=== PATIENT | female | born 1945 | race Caucasian/White ===

== ENCOUNTER 2016-09-15 19:28 | Inpatient (IN) | payer OTHER ==
[~2016-09-15] VITALS: Ht 165.1 cm; Wt 80.7 kg
[2016-09-15 21:43] VITALS: PULSE 68
[2016-09-15 21:48] VITALS: BMI 20.4
[2016-09-15 22:20] VITALS: BP 156/65; RESP 16
[2016-09-15] MEDS ORDERED: NYST1000 PO (22:51)
[2016-09-15] MEDS ORDERED: METR500T PO (22:51)
[2016-09-15] MEDS ORDERED: OXYC-209 PO (22:51)
[2016-09-15] MEDS ORDERED: LEVO500S PO (22:51)
[2016-09-16] VITALS (12 sets, daily range): BP systolic 117–173; BP diastolic 59–76; PULSE 70–86; RESP 16–20
[2016-09-16] MEDS ORDERED: NACL 0.9% 3 ML SYG IV SCH (00:30)
[2016-09-16] MEDS: SOD CHLORIDE 0.9% 1,000 ML IV SCH ×3 (00:52→22:58)
[2016-09-16 01:25] LABS: ADD SCAN DIFF NO
[2016-09-16 01:26] LABS: ABNORMAL IP MESSAGE 1; BASOPHILS % 0.7 % (0.0-2.0); HEMATOCRIT 30.5 % (37.0-47.0); HEMOGLOBIN 9.7 g/dl (12.0-16.0); LYMPHOCYTES # 0.6 10^3/ul (0.8-2.9); MEAN CORPUSCULAR HEMOGLOBIN 25.9 pg (29.0-33.0); MEAN CORPUSCULAR HGB CONC 31.8 g/dl (32.0-37.0); MEAN CORPUSCULAR VOLUME 81.6 fl (82.0-101.0); MEAN PLATELET VOLUME 8.8 fl (7.4-10.4); MONOCYTE # 0.5 10^3/ul (0.3-0.9); MONOCYTES % 12.8 % (0.0-11.0); NEUTROPHIL # 3.1 10^3/ul (1.6-7.5); NEUTROPHILS % 72.3 % (39.0-77.0); PLATELET COUNT 472 10^3/UL (140-415); RED BLOOD COUNT 3.74 10^6/ul (4.20-5.40); RED CELL DISTRIBUTION WIDTH 13.6 % (11.5-14.5); WHITE BLOOD COUNT 4.2 10^3/ul (4.8-10.8)
[2016-09-16 01:46] LABS: PARTIAL THROMBOPLASTIN TIME 32.3 Sec (25.0-35.0)
[2016-09-16 01:48] LABS: ALANINE AMINOTRANSFERASE 28 IU/L (13-69); ALBUMIN 2.7 g/dl (3.3-4.9); ALKALINE PHOSPHATASE 54 IU/L (42-121); ANION GAP 15 (8-16); ASPARTATE AMINO TRANSFERASE < 8 IU/L (15-46); BILIRUBIN,INDIRECT 0.1 mg/dl (0-1.1); BILIRUBIN,TOTAL 0.1 mg/dl (0.2-1.3); BLOOD UREA NITROGEN 9 mg/dl (7-20); CALCIUM 8.1 mg/dl (8.4-10.2); CARBON DIOXIDE 29 mmol/L (21-31); CHLORIDE 96 mmol/L (97-110); CREATININE 0.49 mg/dl (0.44-1.00); GLUCOSE 90 mg/dl (70-220); SODIUM 137 mmol/L (135-144); TOTAL PROTEIN 5.7 g/dl (6.1-8.1)
[2016-09-16 01:49] LABS: PT RATIO 1.5
[2016-09-16 01:53] LABS: POTASSIUM 2.9 mmol/L (3.5-5.1)
[2016-09-16] MEDS: POTASSIUM CHLORIDE 250 ML IVPB SCH ×2 (03:39→08:30)
[2016-09-16] MEDS: morphine 2 MG INJ IV PRN (03:48)
--- NOTE | 2016-09-16 04:21 | HP ---
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 Please see CT abdomen pelvis report for further details. At the current time will keep patient n.p.o. Will provide IV fluid hydration. Consult general surgery. Will provide IV antibiotics of Levaquin and Flagyl at this time. Patient is allergic to penicillins. IV pain control medications. #2 history of diverticulitis: As per patient she received a pigtail catheter secondary to her diverticulitis. Await general surgery recommendations. #3 DVT and GI prophylaxis: SCDs, Protonix Further treatment strategy will be implemented as per the clinical course Problems: HPI/ROS Admit Date/Time Admit Date/Time Sep 15, 2016 at 21:35 Hx of Present Illness Chief complaint: Abdominal pain This is a 70-year-old female who presented to the ED at [facility] complaining of abdominal pain. Patient is now postop day 3 of pigtail drain for diverticulitis with intramural axis is done at [facility]. She was presenting with stool coming from her pigtail catheter earlier in the morning on 09/15/2016. She had worsening abdominal pain and nonbilious vomiting. Her pain at that time was moderate to severe throughout the abdomen, nonradiating no fevers no dysuria and her last bowel movement was earlier that day no diarrhea no blood. Upon my examination currently at the bedside, patient does state that she has left-sided abdominal pain. She was hesitant to receive any IV pain medications as she was worried about getting addicted. After discussion regarding the pain medication she was agreeable to having them in small doses. Allergies: Penicillins Medications: See PETE CLEMENTS Const: As per HPI Eyes : No pain discharge or redness or change in visual acuity ENT: No pain, sore throat, congestion, congestion, dysphagia or discharge Respiratory: No shortness of breath, cough, sputum, wheezing, or pleuritic pain Cardiovascular: No chest pain, palpitation, PND, or edema GI : As per HPI Genitourinary: As per HPI Musculoskeletal: No joint pain, back pain, neck pain, restricted range of motion in neck or joints Skin: No rash, bruising or hives Neuro: No headache, dizziness, syncope, seizure, focal weakness Endocrine: No polyuria, polydipsia, temperature intolerance Psych: No hallucination, depression, anxiety or suicidal ideation PMH/Family/Social Past Medical History Diverticulitis, brain hemorrhage Past Surgical History Pigtail catheter, MACHINE [employer] shunt Family History Significant Family History: no pertinent family hx Social History Alcohol Use: none Smoking Status: Unknown if ever smoked Drug Use: none Exam/Review of Systems Vital Signs Vitals Vital Signs Date Time Temp Pulse Resp B/P Pulse Ox O2 Delivery O2 Flow Rate FiO2 09/16/16 04:04 72 09/16/16 00:05 98.7 16 131/63 97 Intake and Output 09/15/16 09/15/16 09/16/16 15:00 23:00 07:00 Output Total 5 ml Balance -5 ml Exam Exam General: Patient is well-developed female in mild distress from pain on palpation of the lower abdomen. HEENT: Atraumatic, normocephalic. The pupils are equal, round and reactive. Extraocular motor are intact Neck: Supple with full range of motion. No rigidity or meningismus Chest: Nontender Lungs: Clear to auscultation bilaterally no crackles rales or wheezing Heart: Normal S1-S2, Regular rhythm and rate. No overt murmur appreciated Abdomen: Left lower quadrant pigtail catheter and abdomen with stool seeping through opening in the skin, no bleeding, tenderness to palpation of the abdomen around the pigtail catheter Extremities: Normal to inspection, no edema no cyanosis Neurologic: Normal mental status, speech normal, cranial nerves II through XII are intact, motor and sensory are intact, no focal weakness Additional Comments Her EKG showed normal sinus rhythm with no evidence of ischemia or arrhythmia as per the ED physician at [facility] CT of the abdomen pelvis impression: #1 trace left pleural effusion #2 tiny left hepatic low-density lesion #3 possible narrowing of the sigmoid colon, with distention of the colon proximal to the site, as described in the CT scan. Correlation and follow-up care recommended. #4 hiatal hernia with partial intrathoracic extension of the stomach #5 minimal posterior pelvic free fluid indeterminant densities also noted in the central pelvis with associated drainage catheter as described above. Of note there is also fluid and gaseous distention of the colon identified from the cecum to the sigmoid segments, with relative narrowing or decompression along the sigmoid segment. Query possible sigmoid colonic mass, stricture or other similar etiology. Please see full CT report in the patient's chart. Labs Result Diagram: 09/16/16 0055 09/16/16 005 Medications Medications Current Medications Morphine Sulfate 2 mg 2 mg Q4H PRN IV PAIN Last administered on 09/16/16 03:48 ; Admin Dose 2 MG; Start 09/15/16 at 23:30 Sodium Chloride (NS) 1,000 ml @ 70 mls/hr [id number] IV Last administered on 09/16 00:52; Admin Dose 70 MLS/HR; Start 09/16/16 at 00:19 Ondansetron HCl (Zofran Inj) 4 mg Q6H PRN IV NAUSEA AND/OR VOMITING; Start 12/24 at 00:30 Acetaminophen (Tylenol Tab) 650 mg Q6H PRN PO PAIN LEVEL 1-3 OR FEVER; Start at 00:30 Pantoprazole 40 mg 40 mg DAILY@06 IV ; Start 09/16/16 at 06:00 Potassium Chloride (KCl 40 MEQ/250 ML NS) 250 ml @ 62.5 mls/hr Q4H IVPB Last administered on 09/16/16 03:39; Admin Dose 62.5 MLS/HR; Start 09/16/16 at 02:00 ; Stop 09/16/16 at 09:59 MAEGAN HPAM Sep 16, 2016 04:21
[2016-09-16] MEDS ORDERED: LEVOFLOXACIN 750MG/D5W (PMX) 150 ML IVPB ONE (04:30)
[2016-09-16] MEDS: PANTOPRAZOLE 40 MG INJ IV SCH (05:10)
[2016-09-16 06:01] LABS: INR 1.58
[2016-09-16] MEDS: metroNIDAZOLE 500 MG/NS (PMX) 100 ML IVPB SCH ×4 (06:46→22:58)
[2016-09-16] MEDS: ACETAMINOPHEN 325 MG TAB PO PRN ×3 (09:51→22:58)
--- NOTE | 2016-09-16 10:37 | CONS ---
Date/Time of Note Date/Time of Note DATE: 09/16/16 TIME: 10:31 Assessment/Plan Assessment/Plan Additional Assessment/Plan [facility] SUBSEQUENT INPATIENT CONSULTATION NOTE DATE OF CONSULTATION: 09/16/2016 PLACE OF SERVICE: [facility] fifth [facility] IMPRESSION AND PLAN: Patient is a very pleasant 70 y/o lady well known to me from hospitalization at [facility] on 09/07/16 for perforated sigmoid colon with contained abscess, s/p perc drain placement, medical stabilization and d/c home with plans to follow up as an outpatient, admitted as transfer from [facility] for abdominal pain and drainage of stool around the drain. Suspect drain blockage since non-con CT abd/pelvis [facility] 09/15/16 showed the drain to be in an adequate position. Note [employer] shunt appears to have also migrated to the pelvis (new since initial CT at [facility]). The patient is fortunately stable enough that she does not require any immediate surgical attention, but she certainly should stay in-house and get intravenous antimicrobials and undergo Interventional Radiology image guided drain interrogation as above. I explained the rationale behind my recommendations very carefully to the patient ( not in the room), including re-review of the spectrum of disease that diverticulitis entails with an emphasis on the potential need for urgent or emergent operation if the above is not performed. I also emphasized the importance of controlling this issue with antibiotics and drainage or perhaps if surgery given the presence of her ventriculoperitoneal shunt in the right upper quadrant. I do not believe that there is undue risk of this being infected if we were able to do intravenous antimicrobials and we have a working drain. I answered all the patient's questions to the best of my ability, and she appeared to understand and agreed with the plan. Thank you again for allowing us to participate in the care of this very pleasant lady and her wonderful family. If there are any questions, please feel free to contact me at [phone]. UPDATED CLINICAL SUMMARY: A very pleasant 70-year-old lady without significant known past medical history other than a [employer] shunt placement many years ago which she did not remember or report, presenting with what appears to be a sigmoid colon abscess or pericolonic abscess, which seemed to be a complication of diverticulitis. S/p IR drainage 09/09/16 with removal of 20 cc pus and placement of a 10 Fr. pigtail catheter at [facility]. D/c home 09/12/16. Re-presented to [place] [facility] 09/15/16 after being diverted from [facility] (due to internal disaster diversion) where CT was done showing adequate placement of the percutaneous drain near the sigmoid colon and decompressed sigmoid colon abscess, no obvious free air or significant spillage of stool in the abdominal cavity, and incidental finding of tail of the [employer] shunt in the pelvis (new from right upper quadrant position of the same drain on the CT scan at [facility]). Transfer to [facility] 09/15/2016 for further cares. COMORBIDITIES: 1. Status post ventriculoperitoneal shunt placement. 2. S/p IR drainage 09/09/16 with removal of 20 cc pus and placement of a 10 Fr. pigtail catheter at [facility]. HISTORY OF PRESENT ILLNESS: The patient is a very pleasant 70-year-old lady with above-mentioned comorbidities, whom we were kindly asked to consult regarding management of diverticular abscess. Initially, the patient had presented to an urgent care early September 2016 because of abdominal pain and was then admitted through ED to [facility] where she underwent IR drainage 09/09/16 with removal of 20 cc pus and placement of a 10 Fr. pigtail catheter at [facility]. D/c home 09/12/16. Re-presented to [facility] after being diverted from [facility] (due to internal disaster diversion) where CT was done showing adequate placement of the percutaneous drain near the sigmoid colon and decompressed sigmoid colon abscess, no obvious free air or significant spillage of stool in the abdominal cavity, and incidental finding of tail of the [employer] shunt in the pelvis (new from right upper quadrant position of the same drain on the CT scan at [facility]). Transfer to [facility] 09/15/2016 for further cares. During my visit, the patient had minimal complaints and mainly focused on some abdominal pain in the lower pelvic region. No nausea or vomiting. No reported diarrhea or constipation or blood in the stool or urine. She had been otherwise in her usual healthy state and she did not report any other major medical problems. Only new issue was drainage of stool around her perc drain and reported small amounts through the drain itself. No fevers or chills, no n/v/d, no sob or CP, and no other major complaints. Pain at times 10/10, mainly in lower pelvis without radiation, no alleviating or mitigating factors identified. ALLERGIES: PENICILLIN WITH UNKNOWN REACTION. MEDICATIONS: At home, none. Was discharged from [facility] with plans for outpatient antimicrobial therapy. Also see EMR. SOCIAL HISTORY: The patient lives with her . No reported smoking, drinking, or intravenous drug use. FAMILY HISTORY: There is no mention of major medical, surgical, or oncologic problems in the family. REVIEW OF SYSTEMS: Other than the above mentioned, there are no other pertinent positives or pertinent negatives in the complete 14-point review of systems. PHYSICAL EXAMINATION GENERAL: The patient appears to be a very pleasant lady of perhaps [place] or Eastern descent sitting up in her bed appearing stated age, and in no acute distress. VITAL SIGNS: BMI 20.4, temperature 98.3, blood pressure 132/66, pulse 79, respiratory rate 18, pulse oximetry 96% on room air. HEENT: Head is normocephalic and atraumatic. Extraocular muscles and hearing are grossly intact bilaterally and symmetrically. Sclerae are nonicteric. Oral cavity is clear and oral mucosa appeared to be pink and moist. Dentition is relatively fair. NECK: Supple. There is no lymphadenopathy or JVD. There is no submental, submandibular, or supraclavicular lymphadenopathy. CHEST: Chest rises symmetrically with each breath and breathing is comfortable. There are no audible wheezes, rales, or rhonchi on the gross exam. Pulse is regular and palpable on the right wrist. Carotid pulses are palpable bilaterally and symmetrically in the neck. Lower extremities contain no pitting edema bilaterally and symmetrically. Capillary refill is normal. ABDOMEN: Soft, nondistended, and mildly tender to palpation in the left lower quadrant and upper pelvis area. There is no evidence of organomegaly, caput medusae, engorged subcutaneous veins, or ascites. There is no evidence of peritoneal signs or guarding. Left lower pelvic drain site with slight amount of stool within the dressing and appearing to be coming from around the drain itself. Small amount of purulent fluid within the drain bag. SKIN: Skin otherwise appears to be pink and feels warm to touch. NEUROLOGIC: Patient is awake, alert, and follows commands appropriately. LABORATORY VALUES: White blood cell count 4.2, hemoglobin 9.7, platelets 472, electrolytes normal with only abnormality of potassium of 2.9, total bilirubin 0.1, AST less than 8, ALT 28, alkaline phosphatase 54, albumin 2.7, INR 1.58, urinalysis showed no nitrite and trace leukocyte esterase positivity. IMAGING: Reviewed above. Note that I personally reviewed all the available images (including the CD from [facility]) and I agree in general with their overall reported findings. Summary of reported images from [facility]: Radiology - Full Interpretation, This Encounter Name: ALBA PRATT Account: [id number] : 1945 Result Date: 09/07/16 15:39 Verified By: Vilma Leiva MD at 09/07/16 16:01 Report : XR Chest 1 View PROCEDURE: XR Chest. CLINICAL INDICATION: Preop TECHNIQUE: An AP view of the chest was obtained. COMPARISON: No prior exam is available for comparison. FINDINGS: Intraperitoneal shunt tubing is seen along the right neck and chest wall. There is prominence of the interstitial markings. No pleural effusion or pneumothorax is seen. The cardiomediastinal silhouette is within normal limits for size. Calcifications are seen within the aortic arch. The osseous structures demonstrate senescent changes. IMPRESSION: 1. Mild prominence of the interstitial markings, may reflect mild underlying interstitial edema or chronic lung changes. 2. Aortic atherosclerosis. RPTAT: 09/07/16 16:01 +++++++++++++++++++++++++++++++++++++++++++++++++++++++ Result Date: 09/07/16 12:23 Verified By: Vilma Leiva MD at 09/07/16 13:10 Report : CT Abdomen+Pelvis w IV Con PROCEDURE: CT Abdomen and Pelvis with contrast. CLINICAL INDICATION: Abdominal pain. TECHNIQUE: CT scan of the abdomen and pelvis with contrast was performed utilizing axial tomographic images from the domes the diaphragm to the symphysis pubis. The patient was scanned post uncomplicated intravenous administration of 100 cc of Isovue 300. Coronal and sagittal reformatted images were obtained from the axial source images. Images were reviewed on a high-resolution PACS workstation. The total exam CTDI equals 7.51, 6.99 mGy and the total exam DLP equals 384.48 mGy-cm. One or more of the following dose reduction techniques were used: Automated exposure control, adjustment of the mA and / or kV according to patient size, or use of iterative reconstruction technique. COMPARISON: None. FINDINGS: The lung bases demonstrate mild bilateral basilar atelectatic changes. The liver is normal in size and contour. No focal intrahepatic masses are identified. There is no intra or extrahepatic biliary dilatation. The gallbladder is unremarkable by CT criteria. The spleen, pancreas, and adrenal glands are unremarkable. The kidneys are symmetric in size and demonstrate normal enhancement. No hydronephrosis or hydroureter is identified. There is a 1.5 cm cyst within the upper pole of the left kidney. The urinary bladder is unremarkable. Tubing from a ventriculoperitoneal shunt terminates within the right lower quadrant. The bowel demonstrates normal course and caliber. There is no evidence of bowel obstruction. There is mucosal thickening of the gastric antrum. There is focal mucosal thickening of the sigmoid colon with pericolonic fat stranding. There is air fluid collection adjacent to the sigmoid colon measuring 4.1 x 2.8 x 4.2 cm. There is small free fluid in the pelvis. There is a small focus of free air along the posterior margin of the distal sigmoid colon. The appendix is normal in appearance. The uterus and adnexa are unremarkable. No intraperitoneal free fluid, free air or abscess identified. No retroperitoneal, mesenteric, or inguinal adenopathy is identified. The abdominal aorta and major branching vessels are normal in caliber and demonstrate vascular calcifications. The osseous structures demonstrate degenerative changes of the spine at L4-5 with intervertebral disk space narrowing and discogenic endplate changes. There is anterior fusion of the left sacroiliac joint and posterior fusion of the right sacroiliac joint. No significant subcutaneous soft tissue abnormality is identified. IMPRESSION: 1. Mucosal thickening of the distal sigmoid colon with adjacent mesenteric fat stranding, may reflect colitis or diverticulitis. No definite diverticula are identified. There is an adjacent 4.1 x 2.8 x 4.2 cm abscess, suggesting focal perforation. There is a tiny focus of extraluminal free air along the posterior margin of the sigmoid colon. 2. Small free fluid in the pelvis. 3. Ventriculoperitoneal shunt tubing. 4. 1.5 cm cyst in the upper pole left kidney. 5. Fusion of the sacroiliac joints. 6. Senescent changes with aortic atherosclerosis and degenerative changes of the spine. RPTAT: 09/07/16 13:10 +++++++++++++++++++++++++++++++++++++++++++++++++++++++ Preliminary consult note (done morning of 09/16/2016): Very pleasant 70 y/o lady well known to me from hospitalization at [facility] last week for perforated sigmoid colon with contained abscess, s/p perc drain placement, medical stabilization and d/c home with plans to follow up as an outpatient, admitted as transfer from [facility] for abdominal pain and drainage of stool around the drain. Suspect drain blockage since non-con CT abd/ pelvis [facility] 09/15/16 showed the drain to be in an adequate position. Note [employer] shunt appears to have also migrated to the pelvis (new since initial CT at [facility]). Recommendations: 1. Keep inhouse 2. Keep NPO for now 3. Drain check with possible need for exchange +/- upsizing 4. Neurosurgical consultation regarding [employer] shunt management (? possibility of removal in case it becomes infected, or patient requires surgery that has chance of contaminating the drain since it is freely mobile in the abdominal cavity). Please let me know who the political consultant is and I will be happy to discuss. 5. Cont broad spec antimicrobials 6. If patient does not get fully treated with the drain, will attempt to do gentle bowel prep with semi-elective sigmoid colectomy with hopes of being able to avoid an ostomy Thank you for allowing me to continue to be involved in the care of this very nice lady and her wonderful family. Consultation Date/Type/Reason Admit Date/Time Sep 15, 2016 at 21:35 Initial Consult Date Exam/Review of Systems Vital Signs Vitals Vital Signs Date Time Temp Pulse Resp B/P Pulse Ox O2 Delivery O2 Flow Rate FiO2 09/16/16 08:20 86 09/16/16 07:59 98.3 18 132/66 96 Intake and Output 09/15/16 09/15/1617 15:00 23:00 07:00 Intake Total 342.5 ml Output Total 5 ml 0 ml Balance -5 ml 342.5 ml Results Result Diagram: 09/16/16 0055 09/16/16 0055 Results 24 hrs Laboratory Tests Test 09/16/16 00:55 White Blood Count 4.2 L Red Blood Count 3.74 L Hemoglobin 9.7 L Hematocrit 30.5 L Mean Corpuscular Volume 81.6 L Mean Corpuscular Hemoglobin 25.9 L Mean Corpuscular Hemoglobin Concent 31.8 L Red Cell Distribution Width 13.6 Platelet Count 472 H Mean Platelet Volume 8.8 Neutrophils % 72.3 Lymphocytes % 13.0 L Monocytes % 12.8 H Eosinophils % 0.0 Basophils % 0.7 Nucleated Red Blood Cells % 0.0 Neutrophils # 3.1 Lymphocytes # 0.6 L Monocytes # 0.5 Eosinophils # 0.0 Basophils # 0.0 Nucleated Red Blood Cells # 0.0 Prothrombin Time 19.0 H Prothrombin Time Ratio 1.5 INR International Normalized Ratio 1.58 Activated Partial Thromboplast Time 32.3 Sodium Level 137 Potassium Level 2.9 *L Chloride Level 96 L Carbon Dioxide Level 29 Anion Gap 15 Blood Urea Nitrogen 9 Creatinine 0.49 Glucose Level 90 Calcium Level 8.1 L Total Bilirubin 0.1 L Direct Bilirubin 0.00 Indirect Bilirubin 0.1 Aspartate Amino Transf (AST/SGOT) < 8 L Alanine Aminotransferase (ALT/SGPT) 28 Alkaline Phosphatase 54 Total Protein 5.7 L Albumin 2.7 L Globulin 3.00 Albumin/Globulin Ratio 0.90 Thyroid Stimulating Hormone (TSH) 0.800 Medications Medications Current Medications Morphine Sulfate 2 mg 2 mg Q4H PRN IV PAIN Last administered on 09/16/16 03:48 ; Admin Dose 2 MG; Start 09/15/16 at 23:30 Sodium Chloride (NS) 1,000 ml @ 70 mls/hr [id number] IV Last administered on 09/16 00:52; Admin Dose 70 MLS/HR; Start 09/16/16 at 00:19 Ondansetron HCl (Zofran Inj) 4 mg Q6H PRN IV NAUSEA AND/OR VOMITING; Start 12/24 at 00:30 Acetaminophen (Tylenol Tab) 650 mg Q6H PRN PO PAIN LEVEL 1-3 OR FEVER Last administered on 09/16/16 09:51; Admin Dose 650 MG; Start 09/16/16 at 00:30 Pantoprazole 40 mg 40 mg DAILY@06 IV Last administered on 09/16/16 05:10; Admin Dose 40 MG; Start 09/16/16 at 06:00 Metronidazole (Flagyl 500 Mg (Pmx)) 100 ml @ 100 mls/hr Q6 IVPB Last administered on 09/16/16 06:46; Admin Dose 100 MLS/HR; Start 09/16/16 at 06:00 ALEXSANDER DUARTE M.D. Sep 16, 2016 10:36
[2016-09-16 12:40] LABS: ADD UMIC YES; UR ASCORBIC ACID NEGATIVE (NEGATIVE); UR BACTERIA FEW /HPF (NONE SEEN); UR BILIRUBIN (Dip) 2+ mg/dL (NEGATIVE); UR BLOOD (Dip) NEGATIVE (NEGATIVE); UR CLARITY CLEAR (CLEAR); UR COLOR AMBER (YELLOW); UR GLUCOSE (Dip) NEGATIVE (NEGATIVE); UR KETONES (Dip) 1+ mg/dL (NEGATIVE); UR LEUKOCYTE ESTERASE (Dip) TRACE Leu/ul (NEGATIVE); UR MUCUS MANY /HPF (NONE SEEN); UR NITRITE (Dip) NEGATIVE (NEGATIVE); UR RBC 1 /HPF (0-5); UR SPECIFIC GRAVITY (Dip) 1.024 (1.003-1.030); UR SQUAMOUS EPITHELIAL CELL FEW /HPF (FEW); UR TOTAL PROTEIN (Dip) NEGATIVE (NEGATIVE); UR UROBILINOGEN (Dip) NEGATIVE (NEGATIVE)
[2016-09-17] VITALS (13 sets, daily range): BP systolic 148–169; BP diastolic 66–83; PULSE 60–73; RESP 16–19
[2016-09-17] MEDS: ACETAMINOPHEN 325 MG TAB PO PRN ×2 (04:31→10:06)
[2016-09-17] MEDS: metroNIDAZOLE 500 MG/NS (PMX) 100 ML IVPB SCH ×4 (06:24→23:56)
[2016-09-17] MEDS: PANTOPRAZOLE 40 MG INJ IV SCH (06:27)
--- NOTE | 2016-09-17 14:25 | PN ---
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: Neurosurgery notified of presence of intraabd infection and possible risk of infection of COMMUNICATIONS ATTENDANT shunt, f/u recs DVT and GI prophylaxis: SCDs, Protonix Further treatment strategy will be implemented as per the clinical course Subjective 24 Hr Interval Summary Free Text/Dictation patient still having abd pain, but does not want narcotics Gastrointestinal: pain Exam/Review of Systems Vital Signs Vitals Vital Signs Date Time Temp Pulse Resp B/P Pulse Ox O2 Delivery O2 Flow Rate FiO2 09/17/16 12:00 66 09/17/16 11:34 97.7 16 169/83 96 Intake and Output 09/16/16 09/16/16 09/17/16 15:00 23:00 07:00 Intake Total 1190 ml Balance 1190 ml Exam Constitutional: alert, frail, oriented Psych: anxiety Head: atraumatic, normocephalic Eyes: PERRL, No icteric ENMT: No mucosa pink and moist (dry) Respiratory: clear to auscultation, diminished breath sounds Cardiovascular: regular rate and rhythm, No murmurs/extra sounds Gastrointestinal: distended, other (L sided drain with minimal brownish fluid in bag), soft Extremities: No edema Neurological: lethargic Results Result Diagram: 09/16/16 00509/16/16 005 Medications Medications Current Medications Morphine Sulfate 2 mg 2 mg Q4H PRN IV PAIN Last administered on 09/16/16 03:48 ; Admin Dose 2 MG; Start 09/15/16 at 23:30 Sodium Chloride (NS) 1,000 ml @ 70 mls/hr [id number] IV Last administered on 09/16 22:58; Admin Dose 70 MLS/HR; Start 09/16/16 at 00:19 Ondansetron HCl (Zofran Inj) 4 mg Q6H PRN IV NAUSEA AND/OR VOMITING; Start 12/24 at 00:30 Acetaminophen (Tylenol Tab) 650 mg Q6H PRN PO PAIN LEVEL 1-3 OR FEVER Last administered on 09/17/16 10:06; Admin Dose 650 MG; Start 09/16/16 at 00:30 Pantoprazole 40 mg 40 mg DAILY@06 IV Last administered on 09/17/16 06:27; Admin Dose 40 MG; Start 09/16/16 at 06:00 Metronidazole (Flagyl 500 Mg (Pmx)) 100 ml @ 100 mls/hr Q6 IVPB Last administered on 09/17/16 11:57; Admin Dose 100 MLS/HR; Start 09/16/16 at 06:00 AUNDREA ARMENDARIZ Sep 17, 2016 14:25
[2016-09-17] MEDS: KETOROLAC 15 MG INJ IV PRN ×2 (15:06→23:56)
[2016-09-17 15:27] LABS: ADD SCAN DIFF NO
[2016-09-17 15:33] LABS: ABNORMAL IP MESSAGE 1; HEMATOCRIT 32.6 % (37.0-47.0); HEMOGLOBIN 10.8 g/dl (12.0-16.0); MEAN CORPUSCULAR HGB CONC 33.1 g/dl (32.0-37.0); MEAN CORPUSCULAR VOLUME 81.5 fl (82.0-101.0); MEAN PLATELET VOLUME 8.8 fl (7.4-10.4); PLATELET COUNT 520 10^3/UL (140-415); RED CELL DISTRIBUTION WIDTH 14.2 % (11.5-14.5); WHITE BLOOD COUNT 3.2 10^3/ul (4.8-10.8)
[2016-09-17] MEDS ORDERED: IOHEXOL 300MG/ML 30 ML BTL ONE ×2 (15:43)
[2016-09-17] MEDS ORDERED: LIDOCAINE 1% (MDV) 20 ML INJ ONE (15:48)
[2016-09-17 15:57] LABS: ALANINE AMINOTRANSFERASE 26 IU/L (13-69); ALBUMIN 2.8 g/dl (3.3-4.9); ALKALINE PHOSPHATASE 48 IU/L (42-121); ANION GAP 14 (8-16); ASPARTATE AMINO TRANSFERASE < 8 IU/L (15-46); BLOOD UREA NITROGEN 11 mg/dl (7-20); CARBON DIOXIDE 20 mmol/L (21-31); CHLORIDE 106 mmol/L (97-110); GLUCOSE 106 mg/dl (70-220); MAGNESIUM 2.1 mg/dl (1.7-2.5); PHOSPHORUS 3.8 mg/dl (2.5-4.9); POTASSIUM 3.4 mmol/L (3.5-5.1); SODIUM 137 mmol/L (135-144); TOTAL PROTEIN 5.9 g/dl (6.1-8.1)
[2016-09-17 16:21] LABS: LYMPHOCYTES # 0.4 10^3/ul (0.8-2.9); MONOCYTE # 0.5 10^3/ul (0.3-0.9); NEUTROPHIL # 2.1 10^3/ul (1.6-7.5)
[2016-09-17] MEDS: SOD CHLORIDE 0.9% 1,000 ML IV SCH (17:18)
[2016-09-17] MEDS: CIPROFLOXACIN 400MG/D5W 200 ML IVPB SCH (17:18)
--- NOTE | 2016-09-17 21:10 | PN ---
Date/Time of Note Date/Time of Note DATE: 09/17/16 TIME: 15:45 Assessment/Plan Lines/Catheters IV Catheter Type (from Nrs): Peripheral IV Shore in Place (from Nrs): No Assessment/Plan Assessment/Plan [facility] Progress Note Date of Service: 09/17/16 Today's Impression & Plan: Overall stable with perforated sigmoid colon. Awaiting drain interrogation/ upsizing. No indication for acute surgical intervention. Surgery if drainage unsuccessful. With above assessment, I've recommended the following for today: 1. Drain interrogation today 2. Keep inhouse 3. Labs in am 4. Liquid diet post drain interrogation Thank you again for your great care of this very pleasant patient and wonderful family. If there are any questions, please feel free to call me at [phone]. Disclaimer: Inadvertent spelling or grammatical errors are likely due to EHR/ dictation software use and do not reflect on the overall quality of patient care. Updated Clinical Summary: A very pleasant 70-year-old lady without significant known past medical history other than a TIRE BAGGER shunt placement many years ago which she did not remember or report, presenting with what appears to be a sigmoid colon abscess or pericolonic abscess, which seemed to be a complication of diverticulitis. S/p IR drainage 09/09/16 with removal of 20 cc pus and placement of a 10 Fr. pigtail catheter at [facility]. D/c home 09/12/16. Re-presented to [place] ED 09/15/16 after being diverted from [facility] (due to internal disaster diversion) where CT was done showing adequate placement of the percutaneous drain near the sigmoid colon and decompressed sigmoid colon abscess, no obvious free air or significant spillage of stool in the abdominal cavity, and incidental finding of tail of the TIRE BAGGER shunt in the pelvis (new from right upper quadrant position of the same drain on the CT scan at [facility]). Transfer to [facility] 09/15/2016 for further cares. COMORBIDITIES: 1. Status post ventriculoperitoneal shunt placement. 2. S/p IR drainage 09/09/16 with removal of 20 cc pus and placement of a 10 Fr. pigtail catheter at [facility]. Subjective: No major events or complaints; no major abd pain and under control with medications; no n/v/d; no sob or cp; - flatus; - BM; minimal activity Objective: Vitals: See below Exam: GENERAL: On exam, the patient was laying in bed and appeared to be comfortable and in no acute distress. ABDOMEN: Soft, minimally tender and nondistended. Drain with minimal purulent fluid in the bag. There are no peritoneal signs or guarding. SKIN: Skin appears to be pink and feels warm to touch. NEUROLOGIC: Patient is awake, alert, and follows commands appropriately. Exam/Review of Systems Vital Signs Vitals Vital Signs Date Time Temp Pulse Resp B/P Pulse Ox O2 Delivery O2 Flow Rate FiO2 09/17/16 20:08 98.4 75 18 148/66 97 Intake and Output 09/16/16 09/16/16 09/17/16 15:00 23:00 07:00 Intake Total 1190 ml Balance 1190 ml Results Result Diagram: 09/17/16 1508 09/17/16 1508 ALEXSANDER DUARTE M.D. Sep 17, 2016 21:10
[2016-09-17] MEDS ORDERED: POTASSIUM CHLORIDE 250 ML IVPB ONE (21:30)
[2016-09-18] VITALS (11 sets, daily range): BP systolic 129–165; BP diastolic 61–88; PULSE 68–82; RESP 16–20
[2016-09-18] MEDS: CIPROFLOXACIN 400MG/D5W 200 ML IVPB SCH ×3 (00:02→21:29)
[2016-09-18] MEDS: metroNIDAZOLE 500 MG/NS (PMX) 100 ML IVPB SCH ×3 (05:36→17:30)
[2016-09-18] MEDS: PANTOPRAZOLE 40 MG INJ IV SCH (05:36)
[2016-09-18 07:08] LABS: ADD SCAN DIFF NO
[2016-09-18 07:14] LABS: ABNORMAL IP MESSAGE 1; HEMATOCRIT 33.4 % (37.0-47.0); HEMOGLOBIN 10.6 g/dl (12.0-16.0); MEAN CORPUSCULAR HEMOGLOBIN 25.7 pg (29.0-33.0); MEAN CORPUSCULAR HGB CONC 31.7 g/dl (32.0-37.0); MEAN CORPUSCULAR VOLUME 81.1 fl (82.0-101.0); MEAN PLATELET VOLUME 8.8 fl (7.4-10.4); PLATELET COUNT 504 10^3/UL (140-415); RED BLOOD COUNT 4.12 10^6/ul (4.20-5.40); RED CELL DISTRIBUTION WIDTH 14.5 % (11.5-14.5); WHITE BLOOD COUNT 3.7 10^3/ul (4.8-10.8)
[2016-09-18 07:32] LABS: IRON 26 ug/dl (35-150)
[2016-09-18 07:35] LABS: CALCIUM 8.1 mg/dl (8.4-10.2); CREATININE 0.51 mg/dl (0.44-1.00); POTASSIUM 3.5 mmol/L (3.5-5.1)
[2016-09-18 07:41] LABS: TOTAL IRON BINDING CAPACITY 154 ug/dl (241-421)
[2016-09-18] MEDS: KETOROLAC 15 MG INJ IV PRN ×3 (07:49→23:20)
[2016-09-18 09:31] LABS: BURR CELLS 1+; LYMPHOCYTES # 0.3 10^3/ul (0.8-2.9); MONOCYTE # 0.4 10^3/ul (0.3-0.9); MYELOCYTES # 0.1
[2016-09-18] MEDS: SOD CHLORIDE 0.9% 1,000 ML IV SCH ×2 (09:46→23:49)
--- NOTE | 2016-09-18 12:08 | PN ---
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 Patient states she went down for drain interrogation yesterday, but there's no report yet. Exam/Review of Systems Vital Signs Vitals Vital Signs Date Time Temp Pulse Resp B/P Pulse Ox O2 Delivery O2 Flow Rate FiO2 09/18/16 11:16 98.1 75 18 138/70 95 Intake and Output 09/17/16 09/17/16 09/18/16 15:00 23:00 07:00 Intake Total 0 ml 1400 ml 700 ml Output Total 3 ml 3 ml Balance -3 ml 1397 ml 700 ml Exam Constitutional: alert, frail, oriented Psych: anxiety Head: atraumatic, normocephalic Eyes: PERRL, No icteric ENMT: No mucosa pink and moist (dry) Respiratory: clear to auscultation, diminished breath sounds Cardiovascular: regular rate and rhythm, No murmurs/extra sounds Gastrointestinal: distended, other (L sided drain with minimal brownish fluid in bag), soft Extremities: No edema Neurological: lethargic Results Result Diagram: 09/18/16 0635 09/18/16 0635 Results 24 hrs Laboratory Tests Test 09/17/16 15:08 09/18/16 06:35 White Blood Count 3.2 #L 3.7 L Red Blood Count 4.00 L 4.12 L Hemoglobin 10.8 L 10.6 L Hematocrit 32.6 L 33.4 L Mean Corpuscular Volume 81.5 L 81.1 L Mean Corpuscular Hemoglobin 27.0 L 25.7 L Mean Corpuscular Hemoglobin Concent 33.1 31.7 L Red Cell Distribution Width 14.2 14.5 Platelet Count 520 H 504 H Mean Platelet Volume 8.8 8.8 Neutrophils % 65.0 55.0 Band Neutrophils % 6.0 H 18.0 H Lymphocytes % 13.0 L 9.0 L Monocytes % 15.0 H 10.0 Eosinophils % Metamyelocytes % 1.0 H 4.0 H Neutrophils # 2.1 2.0 Lymphocytes # 0.4 L 0.3 L Monocytes # 0.5 0.4 Eosinophils # Metamyelocytes # 0.0 0.1 Sodium Level 137 137 Potassium Level 3.4 L 3.5 Chloride Level 106 # 105 Carbon Dioxide Level 20 L 24 Anion Gap 14 12 Blood Urea Nitrogen 11 10 Creatinine 0.50 0.51 Glucose Level 106 112 Calcium Level 8.0 L 8.1 L Phosphorus Level 3.8 Magnesium Level 2.1 Total Bilirubin 0.0 L Direct Bilirubin 0.00 Indirect Bilirubin 0.0 Aspartate Amino Transf (AST/SGOT) < 8 L Alanine Aminotransferase (ALT/SGPT) 26 Alkaline Phosphatase 48 Total Protein 5.9 L Albumin 2.8 L Globulin 3.10 Albumin/Globulin Ratio 0.90 Myelocytes % 4.0 H Nucleated Red Blood Cells % 1.0 H Myelocytes # 0.1 Differential Comment MANUAL DIFF Large Platelets FEW Iron Level 26 L Total Iron Binding Capacity 154 L Percent Iron Saturation 17 L Medications Medications Current Medications Morphine Sulfate 2 mg 2 mg Q4H PRN IV PAIN Last administered on 09/16/16 03:48 ; Admin Dose 2 MG; Start 09/15/16 at 23:30 Sodium Chloride (NS) 1,000 ml @ 70 mls/hr [id number] IV Last administered on 09/18 09:46; Admin Dose 70 MLS/HR; Start 09/16/16 at 00:19 Ondansetron HCl (Zofran Inj) 4 mg Q6H PRN IV NAUSEA AND/OR VOMITING; Start 12/24 at 00:30 Acetaminophen (Tylenol Tab) 650 mg Q6H PRN PO PAIN LEVEL 1-3 OR FEVER Last administered on 09/17/16 10:06; Admin Dose 650 MG; Start 09/16/16 at 00:30 Pantoprazole 40 mg 40 mg DAILY@06 IV Last administered on 09/18/16 05:36; Admin Dose 40 MG; Start 09/16/16 at 06:00 Metronidazole (Flagyl 500 Mg (Pmx)) 100 ml @ 100 mls/hr Q6 IVPB Last administered on 09/18/16 05:36; Admin Dose 100 MLS/HR; Start 09/16/16 at 06:00 Ketorolac Tromethamine 15 mg 15 mg Q6H PRN IV PAIN Last administered on 07:49; Admin Dose 15 MG; Start 09/17/16 at 14:30; Stop 09/20/16 at 14:29 Ciprofloxacin/ Dextrose (Cipro Ivpb) 200 ml @ 200 mls/hr Q12 IVPB Last administered on 09/18/16 09:45; Admin Dose 200 MLS/HR; Start 09/17/16 at 16:00 AUNDREA ARMENDARIZ Sep 18, 2016 12:08
--- NOTE | 2016-09-18 13:04 | RADRPT ---
PROCEDURE: Pelvic abscess drainage catheter exchange with fluoroscopy. CLINICAL INDICATION: The existing pelvic abscess drainage catheter is not functioning. TECHNIQUE: 9 images were obtained during the procedure. Fluoroscopy time is 0.1 minutes. Informed consent was obtained. The procedure, risks, benefits, complications and alternatives were explained to the patient. Risks including bleeding and infection were explained. The patient understood and w as willing to proceed. A procedural pause was performed. The patient's name, date of , and pro cedure to be performed were verified. Using local anesthetic, sterile technique and fluoroscopic guidance, a 0.035-inch Amplatz guidewire was advanced through the existing drainage catheter into the fluid collection. 20 ml of the Omnipaq ue-300 iodinated contrast was injected into the fluid collection confirming position. The existing drainage catheter was removed. A 12 [place] multipurpose drainage catheter was advanced over the gu idewire into the fluid collection. The guidewire was removed. Additional imaging and contrast inje ction was performed confirming position. The catheter was then sutured to the patient's skin with 2 -0 silk. Approximately 20 ml of purulent fluid was aspirated. The catheter was connected to a drai nage bag. A dressing was applied. The patient tolerated procedure well. COMPARISON: None. FINDINGS: Final images demonstrate the drainage catheter in satisfactory position within the pelvic abscess. Contrast injection demonstrates a fistula to the sigmoid colon. IMPRESSION: 1. Successful fluoroscopic guided pelvic abscess drainage catheter replacement. RPTAT: QQ .Beto Cortes MD, Date Time Electronically viewed and signed by .Beto Cortes MD, on 09/18/2016 13:03 .R/
[2016-09-18] MEDS ORDERED: POTASSIUM CHLORIDE 250 ML IVPB ONE (13:30)
--- NOTE | 2016-09-18 13:47 | PN ---
Date/Time of Note Date/Time of Note DATE: 09/18/16 TIME: 13:40 Assessment/Plan Lines/Catheters IV Catheter Type (from [facility]): Saline Lock Shore in Place (from [facility]): No Assessment/Plan Assessment/Plan [facility] Progress Note Date of Service: 09/18/16 Today's Impression & Plan: Overall stable with perforated sigmoid colon. S/p upsizing of drain to 12 Fr pigtail on 09/17/16 (communication with colon demonstrated; no obvious free communication to rest of peritoneal space). No indication for acute surgical intervention. Still with leakage of stool/pus around the drain. Clinically appears improved. Will need a few days to assess success of drain in management of the sigmoid localized perforation. Surgery if drainage unsuccessful. D/c with Dr. Cortes and the patient. Answered all questions. With above assessment, I've recommended the following for today: 1. Drain cares 2. Keep inhouse 3. Labs in am 4. Advance diet as tolerated Thank you again for your great care of this very pleasant patient and wonderful family. If there are any questions, please feel free to call me at [phone]. Nature of presenting problem: High severity Disclaimer: Inadvertent spelling or grammatical errors are likely due to EHR/ dictation software use and do not reflect on the overall quality of patient care. Updated Clinical Summary: A very pleasant 70-year-old lady without significant known past medical history other than a CABLE REELER shunt placement many years ago which she did not remember or report, presenting with what appears to be a sigmoid colon abscess or pericolonic abscess, which seemed to be a complication of diverticulitis. S/p IR drainage 09/09/16 with removal of 20 cc pus and placement of a 10 Fr. pigtail catheter at [facility]. D/c home 09/12/16. Re-presented to [place] ED 09/15/16 after being diverted from [facility] (due to internal disaster diversion) where CT was done showing adequate placement of the percutaneous drain near the sigmoid colon and decompressed sigmoid colon abscess, no obvious free air or significant spillage of stool in the abdominal cavity, and incidental finding of tail of the CABLE REELER shunt in the pelvis (new from right upper quadrant position of the same drain on the CT scan at [facility]). Transfer to [facility] 09/15/2016 for further cares. S/p upsizing of drain to 12 Fr pigtail on 09/17/16 (communication with colon demonstrated; no obvious free communication to rest of peritoneal space). COMORBIDITIES: 1. Status post ventriculoperitoneal shunt placement. 2. S/p IR drainage 09/09/16 with removal of 20 cc pus and placement of a 10 Fr. pigtail catheter at [facility]. 3. Readmission to [facility] 09/15/16 with upsizing of drain to 12 Fr pigtail on 09/17/16 (communication with colon demonstrated; no obvious free communication to rest of peritoneal space) Subjective: No major events or complaints; less major abd pain compared to yesterday and under control with medications; no n/v/d; no sob or cp; + flatus; + small BM; minimal activity Objective: Vitals: See below Exam: GENERAL: On exam, the patient was laying in bed and appeared to be comfortable and in no acute distress. ABDOMEN: Soft, minimally tender and nondistended. Drain with minimal purulent fluid in the bag and small brown/black output around the drain site. There are no peritoneal signs or guarding. SKIN: Skin appears to be pink and feels warm to touch. NEUROLOGIC: Patient is awake, alert, and follows commands appropriately. Exam/Review of Systems Vital Signs Vitals Vital Signs Date Time Temp Pulse Resp B/P Pulse Ox O2 Delivery O2 Flow Rate FiO2 09/18/16 12:18 68 09/18/16 11:16 98.1 18 138/70 95 Intake and Output 09/17/16 09/17/16 09/18/16 15:00 23:00 07:00 Intake Total 0 ml 1400 ml 700 ml Output Total 3 ml 3 ml Balance -3 ml 1397 ml 700 ml Results Result Diagram: 09/18/16 0635 09/18/16 0635 ALEXSANDER DUARTE M.D. Sep 18, 2016 13:46
[2016-09-18] MEDS: SOD FERRIC GLUC COMPLX 125 MG in SOD CHLORIDE 0.9% 100 ML IVPB SCH (14:26)
--- NOTE | 2016-09-18 14:48 | RADRPT ---
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 Physician: AUNDREA ARMENDARIZ Quality: Adequate Procedures: Transthoracic echocardiogram with complete 2D, M-Mode, and doppler examination. Indications: Cardiac Arrhythmia. 2D/M Mode Doppler Measurement Value Normal Ranges Measurement Value Normal Ranges LVIDd 2D 4.1 3.5 - 5.6 cm AV Peak Juan 1.9 m/sec LVIDs 2D 2.8 2.1 - 4.1 cm AV Peak PG 14.0 mmHg FS 2D 31.4 % AI Peak PG 51.0 mmHg LVPWd 2D 1.0 0.6 - 1.1 cm AI Peak Juan 3.6 m/sec IVSd 2D 1.1 0.6 - 1.1 cm AI PHT 615.0 msec IVS/LVPW 2D 1.0 LVOT Peak Juan 0.9 m/sec AoR Diam 2D 2.7 2.0 - 3.7 cm LVOT Peak PG 3.0 mmHg LA/Ao 2D 1 0 - 1 MV E Peak Juan 1.1 m/sec EDV 2D 71.0 cm3 MV A Peak Juan 1.0 m/sec ESV 2D 22.9 cm3 MV E/A 1.1 LA Dimen 2D 3.5 2.3 - 4.0 cm MV Decel Time 194 msec MV E/A 1.1 MR Peak PG 134.0 mmHg MR Peak Juan 5.8 m/sec Findings Left Ventricle: Normal left ventricular systolic function. Normal left ventricular cavity size. Normal left ventricular wall thickness. Ejection fraction is visually estimated at 60 %. Tissue Doppler/Mitral Doppler indices are within normal limits. Right Ventricle: Normal right ventricular size. Normal right ventricular systolic function. Left Atrium: The left atrium is normal in size. Right Atrium: The right atrium is normal in size. Mitral Valve: Mild mitral annular calcification. Mild mitral valve regurgitation. Aortic Valve: Aortic sclerosis without stenosis. Mild aortic valve regurgitation. Tricuspid Valve: Normal appearance and function of the tricuspid valve with trace physiologic regurgitation. Unable to obtain RVSP due to minimal presence of tricuspid regurgitation. Pulmonic Valve: Pulmonic valve not well visualized. There is trace pulmonic regurgitation. Pericardium: Normal pericardium with no significant pericardial effusion. Aorta: Normal aortic root. IVC: Normal size and normal respiratory collapse consistent with normal right atrial pressure. Conclusions 1.Normal left ventricular systolic function. Normal left ventricular cavity size. Normal left ventricular wall thickness. Ejection fraction is visually estimated at 60 %. Tissue Doppler/Mitral Doppler indices are within normal limits. 2.Aortic sclerosis without stenosis. Mild aortic valve regurgitation. 3.Mild mitral annular calcification. Mild mitral valve regurgitation. 4.Unable to obtain RVSP due to minimal presence of tricuspid regurgitation. RA pressure estimated to be 3 mmHg. Electronically Signed By: Billy Palma 18-Sep-2016 14:47:55 -0700 Patient Name: ALBA PRATT Study Date: 18-Sep-2016 [id number]
--- NOTE | 2016-09-18 17:52 | CONS ---
Date/Time of Note Date/Time of Note DATE: 09/18/16 TIME: 17:52 Consultation Date/Type/Reason Admit Date/Time Sep 15, 2016 at 21:35 Type of Consultation: ID Gastrointestinal: pain Psychological: anxiety Social History Alcohol Use: none Smoking Status: Unknown if ever smoked Drug Use: none Exam/Review of Systems Vital Signs Vitals Vital Signs Date Time Temp Pulse Resp B/P Pulse Ox O2 Delivery O2 Flow Rate FiO2 09/18/16 16:25 72 09/18/16 15:21 97.7 16 129/88 97 Intake and Output 09/17/16 09/17/16 09/18/16 15:00 23:00 07:00 Intake Total 0 ml 1400 ml 700 ml Output Total 3 ml 3 ml Balance -3 ml 1397 ml 700 ml Results Result Diagram: 09/18/16 0635 09/18/16 0635 Results 24 hrs Laboratory Tests Test 09/18/16 06:35 White Blood Count 3.7 L Red Blood Count 4.12 L Hemoglobin 10.6 L Hematocrit 33.4 L Mean Corpuscular Volume 81.1 L Mean Corpuscular Hemoglobin 25.7 L Mean Corpuscular Hemoglobin Concent 31.7 L Red Cell Distribution Width 14.5 Platelet Count 504 H Mean Platelet Volume 8.8 Neutrophils % 55.0 Band Neutrophils % 18.0 H Lymphocytes % 9.0 L Monocytes % 10.0 Eosinophils % Metamyelocytes % 4.0 H Myelocytes % 4.0 H Nucleated Red Blood Cells % 1.0 H Neutrophils # 2.0 Lymphocytes # 0.3 L Monocytes # 0.4 Eosinophils # Metamyelocytes # 0.1 Myelocytes # 0.1 Differential Comment MANUAL DIFF Large Platelets FEW Sodium Level 137 Potassium Level 3.5 Chloride Level 105 Carbon Dioxide Level 24 Anion Gap 12 Blood Urea Nitrogen 10 Creatinine 0.51 Glucose Level 112 Calcium Level 8.1 L Iron Level 26 L Total Iron Binding Capacity 154 L Percent Iron Saturation 17 L Medications Medications Current Medications Morphine Sulfate 2 mg 2 mg Q4H PRN IV PAIN Last administered on 09/16/16 03:48 ; Admin Dose 2 MG; Start 09/15/16 at 23:30 Sodium Chloride (NS) 1,000 ml @ 70 mls/hr [id number] IV Last administered on 09/18 09:46; Admin Dose 70 MLS/HR; Start 09/16/16 at 00:19 Ondansetron HCl (Zofran Inj) 4 mg Q6H PRN IV NAUSEA AND/OR VOMITING; Start 12/24 at 00:30 Acetaminophen (Tylenol Tab) 650 mg Q6H PRN PO PAIN LEVEL 1-3 OR FEVER Last administered on 09/17/16 10:06; Admin Dose 650 MG; Start 09/16/16 at 00:30 Pantoprazole 40 mg 40 mg DAILY@06 IV Last administered on 09/18/16 05:36; Admin Dose 40 MG; Start 09/16/16 at 06:00 Metronidazole (Flagyl 500 Mg (Pmx)) 100 ml @ 100 mls/hr Q6 IVPB Last administered on 09/18/16 17:30; Admin Dose 100 MLS/HR; Start 09/16/16 at 06:00 Ketorolac Tromethamine 15 mg 15 mg Q6H PRN IV PAIN Last administered on 16:38; Admin Dose 15 MG; Start 09/17/16 at 14:30; Stop 09/20/16 at 14:29 Ciprofloxacin/ Dextrose 200 ml @ 200 mls/hr Q12 IVPB Last administered on 09/18 09:45; Admin Dose 200 MLS/HR; Start 09/17/16 at 16:00 Ferric Sodium Gluconate Complex/ Sodium Chloride (Ferrlecit/NS) 110 ml @ 110 mls/hr Q24H IVPB Last administered on 09/18/16 14:26; Admin Dose 110 MLS/HR; Start 09/18/16 at 14:00; Stop 09/22/16 at 14:59 CHAUNCEY HUITRON MD Sep 18, 2016 17:52
[2016-09-19] VITALS (12 sets, daily range): BP systolic 122–141; BP diastolic 68–83; PULSE 76–97; RESP 16–20
--- NOTE | 2016-09-19 00:37 | RADRPT ---
PROCEDURE: XR Chest. CLINICAL INDICATION: Sepsis TECHNIQUE: Single AP portable chest. COMPARISON: None. Chest x-ray FINDINGS: The cardiomediastinal silhouette is within normal limits of size. Tortuosity and extrusion of the th oracic aorta. Right IJ catheter new tip overlying the cavoatrial junction. Small bilateral pleural effusions left greater than right. Left base consolidation versus atelectasis. Atherosclerotic c alcification of the aorta. No pneumothorax. The osseous structures and soft tissues are unremarkabl e. IMPRESSION: 1. Bilateral pleural effusions left greater than right with left base atelectasis or consolidation . RPTAT:AAJJ Physician Fang Date Time Electronically viewed and signed by Physician Fang on 09/19/2016 00:37 ALFRED/
[2016-09-19] MEDS: metroNIDAZOLE 500 MG/NS (PMX) 100 ML IVPB SCH ×5 (05:55→23:28)
[2016-09-19] MEDS: PANTOPRAZOLE 40 MG INJ IV SCH (05:55)
[2016-09-19] MEDS: KETOROLAC 15 MG INJ IV PRN ×3 (05:55→20:17)
[2016-09-19 08:04] LABS: ADD SCAN DIFF NO
[2016-09-19 08:19] LABS: ABNORMAL IP MESSAGE 1; BASOPHIL # 0.1 10^3/ul (0.0-0.1); BASOPHILS % 1.4 % (0.0-2.0); EOSINOPHILS % 0.3 % (0.0-7.0); HEMATOCRIT 28.3 % (37.0-47.0); HEMOGLOBIN 9.2 g/dl (12.0-16.0); LYMPHOCYTES # 0.3 10^3/ul (0.8-2.9); LYMPHOCYTES % 8.5 % (15.0-51.0); MEAN CORPUSCULAR HEMOGLOBIN 26.2 pg (29.0-33.0); MEAN CORPUSCULAR HGB CONC 32.5 g/dl (32.0-37.0); MEAN CORPUSCULAR VOLUME 80.6 fl (82.0-101.0); MEAN PLATELET VOLUME 9.2 fl (7.4-10.4); MONOCYTE # 0.2 10^3/ul (0.3-0.9); MONOCYTES % 4.7 % (0.0-11.0); NEUTROPHILS % 83.2 % (39.0-77.0); PLATELET COUNT 365 10^3/UL (140-415); RED BLOOD COUNT 3.51 10^6/ul (4.20-5.40); RED CELL DISTRIBUTION WIDTH 14.6 % (11.5-14.5); WHITE BLOOD COUNT 3.6 10^3/ul (4.8-10.8)
[2016-09-19 08:27] LABS: MAGNESIUM 1.7 mg/dl (1.7-2.5); PHOSPHORUS 2.9 mg/dl (2.5-4.9)
[2016-09-19 08:28] LABS: CALCIUM 7.5 mg/dl (8.4-10.2); CREATININE 0.46 mg/dl (0.44-1.00); POTASSIUM 3.2 mmol/L (3.5-5.1)
[2016-09-19] MEDS: CIPROFLOXACIN 400MG/D5W 200 ML IVPB SCH ×2 (09:15→20:17)
[2016-09-19] MEDS: morphine 2 MG INJ IV PRN ×3 (10:09→23:36)
--- NOTE | 2016-09-19 13:58 | CONS ---
Date/Time of Note Date/Time of Note DATE: 09/19/16 TIME: 13:58 Assessment/Plan Assessment/Plan Chief Complaint/Hosp Course Alert lying comfortably in bed complaining of on and off abdominal pain Temperature 98 pulse 70 respirations 18 blood pressure 130/83 saturation 97 on room air WBC 3.6 H&H 9.2 and 28.3 platelets 365 neutrophils 83.2 BUN 9 creatinine 0.46 Indwelling: Left abdominal drainage catheter Antibiotics: Cipro, Flagyl Well-developed well-nourished elderly woman who is alert in no distress. Head atraumatic normocephalic sclera nonicteric bugle mucosa pale. Neck is supple trachea midline. Heart: S1, S2 chest rise symmetrical breath sounds clear, diminished basis. Abdomen distended soft bowel tones present left intra- abdominal drainage catheter present with grayish drainage. Extremities without cyanosis. Assessment: 1. Perforated sigmoid colon with contained abscess status post percutaneous drainage catheter placement 2. Pancytopenia 3. 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 Problems: Consultation Date/Type/Reason Admit Date/Time Sep 15, 2016 at 21:35 Initial Consult Date Type of Consultation: ID Exam/Review of Systems Vital Signs Vitals Vital Signs Date Time Temp Pulse Resp B/P Pulse Ox O2 Delivery O2 Flow Rate FiO2 09/19/16 12:20 82 09/19/16 11:39 98.0 18 130/83 97 Intake and Output 09/18/16 09/18/16 09/19/16 15:00 23:00 07:00 Intake Total 850 ml 250 ml Output Total 3 ml 40 ml 20 ml Balance -3 ml 810 ml 230 ml Results Result Diagram: 09/19/16 0653 09/19/16 0653 Results 24 hrs Laboratory Tests Test 09/19/16 06:00 09/19/16 06:53 Phosphorus Level 2.9 Magnesium Level 1.7 White Blood Count 3.6 L Red Blood Count 3.51 L Hemoglobin 9.2 L Hematocrit 28.3 L Mean Corpuscular Volume 80.6 L Mean Corpuscular Hemoglobin 26.2 L Mean Corpuscular Hemoglobin Concent 32.5 Red Cell Distribution Width 14.6 H Platelet Count 365 # Mean Platelet Volume 9.2 Neutrophils % 83.2 H Lymphocytes % 8.5 L Monocytes % 4.7 Eosinophils % 0.3 Basophils % 1.4 Nucleated Red Blood Cells % 0.0 Neutrophils # 3.0 Lymphocytes # 0.3 L Monocytes # 0.2 L Eosinophils # 0.0 Basophils # 0.1 Nucleated Red Blood Cells # 0.0 Sodium Level 133 L Potassium Level 3.2 L Chloride Level 106 Carbon Dioxide Level 21 Anion Gap 9 Blood Urea Nitrogen 9 Creatinine 0.46 Glucose Level 140 Calcium Level 7.5 L Medications Medications Current Medications Morphine Sulfate 2 mg 2 mg Q4H PRN IV PAIN Last administered on 09/19/16 10:09 ; Admin Dose 2 MG; Start 09/15/16 at 23:30 Sodium Chloride (NS) 1,000 ml @ 70 mls/hr [id number] IV Last administered on 09/18 09:46; Admin Dose 70 MLS/HR; Start 09/16/16 at 00:19 Ondansetron HCl (Zofran Inj) 4 mg Q6H PRN IV NAUSEA AND/OR VOMITING; Start 12/24 at 00:30 Acetaminophen (Tylenol Tab) 650 mg Q6H PRN PO PAIN LEVEL 1-3 OR FEVER Last administered on 09/17/16 10:06; Admin Dose 650 MG; Start 09/16/16 at 00:30 Pantoprazole 40 mg 40 mg DAILY@06 IV Last administered on 09/19/16 05:55; Admin Dose 40 MG; Start 09/16/16 at 06:00 Metronidazole (Flagyl 500 Mg (Pmx)) 100 ml @ 100 mls/hr Q6 IVPB Last administered on 09/19/16 12:07; Admin Dose 100 MLS/HR; Start 09/16/16 at 06:00 Ketorolac Tromethamine 15 mg 15 mg Q6H PRN IV PAIN Last administered on 12:07; Admin Dose 15 MG; Start 09/17/16 at 14:30; Stop 09/20/16 at 14:29 Ciprofloxacin/ Dextrose 200 ml @ 200 mls/hr Q12 IVPB Last administered on 09/19 09:15; Admin Dose 200 MLS/HR; Start 09/17/16 at 16:00 Ferric Sodium Gluconate Complex/ Sodium Chloride (Ferrlecit/NS) 110 ml @ 110 mls/hr Q24H IVPB Last administered on 7/12/17at 14:26; Admin Dose 110 MLS/HR; Start 09/18/16 at 14:00; Stop 09/22/16 at 14:59 CORINA ESTRELLA NP Sep 19, 2016 13:58
[2016-09-19] MEDS: SOD FERRIC GLUC COMPLX 125 MG in SOD CHLORIDE 0.9% 100 ML IVPB SCH (14:47)
[2016-09-19] MEDS: SOD CHLORIDE 0.9% 1,000 ML IV SCH (14:48)
--- NOTE | 2016-09-19 15:11 | PN ---
Date/Time of Note Date/Time of Note DATE: 09/19/16 TIME: 15:01 Assessment/Plan Lines/Catheters IV Catheter Type (from Nrs): Peripheral IV Shore in Place (from Nrs): No Assessment/Plan Assessment/Plan [facility] Progress Note Date of Service: 09/19/16 Today's Impression & Plan: Overall stable with perforated sigmoid colon. Still with leakage around the drain despite upsizing of drain to 12 Fr pigtail on 09/17/16. No indication for acute surgical intervention. Not flourishing as expected. Will need a few days to assess success of drain in management of the sigmoid localized perforation. Tentatively on the schedule for surgery on Fri at noon if drainage unsuccessful. D/w the patient and her . Answered all questions, including concerns about nursing care pertaining to last night's fall (no obvious injury; discussed at length with patient's nurse and plans for follow up requested). With above assessment, I've recommended the following for today: 1. Drain cares 2. Keep inhouse 3. Labs in am 4. Cont oral intake for now 5. If not improved adequately, to do gentle prep over Friday and Friday in preparation for surgical intervention (and hopefully ability to avoid an ostomy) Thank you again for your great care of this very pleasant patient and wonderful family. If there are any questions, please feel free to call me at [phone]. Nature of presenting problem: High severity Disclaimer: Inadvertent spelling or grammatical errors are likely due to EHR/ dictation software use and do not reflect on the overall quality of patient care. 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 S/p IR drainage 09/09/16 with removal of 20 cc pus and placement of a 10 Fr. pigtail catheter at [facility]. D/c home 09/12/16. Re-presented to [place] ED 09/15/16 after being diverted from [facility] (due to internal disaster diversion) where CT was done showing adequate placement of the percutaneous drain near the sigmoid colon and decompressed sigmoid colon abscess, no obvious free air or significant spillage of stool in the abdominal cavity, and incidental finding of tail of the BUSINESS APPLICATIONS ANALYST shunt in the pelvis (new from right upper quadrant position of the same drain on the CT scan at [facility]). Transfer to [facility] 09/15/2016 for further cares. S/p upsizing of drain to 12 Fr pigtail on 09/17/16 (communication with colon demonstrated; no obvious free communication to rest of peritoneal space). COMORBIDITIES: 1. Status post ventriculoperitoneal shunt placement. 2. S/p IR drainage 09/09/16 with removal of 20 cc pus and placement of a 10 Fr. pigtail catheter at [facility]. 3. Readmission to [facility] 09/15/16 with upsizing of drain to 12 Fr pigtail on 09/17/16 (communication with colon demonstrated; no obvious free communication to rest of peritoneal space) Subjective: No major events or complaints other than reported fall off of the commode that did not seem to result in any obvious injury as of my visit (? other w/u done last night); ongoing abd pain compared to yesterday and under control with medications, although her reported she was reluctant to use narcotics due to fears of being addicted; no n/v/d; no sob or cp; + flatus; + BM (loose to diarrhea and small amounts); minimal activity Objective: Vitals: See below Exam: GENERAL: On exam, the patient was laying in bed and appeared to be comfortable and in no acute distress. ABDOMEN: Soft, minimally tender and nondistended. Drain with minimal purulent fluid in the bag and small brown/black output around the drain site. There are no peritoneal signs or guarding. SKIN: Skin appears to be pink and feels warm to touch. NEUROLOGIC: Patient is awake, alert, and follows commands appropriately. Exam/Review of Systems Vital Signs Vitals Vital Signs Date Time Temp Pulse Resp B/P Pulse Ox O2 Delivery O2 Flow Rate FiO2 09/19/16 12:20 82 09/19/16 11:39 98.0 18 130/83 97 Intake and Output 09/18/16 09/18/16 09/19/16 15:00 23:00 07:00 Intake Total 850 ml 250 ml Output Total 3 ml 40 ml 20 ml Balance -3 ml 810 ml 230 ml Results Result Diagram: 09/19/16 0653 09/19/16 0653 ALEXSANDER DUARTE M.D. Sep 19, 2016 15:11
--- NOTE | 2016-09-19 16:33 | RADRPT ---
Vent Rate: 69 bpm RR Interval: 0 msec ND Interval: 144 msec QRS Duration: 90 msec QT Interval: 436 msec QTC Interval: 467 msec P-R-T Kulm: 69 - 42 - 56 degrees Normal sinus rhythm Normal ECG Electronically Signed By: Neptali Skelton [id number]
[2016-09-19] MEDS ORDERED: MAGNESIUM SULFATE 1 GM/D5W 100 ML IVPB ONE (17:00)
[2016-09-19] MEDS: POTASSIUM CHLORIDE 250 ML IVPB SCH ×2 (19:49→23:31)
[2016-09-20] VITALS (13 sets, daily range): BP systolic 105–125; BP diastolic 60–65; PULSE 73–151; RESP 16–20
[2016-09-20] MEDS: SOD CHLORIDE 0.9% 1,000 ML IV SCH ×3 (04:19→21:05)
[2016-09-20] MEDS: KETOROLAC 15 MG INJ IV PRN ×2 (04:36→13:20)
[2016-09-20] MEDS: metroNIDAZOLE 500 MG/NS (PMX) 100 ML IVPB SCH ×2 (05:05→11:42)
[2016-09-20] MEDS: PANTOPRAZOLE 40 MG INJ IV SCH (05:05)
[2016-09-20 07:57] LABS: ADD SCAN DIFF NO
[2016-09-20 08:02] LABS: ABNORMAL IP MESSAGE 1; BASOPHILS % 0.2 % (0.0-2.0); HEMATOCRIT 32.7 % (37.0-47.0); HEMOGLOBIN 10.9 g/dl (12.0-16.0); LYMPHOCYTES # 0.2 10^3/ul (0.8-2.9); LYMPHOCYTES % 4.4 % (15.0-51.0); MEAN CORPUSCULAR HEMOGLOBIN 26.7 pg (29.0-33.0); MEAN CORPUSCULAR HGB CONC 33.3 g/dl (32.0-37.0); MEAN PLATELET VOLUME 9.5 fl (7.4-10.4); MONOCYTE # 0.1 10^3/ul (0.3-0.9); MONOCYTES % 2.5 % (0.0-11.0); NEUTROPHIL # 4.4 10^3/ul (1.6-7.5); PLATELET COUNT 338 10^3/UL (140-415); RED BLOOD COUNT 4.09 10^6/ul (4.20-5.40); RED CELL DISTRIBUTION WIDTH 14.6 % (11.5-14.5); WHITE BLOOD COUNT 4.8 10^3/ul (4.8-10.8)
[2016-09-20 08:09] LABS: NEUTROPHILS % 91.9 % (39.0-77.0)
[2016-09-20] MEDS: CIPROFLOXACIN 400MG/D5W 200 ML IVPB SCH (08:36)
[2016-09-20 08:38] LABS: CREATININE 0.49 mg/dl (0.44-1.00); POTASSIUM 4.7 mmol/L (3.5-5.1)
[2016-09-20] MEDS: morphine 2 MG INJ IV PRN ×2 (09:06→22:55)
--- NOTE | 2016-09-20 10:36 | EN ---
Date/Time of Note Date/Time of Note DATE: 09/20/16 TIME: 10:35 Event Note Medicine Medicine Event Note PROGRESS NOTE DATE OF SERVICE: 09/19 SUBJECTIVE: Patient was started on a diet, but she does not seem to be tolerating it, she continues to have abdominal pain. Vital Signs Date Time Temp Pulse Resp B/P Pulse Ox O2 Delivery O2 Flow Rate FiO2 09/19/16 12:20 82 09/19/16 11:39 98.0 18 130/83 97 Intake and Output 09/18/16 09/18/16 09/19/16 15:00 23:00 07:00 Intake Total 850 ml 250 ml Output Total 3 ml 40 ml 20 ml Balance -3 ml 810 ml 230 ml Constitutional: alert, frail, oriented, ill looking Psych: anxiety Head: atraumatic, normocephalic Eyes: PERRL, No icteric ENMT: No mucosa pink and moist (dry) Respiratory: clear to auscultation, diminished breath sounds Cardiovascular: regular rate and rhythm, No murmurs/extra sounds Gastrointestinal: distended, other (L sided drain with minimal brownish fluid in bag), Extremities: No edema Neurological: lethargic Result Diagram: 09/19/16 0653 09/19/16 0653 Results 24 hrs Laboratory Tests Test 09/19/16 06:00 09/19/16 06:53 Phosphorus Level 2.9 Magnesium Level 1.7 White Blood Count 3.6 L Red Blood Count 3.51 L Hemoglobin 9.2 L Hematocrit 28.3 L Mean Corpuscular Volume 80.6 L Mean Corpuscular Hemoglobin 26.2 L Mean Corpuscular Hemoglobin Concent 32.5 Red Cell Distribution Width 14.6 H Platelet Count 365 # Mean Platelet Volume 9.2 Neutrophils % 83.2 H Lymphocytes % 8.5 L Monocytes % 4.7 Eosinophils % 0.3 Basophils % 1.4 Nucleated Red Blood Cells % 0.0 Neutrophils # 3.0 Lymphocytes # 0.3 L Monocytes # 0.2 L Eosinophils # 0.0 Basophils # 0.1 Nucleated Red Blood Cells # 0.0 Sodium Level 133 L Potassium Level 3.2 L Chloride Level 106 Carbon Dioxide Level 21 Anion Gap 9 Blood Urea Nitrogen 9 Creatinine 0.46 Glucose Level 140 Calcium Level 7.5 L Medications Current Medications Morphine Sulfate 2 mg 2 mg Q4H PRN IV PAIN Last administered on 09/19/16 10:09 ; Admin Dose 2 MG; Start 09/15/16 at 23:30 Sodium Chloride (NS) 1,000 ml @ 70 mls/hr [id number] IV Last administered on 09/18 09:46; Admin Dose 70 MLS/HR; Start 09/16/16 at 00:19 Ondansetron HCl (Zofran Inj) 4 mg Q6H PRN IV NAUSEA AND/OR VOMITING; Start 12/24 at 00:30 Acetaminophen (Tylenol Tab) 650 mg Q6H PRN PO PAIN LEVEL 1-3 OR FEVER Last administered on 09/17/16 10:06; Admin Dose 650 MG; Start 09/16/16 at 00:30 Pantoprazole 40 mg 40 mg DAILY@06 IV Last administered on 09/19/16 05:55; Admin Dose 40 MG; Start 09/16/16 at 06:00 Metronidazole (Flagyl 500 Mg (Pmx)) 100 ml @ 100 mls/hr Q6 IVPB Last administered on 09/19/16 12:07; Admin Dose 100 MLS/HR; Start 09/16/16 at 06:00 Ketorolac Tromethamine 15 mg 15 mg Q6H PRN IV PAIN Last administered on 12:07; Admin Dose 15 MG; Start 09/17/16 at 14:30; Stop 09/20/16 at 14:29 Ciprofloxacin/ Dextrose 200 ml @ 200 mls/hr Q12 IVPB Last administered on 09/19 09:15; Admin Dose 200 MLS/HR; Start 09/17/16 at 16:00 Ferric Sodium Gluconate Complex/ Sodium Chloride (Ferrlecit/NS) 110 ml @ 110 mls/hr Q24H IVPB Last administered on 09/18/16 14:26; Admin Dose 110 MLS/HR; Start 09/18/16 at 14:00; Stop 09/22/16 at 14:59 ASSESSMENT: This is a 70-year-old female with diverticulitis with abscess s/p drain placement who is being managed as follows: #1 Blocked pigtail drain for #2 r/o enterocutaneous fistula: Status post successful catheter replacement with larger drain #2 Diverticulitis with abscess s/p drain placement * continue abx/due to patient's penicillin allergy, will defer to ID to help broaden spectrum of antibiotic coverage #3 Sepsis 2/2 #2 #4 Hx of ZYGLO TECHNICIAN shunt placement: Neurosurgery notified of presence of intraabd infection and possible risk of infection of ZYGLO TECHNICIAN shunt, f/u recs #5 Iron deficiency anemia #6 Leonard Pleural effusion with likely L sided pneumonia PLAN: * Spoke with surgery, we will downgrade diet to clear liquids for now * Continue IV Iron therapy * Patient on the schedule for operative intervention on friday * Supportive care * DVT and GI prophylaxis: SCDs, Protonix AUNDREA ARMENDARIZ Sep 20, 2016 10:36
--- NOTE | 2016-09-20 10:45 | PN ---
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 shunt placement: Neurosurgery notified of presence of intraabd infection and possible risk of infection of REGULATORY SERVICES CONSULTANT shunt, f/u recs #5 Iron deficiency anemia #6 Leonard Pleural effusion with likely L sided pneumonia PLAN: * IV tylenol to help with pain * Consider switching Cipro to Levaquin and add Aztreonam * Good stool softeners / continue clears for now * Continue IV Iron therapy * Patient on the schedule for operative intervention on friday * Supportive care * DVT and GI prophylaxis: SCDs, Protonix Further treatment strategy will be implemented as per the clinical course Subjective 24 Hr Interval Summary Free Text/Dictation Patient seen and examined. abd pain and poor apetite Somewhat resistant to the idea of meds Exam/Review of Systems Vital Signs Vitals Vital Signs Date Time Temp Pulse Resp B/P Pulse Ox O2 Delivery O2 Flow Rate FiO2 09/20/16 09:51 151 09/20/16 07:57 97.9 20 118/62 93 Intake and Output 09/19/16 09/19/16 09/20/16 15:00 23:00 07:00 Intake Total 840 ml 1400 ml Output Total 80 ml 20 ml Balance 760 ml 1380 ml Exam Constitutional: alert, frail, oriented, other Psych: anxiety Head: atraumatic, normocephalic Eyes: PERRL ENMT: No mucosa pink and moist (dry) Neck: supple Respiratory: clear to auscultation, diminished breath sounds Cardiovascular: regular rate and rhythm, No murmurs/extra sounds Gastrointestinal: distended, other (sore, drain L side with brownish fluid), No rebound or guarding Extremities: No edema Neurological: lethargic Results Result Diagram: 09/20/16 0709 09/20/16 0709 Results 24 hrs Laboratory Tests Test 09/20/16 07:09 White Blood Count 4.8 # Red Blood Count 4.09 L Hemoglobin 10.9 L Hematocrit 32.7 L Mean Corpuscular Volume 80.0 L Mean Corpuscular Hemoglobin 26.7 L Mean Corpuscular Hemoglobin Concent 33.3 Red Cell Distribution Width 14.6 H Platelet Count 338 Mean Platelet Volume 9.5 Neutrophils % 91.9 H Lymphocytes % 4.4 L Monocytes % 2.5 Eosinophils % 0.0 Basophils % 0.2 Nucleated Red Blood Cells % 0.0 Neutrophils # 4.4 Lymphocytes # 0.2 L Monocytes # 0.1 L Eosinophils # 0.0 Basophils # 0.0 Nucleated Red Blood Cells # 0.0 Sodium Level 131 L Potassium Level 4.7 Chloride Level 105 Carbon Dioxide Level 22 Anion Gap 9 Blood Urea Nitrogen 10 Creatinine 0.49 Glucose Level 118 Calcium Level 8.0 L Medications Medications Current Medications Morphine Sulfate 2 mg 2 mg Q4H PRN IV PAIN Last administered on 09/20/16 09:06 ; Admin Dose 2 MG; Start 09/15/16 at 23:30 Sodium Chloride (NS) 1,000 ml @ 70 mls/hr [id number] IV Last administered on 09/19 14:48; Admin Dose 70 MLS/HR; Start 09/16/16 at 00:19 Ondansetron HCl (Zofran Inj) 4 mg Q6H PRN IV NAUSEA AND/OR VOMITING; Start 12/24 at 00:30 Acetaminophen (Tylenol Tab) 650 mg Q6H PRN PO PAIN LEVEL 1-3 OR FEVER Last administered on 09/17/16 10:06; Admin Dose 650 MG; Start 09/16/16 at 00:30 Pantoprazole 40 mg 40 mg DAILY@06 IV Last administered on 09/20/16 05:05; Admin Dose 40 MG; Start 09/16/16 at 06:00 Metronidazole (Flagyl 500 Mg (Pmx)) 100 ml @ 100 mls/hr Q6 IVPB Last administered on 09/20/16 05:05; Admin Dose 100 MLS/HR; Start 09/16/16 at 06:00 Ketorolac Tromethamine 15 mg 15 mg Q6H PRN IV PAIN Last administered on 04:36; Admin Dose 15 MG; Start 09/17/16 at 14:30; Stop 09/20/16 at 14:29 Ciprofloxacin/ Dextrose 200 ml @ 200 mls/hr Q12 IVPB Last administered on 09/20 08:36; Admin Dose 200 MLS/HR; Start 09/17/16 at 16:00 Ferric Sodium Gluconate Complex/ Sodium Chloride (Ferrlecit/NS) 110 ml @ 110 mls/hr Q24H IVPB Last administered on 09/19/16 14:47; Admin Dose 110 MLS/HR; Start 09/18/16 at 14:00; Stop 09/22/16 at 14:59 AUNDREA ARMENDARIZ Sep 20, 2016 10:45
[2016-09-20] MEDS: ACETAMINOPHEN 1000MG/100ML IV 100 ML IVPB SCH ×2 (11:42→19:50)
[2016-09-20] MEDS: DOCUSATE SODIUM 100 MG CAP PO SCH ×2 (11:44→20:15)
[2016-09-20] MEDS: POLYETHYLENE GLYCOL 17 GM PACKET PO SCH (11:44)
[2016-09-20] MEDS ORDERED: LEVOFLOXACIN 750MG/D5W (PMX) 150 ML IVPB SCH (12:00)
[2016-09-20] MEDS ORDERED: AZTREONAM 1 GM/NS (PMX) 50 ML IVPB SCH (12:00)
--- NOTE | 2016-09-20 12:28 | HPN ---
Date/Time of Note Date/Time of Note DATE: 09/20/16 TIME: 12:28 Interval H&P Admission Note Pt. seen H&P reviewed: No system changes Pt. seen H&P reviewed. No system changes (I attest that I have seen and examined the patient and reviewed the operation in detail, as well as its risks , benefits and alternatives of the operation). I attest that I have seen and examined the patient and reviewed in detail the operation, and its associated risks, benefits and alternative. I have answered all the patient's questions to the best of my ability and the patient wishes to proceed. Please refer to rest of electronic medical record for additional updates. ALEXSANDER DUARTE M.D. Sep 20, 2016 12:28
[2016-09-20] MEDS: SOD FERRIC GLUC COMPLX 125 MG in SOD CHLORIDE 0.9% 100 ML IVPB SCH (14:29)
--- NOTE | 2016-09-20 15:09 | PN ---
Date/Time of Note Date/Time of Note DATE: 09/20/16 TIME: 14:59 Assessment/Plan Lines/Catheters IV Catheter Type (from Nrsg): Peripheral IV Shore in Place (from Nrsg): No Assessment/Plan Assessment/Plan [facility] Progress Note Date of Service: 09/20/16 Today's Impression & Plan: Overall stable, but with some deterioration with more distention of the abdomen and pain; clinical parameters appear acceptable. I decided to expedite the timing of the operation from this coming Tue to earlier. Patient is a relatively clinically stable enough that she might be able to tolerate gentle bowel prep which we are planning on doing overnight. I have her on the schedule for a 730 start time tomorrow morning with plans of doing a laparoscopic, possible open partial colectomy with possible need for ostomy placement. I had thoroughly explained the rationale behind my recommendation and the operation including the risks, benefits, and alternatives with both the patient and her during numerous encounters in the past and had answered all their questions to the best my ability. I again affirmed her understanding of all of this and she appeared to understand and agreed to proceed with plans as follows. With above assessment, I've recommended the following for today: 1. Continue current cares with n.p.o. status with the exception of gentle bowel prep with a bottle of mag citrate to be administered through today 2. Normal saline 1 L bolus 3. Labs in a.m. 4. To the operating room tomorrow morning for above (I tried to connect with the patient's at their listed number; however, there was no answer and there was no answering machine to leave a message on.) Thank you again for your great care of this very pleasant patient and wonderful family. If there are any questions, please feel free to call me at [phone]. Nature of presenting problem: High severity Disclaimer: Inadvertent spelling or grammatical errors are likely due to EHR/ dictation software use and do not reflect on the overall quality of patient care. 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 S/p IR drainage 09/09/16 with removal of 20 cc pus and placement of a 10 Fr. pigtail catheter at [facility]. D/c home 09/12/16. Re-presented to [place] ED 09/15/16 after being diverted from [facility] (due to internal disaster diversion) where CT was done showing adequate placement of the percutaneous drain near the sigmoid colon and decompressed sigmoid colon abscess, no obvious free air or significant spillage of stool in the abdominal cavity, and incidental finding of tail of the ITALIAN TEACHER shunt in the pelvis (new from right upper quadrant position of the same drain on the CT scan at [facility]). Transfer to [facility] 09/15/2016 for further cares. S/p upsizing of drain to 12 Fr pigtail on 09/17/16 (communication with colon demonstrated; no obvious free communication to rest of peritoneal space). COMORBIDITIES: 1. Status post ventriculoperitoneal shunt placement. 2. S/p IR drainage 09/09/16 with removal of 20 cc pus and placement of a 10 Fr. pigtail catheter at [facility]. 3. Readmission to [facility] 09/15/16 with upsizing of drain to 12 Fr pigtail on 09/17/16 (communication with colon demonstrated; no obvious free communication to rest of peritoneal space) Subjective: No major events, but complaining of a bit more abdominal pain today. Does not appear to be under adequate control with medications; no n/v/d; no sob or cp; + flatus; + BM; minimal activity Objective: Vitals: See below Exam: GENERAL: On exam, the patient was laying in bed and appeared to be comfortable and in no acute distress. ABDOMEN: Soft, minimally to moderately tender and somewhat distended compared to yesterday (new). Drain with minimal purulent fluid in the bag and small brown /black output around the drain site. There are no peritoneal signs or guarding. SKIN: Skin appears to be pink and feels warm to touch. NEUROLOGIC: Patient is awake, alert, and follows commands appropriately. Exam/Review of Systems Vital Signs Vitals Vital Signs Date Time Temp Pulse Resp B/P Pulse Ox O2 Delivery O2 Flow Rate FiO2 09/20/16 12:09 76 09/20/16 11:47 98.0 20 105/62 93 Intake and Output 09/19/16 09/19/16 09/20/16 15:00 23:00 07:00 Intake Total 840 ml 1400 ml Output Total 80 ml 20 ml Balance 760 ml 1380 ml Results Result Diagram: 09/20/16 0709 09/20/16 0709 ALEXSANDER DUARTE M.D. Sep 20, 2016 15:08
--- NOTE | 2016-09-20 15:10 | CONS ---
Date/Time of Note Date/Time of Note DATE: 09/20/16 TIME: 15:08 Assessment/Plan Assessment/Plan Chief Complaint/Hosp Course Patient is alert with increased abdominal pain, no fevers WBC 4.8 H&H 10.9 and 32.7 platelets 338 neutrophils 91.9 BUN 10 creatinine 0.49 Antimicrobials Levaquin Flagyl Allergy: Penicillin Indwelling: Left abdominal drainage catheter Well-developed well-nourished elderly woman who is alert in no distress. Head atraumatic normocephalic sclera nonicteric bugle mucosa pale. Neck is supple trachea midline. Heart: S1, S2 chest rise symmetrical breath sounds clear, diminished basis. Abdomen distended soft bowel tones present left intra- abdominal drainage catheter present with grayish drainage. Extremities without cyanosis. Assessment: 1. Perforated sigmoid colon with contained abscess status post percutaneous drainage catheter placement 2. Pancytopenia 3. History of [employer]RATOR shunt Plan: Clinically unchanged, still with significant pain and discomfort, will change antibiotics to vancomycin, meropenem and Diflucan, follow fluid cultures , follow surgical recommendations. YAW pt/staff Problems: Consultation Date/Type/Reason Admit Date/Time Sep 15, 2016 at 21:35 Type of Consultation: ID Exam/Review of Systems Vital Signs Vitals Vital Signs Date Time Temp Pulse Resp B/P Pulse Ox O2 Delivery O2 Flow Rate FiO2 09/20/16 12:09 76 09/20/16 11:47 98.0 20 105/62 93 Intake and Output 09/19/16 09/19/16 09/20/16 15:00 23:00 07:00 Intake Total 840 ml 1400 ml Output Total 80 ml 20 ml Balance 760 ml 1380 ml Results Result Diagram: 09/20/16 0709 09/20/16 0709 Results 24 hrs Laboratory Tests Test 09/20/16 07:09 White Blood Count 4.8 # Red Blood Count 4.09 L Hemoglobin 10.9 L Hematocrit 32.7 L Mean Corpuscular Volume 80.0 L Mean Corpuscular Hemoglobin 26.7 L Mean Corpuscular Hemoglobin Concent 33.3 Red Cell Distribution Width 14.6 H Platelet Count 338 Mean Platelet Volume 9.5 Neutrophils % 91.9 H Lymphocytes % 4.4 L Monocytes % 2.5 Eosinophils % 0.0 Basophils % 0.2 Nucleated Red Blood Cells % 0.0 Neutrophils # 4.4 Lymphocytes # 0.2 L Monocytes # 0.1 L Eosinophils # 0.0 Basophils # 0.0 Nucleated Red Blood Cells # 0.0 Sodium Level 131 L Potassium Level 4.7 Chloride Level 105 Carbon Dioxide Level 22 Anion Gap 9 Blood Urea Nitrogen 10 Creatinine 0.49 Glucose Level 118 Calcium Level 8.0 L Medications Medications Current Medications Morphine Sulfate 2 mg 2 mg Q4H PRN IV PAIN Last administered on 09/20/16 09:06 ; Admin Dose 2 MG; Start 09/15/16 at 23:30 Sodium Chloride (NS) 1,000 ml @ 70 mls/hr [id number] IV Last administered on 09/19 14:48; Admin Dose 70 MLS/HR; Start 09/16/16 at 00:19 Ondansetron HCl (Zofran Inj) 4 mg Q6H PRN IV NAUSEA AND/OR VOMITING; Start 12/24 at 00:30 Acetaminophen (Tylenol Tab) 650 mg Q6H PRN PO PAIN LEVEL 1-3 OR FEVER Last administered on 09/17/16 10:06; Admin Dose 650 MG; Start 09/16/16 at 00:30 Pantoprazole 40 mg 40 mg DAILY@06 IV Last administered on 09/20/16 05:05; Admin Dose 40 MG; Start 09/16/16 at 06:00 Metronidazole 100 ml @ 100 mls/hr Q6 IVPB Last administered on 09/20/16 11:42 ; Admin Dose 100 MLS/HR; Start 09/16/16 at 06:00 Ferric Sodium Gluconate Complex 125 mg/Sodium Chloride 110 ml @ 110 mls/hr Q24H IVPB Last administered on 09/20/16 14:29; Admin Dose 110 MLS/HR; Start at 14:00; Stop 09/22/16 at 14:59 Levofloxacin/ Dextrose 150 ml @ 100 mls/hr Q48H IVPB Last administered on 09/20 11:42; Admin Dose 100 MLS/HR; Start 09/20/16 at 12:00 Aztreonam 50 ml @ 100 mls/hr Q12 IVPB Last administered on 09/20/16 11:41; Admin Dose 100 MLS/HR; Start 09/20/16 at 12:00 Acetaminophen (Ofirmev 1000mg/ 100ml Iv) 100 ml @ 400 mls/hr Q8H IVPB Last administered on 09/20/16 11:42; Admin Dose 400 MLS/HR; Start 09/20/16 at 12:00 ; Stop 09/22/16 at 04:14 Polyethylene Glycol (Miralax) 17 gm DAILY PO Last administered on 09/20/16 11: 44; Admin Dose 17 GM; Start 09/20/16 at 11:00 Docusate Sodium (Colace) 100 mg BID PO Last administered on 09/20/16 11:44; Admin Dose 100 MG; Start 09/20/16 at 11:00 CORINA ESTRELLA NP Sep 20, 2016 15:09
[2016-09-20] MEDS ORDERED: SOD CHLORIDE 0.9% 1,000 ML IV ONE (15:30)
[2016-09-20] MEDS ORDERED: VANCOMYCIN IV PER PHARMACY XX SCH (15:30)
[2016-09-20] MEDS ORDERED: MAGNESIUM CITRATE 300 ML BTL PO ONE (16:00)
[2016-09-20] MEDS: FLUCONAZOLE 100 MG/NS (PMX) 50 ML IVPB SCH (16:34)
[2016-09-20] MEDS ORDERED: VANCOMYCIN 1 GM in NS 250 ML IVPB ONE (17:00)
[2016-09-20] MEDS: MEROPENEM 500MG/50 ML (PMX) 50 ML IVPB SCH (21:05)
[2016-09-20] MEDS: ONDANSETRON 4 MG INJ IV PRN (21:11)
[2016-09-20] MEDS ORDERED: BARIUM SULF 2% 450 ML BTL (BERRY SMOOTHIE) PO ONE (23:30)
[2016-09-21] VITALS (80 sets, daily range): BP systolic 64–142; BP diastolic 17–93; PULSE 93–139; RESP 2–34
[2016-09-21] LABS: ADD SCAN DIFF NO
[2016-09-21] MEDS ORDERED: PANTOPRAZOLE 40 MG INJ IV ONE
[2016-09-21] MEDS: PANTOPRAZOLE 40 MG INJ IV SCH ×3 (00:02→17:14)
[2016-09-21 00:56] LABS: AADO2 Arterial 103.4 mmHg (7.0-24.0); Allen Test ACCEPTAB; Arterial Base Excess -26.6 mmol/L (-3.0-3); Arterial COHb 0 % (0.0-3.0); Arterial Fraction of Oxyhgb 93.3 % (93.0-99.0); Arterial HCO3 5.8 mmol/L (22.0-26.0); Arterial MetHb 0.3 % (0.0-1.5); MODE NASAL CANNULA
[2016-09-21] MEDS ORDERED: NA BICARBONATE 8.4% 50 ML SYG ONE ×3 (00:57→12:30)
[2016-09-21] MEDS ORDERED: NA BICARBONATE 8.4% 50 ML SYG IV ONE ×2 (01:00→01:13)
[2016-09-21] MEDS ORDERED: NORepinephrine 8MG/250 ML (PMX 250 ML ONE (01:03)
[2016-09-21 01:05] LABS: ABNORMAL IP MESSAGE 1; BASOPHILS % 0.5 % (0.0-2.0); EOSINOPHILS % 0.2 % (0.0-7.0); HEMATOCRIT 39.2 % (37.0-47.0); HEMOGLOBIN 11.7 g/dl (12.0-16.0); LYMPHOCYTES # 0.5 10^3/ul (0.8-2.9); LYMPHOCYTES % 7.8 % (15.0-51.0); MEAN CORPUSCULAR HEMOGLOBIN 26.7 pg (29.0-33.0); MEAN CORPUSCULAR HGB CONC 29.8 g/dl (32.0-37.0); MEAN CORPUSCULAR VOLUME 89.3 fl (82.0-101.0); MEAN PLATELET VOLUME 10.3 fl (7.4-10.4); MONOCYTE # 0.3 10^3/ul (0.3-0.9); MONOCYTES % 5.2 % (0.0-11.0); NEUTROPHIL # 5.4 10^3/ul (1.6-7.5); NUCLEATED RED BLOOD CELLS% 0.5 /100WBC (0.0-0.0); PLATELET COUNT 257 10^3/UL (140-415); RED BLOOD COUNT 4.39 10^6/ul (4.20-5.40); RED CELL DISTRIBUTION WIDTH 15.4 % (11.5-14.5); WHITE BLOOD COUNT 6.4 10^3/ul (4.8-10.8)
[2016-09-21] MEDS ORDERED: NORepinephrine 8MG/250 ML (PMX 250 ML IV SCH (01:15)
[2016-09-21 01:25] LABS: ALBUMIN 2.5 g/dl (3.3-4.9); ALBUMIN/GLOBULIN RATIO 0.86; BILIRUBIN,INDIRECT 0.2 mg/dl (0-1.1); BILIRUBIN,TOTAL 0.2 mg/dl (0.2-1.3); CREATININE 1.13 mg/dl (0.44-1.00); TOTAL PROTEIN 5.4 g/dl (6.1-8.1)
[2016-09-21 01:27] LABS: POTASSIUM 6.9 mmol/L (3.5-5.1)
[2016-09-21] MEDS ORDERED: SOD CHLORIDE 0.9% 1,000 ML IV ONE ×4 (01:30→07:30)
[2016-09-21] MEDS ORDERED: PIPER-TAZO 3.375 GM IV (PMX) 100 ML IVPB SCH (01:30)
[2016-09-21] MEDS ORDERED: DEXTROSE 50% 50 ML SYRINGE INJ ONE (01:30)
[2016-09-21] MEDS ORDERED: INSULIN REGULAR, HUMAN 100 UNIT/1 ML 3ML VIAL IV ONE (01:30)
[2016-09-21] MEDS ORDERED: DEXTROSE 50% 50 ML SYRINGE ONE ×2 (01:31→16:48)
[2016-09-21] MEDS: SODIUM BICARBONATE (IV ADD) 150 MEQ in SOD CHLORIDE 0.9% 850 ML IV SCH ×3 (01:46→17:04)
[2016-09-21] MEDS ORDERED: OCTREOTIDE 50 MCG in SOD CHLORIDE 0.9% 50 ML IVPB ONE (02:00)
[2016-09-21] MEDS ORDERED: PANTOPRAZOLE IV 80 MG in SOD CHLORIDE 0.9% 100 ML IVPB ONE (02:00)
--- NOTE | 2016-09-21 02:17 | RADRPT ---
PROCEDURE: XR Chest. CLINICAL INDICATION: Line placement. TECHNIQUE: Single frontal chest x-ray. COMPARISON: 09/18/2016 FINDINGS: Endotracheal tube tip is at the level of clavicles. NG tube tip is in the stomach. Right internal jugular central venous line tip is in the SVC.. Heart is top normal size. There is no congestive he art failure.. There is redemonstrated left greater right basilar atelectasis versus infiltrate, slig htly increased.. Small left pleural effusion cannot be excluded.. There is no pneumothorax. The o sseous structures are unremarkable. IMPRESSION: Endotracheal tube tip above zana. NG tube tip in stomach. Right internal jugular central line ti p SVC. No pneumothorax. Increased left greater right basilar atelectasis versus infiltrate. Possi ble small left pleural effusion. RPTAT: HMVK .Neptali Harmon MD, Date Time Electronically viewed and signed by .Neptali Harmon MD, on 09/21/2016 02:16 .K/
[2016-09-21 02:27] LABS: Arterial Base Excess -15.3 mmol/L (-3.0-3); Arterial COHb 0.3 % (0.0-3.0); Arterial Fraction of Oxyhgb 97.5 % (93.0-99.0); Arterial HCO3 11.3 mmol/L (22.0-26.0); Arterial MetHb 0.5 % (0.0-1.5); Arterial Total Hemglobin 9.2 g/dl (12.0-18.0); MODE VENT - AC
[2016-09-21] MEDS ORDERED: NA POLYST SULFON 15 GM/60 ML BTL PO ONE (02:30)
[2016-09-21] MEDS: PROPOFOL 100 ML IV SCH ×3 (02:30→22:11)
--- NOTE | 2016-09-21 02:51 | RADRPT ---
PROCEDURE: CT chest, abdomen and pelvis without contrast. CLINICAL INDICATION: Shortness of breath and abdominal pain. TECHNIQUE: CT of the chest, abdomen and pelvis was performed on a multi-detector high-resolution CT scanner. Contiguous axial images were obtained without intravenous contrast. Coronal and sagitt al reformatted images were also obtained. Images were reviewed on the PACS workstation. One or more of the following dose reduction techniques were used: - Automated exposure control. - Adjustment of the mA and/or kV according to patient size. - Use of iterative reconstruction technique. Exam CTD/vol = 11.50 mGy. Total exam DLP = 836.03 mGy-cm. COMPARISON: None. FINDINGS: Chest: There is no evidence of chest wall mass. The visualized thyroid gland is unremarkable. Ther e are no enlarged axillary lymph nodes. There are no enlarged mediastinal or hilar lymph nodes. Th e heart is normal in size. There is a trace inferior pericardial effusion. The aorta is of normal course and caliber with scattered atherosclerotic calcifications. There are bilateral moderate to l arge pleural effusions with underlying atelectasis. The central tracheobronchial tree is within nor mal limits. There is mild dilatation of the esophagus. There is a small hiatal hernia. Abdomen: The liver is normal in size. There is a 7 mm hypodense lesion within the left lobe of the liver which is too small to further characterize. There is no dilatation of the biliary tree. The gallbladder is not distended. The spleen, pancreas and bilateral adrenal glands are within normal limits. Bilateral kidneys are normal in size with a small cyst within the upper pole of the left ki dney. There is mild scarring within the upper pole of the left kidney with punctate cortical calcif ication. There is no radiopaque renal or ureteral calculus identified. There is no hydronephrosis o r hydroureter. There is no retroperitoneal adenopathy. The abdominal aorta is of normal caliber wi th scattered atherosclerotic calcifications. There is diffuse intra-abdominal stranding and mild to moderate ascites. There are mildly dilated a nd thickened loops of small and large bowel. There is no bowel obstruction. There is a left anteri or pelvic pigtail drainage catheter extending to the mid upper pelvis. There is mild pneumoperitone um within the anterior and upper abdomen. The appendix is not visualized. There is a right-sided v entriculoperitoneal catheter extending to the lower abdomen. Pelvis: The bladder not distended for optimal evaluation. There is moderate pelvic free fluid. Th ere is no significant pelvic adenopathy. 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 Evaluation of the osseous structures demonstrates no suspicious lytic or blastic lesion. IMPRESSION: Left anterior pelvic drainage catheter extending into the mid upper pelvis. There is mild pneumoperi toneum which could be secondary to drainage catheter. Follow-up is recommended. Diffuse intra-abdominal stranding and mild to moderate ascites. Mildly dilated and thickened loops of small and large bowel represents an ileus and nonspecific ente rocolitis. There is no bowel obstruction. Bilateral moderate to large pleural effusions with underlying atelectasis. Mild dilatation of the esophagus and small hiatal hernia. Trace inferior pericardial effusion. Vascular calcifications reflective of atherosclerosis. Anasarca. Right-sided ventriculoperitoneal catheter. A call report was made to the patient's todd nurse (Milly) at 02:50 a.m. .Kang White MD, Date Time Electronically viewed and signed by .Kang White MD, on 09/21/2016 02:50 .T/
[2016-09-21] MEDS: ACETAMINOPHEN 1000MG/100ML IV 100 ML IVPB SCH ×3 (04:02→21:28)
[2016-09-21] MEDS: PANTOPRAZOLE IV 80 MG in SOD CHLORIDE 0.9% 100 ML IV SCH ×3 (04:09→15:31)
--- NOTE | 2016-09-21 04:18 | EN ---
Date/Time of Note Date/Time of Note DATE: 09/21/16 TIME: 04:13 ER Progress Note I was asked by the patient's physician Dr. Murillo who was at the bedside to intubate the patient and insert a central line because patient is having acute respiratory failure, septic, hypotensive. Upon arrival to the bedside, patient was having agonal breathing, respiratory therapist at the bedside Endotracheal Intubation by me: Pre assessment performed. See preceding note for details. Pre-oxygenation performed with 100% oxygen RSI: Performed w/o complication or hypoxic events. Medications as ordered. Blade: [place] Scope ET Tube: 7.5 cm Depth: 21 cm at the lip There were lots of oral secretions that were evacuated; approximately 700 mL of brownish liquid Intubation confirmed by colorimetric CO2, equal breath sounds, quiet over the stomach. NG tube was placed by the nursing staff Chest X-ray 1V is pending and will be reviewed by the admitting physician Dr. Murillo Central Line Placement by me: Patient consented, sterilely draped, full prep, gown, glove, mask, time out performed. Anesthesia: 1% lidocaine locally Location: Right femoral vein Device: Multiple lumen Technique: Seldinger technique. Secured with suture. Results: Venous return from all ports with easy saline flush. No complications. Guide wire retrieved and disposed of. [ED Ultrasound: Central line placed by me using concurrent ultrasound guidance. Real time image archived in the medical record confirms vascular anatomy. RL COSME MD Sep 21, 2016 04:17
[2016-09-21 04:34] LABS: ALBUMIN 1.3 g/dl (3.3-4.9); ALBUMIN/GLOBULIN RATIO 0.72; BILIRUBIN,DIRECT 0.3 mg/dl (0.00-0.20); BILIRUBIN,INDIRECT 0.1 mg/dl (0-1.1); BILIRUBIN,TOTAL 0.4 mg/dl (0.2-1.3); CALCIUM 7.2 mg/dl (8.4-10.2); CREATININE 0.87 mg/dl (0.44-1.00); POTASSIUM 4.7 mmol/L (3.5-5.1); TOTAL PROTEIN 3.1 g/dl (6.1-8.1)
[2016-09-21 04:46] LABS: CK-MB 11.8 ng/ml (0.0-2.4)
[2016-09-21 04:53] LABS: TROPONIN-I 0.125 ng/ml (0.00-0.12)
--- NOTE | 2016-09-21 05:37 | EN ---
Date/Time of Note Date/Time of Note DATE: 09/21/16 TIME: 05:15 Event Note Medicine Medicine Event Note S: Was called to the room by the nurse as patient is complaining of pain and she was also noticed to be diaphoretic. Upon my examination at the bedside patient stated that she was then abdominal pain however she did not want any pain medication she did not want to become addicted. As I observed the patient she did look diaphoretic she looked in distress. She also stated that she was having some shortness of breath. She denies chest pain. On observation of her oral cavity she did have dark material on her tongue. Her blood vital signs at that time were stable aside from the fact that she was tachycardic at around 110s. At that time it was determined to order stat labs CBC BMP lactate troponins and EKG. stat CT of the chest abdomen pelvis was also ordered. Further discussion was also had with the surgeon he was also in agreement and we are both agreeable to send the patient to closer monitoring in the ICU. After patient underwent her imaging studies she was brought to the ICU at which time the patient was observed to be decompensating. She was noted to have decreased oxygen saturation as well as hypotension. She was also tachycardic. At that time stat ABG was ordered. Which showed a pH of 6.8 CO2 of 32 and a bicarb of 5.8. The ER was called stat and was asked to help with immediate intubation as well as central line placement. Prior to intubation her oral cavity was suctioned which yielded approximately 700 cc of dark matter. Also she had Shore catheter inserted which also yielded very similar dark matter. Levo fed was initiated patient was also given 6 A of IV bicarb followed by a bicarbonate drip. She was also started on Levophed initially she was given IV fluid bolus of normal saline. Lactate was also observed to be 15.8. Patient was already on IV antibiotics. General: Patient was observed to be in distress, also showing shallow breathing. She was subsequently intubated. HEENT: Dark matter coming from the oral cavity with dark matter draining from the NG tube. Neck: Supple with full range of motion. No rigidity or meningismus Lungs: Coarse breath sounds bilateral Heart: Sinus tachycardia Abdomen: Soft, mild distention noted of the abdomen, fecal matter observed at the left lower quadrant catheter. Extremities: Normal to inspection, no edema no cyanosis Neurologic: Patient was originally answering questions appropriately and she was alert however she was observed to decompensate and she subsequently needed to be intubated. Pertinent labs: Initial CBC yielded a stable hemoglobin from her previous hemoglobin. BMP: Potassium 6.9, bicarb of 12 creatinine of 1.13 these were all elevated from her previous BMP that was done earlier in the a.m. on the on . Patient had a lactate level of 15.6. ABG: PH of 6.8 CO2 of 32 04/10/2015 and a bicarb of 5.8. CT scan impression: Left anterior pelvic drainage catheter extending into the mid upper pelvis. There is mild pneumoperitoneum which could be secondary to drainage catheter. Follow-up is recommended. Diffuse intra-abdominal stranding and mild to moderate ascites. Mildly dilated and thickened loops of small and large bowel represents an ileus and nonspecific enterocolitis. There is no bowel obstruction. Bilateral moderate to large pleural effusions with underlying atelectasis. Mild dilatation of the esophagus and small hiatal hernia. Trace inferior pericardial effusion. Vascular calcifications reflective of atherosclerosis. Anasarca. Right-sided ventriculoperitoneal catheter. Telemetry monitoring: Appears to be sinus tachycardia at approximately 120 bpm Assessment and plan: #1 septic shock: This likely secondary to underlying gastroesophageal etiology. At the current time we will continue IV fluid resuscitation, pressor support, IV antibiotics. Bicarb drip., Will also initiate Protonix drip though hemoglobin appears stable, however with a dark contents in her container unsure if it is blood or fecal matter. Will continue NG tube to low intermittent suction for bowel decompression. #2 VDRF: Patient currently intubated, continue ventilator management. Repeat ABG. #3 hyperkalemia. IV insulin and dextrose and Kayexalate, will hold albuterol secondary to tachycardia. Further treatment strategy would be implemented as per the clinical course, greater than 120 minutes of critical care time was spent on the care of this patient. MAEGAN PHAM Sep 21, 2016 05:26
[2016-09-21 05:52] LABS: ADD SCAN DIFF NO
[2016-09-21] MEDS: MEROPENEM 500MG/50 ML (PMX) 50 ML IVPB SCH ×3 (05:52→21:54)
[2016-09-21 05:56] LABS: ABNORMAL IP MESSAGE 1; HEMATOCRIT 28.5 % (37.0-47.0); HEMOGLOBIN 8.8 g/dl (12.0-16.0); MEAN CORPUSCULAR HGB CONC 30.9 g/dl (32.0-37.0); MEAN CORPUSCULAR VOLUME 84.3 fl (82.0-101.0); MEAN PLATELET VOLUME 10.9 fl (7.4-10.4); PLATELET COUNT 154 10^3/UL (140-415); RED BLOOD COUNT 3.38 10^6/ul (4.20-5.40); RED CELL DISTRIBUTION WIDTH 15.4 % (11.5-14.5); WHITE BLOOD COUNT 4.9 10^3/ul (4.8-10.8)
[2016-09-21 05:57] LABS: AADO2 Arterial 302.1 mmHg (7.0-24.0); Allen Test ACCEPTAB; Arterial Base Excess -9.2 mmol/L (-3.0-3); Arterial COHb 0.3 % (0.0-3.0); Arterial Fraction of Oxyhgb 93.9 % (93.0-99.0); Arterial HCO3 16.7 mmol/L (22.0-26.0); Arterial MetHb 0.2 % (0.0-1.5); Arterial Total Hemglobin 9.7 g/dl (12.0-18.0); MODE VENT - AC
[2016-09-21] MEDS ORDERED: OCTREOTIDE 100 MCG in SOD CHLORIDE 0.9% 50 ML IVPB SCH (06:00)
[2016-09-21] MEDS: VANCOMYCIN 500MG/NS (PMX) 100 ML IVPB SCH ×2 (06:15→18:03)
[2016-09-21] MEDS ORDERED: ROCURONIUM 50 MG INJ ONE ×4 (07:00→13:46)
[2016-09-21] MEDS ORDERED: PROPOFOL 1000 MG INJ ONE (07:00)
[2016-09-21] MEDS ORDERED: SUCCINYLCHOLINE CHLORIDE 100 MG/5 ML SYG IV ONE (07:00)
[2016-09-21 07:02] LABS: ALBUMIN 1.4 g/dl (3.3-4.9); ALBUMIN/GLOBULIN RATIO 0.73; BILIRUBIN,DIRECT 0.1 mg/dl (0.00-0.20); BILIRUBIN,TOTAL 0.1 mg/dl (0.2-1.3); CALCIUM 7.1 mg/dl (8.4-10.2); CREATININE 0.86 mg/dl (0.44-1.00); MAGNESIUM 2.7 mg/dl (1.7-2.5); POTASSIUM 4.8 mmol/L (3.5-5.1); TOTAL PROTEIN 3.3 g/dl (6.1-8.1)
--- NOTE | 2016-09-21 08:17 | PN ---
Date/Time of Note Date/Time of Note DATE: 09/21/16 TIME: 08:00 Assessment/Plan Lines/Catheters IV Catheter Type (from Nrs): Central Line Shore in Place (from Nrs): Yes Assessment/Plan Assessment/Plan [facility] Progress Note Date of Service: 09/21/2016 Place of service: [facility] intensive care unit Today's Assessment & Plan: Overall deteriorated with need for intubation and showing signs of shock. Additional findings are: Paralytic ileus, renal insufficiency with decreased urine output, cardiac strain with slight increase in troponin, but sinus tachycardia and no evidence of ST depression or other signs of cardiac ischemic disease, lung failure with need for intubation as mentioned, cardiovascular compromise with need for start of pressors, and anemia which is likely due to dilutional effects of resuscitation (but GI source of hemorrhage could not be completely ruled out at this time). I do not believe that the patient will get much better with further resuscitation and only intervention that will potentially reverse this process would be an exploration of the abdominal cavity in the operating room with likely need for partial colectomy and possibly , an ostomy placement. I do not believe that the patient has a primary cardiac issue or risks that could be reduced by intervention. We have attempted to obtain a stat cardiology consultation, but I will not delay the case to complete this consultation since the patient has an emergency which needs to be addressed in the operating room stat and the above-mentioned reason. I had discussed these in detail with the patient and her previously and our plan was to perform this operation this morning. I called and updated the patient's on the phone and again affirmed his consent for the operation for his as well (patient herself not able to give full consent at this time in my opinion; however, I did obtain her consent yesterday morning). I believe that the patient and still understand all of the above and agree with the procedure. I also discussed with Dr. Fu (anesthesiologist ) and we agreed about the decision to go to the operating room with above mentioned rationale. I also contacted Dr. Adam Miner (neurosurgeon), who kindly agreed to be present for management of the CONSULTANT shunt. With above assessment, I've recommended the following for today: 1. To the operating room for above operation Thank you again for your great care of this very pleasant patient and wonderful family. If there are any questions, please feel free to call me at [phone]. Nature of presenting problem: High severity Please note that, given the multiple number of diagnoses or management options, the extensive amount and/or complexity of data needed to be reviewed, and the high risk of complications and/or morbidity or mortality, this qualifies as high complexity type of decision-making. Disclaimer: Inadvertent spelling and grammatical errors are likely due to EHR/ dictation software use and do not reflect on the quality of delivered patient care. Also, please note that the electronic time recorded on this node does not necessarily reflect the actual time of the visit. Updated Clinical Summary: A very pleasant 70-year-old lady without significant known past medical history other than a CONSULTANT shunt placement many years ago which she did not remember or report, presenting with what appears to be a sigmoid colon abscess or pericolonic abscess, which seemed to be a complication of diverticulitis. S/p IR drainage 09/09/16 with removal of 20 cc pus and placement of a 10 Fr. pigtail catheter at [facility]. D/c home 09/12/16. Re-presented to [facility] 09/15/16 after being diverted from [facility] (due to internal disaster diversion) where CT was done showing adequate placement of the percutaneous drain near the sigmoid colon and decompressed sigmoid colon abscess, no obvious free air or significant spillage of stool in the abdominal cavity, and incidental finding of tail of the CONSULTANT shunt in the pelvis (new from right upper quadrant position of the same drain on the CT scan at [facility]). Transfer to [facility] 09/15/2016 for further cares. S/p upsizing of drain to 12 Fr pigtail on 09/17/16 (communication with colon demonstrated; no obvious free communication to rest of peritoneal space). Patient decompensated in the early hours of the morning on 09/21/2016 and had to be transferred to the intensive care unit with need for endotracheal tube intubation, central line placement, and resuscitation for treatment of shock with lactic acidosis and evidence of peritonitis and free air on the new chest, abdomen, and pelvis CT scan. COMORBIDITIES: 1. Status post ventriculoperitoneal shunt placement. 2. S/p IR drainage 09/09/16 with removal of 20 cc pus and placement of a 10 Fr. pigtail catheter at [facility]. 3. Readmission to [facility] 09/15/16 with upsizing of drain to 12 Fr pigtail on 09/17/16 (communication with colon demonstrated; no obvious free communication to rest of peritoneal space) Subjective: Events as above. Patient not very interactive and only able to open her eyes and follow very simple commands (barely able to squeeze my hand but did make an attempt). Did not indicate major abdominal pain although her ability to respond was significantly limited and the patient was also on propofol. Previous to this, the report I received from nursing staff as well as Dr. Murillo was that the patient was neurologically intact throughout the period prior to intubation. Objective: Vitals: See below Exam: GENERAL: On exam, the patient was laying in bed, intubated and appeared to be comfortable and in no acute distress. ABDOMEN: Soft, no major evidence of tenderness and still somewhat distended. Drain with minimal purulent fluid in the bag and small brown/black output around the drain site. There are no peritoneal signs or guarding. NG tube with brownish output. SKIN: Skin appears to be pink and feels warm to touch. NEUROLOGIC: Patient is arousable to voice and appears to follow simple commands. Exam/Review of Systems Vital Signs Vitals Vital Signs Date Time Temp Pulse Resp B/P Pulse Ox O2 Delivery O2 Flow Rate FiO2 09/21/16 07:35 86 24 98 60 09/21/16 07:30 100/76 Mechanical Ventilator 09/21/16 04:00 97.8 Intake and Output 09/20/16 09/20/16 09/21/16 15:00 23:00 07:00 Intake Total 230 ml 3936 ml Output Total 0 ml 0 ml 2200 ml Balance 0 ml 230 ml 1736 ml Results Result Diagram: 09/21/16 0541 09/21/16 0541 ALEXSANDER DUARTE M.D. Sep 21, 2016 08:11
[2016-09-21] MEDS ORDERED: BUPIVACAINE 0.25%/EPI (SDV) 30 ML INJ ONE (08:24)
[2016-09-21] MEDS ORDERED: GELATIN SIZE 100 SPONGE ONE (08:24)
[2016-09-21] MEDS ORDERED: THROMBIN 5000 UNIT VIAL ONE (08:24)
--- NOTE | 2016-09-21 08:36 | PN ---
Date/Time of Note Date/Time of Note DATE: 09/21/16 TIME: 08:27 Assessment/Plan VTE Prophylaxis VTE Prophylaxis Intervention: SCD's Lines/Catheters IV C[facility]ter Type (from [facility] Central Line Central line still needed: Yes Urinary Cath still in place: Yes Reason Cath still needed: other (indicate) Assessment/Plan Assessment/Plan This is a 70-year-old female who was seen about 2 weeks to admission in [place] and found to have diverticulitis with abscess. Drain was placed and patient was sent home with abx, patent however came back with fecal matter coming out of drain which was replaced with bigger drain 09/17/16 despite which patient has still decompensated and is being managed for the followin. Severe sepsis with systemic shock and organ dysfunction 2/2 #2 2. Non resolving diverticulitis with abscess r/o possible bowel perforation and peritonitis 3. Lactic and Metabolic acidosis 2/2 above 4. Mild troponin elevation likely type 2 from #1 5. Acute transaminitis 2/2 shock liver 6. 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 Hyponatremia likely secondary to #1 8. Severe coagulopathy also as a result of #1 9. Iron deficiency hypochromic anemia on iron infusion therapy 10. Diffuse anasarca as well as bilateral pleural effusions likely associated hypoalbuminemia 11. Probable underlying pneumonia cannot be ruled out PLAN: * Patient is being emergently taken to the OR at this time for lifesaving surgery. Patient has previously expressed consent for same surgery. * Surgical plan reviewed with Anesthesiology, Gen surgery and Neurosurgery. * Cardiology and Pulmonary consults obtained * Resume ICU care postop * Further interventions per clinical care Prophylaxis : SCDs / PPI CRITICAL CARE TIME: >35 mins Subjective 24 Hr Interval Summary Free Text/Dictation Patient had acute decompensation in status yesterday with systemic shock, metabolic acidosis and had to be intubated and transferred to ICU. She is currently being prepped for surgery with anesthesia and Neurosurgery in attandance. Currently sedated and looks comfortable. Exam/Review of Systems Vital Signs Vitals Vital Signs Date Time Temp Pulse Resp B/P Pulse Ox O2 Delivery O2 Flow Rate FiO2 09/21/16 07:35 86 24 98 60 09/21/16 07:30 100/76 Mechanical Ventilator 09/21/16 04:00 97.8 Intake and Output 09/20/16 09/20/16 09/21/16 15:00 23:00 07:00 Intake Total 230 ml 3936 ml Output Total 0 ml 0 ml 2200 ml Balance 0 ml 230 ml 1736 ml Exam GENERAL: Intubated and comfortably sedated HEENT: IVON, Intubated LUNGS: diffusely diminished and coarse BS HEART: S1, S2. No murmur, gallops or rubs. Tachycardic ABDOMEN: Soft, distended , R sided drain, GENITOURINARY: Normal female external genitalia, [place] to bedside drainage EXTREMITIES: Mild 1+ nonpitting edema bilaterally, also some hand edema bilaterally NEUROLOGIC: The patient is currently sedated. Results Result Diagram: 09/21/16 0541 09/21/16 0541 Results 24 hrs Laboratory Tests Test 09/20/16 23:42 09/21/16 00:47 09/21/16 00:50 09/21/16 02:30 White Blood Count 6.4 # Red Blood Count 4.39 Hemoglobin 11.7 L Hematocrit 39.2 Mean Corpuscular Volume 89.3 Mean Corpuscular Hemoglobin 26.7 L Mean Corpuscular Hemoglobin Concent 29.8 L Red Cell Distribution Width 15.4 H Platelet Count 257 # Mean Platelet Volume 10.3 Neutrophils % 84.0 H Lymphocytes % 7.8 L Monocytes % 5.2 Eosinophils % 0.2 Basophils % 0.5 Nucleated Red Blood Cells % 0.5 H Neutrophils # 5.4 Lymphocytes # 0.5 L Monocytes # 0.3 Eosinophils # 0.0 Basophils # 0.0 Nucleated Red Blood Cells # 0.0 Sodium Level 143 Potassium Level 6.9 #*H 6.9 *H Chloride Level 107 Carbon Dioxide Level 12 #L Anion Gap 31 #H Blood Urea Nitrogen 14 Creatinine 1.13 H Glucose Level 84 Lactic Acid Level 15.4 *H Calcium Level 9.0 Total Bilirubin 0.2 Direct Bilirubin 0.00 Indirect Bilirubin 0.2 Aspartate Amino Transf (AST/SGOT) 76 H Alanine Aminotransferase (ALT/SGPT) 23 Alkaline Phosphatase 51 Total Protein 5.4 L Albumin 2.5 L Globulin 2.90 Albumin/Globulin Ratio 0.86 Blood Gas Specimen Source Blood arterial Blood arterial Arterial Blood Date Drawn 09/21/2016 12:40:32 AM 09/21/2016 2:15:00 AM Arterial Blood pH (Temp corrected) 6.879 *L 7.204 *L Arterial Blood pCO2 (Temp correct) 32.0 L 29.3 L Arterial Blood pO2 (Temp corrected) 116.2 H 259.7 H Arterial Blood HCO3 5.8 *L 11.3 L Arterial Blood Base Excess -26.6 L -15.3 L Arterial Blood Oxygen Saturation 93.6 L 98.3 Cain Test ACCEPTAB N/A Arterial Blood Gas Puncture Site Right Radial Right Brachial Arterial Blood Carboxyhemoglobin 0 0.3 Arterial Blood Methemoglobin 0.3 0.5 Blood Gas A-a O2 Differential 103.4 H 424.0 H Oxyhemoglobin Percent 93.3 97.5 Total Hemoglobin 12.0 9.2 L Blood Gas Temperature 37.0 37.0 Blood Gas Modality NASAL CANNULA VENT - AC FiO2 36.0 100.0 Blood Gas Critical Value Read Back TMEHROTRA Giovana PONCE MD Blood Gas Notified Whom DARYL BRITO Blood Gas Notified Time 09/21/2016 12:56:45 AM 09/21/2016 2:27:10 AM Blood Gas Respiration Rate 24.0 Blood Gas Actual Respiration Rate 24 Blood Gas Tidal Volume 500.0 Blood Gas Low PEEP Setting 5.0 Test 09/21/16 03:30 09/21/16 03:32 09/21/16 05:00 09/21/16 05:41 Creatine Kinase 467 H Creatine Kinase Index 2.5 Creatinine Kinase MB (Mass) 11.80 H Troponin I 0.125 *H Amylase Level 324 H Lipase 21 L Sodium Level 149 H 151 H Potassium Level 4.7 # 4.8 Chloride Level 110 113 H Carbon Dioxide Level 20 L 18 L Anion Gap 24 #H 25 H Blood Urea Nitrogen 15 16 Creatinine 0.87 0.86 Glucose Level 110 99 Lactic Acid Level 14.8 *H 12.5 *H Calcium Level 7.2 L 7.1 L Total Bilirubin 0.4 0.1 L Direct Bilirubin 0.30 #H 0.10 # Indirect Bilirubin 0.1 0.0 Aspartate Amino Transf (AST/SGOT) 302 H 404 H Alanine Aminotransferase (ALT/SGPT) 56 70 H Alkaline Phosphatase 32 L 31 L Total Protein 3.1 #L 3.3 L Albumin 1.3 #L 1.4 L Globulin 1.80 1.90 Albumin/Globulin Ratio 0.72 0.73 Blood Gas Specimen Source Blood arterial Arterial Blood Date Drawn 09/21/2016 5:50:01 AM Arterial Blood pH (Temp corrected) 7.283 *L Arterial Blood pCO2 (Temp correct) 36.1 Arterial Blood pO2 (Temp corrected) 86.0 Arterial Blood HCO3 16.7 L Arterial Blood Base Excess -9.2 L Arterial Blood Oxygen Saturation 94.4 L Cain Test ACCEPTAB Arterial Blood Gas Puncture Site Right Brachial Arterial Blood Carboxyhemoglobin 0.3 Arterial Blood Methemoglobin 0.2 Blood Gas A-a O2 Differential 302.1 H Oxyhemoglobin Percent 93.9 Total Hemoglobin 9.7 L Blood Gas Temperature 37.0 Blood Gas Respiration Rate 24.0 Blood Gas Actual Respiration Rate 24 Blood Gas Modality VENT - AC FiO2 60.0 Blood Gas Tidal Volume 500.0 Blood Gas Low PEEP Setting 5.0 Blood Gas Critical Value Read Back MUSA Blood Gas Notified Whom CHRISTINE Blood Gas Notified Time 09/21/2016 5:56:55 AM White Blood Count 4.9 # Red Blood Count 3.38 #L Hemoglobin 8.8 #L Hematocrit 28.5 #L Mean Corpuscular Volume 84.3 Mean Corpuscular Hemoglobin 26.0 L Mean Corpuscular Hemoglobin Concent 30.9 L Red Cell Distribution Width 15.4 H Platelet Count 154 # Mean Platelet Volume 10.9 H Neutrophils % Lymphocytes % Monocytes % Eosinophils % Neutrophils # Lymphocytes # Monocytes # Eosinophils # Magnesium Level 2.7 #H Medications Medications Current Medications Morphine Sulfate (morphine) 2 mg Q4H PRN IV PAIN Last administered on 22:55; Admin Dose 2 MG; Start 09/15/16 at 23:30 Ondansetron HCl (Zofran Inj) 4 mg Q6H PRN IV NAUSEA AND/OR VOMITING Last administered on 09/20/16 21:11; Admin Dose 4 MG; Start 09/16/16 at 00:30 Acetaminophen 650 mg 650 mg Q6H PRN PO PAIN LEVEL 1-3 OR FEVER Last administered on 09/17/16 10:06; Admin Dose 650 MG; Start 09/16/16 at 00:30 Ferric Sodium Gluconate Complex 125 mg/Sodium Chloride 110 ml @ 110 mls/hr Q24H IVPB Last administered on 09/20/16 14:29; Admin Dose 110 MLS/HR; Start at 14:00; Stop 09/22/16 at 14:59 Acetaminophen (Ofirmev 1000mg/ 100ml Iv) 100 ml @ 400 mls/hr Q8H IVPB Last administered on 09/21/16 04:02; Admin Dose 400 MLS/HR; Start 09/20/16 at 12:00 ; Stop 09/22/16 at 04:14 Polyethylene Glycol (Miralax) 17 gm DAILY PO Last administered on 09/20/16 11: 44; Admin Dose 17 GM; Start 09/20/16 at 11:00 Docusate Sodium 100 mg 100 mg BID PO Last administered on 09/20/16 11:44; Admin Dose 100 MG; Start 09/20/16 at 11:00 Meropenem/Sodium Chloride 50 ml @ 200 mls/hr Q8 IVPB Last administered on 09/21 05:52; Admin Dose 200 MLS/HR; Start 09/20/16 at 22:00 Fluconazole/ Sodium Chloride 50 ml @ 50 mls/hr Q24H IVPB Last administered on 16:34; Admin Dose 50 MLS/HR; Start 09/20/16 at 16:30 Vancomycin HCl (Vancocin) 100 ml @ 100 mls/hr Q12H IVPB Last administered on 06:15; Admin Dose 100 MLS/HR; Start 09/21/16 at 06:00 Pantoprazole 40 mg 40 mg BID@06,18 IV Last administered on 09/21/16 00:02; Admin Dose 40 MG; Start 09/21/16 at 00:00 Sodium Bicarbonate 150 meq/Sodium Chloride 1,000 ml @ 125 mls/hr Q8H IV Last administered on 09/21/16 01:46; Admin Dose 125 MLS/HR; Start 09/21/16 at 01:00 Norepinephrine 250 ml @ 1.875 mls/ hr TITRATE IV Last administered on 07:12; Admin Dose 3.75 MLS/HR; Start 09/21/16 at 01:15; Stop 09/21/16 at 08 :59 Norepinephrine 16 mg/Dextrose 500 ml @ 1.87 mls/hr TITRATE IV ; Start 09/21/16 at 09:00 Pantoprazole 80 mg/Sodium Chloride 100 ml @ 10 mls/hr Q10H IV Last administered on 09/21/16 04:09; Admin Dose 10 MLS/HR; Start 09/21/16 at 02:15 Propofol 100 ml @ 1.671 mls/ hr Q12H IV Last administered on 09/21/16 06:23; Admin Dose 1.671 MLS/HR; Start 09/21/16 at 02:30 Sodium Chloride (NS) 1,000 ml @ 1,000 mls/hr Q1H ONCE IV Last administered on 09/21/16 07:31; Admin Dose 1,000 MLS/HR; Start 09/21/16 at 07:30; Stop at 08:29 Procedures Procedures PROCEDURE: CT chest, abdomen and pelvis without contrast. CLINICAL INDICATION: Shortness of breath and abdominal pain. TECHNIQUE: CT of the chest, abdomen and pelvis was performed on a multi- detector high-resolution CT scanner. Contiguous axial images were obtained without intravenous contrast. Coronal and sagittal reformatted images were also obtained. Images were reviewed on the PACS workstation. One or more of the following dose reduction techniques were used: - Automated exposure control. - Adjustment of the mA and/or kV according to patient size. - Use of iterative reconstruction technique. Exam CTD/vol = 11.50 mGy. Total exam DLP = 836.03 mGy-cm. COMPARISON: None. FINDINGS: Chest: There is no evidence of chest wall mass. The visualized thyroid gland is unremarkable. There are no enlarged axillary lymph nodes. There are no enlarged mediastinal or hilar lymph nodes. The heart is normal in size. There is a trace inferior pericardial effusion. The aorta is of normal course and caliber with scattered atherosclerotic calcifications. There are bilateral moderate to large pleural effusions with underlying atelectasis. The central tracheobronchial tree is within normal limits. There is mild dilatation of the esophagus. There is a small hiatal hernia. Abdomen: The liver is normal in size. There is a 7 mm hypodense lesion within the left lobe of the liver which is too small to further characterize. There is no dilatation of the biliary tree. The gallbladder is not distended. The spleen, pancreas and bilateral adrenal glands are within normal limits. Bilateral kidneys are normal in size with a small cyst within the upper pole of the left kidney. There is mild scarring within the upper pole of the left kidney with punctate cortical calcification. There is no radiopaque renal or ureteral calculus identified. There is no hydronephrosis or hydroureter. There is no retroperitoneal adenopathy. The abdominal aorta is of normal caliber with scattered atherosclerotic calcifications. There is diffuse intra-abdominal stranding and mild to moderate ascites. There are mildly dilated and thickened loops of small and large bowel. There is no bowel obstruction. There is a left anterior pelvic pigtail drainage catheter extending to the mid upper pelvis. There is mild pneumoperitoneum within the anterior and upper abdomen. The appendix is not visualized. There is a right- sided ventriculoperitoneal catheter extending to the lower abdomen. Pelvis: The bladder not distended for optimal evaluation. There is moderate pelvic free fluid. There is no significant pelvic adenopathy. There is diffuse subcutaneous stranding consistent with anasarca. Evaluation of the osseous structures demonstrates no suspicious lytic or blastic lesion. IMPRESSION: Left anterior pelvic drainage catheter extending into the mid upper pelvis. There is mild pneumoperitoneum which could be secondary to drainage catheter. Follow-up is recommended. Diffuse intra-abdominal stranding and mild to moderate ascites. Mildly dilated and thickened loops of small and large bowel represents an ileus and nonspecific enterocolitis. There is no bowel obstruction. Bilateral moderate to large pleural effusions with underlying atelectasis. Mild dilatation of the esophagus and small hiatal hernia. Trace inferior pericardial effusion. Vascular calcifications reflective of atherosclerosis. Anasarca. Right-sided ventriculoperitoneal catheter. A call report was made to the patient's todd nurse (Milly) at 02:50 a.m. .Kang White MD, Date Time Electronically viewed and signed by .Kang White MD, MD on 09/21/2016 02:50 .T/ CC: MAEGAN PHAM BOLATITO M. Sep 21, 2016 08:35
[2016-09-21] MEDS: POLYETHYLENE GLYCOL 17 GM PACKET PO SCH (08:50)
[2016-09-21] MEDS: DOCUSATE SODIUM 100 MG CAP PO SCH ×2 (08:50→20:51)
[2016-09-21 09:03] LABS: INR 4.34; PROTIME 42.3 Sec (12.2-14.2); PT RATIO 3.3
[2016-09-21 09:04] LABS: PARTIAL THROMBOPLASTIN TIME 47.9 Sec (25.0-35.0)
[2016-09-21 09:09] LABS: ALBUMIN 1.7 g/dl (3.3-4.9); ALBUMIN/GLOBULIN RATIO 0.77; CALCIUM 6.9 mg/dl (8.4-10.2); CREATININE 0.92 mg/dl (0.44-1.00); POTASSIUM 4.9 mmol/L (3.5-5.1); TOTAL PROTEIN 3.9 g/dl (6.1-8.1)
[2016-09-21] MEDS ORDERED: MIDAZOLAM 1 MG/ML 2 ML INJ ONE (09:26)
[2016-09-21] MEDS ORDERED: PHENYLephrine (100 MCG/ML) 5ML SYG ONE ×3 (09:33→13:59)
--- NOTE | 2016-09-21 09:33 | CONS ---
Date/Time of Note Date/Time of Note DATE: 09/21/16 TIME: 09:21 Assessment/Plan Assessment/Plan Problems: (1) Hydrocephalus Comment: Patient with GAMBLING SUPERVISOR shunt in place, abdominal abscess, and plans to undergo abdominal exploration. Shunt was initially placed >15 years ago 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, and there have been no shunt issues since. Given this history, there is a chance that shunt no longer active and needed as is sometimes the case with post-hemorrhage hydrocephalus. In this situation, externalization of GAMBLING SUPERVISOR shunt is appropriate. Shunt is palpable R clavicle and should be easily accessed. I discussed with patient's family member goals and risks. Will need externalization during acute phase of illness. While externalized, we will be able to assess whether she truly still needs shunt. If not, would then plan to remove distal portion at later date. If shunt still needed (ventricles enlarge when tubing clamped), then distal shunt will need to be replaced. If abdomen not a suitable site given current issues, then change to ventriculopleural or ventriculoatrial shunt may be necessary. Consultation Date/Type/Reason Admit Date/Time Sep 15, 2016 at 21:35 Date of Consultation: Sep 21, 2016 Type of Consultation: Neurosurgery Reason for Consultation GAMBLING SUPERVISOR shunt assessment Hx of Present Illness Asked to see this patient with GAMBLING SUPERVISOR shunt in place. She is under care for colon perforation and initially localized abscess. Previously, abscess thought not to be spread and no diffuse peritonitis. She has deteriorated. Now will require exploration of abdomen. Intubated. I spoke with patient's ex- and mutual caregiver. [place] sink maker over the phone. Shunt was initially placed in 2000 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. Since that time there have been no issues with shunt which has not required further investigation or manipulation. Intubated and critically ill. Subjective hx not possible: pt critical Gastrointestinal: pain Psychological: anxiety Past Medical History Medical History: other (GAMBLING SUPERVISOR shunt placed 2000 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) Social History Alcohol Use: none Smoking Status: Unknown if ever smoked Drug Use: none Exam/Review of Systems Vital Signs Vitals Vital Signs Date Time Temp Pulse Resp B/P Pulse Ox O2 Delivery O2 Flow Rate FiO2 09/21/16 08:45 112 34 123/81 99 Mechanical Ventilator 09/21/16 07:35 60 09/21/16 04:00 97.8 Intake and Output 09/20/16 09/20/16 09/21/16 15:00 23:00 07:00 Intake Total 230 ml 3936 ml Output Total 0 ml 0 ml 2200 ml Balance 0 ml 230 ml 1736 ml Exam Eyes: PERRL Additional Comments shunt tubing easily palpable over R clavicle Results I reviewed chest X-ray and CT. Shunt tubing seen on R and appears continuous from neck to abdomen. Result Diagram: 09/21/16 0541 09/21/16 0541 Results 24 hrs Laboratory Tests Test 09/20/16 23:42 09/21/16 00:47 09/21/16 00:50 09/21/16 02:30 White Blood Count 6.4 # Red Blood Count 4.39 Hemoglobin 11.7 L Hematocrit 39.2 Mean Corpuscular Volume 89.3 Mean Corpuscular Hemoglobin 26.7 L Mean Corpuscular Hemoglobin Concent 29.8 L Red Cell Distribution Width 15.4 H Platelet Count 257 # Mean Platelet Volume 10.3 Neutrophils % 84.0 H Lymphocytes % 7.8 L Monocytes % 5.2 Eosinophils % 0.2 Basophils % 0.5 Nucleated Red Blood Cells % 0.5 H Neutrophils # 5.4 Lymphocytes # 0.5 L Monocytes # 0.3 Eosinophils # 0.0 Basophils # 0.0 Nucleated Red Blood Cells # 0.0 Sodium Level 143 Potassium Level 6.9 #*H 6.9 *H Chloride Level 107 Carbon Dioxide Level 12 #L Anion Gap 31 #H Blood Urea Nitrogen 14 Creatinine 1.13 H Glucose Level 84 Lactic Acid Level 15.4 *H Calcium Level 9.0 Total Bilirubin 0.2 Direct Bilirubin 0.00 Indirect Bilirubin 0.2 Aspartate Amino Transf (AST/SGOT) 76 H Alanine Aminotransferase (ALT/SGPT) 23 Alkaline Phosphatase 51 Total Protein 5.4 L Albumin 2.5 L Globulin 2.90 Albumin/Globulin Ratio 0.86 Blood Gas Specimen Source Blood arterial Blood arterial Arterial Blood Date Drawn 09/21/2016 12:40:32 AM 09/21/2016 2:15:00 AM Arterial Blood pH (Temp corrected) 6.879 *L 7.204 *L Arterial Blood pCO2 (Temp correct) 32.0 L 29.3 L Arterial Blood pO2 (Temp corrected) 116.2 H 259.7 H Arterial Blood HCO3 5.8 *L 11.3 L Arterial Blood Base Excess -26.6 L -15.3 L Arterial Blood Oxygen Saturation 93.6 L 98.3 Cain Test ACCEPTAB N/A Arterial Blood Gas Puncture Site Right Radial Right Brachial Arterial Blood Carboxyhemoglobin 0 0.3 Arterial Blood Methemoglobin 0.3 0.5 Blood Gas A-a O2 Differential 103.4 H 424.0 H Oxyhemoglobin Percent 93.3 97.5 Total Hemoglobin 12.0 9.2 L Blood Gas Temperature 37.0 37.0 Blood Gas Modality NASAL CANNULA VENT - AC FiO2 36.0 100.0 Blood Gas Critical Value Read Back TMEHROTRA Giovana PONCE MD Blood Gas Notified Whom DARYL BRITO Blood Gas Notified Time 09/21/2016 12:56:45 AM 09/21/2016 2:27:10 AM Blood Gas Respiration Rate 24.0 Blood Gas Actual Respiration Rate 24 Blood Gas Tidal Volume 500.0 Blood Gas Low PEEP Setting 5.0 Test 09/21/16 03:30 09/21/16 03:32 09/21/16 05:00 09/21/16 05:41 Creatine Kinase 467 H Creatine Kinase Index 2.5 Creatinine Kinase MB (Mass) 11.80 H Troponin I 0.125 *H Amylase Level 324 H Lipase 21 L Sodium Level 149 H 151 H Potassium Level 4.7 # 4.8 Chloride Level 110 113 H Carbon Dioxide Level 20 L 18 L Anion Gap 24 #H 25 H Blood Urea Nitrogen 15 16 Creatinine 0.87 0.86 Glucose Level 110 99 Lactic Acid Level 14.8 *H 12.5 *H Calcium Level 7.2 L 7.1 L Total Bilirubin 0.4 0.1 L Direct Bilirubin 0.30 #H 0.10 # Indirect Bilirubin 0.1 0.0 Aspartate Amino Transf (AST/SGOT) 302 H 404 H Alanine Aminotransferase (ALT/SGPT) 56 70 H Alkaline Phosphatase 32 L 31 L Total Protein 3.1 #L 3.3 L Albumin 1.3 #L 1.4 L Globulin 1.80 1.90 Albumin/Globulin Ratio 0.72 0.73 Blood Gas Specimen Source Blood arterial Arterial Blood Date Drawn 09/21/2016 5:50:01 AM Arterial Blood pH (Temp corrected) 7.283 *L Arterial Blood pCO2 (Temp correct) 36.1 Arterial Blood pO2 (Temp corrected) 86.0 Arterial Blood HCO3 16.7 L Arterial Blood Base Excess -9.2 L Arterial Blood Oxygen Saturation 94.4 L Cain Test ACCEPTAB Arterial Blood Gas Puncture Site Right Brachial Arterial Blood Carboxyhemoglobin 0.3 Arterial Blood Methemoglobin 0.2 Blood Gas A-a O2 Differential 302.1 H Oxyhemoglobin Percent 93.9 Total Hemoglobin 9.7 L Blood Gas Temperature 37.0 Blood Gas Respiration Rate 24.0 Blood Gas Actual Respiration Rate 24 Blood Gas Modality VENT - AC FiO2 60.0 Blood Gas Tidal Volume 500.0 Blood Gas Low PEEP Setting 5.0 Blood Gas Critical Value Read Back GiovanaAMY Blood Gas Notified Whom CHRISTINE Blood Gas Notified Time 09/21/2016 5:56:55 AM White Blood Count 4.9 # Red Blood Count 3.38 #L Hemoglobin 8.8 #L Hematocrit 28.5 #L Mean Corpuscular Volume 84.3 Mean Corpuscular Hemoglobin 26.0 L Mean Corpuscular Hemoglobin Concent 30.9 L Red Cell Distribution Width 15.4 H Platelet Count 154 # Mean Platelet Volume 10.9 H Neutrophils % Lymphocytes % Monocytes % Eosinophils % Neutrophils # Lymphocytes # Monocytes # Eosinophils # Magnesium Level 2.7 #H Test 09/21/16 08:25 Prothrombin Time Pending Prothrombin Time Ratio 3.3 INR International Normalized Ratio 4.34 Activated Partial Thromboplast Time 47.9 H Medications Medications Current Medications Morphine Sulfate (morphine) 2 mg Q4H PRN IV PAIN Last administered on 22:55; Admin Dose 2 MG; Start 09/15/16 at 23:30 Ondansetron HCl (Zofran Inj) 4 mg Q6H PRN IV NAUSEA AND/OR VOMITING Last administered on 09/20/16 21:11; Admin Dose 4 MG; Start 09/16/16 at 00:30 Acetaminophen 650 mg 650 mg Q6H PRN PO PAIN LEVEL 1-3 OR FEVER Last administered on 09/17/16 10:06; Admin Dose 650 MG; Start 09/16/16 at 00:30 Ferric Sodium Gluconate Complex 125 mg/Sodium Chloride 110 ml @ 110 mls/hr Q24H IVPB Last administered on 09/20/16 14:29; Admin Dose 110 MLS/HR; Start at 14:00; Stop 09/22/16 at 14:59 Acetaminophen (Ofirmev 1000mg/ 100ml Iv) 100 ml @ 400 mls/hr Q8H IVPB Last administered on 09/21/16 04:02; Admin Dose 400 MLS/HR; Start 09/20/16 at 12:00 ; Stop 09/22/16 at 04:14 Polyethylene Glycol (Miralax) 17 gm DAILY PO Last administered on 09/20/16 11: 44; Admin Dose 17 GM; Start 09/20/16 at 11:00 Docusate Sodium 100 mg 100 mg BID PO Last administered on 09/20/16 11:44; Admin Dose 100 MG; Start 09/20/16 at 11:00 Meropenem/Sodium Chloride 50 ml @ 200 mls/hr Q8 IVPB Last administered on 09/21 05:52; Admin Dose 200 MLS/HR; Start 09/20/16 at 22:00 Fluconazole/ Sodium Chloride 50 ml @ 50 mls/hr Q24H IVPB Last administered on 16:34; Admin Dose 50 MLS/HR; Start 09/20/16 at 16:30 Vancomycin HCl (Vancocin) 100 ml @ 100 mls/hr Q12H IVPB Last administered on 06:15; Admin Dose 100 MLS/HR; Start 09/21/16 at 06:00 Pantoprazole 40 mg 40 mg BID@06,18 IV Last administered on 09/21/16 00:02; Admin Dose 40 MG; Start 09/21/16 at 00:00 Sodium Bicarbonate 150 meq/Sodium Chloride 1,000 ml @ 125 mls/hr Q8H IV Last administered on 09/21/16 01:46; Admin Dose 125 MLS/HR; Start 09/21/16 at 01:00 Norepinephrine 16 mg/Dextrose 500 ml @ 1.87 mls/hr TITRATE IV ; Start 09/21/16 at 09:00 Pantoprazole 80 mg/Sodium Chloride 100 ml @ 10 mls/hr Q10H IV Last administered on 09/21/16 04:09; Admin Dose 10 MLS/HR; Start 09/21/16 at 02:15 Propofol (Diprivan) 100 ml @ 1.671 mls/ hr Q12H IV Last administered on 06:23; Admin Dose 1.671 MLS/HR; Start 09/21/16 at 02:30 NIRAJ LANDRY MD Sep 21, 2016 09:32
--- NOTE | 2016-09-21 10:28 | HPN ---
Date/Time of Note Date/Time of Note DATE: 09/21/16 TIME: 08:28 Interval H&P Admission Note Pt. seen H&P reviewed: No system changes Pt. seen H&P reviewed. No system changes (I attest that I have seen and examined the patient and reviewed the operation in detail, as well as its risks , benefits and alternatives of the operation). I attest that I have seen and examined the patient and reviewed in detail the operation, and its associated risks, benefits and alternative. I have answered all the patient's questions to the best of my ability and the patient wishes to proceed. Please refer to rest of electronic medical record for additional updates. ALEXSANDER DUARTE M.D. Sep 21, 2016 10:28
--- NOTE | 2016-09-21 10:41 | OPR ---
Date/Time of Note Date/Time of Note DATE: 09/21/16 TIME: 10:39 Operative Report Preoperative Diagnosis Hydrocephalus, JOURNALISM INSTRUCTOR shunt, abdominal abscess Postoperative Diagnosis same Operation/Procedure Performed Externalization of JOURNALISM INSTRUCTOR shunt Surgeon: NIRAJ LANDRY MD Anesthesia: general Estimated Blood Loss: minimal Specimens CSF for routine studies distal shunt catheter for gross pathology Complications: None NIRAJ LANDRY MD Sep 21, 2016 10:41
--- NOTE | 2016-09-21 10:48 | OPR ---
Date/Time of Note Date/Time of Note DATE: 09/21/16 TIME: 10:41 Operative Report Procedure Date: Sep 21, 2016 Preoperative Diagnosis Hydrocephalus, INSIDE ACCOUNT REPRESENTATIVE shunt, abdominal abscess Postoperative Diagnosis same Operation Performed Externalization of INSIDE ACCOUNT REPRESENTATIVE shunt Surgeon: NIRAJ LANDRY MD Anesthesia: general Estimated Blood Loss: minimal Specimens CSF for routine studies distal shunt catheter for gross pathology Tubes/Drains externalized INSIDE ACCOUNT REPRESENTATIVE shunt to gravity at heart level Complications: None Pt Condition Post Procedure: critical Indications This patient with INSIDE ACCOUNT REPRESENTATIVE shunt was undergoing emergency abdominal exploration for abscess / peritonitis. In this setting, externalization of shunt was indicated. No other reasonable options. I discussed goals and risks with patient's next of kin. Need for externalization during acute illness. We will assess need for shunt and shunt may need to be replaced. If abdomen not suitable, may need conversion to pleural or atrial shunt. Operative\Procedure Findings Shunt easily accessed at clavicle. Clear CSF sent for routine studies. Procedure Description The patient was seen in OR prior to beginning abdominal exploration. Supine position. Area over R clavicle was sterilly prepped and draped. 1cc Marcaine with epinephrine used as local anesthetic. 1cm transverse incision made over tubing with #15 scalpel. Bovie used to come through subcutaneous tissue and tubing was exposed. Distal tubing pulled out through incision. Clear CSF noted from end, flowing spontaneously. Distal 10cm cut off with scissors for pathology , and 2cc CSF obtained for routine studies. Tubing attached to connector and to drainage bag, which was leveled at heart. 2 interupted, inverted subcutaneous 3- 0 Vicryl sutures used, and 3 2-0 nylon sutures placed in interrupted fashion in skin. Wound was dressed. Patient in critical condition, in OR awaiting laparotomy. NIRAJ LANDRY MD Sep 21, 2016 10:48
--- NOTE | 2016-09-21 10:58 | CONS ---
Date/Time of Note Date/Time of Note DATE: 09/21/16 TIME: 10:48 Assessment/Plan Assessment/Plan Chief Complaint/Hosp Course 1. hyperkalemia- spurious. already treated with shifting measures. possibly due to shifting sec to severe acidosis. ro other cause. corrected. monitor. 2. Severe Sepsis likely 2/2 diverticulitis with abscess that has failed drain placement r/o probable bowel perforation r/o peritonitis 3. Hx of REPLENISHMENT ASSOCIATE shunt placement: 4. Iron deficiency anemia 5. Leonard Pleural effusion with likely L sided pneumonia 6. vdrf 7. metabolic acidosis- related to lactic acidosis from sepsis. improving. 8. hypernatremia- related to fluid shifts and/or volume resuscitation efforts. cont volume resuscitation. check urine studies. Problems: Consultation Date/Type/Reason Admit Date/Time Sep 15, 2016 at 21:35 Date of Consultation: Sep 21, 2016 Type of Consultation: neph Hx of Present Illness This is a 70-year-old female with diverticulitis with abscess s/p drain placement whose course has been complicated by Severe Sepsis and Leonard Pleural effusion with likely L sided pneumonia. Patient had acute decompensation in status with systemic shock, metabolic acidosis and had to be intubated and transferred to ICU. noted to have hyperkalemia and hypernatremia and metabolic acidosis has continued good uo desptie. Past Medical History Diverticulitis, brain hemorrhage Past Surgical History Pigtail catheter, REPLENISHMENT ASSOCIATE shunt Family History Significant Family History: no pertinent family hx Social History Alcohol Use: none Smoking Status: Unknown if ever smoked Drug Use: none 14 pt ros attempted but difficult to obtain and negative per report unless otherwise stated. recent ros as below Eyes : No pain discharge or redness or change in visual acuity ENT: No pain, sore throat, congestion, congestion, dysphagia or discharge Respiratory: No shortness of breath, cough, sputum, wheezing, or pleuritic pain Cardiovascular: No chest pain, palpitation, PND, or edema GI : As per HPI Genitourinary: As per HPI Musculoskeletal: No joint pain, back pain, neck pain, restricted range of motion in neck or joints Skin: No rash, bruising or hives Neuro: No headache, dizziness, syncope, seizure, focal weakness Endocrine: No polyuria, polydipsia, temperature intolerance Psych: No hallucination, depression, anxiety or suicidal ideation Gastrointestinal: pain Psychological: anxiety Past Medical History Medical History: other (REPLENISHMENT ASSOCIATE shunt placed 2000 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) Social History Alcohol Use: none Smoking Status: Unknown if ever smoked Drug Use: none Exam/Review of Systems Vital Signs Vitals Vital Signs Date Time Temp Pulse Resp B/P Pulse Ox O2 Delivery O2 Flow Rate FiO2 09/21/16 09:00 108 26 111/73 98 Mechanical Ventilator 09/21/16 07:35 60 09/21/16 04:00 97.8 Intake and Output 09/20/16 09/20/16 09/21/16 15:00 23:00 07:00 Intake Total 230 ml 3936 ml Output Total 0 ml 0 ml 2200 ml Balance 0 ml 230 ml 1736 ml Exam General: Patient was observed to be in distress, also showing shallow breathing. She was subsequently intubated. HEENT: Dark matter coming from the oral cavity with dark matter draining from the NG tube. Neck: Supple with full range of motion. No rigidity or meningismus Lungs: Coarse breath sounds bilateral Heart: Sinus tachycardia Abdomen: Soft, mild distention noted of the abdomen, fecal matter observed at the left lower quadrant catheter. Extremities: Normal to inspection, no edema no cyanosis Neurologic: Patient was originally answering questions appropriately and she was alert however she was observed to decompensate and she subsequently needed to be intubated. Results Result Diagram: 09/21/16 0541 09/21/16 0825 Results 24 hrs Laboratory Tests Test 09/20/16 23:42 09/21/16 00:47 09/21/16 00:50 09/21/16 02:30 White Blood Count 6.4 # Red Blood Count 4.39 Hemoglobin 11.7 L Hematocrit 39.2 Mean Corpuscular Volume 89.3 Mean Corpuscular Hemoglobin 26.7 L Mean Corpuscular Hemoglobin Concent 29.8 L Red Cell Distribution Width 15.4 H Platelet Count 257 # Mean Platelet Volume 10.3 Neutrophils % 84.0 H Lymphocytes % 7.8 L Monocytes % 5.2 Eosinophils % 0.2 Basophils % 0.5 Nucleated Red Blood Cells % 0.5 H Neutrophils # 5.4 Lymphocytes # 0.5 L Monocytes # 0.3 Eosinophils # 0.0 Basophils # 0.0 Nucleated Red Blood Cells # 0.0 Sodium Level 143 Potassium Level 6.9 #*H 6.9 *H Chloride Level 107 Carbon Dioxide Level 12 #L Anion Gap 31 #H Blood Urea Nitrogen 14 Creatinine 1.13 H Glucose Level 84 Lactic Acid Level 15.4 *H Calcium Level 9.0 Total Bilirubin 0.2 Direct Bilirubin 0.00 Indirect Bilirubin 0.2 Aspartate Amino Transf (AST/SGOT) 76 H Alanine Aminotransferase (ALT/SGPT) 23 Alkaline Phosphatase 51 Total Protein 5.4 L Albumin 2.5 L Globulin 2.90 Albumin/Globulin Ratio 0.86 Blood Gas Specimen Source Blood arterial Blood arterial Arterial Blood Date Drawn 09/21/2016 12:40:32 AM 09/21/2016 2:15:00 AM Arterial Blood pH (Temp corrected) 6.879 *L 7.204 *L Arterial Blood pCO2 (Temp correct) 32.0 L 29.3 L Arterial Blood pO2 (Temp corrected) 116.2 H 259.7 H Arterial Blood HCO3 5.8 *L 11.3 L Arterial Blood Base Excess -26.6 L -15.3 L Arterial Blood Oxygen Saturation 93.6 L 98.3 Cain Test ACCEPTAB N/A Arterial Blood Gas Puncture Site Right Radial Right Brachial Arterial Blood Carboxyhemoglobin 0 0.3 Arterial Blood Methemoglobin 0.3 0.5 Blood Gas A-a O2 Differential 103.4 H 424.0 H Oxyhemoglobin Percent 93.3 97.5 Total Hemoglobin 12.0 9.2 L Blood Gas Temperature 37.0 37.0 Blood Gas Modality NASAL CANNULA VENT - AC FiO2 36.0 100.0 Blood Gas Critical Value Read Back TMEHROTRA Giovana PONCE MD Blood Gas Notified Whom DARYL BRITO Blood Gas Notified Time 09/21/2016 12:56:45 AM 09/21/2016 2:27:10 AM Blood Gas Respiration Rate 24.0 Blood Gas Actual Respiration Rate 24 Blood Gas Tidal Volume 500.0 Blood Gas Low PEEP Setting 5.0 Test 09/21/16 03:30 09/21/16 03:32 09/21/16 05:00 09/21/16 05:41 Creatine Kinase 467 H Creatine Kinase Index 2.5 Creatinine Kinase MB (Mass) 11.80 H Troponin I 0.125 *H Amylase Level 324 H Lipase 21 L Sodium Level 149 H 151 H Potassium Level 4.7 # 4.8 Chloride Level 110 113 H Carbon Dioxide Level 20 L 18 L Anion Gap 24 #H 25 H Blood Urea Nitrogen 15 16 Creatinine 0.87 0.86 Glucose Level 110 99 Lactic Acid Level 14.8 *H 12.5 *H Calcium Level 7.2 L 7.1 L Total Bilirubin 0.4 0.1 L Direct Bilirubin 0.30 #H 0.10 # Indirect Bilirubin 0.1 0.0 Aspartate Amino Transf (AST/SGOT) 302 H 404 H Alanine Aminotransferase (ALT/SGPT) 56 70 H Alkaline Phosphatase 32 L 31 L Total Protein 3.1 #L 3.3 L Albumin 1.3 #L 1.4 L Globulin 1.80 1.90 Albumin/Globulin Ratio 0.72 0.73 Blood Gas Specimen Source Blood arterial Arterial Blood Date Drawn 09/21/2016 5:50:01 AM Arterial Blood pH (Temp corrected) 7.283 *L Arterial Blood pCO2 (Temp correct) 36.1 Arterial Blood pO2 (Temp corrected) 86.0 Arterial Blood HCO3 16.7 L Arterial Blood Base Excess -9.2 L Arterial Blood Oxygen Saturation 94.4 L Cain Test ACCEPTAB Arterial Blood Gas Puncture Site Right Brachial Arterial Blood Carboxyhemoglobin 0.3 Arterial Blood Methemoglobin 0.2 Blood Gas A-a O2 Differential 302.1 H Oxyhemoglobin Percent 93.9 Total Hemoglobin 9.7 L Blood Gas Temperature 37.0 Blood Gas Respiration Rate 24.0 Blood Gas Actual Respiration Rate 24 Blood Gas Modality VENT - AC FiO2 60.0 Blood Gas Tidal Volume 500.0 Blood Gas Low PEEP Setting 5.0 Blood Gas Critical Value Read Back MUSA Blood Gas Notified Whom CHRISTINE Blood Gas Notified Time 09/21/2016 5:56:55 AM White Blood Count 4.9 # Red Blood Count 3.38 #L Hemoglobin 8.8 #L Hematocrit 28.5 #L Mean Corpuscular Volume 84.3 Mean Corpuscular Hemoglobin 26.0 L Mean Corpuscular Hemoglobin Concent 30.9 L Red Cell Distribution Width 15.4 H Platelet Count 154 # Mean Platelet Volume 10.9 H Neutrophils % Lymphocytes % Monocytes % Eosinophils % Neutrophils # Lymphocytes # Monocytes # Eosinophils # Magnesium Level 2.7 #H Test 09/21/16 08:25 Prothrombin Time 42.3 #H Prothrombin Time Ratio 3.3 INR International Normalized Ratio 4.34 Activated Partial Thromboplast Time 47.9 H Sodium Level 150 H Potassium Level 4.9 Chloride Level 113 H Carbon Dioxide Level 20 L Anion Gap 22 H Blood Urea Nitrogen 16 Creatinine 0.92 Glucose Level 97 Lactic Acid Level 11.6 *H Calcium Level 6.9 L Total Bilirubin 0.0 L Direct Bilirubin 0.00 Indirect Bilirubin 0.0 Aspartate Amino Transf (AST/SGOT) 496 H Alanine Aminotransferase (ALT/SGPT) 91 H Alkaline Phosphatase 35 L Total Protein 3.9 L Albumin 1.7 L Globulin 2.20 Albumin/Globulin Ratio 0.77 Medications Medications Current Medications Morphine Sulfate (morphine) 2 mg Q4H PRN IV PAIN Last administered on 22:55; Admin Dose 2 MG; Start 09/15/16 at 23:30 Ondansetron HCl (Zofran Inj) 4 mg Q6H PRN IV NAUSEA AND/OR VOMITING Last administered on 09/20/16 21:11; Admin Dose 4 MG; Start 09/16/16 at 00:30 Acetaminophen 650 mg 650 mg Q6H PRN PO PAIN LEVEL 1-3 OR FEVER Last administered on 09/17/16 10:06; Admin Dose 650 MG; Start 09/16/16 at 00:30 Ferric Sodium Gluconate Complex 125 mg/Sodium Chloride 110 ml @ 110 mls/hr Q24H IVPB Last administered on 09/20/16 14:29; Admin Dose 110 MLS/HR; Start at 14:00; Stop 09/22/16 at 14:59 Acetaminophen (Ofirmev 1000mg/ 100ml Iv) 100 ml @ 400 mls/hr Q8H IVPB Last administered on 09/21/16 04:02; Admin Dose 400 MLS/HR; Start 09/20/16 at 12:00 ; Stop 09/22/16 at 04:14 Polyethylene Glycol (Miralax) 17 gm DAILY PO Last administered on 09/20/16 11: 44; Admin Dose 17 GM; Start 09/20/16 at 11:00 Docusate Sodium 100 mg 100 mg BID PO Last administered on 09/20/16 11:44; Admin Dose 100 MG; Start 09/20/16 at 11:00 Meropenem/Sodium Chloride 50 ml @ 200 mls/hr Q8 IVPB Last administered on 09/21 05:52; Admin Dose 200 MLS/HR; Start 09/20/16 at 22:00 Fluconazole/ Sodium Chloride 50 ml @ 50 mls/hr Q24H IVPB Last administered on 16:34; Admin Dose 50 MLS/HR; Start 09/20/16 at 16:30 Vancomycin HCl (Vancocin) 100 ml @ 100 mls/hr Q12H IVPB Last administered on 06:15; Admin Dose 100 MLS/HR; Start 09/21/16 at 06:00 Pantoprazole 40 mg 40 mg BID@06,18 IV Last administered on 09/21/16 00:02; Admin Dose 40 MG; Start 09/21/16 at 00:00 Sodium Bicarbonate 150 meq/Sodium Chloride 1,000 ml @ 125 mls/hr Q8H IV Last administered on 09/21/16 01:46; Admin Dose 125 MLS/HR; Start 09/21/16 at 01:00 Norepinephrine 16 mg/Dextrose 500 ml @ 1.87 mls/hr TITRATE IV ; Start 09/21/16 at 09:00 Pantoprazole 80 mg/Sodium Chloride 100 ml @ 10 mls/hr Q10H IV Last administered on 09/21/16 04:09; Admin Dose 10 MLS/HR; Start 09/21/16 at 02:15 Propofol (Diprivan) 100 ml @ 1.671 mls/ hr Q12H IV Last administered on 06:23; Admin Dose 1.671 MLS/HR; Start 09/21/16 at 02:30 ANGELLA AMADO MD Sep 21, 2016 10:58
[2016-09-21 11:21] LABS: LYMPHOCYTES # 0.5 10^3/ul (0.8-2.9); MONOCYTE # 0.3 10^3/ul (0.3-0.9); NEUTROPHIL # 2.7 10^3/ul (1.6-7.5)
[2016-09-21 11:22] LABS: BURR CELLS MANY; POIKILOCYTOSIS 2+; TOXIC GRANULATION 1+
--- NOTE | 2016-09-21 12:03 | CONS ---
Date/Time of Note Date/Time of Note DATE: 09/21/16 TIME: 11:57 Assessment/Plan Assessment/Plan Chief Complaint/Hosp Course Assessment 1. Severe sepsis and hypoxemic respiratory failure. Differential includes healthcare associated pneumonia versus aspiration pneumonia. Evidence of pleural effusions also. 2. Possible infected COMMERCIAL CONSTRUCTION SUPERINTENDENT shunt. Status post externalization 3. Abdominal abscesses possible peritonitis. Exploratory laparotomy today 4. Severe sepsis with metabolic acidosis secondary to above Plan 1. Continue mechanical ventilation, will require thoracentesis when more stable pleural fluid studies. 2.'s neurosurgery and general surgery recommendations. 3. Continue broad-spectrum antibiotics 4. Trend lactic acid, aggressive fluid resuscitation. 5. DVT and GI prophylaxis Problems: Consultation Date/Type/Reason Admit Date/Time Sep 15, 2016 at 21:35 Date of Consultation: Sep 21, 2016 Reason for Consultation Mechanical ventilation Hx of Present Illness 70-year-old lady with history of COMMERCIAL CONSTRUCTION SUPERINTENDENT shunt presents with abdominal pain fever found to have findings suggestive of sigmoid colon abscess, she is underwent IR drainage on 09/09/2016 with 20 cm of pus removed at [facility]. Discharged home and then re-presented here with worsening abdominal discomfort here the drain was changed to a larger [place] drain however this continues to be concern for ongoing abscess and a fluid collection. In addition there is concern for infected COMMERCIAL CONSTRUCTION SUPERINTENDENT shunt. Patient is to be taken to the OR today for externalization of COMMERCIAL CONSTRUCTION SUPERINTENDENT shunt and exploratory laparotomy possible underlying abscess. 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 No JVD or lymphadenopathy. CARDIAC EXAM: S1, S2. No added sounds or murmurs. CHEST: clear bilaterally, No added sounds, rales or wheezes ABDOMEN: Diminished air entry bilaterally no rales wheezes EXTREMITIES: No cyanosis, clubbing or edema. NEUROLOGIC: Generalized weakness. No focal deficits. Results Result Diagram: 09/21/16 0541 09/21/16 0825 Results 24 hrs Laboratory Tests Test 09/20/16 23:42 09/21/16 00:47 09/21/16 00:50 09/21/16 02:30 White Blood Count 6.4 # Red Blood Count 4.39 Hemoglobin 11.7 L Hematocrit 39.2 Mean Corpuscular Volume 89.3 Mean Corpuscular Hemoglobin 26.7 L Mean Corpuscular Hemoglobin Concent 29.8 L Red Cell Distribution Width 15.4 H Platelet Count 257 # Mean Platelet Volume 10.3 Neutrophils % 84.0 H Lymphocytes % 7.8 L Monocytes % 5.2 Eosinophils % 0.2 Basophils % 0.5 Nucleated Red Blood Cells % 0.5 H Neutrophils # 5.4 Lymphocytes # 0.5 L Monocytes # 0.3 Eosinophils # 0.0 Basophils # 0.0 Nucleated Red Blood Cells # 0.0 Sodium Level 143 Potassium Level 6.9 #*H 6.9 *H Chloride Level 107 Carbon Dioxide Level 12 #L Anion Gap 31 #H Blood Urea Nitrogen 14 Creatinine 1.13 H Glucose Level 84 Lactic Acid Level 15.4 *H Calcium Level 9.0 Total Bilirubin 0.2 Direct Bilirubin 0.00 Indirect Bilirubin 0.2 Aspartate Amino Transf (AST/SGOT) 76 H Alanine Aminotransferase (ALT/SGPT) 23 Alkaline Phosphatase 51 Total Protein 5.4 L Albumin 2.5 L Globulin 2.90 Albumin/Globulin Ratio 0.86 Blood Gas Specimen Source Blood arterial Blood arterial Arterial Blood Date Drawn 09/21/2016 12:40:32 AM 09/21/2016 2:15:00 AM Arterial Blood pH (Temp corrected) 6.879 *L 7.204 *L Arterial Blood pCO2 (Temp correct) 32.0 L 29.3 L Arterial Blood pO2 (Temp corrected) 116.2 H 259.7 H Arterial Blood HCO3 5.8 *L 11.3 L Arterial Blood Base Excess -26.6 L -15.3 L Arterial Blood Oxygen Saturation 93.6 L 98.3 Cain Test ACCEPTAB N/A Arterial Blood Gas Puncture Site Right Radial Right Brachial Arterial Blood Carboxyhemoglobin 0 0.3 Arterial Blood Methemoglobin 0.3 0.5 Blood Gas A-a O2 Differential 103.4 H 424.0 H Oxyhemoglobin Percent 93.3 97.5 Total Hemoglobin 12.0 9.2 L Blood Gas Temperature 37.0 37.0 Blood Gas Modality NASAL CANNULA VENT - AC FiO2 36.0 100.0 Blood Gas Critical Value Read Back TMEGiovana YOUNG RN, MD Blood Gas Notified Whom DARYL BRITO Blood Gas Notified Time 09/21/2016 12:56:45 AM 09/21/2016 2:27:10 AM Blood Gas Respiration Rate 24.0 Blood Gas Actual Respiration Rate 24 Blood Gas Tidal Volume 500.0 Blood Gas Low PEEP Setting 5.0 Test 09/21/16 03:30 09/21/16 03:32 09/21/16 05:00 09/21/16 05:41 Creatine Kinase 467 H Creatine Kinase Index 2.5 Creatinine Kinase MB (Mass) 11.80 H Troponin I 0.125 *H Amylase Level 324 H Lipase 21 L Sodium Level 149 H 151 H Potassium Level 4.7 # 4.8 Chloride Level 110 113 H Carbon Dioxide Level 20 L 18 L Anion Gap 24 #H 25 H Blood Urea Nitrogen 15 16 Creatinine 0.87 0.86 Glucose Level 110 99 Lactic Acid Level 14.8 *H 12.5 *H Calcium Level 7.2 L 7.1 L Total Bilirubin 0.4 0.1 L Direct Bilirubin 0.30 #H 0.10 # Indirect Bilirubin 0.1 0.0 Aspartate Amino Transf (AST/SGOT) 302 H 404 H Alanine Aminotransferase (ALT/SGPT) 56 70 H Alkaline Phosphatase 32 L 31 L Total Protein 3.1 #L 3.3 L Albumin 1.3 #L 1.4 L Globulin 1.80 1.90 Albumin/Globulin Ratio 0.72 0.73 Blood Gas Specimen Source Blood arterial Arterial Blood Date Drawn 09/21/2016 5:50:01 AM Arterial Blood pH (Temp corrected) 7.283 *L Arterial Blood pCO2 (Temp correct) 36.1 Arterial Blood pO2 (Temp corrected) 86.0 Arterial Blood HCO3 16.7 L Arterial Blood Base Excess -9.2 L Arterial Blood Oxygen Saturation 94.4 L Cain Test ACCEPTAB Arterial Blood Gas Puncture Site Right Brachial Arterial Blood Carboxyhemoglobin 0.3 Arterial Blood Methemoglobin 0.2 Blood Gas A-a O2 Differential 302.1 H Oxyhemoglobin Percent 93.9 Total Hemoglobin 9.7 L Blood Gas Temperature 37.0 Blood Gas Respiration Rate 24.0 Blood Gas Actual Respiration Rate 24 Blood Gas Modality VENT - AC FiO2 60.0 Blood Gas Tidal Volume 500.0 Blood Gas Low PEEP Setting 5.0 Blood Gas Critical Value Read Back MUSA Blood Gas Notified Whom CHRISTINE Blood Gas Notified Time 09/21/2016 5:56:55 AM White Blood Count 4.9 # Red Blood Count 3.38 #L Hemoglobin 8.8 #L Hematocrit 28.5 #L Mean Corpuscular Volume 84.3 Mean Corpuscular Hemoglobin 26.0 L Mean Corpuscular Hemoglobin Concent 30.9 L Red Cell Distribution Width 15.4 H Platelet Count 154 # Mean Platelet Volume 10.9 H Neutrophils % 55.0 Band Neutrophils % 24.0 H Lymphocytes % 10.0 L Reactive Lymphocytes % 1.0 Monocytes % 7.0 Eosinophils % Metamyelocytes % 2.0 H Myelocytes % 1.0 H Neutrophils # 2.7 Lymphocytes # 0.5 L Monocytes # 0.3 Eosinophils # Metamyelocytes # 0.1 Myelocytes # 0.0 Toxic Granulation 1+ Dohle Bodies FEW Poikilocytosis 2+ Magnesium Level 2.7 #H Test 09/21/16 08:25 Prothrombin Time 42.3 #H Prothrombin Time Ratio 3.3 INR International Normalized Ratio 4.34 Activated Partial Thromboplast Time 47.9 H Sodium Level 150 H Potassium Level 4.9 Chloride Level 113 H Carbon Dioxide Level 20 L Anion Gap 22 H Blood Urea Nitrogen 16 Creatinine 0.92 Glucose Level 97 Lactic Acid Level 11.6 *H Calcium Level 6.9 L Total Bilirubin 0.0 L Direct Bilirubin 0.00 Indirect Bilirubin 0.0 Aspartate Amino Transf (AST/SGOT) 496 H Alanine Aminotransferase (ALT/SGPT) 91 H Alkaline Phosphatase 35 L Total Protein 3.9 L Albumin 1.7 L Globulin 2.20 Albumin/Globulin Ratio 0.77 Medications Medications Current Medications Morphine Sulfate (morphine) 2 mg Q4H PRN IV PAIN Last administered on 22:55; Admin Dose 2 MG; Start 09/15/16 at 23:30 Ondansetron HCl (Zofran Inj) 4 mg Q6H PRN IV NAUSEA AND/OR VOMITING Last administered on 09/20/16 21:11; Admin Dose 4 MG; Start 09/16/16 at 00:30 Acetaminophen 650 mg 650 mg Q6H PRN PO PAIN LEVEL 1-3 OR FEVER Last administered on 09/17/16 10:06; Admin Dose 650 MG; Start 09/16/16 at 00:30 Ferric Sodium Gluconate Complex 125 mg/Sodium Chloride 110 ml @ 110 mls/hr Q24H IVPB Last administered on 09/20/16 14:29; Admin Dose 110 MLS/HR; Start at 14:00; Stop 09/22/16 at 14:59 Acetaminophen (Ofirmev 1000mg/ 100ml Iv) 100 ml @ 400 mls/hr Q8H IVPB Last administered on 09/21/16 04:02; Admin Dose 400 MLS/HR; Start 09/20/16 at 12:00 ; Stop 09/22/16 at 04:14 Polyethylene Glycol (Miralax) 17 gm DAILY PO Last administered on 09/20/16 11: 44; Admin Dose 17 GM; Start 09/20/16 at 11:00 Docusate Sodium 100 mg 100 mg BID PO Last administered on 09/20/16 11:44; Admin Dose 100 MG; Start 09/20/16 at 11:00 Meropenem/Sodium Chloride 50 ml @ 200 mls/hr Q8 IVPB Last administered on 09/21 05:52; Admin Dose 200 MLS/HR; Start 09/20/16 at 22:00 Fluconazole/ Sodium Chloride 50 ml @ 50 mls/hr Q24H IVPB Last administered on 16:34; Admin Dose 50 MLS/HR; Start 09/20/16 at 16:30 Vancomycin HCl (Vancocin) 100 ml @ 100 mls/hr Q12H IVPB Last administered on 06:15; Admin Dose 100 MLS/HR; Start 09/21/16 at 06:00 Pantoprazole 40 mg 40 mg BID@06,18 IV Last administered on 09/21/16 00:02; Admin Dose 40 MG; Start 09/21/16 at 00:00 Sodium Bicarbonate 150 meq/Sodium Chloride 1,000 ml @ 125 mls/hr Q8H IV Last administered on 09/21/16 01:46; Admin Dose 125 MLS/HR; Start 09/21/16 at 01:00 Norepinephrine 16 mg/Dextrose 500 ml @ 1.87 mls/hr TITRATE IV ; Start 09/21/16 at 09:00 Pantoprazole 80 mg/Sodium Chloride 100 ml @ 10 mls/hr Q10H IV Last administered on 09/21/16 04:09; Admin Dose 10 MLS/HR; Start 09/21/16 at 02:15 Propofol (Diprivan) 100 ml @ 1.671 mls/ hr Q12H IV Last administered on 06:23; Admin Dose 1.671 MLS/HR; Start 09/21/16 at 02:30 DAMIEN GUADARRAMA MD, [facility] Sep 21, 2016 12:02
[2016-09-21 12:27] LABS: AADO2 Arterial 546.1 mmHg (7.0-24.0); Arterial Base Excess -12.2 mmol/L (-3.0-3); Arterial COHb 0.1 % (0.0-3.0); Arterial Fraction of Oxyhgb 96.9 % (93.0-99.0); Arterial MetHb 0.4 % (0.0-1.5); Arterial Total Hemglobin 7.9 g/dl (12.0-18.0); MODE VENT - AC
[2016-09-21] MEDS ORDERED: ALBUMIN HUMAN 5% 250 ML ONE (12:28)
--- NOTE | 2016-09-21 12:43 | CONS ---
Date/Time of Note Date/Time of Note DATE: 09/21/16 TIME: 12:36 Assessment/Plan Assessment/Plan Chief Complaint/Hosp Course NSTEMI: Trop mildly elevated likely type II in the setting of septic shock. Echo from 09/18 showed normal EF and no significant valvular disease. Trend trops for now Septic shock: from intraabdominal abscess and possible infected V[employer]HE [employer] shunt. 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 The pt apparently deteriorated overnight and had septic shock. She was intubated and emergently taken to the OR this am. Cardiology was consulted due to elevated troponins and pre-op evaluation, but due to the emergent nature of her condition, she was emergently taken to the OR. She is still in the OR. 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 Results Result Diagram: 09/21/16 0541 09/21/16 0825 Results 24 hrs Laboratory Tests Test 09/20/16 23:42 09/21/16 00:47 09/21/16 00:50 09/21/16 02:30 White Blood Count 6.4 # Red Blood Count 4.39 Hemoglobin 11.7 L Hematocrit 39.2 Mean Corpuscular Volume 89.3 Mean Corpuscular Hemoglobin 26.7 L Mean Corpuscular Hemoglobin Concent 29.8 L Red Cell Distribution Width 15.4 H Platelet Count 257 # Mean Platelet Volume 10.3 Neutrophils % 84.0 H Lymphocytes % 7.8 L Monocytes % 5.2 Eosinophils % 0.2 Basophils % 0.5 Nucleated Red Blood Cells % 0.5 H Neutrophils # 5.4 Lymphocytes # 0.5 L Monocytes # 0.3 Eosinophils # 0.0 Basophils # 0.0 Nucleated Red Blood Cells # 0.0 Sodium Level 143 Potassium Level 6.9 #*H 6.9 *H Chloride Level 107 Carbon Dioxide Level 12 #L Anion Gap 31 #H Blood Urea Nitrogen 14 Creatinine 1.13 H Glucose Level 84 Lactic Acid Level 15.4 *H Calcium Level 9.0 Total Bilirubin 0.2 Direct Bilirubin 0.00 Indirect Bilirubin 0.2 Aspartate Amino Transf (AST/SGOT) 76 H Alanine Aminotransferase (ALT/SGPT) 23 Alkaline Phosphatase 51 Total Protein 5.4 L Albumin 2.5 L Globulin 2.90 Albumin/Globulin Ratio 0.86 Blood Gas Specimen Source Blood arterial Blood arterial Arterial Blood Date Drawn 09/21/2016 12:40:32 AM 09/21/2016 2:15:00 AM Arterial Blood pH (Temp corrected) 6.879 *L 7.204 *L Arterial Blood pCO2 (Temp correct) 32.0 L 29.3 L Arterial Blood pO2 (Temp corrected) 116.2 H 259.7 H Arterial Blood HCO3 5.8 *L 11.3 L Arterial Blood Base Excess -26.6 L -15.3 L Arterial Blood Oxygen Saturation 93.6 L 98.3 Cain Test ACCEPTAB N/A Arterial Blood Gas Puncture Site Right Radial Right Brachial Arterial Blood Carboxyhemoglobin 0 0.3 Arterial Blood Methemoglobin 0.3 0.5 Blood Gas A-a O2 Differential 103.4 H 424.0 H Oxyhemoglobin Percent 93.3 97.5 Total Hemoglobin 12.0 9.2 L Blood Gas Temperature 37.0 37.0 Blood Gas Modality NASAL CANNULA VENT - AC FiO2 36.0 100.0 Blood Gas Critical Value Read Back TMEHROTRA RN VERO, M MD Blood Gas Notified Whom DARYL BRITO Blood Gas Notified Time 09/21/2016 12:56:45 AM 09/21/2016 2:27:10 AM Blood Gas Respiration Rate 24.0 Blood Gas Actual Respiration Rate 24 Blood Gas Tidal Volume 500.0 Blood Gas Low PEEP Setting 5.0 Test 09/21/16 03:30 09/21/16 03:32 09/21/16 05:00 09/21/16 05:41 Creatine Kinase 467 H Creatine Kinase Index 2.5 Creatinine Kinase MB (Mass) 11.80 H Troponin I 0.125 *H Amylase Level 324 H Lipase 21 L Sodium Level 149 H 151 H Potassium Level 4.7 # 4.8 Chloride Level 110 113 H Carbon Dioxide Level 20 L 18 L Anion Gap 24 #H 25 H Blood Urea Nitrogen 15 16 Creatinine 0.87 0.86 Glucose Level 110 99 Lactic Acid Level 14.8 *H 12.5 *H Calcium Level 7.2 L 7.1 L Total Bilirubin 0.4 0.1 L Direct Bilirubin 0.30 #H 0.10 # Indirect Bilirubin 0.1 0.0 Aspartate Amino Transf (AST/SGOT) 302 H 404 H Alanine Aminotransferase (ALT/SGPT) 56 70 H Alkaline Phosphatase 32 L 31 L Total Protein 3.1 #L 3.3 L Albumin 1.3 #L 1.4 L Globulin 1.80 1.90 Albumin/Globulin Ratio 0.72 0.73 Blood Gas Specimen Source Blood arterial Arterial Blood Date Drawn 09/21/2016 5:50:01 AM Arterial Blood pH (Temp corrected) 7.283 *L Arterial Blood pCO2 (Temp correct) 36.1 Arterial Blood pO2 (Temp corrected) 86.0 Arterial Blood HCO3 16.7 L Arterial Blood Base Excess -9.2 L Arterial Blood Oxygen Saturation 94.4 L Cain Test ACCEPTAB Arterial Blood Gas Puncture Site Right Brachial Arterial Blood Carboxyhemoglobin 0.3 Arterial Blood Methemoglobin 0.2 Blood Gas A-a O2 Differential 302.1 H Oxyhemoglobin Percent 93.9 Total Hemoglobin 9.7 L Blood Gas Temperature 37.0 Blood Gas Respiration Rate 24.0 Blood Gas Actual Respiration Rate 24 Blood Gas Modality VENT - AC FiO2 60.0 Blood Gas Tidal Volume 500.0 Blood Gas Low PEEP Setting 5.0 Blood Gas Critical Value Read Back MUSA Blood Gas Notified Whom CHRISTINE Blood Gas Notified Time 09/21/2016 5:56:55 AM White Blood Count 4.9 # Red Blood Count 3.38 #L Hemoglobin 8.8 #L Hematocrit 28.5 #L Mean Corpuscular Volume 84.3 Mean Corpuscular Hemoglobin 26.0 L Mean Corpuscular Hemoglobin Concent 30.9 L Red Cell Distribution Width 15.4 H Platelet Count 154 # Mean Platelet Volume 10.9 H Neutrophils % 55.0 Band Neutrophils % 24.0 H Lymphocytes % 10.0 L Reactive Lymphocytes % 1.0 Monocytes % 7.0 Eosinophils % Metamyelocytes % 2.0 H Myelocytes % 1.0 H Neutrophils # 2.7 Lymphocytes # 0.5 L Monocytes # 0.3 Eosinophils # Metamyelocytes # 0.1 Myelocytes # 0.0 Toxic Granulation 1+ Dohle Bodies FEW Poikilocytosis 2+ Magnesium Level 2.7 #H Test 09/21/16 08:25 09/21/16 12:13 Prothrombin Time 42.3 #H Prothrombin Time Ratio 3.3 INR International Normalized Ratio 4.34 Activated Partial Thromboplast Time 47.9 H Sodium Level 150 H Potassium Level 4.9 Chloride Level 113 H Carbon Dioxide Level 20 L Anion Gap 22 H Blood Urea Nitrogen 16 Creatinine 0.92 Glucose Level 97 Lactic Acid Level 11.6 *H Calcium Level 6.9 L Total Bilirubin 0.0 L Direct Bilirubin 0.00 Indirect Bilirubin 0.0 Aspartate Amino Transf (AST/SGOT) 496 H Alanine Aminotransferase (ALT/SGPT) 91 H Alkaline Phosphatase 35 L Total Protein 3.9 L Albumin 1.7 L Globulin 2.20 Albumin/Globulin Ratio 0.77 Blood Gas Specimen Source Blood arterial Arterial Blood Date Drawn 09/21/2016 12:10:20 PM Arterial Blood pH (Temp corrected) 7.220 *L Arterial Blood pCO2 (Temp correct) 36.5 Arterial Blood pO2 (Temp corrected) 135.4 H Arterial Blood HCO3 15.0 L Arterial Blood Base Excess -12.2 L Arterial Blood Oxygen Saturation 97.4 Cain Test N/A Arterial Blood Gas Puncture Site A-Line Arterial Blood Carboxyhemoglobin 0.1 Arterial Blood Methemoglobin 0.4 Blood Gas A-a O2 Differential 546.1 H Oxyhemoglobin Percent 96.9 Total Hemoglobin 7.9 L Blood Gas Temperature 35.0 Blood Gas Respiration Rate 12.0 Blood Gas Modality VENT - AC FiO2 100.0 Blood Gas Tidal Volume 500.0 Blood Gas Critical Value Read Back Jaziel ACOSTA MD Blood Gas Notified Whom Blood Gas Notified Time 09/21/2016 12:25:12 PM Medications Medications Current Medications Morphine Sulfate (morphine) 2 mg Q4H PRN IV PAIN Last administered on 22:55; Admin Dose 2 MG; Start 09/15/16 at 23:30 Ondansetron HCl (Zofran Inj) 4 mg Q6H PRN IV NAUSEA AND/OR VOMITING Last administered on 09/20/16 21:11; Admin Dose 4 MG; Start 09/16/16 at 00:30 Acetaminophen 650 mg 650 mg Q6H PRN PO PAIN LEVEL 1-3 OR FEVER Last administered on 09/17/16 10:06; Admin Dose 650 MG; Start 09/16/16 at 00:30 Ferric Sodium Gluconate Complex 125 mg/Sodium Chloride 110 ml @ 110 mls/hr Q24H IVPB Last administered on 09/20/16 14:29; Admin Dose 110 MLS/HR; Start at 14:00; Stop 09/22/16 at 14:59 Acetaminophen (Ofirmev 1000mg/ 100ml Iv) 100 ml @ 400 mls/hr Q8H IVPB Last administered on 09/21/16 04:02; Admin Dose 400 MLS/HR; Start 09/20/16 at 12:00 ; Stop 09/22/16 at 04:14 Polyethylene Glycol (Miralax) 17 gm DAILY PO Last administered on 09/20/16 11: 44; Admin Dose 17 GM; Start 09/20/16 at 11:00 Docusate Sodium 100 mg 100 mg BID PO Last administered on 09/20/16 11:44; Admin Dose 100 MG; Start 09/20/16 at 11:00 Meropenem/Sodium Chloride 50 ml @ 200 mls/hr Q8 IVPB Last administered on 09/21 05:52; Admin Dose 200 MLS/HR; Start 09/20/16 at 22:00 Fluconazole/ Sodium Chloride 50 ml @ 50 mls/hr Q24H IVPB Last administered on 16:34; Admin Dose 50 MLS/HR; Start 09/20/16 at 16:30 Vancomycin HCl (Vancocin) 100 ml @ 100 mls/hr Q12H IVPB Last administered on 06:15; Admin Dose 100 MLS/HR; Start 09/21/16 at 06:00 Pantoprazole 40 mg 40 mg BID@06,18 IV Last administered on 09/21/16 00:02; Admin Dose 40 MG; Start 09/21/16 at 00:00 Sodium Bicarbonate 150 meq/Sodium Chloride 1,000 ml @ 125 mls/hr Q8H IV Last administered on 09/21/16 01:46; Admin Dose 125 MLS/HR; Start 09/21/16 at 01:00 Norepinephrine 16 mg/Dextrose 500 ml @ 1.87 mls/hr TITRATE IV ; Start 09/21/16 at 09:00 Pantoprazole 80 mg/Sodium Chloride 100 ml @ 10 mls/hr Q10H IV Last administered on 09/21/16 04:09; Admin Dose 10 MLS/HR; Start 09/21/16 at 02:15 Propofol (Diprivan) 100 ml @ 1.671 mls/ hr Q12H IV Last administered on 06:23; Admin Dose 1.671 MLS/HR; Start 09/21/16 at 02:30 Miscellaneous Information (*Rx Drug Level Order Reminder*) VANCOMYCIN TROUGH AT 0500 ONCE ONCE XX ; Start 09/22/16 at 05:00; Stop 09/22/16 at 05:01 GUSTAVO RAMON Sep 21, 2016 12:43
[2016-09-21] MEDS: NORepinephrine 8MG/250 ML (PMX 250 ML IV SCH ×3 (13:00→23:16)
[2016-09-21] MEDS: SOD FERRIC GLUC COMPLX 125 MG in SOD CHLORIDE 0.9% 100 ML IVPB SCH (14:00)
[2016-09-21] MEDS ORDERED: FENTAnyl 50 MCG/ML VIAL ONE (14:44)
[2016-09-21] MEDS ORDERED: HYDROCODONE/APAP (5/325) TAB PO PRN (15:00)
[2016-09-21] MEDS ORDERED: DOCUSATE SODIUM 100 MG CAP PO PRN (15:00)
[2016-09-21 15:37] LABS: ADD SCAN DIFF NO
[2016-09-21 15:54] LABS: PT RATIO 4.8
--- NOTE | 2016-09-21 15:57 | OPR ---
Date/Time of Note Date/Time of Note DATE: 09/21/16 TIME: 15:57 Operative Report Procedure Date: Sep 21, 2016 Surgeon: NIRAJ MINER MD Anesthesia: general Estimated Blood Loss: minimal Complications: None Pt Condition Post Procedure: critical Operative\Procedure Findings [facility] INPATIENT OPERATIVE NOTE PLACE OF SERVICE: [facility] DATE OF SURGERY: 09/21/2016 PREOPERATIVE DIAGNOSIS: 1. Perforated sigmoid colon 2. Status post ventriculoperitoneal shunt placement. 3. S/p IR drainage 09/09/16 with removal of 20 cc pus and placement of a 10 Fr. pigtail catheter at [facility]. 4. Readmission to [facility] 09/15/16 with upsizing of drain to 12 Fr pigtail on (communication with colon demonstrated; no obvious free communication to rest of peritoneal space). Septic shock with multiorgan failure 09/21/2016 requiring ICU admission with intubation and pressors. POSTOPERATIVE DIAGNOSIS: 1. Perforated sigmoid colon 2. Status post ventriculoperitoneal shunt placement. 3. Status post prior hysterectomy and bilateral salpingo-oophorectomy through Pfannenstiel incision 4. S/p IR drainage 09/09/16 with removal of 20 cc pus and placement of a 10 Fr. pigtail catheter at [facility]. 5. Readmission to [facility] 09/15/16 with upsizing of drain to 12 Fr pigtail on (communication with colon demonstrated; no obvious free communication to rest of peritoneal space). Septic shock with multiorgan failure 09/21/2016 requiring ICU admission with intubation and pressors. OPERATION: 1. Sigmoid colectomy with performance of end colostomy (Reid's procedure) 2. Takedown of splenic flexure of the colon 3. Lysis of adhesions (60 minutes) 4. Abdominal lavage 5. Modifier 22 SURGEON: Alexsander Duarte M.D. LIEUTENANT GENERAL: MICHELE Khan ANESTHESIA: General endotracheal tube anesthesia ANESTHESIOLOGIST: Jaziel Fu M.D. BRIEF SUMMARY: An otherwise uncomplicated but difficult sigmoid colectomy with end colostomy (Reid's procedure) as well as lysis of adhesions and abdominal lavage was performed with findings of perforated sigmoid colon with stool throughout the abdominal cavity and no evidence of obvious malignancy. 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 S/p IR drainage 09/09/16 with removal of 20 cc pus and placement of a 10 Fr. pigtail catheter at [facility]. D/c home 09/12/16. Re-presented to [facility] 09/15/16 after being diverted from [facility] (due to internal disaster diversion) where CT was done showing adequate placement of the percutaneous drain near the sigmoid colon and decompressed sigmoid colon abscess, no obvious free air or significant spillage of stool in the abdominal cavity, and incidental finding of tail of the ENGRAVING SUPER[employer] shunt in the pelvis (new from right upper quadrant position of the same drain on the CT scan at [facility]). Transfer to [facility] 09/15/2016 for further cares. S/p upsizing of drain to 12 Fr pigtail on 09/17/16 (communication with colon demonstrated; no obvious free communication to rest of peritoneal space). Patient decompensated in the early hours of the morning on 09/21/2016 and had to be transferred to the intensive care unit with need for endotracheal tube intubation, central line placement, and resuscitation for treatment of shock with lactic acidosis and evidence of peritonitis and free air on the new chest, abdomen, and pelvis CT scan. COMORBIDITIES: 1. Status post ventriculoperitoneal shunt placement. 2. S/p IR drainage 09/09/16 with removal of 20 cc pus and placement of a 10 Fr. pigtail catheter at [facility]. 3. Readmission to [facility] 09/15/16 with upsizing of drain to 12 Fr pigtail on 09/17/16 (communication with colon demonstrated; no obvious free communication to rest of peritoneal space) BRIEF HISTORY: The patient is a very pleasant 70-year-old lady with above- mentioned comorbidities and recent history who deteriorated in the early hours of 09/21/2016. The following is my preoperative note describing the events in detail: Overall deteriorated with need for intubation and showing signs of shock. Additional findings are: Paralytic ileus, renal insufficiency with decreased urine output, cardiac strain with slight increase in troponin, but sinus tachycardia and no evidence of ST depression or other signs of cardiac ischemic disease, lung failure with need for intubation as mentioned, cardiovascular compromise with need for start of pressors, and anemia which is likely due to dilutional effects of resuscitation (but GI source of hemorrhage could not be completely ruled out at this time). I do not believe that the patient will get much better with further resuscitation and only intervention that will potentially reverse this process would be an exploration of the abdominal cavity in the operating room with likely need for partial colectomy and possibly , an ostomy placement. I do not believe that the patient has a primary cardiac issue or risks that could be reduced by intervention. We have attempted to obtain a stat cardiology consultation, but I will not delay the case to complete this consultation since the patient has an emergency which needs to be addressed in the operating room stat and the above-mentioned reason. I had discussed these in detail with the patient and her previously and our plan was to perform this operation this morning. I called and updated the patient's on the phone and again affirmed his consent for the operation for his as well (patient herself not able to give full consent at this time in my opinion; however, I did obtain her consent yesterday morning). I believe that the patient and still understand all of the above and agree with the procedure. I also discussed with Dr. Fu (anesthesiologist ) and we agreed about the decision to go to the operating room with above mentioned rationale. I also contacted Dr. Niraj Miner (neurosurgeon), who kindly agreed to be present for management of the [employer]RAVING [employer]PER[employer] shunt. For a detailed report of my consultation with patient and family, please refer to my separate consultation note. STATEMENT OF THE INFORMED CONSENT: The patient and family appeared to understand the risks of the operation to include, but not be limited to risk of postoperative pain and scar tissue, possible infection or bleeding requiring other interventions such as opening the wound, placement of drainage catheters, or other operative interventions; possible injury to surrounding to structures including bowel, bladder, bile duct, or blood vessels, or solid organs such as liver, kidney, or pancreas requiring other interventions or procedures; possible leakage of bowel from anastomotic sites or suture lines causing significant increase in morbidity and mortality and requiring multiple interventions including but not limited to, placement of drainage catheters, imaging studies, as well as operative interventions; possible other source of sepsis such as urinary tract infections or pneumonias, or other sources of potentially life threatening problems such as deep venous thrombus formation causing pulmonary embolism, myocardial arrhythmias and infarctions, and even . We also briefly discussed the potential need to receive blood products and their potential complications of blood transfusion reactions, transmission of infections, or other complications. After careful consideration of all available options, the patient and family appeared to understand and wished to proceed with surgery. DESCRIPTION OF PROCEDURE: After obtaining informed consent, the patient was brought into the operating room and was placed in a normal supine position. Patient was already intubated. Intravenous access was already in place. A groin central line and A-line were in place from the ICU. A Shore catheter was already in place as well and an orogastric tube was placed. Intravenous antimicrobials were ongoing and appropriately dosed prior to skin incision. We shaved patient's hair with clippers. Prior to my part of the operation, Dr. Miner performed exteriorization of the ventriculoperitoneal shunt, which he dictated a separate note (please see his note for full details). Once he was done, I made a final assessment with anesthesiology regarding approach to enter the abdominal cavity and we both decided that the patient was not well enough to be able to tolerate a laparoscopic approach. My suspicion was also that this would not be very easily doable with a laparoscopic or a laparoscopic hand- assisted approach. For this reason we decided to abandon the laparoscopic technique and to proceed with open exploration. With this in mind, we prepped and draped the skin from nipple line down to mid thighs to include the groin in the usual sterrile fashion. We then called a surgical time-out where patient's identification, date of , nature of the operation, allergies, presence of intravenous antimicrobials, presence of needed equipment, and any other concerns were reviewed and agreed upon by all members of the operating room team. We then placed a 20 cm skin incision starting 5 cm above the umbilicus and going down to the suprapubic area in the midline using a scalpel and then taken the soft tissue down to the level of the fascia using cautery. We then used cautery to very carefully entered the abdominal cavity through the midline fascia. Once we entered the peritoneum, gin stool came out of the wound. We suctioned several liters of stool from the abdominal cavity while be very carefully entered the rest of the abdominal cavity through this incision while doing lysis of adhesions. Once we had adequately evacuated most of the stool, I was able to identify the area of the sigmoid colon that was leaking from the medial aspect of the wall that had a 10 mm hole on the side. There was no obvious evidence of malignancy in the abdominal cavity. The sigmoid colon wall was thickened. The rest of the small bowel and large intestine appear to be slightly inflamed but otherwise normal. There was a rind of stool on parts of the peritoneal surfaces. We quickly identified the descending colon proximal to the sigmoid colon and gained circumferential control around this vessel and fired a blue (bowel) load of the 70 mm hand-held ARIELLA stapler across the distal descending colon but proximal to the area of the thickened sigmoid to transect across bowel and to stop the flow of more stool in through the sigmoid defect and into the pelvis. This significantly decreased the amount of flow of stool into the abdominal cavity for the rest of the operation. Note that 2 areas of the proximal staple line had to be reinforced using interrupted 3-0 silk sutures in a Lembert fashion shortly after firing of the stapler. Also please note that the distal portion of the descending colon was later resected and sent to pathology as a second specimen, therefore negating the need for further attention to the staple line. With the descending colon transected as above, I started a meticulous period of lysis of adhesions in order to define the proximal and distal areas of the sigmoid colon. The patient appeared to have had a prior hysterectomy and bilateral salpingo-oophorectomy and this made the dissection difficult. There was also stool irritation of the wall of the bladder but no obvious colovesical fistula noted. After careful dissection, I was finally able to dissect the sigmoid colon away from the left lateral wall of the pelvis. There were several areas of this area of sigmoid that contained perforations (most of them 5-6 mm in diameter; at least 3 counted). The wall of the sigmoid in this region appear to be somewhat necrotic. We could see the pigtail catheter from the percutaneously placed drain in the vicinity. Again no evidence of malignancy was noted. I then used the LigaSure device to transect across the mesentery of the sigmoid colon and after using a blue (bowel) load on a 30 mm TA stapler to transect across the distal sigmoid colon/rectum at the peritoneal reflection, we send the specimen to pathology with distal margin marked by a silk suture. Note that we were sufficiently next to the wall of the colon and I did not make further efforts to identify the course of the left ureter, both because of proximity to the wall of the bowel as well as the degree of inflammation in the region and the fear of further injury to the ureter if we persisted. We then completed mobilization of the descending colon by taking down the white line of Toldt using cautery as well as blunt dissection in the avascular plane, all the way up to the splenic flexure, and mobilized the splenic flexure of the colon, as well. We used a combination of judicious cautery along with a LigaSure device and blunt dissection, and eventually was able to get the splenic flexure down by completely and transecting through the splenocolic ligament. We utilized an avascular plane on top of the colon to identify and enter the lesser sac, and take down the attachments of the greater omentum on to the course of the transverse colon and the splenic flexure portion of the descending colon. We were able to then do enough dissection so that we could easily move the splenic flexure out medially into the middle of the abdomen. Note that there was no injury to the spleen, capsule, or the organ itself, and there was no bleeding during this phase of the operation. Throughout the operation, I was in communication with anesthesia and we decided at this point that the patient was not stable enough to try to perform a primary anastomosis and for this reason, I decided to only perform an end colostomy (to complete at Reid's procedure) after significantly lavaging the abdominal cavity to a clear drainage (approximately 10 L of normal saline was used to achieve this). Despite mobilization of the splenic flexure of the colon , there was some concerns about shortened mesentery (likely due to previous adhesions and current perforated bowel), which prompted me to do a bit more releasing of the mesentery in order to have a tension-free length of the distal colon to be used in the colostomy portion. I then obtained circumferential control around the most distal portion of the descending colon and transected across the bowel using one more firing of the bowel (blue) load of the hand-held 70 mm ARIELLA stapler and send a specimen to pathology as second specimen marked distal descending colon with a suture marking the most distal margin for permanent sections. The remaining bowel appeared to be viable. We then created a defect across the middle of the rectus sheath a few centimeters caudal to the umbilicus in a para median sagittal line by using scissors to take a circular portion of skin lifted up by coworkers, and then cautery to remove a cylinder of subcutaneous fat all the way down to the anterior rectus sheath. I entered the rectus sheath with cautery and did muscle-splitting maneuver with a Kandy clamp and then entered the posterior sheath with cautery again large enough to have 2 fingers through the defect site. We then delivered the distal portion of the descending colon through this area and the bowel remained exteriorized without retracting back into the abdominal cavity. At this point we ensured adequate hemostasis, suctioned off any excess fluid that we had in the abdominal cavity, and removed all our equipment from the abdominal cavity including the pneumoperitoneum, placed the distal tip of the pigtail catheter back into the pelvis and used this for drainage of this area with securing the drain to the skin using 2-0 nylon suture, closed the midline fascial defect using interrupted [id number] #1 PDS sutures. We then washed the wounds with copious amounts of normal saline. I then matured the colostomy in the usual Kendra fashion by taking the staple line off with cautery and then fixing the size of the bowel onto the skin. I then used 4-0 Monocryl suture to reapproximate the area of the umbilicus and the area slightly around the umbilicus skin area to close this portion to assist with the replacement of the wound VAC as well as the colostomy bag that we fashioned over the colostomy site. Wound VAC appeared to hold suction well. Colostomy bag appliance appears to be fitting in an acceptable (although not completely ideal) fashion. Light dressing was then applied. At the end of the operation, both the sponge count and needle count were reportedly correct x2. The patient tolerated the procedure without any reported complications. ESTIMATED BLOOD LOSS: 200 mL BLOOD OR BLOOD PRODUCT TRANSFUSIONS: None to my knowledge. SPECIMENS: 1. Sigmoid colon. 2. Proximal re-resection of the distal descending colon. COMPLICATIONS: None. DISPOSITION: The patient is to return to the recovery area from where he will be admitted to the hospital for further care. Disclaimer: Inadvertent errors and smelling and grandmother are likely due to EHR/Dragon use. They do not reflect on the quality of the actual delivered patient care. ALEXSANDER DUARTE M.D. Sep 21, 2016 15:57
[2016-09-21] MEDS: FLUCONAZOLE 100 MG/NS (PMX) 50 ML IVPB SCH (15:59)
[2016-09-21 16:15] LABS: ABNORMAL IP MESSAGE 1; HEMATOCRIT 21.3 % (37.0-47.0); MEAN CORPUSCULAR HEMOGLOBIN 27.1 pg (29.0-33.0); MEAN CORPUSCULAR HGB CONC 32.4 g/dl (32.0-37.0); MEAN CORPUSCULAR VOLUME 83.5 fl (82.0-101.0); MEAN PLATELET VOLUME 12.3 fl (7.4-10.4); PLATELET COUNT 108 10^3/UL (140-415); RED BLOOD COUNT 2.55 10^6/ul (4.20-5.40); RED CELL DISTRIBUTION WIDTH 15.3 % (11.5-14.5); WHITE BLOOD COUNT 3.6 10^3/ul (4.8-10.8)
[2016-09-21 16:39] LABS: ALBUMIN 1.6 g/dl (3.3-4.9); BILIRUBIN,DIRECT 0.2 mg/dl (0.00-0.20); BILIRUBIN,INDIRECT 0.1 mg/dl (0-1.1); BILIRUBIN,TOTAL 0.3 mg/dl (0.2-1.3); CALCIUM 6.8 mg/dl (8.4-10.2); CREATININE 0.84 mg/dl (0.44-1.00); POTASSIUM 5.3 mmol/L (3.5-5.1); TOTAL PROTEIN 3.2 g/dl (6.1-8.1)
[2016-09-21 16:49] LABS: LYMPHOCYTES # 0.3 10^3/ul (0.8-2.9); MONOCYTE # 0.5 10^3/ul (0.3-0.9); NEUTROPHIL # 2.6 10^3/ul (1.6-7.5)
[2016-09-21 16:50] LABS: ANISOCYTOSIS 1+; PLATELET ESTIMATE PLT APPEAR DECREASED
[2016-09-21 16:56] LABS: PARTIAL THROMBOPLASTIN TIME 63.1 Sec (25.0-35.0); PROTIME 56.9 Sec (12.2-14.2)
[2016-09-21 16:59] LABS: INR 6.3
[2016-09-21] MEDS ORDERED: DEXTROSE 50% 50 ML SYRINGE IV ONE (17:00)
[2016-09-21 17:34] LABS: CK-MB 28.1 ng/ml (0.0-2.4); TROPONIN-I 0.097 ng/ml (0.00-0.12)
[2016-09-21] MEDS: SODIUM BICARBONATE (IV ADD) 100 MEQ in DEXTROSE 5% 1,000 ML IV SCH (18:12)
[2016-09-21 18:14] LABS: ABNORMAL IP MESSAGE 1; HEMATOCRIT 24.1 % (37.0-47.0); HEMOGLOBIN 7.6 g/dl (12.0-16.0); MEAN CORPUSCULAR HGB CONC 31.5 g/dl (32.0-37.0); MEAN CORPUSCULAR VOLUME 85.8 fl (82.0-101.0); PLATELET COUNT 133 10^3/UL (140-415); RED BLOOD COUNT 2.81 10^6/ul (4.20-5.40); RED CELL DISTRIBUTION WIDTH 15.8 % (11.5-14.5); WHITE BLOOD COUNT 3.9 10^3/ul (4.8-10.8)
[2016-09-21 18:15] LABS: ADD SCAN DIFF NO
[2016-09-21 18:29] LABS: PROTIME 55.5 Sec (12.2-14.2); PT RATIO 4.3
[2016-09-21 18:30] LABS: PARTIAL THROMBOPLASTIN TIME 54.1 Sec (25.0-35.0)
[2016-09-21] MEDS ORDERED: CALCIUM GLUCONATE 10% 2 GM in SOD CHLORIDE 0.9% 100 ML IVPB ONE (18:30)
[2016-09-21 18:38] LABS: INR 6.11
[2016-09-21 18:58] LABS: LYMPHOCYTES # 1.2 10^3/ul (0.8-2.9); MONOCYTE # 0.4 10^3/ul (0.3-0.9); NEUTROPHIL # 2.1 10^3/ul (1.6-7.5)
[2016-09-21] MEDS ORDERED: PHYTONADIONE 10 MG/ML INJ SC ONE (19:00)
[2016-09-21] MEDS ORDERED: GLUCAGON 1 MG INJ IM STA (19:02)
--- NOTE | 2016-09-21 20:20 | CONS ---
Date/Time of Note Date/Time of Note DATE: 09/21/16 TIME: 20:00 Assessment/Plan Assessment/Plan Chief Complaint/Hosp Course ID PROGRESS NOTE TOTAL ABX DAY # => VANCO IV + MERREM + DIFLUCAN 24H INTERVAL SUMMARY * Noncommunicative on the Vent, no fevers * Chart reviewed, D/W RN => Patient developed septic shock was TNS to ICU last night then taken to OR today * POD #0 ->S/P 09/21/16 Externalization of BRAID MAKER shunt. INDICATION: Hydrocephalus, BRAID MAKER shunt, abdominal abscess * POD#0 -> s/p 09/21/16 OPERATION:1. Sigmoid colectomy with performance of end colostomy (Reid's procedure)2. Takedown of splenic flexure of the colon3. Lysis of adhesions. 4. Abdominal lavage * CXR 09/21/16 IMPRESSION: Endotracheal tube tip above zana. NG tube tip in stomach. Right internal jugular central line tip SVC. No pneumothorax. Increased left greater right basilar atelectasis versus infiltrate. Possible small left pleural effusion. EXAM: 70 yo F orally intubated on the Vent, no fevers HEENT: BRAID MAKER shunt externalized Neck is supple trachea midline. Heart: S1, S2 chest rise symmetrical breath sounds clear, diminished basis. Abdomen post-op diminished BS Extremities without cyanosis. ID ASSESSMENT 70 yo F w/PMHx ICH and BRAID MAKER shunt admit with: 1. Sepsis w/shock on pressors with severe metabolic acidosis 2. Perforated sigmoid colon w/abscess => POD#0 -> s/p 09/21/16 OPERATION:1. Sigmoid colectomy with performance of end colostomy (Reid's procedure), w/ Lysis of adhesions. * S/p IR drainage 09/09/16 with removal of 20 cc pus and placement of a 10 Fr. pigtail catheter at [facility]. * s/p upsizing of drain to 12 Fr pigtail on 09/17/16 * Status post prior hysterectomy and bilateral salpingo-oophorectomy through Pfannenstiel incision 4. POD #0 ->S/P 09/21/16 Externalization of BRAID MAKER shunt. INDICATION: Possible BRAID MAKER shunt infection, hx of Hydrocephalus, BRAID MAKER shunt, abdominal abscess 5. Septic shock with multiorgan failure 09/21/2016 requiring ICU admission with intubation and pressors. 6. Acute respiratory failure -> orally intubated 7 (+)Troponin elevation likely type II in the setting of septic shock. Echo from 09/18 showed normal EF and no significant valvular disease. 8. Pancytopenia - ?sepsis (-)MRSA Nares screen ABX ALLERGY: PCN CURRENT ABX: Vanco IV + Merrem + Diflucan ID RECOMMENDATIONS 1. Continue current broad spectrum IV ABX coverage 2. CSF fluid for C&S pending 3. Will follow laith results & monitor clinical response => adjust ABX accordingly 4. Follow Neuro/GI surgery/Cards/Pulm recs 5. Respiratory cx post intubation . Problems: Consultation Date/Type/Reason Admit Date/Time Sep 15, 2016 at 21:35 Initial Consult Date 09/21/16 Type of Consultation: ID Referring Provider: AUNDREA ARMENDARIZ Exam/Review of Systems Vital Signs Vitals Vital Signs Date Time Temp Pulse Resp B/P Pulse Ox O2 Delivery O2 Flow Rate FiO2 09/21/16 19:00 128 25 128/59 97 Mechanical Ventilator 09/21/16 18:00 96.8 09/21/16 17:30 60 Intake and Output 09/20/16 09/20/16 09/21/16 15:00 23:00 07:00 Intake Total 230 ml 3936 ml Output Total 0 ml 0 ml 2200 ml Balance 0 ml 230 ml 1736 ml Results Result Diagram: 09/21/16 1750 09/21/16 1520 Results 24 hrs Laboratory Tests Test 09/20/16 23:42 09/21/16 00:47 09/21/16 00:50 09/21/16 02:30 White Blood Count 6.4 # Red Blood Count 4.39 Hemoglobin 11.7 L Hematocrit 39.2 Mean Corpuscular Volume 89.3 Mean Corpuscular Hemoglobin 26.7 L Mean Corpuscular Hemoglobin Concent 29.8 L Red Cell Distribution Width 15.4 H Platelet Count 257 # Mean Platelet Volume 10.3 Neutrophils % 84.0 H Lymphocytes % 7.8 L Monocytes % 5.2 Eosinophils % 0.2 Basophils % 0.5 Nucleated Red Blood Cells % 0.5 H Neutrophils # 5.4 Lymphocytes # 0.5 L Monocytes # 0.3 Eosinophils # 0.0 Basophils # 0.0 Nucleated Red Blood Cells # 0.0 Sodium Level 143 Potassium Level 6.9 #*H 6.9 *H Chloride Level 107 Carbon Dioxide Level 12 #L Anion Gap 31 #H Blood Urea Nitrogen 14 Creatinine 1.13 H Glucose Level 84 Lactic Acid Level 15.4 *H Calcium Level 9.0 Total Bilirubin 0.2 Direct Bilirubin 0.00 Indirect Bilirubin 0.2 Aspartate Amino Transf (AST/SGOT) 76 H Alanine Aminotransferase (ALT/SGPT) 23 Alkaline Phosphatase 51 Total Protein 5.4 L Albumin 2.5 L Globulin 2.90 Albumin/Globulin Ratio 0.86 Blood Gas Specimen Source Blood arterial Blood arterial Arterial Blood Date Drawn 09/21/2016 12:40:32 AM 09/21/2016 2:15:00 AM Arterial Blood pH (Temp corrected) 6.879 *L 7.204 *L Arterial Blood pCO2 (Temp correct) 32.0 L 29.3 L Arterial Blood pO2 (Temp corrected) 116.2 H 259.7 H Arterial Blood HCO3 5.8 *L 11.3 L Arterial Blood Base Excess -26.6 L -15.3 L Arterial Blood Oxygen Saturation 93.6 L 98.3 Cain Test ACCEPTAB N/A Arterial Blood Gas Puncture Site Right Radial Right Brachial Arterial Blood Carboxyhemoglobin 0 0.3 Arterial Blood Methemoglobin 0.3 0.5 Blood Gas A-a O2 Differential 103.4 H 424.0 H Oxyhemoglobin Percent 93.3 97.5 Total Hemoglobin 12.0 9.2 L Blood Gas Temperature 37.0 37.0 Blood Gas Modality NASAL CANNULA VENT - AC FiO2 36.0 100.0 Blood Gas Critical Value Read Back TMEHROTRA Giovana PONCE MD Blood Gas Notified Whom DARYL BRITO Blood Gas Notified Time 09/21/2016 12:56:45 AM 09/21/2016 2:27:10 AM Blood Gas Respiration Rate 24.0 Blood Gas Actual Respiration Rate 24 Blood Gas Tidal Volume 500.0 Blood Gas Low PEEP Setting 5.0 Test 09/21/16 03:30 09/21/16 03:32 09/21/16 05:00 09/21/16 05:41 Creatine Kinase 467 H Creatine Kinase Index 2.5 Creatinine Kinase MB (Mass) 11.80 H Troponin I 0.125 *H Amylase Level 324 H Lipase 21 L Sodium Level 149 H 151 H Potassium Level 4.7 # 4.8 Chloride Level 110 113 H Carbon Dioxide Level 20 L 18 L Anion Gap 24 #H 25 H Blood Urea Nitrogen 15 16 Creatinine 0.87 0.86 Glucose Level 110 99 Lactic Acid Level 14.8 *H 12.5 *H Calcium Level 7.2 L 7.1 L Total Bilirubin 0.4 0.1 L Direct Bilirubin 0.30 #H 0.10 # Indirect Bilirubin 0.1 0.0 Aspartate Amino Transf (AST/SGOT) 302 H 404 H Alanine Aminotransferase (ALT/SGPT) 56 70 H Alkaline Phosphatase 32 L 31 L Total Protein 3.1 #L 3.3 L Albumin 1.3 #L 1.4 L Globulin 1.80 1.90 Albumin/Globulin Ratio 0.72 0.73 Blood Gas Specimen Source Blood arterial Arterial Blood Date Drawn 09/21/2016 5:50:01 AM Arterial Blood pH (Temp corrected) 7.283 *L Arterial Blood pCO2 (Temp correct) 36.1 Arterial Blood pO2 (Temp corrected) 86.0 Arterial Blood HCO3 16.7 L Arterial Blood Base Excess -9.2 L Arterial Blood Oxygen Saturation 94.4 L Cain Test ACCEPTAB Arterial Blood Gas Puncture Site Right Brachial Arterial Blood Carboxyhemoglobin 0.3 Arterial Blood Methemoglobin 0.2 Blood Gas A-a O2 Differential 302.1 H Oxyhemoglobin Percent 93.9 Total Hemoglobin 9.7 L Blood Gas Temperature 37.0 Blood Gas Respiration Rate 24.0 Blood Gas Actual Respiration Rate 24 Blood Gas Modality VENT - AC FiO2 60.0 Blood Gas Tidal Volume 500.0 Blood Gas Low PEEP Setting 5.0 Blood Gas Critical Value Read Back MUSA Blood Gas Notified Whom CHRISTINE Blood Gas Notified Time 09/21/2016 5:56:55 AM White Blood Count 4.9 # Red Blood Count 3.38 #L Hemoglobin 8.8 #L Hematocrit 28.5 #L Mean Corpuscular Volume 84.3 Mean Corpuscular Hemoglobin 26.0 L Mean Corpuscular Hemoglobin Concent 30.9 L Red Cell Distribution Width 15.4 H Platelet Count 154 # Mean Platelet Volume 10.9 H Neutrophils % 55.0 Band Neutrophils % 24.0 H Lymphocytes % 10.0 L Reactive Lymphocytes % 1.0 Monocytes % 7.0 Eosinophils % Metamyelocytes % 2.0 H Myelocytes % 1.0 H Neutrophils # 2.7 Lymphocytes # 0.5 L Monocytes # 0.3 Eosinophils # Metamyelocytes # 0.1 Myelocytes # 0.0 Toxic Granulation 1+ Dohle Bodies FEW Poikilocytosis 2+ Magnesium Level 2.7 #H Test 09/21/16 08:25 09/21/16 12:13 09/21/16 15:20 09/21/16 16:47 Prothrombin Time 42.3 #H 56.9 #H Prothrombin Time Ratio 3.3 4.8 INR International Normalized Ratio 4.34 6.30 *H Activated Partial Thromboplast Time 47.9 H 63.1 H Sodium Level 150 H 150 H Potassium Level 4.9 5.3 H Chloride Level 113 H 112 H Carbon Dioxide Level 20 L 18 L Anion Gap 22 H 25 H Blood Urea Nitrogen 16 15 Creatinine 0.92 0.84 Glucose Level 97 33 #*L Lactic Acid Level 11.6 *H 14.3 *H Calcium Level 6.9 L 6.8 L Total Bilirubin 0.0 L 0.3 Direct Bilirubin 0.00 0.20 # Indirect Bilirubin 0.0 0.1 Aspartate Amino Transf (AST/SGOT) 496 H 687 H Alanine Aminotransferase (ALT/SGPT) 91 H 138 H Alkaline Phosphatase 35 L 26 L Total Protein 3.9 L 3.2 L Albumin 1.7 L 1.6 L Globulin 2.20 1.60 Albumin/Globulin Ratio 0.77 1.00 Blood Gas Specimen Source Blood arterial Arterial Blood Date Drawn 09/21/2016 12:10:20 PM Arterial Blood pH (Temp corrected) 7.220 *L Arterial Blood pCO2 (Temp correct) 36.5 Arterial Blood pO2 (Temp corrected) 135.4 H Arterial Blood HCO3 15.0 L Arterial Blood Base Excess -12.2 L Arterial Blood Oxygen Saturation 97.4 Cain Test N/A Arterial Blood Gas Puncture Site A-Line Arterial Blood Carboxyhemoglobin 0.1 Arterial Blood Methemoglobin 0.4 Blood Gas A-a O2 Differential 546.1 H Oxyhemoglobin Percent 96.9 Total Hemoglobin 7.9 L Blood Gas Temperature 35.0 Blood Gas Respiration Rate 12.0 Blood Gas Modality VENT - AC FiO2 100.0 Blood Gas Tidal Volume 500.0 Blood Gas Critical Value Read Back Jaziel ACOSTA MD Blood Gas Notified Whom Blood Gas Notified Time 09/21/2016 12:25:12 PM White Blood Count 3.6 #L Red Blood Count 2.55 #L Hemoglobin 6.9 #*L Hematocrit 21.3 #L Mean Corpuscular Volume 83.5 Mean Corpuscular Hemoglobin 27.1 L Mean Corpuscular Hemoglobin Concent 32.4 Red Cell Distribution Width 15.3 H Platelet Count 108 #L Mean Platelet Volume 12.3 H Neutrophils % 72.0 Band Neutrophils % 5.0 Lymphocytes % 8.0 L Monocytes % 15.0 H Eosinophils % Neutrophils # 2.6 Lymphocytes # 0.3 L Monocytes # 0.5 Eosinophils # Platelet Estimate PLT APPEAR DECREASED Anisocytosis 1+ Creatine Kinase 1287 #H Creatine Kinase Index 2.2 Creatinine Kinase MB (Mass) 28.10 H Troponin I 0.097 Bedside Glucose 26 *L Test 09/21/16 16:54 09/21/16 17:50 09/21/16 18:49 09/21/16 19:04 Bedside Glucose 141 64 L 165 White Blood Count 3.9 L Red Blood Count 2.81 L Hemoglobin 7.6 L Hematocrit 24.1 L Mean Corpuscular Volume 85.8 Mean Corpuscular Hemoglobin 27.0 L Mean Corpuscular Hemoglobin Concent 31.5 L Red Cell Distribution Width 15.8 H Platelet Count 133 #L Mean Platelet Volume 12.0 H Neutrophils % 54.0 Band Neutrophils % 5.0 Lymphocytes % 30.0 Monocytes % 11.0 Eosinophils % Neutrophils # 2.1 Lymphocytes # 1.2 Monocytes # 0.4 Eosinophils # Prothrombin Time 55.5 H Prothrombin Time Ratio 4.3 INR International Normalized Ratio 6.11 *H Activated Partial Thromboplast Time 54.1 H Medications Medications Current Medications Morphine Sulfate (morphine) 2 mg Q4H PRN IV PAIN Last administered on 22:55; Admin Dose 2 MG; Start 09/15/16 at 23:30 Ondansetron HCl (Zofran Inj) 4 mg Q6H PRN IV NAUSEA AND/OR VOMITING Last administered on 09/20/16 21:11; Admin Dose 4 MG; Start 09/16/16 at 00:30 Acetaminophen 650 mg 650 mg Q6H PRN PO PAIN LEVEL 1-3 OR FEVER Last administered on 09/17/16 10:06; Admin Dose 650 MG; Start 09/16/16 at 00:30 Ferric Sodium Gluconate Complex 125 mg/Sodium Chloride 110 ml @ 110 mls/hr Q24H IVPB Last administered on 09/20/16 14:29; Admin Dose 110 MLS/HR; Start at 14:00; Stop 09/22/16 at 14:59 Acetaminophen (Ofirmev 1000mg/ 100ml Iv) 100 ml @ 400 mls/hr Q8H IVPB Last administered on 09/21/16 04:02; Admin Dose 400 MLS/HR; Start 09/20/16 at 12:00 ; Stop 09/22/16 at 04:14 Polyethylene Glycol (Miralax) 17 gm DAILY PO Last administered on 09/20/16 11: 44; Admin Dose 17 GM; Start 09/20/16 at 11:00 Docusate Sodium 100 mg 100 mg BID PO Last administered on 09/20/16 11:44; Admin Dose 100 MG; Start 09/20/16 at 11:00 Meropenem/Sodium Chloride 50 ml @ 200 mls/hr Q8 IVPB Last administered on 09/21 05:52; Admin Dose 200 MLS/HR; Start 09/20/16 at 22:00 Fluconazole/ Sodium Chloride 50 ml @ 50 mls/hr Q24H IVPB Last administered on 15:59; Admin Dose 50 MLS/HR; Start 09/20/16 at 16:30 Vancomycin HCl (Vancocin) 100 ml @ 100 mls/hr Q12H IVPB Last administered on 18:03; Admin Dose 100 MLS/HR; Start 09/21/16 at 06:00 Pantoprazole 40 mg 40 mg BID@06,18 IV Last administered on 09/21/16 00:02; Admin Dose 40 MG; Start 09/21/16 at 00:00 Norepinephrine 16 mg/Dextrose 500 ml @ 1.87 mls/hr TITRATE IV ; Start 09/21/16 at 09:00 Pantoprazole 80 mg/Sodium Chloride 100 ml @ 10 mls/hr Q10H IV Last administered on 09/21/16 15:31; Admin Dose 10 MLS/HR; Start 09/21/16 at 02:15 Propofol (Diprivan) 100 ml @ 1.671 mls/ hr Q12H IV Last administered on 06:23; Admin Dose 1.671 MLS/HR; Start 09/21/16 at 02:30 Miscellaneous Information (*Rx Drug Level Order Reminder*) VANCOMYCIN TROUGH AT 0500 ONCE ONCE XX ; Start 09/22/16 at 05:00; Stop 09/22/16 at 05:01 Acetaminophen/ Hydrocodone Bitart (Ventura (5/325)) 1 tab Q4H PRN PO PAIN LEVEL 4 -7; Start 09/21/16 at 15:00 Acetaminophen/ Hydrocodone Bitart (Ventura (5/325)) 2 tab Q4H PRN PO PAIN LEVEL 7 -10; Start 09/21/16 at 15:00 Hydromorphone HCl (Dilaudid) 0.5 mg Q2H PRN IV PAIN; Start 09/21/16 at 15:00 Hydromorphone HCl (Dilaudid) 1 mg Q2H PRN IV PAIN; Start 09/21/16 at 15:00 Docusate Sodium (Colace) 100 mg BID PRN PO CONSTIPATION; Start 09/21/16 at 15: 00 Enoxaparin Sodium 40 mg 40 mg DAILY SC ; Start 09/22/16 at 09:00 Sodium Bicarbonate 100 meq/Dextrose 1,100 ml @ 125 mls/hr Q8H48M IV Last administered on 09/21/16 18:12; Admin Dose 125 MLS/HR; Start 09/21/16 at 19:00 Calcium Gluconate/ Sodium Chloride (Ca Gluc/NS) 120 ml @ 60 mls/hr ONCE ONCE IVPB Last administered on 09/21/16 19:26; Admin Dose 60 MLS/HR; Start at 18:30; Stop 09/21/16 at 20:29 Hydrocortisone 200 mg 200 mg Q8 IV ; Start 09/21/16 at 22:00; Stop 09/22/16 at 14:01 Albumin Human (Albumin Human 25%) 100 ml @ 100 mls/hr Q8H IV ; Start 09/21/16 at 19:30; Stop 09/22/16 at 12:29 DONNA HERNANDEZ NP Sep 21, 2016 20:11
[2016-09-21] MEDS: ALBUMIN HUMAN 25% 100 ML IV SCH (20:39)
[2016-09-21 21:42] LABS: CALCIUM 7.7 mg/dl (8.4-10.2); POTASSIUM 5.2 mmol/L (3.5-5.1)
[2016-09-21] MEDS: HYDROCORTISONE 100 MG INJ IV SCH (21:53)
[2016-09-21] MEDS: HYDROmorphONE 1 MG/ML SYG IV PRN (22:17)
[2016-09-22] VITALS (106 sets, daily range): BP systolic 84–142; BP diastolic 44–85; PULSE 77–128; RESP 18–64
[2016-09-22] MEDS: PANTOPRAZOLE IV 80 MG in SOD CHLORIDE 0.9% 100 ML IV SCH ×4 (00:45→18:01)
[2016-09-22 01:42] LABS: CALCIUM 7.7 mg/dl (8.4-10.2); POTASSIUM 5.1 mmol/L (3.5-5.1)
[2016-09-22] MEDS: SODIUM BICARBONATE (IV ADD) 100 MEQ in DEXTROSE 5% 1,000 ML IV SCH (02:35)
[2016-09-22] MEDS: ALBUMIN HUMAN 25% 100 ML IV SCH ×2 (03:19→11:37)
[2016-09-22] MEDS: HYDROmorphONE 1 MG/ML SYG IV PRN (04:08)
[2016-09-22] MEDS: PANTOPRAZOLE 40 MG INJ IV SCH (04:19)
[2016-09-22] MEDS: ACETAMINOPHEN 1000MG/100ML IV 100 ML IVPB SCH (04:27)
[2016-09-22 05:13] LABS: ADD SCAN DIFF NO
[2016-09-22 05:16] LABS: ABNORMAL IP MESSAGE 1; MEAN CORPUSCULAR HEMOGLOBIN 27.4 pg (29.0-33.0); MEAN CORPUSCULAR HGB CONC 32.9 g/dl (32.0-37.0); MEAN CORPUSCULAR VOLUME 83.3 fl (82.0-101.0); MEAN PLATELET VOLUME 12.9 fl (7.4-10.4); PLATELET COUNT 92 10^3/UL (140-415); RED BLOOD COUNT 2.52 10^6/ul (4.20-5.40); RED CELL DISTRIBUTION WIDTH 15.6 % (11.5-14.5); WHITE BLOOD COUNT 6.1 10^3/ul (4.8-10.8)
[2016-09-22 05:29] LABS: HEMOGLOBIN 6.9 g/dl (12.0-16.0)
[2016-09-22 05:35] LABS: MAGNESIUM 2.1 mg/dl (1.7-2.5); PHOSPHORUS 4.9 mg/dl (2.5-4.9)
[2016-09-22 05:36] LABS: ALBUMIN 2.7 g/dl (3.3-4.9); ALBUMIN/GLOBULIN RATIO 1.68; BILIRUBIN,DIRECT 0.6 mg/dl (0.00-0.20); BILIRUBIN,INDIRECT 0.3 mg/dl (0-1.1); BILIRUBIN,TOTAL 0.9 mg/dl (0.2-1.3); CALCIUM 7.6 mg/dl (8.4-10.2); CREATININE 1.12 mg/dl (0.44-1.00); POTASSIUM 5.2 mmol/L (3.5-5.1); TOTAL PROTEIN 4.3 g/dl (6.1-8.1)
[2016-09-22 05:38] LABS: INR 4.51; PROTIME 43.6 Sec (12.2-14.2); PT RATIO 3.4
[2016-09-22] MEDS ORDERED: PHYTONADIONE 1 MG/0.5 ML SYG IV ONE (06:00)
[2016-09-22] MEDS: HYDROCORTISONE 100 MG INJ IV SCH ×2 (06:08→14:11)
[2016-09-22] MEDS: MEROPENEM 500MG/50 ML (PMX) 50 ML IVPB SCH ×3 (06:08→21:45)
[2016-09-22] MEDS: VANCOMYCIN 500MG/NS (PMX) 100 ML IVPB SCH ×2 (06:25→18:00)
[2016-09-22] MEDS ORDERED: PHYTONADIONE 2 MG in DEXTROSE 5% 50 ML SC SCH (07:00)
[2016-09-22 07:19] LABS: LYMPHOCYTES # 0.7 10^3/ul (0.8-2.9); MONOCYTE # 0.1 10^3/ul (0.3-0.9); MYELOCYTES # 0.1; NEUTROPHIL # 4.1 10^3/ul (1.6-7.5)
[2016-09-22 07:20] LABS: TOXIC GRANULATION MANY
[2016-09-22 07:22] LABS: SMUDGE CELLS% Few
[2016-09-22] MEDS: PROPOFOL 100 ML IV SCH ×3 (07:22→20:57)
[2016-09-22 07:24] LABS: ACANTHOCYTES MODERATE; BURR CELLS MANY
[2016-09-22 07:25] LABS: OVALOCYTES FEW; SCHISTOCYTES FEW; TARGET CELLS OCCASIONAL
[2016-09-22 07:26] LABS: PLATELET ESTIMATE PLT APPEAR DECREASED
--- NOTE | 2016-09-22 07:48 | CONS ---
Date/Time of Note Date/Time of Note DATE: 09/22/16 TIME: 07:38 Consult Date/Type/Reason Admit Date/Time Sep 15, 2016 at 21:35 Initial Consult Date 09/21/16 Type of Consultation: neph Ordering Provider: AUNDREA ARMENDARIZ This is a 70-year-old female with diverticulitis with abscess s/p drain placement whose course has been complicated by Severe Sepsis and Leonard Pleural effusion with likely L sided pneumonia. Patient had acute decompensation in status with systemic shock, metabolic acidosis and had to be intubated and transferred to ICU. noted to have hyperkalemia and hypernatremia and metabolic acidosis has continued good uo despite. Exam General: Patient was observed to be in distress, also showing shallow breathing. She was subsequently intubated. HEENT: Dark matter coming from the oral cavity with dark matter draining from the NG tube. Neck: Supple with full range of motion. No rigidity or meningismus Lungs: Coarse breath sounds bilateral Heart: Sinus tachycardia Abdomen: Soft, mild distention noted of the abdomen, fecal matter observed at the left lower quadrant catheter. Extremities: Normal to inspection, no edema no cyanosis Neurologic: Patient was originally answering questions appropriately and she was alert however she was observed to decompensate and she subsequently needed to be intubated. Objective Vital Signs Date Time Temp Pulse Resp B/P Pulse Ox O2 Delivery O2 Flow Rate FiO2 09/22/16 07:30 99 26 108/51 99 Mechanical Ventilator 09/22/16 07:07 60 09/22/16 07:00 98.8 Intake and Output 09/21/16 09/21/16 09/22/16 15:00 23:00 07:00 Intake Total 497.539 ml 10392.875 ml 1818.25 ml Output Total 60 ml 1209 ml 723 ml Balance 437.539 ml 8837.875 ml 1095.25 ml Results/Medications Result Diagram: 09/22/16 0445 09/22/16 0445 Results 24 hrs Laboratory Tests Test 09/21/16 08:25 09/21/16 12:13 09/21/16 15:20 09/21/16 16:47 Prothrombin Time 42.3 #H 56.9 #H Prothrombin Time Ratio 3.3 4.8 INR International Normalized Ratio 4.34 6.30 *H Activated Partial Thromboplast Time 47.9 H 63.1 H Sodium Level 150 H 150 H Potassium Level 4.9 5.3 H Chloride Level 113 H 112 H Carbon Dioxide Level 20 L 18 L Anion Gap 22 H 25 H Blood Urea Nitrogen 16 15 Creatinine 0.92 0.84 Glucose Level 97 33 #*L Lactic Acid Level 11.6 *H 14.3 *H Calcium Level 6.9 L 6.8 L Total Bilirubin 0.0 L 0.3 Direct Bilirubin 0.00 0.20 # Indirect Bilirubin 0.0 0.1 Aspartate Amino Transf (AST/SGOT) 496 H 687 H Alanine Aminotransferase (ALT/SGPT) 91 H 138 H Alkaline Phosphatase 35 L 26 L Total Protein 3.9 L 3.2 L Albumin 1.7 L 1.6 L Globulin 2.20 1.60 Albumin/Globulin Ratio 0.77 1.00 Blood Gas Specimen Source Blood arterial Arterial Blood Date Drawn 09/21/2016 12:10:20 PM Arterial Blood pH (Temp corrected) 7.220 *L Arterial Blood pCO2 (Temp correct) 36.5 Arterial Blood pO2 (Temp corrected) 135.4 H Arterial Blood HCO3 15.0 L Arterial Blood Base Excess -12.2 L Arterial Blood Oxygen Saturation 97.4 Cain Test N/A Arterial Blood Gas Puncture Site A-Line Arterial Blood Carboxyhemoglobin 0.1 Arterial Blood Methemoglobin 0.4 Blood Gas A-a O2 Differential 546.1 H Oxyhemoglobin Percent 96.9 Total Hemoglobin 7.9 L Blood Gas Temperature 35.0 Blood Gas Respiration Rate 12.0 Blood Gas Modality VENT - AC FiO2 100.0 Blood Gas Tidal Volume 500.0 Blood Gas Critical Value Read Back Jaziel ACOSTA MD Blood Gas Notified Whom Blood Gas Notified Time 09/21/2016 12:25:12 PM White Blood Count 3.6 #L Red Blood Count 2.55 #L Hemoglobin 6.9 #*L Hematocrit 21.3 #L Mean Corpuscular Volume 83.5 Mean Corpuscular Hemoglobin 27.1 L Mean Corpuscular Hemoglobin Concent 32.4 Red Cell Distribution Width 15.3 H Platelet Count 108 #L Mean Platelet Volume 12.3 H Neutrophils % 72.0 Band Neutrophils % 5.0 Lymphocytes % 8.0 L Monocytes % 15.0 H Eosinophils % Neutrophils # 2.6 Lymphocytes # 0.3 L Monocytes # 0.5 Eosinophils # Platelet Estimate PLT APPEAR DECREASED Anisocytosis 1+ Creatine Kinase 1287 #H Creatine Kinase Index 2.2 Creatinine Kinase MB (Mass) 28.10 H Troponin I 0.097 Bedside Glucose 26 *L Test 09/21/16 16:54 09/21/16 17:50 09/21/16 18:49 09/21/16 19:04 Bedside Glucose 141 64 L 165 White Blood Count 3.9 L Red Blood Count 2.81 L Hemoglobin 7.6 L Hematocrit 24.1 L Mean Corpuscular Volume 85.8 Mean Corpuscular Hemoglobin 27.0 L Mean Corpuscular Hemoglobin Concent 31.5 L Red Cell Distribution Width 15.8 H Platelet Count 133 #L Mean Platelet Volume 12.0 H Neutrophils % 54.0 Band Neutrophils % 5.0 Lymphocytes % 30.0 Monocytes % 11.0 Eosinophils % Neutrophils # 2.1 Lymphocytes # 1.2 Monocytes # 0.4 Eosinophils # Prothrombin Time 55.5 H Prothrombin Time Ratio 4.3 INR International Normalized Ratio 6.11 *H Activated Partial Thromboplast Time 54.1 H Test 09/21/16 20:57 09/21/16 21:17 09/22/16 00:00 09/22/16 04:45 Bedside Glucose 134 Sodium Level 151 H 149 H 150 H Potassium Level 5.2 H 5.1 5.2 H Chloride Level 112 H 109 110 Carbon Dioxide Level 16 L 21 20 L Anion Gap 28 H 24 H 25 H Blood Urea Nitrogen 15 16 16 Creatinine 1.00 1.00 1.12 H Glucose Level 131 # 120 150 Calcium Level 7.7 L 7.7 L 7.6 L White Blood Count 6.1 # Red Blood Count 2.52 L Hemoglobin 6.9 *L Hematocrit 21.0 L Mean Corpuscular Volume 83.3 Mean Corpuscular Hemoglobin 27.4 L Mean Corpuscular Hemoglobin Concent 32.9 Red Cell Distribution Width 15.6 H Platelet Count 92 #L Mean Platelet Volume 12.9 H Neutrophils % 68.0 Band Neutrophils % 11.0 H Lymphocytes % 12.0 L Monocytes % 2.0 Eosinophils % Metamyelocytes % 5.0 H Myelocytes % 2.0 H Nucleated Red Blood Cells % 2.0 H Neutrophils # 4.1 Lymphocytes # 0.7 L Monocytes # 0.1 L Eosinophils # Metamyelocytes # 0.3 Myelocytes # 0.1 Smudge Cells Few Toxic Granulation MANY Dohle Bodies FEW Platelet Estimate PLT APPEAR DECREASED Large Platelets MODERATE Target Cells OCCASIONAL Ovalocytes FEW Acanthocytes MODERATE Schistocytes FEW Prothrombin Time 43.6 #H Prothrombin Time Ratio 3.4 INR International Normalized Ratio 4.51 Activated Partial Thromboplast Time 48.0 H Lactic Acid Level 11.4 *H Phosphorus Level 4.9 Magnesium Level 2.1 Total Bilirubin 0.9 Direct Bilirubin 0.60 #H Indirect Bilirubin 0.3 Aspartate Amino Transf (AST/SGOT) 1110 H Alanine Aminotransferase (ALT/SGPT) 211 H Alkaline Phosphatase 43 # Total Protein 4.3 #L Albumin 2.7 #L Globulin 1.60 Albumin/Globulin Ratio 1.68 Vancomycin Level Trough 11.7 Test 09/22/16 05:24 Lab Scanned Report BLOOD TRANSFUSION Medications Current Medications Morphine Sulfate (morphine) 2 mg Q4H PRN IV PAIN Last administered on 22:55; Admin Dose 2 MG; Start 09/15/16 at 23:30 Ondansetron HCl (Zofran Inj) 4 mg Q6H PRN IV NAUSEA AND/OR VOMITING Last administered on 09/20/16 21:11; Admin Dose 4 MG; Start 09/16/16 at 00:30 Acetaminophen 650 mg 650 mg Q6H PRN PO PAIN LEVEL 1-3 OR FEVER Last administered on 09/17/16 10:06; Admin Dose 650 MG; Start 09/16/16 at 00:30 Ferric Sodium Gluconate Complex/ Sodium Chloride (Ferrlecit/NS) 110 ml @ 110 mls/hr Q24H IVPB Last administered on 09/20/16 14:29; Admin Dose 110 MLS/HR; Start 09/18/16 at 14:00; Stop 09/22/16 at 14:59 Polyethylene Glycol (Miralax) 17 gm DAILY PO Last administered on 09/20/16 11: 44; Admin Dose 17 GM; Start 09/20/16 at 11:00 Docusate Sodium 100 mg 100 mg BID PO Last administered on 09/20/16 11:44; Admin Dose 100 MG; Start 09/20/16 at 11:00 Meropenem/Sodium Chloride 50 ml @ 200 mls/hr Q8 IVPB Last administered on 09/22 06:08; Admin Dose 200 MLS/HR; Start 09/20/16 at 22:00 Fluconazole/ Sodium Chloride 50 ml @ 50 mls/hr Q24H IVPB Last administered on 15:59; Admin Dose 50 MLS/HR; Start 09/20/16 at 16:30 Vancomycin HCl (Vancocin) 100 ml @ 100 mls/hr Q12H IVPB Last administered on 06:25; Admin Dose 100 MLS/HR; Start 09/21/16 at 06:00 Pantoprazole 40 mg 40 mg BID@06,18 IV Last administered on 09/21/16 00:02; Admin Dose 40 MG; Start 09/21/16 at 00:00 Norepinephrine 16 mg/Dextrose 500 ml @ 1.87 mls/hr TITRATE IV Last administered on 09/22/16 04:08; Admin Dose 56.25 MLS/HR; Start 09/21/16 at 09: 00 Pantoprazole 80 mg/Sodium Chloride 100 ml @ 10 mls/hr Q10H IV Last administered on 09/22/16 00:45; Admin Dose 10 MLS/HR; Start 09/21/16 at 02:15 Propofol (Diprivan) 100 ml @ 1.671 mls/ hr Q12H IV Last administered on 07:22; Admin Dose 8.355 MLS/HR; Start 09/21/16 at 02:30 Acetaminophen/ Hydrocodone Bitart (Lamar (5/325)) 1 tab Q4H PRN PO PAIN LEVEL 4 -7; Start 09/21/16 at 15:00 Acetaminophen/ Hydrocodone Bitart (Lamar (5/325)) 2 tab Q4H PRN PO PAIN LEVEL 7 -10; Start 09/21/16 at 15:00 Hydromorphone HCl (Dilaudid) 0.5 mg Q2H PRN IV PAIN; Start 09/21/16 at 15:00 Hydromorphone HCl (Dilaudid) 1 mg Q2H PRN IV PAIN Last administered on 04:08; Admin Dose 1 MG; Start 09/21/16 at 15:00 Docusate Sodium (Colace) 100 mg BID PRN PO CONSTIPATION; Start 09/21/16 at 15: 00 Enoxaparin Sodium 40 mg 40 mg DAILY SC ; Start 09/22/16 at 09:00; Status Future Hold Sodium Bicarbonate/ Dextrose (Na Bicarb/D5W) 1,100 ml @ 125 mls/hr Q8H48M IV Last administered on 09/22/16 02:35; Admin Dose 125 MLS/HR; Start 09/21/16 at 19:00 Hydrocortisone 200 mg 200 mg Q8 IV Last administered on 09/22/16 06:08; Admin Dose 200 MG; Start 09/21/16 at 22:00; Stop 09/22/16 at 14:01 Albumin Human 100 ml @ 100 mls/hr Q8H IV Last administered on 09/22/16 03:19 ; Admin Dose 100 MLS/HR; Start 09/21/16 at 19:30; Stop 09/22/16 at 12:29 Phytonadione/ Dextrose (Vitamin K/D5W) 50.2 ml @ 50.2 mls/hr ONCE SC ; Start at 07:00; Stop 09/22/16 at 08:00 Assessment/Plan Chief Complaint/Hosp Course 1. hyperkalemia- spurious but trending up again. already treated with shifting measures. possibly due to shifting sec to severe acidosis. ro other cause. corrected. monitor. 2. Severe Sepsis likely 2/2 diverticulitis with abscess that has failed drain placement r/o probable bowel perforation r/o peritonitis 3. Hx of [employer] shunt placement 4. Iron deficiency anemia. continues to decrease. may benefit from transfusion.. 5. Leonard Pleural effusion with likely L sided pneumonia 6. vdrf 7. metabolic acidosis- related to lactic acidosis from sepsis. improving. lactate level still markedly high but trending down. will change off of bicarb drip as now has mixed metabolic acidosis and metabolic alkalosis. treat underlying condition. 8. hypernatremia- related to fluid shifts and/or volume resuscitation efforts. cont volume resuscitation. check urine studies. Problems: ANGELLA AMADO MD Sep 22, 2016 07:47
[2016-09-22] MEDS ORDERED: PHYTONADIONE 2 MG in DEXTROSE 5% 50 ML IV SCH (07:51)
--- NOTE | 2016-09-22 07:53 | PN ---
Date/Time of Note Date/Time of Note DATE: 09/22/16 TIME: 07:51 Assessment/Plan Lines/Catheters IV Catheter Type (from Nrs): Central Line Shore in Place (from Nrs): Yes Assessment/Plan Assessment/Plan [facility] Progress Note Date of Service: 09/22/2016 Place of service: [facility] ICU Today's Assessment & Plan: Overall remains critically ill with guarded condition. Neurologically patient appears to be intact. Cardiopulmonary system appears to still need assistance ( patient on 1 pressor and still intubated on the vent). No obvious evidence of PE, cardiac tamponade, myocardial infarction, hemothorax, pneumothorax, or other major cardiopulmonary issues. Abdomen appears relatively benign although there is signs of stress with INR and AST being elevated and requiring assistance. No obvious evidence of compartment syndrome (bladder pressures approximately 10 cm of water). Physical exam is concordant with this finding. Drain outputs appeared to be serosanguineous. Ostomy site is not ideal and will likely need revision. I am hopeful that we can stabilize the patient further clinically and have plans to return to the operating room in 1-2 days with further washout, possible connection of the colon and performance of a diverting loop ileostomy if her clinical picture allows. I believe that her hemoglobin drop is dilutional and I do not believe that there is obvious evidence of active hemorrhage. We will use blood product transfusion judiciously and as needed. Her immune system as under stress as shown by thrombocytopenia and relative lack of rising white blood cell count given clinical situation. No indication for acute surgical intervention. Please note that I have not been able to get in touch with patient's ex- and have left messages for him yesterday after the operating room as well as this morning to attempt to keep him updated. I also left my phone number for him to contact me at any time. He has been visiting the patient per nursing reports. With above assessment, I've recommended the following for today: 1. Continue to check bladder pressures and trend over the next 24 hours 2. Continue aggressive medical management with the goal of weaning patient off of pressors and off the vent when possible 3. 1 unit of packed red blood cells started this morning and will recheck hemoglobin around noon 4. Include ABGs with blood checks 5. Continue wound VAC but at 80 mmHg 6. When clinically possible, to start gentle diuresis 7. Will address nutritional intake if the patient is not able to resume a diet in the next 1-2 days. Okay to start gastric trophic feeds at 10 cc/h 8. Check liver numbers with labs. Patient has received adequate vitamin K and will not need further vitamin K for the next several days 9. We will hold Lovenox until her platelet count is over 100 and her INR is less than 2 10. Tentatively plan to return to the operating room on Friday for abdominal washout, possible attempt at connecting the patient's colon and performance of a diverting loop ileostomy Thank you again for your great care of this very pleasant patient and wonderful family. If there are any questions, please feel free to call me at [phone]. Nature of presenting problem: High severity Please note that, given the extensive number of diagnoses or management options , the extensive amount and/or complexity of data needed to be reviewed, and I risk of complications and/or morbidity or mortality, this qualifies as high complexity type of decision-making. Disclaimer: Inadvertent spelling and grammatical errors are likely due to EHR/ dictation software use and do not reflect on the quality of delivered patient care. Also, please note that the electronic time recorded on this node does not necessarily reflect the actual time of the visit. Updated Clinical Summary: A very pleasant 70-year-old lady without significant known past medical history other than a CRUDE OIL TREATER shunt placement many years ago which she did not remember or report, presenting with what appears to be a sigmoid colon abscess or pericolonic abscess, which seemed to be a complication of diverticulitis. S/p IR drainage 09/09/16 with removal of 20 cc pus and placement of a 10 Fr. pigtail catheter at [facility]. D/c home 09/12/16. Re-presented to [place] ED 09/15/16 after being diverted from [facility] (due to internal disaster diversion) where CT was done showing adequate placement of the percutaneous drain near the sigmoid colon and decompressed sigmoid colon abscess, no obvious free air or significant spillage of stool in the abdominal cavity, and incidental finding of tail of the CRUDE OIL TREATER shunt in the pelvis (new from right upper quadrant position of the same drain on the CT scan at [facility]). Transfer to [facility] 09/15/2016 for further cares. S/p upsizing of drain to 12 Fr pigtail on 09/17/16 (communication with colon demonstrated; no obvious free communication to rest of peritoneal space). Patient decompensated in the early hours of the morning on 09/21/2016 and had to be transferred to the intensive care unit with need for endotracheal tube intubation, central line placement, and resuscitation for treatment of shock with lactic acidosis and evidence of peritonitis and free air on the new chest, abdomen, and pelvis CT scan. Comorbidities: 1. Perforated sigmoid colon 2. Status post ventriculoperitoneal shunt placement. 3. Status post prior hysterectomy and bilateral salpingo-oophorectomy through Pfannenstiel incision 4. S/p IR drainage 09/09/16 with removal of 20 cc pus and placement of a 10 Fr. pigtail catheter at [facility]. 5. Readmission to [facility] 09/15/16 with upsizing of drain to 12 Fr pigtail on (communication with colon demonstrated; no obvious free communication to rest of peritoneal space). Septic shock with multiorgan failure 09/21/2016 requiring ICU admission with intubation and pressors. 6. S/p a rather challenging sigmoid colectomy with performance of end colostomy (Reid's procedure), takedown of splenic flexure of the colon, lysis of adhesions (60 minutes), and abdominal lavage at [facility] on 09/21/16 Subjective: No major events or complaints overnight other than above; no obvious abd pain and appears to be under control with medications; no observed or reported n/v/d ; no observed or reported sob or cp; - bowel activity (very minimal stool coming out of the ostomy); - activity; please note that this is based on nursing observations since the patient is currently intubated, sedated and for the most part noncommunicative. Objective: Vitals: See below I's & O's: See below Exam: GENERAL: On exam, the patient was lying in bed and appeared to be comfortable and in no acute distress. Intubated and on the ventilator. ABDOMEN: Soft, nontender and nondistended. Incision dressings are clean, dry and intact without any obvious evidence of underlying erythema, edema, discharge , or hernia. Surgical drain ss. There are no peritoneal signs or guarding. Ostomy appears to be purple in color and somewhat retracted. Minimal stool at the ostium of the ostomy with no output into the bag. SKIN: Skin appears to be pink and feels warm to touch. NEUROLOGIC: Patient is arousable to voice but unable to follow commands. Labs: See below Exam/Review of Systems Vital Signs Vitals Vital Signs Date Time Temp Pulse Resp B/P Pulse Ox O2 Delivery O2 Flow Rate FiO2 09/22/16 07:30 99 26 108/51 99 Mechanical Ventilator 09/22/16 07:07 60 09/22/16 07:00 98.8 Intake and Output 09/21/16 09/21/16 09/22/16 15:00 23:00 07:00 Intake Total 497.539 ml 24454.875 ml 1818.25 ml Output Total 60 ml 1209 ml 733 ml Balance 437.539 ml 8837.875 ml 1085.25 ml Results Result Diagram: 09/22/16 0445 09/22/16 0445 ALEXSANDER DUARTE M.D. Sep 22, 2016 07:53
[2016-09-22] MEDS: POLYETHYLENE GLYCOL 17 GM PACKET PO SCH (08:17)
[2016-09-22] MEDS: DOCUSATE SODIUM 100 MG CAP PO SCH (08:17)
[2016-09-22] MEDS: SOD CHLORIDE 0.45% 1,000 ML IV SCH ×2 (08:21→17:34)
[2016-09-22] MEDS ORDERED: ENOXAPARIN 40 MG/0.4 ML SYG SC SCH (09:00)
--- NOTE | 2016-09-22 10:02 | RADRPT ---
PROCEDURE: XR Chest 1 View. CLINICAL INDICATION: Shortness of breath. TECHNIQUE: AP view of the chest was obtained. COMPARISON: September 21, 2016 FINDINGS: The heart size is within normal limits. Calcified atherosclerosis is noted in the aorta. Endotrache al and nasogastric tubes are stable and appear in grossly appropriate location. Right-sided central line has been removed. Potential right-sided PICC line has its distal end directed superiorly into the right lower neck. Central pulmonary vascular congestion and interstitial prominence in both garcía ngs is identified. Patchy infiltrates throughout both lungs have increased on the right and are sta ble on the left. Small left pleural effusion may be present. Elevation of the left hemidiaphragm i s seen. The osseous structures are stable. IMPRESSION: Calcified atherosclerosis in the aorta. Elevation of the right hemidiaphragm. Interval right-sided central line removal. Potential PICC line over the right upper arm and right chest. The distal end of the PICC line is di rected superiorly into the right lower neck. Repositioning is advised. Central pulmonary vascular congestion and interstitial prominence in both lungs. Routine patchy infiltrates throughout both lungs. Infiltrates throughout the right lung have mildly increased. Potential small left pleural effusion. RPTAT: AA .Gaurav Garcia MD, MD Date Time Electronically viewed and signed by .Gaurav Garcia MD, on 09/22/2016 10:02 .P/
--- NOTE | 2016-09-22 10:46 | CONS ---
Date/Time of Note Date/Time of Note DATE: 09/22/16 TIME: 10:42 Consult Date/Type/Reason Admit Date/Time Sep 15, 2016 at 21:35 Initial Consult Date 09/21/16 Type of Consultation: pulm icu Ordering Provider: AUNDREA ARMENDARIZ Subjective Intubated sedated on mechanical ventilation, continues vasopressor support, Objective Vital Signs Date Time Temp Pulse Resp B/P Pulse Ox O2 Delivery O2 Flow Rate FiO2 09/22/16 10:00 88 24 117/57 98 Mechanical Ventilator 09/22/16 09:20 60 09/22/16 07:00 98.8 Intake and Output 09/21/16 09/21/16 09/22/16 15:00 23:00 07:00 Intake Total 497.539 ml 79929.875 ml 1818.25 ml Output Total 60 ml 1209 ml 733 ml Balance 437.539 ml 8837.875 ml 1085.25 ml Exam GENERAL: Intubated sedated on mechanical ventilation opens eyes to questions. VITAL SIGNS: per chart NECK: Supple. No JVD or lymphadenopathy. CARDIAC EXAM: S1, S2. No added sounds or murmurs. CHEST: clear bilaterally, No added sounds, rales or wheezes ABDOMEN: Diminished air entry bilaterally no rales wheezes EXTREMITIES: No cyanosis, clubbing or edema. NEUROLOGIC: Generalized weakness. No focal deficits. Results/Medications Result Diagram: 09/22/16 0445 09/22/16 0445 Results 24 hrs Chest x-ray Pulmonary edema, possible ARDS. Laboratory Tests Test 09/21/16 12:13 09/21/16 15:20 09/21/16 16:47 09/21/16 16:54 Blood Gas Specimen Source Blood arterial Arterial Blood Date Drawn 09/21/2016 12:10:20 PM Arterial Blood pH (Temp corrected) 7.220 *L Arterial Blood pCO2 (Temp correct) 36.5 Arterial Blood pO2 (Temp corrected) 135.4 H Arterial Blood HCO3 15.0 L Arterial Blood Base Excess -12.2 L Arterial Blood Oxygen Saturation 97.4 Cain Test N/A Arterial Blood Gas Puncture Site A-Line Arterial Blood Carboxyhemoglobin 0.1 Arterial Blood Methemoglobin 0.4 Blood Gas A-a O2 Differential 546.1 H Oxyhemoglobin Percent 96.9 Total Hemoglobin 7.9 L Blood Gas Temperature 35.0 Blood Gas Respiration Rate 12.0 Blood Gas Modality VENT - AC FiO2 100.0 Blood Gas Tidal Volume 500.0 Blood Gas Critical Value Read Back Jaziel ACOSTA MD Blood Gas Notified Whom Blood Gas Notified Time 09/21/2016 12:25:12 PM White Blood Count 3.6 #L Red Blood Count 2.55 #L Hemoglobin 6.9 #*L Hematocrit 21.3 #L Mean Corpuscular Volume 83.5 Mean Corpuscular Hemoglobin 27.1 L Mean Corpuscular Hemoglobin Concent 32.4 Red Cell Distribution Width 15.3 H Platelet Count 108 #L Mean Platelet Volume 12.3 H Neutrophils % 72.0 Band Neutrophils % 5.0 Lymphocytes % 8.0 L Monocytes % 15.0 H Eosinophils % Neutrophils # 2.6 Lymphocytes # 0.3 L Monocytes # 0.5 Eosinophils # Platelet Estimate PLT APPEAR DECREASED Anisocytosis 1+ Prothrombin Time 56.9 #H Prothrombin Time Ratio 4.8 INR International Normalized Ratio 6.30 *H Activated Partial Thromboplast Time 63.1 H Sodium Level 150 H Potassium Level 5.3 H Chloride Level 112 H Carbon Dioxide Level 18 L Anion Gap 25 H Blood Urea Nitrogen 15 Creatinine 0.84 Glucose Level 33 #*L Lactic Acid Level 14.3 *H Calcium Level 6.8 L Total Bilirubin 0.3 Direct Bilirubin 0.20 # Indirect Bilirubin 0.1 Aspartate Amino Transf (AST/SGOT) 687 H Alanine Aminotransferase (ALT/SGPT) 138 H Alkaline Phosphatase 26 L Creatine Kinase 1287 #H Creatine Kinase Index 2.2 Creatinine Kinase MB (Mass) 28.10 H Troponin I 0.097 Total Protein 3.2 L Albumin 1.6 L Globulin 1.60 Albumin/Globulin Ratio 1.00 Bedside Glucose 26 *L 141 Test 09/21/16 17:50 09/21/16 18:49 09/21/16 19:04 09/21/16 20:57 White Blood Count 3.9 L Red Blood Count 2.81 L Hemoglobin 7.6 L Hematocrit 24.1 L Mean Corpuscular Volume 85.8 Mean Corpuscular Hemoglobin 27.0 L Mean Corpuscular Hemoglobin Concent 31.5 L Red Cell Distribution Width 15.8 H Platelet Count 133 #L Mean Platelet Volume 12.0 H Neutrophils % 54.0 Band Neutrophils % 5.0 Lymphocytes % 30.0 Monocytes % 11.0 Eosinophils % Neutrophils # 2.1 Lymphocytes # 1.2 Monocytes # 0.4 Eosinophils # Prothrombin Time 55.5 H Prothrombin Time Ratio 4.3 INR International Normalized Ratio 6.11 *H Activated Partial Thromboplast Time 54.1 H Bedside Glucose 64 L 165 134 Test 09/21/16 21:17 09/22/16 00:00 09/22/16 04:45 09/22/16 05:24 Sodium Level 151 H 149 H 150 H Potassium Level 5.2 H 5.1 5.2 H Chloride Level 112 H 109 110 Carbon Dioxide Level 16 L 21 20 L Anion Gap 28 H 24 H 25 H Blood Urea Nitrogen 15 16 16 Creatinine 1.00 1.00 1.12 H Glucose Level 131 # 120 150 Calcium Level 7.7 L 7.7 L 7.6 L White Blood Count 6.1 # Red Blood Count 2.52 L Hemoglobin 6.9 *L Hematocrit 21.0 L Mean Corpuscular Volume 83.3 Mean Corpuscular Hemoglobin 27.4 L Mean Corpuscular Hemoglobin Concent 32.9 Red Cell Distribution Width 15.6 H Platelet Count 92 #L Mean Platelet Volume 12.9 H Neutrophils % 68.0 Band Neutrophils % 11.0 H Lymphocytes % 12.0 L Monocytes % 2.0 Eosinophils % Metamyelocytes % 5.0 H Myelocytes % 2.0 H Nucleated Red Blood Cells % 2.0 H Neutrophils # 4.1 Lymphocytes # 0.7 L Monocytes # 0.1 L Eosinophils # Metamyelocytes # 0.3 Myelocytes # 0.1 Smudge Cells Few Toxic Granulation MANY Dohle Bodies FEW Platelet Estimate PLT APPEAR DECREASED Large Platelets MODERATE Target Cells OCCASIONAL Ovalocytes FEW Acanthocytes MODERATE Schistocytes FEW Prothrombin Time 43.6 #H Prothrombin Time Ratio 3.4 INR International Normalized Ratio 4.51 Activated Partial Thromboplast Time 48.0 H Lactic Acid Level 11.4 *H Phosphorus Level 4.9 Magnesium Level 2.1 Total Bilirubin 0.9 Direct Bilirubin 0.60 #H Indirect Bilirubin 0.3 Aspartate Amino Transf (AST/SGOT) 1110 H Alanine Aminotransferase (ALT/SGPT) 211 H Alkaline Phosphatase 43 # Total Protein 4.3 #L Albumin 2.7 #L Globulin 1.60 Albumin/Globulin Ratio 1.68 Vancomycin Level Trough 11.7 Lab Scanned Report BLOOD TRANSFUSION Medications Current Medications Morphine Sulfate (morphine) 2 mg Q4H PRN IV PAIN Last administered on 22:55; Admin Dose 2 MG; Start 09/15/16 at 23:30 Ondansetron HCl (Zofran Inj) 4 mg Q6H PRN IV NAUSEA AND/OR VOMITING Last administered on 09/20/16 21:11; Admin Dose 4 MG; Start 09/16/16 at 00:30 Acetaminophen 650 mg 650 mg Q6H PRN PO PAIN LEVEL 1-3 OR FEVER Last administered on 09/17/16 10:06; Admin Dose 650 MG; Start 09/16/16 at 00:30 Ferric Sodium Gluconate Complex/ Sodium Chloride (Ferrlecit/NS) 110 ml @ 110 mls/hr Q24H IVPB Last administered on 09/20/16 14:29; Admin Dose 110 MLS/HR; Start 09/18/16 at 14:00; Stop 09/22/16 at 14:59 Polyethylene Glycol (Miralax) 17 gm DAILY PO Last administered on 09/20/16 11: 44; Admin Dose 17 GM; Start 09/20/16 at 11:00 Docusate Sodium 100 mg 100 mg BID PO Last administered on 09/20/16 11:44; Admin Dose 100 MG; Start 09/20/16 at 11:00 Meropenem/Sodium Chloride 50 ml @ 200 mls/hr Q8 IVPB Last administered on 09/22 06:08; Admin Dose 200 MLS/HR; Start 09/20/16 at 22:00 Fluconazole/ Sodium Chloride 50 ml @ 50 mls/hr Q24H IVPB Last administered on 15:59; Admin Dose 50 MLS/HR; Start 09/20/16 at 16:30 Vancomycin HCl (Vancocin) 100 ml @ 100 mls/hr Q12H IVPB Last administered on 06:25; Admin Dose 100 MLS/HR; Start 09/21/16 at 06:00 Pantoprazole 40 mg 40 mg BID@06,18 IV Last administered on 09/21/16 00:02; Admin Dose 40 MG; Start 09/21/16 at 00:00 Norepinephrine 16 mg/Dextrose 500 ml @ 1.87 mls/hr TITRATE IV Last administered on 09/22/16 04:08; Admin Dose 56.25 MLS/HR; Start 09/21/16 at 09: 00 Pantoprazole 80 mg/Sodium Chloride 100 ml @ 10 mls/hr Q10H IV Last administered on 09/22/16 00:45; Admin Dose 10 MLS/HR; Start 09/21/16 at 02:15 Propofol (Diprivan) 100 ml @ 1.671 mls/ hr Q12H IV Last administered on 07:22; Admin Dose 8.355 MLS/HR; Start 09/21/16 at 02:30 Acetaminophen/ Hydrocodone Bitart ([place] (5/325)) 1 tab Q4H PRN PO PAIN LEVEL 4 -7; Start 09/21/16 at 15:00 Acetaminophen/ Hydrocodone Bitart ([place] (5/325)) 2 tab Q4H PRN PO PAIN LEVEL 7 -10; Start 09/21/16 at 15:00 Hydromorphone HCl (Dilaudid) 0.5 mg Q2H PRN IV PAIN; Start 09/21/16 at 15:00 Hydromorphone HCl (Dilaudid) 1 mg Q2H PRN IV PAIN Last administered on 04:08; Admin Dose 1 MG; Start 09/21/16 at 15:00 Docusate Sodium (Colace) 100 mg BID PRN PO CONSTIPATION; Start 09/21/16 at 15: 00 Enoxaparin Sodium (Lovenox) 40 mg DAILY SC ; Start 09/22/16 at 09:00; Status Future Hold Hydrocortisone 200 mg 200 mg Q8 IV Last administered on 09/22/16 06:08; Admin Dose 200 MG; Start 09/21/16 at 22:00; Stop 09/22/16 at 14:01 Albumin Human 100 ml @ 100 mls/hr Q8H IV Last administered on 09/22/16 03:19 ; Admin Dose 100 MLS/HR; Start 09/21/16 at 19:30; Stop 09/22/16 at 12:29 Sodium Chloride (1/2 NS) 1,000 ml @ 100 mls/hr Q10H IV Last administered on 08:21; Admin Dose 100 MLS/HR; Start 09/22/16 at 08:00 Assessment/Plan Chief Complaint/Hosp Course Assessment 1. Severe sepsis and hypoxemic respiratory failure. Differential includes healthcare associated pneumonia versus aspiration pneumonia. Evidence of pleural effusions also. 2. Possible infected [employer] shunt. Status post externalization 3. Abdominal abscesses possible peritonitis. Exploratory laparotomy today 4. Severe sepsis with metabolic acidosis secondary to above 5. Postop anemia, hemoglobin 6.9. No evidence of active bleeding at present. 6. Electrolyte abnormalities hyperkalemia and hypernatremia Plan 1. Continue mechanical ventilation, will require thoracentesis when more stable pleural fluid studies. 2.'s neurosurgery and general surgery recommendations 3. Continue broad-spectrum antibiotics 4. Trend lactic acid, aggressive fluid resuscitation. Transfusion of packed red blood cells per general surgery. 5. DVT and GI prophylaxis 6. Renal recommendations regarding electrolyte abnormalities Discussed with staff Critical care time 40 minutes. Problems: DAMIEN GUADARRAMA MD, [facility] Sep 22, 2016 10:46
--- NOTE | 2016-09-22 11:41 | CONS ---
Date/Time of Note Date/Time of Note DATE: 09/22/16 TIME: 11:36 Assessment/Plan Assessment/Plan Chief Complaint/Hosp Course Septic shock: from intraabdominal abscess and possible infected P[employer] shunt. S/p sigmoid colectomy. Overall improving but still on levophed Acute respiratory failure: Due to septic shock, severe metabolic acidosis as well as pulm edema Acute diastolic heart failure: Secondary to volume resuscitation in setting of low albumin and third spacing. CXR worse now and with significant anasarca NSTEMI: Trop mildly elevated likely type II in the setting of septic shock. Echo from 09/18 showed normal EF and no significant valvular disease. Repeat trop normalized Diverticulitis complicated by abscess s/p sigmoid colectomy Coagulopathy: ?DIC h/o ICH with PILOT CAPTAIN shunt -wean off levophed with goal MAP >65 -will eventually need diuresis but currently septic and with lactic acidosis so will hold off -no ASA with anemia, coagulopathy and low suspicion for CAD Problems: Consultation Date/Type/Reason Admit Date/Time Sep 15, 2016 at 21:35 Initial Consult Date 09/21/16 Type of Consultation: Cardiology Referring Provider: AUNDREA ARMENDARIZ 24 HR Interval Summary Free Text/Dictation s/p sigmoid colectomy. Trop level normalized. Remains on levophed. CXR with more congestion. Exam/Review of Systems Vital Signs Vitals Vital Signs Date Time Temp Pulse Resp B/P Pulse Ox O2 Delivery O2 Flow Rate FiO2 09/22/16 11:11 86 24 98 60 09/22/16 10:45 119/57 Mechanical Ventilator 09/22/16 07:00 98.8 Intake and Output 09/21/16 09/21/16 09/22/16 15:00 23:00 07:00 Intake Total 497.539 ml 69128.875 ml 1818.25 ml Output Total 60 ml 1209 ml 733 ml Balance 437.539 ml 8837.875 ml 1085.25 ml Exam Constitutional: No alert Head: atraumatic, normocephalic ENMT: intubated Neck: jvd (10cm) Respiratory: diminished breath sounds, No clear to auscultation Cardiovascular: edema (3+ anasarca), regular rate and rhythm, No systolic murmur Gastrointestinal: soft, No distended, No non-tender (mild tenderness ) Musculoskeletal: nl extremities to inspection Neurological: No nl mental status Results Result Diagram: 09/22/16 0445 09/22/16 0445 Results 24 hrs Laboratory Tests Test 09/21/16 12:13 09/21/16 15:20 09/21/16 16:47 09/21/16 16:54 Blood Gas Specimen Source Blood arterial Arterial Blood Date Drawn 09/21/2016 12:10:20 PM Arterial Blood pH (Temp corrected) 7.220 *L Arterial Blood pCO2 (Temp correct) 36.5 Arterial Blood pO2 (Temp corrected) 135.4 H Arterial Blood HCO3 15.0 L Arterial Blood Base Excess -12.2 L Arterial Blood Oxygen Saturation 97.4 Cain Test N/A Arterial Blood Gas Puncture Site A-Line Arterial Blood Carboxyhemoglobin 0.1 Arterial Blood Methemoglobin 0.4 Blood Gas A-a O2 Differential 546.1 H Oxyhemoglobin Percent 96.9 Total Hemoglobin 7.9 L Blood Gas Temperature 35.0 Blood Gas Respiration Rate 12.0 Blood Gas Modality VENT - AC FiO2 100.0 Blood Gas Tidal Volume 500.0 Blood Gas Critical Value Read Back Jaziel ACOSTA MD Blood Gas Notified Whom Blood Gas Notified Time 09/21/2016 12:25:12 PM White Blood Count 3.6 #L Red Blood Count 2.55 #L Hemoglobin 6.9 #*L Hematocrit 21.3 #L Mean Corpuscular Volume 83.5 Mean Corpuscular Hemoglobin 27.1 L Mean Corpuscular Hemoglobin Concent 32.4 Red Cell Distribution Width 15.3 H Platelet Count 108 #L Mean Platelet Volume 12.3 H Neutrophils % 72.0 Band Neutrophils % 5.0 Lymphocytes % 8.0 L Monocytes % 15.0 H Eosinophils % Neutrophils # 2.6 Lymphocytes # 0.3 L Monocytes # 0.5 Eosinophils # Platelet Estimate PLT APPEAR DECREASED Anisocytosis 1+ Prothrombin Time 56.9 #H Prothrombin Time Ratio 4.8 INR International Normalized Ratio 6.30 *H Activated Partial Thromboplast Time 63.1 H Sodium Level 150 H Potassium Level 5.3 H Chloride Level 112 H Carbon Dioxide Level 18 L Anion Gap 25 H Blood Urea Nitrogen 15 Creatinine 0.84 Glucose Level 33 #*L Lactic Acid Level 14.3 *H Calcium Level 6.8 L Total Bilirubin 0.3 Direct Bilirubin 0.20 # Indirect Bilirubin 0.1 Aspartate Amino Transf (AST/SGOT) 687 H Alanine Aminotransferase (ALT/SGPT) 138 H Alkaline Phosphatase 26 L Creatine Kinase 1287 #H Creatine Kinase Index 2.2 Creatinine Kinase MB (Mass) 28.10 H Troponin I 0.097 Total Protein 3.2 L Albumin 1.6 L Globulin 1.60 Albumin/Globulin Ratio 1.00 Bedside Glucose 26 *L 141 Test 09/21/16 17:50 09/21/16 18:49 09/21/16 19:04 09/21/16 20:57 White Blood Count 3.9 L Red Blood Count 2.81 L Hemoglobin 7.6 L Hematocrit 24.1 L Mean Corpuscular Volume 85.8 Mean Corpuscular Hemoglobin 27.0 L Mean Corpuscular Hemoglobin Concent 31.5 L Red Cell Distribution Width 15.8 H Platelet Count 133 #L Mean Platelet Volume 12.0 H Neutrophils % 54.0 Band Neutrophils % 5.0 Lymphocytes % 30.0 Monocytes % 11.0 Eosinophils % Neutrophils # 2.1 Lymphocytes # 1.2 Monocytes # 0.4 Eosinophils # Prothrombin Time 55.5 H Prothrombin Time Ratio 4.3 INR International Normalized Ratio 6.11 *H Activated Partial Thromboplast Time 54.1 H Bedside Glucose 64 L 165 134 Test 09/21/16 21:17 09/22/16 00:00 09/22/16 04:45 09/22/16 05:24 Sodium Level 151 H 149 H 150 H Potassium Level 5.2 H 5.1 5.2 H Chloride Level 112 H 109 110 Carbon Dioxide Level 16 L 21 20 L Anion Gap 28 H 24 H 25 H Blood Urea Nitrogen 15 16 16 Creatinine 1.00 1.00 1.12 H Glucose Level 131 # 120 150 Calcium Level 7.7 L 7.7 L 7.6 L White Blood Count 6.1 # Red Blood Count 2.52 L Hemoglobin 6.9 *L Hematocrit 21.0 L Mean Corpuscular Volume 83.3 Mean Corpuscular Hemoglobin 27.4 L Mean Corpuscular Hemoglobin Concent 32.9 Red Cell Distribution Width 15.6 H Platelet Count 92 #L Mean Platelet Volume 12.9 H Neutrophils % 68.0 Band Neutrophils % 11.0 H Lymphocytes % 12.0 L Monocytes % 2.0 Eosinophils % Metamyelocytes % 5.0 H Myelocytes % 2.0 H Nucleated Red Blood Cells % 2.0 H Neutrophils # 4.1 Lymphocytes # 0.7 L Monocytes # 0.1 L Eosinophils # Metamyelocytes # 0.3 Myelocytes # 0.1 Smudge Cells Few Toxic Granulation MANY Dohle Bodies FEW Platelet Estimate PLT APPEAR DECREASED Large Platelets MODERATE Target Cells OCCASIONAL Ovalocytes FEW Acanthocytes MODERATE Schistocytes FEW Prothrombin Time 43.6 #H Prothrombin Time Ratio 3.4 INR International Normalized Ratio 4.51 Activated Partial Thromboplast Time 48.0 H Lactic Acid Level 11.4 *H Phosphorus Level 4.9 Magnesium Level 2.1 Total Bilirubin 0.9 Direct Bilirubin 0.60 #H Indirect Bilirubin 0.3 Aspartate Amino Transf (AST/SGOT) 1110 H Alanine Aminotransferase (ALT/SGPT) 211 H Alkaline Phosphatase 43 # Total Protein 4.3 #L Albumin 2.7 #L Globulin 1.60 Albumin/Globulin Ratio 1.68 Vancomycin Level Trough 11.7 Lab Scanned Report BLOOD TRANSFUSION Medications Medications Current Medications Morphine Sulfate (morphine) 2 mg Q4H PRN IV PAIN Last administered on 22:55; Admin Dose 2 MG; Start 09/15/16 at 23:30 Ondansetron HCl (Zofran Inj) 4 mg Q6H PRN IV NAUSEA AND/OR VOMITING Last administered on 09/20/16 21:11; Admin Dose 4 MG; Start 09/16/16 at 00:30 Acetaminophen 650 mg 650 mg Q6H PRN PO PAIN LEVEL 1-3 OR FEVER Last administered on 09/17/16 10:06; Admin Dose 650 MG; Start 09/16/16 at 00:30 Ferric Sodium Gluconate Complex/ Sodium Chloride (Ferrlecit/NS) 110 ml @ 110 mls/hr Q24H IVPB Last administered on 09/20/16 14:29; Admin Dose 110 MLS/HR; Start 09/18/16 at 14:00; Stop 09/22/16 at 14:59 Polyethylene Glycol (Miralax) 17 gm DAILY PO Last administered on 09/20/16 11: 44; Admin Dose 17 GM; Start 09/20/16 at 11:00 Docusate Sodium 100 mg 100 mg BID PO Last administered on 09/20/16 11:44; Admin Dose 100 MG; Start 09/20/16 at 11:00 Meropenem/Sodium Chloride 50 ml @ 200 mls/hr Q8 IVPB Last administered on 09/22 06:08; Admin Dose 200 MLS/HR; Start 09/20/16 at 22:00 Fluconazole/ Sodium Chloride 50 ml @ 50 mls/hr Q24H IVPB Last administered on 15:59; Admin Dose 50 MLS/HR; Start 09/20/16 at 16:30 Vancomycin HCl (Vancocin) 100 ml @ 100 mls/hr Q12H IVPB Last administered on 06:25; Admin Dose 100 MLS/HR; Start 09/21/16 at 06:00 Pantoprazole 40 mg 40 mg BID@06,18 IV Last administered on 09/21/16 00:02; Admin Dose 40 MG; Start 09/21/16 at 00:00 Norepinephrine 16 mg/Dextrose 500 ml @ 1.87 mls/hr TITRATE IV Last administered on 09/22/16 04:08; Admin Dose 56.25 MLS/HR; Start 09/21/16 at 09: 00 Pantoprazole 80 mg/Sodium Chloride 100 ml @ 10 mls/hr Q10H IV Last administered on 09/22/16 00:45; Admin Dose 10 MLS/HR; Start 09/21/16 at 02:15 Propofol (Diprivan) 100 ml @ 1.671 mls/ hr Q12H IV Last administered on 07:22; Admin Dose 8.355 MLS/HR; Start 09/21/16 at 02:30 Acetaminophen/ Hydrocodone Bitart ([place] (5/325)) 1 tab Q4H PRN PO PAIN LEVEL 4 -7; Start 09/21/16 at 15:00 Acetaminophen/ Hydrocodone Bitart ([place] (5/325)) 2 tab Q4H PRN PO PAIN LEVEL 7 -10; Start 09/21/16 at 15:00 Hydromorphone HCl (Dilaudid) 0.5 mg Q2H PRN IV PAIN; Start 09/21/16 at 15:00 Hydromorphone HCl (Dilaudid) 1 mg Q2H PRN IV PAIN Last administered on 04:08; Admin Dose 1 MG; Start 09/21/16 at 15:00 Docusate Sodium (Colace) 100 mg BID PRN PO CONSTIPATION; Start 09/21/16 at 15: 00 Enoxaparin Sodium (Lovenox) 40 mg DAILY SC ; Start 09/22/16 at 09:00; Status Future Hold Hydrocortisone 200 mg 200 mg Q8 IV Last administered on 09/22/16 06:08; Admin Dose 200 MG; Start 09/21/16 at 22:00; Stop 09/22/16 at 14:01 Albumin Human 100 ml @ 100 mls/hr Q8H IV Last administered on 09/22/16 03:19 ; Admin Dose 100 MLS/HR; Start 09/21/16 at 19:30; Stop 09/22/16 at 12:29 Sodium Chloride (1/2 NS) 1,000 ml @ 100 mls/hr Q10H IV Last administered on 08:21; Admin Dose 100 MLS/HR; Start 09/22/16 at 08:00 GUSTAVO RAMON Sep 22, 2016 11:41
--- NOTE | 2016-09-22 11:43 | QN ---
Documentation Comment NEUROSURGERY COVERING FOR DR NIRAJ LANDRY Patient remains intubated but follow commands/ easily rousable. CSF is clear; output remains high. NO acute NS issues. Given high output of externalized drain she will likely need V(P)S after infection treated successfully. GLORIA GALICIA MD Sep 22, 2016 11:43
[2016-09-22 12:24] LABS: AADO2 Arterial 317.1 mmHg (7.0-24.0); Arterial Base Excess -4.6 mmol/L (-3.0-3); Arterial COHb 0.3 % (0.0-3.0); Arterial Fraction of Oxyhgb 94.3 % (93.0-99.0); Arterial HCO3 18.5 mmol/L (22.0-26.0); Arterial MetHb 0.6 % (0.0-1.5); Arterial Total Hemglobin 8.2 g/dl (12.0-18.0); MODE VENT - AC
[2016-09-22 13:22] LABS: ADD SCAN DIFF NO
[2016-09-22 13:30] LABS: ABNORMAL IP MESSAGE 1; BASOPHIL # 0.1 10^3/ul (0.0-0.1); BASOPHILS % 1.5 % (0.0-2.0); HEMOGLOBIN 7.4 g/dl (12.0-16.0); LYMPHOCYTES # 0.6 10^3/ul (0.8-2.9); LYMPHOCYTES % 10.5 % (15.0-51.0); MEAN CORPUSCULAR HEMOGLOBIN 26.4 pg (29.0-33.0); MEAN CORPUSCULAR HGB CONC 33.6 g/dl (32.0-37.0); MEAN CORPUSCULAR VOLUME 78.6 fl (82.0-101.0); MONOCYTE # 0.1 10^3/ul (0.3-0.9); MONOCYTES % 2.2 % (0.0-11.0); NEUTROPHIL # 4.3 10^3/ul (1.6-7.5); NEUTROPHILS % 79.2 % (39.0-77.0); NUCLEATED RED BLOOD CELLS% 0.7 /100WBC (0.0-0.0); PLATELET COUNT 126 10^3/UL (140-415); RED CELL DISTRIBUTION WIDTH 18.6 % (11.5-14.5); WHITE BLOOD COUNT 5.4 10^3/ul (4.8-10.8)
[2016-09-22 13:50] LABS: ALBUMIN 2.7 g/dl (3.3-4.9); ALBUMIN/GLOBULIN RATIO 1.8; BILIRUBIN,DIRECT 0.9 mg/dl (0.00-0.20); BILIRUBIN,INDIRECT 0.5 mg/dl (0-1.1); BILIRUBIN,TOTAL 1.4 mg/dl (0.2-1.3); CALCIUM 7.7 mg/dl (8.4-10.2); CREATININE 1.14 mg/dl (0.44-1.00); TOTAL PROTEIN 4.2 g/dl (6.1-8.1)
[2016-09-22] MEDS: SOD FERRIC GLUC COMPLX 125 MG in SOD CHLORIDE 0.9% 100 ML IVPB SCH (14:07)
--- NOTE | 2016-09-22 15:14 | PN ---
Date/Time of Note Date/Time of Note DATE: 09/22/16 TIME: 14:56 Assessment/Plan VTE Prophylaxis VTE Prophylaxis Intervention: SCD's Lines/Catheters IV Catheter Type (from Nrs): Central Line Central line still needed: Yes Urinary Cath still in place: Yes Reason Cath still needed: other (indicate) Assessment/Plan Assessment/Plan This is a 70-year-old female who was seen about 2 weeks to admission in [place] and found to have diverticulitis with abscess. Drain was placed and patient was sent home with abx, patent however came back with fecal matter coming out of drain which was replaced with bigger drain 09/17/16 despite which patient has still decompensated and is being managed for the followin. Severe sepsis with systemic shock and organ dysfunction 2/2 #2 2. 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 Lactic and Metabolic acidosis 2/2 above 4. Mild troponin elevation likely type 2 from #1: trending 5. Acute transaminitis 2/2 shock liver: improving 6. History of intracranial hemorrhage in the past status post [employer] shunt placement that has been stable over time * [employer] shunt was externalized during the surgery September 21, 2016 due to abdominal infection, per neurosurgical notes may need to be reconnected once patient stable versus removed 7. Hypernatremia likely secondary to #1: improved 8. Severe coagulopathy also as a result of #1: improving 9. Iron deficiency hypochromic anemia on iron infusion therapy 10. Diffuse anasarca as well as bilateral pleural effusions likely associated hypoalbuminemia 11. Bilateral pneumonia with vascular congestion concerning for BUD S 12. Acute renal insufficiency secondary to #1 PLAN: * Continue ICU care management * Continue ventilator monitoring and management /follow pulmonary recommendations * In view of pulmonary status and x-ray findings, we will hold tube feeds just for a few hours, plan to resume in the morning and gently increase if okay with surgery * Continue broad-spectrum antibiotics per ID * Patient is planned for blood transfusion, serial labs, electrolytes replacement as indicated * Continue serial lactic acid trend * Patient's management remains dynamic depending on her clinical symptoms and lab findings, she continues require close monitoring, follow-ups and frequent reevaluation * Appreciate all consultants * Further interventions per clinical care Prophylaxis : SCDs / PPI CRITICAL CARE TIME : >35 mins so far Subjective 24 Hr Interval Summary Free Text/Dictation Patient seen and evaluated Comfortably sedated on the ventilator No acute overnight events. Exam/Review of Systems Vital Signs Vitals Vital Signs Date Time Temp Pulse Resp B/P Pulse Ox O2 Delivery O2 Flow Rate FiO2 09/22/16 14:15 84 24 104/52 97 Mechanical Ventilator 09/22/16 14:00 99.0 09/22/16 13:10 60 Intake and Output 09/21/16 09/21/16 09/22/16 15:00 23:00 07:00 Intake Total 497.539 ml 30598.875 ml 1818.25 ml Output Total 60 ml 1209 ml 733 ml Balance 437.539 ml 8837.875 ml 1085.25 ml Exam GENERAL: Intubated and comfortably sedated HEENT: IVON, Intubated LUNGS: diffusely diminished and coarse BS HEART: S1, S2. No murmur, gallops or rubs. Tachycardic ABDOMEN: Soft, there is mild distention and hypoactive bowel sounds, midline scar also has a wound VAC in the area below the umbilicus, colostomy bag to the left side still MT, suprapubic drain with minimal drainage as well. GENITOURINARY: Normal female external genitalia, [place] to bedside drainage EXTREMITIES: Mild 1+ nonpitting edema bilaterally, also some hand edema bilaterally NEUROLOGIC: The patient is currently sedated. Results Result Diagram: 09/22/16 1315 09/22/16 1315 Results 24 hrs Laboratory Tests Test 09/21/16 15:20 09/21/16 16:47 09/21/16 16:54 09/21/16 17:50 White Blood Count 3.6 #L 3.9 L Red Blood Count 2.55 #L 2.81 L Hemoglobin 6.9 #*L 7.6 L Hematocrit 21.3 #L 24.1 L Mean Corpuscular Volume 83.5 85.8 Mean Corpuscular Hemoglobin 27.1 L 27.0 L Mean Corpuscular Hemoglobin Concent 32.4 31.5 L Red Cell Distribution Width 15.3 H 15.8 H Platelet Count 108 #L 133 #L Mean Platelet Volume 12.3 H 12.0 H Neutrophils % 72.0 54.0 Band Neutrophils % 5.0 5.0 Lymphocytes % 8.0 L 30.0 Monocytes % 15.0 H 11.0 Eosinophils % Neutrophils # 2.6 2.1 Lymphocytes # 0.3 L 1.2 Monocytes # 0.5 0.4 Eosinophils # Platelet Estimate PLT APPEAR DECREASED Anisocytosis 1+ Prothrombin Time 56.9 #H 55.5 H Prothrombin Time Ratio 4.8 4.3 INR International Normalized Ratio 6.30 *H 6.11 *H Activated Partial Thromboplast Time 63.1 H 54.1 H Sodium Level 150 H Potassium Level 5.3 H Chloride Level 112 H Carbon Dioxide Level 18 L Anion Gap 25 H Blood Urea Nitrogen 15 Creatinine 0.84 Glucose Level 33 #*L Lactic Acid Level 14.3 *H Calcium Level 6.8 L Total Bilirubin 0.3 Direct Bilirubin 0.20 # Indirect Bilirubin 0.1 Aspartate Amino Transf (AST/SGOT) 687 H Alanine Aminotransferase (ALT/SGPT) 138 H Alkaline Phosphatase 26 L Creatine Kinase 1287 #H Creatine Kinase Index 2.2 Creatinine Kinase MB (Mass) 28.10 H Troponin I 0.097 Total Protein 3.2 L Albumin 1.6 L Globulin 1.60 Albumin/Globulin Ratio 1.00 Bedside Glucose 26 *L 141 Test 09/21/16 18:49 09/21/16 19:04 09/21/16 20:57 09/21/16 21:17 Bedside Glucose 64 L 165 134 Sodium Level 151 H Potassium Level 5.2 H Chloride Level 112 H Carbon Dioxide Level 16 L Anion Gap 28 H Blood Urea Nitrogen 15 Creatinine 1.00 Glucose Level 131 # Calcium Level 7.7 L Test 09/22/16 00:00 09/22/16 04:45 09/22/16 05:24 09/22/16 12:00 Sodium Level 149 H 150 H Potassium Level 5.1 5.2 H Chloride Level 109 110 Carbon Dioxide Level 21 20 L Anion Gap 24 H 25 H Blood Urea Nitrogen 16 16 Creatinine 1.00 1.12 H Glucose Level 120 150 Calcium Level 7.7 L 7.6 L White Blood Count 6.1 # Red Blood Count 2.52 L Hemoglobin 6.9 *L Hematocrit 21.0 L Mean Corpuscular Volume 83.3 Mean Corpuscular Hemoglobin 27.4 L Mean Corpuscular Hemoglobin Concent 32.9 Red Cell Distribution Width 15.6 H Platelet Count 92 #L Mean Platelet Volume 12.9 H Neutrophils % 68.0 Band Neutrophils % 11.0 H Lymphocytes % 12.0 L Monocytes % 2.0 Eosinophils % Metamyelocytes % 5.0 H Myelocytes % 2.0 H Nucleated Red Blood Cells % 2.0 H Neutrophils # 4.1 Lymphocytes # 0.7 L Monocytes # 0.1 L Eosinophils # Metamyelocytes # 0.3 Myelocytes # 0.1 Smudge Cells Few Toxic Granulation MANY Dohle Bodies FEW Platelet Estimate PLT APPEAR DECREASED Large Platelets MODERATE Target Cells OCCASIONAL Ovalocytes FEW Acanthocytes MODERATE Schistocytes FEW Prothrombin Time 43.6 #H Prothrombin Time Ratio 3.4 INR International Normalized Ratio 4.51 Activated Partial Thromboplast Time 48.0 H Lactic Acid Level 11.4 *H Phosphorus Level 4.9 Magnesium Level 2.1 Total Bilirubin 0.9 Direct Bilirubin 0.60 #H Indirect Bilirubin 0.3 Aspartate Amino Transf (AST/SGOT) 1110 H Alanine Aminotransferase (ALT/SGPT) 211 H Alkaline Phosphatase 43 # Total Protein 4.3 #L Albumin 2.7 #L Globulin 1.60 Albumin/Globulin Ratio 1.68 Vancomycin Level Trough 11.7 Lab Scanned Report BLOOD TRANSFUSION Blood Gas Specimen Source Blood arterial Arterial Blood Date Drawn 09/22/2016 12:12:30 PM Arterial Blood pH (Temp corrected) 7.460 H Arterial Blood pCO2 (Temp correct) 26.6 L Arterial Blood pO2 (Temp corrected) 81.4 Arterial Blood HCO3 18.5 L Arterial Blood Base Excess -4.6 L Arterial Blood Oxygen Saturation 95.2 Cain Test N/A Arterial Blood Gas Puncture Site A-Line Arterial Blood Carboxyhemoglobin 0.3 Arterial Blood Methemoglobin 0.6 Blood Gas A-a O2 Differential 317.1 H Oxyhemoglobin Percent 94.3 Total Hemoglobin 8.2 L Blood Gas Temperature 37.0 Blood Gas Respiration Rate 24.0 Blood Gas Actual Respiration Rate 24 Blood Gas Modality VENT - AC FiO2 60.0 Blood Gas Tidal Volume 500.0 Blood Gas Low PEEP Setting 5.0 Blood Gas Inspiratory Pressure 27.0 Blood Gas Notified Whom Blood Gas Notified Time 09/22/2016 12:24:18 PM Test 09/22/16 13:15 White Blood Count 5.4 Red Blood Count 2.80 L Hemoglobin 7.4 L Hematocrit 22.0 L Mean Corpuscular Volume 78.6 L Mean Corpuscular Hemoglobin 26.4 L Mean Corpuscular Hemoglobin Concent 33.6 Red Cell Distribution Width 18.6 H Platelet Count 126 #L Mean Platelet Volume Neutrophils % 79.2 H Lymphocytes % 10.5 L Monocytes % 2.2 Eosinophils % 0.0 Basophils % 1.5 Nucleated Red Blood Cells % 0.7 H Neutrophils # 4.3 Lymphocytes # 0.6 L Monocytes # 0.1 L Eosinophils # 0.0 Basophils # 0.1 Nucleated Red Blood Cells # 0.0 Sodium Level 147 H Potassium Level 5.0 Chloride Level 105 Carbon Dioxide Level 25 Anion Gap 22 H Blood Urea Nitrogen 18 Creatinine 1.14 H Glucose Level 172 Calcium Level 7.7 L Total Bilirubin 1.4 H Direct Bilirubin 0.90 #H Indirect Bilirubin 0.5 Aspartate Amino Transf (AST/SGOT) 551 H Alanine Aminotransferase (ALT/SGPT) 173 H Alkaline Phosphatase 38 L Total Protein 4.2 L Albumin 2.7 L Globulin 1.50 Albumin/Globulin Ratio 1.80 Medications Medications Current Medications Morphine Sulfate (morphine) 2 mg Q4H PRN IV PAIN Last administered on 22:55; Admin Dose 2 MG; Start 09/15/16 at 23:30 Ondansetron HCl (Zofran Inj) 4 mg Q6H PRN IV NAUSEA AND/OR VOMITING Last administered on 09/20/16 21:11; Admin Dose 4 MG; Start 09/16/16 at 00:30 Acetaminophen 650 mg 650 mg Q6H PRN PO PAIN LEVEL 1-3 OR FEVER Last administered on 09/17/16 10:06; Admin Dose 650 MG; Start 09/16/16 at 00:30 Ferric Sodium Gluconate Complex/ Sodium Chloride (Ferrlecit/NS) 110 ml @ 110 mls/hr Q24H IVPB Last administered on 09/22/16 14:07; Admin Dose 110 MLS/HR; Start 09/18/16 at 14:00; Stop 09/22/16 at 14:59 Polyethylene Glycol (Miralax) 17 gm DAILY PO Last administered on 09/20/16 11: 44; Admin Dose 17 GM; Start 09/20/16 at 11:00 Docusate Sodium 100 mg 100 mg BID PO Last administered on 09/20/16 11:44; Admin Dose 100 MG; Start 09/20/16 at 11:00 Meropenem/Sodium Chloride 50 ml @ 200 mls/hr Q8 IVPB Last administered on 09/22 14:08; Admin Dose 200 MLS/HR; Start 09/20/16 at 22:00 Fluconazole/ Sodium Chloride 50 ml @ 50 mls/hr Q24H IVPB Last administered on 15:59; Admin Dose 50 MLS/HR; Start 09/20/16 at 16:30 Vancomycin HCl (Vancocin) 100 ml @ 100 mls/hr Q12H IVPB Last administered on 06:25; Admin Dose 100 MLS/HR; Start 09/21/16 at 06:00 Pantoprazole 40 mg 40 mg BID@06,18 IV Last administered on 09/21/16 00:02; Admin Dose 40 MG; Start 09/21/16 at 00:00 Norepinephrine 16 mg/Dextrose 500 ml @ 1.87 mls/hr TITRATE IV Last administered on 09/22/16 04:08; Admin Dose 56.25 MLS/HR; Start 09/21/16 at 09: 00 Pantoprazole 80 mg/Sodium Chloride 100 ml @ 10 mls/hr Q10H IV Last administered on 09/22/16 14:35; Admin Dose 10 MLS/HR; Start 09/21/16 at 02:15 Propofol (Diprivan) 100 ml @ 1.671 mls/ hr Q12H IV Last administered on 07:22; Admin Dose 8.355 MLS/HR; Start 09/21/16 at 02:30 Acetaminophen/ Hydrocodone Bitart ([place] (5/325)) 1 tab Q4H PRN PO PAIN LEVEL 4 -7; Start 09/21/16 at 15:00 Acetaminophen/ Hydrocodone Bitart ([place] (5/325)) 2 tab Q4H PRN PO PAIN LEVEL 7 -10; Start 09/21/16 at 15:00 Hydromorphone HCl (Dilaudid) 0.5 mg Q2H PRN IV PAIN; Start 09/21/16 at 15:00 Hydromorphone HCl (Dilaudid) 1 mg Q2H PRN IV PAIN Last administered on 04:08; Admin Dose 1 MG; Start 09/21/16 at 15:00 Docusate Sodium (Colace) 100 mg BID PRN PO CONSTIPATION; Start 09/21/16 at 15: 00 Enoxaparin Sodium 40 mg 40 mg DAILY SC ; Start 09/22/16 at 09:00; Status Future Hold Sodium Chloride (1/2 NS) 1,000 ml @ 100 mls/hr Q10H IV Last administered on 08:21; Admin Dose 100 MLS/HR; Start 09/22/16 at 08:00 Procedures Procedures PROCEDURE: XR Chest 1 View. CLINICAL INDICATION: Shortness of breath. TECHNIQUE: AP view of the chest was obtained. COMPARISON: September 21, 2016 FINDINGS: The heart size is within normal limits. Calcified atherosclerosis is noted in the aorta. Endotracheal and nasogastric tubes are stable and appear in grossly appropriate location. Right-sided central line has been removed. Potential right-sided PICC line has its distal end directed superiorly into the right lower neck. Central pulmonary vascular congestion and interstitial prominence in both lungs is identified. Patchy infiltrates throughout both lungs have increased on the right and are stable on the left. Small left pleural effusion may be present. Elevation of the left hemidiaphragm is seen. The osseous structures are stable. IMPRESSION: Calcified atherosclerosis in the aorta. Elevation of the right hemidiaphragm. Interval right-sided central line removal. Potential PICC line over the right upper arm and right chest. The distal end of the PICC line is directed superiorly into the right lower neck. Repositioning is advised. Central pulmonary vascular congestion and interstitial prominence in both lungs. Routine patchy infiltrates throughout both lungs. Infiltrates throughout the right lung have mildly increased. Potential small left pleural effusion. RPTAT: AA .Gaurav Garcia MD, MD Date Time Electronically viewed and signed by .Gaurav Garcia MD, MD on 09/22/2016 10:02 .P/ CC: DAMIEN GUADARRAMA MD, [facility] AUNDREA ARMENDARIZ Sep 22, 2016 15:09
[2016-09-22] MEDS: FLUCONAZOLE 100 MG/NS (PMX) 50 ML IVPB SCH (17:29)
--- NOTE | 2016-09-22 17:38 | CONS ---
Date/Time of Note Date/Time of Note DATE: 09/22/16 TIME: 17:30 Assessment/Plan Assessment/Plan Chief Complaint/Hosp Course ID PROGRESS NOTE TOTAL ABX DAY # => VANCO IV + MERREM + DIFLUCAN 24H INTERVAL SUMMARY * Noncommunicative on the Vent, no fevers, Lines changed New PICC * POD #1 ->S/P 09/21/16 Externalization of SUPERVISOR CELLARS shunt. INDICATION: Hydrocephalus, SUPERVISOR CELLARS shunt, abdominal abscess * POD#1-> s/p 09/21/16 OPERATION:1. Sigmoid colectomy with performance of end colostomy (Reid's procedure)2. Takedown of splenic flexure of the colon3. Lysis of adhesions. 4. Abdominal lavage * MICRO: Kori: 09/21/16-1150 Rcvd: 09/21/16-1225 Source: CSF GRAM STAIN Final POLYMORPH. LEUKOCYTE NONE SEEN . NO ORGANISM SEEN CSF CULTURE Preliminary NO GROWTH AFTER 1 DAY EXAM: 70 yo F orally intubated on the Vent, no fevers HEENT: SUPERVISOR CELLARS shunt externalized Neck is supple trachea midline. Heart: S1, S2 chest rise symmetrical breath sounds clear, diminished basis. Abdomen post-op diminished BS Extremities without cyanosis. ID ASSESSMENT 70 yo F w/PMHx ICH and SUPERVISOR CELLARS shunt admit with: 1. Sepsis w/shock on pressors with severe metabolic acidosis 2. Perforated sigmoid colon w/abscess => POD#0 -> s/p 09/21/16 OPERATION:1. Sigmoid colectomy with performance of end colostomy (Reid's procedure), w/ Lysis of adhesions. * S/p IR drainage 09/09/16 with removal of 20 cc pus and placement of a 10 Fr. pigtail catheter at [facility]. * s/p upsizing of drain to 12 Fr pigtail on 09/17/16 * Status post prior hysterectomy and bilateral salpingo-oophorectomy through Pfannenstiel incision 4. POD #0 ->S/P 09/21/16 Externalization of SUPERVISOR CELLARS shunt. INDICATION: Possible SUPERVISOR CELLARS shunt infection, hx of Hydrocephalus, SUPERVISOR CELLARS shunt, abdominal abscess 5. Septic shock with multiorgan failure 09/21/2016 requiring ICU admission with intubation and pressors. 6. Acute respiratory failure -> orally intubated 7 (+)Troponin elevation likely type II in the setting of septic shock. Echo from 09/18 showed normal EF and no significant valvular disease. 8. Pancytopenia - ?sepsis (-)MRSA Nares screen INVASIVES: PICC, ETT, OGT, FC ABX ALLERGY: PCN CURRENT ABX: Vanco IV + Merrem + Diflucan ID RECOMMENDATIONS 1. Continue current broad spectrum IV ABX coverage 2. CSF fluid for C&S pending 3. Will follow laith results & monitor clinical response => adjust ABX accordingly 4. Follow Neuro/GI surgery/Cards/Pulm recs 5. Respiratory cx post intubation . Problems: Consultation Date/Type/Reason Admit Date/Time Sep 15, 2016 at 21:35 Initial Consult Date 09/21/16 Type of Consultation: id Referring Provider: AUNDREA ARMENDARIZ Exam/Review of Systems Vital Signs Vitals Vital Signs Date Time Temp Pulse Resp B/P Pulse Ox O2 Delivery O2 Flow Rate FiO2 09/22/16 16:57 82 24 97 60 09/22/16 16:30 89/72 Mechanical Ventilator 09/22/16 16:00 98.8 Intake and Output 09/21/16 09/21/16 09/22/16 15:00 23:00 07:00 Intake Total 497.539 ml 27026.875 ml 1818.25 ml Output Total 60 ml 1209 ml 733 ml Balance 437.539 ml 8837.875 ml 1085.25 ml Results Result Diagram: 09/22/16 1315 09/22/16 1315 Results 24 hrs Laboratory Tests Test 09/21/16 17:50 09/21/16 18:49 09/21/16 19:04 09/21/16 20:57 White Blood Count 3.9 L Red Blood Count 2.81 L Hemoglobin 7.6 L Hematocrit 24.1 L Mean Corpuscular Volume 85.8 Mean Corpuscular Hemoglobin 27.0 L Mean Corpuscular Hemoglobin Concent 31.5 L Red Cell Distribution Width 15.8 H Platelet Count 133 #L Mean Platelet Volume 12.0 H Neutrophils % 54.0 Band Neutrophils % 5.0 Lymphocytes % 30.0 Monocytes % 11.0 Eosinophils % Neutrophils # 2.1 Lymphocytes # 1.2 Monocytes # 0.4 Eosinophils # Prothrombin Time 55.5 H Prothrombin Time Ratio 4.3 INR International Normalized Ratio 6.11 *H Activated Partial Thromboplast Time 54.1 H Bedside Glucose 64 L 165 134 Test 09/21/16 21:17 09/22/16 00:00 09/22/16 04:45 09/22/16 05:24 Sodium Level 151 H 149 H 150 H Potassium Level 5.2 H 5.1 5.2 H Chloride Level 112 H 109 110 Carbon Dioxide Level 16 L 21 20 L Anion Gap 28 H 24 H 25 H Blood Urea Nitrogen 15 16 16 Creatinine 1.00 1.00 1.12 H Glucose Level 131 # 120 150 Calcium Level 7.7 L 7.7 L 7.6 L White Blood Count 6.1 # Red Blood Count 2.52 L Hemoglobin 6.9 *L Hematocrit 21.0 L Mean Corpuscular Volume 83.3 Mean Corpuscular Hemoglobin 27.4 L Mean Corpuscular Hemoglobin Concent 32.9 Red Cell Distribution Width 15.6 H Platelet Count 92 #L Mean Platelet Volume 12.9 H Neutrophils % 68.0 Band Neutrophils % 11.0 H Lymphocytes % 12.0 L Monocytes % 2.0 Eosinophils % Metamyelocytes % 5.0 H Myelocytes % 2.0 H Nucleated Red Blood Cells % 2.0 H Neutrophils # 4.1 Lymphocytes # 0.7 L Monocytes # 0.1 L Eosinophils # Metamyelocytes # 0.3 Myelocytes # 0.1 Smudge Cells Few Toxic Granulation MANY Dohle Bodies FEW Platelet Estimate PLT APPEAR DECREASED Large Platelets MODERATE Target Cells OCCASIONAL Ovalocytes FEW Acanthocytes MODERATE Schistocytes FEW Prothrombin Time 43.6 #H Prothrombin Time Ratio 3.4 INR International Normalized Ratio 4.51 Activated Partial Thromboplast Time 48.0 H Lactic Acid Level 11.4 *H Phosphorus Level 4.9 Magnesium Level 2.1 Total Bilirubin 0.9 Direct Bilirubin 0.60 #H Indirect Bilirubin 0.3 Aspartate Amino Transf (AST/SGOT) 1110 H Alanine Aminotransferase (ALT/SGPT) 211 H Alkaline Phosphatase 43 # Total Protein 4.3 #L Albumin 2.7 #L Globulin 1.60 Albumin/Globulin Ratio 1.68 Vancomycin Level Trough 11.7 Lab Scanned Report BLOOD TRANSFUSION Test 09/22/16 12:00 09/22/16 13:15 Blood Gas Specimen Source Blood arterial Arterial Blood Date Drawn 09/22/2016 12:12:30 PM Arterial Blood pH (Temp corrected) 7.460 H Arterial Blood pCO2 (Temp correct) 26.6 L Arterial Blood pO2 (Temp corrected) 81.4 Arterial Blood HCO3 18.5 L Arterial Blood Base Excess -4.6 L Arterial Blood Oxygen Saturation 95.2 Cain Test N/A Arterial Blood Gas Puncture Site A-Line Arterial Blood Carboxyhemoglobin 0.3 Arterial Blood Methemoglobin 0.6 Blood Gas A-a O2 Differential 317.1 H Oxyhemoglobin Percent 94.3 Total Hemoglobin 8.2 L Blood Gas Temperature 37.0 Blood Gas Respiration Rate 24.0 Blood Gas Actual Respiration Rate 24 Blood Gas Modality VENT - AC FiO2 60.0 Blood Gas Tidal Volume 500.0 Blood Gas Low PEEP Setting 5.0 Blood Gas Inspiratory Pressure 27.0 Blood Gas Notified Whom SM Blood Gas Notified Time 09/22/2016 12:24:18 PM White Blood Count 5.4 Red Blood Count 2.80 L Hemoglobin 7.4 L Hematocrit 22.0 L Mean Corpuscular Volume 78.6 L Mean Corpuscular Hemoglobin 26.4 L Mean Corpuscular Hemoglobin Concent 33.6 Red Cell Distribution Width 18.6 H Platelet Count 126 #L Mean Platelet Volume Neutrophils % 79.2 H Lymphocytes % 10.5 L Monocytes % 2.2 Eosinophils % 0.0 Basophils % 1.5 Nucleated Red Blood Cells % 0.7 H Neutrophils # 4.3 Lymphocytes # 0.6 L Monocytes # 0.1 L Eosinophils # 0.0 Basophils # 0.1 Nucleated Red Blood Cells # 0.0 Sodium Level 147 H Potassium Level 5.0 Chloride Level 105 Carbon Dioxide Level 25 Anion Gap 22 H Blood Urea Nitrogen 18 Creatinine 1.14 H Glucose Level 172 Calcium Level 7.7 L Total Bilirubin 1.4 H Direct Bilirubin 0.90 #H Indirect Bilirubin 0.5 Aspartate Amino Transf (AST/SGOT) 551 H Alanine Aminotransferase (ALT/SGPT) 173 H Alkaline Phosphatase 38 L Total Protein 4.2 L Albumin 2.7 L Globulin 1.50 Albumin/Globulin Ratio 1.80 Medications Medications Current Medications Morphine Sulfate (morphine) 2 mg Q4H PRN IV PAIN Last administered on t 22:55; Admin Dose 2 MG; Start 09/15/16 at 23:30 Ondansetron HCl (Zofran Inj) 4 mg Q6H PRN IV NAUSEA AND/OR VOMITING Last administered on 09/20/16 21:11; Admin Dose 4 MG; Start 09/16/16 at 00:30 Acetaminophen (Tylenol Tab) 650 mg Q6H PRN PO PAIN LEVEL 1-3 OR FEVER Last administered on 09/17/16 10:06; Admin Dose 650 MG; Start 09/16/16 at 00:30 Polyethylene Glycol (Miralax) 17 gm DAILY PO Last administered on 09/20/16 11: 44; Admin Dose 17 GM; Start 09/20/16 at 11:00 Docusate Sodium 100 mg 100 mg BID PO Last administered on 09/20/16 11:44; Admin Dose 100 MG; Start 09/20/16 at 11:00 Meropenem/Sodium Chloride 50 ml @ 200 mls/hr Q8 IVPB Last administered on 09/22 14:08; Admin Dose 200 MLS/HR; Start 09/20/16 at 22:00 Fluconazole/ Sodium Chloride 50 ml @ 50 mls/hr Q24H IVPB Last administered on 17:29; Admin Dose 50 MLS/HR; Start 09/20/16 at 16:30 Vancomycin HCl 100 ml @ 100 mls/hr Q12H IVPB Last administered on 09/22/16 06 :25; Admin Dose 100 MLS/HR; Start 09/21/16 at 06:00 Norepinephrine 16 mg/Dextrose 500 ml @ 1.87 mls/hr TITRATE IV Last administered on 09/22/16 04:08; Admin Dose 56.25 MLS/HR; Start 09/21/16 at 09: 00 Pantoprazole 80 mg/Sodium Chloride 100 ml @ 10 mls/hr Q10H IV Last administered on 09/22/16 14:35; Admin Dose 10 MLS/HR; Start 09/21/16 at 02:15 Propofol (Diprivan) 100 ml @ 1.671 mls/ hr Q12H IV Last administered on 07:22; Admin Dose 8.355 MLS/HR; Start 09/21/16 at 02:30 Acetaminophen/ Hydrocodone Bitart ([place] (5/325)) 1 tab Q4H PRN PO PAIN LEVEL 4 -7; Start 09/21/16 at 15:00 Acetaminophen/ Hydrocodone Bitart ([place] (5/325)) 2 tab Q4H PRN PO PAIN LEVEL 7 -10; Start 09/21/16 at 15:00 Hydromorphone HCl (Dilaudid) 0.5 mg Q2H PRN IV PAIN; Start 09/21/16 at 15:00 Hydromorphone HCl (Dilaudid) 1 mg Q2H PRN IV PAIN Last administered on 04:08; Admin Dose 1 MG; Start 09/21/16 at 15:00 Docusate Sodium (Colace) 100 mg BID PRN PO CONSTIPATION; Start 09/21/16 at 15: 00 Enoxaparin Sodium 40 mg 40 mg DAILY SC ; Start 09/22/16 at 09:00; Status Future Hold Sodium Chloride (1/2 NS) 1,000 ml @ 100 mls/hr Q10H IV Last administered on 08:21; Admin Dose 100 MLS/HR; Start 09/22/16 at 08:00 DONNA HERNANDEZ NP Sep 22, 2016 17:38
[2016-09-22 18:05] LABS: AADO2 Arterial 319.1 mmHg (7.0-24.0); Arterial Base Excess -2.1 mmol/L (-3.0-3); Arterial COHb 0.3 % (0.0-3.0); Arterial Fraction of Oxyhgb 94.2 % (93.0-99.0); Arterial HCO3 20.2 mmol/L (22.0-26.0); Arterial MetHb 0.5 % (0.0-1.5); Arterial Total Hemglobin 8.1 g/dl (12.0-18.0); MODE VENT - AC
[2016-09-22 19:04] LABS: ADD SCAN DIFF NO
[2016-09-22 19:07] LABS: ABNORMAL IP MESSAGE 1; HEMATOCRIT 22.5 % (37.0-47.0); HEMOGLOBIN 7.3 g/dl (12.0-16.0); MEAN CORPUSCULAR HEMOGLOBIN 25.4 pg (29.0-33.0); MEAN CORPUSCULAR HGB CONC 32.4 g/dl (32.0-37.0); MEAN CORPUSCULAR VOLUME 78.4 fl (82.0-101.0); PLATELET COUNT 54 10^3/UL (140-415); RED BLOOD COUNT 2.87 10^6/ul (4.20-5.40)
[2016-09-22 19:36] LABS: INR 3.9; PROTIME 38.9 Sec (12.2-14.2)
[2016-09-22 19:41] LABS: ALBUMIN 2.6 g/dl (3.3-4.9); ALBUMIN/GLOBULIN RATIO 1.62; BILIRUBIN,DIRECT 1.1 mg/dl (0.00-0.20); BILIRUBIN,INDIRECT 0.6 mg/dl (0-1.1); BILIRUBIN,TOTAL 1.7 mg/dl (0.2-1.3); CALCIUM 7.3 mg/dl (8.4-10.2); CREATININE 1.18 mg/dl (0.44-1.00); POTASSIUM 4.9 mmol/L (3.5-5.1); TOTAL PROTEIN 4.2 g/dl (6.1-8.1)
[2016-09-22 19:42] LABS: MONOCYTE # 0.1 10^3/ul (0.3-0.9); NEUTROPHIL # 4.8 10^3/ul (1.6-7.5)
[2016-09-22] MEDS ORDERED: FUROSEMIDE 20 MG INJ IV ONE ×2 (20:30→22:30)
[2016-09-22] MEDS: DOCUSATE SODIUM 10 MG/ML (10ML CUP) NGT SCH (21:02)
[2016-09-22 22:04] LABS: AADO2 Arterial 332.7 mmHg (7.0-24.0); Arterial Base Excess -0.9 mmol/L (-3.0-3); Arterial COHb 0.3 % (0.0-3.0); Arterial Fraction of Oxyhgb 90.7 % (93.0-99.0); Arterial MetHb 0.6 % (0.0-1.5); MODE VENT - AC
[2016-09-23] VITALS (73 sets, daily range): BP systolic 92–149; BP diastolic 45–87; PULSE 71–95; RESP 16–30
[2016-09-23] MEDS: HYDROmorphONE 1 MG/ML SYG IV PRN (00:11)
[2016-09-23] MEDS: PANTOPRAZOLE IV 80 MG in SOD CHLORIDE 0.9% 100 ML IV SCH ×2 (02:16→13:05)
[2016-09-23] MEDS: PROPOFOL 100 ML IV SCH ×3 (03:57→21:26)
[2016-09-23] MEDS: SOD CHLORIDE 0.45% 1,000 ML IV SCH (03:57)
[2016-09-23 04:37] LABS: ADD SCAN DIFF NO
[2016-09-23 04:40] LABS: ABNORMAL IP MESSAGE 1; BASOPHIL # 0.1 10^3/ul (0.0-0.1); BASOPHILS % 1.2 % (0.0-2.0); HEMATOCRIT 23.6 % (37.0-47.0); HEMOGLOBIN 7.6 g/dl (12.0-16.0); LYMPHOCYTES # 0.6 10^3/ul (0.8-2.9); LYMPHOCYTES % 10.8 % (15.0-51.0); MEAN CORPUSCULAR HEMOGLOBIN 25.4 pg (29.0-33.0); MEAN CORPUSCULAR HGB CONC 32.2 g/dl (32.0-37.0); MEAN CORPUSCULAR VOLUME 78.9 fl (82.0-101.0); MONOCYTE # 0.3 10^3/ul (0.3-0.9); MONOCYTES % 4.2 % (0.0-11.0); NEUTROPHIL # 4.6 10^3/ul (1.6-7.5); NEUTROPHILS % 77.9 % (39.0-77.0); NUCLEATED RED BLOOD CELLS # 0.1 10^3/ul (0.0-0.0); NUCLEATED RED BLOOD CELLS% 1.2 /100WBC (0.0-0.0); PLATELET COUNT 40 10^3/UL (140-415); RED BLOOD COUNT 2.99 10^6/ul (4.20-5.40); RED CELL DISTRIBUTION WIDTH 19.5 % (11.5-14.5)
[2016-09-23 04:55] LABS: INR 2.73; PROTIME 29.3 Sec (12.2-14.2); PT RATIO 2.3
[2016-09-23 04:56] LABS: PARTIAL THROMBOPLASTIN TIME 39.4 Sec (25.0-35.0)
[2016-09-23 05:10] LABS: ALBUMIN 2.4 g/dl (3.3-4.9); ALBUMIN/GLOBULIN RATIO 1.41; BILIRUBIN,DIRECT 0.8 mg/dl (0.00-0.20); BILIRUBIN,INDIRECT 0.4 mg/dl (0-1.1); BILIRUBIN,TOTAL 1.2 mg/dl (0.2-1.3); CALCIUM 7.2 mg/dl (8.4-10.2); CREATININE 1.24 mg/dl (0.44-1.00); PHOSPHORUS 4.7 mg/dl (2.5-4.9); POTASSIUM 4.6 mmol/L (3.5-5.1); TOTAL PROTEIN 4.1 g/dl (6.1-8.1)
[2016-09-23 05:24] LABS: AADO2 Arterial 381.4 mmHg (7.0-24.0); Arterial Base Excess -1.5 mmol/L (-3.0-3); Arterial COHb 0.3 % (0.0-3.0); Arterial Fraction of Oxyhgb 93.8 % (93.0-99.0); Arterial HCO3 21.8 mmol/L (22.0-26.0); Arterial MetHb 0.7 % (0.0-1.5); Arterial Total Hemglobin 8.1 g/dl (12.0-18.0); MODE VENT - AC
[2016-09-23] MEDS: MEROPENEM 500MG/50 ML (PMX) 50 ML IVPB SCH ×3 (05:37→21:25)
[2016-09-23] MEDS: morphine 2 MG INJ IV PRN (06:26)
[2016-09-23] MEDS: VANCOMYCIN 500MG/NS (PMX) 100 ML IVPB SCH ×2 (06:28→18:12)
[2016-09-23] MEDS ORDERED: FUROSEMIDE 20 MG INJ IV ONE (08:00)
--- NOTE | 2016-09-23 08:03 | RADRPT ---
PROCEDURE: XR Chest. CLINICAL INDICATION: Shortness of breath. TECHNIQUE: Single frontal view. COMPARISON: 09/22/2016. FINDINGS: The endotracheal tube and nasogastric tube are in satisfactory position. There is bilateral pulmona ry air space disease consistent with pulmonary edema or bilateral pneumonia. A right subclavian vei n catheter is present with the tip in the right internal jugular vein. The heart size is mildly enlarged. There is calcification in the aorta consistent with atherosclero sis. There are small bilateral pleural effusions. There is no pneumothorax. IMPRESSION: 1. Right subclavian vein catheter tip in the right internal jugular vein. 2. No change from 09/22/2016. RPTAT: QQ .Beto Cortes MD, MD Date Time Electronically viewed and signed by .Beto Cortes MD, on 09/23/2016 08:03 .R/
[2016-09-23] MEDS: POLYETHYLENE GLYCOL 17 GM PACKET PO SCH (08:30)
[2016-09-23] MEDS: DOCUSATE SODIUM 10 MG/ML (10ML CUP) NGT SCH ×2 (08:30→21:25)
[2016-09-23 09:07] LABS: AADO2 Arterial 295.6 mmHg (7.0-24.0); Arterial Base Excess -4.8 mmol/L (-3.0-3); Arterial COHb 0.3 % (0.0-3.0); Arterial Fraction of Oxyhgb 95.6 % (93.0-99.0); Arterial HCO3 18.7 mmol/L (22.0-26.0); Arterial MetHb 0.8 % (0.0-1.5); Arterial Total Hemglobin 7.3 g/dl (12.0-18.0); MODE VENT - AC
--- NOTE | 2016-09-23 10:18 | CONS ---
Date/Time of Note Date/Time of Note DATE: 09/23/16 TIME: 10:09 Assessment/Plan Assessment/Plan Additional Assessment/Plan Patient is unable to answer any questions she is sedated on propofol. From the Palliative Care standpoint I will contact her ex- who apparently has the agent on her behalf. I spoken to patient's nurse she is generally improving but unfortunately she still on 70% FiO2 and 5 of PEEP. Her CODE STATUS is full code this will be addressed. In spite of the fact that she is improving her long-term prognosis is poor other palliative care issues will be addressed with family members as soon as possible I have asked case management to schedule a prompt appointment . 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 Hx of Present Illness All of this information is taken from patient's medical record she is currently intubated and sedated. Additionally there are no family members at the side there is an ex who is not here. Patient was admitted to [facility] with abdominal discomfort and history of diverticulitis and diverticular abscess. Patient had a LIEUTENANT SHIFT SUPERVISOR on medical floor, was found to be septic, she has a past medical history of intermittent cranial hemorrhage currently has a shunt placed. At this time those are her major medical problems that will contribute to her prognosis. 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) Social History Alcohol Use: none Smoking Status: Unknown if ever smoked Drug Use: none Exam/Review of Systems Vital Signs Vitals Vital Signs Date Time Temp Pulse Resp B/P Pulse Ox O2 Delivery O2 Flow Rate FiO2 09/23/16 09:45 79 18 108/52 97 09/23/16 09:00 Mechanical Ventilator 09/23/16 08:00 98.7 09/23/16 08:00 70 Intake and Output 09/22/16 09/22/16 09/23/16 15:00 23:00 07:00 Intake Total 1276.762 ml 1395.391 ml 1040.227 ml Output Total 367 ml 588 ml 768 ml Balance 909.762 ml 807.391 ml 272.227 ml Exam Constitutional: non-verbal Head: atraumatic, normocephalic Respiratory: diminished breath sounds, other (Diminished breath sounds right greater than left) Cardiovascular: regular rate and rhythm, No S3, No S4, No bruits, No diastolic murmur, No edema, No gallop, No irregular rhythm, No jugular venous distention (JVD), No murmurs/extra sounds, No other, No rub, No systolic murmur Extremities: normal pulses Results Result Diagram: 09/23/16 0345 09/23/16 0345 Results 24 hrs Laboratory Tests Test 09/22/16 12:00 09/22/16 13:15 09/22/16 18:00 09/22/16 18:34 Blood Gas Specimen Source Blood arterial Blood arterial Arterial Blood Date Drawn 09/22/2016 12:12:30 PM 09/22/2016 5:57:02 PM Arterial Blood pH (Temp corrected) 7.460 H 7.515 H Arterial Blood pCO2 (Temp correct) 26.6 L 25.6 L Arterial Blood pO2 (Temp corrected) 81.4 80.5 Arterial Blood HCO3 18.5 L 20.2 L Arterial Blood Base Excess -4.6 L -2.1 Arterial Blood Oxygen Saturation 95.2 95.0 Cain Test N/A N/A Arterial Blood Gas Puncture Site A-Line A-Line Arterial Blood Carboxyhemoglobin 0.3 0.3 Arterial Blood Methemoglobin 0.6 0.5 Blood Gas A-a O2 Differential 317.1 H 319.1 H Oxyhemoglobin Percent 94.3 94.2 Total Hemoglobin 8.2 L 8.1 L Blood Gas Temperature 37.0 37.0 Blood Gas Respiration Rate 24.0 24.0 Blood Gas Actual Respiration Rate 24 24 Blood Gas Modality VENT - AC VENT - AC FiO2 60.0 60.0 Blood Gas Tidal Volume 500.0 500.0 Blood Gas Low PEEP Setting 5.0 5.0 Blood Gas Inspiratory Pressure 27.0 Blood Gas Notified Whom SABINO LIPSCOMB Blood Gas Notified Time 09/22/2016 12:24:18 PM 09/22/2016 6:05:40 PM White Blood Count 5.4 6.0 Red Blood Count 2.80 L 2.87 L Hemoglobin 7.4 L 7.3 L Hematocrit 22.0 L 22.5 L Mean Corpuscular Volume 78.6 L 78.4 L Mean Corpuscular Hemoglobin 26.4 L 25.4 L Mean Corpuscular Hemoglobin Concent 33.6 32.4 Red Cell Distribution Width 18.6 H 19.0 H Platelet Count 126 #L 54 #L Mean Platelet Volume Neutrophils % 79.2 H 80.0 H Lymphocytes % 10.5 L 17.0 Monocytes % 2.2 2.0 Eosinophils % 0.0 Basophils % 1.5 Nucleated Red Blood Cells % 0.7 H Neutrophils # 4.3 4.8 Lymphocytes # 0.6 L 1.0 Monocytes # 0.1 L 0.1 L Eosinophils # 0.0 Basophils # 0.1 Nucleated Red Blood Cells # 0.0 Sodium Level 147 H 147 H Potassium Level 5.0 4.9 Chloride Level 105 106 Carbon Dioxide Level 25 23 Anion Gap 22 H 23 H Blood Urea Nitrogen 18 18 Creatinine 1.14 H 1.18 H Glucose Level 172 167 Calcium Level 7.7 L 7.3 L Total Bilirubin 1.4 H 1.7 H Direct Bilirubin 0.90 #H 1.10 H Indirect Bilirubin 0.5 0.6 Aspartate Amino Transf (AST/SGOT) 551 H 378 H Alanine Aminotransferase (ALT/SGPT) 173 H 149 H Alkaline Phosphatase 38 L 41 L Total Protein 4.2 L 4.2 L Albumin 2.7 L 2.6 L Globulin 1.50 1.60 Albumin/Globulin Ratio 1.80 1.62 Band Neutrophils % 1.0 Prothrombin Time 38.9 H Prothrombin Time Ratio 3.0 INR International Normalized Ratio 3.90 Test 09/22/16 22:00 09/23/16 03:45 09/23/16 05:00 09/23/16 05:07 Blood Gas Specimen Source Blood arterial Blood arterial Arterial Blood Date Drawn 09/22/2016 9:50:09 PM 09/23/2016 5:13:03 AM Arterial Blood pH (Temp corrected) 7.495 H 7.463 H Arterial Blood pCO2 (Temp correct) 29.2 L 31.2 L Arterial Blood pO2 (Temp corrected) 63.0 L 84.2 Arterial Blood HCO3 22.0 21.8 L Arterial Blood Base Excess -0.9 -1.5 Arterial Blood Oxygen Saturation 91.5 L 94.7 L Cain Test N/A N/A Arterial Blood Gas Puncture Site A-Line A-Line Arterial Blood Carboxyhemoglobin 0.3 0.3 Arterial Blood Methemoglobin 0.6 0.7 Blood Gas A-a O2 Differential 332.7 H 381.4 H Oxyhemoglobin Percent 90.7 L 93.8 Total Hemoglobin 8.0 L 8.1 L Blood Gas Temperature 37.0 37.0 Blood Gas Respiration Rate 18.0 18.0 Blood Gas Actual Respiration Rate 88 18 Blood Gas Modality VENT - AC VENT - AC FiO2 60.0 70.0 Blood Gas Tidal Volume 500.0 500.0 Blood Gas Low PEEP Setting 5.0 5.0 Blood Gas Notified Whom MA MG Blood Gas Notified Time 09/22/2016 10:04:11 PM 09/23/2016 5:23:56 AM White Blood Count 6.0 Red Blood Count 2.99 L Hemoglobin 7.6 L Hematocrit 23.6 L Mean Corpuscular Volume 78.9 L Mean Corpuscular Hemoglobin 25.4 L Mean Corpuscular Hemoglobin Concent 32.2 Red Cell Distribution Width 19.5 H Platelet Count 40 #L Mean Platelet Volume Neutrophils % 77.9 H Lymphocytes % 10.8 L Monocytes % 4.2 Eosinophils % 0.0 Basophils % 1.2 Nucleated Red Blood Cells % 1.2 H Neutrophils # 4.6 Lymphocytes # 0.6 L Monocytes # 0.3 Eosinophils # 0.0 Basophils # 0.1 Nucleated Red Blood Cells # 0.1 H Prothrombin Time 29.3 #H Prothrombin Time Ratio 2.3 INR International Normalized Ratio 2.73 Activated Partial Thromboplast Time 39.4 H Sodium Level 147 H Potassium Level 4.6 Chloride Level 107 Carbon Dioxide Level 26 Anion Gap 19 H Blood Urea Nitrogen 21 H Creatinine 1.24 H Glucose Level 143 Lactic Acid Level 4.7 *H Calcium Level 7.2 L Phosphorus Level 4.7 Magnesium Level 2.0 Total Bilirubin 1.2 Direct Bilirubin 0.80 #H Indirect Bilirubin 0.4 Aspartate Amino Transf (AST/SGOT) 195 H Alanine Aminotransferase (ALT/SGPT) 125 H Alkaline Phosphatase 49 B-Type Natriuretic Peptide 3560 H Total Protein 4.1 L Albumin 2.4 L Globulin 1.70 Albumin/Globulin Ratio 1.41 Lab Scanned Report BLOOD TRANSFUSION Medications Medications Current Medications Morphine Sulfate (morphine) 2 mg Q4H PRN IV PAIN Last administered on t 06:26; Admin Dose 2 MG; Start 09/15/16 at 23:30 Ondansetron HCl (Zofran Inj) 4 mg Q6H PRN IV NAUSEA AND/OR VOMITING Last administered on 09/20/16 21:11; Admin Dose 4 MG; Start 09/16/16 at 00:30 Acetaminophen (Tylenol Tab) 650 mg Q6H PRN PO PAIN LEVEL 1-3 OR FEVER Last administered on 09/17/16 10:06; Admin Dose 650 MG; Start 09/16/16 at 00:30 Polyethylene Glycol 17 gm 17 gm DAILY PO Last administered on 09/20/16 11:44; Admin Dose 17 GM; Start 09/20/16 at 11:00 Meropenem/Sodium Chloride 50 ml @ 200 mls/hr Q8 IVPB Last administered on 09/23 05:37; Admin Dose 200 MLS/HR; Start 09/20/16 at 22:00 Fluconazole/ Sodium Chloride 50 ml @ 50 mls/hr Q24H IVPB Last administered on 17:29; Admin Dose 50 MLS/HR; Start 09/20/16 at 16:30 Vancomycin HCl 100 ml @ 100 mls/hr Q12H IVPB Last administered on 09/23/16 06 :28; Admin Dose 100 MLS/HR; Start 09/21/16 at 06:00 Norepinephrine 16 mg/Dextrose 500 ml @ 1.87 mls/hr TITRATE IV Last administered on 09/22/16 04:08; Admin Dose 56.25 MLS/HR; Start 09/21/16 at 09: 00 Pantoprazole 80 mg/Sodium Chloride 100 ml @ 10 mls/hr Q10H IV Last administered on 09/23/16 02:16; Admin Dose 10 MLS/HR; Start 09/21/16 at 02:15 Propofol (Diprivan) 100 ml @ 1.671 mls/ hr Q12H IV Last administered on 03:57; Admin Dose 15.039 MLS/HR; Start 09/21/16 at 02:30 Acetaminophen/ Hydrocodone Bitart ([place] (5/325)) 1 tab Q4H PRN PO PAIN LEVEL 4 -7; Start 09/21/16 at 15:00 Acetaminophen/ Hydrocodone Bitart ([place] (5/325)) 2 tab Q4H PRN PO PAIN LEVEL 7 -10; Start 09/21/16 at 15:00 Hydromorphone HCl (Dilaudid) 0.5 mg Q2H PRN IV PAIN; Start 09/21/16 at 15:00 Hydromorphone HCl (Dilaudid) 1 mg Q2H PRN IV PAIN Last administered on 00:11; Admin Dose 1 MG; Start 09/21/16 at 15:00 Docusate Sodium (Colace) 100 mg BID PRN PO CONSTIPATION; Start 09/21/16 at 15: 00 Enoxaparin Sodium 40 mg 40 mg DAILY SC ; Start 09/22/16 at 09:00; Status Future Hold Sodium Chloride (1/2 NS) 1,000 ml @ 100 mls/hr Q10H IV Last administered on 03:57; Admin Dose 100 MLS/HR; Start 09/22/16 at 08:00 Docusate Sodium (Colace Liquid Cup) 100 mg BID NGT Last administered on 21:02; Admin Dose 100 MG; Start 09/22/16 at 21:00 YANETH VIDAL Sep 23, 2016 10:17
--- NOTE | 2016-09-23 10:33 | PN ---
Date/Time of Note Date/Time of Note DATE: 09/23/16 TIME: 10:25 Assessment/Plan VTE Prophylaxis VTE Prophylaxis Intervention: other Lines/Catheters IV Catheter Type (from Nrsg): A Line Urinary Cath still in place: Yes Reason Cath still needed: other (indicate) Assessment/Plan Chief Complaint/Hosp Course 1. Nonoliguric acute kidney injury. Etiology secondary ATN -Renal function slowly been improving with supportive care continue current treatment plan renally dose meds avoid nephrotoxins - 2. Hypernatremia Patient with free water deficit approximately 2-1/2 L continue hypotonic fluids 3. Anemia Monitor H&H levels 4. Mineral bone disorder Monitor calcium phosphorus levels 5. Lactic acidosis secondary to shock -Continue to monitor 6. Septic shock secondary very to perforated viscus -Continue antibiotic regimen, IV fluids, IV pressors 7. Perforated viscus status post colostomy Status post follow-up with surgery 8. Ventilator dependent respiratory failure events has been reviewed ABGs reviewed follow-up with pulmonary 9. Volume overload/anasarca -Patient on intermittent diuretic therapy monitor hemodynamics and blood pressure 10. History of intracranial hemorrhage in the past status post GENERAL ASSISTANT shunt placement that has been stable over time -GENERAL ASSISTANT shunt was externalized during the surgery September 21, 2016 due to abdominal infection, per neurosurgical notes may need to be reconnected once patient stable versus removed Problems: Subjective 24 Hr Interval Summary Free Text/Dictation Patient seen and examined Remains critically ill on pressor support Exam/Review of Systems Vital Signs Vitals Vital Signs Date Time Temp Pulse Resp B/P Pulse Ox O2 Delivery O2 Flow Rate FiO2 09/23/16 09:45 79 18 108/52 97 09/23/16 09:00 Mechanical Ventilator 09/23/16 08:00 98.7 09/23/16 08:00 70 Intake and Output 09/22/16 09/22/16 09/23/16 15:00 23:00 07:00 Intake Total 1276.762 ml 1395.391 ml 1040.227 ml Output Total 367 ml 588 ml 768 ml Balance 909.762 ml 807.391 ml 272.227 ml Exam HEENT: Normal cephalic atraumatic Neck: Supple with full range of motion. No rigidity or meningismus Lungs: Coarse breath sounds bilateral Heart: Sinus tachycardia Abdomen: Positive ostomy, positive wound VAC Extremities: Normal to inspection, no edema no cyanosis Neurologic: Limited exam Results Result Diagram: 09/23/16 0345 09/23/16 0345 Results 24 hrs Laboratory Tests Test 09/22/16 12:00 09/22/16 13:15 09/22/16 18:00 09/22/16 18:34 Blood Gas Specimen Source Blood arterial Blood arterial Arterial Blood Date Drawn 09/22/2016 12:12:30 PM 09/22/2016 5:57:02 PM Arterial Blood pH (Temp corrected) 7.460 H 7.515 H Arterial Blood pCO2 (Temp correct) 26.6 L 25.6 L Arterial Blood pO2 (Temp corrected) 81.4 80.5 Arterial Blood HCO3 18.5 L 20.2 L Arterial Blood Base Excess -4.6 L -2.1 Arterial Blood Oxygen Saturation 95.2 95.0 Cain Test N/A N/A Arterial Blood Gas Puncture Site A-Line A-Line Arterial Blood Carboxyhemoglobin 0.3 0.3 Arterial Blood Methemoglobin 0.6 0.5 Blood Gas A-a O2 Differential 317.1 H 319.1 H Oxyhemoglobin Percent 94.3 94.2 Total Hemoglobin 8.2 L 8.1 L Blood Gas Temperature 37.0 37.0 Blood Gas Respiration Rate 24.0 24.0 Blood Gas Actual Respiration Rate 24 24 Blood Gas Modality VENT - AC VENT - AC FiO2 60.0 60.0 Blood Gas Tidal Volume 500.0 500.0 Blood Gas Low PEEP Setting 5.0 5.0 Blood Gas Inspiratory Pressure 27.0 Blood Gas Notified Whom SABINO LIPSCOMB Blood Gas Notified Time 09/22/2016 12:24:18 PM 09/22/2016 6:05:40 PM White Blood Count 5.4 6.0 Red Blood Count 2.80 L 2.87 L Hemoglobin 7.4 L 7.3 L Hematocrit 22.0 L 22.5 L Mean Corpuscular Volume 78.6 L 78.4 L Mean Corpuscular Hemoglobin 26.4 L 25.4 L Mean Corpuscular Hemoglobin Concent 33.6 32.4 Red Cell Distribution Width 18.6 H 19.0 H Platelet Count 126 #L 54 #L Mean Platelet Volume Neutrophils % 79.2 H 80.0 H Lymphocytes % 10.5 L 17.0 Monocytes % 2.2 2.0 Eosinophils % 0.0 Basophils % 1.5 Nucleated Red Blood Cells % 0.7 H Neutrophils # 4.3 4.8 Lymphocytes # 0.6 L 1.0 Monocytes # 0.1 L 0.1 L Eosinophils # 0.0 Basophils # 0.1 Nucleated Red Blood Cells # 0.0 Sodium Level 147 H 147 H Potassium Level 5.0 4.9 Chloride Level 105 106 Carbon Dioxide Level 25 23 Anion Gap 22 H 23 H Blood Urea Nitrogen 18 18 Creatinine 1.14 H 1.18 H Glucose Level 172 167 Calcium Level 7.7 L 7.3 L Total Bilirubin 1.4 H 1.7 H Direct Bilirubin 0.90 #H 1.10 H Indirect Bilirubin 0.5 0.6 Aspartate Amino Transf (AST/SGOT) 551 H 378 H Alanine Aminotransferase (ALT/SGPT) 173 H 149 H Alkaline Phosphatase 38 L 41 L Total Protein 4.2 L 4.2 L Albumin 2.7 L 2.6 L Globulin 1.50 1.60 Albumin/Globulin Ratio 1.80 1.62 Band Neutrophils % 1.0 Prothrombin Time 38.9 H Prothrombin Time Ratio 3.0 INR International Normalized Ratio 3.90 Test 09/22/16 22:00 09/23/16 03:45 09/23/16 05:00 09/23/16 05:07 Blood Gas Specimen Source Blood arterial Blood arterial Arterial Blood Date Drawn 09/22/2016 9:50:09 PM 09/23/2016 5:13:03 AM Arterial Blood pH (Temp corrected) 7.495 H 7.463 H Arterial Blood pCO2 (Temp correct) 29.2 L 31.2 L Arterial Blood pO2 (Temp corrected) 63.0 L 84.2 Arterial Blood HCO3 22.0 21.8 L Arterial Blood Base Excess -0.9 -1.5 Arterial Blood Oxygen Saturation 91.5 L 94.7 L Cain Test N/A N/A Arterial Blood Gas Puncture Site A-Line A-Line Arterial Blood Carboxyhemoglobin 0.3 0.3 Arterial Blood Methemoglobin 0.6 0.7 Blood Gas A-a O2 Differential 332.7 H 381.4 H Oxyhemoglobin Percent 90.7 L 93.8 Total Hemoglobin 8.0 L 8.1 L Blood Gas Temperature 37.0 37.0 Blood Gas Respiration Rate 18.0 18.0 Blood Gas Actual Respiration Rate 88 18 Blood Gas Modality VENT - AC VENT - AC FiO2 60.0 70.0 Blood Gas Tidal Volume 500.0 500.0 Blood Gas Low PEEP Setting 5.0 5.0 Blood Gas Notified Whom MA MG Blood Gas Notified Time 09/22/2016 10:04:11 PM 09/23/2016 5:23:56 AM White Blood Count 6.0 Red Blood Count 2.99 L Hemoglobin 7.6 L Hematocrit 23.6 L Mean Corpuscular Volume 78.9 L Mean Corpuscular Hemoglobin 25.4 L Mean Corpuscular Hemoglobin Concent 32.2 Red Cell Distribution Width 19.5 H Platelet Count 40 #L Mean Platelet Volume Neutrophils % 77.9 H Lymphocytes % 10.8 L Monocytes % 4.2 Eosinophils % 0.0 Basophils % 1.2 Nucleated Red Blood Cells % 1.2 H Neutrophils # 4.6 Lymphocytes # 0.6 L Monocytes # 0.3 Eosinophils # 0.0 Basophils # 0.1 Nucleated Red Blood Cells # 0.1 H Prothrombin Time 29.3 #H Prothrombin Time Ratio 2.3 INR International Normalized Ratio 2.73 Activated Partial Thromboplast Time 39.4 H Sodium Level 147 H Potassium Level 4.6 Chloride Level 107 Carbon Dioxide Level 26 Anion Gap 19 H Blood Urea Nitrogen 21 H Creatinine 1.24 H Glucose Level 143 Lactic Acid Level 4.7 *H Calcium Level 7.2 L Phosphorus Level 4.7 Magnesium Level 2.0 Total Bilirubin 1.2 Direct Bilirubin 0.80 #H Indirect Bilirubin 0.4 Aspartate Amino Transf (AST/SGOT) 195 H Alanine Aminotransferase (ALT/SGPT) 125 H Alkaline Phosphatase 49 B-Type Natriuretic Peptide 3560 H Total Protein 4.1 L Albumin 2.4 L Globulin 1.70 Albumin/Globulin Ratio 1.41 Lab Scanned Report BLOOD TRANSFUSION Medications Medications Current Medications Morphine Sulfate (morphine) 2 mg Q4H PRN IV PAIN Last administered on 06:26; Admin Dose 2 MG; Start 09/15/16 at 23:30 Ondansetron HCl (Zofran Inj) 4 mg Q6H PRN IV NAUSEA AND/OR VOMITING Last administered on 09/20/16 21:11; Admin Dose 4 MG; Start 09/16/16 at 00:30 Acetaminophen (Tylenol Tab) 650 mg Q6H PRN PO PAIN LEVEL 1-3 OR FEVER Last administered on 09/17/16 10:06; Admin Dose 650 MG; Start 09/16/16 at 00:30 Polyethylene Glycol 17 gm 17 gm DAILY PO Last administered on 09/20/16 11:44; Admin Dose 17 GM; Start 09/20/16 at 11:00 Meropenem/Sodium Chloride 50 ml @ 200 mls/hr Q8 IVPB Last administered on 09/23 05:37; Admin Dose 200 MLS/HR; Start 09/20/16 at 22:00 Fluconazole/ Sodium Chloride 50 ml @ 50 mls/hr Q24H IVPB Last administered on 17:29; Admin Dose 50 MLS/HR; Start 09/20/16 at 16:30 Vancomycin HCl 100 ml @ 100 mls/hr Q12H IVPB Last administered on 09/23/16 06 :28; Admin Dose 100 MLS/HR; Start 09/21/16 at 06:00 Norepinephrine 16 mg/Dextrose 500 ml @ 1.87 mls/hr TITRATE IV Last administered on 09/22/16 04:08; Admin Dose 56.25 MLS/HR; Start 09/21/16 at 09: 00 Pantoprazole 80 mg/Sodium Chloride 100 ml @ 10 mls/hr Q10H IV Last administered on 09/23/16 02:16; Admin Dose 10 MLS/HR; Start 09/21/16 at 02:15 Propofol (Diprivan) 100 ml @ 1.671 mls/ hr Q12H IV Last administered on 03:57; Admin Dose 15.039 MLS/HR; Start 09/21/16 at 02:30 Acetaminophen/ Hydrocodone Bitart ([place] (5/325)) 1 tab Q4H PRN PO PAIN LEVEL 4 -7; Start 09/21/16 at 15:00 Acetaminophen/ Hydrocodone Bitart ([place] (5/325)) 2 tab Q4H PRN PO PAIN LEVEL 7 -10; Start 09/21/16 at 15:00 Hydromorphone HCl (Dilaudid) 0.5 mg Q2H PRN IV PAIN; Start 09/21/16 at 15:00 Hydromorphone HCl (Dilaudid) 1 mg Q2H PRN IV PAIN Last administered on 00:11; Admin Dose 1 MG; Start 09/21/16 at 15:00 Docusate Sodium (Colace) 100 mg BID PRN PO CONSTIPATION; Start 09/21/16 at 15: 00 Enoxaparin Sodium 40 mg 40 mg DAILY SC ; Start 09/22/16 at 09:00; Status Future Hold Sodium Chloride (1/2 NS) 1,000 ml @ 100 mls/hr Q10H IV Last administered on 03:57; Admin Dose 100 MLS/HR; Start 09/22/16 at 08:00 Docusate Sodium (Colace Liquid Cup) 100 mg BID NGT Last administered on 21:02; Admin Dose 100 MG; Start 09/22/16 at 21:00 KIRAN CASTILLO DO Sep 23, 2016 10:33
[2016-09-23 10:47] LABS: HEMOGLOBIN 6.9 g/dl (12.0-16.0)
--- NOTE | 2016-09-23 11:59 | CONS ---
Date/Time of Note Date/Time of Note DATE: 09/23/16 TIME: 11:58 Assessment/Plan Assessment/Plan Chief Complaint/Hosp Course No acute events overnight. Patient remains intubated, Levophed off since this morning. She looks comfortable Temperature 98.7 pulse 83 respirations 18 blood pressure 122/56 saturation 97 on vent WBC 6 H&H 7.6 and 23.6 platelets. Neutrophils 77.9 BN 21 creatinine 1.24 Indwelling: Endotracheal tube NG tube ventriculostomy, right subclavian triple- lumen catheter, Shore catheter, left lower quadrant pigtail Allergies: Penicillins Antibiotics: Vancomycin, fluconazole, meropenem Physical elimination: Well-developed well-nourished elderly woman who is intubated sedated, in no distress. Normocephalic sclera nonicteric. Bugle mucosa dry. Neck is supple, trachea midline. Chest rise symmetrical breath sounds diminished to bases. Heart: S1-S2. Abdomen distended, soft, bowel tones hypoactive. Extremities without cyanosis, with trace 1+ edema bilateral lower extremities. Skin: Pale with anasarca. Assessment: 1. Septic shock, off pressors 2. Perforated sigmoid colon status post colectomy with end colostomy and lysis of adhesions on September 21, 2016 3. Status post externalization of PHOTOGRAPHY PROFESSOR shunt on September 21, 2016 4. Acute renal failure 5. Transaminitis, improving 6. Acute respiratory failure requiring intubation 7. Healthcare associated pneumonia, possibly aspiration Plan: Hemodynamically stable, continue antibiotics, follow recommendations of consultants, follow repeat cultures Discussed with staff Problems: Consultation Date/Type/Reason Admit Date/Time Sep 15, 2016 at 21:35 Type of Consultation: ID Referring Provider: AUNDREA ARMENDARIZ Exam/Review of Systems Vital Signs Vitals Vital Signs Date Time Temp Pulse Resp B/P Pulse Ox O2 Delivery O2 Flow Rate FiO2 09/23/16 11:15 83 18 122/56 97 09/23/16 11:00 Mechanical Ventilator 09/23/16 08:00 98.7 09/23/16 08:00 70 Intake and Output 09/22/16 09/22/16 09/23/16 15:00 23:00 07:00 Intake Total 1276.762 ml 1395.391 ml 1040.227 ml Output Total 367 ml 588 ml 768 ml Balance 909.762 ml 807.391 ml 272.227 ml Results Result Diagram: 09/23/16 0345 09/23/16 0345 Results 24 hrs Laboratory Tests Test 09/22/16 12:00 09/22/16 13:15 09/22/16 18:00 09/22/16 18:34 Blood Gas Specimen Source Blood arterial Blood arterial Arterial Blood Date Drawn 09/22/2016 12:12:30 PM 09/22/2016 5:57:02 PM Arterial Blood pH (Temp corrected) 7.460 H 7.515 H Arterial Blood pCO2 (Temp correct) 26.6 L 25.6 L Arterial Blood pO2 (Temp corrected) 81.4 80.5 Arterial Blood HCO3 18.5 L 20.2 L Arterial Blood Base Excess -4.6 L -2.1 Arterial Blood Oxygen Saturation 95.2 95.0 Cain Test N/A N/A Arterial Blood Gas Puncture Site A-Line A-Line Arterial Blood Carboxyhemoglobin 0.3 0.3 Arterial Blood Methemoglobin 0.6 0.5 Blood Gas A-a O2 Differential 317.1 H 319.1 H Oxyhemoglobin Percent 94.3 94.2 Total Hemoglobin 8.2 L 8.1 L Blood Gas Temperature 37.0 37.0 Blood Gas Respiration Rate 24.0 24.0 Blood Gas Actual Respiration Rate 24 24 Blood Gas Modality VENT - AC VENT - AC FiO2 60.0 60.0 Blood Gas Tidal Volume 500.0 500.0 Blood Gas Low PEEP Setting 5.0 5.0 Blood Gas Inspiratory Pressure 27.0 Blood Gas Notified Whom SABINO LIPSCOMB Blood Gas Notified Time 09/22/2016 12:24:18 PM 09/22/2016 6:05:40 PM White Blood Count 5.4 6.0 Red Blood Count 2.80 L 2.87 L Hemoglobin 7.4 L 7.3 L Hematocrit 22.0 L 22.5 L Mean Corpuscular Volume 78.6 L 78.4 L Mean Corpuscular Hemoglobin 26.4 L 25.4 L Mean Corpuscular Hemoglobin Concent 33.6 32.4 Red Cell Distribution Width 18.6 H 19.0 H Platelet Count 126 #L 54 #L Mean Platelet Volume Neutrophils % 79.2 H 80.0 H Lymphocytes % 10.5 L 17.0 Monocytes % 2.2 2.0 Eosinophils % 0.0 Basophils % 1.5 Nucleated Red Blood Cells % 0.7 H Neutrophils # 4.3 4.8 Lymphocytes # 0.6 L 1.0 Monocytes # 0.1 L 0.1 L Eosinophils # 0.0 Basophils # 0.1 Nucleated Red Blood Cells # 0.0 Sodium Level 147 H 147 H Potassium Level 5.0 4.9 Chloride Level 105 106 Carbon Dioxide Level 25 23 Anion Gap 22 H 23 H Blood Urea Nitrogen 18 18 Creatinine 1.14 H 1.18 H Glucose Level 172 167 Calcium Level 7.7 L 7.3 L Total Bilirubin 1.4 H 1.7 H Direct Bilirubin 0.90 #H 1.10 H Indirect Bilirubin 0.5 0.6 Aspartate Amino Transf (AST/SGOT) 551 H 378 H Alanine Aminotransferase (ALT/SGPT) 173 H 149 H Alkaline Phosphatase 38 L 41 L Total Protein 4.2 L 4.2 L Albumin 2.7 L 2.6 L Globulin 1.50 1.60 Albumin/Globulin Ratio 1.80 1.62 Band Neutrophils % 1.0 Prothrombin Time 38.9 H Prothrombin Time Ratio 3.0 INR International Normalized Ratio 3.90 Test 09/22/16 22:00 09/23/16 03:45 09/23/16 05:00 09/23/16 05:07 Blood Gas Specimen Source Blood arterial Blood arterial Arterial Blood Date Drawn 09/22/2016 9:50:09 PM 09/23/2016 5:13:03 AM Arterial Blood pH (Temp corrected) 7.495 H 7.463 H Arterial Blood pCO2 (Temp correct) 29.2 L 31.2 L Arterial Blood pO2 (Temp corrected) 63.0 L 84.2 Arterial Blood HCO3 22.0 21.8 L Arterial Blood Base Excess -0.9 -1.5 Arterial Blood Oxygen Saturation 91.5 L 94.7 L Cain Test N/A N/A Arterial Blood Gas Puncture Site A-Line A-Line Arterial Blood Carboxyhemoglobin 0.3 0.3 Arterial Blood Methemoglobin 0.6 0.7 Blood Gas A-a O2 Differential 332.7 H 381.4 H Oxyhemoglobin Percent 90.7 L 93.8 Total Hemoglobin 8.0 L 8.1 L Blood Gas Temperature 37.0 37.0 Blood Gas Respiration Rate 18.0 18.0 Blood Gas Actual Respiration Rate 88 18 Blood Gas Modality VENT - AC VENT - AC FiO2 60.0 70.0 Blood Gas Tidal Volume 500.0 500.0 Blood Gas Low PEEP Setting 5.0 5.0 Blood Gas Notified Whom MA MG Blood Gas Notified Time 09/22/2016 10:04:11 PM 09/23/2016 5:23:56 AM White Blood Count 6.0 Red Blood Count 2.99 L Hemoglobin 7.6 L Hematocrit 23.6 L Mean Corpuscular Volume 78.9 L Mean Corpuscular Hemoglobin 25.4 L Mean Corpuscular Hemoglobin Concent 32.2 Red Cell Distribution Width 19.5 H Platelet Count 40 #L Mean Platelet Volume Neutrophils % 77.9 H Lymphocytes % 10.8 L Monocytes % 4.2 Eosinophils % 0.0 Basophils % 1.2 Nucleated Red Blood Cells % 1.2 H Neutrophils # 4.6 Lymphocytes # 0.6 L Monocytes # 0.3 Eosinophils # 0.0 Basophils # 0.1 Nucleated Red Blood Cells # 0.1 H Prothrombin Time 29.3 #H Prothrombin Time Ratio 2.3 INR International Normalized Ratio 2.73 Activated Partial Thromboplast Time 39.4 H Sodium Level 147 H Potassium Level 4.6 Chloride Level 107 Carbon Dioxide Level 26 Anion Gap 19 H Blood Urea Nitrogen 21 H Creatinine 1.24 H Glucose Level 143 Lactic Acid Level 4.7 *H Calcium Level 7.2 L Phosphorus Level 4.7 Magnesium Level 2.0 Total Bilirubin 1.2 Direct Bilirubin 0.80 #H Indirect Bilirubin 0.4 Aspartate Amino Transf (AST/SGOT) 195 H Alanine Aminotransferase (ALT/SGPT) 125 H Alkaline Phosphatase 49 B-Type Natriuretic Peptide 3560 H Total Protein 4.1 L Albumin 2.4 L Globulin 1.70 Albumin/Globulin Ratio 1.41 Lab Scanned Report BLOOD TRANSFUSION Medications Medications Current Medications Morphine Sulfate (morphine) 2 mg Q4H PRN IV PAIN Last administered on 06:26; Admin Dose 2 MG; Start 09/15/16 at 23:30 Ondansetron HCl (Zofran Inj) 4 mg Q6H PRN IV NAUSEA AND/OR VOMITING Last administered on 09/20/16 21:11; Admin Dose 4 MG; Start 09/16/16 at 00:30 Acetaminophen (Tylenol Tab) 650 mg Q6H PRN PO PAIN LEVEL 1-3 OR FEVER Last administered on 09/17/16 10:06; Admin Dose 650 MG; Start 09/16/16 at 00:30 Polyethylene Glycol 17 gm 17 gm DAILY PO Last administered on 09/20/16 11:44; Admin Dose 17 GM; Start 09/20/16 at 11:00 Meropenem/Sodium Chloride 50 ml @ 200 mls/hr Q8 IVPB Last administered on 09/23 05:37; Admin Dose 200 MLS/HR; Start 09/20/16 at 22:00 Fluconazole/ Sodium Chloride 50 ml @ 50 mls/hr Q24H IVPB Last administered on 17:29; Admin Dose 50 MLS/HR; Start 09/20/16 at 16:30 Vancomycin HCl 100 ml @ 100 mls/hr Q12H IVPB Last administered on 09/23/16 06 :28; Admin Dose 100 MLS/HR; Start 09/21/16 at 06:00 Norepinephrine 16 mg/Dextrose 500 ml @ 1.87 mls/hr TITRATE IV Last administered on 09/22/16 04:08; Admin Dose 56.25 MLS/HR; Start 09/21/16 at 09: 00 Pantoprazole 80 mg/Sodium Chloride 100 ml @ 10 mls/hr Q10H IV Last administered on 09/23/16 02:16; Admin Dose 10 MLS/HR; Start 09/21/16 at 02:15 Propofol (Diprivan) 100 ml @ 1.671 mls/ hr Q12H IV Last administered on 03:57; Admin Dose 15.039 MLS/HR; Start 09/21/16 at 02:30 Acetaminophen/ Hydrocodone Bitart ([place] (5/325)) 1 tab Q4H PRN PO PAIN LEVEL 4 -7; Start 09/21/16 at 15:00 Acetaminophen/ Hydrocodone Bitart ([place] (5/325)) 2 tab Q4H PRN PO PAIN LEVEL 7 -10; Start 09/21/16 at 15:00 Hydromorphone HCl (Dilaudid) 0.5 mg Q2H PRN IV PAIN; Start 09/21/16 at 15:00 Hydromorphone HCl (Dilaudid) 1 mg Q2H PRN IV PAIN Last administered on 00:11; Admin Dose 1 MG; Start 09/21/16 at 15:00 Docusate Sodium (Colace) 100 mg BID PRN PO CONSTIPATION; Start 09/21/16 at 15: 00 Enoxaparin Sodium 40 mg 40 mg DAILY SC ; Start 09/22/16 at 09:00; Status Future Hold Sodium Chloride (1/2 NS) 1,000 ml @ 100 mls/hr Q10H IV Last administered on 03:57; Admin Dose 100 MLS/HR; Start 09/22/16 at 08:00 Docusate Sodium (Colace Liquid Cup) 100 mg BID NGT Last administered on 21:02; Admin Dose 100 MG; Start 09/22/16 at 21:00 CORINA ESTRELLA NP Sep 23, 2016 11:58
--- NOTE | 2016-09-23 12:03 | PN ---
Date/Time of Note Date/Time of Note DATE: 09/23/16 TIME: 11:57 Assessment/Plan VTE Prophylaxis VTE Prophylaxis Intervention: SCD's Assessment/Plan Chief Complaint/Hosp Course 1. Severe sepsis with systemic shock and organ dysfunction 2/2 #2 2. 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 Lactic and Metabolic acidosis 2/2 above 4. Mild troponin elevation likely type 2 from #1: trending 5. Acute transaminitis 2/2 shock liver: improving 6. History of intracranial hemorrhage in the past status post COTTRELL OPERATOR shunt placement that has been stable over time * COTTRELL OPERATOR shunt was externalized during the surgery September 21, 2016 due to abdominal infection, per neurosurgical notes may need to be reconnected once patient stable versus removed 7. Hypernatremia likely secondary to #1: improved 8. Severe coagulopathy also as a result of #1: improving 9. Iron deficiency hypochromic anemia on iron infusion therapy 10. Diffuse anasarca as well as bilateral pleural effusions likely associated hypoalbuminemia 11. Bilateral pneumonia with vascular congestion concerning for BUD S 12. Acute renal insufficiency secondary to #1 PLAN: * Continue ICU care management * Continue ventilator monitoring and management /follow pulmonary recommendations * Resume tube feeds when stable and if okay with surgery * Continue broad-spectrum antibiotics per ID * Status post blood transfusion, serial labs, electrolytes replacement as indicated * Continue serial lactic acid trend * Patient's management remains dynamic depending on her clinical symptoms and lab findings, she continues require close monitoring, follow-ups and frequent reevaluation * Appreciate all consultants * Further interventions per clinical care Prophylaxis : SCDs / PPI Problems: Subjective 24 Hr Interval Summary Subjective hx not possible: pt non-verbal Exam/Review of Systems Vital Signs Vitals Vital Signs Date Time Temp Pulse Resp B/P Pulse Ox O2 Delivery O2 Flow Rate FiO2 09/23/16 11:15 83 18 122/56 97 09/23/16 11:00 Mechanical Ventilator 09/23/16 08:00 98.7 09/23/16 08:00 70 Intake and Output 09/22/16 09/22/16 09/23/16 15:00 23:00 07:00 Intake Total 1276.762 ml 1395.391 ml 1040.227 ml Output Total 367 ml 588 ml 768 ml Balance 909.762 ml 807.391 ml 272.227 ml Exam ENMT: intubated Respiratory: clear to auscultation Cardiovascular: regular rate and rhythm Gastrointestinal: soft, No distended Musculoskeletal: nl extremities to inspection Results Result Diagram: 09/23/16 0345 09/23/16 0345 Results 24 hrs Laboratory Tests Test 09/22/16 12:00 09/22/16 13:15 09/22/16 18:00 09/22/16 18:34 Blood Gas Specimen Source Blood arterial Blood arterial Arterial Blood Date Drawn 09/22/2016 12:12:30 PM 09/22/2016 5:57:02 PM Arterial Blood pH (Temp corrected) 7.460 H 7.515 H Arterial Blood pCO2 (Temp correct) 26.6 L 25.6 L Arterial Blood pO2 (Temp corrected) 81.4 80.5 Arterial Blood HCO3 18.5 L 20.2 L Arterial Blood Base Excess -4.6 L -2.1 Arterial Blood Oxygen Saturation 95.2 95.0 Cain Test N/A N/A Arterial Blood Gas Puncture Site A-Line A-Line Arterial Blood Carboxyhemoglobin 0.3 0.3 Arterial Blood Methemoglobin 0.6 0.5 Blood Gas A-a O2 Differential 317.1 H 319.1 H Oxyhemoglobin Percent 94.3 94.2 Total Hemoglobin 8.2 L 8.1 L Blood Gas Temperature 37.0 37.0 Blood Gas Respiration Rate 24.0 24.0 Blood Gas Actual Respiration Rate 24 24 Blood Gas Modality VENT - AC VENT - AC FiO2 60.0 60.0 Blood Gas Tidal Volume 500.0 500.0 Blood Gas Low PEEP Setting 5.0 5.0 Blood Gas Inspiratory Pressure 27.0 Blood Gas Notified Whom SABINO LIPSCOMB Blood Gas Notified Time 09/22/2016 12:24:18 PM 09/22/2016 6:05:40 PM White Blood Count 5.4 6.0 Red Blood Count 2.80 L 2.87 L Hemoglobin 7.4 L 7.3 L Hematocrit 22.0 L 22.5 L Mean Corpuscular Volume 78.6 L 78.4 L Mean Corpuscular Hemoglobin 26.4 L 25.4 L Mean Corpuscular Hemoglobin Concent 33.6 32.4 Red Cell Distribution Width 18.6 H 19.0 H Platelet Count 126 #L 54 #L Mean Platelet Volume Neutrophils % 79.2 H 80.0 H Lymphocytes % 10.5 L 17.0 Monocytes % 2.2 2.0 Eosinophils % 0.0 Basophils % 1.5 Nucleated Red Blood Cells % 0.7 H Neutrophils # 4.3 4.8 Lymphocytes # 0.6 L 1.0 Monocytes # 0.1 L 0.1 L Eosinophils # 0.0 Basophils # 0.1 Nucleated Red Blood Cells # 0.0 Sodium Level 147 H 147 H Potassium Level 5.0 4.9 Chloride Level 105 106 Carbon Dioxide Level 25 23 Anion Gap 22 H 23 H Blood Urea Nitrogen 18 18 Creatinine 1.14 H 1.18 H Glucose Level 172 167 Calcium Level 7.7 L 7.3 L Total Bilirubin 1.4 H 1.7 H Direct Bilirubin 0.90 #H 1.10 H Indirect Bilirubin 0.5 0.6 Aspartate Amino Transf (AST/SGOT) 551 H 378 H Alanine Aminotransferase (ALT/SGPT) 173 H 149 H Alkaline Phosphatase 38 L 41 L Total Protein 4.2 L 4.2 L Albumin 2.7 L 2.6 L Globulin 1.50 1.60 Albumin/Globulin Ratio 1.80 1.62 Band Neutrophils % 1.0 Prothrombin Time 38.9 H Prothrombin Time Ratio 3.0 INR International Normalized Ratio 3.90 Test 09/22/16 22:00 09/23/16 03:45 09/23/16 05:00 09/23/16 05:07 Blood Gas Specimen Source Blood arterial Blood arterial Arterial Blood Date Drawn 09/22/2016 9:50:09 PM 09/23/2016 5:13:03 AM Arterial Blood pH (Temp corrected) 7.495 H 7.463 H Arterial Blood pCO2 (Temp correct) 29.2 L 31.2 L Arterial Blood pO2 (Temp corrected) 63.0 L 84.2 Arterial Blood HCO3 22.0 21.8 L Arterial Blood Base Excess -0.9 -1.5 Arterial Blood Oxygen Saturation 91.5 L 94.7 L Cain Test N/A N/A Arterial Blood Gas Puncture Site A-Line A-Line Arterial Blood Carboxyhemoglobin 0.3 0.3 Arterial Blood Methemoglobin 0.6 0.7 Blood Gas A-a O2 Differential 332.7 H 381.4 H Oxyhemoglobin Percent 90.7 L 93.8 Total Hemoglobin 8.0 L 8.1 L Blood Gas Temperature 37.0 37.0 Blood Gas Respiration Rate 18.0 18.0 Blood Gas Actual Respiration Rate 88 18 Blood Gas Modality VENT - AC VENT - AC FiO2 60.0 70.0 Blood Gas Tidal Volume 500.0 500.0 Blood Gas Low PEEP Setting 5.0 5.0 Blood Gas Notified Whom MA MG Blood Gas Notified Time 09/22/2016 10:04:11 PM 09/23/2016 5:23:56 AM White Blood Count 6.0 Red Blood Count 2.99 L Hemoglobin 7.6 L Hematocrit 23.6 L Mean Corpuscular Volume 78.9 L Mean Corpuscular Hemoglobin 25.4 L Mean Corpuscular Hemoglobin Concent 32.2 Red Cell Distribution Width 19.5 H Platelet Count 40 #L Mean Platelet Volume Neutrophils % 77.9 H Lymphocytes % 10.8 L Monocytes % 4.2 Eosinophils % 0.0 Basophils % 1.2 Nucleated Red Blood Cells % 1.2 H Neutrophils # 4.6 Lymphocytes # 0.6 L Monocytes # 0.3 Eosinophils # 0.0 Basophils # 0.1 Nucleated Red Blood Cells # 0.1 H Prothrombin Time 29.3 #H Prothrombin Time Ratio 2.3 INR International Normalized Ratio 2.73 Activated Partial Thromboplast Time 39.4 H Sodium Level 147 H Potassium Level 4.6 Chloride Level 107 Carbon Dioxide Level 26 Anion Gap 19 H Blood Urea Nitrogen 21 H Creatinine 1.24 H Glucose Level 143 Lactic Acid Level 4.7 *H Calcium Level 7.2 L Phosphorus Level 4.7 Magnesium Level 2.0 Total Bilirubin 1.2 Direct Bilirubin 0.80 #H Indirect Bilirubin 0.4 Aspartate Amino Transf (AST/SGOT) 195 H Alanine Aminotransferase (ALT/SGPT) 125 H Alkaline Phosphatase 49 B-Type Natriuretic Peptide 3560 H Total Protein 4.1 L Albumin 2.4 L Globulin 1.70 Albumin/Globulin Ratio 1.41 Lab Scanned Report BLOOD TRANSFUSION Medications Medications Current Medications Morphine Sulfate (morphine) 2 mg Q4H PRN IV PAIN Last administered on t 06:26; Admin Dose 2 MG; Start 09/15/16 at 23:30 Ondansetron HCl (Zofran Inj) 4 mg Q6H PRN IV NAUSEA AND/OR VOMITING Last administered on 09/20/16 21:11; Admin Dose 4 MG; Start 09/16/16 at 00:30 Acetaminophen (Tylenol Tab) 650 mg Q6H PRN PO PAIN LEVEL 1-3 OR FEVER Last administered on 09/17/16 10:06; Admin Dose 650 MG; Start 09/16/16 at 00:30 Polyethylene Glycol 17 gm 17 gm DAILY PO Last administered on 09/20/16 11:44; Admin Dose 17 GM; Start 09/20/16 at 11:00 Meropenem/Sodium Chloride 50 ml @ 200 mls/hr Q8 IVPB Last administered on 09/23 05:37; Admin Dose 200 MLS/HR; Start 09/20/16 at 22:00 Fluconazole/ Sodium Chloride 50 ml @ 50 mls/hr Q24H IVPB Last administered on 17:29; Admin Dose 50 MLS/HR; Start 09/20/16 at 16:30 Vancomycin HCl 100 ml @ 100 mls/hr Q12H IVPB Last administered on 09/23/16 06 :28; Admin Dose 100 MLS/HR; Start 09/21/16 at 06:00 Norepinephrine 16 mg/Dextrose 500 ml @ 1.87 mls/hr TITRATE IV Last administered on 09/22/16 04:08; Admin Dose 56.25 MLS/HR; Start 09/21/16 at 09: 00 Pantoprazole 80 mg/Sodium Chloride 100 ml @ 10 mls/hr Q10H IV Last administered on 09/23/16 02:16; Admin Dose 10 MLS/HR; Start 09/21/16 at 02:15 Propofol (Diprivan) 100 ml @ 1.671 mls/ hr Q12H IV Last administered on 03:57; Admin Dose 15.039 MLS/HR; Start 09/21/16 at 02:30 Acetaminophen/ Hydrocodone Bitart ([place] (5/325)) 1 tab Q4H PRN PO PAIN LEVEL 4 -7; Start 09/21/16 at 15:00 Acetaminophen/ Hydrocodone Bitart ([place] (5/325)) 2 tab Q4H PRN PO PAIN LEVEL 7 -10; Start 09/21/16 at 15:00 Hydromorphone HCl (Dilaudid) 0.5 mg Q2H PRN IV PAIN; Start 09/21/16 at 15:00 Hydromorphone HCl (Dilaudid) 1 mg Q2H PRN IV PAIN Last administered on 00:11; Admin Dose 1 MG; Start 09/21/16 at 15:00 Docusate Sodium (Colace) 100 mg BID PRN PO CONSTIPATION; Start 09/21/16 at 15: 00 Enoxaparin Sodium 40 mg 40 mg DAILY SC ; Start 09/22/16 at 09:00; Status Future Hold Sodium Chloride (1/2 NS) 1,000 ml @ 100 mls/hr Q10H IV Last administered on 03:57; Admin Dose 100 MLS/HR; Start 09/22/16 at 08:00 Docusate Sodium (Colace Liquid Cup) 100 mg BID NGT Last administered on 21:02; Admin Dose 100 MG; Start 09/22/16 at 21:00 DALE RODARTE Sep 23, 2016 12:03
[2016-09-23 12:08] LABS: AADO2 Arterial 371.9 mmHg (7.0-24.0); Arterial Base Excess 0.5 mmol/L (-3.0-3); Arterial COHb 0.3 % (0.0-3.0); Arterial Fraction of Oxyhgb 94.5 % (93.0-99.0); Arterial HCO3 24.1 mmol/L (22.0-26.0); Arterial MetHb 0.5 % (0.0-1.5); Arterial Total Hemglobin 8.3 g/dl (12.0-18.0); MODE VENT - AC
--- NOTE | 2016-09-23 12:52 | CONS ---
Date/Time of Note Date/Time of Note DATE: 09/23/16 TIME: 12:51 Consult Date/Type/Reason Admit Date/Time Sep 15, 2016 at 21:35 Initial Consult Date 09/21/16 Type of Consultation: Pulmonary ICU Ordering Provider: AUNDREA ARMENDARIZ Subjective Intubated on mechanical ventilation appears comfortable at rest no acute distress Objective Vital Signs Date Time Temp Pulse Resp B/P Pulse Ox O2 Delivery O2 Flow Rate FiO2 09/23/16 11:15 83 18 122/56 97 09/23/16 11:00 Mechanical Ventilator 09/23/16 08:00 98.7 09/23/16 08:00 70 Intake and Output 09/22/16 09/22/16 09/23/16 14:59 22:59 06:59 Intake Total 1102.379 ml 1430.378 ml 1050.623 ml Output Total 365 ml 588 ml 763 ml Balance 737.379 ml 842.378 ml 287.623 ml Exam GENERAL: Intubated sedated on mechanical ventilation opens eyes to questions. VITAL SIGNS: per chart NECK: Supple. No JVD or lymphadenopathy. CARDIAC EXAM: S1, S2. No added sounds or murmurs. CHEST: clear bilaterally, No added sounds, rales or wheezes ABDOMEN: Diminished air entry bilaterally no rales wheezes EXTREMITIES: No cyanosis, clubbing or edema. NEUROLOGIC: Generalized weakness. No focal deficits. Results/Medications Result Diagram: 09/23/16 0345 09/23/16 0345 Results 24 hrs Laboratory Tests Test 09/22/16 13:15 09/22/16 18:00 09/22/16 18:34 09/22/16 22:00 White Blood Count 5.4 6.0 Red Blood Count 2.80 L 2.87 L Hemoglobin 7.4 L 7.3 L Hematocrit 22.0 L 22.5 L Mean Corpuscular Volume 78.6 L 78.4 L Mean Corpuscular Hemoglobin 26.4 L 25.4 L Mean Corpuscular Hemoglobin Concent 33.6 32.4 Red Cell Distribution Width 18.6 H 19.0 H Platelet Count 126 #L 54 #L Mean Platelet Volume Neutrophils % 79.2 H 80.0 H Lymphocytes % 10.5 L 17.0 Monocytes % 2.2 2.0 Eosinophils % 0.0 Basophils % 1.5 Nucleated Red Blood Cells % 0.7 H Neutrophils # 4.3 4.8 Lymphocytes # 0.6 L 1.0 Monocytes # 0.1 L 0.1 L Eosinophils # 0.0 Basophils # 0.1 Nucleated Red Blood Cells # 0.0 Sodium Level 147 H 147 H Potassium Level 5.0 4.9 Chloride Level 105 106 Carbon Dioxide Level 25 23 Anion Gap 22 H 23 H Blood Urea Nitrogen 18 18 Creatinine 1.14 H 1.18 H Glucose Level 172 167 Calcium Level 7.7 L 7.3 L Total Bilirubin 1.4 H 1.7 H Direct Bilirubin 0.90 #H 1.10 H Indirect Bilirubin 0.5 0.6 Aspartate Amino Transf (AST/SGOT) 551 H 378 H Alanine Aminotransferase (ALT/SGPT) 173 H 149 H Alkaline Phosphatase 38 L 41 L Total Protein 4.2 L 4.2 L Albumin 2.7 L 2.6 L Globulin 1.50 1.60 Albumin/Globulin Ratio 1.80 1.62 Blood Gas Specimen Source Blood arterial Blood arterial Arterial Blood Date Drawn 09/22/2016 5:57:02 PM 09/22/2016 9:50:09 PM Arterial Blood pH (Temp corrected) 7.515 H 7.495 H Arterial Blood pCO2 (Temp correct) 25.6 L 29.2 L Arterial Blood pO2 (Temp corrected) 80.5 63.0 L Arterial Blood HCO3 20.2 L 22.0 Arterial Blood Base Excess -2.1 -0.9 Arterial Blood Oxygen Saturation 95.0 91.5 L Cain Test N/A N/A Arterial Blood Gas Puncture Site A-Line A-Line Arterial Blood Carboxyhemoglobin 0.3 0.3 Arterial Blood Methemoglobin 0.5 0.6 Blood Gas A-a O2 Differential 319.1 H 332.7 H Oxyhemoglobin Percent 94.2 90.7 L Total Hemoglobin 8.1 L 8.0 L Blood Gas Temperature 37.0 37.0 Blood Gas Respiration Rate 24.0 18.0 Blood Gas Actual Respiration Rate 24 88 Blood Gas Modality VENT - AC VENT - AC FiO2 60.0 60.0 Blood Gas Tidal Volume 500.0 500.0 Blood Gas Low PEEP Setting 5.0 5.0 Blood Gas Notified Whom SABINO MATHIAS MA Blood Gas Notified Time 09/22/2016 6:05:40 PM 09/22/2016 10:04:11 PM Band Neutrophils % 1.0 Prothrombin Time 38.9 H Prothrombin Time Ratio 3.0 INR International Normalized Ratio 3.90 Test 09/23/16 03:45 09/23/16 05:00 09/23/16 05:07 09/23/16 12:00 White Blood Count 6.0 Red Blood Count 2.99 L Hemoglobin 7.6 L Hematocrit 23.6 L Mean Corpuscular Volume 78.9 L Mean Corpuscular Hemoglobin 25.4 L Mean Corpuscular Hemoglobin Concent 32.2 Red Cell Distribution Width 19.5 H Platelet Count 40 #L Mean Platelet Volume Neutrophils % 77.9 H Lymphocytes % 10.8 L Monocytes % 4.2 Eosinophils % 0.0 Basophils % 1.2 Nucleated Red Blood Cells % 1.2 H Neutrophils # 4.6 Lymphocytes # 0.6 L Monocytes # 0.3 Eosinophils # 0.0 Basophils # 0.1 Nucleated Red Blood Cells # 0.1 H Prothrombin Time 29.3 #H Prothrombin Time Ratio 2.3 INR International Normalized Ratio 2.73 Activated Partial Thromboplast Time 39.4 H Sodium Level 147 H Potassium Level 4.6 Chloride Level 107 Carbon Dioxide Level 26 Anion Gap 19 H Blood Urea Nitrogen 21 H Creatinine 1.24 H Glucose Level 143 Lactic Acid Level 4.7 *H Calcium Level 7.2 L Phosphorus Level 4.7 Magnesium Level 2.0 Total Bilirubin 1.2 Direct Bilirubin 0.80 #H Indirect Bilirubin 0.4 Aspartate Amino Transf (AST/SGOT) 195 H Alanine Aminotransferase (ALT/SGPT) 125 H Alkaline Phosphatase 49 B-Type Natriuretic Peptide 3560 H Total Protein 4.1 L Albumin 2.4 L Globulin 1.70 Albumin/Globulin Ratio 1.41 Blood Gas Specimen Source Blood arterial Blood arterial Arterial Blood Date Drawn 09/23/2016 5:13:03 AM 09/23/2016 11:56:47 AM Arterial Blood pH (Temp corrected) 7.463 H 7.462 H Arterial Blood pCO2 (Temp correct) 31.2 L 34.5 L Arterial Blood pO2 (Temp corrected) 84.2 90.1 H Arterial Blood HCO3 21.8 L 24.1 Arterial Blood Base Excess -1.5 0.5 Arterial Blood Oxygen Saturation 94.7 L 95.3 Cain Test N/A N/A Arterial Blood Gas Puncture Site A-Line A-Line Arterial Blood Carboxyhemoglobin 0.3 0.3 Arterial Blood Methemoglobin 0.7 0.5 Blood Gas A-a O2 Differential 381.4 H 371.9 H Oxyhemoglobin Percent 93.8 94.5 Total Hemoglobin 8.1 L 8.3 L Blood Gas Temperature 37.0 37.0 Blood Gas Respiration Rate 18.0 18.0 Blood Gas Actual Respiration Rate 18 18 Blood Gas Modality VENT - AC VENT - AC FiO2 70.0 70.0 Blood Gas Tidal Volume 500.0 500.0 Blood Gas Low PEEP Setting 5.0 5.0 Blood Gas Notified Whom MG RH Blood Gas Notified Time 09/23/2016 5:23:56 AM 09/23/2016 12:08:06 PM Lab Scanned Report BLOOD TRANSFUSION Medications Current Medications Morphine Sulfate (morphine) 2 mg Q4H PRN IV PAIN Last administered on 06:26; Admin Dose 2 MG; Start 09/15/16 at 23:30 Ondansetron HCl (Zofran Inj) 4 mg Q6H PRN IV NAUSEA AND/OR VOMITING Last administered on 09/20/16 21:11; Admin Dose 4 MG; Start 09/16/16 at 00:30 Acetaminophen (Tylenol Tab) 650 mg Q6H PRN PO PAIN LEVEL 1-3 OR FEVER Last administered on 09/17/16 10:06; Admin Dose 650 MG; Start 09/16/16 at 00:30 Polyethylene Glycol 17 gm 17 gm DAILY PO Last administered on 09/20/16 11:44; Admin Dose 17 GM; Start 09/20/16 at 11:00 Meropenem/Sodium Chloride 50 ml @ 200 mls/hr Q8 IVPB Last administered on 09/23 05:37; Admin Dose 200 MLS/HR; Start 09/20/16 at 22:00 Fluconazole/ Sodium Chloride 50 ml @ 50 mls/hr Q24H IVPB Last administered on 17:29; Admin Dose 50 MLS/HR; Start 09/20/16 at 16:30 Vancomycin HCl 100 ml @ 100 mls/hr Q12H IVPB Last administered on 09/23/16 06 :28; Admin Dose 100 MLS/HR; Start 09/21/16 at 06:00 Norepinephrine 16 mg/Dextrose 500 ml @ 1.87 mls/hr TITRATE IV Last administered on 09/22/16 04:08; Admin Dose 56.25 MLS/HR; Start 09/21/16 at 09: 00 Pantoprazole 80 mg/Sodium Chloride 100 ml @ 10 mls/hr Q10H IV Last administered on 09/23/16 02:16; Admin Dose 10 MLS/HR; Start 09/21/16 at 02:15 Propofol (Diprivan) 100 ml @ 1.671 mls/ hr Q12H IV Last administered on 12:22; Admin Dose 3.342 MLS/HR; Start 09/21/16 at 02:30 Acetaminophen/ Hydrocodone Bitart ([place] (5/325)) 1 tab Q4H PRN PO PAIN LEVEL 4 -7; Start 09/21/16 at 15:00 Acetaminophen/ Hydrocodone Bitart ([place] (5/325)) 2 tab Q4H PRN PO PAIN LEVEL 7 -10; Start 09/21/16 at 15:00 Hydromorphone HCl (Dilaudid) 0.5 mg Q2H PRN IV PAIN; Start 09/21/16 at 15:00 Hydromorphone HCl (Dilaudid) 1 mg Q2H PRN IV PAIN Last administered on 00:11; Admin Dose 1 MG; Start 09/21/16 at 15:00 Docusate Sodium (Colace) 100 mg BID PRN PO CONSTIPATION; Start 09/21/16 at 15: 00 Enoxaparin Sodium (Lovenox) 40 mg DAILY SC ; Start 09/22/16 at 09:00; Status Future Hold Docusate Sodium (Colace Liquid Cup) 100 mg BID NGT Last administered on 21:02; Admin Dose 100 MG; Start 09/22/16 at 21:00 Assessment/Plan Chief Complaint/Hosp Course Assessment 1. Severe sepsis and hypoxemic respiratory failure. Differential includes healthcare associated pneumonia versus aspiration pneumonia. Evidence of pleural effusions also. FiO2 at 70%. Will decrease as tolerated. 2. Possible infected FUR [employer]UCK[employer] shunt. Status post externalization 3. Abdominal abscesses possible peritonitis. Exploratory laparotomy today 4. Severe sepsis with metabolic acidosis secondary to above 5. Postop anemia, hemoglobin 6.9. No evidence of active bleeding at present. 6. Electrolyte abnormalities hyperkalemia and hypernatremia Plan 1. Continue mechanical ventilation, will require thoracentesis when more stable pleural fluid studies. Not stable for weaning from ventilator today. 2.' neurosurgery and general surgery recommendations 3. Continue broad-spectrum antibiotics 4. Trend lactic acid, aggressive fluid resuscitation. Transfusion of packed red blood cells per general surgery. 5. DVT and GI prophylaxis 6. Renal recommendations regarding electrolyte abnormalities, agree with gentle diuresis. Discussed with staff Critical care time 40 minutes. Problems: DAMIEN GUADARRAMA MD, [facility] Sep 23, 2016 12:52
[2016-09-23] MEDS: FUROSEMIDE 20 MG INJ IV SCH ×2 (13:06→18:13)
--- NOTE | 2016-09-23 13:17 | CONS ---
Date/Time of Note Date/Time of Note DATE: 09/23/16 TIME: 13:14 Assessment/Plan Assessment/Plan Chief Complaint/Hosp Course Acute diastolic heart failure: Secondary to volume resuscitation in setting of low albumin and third spacing. CXR worse now and with significant anasarca Septic shock: from intraabdominal abscess and possible infected [employer] shunt. S/p sigmoid colectomy. Now off levophed and lactate improving Acute respiratory failure: Due to septic shock, severe metabolic acidosis as well as pulm edema NSTEMI: Trop mildly elevated likely type II in the setting of septic shock. Echo from 09/18 showed normal EF and no significant valvular disease. Repeat trop normalized Diverticulitis complicated by abscess s/p sigmoid colectomy Coagulopathy: ?DIC h/o ICH with [employer] shunt -stop fluids -start lasix 20mg IV BID for slow diuresis -no ASA with anemia, coagulopathy and low suspicion for CAD Problems: Consultation Date/Type/Reason Admit Date/Time Sep 15, 2016 at 21:35 Initial Consult Date 09/21/16 Type of Consultation: Cardiology Referring Provider: AUNDREA ARMENDARIZ 24 HR Interval Summary Free Text/Dictation Off pressors. Waking up. Significant anasarca and pulm edema on CXR still. Consistently net positive balance. Exam/Review of Systems Vital Signs Vitals Vital Signs Date Time Temp Pulse Resp B/P Pulse Ox O2 Delivery O2 Flow Rate FiO2 09/23/16 11:15 83 18 122/56 97 09/23/16 11:00 Mechanical Ventilator 09/23/16 08:00 98.7 09/23/16 08:00 70 Intake and Output 09/22/16 09/22/16 09/23/16 15:00 23:00 07:00 Intake Total 1276.762 ml 1395.391 ml 1040.227 ml Output Total 367 ml 588 ml 768 ml Balance 909.762 ml 807.391 ml 272.227 ml Exam Constitutional: No alert (somnolent ) Head: atraumatic, normocephalic Neck: jvd (9cm), supple Respiratory: crackles/rales, diminished breath sounds, No clear to auscultation Cardiovascular: edema (3+ anasarca ), regular rate and rhythm, No systolic murmur Gastrointestinal: soft, No distended Neurological: No nl mental status Results Result Diagram: 09/23/16 0345 09/23/16 0345 Results 24 hrs Laboratory Tests Test 09/22/16 13:15 09/22/16 18:00 09/22/16 18:34 09/22/16 22:00 White Blood Count 5.4 6.0 Red Blood Count 2.80 L 2.87 L Hemoglobin 7.4 L 7.3 L Hematocrit 22.0 L 22.5 L Mean Corpuscular Volume 78.6 L 78.4 L Mean Corpuscular Hemoglobin 26.4 L 25.4 L Mean Corpuscular Hemoglobin Concent 33.6 32.4 Red Cell Distribution Width 18.6 H 19.0 H Platelet Count 126 #L 54 #L Mean Platelet Volume Neutrophils % 79.2 H 80.0 H Lymphocytes % 10.5 L 17.0 Monocytes % 2.2 2.0 Eosinophils % 0.0 Basophils % 1.5 Nucleated Red Blood Cells % 0.7 H Neutrophils # 4.3 4.8 Lymphocytes # 0.6 L 1.0 Monocytes # 0.1 L 0.1 L Eosinophils # 0.0 Basophils # 0.1 Nucleated Red Blood Cells # 0.0 Sodium Level 147 H 147 H Potassium Level 5.0 4.9 Chloride Level 105 106 Carbon Dioxide Level 25 23 Anion Gap 22 H 23 H Blood Urea Nitrogen 18 18 Creatinine 1.14 H 1.18 H Glucose Level 172 167 Calcium Level 7.7 L 7.3 L Total Bilirubin 1.4 H 1.7 H Direct Bilirubin 0.90 #H 1.10 H Indirect Bilirubin 0.5 0.6 Aspartate Amino Transf (AST/SGOT) 551 H 378 H Alanine Aminotransferase (ALT/SGPT) 173 H 149 H Alkaline Phosphatase 38 L 41 L Total Protein 4.2 L 4.2 L Albumin 2.7 L 2.6 L Globulin 1.50 1.60 Albumin/Globulin Ratio 1.80 1.62 Blood Gas Specimen Source Blood arterial Blood arterial Arterial Blood Date Drawn 09/22/2016 5:57:02 PM 09/22/2016 9:50:09 PM Arterial Blood pH (Temp corrected) 7.515 H 7.495 H Arterial Blood pCO2 (Temp correct) 25.6 L 29.2 L Arterial Blood pO2 (Temp corrected) 80.5 63.0 L Arterial Blood HCO3 20.2 L 22.0 Arterial Blood Base Excess -2.1 -0.9 Arterial Blood Oxygen Saturation 95.0 91.5 L Cain Test N/A N/A Arterial Blood Gas Puncture Site A-Line A-Line Arterial Blood Carboxyhemoglobin 0.3 0.3 Arterial Blood Methemoglobin 0.5 0.6 Blood Gas A-a O2 Differential 319.1 H 332.7 H Oxyhemoglobin Percent 94.2 90.7 L Total Hemoglobin 8.1 L 8.0 L Blood Gas Temperature 37.0 37.0 Blood Gas Respiration Rate 24.0 18.0 Blood Gas Actual Respiration Rate 24 88 Blood Gas Modality VENT - AC VENT - AC FiO2 60.0 60.0 Blood Gas Tidal Volume 500.0 500.0 Blood Gas Low PEEP Setting 5.0 5.0 Blood Gas Notified Whom SABINO MATHIAS MA Blood Gas Notified Time 09/22/2016 6:05:40 PM 09/22/2016 10:04:11 PM Band Neutrophils % 1.0 Prothrombin Time 38.9 H Prothrombin Time Ratio 3.0 INR International Normalized Ratio 3.90 Test 09/23/16 03:45 09/23/16 05:00 09/23/16 05:07 09/23/16 12:00 White Blood Count 6.0 Red Blood Count 2.99 L Hemoglobin 7.6 L Hematocrit 23.6 L Mean Corpuscular Volume 78.9 L Mean Corpuscular Hemoglobin 25.4 L Mean Corpuscular Hemoglobin Concent 32.2 Red Cell Distribution Width 19.5 H Platelet Count 40 #L Mean Platelet Volume Neutrophils % 77.9 H Lymphocytes % 10.8 L Monocytes % 4.2 Eosinophils % 0.0 Basophils % 1.2 Nucleated Red Blood Cells % 1.2 H Neutrophils # 4.6 Lymphocytes # 0.6 L Monocytes # 0.3 Eosinophils # 0.0 Basophils # 0.1 Nucleated Red Blood Cells # 0.1 H Prothrombin Time 29.3 #H Prothrombin Time Ratio 2.3 INR International Normalized Ratio 2.73 Activated Partial Thromboplast Time 39.4 H Sodium Level 147 H Potassium Level 4.6 Chloride Level 107 Carbon Dioxide Level 26 Anion Gap 19 H Blood Urea Nitrogen 21 H Creatinine 1.24 H Glucose Level 143 Lactic Acid Level 4.7 *H Calcium Level 7.2 L Phosphorus Level 4.7 Magnesium Level 2.0 Total Bilirubin 1.2 Direct Bilirubin 0.80 #H Indirect Bilirubin 0.4 Aspartate Amino Transf (AST/SGOT) 195 H Alanine Aminotransferase (ALT/SGPT) 125 H Alkaline Phosphatase 49 B-Type Natriuretic Peptide 3560 H Total Protein 4.1 L Albumin 2.4 L Globulin 1.70 Albumin/Globulin Ratio 1.41 Blood Gas Specimen Source Blood arterial Blood arterial Arterial Blood Date Drawn 09/23/2016 5:13:03 AM 09/23/2016 11:56:47 AM Arterial Blood pH (Temp corrected) 7.463 H 7.462 H Arterial Blood pCO2 (Temp correct) 31.2 L 34.5 L Arterial Blood pO2 (Temp corrected) 84.2 90.1 H Arterial Blood HCO3 21.8 L 24.1 Arterial Blood Base Excess -1.5 0.5 Arterial Blood Oxygen Saturation 94.7 L 95.3 Cain Test N/A N/A Arterial Blood Gas Puncture Site A-Line A-Line Arterial Blood Carboxyhemoglobin 0.3 0.3 Arterial Blood Methemoglobin 0.7 0.5 Blood Gas A-a O2 Differential 381.4 H 371.9 H Oxyhemoglobin Percent 93.8 94.5 Total Hemoglobin 8.1 L 8.3 L Blood Gas Temperature 37.0 37.0 Blood Gas Respiration Rate 18.0 18.0 Blood Gas Actual Respiration Rate 18 18 Blood Gas Modality VENT - AC VENT - AC FiO2 70.0 70.0 Blood Gas Tidal Volume 500.0 500.0 Blood Gas Low PEEP Setting 5.0 5.0 Blood Gas Notified Whom MG RH Blood Gas Notified Time 09/23/2016 5:23:56 AM 09/23/2016 12:08:06 PM Lab Scanned Report BLOOD TRANSFUSION Medications Medications Current Medications Morphine Sulfate (morphine) 2 mg Q4H PRN IV PAIN Last administered on 06:26; Admin Dose 2 MG; Start 09/15/16 at 23:30 Ondansetron HCl (Zofran Inj) 4 mg Q6H PRN IV NAUSEA AND/OR VOMITING Last administered on 09/20/16 21:11; Admin Dose 4 MG; Start 09/16/16 at 00:30 Acetaminophen (Tylenol Tab) 650 mg Q6H PRN PO PAIN LEVEL 1-3 OR FEVER Last administered on 09/17/16 10:06; Admin Dose 650 MG; Start 09/16/16 at 00:30 Polyethylene Glycol 17 gm 17 gm DAILY PO Last administered on 09/20/16 11:44; Admin Dose 17 GM; Start 09/20/16 at 11:00 Meropenem/Sodium Chloride 50 ml @ 200 mls/hr Q8 IVPB Last administered on 09/23 05:37; Admin Dose 200 MLS/HR; Start 09/20/16 at 22:00 Fluconazole/ Sodium Chloride 50 ml @ 50 mls/hr Q24H IVPB Last administered on 17:29; Admin Dose 50 MLS/HR; Start 09/20/16 at 16:30 Vancomycin HCl 100 ml @ 100 mls/hr Q12H IVPB Last administered on 09/23/16 06 :28; Admin Dose 100 MLS/HR; Start 09/21/16 at 06:00 Norepinephrine 16 mg/Dextrose 500 ml @ 1.87 mls/hr TITRATE IV Last administered on 09/22/16 04:08; Admin Dose 56.25 MLS/HR; Start 09/21/16 at 09: 00 Pantoprazole 80 mg/Sodium Chloride 100 ml @ 10 mls/hr Q10H IV Last administered on 09/23/16 13:05; Admin Dose 10 MLS/HR; Start 09/21/16 at 02:15 Propofol (Diprivan) 100 ml @ 1.671 mls/ hr Q12H IV Last administered on 12:22; Admin Dose 3.342 MLS/HR; Start 09/21/16 at 02:30 Acetaminophen/ Hydrocodone Bitart ([place] (5/325)) 1 tab Q4H PRN PO PAIN LEVEL 4 -7; Start 09/21/16 at 15:00 Acetaminophen/ Hydrocodone Bitart ([place] (5/325)) 2 tab Q4H PRN PO PAIN LEVEL 7 -10; Start 09/21/16 at 15:00 Hydromorphone HCl (Dilaudid) 0.5 mg Q2H PRN IV PAIN; Start 09/21/16 at 15:00 Hydromorphone HCl (Dilaudid) 1 mg Q2H PRN IV PAIN Last administered on 00:11; Admin Dose 1 MG; Start 09/21/16 at 15:00 Docusate Sodium (Colace) 100 mg BID PRN PO CONSTIPATION; Start 09/21/16 at 15: 00 Enoxaparin Sodium (Lovenox) 40 mg DAILY SC ; Start 09/22/16 at 09:00; Status Future Hold Docusate Sodium (Colace Liquid Cup) 100 mg BID NGT Last administered on t 21:02; Admin Dose 100 MG; Start 09/22/16 at 21:00 GUSTAVO RAMON Sep 23, 2016 13:17
--- NOTE | 2016-09-23 16:17 | PN ---
Date/Time of Note Date/Time of Note DATE: 09/23/16 TIME: 16:10 Assessment/Plan Assessment/Plan Assessment/Plan [facility] Progress Note Date of Service: 09/23/2016 Place of service: [facility] ICU Today's Assessment & Plan: Overall remains critically ill with guarded condition, but improving on several fronts including neurologically, cardiopulmonary, GI and hepatic and other fronts. On less pressors. Will benefit from washout and hopefully, ability to reconnect the colon from below and re-do the ostomy in the form of a diverting ileostomy. This way, we may be able to allow her to heal and plan on ostomy takedown within a few weeks, which would be a much easier operation to do. Would obviously have to be done when patient is much improved, and after full colonoscopic eval and checking for leak/lesions. D/w patient's and answered all questions. Also d/w tea. Arranged for the OR for tomorrow. No indication for acute surgical intervention today. With above assessment, I recommended the following for today: 1. Continue aggressive medical management with the goal of weaning patient off of pressors and off the vent when possible 2. D/c bladder pressures checks 3. Continue wound VAC at 80 mmHg 4. Cont gentle diuresis 5. Cont gastric trophic feeds at 10 cc/h 6. Labs in am 7. Hold Lovenox until her platelet count is over 100 and her INR is less than 2 8. To the operating room on Friday for abdominal washout, possible attempt at connecting the patient's colon and performance of a diverting loop ileostomy Thank you again for your great care of this very pleasant patient and wonderful family. If there are any questions, please feel free to call me at [phone]. Nature of presenting problem: High severity Please note that, given the extensive number of diagnoses or management options , the extensive amount and/or complexity of data needed to be reviewed, and I risk of complications and/or morbidity or mortality, this qualifies as high complexity type of decision-making. Disclaimer: Inadvertent spelling and grammatical errors are likely due to EHR/ dictation software use and do not reflect on the quality of delivered patient care. Also, please note that the electronic time recorded on this node does not necessarily reflect the actual time of the visit. Updated Clinical Summary: A very pleasant 70-year-old lady without significant known past medical history other than a [employer]CH[employer] shunt placement many years ago which she did not remember or report, presenting with what appears to be a sigmoid colon abscess or pericolonic abscess, which seemed to be a complication of diverticulitis. S/p IR drainage 09/09/16 with removal of 20 cc pus and placement of a 10 Fr. pigtail catheter at [facility]. D/c home 09/12/16. Re-presented to [facility] 09/15/16 after being diverted from [facility] (due to internal disaster diversion) where CT was done showing adequate placement of the percutaneous drain near the sigmoid colon and decompressed sigmoid colon abscess, no obvious free air or significant spillage of stool in the abdominal cavity, and incidental finding of tail of the [employer] shunt in the pelvis (new from right upper quadrant position of the same drain on the CT scan at [facility]). Transfer to [facility] 09/15/2016 for further cares. S/p upsizing of drain to 12 Fr pigtail on 09/17/16 (communication with colon demonstrated; no obvious free communication to rest of peritoneal space). Patient decompensated in the early hours of the morning on 09/21/2016 and had to be transferred to the intensive care unit with need for endotracheal tube intubation, central line placement, and resuscitation for treatment of shock with lactic acidosis and evidence of peritonitis and free air on the new chest, abdomen, and pelvis CT scan. Comorbidities: 1. Perforated sigmoid colon 2. Status post ventriculoperitoneal shunt placement. 3. Status post prior hysterectomy and bilateral salpingo-oophorectomy through Pfannenstiel incision 4. S/p IR drainage 09/09/16 with removal of 20 cc pus and placement of a 10 Fr. pigtail catheter at [facility]. 5. Readmission to [facility] 09/15/16 with upsizing of drain to 12 Fr pigtail on (communication with colon demonstrated; no obvious free communication to rest of peritoneal space). Septic shock with multiorgan failure 09/21/2016 requiring ICU admission with intubation and pressors. 6. S/p a rather challenging sigmoid colectomy with performance of end colostomy (Reid's procedure), takedown of splenic flexure of the colon, lysis of adhesions (60 minutes), and abdominal lavage at [facility] on 09/21/16 Subjective: No major events or complaints overnight; no obvious abd pain and appears to be under control with medications; no observed or reported n/v/d; no observed or reported sob or cp; + bowel activity; - activity; please note that this is based on nursing observations since the patient is currently intubated, sedated and for the most part noncommunicative. Objective: Vitals: See below I's & O's: See below Exam: GENERAL: On exam, the patient was lying in bed and appeared to be comfortable and in no acute distress. Intubated and on the ventilator. ABDOMEN: Soft, nontender and nondistended. Incision dressings are clean, dry and intact without any obvious evidence of underlying erythema, edema, discharge , or hernia. Surgical drain ss. There are no peritoneal signs or guarding. Ostomy appears to be purple in color and somewhat retracted. + stool and air in the bag. SKIN: Skin appears to be pink and feels warm to touch. NEUROLOGIC: Patient is arousable to voice and follows very simple commands. Labs: See below Exam/Review of Systems Vital Signs Vitals Vital Signs Date Time Temp Pulse Resp B/P Pulse Ox O2 Delivery O2 Flow Rate FiO2 09/23/16 12:00 70 09/23/16 12:00 75 09/23/16 11:15 18 122/56 97 09/23/16 11:00 Mechanical Ventilator 09/23/16 08:00 98.7 Intake and Output 09/22/16 09/22/16 09/23/16 15:00 23:00 07:00 Intake Total 1276.762 ml 1395.391 ml 1040.227 ml Output Total 367 ml 588 ml 768 ml Balance 909.762 ml 807.391 ml 272.227 ml Results Result Diagram: 09/23/16 0345 09/23/16 0345 ALEXSANDER DUARTE M.D. Sep 23, 2016 16:17
[2016-09-23] MEDS: FLUCONAZOLE 100 MG/NS (PMX) 50 ML IVPB SCH (16:22)
[2016-09-24] VITALS (46 sets, daily range): BP systolic 96–172; BP diastolic 44–78; PULSE 71–97; RESP 16–40
[2016-09-24] MEDS: PANTOPRAZOLE IV 80 MG in SOD CHLORIDE 0.9% 100 ML IV SCH ×3 (00:32→22:16)
[2016-09-24] MEDS: PROPOFOL 100 ML IV SCH ×3 (03:59→22:53)
[2016-09-24 05:20] LABS: AADO2 Arterial 346.1 mmHg (7.0-24.0); Arterial Base Excess 3.3 mmol/L (-3.0-3); Arterial COHb 0.3 % (0.0-3.0); Arterial HCO3 27.1 mmol/L (22.0-26.0); Arterial MetHb 0.6 % (0.0-1.5); MODE VENT - AC
[2016-09-24 05:31] LABS: ADD SCAN DIFF NO
[2016-09-24 05:40] LABS: ABNORMAL IP MESSAGE 1; BASOPHIL # 0.1 10^3/ul (0.0-0.1); BASOPHILS % 0.6 % (0.0-2.0); HEMATOCRIT 22.9 % (37.0-47.0); HEMOGLOBIN 7.5 g/dl (12.0-16.0); LYMPHOCYTES # 0.6 10^3/ul (0.8-2.9); LYMPHOCYTES % 6.6 % (15.0-51.0); MEAN CORPUSCULAR HEMOGLOBIN 25.8 pg (29.0-33.0); MEAN CORPUSCULAR HGB CONC 32.8 g/dl (32.0-37.0); MEAN CORPUSCULAR VOLUME 78.7 fl (82.0-101.0); MONOCYTE # 0.3 10^3/ul (0.3-0.9); MONOCYTES % 3.3 % (0.0-11.0); NUCLEATED RED BLOOD CELLS # 0.1 10^3/ul (0.0-0.0); NUCLEATED RED BLOOD CELLS% 0.8 /100WBC (0.0-0.0); PLATELET COUNT 36 10^3/UL (140-415); RED BLOOD COUNT 2.91 10^6/ul (4.20-5.40); RED CELL DISTRIBUTION WIDTH 19.4 % (11.5-14.5); WHITE BLOOD COUNT 9.3 10^3/ul (4.8-10.8)
[2016-09-24] MEDS: MEROPENEM 500MG/50 ML (PMX) 50 ML IVPB SCH ×3 (05:44→22:17)
[2016-09-24] MEDS: VANCOMYCIN 500MG/NS (PMX) 100 ML IVPB SCH ×2 (05:44→21:18)
[2016-09-24] MEDS: FUROSEMIDE 20 MG INJ IV SCH ×2 (05:51→20:29)
[2016-09-24 06:04] LABS: INR 1.77; PARTIAL THROMBOPLASTIN TIME 32.6 Sec (25.0-35.0); PROTIME 20.8 Sec (12.2-14.2); PT RATIO 1.6
[2016-09-24 06:20] LABS: ALBUMIN 1.7 g/dl (3.3-4.9); ALBUMIN/GLOBULIN RATIO 0.94; BILIRUBIN,DIRECT 1.5 mg/dl (0.00-0.20); BILIRUBIN,INDIRECT 0.4 mg/dl (0-1.1); BILIRUBIN,TOTAL 1.9 mg/dl (0.2-1.3); CALCIUM 6.9 mg/dl (8.4-10.2); CREATININE 1.05 mg/dl (0.44-1.00); MAGNESIUM 1.9 mg/dl (1.7-2.5); PHOSPHORUS 5.1 mg/dl (2.5-4.9); POTASSIUM 3.7 mmol/L (3.5-5.1); TOTAL PROTEIN 3.5 g/dl (6.1-8.1)
--- NOTE | 2016-09-24 07:18 | PN ---
Date/Time of Note Date/Time of Note DATE: 09/24/16 TIME: 07:15 Assessment/Plan VTE Prophylaxis VTE Prophylaxis Intervention: other Lines/Catheters IV Catheter Type (from Nrsg): Central Line Central line still needed: Yes Urinary Cath still in place: Yes Reason Cath still needed: other (indicate) Assessment/Plan Chief Complaint/Hosp Course 1. Nonoliguric acute kidney injury. Etiology secondary ATN -Renal function slowly been improving with supportive care continue current treatment plan renally dose meds avoid nephrotoxins - 2. Hypernatremia Improving -We will consider starting D5W 3. Anemia Monitor H&H levels 4. Mineral bone disorder Monitor calcium phosphorus levels 5. Lactic acidosis secondary to shock Improving -Continue to monitor 6. Septic shock secondary very to perforated viscus -Continue antibiotic regimen, -Patient weaned off pressors 7. Perforated viscus status post colostomy Status post follow-up with surgery 8. Ventilator dependent respiratory failure events has been reviewed ABGs reviewed follow-up with pulmonary 9. Volume overload/anasarca -Patient on intermittent diuretic therapy monitor hemodynamics and blood pressure 10. History of intracranial hemorrhage in the past status post [employer] shunt placement that has been stable over time -[employer] shunt was externalized during the surgery September 21, 2016 due to abdominal infection, per neurosurgical notes may need to be reconnected once patient stable versus removed Problems: Subjective 24 Hr Interval Summary Free Text/Dictation Patient remains critically ill, Good urinary output, no other events noted Exam/Review of Systems Vital Signs Vitals Vital Signs Date Time Temp Pulse Resp B/P Pulse Ox O2 Delivery O2 Flow Rate FiO2 09/24/16 06:00 83 23 127/58 98 Mechanical Ventilator 09/24/16 05:25 70 09/24/16 04:00 98.5 Intake and Output 09/23/16 09/23/16 09/24/16 15:00 23:00 07:00 Intake Total 897.858 ml 431.148 ml 357.736 ml Output Total 891 ml 1004 ml 886 ml Balance 6.858 ml -572.852 ml -528.264 ml Exam HEENT: Normal cephalic atraumatic Neck: Supple with full range of motion. No rigidity or meningismus Lungs: Coarse breath sounds bilateral Heart: Sinus tachycardia Abdomen: Positive ostomy, positive wound VAC Extremities: Normal to inspection, no edema no cyanosis Neurologic: Limited exam Results Result Diagram: 09/24/16 0510 09/24/16 0510 Results 24 hrs Laboratory Tests Test 09/23/16 12:00 09/24/16 05:00 09/24/16 05:10 Blood Gas Specimen Source Blood arterial Blood arterial Arterial Blood Date Drawn 09/23/2016 11:56:47 AM 09/24/2016 5:10:29 AM Arterial Blood pH (Temp corrected) 7.462 H 7.473 H Arterial Blood pCO2 (Temp correct) 34.5 L 37.8 Arterial Blood pO2 (Temp corrected) 90.1 H 112.4 H Arterial Blood HCO3 24.1 27.1 H Arterial Blood Base Excess 0.5 3.3 H Arterial Blood Oxygen Saturation 95.3 96.9 Cain Test N/A N/A Arterial Blood Gas Puncture Site A-Line A-Line Arterial Blood Carboxyhemoglobin 0.3 0.3 Arterial Blood Methemoglobin 0.5 0.6 Blood Gas A-a O2 Differential 371.9 H 346.1 H Oxyhemoglobin Percent 94.5 96.0 Total Hemoglobin 8.3 L 8.0 L Blood Gas Temperature 37.0 37.0 Blood Gas Respiration Rate 18.0 18.0 Blood Gas Actual Respiration Rate 18 19 Blood Gas Modality VENT - AC VENT - AC FiO2 70.0 70.0 Blood Gas Tidal Volume 500.0 500.0 Blood Gas Low PEEP Setting 5.0 5.0 Blood Gas Notified Whom RH KM Blood Gas Notified Time 09/23/2016 12:08:06 PM 09/24/2016 5:20:20 AM Blood Gas Inspiratory Pressure 30.0 White Blood Count 9.3 # Red Blood Count 2.91 L Hemoglobin 7.5 L Hematocrit 22.9 L Mean Corpuscular Volume 78.7 L Mean Corpuscular Hemoglobin 25.8 L Mean Corpuscular Hemoglobin Concent 32.8 Red Cell Distribution Width 19.4 H Platelet Count 36 L Mean Platelet Volume Neutrophils % 86.0 H Lymphocytes % 6.6 L Monocytes % 3.3 Eosinophils % 0.0 Basophils % 0.6 Nucleated Red Blood Cells % 0.8 H Neutrophils # 8.0 H Lymphocytes # 0.6 L Monocytes # 0.3 Eosinophils # 0.0 Basophils # 0.1 Nucleated Red Blood Cells # 0.1 H Prothrombin Time 20.8 #H Prothrombin Time Ratio 1.6 INR International Normalized Ratio 1.77 Activated Partial Thromboplast Time 32.6 Sodium Level 145 H Potassium Level 3.7 Chloride Level 104 Carbon Dioxide Level 28 Anion Gap 17 H Blood Urea Nitrogen 34 #H Creatinine 1.05 H Glucose Level 98 # Lactic Acid Level 2.9 *H Calcium Level 6.9 L Phosphorus Level 5.1 H Magnesium Level 1.9 Total Bilirubin 1.9 H Direct Bilirubin 1.50 #H Indirect Bilirubin 0.4 Aspartate Amino Transf (AST/SGOT) 81 H Alanine Aminotransferase (ALT/SGPT) 81 H Alkaline Phosphatase 88 # B-Type Natriuretic Peptide 2760 H Total Protein 3.5 L Albumin 1.7 L Globulin 1.80 Albumin/Globulin Ratio 0.94 Medications Medications Current Medications Morphine Sulfate (morphine) 2 mg Q4H PRN IV PAIN Last administered on 06:26; Admin Dose 2 MG; Start 09/15/16 at 23:30 Ondansetron HCl (Zofran Inj) 4 mg Q6H PRN IV NAUSEA AND/OR VOMITING Last administered on 09/20/16 21:11; Admin Dose 4 MG; Start 09/16/16 at 00:30 Acetaminophen (Tylenol Tab) 650 mg Q6H PRN PO PAIN LEVEL 1-3 OR FEVER Last administered on 09/17/16 10:06; Admin Dose 650 MG; Start 09/16/16 at 00:30 Polyethylene Glycol 17 gm 17 gm DAILY PO Last administered on 09/20/16 11:44; Admin Dose 17 GM; Start 09/20/16 at 11:00 Meropenem/Sodium Chloride 50 ml @ 200 mls/hr Q8 IVPB Last administered on 09/24 05:44; Admin Dose 200 MLS/HR; Start 09/20/16 at 22:00 Fluconazole/ Sodium Chloride 50 ml @ 50 mls/hr Q24H IVPB Last administered on 16:22; Admin Dose 50 MLS/HR; Start 09/20/16 at 16:30 Vancomycin HCl 100 ml @ 100 mls/hr Q12H IVPB Last administered on 09/24/16 05 :44; Admin Dose 100 MLS/HR; Start 09/21/16 at 06:00 Norepinephrine 16 mg/Dextrose 500 ml @ 1.87 mls/hr TITRATE IV Last administered on 09/22/16 04:08; Admin Dose 56.25 MLS/HR; Start 09/21/16 at 09: 00 Pantoprazole 80 mg/Sodium Chloride 100 ml @ 10 mls/hr Q10H IV Last administered on 09/24/16 00:32; Admin Dose 10 MLS/HR; Start 09/21/16 at 02:15 Propofol (Diprivan) 100 ml @ 1.671 mls/ hr Q12H IV Last administered on 03:59; Admin Dose 13.368 MLS/HR; Start 09/21/16 at 02:30 Acetaminophen/ Hydrocodone Bitart ([place] (5/325)) 1 tab Q4H PRN PO PAIN LEVEL 4 -7; Start 09/21/16 at 15:00 Acetaminophen/ Hydrocodone Bitart ([place] (5/325)) 2 tab Q4H PRN PO PAIN LEVEL 7 -10; Start 09/21/16 at 15:00 Hydromorphone HCl (Dilaudid) 0.5 mg Q2H PRN IV PAIN; Start 09/21/16 at 15:00 Hydromorphone HCl (Dilaudid) 1 mg Q2H PRN IV PAIN Last administered on 00:11; Admin Dose 1 MG; Start 09/21/16 at 15:00 Docusate Sodium (Colace) 100 mg BID PRN PO CONSTIPATION; Start 09/21/16 at 15: 00 Enoxaparin Sodium (Lovenox) 40 mg DAILY SC ; Start 09/22/16 at 09:00; Status Future Hold Docusate Sodium (Colace Liquid Cup) 100 mg BID NGT Last administered on 21:25; Admin Dose 100 MG; Start 09/22/16 at 21:00 KIRAN CASTILLO DO Sep 24, 2016 07:18
[2016-09-24] MEDS: POLYETHYLENE GLYCOL 17 GM PACKET PO SCH (09:26)
[2016-09-24] MEDS: DOCUSATE SODIUM 10 MG/ML (10ML CUP) NGT SCH ×2 (09:26→20:28)
--- NOTE | 2016-09-24 10:58 | CONS ---
Date/Time of Note Date/Time of Note DATE: 09/24/16 TIME: 10:56 Consult Date/Type/Reason Admit Date/Time Sep 15, 2016 at 21:35 Initial Consult Date 09/21/16 Type of Consultation: Pulmonary ICU Ordering Provider: AUNDREA ARMENDARIZ Subjective Patient remains intubated sedated on mechanical ventilation. FiO2 decreased to 60%. Plan today is to go back to the OR for reexploration Objective Vital Signs Date Time Temp Pulse Resp B/P Pulse Ox O2 Delivery O2 Flow Rate FiO2 09/24/16 10:00 81 21 109/61 98 Mechanical Ventilator 09/24/16 09:10 70 09/24/16 08:00 99.0 Intake and Output 09/23/16 09/23/16 09/24/16 14:59 22:59 06:59 Intake Total 947.500 ml 480.506 ml 387.736 ml Output Total 821 ml 1004 ml 986 ml Balance 126.500 ml -523.494 ml -598.264 ml Exam GENERAL: Intubated sedated on mechanical ventilation VITAL SIGNS: per chart NECK: Supple. No JVD or lymphadenopathy. CARDIAC EXAM: S1, S2. No added sounds or murmurs. CHEST: diminished air entry bilaterally with rales ABDOMEN: Decreased bowel sounds but no guarding or rebound EXTREMITIES: No cyanosis, clubbing, edema +1 NEUROLOGIC: Generalized weakness. Results/Medications Result Diagram: 09/24/16 0510 09/24/16 0510 Results 24 hrs Laboratory Tests Test 09/23/16 12:00 09/24/16 05:00 09/24/16 05:10 Blood Gas Specimen Source Blood arterial Blood arterial Arterial Blood Date Drawn 09/23/2016 11:56:47 AM 09/24/2016 5:10:29 AM Arterial Blood pH (Temp corrected) 7.462 H 7.473 H Arterial Blood pCO2 (Temp correct) 34.5 L 37.8 Arterial Blood pO2 (Temp corrected) 90.1 H 112.4 H Arterial Blood HCO3 24.1 27.1 H Arterial Blood Base Excess 0.5 3.3 H Arterial Blood Oxygen Saturation 95.3 96.9 Cain Test N/A N/A Arterial Blood Gas Puncture Site A-Line A-Line Arterial Blood Carboxyhemoglobin 0.3 0.3 Arterial Blood Methemoglobin 0.5 0.6 Blood Gas A-a O2 Differential 371.9 H 346.1 H Oxyhemoglobin Percent 94.5 96.0 Total Hemoglobin 8.3 L 8.0 L Blood Gas Temperature 37.0 37.0 Blood Gas Respiration Rate 18.0 18.0 Blood Gas Actual Respiration Rate 18 19 Blood Gas Modality VENT - AC VENT - AC FiO2 70.0 70.0 Blood Gas Tidal Volume 500.0 500.0 Blood Gas Low PEEP Setting 5.0 5.0 Blood Gas Notified Whom KM Blood Gas Notified Time 09/23/2016 12:08:06 PM 09/24/2016 5:20:20 AM Blood Gas Inspiratory Pressure 30.0 White Blood Count 9.3 # Red Blood Count 2.91 L Hemoglobin 7.5 L Hematocrit 22.9 L Mean Corpuscular Volume 78.7 L Mean Corpuscular Hemoglobin 25.8 L Mean Corpuscular Hemoglobin Concent 32.8 Red Cell Distribution Width 19.4 H Platelet Count 36 L Mean Platelet Volume Neutrophils % 86.0 H Lymphocytes % 6.6 L Monocytes % 3.3 Eosinophils % 0.0 Basophils % 0.6 Nucleated Red Blood Cells % 0.8 H Neutrophils # 8.0 H Lymphocytes # 0.6 L Monocytes # 0.3 Eosinophils # 0.0 Basophils # 0.1 Nucleated Red Blood Cells # 0.1 H Prothrombin Time 20.8 #H Prothrombin Time Ratio 1.6 INR International Normalized Ratio 1.77 Activated Partial Thromboplast Time 32.6 Sodium Level 145 H Potassium Level 3.7 Chloride Level 104 Carbon Dioxide Level 28 Anion Gap 17 H Blood Urea Nitrogen 34 #H Creatinine 1.05 H Glucose Level 98 # Lactic Acid Level 2.9 *H Calcium Level 6.9 L Phosphorus Level 5.1 H Magnesium Level 1.9 Total Bilirubin 1.9 H Direct Bilirubin 1.50 #H Indirect Bilirubin 0.4 Aspartate Amino Transf (AST/SGOT) 81 H Alanine Aminotransferase (ALT/SGPT) 81 H Alkaline Phosphatase 88 # B-Type Natriuretic Peptide 2760 H Total Protein 3.5 L Albumin 1.7 L Globulin 1.80 Albumin/Globulin Ratio 0.94 Medications Current Medications Morphine Sulfate (morphine) 2 mg Q4H PRN IV PAIN Last administered on t 06:26; Admin Dose 2 MG; Start 09/15/16 at 23:30 Ondansetron HCl (Zofran Inj) 4 mg Q6H PRN IV NAUSEA AND/OR VOMITING Last administered on 09/20/16 21:11; Admin Dose 4 MG; Start 09/16/16 at 00:30 Acetaminophen (Tylenol Tab) 650 mg Q6H PRN PO PAIN LEVEL 1-3 OR FEVER Last administered on 09/17/16 10:06; Admin Dose 650 MG; Start 09/16/16 at 00:30 Polyethylene Glycol 17 gm 17 gm DAILY PO Last administered on 09/24/16 09:26; Admin Dose 17 GM; Start 09/20/16 at 11:00 Meropenem/Sodium Chloride 50 ml @ 200 mls/hr Q8 IVPB Last administered on 09/24 05:44; Admin Dose 200 MLS/HR; Start 09/20/16 at 22:00 Fluconazole/ Sodium Chloride 50 ml @ 50 mls/hr Q24H IVPB Last administered on 16:22; Admin Dose 50 MLS/HR; Start 09/20/16 at 16:30 Vancomycin HCl 100 ml @ 100 mls/hr Q12H IVPB Last administered on 09/24/16 05 :44; Admin Dose 100 MLS/HR; Start 09/21/16 at 06:00 Norepinephrine 16 mg/Dextrose 500 ml @ 1.87 mls/hr TITRATE IV Last administered on 09/22/16 04:08; Admin Dose 56.25 MLS/HR; Start 09/21/16 at 09: 00 Pantoprazole 80 mg/Sodium Chloride 100 ml @ 10 mls/hr Q10H IV Last administered on 09/24/16 07:51; Admin Dose 10 MLS/HR; Start 09/21/16 at 02:15 Propofol (Diprivan) 100 ml @ 1.671 mls/ hr Q12H IV Last administered on 03:59; Admin Dose 13.368 MLS/HR; Start 09/21/16 at 02:30 Acetaminophen/ Hydrocodone Bitart ([place] (5/325)) 1 tab Q4H PRN PO PAIN LEVEL 4 -7; Start 09/21/16 at 15:00 Acetaminophen/ Hydrocodone Bitart ([place] (5/325)) 2 tab Q4H PRN PO PAIN LEVEL 7 -10; Start 09/21/16 at 15:00 Hydromorphone HCl (Dilaudid) 0.5 mg Q2H PRN IV PAIN; Start 09/21/16 at 15:00 Hydromorphone HCl (Dilaudid) 1 mg Q2H PRN IV PAIN Last administered on 00:11; Admin Dose 1 MG; Start 09/21/16 at 15:00 Docusate Sodium (Colace) 100 mg BID PRN PO CONSTIPATION; Start 09/21/16 at 15: 00 Enoxaparin Sodium (Lovenox) 40 mg DAILY SC ; Start 09/22/16 at 09:00; Status Future Hold Docusate Sodium (Colace Liquid Cup) 100 mg BID NGT Last administered on 09:26; Admin Dose 100 MG; Start 09/22/16 at 21:00 Assessment/Plan Chief Complaint/Hosp Course Assessment 1. Severe sepsis and hypoxemic respiratory failure. Differential includes healthcare associated pneumonia versus aspiration pneumonia. Evidence of pleural effusions also. FiO2 at 70%. Will decrease as tolerated. Radiographic evidence of pulmonary edema today 2. Possible infected APARTMENT GROUNDSKEEPER shunt. Status post externalization 3. Abdominal abscesses possible peritonitis. Repeat exploratory laparotomy today 4. Severe sepsis with metabolic acidosis clinically improved 5. Postop anemia, hemoglobin 6.9. No evidence of active bleeding at present. 6. Electrolyte abnormalities hyperkalemia and hypernatremia Plan 1. Continue mechanical ventilation, will require thoracentesis when more stable pleural fluid studies. Not stable for weaning from ventilator today. Gentle diuresis when more stable 2.' neurosurgery and general surgery recommendations, for surgery today. 3. Continue broad-spectrum antibiotics 4. Trend lactic acid, aggressive fluid resuscitation. Transfusion of packed red blood cells per general surgery. 5. DVT and GI prophylaxis 6. Renal recommendations regarding electrolyte abnormalities, agree with gentle diuresis. Discussed with staff Critical care time 40 minutes. Problems: DAMIEN GUADARRAMA MD, [facility] Sep 24, 2016 10:58
--- NOTE | 2016-09-24 11:18 | CONS ---
Date/Time of Note Date/Time of Note DATE: 09/24/16 TIME: 11:16 Assessment/Plan Assessment/Plan Chief Complaint/Hosp Course Acute diastolic heart failure: Secondary to volume resuscitation in setting of low albumin and third spacing. CXR worse now and with significant anasarca Septic shock: from intraabdominal abscess and possible infected HOLE PUNCHER STRAP shunt. S/p sigmoid colectomy. Now off levophed and lactate improving Acute respiratory failure: Due to septic shock, severe metabolic acidosis as well as pulm edema NSTEMI: Trop mildly elevated likely type II in the setting of septic shock. Echo from 09/18 showed normal EF and no significant valvular disease. Repeat trop normalized Diverticulitis complicated by abscess s/p sigmoid colectomy Coagulopathy: ?DIC h/o ICH with HOLE PUNCHER STRAP shunt -continue lasix 20mg IV BID for slow diuresis -no ASA with anemia, coagulopathy and low suspicion for CAD Problems: Consultation Date/Type/Reason Admit Date/Time Sep 15, 2016 at 21:35 Initial Consult Date 09/21/16 Type of Consultation: Cardiology Referring Provider: AUNDREA ARMENDARIZ 24 HR Interval Summary Free Text/Dictation No o/n events. Sedated. Diuresing Exam/Review of Systems Vital Signs Vitals Vital Signs Date Time Temp Pulse Resp B/P Pulse Ox O2 Delivery O2 Flow Rate FiO2 09/24/16 10:00 81 21 109/61 98 Mechanical Ventilator 09/24/16 09:10 70 09/24/16 08:00 99.0 Intake and Output 09/23/16 09/23/16 09/24/16 15:00 23:00 07:00 Intake Total 897.858 ml 431.148 ml 399.433 ml Output Total 891 ml 1004 ml 1036 ml Balance 6.858 ml -572.852 ml -636.567 ml Exam Constitutional: No alert ENMT: intubated Neck: jvd (10cm) Respiratory: diminished breath sounds, No clear to auscultation Cardiovascular: edema (2+), regular rate and rhythm, No systolic murmur Gastrointestinal: non-tender, soft, No distended Neurological: No nl mental status, No nl speech Results Result Diagram: 09/24/16 0510 09/24/16 0510 Results 24 hrs Laboratory Tests Test 09/23/16 12:00 09/24/16 05:00 09/24/16 05:10 Blood Gas Specimen Source Blood arterial Blood arterial Arterial Blood Date Drawn 09/23/2016 11:56:47 AM 09/24/2016 5:10:29 AM Arterial Blood pH (Temp corrected) 7.462 H 7.473 H Arterial Blood pCO2 (Temp correct) 34.5 L 37.8 Arterial Blood pO2 (Temp corrected) 90.1 H 112.4 H Arterial Blood HCO3 24.1 27.1 H Arterial Blood Base Excess 0.5 3.3 H Arterial Blood Oxygen Saturation 95.3 96.9 Cain Test N/A N/A Arterial Blood Gas Puncture Site A-Line A-Line Arterial Blood Carboxyhemoglobin 0.3 0.3 Arterial Blood Methemoglobin 0.5 0.6 Blood Gas A-a O2 Differential 371.9 H 346.1 H Oxyhemoglobin Percent 94.5 96.0 Total Hemoglobin 8.3 L 8.0 L Blood Gas Temperature 37.0 37.0 Blood Gas Respiration Rate 18.0 18.0 Blood Gas Actual Respiration Rate 18 19 Blood Gas Modality VENT - AC VENT - AC FiO2 70.0 70.0 Blood Gas Tidal Volume 500.0 500.0 Blood Gas Low PEEP Setting 5.0 5.0 Blood Gas Notified Whom RH KM Blood Gas Notified Time 09/23/2016 12:08:06 PM 09/24/2016 5:20:20 AM Blood Gas Inspiratory Pressure 30.0 White Blood Count 9.3 # Red Blood Count 2.91 L Hemoglobin 7.5 L Hematocrit 22.9 L Mean Corpuscular Volume 78.7 L Mean Corpuscular Hemoglobin 25.8 L Mean Corpuscular Hemoglobin Concent 32.8 Red Cell Distribution Width 19.4 H Platelet Count 36 L Mean Platelet Volume Neutrophils % 86.0 H Lymphocytes % 6.6 L Monocytes % 3.3 Eosinophils % 0.0 Basophils % 0.6 Nucleated Red Blood Cells % 0.8 H Neutrophils # 8.0 H Lymphocytes # 0.6 L Monocytes # 0.3 Eosinophils # 0.0 Basophils # 0.1 Nucleated Red Blood Cells # 0.1 H Prothrombin Time 20.8 #H Prothrombin Time Ratio 1.6 INR International Normalized Ratio 1.77 Activated Partial Thromboplast Time 32.6 Sodium Level 145 H Potassium Level 3.7 Chloride Level 104 Carbon Dioxide Level 28 Anion Gap 17 H Blood Urea Nitrogen 34 #H Creatinine 1.05 H Glucose Level 98 # Lactic Acid Level 2.9 *H Calcium Level 6.9 L Phosphorus Level 5.1 H Magnesium Level 1.9 Total Bilirubin 1.9 H Direct Bilirubin 1.50 #H Indirect Bilirubin 0.4 Aspartate Amino Transf (AST/SGOT) 81 H Alanine Aminotransferase (ALT/SGPT) 81 H Alkaline Phosphatase 88 # B-Type Natriuretic Peptide 2760 H Total Protein 3.5 L Albumin 1.7 L Globulin 1.80 Albumin/Globulin Ratio 0.94 Medications Medications Current Medications Morphine Sulfate (morphine) 2 mg Q4H PRN IV PAIN Last administered on 06:26; Admin Dose 2 MG; Start 09/15/16 at 23:30 Ondansetron HCl (Zofran Inj) 4 mg Q6H PRN IV NAUSEA AND/OR VOMITING Last administered on 09/20/16 21:11; Admin Dose 4 MG; Start 09/16/16 at 00:30 Acetaminophen (Tylenol Tab) 650 mg Q6H PRN PO PAIN LEVEL 1-3 OR FEVER Last administered on 09/17/16 10:06; Admin Dose 650 MG; Start 09/16/16 at 00:30 Polyethylene Glycol 17 gm 17 gm DAILY PO Last administered on 09/24/16 09:26; Admin Dose 17 GM; Start 09/20/16 at 11:00 Meropenem/Sodium Chloride 50 ml @ 200 mls/hr Q8 IVPB Last administered on 09/24 05:44; Admin Dose 200 MLS/HR; Start 09/20/16 at 22:00 Fluconazole/ Sodium Chloride 50 ml @ 50 mls/hr Q24H IVPB Last administered on 16:22; Admin Dose 50 MLS/HR; Start 09/20/16 at 16:30 Vancomycin HCl 100 ml @ 100 mls/hr Q12H IVPB Last administered on 09/24/16 05 :44; Admin Dose 100 MLS/HR; Start 09/21/16 at 06:00 Norepinephrine 16 mg/Dextrose 500 ml @ 1.87 mls/hr TITRATE IV Last administered on 09/22/16 04:08; Admin Dose 56.25 MLS/HR; Start 09/21/16 at 09: 00 Pantoprazole 80 mg/Sodium Chloride 100 ml @ 10 mls/hr Q10H IV Last administered on 09/24/16 07:51; Admin Dose 10 MLS/HR; Start 09/21/16 at 02:15 Propofol (Diprivan) 100 ml @ 1.671 mls/ hr Q12H IV Last administered on 03:59; Admin Dose 13.368 MLS/HR; Start 09/21/16 at 02:30 Acetaminophen/ Hydrocodone Bitart ([place] (5/325)) 1 tab Q4H PRN PO PAIN LEVEL 4 -7; Start 09/21/16 at 15:00 Acetaminophen/ Hydrocodone Bitart ([place] (5/325)) 2 tab Q4H PRN PO PAIN LEVEL 7 -10; Start 09/21/16 at 15:00 Hydromorphone HCl (Dilaudid) 0.5 mg Q2H PRN IV PAIN; Start 09/21/16 at 15:00 Hydromorphone HCl (Dilaudid) 1 mg Q2H PRN IV PAIN Last administered on 00:11; Admin Dose 1 MG; Start 09/21/16 at 15:00 Docusate Sodium (Colace) 100 mg BID PRN PO CONSTIPATION; Start 09/21/16 at 15: 00 Enoxaparin Sodium (Lovenox) 40 mg DAILY SC ; Start 09/22/16 at 09:00; Status Future Hold Docusate Sodium (Colace Liquid Cup) 100 mg BID NGT Last administered on 09:26; Admin Dose 100 MG; Start 09/22/16 at 21:00 GUSTAVO RAMON Sep 24, 2016 11:18
--- NOTE | 2016-09-24 12:29 | RADRPT ---
PROCEDURE: XR Chest. CLINICAL INDICATION: Shortness of breath. TECHNIQUE: Single frontal view. COMPARISON: 09/23/2016. FINDINGS: The endotracheal tube and nasogastric tube are in satisfactory position. There is bilateral pulmonar y air space disease consistent with pulmonary edema or bilateral pneumonia. A right subclavian vein catheter is present with the tip in the right internal jugular vein. The heart size is mildly enlarged. There is calcification in the aorta consistent with atheroscleros is. There are small bilateral pleural effusions. There is no pneumothorax. IMPRESSION: 1. Right subclavian vein catheter tip in the right internal jugular vein. 2. No change from 09/23/2016. Call report: A call report of the findings was made to Dr. Viramontes on 09/24/2016 at 1228 hours. RPTAT: QQ .Beto Cortes MD, MD Date Time Electronically viewed and signed by .Beto Cortes MD, MD on 09/24/2016 12:28 .R/
--- NOTE | 2016-09-24 14:26 | PN ---
Date/Time of Note Date/Time of Note DATE: 09/24/16 TIME: 14:23 Assessment/Plan VTE Prophylaxis VTE Prophylaxis Intervention: SCD's Assessment/Plan Chief Complaint/Hosp Course 1. Severe sepsis with systemic shock and organ dysfunction 2/2 #2 2. 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 Lactic and Metabolic acidosis 2/2 above 4. Mild troponin elevation likely type 2 from #1: trending 5. Acute transaminitis 2/2 shock liver: improving 6. History of intracranial hemorrhage in the past status post BUREAU DIRECTOR shunt placement that has been stable over time * BUREAU DIRECTOR shunt was externalized during the surgery September 21, 2016 due to abdominal infection, per neurosurgical notes may need to be reconnected once patient stable versus removed 7. Hypernatremia likely secondary to #1: improved 8. Severe coagulopathy also as a result of #1: improving 9. Iron deficiency hypochromic anemia on iron infusion therapy 10. Diffuse anasarca as well as bilateral pleural effusions likely associated hypoalbuminemia 11. Bilateral pneumonia with vascular congestion concerning for BUD S 12. Acute renal insufficiency secondary to #1 PLAN: Abdominal washout today with possible attempt at connecting the patient's colon and performance of a diverting loop ileostomy * Continue ICU care management * Continue ventilator monitoring and management /follow pulmonary recommendations * Resume tube feeds when stable and if okay with surgery * Continue broad-spectrum antibiotics per ID * Status post blood transfusion, serial labs, electrolytes replacement as indicated * Continue serial lactic acid trend * Patient's management remains dynamic depending on her clinical symptoms and lab findings, she continues require close monitoring, follow-ups and frequent reevaluation * Appreciate all consultants * Further interventions per clinical care Prophylaxis : SCDs / PPI Problems: Subjective 24 Hr Interval Summary Subjective hx not possible: pt non-verbal Exam/Review of Systems Vital Signs Vitals Vital Signs Date Time Temp Pulse Resp B/P Pulse Ox O2 Delivery O2 Flow Rate FiO2 09/24/16 13:30 80 18 98 70 09/24/16 10:00 109/61 Mechanical Ventilator 09/24/16 08:00 99.0 Intake and Output 09/23/16 09/23/16 09/24/16 14:59 22:59 06:59 Intake Total 947.500 ml 480.506 ml 387.736 ml Output Total 821 ml 1004 ml 986 ml Balance 126.500 ml -523.494 ml -598.264 ml Exam Constitutional: non-verbal Respiratory: clear to auscultation Cardiovascular: regular rate and rhythm Gastrointestinal: soft, No distended Musculoskeletal: nl extremities to inspection Results Result Diagram: 09/24/16 0510 09/24/16 0510 Results 24 hrs Laboratory Tests Test 09/24/16 05:00 09/24/16 05:10 Blood Gas Specimen Source Blood arterial Arterial Blood Date Drawn 09/24/2016 5:10:29 AM Arterial Blood pH (Temp corrected) 7.473 H Arterial Blood pCO2 (Temp correct) 37.8 Arterial Blood pO2 (Temp corrected) 112.4 H Arterial Blood HCO3 27.1 H Arterial Blood Base Excess 3.3 H Arterial Blood Oxygen Saturation 96.9 Cain Test N/A Arterial Blood Gas Puncture Site A-Line Arterial Blood Carboxyhemoglobin 0.3 Arterial Blood Methemoglobin 0.6 Blood Gas A-a O2 Differential 346.1 H Oxyhemoglobin Percent 96.0 Total Hemoglobin 8.0 L Blood Gas Temperature 37.0 Blood Gas Respiration Rate 18.0 Blood Gas Actual Respiration Rate 19 Blood Gas Modality VENT - AC FiO2 70.0 Blood Gas Tidal Volume 500.0 Blood Gas Low PEEP Setting 5.0 Blood Gas Inspiratory Pressure 30.0 Blood Gas Notified Whom KM Blood Gas Notified Time 09/24/2016 5:20:20 AM White Blood Count 9.3 # Red Blood Count 2.91 L Hemoglobin 7.5 L Hematocrit 22.9 L Mean Corpuscular Volume 78.7 L Mean Corpuscular Hemoglobin 25.8 L Mean Corpuscular Hemoglobin Concent 32.8 Red Cell Distribution Width 19.4 H Platelet Count 36 L Mean Platelet Volume Neutrophils % 86.0 H Lymphocytes % 6.6 L Monocytes % 3.3 Eosinophils % 0.0 Basophils % 0.6 Nucleated Red Blood Cells % 0.8 H Neutrophils # 8.0 H Lymphocytes # 0.6 L Monocytes # 0.3 Eosinophils # 0.0 Basophils # 0.1 Nucleated Red Blood Cells # 0.1 H Prothrombin Time 20.8 #H Prothrombin Time Ratio 1.6 INR International Normalized Ratio 1.77 Activated Partial Thromboplast Time 32.6 Sodium Level 145 H Potassium Level 3.7 Chloride Level 104 Carbon Dioxide Level 28 Anion Gap 17 H Blood Urea Nitrogen 34 #H Creatinine 1.05 H Glucose Level 98 # Lactic Acid Level 2.9 *H Calcium Level 6.9 L Phosphorus Level 5.1 H Magnesium Level 1.9 Total Bilirubin 1.9 H Direct Bilirubin 1.50 #H Indirect Bilirubin 0.4 Aspartate Amino Transf (AST/SGOT) 81 H Alanine Aminotransferase (ALT/SGPT) 81 H Alkaline Phosphatase 88 # B-Type Natriuretic Peptide 2760 H Total Protein 3.5 L Albumin 1.7 L Globulin 1.80 Albumin/Globulin Ratio 0.94 Medications Medications Current Medications Morphine Sulfate (morphine) 2 mg Q4H PRN IV PAIN Last administered on 06:26; Admin Dose 2 MG; Start 09/15/16 at 23:30 Ondansetron HCl (Zofran Inj) 4 mg Q6H PRN IV NAUSEA AND/OR VOMITING Last administered on 09/20/16 21:11; Admin Dose 4 MG; Start 09/16/16 at 00:30 Acetaminophen (Tylenol Tab) 650 mg Q6H PRN PO PAIN LEVEL 1-3 OR FEVER Last administered on 09/17/16 10:06; Admin Dose 650 MG; Start 09/16/16 at 00:30 Polyethylene Glycol 17 gm 17 gm DAILY PO Last administered on 09/24/16 09:26; Admin Dose 17 GM; Start 09/20/16 at 11:00 Meropenem/Sodium Chloride 50 ml @ 200 mls/hr Q8 IVPB Last administered on 09/24 14:11; Admin Dose 200 MLS/HR; Start 09/20/16 at 22:00 Fluconazole/ Sodium Chloride 50 ml @ 50 mls/hr Q24H IVPB Last administered on 16:22; Admin Dose 50 MLS/HR; Start 09/20/16 at 16:30 Vancomycin HCl 100 ml @ 100 mls/hr Q12H IVPB Last administered on 09/24/16 05 :44; Admin Dose 100 MLS/HR; Start 09/21/16 at 06:00 Norepinephrine 16 mg/Dextrose 500 ml @ 1.87 mls/hr TITRATE IV Last administered on 09/22/16 04:08; Admin Dose 56.25 MLS/HR; Start 09/21/16 at 09: 00 Pantoprazole 80 mg/Sodium Chloride 100 ml @ 10 mls/hr Q10H IV Last administered on 09/24/16 07:51; Admin Dose 10 MLS/HR; Start 09/21/16 at 02:15 Propofol (Diprivan) 100 ml @ 1.671 mls/ hr Q12H IV Last administered on 12:12; Admin Dose 11.697 MLS/HR; Start 09/21/16 at 02:30 Acetaminophen/ Hydrocodone Bitart ([place] (5/325)) 1 tab Q4H PRN PO PAIN LEVEL 4 -7; Start 09/21/16 at 15:00 Acetaminophen/ Hydrocodone Bitart ([place] (5/325)) 2 tab Q4H PRN PO PAIN LEVEL 7 -10; Start 09/21/16 at 15:00 Hydromorphone HCl (Dilaudid) 0.5 mg Q2H PRN IV PAIN; Start 09/21/16 at 15:00 Hydromorphone HCl (Dilaudid) 1 mg Q2H PRN IV PAIN Last administered on 00:11; Admin Dose 1 MG; Start 09/21/16 at 15:00 Docusate Sodium (Colace) 100 mg BID PRN PO CONSTIPATION; Start 09/21/16 at 15: 00 Enoxaparin Sodium (Lovenox) 40 mg DAILY SC ; Start 09/22/16 at 09:00; Status Future Hold Docusate Sodium (Colace Liquid Cup) 100 mg BID NGT Last administered on 09:26; Admin Dose 100 MG; Start 09/22/16 at 21:00 DALE RODARTE Sep 24, 2016 14:25
[2016-09-24] MEDS ORDERED: BUPIVACAINE 0.25%/EPI (SDV) 30 ML INJ ONE ×2 (14:38→15:27)
[2016-09-24] MEDS ORDERED: LIDOCAINE 1% (MPF) 30 ML INJ ONE ×2 (14:38→15:27)
--- NOTE | 2016-09-24 16:00 | HPN ---
Date/Time of Note Date/Time of Note DATE: 09/24/16 TIME: 10:59 Interval H&P Admission Note Pt. seen H&P reviewed: No system changes Pt. seen H&P reviewed. No system changes (I attest that I have seen and examined the patient and reviewed the operation in detail, as well as its risks , benefits and alternatives of the operation). I attest that I have seen and examined the patient and reviewed in detail the operation, and its associated risks, benefits and alternative. I have answered all the patient's questions to the best of my ability and the patient wishes to proceed. Please refer to rest of electronic medical record for additional updates. ALEXSANDER DUARTE M.D. Sep 24, 2016 15:59
--- NOTE | 2016-09-24 16:53 | CONS ---
Date/Time of Note Date/Time of Note DATE: 09/24/16 TIME: 16:47 Assessment/Plan Assessment/Plan Chief Complaint/Hosp Course Lying comfortably in bed, intubated, sedated no fevers Temperature 99.2 pulse 80 respirations 20 blood pressure 109/53 saturation 98 on 60 FiO2 WBC 9 point H&H 7.12 and 22.9 platelets 36 neutrophils 86 BN 34 creatinine 1.05 lactic acid 2.9 AST and ALT 81 total bili 1.9 Microbiology: all cultures have been negative Indwelling: Endotracheal tube NG tube ventriculostomy, right subclavian triple- lumen catheter, Shore catheter, left lower quadrant pigtail Allergies: Penicillins Antibiotics: Vancomycin, fluconazole, meropenem Physical elimination: Well-developed well-nourished elderly woman who is intubated sedated, in no distress. Normocephalic sclera nonicteric. Bugle mucosa dry. Neck is supple, trachea midline. Chest rise symmetrical breath sounds diminished to bases. Heart: S1-S2. Abdomen distended, soft, bowel tones hypoactive. Extremities without cyanosis, with trace 1+ edema bilateral lower extremities. Skin: Pale with anasarca. Assessment: 1. S/p septic shock, off pressors 2. Perforated sigmoid colon status post colectomy with end colostomy and lysis of adhesions on September 21, 2016 3. Status post externalization of BURR PICKER shunt on September 21, 2016 4. Acute renal failure 5. Transaminitis, improving 6. Acute respiratory failure requiring intubation 7. Healthcare associated pneumonia, possibly aspiration Plan: Remains hemodynamically stable, continue antibiotics, plan for OR today Discussed with staff Problems: Consultation Date/Type/Reason Admit Date/Time Sep 15, 2016 at 21:35 Type of Consultation: ID Referring Provider: AUNDREA ARMENDARIZ Exam/Review of Systems Vital Signs Vitals Vital Signs Date Time Temp Pulse Resp B/P Pulse Ox O2 Delivery O2 Flow Rate FiO2 09/24/16 15:25 80 19 98 60 09/24/16 15:00 109/53 Mechanical Ventilator 09/24/16 12:00 99.2 Intake and Output 09/23/16 09/23/16 09/24/16 15:00 23:00 07:00 Intake Total 897.858 ml 431.148 ml 399.433 ml Output Total 891 ml 1004 ml 1036 ml Balance 6.858 ml -572.852 ml -636.567 ml Results Result Diagram: 09/24/16 0510 09/24/16 0510 Results 24 hrs Laboratory Tests Test 09/24/16 05:00 09/24/16 05:10 Blood Gas Specimen Source Blood arterial Arterial Blood Date Drawn 09/24/2016 5:10:29 AM Arterial Blood pH (Temp corrected) 7.473 H Arterial Blood pCO2 (Temp correct) 37.8 Arterial Blood pO2 (Temp corrected) 112.4 H Arterial Blood HCO3 27.1 H Arterial Blood Base Excess 3.3 H Arterial Blood Oxygen Saturation 96.9 Cain Test N/A Arterial Blood Gas Puncture Site A-Line Arterial Blood Carboxyhemoglobin 0.3 Arterial Blood Methemoglobin 0.6 Blood Gas A-a O2 Differential 346.1 H Oxyhemoglobin Percent 96.0 Total Hemoglobin 8.0 L Blood Gas Temperature 37.0 Blood Gas Respiration Rate 18.0 Blood Gas Actual Respiration Rate 19 Blood Gas Modality VENT - AC FiO2 70.0 Blood Gas Tidal Volume 500.0 Blood Gas Low PEEP Setting 5.0 Blood Gas Inspiratory Pressure 30.0 Blood Gas Notified Whom KM Blood Gas Notified Time 09/24/2016 5:20:20 AM White Blood Count 9.3 # Red Blood Count 2.91 L Hemoglobin 7.5 L Hematocrit 22.9 L Mean Corpuscular Volume 78.7 L Mean Corpuscular Hemoglobin 25.8 L Mean Corpuscular Hemoglobin Concent 32.8 Red Cell Distribution Width 19.4 H Platelet Count 36 L Mean Platelet Volume Neutrophils % 86.0 H Lymphocytes % 6.6 L Monocytes % 3.3 Eosinophils % 0.0 Basophils % 0.6 Nucleated Red Blood Cells % 0.8 H Neutrophils # 8.0 H Lymphocytes # 0.6 L Monocytes # 0.3 Eosinophils # 0.0 Basophils # 0.1 Nucleated Red Blood Cells # 0.1 H Prothrombin Time 20.8 #H Prothrombin Time Ratio 1.6 INR International Normalized Ratio 1.77 Activated Partial Thromboplast Time 32.6 Sodium Level 145 H Potassium Level 3.7 Chloride Level 104 Carbon Dioxide Level 28 Anion Gap 17 H Blood Urea Nitrogen 34 #H Creatinine 1.05 H Glucose Level 98 # Lactic Acid Level 2.9 *H Calcium Level 6.9 L Phosphorus Level 5.1 H Magnesium Level 1.9 Total Bilirubin 1.9 H Direct Bilirubin 1.50 #H Indirect Bilirubin 0.4 Aspartate Amino Transf (AST/SGOT) 81 H Alanine Aminotransferase (ALT/SGPT) 81 H Alkaline Phosphatase 88 # B-Type Natriuretic Peptide 2760 H Total Protein 3.5 L Albumin 1.7 L Globulin 1.80 Albumin/Globulin Ratio 0.94 Medications Medications Current Medications Morphine Sulfate (morphine) 2 mg Q4H PRN IV PAIN Last administered on 06:26; Admin Dose 2 MG; Start 09/15/16 at 23:30 Ondansetron HCl (Zofran Inj) 4 mg Q6H PRN IV NAUSEA AND/OR VOMITING Last administered on 09/20/16 21:11; Admin Dose 4 MG; Start 09/16/16 at 00:30 Acetaminophen (Tylenol Tab) 650 mg Q6H PRN PO PAIN LEVEL 1-3 OR FEVER Last administered on 09/17/16 10:06; Admin Dose 650 MG; Start 09/16/16 at 00:30 Polyethylene Glycol 17 gm 17 gm DAILY PO Last administered on 09/24/16 09:26; Admin Dose 17 GM; Start 09/20/16 at 11:00 Meropenem/Sodium Chloride 50 ml @ 200 mls/hr Q8 IVPB Last administered on 09/24 14:11; Admin Dose 200 MLS/HR; Start 09/20/16 at 22:00 Fluconazole/ Sodium Chloride 50 ml @ 50 mls/hr Q24H IVPB Last administered on 16:22; Admin Dose 50 MLS/HR; Start 09/20/16 at 16:30 Vancomycin HCl 100 ml @ 100 mls/hr Q12H IVPB Last administered on 09/24/16 05 :44; Admin Dose 100 MLS/HR; Start 09/21/16 at 06:00 Norepinephrine 16 mg/Dextrose 500 ml @ 1.87 mls/hr TITRATE IV Last administered on 09/22/16 04:08; Admin Dose 56.25 MLS/HR; Start 09/21/16 at 09: 00 Pantoprazole 80 mg/Sodium Chloride 100 ml @ 10 mls/hr Q10H IV Last administered on 09/24/16 07:51; Admin Dose 10 MLS/HR; Start 09/21/16 at 02:15 Propofol (Diprivan) 100 ml @ 1.671 mls/ hr Q12H IV Last administered on 12:12; Admin Dose 11.697 MLS/HR; Start 09/21/16 at 02:30 Acetaminophen/ Hydrocodone Bitart ([place] (5/325)) 1 tab Q4H PRN PO PAIN LEVEL 4 -7; Start 09/21/16 at 15:00 Acetaminophen/ Hydrocodone Bitart ([place] (5/325)) 2 tab Q4H PRN PO PAIN LEVEL 7 -10; Start 09/21/16 at 15:00 Hydromorphone HCl (Dilaudid) 0.5 mg Q2H PRN IV PAIN; Start 09/21/16 at 15:00 Hydromorphone HCl (Dilaudid) 1 mg Q2H PRN IV PAIN Last administered on 00:11; Admin Dose 1 MG; Start 09/21/16 at 15:00 Docusate Sodium (Colace) 100 mg BID PRN PO CONSTIPATION; Start 09/21/16 at 15: 00 Enoxaparin Sodium (Lovenox) 40 mg DAILY SC ; Start 09/22/16 at 09:00; Status Future Hold Docusate Sodium (Colace Liquid Cup) 100 mg BID NGT Last administered on 09:26; Admin Dose 100 MG; Start 09/22/16 at 21:00 Miscellaneous Information (*Rx Drug Level Order Reminder*) VANCO TROUGH @ 0, 500 ON... ONCE ONCE XX ; Start 09/25/16 at 05:00; Stop 09/25/16 at 05:01 CORINA ESTRELLA NP Sep 24, 2016 16:52
[2016-09-24] MEDS ORDERED: ROCURONIUM 50 MG INJ ONE ×2 (17:07→18:29)
--- NOTE | 2016-09-24 19:32 | OPR ---
Date/Time of Note Date/Time of Note DATE: 09/24/16 TIME: 19:31 Operative Report Procedure Date: Sep 21, 2016 Surgeon: NIRAJ MINER MD Anesthesia: general Estimated Blood Loss: minimal Complications: None Pt Condition Post Procedure: critical Procedure Description [facility] IN[facility]IVE NOTE PLACE OF SERVICE: [facility] DATE OF SURGERY: 09/24/2016 PREOPERATIVE DIAGNOSIS: 1. Perforated sigmoid colon (see below) 2. Status post ventriculoperitoneal shunt placement. 3. Status post prior hysterectomy and bilateral salpingo-oophorectomy through Pfannenstiel incision 4. S/p IR drainage 09/09/16 with removal of 20 cc pus and placement of a 10 Fr. pigtail catheter at [facility]. 5. Readmission to [facility] 09/15/16 with upsizing of drain to 12 Fr pigtail on (communication with colon demonstrated; no obvious free communication to rest of peritoneal space). Septic shock with multiorgan failure 09/21/2016 requiring ICU admission with intubation and pressors. 6. S/p a rather challenging sigmoid colectomy with performance of end colostomy (Reid's procedure), takedown of splenic flexure of the colon, lysis of adhesions (60 minutes), and abdominal lavage at [facility] on 09/21/16 POSTOPERATIVE DIAGNOSIS: 1. Perforated sigmoid colon (see below) 2. Status post ventriculoperitoneal shunt placement. 3. Status post prior hysterectomy and bilateral salpingo-oophorectomy through Pfannenstiel incision 4. S/p IR drainage 09/09/16 with removal of 20 cc pus and placement of a 10 Fr. pigtail catheter at [facility]. 5. Readmission to [facility] 09/15/16 with upsizing of drain to 12 Fr pigtail on (communication with colon demonstrated; no obvious free communication to rest of peritoneal space). Septic shock with multiorgan failure 09/21/2016 requiring ICU admission with intubation and pressors. 6. S/p a rather challenging sigmoid colectomy with performance of end colostomy (Reid's procedure), takedown of splenic flexure of the colon, lysis of adhesions (60 minutes), and abdominal lavage at [facility] on 09/21/16 7. Colon ischemia (distal transverse colon and descending colon) OPERATION: 1. Reentry through recent laparotomy incision with exploration of abdominal cavity 2. Takedown of colostomy 3. Completion left hemicolectomy with resection of distal transverse colon 3. Lysis of adhesions 4. Abdominal lavage 5. Performance of an colostomy SURGEON: Alexsander Duarte M.D. FRONT DESK AGENT: KAREN Summers ANESTHESIA: General endotracheal tube anesthesia ANESTHESIOLOGIST: Anny Reed M.D. BRIEF SUMMARY: An otherwise uncomplicated reexploration of the abdominal cavity was performed with takedown of the recent colostomy and resection of remainder of descending colon as well as distal transverse colon due to colon ischemia and performance of an colostomy after lysis of adhesions and abdominal lavage. There was leakage of stool in the abdominal cavity, part of which was from the 2 or 3 small holes in the distal transverse colon and part of it was because of the ostomy that was retracted. Updated Clinical Summary: A very pleasant 70-year-old lady without significant known past medical history other than a SHORT STORY WRITER shunt placement many years ago which she did not remember or report, presenting with what appears to be a sigmoid colon abscess or pericolonic abscess, which seemed to be a complication of diverticulitis. S/p IR drainage 09/09/16 with removal of 20 cc pus and placement of a 10 Fr. pigtail catheter at [facility]. D/c home 09/12/16. Re-presented to [facility] ED 09/15/16 after being diverted from [facility] (due to internal disaster diversion) where CT was done showing adequate placement of the percutaneous drain near the sigmoid colon and decompressed sigmoid colon abscess, no obvious free air or significant spillage of stool in the abdominal cavity, and incidental finding of tail of the SHORT STORY WRITER shunt in the pelvis (new from right upper quadrant position of the same drain on the CT scan at [facility]). Transfer to [facility] 09/15/2016 for further cares. S/p upsizing of drain to 12 Fr pigtail on 09/17/16 (communication with colon demonstrated; no obvious free communication to rest of peritoneal space). Patient decompensated in the early hours of the morning on 09/21/2016 and had to be transferred to the intensive care unit with need for endotracheal tube intubation, central line placement, and resuscitation for treatment of shock with lactic acidosis and evidence of peritonitis and free air on the new chest, abdomen, and pelvis CT scan. Comorbidities: 1. Perforated sigmoid colon 2. Status post ventriculoperitoneal shunt placement. 3. Status post prior hysterectomy and bilateral salpingo-oophorectomy through Pfannenstiel incision 4. S/p IR drainage 09/09/16 with removal of 20 cc pus and placement of a 10 Fr. pigtail catheter at [facility]. 5. Readmission to [facility] 09/15/16 with upsizing of drain to 12 Fr pigtail on (communication with colon demonstrated; no obvious free communication to rest of peritoneal space). Septic shock with multiorgan failure 09/21/2016 requiring ICU admission with intubation and pressors. 6. S/p a rather challenging sigmoid colectomy with performance of end colostomy (Reid's procedure), takedown of splenic flexure of the colon, lysis of adhesions (60 minutes), and abdominal lavage at [facility] on 09/21/16 BRIEF HISTORY: The patient is a very pleasant 70-year-old lady with above- mentioned comorbidities and recent history who deteriorated in the early hours of 09/21/2016. The following is my preoperative note describing the events in detail: Overall deteriorated with need for intubation and showing signs of shock. Additional findings are: Paralytic ileus, renal insufficiency with decreased urine output, cardiac strain with slight increase in troponin, but sinus tachycardia and no evidence of ST depression or other signs of cardiac ischemic disease, lung failure with need for intubation as mentioned, cardiovascular compromise with need for start of pressors, and anemia which is likely due to dilutional effects of resuscitation (but GI source of hemorrhage could not be completely ruled out at this time). I do not believe that the patient will get much better with further resuscitation and only intervention that will potentially reverse this process would be an exploration of the abdominal cavity in the operating room with likely need for partial colectomy and possibly , an ostomy placement. I do not believe that the patient has a primary cardiac issue or risks that could be reduced by intervention. We have attempted to obtain a stat cardiology consultation, but I will not delay the case to complete this consultation since the patient has an emergency which needs to be addressed in the operating room stat and the above-mentioned reason. I had discussed these in detail with the patient and her previously and our plan was to perform this operation this morning. I called and updated the patient's on the phone and again affirmed his consent for the operation for his as well (patient herself not able to give full consent at this time in my opinion; however, I did obtain her consent yesterday morning). I believe that the patient and still understand all of the above and agree with the procedure. I also discussed with Dr. Fu (anesthesiologist ) and we agreed about the decision to go to the operating room with above mentioned rationale. I also contacted Dr. Niraj Miner (neurosurgeon), who kindly agreed to be present for management of the SHORT STORY WRITER shunt. Preoperative assessment the day before and the day of the operation: Patient remained overall critically ill with guarded condition, but showed improvement on several fronts including neurologically, cardiopulmonary, GI and hepatic and other fronts. Was off pressors the day of the operation. The color of the drainage from the pigtail catheter in the pelvis changed to a brownish/greenish color reminiscent of stool. My worry was that the retracted colostomy was leaking in the abdominal cavity. We already had plans to reexplore the patient to attempt to possibly reconnect her and do a diverting loop ileostomy. I discussed this in detail with the patient's and answered all of his questions to the best my ability. He appeared to understand and agreed with the plans. For a detailed report of my consultation with patient and family, please refer to my separate consultation note. STATEMENT OF THE INFORMED CONSENT: The patient's appeared to understand the risks of the operation to include, but not be limited to risk of postoperative pain and scar tissue, possible infection or bleeding requiring other interventions such as opening the wound, placement of drainage catheters, or other operative interventions; possible injury to surrounding to structures including bowel, bladder, bile duct, or blood vessels, or solid organs such as liver, kidney, or pancreas requiring other interventions or procedures; possible leakage of bowel from anastomotic sites or suture lines causing significant increase in morbidity and mortality and requiring multiple interventions including but not limited to, placement of drainage catheters, imaging studies, as well as operative interventions; possible other source of sepsis such as urinary tract infections or pneumonias, or other sources of potentially life threatening problems such as deep venous thrombus formation causing pulmonary embolism, myocardial arrhythmias and infarctions, and even . We also briefly discussed the potential need to receive blood products and their potential complications of blood transfusion reactions, transmission of infections, or other complications. After careful consideration of all available options, the patient's appeared to understand and wished to proceed with surgery. DESCRIPTION OF PROCEDURE: After obtaining informed consent, the patient was brought into the operating room and was placed in a normal supine position. Patient was already intubated. Intravenous access was already in place. A groin central line and A-line were in place from the ICU. A Shore catheter was already in place as well and an orogastric tube was in placed. Intravenous antimicrobials were ongoing and appropriately dosed prior to skin incision. I placed a [id number] 3-0 silk suture to close the ostomy. We prepped and draped the skin from nipple line down to mid thighs to include the groin in the usual sterrile fashion. We then called a surgical time-out where patient's identification, date of , nature of the operation, allergies, presence of intravenous antimicrobials, presence of needed equipment, and any other concerns were reviewed and agreed upon by all members of the operating room team. We then removed the abdominal fascial sutures with scissors and easily entered the abdominal cavity. We immediately encountered stool. We suctioned off the stool and remove the sutures that were holding the ostomy onto the skin edges and retracted the end of the colon back into the abdominal cavity. We then perform meticulous lavage of the abdominal cavity to clear drainage. I noticed 2 or 3 small areas along the distal transverse colon that appeared to have slight leakage from the areas that appear to be ischemic in nature (only 2-3 mm in greatest size). We placed interrupted 3-0 silk sutures in Lembert fashion to gain control of the leakage. We also placed more 3-0 silk sutures on the edge of the colostomy that also was leaking. This effectively stopped the leakage of stool into the abdominal cavity. We again lavaged abdominal cavity with copious amounts of normal saline and suction off the excess irrigant to clear drainage. I spent a bit of time making an assessment whether reconnecting the patient was possible and whether he was mas to do at this juncture. My main concern was the leakage of stool from the ischemic appearing areas of the distal transverse colon. There appeared to be areas of the colon that were very much and viable in the descending colon, but there were also areas that were slightly on the dusky side. To maximize the degree of safety of the operation, I decided to abandon the attempt to reconnect the patient and do a resection of the distal transverse colon and the remaining descending colon from an area just distal to the middle colic vessels down distally. We used the LigaSure device to come through the mesentery of the colon, obtain circumferential control over the proximal resection margin and transected across the transverse colon with one firing of the bowel (blue) load of the hand -held ARIELLA stapler (75 mm). We also trimmed and resected the omentum from the end of the distal transverse colon to allow us easier ability to do an end colostomy. We accomplished this using the LigaSure device. We also mobilized the hepatic flexure the colon slightly (not completely) in order to be able to perform a tension-free colostomy. We delivered the end of the transverse colon through the previously created defect in the left abdominal wall mid rectus region out of the skin and the colon appeared to stay there without any tension and without retracting back into the abdominal cavity. At this point we ensured adequate hemostasis, suctioned off any excess fluid that we had in the abdominal cavity, and removed all our equipment from the abdominal cavity including the pneumoperitoneum, placed the distal tip of the pigtail catheter back into the pelvis and used this for drainage of this area, closed the midline fascial defect using interrupted [id number] #1 PDS sutures. We then washed the wounds with copious amounts of normal saline. I then matured the colostomy in the usual Kendra fashion by taking the staple line off with cautery and then fixing the size of the bowel onto the skin. I then used 4-0 Monocryl suture to reapproximate the area of the umbilicus and the area slightly around the umbilicus skin area to close this portion to assist with the replacement of the wound VAC as well as the colostomy bag that we fashioned over the colostomy site. Wound VAC appeared to hold suction well. Colostomy bag appliance was then applied. Light dressing was then applied. At the end of the operation, both the sponge count and needle count were reportedly correct x2. The patient tolerated the procedure without any reported complications. ESTIMATED BLOOD LOSS: 50 mL BLOOD OR BLOOD PRODUCT TRANSFUSIONS: None to my knowledge. SPECIMENS: 1. Distal transverse colon along with completion descending colectomy specimen (suture marking the distal margin) COMPLICATIONS: None. DISPOSITION: The patient is to return to the recovery area from where he will be admitted to the hospital for further care. Disclaimer: Inadvertent errors and smelling and grandmother are likely due to EHR/Dragon use. They do not reflect on the quality of the actual delivered patient care. ALEXSANDER DUARTE M.D. Sep 24, 2016 19:32
[2016-09-24 19:57] LABS: ADD SCAN DIFF NO
[2016-09-24 20:00] LABS: ABNORMAL IP MESSAGE 1; HEMATOCRIT 24.3 % (37.0-47.0); HEMOGLOBIN 8.2 g/dl (12.0-16.0); MEAN CORPUSCULAR HEMOGLOBIN 26.5 pg (29.0-33.0); MEAN CORPUSCULAR HGB CONC 33.7 g/dl (32.0-37.0); MEAN CORPUSCULAR VOLUME 78.4 fl (82.0-101.0); MEAN PLATELET VOLUME 10.6 fl (7.4-10.4); PLATELET COUNT 100 10^3/UL (140-415); RED CELL DISTRIBUTION WIDTH 18.9 % (11.5-14.5)
[2016-09-24] MEDS ORDERED: morphine 4 MG/ML VIAL IV PRN (20:00)
[2016-09-24] MEDS ORDERED: morphine 2 MG INJ IV PRN (20:00)
[2016-09-24] MEDS ORDERED: morphine 10 MG INJ IV PRN (20:00)
[2016-09-24] MEDS ORDERED: HYDROmorphONE 1 MG/ML SYG IV PRN ×3 (20:00)
[2016-09-24 20:17] LABS: INR 1.57; PROTIME 18.9 Sec (12.2-14.2); PT RATIO 1.5
[2016-09-24 20:18] LABS: PARTIAL THROMBOPLASTIN TIME 32.6 Sec (25.0-35.0)
[2016-09-24 20:20] LABS: ALBUMIN 1.9 g/dl (3.3-4.9); ALBUMIN/GLOBULIN RATIO 0.79; BILIRUBIN,DIRECT 1.8 mg/dl (0.00-0.20); BILIRUBIN,INDIRECT 0.5 mg/dl (0-1.1); BILIRUBIN,TOTAL 2.3 mg/dl (0.2-1.3); CALCIUM 6.5 mg/dl (8.4-10.2); CREATININE 0.9 mg/dl (0.44-1.00); POTASSIUM 3.3 mmol/L (3.5-5.1); TOTAL PROTEIN 4.3 g/dl (6.1-8.1)
[2016-09-24 20:21] LABS: MAGNESIUM 1.8 mg/dl (1.7-2.5); PHOSPHORUS 5.2 mg/dl (2.5-4.9)
[2016-09-24] MEDS: FLUCONAZOLE 100 MG/NS (PMX) 50 ML IVPB SCH (20:23)
[2016-09-24 20:30] LABS: LYMPHOCYTES # 0.9 10^3/ul (0.8-2.9); MONOCYTE # 0.4 10^3/ul (0.3-0.9); NEUTROPHIL # 9.6 10^3/ul (1.6-7.5)
[2016-09-25] VITALS (33 sets, daily range): BP systolic 92–163; BP diastolic 40–82; PULSE 72–160; RESP 18–32; Ht 165.1 cm; Wt 80.7 kg
[2016-09-25 05:25] LABS: ADD SCAN DIFF NO
[2016-09-25 05:32] LABS: ABNORMAL IP MESSAGE 1; HEMOGLOBIN 7.2 g/dl (12.0-16.0); MEAN CORPUSCULAR HEMOGLOBIN 25.8 pg (29.0-33.0); MEAN CORPUSCULAR HGB CONC 32.7 g/dl (32.0-37.0); MEAN CORPUSCULAR VOLUME 78.9 fl (82.0-101.0); PLATELET COUNT 61 10^3/UL (140-415); RED BLOOD COUNT 2.79 10^6/ul (4.20-5.40); RED CELL DISTRIBUTION WIDTH 18.9 % (11.5-14.5); WHITE BLOOD COUNT 10.8 10^3/ul (4.8-10.8)
[2016-09-25] MEDS: FUROSEMIDE 20 MG INJ IV SCH ×2 (05:37→18:19)
[2016-09-25] MEDS: MEROPENEM 500MG/50 ML (PMX) 50 ML IVPB SCH ×3 (05:38→21:22)
[2016-09-25 06:00] LABS: CALCIUM 6.4 mg/dl (8.4-10.2); CREATININE 0.91 mg/dl (0.44-1.00); MAGNESIUM 1.9 mg/dl (1.7-2.5); PHOSPHORUS 5.3 mg/dl (2.5-4.9); POTASSIUM 3.2 mmol/L (3.5-5.1)
[2016-09-25 06:09] LABS: INR 1.7; PROTIME 20.1 Sec (12.2-14.2); PT RATIO 1.6
[2016-09-25] MEDS: VANCOMYCIN 500MG/NS (PMX) 100 ML IVPB SCH (06:23)
[2016-09-25] MEDS: PROPOFOL 100 ML IV SCH (06:23)
[2016-09-25] MEDS ORDERED: POTASSIUM CHLORIDE 250 ML IVPB ONE ×2 (07:00→15:30)
--- NOTE | 2016-09-25 07:03 | PN ---
Date/Time of Note Date/Time of Note DATE: 09/25/16 TIME: 07:00 Assessment/Plan VTE Prophylaxis VTE Prophylaxis Intervention: other Lines/Catheters IV Catheter Type (from Nrsg): Central Line Central line still needed: Yes Urinary Cath still in place: Yes Reason Cath still needed: other (indicate) Assessment/Plan Chief Complaint/Hosp Course 1. Nonoliguric acute kidney injury. Etiology secondary ATN -Renal function slowly been improving with supportive care continue current treatment plan renally dose meds avoid nephrotoxins - 2. Hypernatremia Improving -Continue water flushes 3. Anemia Monitor H&H levels 4. Mineral bone disorder Monitor calcium phosphorus levels 5. Lactic acidosis secondary to shock Improving -Continue to monitor 6. Sepsis status post shock -Continue antibiotic regimen, -Cultures have been reviewed 7. 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 -Continue treatment plan -Follow-up with surgery 8. Ventilator dependent respiratory failure events has been reviewed ABGs reviewed follow-up with pulmonary 9. Volume overload/anasarca -Patient on intermittent diuretic therapy monitor hemodynamics and blood pressure 10. History of intracranial hemorrhage in the past status post EXPRESSIVE ART THERAPIST shunt placement that has been stable over time -EXPRESSIVE ART THERAPIST shunt was externalized during the surgery September 21, 2016 due to abdominal infection, per neurosurgical notes may need to be reconnected once patient stable versus removed 11. Hypokalemia Replete with potassium chloride Problems: Subjective 24 Hr Interval Summary Free Text/Dictation Patient is critically ill. Off pressure support. Urinary output has been adequate Exam/Review of Systems Vital Signs Vitals Vital Signs Date Time Temp Pulse Resp B/P Pulse Ox O2 Delivery O2 Flow Rate FiO2 09/25/16 06:00 83 18 109/61 100 Mechanical Ventilator 09/25/16 05:22 60 09/25/16 04:00 98.0 Intake and Output 09/24/16 09/24/16 09/25/16 15:00 23:00 07:00 Intake Total 255.091 ml 875.026 ml 126.802 ml Output Total 919 ml 774 ml 1230 ml Balance -663.909 ml 101.026 ml -1103.198 ml Exam EENT: Normal cephalic atraumatic Neck: Supple Lungs: Coarse breath sounds bilateral Heart: Sinus tachycardia Abdomen: Positive ostomy, Extremities: Normal to inspection, no edema no cyanosis Neurologic: Limited exam Results Result Diagram: 09/25/16 0400 09/25/16 0400 Results 24 hrs Laboratory Tests Test 09/24/16 19:50 09/25/16 04:00 09/25/16 05:17 White Blood Count 11.0 H 10.8 Red Blood Count 3.10 L 2.79 L Hemoglobin 8.2 L 7.2 L Hematocrit 24.3 L 22.0 L Mean Corpuscular Volume 78.4 L 78.9 L Mean Corpuscular Hemoglobin 26.5 L 25.8 L Mean Corpuscular Hemoglobin Concent 33.7 32.7 Red Cell Distribution Width 18.9 H 18.9 H Platelet Count 100 #L 61 #L Mean Platelet Volume 10.6 H Neutrophils % 87.0 H Band Neutrophils % 1.0 Lymphocytes % 8.0 L Monocytes % 4.0 Eosinophils % Neutrophils # 9.6 H Lymphocytes # 0.9 Monocytes # 0.4 Eosinophils # Prothrombin Time 18.9 H 20.1 H Prothrombin Time Ratio 1.5 1.6 INR International Normalized Ratio 1.57 1.70 Activated Partial Thromboplast Time 32.6 34.0 Sodium Level 148 H 147 H Potassium Level 3.3 L 3.2 L Chloride Level 108 106 Carbon Dioxide Level 26 28 Anion Gap 17 H 16 Blood Urea Nitrogen 36 H 35 H Creatinine 0.90 0.91 Glucose Level 101 105 Lactic Acid Level 2.2 *H 1.7 Calcium Level 6.5 L 6.4 L Phosphorus Level 5.2 H 5.3 H Magnesium Level 1.8 1.9 Total Bilirubin 2.3 H Direct Bilirubin 1.80 H Indirect Bilirubin 0.5 Aspartate Amino Transf (AST/SGOT) 60 H Alanine Aminotransferase (ALT/SGPT) 68 Alkaline Phosphatase 113 Total Protein 4.3 L Albumin 1.9 L Globulin 2.40 Albumin/Globulin Ratio 0.79 Vancomycin Level Trough 14.5 Lab Scanned Report BLOOD TRANSFUSION Medications Medications Current Medications Morphine Sulfate (morphine) 2 mg Q4H PRN IV PAIN Last administered on 06:26; Admin Dose 2 MG; Start 09/15/16 at 23:30 Ondansetron HCl (Zofran Inj) 4 mg Q6H PRN IV NAUSEA AND/OR VOMITING Last administered on 09/20/16 21:11; Admin Dose 4 MG; Start 09/16/16 at 00:30 Acetaminophen (Tylenol Tab) 650 mg Q6H PRN PO PAIN LEVEL 1-3 OR FEVER Last administered on 09/17/16 10:06; Admin Dose 650 MG; Start 09/16/16 at 00:30 Polyethylene Glycol 17 gm 17 gm DAILY PO Last administered on 09/24/16 09:26; Admin Dose 17 GM; Start 09/20/16 at 11:00 Meropenem/Sodium Chloride 50 ml @ 200 mls/hr Q8 IVPB Last administered on 09/25 05:38; Admin Dose 200 MLS/HR; Start 09/20/16 at 22:00 Fluconazole/ Sodium Chloride 50 ml @ 50 mls/hr Q24H IVPB Last administered on 20:23; Admin Dose 50 MLS/HR; Start 09/20/16 at 16:30 Vancomycin HCl 100 ml @ 100 mls/hr Q12H IVPB Last administered on 09/25/16 06 :23; Admin Dose 100 MLS/HR; Start 09/21/16 at 06:00 Norepinephrine 16 mg/Dextrose 500 ml @ 1.87 mls/hr TITRATE IV Last administered on 09/22/16 04:08; Admin Dose 56.25 MLS/HR; Start 09/21/16 at 09: 00 Pantoprazole 80 mg/Sodium Chloride 100 ml @ 10 mls/hr Q10H IV Last administered on 09/24/16 22:16; Admin Dose 10 MLS/HR; Start 09/21/16 at 02:15 Propofol (Diprivan) 100 ml @ 1.671 mls/ hr Q12H IV Last administered on 06:23; Admin Dose 6.684 MLS/HR; Start 09/21/16 at 02:30 Acetaminophen/ Hydrocodone Bitart ([place] (5/325)) 1 tab Q4H PRN PO PAIN LEVEL 4 -7; Start 09/21/16 at 15:00 Acetaminophen/ Hydrocodone Bitart ([place] (5/325)) 2 tab Q4H PRN PO PAIN LEVEL 7 -10; Start 09/21/16 at 15:00 Hydromorphone HCl (Dilaudid) 0.5 mg Q2H PRN IV PAIN; Start 09/21/16 at 15:00 Hydromorphone HCl (Dilaudid) 1 mg Q2H PRN IV PAIN Last administered on 00:11; Admin Dose 1 MG; Start 09/21/16 at 15:00 Docusate Sodium (Colace) 100 mg BID PRN PO CONSTIPATION; Start 09/21/16 at 15: 00 Enoxaparin Sodium (Lovenox) 40 mg DAILY SC ; Start 09/22/16 at 09:00; Status Future Hold Docusate Sodium (Colace Liquid Cup) 100 mg BID NGT Last administered on 20:28; Admin Dose 100 MG; Start 09/22/16 at 21:00 KIRAN CASTILLO DO Sep 25, 2016 07:03
--- NOTE | 2016-09-25 07:13 | RADRPT ---
PROCEDURE: XR Chest. CLINICAL INDICATION: Shortness of breath. TECHNIQUE: Single frontal view. COMPARISON: 09/24/2016. FINDINGS: The endotracheal tube and nasogastric tube are in satisfactory position. There is bilateral pulmonar y air space disease consistent with pulmonary edema or bilateral pneumonia, slightly improved. A rig ht subclavian vein catheter is present with the tip in the right internal jugular vein. The heart size is mildly enlarged. There is calcification in the aorta consistent with atheroscleros is. There are small bilateral pleural effusions. There is no pneumothorax. IMPRESSION: 1. Right subclavian vein catheter tip in the right internal jugular vein. Referring physician is drake carranza. 2. Slightly improved pulmonary edema. 3. No other change from 09/24/2016. RPTAT: QQ .Beto Cortes MD, Date Time Electronically viewed and signed by .Beto Cortes MD, on 09/25/2016 07:13 .R/
[2016-09-25 07:42] LABS: ALBUMIN 1.7 g/dl (3.3-4.9); ALBUMIN/GLOBULIN RATIO 0.8; BILIRUBIN,INDIRECT 0.4 mg/dl (0-1.1); BILIRUBIN,TOTAL 1.4 mg/dl (0.2-1.3); CALCIUM 6.7 mg/dl (8.4-10.2); CREATININE 0.87 mg/dl (0.44-1.00); POTASSIUM 3.1 mmol/L (3.5-5.1); TOTAL PROTEIN 3.8 g/dl (6.1-8.1)
[2016-09-25 08:15] LABS: AADO2 Arterial 271.4 mmHg (7.0-24.0); Arterial COHb 0.1 % (0.0-3.0); Arterial Fraction of Oxyhgb 96.5 % (93.0-99.0); Arterial HCO3 26.3 mmol/L (22.0-26.0); Arterial MetHb 0.7 % (0.0-1.5); Arterial Total Hemglobin 6.9 g/dl (12.0-18.0); MODE VENT - AC
--- NOTE | 2016-09-25 08:47 | CONS ---
Date/Time of Note Date/Time of Note DATE: 09/25/16 TIME: 08:44 Assessment/Plan Assessment/Plan Chief Complaint/Hosp Course Acute diastolic heart failure: Secondary to volume resuscitation in setting of low albumin and third spacing. CXR worse now and with significant anasarca. Improving SVT: ~20 beats 09/25. Likely AT Septic shock: from intraabdominal abscess and possible infected LASER OPERATOR shunt. S/p sigmoid colectomy. Now off levophed and lactate improved Acute respiratory failure: Due to septic shock, severe metabolic acidosis as well as pulm edema NSTEMI: Trop mildly elevated likely type II in the setting of septic shock. Echo from 09/18 showed normal EF and no significant valvular disease. Repeat trop normalized Diverticulitis complicated by abscess s/p sigmoid colectomy and now colostomy Coagulopathy: ?DIC. Resolved h/o ICH with LASER OPERATOR shunt -continue lasix 20mg IV BID for slow diuresis -no ASA with anemia, coagulopathy and low suspicion for CAD Problems: Consultation Date/Type/Reason Admit Date/Time Sep 15, 2016 at 21:35 Initial Consult Date 09/21/16 Type of Consultation: Cardiology Referring Provider: AUNDREA ARMENDARIZ 24 HR Interval Summary Free Text/Dictation Had repeat surgery yesterday. Otherwise doing well, off pressors. 20 beats of SVT, likely AT last night Exam/Review of Systems Vital Signs Vitals Vital Signs Date Time Temp Pulse Resp B/P Pulse Ox O2 Delivery O2 Flow Rate FiO2 09/25/16 06:00 83 18 109/61 100 Mechanical Ventilator 09/25/16 05:22 60 09/25/16 04:00 98.0 Intake and Output 09/24/16 09/24/16 09/25/16 15:00 23:00 07:00 Intake Total 255.091 ml 875.026 ml 126.802 ml Output Total 919 ml 774 ml 1230 ml Balance -663.909 ml 101.026 ml -1103.198 ml Exam Constitutional: alert, No distress Head: atraumatic, normocephalic Neck: jvd (9cm) Respiratory: diminished breath sounds, No clear to auscultation Cardiovascular: edema (2+), regular rate and rhythm, No systolic murmur Gastrointestinal: non-tender, soft Neurological: nl mental status, nl speech Results Result Diagram: 09/25/16 0400 09/25/16 0400 Results 24 hrs Laboratory Tests Test 09/24/16 19:50 09/25/16 04:00 09/25/16 05:17 09/25/16 07:00 White Blood Count 11.0 H 10.8 Red Blood Count 3.10 L 2.79 L Hemoglobin 8.2 L 7.2 L Hematocrit 24.3 L 22.0 L Mean Corpuscular Volume 78.4 L 78.9 L Mean Corpuscular Hemoglobin 26.5 L 25.8 L Mean Corpuscular Hemoglobin Concent 33.7 32.7 Red Cell Distribution Width 18.9 H 18.9 H Platelet Count 100 #L 61 #L Mean Platelet Volume 10.6 H Neutrophils % 87.0 H Band Neutrophils % 1.0 Lymphocytes % 8.0 L Monocytes % 4.0 Eosinophils % Neutrophils # 9.6 H Lymphocytes # 0.9 Monocytes # 0.4 Eosinophils # Prothrombin Time 18.9 H 20.1 H Prothrombin Time Ratio 1.5 1.6 INR International Normalized Ratio 1.57 1.70 Activated Partial Thromboplast Time 32.6 34.0 Sodium Level 148 H 146 H Potassium Level 3.3 L 3.1 L Chloride Level 108 105 Carbon Dioxide Level 26 29 Anion Gap 17 H 15 Blood Urea Nitrogen 36 H 37 H Creatinine 0.90 0.87 Glucose Level 101 103 Lactic Acid Level 2.2 *H 1.7 Calcium Level 6.5 L 6.7 L Phosphorus Level 5.2 H 5.3 H Magnesium Level 1.8 1.9 Total Bilirubin 2.3 H 1.4 H Direct Bilirubin 1.80 H 1.00 #H Indirect Bilirubin 0.5 0.4 Aspartate Amino Transf (AST/SGOT) 60 H 41 Alanine Aminotransferase (ALT/SGPT) 68 58 Alkaline Phosphatase 113 102 Total Protein 4.3 L 3.8 L Albumin 1.9 L 1.7 L Globulin 2.40 2.10 Albumin/Globulin Ratio 0.79 0.80 B-Type Natriuretic Peptide 2610 H Vancomycin Level Trough 14.5 Lab Scanned Report BLOOD TRANSFUSION Blood Gas Specimen Source Blood arterial Arterial Blood Date Drawn 09/25/2016 7:45:21 AM Arterial Blood pH (Temp corrected) 7.504 H Arterial Blood pCO2 (Temp correct) 34.2 L Arterial Blood pO2 (Temp corrected) 118.8 H Arterial Blood HCO3 26.3 H Arterial Blood Base Excess 3.0 Arterial Blood Oxygen Saturation 97.3 Cain Test N/A Arterial Blood Gas Puncture Site A-Line Arterial Blood Carboxyhemoglobin 0.1 Arterial Blood Methemoglobin 0.7 Blood Gas A-a O2 Differential 271.4 H Oxyhemoglobin Percent 96.5 Total Hemoglobin 6.9 L Blood Gas Temperature 37.0 Blood Gas Respiration Rate 18.0 Blood Gas Actual Respiration Rate 19 Blood Gas Modality VENT - AC FiO2 60.0 Blood Gas Tidal Volume 500.0 Blood Gas Low PEEP Setting 5.0 Blood Gas Critical Value Read Back Kathryn ESPINOZA RN Blood Gas Notified Whom YOANNA Blood Gas Notified Time 09/25/2016 8:15:28 AM Medications Medications Current Medications Morphine Sulfate (morphine) 2 mg Q4H PRN IV PAIN Last administered on 06:26; Admin Dose 2 MG; Start 09/15/16 at 23:30 Ondansetron HCl (Zofran Inj) 4 mg Q6H PRN IV NAUSEA AND/OR VOMITING Last administered on 09/20/16 21:11; Admin Dose 4 MG; Start 09/16/16 at 00:30 Acetaminophen (Tylenol Tab) 650 mg Q6H PRN PO PAIN LEVEL 1-3 OR FEVER Last administered on 09/17/16 10:06; Admin Dose 650 MG; Start 09/16/16 at 00:30 Polyethylene Glycol 17 gm 17 gm DAILY PO Last administered on 09/24/16 09:26; Admin Dose 17 GM; Start 09/20/16 at 11:00 Meropenem/Sodium Chloride 50 ml @ 200 mls/hr Q8 IVPB Last administered on 09/25 05:38; Admin Dose 200 MLS/HR; Start 09/20/16 at 22:00 Fluconazole/ Sodium Chloride 50 ml @ 50 mls/hr Q24H IVPB Last administered on 20:23; Admin Dose 50 MLS/HR; Start 09/20/16 at 16:30 Vancomycin HCl 100 ml @ 100 mls/hr Q12H IVPB Last administered on 09/25/16 06 :23; Admin Dose 100 MLS/HR; Start 09/21/16 at 06:00 Norepinephrine 16 mg/Dextrose 500 ml @ 1.87 mls/hr TITRATE IV Last administered on 09/22/16 04:08; Admin Dose 56.25 MLS/HR; Start 09/21/16 at 09: 00 Pantoprazole 80 mg/Sodium Chloride 100 ml @ 10 mls/hr Q10H IV Last administered on 09/24/16 22:16; Admin Dose 10 MLS/HR; Start 09/21/16 at 02:15 Propofol (Diprivan) 100 ml @ 1.671 mls/ hr Q12H IV Last administered on 06:23; Admin Dose 6.684 MLS/HR; Start 09/21/16 at 02:30 Acetaminophen/ Hydrocodone Bitart ([place] (5/325)) 1 tab Q4H PRN PO PAIN LEVEL 4 -7; Start 09/21/16 at 15:00 Acetaminophen/ Hydrocodone Bitart ([place] (5/325)) 2 tab Q4H PRN PO PAIN LEVEL 7 -10; Start 09/21/16 at 15:00 Hydromorphone HCl (Dilaudid) 0.5 mg Q2H PRN IV PAIN; Start 09/21/16 at 15:00 Hydromorphone HCl (Dilaudid) 1 mg Q2H PRN IV PAIN Last administered on 00:11; Admin Dose 1 MG; Start 09/21/16 at 15:00 Docusate Sodium (Colace) 100 mg BID PRN PO CONSTIPATION; Start 09/21/16 at 15: 00 Enoxaparin Sodium (Lovenox) 40 mg DAILY SC ; Start 09/22/16 at 09:00; Status Future Hold Docusate Sodium 100 mg 100 mg BID NGT Last administered on 09/24/16 20:28; Admin Dose 100 MG; Start 09/22/16 at 21:00 Potassium Chloride (KCl 40 MEQ/250 ML NS) 250 ml @ 62.5 mls/hr ONCE ONCE IVPB Last administered on 09/25/16 08:07; Admin Dose 62.5 MLS/HR; Start 09/25/16 at 07:00; Stop 09/25/16 at 10:59 GUSTAVO RAMON Sep 25, 2016 08:46
[2016-09-25] MEDS: POLYETHYLENE GLYCOL 17 GM PACKET PO SCH (09:25)
[2016-09-25] MEDS: DOCUSATE SODIUM 10 MG/ML (10ML CUP) NGT SCH ×2 (09:25→21:22)
[2016-09-25] MEDS: PANTOPRAZOLE IV 80 MG in SOD CHLORIDE 0.9% 100 ML IV SCH (09:25)
[2016-09-25] MEDS ORDERED: LIDOCAINE 1% (MPF) 5 ML VIAL SC ONE (09:30)
--- NOTE | 2016-09-25 10:34 | CONS ---
Date/Time of Note Date/Time of Note DATE: 09/25/16 TIME: 10:30 Assessment/Plan Assessment/Plan Chief Complaint/Hosp Course No acute changes overnight. Patient is intubated sedated, looks comfortable Temperature 98.4 pulse 72 respirations 18 blood pressure 92/44 saturation 99 on 60 FiO2 WBC 10.8 H&H 7.2 and 22 platelets 61 BN 37 creatinine 0.87 lactic acid 1.7 Chest x-ray this morning revealed slightly improved pulmonary edema Indwelling: Endotracheal tube NG tube right subclavian triple-lumen catheter left radial A-line [place] catheter ventriculostomy Allergies: Penicillins Antibiotics: Vancomycin, fluconazole, meropenem Physical elimination: Well-developed well-nourished elderly woman who is intubated sedated, in no distress. Normocephalic sclera nonicteric. Bugle mucosa dry. Neck is supple, trachea midline. Chest rise symmetrical breath sounds diminished to bases. Heart: S1-S2. Abdomen distended, soft, bowel tones hypoactive. Extremities without cyanosis, with trace 1+ edema bilateral lower extremities. Skin: Pale with anasarca. Assessment: 1. S/p septic shock, off pressors 2. Perforated sigmoid colon status post colectomy with end colostomy and lysis of adhesions on September 21, 2016, status post abdominal lavage and lysis of adhesions and resection of distal transverse colon 09/24/16 3. Status post externalization of ASSISTANT GM OF CONTENT & DELIVERY shunt on September 21, 2016 4. Acute renal failure 5. Transaminitis, improving 6. Acute respiratory failure requiring intubation 7. Healthcare associated pneumonia, possibly aspiration Plan: Remains hemodynamically stable, continue antibiotics, vent management per pulmonary, follow recommendations of consultants Discussed with staff Discussed with Dr. Aries Maldonado Problems: Consultation Date/Type/Reason Admit Date/Time Sep 15, 2016 at 21:35 Type of Consultation: id Referring Provider: AUNDREA ARMENDARIZ Exam/Review of Systems Vital Signs Vitals Vital Signs Date Time Temp Pulse Resp B/P Pulse Ox O2 Delivery O2 Flow Rate FiO2 09/25/16 08:30 40 09/25/16 08:00 98.4 72 18 92/44 99 Mechanical Ventilator Intake and Output 09/24/16 09/24/16 09/25/16 15:00 23:00 07:00 Intake Total 255.091 ml 875.026 ml 143.486 ml Output Total 919 ml 774 ml 1255 ml Balance -663.909 ml 101.026 ml -1111.514 ml Results Result Diagram: 09/25/16 0400 09/25/16 0400 Results 24 hrs Laboratory Tests Test 09/24/16 19:50 09/25/16 04:00 09/25/16 05:17 09/25/16 07:00 White Blood Count 11.0 H 10.8 Red Blood Count 3.10 L 2.79 L Hemoglobin 8.2 L 7.2 L Hematocrit 24.3 L 22.0 L Mean Corpuscular Volume 78.4 L 78.9 L Mean Corpuscular Hemoglobin 26.5 L 25.8 L Mean Corpuscular Hemoglobin Concent 33.7 32.7 Red Cell Distribution Width 18.9 H 18.9 H Platelet Count 100 #L 61 #L Mean Platelet Volume 10.6 H Neutrophils % 87.0 H Band Neutrophils % 1.0 Lymphocytes % 8.0 L Monocytes % 4.0 Eosinophils % Neutrophils # 9.6 H Lymphocytes # 0.9 Monocytes # 0.4 Eosinophils # Prothrombin Time 18.9 H 20.1 H Prothrombin Time Ratio 1.5 1.6 INR International Normalized Ratio 1.57 1.70 Activated Partial Thromboplast Time 32.6 34.0 Sodium Level 148 H 146 H Potassium Level 3.3 L 3.1 L Chloride Level 108 105 Carbon Dioxide Level 26 29 Anion Gap 17 H 15 Blood Urea Nitrogen 36 H 37 H Creatinine 0.90 0.87 Glucose Level 101 103 Lactic Acid Level 2.2 *H 1.7 Calcium Level 6.5 L 6.7 L Phosphorus Level 5.2 H 5.3 H Magnesium Level 1.8 1.9 Total Bilirubin 2.3 H 1.4 H Direct Bilirubin 1.80 H 1.00 #H Indirect Bilirubin 0.5 0.4 Aspartate Amino Transf (AST/SGOT) 60 H 41 Alanine Aminotransferase (ALT/SGPT) 68 58 Alkaline Phosphatase 113 102 Total Protein 4.3 L 3.8 L Albumin 1.9 L 1.7 L Globulin 2.40 2.10 Albumin/Globulin Ratio 0.79 0.80 B-Type Natriuretic Peptide 2610 H Vancomycin Level Trough 14.5 Lab Scanned Report BLOOD TRANSFUSION Blood Gas Specimen Source Blood arterial Arterial Blood Date Drawn 09/25/2016 7:45:21 AM Arterial Blood pH (Temp corrected) 7.504 H Arterial Blood pCO2 (Temp correct) 34.2 L Arterial Blood pO2 (Temp corrected) 118.8 H Arterial Blood HCO3 26.3 H Arterial Blood Base Excess 3.0 Arterial Blood Oxygen Saturation 97.3 Cain Test N/A Arterial Blood Gas Puncture Site A-Line Arterial Blood Carboxyhemoglobin 0.1 Arterial Blood Methemoglobin 0.7 Blood Gas A-a O2 Differential 271.4 H Oxyhemoglobin Percent 96.5 Total Hemoglobin 6.9 L Blood Gas Temperature 37.0 Blood Gas Respiration Rate 18.0 Blood Gas Actual Respiration Rate 19 Blood Gas Modality VENT - AC FiO2 60.0 Blood Gas Tidal Volume 500.0 Blood Gas Low PEEP Setting 5.0 Blood Gas Critical Value Read Back Kathryn ESPINOZA RN Blood Gas Notified Whom YOANNA Blood Gas Notified Time 09/25/2016 8:15:28 AM Medications Medications Current Medications Morphine Sulfate (morphine) 2 mg Q4H PRN IV PAIN Last administered on 06:26; Admin Dose 2 MG; Start 09/15/16 at 23:30 Ondansetron HCl (Zofran Inj) 4 mg Q6H PRN IV NAUSEA AND/OR VOMITING Last administered on 09/20/16 21:11; Admin Dose 4 MG; Start 09/16/16 at 00:30 Acetaminophen (Tylenol Tab) 650 mg Q6H PRN PO PAIN LEVEL 1-3 OR FEVER Last administered on 09/17/16 10:06; Admin Dose 650 MG; Start 09/16/16 at 00:30 Polyethylene Glycol 17 gm 17 gm DAILY PO Last administered on 09/25/16 09:25; Admin Dose 17 GM; Start 09/20/16 at 11:00 Meropenem/Sodium Chloride 50 ml @ 200 mls/hr Q8 IVPB Last administered on 09/25 05:38; Admin Dose 200 MLS/HR; Start 09/20/16 at 22:00 Fluconazole/ Sodium Chloride 50 ml @ 50 mls/hr Q24H IVPB Last administered on 20:23; Admin Dose 50 MLS/HR; Start 09/20/16 at 16:30 Vancomycin HCl 100 ml @ 100 mls/hr Q12H IVPB Last administered on 09/25/16 06 :23; Admin Dose 100 MLS/HR; Start 09/21/16 at 06:00 Norepinephrine 16 mg/Dextrose 500 ml @ 1.87 mls/hr TITRATE IV Last administered on 09/22/16 04:08; Admin Dose 56.25 MLS/HR; Start 09/21/16 at 09: 00 Propofol (Diprivan) 100 ml @ 1.671 mls/ hr Q12H IV Last administered on 06:23; Admin Dose 6.684 MLS/HR; Start 09/21/16 at 02:30 Acetaminophen/ Hydrocodone Bitart ([place] (5/325)) 1 tab Q4H PRN PO PAIN LEVEL 4 -7; Start 09/21/16 at 15:00 Acetaminophen/ Hydrocodone Bitart ([place] (5/325)) 2 tab Q4H PRN PO PAIN LEVEL 7 -10; Start 09/21/16 at 15:00 Hydromorphone HCl (Dilaudid) 0.5 mg Q2H PRN IV PAIN; Start 09/21/16 at 15:00 Hydromorphone HCl (Dilaudid) 1 mg Q2H PRN IV PAIN Last administered on 00:11; Admin Dose 1 MG; Start 09/21/16 at 15:00 Docusate Sodium (Colace) 100 mg BID PRN PO CONSTIPATION; Start 09/21/16 at 15: 00 Enoxaparin Sodium (Lovenox) 40 mg DAILY SC ; Start 09/22/16 at 09:00; Status Future Hold Docusate Sodium 100 mg 100 mg BID NGT Last administered on 09/25/16 09:25; Admin Dose 100 MG; Start 09/22/16 at 21:00 Potassium Chloride (KCl 40 MEQ/250 ML NS) 250 ml @ 62.5 mls/hr ONCE ONCE IVPB Last administered on 09/25/16 08:07; Admin Dose 62.5 MLS/HR; Start 09/25/16 at 07:00; Stop 09/25/16 at 10:59 Pantoprazole (Protonix Iv) 40 mg DAILY@06 IV ; Start 09/26/16 at 06:00 CORINA ESTRELLA NP Sep 25, 2016 10:33
[2016-09-25 12:10] LABS: HYPOCHROMASIA 1+; LYMPHOCYTES # 0.8 10^3/ul (0.8-2.9); MONOCYTE # 0.2 10^3/ul (0.3-0.9); MYELOCYTES # 0.3; OVALOCYTES 1+
--- NOTE | 2016-09-25 12:53 | RADRPT ---
PROCEDURE: CT Brain without contrast. CLINICAL INDICATION: hydrocephalus; Neurologic deficit TECHNIQUE: A CT of the brain was performed on multidetector high-resolution CT scanner utilizing a xial sections from the skull base through the vertex without contrast. One or more of the following dose reduction techniques were used: Automated exposure control, Adjustment of the mA and/or kV acc ording to patient size, and/or use of iterative reconstruction technique. DOSE: CTDI = 45 mGy and the DLP = 720 mGy-cm. COMPARISON: None available FINDINGS: No acute intracranial hemorrhage or midline shift. Patchy hypoattenuation of the cerebral white vidal er is compatible with chronic microvascular ischemic changes. Vascular calcifications. Confluent whi te matter hypoattenuation with calcifications in the right posterior temporal lobe. Right transfron lisa ventricular shunt tip in the region of the right foramen of [place]. Mild prominence of the ventri cles with bifrontal horn diameter measuring 34 mm and transverse diameter of the third ventricle michael suring 7 mm. Prominence of the cortical sulci and ventricles are related to mild cerebral volume lo ss. Partially imaged postoperative changes of paranasal sinus disease with sinus mucosal thickening and nasal tube seen. IMPRESSION: No acute intracranial hemorrhage or midline shift. Chronic microvascular disease and intracranial atherosclerosis. Right transfrontal ventricular shunt tip in the region of the right foramen of [place]. Mild prominenc e of the lateral and third ventricles. Correlation with prior imaging would be helpful. Confluent white matter hypoattenuation with calcifications in the right posterior temporal lobe. Rec ommend correlation with patient history. If warranted, consider follow-up MRI. RPTAT: AA .Constantino Cedillo MD, Date Time Electronically viewed and signed by .Constantino Cedillo MD, MD on 09/25/2016 12:53 .T/
--- NOTE | 2016-09-25 14:11 | CONS ---
Date/Time of Note Date/Time of Note DATE: 09/25/16 TIME: 14:10 Consult Date/Type/Reason Admit Date/Time Sep 15, 2016 at 21:35 Initial Consult Date 09/21/16 Type of Consultation: Pulmonary Ordering Provider: AUNDREA ARMENDARIZ Subjective Patient stable following repeat bowel resection yesterday. Awake alert comfortable no vasopressors, decrease FiO2. Objective Vital Signs Date Time Temp Pulse Resp B/P Pulse Ox O2 Delivery O2 Flow Rate FiO2 09/25/16 12:00 80 09/25/16 11:00 23 95/54 94 Mechanical Ventilator 09/25/16 08:30 40 09/25/16 08:00 98.4 Intake and Output 09/24/16 09/24/16 09/25/16 14:59 22:59 06:59 Intake Total 276.788 ml 835.026 ml 186.802 ml Output Total 1029 ml 714 ml 1330 ml Balance -752.212 ml 121.026 ml -1143.198 ml Exam GENERAL: Intubated sedated on mechanical ventilation VITAL SIGNS: per chart NECK: Supple. No JVD or lymphadenopathy. CARDIAC EXAM: S1, S2. No added sounds or murmurs. CHEST: diminished air entry bilaterally with rales ABDOMEN: Decreased bowel sounds but no guarding or rebound EXTREMITIES: No cyanosis, clubbing, edema +1 NEUROLOGIC: Generalized weakness. Results/Medications Result Diagram: 09/25/16 0400 09/25/16 0400 Results 24 hrs Laboratory Tests Test 09/24/16 19:50 09/25/16 04:00 09/25/16 05:17 09/25/16 07:00 White Blood Count 11.0 H 10.8 Red Blood Count 3.10 L 2.79 L Hemoglobin 8.2 L 7.2 L Hematocrit 24.3 L 22.0 L Mean Corpuscular Volume 78.4 L 78.9 L Mean Corpuscular Hemoglobin 26.5 L 25.8 L Mean Corpuscular Hemoglobin Concent 33.7 32.7 Red Cell Distribution Width 18.9 H 18.9 H Platelet Count 100 #L 61 #L Mean Platelet Volume 10.6 H Neutrophils % 87.0 H 83.0 H Band Neutrophils % 1.0 3.0 Lymphocytes % 8.0 L 7.0 L Monocytes % 4.0 2.0 Eosinophils % Neutrophils # 9.6 H 9.0 H Lymphocytes # 0.9 0.8 Monocytes # 0.4 0.2 L Eosinophils # Prothrombin Time 18.9 H 20.1 H Prothrombin Time Ratio 1.5 1.6 INR International Normalized Ratio 1.57 1.70 Activated Partial Thromboplast Time 32.6 34.0 Sodium Level 148 H 146 H Potassium Level 3.3 L 3.1 L Chloride Level 108 105 Carbon Dioxide Level 26 29 Anion Gap 17 H 15 Blood Urea Nitrogen 36 H 37 H Creatinine 0.90 0.87 Glucose Level 101 103 Lactic Acid Level 2.2 *H 1.7 Calcium Level 6.5 L 6.7 L Phosphorus Level 5.2 H 5.3 H Magnesium Level 1.8 1.9 Total Bilirubin 2.3 H 1.4 H Direct Bilirubin 1.80 H 1.00 #H Indirect Bilirubin 0.5 0.4 Aspartate Amino Transf (AST/SGOT) 60 H 41 Alanine Aminotransferase (ALT/SGPT) 68 58 Alkaline Phosphatase 113 102 Total Protein 4.3 L 3.8 L Albumin 1.9 L 1.7 L Globulin 2.40 2.10 Albumin/Globulin Ratio 0.79 0.80 Metamyelocytes % 2.0 H Myelocytes % 3.0 H Metamyelocytes # 0.2 Myelocytes # 0.3 Hypochromasia 1+ Ovalocytes 1+ B-Type Natriuretic Peptide 2610 H Vancomycin Level Trough 14.5 Lab Scanned Report BLOOD TRANSFUSION Blood Gas Specimen Source Blood arterial Arterial Blood Date Drawn 09/25/2016 7:45:21 AM Arterial Blood pH (Temp corrected) 7.504 H Arterial Blood pCO2 (Temp correct) 34.2 L Arterial Blood pO2 (Temp corrected) 118.8 H Arterial Blood HCO3 26.3 H Arterial Blood Base Excess 3.0 Arterial Blood Oxygen Saturation 97.3 Cain Test N/A Arterial Blood Gas Puncture Site A-Line Arterial Blood Carboxyhemoglobin 0.1 Arterial Blood Methemoglobin 0.7 Blood Gas A-a O2 Differential 271.4 H Oxyhemoglobin Percent 96.5 Total Hemoglobin 6.9 L Blood Gas Temperature 37.0 Blood Gas Respiration Rate 18.0 Blood Gas Actual Respiration Rate 19 Blood Gas Modality VENT - AC FiO2 60.0 Blood Gas Tidal Volume 500.0 Blood Gas Low PEEP Setting 5.0 Blood Gas Critical Value Read Back Kathryn ESPINOZA RN Blood Gas Notified Whom JLD Blood Gas Notified Time 09/25/2016 8:15:28 AM Medications Current Medications Morphine Sulfate (morphine) 2 mg Q4H PRN IV PAIN Last administered on 06:26; Admin Dose 2 MG; Start 09/15/16 at 23:30 Ondansetron HCl (Zofran Inj) 4 mg Q6H PRN IV NAUSEA AND/OR VOMITING Last administered on 09/20/16 21:11; Admin Dose 4 MG; Start 09/16/16 at 00:30 Acetaminophen (Tylenol Tab) 650 mg Q6H PRN PO PAIN LEVEL 1-3 OR FEVER Last administered on 09/17/16 10:06; Admin Dose 650 MG; Start 09/16/16 at 00:30 Polyethylene Glycol 17 gm 17 gm DAILY PO Last administered on 09/25/16 09:25; Admin Dose 17 GM; Start 09/20/16 at 11:00 Meropenem/Sodium Chloride 50 ml @ 200 mls/hr Q8 IVPB Last administered on 09/25 05:38; Admin Dose 200 MLS/HR; Start 09/20/16 at 22:00 Fluconazole/ Sodium Chloride 50 ml @ 50 mls/hr Q24H IVPB Last administered on 20:23; Admin Dose 50 MLS/HR; Start 09/20/16 at 16:30 Norepinephrine 16 mg/Dextrose 500 ml @ 1.87 mls/hr TITRATE IV Last administered on 09/22/16 04:08; Admin Dose 56.25 MLS/HR; Start 09/21/16 at 09: 00 Propofol (Diprivan) 100 ml @ 1.671 mls/ hr Q12H IV Last administered on 06:23; Admin Dose 6.684 MLS/HR; Start 09/21/16 at 02:30 Acetaminophen/ Hydrocodone Bitart ([place] (5/325)) 1 tab Q4H PRN PO PAIN LEVEL 4 -7; Start 09/21/16 at 15:00 Acetaminophen/ Hydrocodone Bitart ([place] (5/325)) 2 tab Q4H PRN PO PAIN LEVEL 7 -10; Start 09/21/16 at 15:00 Hydromorphone HCl (Dilaudid) 0.5 mg Q2H PRN IV PAIN; Start 09/21/16 at 15:00 Hydromorphone HCl (Dilaudid) 1 mg Q2H PRN IV PAIN Last administered on 00:11; Admin Dose 1 MG; Start 09/21/16 at 15:00 Docusate Sodium (Colace) 100 mg BID PRN PO CONSTIPATION; Start 09/21/16 at 15: 00 Enoxaparin Sodium (Lovenox) 40 mg DAILY SC ; Start 09/22/16 at 09:00; Status Future Hold Docusate Sodium (Colace Liquid Cup) 100 mg BID NGT Last administered on 09:25; Admin Dose 100 MG; Start 09/22/16 at 21:00 Pantoprazole 40 mg 40 mg DAILY@06 IV ; Start 09/26/16 at 06:00 Vancomycin HCl (Vancocin) 250 ml @ 125 mls/hr Q12H IVPB ; Start 09/25/16 at 18: 00 IV Flush (NS 10 ml) 10 ml PRN PRN IV IV PROTOCOL; Start 09/25/16 at 12:00 Assessment/Plan Chief Complaint/Hosp Course Assessment 1. Severe sepsis and hypoxemic respiratory failure. Differential includes healthcare associated pneumonia versus aspiration pneumonia. Oxygenation improved currently on 40% FiO2. CPAP trial this morning extubated stable 2. 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 Status post externalization 3. Abdominal abscesses possible peritonitis. Repeat exploratory laparotomy today 4. Severe sepsis with metabolic acidosis clinically improved 5. Postop anemia, hemoglobin 7.2 continue to monitor 6. Electrolyte abnormalities hyperkalemia and hypernatremia Plan 1. Continue mechanical ventilation, will require thoracentesis when more stable pleural fluid studies. CPAP trial 2.' neurosurgery and general surgery recommendations, 3. Continue broad-spectrum antibiotics 4. Trend lactic acid, aggressive fluid resuscitation. Transfusion of packed red blood cells per general surgery. 5. DVT and GI prophylaxis 6. Renal recommendations regarding electrolyte abnormalities, agree with gentle diuresis. Discussed with staff Critical care time 40 minutes. Problems: DAMIEN GUADARRAMA MD, [facility] Sep 25, 2016 14:11
--- NOTE | 2016-09-25 14:14 | RADRPT ---
PROCEDURE: Ultrasound guidance for placement of needle in right upper extremity vein. CLINICAL INDICATION: Venous access. TECHNIQUE: Limited sonography of the right upper extremity was performed. Ultrasound images were recorded and stored in the patient's medical record. COMPARISON: None. FINDINGS: The ultrasound images demonstrate a patent right upper extremity vein. The PICC line was inserted b y the PICC line nurse. IMPRESSION: 1. Ultrasound guidance for a needle placement in a right upper extremity vein. 2. The visualized right upper extremity vein is patent. RPTAT: QQ .Beto Cortes MD, MD Date Time Electronically viewed and signed by .Beto Cortes MD, MD on 09/25/2016 14:13 .R/
--- NOTE | 2016-09-25 14:30 | RADRPT ---
PROCEDURE: XR Chest. CLINICAL INDICATION: Check PICC line position. TECHNIQUE: Single frontal view. COMPARISON: 09/25/2016. FINDINGS: There is a right arm PICC line with the tip in the lower superior vena cava. The endotracheal tube and nasogastric tube remain in satisfactory position. The right subclavian vein catheter tip is in the right internal jugular vein, unchanged. Pulmonary edema is unchanged. The heart is mildly enlarged. There is calcification in the aorta consistent with atherosclerosis. There are small bilateral pleural effusions. There is no pneumothorax. IMPRESSION: 1. Right arm PICC line tip in satisfactory position. 2. Pulmonary edema. 3. No other change from the prior study done earlier the same day. RPTAT: QQ .Beto Cortes MD, MD Date Time Electronically viewed and signed by .Beto Cortes MD, on 09/25/2016 14:30 .R/
[2016-09-25] MEDS ORDERED: CALCIUM GLUCONATE 10% 1 GM in SOD CHLORIDE 0.9% 100 ML IVPB ONE (16:00)
[2016-09-25] MEDS ORDERED: SOD CHLORIDE 0.9% 100 ML ONE (16:25)
--- NOTE | 2016-09-25 16:34 | PN ---
Date/Time of Note Date/Time of Note DATE: 09/25/16 TIME: 16:31 Assessment/Plan VTE Prophylaxis VTE Prophylaxis Intervention: SCD's Assessment/Plan Chief Complaint/Hosp Course 1. Severe sepsis with systemic shock and organ dysfunction 2/2 #2 2. Non resolving diverticulitis with abscess and sigmoid colon perforation * s/p sigmoid colectomy with end colostomy (Reid's procedure) and adhesiolyis on 09/21/16 * Status post completion of hemicolectomy and colostomy placement * Patient also now has wound VAC on anterior abdominal wall 3. Lactic and Metabolic acidosis 2/2 above 4. Mild troponin elevation likely type 2 from #1: trending 5. Acute transaminitis 2/2 shock liver: improving 6. History of intracranial hemorrhage in the past status post MOTOR RUNNER shunt placement that has been stable over time * MOTOR RUNNER shunt was externalized during the surgery September 21, 2016 due to abdominal infection, per neurosurgical notes may need to be reconnected once patient stable versus removed 7. Hypernatremia likely secondary to #1: improved 8. Severe coagulopathy also as a result of #1: improving 9. Iron deficiency hypochromic anemia on iron infusion therapy 10. Diffuse anasarca as well as bilateral pleural effusions likely associated hypoalbuminemia 11. Bilateral pneumonia with vascular congestion concerning for BUD S 12. Acute renal insufficiency secondary to #1 PLAN: * Continue ICU care management * Continue ventilator monitoring and management /follow pulmonary recommendations * Resume tube feeds when stable and if okay with surgery * Continue broad-spectrum antibiotics per ID * Status post blood transfusion, serial labs, electrolytes replacement as indicated * Continue serial lactic acid trend * Patient's management remains dynamic depending on her clinical symptoms and lab findings, she continues require close monitoring, follow-ups and frequent reevaluation * Appreciate all consultants * Further interventions per clinical care Prophylaxis : SCDs / PPI Problems: Subjective 24 Hr Interval Summary Subjective hx not possible: pt non-verbal Exam/Review of Systems Vital Signs Vitals Vital Signs Date Time Temp Pulse Resp B/P Pulse Ox O2 Delivery O2 Flow Rate FiO2 09/25/16 15:00 86 21 110/60 98 Mechanical Ventilator 09/25/16 12:00 98.4 09/25/16 08:30 40 Intake and Output 09/24/16 09/24/16 09/25/16 15:00 23:00 07:00 Intake Total 255.091 ml 875.026 ml 143.486 ml Output Total 919 ml 774 ml 1255 ml Balance -663.909 ml 101.026 ml -1111.514 ml Exam Constitutional: alert, non-verbal ENMT: intubated Respiratory: clear to auscultation Cardiovascular: regular rate and rhythm Gastrointestinal: soft, No distended Musculoskeletal: nl extremities to inspection Results Result Diagram: 09/25/16 0400 09/25/16 0400 Results 24 hrs Laboratory Tests Test 09/24/16 19:50 09/25/16 04:00 09/25/16 05:17 09/25/16 07:00 White Blood Count 11.0 H 10.8 Red Blood Count 3.10 L 2.79 L Hemoglobin 8.2 L 7.2 L Hematocrit 24.3 L 22.0 L Mean Corpuscular Volume 78.4 L 78.9 L Mean Corpuscular Hemoglobin 26.5 L 25.8 L Mean Corpuscular Hemoglobin Concent 33.7 32.7 Red Cell Distribution Width 18.9 H 18.9 H Platelet Count 100 #L 61 #L Mean Platelet Volume 10.6 H Neutrophils % 87.0 H 83.0 H Band Neutrophils % 1.0 3.0 Lymphocytes % 8.0 L 7.0 L Monocytes % 4.0 2.0 Eosinophils % Neutrophils # 9.6 H 9.0 H Lymphocytes # 0.9 0.8 Monocytes # 0.4 0.2 L Eosinophils # Prothrombin Time 18.9 H 20.1 H Prothrombin Time Ratio 1.5 1.6 INR International Normalized Ratio 1.57 1.70 Activated Partial Thromboplast Time 32.6 34.0 Sodium Level 148 H 146 H Potassium Level 3.3 L 3.1 L Chloride Level 108 105 Carbon Dioxide Level 26 29 Anion Gap 17 H 15 Blood Urea Nitrogen 36 H 37 H Creatinine 0.90 0.87 Glucose Level 101 103 Lactic Acid Level 2.2 *H 1.7 Calcium Level 6.5 L 6.7 L Phosphorus Level 5.2 H 5.3 H Magnesium Level 1.8 1.9 Total Bilirubin 2.3 H 1.4 H Direct Bilirubin 1.80 H 1.00 #H Indirect Bilirubin 0.5 0.4 Aspartate Amino Transf (AST/SGOT) 60 H 41 Alanine Aminotransferase (ALT/SGPT) 68 58 Alkaline Phosphatase 113 102 Total Protein 4.3 L 3.8 L Albumin 1.9 L 1.7 L Globulin 2.40 2.10 Albumin/Globulin Ratio 0.79 0.80 Metamyelocytes % 2.0 H Myelocytes % 3.0 H Metamyelocytes # 0.2 Myelocytes # 0.3 Hypochromasia 1+ Ovalocytes 1+ B-Type Natriuretic Peptide 2610 H Vancomycin Level Trough 14.5 Lab Scanned Report BLOOD TRANSFUSION Blood Gas Specimen Source Blood arterial Arterial Blood Date Drawn 09/25/2016 7:45:21 AM Arterial Blood pH (Temp corrected) 7.504 H Arterial Blood pCO2 (Temp correct) 34.2 L Arterial Blood pO2 (Temp corrected) 118.8 H Arterial Blood HCO3 26.3 H Arterial Blood Base Excess 3.0 Arterial Blood Oxygen Saturation 97.3 Cain Test N/A Arterial Blood Gas Puncture Site A-Line Arterial Blood Carboxyhemoglobin 0.1 Arterial Blood Methemoglobin 0.7 Blood Gas A-a O2 Differential 271.4 H Oxyhemoglobin Percent 96.5 Total Hemoglobin 6.9 L Blood Gas Temperature 37.0 Blood Gas Respiration Rate 18.0 Blood Gas Actual Respiration Rate 19 Blood Gas Modality VENT - AC FiO2 60.0 Blood Gas Tidal Volume 500.0 Blood Gas Low PEEP Setting 5.0 Blood Gas Critical Value Read Back Kathryn ESPINOZA RN Blood Gas Notified Whom ZOFIAD Blood Gas Notified Time 09/25/2016 8:15:28 AM Medications Medications Current Medications Morphine Sulfate (morphine) 2 mg Q4H PRN IV PAIN Last administered on 06:26; Admin Dose 2 MG; Start 09/15/16 at 23:30 Ondansetron HCl (Zofran Inj) 4 mg Q6H PRN IV NAUSEA AND/OR VOMITING Last administered on 09/20/16 21:11; Admin Dose 4 MG; Start 09/16/16 at 00:30 Acetaminophen (Tylenol Tab) 650 mg Q6H PRN PO PAIN LEVEL 1-3 OR FEVER Last administered on 09/17/16 10:06; Admin Dose 650 MG; Start 09/16/16 at 00:30 Polyethylene Glycol 17 gm 17 gm DAILY PO Last administered on 09/25/16 09:25; Admin Dose 17 GM; Start 09/20/16 at 11:00 Meropenem/Sodium Chloride 50 ml @ 200 mls/hr Q8 IVPB Last administered on 09/25 14:22; Admin Dose 200 MLS/HR; Start 09/20/16 at 22:00 Fluconazole/ Sodium Chloride 50 ml @ 50 mls/hr Q24H IVPB Last administered on 20:23; Admin Dose 50 MLS/HR; Start 09/20/16 at 16:30 Norepinephrine 16 mg/Dextrose 500 ml @ 1.87 mls/hr TITRATE IV Last administered on 09/22/16 04:08; Admin Dose 56.25 MLS/HR; Start 09/21/16 at 09: 00 Propofol (Diprivan) 100 ml @ 1.671 mls/ hr Q12H IV Last administered on 06:23; Admin Dose 6.684 MLS/HR; Start 09/21/16 at 02:30 Acetaminophen/ Hydrocodone Bitart ([place] (5/325)) 1 tab Q4H PRN PO PAIN LEVEL 4 -7; Start 09/21/16 at 15:00 Acetaminophen/ Hydrocodone Bitart ([place] (5/325)) 2 tab Q4H PRN PO PAIN LEVEL 7 -10; Start 09/21/16 at 15:00 Hydromorphone HCl (Dilaudid) 0.5 mg Q2H PRN IV PAIN; Start 09/21/16 at 15:00 Hydromorphone HCl (Dilaudid) 1 mg Q2H PRN IV PAIN Last administered on 00:11; Admin Dose 1 MG; Start 09/21/16 at 15:00 Docusate Sodium (Colace) 100 mg BID PRN PO CONSTIPATION; Start 09/21/16 at 15: 00 Enoxaparin Sodium (Lovenox) 40 mg DAILY SC ; Start 09/22/16 at 09:00; Status Future Hold Docusate Sodium (Colace Liquid Cup) 100 mg BID NGT Last administered on 09:25; Admin Dose 100 MG; Start 09/22/16 at 21:00 Pantoprazole 40 mg 40 mg DAILY@06 IV ; Start 09/26/16 at 06:00 Vancomycin HCl (Vancocin) 250 ml @ 125 mls/hr Q12H IVPB ; Start 09/25/16 at 18: 00 IV Flush 10 ml 10 ml PRN PRN IV IV PROTOCOL; Start 09/25/16 at 12:00 Potassium Chloride 250 ml @ 62.5 mls/hr ONCE ONCE IVPB Last administered on t 15:49; Admin Dose 62.5 MLS/HR; Start 09/25/16 at 15:30; Stop 09/25/16 at 19:29 Calcium Gluconate/ Sodium Chloride (Ca Gluc/NS) 110 ml @ 110 mls/hr ONCE ONCE IVPB ; Start 09/25/16 at 16:00; Stop 09/25/16 at 16:59 DALE RODARTE Sep 25, 2016 16:34
[2016-09-25] MEDS: FLUCONAZOLE 100 MG/NS (PMX) 50 ML IVPB SCH (16:39)
[2016-09-25 17:09] LABS: AADO2 Arterial 166.6 mmHg (7.0-24.0); Arterial Base Excess 3.9 mmol/L (-3.0-3); Arterial COHb 0.3 % (0.0-3.0); Arterial Fraction of Oxyhgb 92.5 % (93.0-99.0); Arterial HCO3 27.6 mmol/L (22.0-26.0); Arterial MetHb 0.6 % (0.0-1.5); Arterial Total Hemglobin 8.3 g/dl (12.0-18.0); Blood Gas PS 10; MODE VENT - CPAP
[2016-09-25] MEDS: VANCOMYCIN 1 GM in NS 250 ML IVPB SCH (18:19)
[2016-09-25] MEDS: ALBUTEROL/IPRATROPIUM (NEB) 3 ML AMP HHN PRN (19:51)
--- NOTE | 2016-09-25 20:50 | PN ---
Date/Time of Note Date/Time of Note DATE: 09/25/16 TIME: 20:38 Assessment/Plan Assessment/Plan Assessment/Plan [facility] Progress Note Date of Service: 09/25/2016 Place of service: [facility] ICU Today's Assessment & Plan: Overall stable and improving. No further evidence of bowel leak. Ostomy appears viable and no further issues with retraction. Remains off pressors with improvement in all fronts. No indication for acute surgical intervention. With above assessment, I recommended the following for today: 1. Continue aggressive medical management with the goal of weaning patient off of the vent when possible 2. Continue wound VAC at 80 mmHg 3. Cont gentle diuresis 4. Cont gastric trophic feeds at 10 cc/h with plans to start increasing rate by 10 cc per 6 hrs once starts tolerating 5. Labs in am 6. Hold Lovenox until her platelet count is over 100 and her INR is less than 2 Thank you again for your great care of this very pleasant patient and wonderful family. If there are any questions, please feel free to call me at [phone]. Nature of presenting problem: High severity Please note that, given the extensive number of diagnoses or management options , the extensive amount and/or complexity of data needed to be reviewed, and I risk of complications and/or morbidity or mortality, this qualifies as high complexity type of decision-making. Disclaimer: Inadvertent spelling and grammatical errors are likely due to EHR/ dictation software use and do not reflect on the quality of delivered patient care. Also, please note that the electronic time recorded on this node does not necessarily reflect the actual time of the visit. Updated Clinical Summary: A very pleasant 70-year-old lady without significant known past medical history other than a BACKGROUND INVESTIGATOR shunt placement many years ago which she did not remember or report, presenting with what appears to be a sigmoid colon abscess or pericolonic abscess, which seemed to be a complication of diverticulitis. S/p IR drainage 09/09/16 with removal of 20 cc pus and placement of a 10 Fr. pigtail catheter at [facility]. D/c home 09/12/16. Re-presented to [place] ED 09/15/16 after being diverted from [facility] (due to internal disaster diversion) where CT was done showing adequate placement of the percutaneous drain near the sigmoid colon and decompressed sigmoid colon abscess, no obvious free air or significant spillage of stool in the abdominal cavity, and incidental finding of tail of the BACKGROUND INVESTIGATOR shunt in the pelvis (new from right upper quadrant position of the same drain on the CT scan at [facility]). Transfer to [facility] 09/15/2016 for further cares. S/p upsizing of drain to 12 Fr pigtail on 09/17/16 (communication with colon demonstrated; no obvious free communication to rest of peritoneal space). Patient decompensated in the early hours of the morning on 09/21/2016 and had to be transferred to the intensive care unit with need for endotracheal tube intubation, central line placement, and resuscitation for treatment of shock with lactic acidosis and evidence of peritonitis and free air on the new chest, abdomen, and pelvis CT scan. Comorbidities: 1. Perforated sigmoid colon (see below) 2. Status post ventriculoperitoneal shunt placement. 3. Status post prior hysterectomy and bilateral salpingo-oophorectomy through Pfannenstiel incision 4. S/p IR drainage 09/09/16 with removal of 20 cc pus and placement of a 10 Fr. pigtail catheter at [facility]. 5. Readmission to [facility] 09/15/16 with upsizing of drain to 12 Fr pigtail on (communication with colon demonstrated; no obvious free communication to rest of peritoneal space). Septic shock with multiorgan failure 09/21/2016 requiring ICU admission with intubation and pressors. 6. S/p a rather challenging sigmoid colectomy with performance of end colostomy (Reid's procedure), takedown of splenic flexure of the colon, lysis of adhesions (60 minutes), and abdominal lavage at [facility] on 09/21/16 7. Colon ischemia (distal transverse colon and descending colon) 8. S/p reentry through recent laparotomy incision with exploration of abdominal cavity, takedown of colostomy, completion left hemicolectomy with resection of distal transverse colon, lysis of adhesions, abdominal lavage, performance of an end colostomy [facility] 09/24/16 Subjective: No major events or complaints overnight; no obvious abd pain and appears to be under control with medications; no observed or reported n/v/d; no observed or reported sob or cp; + bowel activity; - activity; please note that this is based on nursing observations since the patient is currently intubated, sedated and for the most part noncommunicative. Objective: Vitals: See below I's & O's: See below Exam: GENERAL: On exam, the patient was lying in bed and appeared to be comfortable and in no acute distress. Intubated and on the ventilator. ABDOMEN: Soft, nontender and nondistended. Incision dressings are clean, dry and intact without any obvious evidence of underlying erythema, edema, discharge , or hernia. Surgical drain ss. There are no peritoneal signs or guarding. Ostomy appears to be viable and productive with stool and air in the bag. SKIN: Skin appears to be pink and feels warm to touch. NEUROLOGIC: Patient is arousable to voice and follows very simple commands. Labs: See below Exam/Review of Systems Vital Signs Vitals Vital Signs Date Time Temp Pulse Resp B/P Pulse Ox O2 Delivery O2 Flow Rate FiO2 09/25/16 20:28 100 100 70 09/25/16 19:57 10.0 09/25/16 19:52 34 Simple Mask 09/25/16 19:00 157/70 09/25/16 16:00 98.6 Intake and Output 09/24/16 09/24/16 09/25/16 15:00 23:00 07:00 Intake Total 255.091 ml 875.026 ml 143.486 ml Output Total 919 ml 774 ml 1255 ml Balance -663.909 ml 101.026 ml -1111.514 ml Results Result Diagram: 09/25/16 0400 09/25/16 0400 ALEXSANDER DUARTE M.D. Sep 25, 2016 20:50
[2016-09-26] VITALS (47 sets, daily range): BP systolic 102–156; BP diastolic 56–89; PULSE 77–184; RESP 14–48
[2016-09-26 05:31] LABS: ADD SCAN DIFF NO
[2016-09-26 05:36] LABS: ABNORMAL IP MESSAGE 1; BASOPHILS % 0.2 % (0.0-2.0); ERYTHROBLAST% (NRBC) (M) 0.4 /100WBC (0.0-0.0); HEMOGLOBIN 7.5 g/dl (12.0-16.0); LYMPHOCYTES # 0.5 10^3/ul (0.8-2.9); LYMPHOCYTES % 2.9 % (15.0-51.0); MEAN CORPUSCULAR HGB CONC 32.6 g/dl (32.0-37.0); MEAN CORPUSCULAR VOLUME 79.6 fl (82.0-101.0); MONOCYTE # 0.5 10^3/ul (0.3-0.9); MONOCYTES % 2.7 % (0.0-11.0); NEUTROPHIL # 15.4 10^3/ul (1.6-7.5); NUCLEATED RED BLOOD CELLS # 0.1 10^3/ul (0.0-0.0); PLATELET COUNT 78 10^3/UL (140-415); RED BLOOD COUNT 2.89 10^6/ul (4.20-5.40); RED CELL DISTRIBUTION WIDTH 19.7 % (11.5-14.5); WHITE BLOOD COUNT 16.7 10^3/ul (4.8-10.8)
[2016-09-26] MEDS: FUROSEMIDE 20 MG INJ IV SCH ×3 (05:56→23:10)
[2016-09-26] MEDS: MEROPENEM 500MG/50 ML (PMX) 50 ML IVPB SCH ×3 (05:56→21:02)
[2016-09-26] MEDS: PANTOPRAZOLE 40 MG INJ IV SCH (05:56)
[2016-09-26] MEDS: VANCOMYCIN 1 GM in NS 250 ML IVPB SCH ×3 (05:57→18:53)
[2016-09-26 06:01] LABS: NEUTROPHILS % 92.3 % (39.0-77.0)
[2016-09-26 06:13] LABS: CALCIUM 7.1 mg/dl (8.4-10.2); CREATININE 0.88 mg/dl (0.44-1.00); MAGNESIUM 2.1 mg/dl (1.7-2.5); PHOSPHORUS 5.1 mg/dl (2.5-4.9); POTASSIUM 3.6 mmol/L (3.5-5.1)
--- NOTE | 2016-09-26 07:31 | PN ---
Date/Time of Note Date/Time of Note DATE: 09/26/16 TIME: 07:29 Assessment/Plan VTE Prophylaxis VTE Prophylaxis Intervention: other Lines/Catheters IV Catheter Type (from Nrsg): PICC Line Central line still needed: Yes Urinary Cath still in place: Yes Reason Cath still needed: other (indicate) Assessment/Plan Chief Complaint/Hosp Course 1. Nonoliguric acute kidney injury. Etiology secondary ATN -Renal function slowly been improving with supportive care continue current treatment plan renally dose meds avoid nephrotoxins - 2. Hypernatremia -Continue water flushes 200 cc every 4 hours 3. Anemia Monitor H&H levels 4. Mineral bone disorder Monitor calcium phosphorus levels 5. Lactic acidosis secondary to shock Improved -Continue to monitor 6. Sepsis status post shock -Continue antibiotic regimen, -Cultures have been reviewed 7. 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 -Continue treatment plan -Follow-up with surgery 8. Ventilator dependent respiratory failure events has been reviewed ABGs reviewed follow-up with pulmonary 9. Volume overload/anasarca -Patient on diuretic therapy monitor hemodynamics and blood pressure 10. History of intracranial hemorrhage in the past status post FOAM MACHINE OPERATOR shunt placement that has been stable over time -FOAM MACHINE OPERATOR shunt was externalized during the surgery September 21, 2016 due to abdominal infection, per neurosurgical notes may need to be reconnected once patient stable versus removed 11. Hypokalemia Replete with potassium chloride Problems: Subjective 24 Hr Interval Summary Free Text/Dictation Patient seen and examined. Extubated yesterday. Tolerating well on nasal cannula. Patient with good urinary output Exam/Review of Systems Vital Signs Vitals Vital Signs Date Time Temp Pulse Resp B/P Pulse Ox O2 Delivery O2 Flow Rate FiO2 09/26/16 06:22 96 6.0 45 09/26/16 06:00 86 29 122/71 Nasal Cannula 09/26/16 04:00 98.4 Intake and Output 09/25/16 09/25/16 09/26/16 15:00 23:00 07:00 Intake Total 538.540 ml 650.842 ml 175 ml Output Total 857 ml 1135 ml 528 ml Balance -318.460 ml -484.158 ml -353 ml Exam HEENT: Normal cephalic atraumatic Neck: Supple Lungs: Coarse breath sounds bilateral Heart: Sinus tachycardia Abdomen: Positive ostomy, Extremities: Normal to inspection, no edema no cyanosis Neurologic: Limited exam Results Result Diagram: 09/26/16 0430 09/26/16 0430 Results 24 hrs Laboratory Tests Test 09/25/16 17:03 09/26/16 04:30 Blood Gas Specimen Source Blood arterial Arterial Blood Date Drawn 09/25/2016 5:04:32 PM Arterial Blood pH (Temp corrected) 7.483 H Arterial Blood pCO2 (Temp correct) 37.7 Arterial Blood pO2 (Temp corrected) 75.2 L Arterial Blood HCO3 27.6 H Arterial Blood Base Excess 3.9 H Arterial Blood Oxygen Saturation 93.3 L Cain Test N/A Arterial Blood Gas Puncture Site A-Line Arterial Blood Carboxyhemoglobin 0.3 Arterial Blood Methemoglobin 0.6 Blood Gas A-a O2 Differential 166.6 H Oxyhemoglobin Percent 92.5 L Total Hemoglobin 8.3 L Blood Gas Temperature 37.0 Blood Gas Modality VENT - CPAP FiO2 40.0 Blood Gas Low PEEP Setting 5.0 Blood Gas Pressure Support 10 Blood Gas Notified Whom RT Blood Gas Notified Time 09/25/2016 5:08:47 PM White Blood Count 16.7 #H Red Blood Count 2.89 L Hemoglobin 7.5 L Hematocrit 23.0 L Mean Corpuscular Volume 79.6 L Mean Corpuscular Hemoglobin 26.0 L Mean Corpuscular Hemoglobin Concent 32.6 Red Cell Distribution Width 19.7 H Platelet Count 78 #L Mean Platelet Volume Neutrophils % 92.3 H Lymphocytes % 2.9 L Monocytes % 2.7 Eosinophils % 0.0 Basophils % 0.2 Nucleated Red Blood Cells % 0.4 H Neutrophils # 15.4 H Lymphocytes # 0.5 L Monocytes # 0.5 Eosinophils # 0.0 Basophils # 0.0 Nucleated Red Blood Cells # 0.1 H Sodium Level 151 H Potassium Level 3.6 Chloride Level 111 H Carbon Dioxide Level 25 Anion Gap 19 H Blood Urea Nitrogen 34 H Creatinine 0.88 Glucose Level 116 Calcium Level 7.1 L Phosphorus Level 5.1 H Magnesium Level 2.1 Medications Medications Current Medications Morphine Sulfate (morphine) 2 mg Q4H PRN IV PAIN Last administered on 06:26; Admin Dose 2 MG; Start 09/15/16 at 23:30 Ondansetron HCl (Zofran Inj) 4 mg Q6H PRN IV NAUSEA AND/OR VOMITING Last administered on 09/20/16 21:11; Admin Dose 4 MG; Start 09/16/16 at 00:30 Acetaminophen (Tylenol Tab) 650 mg Q6H PRN PO PAIN LEVEL 1-3 OR FEVER Last administered on 09/17/16 10:06; Admin Dose 650 MG; Start 09/16/16 at 00:30 Polyethylene Glycol 17 gm 17 gm DAILY PO Last administered on 09/25/16 09:25; Admin Dose 17 GM; Start 09/20/16 at 11:00 Meropenem/Sodium Chloride 50 ml @ 200 mls/hr Q8 IVPB Last administered on 09/26 05:56; Admin Dose 200 MLS/HR; Start 09/20/16 at 22:00 Fluconazole/ Sodium Chloride 50 ml @ 50 mls/hr Q24H IVPB Last administered on 16:39; Admin Dose 50 MLS/HR; Start 09/20/16 at 16:30 Norepinephrine 16 mg/Dextrose 500 ml @ 1.87 mls/hr TITRATE IV Last administered on 09/22/16 04:08; Admin Dose 56.25 MLS/HR; Start 09/21/16 at 09: 00 Propofol (Diprivan) 100 ml @ 1.671 mls/ hr Q12H IV Last administered on 06:23; Admin Dose 6.684 MLS/HR; Start 09/21/16 at 02:30 Acetaminophen/ Hydrocodone Bitart ([place] (5/325)) 1 tab Q4H PRN PO PAIN LEVEL 4 -7; Start 09/21/16 at 15:00 Acetaminophen/ Hydrocodone Bitart ([place] (5/325)) 2 tab Q4H PRN PO PAIN LEVEL 7 -10; Start 09/21/16 at 15:00 Hydromorphone HCl (Dilaudid) 0.5 mg Q2H PRN IV PAIN; Start 09/21/16 at 15:00 Hydromorphone HCl (Dilaudid) 1 mg Q2H PRN IV PAIN Last administered on 00:11; Admin Dose 1 MG; Start 09/21/16 at 15:00 Docusate Sodium (Colace) 100 mg BID PRN PO CONSTIPATION; Start 09/21/16 at 15: 00 Enoxaparin Sodium (Lovenox) 40 mg DAILY SC ; Start 09/22/16 at 09:00; Status Future Hold Docusate Sodium (Colace Liquid Cup) 100 mg BID NGT Last administered on 21:22; Admin Dose 100 MG; Start 09/22/16 at 21:00 Pantoprazole 40 mg 40 mg DAILY@06 IV Last administered on 09/26/16 05:56; Admin Dose 40 MG; Start 09/26/16 at 06:00 Vancomycin HCl (Vancocin) 250 ml @ 125 mls/hr Q12H IVPB Last administered on 05:57; Admin Dose 125 MLS/HR; Start 09/25/16 at 18:00 IV Flush (NS 10 ml) 10 ml PRN PRN IV IV PROTOCOL; Start 09/25/16 at 12:00 KIRAN CASTILLO DO Sep 26, 2016 07:30
[2016-09-26] MEDS: DOCUSATE SODIUM 10 MG/ML (10ML CUP) NGT SCH ×2 (08:54→21:01)
[2016-09-26] MEDS: METOPROLOL 25 MG TAB PO SCH ×2 (08:54→21:02)
[2016-09-26] MEDS: POLYETHYLENE GLYCOL 17 GM PACKET PO SCH (08:55)
[2016-09-26] MEDS: ALBUMIN HUMAN 25% 100 ML IV SCH ×3 (08:55→23:10)
[2016-09-26] MEDS: HYDROmorphONE 1 MG/ML SYG IV PRN ×2 (09:23→12:22)
[2016-09-26] MEDS: ONDANSETRON 4 MG INJ IV PRN (09:23)
--- NOTE | 2016-09-26 10:09 | RADRPT ---
PROCEDURE: XR Chest. CLINICAL INDICATION: CHF TECHNIQUE: An AP view of the chest was obtained. COMPARISON: X-ray dated 09/25/2016 FINDINGS: The endotracheal tube has been removed. The tip of the enteric tube extends below the left diaphrag m. There is a right upper extremity PICC line with tip near the cavoatrial junction. There are bilateral perihilar interstitial opacities. There are right upper lobe interstitial opaci ties with air bronchograms. There are small bilateral pleural effusions.. No pneumothorax is seen. The cardiomediastinal silhouette is within normal limits for size. Calcifications are seen within the aortic arch. The osseous structures demonstrate senescent changes. IMPRESSION: 1. Findings suggestive of interstitial edema with small bilateral pleural effusions. No significant interval change. 2. Right upper lobe interstitial opacities their bronchograms, may also reflect edema or superimpos ed pneumonia. 3. Aortic atherosclerosis. 4. Tubes and lines, as described above. RPTAT: HH .Vilma Leiva MD, MD Date Time Electronically viewed and signed by .Vilma Leiva MD, on 09/26/2016 10:09 .G/
[2016-09-26 10:22] LABS: Arterial Base Excess -1.2 mmol/L (-3.0-3); Arterial COHb 0.3 % (0.0-3.0); Arterial Fraction of Oxyhgb 94.4 % (93.0-99.0); Arterial MetHb 0.5 % (0.0-1.5); Arterial Total Hemglobin 7.8 g/dl (12.0-18.0); Blood Gas IEPAP 15/8; MODE MASK - BIPAP
[2016-09-26] MEDS ORDERED: DIGOXIN 500 MCG INJ IV ONE ×2 (10:25→10:30)
[2016-09-26] MEDS ORDERED: AMIODARONE 150MG/D5W BOLUS 100 ML ONE (10:27)
[2016-09-26] MEDS ORDERED: AMIODARONE 900 MG in DEXTROSE 5% 482 ML IV SCH (10:30)
[2016-09-26] MEDS ORDERED: AMIODARONE 150MG/D5W BOLUS 100 ML IV ONE (10:30)
--- NOTE | 2016-09-26 11:17 | CONS ---
Date/Time of Note Date/Time of Note DATE: 09/26/16 TIME: 11:15 Consult Date/Type/Reason Admit Date/Time Sep 15, 2016 at 21:35 Initial Consult Date 09/21/16 Type of Consultation: Pulmonary. Ordering Provider: AUNDREA ARMENDARIZ Subjective Patient was extubated yesterday deteriorated overnight requiring initiation of noninvasive positive pressure ventilation. This morning she is awake alert has significant neuromuscular weakness continues BiPAP. Remains hemodynamically stable. Objective Vital Signs Date Time Temp Pulse Resp B/P Pulse Ox O2 Delivery O2 Flow Rate FiO2 09/26/16 09:00 118 29 130/68 96 BIPAP 09/26/16 09:00 40 09/26/16 08:02 6.0 09/26/16 08:00 98.6 Intake and Output 09/25/16 09/25/16 09/26/16 14:59 22:59 06:59 Intake Total 501.214 ml 704.852 ml 175 ml Output Total 842 ml 1125 ml 578 ml Balance -340.786 ml -420.148 ml -403 ml Exam PHYSICAL EXAMINATION GENERAL: Elderly Lady on noninvasive positive pressure ventilation appears comfortable at rest. VITAL SIGNS: see below. HEENT: Pupils equal, round, and reactive to light. CARDIAC: S1, S2, 1/6 systolic ejection murmur CHEST: Diminished air entry bilaterally. ABDOMEN: Mildly distended. Bowel sounds present no guarding or rebound EXTREMITIES: No cyanosis, clubbing edema +1 NEUROLOGIC: Generalized weakness Results/Medications Result Diagram: 09/26/16 0430 09/26/16 0430 Results 24 hrs Chest x-ray Significant bilateral pleural effusions. Compressive atelectasis. Laboratory Tests Test 09/25/16 17:03 09/26/16 04:30 09/26/16 09:46 Blood Gas Specimen Source Blood arterial Blood arterial Arterial Blood Date Drawn 09/25/2016 5:04:32 PM 09/26/2016 10:10:14 AM Arterial Blood pH (Temp corrected) 7.483 H 7.423 Arterial Blood pCO2 (Temp correct) 37.7 36.0 Arterial Blood pO2 (Temp corrected) 75.2 L 91.6 H Arterial Blood HCO3 27.6 H 23.0 Arterial Blood Base Excess 3.9 H -1.2 Arterial Blood Oxygen Saturation 93.3 L 95.2 Cain Test N/A N/A Arterial Blood Gas Puncture Site A-Line A-Line Arterial Blood Carboxyhemoglobin 0.3 0.3 Arterial Blood Methemoglobin 0.6 0.5 Blood Gas A-a O2 Differential 166.6 H 80.0 H Oxyhemoglobin Percent 92.5 L 94.4 Total Hemoglobin 8.3 L 7.8 L Blood Gas Temperature 37.0 37.0 Blood Gas Modality VENT - CPAP MASK - BIPAP FiO2 40.0 30.0 Blood Gas Low PEEP Setting 5.0 Blood Gas Pressure Support 10 Blood Gas Notified Whom RT JLD Blood Gas Notified Time 09/25/2016 5:08:47 PM 09/26/2016 10:21:50 AM White Blood Count 16.7 #H Red Blood Count 2.89 L Hemoglobin 7.5 L Hematocrit 23.0 L Mean Corpuscular Volume 79.6 L Mean Corpuscular Hemoglobin 26.0 L Mean Corpuscular Hemoglobin Concent 32.6 Red Cell Distribution Width 19.7 H Platelet Count 78 #L Mean Platelet Volume Neutrophils % 92.3 H Lymphocytes % 2.9 L Monocytes % 2.7 Eosinophils % 0.0 Basophils % 0.2 Nucleated Red Blood Cells % 0.4 H Neutrophils # 15.4 H Lymphocytes # 0.5 L Monocytes # 0.5 Eosinophils # 0.0 Basophils # 0.0 Nucleated Red Blood Cells # 0.1 H Sodium Level 151 H Potassium Level 3.6 Chloride Level 111 H Carbon Dioxide Level 25 Anion Gap 19 H Blood Urea Nitrogen 34 H Creatinine 0.88 Glucose Level 116 Calcium Level 7.1 L Phosphorus Level 5.1 H Magnesium Level 2.1 Blood Gas Respiration Rate 14.0 Blood Gas Actual Respiration Rate 27 Blood Gas IPAP/EPAP Ratio 15/8 Medications Current Medications Morphine Sulfate (morphine) 2 mg Q4H PRN IV PAIN Last administered on 06:26; Admin Dose 2 MG; Start 09/15/16 at 23:30 Ondansetron HCl (Zofran Inj) 4 mg Q6H PRN IV NAUSEA AND/OR VOMITING Last administered on 09/26/16 09:23; Admin Dose 4 MG; Start 09/16/16 at 00:30 Acetaminophen (Tylenol Tab) 650 mg Q6H PRN PO PAIN LEVEL 1-3 OR FEVER Last administered on 09/17/16 10:06; Admin Dose 650 MG; Start 09/16/16 at 00:30 Polyethylene Glycol 17 gm 17 gm DAILY PO Last administered on 09/26/16 08:55; Admin Dose 17 GM; Start 09/20/16 at 11:00 Meropenem/Sodium Chloride 50 ml @ 200 mls/hr Q8 IVPB Last administered on 09/26 05:56; Admin Dose 200 MLS/HR; Start 09/20/16 at 22:00 Fluconazole/ Sodium Chloride 50 ml @ 50 mls/hr Q24H IVPB Last administered on 16:39; Admin Dose 50 MLS/HR; Start 09/20/16 at 16:30 Norepinephrine 16 mg/Dextrose 500 ml @ 1.87 mls/hr TITRATE IV Last administered on 09/22/16 04:08; Admin Dose 56.25 MLS/HR; Start 09/21/16 at 09: 00 Propofol (Diprivan) 100 ml @ 1.671 mls/ hr Q12H IV Last administered on 06:23; Admin Dose 6.684 MLS/HR; Start 09/21/16 at 02:30 Acetaminophen/ Hydrocodone Bitart ([place] (5/325)) 1 tab Q4H PRN PO PAIN LEVEL 4 -7; Start 09/21/16 at 15:00 Acetaminophen/ Hydrocodone Bitart ([place] (5/325)) 2 tab Q4H PRN PO PAIN LEVEL 7 -10; Start 09/21/16 at 15:00 Hydromorphone HCl (Dilaudid) 0.5 mg Q2H PRN IV PAIN; Start 09/21/16 at 15:00 Hydromorphone HCl (Dilaudid) 1 mg Q2H PRN IV PAIN Last administered on 09:23; Admin Dose 1 MG; Start 09/21/16 at 15:00 Docusate Sodium (Colace) 100 mg BID PRN PO CONSTIPATION; Start 09/21/16 at 15: 00 Enoxaparin Sodium (Lovenox) 40 mg DAILY SC ; Start 09/22/16 at 09:00; Status Future Hold Docusate Sodium (Colace Liquid Cup) 100 mg BID NGT Last administered on 08:54; Admin Dose 100 MG; Start 09/22/16 at 21:00 Pantoprazole 40 mg 40 mg DAILY@06 IV Last administered on 09/26/16 05:56; Admin Dose 40 MG; Start 09/26/16 at 06:00 Vancomycin HCl (Vancocin) 250 ml @ 125 mls/hr Q12H IVPB Last administered on 05:57; Admin Dose 125 MLS/HR; Start 09/25/16 at 18:00 IV Flush 10 ml 10 ml PRN PRN IV IV PROTOCOL; Start 09/25/16 at 12:00 Albumin Human (Albumin Human 25%) 100 ml @ 100 mls/hr Q8H IV Last administered on 09/26/16 08:55; Admin Dose 100 MLS/HR; Start 09/26/16 at 07:30 ; Stop 09/27/16 at 00:29 Metoprolol Tartrate 12.5 mg 12.5 mg BID PO Last administered on 09/26/16 08:54 ; Admin Dose 12.5 MG; Start 09/26/16 at 09:00 Amiodarone HCl/ Dextrose (Cordarone Iv/ D5W) 500 ml @ 0 mls/hr Q0M IV ; Start at 10:30; Stop 09/27/16 at 10:29 Miscellaneous Information (*Rx Drug Level Order Reminder*) VANCO TROUGH @ 0, 500 ON... ONCE ONCE XX ; Start 09/27/16 at 05:00; Stop 09/27/16 at 05:01 Assessment/Plan Chief Complaint/Hosp Course Assessment 1. Severe sepsis and hypoxemic respiratory failure. Differential includes healthcare associated pneumonia versus aspiration pneumonia. Oxygenation improved currently on 40% FiO2. Postextubation worsening respiratory distress requiring noninvasive positive pressure ventilation. Chest x-ray shows pleural effusions with compressive atelectasis. 2. Possible infected MARKETING PROJECT COORDINATOR shunt. Status post externalization 3. Abdominal abscesses possible peritonitis. Repeat exploratory laparotomy today 4. Severe sepsis with metabolic acidosis clinically improved 5. Postop anemia, hemoglobin 7.2 continue to monitor 6. Electrolyte abnormalities hyperkalemia and hypernatremia Plan 1. Continue mechanical ventilation, thoracentesis right pleural effusion. 2.' neurosurgery and general surgery recommendations, 3. Continue broad-spectrum antibiotics 4. Trend lactic acid, aggressive fluid resuscitation. Transfusion of packed red blood cells per general surgery. 5. DVT and GI prophylaxis 6. Renal recommendations regarding electrolyte abnormalities, agree with gentle diuresis. Discussed with staff Critical care time 40 minutes. Problems: DAMIEN GUADARRAMA MD, [facility] Sep 26, 2016 11:17
--- NOTE | 2016-09-26 12:25 | PN ---
Date/Time of Note Date/Time of Note DATE: 09/26/16 TIME: 12:18 Assessment/Plan Lines/Catheters IV Catheter Type (from Nrs): PICC Line Shore in Place (from Nrs): Yes Assessment/Plan Assessment/Plan [facility] Progress Note Date of Service: 09/26/2016 Place of service: [facility] ICU Today's Assessment & Plan: Overall stable and improving. Remains extubated since yesterday evening, although still needing support. Will likely continue to improve as gentle diuresis takes effect. No further evidence of bowel leak. Ostomy appears viable and no further issues with retraction. Remains off pressors with improvement in all fronts. No indication for acute surgical intervention. Will still need at least 100 cc of maintenance fluid during this phase of recovery. Decisions to change fluid intake should be made within a multidisciplinary framework. Her rise in WBC is expected and congruent with her clinical picture. I do not believe it is due to ongoing uncontrolled source of infection. Would not be surprised to see it rise to about 20 before coming down. Discussed with patient and team. Answered all questions. With above assessment, I recommended the following for today: 1. Continue aggressive medical management 2. Continue wound VAC at 80 mmHg; dressing change starting tomorrow (has to happen; please let me know if any issues with this) 3. Cont gentle diuresis 4. Cont gastric trophic feeds at 10 cc/h with plans to start increasing rate by 10 cc per 6 hrs once starts tolerating 5. Labs in am 6. Hold Lovenox until her platelet count is over 100 and her INR is less than 2 7. Please maintain multidisciplinary discussion regarding fluid intake since this is a fragile surgical patient with recent sepsis and shock Thank you again for your great care of this very pleasant patient and wonderful family. If there are any questions, please feel free to call me at [phone]. Nature of presenting problem: High severity Please note that, given the extensive number of diagnoses or management options , the extensive amount and/or complexity of data needed to be reviewed, and I risk of complications and/or morbidity or mortality, this qualifies as high complexity type of decision-making. Disclaimer: Inadvertent spelling and grammatical errors are likely due to EHR/ dictation software use and do not reflect on the quality of delivered patient care. Also, please note that the electronic time recorded on this node does not necessarily reflect the actual time of the visit. 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 S/p IR drainage 09/09/16 with removal of 20 cc pus and placement of a 10 Fr. pigtail catheter at [facility]. D/c home 09/12/16. Re-presented to [place] ED 09/15/16 after being diverted from [facility] (due to internal disaster diversion) where CT was done showing adequate placement of the percutaneous drain near the sigmoid colon and decompressed sigmoid colon abscess, no obvious free air or significant spillage of stool in the abdominal cavity, and incidental finding of tail of the SENIOR MOBILE WEB DEVELOPER shunt in the pelvis (new from right upper quadrant position of the same drain on the CT scan at [facility]). Transfer to [facility] 09/15/2016 for further cares. S/p upsizing of drain to 12 Fr pigtail on 09/17/16 (communication with colon demonstrated; no obvious free communication to rest of peritoneal space). Patient decompensated in the early hours of the morning on 09/21/2016 and had to be transferred to the intensive care unit with need for endotracheal tube intubation, central line placement, and resuscitation for treatment of shock with lactic acidosis and evidence of peritonitis and free air on the new chest, abdomen, and pelvis CT scan. S/p a rather challenging sigmoid colectomy with performance of end colostomy (Reid's procedure), takedown of splenic flexure of the colon, lysis of adhesions (60 minutes), and abdominal lavage at [facility] on 09/21/16; diagnosis of colon ischemia (distal transverse colon and descending colon) during reentry through recent laparotomy incision with exploration of abdominal cavity, takedown of colostomy, completion left hemicolectomy with resection of distal transverse colon, lysis of adhesions, abdominal lavage, performance of an end colostomy [facility] 09/24/16. Extubated post op evening of 09/25/16. Comorbidities: 1. Perforated sigmoid colon (see below) 2. Status post ventriculoperitoneal shunt placement. 3. Status post prior hysterectomy and bilateral salpingo-oophorectomy through Pfannenstiel incision 4. S/p IR drainage 09/09/16 with removal of 20 cc pus and placement of a 10 Fr. pigtail catheter at [facility]. 5. Readmission to [facility] 09/15/16 with upsizing of drain to 12 Fr pigtail on (communication with colon demonstrated; no obvious free communication to rest of peritoneal space). Septic shock with multiorgan failure 09/21/2016 requiring ICU admission with intubation and pressors. 6. S/p a rather challenging sigmoid colectomy with performance of end colostomy (Reid's procedure), takedown of splenic flexure of the colon, lysis of adhesions (60 minutes), and abdominal lavage at [facility] on 09/21/16 7. Colon ischemia (distal transverse colon and descending colon) 8. S/p reentry through recent laparotomy incision with exploration of abdominal cavity, takedown of colostomy, completion left hemicolectomy with resection of distal transverse colon, lysis of adhesions, abdominal lavage, performance of an end colostomy [facility] 09/24/16 Subjective: No major events or complaints overnight other than above; no obvious abd pain and appears to be under control with medications; no observed or reported n/v/d ; no observed or reported sob or cp; + bowel activity; - activity; breathing seems to be easy. Objective: Vitals: See below I's & O's: See below Exam: GENERAL: On exam, the patient was lying in bed and appeared to be comfortable and in no acute distress. On high flow mask. ABDOMEN: Soft, nontender and nondistended. Incision dressings are clean, dry and intact without any obvious evidence of underlying erythema, edema, discharge , or hernia. Surgical drain ss. There are no peritoneal signs or guarding. Ostomy appears to be viable and productive with stool and air in the bag. SKIN: Skin appears to be pink and feels warm to touch. NEUROLOGIC: Patient is awake and follows very simple commands. Labs: See below Exam/Review of Systems Vital Signs Vitals Vital Signs Date Time Temp Pulse Resp B/P Pulse Ox O2 Delivery O2 Flow Rate FiO2 09/26/16 11:00 95 17 124/67 98 BIPAP 09/26/16 09:00 40 09/26/16 08:02 6.0 09/26/16 08:00 98.6 Intake and Output 09/25/16 09/25/16 09/26/16 15:00 23:00 07:00 Intake Total 538.540 ml 650.842 ml 185 ml Output Total 857 ml 1135 ml 678 ml Balance -318.460 ml -484.158 ml -493 ml Results Result Diagram: 09/26/16 0430 09/26/16 0430 ALEXSANDER DUARTE M.D. Sep 26, 2016 12:25
[2016-09-26] MEDS: morphine 2 MG INJ IV PRN (13:28)
--- NOTE | 2016-09-26 13:40 | RADRPT ---
PROCEDURE: XR Chest. CLINICAL INDICATION: R/O ASPIRATION TECHNIQUE: Single frontal view of the chest was obtained COMPARISON: Chest x-ray performed earlier the same day FINDINGS: The nasogastric tube and right PICC line remain in adequate position. The cardiomediastinal silhouette is within normal limits. Atherosclerotic calcifications of the aor ta are noted. Bilateral perihilar opacities and diffuse right lung interstitial opacities persist, not significant ly changed, suggestive of interstitial edema, not significantly changed. A superimposed infectious process cannot be completely excluded. A small right pleural effusion and small to moderate left pleural effusion are stable. Adjacent bib asilar opacities persist and likely represent compressive atelectasis. There are degenerative changes of the visualized spine. IMPRESSION: No significant change compared to prior chest x-ray performed earlier the same day. See details rufus umana RPTAT: PP Physician Chato Date Time Electronically viewed and signed by Physician Chato on 09/26/2016 13:40 SEAN/
--- NOTE | 2016-09-26 14:00 | PN ---
Date/Time of Note Date/Time of Note DATE: 09/26/16 TIME: 13:59 Assessment/Plan VTE Prophylaxis VTE Prophylaxis Intervention: SCD's Assessment/Plan Chief Complaint/Hosp Course 1. Severe sepsis with systemic shock and organ dysfunction 2/2 #2 2. Non resolving diverticulitis with abscess and sigmoid colon perforation * s/p sigmoid colectomy with end colostomy (Reid's procedure) and adhesiolyis on 09/21/16 * Status post completion of hemicolectomy and colostomy placement * Patient also now has wound VAC on anterior abdominal wall 3. Lactic and Metabolic acidosis 2/2 above-resolved 4. Mild troponin elevation likely type 2 from #1: Stable 5. Acute transaminitis 2/2 shock liver: improving 6. 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 Hypernatremia likely secondary to #1: improved 8. Severe coagulopathy also as a result of #1: improving 9. Iron deficiency hypochromic anemia on iron infusion therapy 10. Diffuse anasarca as well as bilateral pleural effusions likely associated hypoalbuminemia 11. Bilateral pneumonia with vascular congestion concerning for BUD S 12. Acute renal insufficiency secondary to #1 PLAN: * Continue ICU care management * Continue ventilator monitoring and management /follow pulmonary recommendations * Resume tube feeds when stable and if okay with surgery * Continue broad-spectrum antibiotics per ID * Status post blood transfusion, serial labs, electrolytes replacement as indicated * Continue serial lactic acid trend * Patient's management remains dynamic depending on her clinical symptoms and lab findings, she continues require close monitoring, follow-ups and frequent reevaluation * Appreciate all consultants * Further interventions per clinical care Prophylaxis : SCDs / PPI Problems: Subjective 24 Hr Interval Summary Constitutional: disoriented Exam/Review of Systems Vital Signs Vitals Vital Signs Date Time Temp Pulse Resp B/P Pulse Ox O2 Delivery O2 Flow Rate FiO2 09/26/16 12:00 102 09/26/16 11:00 17 124/67 98 BIPAP 09/26/16 09:00 40 09/26/16 08:02 6.0 09/26/16 08:00 98.6 Intake and Output 09/25/16 09/25/1609/26/17 14:59 22:59 06:59 Intake Total 501.214 ml 704.852 ml 175 ml Output Total 842 ml 1125 ml 578 ml Balance -340.786 ml -420.148 ml -403 ml Exam Psych: confusion Respiratory: clear to auscultation Cardiovascular: regular rate and rhythm Gastrointestinal: soft, No distended Musculoskeletal: nl extremities to inspection Results Result Diagram: 09/26/16 0430 09/26/16 0430 Results 24 hrs Laboratory Tests Test 09/25/16 17:03 09/26/16 04:30 09/26/16 09:46 Blood Gas Specimen Source Blood arterial Blood arterial Arterial Blood Date Drawn 09/25/2016 5:04:32 PM 09/26/2016 10:10:14 AM Arterial Blood pH (Temp corrected) 7.483 H 7.423 Arterial Blood pCO2 (Temp correct) 37.7 36.0 Arterial Blood pO2 (Temp corrected) 75.2 L 91.6 H Arterial Blood HCO3 27.6 H 23.0 Arterial Blood Base Excess 3.9 H -1.2 Arterial Blood Oxygen Saturation 93.3 L 95.2 Cain Test N/A N/A Arterial Blood Gas Puncture Site A-Line A-Line Arterial Blood Carboxyhemoglobin 0.3 0.3 Arterial Blood Methemoglobin 0.6 0.5 Blood Gas A-a O2 Differential 166.6 H 80.0 H Oxyhemoglobin Percent 92.5 L 94.4 Total Hemoglobin 8.3 L 7.8 L Blood Gas Temperature 37.0 37.0 Blood Gas Modality VENT - CPAP MASK - BIPAP FiO2 40.0 30.0 Blood Gas Low PEEP Setting 5.0 Blood Gas Pressure Support 10 Blood Gas Notified Whom RT JLD Blood Gas Notified Time 09/25/2016 5:08:47 PM 09/26/2016 10:21:50 AM White Blood Count 16.7 #H Red Blood Count 2.89 L Hemoglobin 7.5 L Hematocrit 23.0 L Mean Corpuscular Volume 79.6 L Mean Corpuscular Hemoglobin 26.0 L Mean Corpuscular Hemoglobin Concent 32.6 Red Cell Distribution Width 19.7 H Platelet Count 78 #L Mean Platelet Volume Neutrophils % 92.3 H Lymphocytes % 2.9 L Monocytes % 2.7 Eosinophils % 0.0 Basophils % 0.2 Nucleated Red Blood Cells % 0.4 H Neutrophils # 15.4 H Lymphocytes # 0.5 L Monocytes # 0.5 Eosinophils # 0.0 Basophils # 0.0 Nucleated Red Blood Cells # 0.1 H Sodium Level 151 H Potassium Level 3.6 Chloride Level 111 H Carbon Dioxide Level 25 Anion Gap 19 H Blood Urea Nitrogen 34 H Creatinine 0.88 Glucose Level 116 Calcium Level 7.1 L Phosphorus Level 5.1 H Magnesium Level 2.1 Blood Gas Respiration Rate 14.0 Blood Gas Actual Respiration Rate 27 Blood Gas IPAP/EPAP Ratio 15/8 Medications Medications Current Medications Morphine Sulfate (morphine) 2 mg Q4H PRN IV PAIN Last administered on 13:28; Admin Dose 2 MG; Start 09/15/16 at 23:30 Ondansetron HCl (Zofran Inj) 4 mg Q6H PRN IV NAUSEA AND/OR VOMITING Last administered on 09/26/16 09:23; Admin Dose 4 MG; Start 09/16/16 at 00:30 Acetaminophen (Tylenol Tab) 650 mg Q6H PRN PO PAIN LEVEL 1-3 OR FEVER Last administered on 09/17/16 10:06; Admin Dose 650 MG; Start 09/16/16 at 00:30 Polyethylene Glycol 17 gm 17 gm DAILY PO Last administered on 09/26/16 08:55; Admin Dose 17 GM; Start 09/20/16 at 11:00 Meropenem/Sodium Chloride 50 ml @ 200 mls/hr Q8 IVPB Last administered on 09/26 05:56; Admin Dose 200 MLS/HR; Start 09/20/16 at 22:00 Fluconazole/ Sodium Chloride 50 ml @ 50 mls/hr Q24H IVPB Last administered on 16:39; Admin Dose 50 MLS/HR; Start 09/20/16 at 16:30 Norepinephrine 16 mg/Dextrose 500 ml @ 1.87 mls/hr TITRATE IV Last administered on 09/22/16 04:08; Admin Dose 56.25 MLS/HR; Start 09/21/16 at 09: 00 Propofol (Diprivan) 100 ml @ 1.671 mls/ hr Q12H IV Last administered on 06:23; Admin Dose 6.684 MLS/HR; Start 09/21/16 at 02:30 Acetaminophen/ Hydrocodone Bitart ([place] (5/325)) 1 tab Q4H PRN PO PAIN LEVEL 4 -7; Start 09/21/16 at 15:00 Acetaminophen/ Hydrocodone Bitart ([place] (5/325)) 2 tab Q4H PRN PO PAIN LEVEL 7 -10; Start 09/21/16 at 15:00 Hydromorphone HCl (Dilaudid) 0.5 mg Q2H PRN IV PAIN; Start 09/21/16 at 15:00 Hydromorphone HCl (Dilaudid) 1 mg Q2H PRN IV PAIN Last administered on 12:22; Admin Dose 1 MG; Start 09/21/16 at 15:00 Docusate Sodium (Colace) 100 mg BID PRN PO CONSTIPATION; Start 09/21/16 at 15: 00 Enoxaparin Sodium (Lovenox) 40 mg DAILY SC ; Start 09/22/16 at 09:00; Status Future Hold Docusate Sodium (Colace Liquid Cup) 100 mg BID NGT Last administered on 08:54; Admin Dose 100 MG; Start 09/22/16 at 21:00 Pantoprazole 40 mg 40 mg DAILY@06 IV Last administered on 09/26/16 05:56; Admin Dose 40 MG; Start 09/26/16 at 06:00 Vancomycin HCl (Vancocin) 250 ml @ 125 mls/hr Q12H IVPB Last administered on 05:57; Admin Dose 125 MLS/HR; Start 09/25/16 at 18:00 IV Flush 10 ml 10 ml PRN PRN IV IV PROTOCOL; Start 09/25/16 at 12:00 Albumin Human (Albumin Human 25%) 100 ml @ 100 mls/hr Q8H IV Last administered on 09/26/16 08:55; Admin Dose 100 MLS/HR; Start 09/26/16 at 07:30 ; Stop 09/27/16 at 00:29 Metoprolol Tartrate 12.5 mg 12.5 mg BID PO Last administered on 09/26/16 08:54 ; Admin Dose 12.5 MG; Start 09/26/16 at 09:00 Amiodarone HCl/ Dextrose (Cordarone Iv/ D5W) 500 ml @ 0 mls/hr Q0M IV Last administered on 09/26/16t 11:32; Admin Dose 33.4 MLS/HR; Start 09/26/16 at 10:30 ; Stop 09/27/16 at 10:29 Miscellaneous Information (*Rx Drug Level Order Reminder*) VANCO TROUGH @ 0, 500 ON... ONCE ONCE XX ; Start 09/27/16 at 05:00; Stop 09/27/16 at 05:01 DALE RODARTE Sep 26, 2016 14:00
--- NOTE | 2016-09-26 14:19 | CONS ---
Date/Time of Note Date/Time of Note DATE: 09/26/16 TIME: 14:17 Assessment/Plan Assessment/Plan Chief Complaint/Hosp Course Patient was extubated currently on BiPAP awake looks comfortable Temperature 98.6 pulse 95 respirations 20 blood pressure 124/67 saturation 98% WBC 16.7 H&H 7.5 and 23 platelets 78 neutrophils 92.3 BN 34 creatinine 0.88 Abdominal fluid culture grew alpha hemolytic strep species staph species enterococcus species Diagnostic chest x-ray revealed right upper lobe interstitial opacities questionable edema versus superimposed pneumonia Indwelling's: PICC line placed on September 25 ventriculostomy [place] catheter intra- abdominal drainage catheters Allergies: Penicillins Antibiotics: Vancomycin, fluconazole, meropenem Physical elimination: Well-developed well-nourished elderly woman who is intubated sedated, in no distress. Normocephalic sclera nonicteric. Bugle mucosa dry. Neck is supple, trachea midline. Chest rise symmetrical breath sounds diminished to bases. Heart: S1-S2. Abdomen distended, soft, bowel tones hypoactive. Extremities without cyanosis, with trace 1+ edema bilateral lower extremities. Skin: Pale with anasarca. Assessment: 1. S/p septic shock 2. Perforated sigmoid colon status post colectomy with end colostomy and lysis of adhesions on September 21, 2016, status post abdominal lavage and lysis of adhesions and resection of distal transverse colon 09/24/16 3. Status post externalization of HOME SUPPORT WORKER shunt on September 21, 2016 4. Acute renal failure 5. Transaminitis, improving 6. Acute respiratory failure requiring intubation 7. Healthcare associated pneumonia, possibly aspiration 8. Acute respiratory failure requiring BiPAP, status post extubation Plan: Remains hemodynamically stable, continue antibiotics, follow final cultures follow surgical and pulmonary recommendations Discussed with staff Discussed with Dr. Aries Maldonado Problems: Consultation Date/Type/Reason Admit Date/Time Sep 15, 2016 at 21:35 Type of Consultation: id Referring Provider: AUNDREA ARMENDARIZ Exam/Review of Systems Vital Signs Vitals Vital Signs Date Time Temp Pulse Resp B/P Pulse Ox O2 Delivery O2 Flow Rate FiO2 09/26/16 12:00 102 09/26/16 11:00 17 124/67 98 BIPAP 09/26/16 09:00 40 09/26/16 08:02 6.0 09/26/16 08:00 98.6 Intake and Output 09/25/16 09/25/16 09/26/16 15:00 23:00 07:00 Intake Total 538.540 ml 650.842 ml 185 ml Output Total 857 ml 1135 ml 678 ml Balance -318.460 ml -484.158 ml -493 ml Results Result Diagram: 09/26/16 0430 09/26/16 0430 Results 24 hrs Laboratory Tests Test 09/25/16 17:03 09/26/16 04:30 09/26/16 09:46 Blood Gas Specimen Source Blood arterial Blood arterial Arterial Blood Date Drawn 09/25/2016 5:04:32 PM 09/26/2016 10:10:14 AM Arterial Blood pH (Temp corrected) 7.483 H 7.423 Arterial Blood pCO2 (Temp correct) 37.7 36.0 Arterial Blood pO2 (Temp corrected) 75.2 L 91.6 H Arterial Blood HCO3 27.6 H 23.0 Arterial Blood Base Excess 3.9 H -1.2 Arterial Blood Oxygen Saturation 93.3 L 95.2 Cain Test N/A N/A Arterial Blood Gas Puncture Site A-Line A-Line Arterial Blood Carboxyhemoglobin 0.3 0.3 Arterial Blood Methemoglobin 0.6 0.5 Blood Gas A-a O2 Differential 166.6 H 80.0 H Oxyhemoglobin Percent 92.5 L 94.4 Total Hemoglobin 8.3 L 7.8 L Blood Gas Temperature 37.0 37.0 Blood Gas Modality VENT - CPAP MASK - BIPAP FiO2 40.0 30.0 Blood Gas Low PEEP Setting 5.0 Blood Gas Pressure Support 10 Blood Gas Notified Whom RT JLD Blood Gas Notified Time 09/25/2016 5:08:47 PM 09/26/2016 10:21:50 AM White Blood Count 16.7 #H Red Blood Count 2.89 L Hemoglobin 7.5 L Hematocrit 23.0 L Mean Corpuscular Volume 79.6 L Mean Corpuscular Hemoglobin 26.0 L Mean Corpuscular Hemoglobin Concent 32.6 Red Cell Distribution Width 19.7 H Platelet Count 78 #L Mean Platelet Volume Neutrophils % 92.3 H Lymphocytes % 2.9 L Monocytes % 2.7 Eosinophils % 0.0 Basophils % 0.2 Nucleated Red Blood Cells % 0.4 H Neutrophils # 15.4 H Lymphocytes # 0.5 L Monocytes # 0.5 Eosinophils # 0.0 Basophils # 0.0 Nucleated Red Blood Cells # 0.1 H Sodium Level 151 H Potassium Level 3.6 Chloride Level 111 H Carbon Dioxide Level 25 Anion Gap 19 H Blood Urea Nitrogen 34 H Creatinine 0.88 Glucose Level 116 Calcium Level 7.1 L Phosphorus Level 5.1 H Magnesium Level 2.1 Blood Gas Respiration Rate 14.0 Blood Gas Actual Respiration Rate 27 Blood Gas IPAP/EPAP Ratio 15/8 Medications Medications Current Medications Morphine Sulfate (morphine) 2 mg Q4H PRN IV PAIN Last administered on 13:28; Admin Dose 2 MG; Start 09/15/16 at 23:30 Ondansetron HCl (Zofran Inj) 4 mg Q6H PRN IV NAUSEA AND/OR VOMITING Last administered on 09/26/16 09:23; Admin Dose 4 MG; Start 09/16/16 at 00:30 Acetaminophen (Tylenol Tab) 650 mg Q6H PRN PO PAIN LEVEL 1-3 OR FEVER Last administered on 09/17/16 10:06; Admin Dose 650 MG; Start 09/16/16 at 00:30 Polyethylene Glycol 17 gm 17 gm DAILY PO Last administered on 09/26/16 08:55; Admin Dose 17 GM; Start 09/20/16 at 11:00 Meropenem/Sodium Chloride 50 ml @ 200 mls/hr Q8 IVPB Last administered on 09/26 14:06; Admin Dose 200 MLS/HR; Start 09/20/16 at 22:00 Fluconazole/ Sodium Chloride 50 ml @ 50 mls/hr Q24H IVPB Last administered on 16:39; Admin Dose 50 MLS/HR; Start 09/20/16 at 16:30 Norepinephrine 16 mg/Dextrose 500 ml @ 1.87 mls/hr TITRATE IV Last administered on 09/22/16 04:08; Admin Dose 56.25 MLS/HR; Start 09/21/16 at 09: 00 Propofol (Diprivan) 100 ml @ 1.671 mls/ hr Q12H IV Last administered on 06:23; Admin Dose 6.684 MLS/HR; Start 09/21/16 at 02:30 Acetaminophen/ Hydrocodone Bitart ([place] (5/325)) 1 tab Q4H PRN PO PAIN LEVEL 4 -7; Start 09/21/16 at 15:00 Acetaminophen/ Hydrocodone Bitart ([place] (5/325)) 2 tab Q4H PRN PO PAIN LEVEL 7 -10; Start 09/21/16 at 15:00 Hydromorphone HCl (Dilaudid) 0.5 mg Q2H PRN IV PAIN; Start 09/21/16 at 15:00 Hydromorphone HCl (Dilaudid) 1 mg Q2H PRN IV PAIN Last administered on 12:22; Admin Dose 1 MG; Start 09/21/16 at 15:00 Docusate Sodium (Colace) 100 mg BID PRN PO CONSTIPATION; Start 09/21/16 at 15: 00 Enoxaparin Sodium (Lovenox) 40 mg DAILY SC ; Start 09/22/16 at 09:00; Status Future Hold Docusate Sodium (Colace Liquid Cup) 100 mg BID NGT Last administered on 08:54; Admin Dose 100 MG; Start 09/22/16 at 21:00 Pantoprazole 40 mg 40 mg DAILY@06 IV Last administered on 09/26/16 05:56; Admin Dose 40 MG; Start 09/26/16 at 06:00 Vancomycin HCl (Vancocin) 250 ml @ 125 mls/hr Q12H IVPB Last administered on 05:57; Admin Dose 125 MLS/HR; Start 09/25/16 at 18:00 IV Flush 10 ml 10 ml PRN PRN IV IV PROTOCOL; Start 09/25/16 at 12:00 Albumin Human (Albumin Human 25%) 100 ml @ 100 mls/hr Q8H IV Last administered on 09/26/16 08:55; Admin Dose 100 MLS/HR; Start 09/26/16 at 07:30 ; Stop 09/27/16 at 00:29 Metoprolol Tartrate 12.5 mg 12.5 mg BID PO Last administered on 09/26/16 08:54 ; Admin Dose 12.5 MG; Start 09/26/16 at 09:00 Amiodarone HCl/ Dextrose (Cordarone Iv/ D5W) 500 ml @ 0 mls/hr Q0M IV Last administered on 09/26/16 11:32; Admin Dose 33.4 MLS/HR; Start 09/26/16 at 10:30 ; Stop 09/27/16 at 10:29 Miscellaneous Information (*Rx Drug Level Order Reminder*) VANCO TROUGH @ 0, 500 ON... ONCE ONCE XX ; Start 09/27/16 at 05:00; Stop 09/27/16 at 05:01 Furosemide (Lasix) 20 mg Q6 IV ; Start 09/27/16 at 00:00; Stop 09/28/16 at 00:00 CORINA ESTRELLA NP Sep 26, 2016 14:19
[2016-09-26] MEDS: PROPOFOL 100 ML IV SCH (14:30)
--- NOTE | 2016-09-26 14:48 | RADRPT ---
PROCEDURE: US guided right thoracentesis. CLINICAL INDICATION: Shortness of breath. Right pleural effusion. TECHNIQUE: Prior to the procedure, informed consent was obtained. The risks, benefits, and alternatives were e xplained to the patient or the patient's family, including but not limited to bleeding, infection, p ain, visceral or vascular damage, shock, pneumothorax, chest tube placement, air embolism, and . The patient or the patient's family understood the risks and the alternatives and wished to proce ed with the study. Informed written consent was obtained. A procedural pause was performed. The patient's name, date of , and procedure to be performed were verified. Ultrasound of the right hemithorax was performed in the axial and sagittal planes. A right pleural e ffusion is noted. Utilizing ultrasound guidance, optimal location for entry to the pleural cavity wa s ascertained. The overlying skin was prepped and draped in the usual sterile fashion. Approximate ly 10 ml of 1% Xylocaine was injected locally for pain control. Using ultrasound guidance, a 5-Fren Yueh catheter was introduced into the right pleural space without difficulty. Fluid was aspirated . COMPARISON: None. FINDINGS: Initial ultrasound demonstrates fluid in the right pleural space. Approximately 0.800 liters of ser ous fluid was aspirated and was discarded. IMPRESSION: 1. Satisfactory ultrasound-guided right thoracentesis. RPTAT: QQ .Beto Cortes MD, Date Time Electronically viewed and signed by .Beto Cortes MD, on 09/26/2016 14:46 .R/
[2016-09-26] MEDS ORDERED: LIDOCAINE 1% (MPF) 5 ML VIAL ONE (14:55)
--- NOTE | 2016-09-26 15:39 | RADRPT ---
PROCEDURE: XR Chest. CLINICAL INDICATION: POST RIGHT THORACENTESIS TECHNIQUE: Single frontal view of the chest was obtained COMPARISON: Chest x-ray of 09/26/2016 at 10:35 a.m. FINDINGS: The nasogastric tube and right PICC line are stable in positions. The heart and mediastinum are within normal limits. Atherosclerotic calcifications of the thoracic aorta are demonstrated. There are slight decrease in bilateral perihilar opacities and no diffuse right lung interstitial op acities, compatible with decreased interstitial edema. Small partially layering right pleural effusion, slightly decreased in size. Small left pleural eff usion, likely stable allowing for slight differences in technique No pneumothorax is identified. There are degenerative changes of the visualized spine. IMPRESSION: 1. Small partially layering right pleural effusion, slightly decreased compared to prior study. 2. Small left pleural effusion, likely stable allowing for slight differences in technique. 3. Interval decrease in interstitial edema. RPTAT: PP Physician Chato Date Time Electronically viewed and signed by Physician Chato on 09/26/2016 15:39 SEAN/
[2016-09-26 16:05] LABS: FLUID TYPE THORACENTESIS FLUID
[2016-09-26 16:07] LABS: FLD COLOR YELLOW; FLD TYPE THORACENTHESIS
[2016-09-26 16:08] LABS: FLD RBC 0 /uL; FLD WBC 87 /cmm
[2016-09-26 16:09] LABS: FLD CLARITY HAZY
[2016-09-26 16:10] LABS: FLUID GLUCOSE 122 mg/dl; FLUID TYPE THORACENTESIS FLUID
[2016-09-26 16:12] LABS: FLUID TOTAL PROTEIN < 2.0 g/dl
[2016-09-26] MEDS: FLUCONAZOLE 100 MG/NS (PMX) 50 ML IVPB SCH (16:38)
[2016-09-26 16:54] LABS: FLD MN % (M) 63 %; FLD PMN % (M) 37 %; PATH REVIEW? NO
--- NOTE | 2016-09-26 21:06 | RADRPT ---
Vent Rate: 170 bpm RR Interval: 0 msec SC Interval: 0 msec QRS Duration: 82 msec QT Interval: 248 msec QTC Interval: 417 msec P-R-T [place]: 0 - 76 - 0 degrees Atrial fibrillation with rapid ventricular response Low voltage QRS Cannot rule out Anterior infarct , age undetermined Abnormal ECG Electronically Signed By: Brian Faith [id number]
[2016-09-27] VITALS (104 sets, daily range): BP systolic 119–169; BP diastolic 50–90; PULSE 69–101; RESP 18–41
[2016-09-27] MEDS: morphine 2 MG INJ IV PRN (01:04)
[2016-09-27] MEDS: ALBUTEROL/IPRATROPIUM (NEB) 3 ML AMP HHN PRN ×2 (01:48→07:51)
[2016-09-27] MEDS: PROPOFOL 100 ML IV SCH ×2 (02:09→14:30)
[2016-09-27 04:58] LABS: ADD SCAN DIFF NO
[2016-09-27 05:15] LABS: ABNORMAL IP MESSAGE 1; BASOPHIL # 0.1 10^3/ul (0.0-0.1); BASOPHILS % 0.3 % (0.0-2.0); HEMATOCRIT 22.2 % (37.0-47.0); HEMOGLOBIN 7.1 g/dl (12.0-16.0); LYMPHOCYTES # 0.7 10^3/ul (0.8-2.9); LYMPHOCYTES % 2.9 % (15.0-51.0); MEAN CORPUSCULAR VOLUME 81.3 fl (82.0-101.0); MONOCYTE # 0.5 10^3/ul (0.3-0.9); MONOCYTES % 2.2 % (0.0-11.0); NEUTROPHIL # 21.8 10^3/ul (1.6-7.5); NUCLEATED RED BLOOD CELLS # 0.1 10^3/ul (0.0-0.0); RED BLOOD COUNT 2.73 10^6/ul (4.20-5.40); WHITE BLOOD COUNT 23.8 10^3/ul (4.8-10.8)
[2016-09-27 05:27] LABS: CALCIUM 8.1 mg/dl (8.4-10.2); CREATININE 0.82 mg/dl (0.44-1.00); MAGNESIUM 2.1 mg/dl (1.7-2.5); POTASSIUM 3.4 mmol/L (3.5-5.1)
[2016-09-27 06:25] LABS: NEUTROPHILS % 91.5 % (39.0-77.0); PLATELET COUNT 108 10^3/UL (140-415)
[2016-09-27] MEDS: VANCOMYCIN 1 GM in NS 250 ML IVPB SCH (06:35)
[2016-09-27] MEDS: MEROPENEM 500MG/50 ML (PMX) 50 ML IVPB SCH ×3 (06:35→21:57)
[2016-09-27] MEDS: PANTOPRAZOLE 40 MG INJ IV SCH (06:35)
[2016-09-27] MEDS: FUROSEMIDE 20 MG INJ IV SCH ×3 (06:36→17:22)
--- NOTE | 2016-09-27 07:58 | PN ---
Date/Time of Note Date/Time of Note DATE: 09/27/16 TIME: 07:51 Assessment/Plan VTE Prophylaxis VTE Prophylaxis Intervention: other Lines/Catheters IV Catheter Type (from Nrs): PICC Line Central line still needed: Yes Urinary Cath still in place: Yes Reason Cath still needed: other (indicate) Assessment/Plan Chief Complaint/Hosp Course 1. Nonoliguric acute kidney injury. Etiology secondary ATN -Renal function slowly been improving with supportive care continue current treatment plan renally dose meds avoid nephrotoxins - 2. Hypernatremia Patient with a deficit, free water of approximately 4-1/2 L -Increase free water flushes to 400 cc every 4 hours We will start patient on D5 water at 50 cc/h Monitor serial sodium levels 3. Hypokalemia Replete potassium chloride 3. Anemia Monitor H&H levels 4. Mineral bone disorder Monitor calcium phosphorus levels 5. Lactic acidosis secondary to shock Improved -Continue to monitor 6. Sepsis status post shock -Continue antibiotic regimen, -Cultures have been reviewed 7. 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 -Continue treatment plan -Follow-up with surgery 8. Respiratory failure Status post extubation Patient tolerating nasal cannula 9. Volume overload/anasarca -Patient on diuretic therapy monitor hemodynamics and blood pressure 10. History of intracranial hemorrhage in the past status post REHABILITATION CONSULTANT shunt placement that has been stable over time -REHABILITATION CONSULTANT shunt was externalized during the surgery September 21, 2016 due to abdominal infection, per neurosurgical notes may need to be reconnected once patient stable versus removed 11. Hypokalemia Replete with potassium chloride Problems: Subjective 24 Hr Interval Summary Free Text/Dictation Patient seen and examined No acute events overnight Patient with good urinary output Tolerating tube feeding Exam/Review of Systems Vital Signs Vitals Vital Signs Date Time Temp Pulse Resp B/P Pulse Ox O2 Delivery O2 Flow Rate FiO2 09/27/16 06:45 87 28 154/71 92 Nasal Cannula 09/27/16 06:23 6.0 45 09/27/16 04:00 98.2 Intake and Output 09/26/16 09/26/16 09/27/16 15:00 23:00 07:00 Intake Total 810.2 ml 946.76 ml 219.96 ml Output Total 983 ml 950 ml 1104 ml Balance -172.8 ml -3.24 ml -884.04 ml Exam HEENT: Normal cephalic atraumatic Neck: Supple Lungs: Coarse breath sounds bilateral Heart: Sinus tachycardia Abdomen: Positive ostomy, Extremities: Normal to inspection, + edema no cyanosis Neurologic: Limited exam Results Result Diagram: 09/27/16 0450 09/27/16 0450 Results 24 hrs Laboratory Tests Test 09/26/16 09:46 09/26/16 14:30 09/27/16 04:50 Blood Gas Specimen Source Blood arterial Arterial Blood Date Drawn 09/26/2016 10:10:14 AM Arterial Blood pH (Temp corrected) 7.423 Arterial Blood pCO2 (Temp correct) 36.0 Arterial Blood pO2 (Temp corrected) 91.6 H Arterial Blood HCO3 23.0 Arterial Blood Base Excess -1.2 Arterial Blood Oxygen Saturation 95.2 Cain Test N/A Arterial Blood Gas Puncture Site A-Line Arterial Blood Carboxyhemoglobin 0.3 Arterial Blood Methemoglobin 0.5 Blood Gas A-a O2 Differential 80.0 H Oxyhemoglobin Percent 94.4 Total Hemoglobin 7.8 L Blood Gas Temperature 37.0 Blood Gas Respiration Rate 14.0 Blood Gas Actual Respiration Rate 27 Blood Gas Modality MASK - BIPAP FiO2 30.0 Blood Gas IPAP/EPAP Ratio 15/8 Blood Gas Notified Whom JLD Blood Gas Notified Time 09/26/2016 10:21:50 AM Pathologist Review (Hematology) NO Body Fluid Type THORACENTESIS FLUID Body Fluid Volume 825.0 Body Fluid Color YELLOW Body Fluid Appearance HAZY Body Fluid WBC 87 Body Fluid RBC (Auto) 0 Body Fluid Polynuclear WBCs 37 Body Fluid Polynuclear WBCs (%) Body Fluid Mononuclear WBCs 63 Body Fluid Mononuclear Cells % Auto Body Fluid Glucose 122 Body Fluid Total Protein < 2.0 Body Fluid Lactate Dehydrogenase White Blood Count 23.8 #H Red Blood Count 2.73 L Hemoglobin 7.1 L Hematocrit 22.2 L Mean Corpuscular Volume 81.3 L Mean Corpuscular Hemoglobin 26.0 L Mean Corpuscular Hemoglobin Concent 32.0 Red Cell Distribution Width 20.0 H Platelet Count 108 #L Mean Platelet Volume Neutrophils % 91.5 H Lymphocytes % 2.9 L Monocytes % 2.2 Eosinophils % 0.0 Basophils % 0.3 Neutrophils # 21.8 H Lymphocytes # 0.7 L Monocytes # 0.5 Eosinophils # 0.0 Basophils # 0.1 Nucleated Red Blood Cells # 0.1 H Sodium Level 153 H Potassium Level 3.4 L Chloride Level 107 Carbon Dioxide Level 27 Anion Gap 22 H Blood Urea Nitrogen 33 H Creatinine 0.82 Glucose Level 200 Calcium Level 8.1 L Phosphorus Level 5.0 H Magnesium Level 2.1 Vancomycin Level Trough 17.3 Medications Medications Current Medications Morphine Sulfate (morphine) 2 mg Q4H PRN IV PAIN Last administered on 01:04; Admin Dose 2 MG; Start 09/15/16 at 23:30 Ondansetron HCl (Zofran Inj) 4 mg Q6H PRN IV NAUSEA AND/OR VOMITING Last administered on 09/26/16 09:23; Admin Dose 4 MG; Start 09/16/16 at 00:30 Acetaminophen (Tylenol Tab) 650 mg Q6H PRN PO PAIN LEVEL 1-3 OR FEVER Last administered on 09/17/16 10:06; Admin Dose 650 MG; Start 09/16/16 at 00:30 Polyethylene Glycol 17 gm 17 gm DAILY PO Last administered on 09/26/16 08:55; Admin Dose 17 GM; Start 09/20/16 at 11:00 Meropenem/Sodium Chloride 50 ml @ 200 mls/hr Q8 IVPB Last administered on 09/27 06:35; Admin Dose 200 MLS/HR; Start 09/20/16 at 22:00 Fluconazole/ Sodium Chloride 50 ml @ 50 mls/hr Q24H IVPB Last administered on 16:38; Admin Dose 50 MLS/HR; Start 09/20/16 at 16:30 Norepinephrine 16 mg/Dextrose 500 ml @ 1.87 mls/hr TITRATE IV Last administered on 09/22/16 04:08; Admin Dose 56.25 MLS/HR; Start 09/21/16 at 09: 00 Propofol (Diprivan) 100 ml @ 1.671 mls/ hr Q12H IV Last administered on 06:23; Admin Dose 6.684 MLS/HR; Start 09/21/16 at 02:30 Acetaminophen/ Hydrocodone Bitart ([place] (5/325)) 1 tab Q4H PRN PO PAIN LEVEL 4 -7; Start 09/21/16 at 15:00 Acetaminophen/ Hydrocodone Bitart ([place] (5/325)) 2 tab Q4H PRN PO PAIN LEVEL 7 -10; Start 09/21/16 at 15:00 Hydromorphone HCl (Dilaudid) 0.5 mg Q2H PRN IV PAIN; Start 09/21/16 at 15:00 Hydromorphone HCl (Dilaudid) 1 mg Q2H PRN IV PAIN Last administered on 12:22; Admin Dose 1 MG; Start 09/21/16 at 15:00 Docusate Sodium (Colace) 100 mg BID PRN PO CONSTIPATION; Start 09/21/16 at 15: 00 Enoxaparin Sodium (Lovenox) 40 mg DAILY SC ; Start 09/22/16 at 09:00; Status Future Hold Docusate Sodium (Colace Liquid Cup) 100 mg BID NGT Last administered on 21:01; Admin Dose 100 MG; Start 09/22/16 at 21:00 Pantoprazole 40 mg 40 mg DAILY@06 IV Last administered on 09/27/16 06:35; Admin Dose 40 MG; Start 09/26/16 at 06:00 Vancomycin HCl (Vancocin) 250 ml @ 125 mls/hr Q12H IVPB Last administered on 06:35; Admin Dose 125 MLS/HR; Start 09/25/16 at 18:00 IV Flush (NS 10 ml) 10 ml PRN PRN IV IV PROTOCOL; Start 09/25/16 at 12:00 Metoprolol Tartrate 12.5 mg 12.5 mg BID PO Last administered on 09/26/16 21:02 ; Admin Dose 12.5 MG; Start 09/26/16 at 09:00 Amiodarone HCl/ Dextrose (Cordarone Iv/ D5W) 500 ml @ 0 mls/hr Q0M IV Last administered on 09/26/16 11:32; Admin Dose 33.4 MLS/HR; Start 09/26/16 at 10:30 ; Stop 09/27/16 at 10:29 Furosemide 20 mg 20 mg Q6 IV Last administered on 09/27/16 06:36; Admin Dose 20 MG; Start 09/27/16 at 00:00; Stop 09/28/16 at 00:00 Potassium Chloride/Dextrose (D5W + KCl 20 Meq) 1,000 ml @ 50 mls/hr Q20H IV ; Start 09/27/16 at 08:00; Status KIRAN BROUSSARD DO Sep 27, 2016 07:58
[2016-09-27] MEDS ORDERED: D5W + KCL 20 MEQ 1,000 ML IV SCH (08:00)
[2016-09-27] MEDS: POLYETHYLENE GLYCOL 17 GM PACKET PO SCH (08:42)
[2016-09-27] MEDS: DOCUSATE SODIUM 10 MG/ML (10ML CUP) NGT SCH ×2 (08:42→20:50)
[2016-09-27] MEDS: METOPROLOL 25 MG TAB PO SCH ×2 (08:43→20:51)
--- NOTE | 2016-09-27 09:01 | RADRPT ---
PROCEDURE: XR Chest. CLINICAL INDICATION: pna chf TECHNIQUE: Single frontal view of the chest was obtained COMPARISON: Chest x-ray 09/26/2016 FINDINGS: The bilateral lung apices are excluded from the image, slightly limiting evaluation. The nasogastric tube and right PICC line are stable positions. The cardiomediastinal silhouette is within normal limits. There are coarse atherosclerotic calcific ations of the aortic arch. There has been interval increase in hazy opacity at the right lung base which likely represents a pa rtially layering small to moderate right pleural effusion. Underlying atelectasis and / or consolid ation cannot be completely excluded. A small left pleural effusion is likely stable. There has been interval slight decrease in pulmonary vascular congestion and interstitial edema. There are degenerative changes of the visualized spine. No IMPRESSION: 1. Likely interval slight increase in right pleural effusion, now small to moderate in size. Under lying atelectasis and / or consolidation cannot be completely excluded. 2. Stable small left pleural effusion. 3. There was slight decrease in pulmonary vascular congestion and interstitial edema. RPTAT: PP Physician Chato Date Time Electronically viewed and signed by Physician Chato on 09/27/2016 09:01 SEAN/
--- NOTE | 2016-09-27 11:39 | CONS ---
Date/Time of Note Date/Time of Note DATE: 09/27/16 TIME: 11:35 Assessment/Plan Assessment/Plan Chief Complaint/Hosp Course Acute diastolic heart failure: Secondary to volume resuscitation in setting of low albumin and third spacing. Significant anasarca. Improving but still total body overload Paroxysmal afib: converted on amiodarone. Will not continue snf. Remains in sinus. Will discuss anticoagulation when active issues resolve and no procedures to be done Septic shock: from intraabdominal abscess and possible infected ELECTROCARDIOGRAPH OPERATOR shunt. S/p sigmoid colectomy. Now off levophed and lactate improved Acute respiratory failure: Due to septic shock, severe metabolic acidosis as well as pulm edema NSTEMI: Trop mildly elevated likely type II in the setting of septic shock. Echo from 09/18 showed normal EF and no significant valvular disease. Repeat trop normalized Diverticulitis complicated by abscess s/p sigmoid colectomy and now colostomy Coagulopathy: ?DIC. Resolved h/o ICH with ELECTROCARDIOGRAPH OPERATOR shunt -continue lasix 20mg IV BID for slow diuresis -hold amiodarone -increase to metoprolol 25mg BID Problems: Consultation Date/Type/Reason Admit Date/Time Sep 15, 2016 at 21:35 Initial Consult Date 09/21/16 Type of Consultation: Cardiology Referring Provider: AUNDREA ARMENDARIZ 24 HR Interval Summary Free Text/Dictation Had afib with RVR yesterday. Eventually converted. Was given IV dig 250mcg x 1 and amio bolus plus drip. Remained in sinus overnight. Still on BiPAP. S/p thoracentesis Exam/Review of Systems Vital Signs Vitals Vital Signs Date Time Temp Pulse Resp B/P Pulse Ox O2 Delivery O2 Flow Rate FiO2 09/27/16 11:30 90 97 50 09/27/16 10:15 24 124/54 09/27/16 09:30 BIPAP 09/27/16 09:00 6.0 09/27/16 08:00 97.8 Intake and Output 09/26/16 09/26/16 09/27/16 15:00 23:00 07:00 Intake Total 810.2 ml 946.76 ml 219.96 ml Output Total 983 ml 950 ml 1104 ml Balance -172.8 ml -3.24 ml -884.04 ml Exam Constitutional: alert, other (on BiPAP) Psych: no complaints Head: atraumatic, normocephalic Neck: jvd (8cm) Respiratory: crackles/rales, diminished breath sounds, No clear to auscultation Cardiovascular: edema (2+), regular rate and rhythm, No systolic murmur Gastrointestinal: non-tender, soft, No distended Neurological: nl mental status, nl speech Results Result Diagram: 09/27/16 0450 09/27/16 0450 Results 24 hrs Laboratory Tests Test 09/26/16 14:30 09/27/16 04:50 Pathologist Review (Hematology) NO Body Fluid Type THORACENTESIS FLUID Body Fluid Volume 825.0 Body Fluid Color YELLOW Body Fluid Appearance HAZY Body Fluid WBC 87 Body Fluid RBC (Auto) 0 Body Fluid Polynuclear WBCs 37 Body Fluid Polynuclear WBCs (%) Body Fluid Mononuclear WBCs 63 Body Fluid Mononuclear Cells % Auto Body Fluid Glucose 122 Body Fluid Total Protein < 2.0 Body Fluid Lactate Dehydrogenase White Blood Count 23.8 #H Red Blood Count 2.73 L Hemoglobin 7.1 L Hematocrit 22.2 L Mean Corpuscular Volume 81.3 L Mean Corpuscular Hemoglobin 26.0 L Mean Corpuscular Hemoglobin Concent 32.0 Red Cell Distribution Width 20.0 H Platelet Count 108 #L Mean Platelet Volume Neutrophils % 91.5 H Lymphocytes % 2.9 L Monocytes % 2.2 Eosinophils % 0.0 Basophils % 0.3 Neutrophils # 21.8 H Lymphocytes # 0.7 L Monocytes # 0.5 Eosinophils # 0.0 Basophils # 0.1 Nucleated Red Blood Cells # 0.1 H Sodium Level 153 H Potassium Level 3.4 L Chloride Level 107 Carbon Dioxide Level 27 Anion Gap 22 H Blood Urea Nitrogen 33 H Creatinine 0.82 Glucose Level 200 Calcium Level 8.1 L Phosphorus Level 5.0 H Magnesium Level 2.1 Vancomycin Level Trough 17.3 Medications Medications Current Medications Morphine Sulfate (morphine) 2 mg Q4H PRN IV PAIN Last administered on 01:04; Admin Dose 2 MG; Start 09/15/16 at 23:30 Ondansetron HCl (Zofran Inj) 4 mg Q6H PRN IV NAUSEA AND/OR VOMITING Last administered on 09/26/16 09:23; Admin Dose 4 MG; Start 09/16/16 at 00:30 Acetaminophen (Tylenol Tab) 650 mg Q6H PRN PO PAIN LEVEL 1-3 OR FEVER Last administered on 09/17/16 10:06; Admin Dose 650 MG; Start 09/16/16 at 00:30 Polyethylene Glycol 17 gm 17 gm DAILY PO Last administered on 09/26/16 08:55; Admin Dose 17 GM; Start 09/20/16 at 11:00 Meropenem/Sodium Chloride 50 ml @ 200 mls/hr Q8 IVPB Last administered on 09/27 06:35; Admin Dose 200 MLS/HR; Start 09/20/16 at 22:00 Fluconazole/ Sodium Chloride 50 ml @ 50 mls/hr Q24H IVPB Last administered on 16:38; Admin Dose 50 MLS/HR; Start 09/20/16 at 16:30 Norepinephrine 16 mg/Dextrose 500 ml @ 1.87 mls/hr TITRATE IV Last administered on 09/22/16 04:08; Admin Dose 56.25 MLS/HR; Start 09/21/16 at 09: 00 Propofol (Diprivan) 100 ml @ 1.671 mls/ hr Q12H IV Last administered on 06:23; Admin Dose 6.684 MLS/HR; Start 09/21/16 at 02:30 Acetaminophen/ Hydrocodone Bitart ([place] (5/325)) 1 tab Q4H PRN PO PAIN LEVEL 4 -7; Start 09/21/16 at 15:00 Acetaminophen/ Hydrocodone Bitart ([place] (5/325)) 2 tab Q4H PRN PO PAIN LEVEL 7 -10; Start 09/21/16 at 15:00 Hydromorphone HCl (Dilaudid) 0.5 mg Q2H PRN IV PAIN; Start 09/21/16 at 15:00 Hydromorphone HCl (Dilaudid) 1 mg Q2H PRN IV PAIN Last administered on 12:22; Admin Dose 1 MG; Start 09/21/16 at 15:00 Docusate Sodium (Colace) 100 mg BID PRN PO CONSTIPATION; Start 09/21/16 at 15: 00 Enoxaparin Sodium (Lovenox) 40 mg DAILY SC ; Start 09/22/16 at 09:00; Status Future Hold Docusate Sodium (Colace Liquid Cup) 100 mg BID NGT Last administered on 21:01; Admin Dose 100 MG; Start 09/22/16 at 21:00 Pantoprazole 40 mg 40 mg DAILY@06 IV Last administered on 09/27/16 06:35; Admin Dose 40 MG; Start 09/26/16 at 06:00 Vancomycin HCl (Vancocin) 250 ml @ 125 mls/hr Q12H IVPB Last administered on 06:35; Admin Dose 125 MLS/HR; Start 09/25/16 at 18:00 IV Flush (NS 10 ml) 10 ml PRN PRN IV IV PROTOCOL; Start 09/25/16 at 12:00 Furosemide (Lasix) 20 mg Q6 IV Last administered on 09/27/16 06:36; Admin Dose 20 MG; Start 09/27/16 at 00:00; Stop 09/28/16 at 00:00 Metoprolol Tartrate (Lopressor) 25 mg BID PO ; Start 09/27/16 at 21:00 GUSTAVO RAMON Sep 27, 2016 11:39
--- NOTE | 2016-09-27 11:43 | CONS ---
Date/Time of Note Date/Time of Note DATE: 09/27/16 TIME: 11:40 Consult Date/Type/Reason Admit Date/Time Sep 15, 2016 at 21:35 Initial Consult Date 09/21/16 Type of Consultation: Pulmonary Ordering Provider: AUNDREA ARMENDARIZ Subjective Patient underwent thoracentesis with 800 cc removed yesterday. Still remains on BiPAP. Still has significant neuromuscular weakness. Objective Vital Signs Date Time Temp Pulse Resp B/P Pulse Ox O2 Delivery O2 Flow Rate FiO2 09/27/16 11:30 90 97 50 09/27/16 10:15 24 124/54 09/27/16 09:30 BIPAP 09/27/16 09:00 6.0 09/27/16 08:00 97.8 Intake and Output 09/26/16 09/26/16 09/27/16 15:00 23:00 07:00 Intake Total 810.2 ml 946.76 ml 219.96 ml Output Total 983 ml 950 ml 1104 ml Balance -172.8 ml -3.24 ml -884.04 ml Exam PHYSICAL EXAMINATION GENERAL: Elderly Lady on noninvasive positive pressure ventilation appears comfortable at rest. VITAL SIGNS: see below. HEENT: Pupils equal, round, and reactive to light. CARDIAC: S1, S2, 1/6 systolic ejection murmur CHEST: Diminished air entry bilaterally. ABDOMEN: Mildly distended. Bowel sounds present no guarding or rebound EXTREMITIES: No cyanosis, clubbing edema +1 NEUROLOGIC: Generalized weakness Results/Medications Result Diagram: 09/27/16 0450 09/27/16 0450 Results 24 hrs Laboratory Tests Test 09/26/16 14:30 09/27/16 04:50 Pathologist Review (Hematology) NO Body Fluid Type THORACENTESIS FLUID Body Fluid Volume 825.0 Body Fluid Color YELLOW Body Fluid Appearance HAZY Body Fluid WBC 87 Body Fluid RBC (Auto) 0 Body Fluid Polynuclear WBCs 37 Body Fluid Polynuclear WBCs (%) Body Fluid Mononuclear WBCs 63 Body Fluid Mononuclear Cells % Auto Body Fluid Glucose 122 Body Fluid Total Protein < 2.0 Body Fluid Lactate Dehydrogenase White Blood Count 23.8 #H Red Blood Count 2.73 L Hemoglobin 7.1 L Hematocrit 22.2 L Mean Corpuscular Volume 81.3 L Mean Corpuscular Hemoglobin 26.0 L Mean Corpuscular Hemoglobin Concent 32.0 Red Cell Distribution Width 20.0 H Platelet Count 108 #L Mean Platelet Volume Neutrophils % 91.5 H Lymphocytes % 2.9 L Monocytes % 2.2 Eosinophils % 0.0 Basophils % 0.3 Neutrophils # 21.8 H Lymphocytes # 0.7 L Monocytes # 0.5 Eosinophils # 0.0 Basophils # 0.1 Nucleated Red Blood Cells # 0.1 H Sodium Level 153 H Potassium Level 3.4 L Chloride Level 107 Carbon Dioxide Level 27 Anion Gap 22 H Blood Urea Nitrogen 33 H Creatinine 0.82 Glucose Level 200 Calcium Level 8.1 L Phosphorus Level 5.0 H Magnesium Level 2.1 Vancomycin Level Trough 17.3 Medications Current Medications Morphine Sulfate (morphine) 2 mg Q4H PRN IV PAIN Last administered on 01:04; Admin Dose 2 MG; Start 09/15/16 at 23:30 Ondansetron HCl (Zofran Inj) 4 mg Q6H PRN IV NAUSEA AND/OR VOMITING Last administered on 09/26/16 09:23; Admin Dose 4 MG; Start 09/16/16 at 00:30 Acetaminophen (Tylenol Tab) 650 mg Q6H PRN PO PAIN LEVEL 1-3 OR FEVER Last administered on 09/17/16 10:06; Admin Dose 650 MG; Start 09/16/16 at 00:30 Polyethylene Glycol 17 gm 17 gm DAILY PO Last administered on 09/26/16 08:55; Admin Dose 17 GM; Start 09/20/16 at 11:00 Meropenem/Sodium Chloride 50 ml @ 200 mls/hr Q8 IVPB Last administered on 09/27 06:35; Admin Dose 200 MLS/HR; Start 09/20/16 at 22:00 Fluconazole/ Sodium Chloride 50 ml @ 50 mls/hr Q24H IVPB Last administered on 16:38; Admin Dose 50 MLS/HR; Start 09/20/16 at 16:30 Norepinephrine 16 mg/Dextrose 500 ml @ 1.87 mls/hr TITRATE IV Last administered on 09/22/16 04:08; Admin Dose 56.25 MLS/HR; Start 09/21/16 at 09: 00 Propofol (Diprivan) 100 ml @ 1.671 mls/ hr Q12H IV Last administered on 06:23; Admin Dose 6.684 MLS/HR; Start 09/21/16 at 02:30 Acetaminophen/ Hydrocodone Bitart ([place] (5/325)) 1 tab Q4H PRN PO PAIN LEVEL 4 -7; Start 09/21/16 at 15:00 Acetaminophen/ Hydrocodone Bitart ([place] (5/325)) 2 tab Q4H PRN PO PAIN LEVEL 7 -10; Start 09/21/16 at 15:00 Hydromorphone HCl (Dilaudid) 0.5 mg Q2H PRN IV PAIN; Start 09/21/16 at 15:00 Hydromorphone HCl (Dilaudid) 1 mg Q2H PRN IV PAIN Last administered on 12:22; Admin Dose 1 MG; Start 09/21/16 at 15:00 Docusate Sodium (Colace) 100 mg BID PRN PO CONSTIPATION; Start 09/21/16 at 15: 00 Enoxaparin Sodium (Lovenox) 40 mg DAILY SC ; Start 09/22/16 at 09:00; Status Future Hold Docusate Sodium (Colace Liquid Cup) 100 mg BID NGT Last administered on 21:01; Admin Dose 100 MG; Start 09/22/16 at 21:00 Pantoprazole 40 mg 40 mg DAILY@06 IV Last administered on 09/27/16 06:35; Admin Dose 40 MG; Start 09/26/16 at 06:00 Vancomycin HCl (Vancocin) 250 ml @ 125 mls/hr Q12H IVPB Last administered on 06:35; Admin Dose 125 MLS/HR; Start 09/25/16 at 18:00 IV Flush (NS 10 ml) 10 ml PRN PRN IV IV PROTOCOL; Start 09/25/16 at 12:00 Furosemide (Lasix) 20 mg Q6 IV Last administered on 09/27/16 06:36; Admin Dose 20 MG; Start 09/27/16 at 00:00; Stop 09/28/16 at 00:00 Metoprolol Tartrate (Lopressor) 25 mg BID PO ; Start 09/27/16 at 21:00 Assessment/Plan Chief Complaint/Hosp Course Assessment 1. Severe sepsis and hypoxemic respiratory failure. Differential includes healthcare associated pneumonia versus aspiration pneumonia. Oxygenation improved currently on 40% FiO2. Postextubation worsening respiratory distress requiring noninvasive positive pressure ventilation. Chest x-ray shows pleural effusions with compressive atelectasis. Status post thoracentesis 800 cc 2. Possible infected WIRING MECHANIC shunt. Status post externalization 3. Status post bowel resection. 4. Severe sepsis with metabolic acidosis clinically improved 5. Postop anemia, hemoglobin 7.2 continue to monitor 6. Electrolyte abnormalities hyperkalemia and hypernatremia Plan 1. Continue BiPAP trial of nasal cannula if stable 2.' neurosurgery and general surgery recommendations, 3. Continue broad-spectrum antibiotics 4. Monitor lactic acid. Transfusion packed red blood cells according to general surgery surgery 5. DVT and GI prophylaxis 6. Renal recommendations regarding electrolyte abnormalities, consider increasing diuretics Discussed with staff Critical care time 40 minutes. Problems: DAMIEN GUADARRAMA MD, [facility] Sep 27, 2016 11:43
--- NOTE | 2016-09-27 12:23 | CONS ---
Date/Time of Note Date/Time of Note DATE: 09/27/16 TIME: 12:20 Assessment/Plan Assessment/Plan Chief Complaint/Hosp Course No acute changes. Patient is awake, comfortable on BiPAP, she had thoracentesis yesterday with 800 cc of serous fluid being aspirated from right pleural space Temperature 97.8 pulse 84 respirations 20 blood pressure 124/54 saturation 97 on BiPAP WBC 23.8 H&H 7.1 and 22.2 platelet count 108 neutrophils 91.5 BN 33 creatinine 0.82 Indwelling's: PICC line placed on September 25 ventriculostomy Shore catheter intra- abdominal drainage catheters Allergies: Penicillins Antibiotics: Vancomycin, fluconazole, meropenem Physical elimination: Well-developed well-nourished elderly woman who is intubated sedated, in no distress. Normocephalic sclera nonicteric. Bugle mucosa dry. Neck is supple, trachea midline. Chest rise symmetrical breath sounds diminished to bases. Heart: S1-S2. Abdomen distended, soft, bowel tones hypoactive. Extremities without cyanosis, with trace 1+ edema bilateral lower extremities. Skin: Pale with anasarca. Assessment: 1. S/p septic shock 2. Perforated sigmoid colon status post colectomy with end colostomy and lysis of adhesions on September 21, 2016, status post abdominal lavage and lysis of adhesions and resection of distal transverse colon 09/24/16 3. 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 Acute renal failure 5. Transaminitis, improving 6. Acute respiratory failure, on BiPAP status post extubated 7. Healthcare associated pneumonia, possibly aspiration 8. Leukocytosis possibly reactive Plan: Hemodynamically stable, will repeat cultures, continue antibiotics, surgical and pulmonary recommendations Discussed with staff Problems: Consultation Date/Type/Reason Admit Date/Time Sep 15, 2016 at 21:35 Type of Consultation: d Referring Provider: AUNDREA ARMENDARIZ Exam/Review of Systems Vital Signs Vitals Vital Signs Date Time Temp Pulse Resp B/P Pulse Ox O2 Delivery O2 Flow Rate FiO2 09/27/16 11:30 90 97 50 09/27/16 10:15 24 124/54 09/27/16 09:30 BIPAP 09/27/16 09:00 6.0 09/27/16 08:00 97.8 Intake and Output 09/26/16 09/26/16 09/27/16 15:00 23:00 07:00 Intake Total 810.2 ml 946.76 ml 361.62 ml Output Total 983 ml 950 ml 1104 ml Balance -172.8 ml -3.24 ml -742.38 ml Results Result Diagram: 09/27/16 0450 09/27/16 0450 Results 24 hrs Laboratory Tests Test 09/26/16 14:30 09/27/16 04:50 Pathologist Review (Hematology) NO Body Fluid Type THORACENTESIS FLUID Body Fluid Volume 825.0 Body Fluid Color YELLOW Body Fluid Appearance HAZY Body Fluid WBC 87 Body Fluid RBC (Auto) 0 Body Fluid Polynuclear WBCs 37 Body Fluid Polynuclear WBCs (%) Body Fluid Mononuclear WBCs 63 Body Fluid Mononuclear Cells % Auto Body Fluid Glucose 122 Body Fluid Total Protein < 2.0 Body Fluid Lactate Dehydrogenase White Blood Count 23.8 #H Red Blood Count 2.73 L Hemoglobin 7.1 L Hematocrit 22.2 L Mean Corpuscular Volume 81.3 L Mean Corpuscular Hemoglobin 26.0 L Mean Corpuscular Hemoglobin Concent 32.0 Red Cell Distribution Width 20.0 H Platelet Count 108 #L Mean Platelet Volume Neutrophils % 91.5 H Lymphocytes % 2.9 L Monocytes % 2.2 Eosinophils % 0.0 Basophils % 0.3 Neutrophils # 21.8 H Lymphocytes # 0.7 L Monocytes # 0.5 Eosinophils # 0.0 Basophils # 0.1 Nucleated Red Blood Cells # 0.1 H Sodium Level 153 H Potassium Level 3.4 L Chloride Level 107 Carbon Dioxide Level 27 Anion Gap 22 H Blood Urea Nitrogen 33 H Creatinine 0.82 Glucose Level 200 Calcium Level 8.1 L Phosphorus Level 5.0 H Magnesium Level 2.1 Vancomycin Level Trough 17.3 Medications Medications Current Medications Morphine Sulfate (morphine) 2 mg Q4H PRN IV PAIN Last administered on 01:04; Admin Dose 2 MG; Start 09/15/16 at 23:30 Ondansetron HCl (Zofran Inj) 4 mg Q6H PRN IV NAUSEA AND/OR VOMITING Last administered on 09/26/16 09:23; Admin Dose 4 MG; Start 09/16/16 at 00:30 Acetaminophen (Tylenol Tab) 650 mg Q6H PRN PO PAIN LEVEL 1-3 OR FEVER Last administered on 09/17/16 10:06; Admin Dose 650 MG; Start 09/16/16 at 00:30 Polyethylene Glycol 17 gm 17 gm DAILY PO Last administered on 09/26/16 08:55; Admin Dose 17 GM; Start 09/20/16 at 11:00 Meropenem/Sodium Chloride 50 ml @ 200 mls/hr Q8 IVPB Last administered on 09/27 06:35; Admin Dose 200 MLS/HR; Start 09/20/16 at 22:00 Fluconazole/ Sodium Chloride 50 ml @ 50 mls/hr Q24H IVPB Last administered on 16:38; Admin Dose 50 MLS/HR; Start 09/20/16 at 16:30 Norepinephrine 16 mg/Dextrose 500 ml @ 1.87 mls/hr TITRATE IV Last administered on 09/22/16 04:08; Admin Dose 56.25 MLS/HR; Start 09/21/16 at 09: 00 Propofol (Diprivan) 100 ml @ 1.671 mls/ hr Q12H IV Last administered on 06:23; Admin Dose 6.684 MLS/HR; Start 09/21/16 at 02:30 Acetaminophen/ Hydrocodone Bitart ([place] (5/325)) 1 tab Q4H PRN PO PAIN LEVEL 4 -7; Start 09/21/16 at 15:00 Acetaminophen/ Hydrocodone Bitart ([place] (5/325)) 2 tab Q4H PRN PO PAIN LEVEL 7 -10; Start 09/21/16 at 15:00 Hydromorphone HCl (Dilaudid) 0.5 mg Q2H PRN IV PAIN; Start 09/21/16 at 15:00 Hydromorphone HCl (Dilaudid) 1 mg Q2H PRN IV PAIN Last administered on 12:22; Admin Dose 1 MG; Start 09/21/16 at 15:00 Docusate Sodium (Colace) 100 mg BID PRN PO CONSTIPATION; Start 09/21/16 at 15: 00 Enoxaparin Sodium (Lovenox) 40 mg DAILY SC ; Start 09/22/16 at 09:00; Status Future Hold Docusate Sodium (Colace Liquid Cup) 100 mg BID NGT Last administered on 21:01; Admin Dose 100 MG; Start 09/22/16 at 21:00 Pantoprazole (Protonix Iv) 40 mg DAILY@06 IV Last administered on 09/27/16 06: 35; Admin Dose 40 MG; Start 09/26/16 at 06:00 IV Flush (NS 10 ml) 10 ml PRN PRN IV IV PROTOCOL; Start 09/25/16 at 12:00 Furosemide (Lasix) 20 mg Q6 IV Last administered on 09/27/16 12:16; Admin Dose 20 MG; Start 09/27/16 at 00:00; Stop 09/28/16 at 00:00 Metoprolol Tartrate 25 mg 25 mg BID PO ; Start 09/27/16 at 21:00 Vancomycin HCl/ Dextrose/Water (Vancocin/D5W) 150 ml @ 75 mls/hr Q12H IVPB ; Start 09/27/16 at 18:00 CORINA ESTRELLA NP Sep 27, 2016 12:22
--- NOTE | 2016-09-27 12:39 | CONS ---
Date/Time of Note Date/Time of Note DATE: 09/27/16 TIME: 12:34 Assessment/Plan Assessment/Plan Problems: (1) Hydrocephalus Comment: She remains with externalized MANUFACTURER shunt. Will raise drainage bag to 10 cm above heart as beginning of challenge. Continue to record output. Plan to obtain CT brain in a few days, sooner if neurological change. Consultation Date/Type/Reason Admit Date/Time Sep 15, 2016 at 21:35 Initial Consult Date 09/21/16 Type of Consultation: neurosurgery Reason for Consultation MANUFACTURER shunt / hydrocephalus Referring Provider: AUNDREA ARMENDARIZ 24 HR Interval Summary Free Text/Dictation In ICU, extubated with FM. Drainage bag at heart level with continueous drainage Subjective hx not possible: pt critical Exam/Review of Systems Vital Signs Vitals Vital Signs Date Time Temp Pulse Resp B/P Pulse Ox O2 Delivery O2 Flow Rate FiO2 09/27/16 11:30 90 97 50 09/27/16 10:15 24 124/54 09/27/16 09:30 BIPAP 09/27/16 09:00 6.0 09/27/16 08:00 97.8 Intake and Output 09/26/16 09/26/16 09/27/16 15:00 23:00 07:00 Intake Total 810.2 ml 946.76 ml 361.62 ml Output Total 983 ml 950 ml 1104 ml Balance -172.8 ml -3.24 ml -742.38 ml Exam Constitutional: alert, distress, non-verbal Neck: other (shunt tubing dressed) Neurological: other (eyes open spontaneously and regards examiner; no vocalizations; 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 Evidence of old R temperooccipital bleed or other insult. shunt in place. Ventricles not enlarged, perhaps a bit small. Result Diagram: 09/27/16 0450 09/27/16 0450 Results 24 hrs Laboratory Tests Test 09/26/16 14:30 09/27/16 04:50 Pathologist Review (Hematology) NO Body Fluid Type THORACENTESIS FLUID Body Fluid Volume 825.0 Body Fluid Color YELLOW Body Fluid Appearance HAZY Body Fluid WBC 87 Body Fluid RBC (Auto) 0 Body Fluid Polynuclear WBCs 37 Body Fluid Polynuclear WBCs (%) Body Fluid Mononuclear WBCs 63 Body Fluid Mononuclear Cells % Auto Body Fluid Glucose 122 Body Fluid Total Protein < 2.0 Body Fluid Lactate Dehydrogenase White Blood Count 23.8 #H Red Blood Count 2.73 L Hemoglobin 7.1 L Hematocrit 22.2 L Mean Corpuscular Volume 81.3 L Mean Corpuscular Hemoglobin 26.0 L Mean Corpuscular Hemoglobin Concent 32.0 Red Cell Distribution Width 20.0 H Platelet Count 108 #L Mean Platelet Volume Neutrophils % 91.5 H Lymphocytes % 2.9 L Monocytes % 2.2 Eosinophils % 0.0 Basophils % 0.3 Neutrophils # 21.8 H Lymphocytes # 0.7 L Monocytes # 0.5 Eosinophils # 0.0 Basophils # 0.1 Nucleated Red Blood Cells # 0.1 H Sodium Level 153 H Potassium Level 3.4 L Chloride Level 107 Carbon Dioxide Level 27 Anion Gap 22 H Blood Urea Nitrogen 33 H Creatinine 0.82 Glucose Level 200 Calcium Level 8.1 L Phosphorus Level 5.0 H Magnesium Level 2.1 Vancomycin Level Trough 17.3 Medications Medications Current Medications Morphine Sulfate (morphine) 2 mg Q4H PRN IV PAIN Last administered on 01:04; Admin Dose 2 MG; Start 09/15/16 at 23:30 Ondansetron HCl (Zofran Inj) 4 mg Q6H PRN IV NAUSEA AND/OR VOMITING Last administered on 09/26/16 09:23; Admin Dose 4 MG; Start 09/16/16 at 00:30 Acetaminophen (Tylenol Tab) 650 mg Q6H PRN PO PAIN LEVEL 1-3 OR FEVER Last administered on 09/17/16 10:06; Admin Dose 650 MG; Start 09/16/16 at 00:30 Polyethylene Glycol 17 gm 17 gm DAILY PO Last administered on 09/26/16 08:55; Admin Dose 17 GM; Start 09/20/16 at 11:00 Meropenem/Sodium Chloride 50 ml @ 200 mls/hr Q8 IVPB Last administered on 09/27 06:35; Admin Dose 200 MLS/HR; Start 09/20/16 at 22:00 Fluconazole/ Sodium Chloride 50 ml @ 50 mls/hr Q24H IVPB Last administered on 16:38; Admin Dose 50 MLS/HR; Start 09/20/16 at 16:30 Norepinephrine 16 mg/Dextrose 500 ml @ 1.87 mls/hr TITRATE IV Last administered on 09/22/16 04:08; Admin Dose 56.25 MLS/HR; Start 09/21/16 at 09: 00 Propofol (Diprivan) 100 ml @ 1.671 mls/ hr Q12H IV Last administered on 06:23; Admin Dose 6.684 MLS/HR; Start 09/21/16 at 02:30 Acetaminophen/ Hydrocodone Bitart ([place] (5/325)) 1 tab Q4H PRN PO PAIN LEVEL 4 -7; Start 09/21/16 at 15:00 Acetaminophen/ Hydrocodone Bitart ([place] (5/325)) 2 tab Q4H PRN PO PAIN LEVEL 7 -10; Start 09/21/16 at 15:00 Hydromorphone HCl (Dilaudid) 0.5 mg Q2H PRN IV PAIN; Start 09/21/16 at 15:00 Hydromorphone HCl (Dilaudid) 1 mg Q2H PRN IV PAIN Last administered on 12:22; Admin Dose 1 MG; Start 09/21/16 at 15:00 Docusate Sodium (Colace) 100 mg BID PRN PO CONSTIPATION; Start 09/21/16 at 15: 00 Enoxaparin Sodium (Lovenox) 40 mg DAILY SC ; Start 09/22/16 at 09:00; Status Future Hold Docusate Sodium (Colace Liquid Cup) 100 mg BID NGT Last administered on 21:01; Admin Dose 100 MG; Start 09/22/16 at 21:00 Pantoprazole (Protonix Iv) 40 mg DAILY@06 IV Last administered on 09/27/16 06: 35; Admin Dose 40 MG; Start 09/26/16 at 06:00 IV Flush (NS 10 ml) 10 ml PRN PRN IV IV PROTOCOL; Start 09/25/16 at 12:00 Furosemide (Lasix) 20 mg Q6 IV Last administered on 09/27/16 12:16; Admin Dose 20 MG; Start 09/27/16 at 00:00; Stop 09/28/16 at 00:00 Metoprolol Tartrate 25 mg 25 mg BID PO ; Start 09/27/16 at 21:00 Vancomycin HCl/ Dextrose/Water (Vancocin/D5W) 150 ml @ 75 mls/hr Q12H IVPB ; Start 09/27/16 at 18:00 NIRAJ LANDRY MD Sep 27, 2016 12:39
--- NOTE | 2016-09-27 14:31 | PN ---
Date/Time of Note Date/Time of Note DATE: 09/27/16 TIME: 14:27 Assessment/Plan Lines/Catheters IV Catheter Type (from Nrs): PICC Line Shore in Place (from Nrs): Yes Assessment/Plan Assessment/Plan [facility] Progress Note Date of Service: 09/27/2016 Place of service: [facility] ICU Today's Assessment & Plan: Overall stable and improving, albeit slowly. Still requiring high flow mask. Not improving as fast as I was hoping for. WBC rise noted and still somewhat expected. Abdomen remains benign. No indication for acute surgical intervention. I called and updated the patient's ex- over the phone and answered all questions. With above assessment, I recommended the following for today: 1. Continue aggressive medical management 2. Continue wound VAC; dressing change 3 times a week 3. Cont gentle diuresis 4. Cont gastric trophic feeds to a goal of 60 cc/h as tolerated 5. Labs in am 6. Hold Lovenox until her platelet count is over 100 and her INR is less than 2 7. Please maintain multidisciplinary discussion regarding fluid intake since this is a fragile surgical patient with recent sepsis and shock Thank you again for your great care of this very pleasant patient and wonderful family. If there are any questions, please feel free to call me at [phone]. Nature of presenting problem: High severity Please note that, given the extensive number of diagnoses or management options , the extensive amount and/or complexity of data needed to be reviewed, and I risk of complications and/or morbidity or mortality, this qualifies as high complexity type of decision-making. Disclaimer: Inadvertent spelling and grammatical errors are likely due to EHR/ dictation software use and do not reflect on the quality of delivered patient care. Also, please note that the electronic time recorded on this node does not necessarily reflect the actual time of the visit. Updated Clinical Summary: A very pleasant 70-year-old lady without significant known past medical history other than a CLASSIFIED AD CLERK shunt placement many years ago which she did not remember or report, presenting with what appears to be a sigmoid colon abscess or pericolonic abscess, which seemed to be a complication of diverticulitis. S/p IR drainage 09/09/16 with removal of 20 cc pus and placement of a 10 Fr. pigtail catheter at [facility]. D/c home 09/12/16. Re-presented to [place] ED 09/15/16 after being diverted from [facility] (due to internal disaster diversion) where CT was done showing adequate placement of the percutaneous drain near the sigmoid colon and decompressed sigmoid colon abscess, no obvious free air or significant spillage of stool in the abdominal cavity, and incidental finding of tail of the CLASSIFIED AD CLERK shunt in the pelvis (new from right upper quadrant position of the same drain on the CT scan at [facility]). Transfer to [facility] 09/15/2016 for further cares. S/p upsizing of drain to 12 Fr pigtail on 09/17/16 (communication with colon demonstrated; no obvious free communication to rest of peritoneal space). Patient decompensated in the early hours of the morning on 09/21/2016 and had to be transferred to the intensive care unit with need for endotracheal tube intubation, central line placement, and resuscitation for treatment of shock with lactic acidosis and evidence of peritonitis and free air on the new chest, abdomen, and pelvis CT scan. S/p a rather challenging sigmoid colectomy with performance of end colostomy (Reid's procedure), takedown of splenic flexure of the colon, lysis of adhesions (60 minutes), and abdominal lavage at [facility] on 09/21/16; diagnosis of colon ischemia (distal transverse colon and descending colon) during reentry through recent laparotomy incision with exploration of abdominal cavity, takedown of colostomy, completion left hemicolectomy with resection of distal transverse colon, lysis of adhesions, abdominal lavage, performance of an end colostomy [facility] 09/24/16. Extubated post op evening of 09/25/16. Comorbidities: 1. Perforated sigmoid colon (see below) 2. Status post ventriculoperitoneal shunt placement. 3. Status post prior hysterectomy and bilateral salpingo-oophorectomy through Pfannenstiel incision 4. S/p IR drainage 09/09/16 with removal of 20 cc pus and placement of a 10 Fr. pigtail catheter at [facility]. 5. Readmission to [facility] 09/15/16 with upsizing of drain to 12 Fr pigtail on (communication with colon demonstrated; no obvious free communication to rest of peritoneal space). Septic shock with multiorgan failure 09/21/2016 requiring ICU admission with intubation and pressors. 6. S/p a rather challenging sigmoid colectomy with performance of end colostomy (Reid's procedure), takedown of splenic flexure of the colon, lysis of adhesions (60 minutes), and abdominal lavage at [facility] on 09/21/16 7. Colon ischemia (distal transverse colon and descending colon) 8. S/p reentry through recent laparotomy incision with exploration of abdominal cavity, takedown of colostomy, completion left hemicolectomy with resection of distal transverse colon, lysis of adhesions, abdominal lavage, performance of an end colostomy [facility] 09/24/16 Subjective: No major events or complaints overnight other than above; no obvious abd pain and appears to be under control with medications; no observed or reported n/v/d ; no observed or reported sob or cp; + bowel activity; - activity; breathing seems to be easy. Objective: Vitals: See below I's & O's: See below Exam: GENERAL: On exam, the patient was lying in bed and appeared to be comfortable and in no acute distress. On high flow mask. ABDOMEN: Soft, nontender and nondistended. Incision dressings are clean, dry and intact without any obvious evidence of underlying erythema, edema, discharge , or hernia. Surgical drain ss. There are no peritoneal signs or guarding. Ostomy appears to be viable and productive with stool and air in the bag. SKIN: Skin appears to be pink and feels warm to touch. NEUROLOGIC: Patient is awake and follows very simple commands. Labs: See below Exam/Review of Systems Vital Signs Vitals Vital Signs Date Time Temp Pulse Resp B/P Pulse Ox O2 Delivery O2 Flow Rate FiO2 09/27/16 15:26 84 99 50 09/27/16 14:45 24 140/60 09/27/16 14:00 BIPAP 09/27/16 12:00 98.1 09/27/16 09:00 6.0 Intake and Output 09/26/16 09/26/16 09/27/16 15:00 23:00 07:00 Intake Total 810.2 ml 946.76 ml 361.62 ml Output Total 983 ml 950 ml 1104 ml Balance -172.8 ml -3.24 ml -742.38 ml Results Result Diagram: 09/27/16 0450 09/27/16 0450 ALEXSANDER DUARTE M.D. Sep 27, 2016 14:31 Result Diagram: 09/27/16 0450 09/27/16 0450 ALEXSANDER DUARTE M.D. Sep 27, 2016 14:31
--- NOTE | 2016-09-27 15:22 | PN ---
Date/Time of Note Date/Time of Note DATE: 09/27/16 TIME: 15: Assessment/Plan VTE Prophylaxis VTE Prophylaxis Intervention: SCD's Assessment/Plan Chief Complaint/Hosp Course 1. Severe sepsis with systemic shock and organ dysfunction 2/2 #2 2. Non resolving diverticulitis with abscess and sigmoid colon perforation * s/p sigmoid colectomy with end colostomy (Reid's procedure) and adhesiolyis on 09/21/16 * Status post completion of hemicolectomy and colostomy placement * Patient also now has wound VAC on anterior abdominal wall 3. Lactic and Metabolic acidosis 2/2 above-resolved 4. Mild troponin elevation likely type 2 from #1: Stable 5. Acute transaminitis 2/2 shock liver: improving 6. History of intracranial hemorrhage in the past status post POULTRY FEED SUPERVISOR shunt placement that has been stable over time * POULTRY FEED SUPERVISOR shunt was externalized during the surgery September 21, 2016 due to abdominal infection, per neurosurgical notes may need to be reconnected once patient stable versus removed 7. Hypernatremia likely secondary to #1: improved 8. Severe coagulopathy also as a result of #1: improving 9. Iron deficiency hypochromic anemia on iron infusion therapy 10. Diffuse anasarca as well as bilateral pleural effusions likely associated hypoalbuminemia 11. Bilateral pneumonia with vascular congestion concerning for BUD S 12. Acute renal insufficiency secondary to #1 PLAN: * Continue ICU care management * Continue ventilator monitoring and management /follow pulmonary recommendations * Resume tube feeds when stable and if okay with surgery * Continue broad-spectrum antibiotics per ID * Status post blood transfusion, serial labs, electrolytes replacement as indicated * Continue serial lactic acid trend * Patient's management remains dynamic depending on her clinical symptoms and lab findings, she continues require close monitoring, follow-ups and frequent reevaluation * Appreciate all consultants * Further interventions per clinical care Prophylaxis : SCDs / PPI Problems: Subjective 24 Hr Interval Summary Subjective hx not possible: pt non-verbal Exam/Review of Systems Vital Signs Vitals Vital Signs Date Time Temp Pulse Resp B/P Pulse Ox O2 Delivery O2 Flow Rate FiO2 09/27/16 14:45 87 24 140/60 99 09/27/16 14:00 BIPAP 09/27/16 13:41 50 09/27/16 12:00 98.1 09/27/16 09:00 6.0 Intake and Output 09/26/16 09/26/16 09/27/16 15:00 23:00 07:00 Intake Total 810.2 ml 946.76 ml 361.62 ml Output Total 983 ml 950 ml 1104 ml Balance -172.8 ml -3.24 ml -742.38 ml Exam Constitutional: non-verbal Respiratory: clear to auscultation Cardiovascular: regular rate and rhythm Gastrointestinal: soft, No distended Musculoskeletal: nl extremities to inspection Results Result Diagram: 09/27/16 0450 09/27/16 0450 Results 24 hrs Laboratory Tests Test 09/27/16 04:50 White Blood Count 23.8 #H Red Blood Count 2.73 L Hemoglobin 7.1 L Hematocrit 22.2 L Mean Corpuscular Volume 81.3 L Mean Corpuscular Hemoglobin 26.0 L Mean Corpuscular Hemoglobin Concent 32.0 Red Cell Distribution Width 20.0 H Platelet Count 108 #L Mean Platelet Volume Neutrophils % 91.5 H Lymphocytes % 2.9 L Monocytes % 2.2 Eosinophils % 0.0 Basophils % 0.3 Neutrophils # 21.8 H Lymphocytes # 0.7 L Monocytes # 0.5 Eosinophils # 0.0 Basophils # 0.1 Nucleated Red Blood Cells # 0.1 H Sodium Level 153 H Potassium Level 3.4 L Chloride Level 107 Carbon Dioxide Level 27 Anion Gap 22 H Blood Urea Nitrogen 33 H Creatinine 0.82 Glucose Level 200 Calcium Level 8.1 L Phosphorus Level 5.0 H Magnesium Level 2.1 Vancomycin Level Trough 17.3 Medications Medications Current Medications Morphine Sulfate (morphine) 2 mg Q4H PRN IV PAIN Last administered on 01:04; Admin Dose 2 MG; Start 09/15/16 at 23:30 Ondansetron HCl (Zofran Inj) 4 mg Q6H PRN IV NAUSEA AND/OR VOMITING Last administered on 09/26/16 09:23; Admin Dose 4 MG; Start 09/16/16 at 00:30 Acetaminophen (Tylenol Tab) 650 mg Q6H PRN PO PAIN LEVEL 1-3 OR FEVER Last administered on 09/17/16 10:06; Admin Dose 650 MG; Start 09/16/16 at 00:30 Polyethylene Glycol 17 gm 17 gm DAILY PO Last administered on 09/26/16 08:55; Admin Dose 17 GM; Start 09/20/16 at 11:00 Meropenem/Sodium Chloride 50 ml @ 200 mls/hr Q8 IVPB Last administered on 09/27 14:45; Admin Dose 200 MLS/HR; Start 09/20/16 at 22:00 Fluconazole/ Sodium Chloride 50 ml @ 50 mls/hr Q24H IVPB Last administered on 16:38; Admin Dose 50 MLS/HR; Start 09/20/16 at 16:30 Norepinephrine 16 mg/Dextrose 500 ml @ 1.87 mls/hr TITRATE IV Last administered on 09/22/16 04:08; Admin Dose 56.25 MLS/HR; Start 09/21/16 at 09: 00 Propofol (Diprivan) 100 ml @ 1.671 mls/ hr Q12H IV Last administered on 06:23; Admin Dose 6.684 MLS/HR; Start 09/21/16 at 02:30 Acetaminophen/ Hydrocodone Bitart ([place] (5/325)) 1 tab Q4H PRN PO PAIN LEVEL 4 -7; Start 09/21/16 at 15:00 Acetaminophen/ Hydrocodone Bitart ([place] (5/325)) 2 tab Q4H PRN PO PAIN LEVEL 7 -10; Start 09/21/16 at 15:00 Hydromorphone HCl (Dilaudid) 0.5 mg Q2H PRN IV PAIN; Start 09/21/16 at 15:00 Hydromorphone HCl (Dilaudid) 1 mg Q2H PRN IV PAIN Last administered on 12:22; Admin Dose 1 MG; Start 09/21/16 at 15:00 Docusate Sodium (Colace) 100 mg BID PRN PO CONSTIPATION; Start 09/21/16 at 15: 00 Enoxaparin Sodium (Lovenox) 40 mg DAILY SC ; Start 09/22/16 at 09:00; Status Future Hold Docusate Sodium (Colace Liquid Cup) 100 mg BID NGT Last administered on 21:01; Admin Dose 100 MG; Start 09/22/16 at 21:00 Pantoprazole (Protonix Iv) 40 mg DAILY@06 IV Last administered on 09/27/16 06: 35; Admin Dose 40 MG; Start 09/26/16 at 06:00 IV Flush (NS 10 ml) 10 ml PRN PRN IV IV PROTOCOL; Start 09/25/16 at 12:00 Furosemide (Lasix) 20 mg Q6 IV Last administered on 09/27/16t 12:16; Admin Dose 20 MG; Start 09/27/16 at 00:00; Stop 09/28/16 at 00:00 Metoprolol Tartrate 25 mg 25 mg BID PO ; Start 09/27/16 at 21:00 Vancomycin HCl/ Dextrose/Water (Vancocin/D5W) 150 ml @ 75 mls/hr Q12H IVPB ; Start 09/27/16 at 18:00 DALE RODARTE Sep 27, 2016 15:22
[2016-09-27 15:52] LABS: CREATININE 0.77 mg/dl (0.44-1.00); POTASSIUM 3.1 mmol/L (3.5-5.1)
[2016-09-27] MEDS: FLUCONAZOLE 100 MG/NS (PMX) 50 ML IVPB SCH (16:50)
[2016-09-27] MEDS: HYDROmorphONE 1 MG/ML SYG IV PRN (16:50)
[2016-09-27] MEDS: VANCOMYCIN 750 MG in DEXTROSE 5% 150 ML IVPB SCH (17:21)
[2016-09-27] MEDS: D5W + KCL 20 MEQ 1,000 ML IV SCH (18:19)
[2016-09-28] VITALS (102 sets, daily range): BP systolic 103–147; BP diastolic 40–95; PULSE 68–124; RESP 9–43
[2016-09-28] MEDS: FUROSEMIDE 20 MG INJ IV SCH ×3 (00:37→17:22)
[2016-09-28] MEDS: PROPOFOL 100 ML IV SCH ×2 (02:30→13:43)
[2016-09-28] MEDS: PANTOPRAZOLE 40 MG INJ IV SCH (05:31)
[2016-09-28] MEDS: MEROPENEM 500MG/50 ML (PMX) 50 ML IVPB SCH ×3 (05:32→21:22)
[2016-09-28] MEDS: VANCOMYCIN 750 MG in DEXTROSE 5% 150 ML IVPB SCH ×2 (05:38→17:22)
[2016-09-28 05:47] LABS: ABNORMAL IP MESSAGE 1; HEMATOCRIT 23.8 % (37.0-47.0); HEMOGLOBIN 7.6 g/dl (12.0-16.0); MEAN CORPUSCULAR HEMOGLOBIN 25.9 pg (29.0-33.0); MEAN CORPUSCULAR HGB CONC 31.9 g/dl (32.0-37.0); NUCLEATED RED BLOOD CELLS% 0.4 /100WBC (0.0-0.0); PLATELET COUNT 156 10^3/UL (140-415); RED BLOOD COUNT 2.94 10^6/ul (4.20-5.40); RED CELL DISTRIBUTION WIDTH 21.4 % (11.5-14.5); WHITE BLOOD COUNT 30.7 10^3/ul (4.8-10.8)
[2016-09-28 06:08] LABS: MEAN PLATELET VOLUME 13.4 fl (7.4-10.4)
[2016-09-28 06:09] LABS: POSITIVE DIFF @See below
[2016-09-28 06:17] LABS: CALCIUM 7.1 mg/dl (8.4-10.2); CREATININE 0.63 mg/dl (0.44-1.00); MAGNESIUM 1.8 mg/dl (1.7-2.5); PHOSPHORUS 3.1 mg/dl (2.5-4.9)
[2016-09-28 06:21] LABS: POTASSIUM 2.8 mmol/L (3.5-5.1)
--- NOTE | 2016-09-28 07:15 | PN ---
Date/Time of Note Date/Time of Note DATE: 09/28/16 TIME: 07:11 Assessment/Plan Lines/Catheters IV Catheter Type (from [facility]): PICC Line Shore in Place (from [facility]): Yes Assessment/Plan Assessment/Plan [facility] Progress Note Date of Service: 09/28/2016 Place of service: [facility] ICU Today's Assessment & Plan: Overall stable, but with rising WBC and need for high flow mask. Abd appears benign. Cultures negative. Being covered with broad spec antimicrobials. No indication for acute surgical intervention. CXR shows infiltrate; ? pneumonia or aspiration; ? relation to WBC rise; no productive cough noted or reported. May explain why still requires high flow O2. With above assessment, I recommended the following for today: 1. Continue aggressive medical management 2. Continue wound VAC; dressing change 3 times a week 3. Cont gentle diuresis 4. Cont gastric trophic feeds to a goal of 60 cc/h as tolerated 5. Labs in am 6. Hold Lovenox until her platelet count is over 100 and her INR is less than 2 7. Please maintain multidisciplinary discussion regarding fluid intake since this is a fragile surgical patient with recent sepsis and shock 8. Targeted antimicrobial therapy to culture results Thank you again for your great care of this very pleasant patient and wonderful family. If there are any questions, please feel free to call me at [phone]. Nature of presenting problem: High severity Please note that, given the extensive number of diagnoses or management options , the extensive amount and/or complexity of data needed to be reviewed, and I risk of complications and/or morbidity or mortality, this qualifies as high complexity type of decision-making. Disclaimer: Inadvertent spelling and grammatical errors are likely due to EHR/ dictation software use and do not reflect on the quality of delivered patient care. Also, please note that the electronic time recorded on this node does not necessarily reflect the actual time of the visit. 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 S/p IR drainage 09/09/16 with removal of 20 cc pus and placement of a 10 Fr. pigtail catheter at [facility]. D/c home 09/12/16. Re-presented to [place] ED 09/15/16 after being diverted from [facility] (due to internal disaster diversion) where CT was done showing adequate placement of the percutaneous drain near the sigmoid colon and decompressed sigmoid colon abscess, no obvious free air or significant spillage of stool in the abdominal cavity, and incidental finding of tail of the BARREL DEDENTING MACHINE OPERATOR shunt in the pelvis (new from right upper quadrant position of the same drain on the CT scan at [facility]). Transfer to [facility] 09/15/2016 for further cares. S/p upsizing of drain to 12 Fr pigtail on 09/17/16 (communication with colon demonstrated; no obvious free communication to rest of peritoneal space). Patient decompensated in the early hours of the morning on 09/21/2016 and had to be transferred to the intensive care unit with need for endotracheal tube intubation, central line placement, and resuscitation for treatment of shock with lactic acidosis and evidence of peritonitis and free air on the new chest, abdomen, and pelvis CT scan. S/p a rather challenging sigmoid colectomy with performance of end colostomy (Reid's procedure), takedown of splenic flexure of the colon, lysis of adhesions (60 minutes), and abdominal lavage at [facility] on 09/21/16; diagnosis of colon ischemia (distal transverse colon and descending colon) during reentry through recent laparotomy incision with exploration of abdominal cavity, takedown of colostomy, completion left hemicolectomy with resection of distal transverse colon, lysis of adhesions, abdominal lavage, performance of an end colostomy [facility] 09/24/16. Extubated post op evening of 09/25/16. Comorbidities: 1. Perforated sigmoid colon (see below) 2. Status post ventriculoperitoneal shunt placement. 3. Status post prior hysterectomy and bilateral salpingo-oophorectomy through Pfannenstiel incision 4. S/p IR drainage 09/09/16 with removal of 20 cc pus and placement of a 10 Fr. pigtail catheter at [facility]. 5. Readmission to [facility] 09/15/16 with upsizing of drain to 12 Fr pigtail on (communication with colon demonstrated; no obvious free communication to rest of peritoneal space). Septic shock with multiorgan failure 09/21/2016 requiring ICU admission with intubation and pressors. 6. S/p a rather challenging sigmoid colectomy with performance of end colostomy (Reid's procedure), takedown of splenic flexure of the colon, lysis of adhesions (60 minutes), and abdominal lavage at [facility] on 09/21/16 7. Colon ischemia (distal transverse colon and descending colon) 8. S/p reentry through recent laparotomy incision with exploration of abdominal cavity, takedown of colostomy, completion left hemicolectomy with resection of distal transverse colon, lysis of adhesions, abdominal lavage, performance of an end colostomy [facility] 09/24/16 Subjective: No major events or complaints overnight other than above; no obvious abd pain and appears to be under control with medications; no observed or reported n/v/d ; no observed or reported sob or cp; + bowel activity; - activity; breathing seems to be easy. Objective: Vitals: See below I's & O's: See below Exam: GENERAL: On exam, the patient was lying in bed and appeared to be comfortable and in no acute distress. On high flow mask. ABDOMEN: Soft, nontender and nondistended. Incision dressings are clean, dry and intact without any obvious evidence of underlying erythema, edema, discharge , or hernia. Surgical drain ss. There are no peritoneal signs or guarding. Ostomy appears to be viable and productive with stool and air in the bag. SKIN: Skin appears to be pink and feels warm to touch. NEUROLOGIC: Patient is awake and follows very simple commands. Labs: See below Exam/Review of Systems Vital Signs Vitals Vital Signs Date Time Temp Pulse Resp B/P Pulse Ox O2 Delivery O2 Flow Rate FiO2 09/28/16 05:45 90 28 141/60 98 09/28/16 04:51 50 09/28/16 04:00 97.8 BIPAP 09/27/16 09:00 6.0 Intake and Output 09/27/16 09/27/16 09/28/16 15:00 23:00 07:00 Intake Total 891.64 ml 700 ml 460 ml Output Total 602 ml 810 ml 1210 ml Balance 289.64 ml -110 ml -750 ml Results Result Diagram: 09/28/16 0500 09/28/16 0500 ALEXSANDER DUARTE M.D. Sep 28, 2016 07:15
[2016-09-28] MEDS: HYDROmorphONE 1 MG/ML SYG IV PRN ×2 (07:31→16:33)
[2016-09-28 08:10] LABS: LYMPHOCYTES # 1.2 10^3/ul (0.8-2.9); MONOCYTE # 0.3 10^3/ul (0.3-0.9); NEUTROPHIL # 28.2 10^3/ul (1.6-7.5)
[2016-09-28 08:11] LABS: ANISOCYTOSIS 1+ (0-0)
--- NOTE | 2016-09-28 08:11 | PN ---
Date/Time of Note Date/Time of Note DATE: 09/28/16 TIME: 08:09 Assessment/Plan VTE Prophylaxis VTE Prophylaxis Intervention: other Lines/Catheters IV Catheter Type (from Nrs): PICC Line Central line still needed: Yes Urinary Cath still in place: Yes Reason Cath still needed: other (indicate) Assessment/Plan Chief Complaint/Hosp Course 1. Nonoliguric acute kidney injury. Etiology secondary ATN -Renal function has been improving with supportive care continue current treatment plan renally dose meds avoid nephrotoxins - 2. Hypernatremia Patient with free water deficit of approximately 3-1/2 L Improving slowly Continue free water flushes at current rate, continue D5 water Monitor serial sodium levels 3. Hypokalemia secondary to diuretics Replete potassium chloride Start Aldactone 50 mg daily 3. Anemia Monitor H&H levels 4. Mineral bone disorder Monitor calcium phosphorus levels 5. Lactic acidosis secondary to shock Improved -Continue to monitor 6. Sepsis status post shock -Continue antibiotic regimen, -Cultures have been reviewed 7. 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 -Continue treatment plan -Follow-up with surgery 8. Respiratory failure Status post extubation Patient tolerating nasal cannula 9. Volume overload/anasarca -Patient on diuretic therapy monitor hemodynamics and blood pressure 10. History of intracranial hemorrhage in the past status post COSMETIC CONSULTANT shunt placement that has been stable over time -COSMETIC CONSULTANT shunt was externalized during the surgery September 21, 2016 due to abdominal infection, per neurosurgical notes may need to be reconnected once patient stable versus removed Problems: Subjective 24 Hr Interval Summary Free Text/Dictation Patient seen and examined Critically ill on BiPAP Good urinary output No other events noted Exam/Review of Systems Vital Signs Vitals Vital Signs Date Time Temp Pulse Resp B/P Pulse Ox O2 Delivery O2 Flow Rate FiO2 09/28/16 07:00 87 20 137/70 100 BIPAP 09/28/16 04:51 50 09/28/16 04:00 97.8 09/27/16 09:00 6.0 Intake and Output 09/27/16 09/27/16 09/28/16 14:59 22:59 06:59 Intake Total 963.30 ml 1050 ml 1255 ml Output Total 552 ml 760 ml 1310 ml Balance 411.30 ml 290 ml -55 ml Exam HEENT: Head is normocephalic, NECK: Supple. HEART: Irregular LUNGS: Show diminished breath sounds at base. ABDOMEN: Soft, nontender to palpation without rebound or guarding. EXTREMITIES: Negative for clubbing, cyanosis. DERMATOLOGIC: No rashes. MUSCULOSKELETAL: No joint effusions, NEUROLOGIC: No change in exam. Results Result Diagram: 09/28/16 0500 09/28/16 0500 Results 24 hrs Laboratory Tests Test 09/27/16 15:00 09/28/16 05:00 Sodium Level 153 H 150 H Potassium Level 3.1 L 2.8 *L Chloride Level 105 104 Carbon Dioxide Level 31 34 H Anion Gap 20 H 15 Blood Urea Nitrogen 32 H 29 H Creatinine 0.77 0.63 Glucose Level 233 H 283 H Calcium Level 8.0 L 7.1 L White Blood Count 30.7 #H Red Blood Count 2.94 L Hemoglobin 7.6 L Hematocrit 23.8 L Mean Corpuscular Volume 81.0 L Mean Corpuscular Hemoglobin 25.9 L Mean Corpuscular Hemoglobin Concent 31.9 L Red Cell Distribution Width 21.4 H Platelet Count 156 # Mean Platelet Volume 13.4 #H Neutrophils % Lymphocytes % Monocytes % Eosinophils % Basophils % Nucleated Red Blood Cells % 0.4 H Neutrophils # Lymphocytes # Monocytes # Eosinophils # Basophils # Nucleated Red Blood Cells # Phosphorus Level 3.1 Magnesium Level 1.8 Medications Medications Current Medications Morphine Sulfate (morphine) 2 mg Q4H PRN IV PAIN Last administered on 01:04; Admin Dose 2 MG; Start 09/15/16 at 23:30 Ondansetron HCl (Zofran Inj) 4 mg Q6H PRN IV NAUSEA AND/OR VOMITING Last administered on 09/26/16 09:23; Admin Dose 4 MG; Start 09/16/16 at 00:30 Acetaminophen (Tylenol Tab) 650 mg Q6H PRN PO PAIN LEVEL 1-3 OR FEVER Last administered on 09/17/16 10:06; Admin Dose 650 MG; Start 09/16/16 at 00:30 Polyethylene Glycol 17 gm 17 gm DAILY PO Last administered on 09/26/16 08:55; Admin Dose 17 GM; Start 09/20/16 at 11:00 Meropenem/Sodium Chloride 50 ml @ 200 mls/hr Q8 IVPB Last administered on 09/28 05:32; Admin Dose 200 MLS/HR; Start 09/20/16 at 22:00 Fluconazole/ Sodium Chloride 50 ml @ 50 mls/hr Q24H IVPB Last administered on 16:50; Admin Dose 50 MLS/HR; Start 09/20/16 at 16:30 Norepinephrine 16 mg/Dextrose 500 ml @ 1.87 mls/hr TITRATE IV Last administered on 09/22/16 04:08; Admin Dose 56.25 MLS/HR; Start 09/21/16 at 09: 00 Propofol (Diprivan) 100 ml @ 1.671 mls/ hr Q12H IV Last administered on 06:23; Admin Dose 6.684 MLS/HR; Start 09/21/16 at 02:30 Acetaminophen/ Hydrocodone Bitart ([place] (5/325)) 1 tab Q4H PRN PO PAIN LEVEL 4 -7; Start 09/21/16 at 15:00 Acetaminophen/ Hydrocodone Bitart ([place] (5/325)) 2 tab Q4H PRN PO PAIN LEVEL 7 -10; Start 09/21/16 at 15:00 Hydromorphone HCl (Dilaudid) 0.5 mg Q2H PRN IV PAIN; Start 09/21/16 at 15:00 Hydromorphone HCl (Dilaudid) 1 mg Q2H PRN IV PAIN Last administered on 07:31; Admin Dose 1 MG; Start 09/21/16 at 15:00 Docusate Sodium (Colace) 100 mg BID PRN PO CONSTIPATION; Start 09/21/16 at 15: 00 Enoxaparin Sodium (Lovenox) 40 mg DAILY SC ; Start 09/22/16 at 09:00; Status Future Hold Docusate Sodium (Colace Liquid Cup) 100 mg BID NGT Last administered on 20:50; Admin Dose 100 MG; Start 09/22/16 at 21:00 Pantoprazole (Protonix Iv) 40 mg DAILY@06 IV Last administered on 09/28/16 05: 31; Admin Dose 40 MG; Start 09/26/16 at 06:00 IV Flush (NS 10 ml) 10 ml PRN PRN IV IV PROTOCOL; Start 09/25/16 at 12:00 Metoprolol Tartrate 25 mg 25 mg BID PO Last administered on 09/27/16 20:51; Admin Dose 25 MG; Start 09/27/16 at 21:00 Vancomycin HCl 750 mg/Dextrose/ Water 150 ml @ 75 mls/hr Q12H IVPB Last administered on 09/28/16 05:38; Admin Dose 75 MLS/HR; Start 09/27/16 at 18:00 Potassium Chloride/Dextrose (D5W + KCl 20 Meq) 1,000 ml @ 75 mls/hr Q30E45H IV Last administered on 09/27/16 18:19; Admin Dose 75 MLS/HR; Start 09/27/16 at 18:00 Potassium Chloride (Potassium Chloride Pwd/Soln) 60 meq ONCE ONCE JT ; Start at 08:30; Stop 09/28/16 at 08:31; Status KIRAN BROUSSARD DO Sep 28, 2016 08:11
[2016-09-28] MEDS ORDERED: POTASSIUM CHLORIDE 20 MEQ POWDER FOR ORAL SOLN JT ONE (08:30)
[2016-09-28] MEDS: DOCUSATE SODIUM 10 MG/ML (10ML CUP) NGT SCH ×2 (08:44→21:19)
[2016-09-28] MEDS: SPIRONOLACTONE 50 MG TAB NGT SCH (08:44)
[2016-09-28] MEDS: METOPROLOL 25 MG TAB PO SCH ×2 (08:44→21:19)
[2016-09-28] MEDS: POLYETHYLENE GLYCOL 17 GM PACKET PO SCH (08:44)
--- NOTE | 2016-09-28 08:47 | CONS ---
Date/Time of Note Date/Time of Note DATE: 09/28/16 TIME: 08:44 Assessment/Plan Assessment/Plan Additional Assessment/Plan Continue with close family support Continue to reorient patient Continue to encourage her that she is improving. Consultation Date/Type/Reason Admit Date/Time Sep 15, 2016 at 21:35 Initial Consult Date 09/21/16 Type of Consultation: Palliative Referring Provider: AUNDREA ARMENDARIZ 24 HR Interval Summary Free Text/Dictation Postdated note for patient seen on September 25 Currently on BiPAP tolerating lower doses of FiO2 She is nonverbal and appears to be comfortable Other medical problems include Acute respiratory failure post INTERPRETER DEAF Fluid and electrolyte abnormalities Sepsis syndrome Diverticulitis diverticular abscess Delirium I had an extensive conversation with her ex- at the bedside and discussed current ongoing level of care. Patient is still critically ill in the intensive care unit and being closely followed by multiple consultants. Her overall clinical condition is still tenuous. Exam/Review of Systems Vital Signs Vitals Vital Signs Date Time Temp Pulse Resp B/P Pulse Ox O2 Delivery O2 Flow Rate FiO2 09/28/16 07:30 87 99 50 09/28/16 07:00 20 137/70 BIPAP 09/28/16 04:00 97.8 09/27/16 09:00 6.0 Intake and Output 09/27/16 09/27/16 09/28/16 15:00 23:00 07:00 Intake Total 891.64 ml 1125 ml 1280 ml Output Total 602 ml 810 ml 1460 ml Balance 289.64 ml 315 ml -180 ml Results Result Diagram: 09/28/16 0500 09/28/16 0500 Results 24 hrs Laboratory Tests Test 09/27/16 15:00 09/28/16 05:00 Sodium Level 153 H 150 H Potassium Level 3.1 L 2.8 *L Chloride Level 105 104 Carbon Dioxide Level 31 34 H Anion Gap 20 H 15 Blood Urea Nitrogen 32 H 29 H Creatinine 0.77 0.63 Glucose Level 233 H 283 H Calcium Level 8.0 L 7.1 L White Blood Count 30.7 #H Red Blood Count 2.94 L Hemoglobin 7.6 L Hematocrit 23.8 L Mean Corpuscular Volume 81.0 L Mean Corpuscular Hemoglobin 25.9 L Mean Corpuscular Hemoglobin Concent 31.9 L Red Cell Distribution Width 21.4 H Platelet Count 156 # Mean Platelet Volume 13.4 #H Neutrophils % 92.0 H Lymphocytes % 4.0 L Monocytes % 1.0 Eosinophils % Basophils % Nucleated Red Blood Cells % 0.4 H Neutrophils # 28.2 H Band Neutrophils # 28.2 H Lymphocytes # 1.2 Monocytes # 0.3 Eosinophils # Basophils # Nucleated Red Blood Cells # Anisocytosis 1+ Phosphorus Level 3.1 Magnesium Level 1.8 Medications Medications Current Medications Morphine Sulfate (morphine) 2 mg Q4H PRN IV PAIN Last administered on 01:04; Admin Dose 2 MG; Start 09/15/16 at 23:30 Ondansetron HCl (Zofran Inj) 4 mg Q6H PRN IV NAUSEA AND/OR VOMITING Last administered on 09/26/16 09:23; Admin Dose 4 MG; Start 09/16/16 at 00:30 Acetaminophen (Tylenol Tab) 650 mg Q6H PRN PO PAIN LEVEL 1-3 OR FEVER Last administered on 09/17/16 10:06; Admin Dose 650 MG; Start 09/16/16 at 00:30 Polyethylene Glycol 17 gm 17 gm DAILY PO Last administered on 09/26/16 08:55; Admin Dose 17 GM; Start 09/20/16 at 11:00 Meropenem/Sodium Chloride 50 ml @ 200 mls/hr Q8 IVPB Last administered on 09/28 05:32; Admin Dose 200 MLS/HR; Start 09/20/16 at 22:00 Fluconazole/ Sodium Chloride 50 ml @ 50 mls/hr Q24H IVPB Last administered on 16:50; Admin Dose 50 MLS/HR; Start 09/20/16 at 16:30 Norepinephrine 16 mg/Dextrose 500 ml @ 1.87 mls/hr TITRATE IV Last administered on 09/22/16 04:08; Admin Dose 56.25 MLS/HR; Start 09/21/16 at 09: 00 Propofol (Diprivan) 100 ml @ 1.671 mls/ hr Q12H IV Last administered on 06:23; Admin Dose 6.684 MLS/HR; Start 09/21/16 at 02:30 Acetaminophen/ Hydrocodone Bitart ([place] (5/325)) 1 tab Q4H PRN PO PAIN LEVEL 4 -7; Start 09/21/16 at 15:00 Acetaminophen/ Hydrocodone Bitart ([place] (5/325)) 2 tab Q4H PRN PO PAIN LEVEL 7 -10; Start 09/21/16 at 15:00 Hydromorphone HCl (Dilaudid) 0.5 mg Q2H PRN IV PAIN; Start 09/21/16 at 15:00 Hydromorphone HCl (Dilaudid) 1 mg Q2H PRN IV PAIN Last administered on 07:31; Admin Dose 1 MG; Start 09/21/16 at 15:00 Docusate Sodium (Colace) 100 mg BID PRN PO CONSTIPATION; Start 09/21/16 at 15: 00 Enoxaparin Sodium (Lovenox) 40 mg DAILY SC ; Start 09/22/16 at 09:00; Status Future Hold Docusate Sodium (Colace Liquid Cup) 100 mg BID NGT Last administered on 20:50; Admin Dose 100 MG; Start 09/22/16 at 21:00 Pantoprazole (Protonix Iv) 40 mg DAILY@06 IV Last administered on 09/28/16 05: 31; Admin Dose 40 MG; Start 09/26/16 at 06:00 IV Flush (NS 10 ml) 10 ml PRN PRN IV IV PROTOCOL; Start 09/25/16 at 12:00 Metoprolol Tartrate 25 mg 25 mg BID PO Last administered on 09/27/16 20:51; Admin Dose 25 MG; Start 09/27/16 at 21:00 Vancomycin HCl 750 mg/Dextrose/ Water 150 ml @ 75 mls/hr Q12H IVPB Last administered on 09/28/16 05:38; Admin Dose 75 MLS/HR; Start 09/27/16 at 18:00 Potassium Chloride/Dextrose (D5W + KCl 20 Meq) 1,000 ml @ 75 mls/hr [id number] IV Last administered on 09/27/16 18:19; Admin Dose 75 MLS/HR; Start 09/27/16 at 18:00 Spironolactone (Aldactone) 50 mg DAILY NGT ; Start 09/28/16 at 09:00 YANETH VIDAL Sep 28, 2016 08:47
--- NOTE | 2016-09-28 08:49 | CONS ---
Date/Time of Note Date/Time of Note DATE: 09/28/16 TIME: 08:48 Consultation Date/Type/Reason Admit Date/Time Sep 15, 2016 at 21:35 Initial Consult Date 09/21/16 Type of Consultation: Palliative Referring Provider: AUNDREA ARMENDARIZ 24 HR Interval Summary Free Text/Dictation Posterior note from visit 09/27 .......she appears to be still in some degree of respiratory distress on CPAP although tolerating more amounts of FiO2. I did speak to her today and encouraged her that she is improving and that I will continue to speak to her ex- and update him on her clinical condition. She shook her head that she is in agreement with this plan. Subjective hx not possible: pt non-verbal Exam/Review of Systems Vital Signs Vitals Vital Signs Date Time Temp Pulse Resp B/P Pulse Ox O2 Delivery O2 Flow Rate FiO2 09/28/16 07:30 87 99 50 09/28/16 07:00 20 137/70 BIPAP 09/28/16 04:00 97.8 09/27/16 09:00 6.0 Intake and Output 09/27/16 09/27/16 09/28/16 15:00 23:00 07:00 Intake Total 891.64 ml 1125 ml 1280 ml Output Total 602 ml 810 ml 1460 ml Balance 289.64 ml 315 ml -180 ml Results Result Diagram: 09/28/16 0500 09/28/16 0500 Results 24 hrs Laboratory Tests Test 09/27/16 15:00 09/28/16 05:00 Sodium Level 153 H 150 H Potassium Level 3.1 L 2.8 *L Chloride Level 105 104 Carbon Dioxide Level 31 34 H Anion Gap 20 H 15 Blood Urea Nitrogen 32 H 29 H Creatinine 0.77 0.63 Glucose Level 233 H 283 H Calcium Level 8.0 L 7.1 L White Blood Count 30.7 #H Red Blood Count 2.94 L Hemoglobin 7.6 L Hematocrit 23.8 L Mean Corpuscular Volume 81.0 L Mean Corpuscular Hemoglobin 25.9 L Mean Corpuscular Hemoglobin Concent 31.9 L Red Cell Distribution Width 21.4 H Platelet Count 156 # Mean Platelet Volume 13.4 #H Neutrophils % 92.0 H Lymphocytes % 4.0 L Monocytes % 1.0 Eosinophils % Basophils % Nucleated Red Blood Cells % 0.4 H Neutrophils # 28.2 H Band Neutrophils # 28.2 H Lymphocytes # 1.2 Monocytes # 0.3 Eosinophils # Basophils # Nucleated Red Blood Cells # Anisocytosis 1+ Phosphorus Level 3.1 Magnesium Level 1.8 Medications Medications Current Medications Morphine Sulfate (morphine) 2 mg Q4H PRN IV PAIN Last administered on 01:04; Admin Dose 2 MG; Start 09/15/16 at 23:30 Ondansetron HCl (Zofran Inj) 4 mg Q6H PRN IV NAUSEA AND/OR VOMITING Last administered on 09/26/16 09:23; Admin Dose 4 MG; Start 09/16/16 at 00:30 Acetaminophen (Tylenol Tab) 650 mg Q6H PRN PO PAIN LEVEL 1-3 OR FEVER Last administered on 09/17/16 10:06; Admin Dose 650 MG; Start 09/16/16 at 00:30 Polyethylene Glycol 17 gm 17 gm DAILY PO Last administered on 09/26/16 08:55; Admin Dose 17 GM; Start 09/20/16 at 11:00 Meropenem/Sodium Chloride 50 ml @ 200 mls/hr Q8 IVPB Last administered on 09/28 05:32; Admin Dose 200 MLS/HR; Start 09/20/16 at 22:00 Fluconazole/ Sodium Chloride 50 ml @ 50 mls/hr Q24H IVPB Last administered on 16:50; Admin Dose 50 MLS/HR; Start 09/20/16 at 16:30 Norepinephrine 16 mg/Dextrose 500 ml @ 1.87 mls/hr TITRATE IV Last administered on 09/22/16 04:08; Admin Dose 56.25 MLS/HR; Start 09/21/16 at 09: 00 Propofol (Diprivan) 100 ml @ 1.671 mls/ hr Q12H IV Last administered on 06:23; Admin Dose 6.684 MLS/HR; Start 09/21/16 at 02:30 Acetaminophen/ Hydrocodone Bitart ([place] (5/325)) 1 tab Q4H PRN PO PAIN LEVEL 4 -7; Start 09/21/16 at 15:00 Acetaminophen/ Hydrocodone Bitart ([place] (5/325)) 2 tab Q4H PRN PO PAIN LEVEL 7 -10; Start 09/21/16 at 15:00 Hydromorphone HCl (Dilaudid) 0.5 mg Q2H PRN IV PAIN; Start 09/21/16 at 15:00 Hydromorphone HCl (Dilaudid) 1 mg Q2H PRN IV PAIN Last administered on 07:31; Admin Dose 1 MG; Start 09/21/16 at 15:00 Docusate Sodium (Colace) 100 mg BID PRN PO CONSTIPATION; Start 09/21/16 at 15: 00 Enoxaparin Sodium (Lovenox) 40 mg DAILY SC ; Start 09/22/16 at 09:00; Status Future Hold Docusate Sodium (Colace Liquid Cup) 100 mg BID NGT Last administered on 20:50; Admin Dose 100 MG; Start 09/22/16 at 21:00 Pantoprazole (Protonix Iv) 40 mg DAILY@06 IV Last administered on 09/28/16 05: 31; Admin Dose 40 MG; Start 09/26/16 at 06:00 IV Flush (NS 10 ml) 10 ml PRN PRN IV IV PROTOCOL; Start 09/25/16 at 12:00 Metoprolol Tartrate 25 mg 25 mg BID PO Last administered on 09/27/16 20:51; Admin Dose 25 MG; Start 09/27/16 at 21:00 Vancomycin HCl 750 mg/Dextrose/ Water 150 ml @ 75 mls/hr Q12H IVPB Last administered on 09/28/16 05:38; Admin Dose 75 MLS/HR; Start 09/27/16 at 18:00 Potassium Chloride/Dextrose (D5W + KCl 20 Meq) 1,000 ml @ 75 mls/hr [id number] IV Last administered on 09/27/16 18:19; Admin Dose 75 MLS/HR; Start 09/27/16 at 18:00 Spironolactone (Aldactone) 50 mg DAILY NGT ; Start 09/28/16 at 09:00 YANETH VIDAL Sep 28, 2016 08:49
--- NOTE | 2016-09-28 09:16 | RADRPT ---
PROCEDURE: XR Chest. CLINICAL INDICATION: Pneumonia. CHF. Dyspnea. TECHNIQUE: Single frontal chest x-ray. COMPARISON: 09/27/2016 FINDINGS: Severe congestion and edema and interstitial infiltration is seen throughout the lungs, slightly wor se when compared to the previous study. Bilateral basilar pleural effusions are identified, stable. The cardiomediastinal silhouette is unchanged. Aortic atherosclerotic vascular calcifications are identified. Feeding tube is seen going down into the stomach. Right-sided PICC line is seen with the tip in the superior vena cava. There is no pneumothorax. The surrounding osseous structures ar e otherwise unremarkable. IMPRESSION: 1. Severe congestion and edema and interstitial infiltration scattered throughout the lungs, worse when compared to the previous study. 2. Small bilateral basilar pleural effusions, grossly stable over time. 3. Stable lines and tubes in good position without pneumothorax. RPTAT: PP .David Herrera MD, Date Time Electronically viewed and signed by .David Herrera MD, on 09/28/2016 09:16 .B/
--- NOTE | 2016-09-28 10:00 | CONS ---
Date/Time of Note Date/Time of Note DATE: 09/28/16 TIME: 09:57 Assessment/Plan Assessment/Plan Additional Assessment/Plan Chest x-ray was reviewed from today which is again showing bilateral alveolar infiltrates which is a combination of pneumonia as well as pulmonary edema. Patient currently on BiPAP 15/8, 50% FiO2. Next Assessment recommendations; next 1. Patient admitted for severe sepsis from bowel perforation status post colostomy. 2. History of hydrocephalus with possible MANAGER RISK shunt infection status post externalization of ventricular shunt. 3. Anemia. 4. Worsening leukocytosis. 5. Bilateral pneumonia. Continue BiPAP for now. Continue current supportive care. Continue current antibiotics. Patient does appear comfortable on current BiPAP settings. If there is any clinical decompensation she likely will need to be reintubated. Prognosis is very guarded. Consultation Date/Type/Reason Admit Date/Time Sep 15, 2016 at 21:35 Initial Consult Date 09/21/16 Type of Consultation: Pulmonary/critical care Referring Provider: AUNDREA ARMENDARIZ 24 HR Interval Summary Free Text/Dictation Patient condition remains tenuous at best. Still requiring continuous BiPAP. Remains awake. Somewhat somnolent. Has remained hemodynamically stable not requiring any pressor support. General exam; elderly woman, on BiPAP, responsive. Currently in no distress. Exam/Review of Systems Vital Signs Vitals Vital Signs Date Time Temp Pulse Resp B/P Pulse Ox O2 Delivery O2 Flow Rate FiO2 09/28/16 09:30 79 21 120/51 98 09/28/16 09:00 BIPAP 09/28/16 08:00 98.3 09/28/16 07:30 50 09/27/16 09:00 6.0 Intake and Output 09/27/16 09/27/16 09/28/16 15:00 23:00 07:00 Intake Total 891.64 ml 1125 ml 1280 ml Output Total 602 ml 810 ml 1460 ml Balance 289.64 ml 315 ml -180 ml Exam HEENT exam; supple neck, patient has an externalized ventricular shunt. On BiPAP. Has multiple carious teeth. No lymphadenopathy. No thyromegaly. Pupils are small bilaterally. Next Chest exam; diminished breath sounds bilaterally. No added sound. S1-S2 audible, no murmurs. Regular rhythm. Abdomen exam; soft, protuberant. Bowel sounds audible. Colostomy in place. Extremity exam; 2+ generalized edema. DIETARY SERVICES DIRECTOR exam; patient is awake and follows very simple commands. Results Result Diagram: 09/28/16 0500 09/28/16 0500 Results 24 hrs Laboratory Tests Test 09/27/16 15:00 09/28/16 05:00 Sodium Level 153 H 150 H Potassium Level 3.1 L 2.8 *L Chloride Level 105 104 Carbon Dioxide Level 31 34 H Anion Gap 20 H 15 Blood Urea Nitrogen 32 H 29 H Creatinine 0.77 0.63 Glucose Level 233 H 283 H Calcium Level 8.0 L 7.1 L White Blood Count 30.7 #H Red Blood Count 2.94 L Hemoglobin 7.6 L Hematocrit 23.8 L Mean Corpuscular Volume 81.0 L Mean Corpuscular Hemoglobin 25.9 L Mean Corpuscular Hemoglobin Concent 31.9 L Red Cell Distribution Width 21.4 H Platelet Count 156 # Mean Platelet Volume 13.4 #H Neutrophils % 92.0 H Lymphocytes % 4.0 L Monocytes % 1.0 Eosinophils % Basophils % Nucleated Red Blood Cells % 0.4 H Neutrophils # 28.2 H Band Neutrophils # 28.2 H Lymphocytes # 1.2 Monocytes # 0.3 Eosinophils # Basophils # Nucleated Red Blood Cells # Anisocytosis 1+ Phosphorus Level 3.1 Magnesium Level 1.8 Medications Medications Current Medications Morphine Sulfate (morphine) 2 mg Q4H PRN IV PAIN Last administered on 01:04; Admin Dose 2 MG; Start 09/15/16 at 23:30 Ondansetron HCl (Zofran Inj) 4 mg Q6H PRN IV NAUSEA AND/OR VOMITING Last administered on 09/26/16 09:23; Admin Dose 4 MG; Start 09/16/16 at 00:30 Acetaminophen (Tylenol Tab) 650 mg Q6H PRN PO PAIN LEVEL 1-3 OR FEVER Last administered on 09/17/16 10:06; Admin Dose 650 MG; Start 09/16/16 at 00:30 Polyethylene Glycol 17 gm 17 gm DAILY PO Last administered on 09/28/16 08:44; Admin Dose 17 GM; Start 09/20/16 at 11:00 Meropenem/Sodium Chloride 50 ml @ 200 mls/hr Q8 IVPB Last administered on 09/28 05:32; Admin Dose 200 MLS/HR; Start 09/20/16 at 22:00 Fluconazole/ Sodium Chloride 50 ml @ 50 mls/hr Q24H IVPB Last administered on 16:50; Admin Dose 50 MLS/HR; Start 09/20/16 at 16:30 Norepinephrine 16 mg/Dextrose 500 ml @ 1.87 mls/hr TITRATE IV Last administered on 09/22/16 04:08; Admin Dose 56.25 MLS/HR; Start 09/21/16 at 09: 00 Propofol (Diprivan) 100 ml @ 1.671 mls/ hr Q12H IV Last administered on 06:23; Admin Dose 6.684 MLS/HR; Start 09/21/16 at 02:30 Acetaminophen/ Hydrocodone Bitart ([place] (5/325)) 1 tab Q4H PRN PO PAIN LEVEL 4 -7; Start 09/21/16 at 15:00 Acetaminophen/ Hydrocodone Bitart ([place] (5/325)) 2 tab Q4H PRN PO PAIN LEVEL 7 -10; Start 09/21/16 at 15:00 Hydromorphone HCl (Dilaudid) 0.5 mg Q2H PRN IV PAIN; Start 09/21/16 at 15:00 Hydromorphone HCl (Dilaudid) 1 mg Q2H PRN IV PAIN Last administered on 07:31; Admin Dose 1 MG; Start 09/21/16 at 15:00 Docusate Sodium (Colace) 100 mg BID PRN PO CONSTIPATION; Start 09/21/16 at 15: 00 Enoxaparin Sodium (Lovenox) 40 mg DAILY SC ; Start 09/22/16 at 09:00; Status Future Hold Docusate Sodium (Colace Liquid Cup) 100 mg BID NGT Last administered on 08:44; Admin Dose 100 MG; Start 09/22/16 at 21:00 Pantoprazole (Protonix Iv) 40 mg DAILY@06 IV Last administered on 09/28/16 05: 31; Admin Dose 40 MG; Start 09/26/16 at 06:00 IV Flush (NS 10 ml) 10 ml PRN PRN IV IV PROTOCOL; Start 09/25/16 at 12:00 Metoprolol Tartrate 25 mg 25 mg BID PO Last administered on 09/28/16 08:44; Admin Dose 25 MG; Start 09/27/16 at 21:00 Vancomycin HCl 750 mg/Dextrose/ Water 150 ml @ 75 mls/hr Q12H IVPB Last administered on 09/28/16 05:38; Admin Dose 75 MLS/HR; Start 09/27/16 at 18:00 Potassium Chloride/Dextrose (D5W + KCl 20 Meq) 1,000 ml @ 75 mls/hr [id number] IV Last administered on 09/27/16 18:19; Admin Dose 75 MLS/HR; Start 09/27/16 at 18:00 Spironolactone (Aldactone) 50 mg DAILY NGT Last administered on 09/28/16 08:44 ; Admin Dose 50 MG; Start 09/28/16 at 09:00 GERARDO JUSTICE Sep 28, 2016 10:00
[2016-09-28] MEDS: D5W + KCL 20 MEQ 1,000 ML IV SCH (10:30)
--- NOTE | 2016-09-28 11:57 | CONS ---
Date/Time of Note Date/Time of Note DATE: 09/28/16 TIME: 11:51 Assessment/Plan Assessment/Plan Chief Complaint/Hosp Course No acute changes patient remains on BiPAP very weak but awake and in no distress Temperature 98.3 pulse 80 respirations 20 blood pressure 120/51 saturation 98 on 50 FiO2 WBC 30.7 H&H 7.6 and 23.8 platelets 156 neutrophils 92 BN 29 creatinine 0.63 Blood cultures repeated yesterday pending urine culture preliminary negative, pleural fluid cultures revealed no organisms Chest x-ray this morning revealed severe congestion and edema and interstitial infiltration scattered throughout the lungs versus when compared to previous study Indwelling's: PICC line placed on September 25 right upper chest MOTOR SCOOTER MECHANIC shunt [place] catheter intra-abdominal drainage catheters Allergies: Penicillins Antibiotics: Vancomycin, fluconazole, meropenem Physical elimination: Well-developed well-nourished elderly woman who is intubated sedated, in no distress. Normocephalic sclera nonicteric. Bugle mucosa dry. Neck is supple, trachea midline. Chest rise symmetrical breath sounds diminished to bases. Heart: S1-S2. Abdomen distended, soft, bowel tones hypoactive. Extremities without cyanosis, with trace 1+ edema bilateral lower extremities. Skin: Pale with anasarca. Assessment: 1. Persistent leukocytosis, etiology unclear 2. Acute respiratory failure secondary to fluid overload and bilateral pneumonia 3. Status post perforated sigmoid colon repair with end colostomy and lysis of adhesions on September 21, 2016, status post abdominal lavage and lysis of adhesions and resection of distal transverse colon 09/24/16 4. Status post externalization of MOTOR SCOOTER MECHANIC shunt on September 21, 2016 5. Acute renal failure 6. Severe anasarca Plan: Hemodynamically stable, with persistent leukocytosis, pending repeat cultures, continue antibiotics, surgical and pulmonary recommendations Discussed with staff Problems: Consultation Date/Type/Reason Admit Date/Time Sep 15, 2016 at 21:35 Type of Consultation: id Referring Provider: AUNDREA ARMENDARIZ Exam/Review of Systems Vital Signs Vitals Vital Signs Date Time Temp Pulse Resp B/P Pulse Ox O2 Delivery O2 Flow Rate FiO2 09/28/16 09:55 80 98 50 09/28/16 09:30 21 120/51 09/28/16 09:00 BIPAP 09/28/16 08:00 98.3 09/27/16 09:00 6.0 Intake and Output 7/21/17 7/21/17 7/22/17 15:00 23:00 07:00 Intake Total 891.64 ml 1125 ml 1280 ml Output Total 602 ml 810 ml 1460 ml Balance 289.64 ml 315 ml -180 ml Results Result Diagram: 09/28/16 0500 09/28/16 0500 Results 24 hrs Laboratory Tests Test 09/27/16 15:00 09/28/16 05:00 Sodium Level 153 H 150 H Potassium Level 3.1 L 2.8 *L Chloride Level 105 104 Carbon Dioxide Level 31 34 H Anion Gap 20 H 15 Blood Urea Nitrogen 32 H 29 H Creatinine 0.77 0.63 Glucose Level 233 H 283 H Calcium Level 8.0 L 7.1 L White Blood Count 30.7 #H Red Blood Count 2.94 L Hemoglobin 7.6 L Hematocrit 23.8 L Mean Corpuscular Volume 81.0 L Mean Corpuscular Hemoglobin 25.9 L Mean Corpuscular Hemoglobin Concent 31.9 L Red Cell Distribution Width 21.4 H Platelet Count 156 # Mean Platelet Volume 13.4 #H Neutrophils % 92.0 H Lymphocytes % 4.0 L Monocytes % 1.0 Eosinophils % Basophils % Nucleated Red Blood Cells % 0.4 H Neutrophils # 28.2 H Band Neutrophils # 28.2 H Lymphocytes # 1.2 Monocytes # 0.3 Eosinophils # Basophils # Nucleated Red Blood Cells # Anisocytosis 1+ Phosphorus Level 3.1 Magnesium Level 1.8 Medications Medications Current Medications Morphine Sulfate (morphine) 2 mg Q4H PRN IV PAIN Last administered on 01:04; Admin Dose 2 MG; Start 09/15/16 at 23:30 Ondansetron HCl (Zofran Inj) 4 mg Q6H PRN IV NAUSEA AND/OR VOMITING Last administered on 09/26/16 09:23; Admin Dose 4 MG; Start 09/16/16 at 00:30 Acetaminophen (Tylenol Tab) 650 mg Q6H PRN PO PAIN LEVEL 1-3 OR FEVER Last administered on 09/17/16 10:06; Admin Dose 650 MG; Start 09/16/16 at 00:30 Polyethylene Glycol 17 gm 17 gm DAILY PO Last administered on 09/28/16 08:44; Admin Dose 17 GM; Start 09/20/16 at 11:00 Meropenem/Sodium Chloride 50 ml @ 200 mls/hr Q8 IVPB Last administered on 09/28 05:32; Admin Dose 200 MLS/HR; Start 09/20/16 at 22:00 Fluconazole/ Sodium Chloride 50 ml @ 50 mls/hr Q24H IVPB Last administered on 16:50; Admin Dose 50 MLS/HR; Start 09/20/16 at 16:30 Norepinephrine 16 mg/Dextrose 500 ml @ 1.87 mls/hr TITRATE IV Last administered on 09/22/16 04:08; Admin Dose 56.25 MLS/HR; Start 09/21/16 at 09: 00 Propofol (Diprivan) 100 ml @ 1.671 mls/ hr Q12H IV Last administered on 06:23; Admin Dose 6.684 MLS/HR; Start 09/21/16 at 02:30 Acetaminophen/ Hydrocodone Bitart ([place] (5/325)) 1 tab Q4H PRN PO PAIN LEVEL 4 -7; Start 09/21/16 at 15:00 Acetaminophen/ Hydrocodone Bitart ([place] (5/325)) 2 tab Q4H PRN PO PAIN LEVEL 7 -10; Start 09/21/16 at 15:00 Hydromorphone HCl (Dilaudid) 0.5 mg Q2H PRN IV PAIN; Start 09/21/16 at 15:00 Hydromorphone HCl (Dilaudid) 1 mg Q2H PRN IV PAIN Last administered on 07:31; Admin Dose 1 MG; Start 09/21/16 at 15:00 Docusate Sodium (Colace) 100 mg BID PRN PO CONSTIPATION; Start 09/21/16 at 15: 00 Enoxaparin Sodium (Lovenox) 40 mg DAILY SC ; Start 09/22/16 at 09:00; Status Future Hold Docusate Sodium (Colace Liquid Cup) 100 mg BID NGT Last administered on 08:44; Admin Dose 100 MG; Start 09/22/16 at 21:00 Pantoprazole (Protonix Iv) 40 mg DAILY@06 IV Last administered on 09/28/16 05: 31; Admin Dose 40 MG; Start 7/20/17 at 06:00 IV Flush (NS 10 ml) 10 ml PRN PRN IV IV PROTOCOL; Start 09/25/16 at 12:00 Metoprolol Tartrate 25 mg 25 mg BID PO Last administered on 09/28/16 08:44; Admin Dose 25 MG; Start 09/27/16 at 21:00 Vancomycin HCl 750 mg/Dextrose/ Water 150 ml @ 75 mls/hr Q12H IVPB Last administered on 09/28/16 05:38; Admin Dose 75 MLS/HR; Start 09/27/16 at 18:00 Potassium Chloride/Dextrose (D5W + KCl 20 Meq) 1,000 ml @ 75 mls/hr [id number] IV Last administered on 09/28/16 10:30; Admin Dose 75 MLS/HR; Start 09/27/16 at 18:00 Spironolactone (Aldactone) 50 mg DAILY NGT Last administered on 09/28/16 08:44 ; Admin Dose 50 MG; Start 09/28/16 at 09:00 CORINA ESTRELLA NP Sep 28, 2016 11:57
--- NOTE | 2016-09-28 12:39 | PN ---
Date/Time of Note Date/Time of Note DATE: 09/28/16 TIME: 12:38 Assessment/Plan VTE Prophylaxis VTE Prophylaxis Intervention: SCD's Assessment/Plan Chief Complaint/Hosp Course 1. Severe sepsis with systemic shock and organ dysfunction 2/2 #2 2. Non resolving diverticulitis with abscess and sigmoid colon perforation * s/p sigmoid colectomy with end colostomy (Reid's procedure) and adhesiolyis on 09/21/16 * Status post completion of hemicolectomy and colostomy placement * Patient also now has wound VAC on anterior abdominal wall 3. Lactic and Metabolic acidosis 2/2 above-resolved 4. Mild troponin elevation likely type 2 from #1: Stable 5. Acute transaminitis 2/2 shock liver: improving 6. History of intracranial hemorrhage in the past status post TEACHING ARTIST shunt placement that has been stable over time * TEACHING ARTIST shunt was externalized during the surgery September 21, 2016 due to abdominal infection, per neurosurgical notes may need to be reconnected once patient stable versus removed 7. Hypernatremia likely secondary to #1: improved 8. Severe coagulopathy also as a result of #1: improving 9. Iron deficiency hypochromic anemia on iron infusion therapy 10. Diffuse anasarca as well as bilateral pleural effusions likely associated hypoalbuminemia 11. Bilateral pneumonia with vascular congestion concerning for BUD S 12. Acute renal insufficiency secondary to #1 PLAN: * Continue ICU care management * Continue ventilator monitoring and management /follow pulmonary recommendations * Resume tube feeds when stable and if okay with surgery * Continue broad-spectrum antibiotics per ID * Status post blood transfusion, serial labs, electrolytes replacement as indicated * Continue serial lactic acid trend * Patient's management remains dynamic depending on her clinical symptoms and lab findings, she continues require close monitoring, follow-ups and frequent reevaluation * Appreciate all consultants * Have discussed CODE STATUS with patient's , will discuss with family and decide Prophylaxis : SCDs / PPI Problems: Subjective 24 Hr Interval Summary Subjective hx not possible: pt non-verbal Exam/Review of Systems Vital Signs Vitals Vital Signs Date Time Temp Pulse Resp B/P Pulse Ox O2 Delivery O2 Flow Rate FiO2 09/28/16 12:15 76 27 126/54 99 09/28/16 12:00 98.1 BIPAP 09/28/16 09:55 50 09/27/16 09:00 6.0 Intake and Output 09/27/16 09/27/16 09/28/16 15:00 23:00 07:00 Intake Total 891.64 ml 1125 ml 1280 ml Output Total 602 ml 810 ml 1460 ml Balance 289.64 ml 315 ml -180 ml Exam Constitutional: non-verbal Respiratory: clear to auscultation Cardiovascular: regular rate and rhythm Gastrointestinal: soft, No distended Musculoskeletal: nl extremities to inspection Results Result Diagram: 09/28/16 0500 09/28/16 0500 Results 24 hrs Laboratory Tests Test 09/27/16 15:00 09/28/16 05:00 Sodium Level 153 H 150 H Potassium Level 3.1 L 2.8 *L Chloride Level 105 104 Carbon Dioxide Level 31 34 H Anion Gap 20 H 15 Blood Urea Nitrogen 32 H 29 H Creatinine 0.77 0.63 Glucose Level 233 H 283 H Calcium Level 8.0 L 7.1 L White Blood Count 30.7 #H Red Blood Count 2.94 L Hemoglobin 7.6 L Hematocrit 23.8 L Mean Corpuscular Volume 81.0 L Mean Corpuscular Hemoglobin 25.9 L Mean Corpuscular Hemoglobin Concent 31.9 L Red Cell Distribution Width 21.4 H Platelet Count 156 # Mean Platelet Volume 13.4 #H Neutrophils % 92.0 H Lymphocytes % 4.0 L Monocytes % 1.0 Eosinophils % Basophils % Nucleated Red Blood Cells % 0.4 H Neutrophils # 28.2 H Band Neutrophils # 28.2 H Lymphocytes # 1.2 Monocytes # 0.3 Eosinophils # Basophils # Nucleated Red Blood Cells # Anisocytosis 1+ Phosphorus Level 3.1 Magnesium Level 1.8 Medications Medications Current Medications Morphine Sulfate (morphine) 2 mg Q4H PRN IV PAIN Last administered on 01:04; Admin Dose 2 MG; Start 09/15/16 at 23:30 Ondansetron HCl (Zofran Inj) 4 mg Q6H PRN IV NAUSEA AND/OR VOMITING Last administered on 09/26/16 09:23; Admin Dose 4 MG; Start 09/16/16 at 00:30 Acetaminophen (Tylenol Tab) 650 mg Q6H PRN PO PAIN LEVEL 1-3 OR FEVER Last administered on 09/17/16 10:06; Admin Dose 650 MG; Start 09/16/16 at 00:30 Polyethylene Glycol 17 gm 17 gm DAILY PO Last administered on 09/28/16 08:44; Admin Dose 17 GM; Start 09/20/16 at 11:00 Meropenem/Sodium Chloride 50 ml @ 200 mls/hr Q8 IVPB Last administered on 09/28 05:32; Admin Dose 200 MLS/HR; Start 09/20/16 at 22:00 Fluconazole/ Sodium Chloride 50 ml @ 50 mls/hr Q24H IVPB Last administered on 16:50; Admin Dose 50 MLS/HR; Start 09/20/16 at 16:30 Norepinephrine 16 mg/Dextrose 500 ml @ 1.87 mls/hr TITRATE IV Last administered on 09/22/16 04:08; Admin Dose 56.25 MLS/HR; Start 09/21/16 at 09: 00 Propofol (Diprivan) 100 ml @ 1.671 mls/ hr Q12H IV Last administered on 06:23; Admin Dose 6.684 MLS/HR; Start 09/21/16 at 02:30 Acetaminophen/ Hydrocodone Bitart ([place] (5/325)) 1 tab Q4H PRN PO PAIN LEVEL 4 -7; Start 09/21/16 at 15:00 Acetaminophen/ Hydrocodone Bitart ([place] (5/325)) 2 tab Q4H PRN PO PAIN LEVEL 7 -10; Start 09/21/16 at 15:00 Hydromorphone HCl (Dilaudid) 0.5 mg Q2H PRN IV PAIN; Start 09/21/16 at 15:00 Hydromorphone HCl (Dilaudid) 1 mg Q2H PRN IV PAIN Last administered on 07:31; Admin Dose 1 MG; Start 09/21/16 at 15:00 Docusate Sodium (Colace) 100 mg BID PRN PO CONSTIPATION; Start 09/21/16 at 15: 00 Enoxaparin Sodium (Lovenox) 40 mg DAILY SC ; Start 09/22/16 at 09:00; Status Future Hold Docusate Sodium (Colace Liquid Cup) 100 mg BID NGT Last administered on 08:44; Admin Dose 100 MG; Start 09/22/16 at 21:00 Pantoprazole (Protonix Iv) 40 mg DAILY@06 IV Last administered on 09/28/16 05: 31; Admin Dose 40 MG; Start 09/26/16 at 06:00 IV Flush (NS 10 ml) 10 ml PRN PRN IV IV PROTOCOL; Start 09/25/16 at 12:00 Metoprolol Tartrate 25 mg 25 mg BID PO Last administered on 09/28/16 08:44; Admin Dose 25 MG; Start 09/27/16 at 21:00 Vancomycin HCl 750 mg/Dextrose/ Water 150 ml @ 75 mls/hr Q12H IVPB Last administered on 09/28/16 05:38; Admin Dose 75 MLS/HR; Start 09/27/16 at 18:00 Potassium Chloride/Dextrose (D5W + KCl 20 Meq) 1,000 ml @ 75 mls/hr [id number] IV Last administered on 09/28/16 10:30; Admin Dose 75 MLS/HR; Start 09/27/16 at 18:00 Spironolactone (Aldactone) 50 mg DAILY NGT Last administered on 09/28/16 08:44 ; Admin Dose 50 MG; Start 09/28/16 at 09:00 DALE RODARTE Sep 28, 2016 12:39
[2016-09-28 16:03] LABS: CREATININE 0.7 mg/dl (0.44-1.00); POTASSIUM 3.8 mmol/L (3.5-5.1)
[2016-09-28] MEDS: FLUCONAZOLE 100 MG/NS (PMX) 50 ML IVPB SCH (16:34)
--- NOTE | 2016-09-28 17:23 | CONS ---
Date/Time of Note Date/Time of Note DATE: 09/28/16 TIME: 17:21 Assessment/Plan Assessment/Plan Chief Complaint/Hosp Course Acute diastolic heart failure: Secondary to volume resuscitation in setting of low albumin and third spacing. Significant anasarca. Improving but still total body overload Paroxysmal afib: converted on amiodarone. Will not continue care home. Remains in sinus. Will discuss anticoagulation when active issues resolve and no procedures to be done Septic shock: from intraabdominal abscess and possible infected [employer] SPECIALIST shunt. S/p sigmoid colectomy. Now off levophed and lactate improved Acute respiratory failure: Due to septic shock, severe metabolic acidosis as well as pulm edema NSTEMI: Trop mildly elevated likely type II in the setting of septic shock. Echo from 09/18 showed normal EF and no significant valvular disease. Repeat trop normalized Diverticulitis complicated by abscess s/p sigmoid colectomy and now colostomy Coagulopathy: ?DIC. Resolved h/o ICH with [employer]UC[employer] SPECIALIST shunt -continue lasix 20mg IV BID for slow diuresis -continue metoprolol 25mg BID -hold amiodarone Problems: Consultation Date/Type/Reason Admit Date/Time Sep 15, 2016 at 21:35 Initial Consult Date 09/21/16 Type of Consultation: Cardiology 24 HR Interval Summary Free Text/Dictation No acute events. Remains on BiPAP. Detailed Summary Additional Comments Unable to obtain review of systems due to patient's condition. Exam/Review of Systems Vital Signs Vitals Vital Signs Date Time Temp Pulse Resp B/P Pulse Ox O2 Delivery O2 Flow Rate FiO2 09/28/16 15:55 86 99 50 09/28/16 15:00 30 127/63 Mechanical Ventilator 09/28/16 12:00 98.1 09/27/16 09:00 6.0 Intake and Output 09/27/16 09/27/16 09/28/16 15:00 23:00 07:00 Intake Total 891.64 ml 1125 ml 1280 ml Output Total 602 ml 810 ml 1460 ml Balance 289.64 ml 315 ml -180 ml Exam Constitutional: alert, other (on BiPAP) Psych: no complaints Head: atraumatic, normocephalic Neck: jvd (8cm) Respiratory: crackles/rales, diminished breath sounds, No clear to auscultation Cardiovascular: edema (2+), regular rate and rhythm, No systolic murmur Gastrointestinal: non-tender, soft, No distended Neurological: nl mental status, nl speech Results Result Diagram: 09/28/16 0500 09/28/16 1536 Results 24 hrs Laboratory Tests Test 09/28/16 05:00 09/28/16 15:36 White Blood Count 30.7 #H Red Blood Count 2.94 L Hemoglobin 7.6 L Hematocrit 23.8 L Mean Corpuscular Volume 81.0 L Mean Corpuscular Hemoglobin 25.9 L Mean Corpuscular Hemoglobin Concent 31.9 L Red Cell Distribution Width 21.4 H Platelet Count 156 # Mean Platelet Volume 13.4 #H Neutrophils % 92.0 H Lymphocytes % 4.0 L Monocytes % 1.0 Eosinophils % Basophils % Nucleated Red Blood Cells % 0.4 H Neutrophils # 28.2 H Band Neutrophils # 28.2 H Lymphocytes # 1.2 Monocytes # 0.3 Eosinophils # Basophils # Nucleated Red Blood Cells # Anisocytosis 1+ Sodium Level 150 H 145 H Potassium Level 2.8 *L 3.8 Chloride Level 104 100 Carbon Dioxide Level 34 H 35 H Anion Gap 15 14 Blood Urea Nitrogen 29 H 24 H Creatinine 0.63 0.70 Glucose Level 283 H 350 H Calcium Level 7.1 L 7.0 L Phosphorus Level 3.1 Magnesium Level 1.8 Medications Medications Current Medications Morphine Sulfate (morphine) 2 mg Q4H PRN IV PAIN Last administered on 01:04; Admin Dose 2 MG; Start 09/15/16 at 23:30 Ondansetron HCl (Zofran Inj) 4 mg Q6H PRN IV NAUSEA AND/OR VOMITING Last administered on 09/26/16 09:23; Admin Dose 4 MG; Start 09/16/16 at 00:30 Acetaminophen (Tylenol Tab) 650 mg Q6H PRN PO PAIN LEVEL 1-3 OR FEVER Last administered on 09/17/16 10:06; Admin Dose 650 MG; Start 09/16/16 at 00:30 Polyethylene Glycol 17 gm 17 gm DAILY PO Last administered on 09/28/16 08:44; Admin Dose 17 GM; Start 09/20/16 at 11:00 Meropenem/Sodium Chloride 50 ml @ 200 mls/hr Q8 IVPB Last administered on 09/28 13:43; Admin Dose 200 MLS/HR; Start 09/20/16 at 22:00 Fluconazole/ Sodium Chloride 50 ml @ 50 mls/hr Q24H IVPB Last administered on 16:34; Admin Dose 50 MLS/HR; Start 09/20/16 at 16:30 Norepinephrine 16 mg/Dextrose 500 ml @ 1.87 mls/hr TITRATE IV Last administered on 09/22/16 04:08; Admin Dose 56.25 MLS/HR; Start 09/21/16 at 09: 00 Propofol (Diprivan) 100 ml @ 1.671 mls/ hr Q12H IV Last administered on 06:23; Admin Dose 6.684 MLS/HR; Start 09/21/16 at 02:30 Acetaminophen/ Hydrocodone Bitart ([place] (5/325)) 1 tab Q4H PRN PO PAIN LEVEL 4 -7; Start 09/21/16 at 15:00 Acetaminophen/ Hydrocodone Bitart ([place] (5/325)) 2 tab Q4H PRN PO PAIN LEVEL 7 -10; Start 09/21/16 at 15:00 Hydromorphone HCl (Dilaudid) 0.5 mg Q2H PRN IV PAIN Last administered on 16:33; Admin Dose 0.5 MG; Start 09/21/16 at 15:00 Hydromorphone HCl (Dilaudid) 1 mg Q2H PRN IV PAIN Last administered on 07:31; Admin Dose 1 MG; Start 09/21/16 at 15:00 Docusate Sodium (Colace) 100 mg BID PRN PO CONSTIPATION; Start 09/21/16 at 15: 00 Enoxaparin Sodium (Lovenox) 40 mg DAILY SC ; Start 09/22/16 at 09:00; Status Future Hold Docusate Sodium (Colace Liquid Cup) 100 mg BID NGT Last administered on 08:44; Admin Dose 100 MG; Start 09/22/16 at 21:00 Pantoprazole (Protonix Iv) 40 mg DAILY@06 IV Last administered on 09/28/16 05: 31; Admin Dose 40 MG; Start 09/26/16 at 06:00 IV Flush (NS 10 ml) 10 ml PRN PRN IV IV PROTOCOL; Start 09/25/16 at 12:00 Metoprolol Tartrate 25 mg 25 mg BID PO Last administered on 09/28/16 08:44; Admin Dose 25 MG; Start 09/27/16 at 21:00 Vancomycin HCl 750 mg/Dextrose/ Water 150 ml @ 75 mls/hr Q12H IVPB Last administered on 09/28/16 05:38; Admin Dose 75 MLS/HR; Start 09/27/16 at 18:00 Potassium Chloride/Dextrose (D5W + KCl 20 Meq) 1,000 ml @ 75 mls/hr [id number] IV Last administered on 09/28/16 10:30; Admin Dose 75 MLS/HR; Start 09/27/16 at 18:00 Spironolactone (Aldactone) 50 mg DAILY NGT Last administered on 09/28/16 08:44 ; Admin Dose 50 MG; Start 09/28/16 at 09:00 Miscellaneous Information (*Rx Drug Level Order Reminder*) VANCOMYCIN TROUGH AT 0500 ONCE ONCE XX ; Start 09/29/16 at 05:00; Stop 09/29/16 at 05:01 AVINASH FERNANDEZ MD Sep 28, 2016 17:23
[2016-09-29] VITALS (79 sets, daily range): BP systolic 59–129; BP diastolic 38–78; PULSE 61–132; RESP 8–43
[2016-09-29] MEDS: PROPOFOL 100 ML IV SCH ×2 (02:13→15:30)
[2016-09-29] MEDS: D5W + KCL 20 MEQ 1,000 ML IV SCH ×2 (02:34→10:54)
[2016-09-29 05:30] LABS: ABNORMAL IP MESSAGE 1; BASOPHIL # 0.1 10^3/ul (0.0-0.1); BASOPHILS % 0.2 % (0.0-2.0); EOSINOPHILS # 0.1 10^3/ul (0.0-0.5); EOSINOPHILS % 0.2 % (0.0-7.0); HEMATOCRIT 24.6 % (37.0-47.0); HEMOGLOBIN 7.6 g/dl (12.0-16.0); LYMPHOCYTES # 0.5 10^3/ul (0.8-2.9); LYMPHOCYTES % 1.9 % (15.0-51.0); MEAN CORPUSCULAR HEMOGLOBIN 25.7 pg (29.0-33.0); MEAN CORPUSCULAR HGB CONC 30.9 g/dl (32.0-37.0); MEAN CORPUSCULAR VOLUME 83.1 fl (82.0-101.0); MEAN PLATELET VOLUME 13.7 fl (7.4-10.4); MONOCYTE # 0.6 10^3/ul (0.3-0.9); MONOCYTES % 2.2 % (0.0-11.0); NEUTROPHIL # 27.1 10^3/ul (1.6-7.5); NUCLEATED RED BLOOD CELLS # 0.1 10^3/ul (0.0-0.0); NUCLEATED RED BLOOD CELLS% 0.2 /100WBC (0.0-0.0); PLATELET COUNT 138 10^3/UL (140-415); RED BLOOD COUNT 2.96 10^6/ul (4.20-5.40); RED CELL DISTRIBUTION WIDTH 22.4 % (11.5-14.5)
[2016-09-29 05:51] LABS: CALCIUM 7.4 mg/dl (8.4-10.2); CREATININE 0.66 mg/dl (0.44-1.00); MAGNESIUM 1.8 mg/dl (1.7-2.5); POTASSIUM 3.2 mmol/L (3.5-5.1)
[2016-09-29] MEDS: PANTOPRAZOLE 40 MG INJ IV SCH (06:04)
[2016-09-29] MEDS: MEROPENEM 500MG/50 ML (PMX) 50 ML IVPB SCH ×3 (06:04→22:53)
[2016-09-29] MEDS: FUROSEMIDE 20 MG INJ IV SCH ×2 (06:05→21:00)
[2016-09-29 06:47] LABS: NEUTROPHILS % 93.5 % (39.0-77.0); POSITIVE DIFF @See below
--- NOTE | 2016-09-29 07:52 | PN ---
Date/Time of Note Date/Time of Note DATE: 09/29/16 TIME: 07:51 Assessment/Plan VTE Prophylaxis VTE Prophylaxis Intervention: other Lines/Catheters IV Catheter Type (from Nrs): PICC Line Central line still needed: Yes Urinary Cath still in place: Yes Reason Cath still needed: other (indicate) Assessment/Plan Chief Complaint/Hosp Course 1. Nonoliguric acute kidney injury. Etiology secondary ATN -Renal function has been improving with supportive care continue current treatment plan renally dose meds avoid nephrotoxins - 2. Hypernatremia Improving slowly Continue free water flushes at current rate, continue D5 water Monitor serial sodium levels 3. Hypokalemia secondary to diuretics Replete potassium chloride Start Aldactone 50 mg daily 3. Anemia Monitor H&H levels 4. Mineral bone disorder Monitor calcium phosphorus levels 5. Lactic acidosis secondary to shock Improved -Continue to monitor 6. Sepsis status post shock -Continue antibiotic regimen, -Cultures have been reviewed 7. 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 -Continue treatment plan -Follow-up with surgery 8. Respiratory failure Status post extubation Patient tolerating nasal cannula 9. Volume overload/anasarca -Patient on diuretic therapy monitor hemodynamics and blood pressure 10. History of intracranial hemorrhage in the past status post ASS[employer] MANAGER shunt placement that has been stable over time -ASSI[employer] MA[employer]GER shunt was externalized during the surgery September 21, 2016 due to abdominal infection, per neurosurgical notes may need to be reconnected once patient stable versus removed Problems: Subjective 24 Hr Interval Summary Free Text/Dictation Patient is critical but stable Good urinary output No other events noted Exam/Review of Systems Vital Signs Vitals Vital Signs Date Time Temp Pulse Resp B/P Pulse Ox O2 Delivery O2 Flow Rate FiO2 09/29/16 06:00 79 39 120/53 100 Mechanical Ventilator 09/29/16 05:09 50 09/29/16 04:00 97.6 09/27/16 09:00 6.0 Intake and Output 09/28/16 09/28/16 09/29/16 15:00 23:00 07:00 Intake Total 855 ml 1380 ml 1385 ml Output Total 728 ml 1332 ml 372 ml Balance 127 ml 48 ml 1013 ml Exam HEENT: Head is normocephalic, NECK: Supple. HEART: regular LUNGS: Show diminished breath sounds at base. ABDOMEN: Soft, nontender to palpation without rebound or guarding. EXTREMITIES: Negative for clubbing, cyanosis. Positive edema anasarca DERMATOLOGIC: No rashes. MUSCULOSKELETAL: No joint effusions, NEUROLOGIC: No change in exam. Results Result Diagram: 09/29/16 0500 09/29/16 0500 Results 24 hrs Laboratory Tests Test 09/28/16 15:36 09/29/16 05:00 Sodium Level 145 H 145 H Potassium Level 3.8 3.2 L Chloride Level 100 98 Carbon Dioxide Level 35 H 38 H Anion Gap 14 12 Blood Urea Nitrogen 24 H 24 H Creatinine 0.70 0.66 Glucose Level 350 H 263 H Calcium Level 7.0 L 7.4 L White Blood Count 29.0 H Red Blood Count 2.96 L Hemoglobin 7.6 L Hematocrit 24.6 L Mean Corpuscular Volume 83.1 Mean Corpuscular Hemoglobin 25.7 L Mean Corpuscular Hemoglobin Concent 30.9 L Red Cell Distribution Width 22.4 H Platelet Count 138 L Mean Platelet Volume 13.7 H Neutrophils % 93.5 H Lymphocytes % 1.9 L Monocytes % 2.2 Eosinophils % 0.2 Basophils % 0.2 Nucleated Red Blood Cells % 0.2 H Neutrophils # 27.1 H Lymphocytes # 0.5 L Monocytes # 0.6 Eosinophils # 0.1 Basophils # 0.1 Nucleated Red Blood Cells # 0.1 H Phosphorus Level 3.0 Magnesium Level 1.8 Vancomycin Level Trough 18.6 Medications Medications Current Medications Morphine Sulfate (morphine) 2 mg Q4H PRN IV PAIN Last administered on 01:04; Admin Dose 2 MG; Start 09/15/16 at 23:30 Ondansetron HCl (Zofran Inj) 4 mg Q6H PRN IV NAUSEA AND/OR VOMITING Last administered on 09/26/16 09:23; Admin Dose 4 MG; Start 09/16/16 at 00:30 Acetaminophen (Tylenol Tab) 650 mg Q6H PRN PO PAIN LEVEL 1-3 OR FEVER Last administered on 09/17/16 10:06; Admin Dose 650 MG; Start 09/16/16 at 00:30 Polyethylene Glycol 17 gm 17 gm DAILY PO Last administered on 09/28/16 08:44; Admin Dose 17 GM; Start 09/20/16 at 11:00 Meropenem/Sodium Chloride 50 ml @ 200 mls/hr Q8 IVPB Last administered on 09/29 06:04; Admin Dose 200 MLS/HR; Start 09/20/16 at 22:00 Fluconazole/ Sodium Chloride 50 ml @ 50 mls/hr Q24H IVPB Last administered on 16:34; Admin Dose 50 MLS/HR; Start 09/20/16 at 16:30 Norepinephrine 16 mg/Dextrose 500 ml @ 1.87 mls/hr TITRATE IV Last administered on 09/22/16 04:08; Admin Dose 56.25 MLS/HR; Start 09/21/16 at 09: 00 Propofol (Diprivan) 100 ml @ 1.671 mls/ hr Q12H IV Last administered on 06:23; Admin Dose 6.684 MLS/HR; Start 09/21/16 at 02:30 Acetaminophen/ Hydrocodone Bitart ([place] (5/325)) 1 tab Q4H PRN PO PAIN LEVEL 4 -7 Last administered on 09/28/16 21:20; Admin Dose 1 TAB; Start 09/21/16 at 15: 00 Acetaminophen/ Hydrocodone Bitart ([place] (5/325)) 2 tab Q4H PRN PO PAIN LEVEL 7 -10; Start 09/21/16 at 15:00 Hydromorphone HCl (Dilaudid) 0.5 mg Q2H PRN IV PAIN Last administered on 16:33; Admin Dose 0.5 MG; Start 09/21/16 at 15:00 Hydromorphone HCl (Dilaudid) 1 mg Q2H PRN IV PAIN Last administered on 07:31; Admin Dose 1 MG; Start 09/21/16 at 15:00 Docusate Sodium (Colace) 100 mg BID PRN PO CONSTIPATION; Start 09/21/16 at 15: 00 Enoxaparin Sodium (Lovenox) 40 mg DAILY SC ; Start 09/22/16 at 09:00; Status Future Hold Docusate Sodium (Colace Liquid Cup) 100 mg BID NGT Last administered on 21:19; Admin Dose 100 MG; Start 09/22/16 at 21:00 Pantoprazole (Protonix Iv) 40 mg DAILY@06 IV Last administered on 09/29/16 06: 04; Admin Dose 40 MG; Start 09/26/16 at 06:00 IV Flush (NS 10 ml) 10 ml PRN PRN IV IV PROTOCOL; Start 09/25/16 at 12:00 Metoprolol Tartrate 25 mg 25 mg BID PO Last administered on 09/28/16 21:19; Admin Dose 25 MG; Start 09/27/16 at 21:00 Vancomycin HCl 750 mg/Dextrose/ Water 150 ml @ 75 mls/hr Q12H IVPB Last administered on 09/28/16 17:22; Admin Dose 75 MLS/HR; Start 09/27/16 at 18:00 Potassium Chloride/Dextrose (D5W + KCl 20 Meq) 1,000 ml @ 75 mls/hr [id number] IV Last administered on 09/29/16 02:34; Admin Dose 75 MLS/HR; Start 09/27/16 at 18:00 Spironolactone (Aldactone) 50 mg DAILY NGT Last administered on 09/28/16 08:44 ; Admin Dose 50 MG; Start 09/28/16 at 09:00 KIRAN CASTILLO DO Sep 29, 2016 07:52
[2016-09-29] MEDS ORDERED: POTASSIUM CHLORIDE 20 MEQ POWDER FOR ORAL SOLN GTB ONE (08:00)
[2016-09-29] MEDS: POLYETHYLENE GLYCOL 17 GM PACKET PO SCH (08:37)
[2016-09-29] MEDS: DOCUSATE SODIUM 10 MG/ML (10ML CUP) NGT SCH ×2 (08:37→22:53)
[2016-09-29] MEDS: VANCOMYCIN 750 MG in DEXTROSE 5% 150 ML IVPB SCH (08:37)
[2016-09-29] MEDS: SPIRONOLACTONE 50 MG TAB NGT SCH (08:38)
[2016-09-29] MEDS: morphine 2 MG INJ IV PRN (08:39)
[2016-09-29] MEDS: METOPROLOL 25 MG TAB PO SCH ×2 (08:39→22:40)
[2016-09-29] MEDS ORDERED: PHENYLephrine 20MG IN 250 ML 250 ML IV SCH (11:00)
[2016-09-29] MEDS ORDERED: DOPamine-D5W 1.6 MG/ML 250 ML IV SCH (11:00)
--- NOTE | 2016-09-29 11:26 | CONS ---
Date/Time of Note Date/Time of Note DATE: 09/29/16 TIME: 11:23 Assessment/Plan Assessment/Plan Additional Assessment/Plan Assessment recommendations; 1. Patient admitted for severe sepsis with bilateral pneumonia, status post recent history of bowel perforation with colostomy. 2. Generalized anasarca. 3. Severe persistent hypoxemia. 4. Patient clinically not improving on current BiPAP settings. Patient reintubated at bedside without difficulty. She was given etomidate 20 mg followed by succinylcholine 60 mg IV push. Readily intubated by 7.5 endotracheal tube without difficulty. Meanwhile continue current treatment. An ABG will be performed as well as a chest x-ray post intubation. Prognosis is guarded at this point. 35 minutes of critical care time was spent evaluating the patient. Consultation Date/Type/Reason Admit Date/Time Sep 15, 2016 at 21:35 Initial Consult Date 09/21/16 Type of Consultation: Pulmonary/critical care 24 HR Interval Summary Free Text/Dictation Patient condition remains tenuous at best. Still requiring BiPAP at 100% FiO2, patient now getting progressively more short of breath and dyspneic. General exam; elderly woman, on full face BiPAP. Appearing in mild respiratory distress. Remains awake though. Exam/Review of Systems Vital Signs Vitals Vital Signs Date Time Temp Pulse Resp B/P Pulse Ox O2 Delivery O2 Flow Rate FiO2 09/29/16 08:15 97.4 61 09/29/16 07:55 100 50 09/29/16 06:00 39 120/53 Mechanical Ventilator 09/27/16 09:00 6.0 Intake and Output 09/28/16 09/28/16 09/29/16 15:00 23:00 07:00 Intake Total 855 ml 1380 ml 1445 ml Output Total 728 ml 1332 ml 372 ml Balance 127 ml 48 ml 1073 ml Exam HEENT exam; supple neck, positive JVD. No lymphadenopathy. Midline trachea. No thyromegaly. Patient has multiple carious teeth. Pupils are midsize and reactive to light. Chest exam; diminished breath sounds throughout. S1-S2 audible, no murmurs. Regular rhythm. Tachycardic. Abdomen exam; soft, colostomy in place. Bowel sounds are sluggish. No organomegaly felt. Extremity exam; 3+ generalized anasarca. PICKER exam; patient is awake and follows simple commands. Results Result Diagram: 09/29/16 0500 09/29/16 0500 Results 24 hrs Laboratory Tests Test 09/28/16 15:36 09/29/16 05:00 Sodium Level 145 H 145 H Potassium Level 3.8 3.2 L Chloride Level 100 98 Carbon Dioxide Level 35 H 38 H Anion Gap 14 12 Blood Urea Nitrogen 24 H 24 H Creatinine 0.70 0.66 Glucose Level 350 H 263 H Calcium Level 7.0 L 7.4 L White Blood Count 29.0 H Red Blood Count 2.96 L Hemoglobin 7.6 L Hematocrit 24.6 L Mean Corpuscular Volume 83.1 Mean Corpuscular Hemoglobin 25.7 L Mean Corpuscular Hemoglobin Concent 30.9 L Red Cell Distribution Width 22.4 H Platelet Count 138 L Mean Platelet Volume 13.7 H Neutrophils % 93.5 H Lymphocytes % 1.9 L Monocytes % 2.2 Eosinophils % 0.2 Basophils % 0.2 Nucleated Red Blood Cells % 0.2 H Neutrophils # 27.1 H Lymphocytes # 0.5 L Monocytes # 0.6 Eosinophils # 0.1 Basophils # 0.1 Nucleated Red Blood Cells # 0.1 H Phosphorus Level 3.0 Magnesium Level 1.8 Vancomycin Level Trough 18.6 Medications Medications Current Medications Morphine Sulfate (morphine) 2 mg Q4H PRN IV PAIN Last administered on 08:39; Admin Dose 2 MG; Start 09/15/16 at 23:30 Ondansetron HCl (Zofran Inj) 4 mg Q6H PRN IV NAUSEA AND/OR VOMITING Last administered on 09/26/16 09:23; Admin Dose 4 MG; Start 09/16/16 at 00:30 Acetaminophen (Tylenol Tab) 650 mg Q6H PRN PO PAIN LEVEL 1-3 OR FEVER Last administered on 09/17/16 10:06; Admin Dose 650 MG; Start 09/16/16 at 00:30 Polyethylene Glycol 17 gm 17 gm DAILY PO Last administered on 09/29/16 08:37; Admin Dose 17 GM; Start 09/20/16 at 11:00 Meropenem/Sodium Chloride 50 ml @ 200 mls/hr Q8 IVPB Last administered on 09/29 06:04; Admin Dose 200 MLS/HR; Start 09/20/16 at 22:00 Fluconazole/ Sodium Chloride 50 ml @ 50 mls/hr Q24H IVPB Last administered on 16:34; Admin Dose 50 MLS/HR; Start 09/20/16 at 16:30 Norepinephrine 16 mg/Dextrose 500 ml @ 1.87 mls/hr TITRATE IV Last administered on 09/22/16 04:08; Admin Dose 56.25 MLS/HR; Start 09/21/16 at 09: 00 Propofol (Diprivan) 100 ml @ 1.671 mls/ hr Q12H IV Last administered on 06:23; Admin Dose 6.684 MLS/HR; Start 09/21/16 at 02:30 Acetaminophen/ Hydrocodone Bitart ([place] (5/325)) 1 tab Q4H PRN PO PAIN LEVEL 4 -7 Last administered on 09/28/16 21:20; Admin Dose 1 TAB; Start 09/21/16 at 15: 00 Acetaminophen/ Hydrocodone Bitart ([place] (5/325)) 2 tab Q4H PRN PO PAIN LEVEL 7 -10; Start 09/21/16 at 15:00 Hydromorphone HCl (Dilaudid) 0.5 mg Q2H PRN IV PAIN Last administered on 16:33; Admin Dose 0.5 MG; Start 09/21/16 at 15:00 Hydromorphone HCl (Dilaudid) 1 mg Q2H PRN IV PAIN Last administered on 07:31; Admin Dose 1 MG; Start 09/21/16 at 15:00 Docusate Sodium (Colace) 100 mg BID PRN PO CONSTIPATION; Start 09/21/16 at 15: 00 Enoxaparin Sodium (Lovenox) 40 mg DAILY SC ; Start 09/22/16 at 09:00; Status Future Hold Docusate Sodium (Colace Liquid Cup) 100 mg BID NGT Last administered on 08:37; Admin Dose 100 MG; Start 09/22/16 at 21:00 Pantoprazole (Protonix Iv) 40 mg DAILY@06 IV Last administered on 09/29/16 06: 04; Admin Dose 40 MG; Start 09/26/16 at 06:00 IV Flush (NS 10 ml) 10 ml PRN PRN IV IV PROTOCOL; Start 09/25/16 at 12:00 Metoprolol Tartrate 25 mg 25 mg BID PO Last administered on 09/29/16 08:39; Admin Dose 25 MG; Start 09/27/16 at 21:00 Vancomycin HCl 750 mg/Dextrose/ Water 150 ml @ 75 mls/hr Q12H IVPB Last administered on 09/29/16 08:37; Admin Dose 75 MLS/HR; Start 09/27/16 at 18:00; Stop 09/29/16 at 14:00 Potassium Chloride/Dextrose (D5W + KCl 20 Meq) 1,000 ml @ 75 mls/hr [id number] IV Last administered on 09/29/16 10:54; Admin Dose 75 MLS/HR; Start 09/27/16 at 18:00 Spironolactone 50 mg 50 mg DAILY NGT Last administered on 09/29/16 08:38; Admin Dose 50 MG; Start 09/28/16 at 09:00 Vancomycin HCl 250 ml @ 125 mls/hr Q24H IVPB ; Start 09/30/16 at 06:00 Dopamine HCl/ Dextrose 250 ml @ 6.053 mls/ hr TITRATE IV ; Start 09/29/16 at 11 :00 Phenylephrine HCl 250 ml @ 75 mls/hr TITRATE IV ; Start 09/29/16 at 11:00; Stop 09/29/16 at 14:00 Phenylephrine HCl/ Dextrose ([place]ph/D5W) 500 ml @ 75 mls/hr TITRATE IV ; Start 09/29/16 at 14:00 GERARDO JUSTICE Sep 29, 2016 11:26
--- NOTE | 2016-09-29 11:35 | RADRPT ---
PROCEDURE: XR Chest. CLINICAL INDICATION: Pneumonia. CHF. Dyspnea. TECHNIQUE: Single frontal chest x-ray. COMPARISON: 09/28/2016 FINDINGS: Interval placement of endotracheal tube with its tip approximately a 2.5 cm above the zana. Feedi ng tube with its sideport at the level of the GE junction. Recommend advancing by 4 cm. Right-sided PICC line its tip terminating in the distal SVC. Severe pulmonary vascular congestion congestion and edema and interstitial infiltration is seen thro ughout the lungs, stable when compared to the previous study. Bilateral basilar pleural effusions a re identified, stable. Cardiac silhouette is enlarged. Aortic atherosclerotic vascular calcifications are identified. Ther e is no pneumothorax. The surrounding osseous structures are otherwise unremarkable. IMPRESSION: 1. Interval placement of ET tube with the tip 2.5 cm above the zana. 2. Nasogastric tube the side port at the level of the GE junction. Recommend advancing by 3-4 cm. 3. Severe congestion and edema and interstitial infiltration scattered throughout the lungs, stable when compared to the previous study. 4. Small bilateral basilar pleural effusions, stable RPTAT: PP .Britton Kendrick MD, Date Time Electronically viewed and signed by .Britton Kendrick MD, on 09/29/2016 11:35 .M/
[2016-09-29 12:22] LABS: AADO2 Arterial 317.1 mmHg (7.0-24.0); Arterial Base Excess 10.4 mmol/L (-3.0-3); Arterial COHb 0.3 % (0.0-3.0); Arterial Fraction of Oxyhgb 97.9 % (93.0-99.0); Arterial HCO3 34.5 mmol/L (22.0-26.0); Arterial MetHb 0.8 % (0.0-1.5); Arterial Total Hemglobin 6.4 g/dl (12.0-18.0); MODE VENT - AC
--- NOTE | 2016-09-29 12:57 | CONS ---
Date/Time of Note Date/Time of Note DATE: 09/29/16 TIME: 12:55 Assessment/Plan Assessment/Plan Chief Complaint/Hosp Course Patient was intubated this morning secondary to respiratory distress, sedated, looks comfortable Temperature 97.4 pulse 60 respirations 20 blood pressure 122/50 saturation 100 on FiO2 of 50 WBC 29 H&H 7.6 and 24.6 platelets 138 neutrophils 93.5 BN 24 creatinine 0.66 Indwelling's: PICC line placed on September 25 right upper chest ICER MACHINE OPERATOR shunt Shore catheter intra-abdominal drainage catheters, ETT, NGT Allergies: Penicillins Antibiotics: Vancomycin, fluconazole, meropenem Physical elimination: Well-developed well-nourished elderly woman who is intubated sedated, in no distress. Normocephalic sclera nonicteric. Bugle mucosa dry. Neck is supple, trachea midline. Chest rise symmetrical breath sounds diminished to bases. Heart: S1-S2. Abdomen distended, soft, bowel tones hypoactive. Extremities without cyanosis, with trace 1+ edema bilateral lower extremities. Skin: Pale with anasarca. Assessment: 1. Sepsis with p ersistent leukocytosis 2. Acute respiratory failure secondary to fluid overload and bilateral pneumonia 3. Status post perforated sigmoid colon repair with end colostomy and lysis of adhesions on September 21, 2016, status post abdominal lavage and lysis of adhesions and resection of distal transverse colon 09/24/16 4. Status post externalization of ICER MACHINE OPERATOR shunt on September 21, 2016 5. Acute renal failure 6. Severe anasarca Plan: Hemodynamically stable, now intubated, repeat cultures negative, continue antibiotics, follow-up surgical and pulmonary recommendations, pending repeat CT Discussed with staff Problems: Consultation Date/Type/Reason Admit Date/Time Sep 15, 2016 at 21:35 Type of Consultation: id Exam/Review of Systems Vital Signs Vitals Vital Signs Date Time Temp Pulse Resp B/P Pulse Ox O2 Delivery O2 Flow Rate FiO2 09/29/16 08:15 97.4 61 09/29/16 07:55 100 50 09/29/16 06:00 39 120/53 Mechanical Ventilator 09/27/16 09:00 6.0 Intake and Output 09/28/16 09/28/16 09/29/16 15:00 23:00 07:00 Intake Total 855 ml 1380 ml 1445 ml Output Total 728 ml 1332 ml 372 ml Balance 127 ml 48 ml 1073 ml Results Result Diagram: 09/29/16 0500 09/29/16 0500 Results 24 hrs Laboratory Tests Test 09/28/16 15:36 09/29/16 05:00 09/29/16 11:30 Sodium Level 145 H 145 H Potassium Level 3.8 3.2 L Chloride Level 100 98 Carbon Dioxide Level 35 H 38 H Anion Gap 14 12 Blood Urea Nitrogen 24 H 24 H Creatinine 0.70 0.66 Glucose Level 350 H 263 H Calcium Level 7.0 L 7.4 L White Blood Count 29.0 H Red Blood Count 2.96 L Hemoglobin 7.6 L Hematocrit 24.6 L Mean Corpuscular Volume 83.1 Mean Corpuscular Hemoglobin 25.7 L Mean Corpuscular Hemoglobin Concent 30.9 L Red Cell Distribution Width 22.4 H Platelet Count 138 L Mean Platelet Volume 13.7 H Neutrophils % 93.5 H Lymphocytes % 1.9 L Monocytes % 2.2 Eosinophils % 0.2 Basophils % 0.2 Nucleated Red Blood Cells % 0.2 H Neutrophils # 27.1 H Lymphocytes # 0.5 L Monocytes # 0.6 Eosinophils # 0.1 Basophils # 0.1 Nucleated Red Blood Cells # 0.1 H Phosphorus Level 3.0 Magnesium Level 1.8 Vancomycin Level Trough 18.6 Blood Gas Specimen Source Blood arterial Arterial Blood Date Drawn 09/29/2016 12:10:56 PM Arterial Blood pH (Temp corrected) 7.500 H Arterial Blood pCO2 (Temp correct) 45.3 H Arterial Blood pO2 (Temp corrected) 350.6 H Arterial Blood HCO3 34.5 H Arterial Blood Base Excess 10.4 H Arterial Blood Oxygen Saturation 99.0 Cain Test N/A Arterial Blood Gas Puncture Site Right Brachial Arterial Blood Carboxyhemoglobin 0.3 Arterial Blood Methemoglobin 0.8 Blood Gas A-a O2 Differential 317.1 H Oxyhemoglobin Percent 97.9 Total Hemoglobin 6.4 L Blood Gas Temperature 37.0 Blood Gas Respiration Rate 16.0 Blood Gas Actual Respiration Rate 16 Blood Gas Modality VENT - AC FiO2 100.0 Blood Gas Tidal Volume 550.0 Blood Gas Low PEEP Setting 5.0 Blood Gas Critical Value Read Back KHRIS MEHTA Blood Gas Notified Whom [place] Blood Gas Notified Time 09/29/2016 12:22:27 PM Medications Medications Current Medications Morphine Sulfate (morphine) 2 mg Q4H PRN IV PAIN Last administered on 08:39; Admin Dose 2 MG; Start 09/15/16 at 23:30 Ondansetron HCl (Zofran Inj) 4 mg Q6H PRN IV NAUSEA AND/OR VOMITING Last administered on 09/26/16 09:23; Admin Dose 4 MG; Start 09/16/16 at 00:30 Acetaminophen (Tylenol Tab) 650 mg Q6H PRN PO PAIN LEVEL 1-3 OR FEVER Last administered on 09/17/16 10:06; Admin Dose 650 MG; Start 09/16/16 at 00:30 Polyethylene Glycol 17 gm 17 gm DAILY PO Last administered on 09/29/16 08:37; Admin Dose 17 GM; Start 09/20/16 at 11:00 Meropenem/Sodium Chloride 50 ml @ 200 mls/hr Q8 IVPB Last administered on 09/29 06:04; Admin Dose 200 MLS/HR; Start 09/20/16 at 22:00 Fluconazole/ Sodium Chloride 50 ml @ 50 mls/hr Q24H IVPB Last administered on 16:34; Admin Dose 50 MLS/HR; Start 09/20/16 at 16:30 Norepinephrine 16 mg/Dextrose 500 ml @ 1.87 mls/hr TITRATE IV Last administered on 09/22/16 04:08; Admin Dose 56.25 MLS/HR; Start 09/21/16 at 09: 00 Propofol (Diprivan) 100 ml @ 1.671 mls/ hr Q12H IV Last administered on 06:23; Admin Dose 6.684 MLS/HR; Start 09/21/16 at 02:30 Acetaminophen/ Hydrocodone Bitart ([place] (5/325)) 1 tab Q4H PRN PO PAIN LEVEL 4 -7 Last administered on 09/28/16 21:20; Admin Dose 1 TAB; Start 09/21/16 at 15: 00 Acetaminophen/ Hydrocodone Bitart ([place] (5/325)) 2 tab Q4H PRN PO PAIN LEVEL 7 -10; Start 09/21/16 at 15:00 Hydromorphone HCl (Dilaudid) 0.5 mg Q2H PRN IV PAIN Last administered on 16:33; Admin Dose 0.5 MG; Start 09/21/16 at 15:00 Hydromorphone HCl (Dilaudid) 1 mg Q2H PRN IV PAIN Last administered on 07:31; Admin Dose 1 MG; Start 09/21/16 at 15:00 Docusate Sodium (Colace) 100 mg BID PRN PO CONSTIPATION; Start 09/21/16 at 15: 00 Enoxaparin Sodium (Lovenox) 40 mg DAILY SC ; Start 09/22/16 at 09:00; Status Future Hold Docusate Sodium (Colace Liquid Cup) 100 mg BID NGT Last administered on 08:37; Admin Dose 100 MG; Start 09/22/16 at 21:00 Pantoprazole (Protonix Iv) 40 mg DAILY@06 IV Last administered on 09/29/16 06: 04; Admin Dose 40 MG; Start 09/26/16 at 06:00 IV Flush (NS 10 ml) 10 ml PRN PRN IV IV PROTOCOL; Start 09/25/16 at 12:00 Metoprolol Tartrate 25 mg 25 mg BID PO Last administered on 09/29/16 08:39; Admin Dose 25 MG; Start 09/27/16 at 21:00 Vancomycin HCl 750 mg/Dextrose/ Water 150 ml @ 75 mls/hr Q12H IVPB Last administered on 09/29/16 08:37; Admin Dose 75 MLS/HR; Start 09/27/16 at 18:00; Stop 09/29/16 at 14:00 Potassium Chloride/Dextrose (D5W + KCl 20 Meq) 1,000 ml @ 75 mls/hr [id number] IV Last administered on 09/29/16 10:54; Admin Dose 75 MLS/HR; Start 09/27/16 at 18:00 Spironolactone 50 mg 50 mg DAILY NGT Last administered on 09/29/16 08:38; Admin Dose 50 MG; Start 09/28/16 at 09:00 Vancomycin HCl 250 ml @ 125 mls/hr Q24H IVPB ; Start 09/30/16 at 06:00 Dopamine HCl/ Dextrose 250 ml @ 6.053 mls/ hr TITRATE IV ; Start 09/29/16 at 11 :00 Phenylephrine HCl 250 ml @ 75 mls/hr TITRATE IV ; Start 09/29/16 at 11:00; Stop 09/29/16 at 14:00 Phenylephrine HCl/ Dextrose (Marcell-Syneph/D5W) 500 ml @ 75 mls/hr TITRATE IV ; Start 09/29/16 at 14:00 CORINA ESTRELLA NP Sep 29, 2016 12:57
--- NOTE | 2016-09-29 13:26 | PN ---
Date/Time of Note Date/Time of Note DATE: 09/29/16 TIME: 13:09 Assessment/Plan Lines/Catheters IV Catheter Type (from Nrs): PICC Line Shore in Place (from Nrs): Yes Assessment/Plan Assessment/Plan [facility] Progress Note Date of Service: 09/29/2016 Place of service: [facility] ICU Today's Assessment & Plan: Overall decompensated with requirement of intubation and hypotension requiring start of pressors. Abdomen continues to remain soft and without obvious evidence of further leak. Drainage from pelvic drain is serous. I do not suspect ongoing issues in the abdomen, but have ordered a noncontrast CT of the chest, abdomen, and pelvis to further evaluate. There was also a discussion about DNR status (without my involvement) and the patient is currently DNR. I do not agree with CODE STATUS changed to full DNR and I clarified this with patient's ex- over the phone. I believe that there is still a chance that the patient could turn around and that we should continue aggressive medical support. CODE STATUS is limited DNR for now (chemical code only) and the patient is appropriately remaining intubated. I have asked the team to please include me in any discussion about CODE STATUS until we have clarified the clinical situation a bit more. Further decisions to be made after above- mentioned CT scan is done. I answered all the patient's ex-'s questions to the best my ability and he appeared to agree with the plans. With above assessment, I recommended the following for today: 1. Continue aggressive medical management 2. Continue wound VAC; dressing change 3 times a week 3. Cont intubated state 4. Stat CT scan of chest, abdomen, and pelvis without contrast 5. Labs in am 6. Please maintain multidisciplinary discussion regarding fluid intake, CODE STATUS, and other major medical decisions since this is a fragile surgical patient with recent sepsis and shock 7. Targeted antimicrobial therapy to culture results Thank you again for your great care of this very pleasant patient and wonderful family. If there are any questions, please feel free to call me at [phone]. Nature of presenting problem: High severity Please note that, given the extensive number of diagnoses or management options , the extensive amount and/or complexity of data needed to be reviewed, and I risk of complications and/or morbidity or mortality, this qualifies as high complexity type of decision-making. Disclaimer: Inadvertent spelling and grammatical errors are likely due to EHR/ dictation software use and do not reflect on the quality of delivered patient care. Also, please note that the electronic time recorded on this node does not necessarily reflect the actual time of the visit. Updated Clinical Summary: A very pleasant 70-year-old lady without significant known past medical history other than a HEEL SHAVER shunt placement many years ago which she did not remember or report, presenting with what appears to be a sigmoid colon abscess or pericolonic abscess, which seemed to be a complication of diverticulitis. S/p IR drainage 09/09/16 with removal of 20 cc pus and placement of a 10 Fr. pigtail catheter at [facility]. D/c home 09/12/16. Re-presented to [place] ED 09/15/16 after being diverted from [facility] (due to internal disaster diversion) where CT was done showing adequate placement of the percutaneous drain near the sigmoid colon and decompressed sigmoid colon abscess, no obvious free air or significant spillage of stool in the abdominal cavity, and incidental finding of tail of the HEEL SHAVER shunt in the pelvis (new from right upper quadrant position of the same drain on the CT scan at [facility]). Transfer to [facility] 09/15/2016 for further cares. S/p upsizing of drain to 12 Fr pigtail on 09/17/16 (communication with colon demonstrated; no obvious free communication to rest of peritoneal space). Patient decompensated in the early hours of the morning on 09/21/2016 and had to be transferred to the intensive care unit with need for endotracheal tube intubation, central line placement, and resuscitation for treatment of shock with lactic acidosis and evidence of peritonitis and free air on the new chest, abdomen, and pelvis CT scan. S/p a rather challenging sigmoid colectomy with performance of end colostomy (Reid's procedure), takedown of splenic flexure of the colon, lysis of adhesions (60 minutes), and abdominal lavage at [facility] on 09/21/16; diagnosis of colon ischemia (distal transverse colon and descending colon) during reentry through recent laparotomy incision with exploration of abdominal cavity, takedown of colostomy, completion left hemicolectomy with resection of distal transverse colon, lysis of adhesions, abdominal lavage, performance of an end colostomy [facility] 09/24/16. Extubated post op evening of 09/25/16. Decompensation with intubation and restart of pressors . Comorbidities: 1. Perforated sigmoid colon (see below) 2. Status post ventriculoperitoneal shunt placement. 3. Status post prior hysterectomy and bilateral salpingo-oophorectomy through Pfannenstiel incision 4. S/p IR drainage 09/09/16 with removal of 20 cc pus and placement of a 10 Fr. pigtail catheter at [facility]. 5. Readmission to [facility] 09/15/16 with upsizing of drain to 12 Fr pigtail on (communication with colon demonstrated; no obvious free communication to rest of peritoneal space). Septic shock with multiorgan failure 09/21/2016 requiring ICU admission with intubation and pressors. 6. S/p a rather challenging sigmoid colectomy with performance of end colostomy (Reid's procedure), takedown of splenic flexure of the colon, lysis of adhesions (60 minutes), and abdominal lavage at [facility] on 09/21/16 7. Colon ischemia (distal transverse colon and descending colon) 8. S/p reentry through recent laparotomy incision with exploration of abdominal cavity, takedown of colostomy, completion left hemicolectomy with resection of distal transverse colon, lysis of adhesions, abdominal lavage, performance of an end colostomy [facility] 09/24/16 Subjective: Events as above; no obvious major abd pain and appears to be under control with medications; no observed or reported n/v/d; no observed or reported sob or cp; + bowel activity; - activity; back on a ventilator. Patient does open eyes but minimally communicative and therefore difficult to assess her symptoms subjectively. Objective: Vitals: See below I's & O's: See below Exam: GENERAL: On exam, the patient was lying in bed and appeared to be comfortable and in no acute distress. Intubated and on the ventilator. ABDOMEN: Soft, nontender and nondistended. Incision dressings are clean, dry and intact without any obvious evidence of underlying erythema, edema, discharge , or hernia. Surgical drain ss without any evidence of enteric contents. There are no peritoneal signs or guarding. Ostomy appears to be viable and productive with stool and air in the bag. SKIN: Skin appears to be pink and feels warm to touch. NEUROLOGIC: Patient is easily arousable to voice and follows very simple commands. Labs: See below Exam/Review of Systems Vital Signs Vitals Vital Signs Date Time Temp Pulse Resp B/P Pulse Ox O2 Delivery O2 Flow Rate FiO2 09/29/16 08:15 97.4 61 09/29/16 07:55 100 50 09/29/16 06:00 39 120/53 Mechanical Ventilator 09/27/16 09:00 6.0 Intake and Output 09/28/16 09/28/16 09/29/16 15:00 23:00 07:00 Intake Total 855 ml 1380 ml 1445 ml Output Total 728 ml 1332 ml 372 ml Balance 127 ml 48 ml 1073 ml Results Result Diagram: 09/29/16 0500 09/29/16 0500 ALEXSANDER DUARTE M.D. Sep 29, 2016 13:19
[2016-09-29] MEDS ORDERED: ATROPINE 1 MG/10 ML SYRINGE ONE ×2 (13:53→18:26)
[2016-09-29] MEDS ORDERED: PHENYLephrine 40 MG in DEXTROSE 5% 496 ML IV SCH (14:00)
[2016-09-29] MEDS ORDERED: ATROPINE 1 MG/10 ML SYRINGE IV ONE (16:00)
[2016-09-29] MEDS: HYDROmorphONE 1 MG/ML SYG IV PRN ×2 (16:41→17:44)
[2016-09-29] MEDS ORDERED: SOD CHLORIDE 0.9% 1,000 ML IV ONE (17:00)
--- NOTE | 2016-09-29 17:33 | PN ---
Date/Time of Note Date/Time of Note DATE: 09/29/16 TIME: 17:32 Assessment/Plan VTE Prophylaxis VTE Prophylaxis Intervention: SCD's Assessment/Plan Chief Complaint/Hosp Course 1. Severe sepsis with systemic shock and organ dysfunction 2/2 #2 2. Non resolving diverticulitis with abscess and sigmoid colon perforation * s/p sigmoid colectomy with end colostomy (Reid's procedure) and adhesiolyis on 09/21/16 * Status post completion of hemicolectomy and colostomy placement * Patient also now has wound VAC on anterior abdominal wall 3. Respiratory failure-patient reintubated 4. Mild troponin elevation likely type 2 from #1: Stable 5. Acute transaminitis 2/2 shock liver: improving 6. History of intracranial hemorrhage in the past status post GAS PLANT TECHNICIAN shunt placement that has been stable over time * GAS PLANT TECHNICIAN shunt was externalized during the surgery September 21, 2016 due to abdominal infection, per neurosurgical notes may need to be reconnected once patient stable versus removed 7. Hypernatremia likely secondary to #1: improved 8. Severe coagulopathy also as a result of #1: improving 9. Iron deficiency hypochromic anemia on iron infusion therapy 10. Diffuse anasarca as well as bilateral pleural effusions likely associated hypoalbuminemia 11. Bilateral pneumonia with vascular congestion concerning for BUD S 12. Acute renal insufficiency secondary to #1 PLAN: * Continue ICU care management * Continue ventilator monitoring and management /follow pulmonary recommendations * Resume tube feeds when stable and if okay with surgery * Continue broad-spectrum antibiotics per ID * Status post blood transfusion, serial labs, electrolytes replacement as indicated * Continue serial lactic acid trend * Patient's management remains dynamic depending on her clinical symptoms and lab findings, she continues require close monitoring, follow-ups and frequent reevaluation * Appreciate all consultants * CODE STATUS is now chemical code Prophylaxis : SCDs / PPI Problems: Subjective 24 Hr Interval Summary Subjective hx not possible: pt non-verbal Exam/Review of Systems Vital Signs Vitals Vital Signs Date Time Temp Pulse Resp B/P Pulse Ox O2 Delivery O2 Flow Rate FiO2 09/29/16 17:19 88 16 100 40 09/29/16 17:00 103/59 09/29/16 12:00 97.7 09/29/16 06:00 Mechanical Ventilator 09/27/16 09:00 6.0 Intake and Output 09/28/16 09/28/1609/29/17 15:00 23:00 07:00 Intake Total 855 ml 1380 ml 1445 ml Output Total 728 ml 1332 ml 372 ml Balance 127 ml 48 ml 1073 ml Exam Constitutional: non-verbal ENMT: intubated Respiratory: clear to auscultation Cardiovascular: regular rate and rhythm Gastrointestinal: soft, No distended Musculoskeletal: nl extremities to inspection Results Result Diagram: 09/29/16 0500 09/29/16 0500 Results 24 hrs Laboratory Tests Test 09/29/16 05:00 09/29/16 11:30 White Blood Count 29.0 H Red Blood Count 2.96 L Hemoglobin 7.6 L Hematocrit 24.6 L Mean Corpuscular Volume 83.1 Mean Corpuscular Hemoglobin 25.7 L Mean Corpuscular Hemoglobin Concent 30.9 L Red Cell Distribution Width 22.4 H Platelet Count 138 L Mean Platelet Volume 13.7 H Neutrophils % 93.5 H Lymphocytes % 1.9 L Monocytes % 2.2 Eosinophils % 0.2 Basophils % 0.2 Nucleated Red Blood Cells % 0.2 H Neutrophils # 27.1 H Lymphocytes # 0.5 L Monocytes # 0.6 Eosinophils # 0.1 Basophils # 0.1 Nucleated Red Blood Cells # 0.1 H Sodium Level 145 H Potassium Level 3.2 L Chloride Level 98 Carbon Dioxide Level 38 H Anion Gap 12 Blood Urea Nitrogen 24 H Creatinine 0.66 Glucose Level 263 H Calcium Level 7.4 L Phosphorus Level 3.0 Magnesium Level 1.8 Vancomycin Level Trough 18.6 Blood Gas Specimen Source Blood arterial Arterial Blood Date Drawn 09/29/2016 12:10:56 PM Arterial Blood pH (Temp corrected) 7.500 H Arterial Blood pCO2 (Temp correct) 45.3 H Arterial Blood pO2 (Temp corrected) 350.6 H Arterial Blood HCO3 34.5 H Arterial Blood Base Excess 10.4 H Arterial Blood Oxygen Saturation 99.0 Cain Test N/A Arterial Blood Gas Puncture Site Right Brachial Arterial Blood Carboxyhemoglobin 0.3 Arterial Blood Methemoglobin 0.8 Blood Gas A-a O2 Differential 317.1 H Oxyhemoglobin Percent 97.9 Total Hemoglobin 6.4 L Blood Gas Temperature 37.0 Blood Gas Respiration Rate 16.0 Blood Gas Actual Respiration Rate 16 Blood Gas Modality VENT - AC FiO2 100.0 Blood Gas Tidal Volume 550.0 Blood Gas Low PEEP Setting 5.0 Blood Gas Critical Value Read Back KHRIS MEHTA Blood Gas Notified Whom [place] Blood Gas Notified Time 09/29/2016 12:22:27 PM Medications Medications Current Medications Morphine Sulfate (morphine) 2 mg Q4H PRN IV PAIN Last administered on 08:39; Admin Dose 2 MG; Start 09/15/16 at 23:30 Ondansetron HCl (Zofran Inj) 4 mg Q6H PRN IV NAUSEA AND/OR VOMITING Last administered on 09/26/16 09:23; Admin Dose 4 MG; Start 09/16/16 at 00:30 Acetaminophen (Tylenol Tab) 650 mg Q6H PRN PO PAIN LEVEL 1-3 OR FEVER Last administered on 09/17/16 10:06; Admin Dose 650 MG; Start 09/16/16 at 00:30 Polyethylene Glycol 17 gm 17 gm DAILY PO Last administered on 09/29/16 08:37; Admin Dose 17 GM; Start 09/20/16 at 11:00 Meropenem/Sodium Chloride 50 ml @ 200 mls/hr Q8 IVPB Last administered on 09/29 15:17; Admin Dose 200 MLS/HR; Start 09/20/16 at 22:00 Fluconazole/ Sodium Chloride 50 ml @ 50 mls/hr Q24H IVPB Last administered on 16:34; Admin Dose 50 MLS/HR; Start 09/20/16 at 16:30 Norepinephrine 16 mg/Dextrose 500 ml @ 1.87 mls/hr TITRATE IV Last administered on 09/29/16 13:22; Admin Dose 1.87 MLS/HR; Start 09/21/16 at 09:00 Propofol (Diprivan) 100 ml @ 1.671 mls/ hr Q12H IV Last administered on 15:30; Admin Dose 1.671 MLS/HR; Start 09/21/16 at 02:30 Acetaminophen/ Hydrocodone Bitart ([place] (5/325)) 1 tab Q4H PRN PO PAIN LEVEL 4 -7 Last administered on 09/28/16 21:20; Admin Dose 1 TAB; Start 09/21/16 at 15: 00 Acetaminophen/ Hydrocodone Bitart ([place] (5/325)) 2 tab Q4H PRN PO PAIN LEVEL 7 -10; Start 09/21/16 at 15:00 Hydromorphone HCl (Dilaudid) 0.5 mg Q2H PRN IV PAIN Last administered on 16:41; Admin Dose 0.5 MG; Start 09/21/16 at 15:00 Hydromorphone HCl (Dilaudid) 1 mg Q2H PRN IV PAIN Last administered on 07:31; Admin Dose 1 MG; Start 09/21/16 at 15:00 Docusate Sodium (Colace) 100 mg BID PRN PO CONSTIPATION; Start 09/21/16 at 15: 00 Enoxaparin Sodium (Lovenox) 40 mg DAILY SC ; Start 09/22/16 at 09:00; Status Future Hold Docusate Sodium (Colace Liquid Cup) 100 mg BID NGT Last administered on 08:37; Admin Dose 100 MG; Start 09/22/16 at 21:00 Pantoprazole (Protonix Iv) 40 mg DAILY@06 IV Last administered on 09/29/16 06: 04; Admin Dose 40 MG; Start 09/26/16 at 06:00 IV Flush (NS 10 ml) 10 ml PRN PRN IV IV PROTOCOL; Start 09/25/16 at 12:00 Metoprolol Tartrate 25 mg 25 mg BID PO Last administered on 09/29/16 08:39; Admin Dose 25 MG; Start 09/27/16 at 21:00 Potassium Chloride/Dextrose (D5W + KCl 20 Meq) 1,000 ml @ 75 mls/hr [id number] IV Last administered on 09/29/16 10:54; Admin Dose 75 MLS/HR; Start 09/27/16 at 18:00 Spironolactone 50 mg 50 mg DAILY NGT Last administered on 09/29/16 08:38; Admin Dose 50 MG; Start 09/28/16 at 09:00 Vancomycin HCl 250 ml @ 125 mls/hr Q24H IVPB ; Start 09/30/16 at 06:00 Dopamine HCl/ Dextrose 250 ml @ 6.053 mls/ hr TITRATE IV ; Start 09/29/16 at 11 :00 Phenylephrine HCl 40 mg/Dextrose 500 ml @ 75 mls/hr TITRATE IV ; Start at 14:00 Sodium Chloride (NS) 1,000 ml @ 1,000 mls/hr Q1H ONCE IV Last administered on 09/29/16t 17:04; Admin Dose 1,000 MLS/HR; Start 09/29/16 at 17:00; Stop at 17:59 DALE RODARTE Sep 29, 2016 17:33
[2016-09-29 17:46] LABS: ABNORMAL IP MESSAGE 1; HEMATOCRIT 21.8 % (37.0-47.0); MEAN CORPUSCULAR HEMOGLOBIN 26.6 pg (29.0-33.0); MEAN CORPUSCULAR HGB CONC 31.7 g/dl (32.0-37.0); MEAN CORPUSCULAR VOLUME 84.2 fl (82.0-101.0); MEAN PLATELET VOLUME 13.4 fl (7.4-10.4); NUCLEATED RED BLOOD CELLS% 0.2 /100WBC (0.0-0.0); PLATELET COUNT 102 10^3/UL (140-415); RED BLOOD COUNT 2.59 10^6/ul (4.20-5.40); RED CELL DISTRIBUTION WIDTH 21.3 % (11.5-14.5); WHITE BLOOD COUNT 24.9 10^3/ul (4.8-10.8)
[2016-09-29] MEDS: FLUCONAZOLE 100 MG/NS (PMX) 50 ML IVPB SCH (17:47)
[2016-09-29 17:52] LABS: HEMOGLOBIN 6.9 g/dl (12.0-16.0); POSITIVE DIFF @See below
[2016-09-29 17:52] LABS: AADO2 Arterial 142.9 mmHg (7.0-24.0); Arterial Base Excess 7.6 mmol/L (-3.0-3); Arterial COHb 0.3 % (0.0-3.0); Arterial Fraction of Oxyhgb 96.1 % (93.0-99.0); Arterial HCO3 30.9 mmol/L (22.0-26.0); Arterial MetHb 0.7 % (0.0-1.5); Arterial Total Hemglobin 8.4 g/dl (12.0-18.0); MODE VENT - AC
[2016-09-29] MEDS ORDERED: SOD CHLORIDE 0.9% 250 ML IV* ONE (17:57)
[2016-09-29 18:03] LABS: INR 1.38; PT RATIO 1.3
[2016-09-29 18:07] LABS: ALBUMIN 1.9 g/dl (3.3-4.9); ALBUMIN/GLOBULIN RATIO 0.76; BILIRUBIN,DIRECT 0.1 mg/dl (0.00-0.20); BILIRUBIN,INDIRECT 0.4 mg/dl (0-1.1); BILIRUBIN,TOTAL 0.5 mg/dl (0.2-1.3); CALCIUM 7.1 mg/dl (8.4-10.2); CREATININE 0.61 mg/dl (0.44-1.00); MAGNESIUM 1.8 mg/dl (1.7-2.5); PHOSPHORUS 2.4 mg/dl (2.5-4.9); POTASSIUM 3.4 mmol/L (3.5-5.1); TOTAL PROTEIN 4.4 g/dl (6.1-8.1)
[2016-09-29 18:09] LABS: EOSINOPHILS # 0.5 10^3/ul (0.0-0.5); LYMPHOCYTES # 1.5 10^3/ul (0.8-2.9); NEUTROPHIL # 21.7 10^3/ul (1.6-7.5)
[2016-09-29] MEDS ORDERED: MAGNESIUM SULFATE 2 GM/50 ML 50 ML IVPB ONE (19:00)
[2016-09-29] MEDS ORDERED: POTASSIUM CHLORIDE 20 MEQ in SOD CHLORIDE 0.9% 100 ML IVPB ONE (20:00)
[2016-09-30] VITALS (94 sets, daily range): BP systolic 72–151; BP diastolic 40–94; PULSE 51–135; RESP 12–35
[2016-09-30] MEDS: ACETAMINOPHEN 325 MG TAB PO PRN (01:22)
[2016-09-30] MEDS: D5W + KCL 20 MEQ 1,000 ML IV SCH ×3 (04:40→16:21)
[2016-09-30 05:33] LABS: ABNORMAL IP MESSAGE 1; HEMATOCRIT 29.6 % (37.0-47.0); HEMOGLOBIN 9.8 g/dl (12.0-16.0); MEAN CORPUSCULAR HEMOGLOBIN 26.9 pg (29.0-33.0); MEAN CORPUSCULAR HGB CONC 33.1 g/dl (32.0-37.0); MEAN CORPUSCULAR VOLUME 81.3 fl (82.0-101.0); NUCLEATED RED BLOOD CELLS% 0.2 /100WBC (0.0-0.0); PLATELET COUNT 126 10^3/UL (140-415); RED BLOOD COUNT 3.64 10^6/ul (4.20-5.40); RED CELL DISTRIBUTION WIDTH 20.6 % (11.5-14.5)
[2016-09-30 05:58] LABS: INR 1.32; PROTIME 16.5 Sec (12.2-14.2); PT RATIO 1.3
[2016-09-30 05:59] LABS: PARTIAL THROMBOPLASTIN TIME 29.1 Sec (25.0-35.0)
[2016-09-30] MEDS: PROPOFOL 100 ML IV SCH ×3 (06:00→20:00)
[2016-09-30] MEDS: FUROSEMIDE 20 MG INJ IV SCH ×3 (06:00→22:00)
[2016-09-30 06:04] LABS: MAGNESIUM 2.2 mg/dl (1.7-2.5); PHOSPHORUS 2.6 mg/dl (2.5-4.9)
[2016-09-30 06:12] LABS: ALBUMIN 2.3 g/dl (3.3-4.9); ALBUMIN/GLOBULIN RATIO 0.76; BILIRUBIN,DIRECT 1.1 mg/dl (0.00-0.20); BILIRUBIN,INDIRECT 0.6 mg/dl (0-1.1); BILIRUBIN,TOTAL 1.7 mg/dl (0.2-1.3); CALCIUM 7.3 mg/dl (8.4-10.2); CREATININE 0.74 mg/dl (0.44-1.00); POTASSIUM 3.6 mmol/L (3.5-5.1); TOTAL PROTEIN 5.3 g/dl (6.1-8.1)
[2016-09-30 06:16] LABS: POSITIVE DIFF @See below
--- NOTE | 2016-09-30 06:54 | RADRPT ---
PROCEDURE: CT of the abdomen and pelvis without contrast CLINICAL INDICATION: Sepsis. TECHNIQUE: Spiral CT images through the abdomen and pelvis without the use of contrast. The admin istered radiation dose is CTDI 20.4 and DLP 1234.37. One or more of the following dose reduction te chniques were used: automated exposure control, adjustment of the mA and/or kV according to patient size, or use of iterative reconstruction technique. COMPARISON: 09/21/2016 FINDINGS: Lack of oral and intravenous contrast somewhat limits evaluation. . There has been increase in bilateral pleural effusions with compressive atelectasis as well as patchy nodular lung base infiltr ates with 1 nodular density with central lucency at the right lung base. Details of the chest will be described in separate report of chest CT performed the same day. Tiny pericardial effusion. Diffuse anasarca is seen, increased compared with prior. Aortic and coronary artery calcification.. Pelvic free fluid appears somewhat decreased. Pigtail catheter in the left pelvis is again seen. Free air has resolved. Subcapsular fluid about the liver is seen. Small probable liver cyst. Peris plenic fluid is decreased. The gallbladder is distended. No gross focal lesion of the spleen. Diff use bilateral adrenal hypertrophy is again seen. Small probable hyperdense cyst or dense material i n a calyceal diverticulum of the left kidney is again seen as well as probable left renal cyst. The right kidney is globular in configuration. No gross abnormality of the pancreas. Midline incision is seen. New left colostomy. Shore catheter and air are seen in the urinary bladder. No gross ab normality of the uterus or right adnexa. The previously seen ventriculoperitoneal shunt tubing is n o longer seen. No gross bowel obstruction. Diffuse haziness of the mesentery. No definite focal drainable fluid collection. Presacral stranding. IMPRESSION: Interval midline incision and colostomy. Resolved free air. Subcapsular fluid about the liver. Sl ight decrease in pelvic free fluid. New presacral stranding. Removal of ventriculoperitoneal shunt tubing. Pelvic pigtail catheter remains in place. No definite new drainable fluid collection. Increase in bilateral pleural effusions and nodular lung infiltrates which will be described in sepa rate report of chest CT performed the same day. Other stable findings as above. RPTAT: HLBE Christina Bynum, Physician Date Time Electronically viewed and signed by Christina Bynum, Physician on 09/30/2016 06:54 LE/
--- NOTE | 2016-09-30 07:12 | RADRPT ---
PROCEDURE: CT Brain without contrast. CLINICAL INDICATION: History of hydrocephalus. Check ventricle size. TECHNIQUE: A CT of the brain without contrast was performed utilizing axial sections from the skul l base through the vertex. The patient was scanned without intravenous contrast enhancement. Sagitta l and coronal reformatted images were obtained using the data from the axial images. Total exam DLP is 110.25 mGy-cm. CTDIvol is 45.01 mGy. One or more of the following dose reduction techniques we re used: Automated exposure control, adjustment of the mA and/or kV according to patient size, use o f iterative reconstruction technique. COMPARISON: CT scan of the brain dated 09/25/2016 which demonstrated a right transfrontal shunt wi th the tip in the region of the right foramen of Monro. FINDINGS: There is normal patel-white matter differentiation. The ventricles are normal in size. There is a right transfrontal ventricular shunt catheter with th e tip in the region of the right foramen of Monro. The lateral ventricles appear similar in size to the prior study. The third ventricle is slightly larger measuring 10 mm in transverse dimension wh ereas previously it measured 7 mm in transverse dimension. There is mild enlargement of the sulci c onsistent with atrophy. There is decreased attenuation of the periventricular white matter consistent with microangiopathic ischemic change. There is no intracranial hemorrhage or space-occupying lesion. Vascular calcifications are present consistent with atherosclerosis. A nasogastric tube is present in the right side of the nose. Fluid is present in the paranasal sinuses, unchanged. There is no skull fracture or lytic lesion. IMPRESSION: 1. Atrophy. 2. Microangiopathic ischemic change. 3. Atherosclerosis. 4. Right-sided [employer] shunt catheter unchanged. 5. Unchanged size of the lateral ventricles. 6. Slightly larger third ventricle. 7. Otherwise unremarkable noncontrast CT scan of the brain. RPTAT: QQ .Beto Cortes MD, MD Date Time Electronically viewed and signed by .Beto Cortes MD, on 09/30/2016 07:12 .R/
--- NOTE | 2016-09-30 07:36 | RADRPT ---
PROCEDURE: CT Chest without contrast. CLINICAL INDICATION: Sepsis TECHNIQUE: Spiral CT images through the chest without contrast. Coronal and sagittal reformatted images were obtained from the axial source images. The total exam CTDI equals 13.84 mGy and the tota l exam DLP equals 527.92 mGy-cm. One or more of the following dose reduction techniques were used: a utomated exposure control, adjustment of the mA and/or kV according to patient size, or use of itera tive reconstruction technique. COMPARISON: 09/21/2016 FINDINGS: There has been significant development of diffuse peribronchial thickening and peribronchial alveola r opacity with confluent nodular opacities. This is most prominent in the upper lobes but is seen t hroughout the lung arizmendi bilaterally. There is also some component of bilateral upper lobe bronchi ectasis. There is some central lucency within a number of the nodules. 1 such nodule in the right lower lobe measures 9 mm in diameter. The largest area of confluent opacity is medially at the righ t lung apex, measuring up to 4.4 cm in diameter. Bilateral pleural effusions, large, have increased since the prior study and associated compressive atelectasis has increased as well. There is now d iffuse anasarca. There has been placement of an endotracheal tube which appears in good position. Nasogastric tube courses into the stomach. Small pericardial effusion is seen. Aortic and coronary artery calcification is seen. Right PICC line is seen in place with tip in the superior vena cava. Small mediastinal nodes are seen. Degenerative change of the spine is seen. IMPRESSION: Significant development of peribronchial thickening and patchy peribronchial nodular infiltrates, so me with central lucency within which suggests possible septic emboli or perhaps fungal infection. I ncreased pleural effusions and development of anasarca. Tubes and lines in good position. RPTAT: HLBE Physician Lamberto Date Time Electronically viewed and signed by Physician Lamberto on 09/30/2016 07:36 LE/
[2016-09-30] MEDS: PANTOPRAZOLE 40 MG INJ IV SCH (07:46)
[2016-09-30] MEDS: VANCOMYCIN 1 GM in NS 250 ML IVPB SCH (07:46)
[2016-09-30] MEDS: MEROPENEM 500MG/50 ML (PMX) 50 ML IVPB SCH ×3 (07:47→22:00)
--- NOTE | 2016-09-30 08:15 | PN ---
Date/Time of Note Date/Time of Note DATE: 09/30/16 TIME: 08:07 Assessment/Plan VTE Prophylaxis VTE Prophylaxis Intervention: other Lines/Catheters IV Catheter Type (from Nrsg): PICC Line Central line still needed: Yes Urinary Cath still in place: Yes Reason Cath still needed: other (indicate) Assessment/Plan Chief Complaint/Hosp Course 1. Nonoliguric acute kidney injury. Etiology secondary ATN -Renal function has been improving with supportive care continue current treatment plan renally dose meds avoid nephrotoxins - 2. Hypernatremia Improving slowly Continue free water flushes, continue D5 water Monitor serial sodium levels 3. Hypokalemia secondary to diuretics Replete potassium chloride Start Aldactone 50 mg daily Shock, presumed sepsis, Patient's been reintroduced on pressure support Continue broad-spectrum antibiotics next, follow-up cultures Recommend to hold diuretic therapy in the setting of shock Monitor closely Anemia Monitor H&H levels Mineral bone disorder Monitor calcium phosphorus levels Lactic acidosis secondary to shock -Continue to monitor 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 -Continue treatment plan -Follow-up with surgery 8. Respiratory failure Patient reintubated Chest x-ray ABG reviewed Follow-up with pulmonary 9. Volume overload/anasarca -Hold diuretic therapy in the setting of shock Monitor I's and O's closely 10. History of intracranial hemorrhage in the past status post [employer] shunt placement that has been stable over time -[employer] shunt was externalized during the surgery September 21, 2016 due to abdominal infection, per neurosurgical notes may need to be reconnected once patient stable versus removed Problems: Subjective 24 Hr Interval Summary Free Text/Dictation Patient is critically ill was reintubated Urinary output has been adequate No other events noted Exam/Review of Systems Vital Signs Vitals Vital Signs Date Time Temp Pulse Resp B/P Pulse Ox O2 Delivery O2 Flow Rate FiO2 09/30/16 07:00 77 35 90/60 100 Mechanical Ventilator 09/30/16 05:10 40 09/30/16 04:00 99.3 09/27/16 09:00 6.0 Intake and Output 09/29/16 09/29/16 09/30/16 15:00 23:00 07:00 Intake Total 654.37 ml 2159.220 ml 412.21 ml Output Total 935 ml 230 ml 155 ml Balance -280.63 ml 1929.220 ml 257.21 ml Exam HEENT: Head is normocephalic, NECK: Supple. HEART: regular LUNGS: Show diminished breath sounds at base. ABDOMEN: Soft, nontender to palpation without rebound or guarding., Positive colostomy EXTREMITIES: Negative for clubbing, cyanosis. Positive edema anasarca DERMATOLOGIC: No rashes. MUSCULOSKELETAL: No joint effusions, NEUROLOGIC: No change in exam. Results Result Diagram: 09/30/16 0510 09/30/16 0510 Results 24 hrs Laboratory Tests Test 09/29/16 11:30 09/29/16 16:48 09/29/16 17:30 09/30/16 05:10 Blood Gas Specimen Source Blood arterial Blood arterial Arterial Blood Date Drawn 09/29/2016 12:10:56 PM 09/29/2016 5:40:47 PM Arterial Blood pH (Temp corrected) 7.500 H 7.527 H Arterial Blood pCO2 (Temp correct) 45.3 H 38.1 Arterial Blood pO2 (Temp corrected) 350.6 H 98.5 H Arterial Blood HCO3 34.5 H 30.9 H Arterial Blood Base Excess 10.4 H 7.6 H Arterial Blood Oxygen Saturation 99.0 97.1 Cain Test N/A N/A Arterial Blood Gas Puncture Site Right Brachial Right Brachial Arterial Blood Carboxyhemoglobin 0.3 0.3 Arterial Blood Methemoglobin 0.8 0.7 Blood Gas A-a O2 Differential 317.1 H 142.9 H Oxyhemoglobin Percent 97.9 96.1 Total Hemoglobin 6.4 L 8.4 L Blood Gas Temperature 37.0 37.0 Blood Gas Respiration Rate 16.0 16.0 Blood Gas Actual Respiration Rate 16 16 Blood Gas Modality VENT - AC VENT - AC FiO2 100.0 40.0 Blood Gas Tidal Volume 550.0 550.0 Blood Gas Low PEEP Setting 5.0 5.0 Blood Gas Critical Value Read Back KHRIS MEHTA Blood Gas Notified Whom ISABELLE RÍOS Blood Gas Notified Time 09/29/2016 12:22:27 PM 09/29/2016 5:52:24 PM White Blood Count 24.9 H 30.0 #H Red Blood Count 2.59 L 3.64 #L Hemoglobin 6.9 *L 9.8 #L Hematocrit 21.8 L 29.6 #L Mean Corpuscular Volume 84.2 81.3 L Mean Corpuscular Hemoglobin 26.6 L 26.9 L Mean Corpuscular Hemoglobin Concent 31.7 L 33.1 Red Cell Distribution Width 21.3 H 20.6 H Platelet Count 102 #L 126 #L Mean Platelet Volume 13.4 H Neutrophils % 87.0 H Lymphocytes % 6.0 L Eosinophils % 2.0 Nucleated Red Blood Cells % 0.2 H 0.2 H Neutrophils # 21.7 H Band Neutrophils # 21.7 H Lymphocytes # 1.5 Eosinophils # 0.5 Prothrombin Time 17.0 H 16.5 H Prothrombin Time Ratio 1.3 1.3 INR International Normalized Ratio 1.38 1.32 Sodium Level 144 144 Potassium Level 3.4 L 3.6 Chloride Level 98 100 Carbon Dioxide Level 35 H 33 H Anion Gap 14 15 Blood Urea Nitrogen 25 H 23 H Creatinine 0.61 0.74 Glucose Level 188 145 # Lactic Acid Level 2.4 *H 2.9 *H Calcium Level 7.1 L 7.3 L Phosphorus Level 2.4 L 2.6 Magnesium Level 1.8 2.2 Total Bilirubin 0.5 1.7 H Direct Bilirubin 0.10 1.10 #H Indirect Bilirubin 0.4 0.6 Aspartate Amino Transf (AST/SGOT) 24 26 Alanine Aminotransferase (ALT/SGPT) 37 37 Alkaline Phosphatase 104 138 H Total Protein 4.4 L 5.3 L Albumin 1.9 L 2.3 L Globulin 2.50 3.00 Albumin/Globulin Ratio 0.76 0.76 Lipase 168 168 Activated Partial Thromboplast Time 29.1 B-Type Natriuretic Peptide 29492 H Medications Medications Current Medications Morphine Sulfate (morphine) 2 mg Q4H PRN IV PAIN Last administered on 08:39; Admin Dose 2 MG; Start 09/15/16 at 23:30 Ondansetron HCl (Zofran Inj) 4 mg Q6H PRN IV NAUSEA AND/OR VOMITING Last administered on 09/26/16 09:23; Admin Dose 4 MG; Start 09/16/16 at 00:30 Acetaminophen (Tylenol Tab) 650 mg Q6H PRN PO PAIN LEVEL 1-3 OR FEVER Last administered on 09/30/16 01:22; Admin Dose 650 MG; Start 09/16/16 at 00:30 Polyethylene Glycol 17 gm 17 gm DAILY PO Last administered on 09/29/16 08:37; Admin Dose 17 GM; Start 09/20/16 at 11:00 Meropenem/Sodium Chloride 50 ml @ 200 mls/hr Q8 IVPB Last administered on 09/30 07:47; Admin Dose 200 MLS/HR; Start 09/20/16 at 22:00 Fluconazole/ Sodium Chloride 50 ml @ 50 mls/hr Q24H IVPB Last administered on 17:47; Admin Dose 50 MLS/HR; Start 09/20/16 at 16:30 Norepinephrine 16 mg/Dextrose 500 ml @ 1.87 mls/hr TITRATE IV Last administered on 09/29/16 13:22; Admin Dose 1.87 MLS/HR; Start 09/21/16 at 09:00 Propofol (Diprivan) 100 ml @ 1.671 mls/ hr Q12H IV Last administered on 06:00; Admin Dose 4.01 MLS/HR; Start 09/21/16 at 02:30 Acetaminophen/ Hydrocodone Bitart ([place] (5/325)) 1 tab Q4H PRN PO PAIN LEVEL 4 -7 Last administered on 09/28/16 21:20; Admin Dose 1 TAB; Start 09/21/16 at 15: 00 Acetaminophen/ Hydrocodone Bitart ([place] (5/325)) 2 tab Q4H PRN PO PAIN LEVEL 7 -10; Start 09/21/16 at 15:00 Hydromorphone HCl (Dilaudid) 0.5 mg Q2H PRN IV PAIN Last administered on 16:41; Admin Dose 0.5 MG; Start 09/21/16 at 15:00 Hydromorphone HCl (Dilaudid) 1 mg Q2H PRN IV PAIN Last administered on 07:31; Admin Dose 1 MG; Start 09/21/16 at 15:00 Docusate Sodium (Colace) 100 mg BID PRN PO CONSTIPATION; Start 09/21/16 at 15: 00 Enoxaparin Sodium (Lovenox) 40 mg DAILY SC ; Start 09/22/16 at 09:00; Status Future Hold Docusate Sodium (Colace Liquid Cup) 100 mg BID NGT Last administered on 08:37; Admin Dose 100 MG; Start 09/22/16 at 21:00 Pantoprazole (Protonix Iv) 40 mg DAILY@06 IV Last administered on 09/30/16 07: 46; Admin Dose 40 MG; Start 09/26/16 at 06:00 IV Flush (NS 10 ml) 10 ml PRN PRN IV IV PROTOCOL; Start 09/25/16 at 12:00 Metoprolol Tartrate 25 mg 25 mg BID PO Last administered on 09/29/16 08:39; Admin Dose 25 MG; Start 09/27/16 at 21:00 Potassium Chloride/Dextrose (D5W + KCl 20 Meq) 1,000 ml @ 75 mls/hr [id number] IV Last administered on 09/30/16 04:40; Admin Dose 75 MLS/HR; Start 09/27/16 at 18:00 Spironolactone 50 mg 50 mg DAILY NGT Last administered on 09/29/16 08:38; Admin Dose 50 MG; Start 09/28/16 at 09:00 Vancomycin HCl 250 ml @ 125 mls/hr Q24H IVPB Last administered on 09/30/16 07 :46; Admin Dose 125 MLS/HR; Start 09/30/16 at 06:00 Dopamine HCl/ Dextrose 250 ml @ 6.053 mls/ hr TITRATE IV Last administered on 09/30/16 04:46; Admin Dose 6.053 MLS/HR; Start 09/29/16 at 11:00 Phenylephrine HCl/ Dextrose (Marcell-Syneph/D5W) 500 ml @ 75 mls/hr TITRATE IV ; Start 09/29/16 at 14:00 KIRAN CASTILLO DO Sep 30, 2016 08:14
[2016-09-30] MEDS: ALBUMIN HUMAN 25% 100 ML IV SCH ×2 (08:32→16:21)
[2016-09-30] MEDS: POLYETHYLENE GLYCOL 17 GM PACKET PO SCH (08:32)
[2016-09-30] MEDS: DOCUSATE SODIUM 10 MG/ML (10ML CUP) NGT SCH ×2 (08:32→21:00)
[2016-09-30] MEDS: METOPROLOL 25 MG TAB PO SCH (08:33)
[2016-09-30] MEDS: SPIRONOLACTONE 50 MG TAB NGT SCH (08:33)
[2016-09-30 09:28] LABS: ANISOCYTOSIS 1+ (0-0); EOSINOPHILS % (M) 2 % (0-7); ERYTHROBLAST% (NRBC) (M) 1 % (0-0); GIANT THROMBO% (M) 2 % (0-0); MONOCYTES % (M) 2 % (0-11); PLATELET ESTIMATE DECREASED; POIKILOCYTOSIS 1+ (0-0); POLYCHROMASIA 2+ (0-0)
[2016-09-30] MEDS: HYDROmorphONE 1 MG/ML SYG IV PRN (09:31)
--- NOTE | 2016-09-30 09:57 | PN ---
Date/Time of Note Date/Time of Note DATE: 09/30/16 TIME: 09:47 Assessment/Plan VTE Prophylaxis VTE Prophylaxis Intervention: SCD's Lines/Catheters IV Catheter Type (from [facility]): PICC Line Central line still needed: Yes Urinary Cath still in place: Yes Reason Cath still needed: other (indicate) Assessment/Plan Chief Complaint/Hosp Course Chief Complaint/Hosp Course 1. Severe sepsis with systemic shock and organ dysfunction 2/2 #2 2. Non resolving diverticulitis with abscess and sigmoid colon perforation * s/p sigmoid colectomy with end colostomy (Reid's procedure) and adhesiolyis on 09/21/16 * Status post completion of hemicolectomy and colostomy placement * Patient also now has wound VAC on anterior abdominal wall Dr. Maldonado managing . Follow-up CT of the abdomen and pelvis 3. Respiratory failure-patient reintubated 4. Mild troponin elevation likely type 2 from #1: Stable 5. Acute transaminitis 2/2 shock liver: improving 6. History of intracranial hemorrhage in the past status post DISTILL[employer] MILLER shunt placement that has been stable over time * DISTILL[employer] M[employer]ER shunt was externalized during the surgery September 21, 2016 due to abdominal infection, per neurosurgical notes may need to be reconnected once patient stable versus removed 7. Hypernatremia likely secondary to #1: improved 8. Severe coagulopathy also as a result of #1: improving 9. Iron deficiency hypochromic anemia on iron infusion therapy 10. Diffuse anasarca as well as bilateral pleural effusions likely associated hypoalbuminemia 11. Bilateral pneumonia with vascular congestion concerning for BUD S 12. Acute renal insufficiency secondary to #1 PLAN: * Continue ICU care management * Continue ventilator monitoring and management /follow pulmonary recommendations * Resume tube feeds when stable and if okay with surgery * Continue broad-spectrum antibiotics per ID * Status post blood transfusion, serial labs, electrolytes replacement as indicated * Continue serial lactic acid trend * Patient's management remains dynamic depending on her clinical symptoms and lab findings, she continues require close monitoring, follow-ups and frequent reevaluation * Appreciate all consultants * CODE STATUS is now chemical code, intubation okay Prophylaxis : SCDs / PPI Problems: Subjective 24 Hr Interval Summary Free Text/Dictation Patient remains intubated Sedated on propofol Vent setting 450 with FiO2 of 40% with PEEP of 5 On pressors via levophed at 6 kb Family at the bedside The diagnosis, treatment and prognosis was discussed with the patient family Exam/Review of Systems Vital Signs Vitals Vital Signs Date Time Temp Pulse Resp B/P Pulse Ox O2 Delivery O2 Flow Rate FiO2 09/30/16 09:17 59 16 100 40 09/30/16 07:00 90/60 Mechanical Ventilator 09/30/16 04:00 99.3 09/27/16 09:00 6.0 Intake and Output 09/29/16 09/29/16 09/30/16 15:00 23:00 07:00 Intake Total 654.37 ml 2259.220 ml 412.21 ml Output Total 935 ml 450 ml 595 ml Balance -280.63 ml 1809.220 ml -182.79 ml Exam General: The patient intubated and sedated, responds to pain stimuli On pressors via levophed HEENT: Atraumatic, normocephalic. The pupils are equal and symmetric Lungs: Decreased breath sounds bilateral lower lung field Chest: Symmetric Heart: Normal S1-S2, Regular rhythm and rate. Abdomen: Soft , nontender, minimally distended , bowel sounds are present. Colostomy present in the lower abdominal region, biliary drain in place Extremities: +1 edema no cyanosis Neurologic: Sedated, responds to pain stimuli. Results Result Diagram: 09/30/16 0510 09/30/16 0510 Results 24 hrs Laboratory Tests Test 09/29/16 11:30 09/29/16 16:48 09/29/16 17:30 09/30/16 05:10 Blood Gas Specimen Source Blood arterial Blood arterial Arterial Blood Date Drawn 09/29/2016 12:10:56 PM 09/29/2016 5:40:47 PM Arterial Blood pH (Temp corrected) 7.500 H 7.527 H Arterial Blood pCO2 (Temp correct) 45.3 H 38.1 Arterial Blood pO2 (Temp corrected) 350.6 H 98.5 H Arterial Blood HCO3 34.5 H 30.9 H Arterial Blood Base Excess 10.4 H 7.6 H Arterial Blood Oxygen Saturation 99.0 97.1 Cain Test N/A N/A Arterial Blood Gas Puncture Site Right Brachial Right Brachial Arterial Blood Carboxyhemoglobin 0.3 0.3 Arterial Blood Methemoglobin 0.8 0.7 Blood Gas A-a O2 Differential 317.1 H 142.9 H Oxyhemoglobin Percent 97.9 96.1 Total Hemoglobin 6.4 L 8.4 L Blood Gas Temperature 37.0 37.0 Blood Gas Respiration Rate 16.0 16.0 Blood Gas Actual Respiration Rate 16 16 Blood Gas Modality VENT - AC VENT - AC FiO2 100.0 40.0 Blood Gas Tidal Volume 550.0 550.0 Blood Gas Low PEEP Setting 5.0 5.0 Blood Gas Critical Value Read Back KHRIS MEHTA Blood Gas Notified Whom ISABELLE RÍOS Blood Gas Notified Time 09/29/2016 12:22:27 PM 09/29/2016 5:52:24 PM White Blood Count 24.9 H 30.0 #H Red Blood Count 2.59 L 3.64 #L Hemoglobin 6.9 *L 9.8 #L Hematocrit 21.8 L 29.6 #L Mean Corpuscular Volume 84.2 81.3 L Mean Corpuscular Hemoglobin 26.6 L 26.9 L Mean Corpuscular Hemoglobin Concent 31.7 L 33.1 Red Cell Distribution Width 21.3 H 20.6 H Platelet Count 102 #L 126 #L Mean Platelet Volume 13.4 H Neutrophils % 87.0 H Lymphocytes % 6.0 L Eosinophils % 2.0 Nucleated Red Blood Cells % 0.2 H 1 H Neutrophils # 21.7 H Band Neutrophils # 21.7 H Lymphocytes # 1.5 Eosinophils # 0.5 Prothrombin Time 17.0 H 16.5 H Prothrombin Time Ratio 1.3 1.3 INR International Normalized Ratio 1.38 1.32 Sodium Level 144 144 Potassium Level 3.4 L 3.6 Chloride Level 98 100 Carbon Dioxide Level 35 H 33 H Anion Gap 14 15 Blood Urea Nitrogen 25 H 23 H Creatinine 0.61 0.74 Glucose Level 188 145 # Lactic Acid Level 2.4 *H 2.9 *H Calcium Level 7.1 L 7.3 L Phosphorus Level 2.4 L 2.6 Magnesium Level 1.8 2.2 Total Bilirubin 0.5 1.7 H Direct Bilirubin 0.10 1.10 #H Indirect Bilirubin 0.4 0.6 Aspartate Amino Transf (AST/SGOT) 24 26 Alanine Aminotransferase (ALT/SGPT) 37 37 Alkaline Phosphatase 104 138 H Total Protein 4.4 L 5.3 L Albumin 1.9 L 2.3 L Globulin 2.50 3.00 Albumin/Globulin Ratio 0.76 0.76 Lipase 168 168 Segmented Neutrophils % (Manual) 94 H Lymphocytes % (Manual) 2 L Monocytes % (Manual) 2 Eosinophils % (Manual) 2 Absolute Lymphocytes (Manual) 0.6 L Absolute Monocytes (Manual) 0.6 Smudge Cells % 1 H Thrombocytosis 2 H Platelet Estimate DECREASED Polychromasia 2+ Poikilocytosis 1+ Anisocytosis 1+ Activated Partial Thromboplast Time 29.1 B-Type Natriuretic Peptide 22908 H Test 09/30/16 09:28 Lab Scanned Report REFERENCE LAB Medications Medications Current Medications Morphine Sulfate (morphine) 2 mg Q4H PRN IV PAIN Last administered on 08:39; Admin Dose 2 MG; Start 09/15/16 at 23:30 Ondansetron HCl (Zofran Inj) 4 mg Q6H PRN IV NAUSEA AND/OR VOMITING Last administered on 09/26/16 09:23; Admin Dose 4 MG; Start 09/16/16 at 00:30 Acetaminophen (Tylenol Tab) 650 mg Q6H PRN PO PAIN LEVEL 1-3 OR FEVER Last administered on 09/30/16 01:22; Admin Dose 650 MG; Start 09/16/16 at 00:30 Polyethylene Glycol 17 gm 17 gm DAILY PO Last administered on 09/30/16 08:32; Admin Dose 17 GM; Start 09/20/16 at 11:00 Meropenem/Sodium Chloride 50 ml @ 200 mls/hr Q8 IVPB Last administered on 09/30 07:47; Admin Dose 200 MLS/HR; Start 09/20/16 at 22:00 Fluconazole/ Sodium Chloride 50 ml @ 50 mls/hr Q24H IVPB Last administered on 17:47; Admin Dose 50 MLS/HR; Start 09/20/16 at 16:30 Norepinephrine 16 mg/Dextrose 500 ml @ 1.87 mls/hr TITRATE IV Last administered on 09/29/16 13:22; Admin Dose 1.87 MLS/HR; Start 09/21/16 at 09:00 Propofol (Diprivan) 100 ml @ 1.671 mls/ hr Q12H IV Last administered on 06:00; Admin Dose 4.01 MLS/HR; Start 09/21/16 at 02:30 Acetaminophen/ Hydrocodone Bitart ([place] (5/325)) 1 tab Q4H PRN PO PAIN LEVEL 4 -7 Last administered on 09/28/16 21:20; Admin Dose 1 TAB; Start 09/21/16 at 15: 00 Acetaminophen/ Hydrocodone Bitart ([place] (5/325)) 2 tab Q4H PRN PO PAIN LEVEL 7 -10; Start 09/21/16 at 15:00 Hydromorphone HCl (Dilaudid) 0.5 mg Q2H PRN IV PAIN Last administered on 16:41; Admin Dose 0.5 MG; Start 09/21/16 at 15:00 Hydromorphone HCl (Dilaudid) 1 mg Q2H PRN IV PAIN Last administered on 09:31; Admin Dose 1 MG; Start 09/21/16 at 15:00 Docusate Sodium (Colace) 100 mg BID PRN PO CONSTIPATION; Start 09/21/16 at 15: 00 Enoxaparin Sodium (Lovenox) 40 mg DAILY SC ; Start 09/22/16 at 09:00; Status Future Hold Docusate Sodium (Colace Liquid Cup) 100 mg BID NGT Last administered on 08:32; Admin Dose 100 MG; Start 09/22/16 at 21:00 Pantoprazole (Protonix Iv) 40 mg DAILY@06 IV Last administered on 09/30/16 07: 46; Admin Dose 40 MG; Start 09/26/16 at 06:00 IV Flush (NS 10 ml) 10 ml PRN PRN IV IV PROTOCOL; Start 09/25/16 at 12:00 Metoprolol Tartrate 25 mg 25 mg BID PO Last administered on 09/29/16 08:39; Admin Dose 25 MG; Start 09/27/16 at 21:00 Potassium Chloride/Dextrose (D5W + KCl 20 Meq) 1,000 ml @ 75 mls/hr [id number] IV Last administered on 09/30/16 04:40; Admin Dose 75 MLS/HR; Start 09/27/16 at 18:00 Spironolactone 50 mg 50 mg DAILY NGT Last administered on 09/29/16 08:38; Admin Dose 50 MG; Start 09/28/16 at 09:00 Vancomycin HCl 250 ml @ 125 mls/hr Q24H IVPB Last administered on 09/30/16 07 :46; Admin Dose 125 MLS/HR; Start 09/30/16 at 06:00 Dopamine HCl/ Dextrose 250 ml @ 6.053 mls/ hr TITRATE IV Last administered on 09/30/16 04:46; Admin Dose 6.053 MLS/HR; Start 09/29/16 at 11:00 Phenylephrine HCl 40 mg/Dextrose 500 ml @ 75 mls/hr TITRATE IV ; Start at 14:00 Albumin Human (Albumin Human 25%) 100 ml @ 100 mls/hr Q8H IV Last administered on 09/30/16 08:32; Admin Dose 100 MLS/HR; Start 09/30/16 at 08:30 ; Stop 10/01/16 at 01:29 ROBBY SPEAR MD Sep 30, 2016 09:57
--- NOTE | 2016-09-30 10:58 | CONS ---
Date/Time of Note Date/Time of Note DATE: 09/30/16 TIME: 10:54 Assessment/Plan Assessment/Plan Chief Complaint/Hosp Course Patient remains intubated, started on Levophed drip she is sedated in no distress CODE STATUS was changed to chemical T-max 99.5 T-current 98.2 pulse 60 respirations 16 blood pressure 103/56 saturation 100 on vent WBC 30 H&H 9.8 and 29.6 platelets 126 neutrophils 94 BN 23 creatinine 0.74 lactic acid 2.9 Microbiology: abdominal fluid culture on September 23 grew enterococcus species coag negative staph species and alpha hemolytic strep species, blood and urine cultures remain negative CT of the abdomen and pelvis done this morning revealed result free air slight decrease in pelvic free fluid pelvic pigtail catheter in place no definite new drainable fluid collection. Increase in bilateral pleural effusions and nodular lung infiltratesIndwelling's: PICC line placed on September 25 right upper chest [employer] shunt [place] catheter intra-abdominal drainage catheters, ETT, NGT Allergies: Penicillins Antibiotics: Vancomycin, fluconazole, meropenem Physical elimination: Well-developed well-nourished elderly woman who is intubated sedated, in no distress. Normocephalic sclera nonicteric. Bugle mucosa dry. Neck is supple, trachea midline. Chest rise symmetrical breath sounds diminished to bases. Heart: S1-S2. Abdomen distended, soft, bowel tones hypoactive. Extremities without cyanosis, with trace 1+ edema bilateral lower extremities. Skin: Pale with anasarca. Assessment: 1. Septic shock with persistent leukocytosis 2. Acute respiratory failure secondary to fluid overload and bilateral pneumonia 3. Status post perforated sigmoid colon repair with end colostomy and lysis of adhesions on September 21, 2016, status post abdominal lavage and lysis of adhesions and resection of distal transverse colon 09/24/16 4. Status post externalization of [employer] shunt on September 21, 2016 5. Acute renal failure 6. Severe anasarca Plan: Deteriorating, started on Levophed drip, covered with broad-spectrum antibiotics, will change Diflucan to Cancidas, add empiric Flagyl, order sputum culture, continue antibiotics, follow recommendations of consultants. Discussed with staff Discussed with Dr. Kathryn Maldonado Problems: Consultation Date/Type/Reason Admit Date/Time Sep 15, 2016 at 21:35 Type of Consultation: id Exam/Review of Systems Vital Signs Vitals Vital Signs Date Time Temp Pulse Resp B/P Pulse Ox O2 Delivery O2 Flow Rate FiO2 09/30/16 09:45 61 16 103/56 100 09/30/16 09:30 Mechanical Ventilator 09/30/16 09:17 40 09/30/16 07:30 98.2 09/27/16 09:00 6.0 Intake and Output 09/29/16 09/29/16 09/30/16 15:00 23:00 07:00 Intake Total 654.37 ml 2259.220 ml 412.21 ml Output Total 935 ml 450 ml 595 ml Balance -280.63 ml 1809.220 ml -182.79 ml Results Result Diagram: 09/30/16 0510 09/30/16 0510 Results 24 hrs Laboratory Tests Test 09/29/16 11:30 09/29/16 16:48 09/29/16 17:30 09/30/16 05:10 Blood Gas Specimen Source Blood arterial Blood arterial Arterial Blood Date Drawn 09/29/2016 12:10:56 PM 09/29/2016 5:40:47 PM Arterial Blood pH (Temp corrected) 7.500 H 7.527 H Arterial Blood pCO2 (Temp correct) 45.3 H 38.1 Arterial Blood pO2 (Temp corrected) 350.6 H 98.5 H Arterial Blood HCO3 34.5 H 30.9 H Arterial Blood Base Excess 10.4 H 7.6 H Arterial Blood Oxygen Saturation 99.0 97.1 Cain Test N/A N/A Arterial Blood Gas Puncture Site Right Brachial Right Brachial Arterial Blood Carboxyhemoglobin 0.3 0.3 Arterial Blood Methemoglobin 0.8 0.7 Blood Gas A-a O2 Differential 317.1 H 142.9 H Oxyhemoglobin Percent 97.9 96.1 Total Hemoglobin 6.4 L 8.4 L Blood Gas Temperature 37.0 37.0 Blood Gas Respiration Rate 16.0 16.0 Blood Gas Actual Respiration Rate 16 16 Blood Gas Modality VENT - AC VENT - AC FiO2 100.0 40.0 Blood Gas Tidal Volume 550.0 550.0 Blood Gas Low PEEP Setting 5.0 5.0 Blood Gas Critical Value Read Back KHRIS MEHTA Blood Gas Notified Whom ISABELLE RÍOS Blood Gas Notified Time 09/29/2016 12:22:27 PM 09/29/2016 5:52:24 PM White Blood Count 24.9 H 30.0 #H Red Blood Count 2.59 L 3.64 #L Hemoglobin 6.9 *L 9.8 #L Hematocrit 21.8 L 29.6 #L Mean Corpuscular Volume 84.2 81.3 L Mean Corpuscular Hemoglobin 26.6 L 26.9 L Mean Corpuscular Hemoglobin Concent 31.7 L 33.1 Red Cell Distribution Width 21.3 H 20.6 H Platelet Count 102 #L 126 #L Mean Platelet Volume 13.4 H Neutrophils % 87.0 H Lymphocytes % 6.0 L Eosinophils % 2.0 Nucleated Red Blood Cells % 0.2 H 1 H Neutrophils # 21.7 H Band Neutrophils # 21.7 H Lymphocytes # 1.5 Eosinophils # 0.5 Prothrombin Time 17.0 H 16.5 H Prothrombin Time Ratio 1.3 1.3 INR International Normalized Ratio 1.38 1.32 Sodium Level 144 144 Potassium Level 3.4 L 3.6 Chloride Level 98 100 Carbon Dioxide Level 35 H 33 H Anion Gap 14 15 Blood Urea Nitrogen 25 H 23 H Creatinine 0.61 0.74 Glucose Level 188 145 # Lactic Acid Level 2.4 *H 2.9 *H Calcium Level 7.1 L 7.3 L Phosphorus Level 2.4 L 2.6 Magnesium Level 1.8 2.2 Total Bilirubin 0.5 1.7 H Direct Bilirubin 0.10 1.10 #H Indirect Bilirubin 0.4 0.6 Aspartate Amino Transf (AST/SGOT) 24 26 Alanine Aminotransferase (ALT/SGPT) 37 37 Alkaline Phosphatase 104 138 H Total Protein 4.4 L 5.3 L Albumin 1.9 L 2.3 L Globulin 2.50 3.00 Albumin/Globulin Ratio 0.76 0.76 Lipase 168 168 Segmented Neutrophils % (Manual) 94 H Lymphocytes % (Manual) 2 L Monocytes % (Manual) 2 Eosinophils % (Manual) 2 Absolute Lymphocytes (Manual) 0.6 L Absolute Monocytes (Manual) 0.6 Smudge Cells % 1 H Thrombocytosis 2 H Platelet Estimate DECREASED Polychromasia 2+ Poikilocytosis 1+ Anisocytosis 1+ Activated Partial Thromboplast Time 29.1 B-Type Natriuretic Peptide [id number] H Test 09/30/16 09:28 Lab Scanned Report REFERENCE LAB Medications Medications Current Medications Morphine Sulfate (morphine) 2 mg Q4H PRN IV PAIN Last administered on 08:39; Admin Dose 2 MG; Start 09/15/16 at 23:30 Ondansetron HCl (Zofran Inj) 4 mg Q6H PRN IV NAUSEA AND/OR VOMITING Last administered on 09/26/16 09:23; Admin Dose 4 MG; Start 09/16/16 at 00:30 Acetaminophen (Tylenol Tab) 650 mg Q6H PRN PO PAIN LEVEL 1-3 OR FEVER Last administered on 09/30/16 01:22; Admin Dose 650 MG; Start 09/16/16 at 00:30 Polyethylene Glycol 17 gm 17 gm DAILY PO Last administered on 09/30/16 08:32; Admin Dose 17 GM; Start 09/20/16 at 11:00 Meropenem/Sodium Chloride 50 ml @ 200 mls/hr Q8 IVPB Last administered on 09/30 07:47; Admin Dose 200 MLS/HR; Start 09/20/16 at 22:00 Fluconazole/ Sodium Chloride 50 ml @ 50 mls/hr Q24H IVPB Last administered on 17:47; Admin Dose 50 MLS/HR; Start 09/20/16 at 16:30 Norepinephrine 16 mg/Dextrose 500 ml @ 1.87 mls/hr TITRATE IV Last administered on 09/29/16 13:22; Admin Dose 1.87 MLS/HR; Start 09/21/16 at 09:00 Propofol (Diprivan) 100 ml @ 1.671 mls/ hr Q12H IV Last administered on 06:00; Admin Dose 4.01 MLS/HR; Start 09/21/16 at 02:30 Acetaminophen/ Hydrocodone Bitart ([place] (5/325)) 1 tab Q4H PRN PO PAIN LEVEL 4 -7 Last administered on 09/28/16 21:20; Admin Dose 1 TAB; Start 09/21/16 at 15: 00 Acetaminophen/ Hydrocodone Bitart ([place] (5/325)) 2 tab Q4H PRN PO PAIN LEVEL 7 -10; Start 09/21/16 at 15:00 Hydromorphone HCl (Dilaudid) 0.5 mg Q2H PRN IV PAIN Last administered on 16:41; Admin Dose 0.5 MG; Start 09/21/16 at 15:00 Hydromorphone HCl (Dilaudid) 1 mg Q2H PRN IV PAIN Last administered on 09:31; Admin Dose 1 MG; Start 09/21/16 at 15:00 Docusate Sodium (Colace) 100 mg BID PRN PO CONSTIPATION; Start 09/21/16 at 15: 00 Enoxaparin Sodium (Lovenox) 40 mg DAILY SC ; Start 09/22/16 at 09:00; Status Future Hold Docusate Sodium (Colace Liquid Cup) 100 mg BID NGT Last administered on 08:32; Admin Dose 100 MG; Start 09/22/16 at 21:00 Pantoprazole (Protonix Iv) 40 mg DAILY@06 IV Last administered on 09/30/16 07: 46; Admin Dose 40 MG; Start 09/26/16 at 06:00 IV Flush 10 ml 10 ml PRN PRN IV IV PROTOCOL; Start 09/25/16 at 12:00 Potassium Chloride/Dextrose (D5W + KCl 20 Meq) 1,000 ml @ 75 mls/hr [id number] IV Last administered on 09/30/16 04:40; Admin Dose 75 MLS/HR; Start 09/27/16 at 18:00 Spironolactone 50 mg 50 mg DAILY NGT Last administered on 09/29/16 08:38; Admin Dose 50 MG; Start 09/28/16 at 09:00 Vancomycin HCl 250 ml @ 125 mls/hr Q24H IVPB Last administered on 09/30/16 07 :46; Admin Dose 125 MLS/HR; Start 09/30/16 at 06:00 Dopamine HCl/ Dextrose 250 ml @ 6.053 mls/ hr TITRATE IV Last administered on 09/30/16 04:46; Admin Dose 6.053 MLS/HR; Start 09/29/16 at 11:00 Phenylephrine HCl 40 mg/Dextrose 500 ml @ 75 mls/hr TITRATE IV ; Start at 14:00 Albumin Human (Albumin Human 25%) 100 ml @ 100 mls/hr Q8H IV Last administered on 09/30/16 08:32; Admin Dose 100 MLS/HR; Start 09/30/16 at 08:30 ; Stop 10/01/16 at 01:29 CORINA ESTRELLA NP Sep 30, 2016 10:58
[2016-09-30] MEDS ORDERED: CASPOFUNGIN 70 MG in SOD CHLORIDE 0.9% 250 ML IVPB ONE (12:00)
--- NOTE | 2016-09-30 12:05 | CONS ---
Date/Time of Note Date/Time of Note DATE: 09/30/16 TIME: 12:01 Consult Date/Type/Reason Admit Date/Time Sep 15, 2016 at 21:35 Initial Consult Date 09/21/16 Type of Consultation: Pulmonary Subjective Patient was intubated for respiratory distress. Continues mechanical ventilation. Objective Vital Signs Date Time Temp Pulse Resp B/P Pulse Ox O2 Delivery O2 Flow Rate FiO2 09/30/16 11:19 55 16 100 40 09/30/16 09:45 103/56 09/30/16 09:30 Mechanical Ventilator 09/30/16 07:30 98.2 09/27/16 09:00 6.0 Intake and Output 09/29/16 09/29/16 09/30/16 14:59 22:59 06:59 Intake Total 833.75 ml 2012.710 ml 572.21 ml Output Total 900 ml 385 ml 695 ml Balance -66.25 ml 1627.710 ml -122.79 ml Exam PHYSICAL EXAMINATION GENERAL: Chronically ill-appearing lady intubated on mechanical ventilation appears comfortable at rest VITAL SIGNS: see below. HEENT: Pupils equal, round, and reactive to light. CARDIAC: S1, S2, 1/6 systolic ejection murmur CHEST: Diminished air entry bilaterally. ABDOMEN: Mildly distended. Bowel sounds present no guarding or rebound EXTREMITIES: No cyanosis, clubbing edema +1 NEUROLOGIC: Generalized weakness Results/Medications Result Diagram: 09/30/16 0510 09/30/16 0510 Results 24 hrs Chest x-ray Bilateral pleural effusions Laboratory Tests Test 09/29/16 16:48 09/29/16 17:30 09/30/16 05:10 09/30/16 09:28 Blood Gas Specimen Source Blood arterial Arterial Blood Date Drawn 09/29/2016 5:40:47 PM Arterial Blood pH (Temp corrected) 7.527 H Arterial Blood pCO2 (Temp correct) 38.1 Arterial Blood pO2 (Temp corrected) 98.5 H Arterial Blood HCO3 30.9 H Arterial Blood Base Excess 7.6 H Arterial Blood Oxygen Saturation 97.1 Cain Test N/A Arterial Blood Gas Puncture Site Right Brachial Arterial Blood Carboxyhemoglobin 0.3 Arterial Blood Methemoglobin 0.7 Blood Gas A-a O2 Differential 142.9 H Oxyhemoglobin Percent 96.1 Total Hemoglobin 8.4 L Blood Gas Temperature 37.0 Blood Gas Respiration Rate 16.0 Blood Gas Actual Respiration Rate 16 Blood Gas Modality VENT - AC FiO2 40.0 Blood Gas Tidal Volume 550.0 Blood Gas Low PEEP Setting 5.0 Blood Gas Notified Whom Richard RÍOS Blood Gas Notified Time 09/29/2016 5:52:24 PM White Blood Count 24.9 H 30.0 #H Red Blood Count 2.59 L 3.64 #L Hemoglobin 6.9 *L 9.8 #L Hematocrit 21.8 L 29.6 #L Mean Corpuscular Volume 84.2 81.3 L Mean Corpuscular Hemoglobin 26.6 L 26.9 L Mean Corpuscular Hemoglobin Concent 31.7 L 33.1 Red Cell Distribution Width 21.3 H 20.6 H Platelet Count 102 #L 126 #L Mean Platelet Volume 13.4 H Neutrophils % 87.0 H Lymphocytes % 6.0 L Eosinophils % 2.0 Nucleated Red Blood Cells % 0.2 H 1 H Neutrophils # 21.7 H Band Neutrophils # 21.7 H Lymphocytes # 1.5 Eosinophils # 0.5 Prothrombin Time 17.0 H 16.5 H Prothrombin Time Ratio 1.3 1.3 INR International Normalized Ratio 1.38 1.32 Sodium Level 144 144 Potassium Level 3.4 L 3.6 Chloride Level 98 100 Carbon Dioxide Level 35 H 33 H Anion Gap 14 15 Blood Urea Nitrogen 25 H 23 H Creatinine 0.61 0.74 Glucose Level 188 145 # Lactic Acid Level 2.4 *H 2.9 *H Calcium Level 7.1 L 7.3 L Phosphorus Level 2.4 L 2.6 Magnesium Level 1.8 2.2 Total Bilirubin 0.5 1.7 H Direct Bilirubin 0.10 1.10 #H Indirect Bilirubin 0.4 0.6 Aspartate Amino Transf (AST/SGOT) 24 26 Alanine Aminotransferase (ALT/SGPT) 37 37 Alkaline Phosphatase 104 138 H Total Protein 4.4 L 5.3 L Albumin 1.9 L 2.3 L Globulin 2.50 3.00 Albumin/Globulin Ratio 0.76 0.76 Lipase 168 168 Segmented Neutrophils % (Manual) 94 H Lymphocytes % (Manual) 2 L Monocytes % (Manual) 2 Eosinophils % (Manual) 2 Absolute Lymphocytes (Manual) 0.6 L Absolute Monocytes (Manual) 0.6 Smudge Cells % 1 H Thrombocytosis 2 H Platelet Estimate DECREASED Polychromasia 2+ Poikilocytosis 1+ Anisocytosis 1+ Activated Partial Thromboplast Time 29.1 B-Type Natriuretic Peptide 22513 H Lab Scanned Report REFERENCE LAB Medications Current Medications Morphine Sulfate (morphine) 2 mg Q4H PRN IV PAIN Last administered on 08:39; Admin Dose 2 MG; Start 09/15/16 at 23:30 Ondansetron HCl (Zofran Inj) 4 mg Q6H PRN IV NAUSEA AND/OR VOMITING Last administered on 09/26/16 09:23; Admin Dose 4 MG; Start 09/16/16 at 00:30 Acetaminophen (Tylenol Tab) 650 mg Q6H PRN PO PAIN LEVEL 1-3 OR FEVER Last administered on 09/30/16 01:22; Admin Dose 650 MG; Start 09/16/16 at 00:30 Polyethylene Glycol 17 gm 17 gm DAILY PO Last administered on 09/30/16 08:32; Admin Dose 17 GM; Start 09/20/16 at 11:00 Meropenem/Sodium Chloride 50 ml @ 200 mls/hr Q8 IVPB Last administered on 09/30 07:47; Admin Dose 200 MLS/HR; Start 09/20/16 at 22:00 Norepinephrine 16 mg/Dextrose 500 ml @ 1.87 mls/hr TITRATE IV Last administered on 09/29/16 13:22; Admin Dose 1.87 MLS/HR; Start 09/21/16 at 09:00 Propofol (Diprivan) 100 ml @ 1.671 mls/ hr Q12H IV Last administered on 06:00; Admin Dose 4.01 MLS/HR; Start 09/21/16 at 02:30 Acetaminophen/ Hydrocodone Bitart ([place] (5/325)) 1 tab Q4H PRN PO PAIN LEVEL 4 -7 Last administered on 09/28/16 21:20; Admin Dose 1 TAB; Start 09/21/16 at 15: 00 Acetaminophen/ Hydrocodone Bitart ([place] (5/325)) 2 tab Q4H PRN PO PAIN LEVEL 7 -10; Start 09/21/16 at 15:00 Hydromorphone HCl (Dilaudid) 0.5 mg Q2H PRN IV PAIN Last administered on 16:41; Admin Dose 0.5 MG; Start 09/21/16 at 15:00 Hydromorphone HCl (Dilaudid) 1 mg Q2H PRN IV PAIN Last administered on 09:31; Admin Dose 1 MG; Start 09/21/16 at 15:00 Docusate Sodium (Colace) 100 mg BID PRN PO CONSTIPATION; Start 09/21/16 at 15: 00 Enoxaparin Sodium (Lovenox) 40 mg DAILY SC ; Start 09/22/16 at 09:00; Status Future Hold Docusate Sodium (Colace Liquid Cup) 100 mg BID NGT Last administered on 08:32; Admin Dose 100 MG; Start 09/22/16 at 21:00 Pantoprazole (Protonix Iv) 40 mg DAILY@06 IV Last administered on 09/30/16 07: 46; Admin Dose 40 MG; Start 09/26/16 at 06:00 IV Flush 10 ml 10 ml PRN PRN IV IV PROTOCOL; Start 09/25/16 at 12:00 Potassium Chloride/Dextrose (D5W + KCl 20 Meq) 1,000 ml @ 75 mls/hr [id number] IV Last administered on 09/30/16 04:40; Admin Dose 75 MLS/HR; Start 09/27/16 at 18:00 Spironolactone 50 mg 50 mg DAILY NGT Last administered on 09/29/16 08:38; Admin Dose 50 MG; Start 09/28/16 at 09:00 Vancomycin HCl 250 ml @ 125 mls/hr Q24H IVPB Last administered on 09/30/16 07 :46; Admin Dose 125 MLS/HR; Start 09/30/16 at 06:00 Dopamine HCl/ Dextrose 250 ml @ 6.053 mls/ hr TITRATE IV Last administered on 09/30/16 04:46; Admin Dose 6.053 MLS/HR; Start 09/29/16 at 11:00 Phenylephrine HCl 40 mg/Dextrose 500 ml @ 75 mls/hr TITRATE IV ; Start at 14:00 Albumin Human 100 ml @ 100 mls/hr Q8H IV Last administered on 09/30/16 08:32 ; Admin Dose 100 MLS/HR; Start 09/30/16 at 08:30; Stop 10/01/16 at 01:29 Caspofungin 50 mg/ Sodium Chloride 250 ml @ 250 mls/hr Q24H IVPB ; Start at 12:00 Caspofungin 70 mg/ Sodium Chloride 250 ml @ 250 mls/hr ONCE ONCE IVPB ; Start 09/30/16 at 12:00; Stop 09/30/16 at 12:59 Metronidazole (Flagyl 500 Mg (Pmx)) 100 ml @ 100 mls/hr Q8 IVPB ; Start at 14:00 Assessment/Plan Chief Complaint/Hosp Course Assessment 1. Severe sepsis and hypoxemic respiratory failure. Differential includes healthcare associated pneumonia versus aspiration pneumonia. Oxygenation improved currently on 40% FiO2. Postextubation worsening respiratory distress requiring noninvasive positive pressure ventilation. Chest x-ray shows pleural effusions with compressive atelectasis. Chest x-ray shows persistent bilateral pleural effusions. 2. Possible infected [employer] CHILD CAREGIVER shunt. Status post externalization 3. Status post bowel resection. 4. Severe sepsis with metabolic acidosis clinically improved 5. Postop anemia, hemoglobin 7.2 continue to monitor 6. Electrolyte abnormalities hyperkalemia and hypernatremia Plan 1. Continue mechanical ventilation. 2.' neurosurgery and general surgery recommendations, 3. Continue broad-spectrum antibiotics 4. Thoracentesis left and right lungs and pleural fluid studies. 5. DVT and GI prophylaxis 6. Renal recommendations regarding electrolyte abnormalities, consider increasing diuretics Discussed with staff Critical care time 40 minutes. Problems: DAMIEN GUADARRAMA MD, [facility] Sep 30, 2016 12:05
--- NOTE | 2016-09-30 13:47 | CONS ---
Date/Time of Note Date/Time of Note DATE: 09/30/16 TIME: 13:25 Assessment/Plan Assessment/Plan Chief Complaint/Hosp Course Acute respiratory failure: Due to septic shock, severe metabolic acidosis as well as pulm edema. Reintubated 09/29 after failing BiPAP. Acute diastolic heart failure: Secondary to volume resuscitation in setting of low albumin and third spacing. Significant anasarca again Paroxysmal afib: converted on amiodarone. Converted back to afib on dopamine but now off and back in sinus Septic shock: from intraabdominal abscess and possible infected [employer]O TEACHER shunt. S/p sigmoid colectomy. Was off pressors but transiently required pressor support and 09/30 after reintubation but now off again. NSTEMI: Trop mildly elevated likely type II in the setting of septic shock. Echo from 09/18 showed normal EF and no significant valvular disease. Repeat trop normalized Diverticulitis complicated by abscess s/p sigmoid colectomy and now colostomy Coagulopathy: ?DIC. Resolved h/o ICH with PIANO TEACHER shunt -lasix being held due to shock but now off presors -would suggest holding IVF and restarting lasix -metoprolol 25mg BID as BP tolerates Problems: Consultation Date/Type/Reason Admit Date/Time Sep 15, 2016 at 21:35 Initial Consult Date 09/21/16 Type of Consultation: Cardiology 24 HR Interval Summary Free Text/Dictation Reintubated yesterday as did not do well on BiPAP. Started on pressor support. Had afib with RVR on dopamine which resolved after stopping it Exam/Review of Systems Vital Signs Vitals Vital Signs Date Time Temp Pulse Resp B/P Pulse Ox O2 Delivery O2 Flow Rate FiO2 09/30/16 13:18 124 16 100 40 09/30/16 13:00 116/94 Mechanical Ventilator 09/30/16 11:00 97.8 09/27/16 09:00 6.0 Intake and Output 09/29/16 09/29/16 09/30/16 15:00 23:00 07:00 Intake Total 654.37 ml 2259.220 ml 412.21 ml Output Total 935 ml 450 ml 595 ml Balance -280.63 ml 1809.220 ml -182.79 ml Exam Constitutional: alert ENMT: intubated Neck: jvd (8cm) Respiratory: clear to auscultation, diminished breath sounds Cardiovascular: edema (3+), regular rate and rhythm, systolic murmur Gastrointestinal: non-tender, soft Neurological: nl mental status Results Result Diagram: 09/30/16 0510 09/30/16 0510 Results 24 hrs Laboratory Tests Test 09/29/16 16:48 09/29/16 17:30 09/30/16 05:10 09/30/16 09:28 Blood Gas Specimen Source Blood arterial Arterial Blood Date Drawn 09/29/2016 5:40:47 PM Arterial Blood pH (Temp corrected) 7.527 H Arterial Blood pCO2 (Temp correct) 38.1 Arterial Blood pO2 (Temp corrected) 98.5 H Arterial Blood HCO3 30.9 H Arterial Blood Base Excess 7.6 H Arterial Blood Oxygen Saturation 97.1 Cain Test N/A Arterial Blood Gas Puncture Site Right Brachial Arterial Blood Carboxyhemoglobin 0.3 Arterial Blood Methemoglobin 0.7 Blood Gas A-a O2 Differential 142.9 H Oxyhemoglobin Percent 96.1 Total Hemoglobin 8.4 L Blood Gas Temperature 37.0 Blood Gas Respiration Rate 16.0 Blood Gas Actual Respiration Rate 16 Blood Gas Modality VENT - AC FiO2 40.0 Blood Gas Tidal Volume 550.0 Blood Gas Low PEEP Setting 5.0 Blood Gas Notified Whom Richard RÍOS Blood Gas Notified Time 09/29/2016 5:52:24 PM White Blood Count 24.9 H 30.0 #H Red Blood Count 2.59 L 3.64 #L Hemoglobin 6.9 *L 9.8 #L Hematocrit 21.8 L 29.6 #L Mean Corpuscular Volume 84.2 81.3 L Mean Corpuscular Hemoglobin 26.6 L 26.9 L Mean Corpuscular Hemoglobin Concent 31.7 L 33.1 Red Cell Distribution Width 21.3 H 20.6 H Platelet Count 102 #L 126 #L Mean Platelet Volume 13.4 H Neutrophils % 87.0 H Lymphocytes % 6.0 L Eosinophils % 2.0 Nucleated Red Blood Cells % 0.2 H 1 H Neutrophils # 21.7 H Band Neutrophils # 21.7 H Lymphocytes # 1.5 Eosinophils # 0.5 Prothrombin Time 17.0 H 16.5 H Prothrombin Time Ratio 1.3 1.3 INR International Normalized Ratio 1.38 1.32 Sodium Level 144 144 Potassium Level 3.4 L 3.6 Chloride Level 98 100 Carbon Dioxide Level 35 H 33 H Anion Gap 14 15 Blood Urea Nitrogen 25 H 23 H Creatinine 0.61 0.74 Glucose Level 188 145 # Lactic Acid Level 2.4 *H 2.9 *H Calcium Level 7.1 L 7.3 L Phosphorus Level 2.4 L 2.6 Magnesium Level 1.8 2.2 Total Bilirubin 0.5 1.7 H Direct Bilirubin 0.10 1.10 #H Indirect Bilirubin 0.4 0.6 Aspartate Amino Transf (AST/SGOT) 24 26 Alanine Aminotransferase (ALT/SGPT) 37 37 Alkaline Phosphatase 104 138 H Total Protein 4.4 L 5.3 L Albumin 1.9 L 2.3 L Globulin 2.50 3.00 Albumin/Globulin Ratio 0.76 0.76 Lipase 168 168 Segmented Neutrophils % (Manual) 94 H Lymphocytes % (Manual) 2 L Monocytes % (Manual) 2 Eosinophils % (Manual) 2 Absolute Lymphocytes (Manual) 0.6 L Absolute Monocytes (Manual) 0.6 Smudge Cells % 1 H Thrombocytosis 2 H Platelet Estimate DECREASED Polychromasia 2+ Poikilocytosis 1+ Anisocytosis 1+ Activated Partial Thromboplast Time 29.1 B-Type Natriuretic Peptide 27629 H Lab Scanned Report REFERENCE LAB Medications Medications Current Medications Morphine Sulfate (morphine) 2 mg Q4H PRN IV PAIN Last administered on 08:39; Admin Dose 2 MG; Start 09/15/16 at 23:30 Ondansetron HCl (Zofran Inj) 4 mg Q6H PRN IV NAUSEA AND/OR VOMITING Last administered on 09/26/16 09:23; Admin Dose 4 MG; Start 09/16/16 at 00:30 Acetaminophen (Tylenol Tab) 650 mg Q6H PRN PO PAIN LEVEL 1-3 OR FEVER Last administered on 09/30/16 01:22; Admin Dose 650 MG; Start 09/16/16 at 00:30 Polyethylene Glycol 17 gm 17 gm DAILY PO Last administered on 09/30/16 08:32; Admin Dose 17 GM; Start 09/20/16 at 11:00 Meropenem/Sodium Chloride 50 ml @ 200 mls/hr Q8 IVPB Last administered on 09/30 07:47; Admin Dose 200 MLS/HR; Start 09/20/16 at 22:00 Norepinephrine 16 mg/Dextrose 500 ml @ 1.87 mls/hr TITRATE IV Last administered on 09/29/16 13:22; Admin Dose 1.87 MLS/HR; Start 09/21/16 at 09:00 Propofol (Diprivan) 100 ml @ 1.671 mls/ hr Q12H IV Last administered on 06:00; Admin Dose 4.01 MLS/HR; Start 09/21/16 at 02:30 Acetaminophen/ Hydrocodone Bitart ([place] (5/325)) 1 tab Q4H PRN PO PAIN LEVEL 4 -7 Last administered on 09/28/16 21:20; Admin Dose 1 TAB; Start 09/21/16 at 15: 00 Acetaminophen/ Hydrocodone Bitart ([place] (5/325)) 2 tab Q4H PRN PO PAIN LEVEL 7 -10; Start 09/21/16 at 15:00 Hydromorphone HCl (Dilaudid) 0.5 mg Q2H PRN IV PAIN Last administered on 16:41; Admin Dose 0.5 MG; Start 09/21/16 at 15:00 Hydromorphone HCl (Dilaudid) 1 mg Q2H PRN IV PAIN Last administered on 09:31; Admin Dose 1 MG; Start 09/21/16 at 15:00 Docusate Sodium (Colace) 100 mg BID PRN PO CONSTIPATION; Start 09/21/16 at 15: 00 Enoxaparin Sodium (Lovenox) 40 mg DAILY SC ; Start 09/22/16 at 09:00; Status Future Hold Docusate Sodium (Colace Liquid Cup) 100 mg BID NGT Last administered on 08:32; Admin Dose 100 MG; Start 09/22/16 at 21:00 Pantoprazole (Protonix Iv) 40 mg DAILY@06 IV Last administered on 09/30/16 07: 46; Admin Dose 40 MG; Start 09/26/16 at 06:00 IV Flush 10 ml 10 ml PRN PRN IV IV PROTOCOL; Start 09/25/16 at 12:00 Potassium Chloride/Dextrose (D5W + KCl 20 Meq) 1,000 ml @ 75 mls/hr [id number] IV Last administered on 09/30/16 04:40; Admin Dose 75 MLS/HR; Start 09/27/16 at 18:00 Spironolactone 50 mg 50 mg DAILY NGT Last administered on 09/29/16 08:38; Admin Dose 50 MG; Start 09/28/16 at 09:00 Vancomycin HCl 250 ml @ 125 mls/hr Q24H IVPB Last administered on 09/30/16 07 :46; Admin Dose 125 MLS/HR; Start 09/30/16 at 06:00 Dopamine HCl/ Dextrose 250 ml @ 6.053 mls/ hr TITRATE IV Last administered on 09/30/16 04:46; Admin Dose 6.053 MLS/HR; Start 09/29/16 at 11:00 Phenylephrine HCl 40 mg/Dextrose 500 ml @ 75 mls/hr TITRATE IV ; Start at 14:00 Albumin Human 100 ml @ 100 mls/hr Q8H IV Last administered on 09/30/16 08:32 ; Admin Dose 100 MLS/HR; Start 09/30/16 at 08:30; Stop 10/01/16 at 01:29 Caspofungin 50 mg/ Sodium Chloride 250 ml @ 250 mls/hr Q24H IVPB ; Start at 12:00 Metronidazole (Flagyl 500 Mg (Pmx)) 100 ml @ 100 mls/hr Q8 IVPB ; Start at 14:00 GUSTAVO RAMON Sep 30, 2016 13:47
--- NOTE | 2016-09-30 13:54 | PN ---
Date/Time of Note Date/Time of Note DATE: 09/30/16 TIME: 13:40 Assessment/Plan Lines/Catheters IV Catheter Type (from Nrs): PICC Line Shore in Place (from Nrs): Yes Assessment/Plan Assessment/Plan [facility] Progress Note Date of Service: 09/30/2016 Place of service: [facility] ICU Today's Assessment & Plan: Overall remains critically ill, although improved with fluid bolus and PRBC transfusion yesterday. Sitll on low dose pressors. Remains intubated. Abdomen continues to remain soft and without obvious evidence of ongoing intra- abdominal infection, abscess or leak. Drainage from pelvic drain is serous. I do not suspect ongoing issues in the abdomen, and this is supported by yesterday 's noncontrast CT of the chest, abdomen and pelvis. I answered all the patient' s ex-'s questions to the best my ability and he appeared to agree with the plans. With above assessment, I recommended the following for today: 1. Continue aggressive medical management 2. Continue wound VAC; dressing change 3 times a week 3. Cont intubated state 4. Cont gentle diuresis per Dr. Sanchez's direction 5. Labs in am 6. Please maintain multidisciplinary discussion regarding fluid intake, CODE STATUS, and other major medical decisions since this is a fragile surgical patient with recent sepsis and shock 7. Targeted antimicrobial therapy to culture results Thank you again for your great care of this very pleasant patient and wonderful family. If there are any questions, please feel free to call me at [phone]. Nature of presenting problem: High severity Please note that, given the extensive number of diagnoses or management options , the extensive amount and/or complexity of data needed to be reviewed, and I risk of complications and/or morbidity or mortality, this qualifies as high complexity type of decision-making. Disclaimer: Inadvertent spelling and grammatical errors are likely due to EHR/ dictation software use and do not reflect on the quality of delivered patient care. Also, please note that the electronic time recorded on this node does not necessarily reflect the actual time of the visit. 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 S/p IR drainage 09/09/16 with removal of 20 cc pus and placement of a 10 Fr. pigtail catheter at [facility]. D/c home 09/12/16. Re-presented to [facility] ED 09/15/16 after being diverted from [facility] (due to internal disaster diversion) where CT was done showing adequate placement of the percutaneous drain near the sigmoid colon and decompressed sigmoid colon abscess, no obvious free air or significant spillage of stool in the abdominal cavity, and incidental finding of tail of the ENVIRONMENTAL HEALTH MANAGER shunt in the pelvis (new from right upper quadrant position of the same drain on the CT scan at [facility]). Transfer to [facility] 09/15/2016 for further cares. S/p upsizing of drain to 12 Fr pigtail on 09/17/16 (communication with colon demonstrated; no obvious free communication to rest of peritoneal space). Patient decompensated in the early hours of the morning on 09/21/2016 and had to be transferred to the intensive care unit with need for endotracheal tube intubation, central line placement, and resuscitation for treatment of shock with lactic acidosis and evidence of peritonitis and free air on the new chest, abdomen, and pelvis CT scan. S/p a rather challenging sigmoid colectomy with performance of end colostomy (Reid's procedure), takedown of splenic flexure of the colon, lysis of adhesions (60 minutes), and abdominal lavage at [facility] on 09/21/16; diagnosis of colon ischemia (distal transverse colon and descending colon) during reentry through recent laparotomy incision with exploration of abdominal cavity, takedown of colostomy, completion left hemicolectomy with resection of distal transverse colon, lysis of adhesions, abdominal lavage, performance of an end colostomy [facility] 09/24/16. Extubated post op evening of 09/25/16. Decompensation with intubation and restart of pressors . Comorbidities: 1. Perforated sigmoid colon (see below) 2. Status post ventriculoperitoneal shunt placement. 3. Status post prior hysterectomy and bilateral salpingo-oophorectomy through Pfannenstiel incision 4. S/p IR drainage 09/09/16 with removal of 20 cc pus and placement of a 10 Fr. pigtail catheter at [facility]. 5. Readmission to [facility] 09/15/16 with upsizing of drain to 12 Fr pigtail on (communication with colon demonstrated; no obvious free communication to rest of peritoneal space). Septic shock with multiorgan failure 09/21/2016 requiring ICU admission with intubation and pressors. 6. S/p a rather challenging sigmoid colectomy with performance of end colostomy (Reid's procedure), takedown of splenic flexure of the colon, lysis of adhesions (60 minutes), and abdominal lavage at [facility] on 09/21/16 7. Colon ischemia (distal transverse colon and descending colon) 8. S/p reentry through recent laparotomy incision with exploration of abdominal cavity, takedown of colostomy, completion left hemicolectomy with resection of distal transverse colon, lysis of adhesions, abdominal lavage, performance of an end colostomy [facility] 09/24/16 Subjective: No major events or complaints; BP improved after fluid and blood resuscitation; no obvious major abd pain and appears to be under control with medications; no observed or reported n/v/d; no observed or reported sob or cp; + bowel activity ; - activity; remains on a ventilator. Patient does open eyes but minimally communicative and therefore difficult to assess her symptoms subjectively. Objective: Vitals: See below I's & O's: See below Exam: GENERAL: On exam, the patient was lying in bed and appeared to be comfortable and in no acute distress. Intubated and on the ventilator. ABDOMEN: Soft, nontender and nondistended. Incision dressings are clean, dry and intact without any obvious evidence of underlying erythema, edema, discharge , or hernia. Surgical drain ss without any evidence of enteric contents. There are no peritoneal signs or guarding. Ostomy appears to be viable and productive with stool and air in the bag. SKIN: Skin appears to be pink and feels warm to touch. NEUROLOGIC: Patient is easily arousable to voice and follows very simple commands. Labs: See below Exam/Review of Systems Vital Signs Vitals Vital Signs Date Time Temp Pulse Resp B/P Pulse Ox O2 Delivery O2 Flow Rate FiO2 09/30/16 13:18 124 16 100 40 09/30/16 13:00 116/94 Mechanical Ventilator 09/30/16 11:00 97.8 09/27/16 09:00 6.0 Intake and Output 09/29/16 09/29/16 09/30/16 15:00 23:00 07:00 Intake Total 654.37 ml 2259.220 ml 412.21 ml Output Total 935 ml 450 ml 595 ml Balance -280.63 ml 1809.220 ml -182.79 ml Results Result Diagram: 09/30/16 0510 09/30/16 0510 ALEXSANDER DUARTE M.D. Sep 30, 2016 13:54
[2016-09-30] MEDS: metroNIDAZOLE 500 MG/NS (PMX) 100 ML IVPB SCH (14:44)
--- NOTE | 2016-09-30 15:47 | PN ---
Date/Time of Note Date/Time of Note DATE: 09/30/16 TIME: 15:30 Assessment/Plan VTE Prophylaxis VTE Prophylaxis Intervention: LMWH Lines/Catheters IV Catheter Type (from Nrs): PICC Line Central line still needed: Yes Urinary Cath still in place: Yes Reason Cath still needed: other (indicate) Assessment/Plan Assessment/Plan 1. 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 Severe sepsis with systemic shock and organ dysfunction, on vancomycin/ meropenem/flagyl/caspfungin 3. Respiratory failure-patient reintubated, follow up with pulmonology 4. Mild troponin elevation likely type 2 from sepsis, stable 5. Acute transaminitis 2/2 shock liver: resolved 6. History of intracranial hemorrhage in the past status post DRIVER OPERATOR shunt placement that has been stable over time * DRIVER OPERATOR shunt was externalized during the surgery September 21, 2016 due to abdominal infection, per neurosurgical notes may need to be reconnected once patient stable versus removed 7. Hypernatremia likely secondary to #1: improved 8. Severe coagulopathy also as a result of #1: improved 9. Iron deficiency hypochromic anemia on iron infusion therapy 10. Diffuse anasarca as well as bilateral pleural effusions likely associated hypoalbuminemia 11. Bilateral pneumonia with vascular congestion concerning for ARDS, on vent, follow up with pulmonology 12. Acute renal insufficiency, reolved 13. Thrombocytopenia, sepsis related, follow up with PLT 14. Pleural effusion, thoracentesis per pulmonology 15. DVT prophylaxis: lovenox 16. Critical care time: 45 minutes Exam/Review of Systems Vital Signs Vitals Vital Signs Date Time Temp Pulse Resp B/P Pulse Ox O2 Delivery O2 Flow Rate FiO2 09/30/16 15:14 97 16 100 40 09/30/16 13:00 116/94 Mechanical Ventilator 09/30/16 11:00 97.8 09/27/16 09:00 6.0 Intake and Output 09/29/16 09/29/16 09/30/16 15:00 23:00 07:00 Intake Total 654.37 ml 2259.220 ml 412.21 ml Output Total 935 ml 450 ml 595 ml Balance -280.63 ml 1809.220 ml -182.79 ml Exam Constitutional: alert, non-verbal, other (intubated) Head: atraumatic, normocephalic Eyes: PERRL, nl conjunctiva, nl lids ENMT: nl external ears & nose, nl lips & teeth, nl nasal mucosa & septum Neck: supple Respiratory: other (rhonchi) Cardiovascular: nl pulses, regular rate and rhythm, No S3, No S4, No bruits, No diastolic murmur, No edema, No gallop, No irregular rhythm, No jugular venous distention (JVD), No murmurs/extra sounds, No other, No rub, No systolic murmur Gastrointestinal: nl liver, spleen, surgical scars Musculoskeletal: nl extremities to inspection Extremities: edema, normal pulses, No clubbing, No cyanosis, No pitting pedal edema Neurological: confused, other (sedated but moves all extremities) Results Result Diagram: 09/30/16 0510 09/30/16 0510 Results 24 hrs Laboratory Tests Test 09/29/16 16:48 09/29/16 17:30 09/30/16 05:10 09/30/16 09:28 Blood Gas Specimen Source Blood arterial Arterial Blood Date Drawn 09/29/2016 5:40:47 PM Arterial Blood pH (Temp corrected) 7.527 H Arterial Blood pCO2 (Temp correct) 38.1 Arterial Blood pO2 (Temp corrected) 98.5 H Arterial Blood HCO3 30.9 H Arterial Blood Base Excess 7.6 H Arterial Blood Oxygen Saturation 97.1 Cain Test N/A Arterial Blood Gas Puncture Site Right Brachial Arterial Blood Carboxyhemoglobin 0.3 Arterial Blood Methemoglobin 0.7 Blood Gas A-a O2 Differential 142.9 H Oxyhemoglobin Percent 96.1 Total Hemoglobin 8.4 L Blood Gas Temperature 37.0 Blood Gas Respiration Rate 16.0 Blood Gas Actual Respiration Rate 16 Blood Gas Modality VENT - AC FiO2 40.0 Blood Gas Tidal Volume 550.0 Blood Gas Low PEEP Setting 5.0 Blood Gas Notified Kamilah RÍOS Blood Gas Notified Time 09/29/2016 5:52:24 PM White Blood Count 24.9 H 30.0 #H Red Blood Count 2.59 L 3.64 #L Hemoglobin 6.9 *L 9.8 #L Hematocrit 21.8 L 29.6 #L Mean Corpuscular Volume 84.2 81.3 L Mean Corpuscular Hemoglobin 26.6 L 26.9 L Mean Corpuscular Hemoglobin Concent 31.7 L 33.1 Red Cell Distribution Width 21.3 H 20.6 H Platelet Count 102 #L 126 #L Mean Platelet Volume 13.4 H Neutrophils % 87.0 H Lymphocytes % 6.0 L Eosinophils % 2.0 Nucleated Red Blood Cells % 0.2 H 1 H Neutrophils # 21.7 H Band Neutrophils # 21.7 H Lymphocytes # 1.5 Eosinophils # 0.5 Prothrombin Time 17.0 H 16.5 H Prothrombin Time Ratio 1.3 1.3 INR International Normalized Ratio 1.38 1.32 Sodium Level 144 144 Potassium Level 3.4 L 3.6 Chloride Level 98 100 Carbon Dioxide Level 35 H 33 H Anion Gap 14 15 Blood Urea Nitrogen 25 H 23 H Creatinine 0.61 0.74 Glucose Level 188 145 # Lactic Acid Level 2.4 *H 2.9 *H Calcium Level 7.1 L 7.3 L Phosphorus Level 2.4 L 2.6 Magnesium Level 1.8 2.2 Total Bilirubin 0.5 1.7 H Direct Bilirubin 0.10 1.10 #H Indirect Bilirubin 0.4 0.6 Aspartate Amino Transf (AST/SGOT) 24 26 Alanine Aminotransferase (ALT/SGPT) 37 37 Alkaline Phosphatase 104 138 H Total Protein 4.4 L 5.3 L Albumin 1.9 L 2.3 L Globulin 2.50 3.00 Albumin/Globulin Ratio 0.76 0.76 Lipase 168 168 Segmented Neutrophils % (Manual) 94 H Lymphocytes % (Manual) 2 L Monocytes % (Manual) 2 Eosinophils % (Manual) 2 Absolute Lymphocytes (Manual) 0.6 L Absolute Monocytes (Manual) 0.6 Smudge Cells % 1 H Thrombocytosis 2 H Platelet Estimate DECREASED Polychromasia 2+ Poikilocytosis 1+ Anisocytosis 1+ Activated Partial Thromboplast Time 29.1 B-Type Natriuretic Peptide 36628 H Lab Scanned Report REFERENCE LAB Medications Medications Current Medications Morphine Sulfate (morphine) 2 mg Q4H PRN IV PAIN Last administered on t 08:39; Admin Dose 2 MG; Start 09/15/16 at 23:30 Ondansetron HCl (Zofran Inj) 4 mg Q6H PRN IV NAUSEA AND/OR VOMITING Last administered on 09/26/16 09:23; Admin Dose 4 MG; Start 09/16/16 at 00:30 Acetaminophen (Tylenol Tab) 650 mg Q6H PRN PO PAIN LEVEL 1-3 OR FEVER Last administered on 09/30/16 01:22; Admin Dose 650 MG; Start 09/16/16 at 00:30 Polyethylene Glycol 17 gm 17 gm DAILY PO Last administered on 09/30/16 08:32; Admin Dose 17 GM; Start 09/20/16 at 11:00 Meropenem/Sodium Chloride 50 ml @ 200 mls/hr Q8 IVPB Last administered on 09/30 13:53; Admin Dose 200 MLS/HR; Start 09/20/16 at 22:00 Norepinephrine 16 mg/Dextrose 500 ml @ 1.87 mls/hr TITRATE IV Last administered on 09/29/16 13:22; Admin Dose 1.87 MLS/HR; Start 09/21/16 at 09:00 Propofol (Diprivan) 100 ml @ 1.671 mls/ hr Q12H IV Last administered on 06:00; Admin Dose 4.01 MLS/HR; Start 09/21/16 at 02:30 Acetaminophen/ Hydrocodone Bitart ([place] (5/325)) 1 tab Q4H PRN PO PAIN LEVEL 4 -7 Last administered on 09/28/16 21:20; Admin Dose 1 TAB; Start 09/21/16 at 15: 00 Acetaminophen/ Hydrocodone Bitart ([place] (5/325)) 2 tab Q4H PRN PO PAIN LEVEL 7 -10; Start 09/21/16 at 15:00 Hydromorphone HCl (Dilaudid) 0.5 mg Q2H PRN IV PAIN Last administered on 16:41; Admin Dose 0.5 MG; Start 09/21/16 at 15:00 Hydromorphone HCl (Dilaudid) 1 mg Q2H PRN IV PAIN Last administered on 09:31; Admin Dose 1 MG; Start 09/21/16 at 15:00 Docusate Sodium (Colace) 100 mg BID PRN PO CONSTIPATION; Start 09/21/16 at 15: 00 Enoxaparin Sodium (Lovenox) 40 mg DAILY SC ; Start 09/22/16 at 09:00; Status Future Hold Docusate Sodium (Colace Liquid Cup) 100 mg BID NGT Last administered on 08:32; Admin Dose 100 MG; Start 09/22/16 at 21:00 Pantoprazole (Protonix Iv) 40 mg DAILY@06 IV Last administered on 09/30/16 07: 46; Admin Dose 40 MG; Start 09/26/16 at 06:00 IV Flush 10 ml 10 ml PRN PRN IV IV PROTOCOL; Start 09/25/16 at 12:00 Potassium Chloride/Dextrose (D5W + KCl 20 Meq) 1,000 ml @ 75 mls/hr [id number] IV Last administered on 09/30/16 04:40; Admin Dose 75 MLS/HR; Start 09/27/16 at 18:00 Spironolactone 50 mg 50 mg DAILY NGT Last administered on 09/29/16 08:38; Admin Dose 50 MG; Start 09/28/16 at 09:00 Vancomycin HCl 250 ml @ 125 mls/hr Q24H IVPB Last administered on 09/30/16 07 :46; Admin Dose 125 MLS/HR; Start 09/30/16 at 06:00 Dopamine HCl/ Dextrose 250 ml @ 6.053 mls/ hr TITRATE IV Last administered on 09/30/16 04:46; Admin Dose 6.053 MLS/HR; Start 09/29/16 at 11:00 Phenylephrine HCl 40 mg/Dextrose 500 ml @ 75 mls/hr TITRATE IV ; Start at 14:00 Albumin Human 100 ml @ 100 mls/hr Q8H IV Last administered on 09/30/16 08:32 ; Admin Dose 100 MLS/HR; Start 09/30/16 at 08:30; Stop 10/01/16 at 01:29 Caspofungin 50 mg/ Sodium Chloride 250 ml @ 250 mls/hr Q24H IVPB ; Start at 12:00 Metronidazole (Flagyl 500 Mg (Pmx)) 100 ml @ 100 mls/hr Q8 IVPB Last administered on 09/30/16 14:44; Admin Dose 100 MLS/HR; Start 09/30/16 at 14:00 Furosemide (Lasix) 20 mg Q8 IV Last administered on 09/30/16t 14:56; Admin Dose 20 MG; Start 09/30/16 at 14:30 ANJANA MENDOZA MD Sep 30, 2016 15:41
[2016-09-30] MEDS ORDERED: LIDOCAINE 1% (MDV) 20 ML INJ ONE (17:28)
[2016-09-30] MEDS ORDERED: LIDOCAINE 1% (MDV) 20 ML INJ SC ONE (17:30)
--- NOTE | 2016-09-30 17:53 | RADRPT ---
PROCEDURE: US guided right thoracentesis. CLINICAL INDICATION: Shortness of breath. Right pleural effusion. TECHNIQUE: Prior to the procedure, informed consent was obtained. The risks, benefits, and alternatives were e xplained to the patient or the patient's family, including but not limited to bleeding, infection, p ain, visceral or vascular damage, shock, pneumothorax, chest tube placement, air embolism, and . The patient or the patient's family understood the risks and the alternatives and wished to proce ed with the study. Informed written consent was obtained. A procedural pause was performed. The patient's name, date of , and procedure to be performed were verified. Ultrasound of the right hemithorax was performed in the axial and sagittal planes. A right pleural e ffusion is noted. Utilizing ultrasound guidance, optimal location for entry to the pleural cavity wa s ascertained. The overlying skin was prepped and draped in the usual sterile fashion. Approximate ly 10 ml of 1% Xylocaine was injected locally for pain control. Using ultrasound guidance, a 5-Fren Yueh catheter was introduced into the right pleural space without difficulty. Fluid was aspirated . COMPARISON: None. FINDINGS: Initial ultrasound demonstrates fluid in the right pleural space. Approximately 0.700 liters of ser ous fluid was aspirated and sent to the laboratory. IMPRESSION: 1. Satisfactory ultrasound-guided right thoracentesis. RPTAT: QQ .Beto Cortes MD, Date Time Electronically viewed and signed by .Beto Cortes MD, on 09/30/2016 17:53 .R/
[2016-09-30] MEDS ORDERED: LIDOCAINE 1% (MPF) 5 ML VIAL ONE (17:58)
--- NOTE | 2016-09-30 18:17 | RADRPT ---
PROCEDURE: XR Chest. CLINICAL INDICATION: Shortness of breath. Post right thoracentesis. TECHNIQUE: Single frontal view. COMPARISON: 09/29/2016. FINDINGS: There is a new large right pneumothorax measuring approximately 70%. There is no left pneumothorax. Bilateral pulmonary air space disease is unchanged. The heart is enlarged. The endotracheal tube and nasogastric tube remain in satisfactory position. The right arm PICC line is in satisfactory p osition. The right subclavian vein catheter tip is in the right internal jugular vein as seen previ ously. IMPRESSION: 1. Large right pneumothorax following right thoracentesis. I will arrange to insert a right chest tube. 2. No other change from the prior study dated 09/29/2016. RPTAT: QQ .Beto Cortes MD, Date Time Electronically viewed and signed by .Beto Cortes MD, on 09/30/2016 18:16 .R/
[2016-09-30 18:22] LABS: FLUID TYPE THORACENTESIS
[2016-09-30 18:23] LABS: FLUID TOTAL PROTEIN < 2.0 g/dl; FLUID TYPE THORACENTESIS
[2016-09-30 18:24] LABS: FLUID GLUCOSE 135 mg/dl
[2016-09-30 18:25] LABS: FLUID LD 684 U/L
[2016-09-30 18:47] LABS: FLD CLARITY SLIGHTLY CLOUDY; FLD COLOR YELLOW; FLD MN % (M) 16 %; FLD PMN % (M) 84 %; FLD RBC 0 /uL; FLD TYPE THORACENTHESIS; FLD WBC 339000 /cmm
--- NOTE | 2016-09-30 19:10 | RADRPT ---
PROCEDURE: Fluoroscopic guided placement of right chest tube. CLINICAL INDICATION: Right pneumothorax. Post right thoracentesis. Shortness of breath. TECHNIQUE: The patient is intubated and unable to give consent. No family member was available for consent. T he procedure was an emergency due to probable tension pneumothorax and increased pressures required for the ventilator. A procedural pause was performed. The patient's name, date of , and procedure to be performed w ere verified. The right lateral chest wall was prepped and draped in usual sterile fashion. Following the local injection of 1% lidocaine, a 19-gauge Yueh needle was advanced into the right pl eural space in the mid axillary line at the 8/9 interspace with x-ray guidance. The Yueh metal needl e was removed leaving the plastic outer cannula in position. A 0.035 inch guidewire was advanced in to the right pleural space through the plastic cannula with fluoroscopic guidance. The plastic jake jaclyn was removed. The tract was dilated to 8-[place]. An 8.5 [place] multipurpose drainage catheter w as then advanced over the guide wire. The guidewire was removed. Follow-up x-ray guidance demonstr ates the catheter in satisfactory position within the right pleural space laterally. The catheter w as sutured to the patient's skin with 2-0 monofilament. A dressing was applied. The patient tolerated procedure well. A Pleur-Evac system was attached to t he end of the chest tube. COMPARISON: Chest x-ray done earlier the same day. FINDINGS: Final images demonstrate the tip of the catheter in the lateral right pleural space. The chest x-ra y demonstrates near complete resolution of the right pneumothorax with a residual right apical pneum othorax measuring approximately 5%. IMPRESSION: 1. Successful x-ray guided placement of right chest tube. RPTAT: QQ .Beto Cortes MD, MD Date Time Electronically viewed and signed by .Beto Cortes MD, on 09/30/2016 19:10 .R/
[2016-10-01] VITALS (98 sets, daily range): BP systolic 83–129; BP diastolic 46–85; PULSE 51–117; RESP 14–56
[2016-10-01] MEDS: ALBUMIN HUMAN 25% 100 ML IV SCH (00:30)
[2016-10-01] MEDS: metroNIDAZOLE 500 MG/NS (PMX) 100 ML IVPB SCH ×4 (04:04→22:14)
[2016-10-01] MEDS: D5W + KCL 20 MEQ 1,000 ML IV SCH (05:00)
[2016-10-01 05:21] LABS: ABNORMAL IP MESSAGE 1; BASOPHILS % 0.2 % (0.0-2.0); EOSINOPHILS # 0.1 10^3/ul (0.0-0.5); EOSINOPHILS % 0.6 % (0.0-7.0); HEMATOCRIT 21.6 % (37.0-47.0); HEMOGLOBIN 7.2 g/dl (12.0-16.0); LYMPHOCYTES # 0.5 10^3/ul (0.8-2.9); LYMPHOCYTES % 2.4 % (15.0-51.0); MEAN CORPUSCULAR HEMOGLOBIN 27.6 pg (29.0-33.0); MEAN CORPUSCULAR HGB CONC 33.3 g/dl (32.0-37.0); MEAN CORPUSCULAR VOLUME 82.8 fl (82.0-101.0); MONOCYTE # 0.3 10^3/ul (0.3-0.9); MONOCYTES % 1.7 % (0.0-11.0); NEUTROPHIL # 18.3 10^3/ul (1.6-7.5); RED BLOOD COUNT 2.61 10^6/ul (4.20-5.40); WHITE BLOOD COUNT 19.4 10^3/ul (4.8-10.8)
[2016-10-01 05:31] LABS: NEUTROPHILS % 94.1 % (39.0-77.0); PLATELET COUNT 91 10^3/UL (140-415); POSITIVE DIFF @See below
[2016-10-01] MEDS: FUROSEMIDE 20 MG INJ IV SCH (06:00)
[2016-10-01 06:14] LABS: CALCIUM 7.5 mg/dl (8.4-10.2); CREATININE 0.78 mg/dl (0.44-1.00); PHOSPHORUS 3.4 mg/dl (2.5-4.9); POTASSIUM 3.1 mmol/L (3.5-5.1)
[2016-10-01] MEDS: VANCOMYCIN 1 GM in NS 250 ML IVPB SCH (06:46)
[2016-10-01] MEDS: PANTOPRAZOLE 40 MG INJ IV SCH (06:46)
[2016-10-01] MEDS: MEROPENEM 500MG/50 ML (PMX) 50 ML IVPB SCH ×3 (06:47→22:14)
--- NOTE | 2016-10-01 08:16 | PN ---
Date/Time of Note Date/Time of Note DATE: 10/01/16 TIME: 08:13 Assessment/Plan VTE Prophylaxis VTE Prophylaxis Intervention: other Lines/Catheters IV Catheter Type (from Nrsg): PICC Line Central line still needed: Yes Urinary Cath still in place: Yes Reason Cath still needed: other (indicate) Assessment/Plan Chief Complaint/Hosp Course Nonoliguric acute kidney injury. Etiology secondary ATN -Renal function has been improving with supportive care continue current treatment plan renally dose meds avoid nephrotoxins Hypernatremia Improved Continue free water flushes, continue D5 water Monitor serial sodium levels Hypokalemia secondary to diuretics Replete potassium chloride Start Aldactone 50 mg daily Monitor closely Volume overload/anasarca -Resuming her diuretic therapy increase Lasix to 40 IV q. 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 -Continue treatment plan -Follow-up with surgery Respiratory failure Patient reintubated Chest x-ray ABG reviewed Follow-up with pulmonary History of intracranial hemorrhage in the past status post PRIVACY OFFICER shunt placement that has been stable over time -PRIVACY OFFICER shunt was externalized during the surgery September 21, 2016 due to abdominal infection, per neurosurgical notes may need to be reconnected once patient stable versus removed Problems: Subjective 24 Hr Interval Summary Free Text/Dictation Patient seen and examined Remains on pressor support with being weaned off Urinary output has been adequate No other events noted Patient remains critically ill on ventilatory support Exam/Review of Systems Vital Signs Vitals Vital Signs Date Time Temp Pulse Resp B/P Pulse Ox O2 Delivery O2 Flow Rate FiO2 10/01/16 06:00 105 16 104/66 100 Mechanical Ventilator 10/01/16 05:16 40 10/01/16 04:00 98.3 09/27/16 09:00 6.0 Intake and Output 09/30/16 09/30/16 10/01/16 15:00 23:00 07:00 Intake Total 1352.68 ml 1399.402 ml 1796.86 ml Output Total 1145 ml 825 ml 793 ml Balance 207.68 ml 574.402 ml 1003.86 ml Exam HEENT: Head is normocephalic, NECK: Supple. HEART: regular LUNGS: Show diminished breath sounds at base. ABDOMEN: Soft, nontender to palpation without rebound or guarding., Positive colostomy EXTREMITIES: Negative for clubbing, cyanosis. Positive edema anasarca DERMATOLOGIC: No rashes. MUSCULOSKELETAL: No joint effusions, NEUROLOGIC: No change in exam. Results Result Diagram: 10/01/16 0400 10/01/16 0400 Results 24 hrs Laboratory Tests Test 09/30/16 09:28 09/30/16 17:30 10/01/16 04:00 10/01/16 05:20 Lab Scanned Report REFERENCE LAB BLOOD TRANSFUSION Body Fluid Type THORACENTESIS Body Fluid Volume 650.0 Body Fluid Color YELLOW Body Fluid Appearance SLIGHTLY CLOUDY Body Fluid WBC 385956 Body Fluid RBC (Auto) 0 Body Fluid Polynuclear WBCs 84 Body Fluid Polynuclear WBCs (%) 84.0 Body Fluid Mononuclear WBCs 16 Body Fluid Mononuclear Cells % Auto 16.0 Body Fluid Glucose 135 Body Fluid Total Protein < 2.0 Body Fluid Lactate Dehydrogenase 684 White Blood Count 19.4 #H Red Blood Count 2.61 #L Hemoglobin 7.2 #L Hematocrit 21.6 #L Mean Corpuscular Volume 82.8 Mean Corpuscular Hemoglobin 27.6 L Mean Corpuscular Hemoglobin Concent 33.3 Red Cell Distribution Width 21.0 H Platelet Count 91 #L Mean Platelet Volume Neutrophils % 94.1 H Lymphocytes % 2.4 L Monocytes % 1.7 Eosinophils % 0.6 Basophils % 0.2 Nucleated Red Blood Cells % 0.0 Neutrophils # 18.3 H Lymphocytes # 0.5 L Monocytes # 0.3 Eosinophils # 0.1 Basophils # 0.0 Nucleated Red Blood Cells # 0.0 Sodium Level 142 Potassium Level 3.1 L Chloride Level 97 Carbon Dioxide Level 32 H Anion Gap 16 Blood Urea Nitrogen 21 H Creatinine 0.78 Glucose Level 152 Calcium Level 7.5 L Phosphorus Level 3.4 Magnesium Level 2.0 Medications Medications Current Medications Morphine Sulfate (morphine) 2 mg Q4H PRN IV PAIN Last administered on t 08:39; Admin Dose 2 MG; Start 09/15/16 at 23:30 Ondansetron HCl (Zofran Inj) 4 mg Q6H PRN IV NAUSEA AND/OR VOMITING Last administered on 09/26/16 09:23; Admin Dose 4 MG; Start 09/16/16 at 00:30 Acetaminophen (Tylenol Tab) 650 mg Q6H PRN PO PAIN LEVEL 1-3 OR FEVER Last administered on 09/30/16 01:22; Admin Dose 650 MG; Start 09/16/16 at 00:30 Polyethylene Glycol 17 gm 17 gm DAILY PO Last administered on 09/30/16 08:32; Admin Dose 17 GM; Start 09/20/16 at 11:00 Meropenem/Sodium Chloride 50 ml @ 200 mls/hr Q8 IVPB Last administered on 10/01 06:47; Admin Dose 200 MLS/HR; Start 09/20/16 at 22:00 Norepinephrine 16 mg/Dextrose 500 ml @ 1.87 mls/hr TITRATE IV Last administered on 09/29/16 13:22; Admin Dose 1.87 MLS/HR; Start 09/21/16 at 09:00 Propofol (Diprivan) 100 ml @ 1.671 mls/ hr Q12H IV Last administered on 20:00; Admin Dose 5.003 MLS/HR; Start 09/21/16 at 02:30 Acetaminophen/ Hydrocodone Bitart ([place] (5/325)) 1 tab Q4H PRN PO PAIN LEVEL 4 -7 Last administered on 09/28/16 21:20; Admin Dose 1 TAB; Start 09/21/16 at 15: 00 Acetaminophen/ Hydrocodone Bitart ([place] (5/325)) 2 tab Q4H PRN PO PAIN LEVEL 7 -10; Start 09/21/16 at 15:00 Hydromorphone HCl (Dilaudid) 0.5 mg Q2H PRN IV PAIN Last administered on 16:41; Admin Dose 0.5 MG; Start 09/21/16 at 15:00 Hydromorphone HCl (Dilaudid) 1 mg Q2H PRN IV PAIN Last administered on 09:31; Admin Dose 1 MG; Start 09/21/16 at 15:00 Docusate Sodium (Colace) 100 mg BID PRN PO CONSTIPATION; Start 09/21/16 at 15: 00 Enoxaparin Sodium (Lovenox) 40 mg DAILY SC ; Start 09/22/16 at 09:00; Status Future Hold Docusate Sodium (Colace Liquid Cup) 100 mg BID NGT Last administered on 21:00; Admin Dose 100 MG; Start 09/22/16 at 21:00 Pantoprazole (Protonix Iv) 40 mg DAILY@06 IV Last administered on 10/01/16 06: 46; Admin Dose 40 MG; Start 09/26/16 at 06:00 IV Flush 10 ml 10 ml PRN PRN IV IV PROTOCOL; Start 09/25/16 at 12:00 Potassium Chloride/Dextrose (D5W + KCl 20 Meq) 1,000 ml @ 40 mls/hr Q24H IV Last administered on 10/01/16 05:00; Admin Dose 75 MLS/HR; Start 09/27/16 at 18 :00 Spironolactone 50 mg 50 mg DAILY NGT Last administered on 09/29/16 08:38; Admin Dose 50 MG; Start 09/28/16 at 09:00 Vancomycin HCl 250 ml @ 125 mls/hr Q24H IVPB Last administered on 10/01/16 06 :46; Admin Dose 125 MLS/HR; Start 09/30/16 at 06:00 Dopamine HCl/ Dextrose 250 ml @ 6.053 mls/ hr TITRATE IV Last administered on 09/30/16 04:46; Admin Dose 6.053 MLS/HR; Start 09/29/16 at 11:00 Phenylephrine HCl 40 mg/Dextrose 500 ml @ 75 mls/hr TITRATE IV ; Start at 14:00 Caspofungin 50 mg/ Sodium Chloride 250 ml @ 250 mls/hr Q24H IVPB ; Start at 12:00 Metronidazole (Flagyl 500 Mg (Pmx)) 100 ml @ 100 mls/hr Q8 IVPB Last administered on 10/01/16 06:46; Admin Dose 100 MLS/HR; Start 09/30/16 at 14:00 Furosemide (Lasix) 20 mg Q8 IV Last administered on 09/30/16 22:00; Admin Dose 20 MG; Start 09/30/16 at 14:30 Metolazone (Zaroxolyn) 5 mg ONCE ONCE PO ; Start 10/01/16 at 08:30; Stop at 08:31; Status KIRAN BROUSSARD DO Oct 01, 2016 08:16
[2016-10-01] MEDS ORDERED: POTASSIUM CHLORIDE 20 MEQ POWDER FOR ORAL SOLN NGT ONE ×2 (08:30→16:00)
[2016-10-01] MEDS ORDERED: METOLAZONE 5 MG TAB PO ONE (08:30)
[2016-10-01] MEDS: HYDROmorphONE 1 MG/ML SYG IV PRN (09:12)
[2016-10-01] MEDS: DOCUSATE SODIUM 10 MG/ML (10ML CUP) NGT SCH ×2 (09:13→22:12)
[2016-10-01] MEDS: POLYETHYLENE GLYCOL 17 GM PACKET PO SCH (09:13)
[2016-10-01] MEDS: PROPOFOL 100 ML IV SCH ×3 (09:13→19:13)
[2016-10-01] MEDS: SPIRONOLACTONE 50 MG TAB NGT SCH (09:14)
--- NOTE | 2016-10-01 09:34 | PN ---
Date/Time of Note Date/Time of Note DATE: 10/01/16 TIME: 09:25 Assessment/Plan Lines/Catheters IV Catheter Type (from [facility]): PICC Line Shore in Place (from [facility]): Yes Assessment/Plan Assessment/Plan [facility] Progress Note Date of Service: 10/01/2016 Place of service: [facility] ICU Today's Assessment & Plan: Overall remains critically ill, but remarkably holding her own. Yesterday his pneumothorax seems to have been controlled with placement of the chest tube. I agree with Dr. Viramontes's plans to drain the left sided pleural effusion to maximize her chances of being able to wean off the ventilator. Abdomen continues to remain benign. Drain output remains serous and the patient does not demonstrate clinical signs of peritonitis. There is a question of whether the patient's ex- is officially able to assistance with decision making for the patient. When my prior knowledge of the patient and her ex-, I am very confident that the patient's ex- holds her best interest in mind and has been instrumental in taking care of the patient. Patient herself is anxious and perhaps somewhat depressed at baseline. She is also currently under extreme duress, in addition to being affected by medications. I do not believe that the patient herself can make appropriate decisions for her care. I did attempt to asked the patient about this issue directly, but I did not get a sense that the patient was answering me in an informed way and it was unclear whether she was saying yes or no. From my understanding, her family all lives outside of the country and she does not have good other support structures. In order to officially address this problem, I am recommending that we involve the ethics committee to review the facts and to assist us with resolving the issue. With above assessment, I recommended the following for today: 1. Continue aggressive medical management 2. Continue wound VAC; dressing change 3 times a week 3. Cont intubated state and wean per pulmonary critical care recommendations 4. Cont gentle diuresis per Dr. Sanchez's direction 5. Labs in am 6. Please maintain multidisciplinary discussion regarding fluid intake, CODE STATUS, and other major medical decisions since this is a fragile surgical patient with recent sepsis and shock 7. Targeted antimicrobial therapy to culture results 8. Agree with drainage of left-sided pleural effusion Thank you again for your great care of this very pleasant patient and wonderful family. If there are any questions, please feel free to call me at [phone]. Nature of presenting problem: High severity Please note that, given the extensive number of diagnoses or management options , the extensive amount and/or complexity of data needed to be reviewed, and I risk of complications and/or morbidity or mortality, this qualifies as high complexity type of decision-making. Disclaimer: Inadvertent spelling and grammatical errors are likely due to EHR/ dictation software use and do not reflect on the quality of delivered patient care. Also, please note that the electronic time recorded on this node does not necessarily reflect the actual time of the visit. 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 S/p IR drainage 09/09/16 with removal of 20 cc pus and placement of a 10 Fr. pigtail catheter at [facility]. D/c home 09/12/16. Re-presented to [place] ED 09/15/16 after being diverted from [facility] (due to internal disaster diversion) where CT was done showing adequate placement of the percutaneous drain near the sigmoid colon and decompressed sigmoid colon abscess, no obvious free air or significant spillage of stool in the abdominal cavity, and incidental finding of tail of the ASSOCIATE ACCOUNT DIRECTOR shunt in the pelvis (new from right upper quadrant position of the same drain on the CT scan at [facility]). Transfer to [facility] 09/15/2016 for further cares. S/p upsizing of drain to 12 Fr pigtail on 09/17/16 (communication with colon demonstrated; no obvious free communication to rest of peritoneal space). Patient decompensated in the early hours of the morning on 09/21/2016 and had to be transferred to the intensive care unit with need for endotracheal tube intubation, central line placement, and resuscitation for treatment of shock with lactic acidosis and evidence of peritonitis and free air on the new chest, abdomen, and pelvis CT scan. S/p a rather challenging sigmoid colectomy with performance of end colostomy (Reid's procedure), takedown of splenic flexure of the colon, lysis of adhesions (60 minutes), and abdominal lavage at [facility] on 09/21/16; diagnosis of colon ischemia (distal transverse colon and descending colon) during reentry through recent laparotomy incision with exploration of abdominal cavity, takedown of colostomy, completion left hemicolectomy with resection of distal transverse colon, lysis of adhesions, abdominal lavage, performance of an end colostomy [facility] 09/24/16. Extubated post op evening of 09/25/16. Decompensation with intubation and restart of pressors . Right-sided pneumothorax after drainage of right pleural effusion requiring chest tube placement 09/30/2016. Comorbidities: 1. Perforated sigmoid colon (see below) 2. Status post ventriculoperitoneal shunt placement. 3. Status post prior hysterectomy and bilateral salpingo-oophorectomy through Pfannenstiel incision 4. S/p IR drainage 09/09/16 with removal of 20 cc pus and placement of a 10 Fr. pigtail catheter at [facility]. 5. [address]mission [address] [facility] 09/15/16 with upsizing of drain to 12 Fr pigtail on (communication with colon demonstrated; no obvious free communication to rest of peritoneal space). Septic shock with multiorgan failure 09/21/2016 requiring ICU admission with intubation and pressors. 6. S/p a rather challenging sigmoid colectomy with performance of end colostomy (Reid's procedure), takedown of splenic flexure of the colon, lysis of adhesions (60 minutes), and abdominal lavage at [facility] on 09/21/16 7. Colon ischemia (distal transverse colon and descending colon) 8. S/p reentry through recent laparotomy incision with exploration of abdominal cavity, takedown of colostomy, completion left hemicolectomy with resection of distal transverse colon, lysis of adhesions, abdominal lavage, performance of an end colostomy [facility] 09/24/16 Subjective: Right-sided pneumothorax requiring chest tube placement yesterday as above; no obvious major abd pain and appears to be under control with medications; no observed or reported n/v/d; no observed or reported sob or cp; + bowel activity ; - activity; remains on a ventilator. Patient does open eyes but minimally communicative and therefore difficult to assess her symptoms subjectively. Objective: Vitals: See below I's & O's: See below Exam: GENERAL: On exam, the patient was lying in bed and appeared to be comfortable and in no acute distress. Intubated and on the ventilator. ABDOMEN: Soft, nontender and nondistended. Incision dressings are clean, dry and intact without any obvious evidence of underlying erythema, edema, discharge , or hernia. Surgical drain ss without any evidence of enteric contents. There are no peritoneal signs or guarding. Ostomy appears to be viable and productive with stool and air in the bag. SKIN: Skin appears to be pink and feels warm to touch. NEUROLOGIC: Patient is easily arousable to voice and follows very simple commands. Labs: See below Exam/Review of Systems Vital Signs Vitals Vital Signs Date Time Temp Pulse Resp B/P Pulse Ox O2 Delivery O2 Flow Rate FiO2 10/01/16 08:30 58 21 96/55 100 Mechanical Ventilator 10/01/16 08:00 97.9 10/01/16 05:16 40 09/27/16 09:00 6.0 Intake and Output 09/30/16 09/30/16 10/01/16 15:00 23:00 07:00 Intake Total 1352.68 ml 1399.402 ml 1856.86 ml Output Total 1145 ml 825 ml 993 ml Balance 207.68 ml 574.402 ml 863.86 ml Results Result Diagram: 10/01/16 0400 10/01/16399 ALEXSANDER DUARTE M.D. Oct 01, 2016 09:34
--- NOTE | 2016-10-01 09:49 | RADRPT ---
PROCEDURE: XR Chest. CLINICAL INDICATION: pna chf TECHNIQUE: PA and Lateral views of the chest were obtained. COMPARISON: Chest x-ray 09/30/2016 FINDINGS: The right pleural pigtail catheter is stable position. No definite residual pneumothorax is identifi ed. The endotracheal tube , nasogastric tube and right PICC line are also stable in positions. The cardiac silhouette is mildly enlarged. There are atherosclerotic calcifications of the aortic arch. Patchy airspace opacities scattered throughout the left lung and in the mid and upper right lung are stable. Mild pulmonary vascular congestion is stable. No significant pleural effusion. There are degenerative changes of the visualized spine. IMPRESSION: 1. Stable position of the right pleural pigtail catheter with no radiographic evidence of residual p neumothorax. 2. Patchy airspace opacities scattered throughout the left lung and in the mid and upper right lung are stable. 3. Mild cardiomegaly and mild pulmonary vascular congestion, unchanged. RPTAT: PP Physician Chato Date Time Electronically viewed and signed by Physician Chato on 10/01/2016 09:49 SEAN/
[2016-10-01] MEDS: FENTAnyl (DRIP) 1000 mcg/100mL 100 ML IV SCH (10:07)
--- NOTE | 2016-10-01 11:08 | CONS ---
Date/Time of Note Date/Time of Note DATE: 10/01/16 TIME: 11:06 Consult Date/Type/Reason Admit Date/Time Sep 15, 2016 at 21:35 Initial Consult Date 09/21/16 Type of Consultation: Pulmonary Subjective Patient stable this morning. Events of yesterday noted. Tension pneumothorax following right-sided thoracentesis. Chest tube was placed with reexpansion of the lung and stabilization of patient. This morning she is somewhat more alert. Continues mechanical ventilation appears to be in mild distress. Objective Vital Signs Date Time Temp Pulse Resp B/P Pulse Ox O2 Delivery O2 Flow Rate FiO2 10/01/16 10:45 55 56 92/53 100 Mechanical Ventilator 10/01/16 08:00 97.9 10/01/16 05:16 40 09/27/16 09:00 6.0 Intake and Output 09/30/16 09/30/16 10/01/16 15:00 23:00 07:00 Intake Total 1352.68 ml 1399.402 ml 1856.86 ml Output Total 1145 ml 825 ml 993 ml Balance 207.68 ml 574.402 ml 863.86 ml Exam PHYSICAL EXAMINATION GENERAL: Chronically ill-appearing lady intubated on mechanical ventilation appears comfortable at rest VITAL SIGNS: see below. HEENT: Pupils equal, round, and reactive to light. CARDIAC: S1, S2, 1/6 systolic ejection murmur CHEST: Diminished air entry bilaterally. Chest tube placed in left lung. ABDOMEN: Mildly distended. Bowel sounds present no guarding or rebound EXTREMITIES: No cyanosis, clubbing edema +1 NEUROLOGIC: Generalized weakness Results/Medications Result Diagram: 10/01/16 0400 10/01/16 0400 Results 24 hrs Laboratory Tests Test 09/30/16 17:30 10/01/16 04:00 10/01/16 05:20 Body Fluid Type THORACENTESIS Body Fluid Volume 650.0 Body Fluid Color YELLOW Body Fluid Appearance SLIGHTLY CLOUDY Body Fluid WBC 878591 Body Fluid RBC (Auto) 0 Body Fluid Polynuclear WBCs 84 Body Fluid Polynuclear WBCs (%) 84.0 Body Fluid Mononuclear WBCs 16 Body Fluid Mononuclear Cells % Auto 16.0 Body Fluid Glucose 135 Body Fluid Total Protein < 2.0 Body Fluid Lactate Dehydrogenase 684 White Blood Count 19.4 #H Red Blood Count 2.61 #L Hemoglobin 7.2 #L Hematocrit 21.6 #L Mean Corpuscular Volume 82.8 Mean Corpuscular Hemoglobin 27.6 L Mean Corpuscular Hemoglobin Concent 33.3 Red Cell Distribution Width 21.0 H Platelet Count 91 #L Mean Platelet Volume Neutrophils % 94.1 H Lymphocytes % 2.4 L Monocytes % 1.7 Eosinophils % 0.6 Basophils % 0.2 Nucleated Red Blood Cells % 0.0 Neutrophils # 18.3 H Lymphocytes # 0.5 L Monocytes # 0.3 Eosinophils # 0.1 Basophils # 0.0 Nucleated Red Blood Cells # 0.0 Sodium Level 142 Potassium Level 3.1 L Chloride Level 97 Carbon Dioxide Level 32 H Anion Gap 16 Blood Urea Nitrogen 21 H Creatinine 0.78 Glucose Level 152 Calcium Level 7.5 L Phosphorus Level 3.4 Magnesium Level 2.0 Lab Scanned Report BLOOD TRANSFUSION Medications Current Medications Morphine Sulfate (morphine) 2 mg Q4H PRN IV PAIN Last administered on 08:39; Admin Dose 2 MG; Start 09/15/16 at 23:30 Ondansetron HCl (Zofran Inj) 4 mg Q6H PRN IV NAUSEA AND/OR VOMITING Last administered on 09/26/16 09:23; Admin Dose 4 MG; Start 09/16/16 at 00:30 Acetaminophen (Tylenol Tab) 650 mg Q6H PRN PO PAIN LEVEL 1-3 OR FEVER Last administered on 09/30/16 01:22; Admin Dose 650 MG; Start 09/16/16 at 00:30 Polyethylene Glycol 17 gm 17 gm DAILY PO Last administered on 10/01/16 09:13; Admin Dose 17 GM; Start 09/20/16 at 11:00 Meropenem/Sodium Chloride 50 ml @ 200 mls/hr Q8 IVPB Last administered on 10/01 06:47; Admin Dose 200 MLS/HR; Start 09/20/16 at 22:00 Norepinephrine 16 mg/Dextrose 500 ml @ 1.87 mls/hr TITRATE IV Last administered on 09/29/16 13:22; Admin Dose 1.87 MLS/HR; Start 09/21/16 at 09:00 Propofol (Diprivan) 100 ml @ 1.671 mls/ hr Q12H IV Last administered on 09:13; Admin Dose 5.013 MLS/HR; Start 09/21/16 at 02:30 Acetaminophen/ Hydrocodone Bitart ([place] (5/325)) 1 tab Q4H PRN PO PAIN LEVEL 4 -7 Last administered on 09/28/16 21:20; Admin Dose 1 TAB; Start 09/21/16 at 15: 00 Acetaminophen/ Hydrocodone Bitart ([place] (5/325)) 2 tab Q4H PRN PO PAIN LEVEL 7 -10; Start 09/21/16 at 15:00 Hydromorphone HCl (Dilaudid) 0.5 mg Q2H PRN IV PAIN Last administered on 16:41; Admin Dose 0.5 MG; Start 09/21/16 at 15:00 Hydromorphone HCl (Dilaudid) 1 mg Q2H PRN IV PAIN Last administered on 09:12; Admin Dose 1 MG; Start 09/21/16 at 15:00 Docusate Sodium (Colace) 100 mg BID PRN PO CONSTIPATION; Start 09/21/16 at 15: 00 Enoxaparin Sodium (Lovenox) 40 mg DAILY SC ; Start 09/22/16 at 09:00; Status Future Hold Docusate Sodium (Colace Liquid Cup) 100 mg BID NGT Last administered on 09:13; Admin Dose 100 MG; Start 09/22/16 at 21:00 Pantoprazole (Protonix Iv) 40 mg DAILY@06 IV Last administered on 10/01/16 06: 46; Admin Dose 40 MG; Start 09/26/16 at 06:00 IV Flush 10 ml 10 ml PRN PRN IV IV PROTOCOL; Start 09/25/16 at 12:00 Potassium Chloride/Dextrose (D5W + KCl 20 Meq) 1,000 ml @ 40 mls/hr Q24H IV Last administered on 10/01/16 05:00; Admin Dose 75 MLS/HR; Start 09/27/16 at 18 :00 Spironolactone 50 mg 50 mg DAILY NGT Last administered on 10/01/16 09:14; Admin Dose 50 MG; Start 09/28/16 at 09:00 Vancomycin HCl 250 ml @ 125 mls/hr Q24H IVPB Last administered on 10/01/16 06 :46; Admin Dose 125 MLS/HR; Start 09/30/16 at 06:00 Dopamine HCl/ Dextrose 250 ml @ 6.053 mls/ hr TITRATE IV Last administered on 09/30/16 04:46; Admin Dose 6.053 MLS/HR; Start 09/29/16 at 11:00 Phenylephrine HCl 40 mg/Dextrose 500 ml @ 75 mls/hr TITRATE IV ; Start at 14:00 Caspofungin 50 mg/ Sodium Chloride 250 ml @ 250 mls/hr Q24H IVPB ; Start at 12:00 Metronidazole (Flagyl 500 Mg (Pmx)) 100 ml @ 100 mls/hr Q8 IVPB Last administered on 10/01/16 06:46; Admin Dose 100 MLS/HR; Start 09/30/16 at 14:00 Furosemide 40 mg 40 mg Q8 IV ; Start 10/01/16 at 14:00 Fentanyl (Sublimaze) 100 ml @ 2.5 mls/hr TITRATE IV Last administered on 10:07; Admin Dose 2.5 MLS/HR; Start 10/01/16 at 09:30 Assessment/Plan Chief Complaint/Hosp Course Assessment 1. Severe sepsis and hypoxemic respiratory failure. Differential includes healthcare associated pneumonia versus aspiration pneumonia. Oxygenation improved currently on 40% FiO2. Postextubation worsening respiratory distress requiring noninvasive positive pressure ventilation. Chest x-ray shows pleural effusions with compressive atelectasis. Chest x-ray shows persistent bilateral pleural effusions. Iatrogenic pneumothorax following right-sided thoracentesis. Chest tube in place with no pneumothorax present. 2. Possible infected CYBER ENGINEER shunt. Status post externalization 3. Status post bowel resection. 4. Severe sepsis with metabolic acidosis clinically improved 5. Postop anemia, hemoglobin 7.2 continue to monitor 6. Electrolyte abnormalities hyperkalemia and hypernatremia Plan 1. Continue mechanical ventilation. We will attempt weaning trials once thoracentesis performed in pulmonary neurological status improved. 2.' neurosurgery and general surgery recommendations, 3. Continue broad-spectrum antibiotics 4. Thoracentesis left lung today. Continue right sided chest tube to suction. 5. DVT and GI prophylaxis 6. Renal recommendations regarding electrolyte abnormalities, consider increasing diuretics Discussed with staff Critical care time 40 minutes. Problems: DAMIEN GUADARRAMA MD, [facility] Oct 01, 2016 11:08
--- NOTE | 2016-10-01 11:28 | RADRPT ---
PROCEDURE: US upper extremity Venous. CLINICAL INDICATION: Right arm edema TECHNIQUE: Multiple sonographic images of the right upper extremity venous system was obtained uti lizing grayscale, color-flow, compressive sonography and doppler imaging with augmentation. The fatou ges were reviewed on a PACS workstation. COMPARISON: None. FINDINGS: There is a right-sided PICC line in the basilic vein. The right basilic vein and right subclavian vein are not compressible, consistent with DVT. There is soft tissue swelling. There is normal compressibility and flow within the right internal jugular vein, axillary vein, bra chial, cephalic, radial and ulnar veins. RPTAT: AA IMPRESSION: DVT involving the right basilic vein and right subclavian vein. A call report was made and the findings discussed with nurse Ely at 10/01/2016 11:23:53 AM. .Ron Schwartz MD, MD Date Time Electronically viewed and signed by .Ron Schwartz MD, on 10/01/2016 11:27 .S/
--- NOTE | 2016-10-01 11:56 | CONS ---
Date/Time of Note Date/Time of Note DATE: 10/01/16 TIME: 11:41 Assessment/Plan Assessment/Plan Chief Complaint/Hosp Course Acute respiratory failure: Reintubated 09/29 after failing BiPAP. Remains on vent Acute diastolic heart failure: Secondary to volume resuscitation in setting of low albumin and third spacing. Significant anasarca again Paroxysmal afib: converted on amiodarone. Converted back to afib on dopamine but now off and back in sinus Septic shock: from intraabdominal abscess and possible infected DEBEADER shunt. S/p sigmoid colectomy. Was off pressors but transiently required pressor support and 09/30 after reintubation and on low dose now. Tension pneumothorax: due to thoracentesis. s/p chest tube 09/30 NSTEMI: Trop mildly elevated likely type II in the setting of septic shock. Echo from 09/18 showed normal EF and no significant valvular disease. Repeat trop normalized Diverticulitis complicated by abscess s/p sigmoid colectomy and now colostomy Coagulopathy: ?DIC. Resolved h/o ICH with DEBEADER shunt -d/c IVF, can resume or increase free water frequency if hypernatremia worsens -continue lasix and metolazone -hold metoprolol Problems: Consultation Date/Type/Reason Admit Date/Time Sep 15, 2016 at 21:35 Initial Consult Date 09/21/16 Type of Consultation: Cardiology 24 HR Interval Summary Free Text/Dictation S/p thoracentesis yesterday with tension pneumothorax s/p chest tube. Almost off levophed. 4+L input and positive 2L past 24 hours Exam/Review of Systems Vital Signs Vitals Vital Signs Date Time Temp Pulse Resp B/P Pulse Ox O2 Delivery O2 Flow Rate FiO2 10/01/16 10:45 55 56 92/53 100 Mechanical Ventilator 10/01/16 08:00 97.9 10/01/16 05:16 40 09/27/16 09:00 6.0 Intake and Output 09/30/16 09/30/16 10/01/16 15:00 23:00 07:00 Intake Total 1352.68 ml 1399.402 ml 1856.86 ml Output Total 1145 ml 825 ml 993 ml Balance 207.68 ml 574.402 ml 863.86 ml Exam Constitutional: alert ENMT: intubated Neck: jvd (9cm) Respiratory: crackles/rales, diminished breath sounds, No clear to auscultation Cardiovascular: edema (3+), regular rate and rhythm, No systolic murmur Gastrointestinal: non-tender, soft, No distended Neurological: nl mental status Results Result Diagram: 10/01/16 0400 10/01/16 0400 Results 24 hrs Laboratory Tests Test 09/30/16 17:30 10/01/16 04:00 10/01/16 05:20 Body Fluid Type THORACENTESIS Body Fluid Volume 650.0 Body Fluid Color YELLOW Body Fluid Appearance SLIGHTLY CLOUDY Body Fluid WBC 025037 Body Fluid RBC (Auto) 0 Body Fluid Polynuclear WBCs 84 Body Fluid Polynuclear WBCs (%) 84.0 Body Fluid Mononuclear WBCs 16 Body Fluid Mononuclear Cells % Auto 16.0 Body Fluid Glucose 135 Body Fluid Total Protein < 2.0 Body Fluid Lactate Dehydrogenase 684 White Blood Count 19.4 #H Red Blood Count 2.61 #L Hemoglobin 7.2 #L Hematocrit 21.6 #L Mean Corpuscular Volume 82.8 Mean Corpuscular Hemoglobin 27.6 L Mean Corpuscular Hemoglobin Concent 33.3 Red Cell Distribution Width 21.0 H Platelet Count 91 #L Mean Platelet Volume Neutrophils % 94.1 H Lymphocytes % 2.4 L Monocytes % 1.7 Eosinophils % 0.6 Basophils % 0.2 Nucleated Red Blood Cells % 0.0 Neutrophils # 18.3 H Lymphocytes # 0.5 L Monocytes # 0.3 Eosinophils # 0.1 Basophils # 0.0 Nucleated Red Blood Cells # 0.0 Sodium Level 142 Potassium Level 3.1 L Chloride Level 97 Carbon Dioxide Level 32 H Anion Gap 16 Blood Urea Nitrogen 21 H Creatinine 0.78 Glucose Level 152 Calcium Level 7.5 L Phosphorus Level 3.4 Magnesium Level 2.0 Lab Scanned Report BLOOD TRANSFUSION Medications Medications Current Medications Morphine Sulfate (morphine) 2 mg Q4H PRN IV PAIN Last administered on 08:39; Admin Dose 2 MG; Start 09/15/16 at 23:30 Ondansetron HCl (Zofran Inj) 4 mg Q6H PRN IV NAUSEA AND/OR VOMITING Last administered on 09/26/16 09:23; Admin Dose 4 MG; Start 09/16/16 at 00:30 Acetaminophen (Tylenol Tab) 650 mg Q6H PRN PO PAIN LEVEL 1-3 OR FEVER Last administered on 09/30/16 01:22; Admin Dose 650 MG; Start 09/16/16 at 00:30 Polyethylene Glycol 17 gm 17 gm DAILY PO Last administered on 10/01/16 09:13; Admin Dose 17 GM; Start 09/20/16 at 11:00 Meropenem/Sodium Chloride 50 ml @ 200 mls/hr Q8 IVPB Last administered on 10/01 06:47; Admin Dose 200 MLS/HR; Start 09/20/16 at 22:00 Norepinephrine 16 mg/Dextrose 500 ml @ 1.87 mls/hr TITRATE IV Last administered on 09/29/16 13:22; Admin Dose 1.87 MLS/HR; Start 09/21/16 at 09:00 Propofol (Diprivan) 100 ml @ 1.671 mls/ hr Q12H IV Last administered on 09:13; Admin Dose 5.013 MLS/HR; Start 09/21/16 at 02:30 Acetaminophen/ Hydrocodone Bitart ([place] (5/325)) 1 tab Q4H PRN PO PAIN LEVEL 4 -7 Last administered on 09/28/16 21:20; Admin Dose 1 TAB; Start 09/21/16 at 15: 00 Acetaminophen/ Hydrocodone Bitart ([place] (5/325)) 2 tab Q4H PRN PO PAIN LEVEL 7 -10; Start 09/21/16 at 15:00 Hydromorphone HCl (Dilaudid) 0.5 mg Q2H PRN IV PAIN Last administered on 16:41; Admin Dose 0.5 MG; Start 09/21/16 at 15:00 Hydromorphone HCl (Dilaudid) 1 mg Q2H PRN IV PAIN Last administered on 09:12; Admin Dose 1 MG; Start 09/21/16 at 15:00 Docusate Sodium (Colace) 100 mg BID PRN PO CONSTIPATION; Start 09/21/16 at 15: 00 Enoxaparin Sodium (Lovenox) 40 mg DAILY SC ; Start 09/22/16 at 09:00; Status Future Hold Docusate Sodium (Colace Liquid Cup) 100 mg BID NGT Last administered on 09:13; Admin Dose 100 MG; Start 09/22/16 at 21:00 Pantoprazole (Protonix Iv) 40 mg DAILY@06 IV Last administered on 10/01/16 06: 46; Admin Dose 40 MG; Start 09/26/16 at 06:00 IV Flush 10 ml 10 ml PRN PRN IV IV PROTOCOL; Start 09/25/16 at 12:00 Potassium Chloride/Dextrose (D5W + KCl 20 Meq) 1,000 ml @ 40 mls/hr Q24H IV Last administered on 10/01/16 05:00; Admin Dose 75 MLS/HR; Start 09/27/16 at 18 :00 Spironolactone 50 mg 50 mg DAILY NGT Last administered on 10/01/16 09:14; Admin Dose 50 MG; Start 09/28/16 at 09:00 Vancomycin HCl 250 ml @ 125 mls/hr Q24H IVPB Last administered on 10/01/16 06 :46; Admin Dose 125 MLS/HR; Start 09/30/16 at 06:00 Dopamine HCl/ Dextrose 250 ml @ 6.053 mls/ hr TITRATE IV Last administered on 09/30/16 04:46; Admin Dose 6.053 MLS/HR; Start 09/29/16 at 11:00 Phenylephrine HCl 40 mg/Dextrose 500 ml @ 75 mls/hr TITRATE IV ; Start at 14:00 Caspofungin 50 mg/ Sodium Chloride 250 ml @ 250 mls/hr Q24H IVPB ; Start at 12:00 Metronidazole (Flagyl 500 Mg (Pmx)) 100 ml @ 100 mls/hr Q8 IVPB Last administered on 10/01/16 06:46; Admin Dose 100 MLS/HR; Start 09/30/16 at 14:00 Furosemide 40 mg 40 mg Q8 IV ; Start 10/01/16 at 14:00 Fentanyl (Sublimaze) 100 ml @ 2.5 mls/hr TITRATE IV Last administered on 10:07; Admin Dose 2.5 MLS/HR; Start 10/01/16 at 09:30 GUSTAVO RAMON Oct 01, 2016 11:55
[2016-10-01] MEDS: CASPOFUNGIN 50 MG in SOD CHLORIDE 0.9% 250 ML IVPB SCH (12:01)
--- NOTE | 2016-10-01 12:46 | PN ---
Date/Time of Note Date/Time of Note DATE: 10/01/16 TIME: 12:44 Assessment/Plan VTE Prophylaxis VTE Prophylaxis Intervention: LMWH Assessment/Plan Chief Complaint/Hosp Course 1. 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 Severe sepsis with systemic shock and organ dysfunction, on vancomycin/ meropenem/flagyl/caspfungin 3. Respiratory failure-patient reintubated, follow up with pulmonology 4. Mild troponin elevation likely type 2 from sepsis, stable 5. Acute transaminitis 2/2 shock liver: resolved 6. History of intracranial hemorrhage in the past status post CREATIVE SERVICES COORDINATOR shunt placement that has been stable over time * CREATIVE SERVICES COORDINATOR shunt was externalized during the surgery September 21, 2016 due to abdominal infection, per neurosurgical notes may need to be reconnected once patient stable versus removed 7. Hypernatremia likely secondary to #1: improved 8. Severe coagulopathy also as a result of #1: improved 9. Iron deficiency hypochromic anemia on iron infusion therapy 10. Diffuse anasarca as well as bilateral pleural effusions likely associated hypoalbuminemia 11. Bilateral pneumonia with vascular congestion concerning for ARDS, on vent, follow up with pulmonology 12. Acute renal insufficiency, reolved 13. Thrombocytopenia, sepsis related, follow up with PLT 14. Pleural effusion, thoracentesis per pulmonology 15. DVT prophylaxis: lovenox 16. Critical care time: 45 minutes Problems: Subjective 24 Hr Interval Summary Subjective hx not possible: pt non-verbal Exam/Review of Systems Vital Signs Vitals Vital Signs Date Time Temp Pulse Resp B/P Pulse Ox O2 Delivery O2 Flow Rate FiO2 10/01/16 12:25 54 16 100 40 10/01/16 10:45 92/53 Mechanical Ventilator 10/01/16 08:00 97.9 09/27/16 09:00 6.0 Intake and Output 09/30/16 09/30/16 10/01/16 15:00 23:00 07:00 Intake Total 1352.68 ml 1399.402 ml 1856.86 ml Output Total 1145 ml 825 ml 993 ml Balance 207.68 ml 574.402 ml 863.86 ml Exam ENMT: intubated Respiratory: clear to auscultation Cardiovascular: regular rate and rhythm Gastrointestinal: soft, No distended Musculoskeletal: nl extremities to inspection Results Result Diagram: 10/01/16 0400 10/01/16 0400 Results 24 hrs Laboratory Tests Test 09/30/16 17:30 10/01/16 04:00 10/01/16 05:20 Body Fluid Type THORACENTESIS Body Fluid Volume 650.0 Body Fluid Color YELLOW Body Fluid Appearance SLIGHTLY CLOUDY Body Fluid WBC 953302 Body Fluid RBC (Auto) 0 Body Fluid Polynuclear WBCs 84 Body Fluid Polynuclear WBCs (%) 84.0 Body Fluid Mononuclear WBCs 16 Body Fluid Mononuclear Cells % Auto 16.0 Body Fluid Glucose 135 Body Fluid Total Protein < 2.0 Body Fluid Lactate Dehydrogenase 684 White Blood Count 19.4 #H Red Blood Count 2.61 #L Hemoglobin 7.2 #L Hematocrit 21.6 #L Mean Corpuscular Volume 82.8 Mean Corpuscular Hemoglobin 27.6 L Mean Corpuscular Hemoglobin Concent 33.3 Red Cell Distribution Width 21.0 H Platelet Count 91 #L Mean Platelet Volume Neutrophils % 94.1 H Lymphocytes % 2.4 L Monocytes % 1.7 Eosinophils % 0.6 Basophils % 0.2 Nucleated Red Blood Cells % 0.0 Neutrophils # 18.3 H Lymphocytes # 0.5 L Monocytes # 0.3 Eosinophils # 0.1 Basophils # 0.0 Nucleated Red Blood Cells # 0.0 Sodium Level 142 Potassium Level 3.1 L Chloride Level 97 Carbon Dioxide Level 32 H Anion Gap 16 Blood Urea Nitrogen 21 H Creatinine 0.78 Glucose Level 152 Calcium Level 7.5 L Phosphorus Level 3.4 Magnesium Level 2.0 Lab Scanned Report BLOOD TRANSFUSION Medications Medications Current Medications Morphine Sulfate (morphine) 2 mg Q4H PRN IV PAIN Last administered on 08:39; Admin Dose 2 MG; Start 09/15/16 at 23:30 Ondansetron HCl (Zofran Inj) 4 mg Q6H PRN IV NAUSEA AND/OR VOMITING Last administered on 09/26/16 09:23; Admin Dose 4 MG; Start 09/16/16 at 00:30 Acetaminophen (Tylenol Tab) 650 mg Q6H PRN PO PAIN LEVEL 1-3 OR FEVER Last administered on 09/30/16 01:22; Admin Dose 650 MG; Start 09/16/16 at 00:30 Polyethylene Glycol 17 gm 17 gm DAILY PO Last administered on 10/01/16 09:13; Admin Dose 17 GM; Start 09/20/16 at 11:00 Meropenem/Sodium Chloride 50 ml @ 200 mls/hr Q8 IVPB Last administered on 10/01 06:47; Admin Dose 200 MLS/HR; Start 09/20/16 at 22:00 Norepinephrine 16 mg/Dextrose 500 ml @ 1.87 mls/hr TITRATE IV Last administered on 09/29/16 13:22; Admin Dose 1.87 MLS/HR; Start 09/21/16 at 09:00 Propofol (Diprivan) 100 ml @ 1.671 mls/ hr Q12H IV Last administered on 09:13; Admin Dose 5.013 MLS/HR; Start 09/21/16 at 02:30 Acetaminophen/ Hydrocodone Bitart ([place] (5/325)) 1 tab Q4H PRN PO PAIN LEVEL 4 -7 Last administered on 09/28/16 21:20; Admin Dose 1 TAB; Start 09/21/16 at 15: 00 Acetaminophen/ Hydrocodone Bitart ([place] (5/325)) 2 tab Q4H PRN PO PAIN LEVEL 7 -10; Start 09/21/16 at 15:00 Hydromorphone HCl (Dilaudid) 0.5 mg Q2H PRN IV PAIN Last administered on 16:41; Admin Dose 0.5 MG; Start 09/21/16 at 15:00 Hydromorphone HCl (Dilaudid) 1 mg Q2H PRN IV PAIN Last administered on 09:12; Admin Dose 1 MG; Start 09/21/16 at 15:00 Docusate Sodium (Colace) 100 mg BID PRN PO CONSTIPATION; Start 09/21/16 at 15: 00 Enoxaparin Sodium (Lovenox) 40 mg DAILY SC ; Start 09/22/16 at 09:00; Status Future Hold Docusate Sodium (Colace Liquid Cup) 100 mg BID NGT Last administered on 09:13; Admin Dose 100 MG; Start 09/22/16 at 21:00 Pantoprazole (Protonix Iv) 40 mg DAILY@06 IV Last administered on 10/01/16 06: 46; Admin Dose 40 MG; Start 09/26/16 at 06:00 IV Flush (NS 10 ml) 10 ml PRN PRN IV IV PROTOCOL; Start 09/25/16 at 12:00 Spironolactone 50 mg 50 mg DAILY NGT Last administered on 10/01/16 09:14; Admin Dose 50 MG; Start 09/28/16 at 09:00 Vancomycin HCl 250 ml @ 125 mls/hr Q24H IVPB Last administered on 10/01/16 06 :46; Admin Dose 125 MLS/HR; Start 09/30/16 at 06:00 Dopamine HCl/ Dextrose 250 ml @ 6.053 mls/ hr TITRATE IV Last administered on 09/30/16 04:46; Admin Dose 6.053 MLS/HR; Start 09/29/16 at 11:00 Phenylephrine HCl 40 mg/Dextrose 500 ml @ 75 mls/hr TITRATE IV ; Start at 14:00 Caspofungin 50 mg/ Sodium Chloride 250 ml @ 250 mls/hr Q24H IVPB Last administered on 10/01/16 12:01; Admin Dose 250 MLS/HR; Start 10/01/16 at 12:00 Metronidazole (Flagyl 500 Mg (Pmx)) 100 ml @ 100 mls/hr Q8 IVPB Last administered on 10/01/16 06:46; Admin Dose 100 MLS/HR; Start 09/30/16 at 14:00 Furosemide 40 mg 40 mg Q8 IV ; Start 10/01/16 at 14:00 Fentanyl (Sublimaze) 100 ml @ 2.5 mls/hr TITRATE IV Last administered on 10:07; Admin Dose 2.5 MLS/HR; Start 10/01/16 at 09:30 DALE RODARTE Oct 01, 2016 12:46
--- NOTE | 2016-10-01 13:38 | CONS ---
Date/Time of Note Date/Time of Note DATE: 10/01/16 TIME: 13:15 Assessment/Plan Assessment/Plan Chief Complaint/Hosp Course ID PROGRESS NOTE TOTAL ABX DAY # => VANCO IV + MERREM + FLAGYL #2 + Cancidas #2 24H INTERVAL SUMMARY * No fevers, WBC down to 19.4, noncommunicative orally intubated/vented => Re- intubated 09/29 * s/p CT 09/30 * CT ABD/PEL: Free air slight decrease in pelvic free fluid pelvic pigtail catheter in place no definite new drainable fluid collection. Increase in bilateral pleural effusions and nodular lung infiltrates * MICRO: 09/23/16 BODY FLUID CULTURE Final Organism 1 ENTEROCOCCUS SPECIES QUANTITY 1+ Organism 2 COAGULASE NEGATIVE STAPH QUANTITY SCANT GROWTH Organism 3 ALPHA HEMOLYTIC STREP SPP QUANTITY 1+ . VIRIDANS GROUP EXAM: 70 yo F orally intubated on the Vent, no fevers HEENT: ETT-> Secure to Vent Neck: trachea midline. Heart: S1, S2 CXT: chest rise symmetrical breath sounds clear, diminished basis. ABD: Soft, (+)drain tannish color liquid Extremities without cyanosis, (+) edema x4 ID ASSESSMENT 70 yo F w/PMHx ICH and JOINERY PATTERNMAKER shunt admit with: 1. Sepsis w/shock back on pressors, persistent lactic acidosis => ABX adjusted yesterday w/Diflucan change to Cancidas + addition Flagyl * leukocytosis improved 2. s/p Perforated sigmoid colon w/abscess * => POD#10 -> s/p 09/21/16 OPERATION:1. Sigmoid colectomy with performance of end colostomy (Reid's procedure), w/Lysis of adhesions. * S/p IR drainage 09/09/16 with removal of 20 cc pus and placement of a 10 Fr. pigtail catheter at [facility]. * s/p upsizing of drain to 12 Fr pigtail on 09/17/16 * Status post prior hysterectomy and bilateral salpingo-oophorectomy through Pfannenstiel incision 4. POD #10 ->S/P 09/21/16 Externalization of JOINERY PATTERNMAKER shunt. INDICATION: Possible JOINERY PATTERNMAKER shunt infection, hx of Hydrocephalus, JOINERY PATTERNMAKER shunt, abdominal abscess 5. Acute respiratory failure -> orally RE-intubated 09/29 after failed prior extubation to BIPAP 6. CHF w/elevated BNP => (+)Anasarca w/Pleural effusions s/p CT drain 09/30 7. HCAP * CT 09/30 THORA BODY FLUID CULTURE Preliminary No growth after 1 day 8. Pancytopenia - sepsis 9. Coagulopathy w/thrombocytopenia 10. (+)Troponin elevation likely type II in the setting of septic shock. Echo from 09/18 showed normal EF and no significant valvular disease. (-)MRSA Nares screen INVASIVES: PICC (09/25/16) , ETT, NGT, VPS, FC, intra-abdominal drainage catheters ABX ALLERGY: PCN CURRENT ABX: # => VANCO IV + MERREM + FLAGYL #2 + Cancidas #2 ID RECOMMENDATIONS 1. Continue current broad spectrum IV ABX coverage 2. Follow Neuro/GI surgery/Cards/Pulm recs 3. Respiratory Cx in am -- post Re-Intubation . . Problems: Consultation Date/Type/Reason Admit Date/Time Sep 15, 2016 at 21:35 Initial Consult Date 09/21/16 Type of Consultation: ID Exam/Review of Systems Vital Signs Vitals Vital Signs Date Time Temp Pulse Resp B/P Pulse Ox O2 Delivery O2 Flow Rate FiO2 10/01/16 12:25 54 16 100 40 10/01/16 10:45 92/53 Mechanical Ventilator 10/01/16 08:00 97.9 09/27/16 09:00 6.0 Intake and Output 09/30/16 09/30/16 10/01/16 15:00 23:00 07:00 Intake Total 1352.68 ml 1399.402 ml 1856.86 ml Output Total 1145 ml 825 ml 993 ml Balance 207.68 ml 574.402 ml 863.86 ml Results Result Diagram: 10/01/16 0400 10/01/16 0400 Results 24 hrs Laboratory Tests Test 09/30/16 17:30 10/01/16 04:00 10/01/16 05:20 Body Fluid Type THORACENTESIS Body Fluid Volume 650.0 Body Fluid Color YELLOW Body Fluid Appearance SLIGHTLY CLOUDY Body Fluid WBC 528497 Body Fluid RBC (Auto) 0 Body Fluid Polynuclear WBCs 84 Body Fluid Polynuclear WBCs (%) 84.0 Body Fluid Mononuclear WBCs 16 Body Fluid Mononuclear Cells % Auto 16.0 Body Fluid Glucose 135 Body Fluid Total Protein < 2.0 Body Fluid Lactate Dehydrogenase 684 White Blood Count 19.4 #H Red Blood Count 2.61 #L Hemoglobin 7.2 #L Hematocrit 21.6 #L Mean Corpuscular Volume 82.8 Mean Corpuscular Hemoglobin 27.6 L Mean Corpuscular Hemoglobin Concent 33.3 Red Cell Distribution Width 21.0 H Platelet Count 91 #L Mean Platelet Volume Neutrophils % 94.1 H Lymphocytes % 2.4 L Monocytes % 1.7 Eosinophils % 0.6 Basophils % 0.2 Nucleated Red Blood Cells % 0.0 Neutrophils # 18.3 H Lymphocytes # 0.5 L Monocytes # 0.3 Eosinophils # 0.1 Basophils # 0.0 Nucleated Red Blood Cells # 0.0 Sodium Level 142 Potassium Level 3.1 L Chloride Level 97 Carbon Dioxide Level 32 H Anion Gap 16 Blood Urea Nitrogen 21 H Creatinine 0.78 Glucose Level 152 Calcium Level 7.5 L Phosphorus Level 3.4 Magnesium Level 2.0 Lab Scanned Report BLOOD TRANSFUSION Medications Medications Current Medications Morphine Sulfate (morphine) 2 mg Q4H PRN IV PAIN Last administered on 08:39; Admin Dose 2 MG; Start 09/15/16 at 23:30 Ondansetron HCl (Zofran Inj) 4 mg Q6H PRN IV NAUSEA AND/OR VOMITING Last administered on 09/26/16 09:23; Admin Dose 4 MG; Start 09/16/16 at 00:30 Acetaminophen (Tylenol Tab) 650 mg Q6H PRN PO PAIN LEVEL 1-3 OR FEVER Last administered on 09/30/16 01:22; Admin Dose 650 MG; Start 09/16/16 at 00:30 Polyethylene Glycol 17 gm 17 gm DAILY PO Last administered on 10/01/16 09:13; Admin Dose 17 GM; Start 09/20/16 at 11:00 Meropenem/Sodium Chloride 50 ml @ 200 mls/hr Q8 IVPB Last administered on 10/01 06:47; Admin Dose 200 MLS/HR; Start 09/20/16 at 22:00 Norepinephrine 16 mg/Dextrose 500 ml @ 1.87 mls/hr TITRATE IV Last administered on 09/29/16 13:22; Admin Dose 1.87 MLS/HR; Start 09/21/16 at 09:00 Propofol (Diprivan) 100 ml @ 1.671 mls/ hr Q12H IV Last administered on 09:13; Admin Dose 5.013 MLS/HR; Start 09/21/16 at 02:30 Acetaminophen/ Hydrocodone Bitart ([place] (5/325)) 1 tab Q4H PRN PO PAIN LEVEL 4 -7 Last administered on 09/28/16 21:20; Admin Dose 1 TAB; Start 09/21/16 at 15: 00 Acetaminophen/ Hydrocodone Bitart ([place] (5/325)) 2 tab Q4H PRN PO PAIN LEVEL 7 -10; Start 09/21/16 at 15:00 Hydromorphone HCl (Dilaudid) 0.5 mg Q2H PRN IV PAIN Last administered on 16:41; Admin Dose 0.5 MG; Start 09/21/16 at 15:00 Hydromorphone HCl (Dilaudid) 1 mg Q2H PRN IV PAIN Last administered on 09:12; Admin Dose 1 MG; Start 09/21/16 at 15:00 Docusate Sodium (Colace) 100 mg BID PRN PO CONSTIPATION; Start 09/21/16 at 15: 00 Enoxaparin Sodium (Lovenox) 40 mg DAILY SC ; Start 09/22/16 at 09:00; Status Future Hold Docusate Sodium (Colace Liquid Cup) 100 mg BID NGT Last administered on 09:13; Admin Dose 100 MG; Start 09/22/16 at 21:00 Pantoprazole (Protonix Iv) 40 mg DAILY@06 IV Last administered on 10/01/16 06: 46; Admin Dose 40 MG; Start 09/26/16 at 06:00 IV Flush (NS 10 ml) 10 ml PRN PRN IV IV PROTOCOL; Start 09/25/16 at 12:00 Spironolactone 50 mg 50 mg DAILY NGT Last administered on 10/01/16 09:14; Admin Dose 50 MG; Start 09/28/16 at 09:00 Vancomycin HCl 250 ml @ 125 mls/hr Q24H IVPB Last administered on 10/01/16 06 :46; Admin Dose 125 MLS/HR; Start 09/30/16 at 06:00 Dopamine HCl/ Dextrose 250 ml @ 6.053 mls/ hr TITRATE IV Last administered on 09/30/16 04:46; Admin Dose 6.053 MLS/HR; Start 09/29/16 at 11:00 Phenylephrine HCl 40 mg/Dextrose 500 ml @ 75 mls/hr TITRATE IV ; Start at 14:00 Caspofungin 50 mg/ Sodium Chloride 250 ml @ 250 mls/hr Q24H IVPB Last administered on 10/01/16 12:01; Admin Dose 250 MLS/HR; Start 10/01/16 at 12:00 Metronidazole (Flagyl 500 Mg (Pmx)) 100 ml @ 100 mls/hr Q8 IVPB Last administered on 10/01/16 06:46; Admin Dose 100 MLS/HR; Start 09/30/16 at 14:00 Furosemide 40 mg 40 mg Q8 IV ; Start 10/01/16 at 14:00 Fentanyl (Sublimaze) 100 ml @ 2.5 mls/hr TITRATE IV Last administered on 10:07; Admin Dose 2.5 MLS/HR; Start 10/01/16 at 09:30 DONNA HERNANDEZ NP Oct 01, 2016 13:31
[2016-10-01] MEDS: FUROSEMIDE 40 MG INJ IV SCH ×2 (14:02→22:00)
[2016-10-01 14:20] LABS: CALCIUM 7.8 mg/dl (8.4-10.2); CREATININE 0.7 mg/dl (0.44-1.00); POTASSIUM 3.4 mmol/L (3.5-5.1)
--- NOTE | 2016-10-01 14:57 | RADRPT ---
PROCEDURE: US guided left thoracentesis. CLINICAL INDICATION: Shortness of breath. Left pleural effusion. TECHNIQUE: Prior to the procedure, informed consent was obtained. The risks, benefits, and alternatives were e xplained to the patient or the patient's family, including but not limited to bleeding, infection, p ain, visceral or vascular damage, shock, pneumothorax, chest tube placement, air embolism, and . The patient or the patient's family understood the risks and the alternatives and wished to proce ed with the study. Informed written consent was obtained. A procedural pause was performed. The patient's name, date of , and procedure to be performed were verified. Ultrasound of the left hemithorax was performed in the axial and sagittal planes. A left pleural eff usion is noted. Utilizing ultrasound guidance, optimal location for entry to the pleural cavity was ascertained. The overlying skin was prepped and draped in the usual sterile fashion. Approximately 10 ml of 1% Xylocaine was injected locally for pain control. Using ultrasound guidance, a 5-[place] Yueh catheter was introduced into the left pleural space without difficulty. Fluid was aspirated. COMPARISON: None. FINDINGS: Initial ultrasound demonstrates fluid in the left pleural space. Approximately 0.530 liters of sero us fluid was aspirated and discarded. IMPRESSION: 1. Satisfactory ultrasound-guided left thoracentesis. RPTAT: QQ .Beto Corets MD, Date Time Electronically viewed and signed by .Beto Cortes MD, on 10/01/2016 14:56 .R/
--- NOTE | 2016-10-01 15:33 | CONS ---
Date/Time of Note Date/Time of Note DATE: 10/01/16 TIME: 15:28 Consult Date/Type/Reason Admit Date/Time Sep 15, 2016 at 21:35 Initial Consult Date 09/21/16 Type of Consultation: Palliative Subjective There has been no changre in her clinical condition after she was reintubated., remains critical. Objective Vital Signs Date Time Temp Pulse Resp B/P Pulse Ox O2 Delivery O2 Flow Rate FiO2 10/01/16 14:15 52 16 98/53 100 Mechanical Ventilator 10/01/16 12:25 40 10/01/16 12:00 98.4 09/27/16 09:00 6.0 Intake and Output 09/30/16 09/30/16 10/01/16 15:00 23:00 07:00 Intake Total 1352.68 ml 1399.402 ml 1856.86 ml Output Total 1145 ml 825 ml 993 ml Balance 207.68 ml 574.402 ml 863.86 ml Exam Chest .. distant rhonchi COR... regular rate and rhythm Results/Medications Result Diagram: 10/01/16 0400 10/01/16 1330 Results 24 hrs Laboratory Tests Test 09/30/16 17:30 10/01/16 04:00 10/01/16 05:20 10/01/16 13:30 Body Fluid Type THORACENTESIS Body Fluid Volume 650.0 Body Fluid Color YELLOW Body Fluid Appearance SLIGHTLY CLOUDY Body Fluid WBC [id number] Body Fluid RBC (Auto) 0 Body Fluid Polynuclear WBCs 84 Body Fluid Polynuclear WBCs (%) 84.0 Body Fluid Mononuclear WBCs 16 Body Fluid Mononuclear Cells % Auto 16.0 Body Fluid Glucose 135 Body Fluid Total Protein < 2.0 Body Fluid Lactate Dehydrogenase 684 White Blood Count 19.4 #H Red Blood Count 2.61 #L Hemoglobin 7.2 #L Hematocrit 21.6 #L Mean Corpuscular Volume 82.8 Mean Corpuscular Hemoglobin 27.6 L Mean Corpuscular Hemoglobin Concent 33.3 Red Cell Distribution Width 21.0 H Platelet Count 91 #L Mean Platelet Volume Neutrophils % 94.1 H Lymphocytes % 2.4 L Monocytes % 1.7 Eosinophils % 0.6 Basophils % 0.2 Nucleated Red Blood Cells % 0.0 Neutrophils # 18.3 H Lymphocytes # 0.5 L Monocytes # 0.3 Eosinophils # 0.1 Basophils # 0.0 Nucleated Red Blood Cells # 0.0 Sodium Level 142 140 Potassium Level 3.1 L 3.4 L Chloride Level 97 95 L Carbon Dioxide Level 32 H 31 Anion Gap 16 17 H Blood Urea Nitrogen 21 H 22 H Creatinine 0.78 0.70 Glucose Level 152 163 Calcium Level 7.5 L 7.8 L Phosphorus Level 3.4 Magnesium Level 2.0 Lab Scanned Report BLOOD TRANSFUSION Medications Current Medications Morphine Sulfate (morphine) 2 mg Q4H PRN IV PAIN Last administered on 08:39; Admin Dose 2 MG; Start 09/15/16 at 23:30 Ondansetron HCl (Zofran Inj) 4 mg Q6H PRN IV NAUSEA AND/OR VOMITING Last administered on 09/26/16 09:23; Admin Dose 4 MG; Start 09/16/16 at 00:30 Acetaminophen (Tylenol Tab) 650 mg Q6H PRN PO PAIN LEVEL 1-3 OR FEVER Last administered on 09/30/16 01:22; Admin Dose 650 MG; Start 09/16/16 at 00:30 Polyethylene Glycol 17 gm 17 gm DAILY PO Last administered on 10/01/16 09:13; Admin Dose 17 GM; Start 09/20/16 at 11:00 Meropenem/Sodium Chloride 50 ml @ 200 mls/hr Q8 IVPB Last administered on 10/01 14:03; Admin Dose 200 MLS/HR; Start 09/20/16 at 22:00 Norepinephrine 16 mg/Dextrose 500 ml @ 1.87 mls/hr TITRATE IV Last administered on 10/01/16 14:05; Admin Dose 3.75 MLS/HR; Start 09/21/16 at 09:00 Propofol (Diprivan) 100 ml @ 1.671 mls/ hr Q12H IV Last administered on 09:13; Admin Dose 5.013 MLS/HR; Start 09/21/16 at 02:30 Acetaminophen/ Hydrocodone Bitart ([place] (5/325)) 1 tab Q4H PRN PO PAIN LEVEL 4 -7 Last administered on 09/28/16 21:20; Admin Dose 1 TAB; Start 09/21/16 at 15: 00 Acetaminophen/ Hydrocodone Bitart ([place] (5/325)) 2 tab Q4H PRN PO PAIN LEVEL 7 -10; Start 09/21/16 at 15:00 Hydromorphone HCl (Dilaudid) 0.5 mg Q2H PRN IV PAIN Last administered on 16:41; Admin Dose 0.5 MG; Start 09/21/16 at 15:00 Hydromorphone HCl (Dilaudid) 1 mg Q2H PRN IV PAIN Last administered on 09:12; Admin Dose 1 MG; Start 09/21/16 at 15:00 Docusate Sodium (Colace) 100 mg BID PRN PO CONSTIPATION; Start 09/21/16 at 15: 00 Enoxaparin Sodium (Lovenox) 40 mg DAILY SC ; Start 09/22/16 at 09:00; Status Future Hold Docusate Sodium (Colace Liquid Cup) 100 mg BID NGT Last administered on 09:13; Admin Dose 100 MG; Start 09/22/16 at 21:00 Pantoprazole (Protonix Iv) 40 mg DAILY@06 IV Last administered on 10/01/16 06: 46; Admin Dose 40 MG; Start 09/26/16 at 06:00 IV Flush (NS 10 ml) 10 ml PRN PRN IV IV PROTOCOL; Start 09/25/16 at 12:00 Spironolactone 50 mg 50 mg DAILY NGT Last administered on 10/01/16 09:14; Admin Dose 50 MG; Start 09/28/16 at 09:00 Vancomycin HCl 250 ml @ 125 mls/hr Q24H IVPB Last administered on 10/01/16 06 :46; Admin Dose 125 MLS/HR; Start 09/30/16 at 06:00 Dopamine HCl/ Dextrose 250 ml @ 6.053 mls/ hr TITRATE IV Last administered on 09/30/16 04:46; Admin Dose 6.053 MLS/HR; Start 09/29/16 at 11:00 Phenylephrine HCl 40 mg/Dextrose 500 ml @ 75 mls/hr TITRATE IV ; Start at 14:00 Caspofungin 50 mg/ Sodium Chloride 250 ml @ 250 mls/hr Q24H IVPB Last administered on 10/01/16 12:01; Admin Dose 250 MLS/HR; Start 7/25/17 at 12:00 Metronidazole (Flagyl 500 Mg (Pmx)) 100 ml @ 100 mls/hr Q8 IVPB Last administered on 10/01/16 15:18; Admin Dose 100 MLS/HR; Start 09/30/16 at 14:00 Furosemide 40 mg 40 mg Q8 IV Last administered on 10/01/16 14:02; Admin Dose 40 MG; Start 10/01/16 at 14:00 Fentanyl (Sublimaze) 100 ml @ 2.5 mls/hr TITRATE IV Last administered on 10:07; Admin Dose 2.5 MLS/HR; Start 10/01/16 at 09:30 Assessment/Plan Additional Assessment/Plan Will speak to Dr Viramontes if trach is in order... YANETH VIDAL Oct 01, 2016 15:33
--- NOTE | 2016-10-01 15:41 | CONS ---
Date/Time of Note Date/Time of Note DATE: 10/01/16 TIME: 15:34 Consultation Date/Type/Reason Admit Date/Time Sep 15, 2016 at 21:35 Initial Consult Date 09/21/16 Type of Consultation: Palliative 24 HR Interval Summary Free Text/Dictation Friend at bedside daily. My conversations with him have centered towards her recovery. However he is realistic that he may have to make other decisions based upon her prior discussions with him that she would not want to live on artificial life support including trach.Will discuss with primary. Subjective hx not possible: pt critical, pt critical status Exam/Review of Systems Vital Signs Vitals Vital Signs Date Time Temp Pulse Resp B/P Pulse Ox O2 Delivery O2 Flow Rate FiO2 10/01/16 14:15 52 16 98/53 100 Mechanical Ventilator 10/01/16 12:25 40 10/01/16 12:00 98.4 09/27/16 09:00 6.0 Intake and Output 09/30/16 09/30/16 10/01/16 15:00 23:00 07:00 Intake Total 1352.68 ml 1399.402 ml 1856.86 ml Output Total 1145 ml 825 ml 993 ml Balance 207.68 ml 574.402 ml 863.86 ml Exam Constitutional: non-verbal (sadated) Results Result Diagram: 10/01/16 0400 10/01/16 1330 Results 24 hrs Laboratory Tests Test 09/30/16 17:30 10/01/16 04:00 10/01/16 05:20 10/01/16 13:30 Body Fluid Type THORACENTESIS Body Fluid Volume 650.0 Body Fluid Color YELLOW Body Fluid Appearance SLIGHTLY CLOUDY Body Fluid WBC [id number] Body Fluid RBC (Auto) 0 Body Fluid Polynuclear WBCs 84 Body Fluid Polynuclear WBCs (%) 84.0 Body Fluid Mononuclear WBCs 16 Body Fluid Mononuclear Cells % Auto 16.0 Body Fluid Glucose 135 Body Fluid Total Protein < 2.0 Body Fluid Lactate Dehydrogenase 684 White Blood Count 19.4 #H Red Blood Count 2.61 #L Hemoglobin 7.2 #L Hematocrit 21.6 #L Mean Corpuscular Volume 82.8 Mean Corpuscular Hemoglobin 27.6 L Mean Corpuscular Hemoglobin Concent 33.3 Red Cell Distribution Width 21.0 H Platelet Count 91 #L Mean Platelet Volume Neutrophils % 94.1 H Lymphocytes % 2.4 L Monocytes % 1.7 Eosinophils % 0.6 Basophils % 0.2 Nucleated Red Blood Cells % 0.0 Neutrophils # 18.3 H Lymphocytes # 0.5 L Monocytes # 0.3 Eosinophils # 0.1 Basophils # 0.0 Nucleated Red Blood Cells # 0.0 Sodium Level 142 140 Potassium Level 3.1 L 3.4 L Chloride Level 97 95 L Carbon Dioxide Level 32 H 31 Anion Gap 16 17 H Blood Urea Nitrogen 21 H 22 H Creatinine 0.78 0.70 Glucose Level 152 163 Calcium Level 7.5 L 7.8 L Phosphorus Level 3.4 Magnesium Level 2.0 Lab Scanned Report BLOOD TRANSFUSION Medications Medications Current Medications Morphine Sulfate (morphine) 2 mg Q4H PRN IV PAIN Last administered on 08:39; Admin Dose 2 MG; Start 09/15/16 at 23:30 Ondansetron HCl (Zofran Inj) 4 mg Q6H PRN IV NAUSEA AND/OR VOMITING Last administered on 09/26/16 09:23; Admin Dose 4 MG; Start 09/16/16 at 00:30 Acetaminophen (Tylenol Tab) 650 mg Q6H PRN PO PAIN LEVEL 1-3 OR FEVER Last administered on 09/30/16 01:22; Admin Dose 650 MG; Start 09/16/16 at 00:30 Polyethylene Glycol 17 gm 17 gm DAILY PO Last administered on 10/01/16 09:13; Admin Dose 17 GM; Start 09/20/16 at 11:00 Meropenem/Sodium Chloride 50 ml @ 200 mls/hr Q8 IVPB Last administered on 10/01 14:03; Admin Dose 200 MLS/HR; Start 09/20/16 at 22:00 Norepinephrine 16 mg/Dextrose 500 ml @ 1.87 mls/hr TITRATE IV Last administered on 10/01/16 14:05; Admin Dose 3.75 MLS/HR; Start 09/21/16 at 09:00 Propofol (Diprivan) 100 ml @ 1.671 mls/ hr Q12H IV Last administered on 09:13; Admin Dose 5.013 MLS/HR; Start 09/21/16 at 02:30 Acetaminophen/ Hydrocodone Bitart ([place] (5/325)) 1 tab Q4H PRN PO PAIN LEVEL 4 -7 Last administered on 09/28/16 21:20; Admin Dose 1 TAB; Start 09/21/16 at 15: 00 Acetaminophen/ Hydrocodone Bitart ([place] (5/325)) 2 tab Q4H PRN PO PAIN LEVEL 7 -10; Start 09/21/16 at 15:00 Hydromorphone HCl (Dilaudid) 0.5 mg Q2H PRN IV PAIN Last administered on 16:41; Admin Dose 0.5 MG; Start 09/21/16 at 15:00 Hydromorphone HCl (Dilaudid) 1 mg Q2H PRN IV PAIN Last administered on 09:12; Admin Dose 1 MG; Start 09/21/16 at 15:00 Docusate Sodium (Colace) 100 mg BID PRN PO CONSTIPATION; Start 09/21/16 at 15: 00 Enoxaparin Sodium (Lovenox) 40 mg DAILY SC ; Start 09/22/16 at 09:00; Status Future Hold Docusate Sodium (Colace Liquid Cup) 100 mg BID NGT Last administered on 09:13; Admin Dose 100 MG; Start 09/22/16 at 21:00 Pantoprazole (Protonix Iv) 40 mg DAILY@06 IV Last administered on 10/01/16 06: 46; Admin Dose 40 MG; Start 09/26/16 at 06:00 IV Flush (NS 10 ml) 10 ml PRN PRN IV IV PROTOCOL; Start 09/25/16 at 12:00 Spironolactone 50 mg 50 mg DAILY NGT Last administered on 10/01/16 09:14; Admin Dose 50 MG; Start 09/28/16 at 09:00 Vancomycin HCl 250 ml @ 125 mls/hr Q24H IVPB Last administered on 10/01/16 06 :46; Admin Dose 125 MLS/HR; Start 09/30/16 at 06:00 Dopamine HCl/ Dextrose 250 ml @ 6.053 mls/ hr TITRATE IV Last administered on 09/30/16 04:46; Admin Dose 6.053 MLS/HR; Start 09/29/16 at 11:00 Phenylephrine HCl 40 mg/Dextrose 500 ml @ 75 mls/hr TITRATE IV ; Start at 14:00 Caspofungin 50 mg/ Sodium Chloride 250 ml @ 250 mls/hr Q24H IVPB Last administered on 10/01/16 12:01; Admin Dose 250 MLS/HR; Start 10/01/16 at 12:00 Metronidazole (Flagyl 500 Mg (Pmx)) 100 ml @ 100 mls/hr Q8 IVPB Last administered on 10/01/16 15:18; Admin Dose 100 MLS/HR; Start 09/30/16 at 14:00 Furosemide 40 mg 40 mg Q8 IV Last administered on 10/01/16 14:02; Admin Dose 40 MG; Start 10/01/16 at 14:00 Fentanyl (Sublimaze) 100 ml @ 2.5 mls/hr TITRATE IV Last administered on 10:07; Admin Dose 2.5 MLS/HR; Start 10/01/16 at 09:30 YANETH VIDAL Oct 01, 2016 15:41
--- NOTE | 2016-10-01 17:09 | RADRPT ---
PROCEDURE: XR Chest. CLINICAL INDICATION: Shortness of breath. Post left thoracentesis. TECHNIQUE: Single frontal view. COMPARISON: 10/01/2016. FINDINGS: The endotracheal tube, nasogastric tube, right arm PICC line, right pigtail chest tube remain in sat isfactory position. There is no residual pneumothorax. There is no left pneumothorax following lef t thoracentesis. The heart is enlarged. There is calcification in the aorta consistent with atherosclerosis. There is no pleural effusion. There is mild patchy air space disease bilaterally, unchanged. IMPRESSION: 1. No right pneumothorax with chest tube noted. 2. No left pneumothorax following left thoracentesis. 3. No other change from 10/01/2016. RPTAT: QQ .Beto Cortes MD, MD Date Time Electronically viewed and signed by .Beto Cortes MD, MD on 10/01/2016 17:08 .R/
[2016-10-02] VITALS (87 sets, daily range): BP systolic 73–126; BP diastolic 46–110; PULSE 61–119; RESP 10–62
[2016-10-02] MEDS: FENTAnyl (DRIP) 1000 mcg/100mL 100 ML IV SCH (04:54)
[2016-10-02 05:30] LABS: ABNORMAL IP MESSAGE 1; BASOPHILS % 0.2 % (0.0-2.0); EOSINOPHILS # 0.1 10^3/ul (0.0-0.5); EOSINOPHILS % 0.6 % (0.0-7.0); HEMATOCRIT 23.9 % (37.0-47.0); LYMPHOCYTES # 0.4 10^3/ul (0.8-2.9); LYMPHOCYTES % 2.4 % (15.0-51.0); MEAN CORPUSCULAR HEMOGLOBIN 27.6 pg (29.0-33.0); MEAN CORPUSCULAR HGB CONC 33.5 g/dl (32.0-37.0); MEAN CORPUSCULAR VOLUME 82.4 fl (82.0-101.0); MONOCYTE # 0.5 10^3/ul (0.3-0.9); MONOCYTES % 2.7 % (0.0-11.0); PLATELET COUNT 113 10^3/UL (140-415); RED CELL DISTRIBUTION WIDTH 22.4 % (11.5-14.5); WHITE BLOOD COUNT 18.4 10^3/ul (4.8-10.8)
[2016-10-02 05:37] LABS: NEUTROPHILS % 92.6 % (39.0-77.0); POSITIVE DIFF @See below
[2016-10-02] MEDS: FUROSEMIDE 40 MG INJ IV SCH ×2 (05:44→17:38)
[2016-10-02] MEDS: MEROPENEM 500MG/50 ML (PMX) 50 ML IVPB SCH ×3 (05:44→21:44)
[2016-10-02] MEDS: metroNIDAZOLE 500 MG/NS (PMX) 100 ML IVPB SCH ×3 (05:44→21:54)
[2016-10-02] MEDS: PANTOPRAZOLE 40 MG INJ IV SCH (05:45)
[2016-10-02 05:46] LABS: CALCIUM 7.4 mg/dl (8.4-10.2); CREATININE 0.81 mg/dl (0.44-1.00); POTASSIUM 3.2 mmol/L (3.5-5.1)
[2016-10-02] MEDS: VANCOMYCIN 1 GM in NS 250 ML IVPB SCH (06:58)
[2016-10-02] MEDS: PROPOFOL 100 ML IV SCH (07:17)
[2016-10-02] MEDS ORDERED: POTASSIUM CHLORIDE 20 MEQ POWDER FOR ORAL SOLN GTB ONE (08:30)
--- NOTE | 2016-10-02 08:31 | PN ---
Date/Time of Note Date/Time of Note DATE: 10/02/16 TIME: 08:28 Assessment/Plan VTE Prophylaxis VTE Prophylaxis Intervention: other Lines/Catheters IV Catheter Type (from Nrsg): PICC Line Central line still needed: Yes Urinary Cath still in place: Yes Reason Cath still needed: other (indicate) Assessment/Plan Chief Complaint/Hosp Course Nonoliguric acute kidney injury. Etiology secondary ATN -Renal function has been improving with supportive care continue current treatment plan renally dose meds avoid nephrotoxins Hypernatremia Improved Continue free water flushes, Monitor serial sodium levels Hypokalemia secondary to diuretics Replete potassium chloride Aldactone 50 mg daily Monitor closely Volume overload/anasarca -Resuming her diuretic therapy increase Lasix to 40 IV q. 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 -Continue treatment plan -Follow-up with surgery Respiratory failure Patient reintubated Chest x-ray ABG reviewed Follow-up with pulmonary History of intracranial hemorrhage in the past status post SKIP TENDER shunt placement that has been stable over time -SKIP TENDER shunt was externalized during the surgery September 21, 2016 due to abdominal infection, per neurosurgical notes may need to be reconnected once patient stable versus removed Problems: Subjective 24 Hr Interval Summary Free Text/Dictation Patient seen and examined Remains critically ill Pressor support coming down Excellent urinary output Exam/Review of Systems Vital Signs Vitals Vital Signs Date Time Temp Pulse Resp B/P Pulse Ox O2 Delivery O2 Flow Rate FiO2 10/02/16 07:30 97.8 65 18 94/57 100 Mechanical Ventilator 10/02/16 05:15 40 Intake and Output 10/01/16 10/01/16 10/02/16 15:00 23:00 07:00 Intake Total 1585.00 ml 968.65 ml 712.59 ml Output Total 1081 ml 2745 ml 1238 ml Balance 504.00 ml -1776.35 ml -525.41 ml Exam HEENT: Head is normocephalic, NECK: Supple. HEART: Irregular LUNGS: Show diminished breath sounds at base. ABDOMEN: Soft, nontender to palpation without rebound or guarding. EXTREMITIES: Negative for clubbing, cyanosis. DERMATOLOGIC: No rashes. MUSCULOSKELETAL: No joint effusions, NEUROLOGIC: No change in exam. Results Result Diagram: 10/02/16 0400 10/02/16 0400 Results 24 hrs Laboratory Tests Test 10/01/16 13:30 10/02/16 04:00 Sodium Level 140 137 Potassium Level 3.4 L 3.2 L Chloride Level 95 L 94 L Carbon Dioxide Level 31 34 H Anion Gap 17 H 12 Blood Urea Nitrogen 22 H 23 H Creatinine 0.70 0.81 Glucose Level 163 114 # Calcium Level 7.8 L 7.4 L White Blood Count 18.4 H Red Blood Count 2.90 L Hemoglobin 8.0 L Hematocrit 23.9 L Mean Corpuscular Volume 82.4 Mean Corpuscular Hemoglobin 27.6 L Mean Corpuscular Hemoglobin Concent 33.5 Red Cell Distribution Width 22.4 H Platelet Count 113 #L Mean Platelet Volume Neutrophils % 92.6 H Lymphocytes % 2.4 L Monocytes % 2.7 Eosinophils % 0.6 Basophils % 0.2 Nucleated Red Blood Cells % 0.0 Neutrophils # 17.0 H Lymphocytes # 0.4 L Monocytes # 0.5 Eosinophils # 0.1 Basophils # 0.0 Nucleated Red Blood Cells # 0.0 Medications Medications Current Medications Morphine Sulfate (morphine) 2 mg Q4H PRN IV PAIN Last administered on 08:39; Admin Dose 2 MG; Start 09/15/16 at 23:30 Ondansetron HCl (Zofran Inj) 4 mg Q6H PRN IV NAUSEA AND/OR VOMITING Last administered on 09/26/16 09:23; Admin Dose 4 MG; Start 09/16/16 at 00:30 Acetaminophen (Tylenol Tab) 650 mg Q6H PRN PO PAIN LEVEL 1-3 OR FEVER Last administered on 09/30/16 01:22; Admin Dose 650 MG; Start 09/16/16 at 00:30 Polyethylene Glycol 17 gm 17 gm DAILY PO Last administered on 10/01/16 09:13; Admin Dose 17 GM; Start 09/20/16 at 11:00 Meropenem/Sodium Chloride 50 ml @ 200 mls/hr Q8 IVPB Last administered on 10/02 05:44; Admin Dose 200 MLS/HR; Start 09/20/16 at 22:00 Norepinephrine 16 mg/Dextrose 500 ml @ 1.87 mls/hr TITRATE IV Last administered on 10/01/16 14:05; Admin Dose 3.75 MLS/HR; Start 09/21/16 at 09:00 Propofol (Diprivan) 100 ml @ 1.671 mls/ hr Q12H IV Last administered on 07:17; Admin Dose 5.013 MLS/HR; Start 09/21/16 at 02:30 Acetaminophen/ Hydrocodone Bitart ([place] (5/325)) 1 tab Q4H PRN PO PAIN LEVEL 4 -7 Last administered on 09/28/16 21:20; Admin Dose 1 TAB; Start 09/21/16 at 15: 00 Acetaminophen/ Hydrocodone Bitart ([place] (5/325)) 2 tab Q4H PRN PO PAIN LEVEL 7 -10; Start 09/21/16 at 15:00 Hydromorphone HCl (Dilaudid) 0.5 mg Q2H PRN IV PAIN Last administered on 16:41; Admin Dose 0.5 MG; Start 09/21/16 at 15:00 Hydromorphone HCl (Dilaudid) 1 mg Q2H PRN IV PAIN Last administered on 09:12; Admin Dose 1 MG; Start 09/21/16 at 15:00 Docusate Sodium (Colace) 100 mg BID PRN PO CONSTIPATION; Start 09/21/16 at 15: 00 Enoxaparin Sodium (Lovenox) 40 mg DAILY SC ; Start 09/22/16 at 09:00; Status Future Hold Docusate Sodium (Colace Liquid Cup) 100 mg BID NGT Last administered on 22:12; Admin Dose 100 MG; Start 09/22/16 at 21:00 Pantoprazole (Protonix Iv) 40 mg DAILY@06 IV Last administered on 10/02/16 05: 45; Admin Dose 40 MG; Start 09/26/16 at 06:00 IV Flush (NS 10 ml) 10 ml PRN PRN IV IV PROTOCOL; Start 09/25/16 at 12:00 Spironolactone 50 mg 50 mg DAILY NGT Last administered on 10/01/16 09:14; Admin Dose 50 MG; Start 09/28/16 at 09:00 Vancomycin HCl 250 ml @ 125 mls/hr Q24H IVPB Last administered on 10/02/16 06 :58; Admin Dose 125 MLS/HR; Start 09/30/16 at 06:00 Dopamine HCl/ Dextrose 250 ml @ 6.053 mls/ hr TITRATE IV Last administered on 09/30/16 04:46; Admin Dose 6.053 MLS/HR; Start 09/29/16 at 11:00 Phenylephrine HCl 40 mg/Dextrose 500 ml @ 75 mls/hr TITRATE IV ; Start at 14:00 Caspofungin 50 mg/ Sodium Chloride 250 ml @ 250 mls/hr Q24H IVPB Last administered on 10/01/16 12:01; Admin Dose 250 MLS/HR; Start 10/01/16 at 12:00 Metronidazole (Flagyl 500 Mg (Pmx)) 100 ml @ 100 mls/hr Q8 IVPB Last administered on 10/02/16 05:44; Admin Dose 100 MLS/HR; Start 09/30/16 at 14:00 Furosemide 40 mg 40 mg Q8 IV Last administered on 10/02/16 05:44; Admin Dose 40 MG; Start 10/01/16 at 14:00 Fentanyl (Sublimaze) 100 ml @ 2.5 mls/hr TITRATE IV Last administered on 04:54; Admin Dose 5 MLS/HR; Start 10/01/16 at 09:30 KIRAN CASTILLO DO Oct 02, 2016 08:30
[2016-10-02] MEDS: POLYETHYLENE GLYCOL 17 GM PACKET PO SCH (08:51)
[2016-10-02] MEDS: SPIRONOLACTONE 50 MG TAB NGT SCH (08:51)
[2016-10-02] MEDS: DOCUSATE SODIUM 10 MG/ML (10ML CUP) NGT SCH ×2 (08:51→21:57)
[2016-10-02] MEDS ORDERED: METOLAZONE 5 MG TAB PO ONE (09:00)
--- NOTE | 2016-10-02 09:50 | CONS ---
Date/Time of Note Date/Time of Note DATE: 10/02/16 TIME: 09:40 Assessment/Plan Assessment/Plan Problems: (1) Hydrocephalus Comment: She should have shunt challenge, but given overall issues with plan for possible extubation today I would recommend holding off so as not to confound her extubation. After stabilized, she will need to remain in ICU and will plan clamping of externalized shunt with close neurological and CT follow-up. Consultation Date/Type/Reason Admit Date/Time Sep 15, 2016 at 21:35 Initial Consult Date 09/21/16 Type of Consultation: Neurosurgery Reason for Consultation Hydrocephalus 24 HR Interval Summary Free Text/Dictation Patient was reintubated. Now working toward re-extubation. Subjective hx not possible: pt non-verbal, pt critical Exam/Review of Systems Vital Signs Vitals Vital Signs Date Time Temp Pulse Resp B/P Pulse Ox O2 Delivery O2 Flow Rate FiO2 10/02/16 08:00 40 10/02/16 07:30 97.8 65 18 94/57 100 Mechanical Ventilator Intake and Output 10/01/16 10/01/16 10/02/16 15:00 23:00 07:00 Intake Total 1585.00 ml 968.65 ml 712.59 ml Output Total 1081 ml 2745 ml 1238 ml Balance 504.00 ml -1776.35 ml -525.41 ml Exam Constitutional: alert Neurological: other (Eyes open spontaneously and regards examiner. Moving purposefully, spontaneously bilaterally) Results I reviewed new CT c/w prior. ? 3rd ventricle 1-2mm wider, but she does not have ventricular enlargement overall. Could be that she had been overdraining before. Result Diagram: 10/02/16 0400 10/02/16 0400 Results 24 hrs Laboratory Tests Test 10/01/16 13:30 10/02/16 04:00 Sodium Level 140 137 Potassium Level 3.4 L 3.2 L Chloride Level 95 L 94 L Carbon Dioxide Level 31 34 H Anion Gap 17 H 12 Blood Urea Nitrogen 22 H 23 H Creatinine 0.70 0.81 Glucose Level 163 114 # Calcium Level 7.8 L 7.4 L White Blood Count 18.4 H Red Blood Count 2.90 L Hemoglobin 8.0 L Hematocrit 23.9 L Mean Corpuscular Volume 82.4 Mean Corpuscular Hemoglobin 27.6 L Mean Corpuscular Hemoglobin Concent 33.5 Red Cell Distribution Width 22.4 H Platelet Count 113 #L Mean Platelet Volume Neutrophils % 92.6 H Lymphocytes % 2.4 L Monocytes % 2.7 Eosinophils % 0.6 Basophils % 0.2 Nucleated Red Blood Cells % 0.0 Neutrophils # 17.0 H Lymphocytes # 0.4 L Monocytes # 0.5 Eosinophils # 0.1 Basophils # 0.0 Nucleated Red Blood Cells # 0.0 Medications Medications Current Medications Morphine Sulfate (morphine) 2 mg Q4H PRN IV PAIN Last administered on 08:39; Admin Dose 2 MG; Start 09/15/16 at 23:30 Ondansetron HCl (Zofran Inj) 4 mg Q6H PRN IV NAUSEA AND/OR VOMITING Last administered on 09/26/16 09:23; Admin Dose 4 MG; Start 09/16/16 at 00:30 Acetaminophen (Tylenol Tab) 650 mg Q6H PRN PO PAIN LEVEL 1-3 OR FEVER Last administered on 09/30/16 01:22; Admin Dose 650 MG; Start 09/16/16 at 00:30 Polyethylene Glycol 17 gm 17 gm DAILY PO Last administered on 10/02/16 08:51; Admin Dose 17 GM; Start 09/20/16 at 11:00 Meropenem/Sodium Chloride 50 ml @ 200 mls/hr Q8 IVPB Last administered on 10/02 05:44; Admin Dose 200 MLS/HR; Start 09/20/16 at 22:00 Norepinephrine 16 mg/Dextrose 500 ml @ 1.87 mls/hr TITRATE IV Last administered on 10/01/16 14:05; Admin Dose 3.75 MLS/HR; Start 09/21/16 at 09:00 Propofol (Diprivan) 100 ml @ 1.671 mls/ hr Q12H IV Last administered on 07:17; Admin Dose 5.013 MLS/HR; Start 09/21/16 at 02:30 Acetaminophen/ Hydrocodone Bitart ([place] (5/325)) 1 tab Q4H PRN PO PAIN LEVEL 4 -7 Last administered on 09/28/16 21:20; Admin Dose 1 TAB; Start 09/21/16 at 15: 00 Acetaminophen/ Hydrocodone Bitart ([place] (5/325)) 2 tab Q4H PRN PO PAIN LEVEL 7 -10; Start 09/21/16 at 15:00 Hydromorphone HCl (Dilaudid) 0.5 mg Q2H PRN IV PAIN Last administered on 16:41; Admin Dose 0.5 MG; Start 09/21/16 at 15:00 Hydromorphone HCl (Dilaudid) 1 mg Q2H PRN IV PAIN Last administered on 09:12; Admin Dose 1 MG; Start 09/21/16 at 15:00 Docusate Sodium (Colace) 100 mg BID PRN PO CONSTIPATION; Start 09/21/16 at 15: 00 Enoxaparin Sodium (Lovenox) 40 mg DAILY SC ; Start 09/22/16 at 09:00; Status Future Hold Docusate Sodium (Colace Liquid Cup) 100 mg BID NGT Last administered on 08:51; Admin Dose 100 MG; Start 09/22/16 at 21:00 Pantoprazole (Protonix Iv) 40 mg DAILY@06 IV Last administered on 10/02/16 05: 45; Admin Dose 40 MG; Start 09/26/16 at 06:00 IV Flush (NS 10 ml) 10 ml PRN PRN IV IV PROTOCOL; Start 09/25/16 at 12:00 Spironolactone 50 mg 50 mg DAILY NGT Last administered on 10/02/16 08:51; Admin Dose 50 MG; Start 09/28/16 at 09:00 Vancomycin HCl 250 ml @ 125 mls/hr Q24H IVPB Last administered on 10/02/16 06 :58; Admin Dose 125 MLS/HR; Start 09/30/16 at 06:00 Dopamine HCl/ Dextrose 250 ml @ 6.053 mls/ hr TITRATE IV Last administered on 09/30/16 04:46; Admin Dose 6.053 MLS/HR; Start 09/29/16 at 11:00 Phenylephrine HCl 40 mg/Dextrose 500 ml @ 75 mls/hr TITRATE IV ; Start at 14:00 Caspofungin 50 mg/ Sodium Chloride 250 ml @ 250 mls/hr Q24H IVPB Last administered on 10/01/16 12:01; Admin Dose 250 MLS/HR; Start 7/25/17 at 12:00 Metronidazole (Flagyl 500 Mg (Pmx)) 100 ml @ 100 mls/hr Q8 IVPB Last administered on 10/02/16 05:44; Admin Dose 100 MLS/HR; Start 09/30/16 at 14:00 Furosemide 40 mg 40 mg Q8 IV Last administered on 10/02/16 05:44; Admin Dose 40 MG; Start 10/01/16 at 14:00 Fentanyl (Sublimaze) 100 ml @ 2.5 mls/hr TITRATE IV Last administered on 04:54; Admin Dose 5 MLS/HR; Start 10/01/16 at 09:30 NIRAJ LANDRY MD Oct 02, 2016 09:50
--- NOTE | 2016-10-02 10:26 | CONS ---
DATE OF ADMISSION: 09/15/2016 DATE OF CONSULTATION: 09/18/2016 REASON FOR CONSULTATION: Antibiotic management. HISTORY OF THE PRESENT ILLNESS: Vicky Yanez is a 70-year- old female with numerous problems, who was transferred from [facility] complaining of abdominal pain. She is now 3 days postoperative for placement of a PPL drain for diverticulitis with intramural access, which was done at [facility], who was coming from PPL catheter on the morning of 09/15/2016 with worsening abdominal pain and non-bilious vomiting. The pain was moderate to severe, throughout the abdomen and nonradiating, without fever, no dysuria, Last bowel movement was earlier that day. 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 The patient was on Levaquin and Flagyl. Dr. Osvaldo Maldonado was called, he noted that she is allergic to Penicillin. He noted that the abdomen was soft, mildly tender to palpation and left lower quadrant. No evidence of peroneal signs or guarding. Left lower pelvic drain site with slight amount of stool within the dressing and appeared to be coming around the drain itself. A small amount of purulent from the drain bag. Her white count was 4.2, hemoglobin 9.7 and platelet count 472,000. He saw the patient again on 09/17/2016 and he noted that she had medical history status post MOUSE BREEDER shunt placement many years ago, which she previously did not remember report, and she presented with a sigmoid colon abscess and pericolonic abscess, which seemed to be a complication of diverticulitis, status post- interventional radiology drainage on 09/09/2016, with removal of 20 mL of pus, placement of a 10-Sami pigtail catheter at [facility] and discharged 09/12/2016. She presented to the ER at [facility] on 09/15/2016. CT scan was done showing adequate placement of the percutaneous drain near the sigmoid colon. Incidental finding of tail of the MOUSE BREEDER shunt in the pelvis new from the right upper quadrant position of the same drain in the CT scan done at [facility]. The patient had up sizing of the drain to a 12-Sami pigtail on 09/17/2016. Communication with colon demonstrated no obvious re-communication to the peritoneal space. Urine culture is negative. White count is 3.7 today. Hemoglobin 10.6, hematocrit 33.4, platelet count 504,000. Microbiology as noted. Catheter change successful fluoroscopic guided pelvic abscess drainage catheter replacement. PAST MEDICAL HISTORY: Operations as outline. SOCIAL HISTORY: She does not smoke, drink or abuse drugs. ALLERGIES: TO PENICILLIN. NONE TO SULFA OR FOOD. FAMILY HISTORY: Noncontributory. MEDICATIONS: The patient is on Cipro and Flagyl. Per chart review. PHYSICAL EXAMINATION: GENERAL: The patient is a frail, elderly appearing female who is alert, responsive, in no acute distress. VITAL SIGNS: Stable. Afebrile. SKIN: Without generalized rash. HEENT: Within normal limits. NECK: Supple. Lymph nodes not palpable. HEART: Without murmur or gallop. LUNGS: Decreased breath sounds at the bases. ABDOMEN: Soft and nontender. She has a pigtail catheter in the left lower quadrant. There is no organosplenomegaly or masses. She has some tenderness to palpation of the abdomen on the pigtail catheter. EXTREMITIES: Without cyanosis, clubbing or edema. RECTAL: Exam is deferred. GENITALIA: Exam is deferred. NEUROLOGIC: No focal neurological abnormalities. IMPRESSION AND PLAN: The patient presents with drainage around the pigtail catheter, the catheter was upsized and she is no longer having significant drainage. She is on Cipro and Flagyl. We will continue her on this regiment. I will dictate my findings to the hospitalist and to Dr. Osvaldo Maldonado. Dictated By: Ozzy Sevilla MD JD/rhina/tegan /Document#: [id number]
--- NOTE | 2016-10-02 11:15 | CONS ---
Date/Time of Note Date/Time of Note DATE: 10/02/16 TIME: 11:13 Consult Date/Type/Reason Admit Date/Time Sep 15, 2016 at 21:35 Initial Consult Date 09/21/16 Type of Consultation: Pulmonary ICU Subjective Patient underwent thoracentesis of left lung yesterday without complication. Is awake alert this morning significant neuromuscular weakness. Objective Vital Signs Date Time Temp Pulse Resp B/P Pulse Ox O2 Delivery O2 Flow Rate FiO2 10/02/16 10:00 68 16 102/60 100 Mechanical Ventilator 10/02/16 08:00 40 10/02/16 07:30 97.8 Intake and Output 10/01/16 10/01/16 10/02/16 14:59 22:59 06:59 Intake Total 1585.00 ml 991.72 ml 749.52 ml Output Total 881 ml 3020 ml 1363 ml Balance 704.00 ml -2028.28 ml -613.48 ml Exam PHYSICAL EXAMINATION GENERAL: Chronically ill-appearing lady intubated on mechanical ventilation appears comfortable at rest VITAL SIGNS: see below. HEENT: Pupils equal, round, and reactive to light. CARDIAC: S1, S2, 1/6 systolic ejection murmur CHEST: Diminished air entry bilaterally. Chest tube placed in left lung. ABDOMEN: Mildly distended. Bowel sounds present no guarding or rebound EXTREMITIES: No cyanosis, clubbing edema +1 NEUROLOGIC: Generalized weakness Results/Medications Result Diagram: 10/02/16 0400 10/02/16 0400 Results 24 hrs Laboratory Tests Test 10/01/16 13:30 10/02/16 04:00 Sodium Level 140 137 Potassium Level 3.4 L 3.2 L Chloride Level 95 L 94 L Carbon Dioxide Level 31 34 H Anion Gap 17 H 12 Blood Urea Nitrogen 22 H 23 H Creatinine 0.70 0.81 Glucose Level 163 114 # Calcium Level 7.8 L 7.4 L White Blood Count 18.4 H Red Blood Count 2.90 L Hemoglobin 8.0 L Hematocrit 23.9 L Mean Corpuscular Volume 82.4 Mean Corpuscular Hemoglobin 27.6 L Mean Corpuscular Hemoglobin Concent 33.5 Red Cell Distribution Width 22.4 H Platelet Count 113 #L Mean Platelet Volume Neutrophils % 92.6 H Lymphocytes % 2.4 L Monocytes % 2.7 Eosinophils % 0.6 Basophils % 0.2 Nucleated Red Blood Cells % 0.0 Neutrophils # 17.0 H Lymphocytes # 0.4 L Monocytes # 0.5 Eosinophils # 0.1 Basophils # 0.0 Nucleated Red Blood Cells # 0.0 Medications Current Medications Morphine Sulfate (morphine) 2 mg Q4H PRN IV PAIN Last administered on 08:39; Admin Dose 2 MG; Start 09/15/16 at 23:30 Ondansetron HCl (Zofran Inj) 4 mg Q6H PRN IV NAUSEA AND/OR VOMITING Last administered on 09/26/16 09:23; Admin Dose 4 MG; Start 09/16/16 at 00:30 Acetaminophen (Tylenol Tab) 650 mg Q6H PRN PO PAIN LEVEL 1-3 OR FEVER Last administered on 09/30/16 01:22; Admin Dose 650 MG; Start 09/16/16 at 00:30 Polyethylene Glycol 17 gm 17 gm DAILY PO Last administered on 10/02/16 08:51; Admin Dose 17 GM; Start 09/20/16 at 11:00 Meropenem/Sodium Chloride 50 ml @ 200 mls/hr Q8 IVPB Last administered on 10/02 05:44; Admin Dose 200 MLS/HR; Start 09/20/16 at 22:00 Norepinephrine 16 mg/Dextrose 500 ml @ 1.87 mls/hr TITRATE IV Last administered on 10/01/16 14:05; Admin Dose 3.75 MLS/HR; Start 09/21/16 at 09:00 Propofol (Diprivan) 100 ml @ 1.671 mls/ hr Q12H IV Last administered on 07:17; Admin Dose 5.013 MLS/HR; Start 09/21/16 at 02:30 Acetaminophen/ Hydrocodone Bitart ([place] (5/325)) 1 tab Q4H PRN PO PAIN LEVEL 4 -7 Last administered on 09/28/16 21:20; Admin Dose 1 TAB; Start 09/21/16 at 15: 00 Acetaminophen/ Hydrocodone Bitart ([place] (5/325)) 2 tab Q4H PRN PO PAIN LEVEL 7 -10; Start 09/21/16 at 15:00 Hydromorphone HCl (Dilaudid) 0.5 mg Q2H PRN IV PAIN Last administered on 16:41; Admin Dose 0.5 MG; Start 09/21/16 at 15:00 Hydromorphone HCl (Dilaudid) 1 mg Q2H PRN IV PAIN Last administered on 09:12; Admin Dose 1 MG; Start 09/21/16 at 15:00 Docusate Sodium (Colace) 100 mg BID PRN PO CONSTIPATION; Start 09/21/16 at 15: 00 Enoxaparin Sodium (Lovenox) 40 mg DAILY SC ; Start 09/22/16 at 09:00; Status Future Hold Docusate Sodium (Colace Liquid Cup) 100 mg BID NGT Last administered on 08:51; Admin Dose 100 MG; Start 09/22/16 at 21:00 Pantoprazole (Protonix Iv) 40 mg DAILY@06 IV Last administered on 10/02/16 05: 45; Admin Dose 40 MG; Start 09/26/16 at 06:00 IV Flush (NS 10 ml) 10 ml PRN PRN IV IV PROTOCOL; Start 09/25/16 at 12:00 Spironolactone 50 mg 50 mg DAILY NGT Last administered on 10/02/16 08:51; Admin Dose 50 MG; Start 09/28/16 at 09:00 Vancomycin HCl 250 ml @ 125 mls/hr Q24H IVPB Last administered on 10/02/16 06 :58; Admin Dose 125 MLS/HR; Start 09/30/16 at 06:00 Dopamine HCl/ Dextrose 250 ml @ 6.053 mls/ hr TITRATE IV Last administered on 09/30/16 04:46; Admin Dose 6.053 MLS/HR; Start 09/29/16 at 11:00 Phenylephrine HCl 40 mg/Dextrose 500 ml @ 75 mls/hr TITRATE IV ; Start at 14:00 Caspofungin 50 mg/ Sodium Chloride 250 ml @ 250 mls/hr Q24H IVPB Last administered on 10/01/16 12:01; Admin Dose 250 MLS/HR; Start 10/01/16 at 12:00 Metronidazole (Flagyl 500 Mg (Pmx)) 100 ml @ 100 mls/hr Q8 IVPB Last administered on 10/02/16 05:44; Admin Dose 100 MLS/HR; Start 09/30/16 at 14:00 Furosemide 40 mg 40 mg Q8 IV Last administered on 10/02/16 05:44; Admin Dose 40 MG; Start 10/01/16 at 14:00 Fentanyl (Sublimaze) 100 ml @ 2.5 mls/hr TITRATE IV Last administered on 04:54; Admin Dose 5 MLS/HR; Start 10/01/16 at 09:30 Assessment/Plan Chief Complaint/Hosp Course Assessment 1. Severe sepsis and hypoxemic respiratory failure. No evidence of worsening pneumothorax on the right following chest tube placement. Status post thoracentesis of left lung. Currently the failed CPAP weaning trial. Patient did not trigger spontaneous respiration. 2. Possible infected DUMP GRADER shunt. Status post externalization 3. Status post bowel resection. 4. Severe sepsis with metabolic acidosis clinically improved 5. Postop anemia, hemoglobin 8.0 remains stable. 6. Electrolyte abnormalities hyperkalemia and hypernatremia Plan 1. Continue mechanical ventilation. Failed CPAP trial this morning will attempt SIMV. 2.' neurosurgery and general surgery recommendations, 3. Continue broad-spectrum antibiotics 4. Continue chest tube to suction. Once she is off mechanical ventilation we will attempt removal of chest tube with waterseal and clamping. 5. DVT and GI prophylaxis 6. Renal recommendations regarding electrolyte abnormalities, consider increasing diuretics Discussed with staff Critical care time 40 minutes. Discussed with surgery and neurosurgery. Problems: DAMIEN GUADARRAMA MD, [facility] Oct 02, 2016 11:15
[2016-10-02] MEDS: CASPOFUNGIN 50 MG in SOD CHLORIDE 0.9% 250 ML IVPB SCH (11:42)
--- NOTE | 2016-10-02 13:07 | CONS ---
Date/Time of Note Date/Time of Note DATE: 10/02/16 TIME: 13:04 Assessment/Plan Assessment/Plan Chief Complaint/Hosp Course Acute respiratory failure: Reintubated 09/29 after failing BiPAP. Remains on vent Acute diastolic heart failure: Secondary to volume resuscitation in setting of low albumin and third spacing. Significant anasarca again. May need to slow down diuresis with low albumin as JVP lower today and still on pressors Paroxysmal afib: converted on amiodarone. Converted back to afib on dopamine but now off and back in sinus Septic shock: from intraabdominal abscess and possible infected MUFFLER TENDER shunt. S/p sigmoid colectomy. Was off pressors but transiently required pressor support and 09/30 after reintubation and on low dose now. Tension pneumothorax: due to thoracentesis. s/p chest tube 09/30 NSTEMI: Trop mildly elevated likely type II in the setting of septic shock. Echo from 09/18 showed normal EF and no significant valvular disease. Repeat trop normalized Diverticulitis complicated by abscess s/p sigmoid colectomy and now colostomy Coagulopathy: ?DIC. Resolved h/o ICH with MUFFLER TENDER shunt -decrease lasix to 40mg IV BID for slower diuresis as JVP normal today even on vent suggesting intravascular euvolemia though obviously total body overload. May also explain need for low dose pressor support -wean levophed -hold metoprolol Problems: Consultation Date/Type/Reason Admit Date/Time Sep 15, 2016 at 21:35 Initial Consult Date 09/21/16 Type of Consultation: Cardiology 24 HR Interval Summary Free Text/Dictation s/p thoracentesis again yesterday. Plan for vent weaning today. On low dose levophed. Diuresed very well. Exam/Review of Systems Vital Signs Vitals Vital Signs Date Time Temp Pulse Resp B/P Pulse Ox O2 Delivery O2 Flow Rate FiO2 10/02/16 12:15 107 19 115/70 100 Mechanical Ventilator 10/02/16 12:00 98.4 10/02/16 08:00 40 Intake and Output 10/01/16 10/01/16 10/02/16 15:00 23:00 07:00 Intake Total 1585.00 ml 968.65 ml 712.59 ml Output Total 1081 ml 2745 ml 1238 ml Balance 504.00 ml -1776.35 ml -525.41 ml Exam Constitutional: alert Head: atraumatic, normocephalic Neck: jvd (7cm) Respiratory: crackles/rales, diminished breath sounds, No clear to auscultation Cardiovascular: edema (2+), regular rate and rhythm, No systolic murmur Gastrointestinal: non-tender, soft Musculoskeletal: No nl extremities to inspection Results Result Diagram: 10/02/16 0400 10/02/16 0400 Results 24 hrs Laboratory Tests Test 10/01/16 13:30 10/02/16 04:00 Sodium Level 140 137 Potassium Level 3.4 L 3.2 L Chloride Level 95 L 94 L Carbon Dioxide Level 31 34 H Anion Gap 17 H 12 Blood Urea Nitrogen 22 H 23 H Creatinine 0.70 0.81 Glucose Level 163 114 # Calcium Level 7.8 L 7.4 L White Blood Count 18.4 H Red Blood Count 2.90 L Hemoglobin 8.0 L Hematocrit 23.9 L Mean Corpuscular Volume 82.4 Mean Corpuscular Hemoglobin 27.6 L Mean Corpuscular Hemoglobin Concent 33.5 Red Cell Distribution Width 22.4 H Platelet Count 113 #L Mean Platelet Volume Neutrophils % 92.6 H Lymphocytes % 2.4 L Monocytes % 2.7 Eosinophils % 0.6 Basophils % 0.2 Nucleated Red Blood Cells % 0.0 Neutrophils # 17.0 H Lymphocytes # 0.4 L Monocytes # 0.5 Eosinophils # 0.1 Basophils # 0.0 Nucleated Red Blood Cells # 0.0 Medications Medications Current Medications Morphine Sulfate (morphine) 2 mg Q4H PRN IV PAIN Last administered on 08:39; Admin Dose 2 MG; Start 09/15/16 at 23:30 Ondansetron HCl (Zofran Inj) 4 mg Q6H PRN IV NAUSEA AND/OR VOMITING Last administered on 09/26/16 09:23; Admin Dose 4 MG; Start 09/16/16 at 00:30 Acetaminophen (Tylenol Tab) 650 mg Q6H PRN PO PAIN LEVEL 1-3 OR FEVER Last administered on 09/30/16 01:22; Admin Dose 650 MG; Start 09/16/16 at 00:30 Polyethylene Glycol 17 gm 17 gm DAILY PO Last administered on 10/02/16 08:51; Admin Dose 17 GM; Start 09/20/16 at 11:00 Meropenem/Sodium Chloride 50 ml @ 200 mls/hr Q8 IVPB Last administered on 10/02 05:44; Admin Dose 200 MLS/HR; Start 09/20/16 at 22:00 Norepinephrine 16 mg/Dextrose 500 ml @ 1.87 mls/hr TITRATE IV Last administered on 10/01/16 14:05; Admin Dose 3.75 MLS/HR; Start 09/21/16 at 09:00 Propofol (Diprivan) 100 ml @ 1.671 mls/ hr Q12H IV Last administered on 07:17; Admin Dose 5.013 MLS/HR; Start 09/21/16 at 02:30 Acetaminophen/ Hydrocodone Bitart ([place] (5/325)) 1 tab Q4H PRN PO PAIN LEVEL 4 -7 Last administered on 09/28/16 21:20; Admin Dose 1 TAB; Start 09/21/16 at 15: 00 Acetaminophen/ Hydrocodone Bitart ([place] (5/325)) 2 tab Q4H PRN PO PAIN LEVEL 7 -10; Start 09/21/16 at 15:00 Hydromorphone HCl (Dilaudid) 0.5 mg Q2H PRN IV PAIN Last administered on 16:41; Admin Dose 0.5 MG; Start 09/21/16 at 15:00 Hydromorphone HCl (Dilaudid) 1 mg Q2H PRN IV PAIN Last administered on 09:12; Admin Dose 1 MG; Start 09/21/16 at 15:00 Docusate Sodium (Colace) 100 mg BID PRN PO CONSTIPATION; Start 09/21/16 at 15: 00 Enoxaparin Sodium (Lovenox) 40 mg DAILY SC ; Start 09/22/16 at 09:00; Status Future Hold Docusate Sodium (Colace Liquid Cup) 100 mg BID NGT Last administered on 08:51; Admin Dose 100 MG; Start 09/22/16 at 21:00 Pantoprazole (Protonix Iv) 40 mg DAILY@06 IV Last administered on 10/02/16 05: 45; Admin Dose 40 MG; Start 09/26/16 at 06:00 IV Flush (NS 10 ml) 10 ml PRN PRN IV IV PROTOCOL; Start 09/25/16 at 12:00 Spironolactone 50 mg 50 mg DAILY NGT Last administered on 10/02/16 08:51; Admin Dose 50 MG; Start 09/28/16 at 09:00 Vancomycin HCl 250 ml @ 125 mls/hr Q24H IVPB Last administered on 10/02/16 06 :58; Admin Dose 125 MLS/HR; Start 09/30/16 at 06:00 Dopamine HCl/ Dextrose 250 ml @ 6.053 mls/ hr TITRATE IV Last administered on 09/30/16 04:46; Admin Dose 6.053 MLS/HR; Start 09/29/16 at 11:00 Phenylephrine HCl 40 mg/Dextrose 500 ml @ 75 mls/hr TITRATE IV ; Start at 14:00 Caspofungin 50 mg/ Sodium Chloride 250 ml @ 250 mls/hr Q24H IVPB Last administered on 10/02/16 11:42; Admin Dose 250 MLS/HR; Start 10/01/16 at 12:00 Metronidazole 100 ml @ 100 mls/hr Q8 IVPB Last administered on 10/02/16 05:44 ; Admin Dose 100 MLS/HR; Start 09/30/16 at 14:00 Fentanyl (Sublimaze) 100 ml @ 2.5 mls/hr TITRATE IV Last administered on 04:54; Admin Dose 5 MLS/HR; Start 10/01/16 at 09:30 Furosemide (Lasix) 40 mg BID IV ; Start 10/02/16 at 21:00; Status GUSTAVO WANG Oct 02, 2016 13:07
--- NOTE | 2016-10-02 13:32 | PN ---
Date/Time of Note Date/Time of Note DATE: 10/02/16 TIME: 13:31 Assessment/Plan VTE Prophylaxis VTE Prophylaxis Intervention: LMWH Assessment/Plan Chief Complaint/Hosp Course 1. 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 Severe sepsis with systemic shock and organ dysfunction, on vancomycin/ meropenem/flagyl/caspfungin 3. Respiratory failure-patient reintubated, follow up with pulmonology 4. Mild troponin elevation likely type 2 from sepsis, stable 5. Acute transaminitis 2/2 shock liver: resolved 6. History of intracranial hemorrhage in the past status post MINE CAR DISPATCHER shunt placement that has been stable over time * MINE CAR DISPATCHER shunt was externalized during the surgery September 21, 2016 due to abdominal infection, per neurosurgical notes may need to be reconnected once patient stable versus removed 7. Hypernatremia likely secondary to #1: improved 8. Severe coagulopathy also as a result of #1: improved 9. Iron deficiency hypochromic anemia on iron infusion therapy 10. Diffuse anasarca as well as bilateral pleural effusions likely associated hypoalbuminemia 11. Bilateral pneumonia with vascular congestion concerning for ARDS, on vent, follow up with pulmonology 12. Acute renal insufficiency, reolved 13. Thrombocytopenia, sepsis related, follow up with PLT 14. Pleural effusion, thoracentesis per pulmonology 15. DVT prophylaxis: lovenox 16. Critical care time: 45 minutes Problems: Subjective 24 Hr Interval Summary Subjective hx not possible: pt non-verbal Exam/Review of Systems Vital Signs Vitals Vital Signs Date Time Temp Pulse Resp B/P Pulse Ox O2 Delivery O2 Flow Rate FiO2 10/02/16 13:15 89 19 105/53 100 Mechanical Ventilator 10/02/16 12:00 98.4 10/02/16 08:00 40 Intake and Output 10/01/16 10/01/16 10/02/16 15:00 23:00 07:00 Intake Total 1585.00 ml 968.65 ml 712.59 ml Output Total 1081 ml 2745 ml 1238 ml Balance 504.00 ml -1776.35 ml -525.41 ml Exam ENMT: intubated Respiratory: clear to auscultation Cardiovascular: regular rate and rhythm Gastrointestinal: soft, No distended Musculoskeletal: nl extremities to inspection Results Result Diagram: 10/02/1639910/02/16 0400 Results 24 hrs Laboratory Tests Test 10/02/16 04:00 White Blood Count 18.4 H Red Blood Count 2.90 L Hemoglobin 8.0 L Hematocrit 23.9 L Mean Corpuscular Volume 82.4 Mean Corpuscular Hemoglobin 27.6 L Mean Corpuscular Hemoglobin Concent 33.5 Red Cell Distribution Width 22.4 H Platelet Count 113 #L Mean Platelet Volume Neutrophils % 92.6 H Lymphocytes % 2.4 L Monocytes % 2.7 Eosinophils % 0.6 Basophils % 0.2 Nucleated Red Blood Cells % 0.0 Neutrophils # 17.0 H Lymphocytes # 0.4 L Monocytes # 0.5 Eosinophils # 0.1 Basophils # 0.0 Nucleated Red Blood Cells # 0.0 Sodium Level 137 Potassium Level 3.2 L Chloride Level 94 L Carbon Dioxide Level 34 H Anion Gap 12 Blood Urea Nitrogen 23 H Creatinine 0.81 Glucose Level 114 # Calcium Level 7.4 L Medications Medications Current Medications Morphine Sulfate (morphine) 2 mg Q4H PRN IV PAIN Last administered on 08:39; Admin Dose 2 MG; Start 09/15/16 at 23:30 Ondansetron HCl (Zofran Inj) 4 mg Q6H PRN IV NAUSEA AND/OR VOMITING Last administered on 09/26/16 09:23; Admin Dose 4 MG; Start 09/16/16 at 00:30 Acetaminophen (Tylenol Tab) 650 mg Q6H PRN PO PAIN LEVEL 1-3 OR FEVER Last administered on 09/30/16 01:22; Admin Dose 650 MG; Start 09/16/16 at 00:30 Polyethylene Glycol 17 gm 17 gm DAILY PO Last administered on 10/02/16 08:51; Admin Dose 17 GM; Start 09/20/16 at 11:00 Meropenem/Sodium Chloride 50 ml @ 200 mls/hr Q8 IVPB Last administered on 10/02 05:44; Admin Dose 200 MLS/HR; Start 09/20/16 at 22:00 Norepinephrine 16 mg/Dextrose 500 ml @ 1.87 mls/hr TITRATE IV Last administered on 10/01/16 14:05; Admin Dose 3.75 MLS/HR; Start 09/21/16 at 09:00 Propofol (Diprivan) 100 ml @ 1.671 mls/ hr Q12H IV Last administered on 07:17; Admin Dose 5.013 MLS/HR; Start 09/21/16 at 02:30 Acetaminophen/ Hydrocodone Bitart ([place] (5/325)) 1 tab Q4H PRN PO PAIN LEVEL 4 -7 Last administered on 09/28/16 21:20; Admin Dose 1 TAB; Start 09/21/16 at 15: 00 Acetaminophen/ Hydrocodone Bitart ([place] (5/325)) 2 tab Q4H PRN PO PAIN LEVEL 7 -10; Start 09/21/16 at 15:00 Hydromorphone HCl (Dilaudid) 0.5 mg Q2H PRN IV PAIN Last administered on 16:41; Admin Dose 0.5 MG; Start 09/21/16 at 15:00 Hydromorphone HCl (Dilaudid) 1 mg Q2H PRN IV PAIN Last administered on 09:12; Admin Dose 1 MG; Start 09/21/16 at 15:00 Docusate Sodium (Colace) 100 mg BID PRN PO CONSTIPATION; Start 09/21/16 at 15: 00 Enoxaparin Sodium (Lovenox) 40 mg DAILY SC ; Start 09/22/16 at 09:00; Status Future Hold Docusate Sodium (Colace Liquid Cup) 100 mg BID NGT Last administered on 08:51; Admin Dose 100 MG; Start 09/22/16 at 21:00 Pantoprazole (Protonix Iv) 40 mg DAILY@06 IV Last administered on 10/02/16 05: 45; Admin Dose 40 MG; Start 09/26/16 at 06:00 IV Flush (NS 10 ml) 10 ml PRN PRN IV IV PROTOCOL; Start 09/25/16 at 12:00 Spironolactone 50 mg 50 mg DAILY NGT Last administered on 10/02/16 08:51; Admin Dose 50 MG; Start 09/28/16 at 09:00 Vancomycin HCl 250 ml @ 125 mls/hr Q24H IVPB Last administered on 10/02/16 06 :58; Admin Dose 125 MLS/HR; Start 09/30/16 at 06:00 Dopamine HCl/ Dextrose 250 ml @ 6.053 mls/ hr TITRATE IV Last administered on 09/30/16 04:46; Admin Dose 6.053 MLS/HR; Start 09/29/16 at 11:00 Phenylephrine HCl 40 mg/Dextrose 500 ml @ 75 mls/hr TITRATE IV ; Start at 14:00 Caspofungin 50 mg/ Sodium Chloride 250 ml @ 250 mls/hr Q24H IVPB Last administered on 10/02/16 11:42; Admin Dose 250 MLS/HR; Start 10/01/16 at 12:00 Metronidazole 100 ml @ 100 mls/hr Q8 IVPB Last administered on 10/02/16 13:20 ; Admin Dose 100 MLS/HR; Start 09/30/16 at 14:00 Fentanyl (Sublimaze) 100 ml @ 2.5 mls/hr TITRATE IV Last administered on 04:54; Admin Dose 5 MLS/HR; Start 10/01/16 at 09:30 DALE RODARTE Oct 02, 2016 13:32
--- NOTE | 2016-10-02 14:19 | CONS ---
Date/Time of Note Date/Time of Note DATE: 10/02/16 TIME: 14:16 Assessment/Plan Assessment/Plan Chief Complaint/Hosp Course ID PROGRESS NOTE TOTAL ABX DAY # => VANCO IV + MERREM + FLAGYL #3 + Cancidas #3 24H INTERVAL SUMMARY * Resting comfortably on the Vent, calm, moves BUEXT, Noncommunicative orally intubated/vented => Re-intubated 09/29 * No fevers, WBC down to 19.4--> today 18.4 n * s/p CT 09/30 * CT ABD/PEL: Free air slight decrease in pelvic free fluid pelvic pigtail catheter in place no definite new drainable fluid collection. Increase in bilateral pleural effusions and nodular lung infiltrates * MICRO: 09/23/16 BODY FLUID CULTURE Final Organism 1 ENTEROCOCCUS SPECIES Organism 2 COAGULASE NEGATIVE STAPH Organism 3 ALPHA HEMOLYTIC STREP SPP . VIRIDANS GROUP * 10/02/16 0400 10/02/16 0400 EXAM: 70 yo F orally intubated on the Vent, no fevers HEENT: ETT-> Secure to Vent Neck: trachea midline. Heart: S1, S2 CXT: chest rise symmetrical breath sounds clear, diminished basis. ABD: Soft, (+)drain tannish color liquid Extremities without cyanosis, (+) edema x4 ID ASSESSMENT 70 yo F w/PMHx ICH and BITUMASTIC APPLIER shunt admit with: 1. Sepsis w/shock back on pressors, persistent lactic acidosis => ABX adjusted yesterday w/Diflucan change to Cancidas + addition Flagyl * leukocytosis improved 2. s/p Perforated sigmoid colon w/abscess * => POD# -> s/p 09/21/16 OPERATION:1. Sigmoid colectomy with performance of end colostomy (Reid's procedure), w/Lysis of adhesions. * S/p IR drainage 09/09/16 with removal of 20 cc pus and placement of a 10 Fr. pigtail catheter at [facility]. * s/p upsizing of drain to 12 Fr pigtail on 09/17/16 * Status post prior hysterectomy and bilateral salpingo-oophorectomy through Pfannenstiel incision 4. POD # ->S/P 09/21/16 Externalization of BITUMASTIC APPLIER shunt. INDICATION: Possible BITUMASTIC APPLIER shunt infection, hx of Hydrocephalus, BITUMASTIC APPLIER shunt, abdominal abscess 5. Acute respiratory failure -> orally RE-intubated 09/29 after failed prior extubation to BIPAP 6. CHF w/elevated BNP => (+)Anasarca w/Pleural effusions s/p CT drain 09/30 7. HCAP * CT 09/30 THORA BODY FLUID CULTURE Preliminary No growth after 1 day 8. Pancytopenia - sepsis 9. Coagulopathy w/thrombocytopenia 10. (+)Troponin elevation likely type II in the setting of septic shock. Echo from 09/18 showed normal EF and no significant valvular disease. (-)MRSA Nares screen INVASIVES: PICC (09/25/16) , ETT, NGT, VPS, FC, intra-abdominal drainage catheters ABX ALLERGY: PCN CURRENT ABX: # => VANCO IV + MERREM + FLAGYL #3 + Cancidas #3 ID RECOMMENDATIONS 1. Continue current broad spectrum IV ABX coverage 2. Follow Neuro/GI surgery/Cards/Pulm recs 3. Respiratory Cx in am -- post Re-Intubation => PENDING . . Problems: Consultation Date/Type/Reason Admit Date/Time Sep 15, 2016 at 21:35 Initial Consult Date 09/21/16 Type of Consultation: ID Exam/Review of Systems Vital Signs Vitals Vital Signs Date Time Temp Pulse Resp B/P Pulse Ox O2 Delivery O2 Flow Rate FiO2 10/02/16 13:15 89 19 105/53 100 Mechanical Ventilator 10/02/16 12:00 40 10/02/16 12:00 98.4 Intake and Output 10/01/16 10/01/16 10/02/16 15:00 23:00 07:00 Intake Total 1585.00 ml 968.65 ml 712.59 ml Output Total 1081 ml 2745 ml 1238 ml Balance 504.00 ml -1776.35 ml -525.41 ml Results Result Diagram: 10/02/16 0400 10/02/16 0400 Results 24 hrs Laboratory Tests Test 10/02/16 04:00 White Blood Count 18.4 H Red Blood Count 2.90 L Hemoglobin 8.0 L Hematocrit 23.9 L Mean Corpuscular Volume 82.4 Mean Corpuscular Hemoglobin 27.6 L Mean Corpuscular Hemoglobin Concent 33.5 Red Cell Distribution Width 22.4 H Platelet Count 113 #L Mean Platelet Volume Neutrophils % 92.6 H Lymphocytes % 2.4 L Monocytes % 2.7 Eosinophils % 0.6 Basophils % 0.2 Nucleated Red Blood Cells % 0.0 Neutrophils # 17.0 H Lymphocytes # 0.4 L Monocytes # 0.5 Eosinophils # 0.1 Basophils # 0.0 Nucleated Red Blood Cells # 0.0 Sodium Level 137 Potassium Level 3.2 L Chloride Level 94 L Carbon Dioxide Level 34 H Anion Gap 12 Blood Urea Nitrogen 23 H Creatinine 0.81 Glucose Level 114 # Calcium Level 7.4 L Medications Medications Current Medications Morphine Sulfate (morphine) 2 mg Q4H PRN IV PAIN Last administered on 08:39; Admin Dose 2 MG; Start 09/15/16 at 23:30 Ondansetron HCl (Zofran Inj) 4 mg Q6H PRN IV NAUSEA AND/OR VOMITING Last administered on 09/26/16 09:23; Admin Dose 4 MG; Start 09/16/16 at 00:30 Acetaminophen (Tylenol Tab) 650 mg Q6H PRN PO PAIN LEVEL 1-3 OR FEVER Last administered on 09/30/16 01:22; Admin Dose 650 MG; Start 09/16/16 at 00:30 Polyethylene Glycol 17 gm 17 gm DAILY PO Last administered on 10/02/16 08:51; Admin Dose 17 GM; Start 09/20/16 at 11:00 Meropenem/Sodium Chloride 50 ml @ 200 mls/hr Q8 IVPB Last administered on 10/02 05:44; Admin Dose 200 MLS/HR; Start 09/20/16 at 22:00 Norepinephrine 16 mg/Dextrose 500 ml @ 1.87 mls/hr TITRATE IV Last administered on 10/01/16 14:05; Admin Dose 3.75 MLS/HR; Start 09/21/16 at 09:00 Propofol (Diprivan) 100 ml @ 1.671 mls/ hr Q12H IV Last administered on 07:17; Admin Dose 5.013 MLS/HR; Start 09/21/16 at 02:30 Acetaminophen/ Hydrocodone Bitart ([place] (5/325)) 1 tab Q4H PRN PO PAIN LEVEL 4 -7 Last administered on 09/28/16 21:20; Admin Dose 1 TAB; Start 09/21/16 at 15: 00 Acetaminophen/ Hydrocodone Bitart ([place] (5/325)) 2 tab Q4H PRN PO PAIN LEVEL 7 -10; Start 09/21/16 at 15:00 Hydromorphone HCl (Dilaudid) 0.5 mg Q2H PRN IV PAIN Last administered on 16:41; Admin Dose 0.5 MG; Start 09/21/16 at 15:00 Hydromorphone HCl (Dilaudid) 1 mg Q2H PRN IV PAIN Last administered on 09:12; Admin Dose 1 MG; Start 09/21/16 at 15:00 Docusate Sodium (Colace) 100 mg BID PRN PO CONSTIPATION; Start 09/21/16 at 15: 00 Enoxaparin Sodium (Lovenox) 40 mg DAILY SC ; Start 09/22/16 at 09:00; Status Future Hold Docusate Sodium (Colace Liquid Cup) 100 mg BID NGT Last administered on 08:51; Admin Dose 100 MG; Start 09/22/16 at 21:00 Pantoprazole (Protonix Iv) 40 mg DAILY@06 IV Last administered on 10/02/16 05: 45; Admin Dose 40 MG; Start 09/26/16 at 06:00 IV Flush (NS 10 ml) 10 ml PRN PRN IV IV PROTOCOL; Start 09/25/16 at 12:00 Spironolactone 50 mg 50 mg DAILY NGT Last administered on 10/02/16 08:51; Admin Dose 50 MG; Start 09/28/16 at 09:00 Vancomycin HCl 250 ml @ 125 mls/hr Q24H IVPB Last administered on 10/02/16 06 :58; Admin Dose 125 MLS/HR; Start 09/30/16 at 06:00 Dopamine HCl/ Dextrose 250 ml @ 6.053 mls/ hr TITRATE IV Last administered on 09/30/16 04:46; Admin Dose 6.053 MLS/HR; Start 09/29/16 at 11:00 Phenylephrine HCl 40 mg/Dextrose 500 ml @ 75 mls/hr TITRATE IV ; Start at 14:00 Caspofungin 50 mg/ Sodium Chloride 250 ml @ 250 mls/hr Q24H IVPB Last administered on 10/02/16 11:42; Admin Dose 250 MLS/HR; Start 10/01/16 at 12:00 Metronidazole 100 ml @ 100 mls/hr Q8 IVPB Last administered on 10/02/16 13:20 ; Admin Dose 100 MLS/HR; Start 09/30/16 at 14:00 Fentanyl (Sublimaze) 100 ml @ 2.5 mls/hr TITRATE IV Last administered on 04:54; Admin Dose 5 MLS/HR; Start 10/01/16 at 09:30 Miscellaneous Information (*Rx Drug Level Order Reminder*) VANCO TROUGH @ 0, 500 ON... ONCE ONCE XX ; Start 10/03/16 at 05:00; Stop 10/03/16 at 05:01 DONNA HERNANDEZ NP Oct 02, 2016 14:19
[2016-10-02 14:43] LABS: CALCIUM 7.6 mg/dl (8.4-10.2); CREATININE 0.75 mg/dl (0.44-1.00); POTASSIUM 3.5 mmol/L (3.5-5.1)
[2016-10-02] MEDS ORDERED: POTASSIUM CHLORIDE 20 MEQ POWDER FOR ORAL SOLN NGT ONE (17:00)
[2016-10-02] MEDS ORDERED: LIDOCAINE 1% (MPF) 5 ML VIAL ONE ×2 (18:02)
--- NOTE | 2016-10-02 22:21 | PN ---
Date/Time of Note Date/Time of Note DATE: 10/02/16 TIME: 10:11 Assessment/Plan Assessment/Plan Assessment/Plan [facility] Progress Note Date of Service: 10/02/2016 Place of service: [facility] ICU Today's Assessment & Plan: Overall remains critically ill, but slightly improved over the last 24 hours. Abd remain benign. Remains on the vent. Discussed care at length with patient's ex , with Dr. Viramontes and with Dr. Miner. With above assessment, I recommended the following for today: 1. Continue aggressive medical management 2. Continue wound VAC; dressing change 3 times a week 3. Cont intubated state and wean per pulmonary critical care recommendations 4. Cont gentle diuresis per Dr. Sanchez's direction 5. Labs in am 6. Please maintain multidisciplinary discussion regarding fluid intake, CODE STATUS, and other major medical decisions since this is a fragile surgical patient with recent sepsis and shock 7. Targeted antimicrobial therapy to culture results 8. Agree with drainage of left-sided pleural effusion 9. Management of CLIENT SERVICES MANAGER shunt per Dr. Miner Thank you again for your great care of this very pleasant patient and wonderful family. If there are any questions, please feel free to call me at [phone]. Nature of presenting problem: High severity Please note that, given the extensive number of diagnoses or management options , the extensive amount and/or complexity of data needed to be reviewed, and I risk of complications and/or morbidity or mortality, this qualifies as high complexity type of decision-making. Disclaimer: Inadvertent spelling and grammatical errors are likely due to EHR/ dictation software use and do not reflect on the quality of delivered patient care. Also, please note that the electronic time recorded on this node does not necessarily reflect the actual time of the visit. Updated Clinical Summary: A very pleasant 70-year-old lady without significant known past medical history other than a CLIENT SERVICES MANAGER shunt placement many years ago which she did not remember or report, presenting with what appears to be a sigmoid colon abscess or pericolonic abscess, which seemed to be a complication of diverticulitis. S/p IR drainage 09/09/16 with removal of 20 cc pus and placement of a 10 Fr. pigtail catheter at [facility]. D/c home 09/12/16. Re-presented to [place] ED 09/15/16 after being diverted from [facility] (due to internal disaster diversion) where CT was done showing adequate placement of the percutaneous drain near the sigmoid colon and decompressed sigmoid colon abscess, no obvious free air or significant spillage of stool in the abdominal cavity, and incidental finding of tail of the CLIENT SERVICES MANAGER shunt in the pelvis (new from right upper quadrant position of the same drain on the CT scan at [facility]). Transfer to [facility] 09/15/2016 for further cares. S/p upsizing of drain to 12 Fr pigtail on 09/17/16 (communication with colon demonstrated; no obvious free communication to rest of peritoneal space). Patient decompensated in the early hours of the morning on 09/21/2016 and had to be transferred to the intensive care unit with need for endotracheal tube intubation, central line placement, and resuscitation for treatment of shock with lactic acidosis and evidence of peritonitis and free air on the new chest, abdomen, and pelvis CT scan. S/p a rather challenging sigmoid colectomy with performance of end colostomy (Reid's procedure), takedown of splenic flexure of the colon, lysis of adhesions (60 minutes), and abdominal lavage at [facility] on 09/21/16; diagnosis of colon ischemia (distal transverse colon and descending colon) during reentry through recent laparotomy incision with exploration of abdominal cavity, takedown of colostomy, completion left hemicolectomy with resection of distal transverse colon, lysis of adhesions, abdominal lavage, performance of an end colostomy [facility] 09/24/16. Extubated post op evening of 09/25/16. Decompensation with intubation and restart of pressors . Right-sided pneumothorax after drainage of right pleural effusion requiring chest tube placement 09/30/2016. Comorbidities: 1. Perforated sigmoid colon (see below) 2. Status post ventriculoperitoneal shunt placement. 3. Status post prior hysterectomy and bilateral salpingo-oophorectomy through Pfannenstiel incision 4. S/p IR drainage 09/09/16 with removal of 20 cc pus and placement of a 10 Fr. pigtail catheter at [facility]. 5. Readmission to [facility] 09/15/16 with upsizing of drain to 12 Fr pigtail on (communication with colon demonstrated; no obvious free communication to rest of peritoneal space). Septic shock with multiorgan failure 09/21/2016 requiring ICU admission with intubation and pressors. 6. S/p a rather challenging sigmoid colectomy with performance of end colostomy (Reid's procedure), takedown of splenic flexure of the colon, lysis of adhesions (60 minutes), and abdominal lavage at [facility] on 09/21/16 7. Colon ischemia (distal transverse colon and descending colon) 8. S/p reentry through recent laparotomy incision with exploration of abdominal cavity, takedown of colostomy, completion left hemicolectomy with resection of distal transverse colon, lysis of adhesions, abdominal lavage, performance of an end colostomy [facility] 09/24/16 Subjective: Left pleural effusion drained yesterday. Right-sided pneumothorax stable with chest tube placement; no obvious major abd pain and appears to be under control with medications; no observed or reported n/v/d; no observed or reported sob or cp; + bowel activity; - activity; remains on a ventilator. Patient does open eyes but minimally communicative and therefore difficult to assess her symptoms subjectively. Objective: Vitals: See below I's & O's: See below Exam: GENERAL: On exam, the patient was lying in bed and appeared to be comfortable and in no acute distress. Intubated and on the ventilator. ABDOMEN: Soft, nontender and nondistended. Incision dressings are clean, dry and intact without any obvious evidence of underlying erythema, edema, discharge , or hernia. Surgical drain ss without any evidence of enteric contents. There are no peritoneal signs or guarding. Ostomy appears to be viable and productive with stool and air in the bag. SKIN: Skin appears to be pink and feels warm to touch. NEUROLOGIC: Patient is easily arousable to voice and follows very simple commands. Labs: See below Exam/Review of Systems Vital Signs Vitals Vital Signs Date Time Temp Pulse Resp B/P Pulse Ox O2 Delivery O2 Flow Rate FiO2 10/02/16 19:41 84 16 100 40 10/02/16 19:00 98/50 10/02/16 18:39 Mechanical Ventilator 10/02/16 16:00 98.5 Intake and Output 10/01/16 10/01/16 10/02/16 15:00 23:00 07:00 Intake Total 1585.00 ml 968.65 ml 712.59 ml Output Total 1081 ml 2745 ml 1238 ml Balance 504.00 ml -1776.35 ml -525.41 ml Results Result Diagram: 10/02/16 0400 10/02/16 1400 ALEXSANDER DUARTE M.D. Oct 02, 2016 22:21
[2016-10-03] VITALS (52 sets, daily range): BP systolic 70–127; BP diastolic 32–71; PULSE 67–123; RESP 14–26
[2016-10-03] MEDS: PROPOFOL 100 ML IV SCH (02:55)
[2016-10-03] MEDS: FUROSEMIDE 40 MG INJ IV SCH (05:04)
[2016-10-03] MEDS: metroNIDAZOLE 500 MG/NS (PMX) 100 ML IVPB SCH ×3 (05:04→22:05)
[2016-10-03] MEDS: MEROPENEM 500MG/50 ML (PMX) 50 ML IVPB SCH ×3 (05:05→21:30)
[2016-10-03] MEDS: PANTOPRAZOLE 40 MG INJ IV SCH (05:07)
[2016-10-03 05:59] LABS: ABNORMAL IP MESSAGE 1; BASOPHILS % 0.2 % (0.0-2.0); EOSINOPHILS # 0.1 10^3/ul (0.0-0.5); EOSINOPHILS % 0.5 % (0.0-7.0); HEMATOCRIT 23.9 % (37.0-47.0); HEMOGLOBIN 7.8 g/dl (12.0-16.0); LYMPHOCYTES # 0.5 10^3/ul (0.8-2.9); MEAN CORPUSCULAR HGB CONC 32.6 g/dl (32.0-37.0); MEAN CORPUSCULAR VOLUME 82.7 fl (82.0-101.0); MEAN PLATELET VOLUME 13.3 fl (7.4-10.4); MONOCYTE # 0.9 10^3/ul (0.3-0.9); MONOCYTES % 4.9 % (0.0-11.0); NEUTROPHIL # 16.1 10^3/ul (1.6-7.5); PLATELET COUNT 150 10^3/UL (140-415); RED BLOOD COUNT 2.89 10^6/ul (4.20-5.40); RED CELL DISTRIBUTION WIDTH 22.8 % (11.5-14.5); WHITE BLOOD COUNT 17.7 10^3/ul (4.8-10.8)
[2016-10-03 06:16] LABS: NEUTROPHILS % 90.7 % (39.0-77.0); POSITIVE DIFF @See below
[2016-10-03 06:40] LABS: CALCIUM 7.2 mg/dl (8.4-10.2); CREATININE 0.82 mg/dl (0.44-1.00); PHOSPHORUS 4.5 mg/dl (2.5-4.9); POTASSIUM 3.6 mmol/L (3.5-5.1)
[2016-10-03 06:50] LABS: MAGNESIUM 1.9 mg/dl (1.7-2.5)
--- NOTE | 2016-10-03 08:12 | PN ---
Date/Time of Note Date/Time of Note DATE: 10/03/16 TIME: 08:09 Assessment/Plan VTE Prophylaxis VTE Prophylaxis Intervention: other Assessment/Plan Chief Complaint/Hosp Course Nonoliguric acute kidney injury. Etiology secondary ATN -Renal function has been improved with supportive care continue current treatment plan renally dose meds avoid nephrotoxins Hypernatremia Improved Continue free water flushes, Monitor serial sodium levels Hypokalemia secondary to diuretics Improved Replete potassium chloride as needed Aldactone 50 mg daily Monitor closely Volume overload/anasarca secondary CHF, third spacing -Patient remains volume overloaded but improving Diuretics adjusted by cardiology, will defer for management We will monitor electrolytes closely Monitor I's and O's closely Shock, presumed sepsis, Pressors are being weaned off slowly Continue broad-spectrum antibiotics next, follow-up cultures Monitor closely Anemia Monitor H&H levels Mineral bone disorder Monitor calcium phosphorus levels Lactic acidosis secondary to shock -Continue to monitor 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 -Continue treatment plan -Follow-up with surgery Respiratory failure Patient reintubated Chest x-ray ABG reviewed Follow-up with pulmonary History of intracranial hemorrhage in the past status post BULK PLANT SUPERVISOR shunt placement that has been stable over time -BULK PLANT SUPERVISOR shunt was externalized during the surgery September 21, 2016 due to abdominal infection, per neurosurgical notes may need to be reconnected once patient stable versus removed Problems: Subjective 24 Hr Interval Summary Free Text/Dictation Patient seen and examined Remains critically ill on pressure support Urinary output has been adequate No other events noted Exam/Review of Systems Vital Signs Vitals Vital Signs Date Time Temp Pulse Resp B/P Pulse Ox O2 Delivery O2 Flow Rate FiO2 10/03/16 07:00 123 16 107/67 100 10/03/16 05:33 40 10/03/16 04:00 97.6 10/02/16 18:39 Mechanical Ventilator Intake and Output 10/02/16 10/02/16 10/03/16 15:00 23:00 07:00 Intake Total 1384.35 ml 906.526 ml 1106.4 ml Output Total 2332 ml 1664 ml 1187 ml Balance -947.65 ml -757.474 ml -80.6 ml Exam HEENT: Head is normocephalic, NECK: Supple. HEART: Irregular LUNGS: Show diminished breath sounds at base. ABDOMEN: Soft, nontender to palpation without rebound or guarding. EXTREMITIES: Negative for clubbing, cyanosis. Positive edema improving DERMATOLOGIC: No rashes. MUSCULOSKELETAL: No joint effusions, NEUROLOGIC: No change in exam. Results Result Diagram: 10/03/16 0450 10/03/16 0450 Results 24 hrs Laboratory Tests Test 10/02/16 14:00 10/03/16 04:50 Sodium Level 139 139 Potassium Level 3.5 3.6 Chloride Level 92 L 92 L Carbon Dioxide Level 36 H 34 H Anion Gap 15 17 H Blood Urea Nitrogen 25 H 26 H Creatinine 0.75 0.82 Glucose Level 129 121 Calcium Level 7.6 L 7.2 L White Blood Count 17.7 H Red Blood Count 2.89 L Hemoglobin 7.8 L Hematocrit 23.9 L Mean Corpuscular Volume 82.7 Mean Corpuscular Hemoglobin 27.0 L Mean Corpuscular Hemoglobin Concent 32.6 Red Cell Distribution Width 22.8 H Platelet Count 150 # Mean Platelet Volume 13.3 H Neutrophils % 90.7 H Lymphocytes % 3.0 L Monocytes % 4.9 Eosinophils % 0.5 Basophils % 0.2 Nucleated Red Blood Cells % 0.0 Neutrophils # 16.1 H Lymphocytes # 0.5 L Monocytes # 0.9 Eosinophils # 0.1 Basophils # 0.0 Nucleated Red Blood Cells # 0.0 Phosphorus Level 4.5 Magnesium Level 1.9 Vancomycin Level Trough 20.2 *H Medications Medications Current Medications Morphine Sulfate (morphine) 2 mg Q4H PRN IV PAIN Last administered on 08:39; Admin Dose 2 MG; Start 09/15/16 at 23:30 Ondansetron HCl (Zofran Inj) 4 mg Q6H PRN IV NAUSEA AND/OR VOMITING Last administered on 09/26/16 09:23; Admin Dose 4 MG; Start 09/16/16 at 00:30 Acetaminophen (Tylenol Tab) 650 mg Q6H PRN PO PAIN LEVEL 1-3 OR FEVER Last administered on 09/30/16 01:22; Admin Dose 650 MG; Start 09/16/16 at 00:30 Polyethylene Glycol 17 gm 17 gm DAILY PO Last administered on 10/02/16 08:51; Admin Dose 17 GM; Start 09/20/16 at 11:00 Meropenem/Sodium Chloride 50 ml @ 200 mls/hr Q8 IVPB Last administered on 10/03 05:05; Admin Dose 200 MLS/HR; Start 09/20/16 at 22:00 Norepinephrine 16 mg/Dextrose 500 ml @ 1.87 mls/hr TITRATE IV Last administered on 10/01/16 14:05; Admin Dose 3.75 MLS/HR; Start 09/21/16 at 09:00 Propofol (Diprivan) 100 ml @ 1.671 mls/ hr Q12H IV Last administered on 02:55; Admin Dose 3.342 MLS/HR; Start 09/21/16 at 02:30 Acetaminophen/ Hydrocodone Bitart ([place] (5/325)) 1 tab Q4H PRN PO PAIN LEVEL 4 -7 Last administered on 09/28/16 21:20; Admin Dose 1 TAB; Start 09/21/16 at 15: 00 Acetaminophen/ Hydrocodone Bitart ([place] (5/325)) 2 tab Q4H PRN PO PAIN LEVEL 7 -10; Start 09/21/16 at 15:00 Hydromorphone HCl (Dilaudid) 0.5 mg Q2H PRN IV PAIN Last administered on 16:41; Admin Dose 0.5 MG; Start 09/21/16 at 15:00 Hydromorphone HCl (Dilaudid) 1 mg Q2H PRN IV PAIN Last administered on 09:12; Admin Dose 1 MG; Start 09/21/16 at 15:00 Docusate Sodium (Colace) 100 mg BID PRN PO CONSTIPATION; Start 09/21/16 at 15: 00 Enoxaparin Sodium (Lovenox) 40 mg DAILY SC ; Start 09/22/16 at 09:00; Status Future Hold Docusate Sodium (Colace Liquid Cup) 100 mg BID NGT Last administered on 21:57; Admin Dose 100 MG; Start 09/22/16 at 21:00 Pantoprazole (Protonix Iv) 40 mg DAILY@06 IV Last administered on 10/03/16 05: 07; Admin Dose 40 MG; Start 09/26/16 at 06:00 IV Flush (NS 10 ml) 10 ml PRN PRN IV IV PROTOCOL; Start 09/25/16 at 12:00 Spironolactone 50 mg 50 mg DAILY NGT Last administered on 10/02/16 08:51; Admin Dose 50 MG; Start 09/28/16 at 09:00 Dopamine HCl/ Dextrose 250 ml @ 6.053 mls/ hr TITRATE IV Last administered on 09/30/16 04:46; Admin Dose 6.053 MLS/HR; Start 09/29/16 at 11:00 Phenylephrine HCl 40 mg/Dextrose 500 ml @ 75 mls/hr TITRATE IV ; Start at 14:00 Caspofungin 50 mg/ Sodium Chloride 250 ml @ 250 mls/hr Q24H IVPB Last administered on 10/02/16 11:42; Admin Dose 250 MLS/HR; Start 10/01/16 at 12:00 Metronidazole 100 ml @ 100 mls/hr Q8 IVPB Last administered on 10/03/16 05:04 ; Admin Dose 100 MLS/HR; Start 09/30/16 at 14:00 Fentanyl 100 ml @ 2.5 mls/hr TITRATE IV Last administered on 10/02/16 04:54; Admin Dose 5 MLS/HR; Start 10/01/16 at 09:30 Vancomycin HCl (Vancocin) 250 ml @ 125 mls/hr Q36H IVPB ; Start 10/03/16 at 18: 00 KIRAN CASTILLO DO Oct 03, 2016 08:11
--- NOTE | 2016-10-03 08:14 | PN ---
Date/Time of Note Date/Time of Note DATE: 10/03/16 TIME: 08:08 Assessment/Plan VTE Prophylaxis VTE Prophylaxis Intervention: SCD's Assessment/Plan Chief Complaint/Hosp Course A/P: 70 F with: 1. Acute diverticulitis with abscess and sigmoid colon perforation * s/p sigmoid colectomy with end colostomy (Reid's procedure) and adhesiolysis on 09/21/16 * Status post completion of hemicolectomy and colostomy placement * Patient has wound VAC on anterior abdominal wall - f/u surgery rec's 2. Severe sepsis with systemic shock and organ dysfunction, on vancomycin/ meropenem/flagyl/caspfungin - f/u ID rec's 3. Respiratory failure-patient reintubated, follow up with pulmonology regarding weaning off vent (presently attempting this) 4. Mild troponin elevation likely type 2 from sepsis, stable - CV on case 5. Acute transaminitis 2/2 shock liver: resolved 6. History of intracranial hemorrhage in the past status post CHAINSTITCH SEAT JOINER shunt placement that has been stable over time * CHAINSTITCH SEAT JOINER shunt was externalized during the surgery September 21, 2016 due to abdominal infection, per neurosurgical notes may need to be reconnected once patient stable versus removed 7. Hypernatremia likely secondary to #1: improved 8. Severe coagulopathy also as a result of #1: improved 9. Iron deficiency hypochromic anemia on iron infusion therapy 10. Diffuse anasarca as well as bilateral pleural effusions likely associated hypoalbuminemia - monitor (has been on lasix IV BID) 11. Bilateral pneumonia with vascular congestion concerning for ARDS, on vent, follow up with pulmonology also s/p right CT placement sec to PTX on 09/30 - monitor 12. Acute renal insufficiency, resolved - f/u renal rec's 13. Thrombocytopenia, sepsis related, follow up with PLT 14. Pleural effusion, thoracentesis per pulmonology on left side 10/01 - monitor 15. DVT prophylaxis: SCD's Critical care time today: 50 minutes Problems: Subjective 24 Hr Interval Summary Free Text/Dictation Pt undergoing weaning trial, failed yesterday. Started on Levophed yesterday. Exam/Review of Systems Vital Signs Vitals Vital Signs Date Time Temp Pulse Resp B/P Pulse Ox O2 Delivery O2 Flow Rate FiO2 10/03/16 07:00 123 16 107/67 100 10/03/16 05:33 40 10/03/16 04:00 97.6 10/02/16 18:39 Mechanical Ventilator Intake and Output 10/02/16 10/02/16 10/03/16 15:00 23:00 07:00 Intake Total 1384.35 ml 906.526 ml 1106.4 ml Output Total 2332 ml 1664 ml 1187 ml Balance -947.65 ml -757.474 ml -80.6 ml Exam ENMT: intubated Respiratory: clear to auscultation Cardiovascular: regular rate and rhythm Gastrointestinal: soft, No distended Musculoskeletal: nl extremities to inspection Results Result Diagram: 10/03/16 0450 10/03/16 0450 Results 24 hrs Laboratory Tests Test 10/02/16 14:00 10/03/16 04:50 Sodium Level 139 139 Potassium Level 3.5 3.6 Chloride Level 92 L 92 L Carbon Dioxide Level 36 H 34 H Anion Gap 15 17 H Blood Urea Nitrogen 25 H 26 H Creatinine 0.75 0.82 Glucose Level 129 121 Calcium Level 7.6 L 7.2 L White Blood Count 17.7 H Red Blood Count 2.89 L Hemoglobin 7.8 L Hematocrit 23.9 L Mean Corpuscular Volume 82.7 Mean Corpuscular Hemoglobin 27.0 L Mean Corpuscular Hemoglobin Concent 32.6 Red Cell Distribution Width 22.8 H Platelet Count 150 # Mean Platelet Volume 13.3 H Neutrophils % 90.7 H Lymphocytes % 3.0 L Monocytes % 4.9 Eosinophils % 0.5 Basophils % 0.2 Nucleated Red Blood Cells % 0.0 Neutrophils # 16.1 H Lymphocytes # 0.5 L Monocytes # 0.9 Eosinophils # 0.1 Basophils # 0.0 Nucleated Red Blood Cells # 0.0 Phosphorus Level 4.5 Magnesium Level 1.9 Vancomycin Level Trough 20.2 *H Medications Medications Current Medications Morphine Sulfate (morphine) 2 mg Q4H PRN IV PAIN Last administered on 08:39; Admin Dose 2 MG; Start 09/15/16 at 23:30 Ondansetron HCl (Zofran Inj) 4 mg Q6H PRN IV NAUSEA AND/OR VOMITING Last administered on 09/26/16 09:23; Admin Dose 4 MG; Start 09/16/16 at 00:30 Acetaminophen (Tylenol Tab) 650 mg Q6H PRN PO PAIN LEVEL 1-3 OR FEVER Last administered on 09/30/16 01:22; Admin Dose 650 MG; Start 09/16/16 at 00:30 Polyethylene Glycol 17 gm 17 gm DAILY PO Last administered on 10/02/16 08:51; Admin Dose 17 GM; Start 09/20/16 at 11:00 Meropenem/Sodium Chloride 50 ml @ 200 mls/hr Q8 IVPB Last administered on 10/03 05:05; Admin Dose 200 MLS/HR; Start 09/20/16 at 22:00 Norepinephrine 16 mg/Dextrose 500 ml @ 1.87 mls/hr TITRATE IV Last administered on 10/01/16 14:05; Admin Dose 3.75 MLS/HR; Start 09/21/16 at 09:00 Propofol (Diprivan) 100 ml @ 1.671 mls/ hr Q12H IV Last administered on 02:55; Admin Dose 3.342 MLS/HR; Start 09/21/16 at 02:30 Acetaminophen/ Hydrocodone Bitart ([place] (5/325)) 1 tab Q4H PRN PO PAIN LEVEL 4 -7 Last administered on 09/28/16 21:20; Admin Dose 1 TAB; Start 09/21/16 at 15: 00 Acetaminophen/ Hydrocodone Bitart ([place] (5/325)) 2 tab Q4H PRN PO PAIN LEVEL 7 -10; Start 09/21/16 at 15:00 Hydromorphone HCl (Dilaudid) 0.5 mg Q2H PRN IV PAIN Last administered on 16:41; Admin Dose 0.5 MG; Start 09/21/16 at 15:00 Hydromorphone HCl (Dilaudid) 1 mg Q2H PRN IV PAIN Last administered on 09:12; Admin Dose 1 MG; Start 09/21/16 at 15:00 Docusate Sodium (Colace) 100 mg BID PRN PO CONSTIPATION; Start 09/21/16 at 15: 00 Enoxaparin Sodium (Lovenox) 40 mg DAILY SC ; Start 09/22/16 at 09:00; Status Future Hold Docusate Sodium (Colace Liquid Cup) 100 mg BID NGT Last administered on 21:57; Admin Dose 100 MG; Start 09/22/16 at 21:00 Pantoprazole (Protonix Iv) 40 mg DAILY@06 IV Last administered on 10/03/16 05: 07; Admin Dose 40 MG; Start 09/26/16 at 06:00 IV Flush (NS 10 ml) 10 ml PRN PRN IV IV PROTOCOL; Start 09/25/16 at 12:00 Spironolactone 50 mg 50 mg DAILY NGT Last administered on 10/02/16 08:51; Admin Dose 50 MG; Start 09/28/16 at 09:00 Dopamine HCl/ Dextrose 250 ml @ 6.053 mls/ hr TITRATE IV Last administered on 09/30/16 04:46; Admin Dose 6.053 MLS/HR; Start 09/29/16 at 11:00 Phenylephrine HCl 40 mg/Dextrose 500 ml @ 75 mls/hr TITRATE IV ; Start at 14:00 Caspofungin 50 mg/ Sodium Chloride 250 ml @ 250 mls/hr Q24H IVPB Last administered on 10/02/16 11:42; Admin Dose 250 MLS/HR; Start 10/01/16 at 12:00 Metronidazole 100 ml @ 100 mls/hr Q8 IVPB Last administered on 10/03/16 05:04 ; Admin Dose 100 MLS/HR; Start 09/30/16 at 14:00 Fentanyl 100 ml @ 2.5 mls/hr TITRATE IV Last administered on 10/02/16 04:54; Admin Dose 5 MLS/HR; Start 10/01/16 at 09:30 Vancomycin HCl (Vancocin) 250 ml @ 125 mls/hr Q36H IVPB ; Start 10/03/16 at 18: 00 DENNY MEDEL Oct 03, 2016 08:14
--- NOTE | 2016-10-03 08:50 | RADRPT ---
PROCEDURE: XR Chest. CLINICAL INDICATION: pna chf TECHNIQUE: Single frontal view of the chest was obtained COMPARISON: Chest x-ray 10/01/2016 FINDINGS: The endotracheal tube is stable position, terminating approximate 4 cm above the zana. The right PICC line and nasogastric tubes are in stable positions. The right pleural pigtail catheter is in stable position. The cardiac silhouette is borderline enlarged. There are atherosclerotic calcifications of the thoracic aorta. There is mild stable pulmonary vascular congestion. Ill-defined opacity at the left lung base persists and likely represents atelectasis and / or a smal l partially layering left pleural effusion, overall likely unchanged compared to prior study. No pneumothorax or significant right pleural effusion is seen. There are degenerative changes of the visualized spine. IMPRESSION: 1. The endotracheal tube, nasogastric tube, right PICC line, and right pleural pigtail catheter are in stable and satisfactory positions. 2. Borderline cardiomegaly. 3. Stable mild pulmonary vascular congestion. 4. Stable ill-defined opacity at the left lung base which may represent a small partially layering left pleural effusion, atelectasis, and / or consolidation. 5. Thoracic aortic atherosclerotic disease. RPTAT: PP Physician Chato Date Time Electronically viewed and signed by Physician Chato on 10/03/2016 08:49 /
[2016-10-03] MEDS: DOCUSATE SODIUM 10 MG/ML (10ML CUP) NGT SCH ×2 (09:28→21:29)
[2016-10-03] MEDS: POLYETHYLENE GLYCOL 17 GM PACKET PO SCH (09:28)
[2016-10-03] MEDS: SPIRONOLACTONE 50 MG TAB NGT SCH (09:28)
--- NOTE | 2016-10-03 10:19 | CONS ---
Date/Time of Note Date/Time of Note DATE: 10/03/16 TIME: 10:17 Consult Date/Type/Reason Admit Date/Time Sep 15, 2016 at 21:35 Initial Consult Date 09/21/16 Type of Consultation: Pulmonary Subjective Failed CPAP trial yesterday. Failed SIMV. Objective Vital Signs Date Time Temp Pulse Resp B/P Pulse Ox O2 Delivery O2 Flow Rate FiO2 10/03/16 09:00 99 25 116/65 100 CPAP Mechanical Ventilator 10/03/16 08:50 40 10/03/16 08:00 98.0 Intake and Output 10/02/16 10/02/16 10/03/16 15:00 23:00 07:00 Intake Total 1384.35 ml 906.526 ml 1166.4 ml Output Total 2332 ml 1664 ml 1362 ml Balance -947.65 ml -757.474 ml -195.6 ml Exam PHYSICAL EXAMINATION GENERAL: Chronically ill-appearing lady intubated on mechanical ventilation appears comfortable at rest VITAL SIGNS: see below. HEENT: Pupils equal, round, and reactive to light. CARDIAC: S1, S2, 1/6 systolic ejection murmur CHEST: Diminished air entry bilaterally. Chest tube placed in left lung. ABDOMEN: Mildly distended. Bowel sounds present no guarding or rebound EXTREMITIES: No cyanosis, clubbing edema +1 NEUROLOGIC: Generalized weakness Results/Medications Result Diagram: 10/03/16 0450 10/03/16 0450 Results 24 hrs Laboratory Tests Test 10/02/16 14:00 10/03/16 04:50 Sodium Level 139 139 Potassium Level 3.5 3.6 Chloride Level 92 L 92 L Carbon Dioxide Level 36 H 34 H Anion Gap 15 17 H Blood Urea Nitrogen 25 H 26 H Creatinine 0.75 0.82 Glucose Level 129 121 Calcium Level 7.6 L 7.2 L White Blood Count 17.7 H Red Blood Count 2.89 L Hemoglobin 7.8 L Hematocrit 23.9 L Mean Corpuscular Volume 82.7 Mean Corpuscular Hemoglobin 27.0 L Mean Corpuscular Hemoglobin Concent 32.6 Red Cell Distribution Width 22.8 H Platelet Count 150 # Mean Platelet Volume 13.3 H Neutrophils % 90.7 H Lymphocytes % 3.0 L Monocytes % 4.9 Eosinophils % 0.5 Basophils % 0.2 Nucleated Red Blood Cells % 0.0 Neutrophils # 16.1 H Lymphocytes # 0.5 L Monocytes # 0.9 Eosinophils # 0.1 Basophils # 0.0 Nucleated Red Blood Cells # 0.0 Phosphorus Level 4.5 Magnesium Level 1.9 Vancomycin Level Trough 20.2 *H Medications Current Medications Morphine Sulfate (morphine) 2 mg Q4H PRN IV PAIN Last administered on 08:39; Admin Dose 2 MG; Start 09/15/16 at 23:30 Ondansetron HCl (Zofran Inj) 4 mg Q6H PRN IV NAUSEA AND/OR VOMITING Last administered on 09/26/16 09:23; Admin Dose 4 MG; Start 09/16/16 at 00:30 Acetaminophen (Tylenol Tab) 650 mg Q6H PRN PO PAIN LEVEL 1-3 OR FEVER Last administered on 09/30/16 01:22; Admin Dose 650 MG; Start 09/16/16 at 00:30 Polyethylene Glycol 17 gm 17 gm DAILY PO Last administered on 10/03/16 09:28; Admin Dose 17 GM; Start 09/20/16 at 11:00 Meropenem/Sodium Chloride 50 ml @ 200 mls/hr Q8 IVPB Last administered on 10/03 05:05; Admin Dose 200 MLS/HR; Start 09/20/16 at 22:00 Norepinephrine 16 mg/Dextrose 500 ml @ 1.87 mls/hr TITRATE IV Last administered on 10/01/16 14:05; Admin Dose 3.75 MLS/HR; Start 09/21/16 at 09:00 Propofol (Diprivan) 100 ml @ 1.671 mls/ hr Q12H IV Last administered on 02:55; Admin Dose 3.342 MLS/HR; Start 09/21/16 at 02:30 Acetaminophen/ Hydrocodone Bitart ([employer] (5/325)) 1 tab Q4H PRN PO PAIN LEVEL 4 -7 Last administered on 09/28/16 21:20; Admin Dose 1 TAB; Start 09/21/16 at 15: 00 Acetaminophen/ Hydrocodone Bitart ([employer] (5/325)) 2 tab Q4H PRN PO PAIN LEVEL 7 -10; Start 09/21/16 at 15:00 Hydromorphone HCl (Dilaudid) 0.5 mg Q2H PRN IV PAIN Last administered on 16:41; Admin Dose 0.5 MG; Start 09/21/16 at 15:00 Hydromorphone HCl (Dilaudid) 1 mg Q2H PRN IV PAIN Last administered on 09:12; Admin Dose 1 MG; Start 09/21/16 at 15:00 Docusate Sodium (Colace) 100 mg BID PRN PO CONSTIPATION; Start 09/21/16 at 15: 00 Enoxaparin Sodium (Lovenox) 40 mg DAILY SC ; Start 09/22/16 at 09:00; Status Future Hold Docusate Sodium (Colace Liquid Cup) 100 mg BID NGT Last administered on 09:28; Admin Dose 100 MG; Start 09/22/16 at 21:00 Pantoprazole (Protonix Iv) 40 mg DAILY@06 IV Last administered on 10/03/16 05: 07; Admin Dose 40 MG; Start 09/26/16 at 06:00 IV Flush (NS 10 ml) 10 ml PRN PRN IV IV PROTOCOL; Start 09/25/16 at 12:00 Spironolactone 50 mg 50 mg DAILY NGT Last administered on 10/03/16 09:28; Admin Dose 50 MG; Start 09/28/16 at 09:00 Dopamine HCl/ Dextrose 250 ml @ 6.053 mls/ hr TITRATE IV Last administered on 09/30/16 04:46; Admin Dose 6.053 MLS/HR; Start 09/29/16 at 11:00 Phenylephrine HCl 40 mg/Dextrose 500 ml @ 75 mls/hr TITRATE IV ; Start at 14:00 Caspofungin 50 mg/ Sodium Chloride 250 ml @ 250 mls/hr Q24H IVPB Last administered on 10/02/16 11:42; Admin Dose 250 MLS/HR; Start 10/01/16 at 12:00 Metronidazole 100 ml @ 100 mls/hr Q8 IVPB Last administered on 10/03/16 05:04 ; Admin Dose 100 MLS/HR; Start 09/30/16 at 14:00 Fentanyl 100 ml @ 2.5 mls/hr TITRATE IV Last administered on 10/02/16 04:54; Admin Dose 5 MLS/HR; Start 10/01/16 at 09:30 Vancomycin HCl/ Sodium Chloride (Vancocin/NS) 250 ml @ 83.333 mls/ hr Q36H IVPB ; Start 10/03/16 at 16:00 Assessment/Plan Chief Complaint/Hosp Course Assessment 1. Severe sepsis and hypoxemic respiratory failure. No evidence of worsening pneumothorax on the right following chest tube placement. Repeat CPAP trial this morning. 2. Possible infected MELT HELPER shunt. Status post externalization 3. Status post bowel resection. 4. Severe sepsis with metabolic acidosis clinically improved 5. Postop anemia, hemoglobin remained stable. 6. Electrolyte abnormalities hyperkalemia and hypernatremia Plan 1. Continue mechanical ventilation. CPAP trial today. 2.' neurosurgery and general surgery recommendations, 3. Continue broad-spectrum antibiotics 4. Continue chest tube to suction. We will attempt removal of chest tube if patient comes off mechanical ventilation. 5. DVT and GI prophylaxis 6. Renal recommendations regarding electrolyte abnormalities, consider increasing diuretics Discussed with staff Critical care time 40 minutes. Problems: DAMIEN GUADARRAMA MD, [facility] Oct 03, 2016 10:19
[2016-10-03 10:58] LABS: AADO2 Arterial 128.5 mmHg (7.0-24.0); Allen Test ACCEPTAB; Arterial COHb 0.3 % (0.0-3.0); Arterial MetHb 0.5 % (0.0-1.5); Arterial Total Hemglobin 9.8 g/dl (12.0-18.0); Blood Gas PS 10; MODE VENT - CPAP
[2016-10-03] MEDS: CASPOFUNGIN 50 MG in SOD CHLORIDE 0.9% 250 ML IVPB SCH (11:27)
--- NOTE | 2016-10-03 14:09 | PN ---
Date/Time of Note Date/Time of Note DATE: 10/03/16 TIME: 14:06 Assessment/Plan Assessment/Plan Assessment/Plan [facility] Progress Note Date of Service: 10/03/2016 Place of service: [facility] ICU Today's Assessment & Plan: Overall remains critically ill, but continues to improve. Patient was extubated earlier today and seems to be breathing without difficulty currently. Hopeful that she can remain extubated and continued to improve from a pulmonary standpoint. Abd remain benign. With above assessment, I recommended the following for today: 1. Continue aggressive medical management 2. Continue wound VAC; dressing change 3 times a week 3. Cont aggressive pulmonary toilet 4. Cont gentle diuresis per Dr. Sanchez's direction 5. Labs in am 6. Please maintain multidisciplinary discussion regarding fluid intake, CODE STATUS, and other major medical decisions since this is a fragile surgical patient with recent sepsis and shock 7. Targeted antimicrobial therapy to culture results 8. Agree with drainage of left-sided pleural effusion 9. Management of PULMONARY PHYSICAL THERAPIST shunt per Dr. Miner Thank you again for your great care of this very pleasant patient and wonderful family. If there are any questions, please feel free to call me at [phone]. Nature of presenting problem: High severity Please note that, given the extensive number of diagnoses or management options , the extensive amount and/or complexity of data needed to be reviewed, and I risk of complications and/or morbidity or mortality, this qualifies as high complexity type of decision-making. Disclaimer: Inadvertent spelling and grammatical errors are likely due to EHR/ dictation software use and do not reflect on the quality of delivered patient care. Also, please note that the electronic time recorded on this node does not necessarily reflect the actual time of the visit. Updated Clinical Summary: A very pleasant 70-year-old lady without significant known past medical history other than a PULMONARY PHYSICAL THERAPIST shunt placement many years ago which she did not remember or report, presenting with what appears to be a sigmoid colon abscess or pericolonic abscess, which seemed to be a complication of diverticulitis. S/p IR drainage 09/09/16 with removal of 20 cc pus and placement of a 10 Fr. pigtail catheter at [facility]. D/c home 09/12/16. Re-presented to [place] ED 09/15/16 after being diverted from [facility] (due to internal disaster diversion) where CT was done showing adequate placement of the percutaneous drain near the sigmoid colon and decompressed sigmoid colon abscess, no obvious free air or significant spillage of stool in the abdominal cavity, and incidental finding of tail of the PULMONARY PHYSICAL THERAPIST shunt in the pelvis (new from right upper quadrant position of the same drain on the CT scan at [facility]). Transfer to [facility] 09/15/2016 for further cares. S/p upsizing of drain to 12 Fr pigtail on 09/17/16 (communication with colon demonstrated; no obvious free communication to rest of peritoneal space). Patient decompensated in the early hours of the morning on 09/21/2016 and had to be transferred to the intensive care unit with need for endotracheal tube intubation, central line placement, and resuscitation for treatment of shock with lactic acidosis and evidence of peritonitis and free air on the new chest, abdomen, and pelvis CT scan. S/p a rather challenging sigmoid colectomy with performance of end colostomy (Reid's procedure), takedown of splenic flexure of the colon, lysis of adhesions (60 minutes), and abdominal lavage at [facility] on 09/21/16; diagnosis of colon ischemia (distal transverse colon and descending colon) during reentry through recent laparotomy incision with exploration of abdominal cavity, takedown of colostomy, completion left hemicolectomy with resection of distal transverse colon, lysis of adhesions, abdominal lavage, performance of an end colostomy [facility] 09/24/16. Extubated post op evening of 09/25/16. Decompensation with intubation and restart of pressors . Right-sided pneumothorax after drainage of right pleural effusion requiring chest tube placement 09/30/2016. Extubated 10/03/2016. Comorbidities: 1. Perforated sigmoid colon (see below) 2. Status post ventriculoperitoneal shunt placement. 3. Status post prior hysterectomy and bilateral salpingo-oophorectomy through Pfannenstiel incision 4. S/p IR drainage 09/09/16 with removal of 20 cc pus and placement of a 10 Fr. pigtail catheter at [facility]. 5. Readmission to [facility] 09/15/16 with upsizing of drain to 12 Fr pigtail on (communication with colon demonstrated; no obvious free communication to rest of peritoneal space). Septic shock with multiorgan failure 09/21/2016 requiring ICU admission with intubation and pressors. 6. S/p a rather challenging sigmoid colectomy with performance of end colostomy (Reid's procedure), takedown of splenic flexure of the colon, lysis of adhesions (60 minutes), and abdominal lavage at [facility] on 09/21/16 7. Colon ischemia (distal transverse colon and descending colon) 8. S/p reentry through recent laparotomy incision with exploration of abdominal cavity, takedown of colostomy, completion left hemicolectomy with resection of distal transverse colon, lysis of adhesions, abdominal lavage, performance of an end colostomy [facility] 09/24/16 Subjective: Extubated earlier today. No major events or complaints overnight. Reports breathing is relatively easy. Complains of abdominal pain. No observed or reported n/v/d; no observed or reported sob or cp; + bowel activity; - activity. Objective: Vitals: See below I's & O's: See below Exam: GENERAL: On exam, the patient was lying in bed and appeared to be comfortable and in no acute distress. ABDOMEN: Soft, nontender and nondistended. Incision dressings are clean, dry and intact without any obvious evidence of underlying erythema, edema, discharge , or hernia. Surgical drain ss without any evidence of enteric contents. There are no peritoneal signs or guarding. Ostomy appears to be viable and productive with stool and air in the bag. SKIN: Skin appears to be pink and feels warm to touch. NEUROLOGIC: Patient appears to be awake, alert, and follows simple commands. Voice is somewhat weak but able to say 1 word sentences. Labs: See below Exam/Review of Systems Vital Signs Vitals Vital Signs Date Time Temp Pulse Resp B/P Pulse Ox O2 Delivery O2 Flow Rate FiO2 10/03/16 12:00 93 10/03/16 11:35 100 4.0 10/03/16 09:00 25 116/65 CPAP Mechanical Ventilator 10/03/16 08:50 40 10/03/16 08:00 98.0 Intake and Output 10/02/16 10/02/16 10/03/16 15:00 23:00 07:00 Intake Total 1384.35 ml 906.526 ml 1166.4 ml Output Total 2332 ml 1664 ml 1362 ml Balance -947.65 ml -757.474 ml -195.6 ml Results Result Diagram: 10/03/16 0450 10/03/16 0450 ALEXSANDER DUARTE M.D. Oct 03, 2016 14:09
--- NOTE | 2016-10-03 16:28 | CONS ---
Date/Time of Note Date/Time of Note DATE: 10/03/16 TIME: 16:23 Assessment/Plan Assessment/Plan Chief Complaint/Hosp Course ID PROGRESS NOTE TOTAL ABX DAY # => VANCO IV + MERREM + FLAGYL #4 + Cancidas #4 24H INTERVAL SUMMARY * EXTUBATED today after => re-intubated 09/29 * Stable, A/A/O * No fevers, WBC downtrend 19.4--> 18.4--> 17.7 * Sputum from ETT grew contaminate fungus EXAM: 70 yo F orally intubated on the Vent, no fevers HEENT: ETT-> Secure to Vent Neck: trachea midline. Heart: S1, S2 CXT: chest rise symmetrical breath sounds clear, diminished basis. 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 Sepsis w/shock back on pressors, persistent lactic acidosis => ABX adjusted yesterday w/Diflucan change to Cancidas + addition Flagyl * leukocytosis improved 2. s/p Perforated sigmoid colon w/abscess * POD# -> s/p 09/21/16 OPERATION:1. Sigmoid colectomy with performance of end colostomy (Reid's procedure), w/Lysis of adhesions. * MICRO: 09/23/16 BODY FLUID CULTURE Final Organism 1 ENTEROCOCCUS SPECIES Organism 2 COAGULASE NEGATIVE STAPH Organism 3 ALPHA HEMOLYTIC STREP SPP . VIRIDANS GROUP 4. POD # ->S/P 09/21/16 Externalization of COMM[employer] ESTATE ASSOCIATE shunt. INDICATION: Possible COMM[employer] ESTATE ASSOCIATE shunt infection, hx of Hydrocephalus, COMM[employer]STATE [employer]OCIATE shunt, abdominal abscess 5. Acute respiratory failure -> orally RE-intubated 09/29 after failed prior extubation to BIPAP 6. CHF w/elevated BNP => (+)Anasarca w/Pleural effusions s/p CT drain 09/30 7. HCAP * Sputum from ETT grew yeast/fungus => CONTAMINANT * CT 09/30 THORA BODY FLUID CULTURE no growth 8. Pancytopenia - sepsis 9. Coagulopathy w/thrombocytopenia 10. (+)Troponin elevation likely type II in the setting of septic shock. Echo from 09/18 showed normal EF and no significant valvular disease. (-)MRSA Nares screen INVASIVES: PICC (09/25/16) , ETT, NGT, VPS, FC, intra-abdominal drainage catheters ABX ALLERGY: PCN CURRENT ABX: # => VANCO IV + MERREM + FLAGYL #4 + Cancidas #4 ID RECOMMENDATIONS 1. Continue current broad spectrum IV ABX coverage 2. Follow Neuro/GI surgery/Cards/Pulm recs 3. Aspiration precautions post extubation 10/03/16 4. Sputum from ETT grew fungus == consistent with contaminant . . . Problems: Consultation Date/Type/Reason Admit Date/Time Sep 15, 2016 at 21:35 Initial Consult Date 09/21/16 Type of Consultation: ID Exam/Review of Systems Vital Signs Vitals Vital Signs Date Time Temp Pulse Resp B/P Pulse Ox O2 Delivery O2 Flow Rate FiO2 10/03/16 15:30 89 19 107/59 100 10/03/16 15:00 Nasal Cannula 10/03/16 12:00 97.8 10/03/16 11:35 4.0 10/03/16 08:50 40 Intake and Output 10/02/16 10/02/16 10/03/16 15:00 23:00 07:00 Intake Total 1384.35 ml 906.526 ml 1166.4 ml Output Total 2332 ml 1664 ml 1362 ml Balance -947.65 ml -757.474 ml -195.6 ml Results Result Diagram: 10/03/16 0450 10/03/16 0450 Results 24 hrs Laboratory Tests Test 10/03/16 04:50 10/03/16 10:30 White Blood Count 17.7 H Red Blood Count 2.89 L Hemoglobin 7.8 L Hematocrit 23.9 L Mean Corpuscular Volume 82.7 Mean Corpuscular Hemoglobin 27.0 L Mean Corpuscular Hemoglobin Concent 32.6 Red Cell Distribution Width 22.8 H Platelet Count 150 # Mean Platelet Volume 13.3 H Neutrophils % 90.7 H Lymphocytes % 3.0 L Monocytes % 4.9 Eosinophils % 0.5 Basophils % 0.2 Nucleated Red Blood Cells % 0.0 Neutrophils # 16.1 H Lymphocytes # 0.5 L Monocytes # 0.9 Eosinophils # 0.1 Basophils # 0.0 Nucleated Red Blood Cells # 0.0 Sodium Level 139 Potassium Level 3.6 Chloride Level 92 L Carbon Dioxide Level 34 H Anion Gap 17 H Blood Urea Nitrogen 26 H Creatinine 0.82 Glucose Level 121 Calcium Level 7.2 L Phosphorus Level 4.5 Magnesium Level 1.9 Vancomycin Level Trough 20.2 *H Blood Gas Specimen Source Blood arterial Arterial Blood Date Drawn 10/03/2016 10:50:59 AM Arterial Blood pH (Temp corrected) 7.474 H Arterial Blood pCO2 (Temp correct) 50.1 H Arterial Blood pO2 (Temp corrected) 99.1 H Arterial Blood HCO3 36.0 H Arterial Blood Base Excess 11.0 H Arterial Blood Oxygen Saturation 96.8 Cain Test ACCEPTAB Arterial Blood Gas Puncture Site Right Radial Arterial Blood Carboxyhemoglobin 0.3 Arterial Blood Methemoglobin 0.5 Blood Gas A-a O2 Differential 128.5 H Oxyhemoglobin Percent 96.0 Total Hemoglobin 9.8 L Blood Gas Temperature 37.0 Blood Gas Actual Respiration Rate 26 Blood Gas Modality VENT - CPAP FiO2 40.0 Blood Gas High PEEP Setting 5.0 Blood Gas Pressure Support 10 Blood Gas Notified Whom TM Blood Gas Notified Time 10/03/2016 10:58:36 AM Medications Medications Current Medications Morphine Sulfate (morphine) 2 mg Q4H PRN IV PAIN Last administered on 08:39; Admin Dose 2 MG; Start 09/15/16 at 23:30 Ondansetron HCl (Zofran Inj) 4 mg Q6H PRN IV NAUSEA AND/OR VOMITING Last administered on 09/26/16 09:23; Admin Dose 4 MG; Start 09/16/16 at 00:30 Acetaminophen (Tylenol Tab) 650 mg Q6H PRN PO PAIN LEVEL 1-3 OR FEVER Last administered on 09/30/16 01:22; Admin Dose 650 MG; Start 09/16/16 at 00:30 Polyethylene Glycol 17 gm 17 gm DAILY PO Last administered on 10/03/16 09:28; Admin Dose 17 GM; Start 09/20/16 at 11:00 Meropenem/Sodium Chloride 50 ml @ 200 mls/hr Q8 IVPB Last administered on 10/03 13:36; Admin Dose 200 MLS/HR; Start 09/20/16 at 22:00 Norepinephrine/ Dextrose (Levophed/D5W) 500 ml @ 1.87 mls/hr TITRATE IV Last administered on 10/01/16 14:05; Admin Dose 3.75 MLS/HR; Start 09/21/16 at 09:00 Acetaminophen/ Hydrocodone Bitart ([place] (5/325)) 1 tab Q4H PRN PO PAIN LEVEL 4 -7 Last administered on 09/28/16 21:20; Admin Dose 1 TAB; Start 09/21/16 at 15: 00 Acetaminophen/ Hydrocodone Bitart ([place] (5/325)) 2 tab Q4H PRN PO PAIN LEVEL 7 -10; Start 09/21/16 at 15:00 Hydromorphone HCl (Dilaudid) 0.5 mg Q2H PRN IV PAIN Last administered on 16:41; Admin Dose 0.5 MG; Start 09/21/16 at 15:00 Hydromorphone HCl (Dilaudid) 1 mg Q2H PRN IV PAIN Last administered on 09:12; Admin Dose 1 MG; Start 09/21/16 at 15:00 Docusate Sodium (Colace) 100 mg BID PRN PO CONSTIPATION; Start 09/21/16 at 15: 00 Enoxaparin Sodium (Lovenox) 40 mg DAILY SC ; Start 09/22/16 at 09:00; Status Future Hold Docusate Sodium (Colace Liquid Cup) 100 mg BID NGT Last administered on 09:28; Admin Dose 100 MG; Start 09/22/16 at 21:00 Pantoprazole (Protonix Iv) 40 mg DAILY@06 IV Last administered on 10/03/16 05: 07; Admin Dose 40 MG; Start 09/26/16 at 06:00 IV Flush (NS 10 ml) 10 ml PRN PRN IV IV PROTOCOL; Start 09/25/16 at 12:00 Spironolactone 50 mg 50 mg DAILY NGT Last administered on 10/03/16 09:28; Admin Dose 50 MG; Start 09/28/16 at 09:00 Dopamine HCl/ Dextrose 250 ml @ 6.053 mls/ hr TITRATE IV Last administered on 09/30/16 04:46; Admin Dose 6.053 MLS/HR; Start 09/29/16 at 11:00 Phenylephrine HCl 40 mg/Dextrose 500 ml @ 75 mls/hr TITRATE IV ; Start 7/23/ 17 at 14:00 Caspofungin 50 mg/ Sodium Chloride 250 ml @ 250 mls/hr Q24H IVPB Last administered on 10/03/16 11:27; Admin Dose 250 MLS/HR; Start 10/01/16 at 12:00 Metronidazole 100 ml @ 100 mls/hr Q8 IVPB Last administered on 10/03/16 13:36 ; Admin Dose 100 MLS/HR; Start 09/30/16 at 14:00 Vancomycin HCl/ Sodium Chloride (Vancocin/NS) 250 ml @ 83.333 mls/ hr Q36H IVPB ; Start 10/03/16 at 16:00 DONNA HERNANDEZ NP Oct 03, 2016 16:28
[2016-10-03] MEDS: VANCOMYCIN 1.25 GM in SOD CHLORIDE 0.9% 250 ML IVPB SCH (17:44)
[2016-10-03] MEDS: FUROSEMIDE 20 MG INJ IV SCH (17:44)
[2016-10-03] MEDS ORDERED: VANCOMYCIN 1 GM in NS 250 ML IVPB SCH (18:00)
[2016-10-04] VITALS (24 sets, daily range): BP systolic 110–135; BP diastolic 59–117; PULSE 84–101; RESP 16–27
[2016-10-04] MEDS: ACETAMINOPHEN 325 MG TAB PO PRN (02:10)
[2016-10-04 04:30] LABS: ABNORMAL IP MESSAGE 1; BASOPHILS % 0.2 % (0.0-2.0); EOSINOPHILS % 0.3 % (0.0-7.0); HEMATOCRIT 25.9 % (37.0-47.0); HEMOGLOBIN 8.3 g/dl (12.0-16.0); LYMPHOCYTES # 0.6 10^3/ul (0.8-2.9); LYMPHOCYTES % 3.7 % (15.0-51.0); MEAN CORPUSCULAR HEMOGLOBIN 27.6 pg (29.0-33.0); MEAN PLATELET VOLUME 12.4 fl (7.4-10.4); MONOCYTE # 0.9 10^3/ul (0.3-0.9); MONOCYTES % 5.7 % (0.0-11.0); NEUTROPHIL # 13.4 10^3/ul (1.6-7.5); NEUTROPHILS % 89.2 % (39.0-77.0); PLATELET COUNT 166 10^3/UL (140-415); RED BLOOD COUNT 3.01 10^6/ul (4.20-5.40); RED CELL DISTRIBUTION WIDTH 22.9 % (11.5-14.5)
[2016-10-04 04:35] LABS: POSITIVE DIFF @See below
[2016-10-04 04:46] LABS: CALCIUM 7.5 mg/dl (8.4-10.2); CREATININE 0.85 mg/dl (0.44-1.00); MAGNESIUM 1.9 mg/dl (1.7-2.5); PHOSPHORUS 4.9 mg/dl (2.5-4.9); POTASSIUM 3.2 mmol/L (3.5-5.1)
[2016-10-04] MEDS: FUROSEMIDE 20 MG INJ IV SCH (06:03)
[2016-10-04] MEDS: MEROPENEM 500MG/50 ML (PMX) 50 ML IVPB SCH ×3 (06:03→21:53)
[2016-10-04] MEDS: PANTOPRAZOLE 40 MG INJ IV SCH (06:04)
[2016-10-04] MEDS: metroNIDAZOLE 500 MG/NS (PMX) 100 ML IVPB SCH ×3 (06:19→21:52)
--- NOTE | 2016-10-04 07:54 | PN ---
Date/Time of Note Date/Time of Note DATE: 10/04/16 TIME: 07:53 Assessment/Plan VTE Prophylaxis VTE Prophylaxis Intervention: other Lines/Catheters IV Catheter Type (from Nrsg): PICC Line Central line still needed: Yes Urinary Cath still in place: Yes Reason Cath still needed: other (indicate) Assessment/Plan Chief Complaint/Hosp Course Nonoliguric acute kidney injury. Etiology secondary ATN -Renal function has been improved with supportive care continue current treatment plan renally dose meds avoid nephrotoxins Hypernatremia Improved Continue free water flushes, Monitor serial sodium levels Hypokalemia secondary to diuretics Improved Replete potassium chloride as needed Aldactone 50 mg daily Monitor closely Volume overload/anasarca secondary CHF, third spacing -Patient remains volume overloaded but improving Diuretics adjusted by cardiology, will defer for management We will monitor electrolytes closely Monitor I's and O's closely Shock, presumed sepsis, Pressors are being weaned off slowly Continue broad-spectrum antibiotics next, follow-up cultures Monitor closely Anemia Monitor H&H levels Mineral bone disorder Monitor calcium phosphorus levels Lactic acidosis secondary to shock -Continue to monitor 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 -Continue treatment plan -Follow-up with surgery Respiratory failure Patient reintubated Chest x-ray ABG reviewed Follow-up with pulmonary History of intracranial hemorrhage in the past status post [employer]ILITY [employer]ISTRATOR shunt placement that has been stable over time -[employer]ACILITY ADMINISTRATOR shunt was externalized during the surgery September 21, 2016 due to abdominal infection, per neurosurgical notes may need to be reconnected once patient stable versus removed Problems: Subjective 24 Hr Interval Summary Free Text/Dictation Patient seen and examined Extubated Currently stable on nasal cannula Adequate urinary output Exam/Review of Systems Vital Signs Vitals Vital Signs Date Time Temp Pulse Resp B/P Pulse Ox O2 Delivery O2 Flow Rate FiO2 10/04/16 06:00 96 22 126/70 100 Nasal Cannula 2.0 10/04/16 04:00 97.8 10/03/16 08:50 40 Intake and Output 10/03/16 10/03/16 10/04/16 15:00 23:00 07:00 Intake Total 652 ml 980 ml 710 ml Output Total 760 ml 2590 ml 1330 ml Balance -108 ml -1610 ml -620 ml Exam HEENT: Head is normocephalic, NECK: Supple. HEART: Irregular LUNGS: Show diminished breath sounds at base. ABDOMEN: Soft, nontender to palpation without rebound or guarding. EXTREMITIES: Negative for clubbing, cyanosis. DERMATOLOGIC: No rashes. MUSCULOSKELETAL: No joint effusions, NEUROLOGIC: No change in exam. Results Result Diagram: 10/04/16 0350 10/04/16 0350 Results 24 hrs Laboratory Tests Test 10/03/16 10:30 10/04/16 03:50 Blood Gas Specimen Source Blood arterial Arterial Blood Date Drawn 10/03/2016 10:50:59 AM Arterial Blood pH (Temp corrected) 7.474 H Arterial Blood pCO2 (Temp correct) 50.1 H Arterial Blood pO2 (Temp corrected) 99.1 H Arterial Blood HCO3 36.0 H Arterial Blood Base Excess 11.0 H Arterial Blood Oxygen Saturation 96.8 Cain Test ACCEPTAB Arterial Blood Gas Puncture Site Right Radial Arterial Blood Carboxyhemoglobin 0.3 Arterial Blood Methemoglobin 0.5 Blood Gas A-a O2 Differential 128.5 H Oxyhemoglobin Percent 96.0 Total Hemoglobin 9.8 L Blood Gas Temperature 37.0 Blood Gas Actual Respiration Rate 26 Blood Gas Modality VENT - CPAP FiO2 40.0 Blood Gas High PEEP Setting 5.0 Blood Gas Pressure Support 10 Blood Gas Notified Whom TM Blood Gas Notified Time 10/03/2016 10:58:36 AM White Blood Count 15.0 H Red Blood Count 3.01 L Hemoglobin 8.3 L Hematocrit 25.9 L Mean Corpuscular Volume 86.0 Mean Corpuscular Hemoglobin 27.6 L Mean Corpuscular Hemoglobin Concent 32.0 Red Cell Distribution Width 22.9 H Platelet Count 166 Mean Platelet Volume 12.4 H Neutrophils % 89.2 H Lymphocytes % 3.7 L Monocytes % 5.7 Eosinophils % 0.3 Basophils % 0.2 Nucleated Red Blood Cells % 0.0 Neutrophils # 13.4 H Lymphocytes # 0.6 L Monocytes # 0.9 Eosinophils # 0.0 Basophils # 0.0 Nucleated Red Blood Cells # 0.0 Sodium Level 140 Potassium Level 3.2 L Chloride Level 92 L Carbon Dioxide Level 38 H Anion Gap 13 Blood Urea Nitrogen 25 H Creatinine 0.85 Glucose Level 157 Calcium Level 7.5 L Phosphorus Level 4.9 Magnesium Level 1.9 Medications Medications Current Medications Morphine Sulfate (morphine) 2 mg Q4H PRN IV PAIN Last administered on t 08:39; Admin Dose 2 MG; Start 09/15/16 at 23:30 Ondansetron HCl (Zofran Inj) 4 mg Q6H PRN IV NAUSEA AND/OR VOMITING Last administered on 09/26/16 09:23; Admin Dose 4 MG; Start 09/16/16 at 00:30 Acetaminophen (Tylenol Tab) 650 mg Q6H PRN PO PAIN LEVEL 1-3 OR FEVER Last administered on 10/04/16 02:10; Admin Dose 650 MG; Start 09/16/16 at 00:30 Polyethylene Glycol 17 gm 17 gm DAILY PO Last administered on 10/03/16 09:28; Admin Dose 17 GM; Start 09/20/16 at 11:00 Meropenem/Sodium Chloride 50 ml @ 200 mls/hr Q8 IVPB Last administered on 10/04 06:03; Admin Dose 200 MLS/HR; Start 09/20/16 at 22:00 Norepinephrine/ Dextrose (Levophed/D5W) 500 ml @ 1.87 mls/hr TITRATE IV Last administered on 10/01/16 14:05; Admin Dose 3.75 MLS/HR; Start 09/21/16 at 09:00 Acetaminophen/ Hydrocodone Bitart ([place] (5/325)) 1 tab Q4H PRN PO PAIN LEVEL 4 -7 Last administered on 09/28/16 21:20; Admin Dose 1 TAB; Start 09/21/16 at 15: 00 Acetaminophen/ Hydrocodone Bitart ([place] (5/325)) 2 tab Q4H PRN PO PAIN LEVEL 7 -10; Start 09/21/16 at 15:00 Hydromorphone HCl (Dilaudid) 0.5 mg Q2H PRN IV PAIN Last administered on 16:41; Admin Dose 0.5 MG; Start 09/21/16 at 15:00 Hydromorphone HCl (Dilaudid) 1 mg Q2H PRN IV PAIN Last administered on 09:12; Admin Dose 1 MG; Start 09/21/16 at 15:00 Docusate Sodium (Colace) 100 mg BID PRN PO CONSTIPATION; Start 09/21/16 at 15: 00 Enoxaparin Sodium (Lovenox) 40 mg DAILY SC ; Start 09/22/16 at 09:00; Status Future Hold Docusate Sodium (Colace Liquid Cup) 100 mg BID NGT Last administered on 21:29; Admin Dose 100 MG; Start 09/22/16 at 21:00 Pantoprazole (Protonix Iv) 40 mg DAILY@06 IV Last administered on 10/04/16 06: 04; Admin Dose 40 MG; Start 09/26/16 at 06:00 IV Flush (NS 10 ml) 10 ml PRN PRN IV IV PROTOCOL; Start 09/25/16 at 12:00 Spironolactone 50 mg 50 mg DAILY NGT Last administered on 10/03/16 09:28; Admin Dose 50 MG; Start 09/28/16 at 09:00 Dopamine HCl/ Dextrose 250 ml @ 6.053 mls/ hr TITRATE IV Last administered on 09/30/16 04:46; Admin Dose 6.053 MLS/HR; Start 09/29/16 at 11:00 Phenylephrine HCl 40 mg/Dextrose 500 ml @ 75 mls/hr TITRATE IV ; Start at 14:00 Caspofungin 50 mg/ Sodium Chloride 250 ml @ 250 mls/hr Q24H IVPB Last administered on 10/03/16 11:27; Admin Dose 250 MLS/HR; Start 10/01/16 at 12:00 Metronidazole 100 ml @ 100 mls/hr Q8 IVPB Last administered on 10/04/16 06:19 ; Admin Dose 100 MLS/HR; Start 09/30/16 at 14:00 Vancomycin HCl/ Sodium Chloride (Vancocin/NS) 250 ml @ 83.333 mls/ hr Q36H IVPB Last administered on 10/03/16 17:44; Admin Dose 83.333 MLS/HR; Start at 16:00 KIRAN CASTILLO DO Oct 04, 2016 07:54
[2016-10-04] MEDS ORDERED: POTASSIUM CHLORIDE 250 ML IVPB ONE (08:00)
[2016-10-04 08:33] LABS: ANISOCYTOSIS 1+ (0-0); HYPOCHROMASIA 3+ (0-0); MICROCYTOSIS 1+ (0-0); MONOCYTES % (M) 3 % (0-11); PLATELET ESTIMATE DECREASED; POLYCHROMASIA 3+ (0-0)
[2016-10-04] MEDS: SPIRONOLACTONE 50 MG TAB NGT SCH (08:48)
[2016-10-04] MEDS: DOCUSATE SODIUM 10 MG/ML (10ML CUP) NGT SCH ×2 (08:48→21:52)
[2016-10-04] MEDS: POLYETHYLENE GLYCOL 17 GM PACKET PO SCH (08:48)
--- NOTE | 2016-10-04 09:24 | CONS ---
Date/Time of Note Date/Time of Note DATE: 10/04/16 TIME: 09:22 Assessment/Plan Assessment/Plan Chief Complaint/Hosp Course Acute respiratory failure: Reintubated 09/29 after failing BiPAP. Now extubated again 10/03. Doing well. Acute diastolic heart failure: Secondary to volume resuscitation in setting of low albumin and third spacing. Significant anasarca. Diuresing well Paroxysmal afib: converted on amiodarone. Converted back to afib on dopamine but now off and back in sinus Septic shock: from intraabdominal abscess and possible infected RN SANE shunt. S/p sigmoid colectomy. Was off pressors but transiently required pressor support and 09/30 after reintubation. Now off Tension pneumothorax: due to thoracentesis. s/p chest tube 09/30 NSTEMI: Trop mildly elevated likely type II in the setting of septic shock. Echo from 09/18 showed normal EF and no significant valvular disease. Repeat trop normalized Diverticulitis complicated by abscess s/p sigmoid colectomy and now colostomy Coagulopathy: ?DIC. Resolved h/o ICH with RN SANE shunt -decrease lasix to 20mg IV daily for slower diuresis as JVP normal but still overall anasarca -can restart metoprolol if BP remains stable Problems: Consultation Date/Type/Reason Admit Date/Time Sep 15, 2016 at 21:35 Initial Consult Date 09/21/16 Type of Consultation: Cardiology 24 HR Interval Summary Free Text/Dictation Extubated , doing well. Off pressor support. No SOB. Making large amounts of urine still. Exam/Review of Systems Vital Signs Vitals Vital Signs Date Time Temp Pulse Resp B/P Pulse Ox O2 Delivery O2 Flow Rate FiO2 10/04/16 06:00 96 22 126/70 100 Nasal Cannula 2.0 10/04/16 04:00 97.8 10/03/16 08:50 40 Intake and Output 10/03/16 10/03/16 10/04/16 15:00 23:00 07:00 Intake Total 652 ml 980 ml 710 ml Output Total 760 ml 2590 ml 1330 ml Balance -108 ml -1610 ml -620 ml Exam Constitutional: alert, oriented Psych: no complaints Head: atraumatic, normocephalic Neck: No jvd Respiratory: diminished breath sounds, No clear to auscultation Cardiovascular: edema (1-2+) Gastrointestinal: non-tender, soft Neurological: nl mental status Results Result Diagram: 10/04/16 0350 10/04/16 0350 Results 24 hrs Laboratory Tests Test 10/03/16 10:30 10/04/16 03:50 Blood Gas Specimen Source Blood arterial Arterial Blood Date Drawn 10/03/2016 10:50:59 AM Arterial Blood pH (Temp corrected) 7.474 H Arterial Blood pCO2 (Temp correct) 50.1 H Arterial Blood pO2 (Temp corrected) 99.1 H Arterial Blood HCO3 36.0 H Arterial Blood Base Excess 11.0 H Arterial Blood Oxygen Saturation 96.8 Cain Test ACCEPTAB Arterial Blood Gas Puncture Site Right Radial Arterial Blood Carboxyhemoglobin 0.3 Arterial Blood Methemoglobin 0.5 Blood Gas A-a O2 Differential 128.5 H Oxyhemoglobin Percent 96.0 Total Hemoglobin 9.8 L Blood Gas Temperature 37.0 Blood Gas Actual Respiration Rate 26 Blood Gas Modality VENT - CPAP FiO2 40.0 Blood Gas High PEEP Setting 5.0 Blood Gas Pressure Support 10 Blood Gas Notified Whom TM Blood Gas Notified Time 10/03/2016 10:58:36 AM White Blood Count 15.0 H Red Blood Count 3.01 L Hemoglobin 8.3 L Hematocrit 25.9 L Mean Corpuscular Volume 86.0 Mean Corpuscular Hemoglobin 27.6 L Mean Corpuscular Hemoglobin Concent 32.0 Red Cell Distribution Width 22.9 H Platelet Count 166 Mean Platelet Volume 12.4 H Neutrophils % 89.2 H Segmented Neutrophils % (Manual) 94 H Lymphocytes % 3.7 L Lymphocytes % (Manual) 3 L Monocytes % 5.7 Monocytes % (Manual) 3 Eosinophils % 0.3 Basophils % 0.2 Nucleated Red Blood Cells % 0.0 Neutrophils # 13.4 H Absolute Lymphocytes (Manual) 0.4 L Lymphocytes # 0.6 L Monocytes # 0.9 Absolute Monocytes (Manual) 0.4 Eosinophils # 0.0 Basophils # 0.0 Nucleated Red Blood Cells # 0.0 Smudge Cells % 2 H Platelet Estimate DECREASED Polychromasia 3+ Hypochromasia 3+ Anisocytosis 1+ Microcytosis 1+ Sodium Level 140 Potassium Level 3.2 L Chloride Level 92 L Carbon Dioxide Level 38 H Anion Gap 13 Blood Urea Nitrogen 25 H Creatinine 0.85 Glucose Level 157 Calcium Level 7.5 L Phosphorus Level 4.9 Magnesium Level 1.9 Medications Medications Current Medications Morphine Sulfate (morphine) 2 mg Q4H PRN IV PAIN Last administered on 08:39; Admin Dose 2 MG; Start 09/15/16 at 23:30 Ondansetron HCl (Zofran Inj) 4 mg Q6H PRN IV NAUSEA AND/OR VOMITING Last administered on 09/26/16 09:23; Admin Dose 4 MG; Start 09/16/16 at 00:30 Acetaminophen (Tylenol Tab) 650 mg Q6H PRN PO PAIN LEVEL 1-3 OR FEVER Last administered on 10/04/16 02:10; Admin Dose 650 MG; Start 09/16/16 at 00:30 Polyethylene Glycol 17 gm 17 gm DAILY PO Last administered on 10/03/16 09:28; Admin Dose 17 GM; Start 09/20/16 at 11:00 Meropenem/Sodium Chloride 50 ml @ 200 mls/hr Q8 IVPB Last administered on 10/04 06:03; Admin Dose 200 MLS/HR; Start 09/20/16 at 22:00 Norepinephrine/ Dextrose (Levophed/D5W) 500 ml @ 1.87 mls/hr TITRATE IV Last administered on 10/01/16 14:05; Admin Dose 3.75 MLS/HR; Start 09/21/16 at 09:00 Acetaminophen/ Hydrocodone Bitart ([place] (5/325)) 1 tab Q4H PRN PO PAIN LEVEL 4 -7 Last administered on 09/28/16 21:20; Admin Dose 1 TAB; Start 09/21/16 at 15: 00 Acetaminophen/ Hydrocodone Bitart ([place] (5/325)) 2 tab Q4H PRN PO PAIN LEVEL 7 -10; Start 09/21/16 at 15:00 Hydromorphone HCl (Dilaudid) 0.5 mg Q2H PRN IV PAIN Last administered on 16:41; Admin Dose 0.5 MG; Start 09/21/16 at 15:00 Hydromorphone HCl (Dilaudid) 1 mg Q2H PRN IV PAIN Last administered on 09:12; Admin Dose 1 MG; Start 09/21/16 at 15:00 Docusate Sodium (Colace) 100 mg BID PRN PO CONSTIPATION; Start 09/21/16 at 15: 00 Enoxaparin Sodium (Lovenox) 40 mg DAILY SC ; Start 09/22/16 at 09:00; Status Future Hold Docusate Sodium (Colace Liquid Cup) 100 mg BID NGT Last administered on 21:29; Admin Dose 100 MG; Start 09/22/16 at 21:00 Pantoprazole (Protonix Iv) 40 mg DAILY@06 IV Last administered on 10/04/16 06: 04; Admin Dose 40 MG; Start 09/26/16 at 06:00 IV Flush (NS 10 ml) 10 ml PRN PRN IV IV PROTOCOL; Start 09/25/16 at 12:00 Spironolactone 50 mg 50 mg DAILY NGT Last administered on 10/03/16 09:28; Admin Dose 50 MG; Start 09/28/16 at 09:00 Dopamine HCl/ Dextrose 250 ml @ 6.053 mls/ hr TITRATE IV Last administered on 09/30/16 04:46; Admin Dose 6.053 MLS/HR; Start 09/29/16 at 11:00 Phenylephrine HCl 40 mg/Dextrose 500 ml @ 75 mls/hr TITRATE IV ; Start at 14:00 Caspofungin 50 mg/ Sodium Chloride 250 ml @ 250 mls/hr Q24H IVPB Last administered on 10/03/16 11:27; Admin Dose 250 MLS/HR; Start 10/01/16 at 12:00 Metronidazole 100 ml @ 100 mls/hr Q8 IVPB Last administered on 10/04/16 06:19 ; Admin Dose 100 MLS/HR; Start 09/30/16 at 14:00 Vancomycin HCl 1.25 gm/Sodium Chloride 250 ml @ 83.333 mls/ hr Q36H IVPB Last administered on 10/03/16 17:44; Admin Dose 83.333 MLS/HR; Start 10/03/16 at 16: 00 Potassium Chloride (KCl 40 MEQ/250 ML NS) 250 ml @ 62.5 mls/hr ONCE ONCE IVPB Last administered on 10/04/16 08:55; Admin Dose 62.5 MLS/HR; Start 10/04/16 at 08:00; Stop 10/04/16 at 11:59 GUSTAVO RAMON Oct 04, 2016 09:24
--- NOTE | 2016-10-04 10:39 | PN ---
Date/Time of Note Date/Time of Note DATE: 10/04/16 TIME: 10:19 Assessment/Plan VTE Prophylaxis VTE Prophylaxis Intervention: SCD's Lines/Catheters IV [facility] Type (from [facility] PICC Line Central line still needed: Yes Urinary Cath still in place: Yes Reason Cath still needed: other (indicate) Assessment/Plan Assessment/Plan 1. Sigmoid colon abscess, likely a complication of diverticulitis - s/p sigmoid colectomy with end colostomy (Reid's procedure) and adhesiolysis on 09/21/16 - continue antibiotics. Follow-up surgery recommendation. ID is on board. 2. Status post septic shock -Continue antibiotics and IV fluid. -Pressors as needed. 3. Ventilator dependent respiratory failure: Status post re-extubation yesterday. Management per pulmonary. 4. Left pleural effusion: Status post thoracentesis, complicated with pneumothorax status post placement of a chest tube. Status post removal 09/30 4. History of ICH, s/p ventriculoperitoneal shunt placement: Neurosurg on board 5. Paroxysmal A. fib: Now in sinus rhythm status post amiodarone and dopamine. Cardiology on board, appreciate recommendation 6. Acute renal insufficiency: Resolved. Appreciate nephrology input. 7. s/p NSTEMI: Likely secondary to septic shock. Cardiology on board. 8. Volume overload state: Continue diuresis. Patient still has bilateral lower extremity pitting edema. 9. Anemia, likely a combination of iron deficiency and anemia of chronic disease: Previous notes mention iron replacement. Given patient is extubated, will start her on ferrous sulfate once she passes swallow evaluation. She did fail swallow evaluation today however. 10. Hypokalemia: Replete 11. Dysphagia: Patient had failed swallow evaluation just a little while ago. Will place on NG tube. Subjective 24 Hr Interval Summary Free Text/Dictation Patient was extubated yesterday. For now she appears to stable. She just failed swallow evaluation just a little while ago. Exam/Review of Systems Vital Signs Vitals Vital Signs Date Time Temp Pulse Resp B/P Pulse Ox O2 Delivery O2 Flow Rate FiO2 10/04/16 06:00 96 22 126/70 100 Nasal Cannula 2.0 10/04/16 04:00 97.8 10/03/16 08:50 40 Intake and Output 10/03/16 10/03/16 10/04/16 15:00 23:00 07:00 Intake Total 652 ml 980 ml 710 ml Output Total 760 ml 2590 ml 1330 ml Balance -108 ml -1610 ml -620 ml Exam Constitutional: other (Patient is awake and that she follows commands however she appears lethargic.) Head: atraumatic, normocephalic Eyes: PERRL Respiratory: diminished breath sounds, other (There is a shunt in the left upper chest.) Cardiovascular: other (Tachycardic with regular rhythm) Gastrointestinal: other (Colostomy bag in place with brownish to liquid output. ), soft Extremities: edema Results Result Diagram: 10/04/16 0350 10/04/16 0350 Results 24 hrs Laboratory Tests Test 10/03/16 10:30 10/04/16 03:50 Blood Gas Specimen Source Blood arterial Arterial Blood Date Drawn 10/03/2016 10:50:59 AM Arterial Blood pH (Temp corrected) 7.474 H Arterial Blood pCO2 (Temp correct) 50.1 H Arterial Blood pO2 (Temp corrected) 99.1 H Arterial Blood HCO3 36.0 H Arterial Blood Base Excess 11.0 H Arterial Blood Oxygen Saturation 96.8 Cain Test ACCEPTAB Arterial Blood Gas Puncture Site Right Radial Arterial Blood Carboxyhemoglobin 0.3 Arterial Blood Methemoglobin 0.5 Blood Gas A-a O2 Differential 128.5 H Oxyhemoglobin Percent 96.0 Total Hemoglobin 9.8 L Blood Gas Temperature 37.0 Blood Gas Actual Respiration Rate 26 Blood Gas Modality VENT - CPAP FiO2 40.0 Blood Gas High PEEP Setting 5.0 Blood Gas Pressure Support 10 Blood Gas Notified Whom TM Blood Gas Notified Time 10/03/2016 10:58:36 AM White Blood Count 15.0 H Red Blood Count 3.01 L Hemoglobin 8.3 L Hematocrit 25.9 L Mean Corpuscular Volume 86.0 Mean Corpuscular Hemoglobin 27.6 L Mean Corpuscular Hemoglobin Concent 32.0 Red Cell Distribution Width 22.9 H Platelet Count 166 Mean Platelet Volume 12.4 H Neutrophils % 89.2 H Segmented Neutrophils % (Manual) 94 H Lymphocytes % 3.7 L Lymphocytes % (Manual) 3 L Monocytes % 5.7 Monocytes % (Manual) 3 Eosinophils % 0.3 Basophils % 0.2 Nucleated Red Blood Cells % 0.0 Neutrophils # 13.4 H Absolute Lymphocytes (Manual) 0.4 L Lymphocytes # 0.6 L Monocytes # 0.9 Absolute Monocytes (Manual) 0.4 Eosinophils # 0.0 Basophils # 0.0 Nucleated Red Blood Cells # 0.0 Smudge Cells % 2 H Platelet Estimate DECREASED Polychromasia 3+ Hypochromasia 3+ Anisocytosis 1+ Microcytosis 1+ Sodium Level 140 Potassium Level 3.2 L Chloride Level 92 L Carbon Dioxide Level 38 H Anion Gap 13 Blood Urea Nitrogen 25 H Creatinine 0.85 Glucose Level 157 Calcium Level 7.5 L Phosphorus Level 4.9 Magnesium Level 1.9 Medications Medications Current Medications Morphine Sulfate (morphine) 2 mg Q4H PRN IV PAIN Last administered on 08:39; Admin Dose 2 MG; Start 09/15/16 at 23:30 Ondansetron HCl (Zofran Inj) 4 mg Q6H PRN IV NAUSEA AND/OR VOMITING Last administered on 09/26/16 09:23; Admin Dose 4 MG; Start 09/16/16 at 00:30 Acetaminophen (Tylenol Tab) 650 mg Q6H PRN PO PAIN LEVEL 1-3 OR FEVER Last administered on 10/04/16 02:10; Admin Dose 650 MG; Start 09/16/16 at 00:30 Polyethylene Glycol 17 gm 17 gm DAILY PO Last administered on 10/03/16 09:28; Admin Dose 17 GM; Start 09/20/16 at 11:00 Meropenem/Sodium Chloride 50 ml @ 200 mls/hr Q8 IVPB Last administered on 10/04 06:03; Admin Dose 200 MLS/HR; Start 09/20/16 at 22:00 Norepinephrine/ Dextrose (Levophed/D5W) 500 ml @ 1.87 mls/hr TITRATE IV Last administered on 10/01/16 14:05; Admin Dose 3.75 MLS/HR; Start 09/21/16 at 09:00 Acetaminophen/ Hydrocodone Bitart ([place] (5/325)) 1 tab Q4H PRN PO PAIN LEVEL 4 -7 Last administered on 09/28/16 21:20; Admin Dose 1 TAB; Start 09/21/16 at 15: 00 Acetaminophen/ Hydrocodone Bitart ([place] (5/325)) 2 tab Q4H PRN PO PAIN LEVEL 7 -10; Start 09/21/16 at 15:00 Hydromorphone HCl (Dilaudid) 0.5 mg Q2H PRN IV PAIN Last administered on 16:41; Admin Dose 0.5 MG; Start 09/21/16 at 15:00 Hydromorphone HCl (Dilaudid) 1 mg Q2H PRN IV PAIN Last administered on 09:12; Admin Dose 1 MG; Start 09/21/16 at 15:00 Docusate Sodium (Colace) 100 mg BID PRN PO CONSTIPATION; Start 09/21/16 at 15: 00 Enoxaparin Sodium (Lovenox) 40 mg DAILY SC ; Start 09/22/16 at 09:00; Status Future Hold Docusate Sodium (Colace Liquid Cup) 100 mg BID NGT Last administered on 21:29; Admin Dose 100 MG; Start 09/22/16 at 21:00 Pantoprazole (Protonix Iv) 40 mg DAILY@06 IV Last administered on 10/04/16 06: 04; Admin Dose 40 MG; Start 09/26/16 at 06:00 IV Flush (NS 10 ml) 10 ml PRN PRN IV IV PROTOCOL; Start 09/25/16 at 12:00 Spironolactone 50 mg 50 mg DAILY NGT Last administered on 10/03/16 09:28; Admin Dose 50 MG; Start 09/28/16 at 09:00 Dopamine HCl/ Dextrose 250 ml @ 6.053 mls/ hr TITRATE IV Last administered on 09/30/16 04:46; Admin Dose 6.053 MLS/HR; Start 09/29/16 at 11:00 Phenylephrine HCl 40 mg/Dextrose 500 ml @ 75 mls/hr TITRATE IV ; Start at 14:00 Caspofungin 50 mg/ Sodium Chloride 250 ml @ 250 mls/hr Q24H IVPB Last administered on 10/03/16 11:27; Admin Dose 250 MLS/HR; Start 10/01/16 at 12:00 Metronidazole 100 ml @ 100 mls/hr Q8 IVPB Last administered on 10/04/16 06:19 ; Admin Dose 100 MLS/HR; Start 09/30/16 at 14:00 Vancomycin HCl 1.25 gm/Sodium Chloride 250 ml @ 83.333 mls/ hr Q36H IVPB Last administered on 10/03/16 17:44; Admin Dose 83.333 MLS/HR; Start 10/03/16 at 16: 00 Potassium Chloride (KCl 40 MEQ/250 ML NS) 250 ml @ 62.5 mls/hr ONCE ONCE IVPB Last administered on 10/04/16 08:55; Admin Dose 62.5 MLS/HR; Start 10/04/16 at 08:00; Stop 10/04/16 at 11:59 Furosemide (Lasix) 20 mg DAILY@06 IV ; Start 10/05/16 at 06:00 CORTNEY KANG MD Oct 04, 2016 10:29
[2016-10-04] MEDS: CASPOFUNGIN 50 MG in SOD CHLORIDE 0.9% 250 ML IVPB SCH (11:07)
--- NOTE | 2016-10-04 11:38 | PN ---
Date/Time of Note Date/Time of Note DATE: 10/04/16 TIME: 11:27 Assessment/Plan Lines/Catheters IV Catheter Type (from Nrs): PICC Line Shore in Place (from Nrs): Yes Assessment/Plan Assessment/Plan [facility] Progress Note Date of Service: 10/04/2016 Place of service: [facility] [place] ICU Today's Assessment & Plan: Overall remains critically ill, but continues to improve. Significantly improved compared to yesterday. Has remained extubated earlier today and seems to be breathing without difficulty. Abd remain benign. No indication for acute surgical intervention. With above assessment, I recommended the following for today: 1. Continue aggressive medical management 2. Continue wound VAC; dressing change 3 times a week 3. Cont aggressive pulmonary toilet 4. Cont gentle diuresis per Dr. Sanchez's direction 5. Labs in am 6. Please maintain multidisciplinary discussion regarding fluid intake, CODE STATUS, and other major medical decisions since this is a fragile surgical patient with recent sepsis and shock 7. Targeted antimicrobial therapy to culture results 8. PT OT 9. Management of [employer] shunt per Dr. Miner 10. Repeat swallowing test and if she passes, to start oral intake with regular diet 11. Keep in the ICU today 12. Social work and case management to please start working on disposition planning (rehab versus SNF) Thank you again for your great care of this very pleasant patient and wonderful family. If there are any questions, please feel free to call me at [phone]. Nature of presenting problem: High severity Please note that, given the extensive number of diagnoses or management options , the extensive amount and/or complexity of data needed to be reviewed, and I risk of complications and/or morbidity or mortality, this qualifies as high complexity type of decision-making. Disclaimer: Inadvertent spelling and grammatical errors are likely due to EHR/ dictation software use and do not reflect on the quality of delivered patient care. Also, please note that the electronic time recorded on this node does not necessarily reflect the actual time of the visit. 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 S/p IR drainage 09/09/16 with removal of 20 cc pus and placement of a 10 Fr. pigtail catheter at [facility]. D/c home 09/12/16. Re-presented to [facility] 09/15/16 after being diverted from [facility] (due to internal disaster diversion) where CT was done showing adequate placement of the percutaneous drain near the sigmoid colon and decompressed sigmoid colon abscess, no obvious free air or significant spillage of stool in the abdominal cavity, and incidental finding of tail of the [employer] WORK[employer] shunt in the pelvis (new from right upper quadrant position of the same drain on the CT scan at [facility]). Transfer to [facility] [place] 09/15/2016 for further cares. S/p upsizing of drain to 12 Fr pigtail on 09/17/16 (communication with colon demonstrated; no obvious free communication to rest of peritoneal space). Patient decompensated in the early hours of the morning on 09/21/2016 and had to be transferred to the intensive care unit with need for endotracheal tube intubation, central line placement, and resuscitation for treatment of shock with lactic acidosis and evidence of peritonitis and free air on the new chest, abdomen, and pelvis CT scan. S/p a rather challenging sigmoid colectomy with performance of end colostomy (Reid's procedure), takedown of splenic flexure of the colon, lysis of adhesions (60 minutes), and abdominal lavage at [facility] on 09/21/16; diagnosis of colon ischemia (distal transverse colon and descending colon) during reentry through recent laparotomy incision with exploration of abdominal cavity, takedown of colostomy, completion left hemicolectomy with resection of distal transverse colon, lysis of adhesions, abdominal lavage, performance of an end colostomy [facility] 09/24/16. Extubated post op evening of 09/25/16. Decompensation with intubation and restart of pressors . Right-sided pneumothorax after drainage of right pleural effusion requiring chest tube placement 09/30/2016. Extubated 10/03/2016. Comorbidities: 1. Perforated sigmoid colon (see below) 2. Status post ventriculoperitoneal shunt placement. 3. Status post prior hysterectomy and bilateral salpingo-oophorectomy through Pfannenstiel incision 4. S/p IR drainage 09/09/16 with removal of 20 cc pus and placement of a 10 Fr. pigtail catheter at [facility]. 5. Readmission to [facility] 09/15/16 with upsizing of drain to 12 Fr pigtail on (communication with colon demonstrated; no obvious free communication to rest of peritoneal space). Septic shock with multiorgan failure 09/21/2016 requiring ICU admission with intubation and pressors. 6. S/p a rather challenging sigmoid colectomy with performance of end colostomy (Reid's procedure), takedown of splenic flexure of the colon, lysis of adhesions (60 minutes), and abdominal lavage at [facility] on 09/21/16 7. Colon ischemia (distal transverse colon and descending colon) 8. S/p reentry through recent laparotomy incision with exploration of abdominal cavity, takedown of colostomy, completion left hemicolectomy with resection of distal transverse colon, lysis of adhesions, abdominal lavage, performance of an end colostomy [facility] 09/24/16 Subjective: Remained extubated and no major events or complaints overnight. Reports breathing is relatively easy. Complains of abdominal pain. No observed or reported n/v/d; no observed or reported sob or cp; + bowel activity; - activity. Objective: Vitals: See below I's & O's: See below Exam: GENERAL: On exam, the patient was lying in bed and appeared to be comfortable and in no acute distress. ABDOMEN: Soft, nontender and nondistended. Incision dressings are clean, dry and intact without any obvious evidence of underlying erythema, edema, discharge , or hernia. I observed the dressing change and the wound beds appear to be with nice beefy red granulation tissue. Surgical drain ss without any evidence of enteric contents. There are no peritoneal signs or guarding. Ostomy appears to be viable and productive with stool and air in the bag. SKIN: Skin appears to be pink and feels warm to touch. NEUROLOGIC: Patient appears to be awake, alert, and follows simple commands. Voice is somewhat weak but able to say 1-2 word sentences and stronger than yesterday. Labs: See below Exam/Review of Systems Vital Signs Vitals Vital Signs Date Time Temp Pulse Resp B/P Pulse Ox O2 Delivery O2 Flow Rate FiO2 10/04/16 06:00 96 22 126/70 100 Nasal Cannula 2.0 10/04/16 04:00 97.8 10/03/16 08:50 40 Intake and Output 10/03/16 10/03/16 10/04/16 15:00 23:00 07:00 Intake Total 652 ml 980 ml 710 ml Output Total 760 ml 2590 ml 1330 ml Balance -108 ml -1610 ml -620 ml Results Result Diagram: 10/04/16 0350 10/04/16 0350 ALEXSANDER DUARTE M.D. Oct 04, 2016 11:37
--- NOTE | 2016-10-04 14:28 | CONS ---
Date/Time of Note Date/Time of Note DATE: 10/04/16 TIME: 14:27 Consult Date/Type/Reason Admit Date/Time Sep 15, 2016 at 21:35 Initial Consult Date 09/21/16 Type of Consultation: Pulmonary Subjective Patient extubated yesterday awake alert comfortable. No events. Objective Vital Signs Date Time Temp Pulse Resp B/P Pulse Ox O2 Delivery O2 Flow Rate FiO2 10/04/16 12:00 90 10/04/16 11:00 20 110/61 99 Nasal Cannula 2.0 10/04/16 08:00 98.0 10/03/16 08:50 40 Intake and Output 10/03/16 10/03/16 10/04/16 15:00 23:00 07:00 Intake Total 652 ml 980 ml 710 ml Output Total 760 ml 2590 ml 1405 ml Balance -108 ml -1610 ml -695 ml Exam PHYSICAL EXAMINATION GENERAL: Chronically ill-appearing lady nasal cannula oxygen speech therapist at bedside this morning. VITAL SIGNS: see below. HEENT: Pupils equal, round, and reactive to light. CARDIAC: S1, S2, 1/6 systolic ejection murmur CHEST: Diminished air entry bilaterally. Chest tube placed in left lung. ABDOMEN: Mildly distended. Bowel sounds present no guarding or rebound EXTREMITIES: No cyanosis, clubbing edema +1 NEUROLOGIC: Generalized weakness Results/Medications Result Diagram: 10/04/16 0350 10/04/16 0350 Results 24 hrs Laboratory Tests Test 10/04/16 03:50 White Blood Count 15.0 H Red Blood Count 3.01 L Hemoglobin 8.3 L Hematocrit 25.9 L Mean Corpuscular Volume 86.0 Mean Corpuscular Hemoglobin 27.6 L Mean Corpuscular Hemoglobin Concent 32.0 Red Cell Distribution Width 22.9 H Platelet Count 166 Mean Platelet Volume 12.4 H Neutrophils % 89.2 H Segmented Neutrophils % (Manual) 94 H Lymphocytes % 3.7 L Lymphocytes % (Manual) 3 L Monocytes % 5.7 Monocytes % (Manual) 3 Eosinophils % 0.3 Basophils % 0.2 Nucleated Red Blood Cells % 0.0 Neutrophils # 13.4 H Absolute Lymphocytes (Manual) 0.4 L Lymphocytes # 0.6 L Monocytes # 0.9 Absolute Monocytes (Manual) 0.4 Eosinophils # 0.0 Basophils # 0.0 Nucleated Red Blood Cells # 0.0 Smudge Cells % 2 H Platelet Estimate DECREASED Polychromasia 3+ Hypochromasia 3+ Anisocytosis 1+ Microcytosis 1+ Sodium Level 140 Potassium Level 3.2 L Chloride Level 92 L Carbon Dioxide Level 38 H Anion Gap 13 Blood Urea Nitrogen 25 H Creatinine 0.85 Glucose Level 157 Calcium Level 7.5 L Phosphorus Level 4.9 Magnesium Level 1.9 Medications Current Medications Morphine Sulfate (morphine) 2 mg Q4H PRN IV PAIN Last administered on 08:39; Admin Dose 2 MG; Start 09/15/16 at 23:30 Ondansetron HCl (Zofran Inj) 4 mg Q6H PRN IV NAUSEA AND/OR VOMITING Last administered on 09/26/16 09:23; Admin Dose 4 MG; Start 09/16/16 at 00:30 Acetaminophen (Tylenol Tab) 650 mg Q6H PRN PO PAIN LEVEL 1-3 OR FEVER Last administered on 10/04/16 02:10; Admin Dose 650 MG; Start 09/16/16 at 00:30 Polyethylene Glycol 17 gm 17 gm DAILY PO Last administered on 10/03/16 09:28; Admin Dose 17 GM; Start 09/20/16 at 11:00 Meropenem/Sodium Chloride 50 ml @ 200 mls/hr Q8 IVPB Last administered on 10/04 06:03; Admin Dose 200 MLS/HR; Start 09/20/16 at 22:00 Norepinephrine/ Dextrose (Levophed/D5W) 500 ml @ 1.87 mls/hr TITRATE IV Last administered on 10/01/16 14:05; Admin Dose 3.75 MLS/HR; Start 09/21/16 at 09:00 Acetaminophen/ Hydrocodone Bitart ([place] (5/325)) 1 tab Q4H PRN PO PAIN LEVEL 4 -7 Last administered on 09/28/16 21:20; Admin Dose 1 TAB; Start 09/21/16 at 15: 00 Acetaminophen/ Hydrocodone Bitart ([place] (5/325)) 2 tab Q4H PRN PO PAIN LEVEL 7 -10; Start 09/21/16 at 15:00 Hydromorphone HCl (Dilaudid) 0.5 mg Q2H PRN IV PAIN Last administered on 16:41; Admin Dose 0.5 MG; Start 09/21/16 at 15:00 Hydromorphone HCl (Dilaudid) 1 mg Q2H PRN IV PAIN Last administered on 09:12; Admin Dose 1 MG; Start 09/21/16 at 15:00 Docusate Sodium (Colace) 100 mg BID PRN PO CONSTIPATION; Start 09/21/16 at 15: 00 Enoxaparin Sodium (Lovenox) 40 mg DAILY SC ; Start 09/22/16 at 09:00; Status Future Hold Docusate Sodium (Colace Liquid Cup) 100 mg BID NGT Last administered on 21:29; Admin Dose 100 MG; Start 09/22/16 at 21:00 Pantoprazole (Protonix Iv) 40 mg DAILY@06 IV Last administered on 10/04/16 06: 04; Admin Dose 40 MG; Start 09/26/16 at 06:00 IV Flush (NS 10 ml) 10 ml PRN PRN IV IV PROTOCOL; Start 09/25/16 at 12:00 Spironolactone 50 mg 50 mg DAILY NGT Last administered on 10/03/16 09:28; Admin Dose 50 MG; Start 09/28/16 at 09:00 Dopamine HCl/ Dextrose 250 ml @ 6.053 mls/ hr TITRATE IV Last administered on 09/30/16 04:46; Admin Dose 6.053 MLS/HR; Start 09/29/16 at 11:00 Phenylephrine HCl 40 mg/Dextrose 500 ml @ 75 mls/hr TITRATE IV ; Start at 14:00 Caspofungin 50 mg/ Sodium Chloride 250 ml @ 250 mls/hr Q24H IVPB Last administered on 10/04/16 11:07; Admin Dose 250 MLS/HR; Start 10/01/16 at 12:00 Metronidazole 100 ml @ 100 mls/hr Q8 IVPB Last administered on 10/04/16 06:19 ; Admin Dose 100 MLS/HR; Start 09/30/16 at 14:00 Vancomycin HCl/ Sodium Chloride (Vancocin/NS) 250 ml @ 83.333 mls/ hr Q36H IVPB Last administered on 10/03/16 17:44; Admin Dose 83.333 MLS/HR; Start at 16:00 Furosemide (Lasix) 20 mg DAILY@06 IV ; Start 10/05/16 at 06:00 Assessment/Plan Chief Complaint/Hosp Course Assessment 1. Improving sepsis and hypoxemic respiratory failure. No evidence of worsening pneumothorax on the right following chest tube placement. Continue incentive spirometry 2. 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 Status post externalization 3. Status post bowel resection. 4. Severe sepsis with metabolic acidosis clinically improved 5. Postop anemia, hemoglobin remained stable. 6. Electrolyte abnormalities hyperkalemia and hypernatremia Plan 1. Continue incentive spirometry and speech therapy recommendations 2.' neurosurgery and general surgery recommendations, 3. Continue broad-spectrum antibiotics 4. Continue chest tube to suction. We will attempt removal of chest tube if patient comes off mechanical ventilation. 5. DVT and GI prophylaxis 6. Renal recommendations monitor electrolytes replace potassium Discussed with staff Critical care time 40 minutes. Discussed with surgery. Problems: DAMIEN GUADARRAMA MD, [facility] Oct 04, 2016 14:28
--- NOTE | 2016-10-04 15:56 | CONS ---
Date/Time of Note Date/Time of Note DATE: 10/04/16 TIME: 15:50 Assessment/Plan Assessment/Plan Chief Complaint/Hosp Course ID PROGRESS NOTE TOTAL ABX DAY # => VANCO IV + MERREM + FLAGYL #5+ Cancidas #5 24H INTERVAL SUMMARY * EXTUBATED 10/03 => re-intubated 09/29 * Stable, A/A/O * No fevers, WBC downtrend 19.4--> 18.4--> 17.7--> 15.0 * Sputum from ETT grew contaminate fungus * WOUND RN NOTE APPRECIATED QUOTING BELOW: * ": - Upper abdominal full thickness surgical wound, with visible subcutaneous tissue and visible sutures, 100% red wound bed, small amount of serosanguineous drainage, no odor, periwound intact, wound measured [id number]. Tunneling at 6 o'clock = 2cm. * - Lower abdominal full thickness surgical wound, with visible subcutaneous tissue and visible sutures, 100% red wound bed, moderated serum drainage, no odor, periwound intact, wound measured 5.5cmx3.3cmx1.9cm. Tunneling at 12 o' clock - 4cm. * Both tunneling is not connected at this time. * - Left lower quadrant colostomy , with round moist red stoma, EXAM: 70 yo F -> awake, follows commands, VSS, no fevers, generalized weakness HEENT: Off Vent w/supplemental O2 Neck: trachea midline. Heart: S1, S2 CXT: chest rise symmetrical breath sounds clear, diminished basis. 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 s/p Sepsis w/shock , s/p lactic acidosis => RESOLVING * leukocytosis improved => SLOW DOWN TREND 2. s/p Perforated sigmoid colon w/abscess: POD#-> s/p 09/21/16 Sigmoid colectomy with performance of end colostomy (Reid's procedure), w/Lysis of adhesions. * MICRO: 09/23/16 BODY FLUID CULTURE Final Organism 1 ENTEROCOCCUS SPECIES Organism 2 COAGULASE NEGATIVE STAPH Organism 3 ALPHA HEMOLYTIC STREP SPP . VIRIDANS GROUP 4. POD # ->S/P 09/21/16 Externalization of STEAM FITTER SUPERVISOR MAINTENANCE shunt. INDICATION: Possible STEAM FITTER SUPERVISOR MAINTENANCE shunt infection, hx of Hydrocephalus, STEAM FITTER SUPERVISOR MAINTENANCE shunt, abdominal abscess 5. Acute respiratory failure -> orally RE-intubated 09/29 after failed prior extubation to BIPAP =. EXTUBATED 10/03 6. CHF w/elevated BNP => (+)Anasarca w/Pleural effusions s/p CT drain 09/30 7. HCAP => RESOLVING * Sputum from ETT grew yeast/fungus => CONTAMINANT * CT 09/30 THORA BODY FLUID CULTURE no growth 8. Pancytopenia - sepsis 9. Coagulopathy w/thrombocytopenia 10. (+)Troponin elevation likely type II in the setting of septic shock. Echo from 09/18 showed normal EF and no significant valvular disease. (-)MRSA Nares screen INVASIVES: PICC (09/25/16) , ETT, NGT, VPS, FC, intra-abdominal drainage catheters ABX ALLERGY: PCN CURRENT ABX: # => VANCO IV + MERREM + FLAGYL #5 + Cancidas #5 ID RECOMMENDATIONS 1. Continue current broad spectrum IV ABX coverage -- AWAIT NORMALIZATION WBC 2. Follow Neuro/GI surgery/Cards/Pulm recs 3. Aspiration precautions post extubation 10/03/16 4. Sputum from ETT grew fungus == consistent with contaminant . . . Problems: Consultation Date/Type/Reason Admit Date/Time Sep 15, 2016 at 21:35 Initial Consult Date 09/21/16 Type of Consultation: ID Exam/Review of Systems Vital Signs Vitals Vital Signs Date Time Temp Pulse Resp B/P Pulse Ox O2 Delivery O2 Flow Rate FiO2 10/04/16 15:00 94 21 117/62 98 10/04/16 13:00 Nasal Cannula 2.0 10/04/16 12:00 98.4 10/03/16 08:50 40 Intake and Output 10/03/16 10/03/16 10/04/16 15:00 23:00 07:00 Intake Total 652 ml 980 ml 710 ml Output Total 760 ml 2590 ml 1405 ml Balance -108 ml -1610 ml -695 ml Results Result Diagram: 10/04/16 0350 10/04/16 0350 Results 24 hrs Laboratory Tests Test 10/04/16 03:50 White Blood Count 15.0 H Red Blood Count 3.01 L Hemoglobin 8.3 L Hematocrit 25.9 L Mean Corpuscular Volume 86.0 Mean Corpuscular Hemoglobin 27.6 L Mean Corpuscular Hemoglobin Concent 32.0 Red Cell Distribution Width 22.9 H Platelet Count 166 Mean Platelet Volume 12.4 H Neutrophils % 89.2 H Segmented Neutrophils % (Manual) 94 H Lymphocytes % 3.7 L Lymphocytes % (Manual) 3 L Monocytes % 5.7 Monocytes % (Manual) 3 Eosinophils % 0.3 Basophils % 0.2 Nucleated Red Blood Cells % 0.0 Neutrophils # 13.4 H Absolute Lymphocytes (Manual) 0.4 L Lymphocytes # 0.6 L Monocytes # 0.9 Absolute Monocytes (Manual) 0.4 Eosinophils # 0.0 Basophils # 0.0 Nucleated Red Blood Cells # 0.0 Smudge Cells % 2 H Platelet Estimate DECREASED Polychromasia 3+ Hypochromasia 3+ Anisocytosis 1+ Microcytosis 1+ Sodium Level 140 Potassium Level 3.2 L Chloride Level 92 L Carbon Dioxide Level 38 H Anion Gap 13 Blood Urea Nitrogen 25 H Creatinine 0.85 Glucose Level 157 Calcium Level 7.5 L Phosphorus Level 4.9 Magnesium Level 1.9 Medications Medications Current Medications Morphine Sulfate (morphine) 2 mg Q4H PRN IV PAIN Last administered on 08:39; Admin Dose 2 MG; Start 09/15/16 at 23:30 Ondansetron HCl (Zofran Inj) 4 mg Q6H PRN IV NAUSEA AND/OR VOMITING Last administered on 09/26/16 09:23; Admin Dose 4 MG; Start 09/16/16 at 00:30 Acetaminophen (Tylenol Tab) 650 mg Q6H PRN PO PAIN LEVEL 1-3 OR FEVER Last administered on 10/04/16 02:10; Admin Dose 650 MG; Start 09/16/16 at 00:30 Polyethylene Glycol 17 gm 17 gm DAILY PO Last administered on 10/03/16 09:28; Admin Dose 17 GM; Start 09/20/16 at 11:00 Meropenem/Sodium Chloride 50 ml @ 200 mls/hr Q8 IVPB Last administered on 10/04 15:29; Admin Dose 200 MLS/HR; Start 09/20/16 at 22:00 Norepinephrine/ Dextrose (Levophed/D5W) 500 ml @ 1.87 mls/hr TITRATE IV Last administered on 10/01/16 14:05; Admin Dose 3.75 MLS/HR; Start 09/21/16 at 09:00 Acetaminophen/ Hydrocodone Bitart ([place] (5/325)) 1 tab Q4H PRN PO PAIN LEVEL 4 -7 Last administered on 09/28/16 21:20; Admin Dose 1 TAB; Start 09/21/16 at 15: 00 Acetaminophen/ Hydrocodone Bitart ([place] (5/325)) 2 tab Q4H PRN PO PAIN LEVEL 7 -10; Start 09/21/16 at 15:00 Hydromorphone HCl (Dilaudid) 0.5 mg Q2H PRN IV PAIN Last administered on 16:41; Admin Dose 0.5 MG; Start 09/21/16 at 15:00 Hydromorphone HCl (Dilaudid) 1 mg Q2H PRN IV PAIN Last administered on 09:12; Admin Dose 1 MG; Start 09/21/16 at 15:00 Docusate Sodium (Colace) 100 mg BID PRN PO CONSTIPATION; Start 09/21/16 at 15: 00 Enoxaparin Sodium (Lovenox) 40 mg DAILY SC ; Start 09/22/16 at 09:00; Status Future Hold Docusate Sodium (Colace Liquid Cup) 100 mg BID NGT Last administered on 21:29; Admin Dose 100 MG; Start 09/22/16 at 21:00 Pantoprazole (Protonix Iv) 40 mg DAILY@06 IV Last administered on 10/04/16 06: 04; Admin Dose 40 MG; Start 09/26/16 at 06:00 IV Flush (NS 10 ml) 10 ml PRN PRN IV IV PROTOCOL; Start 09/25/16 at 12:00 Spironolactone 50 mg 50 mg DAILY NGT Last administered on 10/03/16 09:28; Admin Dose 50 MG; Start 09/28/16 at 09:00 Dopamine HCl/ Dextrose 250 ml @ 6.053 mls/ hr TITRATE IV Last administered on 09/30/16 04:46; Admin Dose 6.053 MLS/HR; Start 09/29/16 at 11:00 Phenylephrine HCl 40 mg/Dextrose 500 ml @ 75 mls/hr TITRATE IV ; Start at 14:00 Caspofungin 50 mg/ Sodium Chloride 250 ml @ 250 mls/hr Q24H IVPB Last administered on 10/04/16 11:07; Admin Dose 250 MLS/HR; Start 10/01/16 at 12:00 Metronidazole 100 ml @ 100 mls/hr Q8 IVPB Last administered on 10/04/16 15:29 ; Admin Dose 100 MLS/HR; Start 09/30/16 at 14:00 Vancomycin HCl/ Sodium Chloride (Vancocin/NS) 250 ml @ 83.333 mls/ hr Q36H IVPB Last administered on 10/03/16 17:44; Admin Dose 83.333 MLS/HR; Start at 16:00 Furosemide (Lasix) 20 mg DAILY@06 IV ; Start 10/05/16 at 06:00 DONNA HERNANDEZ NP Oct 04, 2016 15:56
[2016-10-05] VITALS (24 sets, daily range): BP systolic 94–160; BP diastolic 61–112; PULSE 85–136; RESP 18–39
[2016-10-05] MEDS: VANCOMYCIN 1.25 GM in SOD CHLORIDE 0.9% 250 ML IVPB SCH (03:49)
[2016-10-05 05:14] LABS: ABNORMAL IP MESSAGE 1; BASOPHILS % 0.2 % (0.0-2.0); EOSINOPHILS # 0.1 10^3/ul (0.0-0.5); EOSINOPHILS % 0.7 % (0.0-7.0); HEMOGLOBIN 7.4 g/dl (12.0-16.0); LYMPHOCYTES # 0.5 10^3/ul (0.8-2.9); LYMPHOCYTES % 4.7 % (15.0-51.0); MEAN CORPUSCULAR HEMOGLOBIN 27.5 pg (29.0-33.0); MEAN CORPUSCULAR HGB CONC 32.2 g/dl (32.0-37.0); MEAN CORPUSCULAR VOLUME 85.5 fl (82.0-101.0); MEAN PLATELET VOLUME 11.7 fl (7.4-10.4); MONOCYTES % 9.4 % (0.0-11.0); NEUTROPHIL # 8.9 10^3/ul (1.6-7.5); NEUTROPHILS % 84.4 % (39.0-77.0); PLATELET COUNT 204 10^3/UL (140-415); RED BLOOD COUNT 2.69 10^6/ul (4.20-5.40); RED CELL DISTRIBUTION WIDTH 22.7 % (11.5-14.5); WHITE BLOOD COUNT 10.6 10^3/ul (4.8-10.8)
[2016-10-05 05:21] LABS: POSITIVE DIFF @See below
[2016-10-05] MEDS: metroNIDAZOLE 500 MG/NS (PMX) 100 ML IVPB SCH ×3 (05:28→21:54)
[2016-10-05] MEDS: PANTOPRAZOLE 40 MG INJ IV SCH (05:28)
[2016-10-05] MEDS: MEROPENEM 500MG/50 ML (PMX) 50 ML IVPB SCH ×3 (05:29→21:54)
[2016-10-05 05:57] LABS: MAGNESIUM 1.7 mg/dl (1.7-2.5); PHOSPHORUS 3.6 mg/dl (2.5-4.9)
[2016-10-05] MEDS ORDERED: FUROSEMIDE 20 MG INJ IV SCH (06:00)
[2016-10-05 06:08] LABS: ALBUMIN 1.7 g/dl (3.3-4.9); ALBUMIN/GLOBULIN RATIO 0.68; BILIRUBIN,INDIRECT 0.2 mg/dl (0-1.1); BILIRUBIN,TOTAL 0.2 mg/dl (0.2-1.3); CALCIUM 6.4 mg/dl (8.4-10.2); CREATININE 0.56 mg/dl (0.44-1.00); POTASSIUM 3.1 mmol/L (3.5-5.1); TOTAL PROTEIN 4.2 g/dl (6.1-8.1)
--- NOTE | 2016-10-05 07:12 | PN ---
Date/Time of Note Date/Time of Note DATE: 10/05/16 TIME: 07:11 Assessment/Plan VTE Prophylaxis VTE Prophylaxis Intervention: other Lines/Catheters IV Catheter Type (from Nrsg): PICC Line Central line still needed: Yes Urinary Cath still in place: Yes Reason Cath still needed: other (indicate) Assessment/Plan Chief Complaint/Hosp Course Nonoliguric acute kidney injury. Etiology secondary ATN -Renal function has been improved with supportive care continue current treatment plan renally dose meds avoid nephrotoxins Hypernatremia Improved Continue free water flushes, Monitor serial sodium levels Hypokalemia secondary to diuretics Replete potassium chloride as needed Aldactone 50 mg daily Monitor closely Volume overload/anasarca secondary CHF, third spacing -Patient remains volume overloaded but improving Diuretics adjusted by cardiology, will defer for management We will monitor electrolytes closely Monitor I's and O's closely Shock, presumed sepsis, Pressors are being weaned off slowly Continue broad-spectrum antibiotics next, follow-up cultures Monitor closely Anemia Monitor H&H levels Mineral bone disorder Monitor calcium phosphorus levels Lactic acidosis secondary to shock -Continue to monitor 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 -Continue treatment plan -Follow-up with surgery Respiratory failure Patient reintubated Chest x-ray ABG reviewed Follow-up with pulmonary History of intracranial hemorrhage in the past status post RADIO OPERATOR shunt placement that has been stable over time -RADIO OPERATOR shunt was externalized during the surgery September 21, 2016 due to abdominal infection, per neurosurgical notes may need to be reconnected once patient stable versus removed Problems: Subjective 24 Hr Interval Summary Free Text/Dictation Patient seen and examined Urinary output has been adequate No acute events overnight Exam/Review of Systems Vital Signs Vitals Vital Signs Date Time Temp Pulse Resp B/P Pulse Ox O2 Delivery O2 Flow Rate FiO2 10/05/16 06:00 103 24 137/78 97 Nasal Cannula 10/05/16 04:00 98.4 10/04/16 23:31 2.0 10/03/16 08:50 40 Intake and Output 10/04/16 10/04/16 10/05/16 15:00 23:00 07:00 Intake Total 120 ml 680 ml 620 ml Output Total 1305 ml 1425 ml 710 ml Balance -1185 ml -745 ml -90 ml Exam HEENT: Head is normocephalic, NECK: Supple. HEART: Irregular LUNGS: Show diminished breath sounds at base. ABDOMEN: Soft, nontender to palpation without rebound or guarding. Positive ostomy EXTREMITIES: Negative for clubbing, cyanosis. DERMATOLOGIC: No rashes. MUSCULOSKELETAL: No joint effusions, NEUROLOGIC: No change in exam. Results Result Diagram: 10/05/16 0435 10/05/16 0435 Results 24 hrs Laboratory Tests Test 10/05/16 04:35 White Blood Count 10.6 # Red Blood Count 2.69 L Hemoglobin 7.4 L Hematocrit 23.0 L Mean Corpuscular Volume 85.5 Mean Corpuscular Hemoglobin 27.5 L Mean Corpuscular Hemoglobin Concent 32.2 Red Cell Distribution Width 22.7 H Platelet Count 204 # Mean Platelet Volume 11.7 H Neutrophils % 84.4 H Lymphocytes % 4.7 L Monocytes % 9.4 Eosinophils % 0.7 Basophils % 0.2 Nucleated Red Blood Cells % 0.0 Neutrophils # 8.9 H Lymphocytes # 0.5 L Monocytes # 1.0 H Eosinophils # 0.1 Basophils # 0.0 Nucleated Red Blood Cells # 0.0 Sodium Level 142 Potassium Level 3.1 L Chloride Level 101 Carbon Dioxide Level 30 Anion Gap 14 Blood Urea Nitrogen 22 H Creatinine 0.56 Glucose Level 114 # Calcium Level 6.4 L Phosphorus Level 3.6 Magnesium Level 1.7 Total Bilirubin 0.2 Direct Bilirubin 0.00 Indirect Bilirubin 0.2 Aspartate Amino Transf (AST/SGOT) 22 Alanine Aminotransferase (ALT/SGPT) 30 Alkaline Phosphatase 220 H Total Protein 4.2 L Albumin 1.7 L Globulin 2.50 Albumin/Globulin Ratio 0.68 Medications Medications Current Medications Morphine Sulfate (morphine) 2 mg Q4H PRN IV PAIN Last administered on 08:39; Admin Dose 2 MG; Start 09/15/16 at 23:30 Ondansetron HCl (Zofran Inj) 4 mg Q6H PRN IV NAUSEA AND/OR VOMITING Last administered on 09/26/16 09:23; Admin Dose 4 MG; Start 09/16/16 at 00:30 Acetaminophen (Tylenol Tab) 650 mg Q6H PRN PO PAIN LEVEL 1-3 OR FEVER Last administered on 10/04/16 02:10; Admin Dose 650 MG; Start 09/16/16 at 00:30 Polyethylene Glycol 17 gm 17 gm DAILY PO Last administered on 10/03/16 09:28; Admin Dose 17 GM; Start 09/20/16 at 11:00 Meropenem/Sodium Chloride 50 ml @ 200 mls/hr Q8 IVPB Last administered on 10/05 05:29; Admin Dose 200 MLS/HR; Start 09/20/16 at 22:00 Norepinephrine/ Dextrose (Levophed/D5W) 500 ml @ 1.87 mls/hr TITRATE IV Last administered on 10/01/16 14:05; Admin Dose 3.75 MLS/HR; Start 09/21/16 at 09:00 Acetaminophen/ Hydrocodone Bitart ([place] (5/325)) 1 tab Q4H PRN PO PAIN LEVEL 4 -7 Last administered on 09/28/16 21:20; Admin Dose 1 TAB; Start 09/21/16 at 15: 00 Acetaminophen/ Hydrocodone Bitart ([place] (5/325)) 2 tab Q4H PRN PO PAIN LEVEL 7 -10; Start 09/21/16 at 15:00 Hydromorphone HCl (Dilaudid) 0.5 mg Q2H PRN IV PAIN Last administered on 16:41; Admin Dose 0.5 MG; Start 09/21/16 at 15:00 Hydromorphone HCl (Dilaudid) 1 mg Q2H PRN IV PAIN Last administered on 09:12; Admin Dose 1 MG; Start 09/21/16 at 15:00 Docusate Sodium (Colace) 100 mg BID PRN PO CONSTIPATION; Start 09/21/16 at 15: 00 Enoxaparin Sodium (Lovenox) 40 mg DAILY SC ; Start 09/22/16 at 09:00; Status Future Hold Docusate Sodium (Colace Liquid Cup) 100 mg BID NGT Last administered on 21:52; Admin Dose 100 MG; Start 09/22/16 at 21:00 Pantoprazole (Protonix Iv) 40 mg DAILY@06 IV Last administered on 10/05/16 05: 28; Admin Dose 40 MG; Start 09/26/16 at 06:00 IV Flush (NS 10 ml) 10 ml PRN PRN IV IV PROTOCOL; Start 09/25/16 at 12:00 Spironolactone 50 mg 50 mg DAILY NGT Last administered on 10/03/16 09:28; Admin Dose 50 MG; Start 09/28/16 at 09:00 Dopamine HCl/ Dextrose 250 ml @ 6.053 mls/ hr TITRATE IV Last administered on 09/30/16 04:46; Admin Dose 6.053 MLS/HR; Start 09/29/16 at 11:00 Phenylephrine HCl 40 mg/Dextrose 500 ml @ 75 mls/hr TITRATE IV ; Start at 14:00 Caspofungin 50 mg/ Sodium Chloride 250 ml @ 250 mls/hr Q24H IVPB Last administered on 10/04/16 11:07; Admin Dose 250 MLS/HR; Start 10/01/16 at 12:00 Metronidazole 100 ml @ 100 mls/hr Q8 IVPB Last administered on 10/05/16 05:28 ; Admin Dose 100 MLS/HR; Start 09/30/16 at 14:00 Vancomycin HCl/ Sodium Chloride (Vancocin/NS) 250 ml @ 83.333 mls/ hr Q36H IVPB Last administered on 10/05/16 03:49; Admin Dose 83.333 MLS/HR; Start at 16:00 Furosemide (Lasix) 20 mg DAILY@06 IV Last administered on 10/05/16 06:26; Admin Dose 20 MG; Start 10/05/16 at 06:00 KIRAN CASTILLO DO Oct 05, 2016 07:12
[2016-10-05] MEDS ORDERED: POTASSIUM CHLORIDE 250 ML IVPB ONE (07:30)
--- NOTE | 2016-10-05 08:32 | RADRPT ---
PROCEDURE: XR Chest. CLINICAL INDICATION: Shortness of breath. TECHNIQUE: Single frontal view of the chest was obtained COMPARISON: Chest x-ray 10/03/2016 FINDINGS: The endotracheal tube has been removed. The right PICC line and nasogastric tubes are in stable pos itions. The right pleural pigtail catheter is in stable position. The cardiac silhouette is borderl ine enlarged. There are atherosclerotic calcifications of the thoracic aorta. There is interval inc reased moderate to severe pulmonary vascular congestion and development of bilateral interstitial an d airspace opacities. Ill-defined opacity at the left lung base persists and likely represents atel ectasis and / or a small partially layering left pleural effusion, overall likely unchanged compared to prior study. No pneumothorax or significant right pleural effusion is seen. There are degenera tive changes of the visualized spine. IMPRESSION: 1. Interval removal of endotracheal tube with significantly increased moderate to severe congestion and development of diffuse bilateral interstitial and airspace opacities concerning for edema. 2. Stable ill-defined opacity at the left lung base which may represent a small partially layering left pleural effusion, atelectasis, and / or consolidation. 3. Stable nasogastric tube, right PICC line, and right pleural pigtail catheter. 4. Borderline cardiomegaly and aortic atherosclerosis. RPTAT: HH .Benjy Gayle MD, Date Time Electronically viewed and signed by .Benjy Gayle MD, on 10/05/2016 08:32 .A/
[2016-10-05] MEDS: SPIRONOLACTONE 50 MG TAB NGT SCH (08:47)
[2016-10-05] MEDS: POLYETHYLENE GLYCOL 17 GM PACKET PO SCH (09:00)
[2016-10-05] MEDS: DOCUSATE SODIUM 10 MG/ML (10ML CUP) NGT SCH ×2 (09:00→21:53)
--- NOTE | 2016-10-05 09:14 | CONS ---
Date/Time of Note Date/Time of Note DATE: 10/05/16 TIME: 09:11 Assessment/Plan Assessment/Plan Additional Assessment/Plan Chest x-ray was reviewed from today which is showing patchy bilateral alveolar infiltrates. No pneumothorax identified. Assessment and recommendations; 1. Patient admitted for bowel obstruction with marked clinical improvement. Status post extubation 2 days ago. 2. History of hydrocephalus with RN TRAUMA shunt with infection, status post externalization of RN TRAUMA shunt. 3. Pneumothorax, from barotrauma post intubation. With marked radiological improvement. No further air leak in the Pleur-evac chamber. 4. Bilateral pneumonia. 5. Status post left thoracentesis. Continue current treatment. Remove chest tube in 24 hours. Consultation Date/Type/Reason Admit Date/Time Sep 15, 2016 at 21:35 Initial Consult Date 09/21/16 Type of Consultation: Pulmonary/critical care 24 HR Interval Summary Free Text/Dictation Patient condition is stable. Was successfully extubated 2 days ago. Remains awake and alert. General exam; elderly woman, awake alert. Currently in no distress. Exam/Review of Systems Vital Signs Vitals Vital Signs Date Time Temp Pulse Resp B/P Pulse Ox O2 Delivery O2 Flow Rate FiO2 10/05/16 08:00 97.7 98 21 139/74 98 Nasal Cannula 10/04/16 23:31 2.0 10/03/16 08:50 40 Intake and Output 10/04/16 10/04/16 10/05/16 15:00 23:00 07:00 Intake Total 120 ml 680 ml 680 ml Output Total 1305 ml 1425 ml 960 ml Balance -1185 ml -745 ml -280 ml Exam HEENT exam; supple neck, no JVD. No lymphadenopathy. Midline trachea. No thyromegaly. Chest exam; clear to auscultation. Right-sided chest tube in place. No air leak in the Pleur-evac chamber. S1-S2 audible, no murmurs. Regular rhythm. Abdomen exam; soft, no organomegaly. Bowel sounds audible. Extremity exam; no peripheral edema. 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 Results Result Diagram: 10/05/16 0435 10/05/16 0435 Results 24 hrs Laboratory Tests Test 10/05/16 04:35 White Blood Count 10.6 # Red Blood Count 2.69 L Hemoglobin 7.4 L Hematocrit 23.0 L Mean Corpuscular Volume 85.5 Mean Corpuscular Hemoglobin 27.5 L Mean Corpuscular Hemoglobin Concent 32.2 Red Cell Distribution Width 22.7 H Platelet Count 204 # Mean Platelet Volume 11.7 H Neutrophils % 84.4 H Lymphocytes % 4.7 L Monocytes % 9.4 Eosinophils % 0.7 Basophils % 0.2 Nucleated Red Blood Cells % 0.0 Neutrophils # 8.9 H Lymphocytes # 0.5 L Monocytes # 1.0 H Eosinophils # 0.1 Basophils # 0.0 Nucleated Red Blood Cells # 0.0 Sodium Level 142 Potassium Level 3.1 L Chloride Level 101 Carbon Dioxide Level 30 Anion Gap 14 Blood Urea Nitrogen 22 H Creatinine 0.56 Glucose Level 114 # Calcium Level 6.4 L Phosphorus Level 3.6 Magnesium Level 1.7 Total Bilirubin 0.2 Direct Bilirubin 0.00 Indirect Bilirubin 0.2 Aspartate Amino Transf (AST/SGOT) 22 Alanine Aminotransferase (ALT/SGPT) 30 Alkaline Phosphatase 220 H Total Protein 4.2 L Albumin 1.7 L Globulin 2.50 Albumin/Globulin Ratio 0.68 Medications Medications Current Medications Morphine Sulfate (morphine) 2 mg Q4H PRN IV PAIN Last administered on 08:39; Admin Dose 2 MG; Start 09/15/16 at 23:30 Ondansetron HCl (Zofran Inj) 4 mg Q6H PRN IV NAUSEA AND/OR VOMITING Last administered on 09/26/16 09:23; Admin Dose 4 MG; Start 09/16/16 at 00:30 Acetaminophen (Tylenol Tab) 650 mg Q6H PRN PO PAIN LEVEL 1-3 OR FEVER Last administered on 10/04/16 02:10; Admin Dose 650 MG; Start 09/16/16 at 00:30 Polyethylene Glycol 17 gm 17 gm DAILY PO Last administered on 10/03/16 09:28; Admin Dose 17 GM; Start 09/20/16 at 11:00 Meropenem/Sodium Chloride 50 ml @ 200 mls/hr Q8 IVPB Last administered on 10/05 05:29; Admin Dose 200 MLS/HR; Start 09/20/16 at 22:00 Norepinephrine/ Dextrose (Levophed/D5W) 500 ml @ 1.87 mls/hr TITRATE IV Last administered on 10/01/16 14:05; Admin Dose 3.75 MLS/HR; Start 09/21/16 at 09:00 Acetaminophen/ Hydrocodone Bitart ([place] (5/325)) 1 tab Q4H PRN PO PAIN LEVEL 4 -7 Last administered on 09/28/16 21:20; Admin Dose 1 TAB; Start 09/21/16 at 15: 00 Acetaminophen/ Hydrocodone Bitart ([place] (5/325)) 2 tab Q4H PRN PO PAIN LEVEL 7 -10; Start 09/21/16 at 15:00 Hydromorphone HCl (Dilaudid) 0.5 mg Q2H PRN IV PAIN Last administered on 16:41; Admin Dose 0.5 MG; Start 09/21/16 at 15:00 Hydromorphone HCl (Dilaudid) 1 mg Q2H PRN IV PAIN Last administered on 09:12; Admin Dose 1 MG; Start 09/21/16 at 15:00 Docusate Sodium (Colace) 100 mg BID PRN PO CONSTIPATION; Start 09/21/16 at 15: 00 Enoxaparin Sodium (Lovenox) 40 mg DAILY SC ; Start 09/22/16 at 09:00; Status Future Hold Docusate Sodium (Colace Liquid Cup) 100 mg BID NGT Last administered on 21:52; Admin Dose 100 MG; Start 09/22/16 at 21:00 Pantoprazole (Protonix Iv) 40 mg DAILY@06 IV Last administered on 10/05/16 05: 28; Admin Dose 40 MG; Start 09/26/16 at 06:00 IV Flush (NS 10 ml) 10 ml PRN PRN IV IV PROTOCOL; Start 09/25/16 at 12:00 Spironolactone 50 mg 50 mg DAILY NGT Last administered on 10/05/16 08:47; Admin Dose 50 MG; Start 09/28/16 at 09:00 Dopamine HCl/ Dextrose 250 ml @ 6.053 mls/ hr TITRATE IV Last administered on 09/30/16 04:46; Admin Dose 6.053 MLS/HR; Start 09/29/16 at 11:00 Phenylephrine HCl 40 mg/Dextrose 500 ml @ 75 mls/hr TITRATE IV ; Start at 14:00 Caspofungin 50 mg/ Sodium Chloride 250 ml @ 250 mls/hr Q24H IVPB Last administered on 10/04/16 11:07; Admin Dose 250 MLS/HR; Start 10/01/16 at 12:00 Metronidazole 100 ml @ 100 mls/hr Q8 IVPB Last administered on 10/05/16 05:28 ; Admin Dose 100 MLS/HR; Start 09/30/16 at 14:00 Vancomycin HCl/ Sodium Chloride (Vancocin/NS) 250 ml @ 83.333 mls/ hr Q36H IVPB Last administered on 10/05/16 03:49; Admin Dose 83.333 MLS/HR; Start at 16:00 Furosemide 20 mg 20 mg DAILY@06 IV Last administered on 10/05/16 06:26; Admin Dose 20 MG; Start 10/05/16 at 06:00 Potassium Chloride (KCl 40 MEQ/250 ML NS) 250 ml @ 62.5 mls/hr ONCE ONCE IVPB Last administered on 10/05/16 08:11; Admin Dose 62.5 MLS/HR; Start 10/05/16 at 07:30; Stop 10/05/16 at 11:29 GERARDO JUSTICE Oct 05, 2016 09:14
[2016-10-05] MEDS ORDERED: ACETYLCYSTEINE 20% 4 ML VIAL NEB SCH (09:30)
[2016-10-05] MEDS: ALBUTEROL/IPRATROPIUM (NEB) 3 ML AMP HHN PRN (10:12)
--- NOTE | 2016-10-05 10:43 | PN ---
Date/Time of Note Date/Time of Note DATE: 10/05/16 TIME: 10:42 Assessment/Plan VTE Prophylaxis VTE Prophylaxis Intervention: anti-embolic stocking, contraindicated Lines/Catheters IV Catheter Type (from Nrsg): PICC Line Central line still needed: Yes Urinary Cath still in place: Yes Reason Cath still needed: urinary retention Assessment/Plan Assessment/Plan Acute respiratory failure: Reintubated 09/29 after failing BiPAP. Now extubated again 10/03. Doing well. Acute diastolic heart failure: Secondary to volume resuscitation in setting of low albumin and third spacing. Significant anasarca. Diuresing well Paroxysmal afib: converted on amiodarone. Converted back to afib on dopamine but now off and back in sinus Septic shock: from intraabdominal abscess and possible infected COMPUTERIZED MACHINE FABRIC CUTTER shunt. S/p sigmoid colectomy. Was off pressors but transiently required pressor support and 09/30 after reintubation. Now off Tension pneumothorax: due to thoracentesis. s/p chest tube 09/30 NSTEMI: Trop mildly elevated likely type II in the setting of septic shock. Echo from 09/18 showed normal EF and no significant valvular disease. Repeat trop normalized Diverticulitis complicated by abscess s/p sigmoid colectomy and now colostomy Coagulopathy: ?DIC. 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 Rhythm remains sinus. Patient unable to verbalize much in terms of complaints Exam/Review of Systems Vital Signs Vitals Vital Signs Date Time Temp Pulse Resp B/P Pulse Ox O2 Delivery O2 Flow Rate FiO2 10/05/16 10:12 98 2.0 10/05/16 10:12 100 22 Nasal Cannula 10/05/16 10:00 141/76 10/05/16 08:00 97.7 Intake and Output 10/04/16 10/04/16 10/05/16 15:00 23:00 07:00 Intake Total 120 ml 680 ml 680 ml Output Total 1305 ml 1425 ml 960 ml Balance -1185 ml -745 ml -280 ml Exam Constitutional: alert HEENT: NCAT, NG tube in place Head: atraumatic, normocephalic Neck: No obvious Respiratory: diminished breath sounds, no wheezes; chest tube noted Cardiovascular: Borderline tachycardia, regular, no m/r/g, 2+ pitting BLE edema Gastrointestinal: non-tender, soft Extremities: warm, no cyanosis or clubbing Results Result Diagram: 10/05/16 0435 10/05/16 0435 Results 24 hrs Laboratory Tests Test 10/05/16 04:35 White Blood Count 10.6 # Red Blood Count 2.69 L Hemoglobin 7.4 L Hematocrit 23.0 L Mean Corpuscular Volume 85.5 Mean Corpuscular Hemoglobin 27.5 L Mean Corpuscular Hemoglobin Concent 32.2 Red Cell Distribution Width 22.7 H Platelet Count 204 # Mean Platelet Volume 11.7 H Neutrophils % 84.4 H Lymphocytes % 4.7 L Monocytes % 9.4 Eosinophils % 0.7 Basophils % 0.2 Nucleated Red Blood Cells % 0.0 Neutrophils # 8.9 H Lymphocytes # 0.5 L Monocytes # 1.0 H Eosinophils # 0.1 Basophils # 0.0 Nucleated Red Blood Cells # 0.0 Sodium Level 142 Potassium Level 3.1 L Chloride Level 101 Carbon Dioxide Level 30 Anion Gap 14 Blood Urea Nitrogen 22 H Creatinine 0.56 Glucose Level 114 # Calcium Level 6.4 L Phosphorus Level 3.6 Magnesium Level 1.7 Total Bilirubin 0.2 Direct Bilirubin 0.00 Indirect Bilirubin 0.2 Aspartate Amino Transf (AST/SGOT) 22 Alanine Aminotransferase (ALT/SGPT) 30 Alkaline Phosphatase 220 H Total Protein 4.2 L Albumin 1.7 L Globulin 2.50 Albumin/Globulin Ratio 0.68 Medications Medications Current Medications Morphine Sulfate (morphine) 2 mg Q4H PRN IV PAIN Last administered on 08:39; Admin Dose 2 MG; Start 09/15/16 at 23:30 Ondansetron HCl (Zofran Inj) 4 mg Q6H PRN IV NAUSEA AND/OR VOMITING Last administered on 09/26/16 09:23; Admin Dose 4 MG; Start 09/16/16 at 00:30 Acetaminophen (Tylenol Tab) 650 mg Q6H PRN PO PAIN LEVEL 1-3 OR FEVER Last administered on 10/04/16 02:10; Admin Dose 650 MG; Start 09/16/16 at 00:30 Polyethylene Glycol 17 gm 17 gm DAILY PO Last administered on 10/03/16 09:28; Admin Dose 17 GM; Start 09/20/16 at 11:00 Meropenem/Sodium Chloride 50 ml @ 200 mls/hr Q8 IVPB Last administered on 10/05 05:29; Admin Dose 200 MLS/HR; Start 09/20/16 at 22:00 Norepinephrine/ Dextrose (Levophed/D5W) 500 ml @ 1.87 mls/hr TITRATE IV Last administered on 10/01/16 14:05; Admin Dose 3.75 MLS/HR; Start 09/21/16 at 09:00 Acetaminophen/ Hydrocodone Bitart ([place] (5/325)) 1 tab Q4H PRN PO PAIN LEVEL 4 -7 Last administered on 09/28/16 21:20; Admin Dose 1 TAB; Start 09/21/16 at 15: 00 Acetaminophen/ Hydrocodone Bitart ([place] (5/325)) 2 tab Q4H PRN PO PAIN LEVEL 7 -10; Start 09/21/16 at 15:00 Hydromorphone HCl (Dilaudid) 0.5 mg Q2H PRN IV PAIN Last administered on 16:41; Admin Dose 0.5 MG; Start 09/21/16 at 15:00 Hydromorphone HCl (Dilaudid) 1 mg Q2H PRN IV PAIN Last administered on 09:12; Admin Dose 1 MG; Start 09/21/16 at 15:00 Docusate Sodium (Colace) 100 mg BID PRN PO CONSTIPATION; Start 09/21/16 at 15: 00 Enoxaparin Sodium (Lovenox) 40 mg DAILY SC ; Start 09/22/16 at 09:00; Status Future Hold Docusate Sodium (Colace Liquid Cup) 100 mg BID NGT Last administered on 21:52; Admin Dose 100 MG; Start 09/22/16 at 21:00 Pantoprazole (Protonix Iv) 40 mg DAILY@06 IV Last administered on 10/05/16 05: 28; Admin Dose 40 MG; Start 09/26/16 at 06:00 IV Flush (NS 10 ml) 10 ml PRN PRN IV IV PROTOCOL; Start 09/25/16 at 12:00 Spironolactone 50 mg 50 mg DAILY NGT Last administered on 10/05/16 08:47; Admin Dose 50 MG; Start 09/28/16 at 09:00 Dopamine HCl/ Dextrose 250 ml @ 6.053 mls/ hr TITRATE IV Last administered on 09/30/16 04:46; Admin Dose 6.053 MLS/HR; Start 09/29/16 at 11:00 Phenylephrine HCl 40 mg/Dextrose 500 ml @ 75 mls/hr TITRATE IV ; Start at 14:00 Caspofungin 50 mg/ Sodium Chloride 250 ml @ 250 mls/hr Q24H IVPB Last administered on 10/04/16 11:07; Admin Dose 250 MLS/HR; Start 10/01/16 at 12:00 Metronidazole 100 ml @ 100 mls/hr Q8 IVPB Last administered on 10/05/16 05:28 ; Admin Dose 100 MLS/HR; Start 09/30/16 at 14:00 Vancomycin HCl/ Sodium Chloride (Vancocin/NS) 250 ml @ 83.333 mls/ hr Q36H IVPB Last administered on 10/05/16 03:49; Admin Dose 83.333 MLS/HR; Start at 16:00 Furosemide 20 mg 20 mg DAILY@06 IV Last administered on 10/05/16 06:26; Admin Dose 20 MG; Start 10/05/16 at 06:00 Potassium Chloride (KCl 40 MEQ/250 ML NS) 250 ml @ 62.5 mls/hr ONCE ONCE IVPB Last administered on 10/05/16 08:11; Admin Dose 62.5 MLS/HR; Start 10/05/16 at 07:30; Stop 10/05/16 at 11:29 SOPHIE PATTON MD Oct 05, 2016 10:43
[2016-10-05] MEDS: CASPOFUNGIN 50 MG in SOD CHLORIDE 0.9% 250 ML IVPB SCH (12:50)
[2016-10-05] MEDS: METOPROLOL 25 MG TAB NGT SCH ×2 (12:50→21:54)
--- NOTE | 2016-10-05 12:53 | PN ---
Date/Time of Note Date/Time of Note DATE: 10/05/16 TIME: 12:47 Assessment/Plan Lines/Catheters IV Catheter Type (from Nrs): PICC Line Shore in Place (from Nrs): Yes Assessment/Plan Assessment/Plan [facility] Progress Note Date of Service: 10/05/2016 Place of service: [facility] ICU Today's Assessment & Plan: Overall remains stable and less critically ill. Significantly improved compared to last few days. Abd remain benign. Neurologically improved with better mood and a clearer presence in her own care. No indication for acute surgical intervention. With above assessment, I recommended the following for today: 1. Continue aggressive medical management 2. Continue wound VAC; dressing change 3 times a week 3. Cont aggressive pulmonary toilet 4. Lasix Q6 x 4 doses and attempt to target BNP < 200 5. Labs in am 6. Please maintain multidisciplinary discussion regarding fluid intake, CODE STATUS, and other major medical decisions since this is a fragile surgical patient with recent sepsis and shock 7. Targeted antimicrobial therapy to culture results 8. PT OT 9. Management of SNOW PLOW TRACTOR OPERATOR shunt per Dr. Miner 10. Repeat swallowing test early next week and if she passes, to start oral intake with regular diet; continue NG feeds in the meantime 11. Keep in the ICU today 12. Social work and case management to please start working on disposition planning (rehab versus SNF) Thank you again for your great care of this very pleasant patient and wonderful family. If there are any questions, please feel free to call me at [phone]. Nature of presenting problem: High severity Please note that, given the extensive number of diagnoses or management options , the extensive amount and/or complexity of data needed to be reviewed, and I risk of complications and/or morbidity or mortality, this qualifies as high complexity type of decision-making. Disclaimer: Inadvertent spelling and grammatical errors are likely due to EHR/ dictation software use and do not reflect on the quality of delivered patient care. Also, please note that the electronic time recorded on this node does not necessarily reflect the actual time of the visit. Updated Clinical Summary: A very pleasant 70-year-old lady without significant known past medical history other than a SNOW PLOW TRACTOR OPERATOR shunt placement many years ago which she did not remember or report, presenting with what appears to be a sigmoid colon abscess or pericolonic abscess, which seemed to be a complication of diverticulitis. S/p IR drainage 09/09/16 with removal of 20 cc pus and placement of a 10 Fr. pigtail catheter at [facility]. D/c home 09/12/16. Re-presented to [place] ED 09/15/16 after being diverted from [facility] (due to internal disaster diversion) where CT was done showing adequate placement of the percutaneous drain near the sigmoid colon and decompressed sigmoid colon abscess, no obvious free air or significant spillage of stool in the abdominal cavity, and incidental finding of tail of the SNOW PLOW TRACTOR OPERATOR shunt in the pelvis (new from right upper quadrant position of the same drain on the CT scan at [facility]). Transfer to [facility] 09/15/2016 for further cares. S/p upsizing of drain to 12 Fr pigtail on 09/17/16 (communication with colon demonstrated; no obvious free communication to rest of peritoneal space). Patient decompensated in the early hours of the morning on 09/21/2016 and had to be transferred to the intensive care unit with need for endotracheal tube intubation, central line placement, and resuscitation for treatment of shock with lactic acidosis and evidence of peritonitis and free air on the new chest, abdomen, and pelvis CT scan. S/p a rather challenging sigmoid colectomy with performance of end colostomy (Reid's procedure), takedown of splenic flexure of the colon, lysis of adhesions (60 minutes), and abdominal lavage at [facility] on 09/21/16; diagnosis of colon ischemia (distal transverse colon and descending colon) during reentry through recent laparotomy incision with exploration of abdominal cavity, takedown of colostomy, completion left hemicolectomy with resection of distal transverse colon, lysis of adhesions, abdominal lavage, performance of an end colostomy [facility] 09/24/16. Extubated post op evening of 09/25/16. Decompensation with intubation and restart of pressors . Right-sided pneumothorax after drainage of right pleural effusion requiring chest tube placement 09/30/2016. Extubated 10/03/2016. Comorbidities: 1. Perforated sigmoid colon (see below) 2. Status post ventriculoperitoneal shunt placement. 3. Status post prior hysterectomy and bilateral salpingo-oophorectomy through Pfannenstiel incision 4. S/p IR drainage 09/09/16 with removal of 20 cc pus and placement of a 10 Fr. pigtail catheter at [facility]. 5. Readmission to [facility] 09/15/16 with upsizing of drain to 12 Fr pigtail on (communication with colon demonstrated; no obvious free communication to rest of peritoneal space). Septic shock with multiorgan failure 09/21/2016 requiring ICU admission with intubation and pressors. 6. S/p a rather challenging sigmoid colectomy with performance of end colostomy (Reid's procedure), takedown of splenic flexure of the colon, lysis of adhesions (60 minutes), and abdominal lavage at [facility] on 09/21/16 7. Colon ischemia (distal transverse colon and descending colon) 8. S/p reentry through recent laparotomy incision with exploration of abdominal cavity, takedown of colostomy, completion left hemicolectomy with resection of distal transverse colon, lysis of adhesions, abdominal lavage, performance of an end colostomy [facility] 09/24/16 Subjective: Remained extubated and no major events or complaints overnight. Reports breathing is relatively easy. Complains of abdominal pain. No observed or reported n/v/d; no observed or reported sob or cp; + bowel activity; - activity. Objective: Vitals: See below I's & O's: See below Exam: GENERAL: On exam, the patient was lying in bed and appeared to be comfortable and in no acute distress. Appears much more normal than the last couple of weeks. ABDOMEN: Soft, nontender and nondistended. Incision dressings are clean, dry and intact without any obvious evidence of underlying erythema, edema, discharge , or hernia. Surgical drain ss without any evidence of enteric contents. There are no peritoneal signs or guarding. Ostomy appears to be viable and productive with stool and air in the bag. SKIN: Skin appears to be pink and feels warm to touch. NEUROLOGIC: Patient appears to be awake, alert, and follows simple commands. Voice is stronger and able to state more complete sentences. Labs: See below Exam/Review of Systems Vital Signs Vitals Vital Signs Date Time Temp Pulse Resp B/P Pulse Ox O2 Delivery O2 Flow Rate FiO2 10/05/16 12:00 98 10/05/16 10:12 98 2.0 28 10/05/16 10:12 22 Nasal Cannula 10/05/16 10:00 141/76 10/05/16 08:00 97.7 Intake and Output 10/04/16 10/04/16 10/05/16 15:00 23:00 07:00 Intake Total 120 ml 680 ml 680 ml Output Total 1305 ml 1425 ml 960 ml Balance -1185 ml -745 ml -280 ml Results Result Diagram: 10/05/16 0435 10/05/16 0435 ALEXSANDER DUARTE M.D. Oct 05, 2016 12:53
[2016-10-05] MEDS: FUROSEMIDE 20 MG INJ IV SCH ×3 (12:56→23:09)
[2016-10-05] MEDS: ACETYLCYSTEINE 20% 4 ML VIAL NEB SCH ×3 (13:00→21:51)
[2016-10-05] MEDS: ALBUTEROL/IPRATROPIUM (NEB) 3 ML AMP HHN SCH ×3 (14:20→21:51)
--- NOTE | 2016-10-05 16:53 | CONS ---
Date/Time of Note Date/Time of Note DATE: 10/05/16 TIME: 16:46 Assessment/Plan Assessment/Plan Chief Complaint/Hosp Course ID PROGRESS NOTE TOTAL ABX DAY # => VANCO IV + MERREM + FLAGYL #6+ Cancidas #6 24H INTERVAL SUMMARY * EXTUBATED 10/03 => stable off vent // s/p Left THORA 10/01 * A/A/O -> confused, mild anxiety "I want to get up and walk now -- I want to get out of here" * No fevers, WBC downtrend 19.4--> 18.4--> 17.7--> 15.0 --> Normalized today * Sputum from ETT grew contaminate fungus * WOUND RN NOTE APPRECIATED QUOTING BELOW: * ": - Upper abdominal full thickness surgical wound, with visible subcutaneous tissue and visible sutures, 100% red wound bed, small amount of serosanguineous drainage, no odor, periwound intact, wound measured 2atq2hqu1.9cm. Tunneling at 6 o'clock = 2cm. * - Lower abdominal full thickness surgical wound, with visible subcutaneous tissue and visible sutures, 100% red wound bed, moderated serum drainage, no odor, periwound intact, wound measured 5.5cmx3.3cmx1.9cm. Tunneling at 12 o' clock - 4cm. * Both tunneling is not connected at this time. * - Left lower quadrant colostomy , with round moist red stoma, EXAM: 70 yo F -> awake, follows commands, VSS, no fevers, generalized weakness HEENT: Off Vent w/supplemental O2 Neck: trachea midline. Heart: S1, S2 CXT: chest rise symmetrical breath sounds clear, diminished basis. ABD: Soft, Wound Vac + Colotomy Extremities without cyanosis, (+) edema x4 = dependent edema ID ASSESSMENT 70 yo F w/PMHx ICH and APPLICATIONS TRAINER shunt admit with: 1. s/p Sepsis w/shock , s/p lactic acidosis => RESOLVING * leukocytosis improved => SLOW DOWN TREND -> Normalized 10/05/16 2. s/p Perforated sigmoid colon w/abscess: POD#-> s/p 09/21/16 Sigmoid colectomy with performance of end colostomy (Reid's procedure), w/Lysis of adhesions. * MICRO: 09/23/16 BODY FLUID CULTURE Final Organism 1 ENTEROCOCCUS SPECIES Organism 2 COAGULASE NEGATIVE STAPH Organism 3 ALPHA HEMOLYTIC STREP SPP . VIRIDANS GROUP 4. POD # ->S/P 09/21/16 Externalization of APPLICATIONS TRAINER shunt. INDICATION: Possible APPLICATIONS TRAINER shunt infection, hx of Hydrocephalus, APPLICATIONS TRAINER shunt, abdominal abscess 5. Acute respiratory failure -> orally RE-intubated 09/29 after failed prior extubation to BIPAP =. EXTUBATED 10/03 6. CHF w/elevated BNP => (+)Anasarca w/Pleural effusions s/p CT drain 09/30 7. HCAP => RESOLVING * Sputum from ETT grew yeast/fungus => CONTAMINANT * CT 09/30 THORA BODY FLUID CULTURE no growth 8. Pancytopenia - sepsis 9. Coagulopathy w/thrombocytopenia 10. (+)Troponin elevation likely type II in the setting of septic shock. Echo from 09/18 showed normal EF and no significant valvular disease. (-)MRSA Nares screen INVASIVES: PICC (09/25/16) , ETT, NGT, VPS, FC, intra-abdominal drainage catheters ABX ALLERGY: PCN CURRENT ABX: # => VANCO IV + MERREM + FLAGYL #6 + Cancidas #6 ID RECOMMENDATIONS 1. Continue current broad spectrum IV ABX coverage -- Per Dr. Maldonado's note, keep in the ICU and repeat swallow eval prior to advancing PO. 2. Will continue ABX until swallow eval 3. Aspiration precautions post extubation 10/03/16 4. Sputum from ETT grew fungus == consistent with contaminant . . . Problems: Consultation Date/Type/Reason Admit Date/Time Sep 15, 2016 at 21:35 Initial Consult Date 09/21/16 Type of Consultation: ID Exam/Review of Systems Vital Signs Vitals Vital Signs Date Time Temp Pulse Resp B/P Pulse Ox O2 Delivery O2 Flow Rate FiO2 10/05/16 16:00 114 10/05/16 15:00 23 118/61 95 Nasal Cannula 10/05/16 14:21 2.0 28 10/05/16 12:00 97.3 Intake and Output 10/04/16 10/04/16 10/05/16 15:00 23:00 07:00 Intake Total 120 ml 680 ml 680 ml Output Total 1305 ml 1425 ml 960 ml Balance -1185 ml -745 ml -280 ml Results Result Diagram: 10/05/16 0435 10/05/16 0435 Results 24 hrs Laboratory Tests Test 10/05/16 04:35 White Blood Count 10.6 # Red Blood Count 2.69 L Hemoglobin 7.4 L Hematocrit 23.0 L Mean Corpuscular Volume 85.5 Mean Corpuscular Hemoglobin 27.5 L Mean Corpuscular Hemoglobin Concent 32.2 Red Cell Distribution Width 22.7 H Platelet Count 204 # Mean Platelet Volume 11.7 H Neutrophils % 84.4 H Lymphocytes % 4.7 L Monocytes % 9.4 Eosinophils % 0.7 Basophils % 0.2 Nucleated Red Blood Cells % 0.0 Neutrophils # 8.9 H Lymphocytes # 0.5 L Monocytes # 1.0 H Eosinophils # 0.1 Basophils # 0.0 Nucleated Red Blood Cells # 0.0 Sodium Level 142 Potassium Level 3.1 L Chloride Level 101 Carbon Dioxide Level 30 Anion Gap 14 Blood Urea Nitrogen 22 H Creatinine 0.56 Glucose Level 114 # Calcium Level 6.4 L Phosphorus Level 3.6 Magnesium Level 1.7 Total Bilirubin 0.2 Direct Bilirubin 0.00 Indirect Bilirubin 0.2 Aspartate Amino Transf (AST/SGOT) 22 Alanine Aminotransferase (ALT/SGPT) 30 Alkaline Phosphatase 220 H Total Protein 4.2 L Albumin 1.7 L Globulin 2.50 Albumin/Globulin Ratio 0.68 Medications Medications Current Medications Morphine Sulfate (morphine) 2 mg Q4H PRN IV PAIN Last administered on 08:39; Admin Dose 2 MG; Start 09/15/16 at 23:30 Ondansetron HCl (Zofran Inj) 4 mg Q6H PRN IV NAUSEA AND/OR VOMITING Last administered on 09/26/16 09:23; Admin Dose 4 MG; Start 09/16/16 at 00:30 Acetaminophen (Tylenol Tab) 650 mg Q6H PRN PO PAIN LEVEL 1-3 OR FEVER Last administered on 10/04/16 02:10; Admin Dose 650 MG; Start 09/16/16 at 00:30 Polyethylene Glycol 17 gm 17 gm DAILY PO Last administered on 10/03/16 09:28; Admin Dose 17 GM; Start 09/20/16 at 11:00 Meropenem/Sodium Chloride 50 ml @ 200 mls/hr Q8 IVPB Last administered on 10/05 13:51; Admin Dose 200 MLS/HR; Start 09/20/16 at 22:00 Norepinephrine/ Dextrose (Levophed/D5W) 500 ml @ 1.87 mls/hr TITRATE IV Last administered on 10/01/16 14:05; Admin Dose 3.75 MLS/HR; Start 09/21/16 at 09:00 Acetaminophen/ Hydrocodone Bitart ([place] (5/325)) 1 tab Q4H PRN PO PAIN LEVEL 4 -7 Last administered on 09/28/16 21:20; Admin Dose 1 TAB; Start 09/21/16 at 15: 00 Acetaminophen/ Hydrocodone Bitart ([place] (5/325)) 2 tab Q4H PRN PO PAIN LEVEL 7 -10; Start 09/21/16 at 15:00 Hydromorphone HCl (Dilaudid) 0.5 mg Q2H PRN IV PAIN Last administered on 16:41; Admin Dose 0.5 MG; Start 09/21/16 at 15:00 Hydromorphone HCl (Dilaudid) 1 mg Q2H PRN IV PAIN Last administered on 09:12; Admin Dose 1 MG; Start 09/21/16 at 15:00 Docusate Sodium (Colace) 100 mg BID PRN PO CONSTIPATION; Start 09/21/16 at 15: 00 Enoxaparin Sodium (Lovenox) 40 mg DAILY SC ; Start 09/22/16 at 09:00; Status Future Hold Docusate Sodium (Colace Liquid Cup) 100 mg BID NGT Last administered on 21:52; Admin Dose 100 MG; Start 09/22/16 at 21:00 Pantoprazole (Protonix Iv) 40 mg DAILY@06 IV Last administered on 10/05/16 05: 28; Admin Dose 40 MG; Start 09/26/16 at 06:00 IV Flush (NS 10 ml) 10 ml PRN PRN IV IV PROTOCOL; Start 09/25/16 at 12:00 Spironolactone 50 mg 50 mg DAILY NGT Last administered on 10/05/16 08:47; Admin Dose 50 MG; Start 09/28/16 at 09:00 Dopamine HCl/ Dextrose 250 ml @ 6.053 mls/ hr TITRATE IV Last administered on 09/30/16 04:46; Admin Dose 6.053 MLS/HR; Start 09/29/16 at 11:00 Phenylephrine HCl 40 mg/Dextrose 500 ml @ 75 mls/hr TITRATE IV ; Start at 14:00 Caspofungin 50 mg/ Sodium Chloride 250 ml @ 250 mls/hr Q24H IVPB Last administered on 10/05/16 12:50; Admin Dose 250 MLS/HR; Start 10/01/16 at 12:00 Metronidazole 100 ml @ 100 mls/hr Q8 IVPB Last administered on 10/05/16 14:50 ; Admin Dose 100 MLS/HR; Start 09/30/16 at 14:00 Vancomycin HCl/ Sodium Chloride (Vancocin/NS) 250 ml @ 83.333 mls/ hr Q36H IVPB Last administered on 10/05/16 03:49; Admin Dose 83.333 MLS/HR; Start at 16:00 Metoprolol Tartrate (Lopressor) 12.5 mg BID NGT Last administered on 10/05/16 12:50; Admin Dose 12.5 MG; Start 10/05/16 at 11:00 Furosemide (Lasix) 20 mg Q6 IV Last administered on 10/05/16 12:56; Admin Dose 20 MG; Start 10/05/16 at 13:00 DONNA HERNANDEZ NP Oct 05, 2016 16:53
--- NOTE | 2016-10-05 23:10 | PN ---
Date/Time of Note Date/Time of Note DATE: 10/05/16 TIME: 23:05 Assessment/Plan VTE Prophylaxis VTE Prophylaxis Intervention: SCD's Lines/Catheters IV Catheter Type (from Nrs): PICC Line Central line still needed: Yes Urinary Cath still in place: Yes Reason Cath still needed: other (indicate) Assessment/Plan Assessment/Plan 1. Sigmoid colon abscess, likely a complication of diverticulitis - s/p sigmoid colectomy with end colostomy (Reid's procedure) and adhesiolysis on 09/21/16 - continue antibiotics. Follow-up surgery recommendation. ID is on board. 2. Status post septic shock -Continue antibiotics and IV fluid. -Pressors as needed. 3. Ventilator dependent respiratory failure: Status post re-extubation yesterday. Management per pulmonary. 4. Left pleural effusion: Status post thoracentesis, complicated with pneumothorax status post placement of a chest tube. 4. History of ICH, s/p ventriculoperitoneal shunt placement: Neurosurg on board 5. Paroxysmal A. fib: Now in sinus rhythm status post amiodarone and dopamine. Cardiology on board, appreciate recommendation 6. Acute renal insufficiency: Resolved. Appreciate nephrology input. 7. s/p NSTEMI: Likely secondary to septic shock. Cardiology on board. 8. Volume overload state: Continue diuresis. Patient still has bilateral lower extremity pitting edema. 9. Anemia, likely a combination of iron deficiency and anemia of chronic disease: Previous notes mention iron replacement. Given patient is extubated, will start her on ferrous sulfate once she passes swallow evaluation. She did fail swallow evaluation yesterday. will consider blood transfusion 10. Hypokalemia: Replete 11. Dysphagia: Patient had failed swallow evaluation yesterday NG tube. Subjective 24 Hr Interval Summary Free Text/Dictation appears weak. c/o cough Exam/Review of Systems Vital Signs Vitals Vital Signs Date Time Temp Pulse Resp B/P Pulse Ox O2 Delivery O2 Flow Rate FiO2 10/05/16 22:16 96 6.0 10/05/16 22:05 94 22 10/05/16 21:00 157/80 Nasal Cannula 10/05/16 17:50 28 10/05/16 16:00 98.3 Intake and Output 10/04/16 10/04/16 10/05/16 15:00 23:00 07:00 Intake Total 120 ml 780 ml 780 ml Output Total 1305 ml 1425 ml 960 ml Balance -1185 ml -645 ml -180 ml Exam Constitutional: other (Patient is awake and that she follows commands however she appears lethargic.) Head: atraumatic, normocephalic Eyes: PERRL Respiratory: diminished breath sounds, other (There is a shunt in the left upper chest.) Cardiovascular: other (Tachycardic with regular rhythm) Gastrointestinal: other (Colostomy bag in place with brownish to liquid output. ), soft Extremities: edema Results Result Diagram: 10/05/1643410/05/16434 Results 24 hrs Laboratory Tests Test 10/05/16 04:35 White Blood Count 10.6 # Red Blood Count 2.69 L Hemoglobin 7.4 L Hematocrit 23.0 L Mean Corpuscular Volume 85.5 Mean Corpuscular Hemoglobin 27.5 L Mean Corpuscular Hemoglobin Concent 32.2 Red Cell Distribution Width 22.7 H Platelet Count 204 # Mean Platelet Volume 11.7 H Neutrophils % 84.4 H Lymphocytes % 4.7 L Monocytes % 9.4 Eosinophils % 0.7 Basophils % 0.2 Nucleated Red Blood Cells % 0.0 Neutrophils # 8.9 H Lymphocytes # 0.5 L Monocytes # 1.0 H Eosinophils # 0.1 Basophils # 0.0 Nucleated Red Blood Cells # 0.0 Sodium Level 142 Potassium Level 3.1 L Chloride Level 101 Carbon Dioxide Level 30 Anion Gap 14 Blood Urea Nitrogen 22 H Creatinine 0.56 Glucose Level 114 # Calcium Level 6.4 L Phosphorus Level 3.6 Magnesium Level 1.7 Total Bilirubin 0.2 Direct Bilirubin 0.00 Indirect Bilirubin 0.2 Aspartate Amino Transf (AST/SGOT) 22 Alanine Aminotransferase (ALT/SGPT) 30 Alkaline Phosphatase 220 H Total Protein 4.2 L Albumin 1.7 L Globulin 2.50 Albumin/Globulin Ratio 0.68 Medications Medications Current Medications Morphine Sulfate (morphine) 2 mg Q4H PRN IV PAIN Last administered on 08:39; Admin Dose 2 MG; Start 09/15/16 at 23:30 Ondansetron HCl (Zofran Inj) 4 mg Q6H PRN IV NAUSEA AND/OR VOMITING Last administered on 09/26/16 09:23; Admin Dose 4 MG; Start 09/16/16 at 00:30 Acetaminophen (Tylenol Tab) 650 mg Q6H PRN PO PAIN LEVEL 1-3 OR FEVER Last administered on 10/04/16 02:10; Admin Dose 650 MG; Start 09/16/16 at 00:30 Polyethylene Glycol 17 gm 17 gm DAILY PO Last administered on 10/03/16 09:28; Admin Dose 17 GM; Start 09/20/16 at 11:00 Meropenem/Sodium Chloride 50 ml @ 200 mls/hr Q8 IVPB Last administered on 10/05 21:54; Admin Dose 200 MLS/HR; Start 09/20/16 at 22:00 Norepinephrine/ Dextrose (Levophed/D5W) 500 ml @ 1.87 mls/hr TITRATE IV Last administered on 10/01/16 14:05; Admin Dose 3.75 MLS/HR; Start 09/21/16 at 09:00 Acetaminophen/ Hydrocodone Bitart ([place] (5/325)) 1 tab Q4H PRN PO PAIN LEVEL 4 -7 Last administered on 09/28/16 21:20; Admin Dose 1 TAB; Start 09/21/16 at 15: 00 Acetaminophen/ Hydrocodone Bitart ([place] (5/325)) 2 tab Q4H PRN PO PAIN LEVEL 7 -10; Start 09/21/16 at 15:00 Hydromorphone HCl (Dilaudid) 0.5 mg Q2H PRN IV PAIN Last administered on 16:41; Admin Dose 0.5 MG; Start 09/21/16 at 15:00 Hydromorphone HCl (Dilaudid) 1 mg Q2H PRN IV PAIN Last administered on 09:12; Admin Dose 1 MG; Start 09/21/16 at 15:00 Docusate Sodium (Colace) 100 mg BID PRN PO CONSTIPATION; Start 09/21/16 at 15: 00 Enoxaparin Sodium (Lovenox) 40 mg DAILY SC ; Start 09/22/16 at 09:00; Status Future Hold Docusate Sodium (Colace Liquid Cup) 100 mg BID NGT Last administered on 21:53; Admin Dose 100 MG; Start 09/22/16 at 21:00 Pantoprazole (Protonix Iv) 40 mg DAILY@06 IV Last administered on 10/05/16 05: 28; Admin Dose 40 MG; Start 09/26/16 at 06:00 IV Flush (NS 10 ml) 10 ml PRN PRN IV IV PROTOCOL; Start 09/25/16 at 12:00 Spironolactone 50 mg 50 mg DAILY NGT Last administered on 10/05/16 08:47; Admin Dose 50 MG; Start 09/28/16 at 09:00 Dopamine HCl/ Dextrose 250 ml @ 6.053 mls/ hr TITRATE IV Last administered on 09/30/16 04:46; Admin Dose 6.053 MLS/HR; Start 09/29/16 at 11:00 Phenylephrine HCl 40 mg/Dextrose 500 ml @ 75 mls/hr TITRATE IV ; Start at 14:00 Caspofungin 50 mg/ Sodium Chloride 250 ml @ 250 mls/hr Q24H IVPB Last administered on 10/05/16 12:50; Admin Dose 250 MLS/HR; Start 10/01/16 at 12:00 Metronidazole 100 ml @ 100 mls/hr Q8 IVPB Last administered on 10/05/16 21:54 ; Admin Dose 100 MLS/HR; Start 09/30/16 at 14:00 Vancomycin HCl/ Sodium Chloride (Vancocin/NS) 250 ml @ 83.333 mls/ hr Q36H IVPB Last administered on 10/05/16 03:49; Admin Dose 83.333 MLS/HR; Start at 16:00 Metoprolol Tartrate (Lopressor) 12.5 mg BID NGT Last administered on 10/05/16 21:54; Admin Dose 12.5 MG; Start 10/05/16 at 11:00 Furosemide (Lasix) 20 mg Q6 IV Last administered on 10/05/16 17:23; Admin Dose 20 MG; Start 10/05/16 at 13:00 Lorazepam (Ativan) 0.5 mg Q6H PRN IV AGITATION/ANXIETY; Start 10/05/16 at 23:00 ; Status UNCORTNEY DOLAN MD Oct 05, 2016 23:09
[2016-10-05] MEDS: LORAZEPAM 2 MG INJ IV PRN (23:21)
[2016-10-06] VITALS (80 sets, daily range): BP systolic 66–172; BP diastolic 41–109; PULSE 93–141; RESP 16–53
[2016-10-06 00:02] LABS: AADO2 Arterial 532.2 mmHg (7.0-24.0); Allen Test ACCEPTAB; Arterial Base Excess 14.9 mmol/L (-3.0-3); Arterial COHb 0.3 % (0.0-3.0); Arterial Fraction of Oxyhgb 97.2 % (93.0-99.0); Arterial HCO3 39.1 mmol/L (22.0-26.0); Arterial MetHb 0.6 % (0.0-1.5); Arterial Total Hemglobin 9.6 g/dl (12.0-18.0); MODE MASK - NRB
--- NOTE | 2016-10-06 00:17 | RADRPT ---
PROCEDURE: Portable chest x-ray. CLINICAL INDICATION: Shortness of breath. TECHNIQUE: Portable AP view of the chest. COMPARISON: 10/05/2016 at 05:52 a.m. FINDINGS: There are patchy bilateral perihilar interstitial and airspace opacities, not significantly changed. The cardiac silhouette is magnified. There are aortic calcifications. No definite pleural effusio n is seen. There is no pneumothorax. A nasogastric tube has been removed. IMPRESSION: 1. Patchy bilateral perihilar interstitial and airspace opacities, not significantly changed. Thes e are suspicious for pulmonary edema. 2. Aortic atherosclerosis. RPTAT: HTAR .Ciaran Roper MD, Date Time Electronically viewed and signed by .Ciaran Roper MD, on 10/06/2016 00:17 .R/
[2016-10-06] MEDS: ALBUTEROL/IPRATROPIUM (NEB) 3 ML AMP HHN SCH ×5 (01:09→16:44)
[2016-10-06] MEDS: ACETYLCYSTEINE 20% 4 ML VIAL NEB SCH ×6 (01:09→21:58)
[2016-10-06] MEDS ORDERED: LORAZEPAM 2 MG INJ IV ONE (02:00)
[2016-10-06] MEDS ORDERED: FUROSEMIDE 20 MG INJ IV ONE (02:00)
[2016-10-06 04:40] LABS: ABNORMAL IP MESSAGE 1; BASOPHIL # 0.1 10^3/ul (0.0-0.1); BASOPHILS % 0.3 % (0.0-2.0); HEMATOCRIT 25.9 % (37.0-47.0); HEMOGLOBIN 8.3 g/dl (12.0-16.0); LYMPHOCYTES # 0.4 10^3/ul (0.8-2.9); LYMPHOCYTES % 2.3 % (15.0-51.0); MEAN CORPUSCULAR HEMOGLOBIN 27.1 pg (29.0-33.0); MEAN CORPUSCULAR VOLUME 84.6 fl (82.0-101.0); MEAN PLATELET VOLUME 11.7 fl (7.4-10.4); MONOCYTE # 1.1 10^3/ul (0.3-0.9); MONOCYTES % 6.8 % (0.0-11.0); NEUTROPHIL # 14.1 10^3/ul (1.6-7.5); NEUTROPHILS % 89.8 % (39.0-77.0); PLATELET COUNT 298 10^3/UL (140-415); RED BLOOD COUNT 3.06 10^6/ul (4.20-5.40); RED CELL DISTRIBUTION WIDTH 22.8 % (11.5-14.5); WHITE BLOOD COUNT 15.8 10^3/ul (4.8-10.8)
[2016-10-06 04:57] LABS: ALBUMIN 2.2 g/dl (3.3-4.9); ALBUMIN/GLOBULIN RATIO 0.7; BILIRUBIN,INDIRECT 0.4 mg/dl (0-1.1); BILIRUBIN,TOTAL 0.4 mg/dl (0.2-1.3); CALCIUM 7.4 mg/dl (8.4-10.2); CREATININE 0.74 mg/dl (0.44-1.00); POTASSIUM 3.4 mmol/L (3.5-5.1); TOTAL PROTEIN 5.3 g/dl (6.1-8.1)
[2016-10-06 04:59] LABS: CALCIUM 7.4 mg/dl (8.4-10.2); CREATININE 0.8 mg/dl (0.44-1.00); MAGNESIUM 1.9 mg/dl (1.7-2.5); PHOSPHORUS 5.1 mg/dl (2.5-4.9); POTASSIUM 3.2 mmol/L (3.5-5.1)
[2016-10-06] MEDS: PANTOPRAZOLE 40 MG INJ IV SCH (05:04)
[2016-10-06] MEDS: FUROSEMIDE 20 MG INJ IV SCH ×3 (05:04→18:45)
[2016-10-06] MEDS: metroNIDAZOLE 500 MG/NS (PMX) 100 ML IVPB SCH ×3 (05:05→21:37)
[2016-10-06] MEDS: MEROPENEM 500MG/50 ML (PMX) 50 ML IVPB SCH ×3 (05:05→21:38)
[2016-10-06 05:09] LABS: INR 1.48; PT RATIO 1.4
[2016-10-06 05:10] LABS: PARTIAL THROMBOPLASTIN TIME 31.7 Sec (25.0-35.0)
[2016-10-06 05:15] LABS: POSITIVE DIFF @See below
[2016-10-06] MEDS ORDERED: SUCCINYLCHOLINE CHLORIDE 100 MG/5 ML SYG IV ONE (07:00)
[2016-10-06] MEDS ORDERED: ETOMIDATE 20 MG INJ ONE (07:00)
--- NOTE | 2016-10-06 07:16 | PN ---
Date/Time of Note Date/Time of Note DATE: 10/06/16 TIME: 07:12 Assessment/Plan VTE Prophylaxis VTE Prophylaxis Intervention: other Lines/Catheters IV Catheter Type (from Nrsg): PICC Line Central line still needed: Yes Urinary Cath still in place: Yes Reason Cath still needed: other (indicate) Assessment/Plan Chief Complaint/Hosp Course Nonoliguric acute kidney injury. Etiology secondary ATN -Renal function has been improved with supportive care continue current treatment plan renally dose meds avoid nephrotoxins Hypernatremia Improved Continue free water flushes, Monitor serial sodium levels Hypokalemia secondary to diuretics Replete potassium chloride as needed Aldactone 50 mg daily Monitor closely Volume overload/anasarca secondary CHF, third spacing -Patient remains volume overloaded, worsening pulmonary edema Patient given 60 mg of Lasix overnight Diuretics being adjusted by cardiology, will defer for management We will monitor electrolytes closely Monitor I's and O's closely Metabolic alkalosis, secondary to diuretic therapy, hypokalemia, hypochloremia ABG reviewed Would give Diamox intermittently with loop diuretics Monitor electrolytes closely, replete as needed Sepsis status post shock Patient off pressors Continue broad-spectrum antibiotics next, follow-up cultures Monitor closely Anemia Monitor H&H levels Mineral bone disorder Monitor calcium phosphorus levels Lactic acidosis secondary to shock -Continue to monitor 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 -Continue treatment plan -Follow-up with surgery Respiratory failure, secondary to CHF Patient on BiPAP Chest x-ray ABG reviewed Follow-up with pulmonary, cardiology Continue diuresis History of intracranial hemorrhage in the past status post [facility] shunt placement that has been stable over time -[facility] shunt was externalized during the surgery September 21, 2016 due to abdominal infection, per neurosurgical notes may need to be reconnected once patient stable versus removed Problems: Subjective 24 Hr Interval Summary Free Text/Dictation Patient decompensated overnight Was placed on BiPAP X-ray showed pulmonary edema Patient given diuretic therapy with approximately 3 L urinary output Patient is critically ill Exam/Review of Systems Vital Signs Vitals Vital Signs Date Time Temp Pulse Resp B/P Pulse Ox O2 Delivery O2 Flow Rate FiO2 10/06/16 06:00 112/63 10/06/16 05:27 130 93 100 10/06/16 05:25 40 10/06/16 05:00 Non Rebreather 2.0 10/06/16 04:00 98.7 Intake and Output 10/05/16 10/05/16 10/06/16 15:00 23:00 07:00 Intake Total 1370 ml 980 ml 150 ml Output Total 1928 ml 1177 ml 2015 ml Balance -558 ml -197 ml -1865 ml Exam HEENT: Head is normocephalic, NECK: Supple. HEART: Irregular LUNGS: Show diminished breath sounds at base. ABDOMEN: Soft, nontender to palpation without rebound or guarding. EXTREMITIES: Negative for clubbing, cyanosis. Positive edema DERMATOLOGIC: No rashes. MUSCULOSKELETAL: No joint effusions, NEUROLOGIC: No change in exam. Results Result Diagram: 10/06/16 0422 10/06/16 0400 Results 24 hrs Laboratory Tests Test 10/05/16 23:24 10/06/16 04:00 10/06/16 04:22 Blood Gas Specimen Source Blood arterial Arterial Blood Date Drawn 10/05/2016 11:50:02 AM Arterial Blood pH (Temp corrected) 7.532 H Arterial Blood pCO2 (Temp correct) 47.7 H Arterial Blood pO2 (Temp corrected) 133.1 H Arterial Blood HCO3 39.1 H Arterial Blood Base Excess 14.9 H Arterial Blood Oxygen Saturation 98.1 Cain Test ACCEPTAB Arterial Blood Gas Puncture Site Right Radial Arterial Blood Carboxyhemoglobin 0.3 Arterial Blood Methemoglobin 0.6 Blood Gas A-a O2 Differential 532.2 H Oxyhemoglobin Percent 97.2 Total Hemoglobin 9.6 L Blood Gas Temperature 37.0 Blood Gas Actual Respiration Rate 38 Blood Gas Modality MASK - NRB FiO2 100.0 Blood Gas Notified Kamilah JONAS RCP Blood Gas Notified Time 10/06/2016 12:01:30 AM Prothrombin Time 18.0 H Prothrombin Time Ratio 1.4 INR International Normalized Ratio 1.48 Activated Partial Thromboplast Time 31.7 Sodium Level 145 H Potassium Level 3.4 L Chloride Level 94 L Carbon Dioxide Level 40 H Anion Gap 14 Blood Urea Nitrogen 24 H Creatinine 0.74 Glucose Level 106 Calcium Level 7.4 L Phosphorus Level 5.1 H Magnesium Level 1.9 Total Bilirubin 0.4 Direct Bilirubin 0.00 Indirect Bilirubin 0.4 Aspartate Amino Transf (AST/SGOT) 19 Alanine Aminotransferase (ALT/SGPT) 36 Alkaline Phosphatase 236 H B-Type Natriuretic Peptide 18429 H Total Protein 5.3 #L Albumin 2.2 L Globulin 3.10 Albumin/Globulin Ratio 0.70 White Blood Count 15.8 #H Red Blood Count 3.06 L Hemoglobin 8.3 L Hematocrit 25.9 L Mean Corpuscular Volume 84.6 Mean Corpuscular Hemoglobin 27.1 L Mean Corpuscular Hemoglobin Concent 32.0 Red Cell Distribution Width 22.8 H Platelet Count 298 # Mean Platelet Volume 11.7 H Neutrophils % 89.8 H Lymphocytes % 2.3 L Monocytes % 6.8 Eosinophils % 0.0 Basophils % 0.3 Nucleated Red Blood Cells % 0.0 Neutrophils # 14.1 H Lymphocytes # 0.4 L Monocytes # 1.1 H Eosinophils # 0.0 Basophils # 0.1 Nucleated Red Blood Cells # 0.0 Medications Medications Current Medications Morphine Sulfate (morphine) 2 mg Q4H PRN IV PAIN Last administered on 08:39; Admin Dose 2 MG; Start 09/15/16 at 23:30 Ondansetron HCl (Zofran Inj) 4 mg Q6H PRN IV NAUSEA AND/OR VOMITING Last administered on 09/26/16 09:23; Admin Dose 4 MG; Start 09/16/16 at 00:30 Acetaminophen (Tylenol Tab) 650 mg Q6H PRN PO PAIN LEVEL 1-3 OR FEVER Last administered on 10/04/16 02:10; Admin Dose 650 MG; Start 09/16/16 at 00:30 Polyethylene Glycol 17 gm 17 gm DAILY PO Last administered on 10/03/16 09:28; Admin Dose 17 GM; Start 09/20/16 at 11:00 Meropenem/Sodium Chloride 50 ml @ 200 mls/hr Q8 IVPB Last administered on 10/06 05:05; Admin Dose 200 MLS/HR; Start 09/20/16 at 22:00 Norepinephrine/ Dextrose (Levophed/D5W) 500 ml @ 1.87 mls/hr TITRATE IV Last administered on 10/01/16 14:05; Admin Dose 3.75 MLS/HR; Start 09/21/16 at 09:00 Acetaminophen/ Hydrocodone Bitart ([place] (5/325)) 1 tab Q4H PRN PO PAIN LEVEL 4 -7 Last administered on 09/28/16 21:20; Admin Dose 1 TAB; Start 09/21/16 at 15: 00 Acetaminophen/ Hydrocodone Bitart ([place] (5/325)) 2 tab Q4H PRN PO PAIN LEVEL 7 -10; Start 09/21/16 at 15:00 Hydromorphone HCl (Dilaudid) 0.5 mg Q2H PRN IV PAIN Last administered on 16:41; Admin Dose 0.5 MG; Start 09/21/16 at 15:00 Hydromorphone HCl (Dilaudid) 1 mg Q2H PRN IV PAIN Last administered on 09:12; Admin Dose 1 MG; Start 09/21/16 at 15:00 Docusate Sodium (Colace) 100 mg BID PRN PO CONSTIPATION; Start 09/21/16 at 15: 00 Enoxaparin Sodium (Lovenox) 40 mg DAILY SC ; Start 09/22/16 at 09:00; Status Future Hold Docusate Sodium (Colace Liquid Cup) 100 mg BID NGT Last administered on 21:53; Admin Dose 100 MG; Start 09/22/16 at 21:00 Pantoprazole (Protonix Iv) 40 mg DAILY@06 IV Last administered on 10/06/16 05: 04; Admin Dose 40 MG; Start 09/26/16 at 06:00 IV Flush (NS 10 ml) 10 ml PRN PRN IV IV PROTOCOL; Start 09/25/16 at 12:00 Spironolactone 50 mg 50 mg DAILY NGT Last administered on 10/05/16 08:47; Admin Dose 50 MG; Start 09/28/16 at 09:00 Dopamine HCl/ Dextrose 250 ml @ 6.053 mls/ hr TITRATE IV Last administered on 09/30/16 04:46; Admin Dose 6.053 MLS/HR; Start 09/29/16 at 11:00 Phenylephrine HCl 40 mg/Dextrose 500 ml @ 75 mls/hr TITRATE IV ; Start at 14:00 Caspofungin 50 mg/ Sodium Chloride 250 ml @ 250 mls/hr Q24H IVPB Last administered on 10/05/16 12:50; Admin Dose 250 MLS/HR; Start 10/01/16 at 12:00 Metronidazole 100 ml @ 100 mls/hr Q8 IVPB Last administered on 10/06/16 05:05 ; Admin Dose 100 MLS/HR; Start 09/30/16 at 14:00 Vancomycin HCl/ Sodium Chloride (Vancocin/NS) 250 ml @ 83.333 mls/ hr Q36H IVPB Last administered on 10/05/16 03:49; Admin Dose 83.333 MLS/HR; Start at 16:00 Metoprolol Tartrate (Lopressor) 12.5 mg BID NGT Last administered on 10/05/16 21:54; Admin Dose 12.5 MG; Start 10/05/16 at 11:00 Furosemide (Lasix) 20 mg Q6 IV Last administered on 10/06/16 05:04; Admin Dose 20 MG; Start 10/05/16 at 13:00 Lorazepam (Ativan) 0.5 mg Q6H PRN IV AGITATION/ANXIETY Last administered on 23:21; Admin Dose 0.5 MG; Start 10/05/16 at 23:00 KIRAN CASTILLO DO Oct 06, 2016 07:16
[2016-10-06] MEDS ORDERED: POTASSIUM CHLORIDE 250 ML IVPB ONE (07:30)
[2016-10-06] MEDS ORDERED: NORepinephrine 8MG/250 ML (PMX 250 ML ONE (07:39)
[2016-10-06] MEDS ORDERED: NORepinephrine 8MG/250 ML (PMX 250 ML IV SCH (07:43)
[2016-10-06 08:17] LABS: AADO2 Arterial 531.7 mmHg (7.0-24.0); Allen Test ACCEPTAB; Arterial Base Excess 10.7 mmol/L (-3.0-3); Arterial COHb 0.3 % (0.0-3.0); Arterial Fraction of Oxyhgb 97.9 % (93.0-99.0); Arterial HCO3 34.2 mmol/L (22.0-26.0); Arterial MetHb 0.5 % (0.0-1.5); Arterial Total Hemglobin 9.8 g/dl (12.0-18.0); Blood Gas IEPAP 15/5; Blood Gas PS 10; MODE MASK - BIPAP
--- NOTE | 2016-10-06 08:58 | PN ---
Date/Time of Note Date/Time of Note DATE: 10/06/16 TIME: 08:51 Assessment/Plan VTE Prophylaxis VTE Prophylaxis Intervention: anti-embolic stocking, SCD's Lines/Catheters IV Catheter Type (from Nrsg): PICC Line Central line still needed: Yes Urinary Cath still in place: Yes Reason Cath still needed: other (indicate) Assessment/Plan Assessment/Plan Acute respiratory failure: Reintubated 09/29 after failing BiPAP. Was improving but back on BiPAP due to decompensation. Acute diastolic heart failure: Secondary to volume resuscitation in setting of low albumin and third spacing. Significant anasarca. Diuresing Paroxysmal afib: converted on amiodarone. Currently in sinus tachycardia. Septic shock: from intraabdominal abscess and possible infected [employer] shunt. S/p sigmoid colectomy. Back on Levophed 10 mcg/min Tension pneumothorax: due to thoracentesis. s/p chest tube 09/30 NSTEMI: Trop mildly elevated likely type II in the setting of septic shock. Echo from 09/18 showed normal EF and no significant valvular disease. Repeat trop normalized Diverticulitis complicated by abscess s/p sigmoid colectomy and now colostomy Coagulopathy: ?DIC. Resolved h/o ICH with [employer] shunt -Continue Lasix to 20mg IV [id number], will add a dose of Diamox today, closely follow I/Os, electrolytes -Continue Levophed to maintain MAP > 65 -Continue BiPAP per Pulm, follow ABG/CXR -Continue broad spectrum Abx, consider repeat cultures -Remainder per other MDs -Guarded prognosis 35 minutes of critical care time, exclusive of other billable procedures. Subjective 24 Hr Interval Summary Free Text/Dictation Worsening respiratory distress earlier this am, placed on BiPAP, hypotensive--> now on Levophed, tachycardic Exam/Review of Systems Vital Signs Vitals Vital Signs Date Time Temp Pulse Resp B/P Pulse Ox O2 Delivery O2 Flow Rate FiO2 10/06/16 08:00 139 10/06/16 06:00 112/63 10/06/16 05:27 93 100 10/06/16 05:25 40 10/06/16 05:00 Non Rebreather 2.0 10/06/16 04:00 98.7 Intake and Output 10/05/16 10/05/16 10/06/16 15:00 23:00 07:00 Intake Total 1370 ml 980 ml 150 ml Output Total 1928 ml 1177 ml 2015 ml Balance -558 ml -197 ml -1865 ml Exam Constitutional: somnolent HEENT: NCAT Neck: No obvious JVD, no carotid bruits Respiratory: on BiPAP, tachypneic, diminished breath sounds, scattered crackles , no wheezes; chest tube noted Cardiovascular: Tachycardic, regular, no m/r/g, 2+ pitting BLE edema Gastrointestinal: non-tender, soft, grimaces to palpation Extremities: warm, no cyanosis or clubbing, LE SCDs in place Results CXR 10/05/16: 1. Patchy bilateral perihilar interstitial and airspace opacities, not significantly changed. These are suspicious for pulmonary edema. 2. Aortic atherosclerosis. Result Diagram: 10/06/16 0422 10/06/16 0400 Results 24 hrs Laboratory Tests Test 10/05/16 23:24 10/06/16 04:00 10/06/16 04:22 10/06/16 07:00 Blood Gas Specimen Source Blood arterial Blood arterial Arterial Blood Date Drawn 10/05/2016 11:50:02 AM 10/06/2016 8:10:29 AM Arterial Blood pH (Temp corrected) 7.532 H 7.646 *H Arterial Blood pCO2 (Temp correct) 47.7 H 30.3 L Arterial Blood pO2 (Temp corrected) 133.1 H 166.1 H Arterial Blood HCO3 39.1 H 34.2 H Arterial Blood Base Excess 14.9 H 10.7 H Arterial Blood Oxygen Saturation 98.1 98.7 Cain Test ACCEPTAB ACCEPTAB Arterial Blood Gas Puncture Site Right Radial Right Radial Arterial Blood Carboxyhemoglobin 0.3 0.3 Arterial Blood Methemoglobin 0.6 0.5 Blood Gas A-a O2 Differential 532.2 H 531.7 H Oxyhemoglobin Percent 97.2 97.9 Total Hemoglobin 9.6 L 9.8 L Blood Gas Temperature 37.0 30.0 Blood Gas Actual Respiration Rate 38 46 Blood Gas Modality MASK - NRB MASK - BIPAP FiO2 100.0 100.0 Blood Gas Notified Whom SUMI HOWE RT Blood Gas Notified Time 10/06/2016 12:01:30 AM 10/06/2016 8:14:13 AM Prothrombin Time 18.0 H Prothrombin Time Ratio 1.4 INR International Normalized Ratio 1.48 Activated Partial Thromboplast Time 31.7 Sodium Level 145 H Potassium Level 3.4 L Chloride Level 94 L Carbon Dioxide Level 40 H Anion Gap 14 Blood Urea Nitrogen 24 H Creatinine 0.74 Glucose Level 106 Calcium Level 7.4 L Phosphorus Level 5.1 H Magnesium Level 1.9 Total Bilirubin 0.4 Direct Bilirubin 0.00 Indirect Bilirubin 0.4 Aspartate Amino Transf (AST/SGOT) 19 Alanine Aminotransferase (ALT/SGPT) 36 Alkaline Phosphatase 236 H B-Type Natriuretic Peptide 16917 H Total Protein 5.3 #L Albumin 2.2 L Globulin 3.10 Albumin/Globulin Ratio 0.70 White Blood Count 15.8 #H Red Blood Count 3.06 L Hemoglobin 8.3 L Hematocrit 25.9 L Mean Corpuscular Volume 84.6 Mean Corpuscular Hemoglobin 27.1 L Mean Corpuscular Hemoglobin Concent 32.0 Red Cell Distribution Width 22.8 H Platelet Count 298 # Mean Platelet Volume 11.7 H Neutrophils % 89.8 H Lymphocytes % 2.3 L Monocytes % 6.8 Eosinophils % 0.0 Basophils % 0.3 Nucleated Red Blood Cells % 0.0 Neutrophils # 14.1 H Lymphocytes # 0.4 L Monocytes # 1.1 H Eosinophils # 0.0 Basophils # 0.1 Nucleated Red Blood Cells # 0.0 Blood Gas Respiration Rate 18.0 Blood Gas Pressure Support 10 Blood Gas IPAP/EPAP Ratio 15/5 Blood Gas Critical Value Read Back IRENEA MACATANGAY Medications Medications Current Medications Morphine Sulfate (morphine) 2 mg Q4H PRN IV PAIN Last administered on 08:39; Admin Dose 2 MG; Start 09/15/16 at 23:30 Ondansetron HCl (Zofran Inj) 4 mg Q6H PRN IV NAUSEA AND/OR VOMITING Last administered on 09/26/16 09:23; Admin Dose 4 MG; Start 09/16/16 at 00:30 Acetaminophen (Tylenol Tab) 650 mg Q6H PRN PO PAIN LEVEL 1-3 OR FEVER Last administered on 10/04/16 02:10; Admin Dose 650 MG; Start 09/16/16 at 00:30 Polyethylene Glycol 17 gm 17 gm DAILY PO Last administered on 10/03/16 09:28; Admin Dose 17 GM; Start 09/20/16 at 11:00 Meropenem/Sodium Chloride 50 ml @ 200 mls/hr Q8 IVPB Last administered on 10/06 05:05; Admin Dose 200 MLS/HR; Start 09/20/16 at 22:00 Norepinephrine/ Dextrose (Levophed/D5W) 500 ml @ 1.87 mls/hr TITRATE IV Last administered on 10/01/16 14:05; Admin Dose 3.75 MLS/HR; Start 09/21/16 at 09:00 Acetaminophen/ Hydrocodone Bitart ([place] (5/325)) 1 tab Q4H PRN PO PAIN LEVEL 4 -7 Last administered on 09/28/16 21:20; Admin Dose 1 TAB; Start 09/21/16 at 15: 00 Acetaminophen/ Hydrocodone Bitart ([place] (5/325)) 2 tab Q4H PRN PO PAIN LEVEL 7 -10; Start 09/21/16 at 15:00 Hydromorphone HCl (Dilaudid) 0.5 mg Q2H PRN IV PAIN Last administered on 16:41; Admin Dose 0.5 MG; Start 09/21/16 at 15:00 Hydromorphone HCl (Dilaudid) 1 mg Q2H PRN IV PAIN Last administered on 09:12; Admin Dose 1 MG; Start 09/21/16 at 15:00 Docusate Sodium (Colace) 100 mg BID PRN PO CONSTIPATION; Start 09/21/16 at 15: 00 Enoxaparin Sodium (Lovenox) 40 mg DAILY SC ; Start 09/22/16 at 09:00; Status Future Hold Docusate Sodium (Colace Liquid Cup) 100 mg BID NGT Last administered on 21:53; Admin Dose 100 MG; Start 09/22/16 at 21:00 Pantoprazole (Protonix Iv) 40 mg DAILY@06 IV Last administered on 10/06/16 05: 04; Admin Dose 40 MG; Start 09/26/16 at 06:00 IV Flush (NS 10 ml) 10 ml PRN PRN IV IV PROTOCOL; Start 09/25/16 at 12:00 Spironolactone 50 mg 50 mg DAILY NGT Last administered on 10/05/16 08:47; Admin Dose 50 MG; Start 09/28/16 at 09:00 Dopamine HCl/ Dextrose 250 ml @ 6.053 mls/ hr TITRATE IV Last administered on 09/30/16 04:46; Admin Dose 6.053 MLS/HR; Start 09/29/16 at 11:00 Phenylephrine HCl 40 mg/Dextrose 500 ml @ 75 mls/hr TITRATE IV ; Start at 14:00 Caspofungin 50 mg/ Sodium Chloride 250 ml @ 250 mls/hr Q24H IVPB Last administered on 10/05/16 12:50; Admin Dose 250 MLS/HR; Start 10/01/16 at 12:00 Metronidazole 100 ml @ 100 mls/hr Q8 IVPB Last administered on 10/06/16 05:05 ; Admin Dose 100 MLS/HR; Start 09/30/16 at 14:00 Vancomycin HCl/ Sodium Chloride (Vancocin/NS) 250 ml @ 83.333 mls/ hr Q36H IVPB Last administered on 10/05/16 03:49; Admin Dose 83.333 MLS/HR; Start at 16:00 Metoprolol Tartrate (Lopressor) 12.5 mg BID NGT Last administered on 10/05/16 21:54; Admin Dose 12.5 MG; Start 10/05/16 at 11:00 Furosemide (Lasix) 20 mg Q6 IV Last administered on 10/06/16 05:04; Admin Dose 20 MG; Start 10/05/16 at 13:00 Lorazepam 0.5 mg 0.5 mg Q6H PRN IV AGITATION/ANXIETY Last administered on 23:21; Admin Dose 0.5 MG; Start 10/05/16 at 23:00 Potassium Chloride (KCl 40 MEQ/250 ML NS) 250 ml @ 62.5 mls/hr ONCE ONCE IVPB Last administered on 10/06/16 07:56; Admin Dose 62.5 MLS/HR; Start 10/06/16 at 07:30; Stop 10/06/16 at 11:29 SOPHIE PATTON MD Oct 06, 2016 08:58
[2016-10-06] MEDS: SPIRONOLACTONE 50 MG TAB NGT SCH (09:00)
[2016-10-06] MEDS: POLYETHYLENE GLYCOL 17 GM PACKET PO SCH (09:00)
[2016-10-06] MEDS: DOCUSATE SODIUM 10 MG/ML (10ML CUP) NGT SCH ×2 (09:00→21:00)
--- NOTE | 2016-10-06 09:16 | CONS ---
Date/Time of Note Date/Time of Note DATE: 10/06/16 TIME: 09:13 Assessment/Plan Assessment/Plan Additional Assessment/Plan Chest x-ray was reviewed from earlier this morning which is showing mild pulmonary edema. Patient currently on Levophed at 10 mics per minute. Assessment and recommendations; 1. Patient admitted with sepsis due to ileus was intubated and successfully extubated 3 days ago now having worsening respiratory status requiring BiPAP at high pressure 15/5 100% FiO2 with a backup rate of 18. 2. Bilateral pneumonia. 3. History of recent colostomy. 4. Increasing leukocytosis. 5. Right pneumothorax, with chest tube in place. No further air leak in the Pleur-evac chamber. 6. Status post left thoracentesis a few days ago. Continue current treatment. Prognosis is poor. Consultation Date/Type/Reason Admit Date/Time Sep 15, 2016 at 21:35 Initial Consult Date 09/21/16 Type of Consultation: Pulmonary/critical care 24 HR Interval Summary Free Text/Dictation Patient condition is taken a turn for the worse overnight. Not requiring continuous BiPAP at high pressure. Patient also remains quite tachypneic and lethargic. General exam; elderly woman, on BiPAP, appearing tachypneic and minimally responsive. Exam/Review of Systems Vital Signs Vitals Vital Signs Date Time Temp Pulse Resp B/P Pulse Ox O2 Delivery O2 Flow Rate FiO2 10/06/16 09:00 138 48 108/65 100 BIPAP 10/06/16 08:55 100 10/06/16 08:00 99.0 10/06/16 05:00 2.0 Intake and Output 10/05/16 10/05/16 10/06/16 15:00 23:00 07:00 Intake Total 1370 ml 980 ml 150 ml Output Total 1928 ml 1177 ml 2015 ml Balance -558 ml -197 ml -1865 ml Exam HEENT exam; supple neck, positive JVD. No lymphadenopathy. Midline trachea. There is positive use of accessory muscles of respiration. Patient is on full face BiPAP. Chest exam; diminished breath sounds throughout with bilateral crackles. S1-S2 audible, no murmurs. Regular rhythm. Abdomen exam; soft, a colostomy in place. Bowel sounds are sluggish. No organomegaly felt. Extremity exam; trace edema. TREE WRAPPER exam; patient is lethargic. Results Result Diagram: 10/06/16 0422 10/06/16 0400 Results 24 hrs Laboratory Tests Test 10/05/16 23:24 10/06/16 04:00 10/06/16 04:22 10/06/16 07:00 Blood Gas Specimen Source Blood arterial Blood arterial Arterial Blood Date Drawn 10/05/2016 11:50:02 AM 10/06/2016 8:10:29 AM Arterial Blood pH (Temp corrected) 7.532 H 7.646 *H Arterial Blood pCO2 (Temp correct) 47.7 H 30.3 L Arterial Blood pO2 (Temp corrected) 133.1 H 166.1 H Arterial Blood HCO3 39.1 H 34.2 H Arterial Blood Base Excess 14.9 H 10.7 H Arterial Blood Oxygen Saturation 98.1 98.7 Cain Test ACCEPTAB ACCEPTAB Arterial Blood Gas Puncture Site Right Radial Right Radial Arterial Blood Carboxyhemoglobin 0.3 0.3 Arterial Blood Methemoglobin 0.6 0.5 Blood Gas A-a O2 Differential 532.2 H 531.7 H Oxyhemoglobin Percent 97.2 97.9 Total Hemoglobin 9.6 L 9.8 L Blood Gas Temperature 37.0 30.0 Blood Gas Actual Respiration Rate 38 46 Blood Gas Modality MASK - NRB MASK - BIPAP FiO2 100.0 100.0 Blood Gas Notified Whom SUMI HOWE RT Blood Gas Notified Time 10/06/2016 12:01:30 AM 10/06/2016 8:14:13 AM Prothrombin Time 18.0 H Prothrombin Time Ratio 1.4 INR International Normalized Ratio 1.48 Activated Partial Thromboplast Time 31.7 Sodium Level 145 H Potassium Level 3.4 L Chloride Level 94 L Carbon Dioxide Level 40 H Anion Gap 14 Blood Urea Nitrogen 24 H Creatinine 0.74 Glucose Level 106 Calcium Level 7.4 L Phosphorus Level 5.1 H Magnesium Level 1.9 Total Bilirubin 0.4 Direct Bilirubin 0.00 Indirect Bilirubin 0.4 Aspartate Amino Transf (AST/SGOT) 19 Alanine Aminotransferase (ALT/SGPT) 36 Alkaline Phosphatase 236 H B-Type Natriuretic Peptide 28457 H Total Protein 5.3 #L Albumin 2.2 L Globulin 3.10 Albumin/Globulin Ratio 0.70 White Blood Count 15.8 #H Red Blood Count 3.06 L Hemoglobin 8.3 L Hematocrit 25.9 L Mean Corpuscular Volume 84.6 Mean Corpuscular Hemoglobin 27.1 L Mean Corpuscular Hemoglobin Concent 32.0 Red Cell Distribution Width 22.8 H Platelet Count 298 # Mean Platelet Volume 11.7 H Neutrophils % 89.8 H Lymphocytes % 2.3 L Monocytes % 6.8 Eosinophils % 0.0 Basophils % 0.3 Nucleated Red Blood Cells % 0.0 Neutrophils # 14.1 H Lymphocytes # 0.4 L Monocytes # 1.1 H Eosinophils # 0.0 Basophils # 0.1 Nucleated Red Blood Cells # 0.0 Blood Gas Respiration Rate 18.0 Blood Gas Pressure Support 10 Blood Gas IPAP/EPAP Ratio 15/5 Blood Gas Critical Value Read Back IRENEA MACATANGAY Medications Medications Current Medications Morphine Sulfate (morphine) 2 mg Q4H PRN IV PAIN Last administered on 08:39; Admin Dose 2 MG; Start 09/15/16 at 23:30 Ondansetron HCl (Zofran Inj) 4 mg Q6H PRN IV NAUSEA AND/OR VOMITING Last administered on 09/26/16 09:23; Admin Dose 4 MG; Start 09/16/16 at 00:30 Acetaminophen (Tylenol Tab) 650 mg Q6H PRN PO PAIN LEVEL 1-3 OR FEVER Last administered on 10/04/16 02:10; Admin Dose 650 MG; Start 09/16/16 at 00:30 Polyethylene Glycol 17 gm 17 gm DAILY PO Last administered on 10/03/16 09:28; Admin Dose 17 GM; Start 09/20/16 at 11:00 Meropenem/Sodium Chloride 50 ml @ 200 mls/hr Q8 IVPB Last administered on 10/06 05:05; Admin Dose 200 MLS/HR; Start 09/20/16 at 22:00 Norepinephrine/ Dextrose (Levophed/D5W) 500 ml @ 1.87 mls/hr TITRATE IV Last administered on 10/01/16 14:05; Admin Dose 3.75 MLS/HR; Start 09/21/16 at 09:00 Acetaminophen/ Hydrocodone Bitart ([place] (5/325)) 1 tab Q4H PRN PO PAIN LEVEL 4 -7 Last administered on 09/28/16 21:20; Admin Dose 1 TAB; Start 09/21/16 at 15: 00 Acetaminophen/ Hydrocodone Bitart ([place] (5/325)) 2 tab Q4H PRN PO PAIN LEVEL 7 -10; Start 09/21/16 at 15:00 Hydromorphone HCl (Dilaudid) 0.5 mg Q2H PRN IV PAIN Last administered on 16:41; Admin Dose 0.5 MG; Start 09/21/16 at 15:00 Hydromorphone HCl (Dilaudid) 1 mg Q2H PRN IV PAIN Last administered on 09:12; Admin Dose 1 MG; Start 09/21/16 at 15:00 Docusate Sodium (Colace) 100 mg BID PRN PO CONSTIPATION; Start 09/21/16 at 15: 00 Enoxaparin Sodium (Lovenox) 40 mg DAILY SC ; Start 09/22/16 at 09:00; Status Future Hold Docusate Sodium (Colace Liquid Cup) 100 mg BID NGT Last administered on 21:53; Admin Dose 100 MG; Start 09/22/16 at 21:00 Pantoprazole (Protonix Iv) 40 mg DAILY@06 IV Last administered on 10/06/16 05: 04; Admin Dose 40 MG; Start 09/26/16 at 06:00 IV Flush (NS 10 ml) 10 ml PRN PRN IV IV PROTOCOL; Start 09/25/16 at 12:00 Spironolactone 50 mg 50 mg DAILY NGT Last administered on 10/05/16 08:47; Admin Dose 50 MG; Start 09/28/16 at 09:00 Dopamine HCl/ Dextrose 250 ml @ 6.053 mls/ hr TITRATE IV Last administered on 09/30/16 04:46; Admin Dose 6.053 MLS/HR; Start 09/29/16 at 11:00 Phenylephrine HCl 40 mg/Dextrose 500 ml @ 75 mls/hr TITRATE IV ; Start at 14:00 Caspofungin 50 mg/ Sodium Chloride 250 ml @ 250 mls/hr Q24H IVPB Last administered on 10/05/16 12:50; Admin Dose 250 MLS/HR; Start 10/01/16 at 12:00 Metronidazole 100 ml @ 100 mls/hr Q8 IVPB Last administered on 10/06/16 05:05 ; Admin Dose 100 MLS/HR; Start 09/30/16 at 14:00 Vancomycin HCl/ Sodium Chloride (Vancocin/NS) 250 ml @ 83.333 mls/ hr Q36H IVPB Last administered on 10/05/16 03:49; Admin Dose 83.333 MLS/HR; Start at 16:00 Furosemide (Lasix) 20 mg Q6 IV Last administered on 10/06/16 05:04; Admin Dose 20 MG; Start 10/05/16 at 13:00 Lorazepam 0.5 mg 0.5 mg Q6H PRN IV AGITATION/ANXIETY Last administered on 23:21; Admin Dose 0.5 MG; Start 10/05/16 at 23:00 Potassium Chloride (KCl 40 MEQ/250 ML NS) 250 ml @ 62.5 mls/hr ONCE ONCE IVPB Last administered on 10/06/16 07:56; Admin Dose 62.5 MLS/HR; Start 10/06/16 at 07:30; Stop 10/06/16 at 11:29 Acetazolamide (Diamox) 250 mg ONCE ONCE IV ; Start 10/06/16 at 09:00; Stop at 09:01; Status GERARDO ERIC Oct 06, 2016 09:16
[2016-10-06] MEDS ORDERED: ACETAZOLAMIDE 500 MG INJ IV ONE (10:30)
[2016-10-06] MEDS: CASPOFUNGIN 50 MG in SOD CHLORIDE 0.9% 250 ML IVPB SCH (11:52)
--- NOTE | 2016-10-06 13:31 | EN ---
Date/Time of Note Date/Time of Note DATE: 10/06/16 TIME: 13:30 ER Progress Note I was called to ICU room 116 for evaluation of the patient in respiratory distress. This patient was on a BiPAP, and had recently been extubated. This patient has been more altered than normal, tachypneic and tachycardic. The patient was evaluated by her surgeon and the recommendation was made for intubation. I intubated this patient without complication. Please see intubation note. Patient is stable, not hypoxic. Endotracheal Intubation by me: Pre assessment performed. See preceding note for details. Pre-oxygenation performed with 100% oxygen RSI: Performed w/o complication or hypoxic events. Medications as ordered. Blade: [Mac 4] ET Tube: 7 cm Depth: 21] cm at the lip Intubation confirmed by colorimetric CO2, equal breath sounds, quiet over the stomach. Chest X-ray 1V Interpreted by me: 3 cm above the zana ET tube. Normal soft tissue, No pneumothorax. JAKE SHERIFF DO Oct 06, 2016 13:31
--- NOTE | 2016-10-06 13:31 | PN ---
Date/Time of Note Date/Time of Note DATE: 10/06/16 TIME: 12:54 Assessment/Plan Lines/Catheters IV Catheter Type (from [facility]): PICC Line Shore in Place (from [facility]): Yes Assessment/Plan Assessment/Plan [facility] Progress Note Date of Service: 10/06/2016 Place of service: [facility] ICU Today's Assessment & Plan: Deteriorated last night. Appears pulmonary in nature. I believe there is still a good chance that the patient can survive all of this and I strongly am in favor of maintaining an aggressive approach, including intubation for airway protection. I spoke with Guille (newly designated family decision maker). He is in complete agreement with intubation. He also asked me to keep patient's ex- to also be involved in decision making. I also obtained their permission for tracheostomy and PEG to be done next week. Spoke with Dr. Nicole from ICU/pulmonary/critical care who is in agreement. No indication for acute surgical intervention. With above assessment, I recommended the following for today: 1. Continue aggressive medical management with intubation (code called) 2. Continue wound VAC; dressing change 3 times a week 3. Cont aggressive pulmonary toilet 4. Cont Lasix as allowed by her clinical condition 5. Labs in am 6. Please maintain multidisciplinary discussion regarding fluid intake, CODE STATUS, and other major medical decisions since this is a fragile surgical patient with recent sepsis and shock; I changed code status to full code, but without chest compression or electric shock 7. Targeted antimicrobial therapy to culture results 8. PT OT 9. Management of [employer] shunt per Dr. Miner 10. Repeat swallowing test early next week and if she passes, to start oral intake with regular diet; continue NG feeds in the meantime 11. Keep in the ICU today 12. Social work and case management to please start working on disposition planning (rehab versus SNF) 13. Please note: Guille, who is the patient's decision maker currently, would like Mr. Yanez (patient's ex-) to still be involved in her care. He should still have full access to the hospital and patient according to Guille. Thank you again for your great care of this very pleasant patient and wonderful family. If there are any questions, please feel free to call me at [phone]. Nature of presenting problem: High severity Please note that, given the extensive number of diagnoses or management options , the extensive amount and/or complexity of data needed to be reviewed, and I risk of complications and/or morbidity or mortality, this qualifies as high complexity type of decision-making. Disclaimer: Inadvertent spelling and grammatical errors are likely due to EHR/ dictation software use and do not reflect on the quality of delivered patient care. Also, please note that the electronic time recorded on this node does not necessarily reflect the actual time of the visit. Updated Clinical Summary: A very pleasant 70-year-old lady without significant known past medical history other than a [employer] shunt placement many years ago which she did not remember or report, presenting with what appears to be a sigmoid colon abscess or pericolonic abscess, which seemed to be a complication of diverticulitis. S/p IR drainage 09/09/16 with removal of 20 cc pus and placement of a 10 Fr. pigtail catheter at [facility]. D/c home 09/12/16. Re-presented to [place] ED 09/15/16 after being diverted from [facility] (due to internal disaster diversion) where CT was done showing adequate placement of the percutaneous drain near the sigmoid colon and decompressed sigmoid colon abscess, no obvious free air or significant spillage of stool in the abdominal cavity, and incidental finding of tail of the [employer] shunt in the pelvis (new from right upper quadrant position of the same drain on the CT scan at [facility]). Transfer to [facility] 09/15/2016 for further cares. S/p upsizing of drain to 12 Fr pigtail on 09/17/16 (communication with colon demonstrated; no obvious free communication to rest of peritoneal space). Patient decompensated in the early hours of the morning on 09/21/2016 and had to be transferred to the intensive care unit with need for endotracheal tube intubation, central line placement, and resuscitation for treatment of shock with lactic acidosis and evidence of peritonitis and free air on the new chest, abdomen, and pelvis CT scan. S/p a rather challenging sigmoid colectomy with performance of end colostomy (Reid's procedure), takedown of splenic flexure of the colon, lysis of adhesions (60 minutes), and abdominal lavage at [facility] on 09/21/16; diagnosis of colon ischemia (distal transverse colon and descending colon) during reentry through recent laparotomy incision with exploration of abdominal cavity, takedown of colostomy, completion left hemicolectomy with resection of distal transverse colon, lysis of adhesions, abdominal lavage, performance of an end colostomy [facility] 09/24/16. Extubated post op evening of 09/25/16. Decompensation with intubation and restart of pressors . Right-sided pneumothorax after drainage of right pleural effusion requiring chest tube placement 09/30/2016. Extubated 10/03/2016. Decompensation with reintubation 10/06/16. Comorbidities: 1. Perforated sigmoid colon (see below) 2. Status post ventriculoperitoneal shunt placement. 3. Status post prior hysterectomy and bilateral salpingo-oophorectomy through Pfannenstiel incision 4. S/p IR drainage 09/09/16 with removal of 20 cc pus and placement of a 10 Fr. pigtail catheter at [facility]. 5. Readmission [address] [facility] 09/15/16 with upsizing of drain to 12 Fr pigtail on (communication with colon demonstrated; no obvious free communication to rest of peritoneal space). Septic shock with multiorgan failure 09/21/2016 requiring ICU admission with intubation and pressors. 6. S/p a rather challenging sigmoid colectomy with performance of end colostomy (Reid's procedure), takedown of splenic flexure of the colon, lysis of adhesions (60 minutes), and abdominal lavage at [facility] on 09/21/16 7. Colon ischemia (distal transverse colon and descending colon) 8. S/p reentry through recent laparotomy incision with exploration of abdominal cavity, takedown of colostomy, completion left hemicolectomy with resection of distal transverse colon, lysis of adhesions, abdominal lavage, performance of an end colostomy [facility] 09/24/16 Subjective: Pulmonary decompensation last night. Lethargic and not communicative. Events noted. Objective: Vitals: See below I's & O's: See below Exam: GENERAL: On exam, the patient was lying in bed and appeared to be breathing shallow and tachypneic. No obvious acute distress. ABDOMEN: Soft, nontender and nondistended. Incision dressings are clean, dry and intact without any obvious evidence of underlying erythema, edema, discharge , or hernia. Surgical drain ss without any evidence of enteric contents. There are no peritoneal signs or guarding. Ostomy appears to be viable and productive with stool and air in the bag. SKIN: Skin appears to be pink and feels warm to touch. NEUROLOGIC: Patient appears to be awake, alert, and follows simple commands. Voice is stronger and able to state more complete sentences. Labs: See below Exam/Review of Systems Vital Signs Vitals Vital Signs Date Time Temp Pulse Resp B/P Pulse Ox O2 Delivery O2 Flow Rate FiO2 10/06/16 12:00 124 10/06/16 12:00 42 100 70 10/06/16 10:15 107/88 BIPAP 10/06/16 08:00 99.0 10/06/16 05:00 2.0 Intake and Output 10/05/16 10/05/16 10/06/16 15:00 23:00 07:00 Intake Total 1370 ml 980 ml 150 ml Output Total 1928 ml 1177 ml 2015 ml Balance -558 ml -197 ml -1865 ml Results Result Diagram: 10/06/16 0422 10/06/16 0400 ALEXSANDER DUARTE M.D. Oct 06, 2016 13:22
[2016-10-06] MEDS ORDERED: PROPOFOL 100 ML ONE (14:14)
[2016-10-06] MEDS: PROPOFOL 100 ML IV SCH (14:23)
--- NOTE | 2016-10-06 15:13 | RADRPT ---
PROCEDURE: XR Chest. CLINICAL INDICATION: Shortness of breath. Intubation TECHNIQUE: A single portable view of the chest was obtained. COMPARISON: 10/05/2016 FINDINGS: An endotracheal tube is seen above the level of the zana in satisfactory position. A nasogastric tube seen in the gastric lumen. A right PICC line is also seen once again with the tip in the atria l caval junction. A second catheter is seen projecting over the right hemithorax, the location of w hich is indeterminate. The cardiomediastinal silhouette is within normal limits. The diffuse pulmona ry vascular congestion and possible underlying pulmonary edema has decreased. Left basilar air space disease is seen with probable left pleural effusion which appears improved. Right costophrenic erick nting is seen once again with a pigtail catheter in the right pleural space again noted. The soft t issues and osseous structures are unchanged. IMPRESSION: 1. Improvement in the diffuse pulmonary vascular congestion and possible underlying pulmonary edema . 2. Improving left pleural effusion and left basilar air space disease. RPTAT: HPNM Physician Joo Date Time Electronically viewed and signed by Physician Joo on 10/06/2016 15:13 /
[2016-10-06 15:47] LABS: AADO2 Arterial 271.6 mmHg (7.0-24.0); Allen Test ACCEPTAB; Arterial Base Excess 11.7 mmol/L (-3.0-3); Arterial COHb 0.3 % (0.0-3.0); Arterial Fraction of Oxyhgb 96.6 % (93.0-99.0); Arterial HCO3 35.8 mmol/L (22.0-26.0); Arterial MetHb 0.6 % (0.0-1.5); Arterial Total Hemglobin 8.5 g/dl (12.0-18.0); MODE VENT - AC
[2016-10-06] MEDS: VANCOMYCIN 1.25 GM in SOD CHLORIDE 0.9% 250 ML IVPB SCH (16:09)
--- NOTE | 2016-10-06 17:22 | CONS ---
Date/Time of Note Date/Time of Note DATE: 10/06/16 TIME: 17:06 Assessment/Plan Assessment/Plan Chief Complaint/Hosp Course ID PROGRESS NOTE TOTAL ABX DAY # => VANCO IV + MERREM + FLAGYL #7+ Cancidas #7 => HOSPITAL EVENTS: * s/p 09/21/16 Sigmoid colectomy with performance of end colostomy (Reid's procedure), w/Lysis of adhesions. * s/p 09/21/16 Externalization of [employer] shunt. INDICATION: Possible [employer] shunt infection, ABD abscess * Extubated 10/03 * RE-intubated 09/29 * s/p Left THORA 10/01 * Extubated 10/03 * Re-Intubated 10/06 24H INTERVAL SUMMARY * Back on pressors with worsening respiratory status failed BIPAP and now re- intubated. * No fevers, WBC rising today after steady downtrend 19.4--> 18.4--> 17.7--> 15.0 --> 10.6 Normalized (10/05)--> 15.8 (10/06) * 10/06 CXR: 1. Improvement in the diffuse pulmonary vascular congestion and possible underlying pulmonary edema.2. Improving left pleural effusion and left basilar air space disease. * Sputum from ETT grew contaminate fungus EXAM: 70 yo F -> awake, follows commands, VSS, no fevers, generalized weakness HEENT: Off Vent w/supplemental O2 Neck: trachea midline. Heart: S1, S2 CXT: chest rise symmetrical breath sounds clear, diminished basis. 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 s/p Sepsis w/shock , s/p lactic acidosis => Back on pressors 10/06/16 * (+)Leukocytosis => WBC up today after normalized 10/05/16 2. s/p Perforated sigmoid colon w/abscess: POD#-> s/p 09/21/16 Sigmoid colectomy with performance of end colostomy (Reid's procedure), w/Lysis of adhesions. * MICRO: 09/23/16 BODY FLUID CULTURE Final Organism 1 ENTEROCOCCUS SPECIES Organism 2 COAGULASE NEGATIVE STAPH Organism 3 ALPHA HEMOLYTIC STREP SPP . VIRIDANS GROUP 4. ABD WOUND => (+)VAC 5. Acute respiratory failure -> orally RE-intubated 10/06 6. CHF w/elevated BNP => (+)Anasarca w/Pleural effusions s/p CT drain 09/30 7. HCAP => RESOLVING * Sputum from ETT grew yeast/fungus => CONTAMINANT * CT 09/30 THORA BODY FLUID CULTURE no growth * AFB SMEAR (-) x 2 Final ACID FAST BACILLI NONE SEEN 8. Pancytopenia - sepsis 9. Coagulopathy w/thrombocytopenia 10. (+)Troponin elevation likely type II in the setting of septic shock. Echo from 09/18 showed normal EF and no significant valvular disease. 11. POD # ->S/P 09/21/16 Externalization of [employer] shunt. INDICATION: Possible [employer] shunt infection, hx of Hydrocephalus, [employer] shunt, abdominal abscess (-)MRSA Nares screen INVASIVES: PICC (09/25/16) , ETT, NGT, VPS, FC, intra-abdominal drainage catheters ABX ALLERGY: PCN CURRENT ABX: # => VANCO IV + MERREM + FLAGYL #7 + Cancidas #7 ID RECOMMENDATIONS NOTE: Sputum from ETT grew fungus == consistent with contaminant 1. Continue current broad spectrum IV ABX coverage -- Per Dr. Maldonado's note appreciated, continue aggressive care 2. For T>101.0 -> repeat BCx, UA C&S, ABD wound Cx next dsg change, stool for C.Diff, sputum for C&S if she can produce. . . . Problems: Consultation Date/Type/Reason Admit Date/Time Sep 15, 2016 at 21:35 Initial Consult Date 09/21/16 Type of Consultation: ID Exam/Review of Systems Vital Signs Vitals Vital Signs Date Time Temp Pulse Resp B/P Pulse Ox O2 Delivery O2 Flow Rate FiO2 10/06/16 16:49 86 16 99 50 10/06/16 16:00 98.5 102/59 Mechanical Ventilator 10/06/16 05:00 2.0 Intake and Output 10/05/16 10/05/16 10/06/16 15:00 23:00 07:00 Intake Total 1370 ml 980 ml 150 ml Output Total 1928 ml 1177 ml 2015 ml Balance -558 ml -197 ml -1865 ml Results Result Diagram: 10/06/16 0422 10/06/16 0400 Results 24 hrs Laboratory Tests Test 10/05/16 23:24 10/06/16 04:00 10/06/16 04:22 10/06/16 07:00 Blood Gas Specimen Source Blood arterial Blood arterial Arterial Blood Date Drawn 10/05/2016 11:50:02 AM 10/06/2016 8:10:29 AM Arterial Blood pH (Temp corrected) 7.532 H 7.646 *H Arterial Blood pCO2 (Temp correct) 47.7 H 30.3 L Arterial Blood pO2 (Temp corrected) 133.1 H 166.1 H Arterial Blood HCO3 39.1 H 34.2 H Arterial Blood Base Excess 14.9 H 10.7 H Arterial Blood Oxygen Saturation 98.1 98.7 Cain Test ACCEPTAB ACCEPTAB Arterial Blood Gas Puncture Site Right Radial Right Radial Arterial Blood Carboxyhemoglobin 0.3 0.3 Arterial Blood Methemoglobin 0.6 0.5 Blood Gas A-a O2 Differential 532.2 H 531.7 H Oxyhemoglobin Percent 97.2 97.9 Total Hemoglobin 9.6 L 9.8 L Blood Gas Temperature 37.0 30.0 Blood Gas Actual Respiration Rate 38 46 Blood Gas Modality MASK - NRB MASK - BIPAP FiO2 100.0 100.0 Blood Gas Notified Whom SUMI HOWE RT Blood Gas Notified Time 10/06/2016 12:01:30 AM 10/06/2016 8:14:13 AM Prothrombin Time 18.0 H Prothrombin Time Ratio 1.4 INR International Normalized Ratio 1.48 Activated Partial Thromboplast Time 31.7 Sodium Level 145 H Potassium Level 3.4 L Chloride Level 94 L Carbon Dioxide Level 40 H Anion Gap 14 Blood Urea Nitrogen 24 H Creatinine 0.74 Glucose Level 106 Calcium Level 7.4 L Phosphorus Level 5.1 H Magnesium Level 1.9 Total Bilirubin 0.4 Direct Bilirubin 0.00 Indirect Bilirubin 0.4 Aspartate Amino Transf (AST/SGOT) 19 Alanine Aminotransferase (ALT/SGPT) 36 Alkaline Phosphatase 236 H B-Type Natriuretic Peptide 92732 H Total Protein 5.3 #L Albumin 2.2 L Globulin 3.10 Albumin/Globulin Ratio 0.70 White Blood Count 15.8 #H Red Blood Count 3.06 L Hemoglobin 8.3 L Hematocrit 25.9 L Mean Corpuscular Volume 84.6 Mean Corpuscular Hemoglobin 27.1 L Mean Corpuscular Hemoglobin Concent 32.0 Red Cell Distribution Width 22.8 H Platelet Count 298 # Mean Platelet Volume 11.7 H Neutrophils % 89.8 H Lymphocytes % 2.3 L Monocytes % 6.8 Eosinophils % 0.0 Basophils % 0.3 Nucleated Red Blood Cells % 0.0 Neutrophils # 14.1 H Lymphocytes # 0.4 L Monocytes # 1.1 H Eosinophils # 0.0 Basophils # 0.1 Nucleated Red Blood Cells # 0.0 Blood Gas Respiration Rate 18.0 Blood Gas Pressure Support 10 Blood Gas IPAP/EPAP Ratio 15/5 Blood Gas Critical Value Read Back ONEYDA SOTO Test 10/06/16 15:00 Blood Gas Specimen Source Blood arterial Arterial Blood Date Drawn 10/06/2016 3:37:12 PM Arterial Blood pH (Temp corrected) 7.516 H Arterial Blood pCO2 (Temp correct) 45.3 H Arterial Blood pO2 (Temp corrected) 106.4 H Arterial Blood HCO3 35.8 H Arterial Blood Base Excess 11.7 H Arterial Blood Oxygen Saturation 97.5 Cain Test ACCEPTAB Arterial Blood Gas Puncture Site Right Radial Arterial Blood Carboxyhemoglobin 0.3 Arterial Blood Methemoglobin 0.6 Blood Gas A-a O2 Differential 271.6 H Oxyhemoglobin Percent 96.6 Total Hemoglobin 8.5 L Blood Gas Temperature 37.0 Blood Gas Respiration Rate 16.0 Blood Gas Modality VENT - AC FiO2 60.0 Blood Gas Tidal Volume 450.0 Blood Gas Low PEEP Setting 5.0 Blood Gas Notified Whom BT Blood Gas Notified Time 10/06/2016 3:47:09 PM Medications Medications Current Medications Morphine Sulfate (morphine) 2 mg Q4H PRN IV PAIN Last administered on 08:39; Admin Dose 2 MG; Start 09/15/16 at 23:30 Ondansetron HCl (Zofran Inj) 4 mg Q6H PRN IV NAUSEA AND/OR VOMITING Last administered on 09/26/16 09:23; Admin Dose 4 MG; Start 09/16/16 at 00:30 Acetaminophen (Tylenol Tab) 650 mg Q6H PRN PO PAIN LEVEL 1-3 OR FEVER Last administered on 10/04/16 02:10; Admin Dose 650 MG; Start 09/16/16 at 00:30 Polyethylene Glycol 17 gm 17 gm DAILY PO Last administered on 10/03/16 09:28; Admin Dose 17 GM; Start 09/20/16 at 11:00 Meropenem/Sodium Chloride 50 ml @ 200 mls/hr Q8 IVPB Last administered on 10/06 14:51; Admin Dose 200 MLS/HR; Start 09/20/16 at 22:00 Norepinephrine/ Dextrose (Levophed/D5W) 500 ml @ 1.87 mls/hr TITRATE IV Last administered on 10/01/16 14:05; Admin Dose 3.75 MLS/HR; Start 09/21/16 at 09:00 Acetaminophen/ Hydrocodone Bitart ([place] (5/325)) 1 tab Q4H PRN PO PAIN LEVEL 4 -7 Last administered on 09/28/16 21:20; Admin Dose 1 TAB; Start 09/21/16 at 15: 00 Acetaminophen/ Hydrocodone Bitart ([place] (5/325)) 2 tab Q4H PRN PO PAIN LEVEL 7 -10; Start 09/21/16 at 15:00 Hydromorphone HCl (Dilaudid) 0.5 mg Q2H PRN IV PAIN Last administered on 16:41; Admin Dose 0.5 MG; Start 09/21/16 at 15:00 Hydromorphone HCl (Dilaudid) 1 mg Q2H PRN IV PAIN Last administered on 09:12; Admin Dose 1 MG; Start 09/21/16 at 15:00 Docusate Sodium (Colace) 100 mg BID PRN PO CONSTIPATION; Start 09/21/16 at 15: 00 Enoxaparin Sodium (Lovenox) 40 mg DAILY SC ; Start 09/22/16 at 09:00; Status Future Hold Docusate Sodium (Colace Liquid Cup) 100 mg BID NGT Last administered on 21:53; Admin Dose 100 MG; Start 09/22/16 at 21:00 Pantoprazole (Protonix Iv) 40 mg DAILY@06 IV Last administered on 10/06/16 05: 04; Admin Dose 40 MG; Start 09/26/16 at 06:00 IV Flush (NS 10 ml) 10 ml PRN PRN IV IV PROTOCOL; Start 09/25/16 at 12:00 Spironolactone 50 mg 50 mg DAILY NGT Last administered on 10/05/16 08:47; Admin Dose 50 MG; Start 09/28/16 at 09:00 Dopamine HCl/ Dextrose 250 ml @ 6.053 mls/ hr TITRATE IV Last administered on 09/30/16 04:46; Admin Dose 6.053 MLS/HR; Start 09/29/16 at 11:00 Phenylephrine HCl 40 mg/Dextrose 500 ml @ 75 mls/hr TITRATE IV ; Start at 14:00 Caspofungin 50 mg/ Sodium Chloride 250 ml @ 250 mls/hr Q24H IVPB Last administered on 10/06/16 11:52; Admin Dose 250 MLS/HR; Start 10/01/16 at 12:00 Metronidazole 100 ml @ 100 mls/hr Q8 IVPB Last administered on 10/06/16 13:41 ; Admin Dose 100 MLS/HR; Start 09/30/16 at 14:00 Vancomycin HCl/ Sodium Chloride (Vancocin/NS) 250 ml @ 83.333 mls/ hr Q36H IVPB Last administered on 10/06/16 16:09; Admin Dose 83.333 MLS/HR; Start at 16:00 Furosemide (Lasix) 20 mg Q6 IV Last administered on 10/06/16 14:51; Admin Dose 20 MG; Start 10/05/16 at 13:00 Lorazepam 0.5 mg 0.5 mg Q6H PRN IV AGITATION/ANXIETY Last administered on 23:21; Admin Dose 0.5 MG; Start 10/05/16 at 23:00 Propofol (Diprivan) 100 ml @ 2.421 mls/ hr Q12H IV Last administered on 14:23; Admin Dose 2.421 MLS/HR; Start 10/06/16 at 14:30 DONNA HERNANDEZ NP Oct 06, 2016 17:16
--- NOTE | 2016-10-06 19:49 | PN ---
Date/Time of Note Date/Time of Note DATE: 10/06/16 TIME: 19:49 Assessment/Plan VTE Prophylaxis VTE Prophylaxis Intervention: SCD's Lines/Catheters IV Catheter Type (from Nrs): PICC Line Central line still needed: Yes Urinary Cath still in place: Yes Reason Cath still needed: other (indicate) Assessment/Plan Assessment/Plan 1. Sigmoid colon abscess, likely a complication of diverticulitis - s/p sigmoid colectomy with end colostomy (Reid's procedure) and adhesiolysis on 09/21/16 - continue antibiotics. Follow-up surgery recommendation. ID is on board. 2. Status post septic shock -Continue antibiotics and IV fluid. -Pressors as needed. 3. Ventilator dependent respiratory failure: Status post re-extubation few days ago. - Was tachypenic this am and was given ativan and lasix. She then had respiratory distress and was placed on BIPAP. Currently on NRM - Management per pulmonary. 4. Left pleural effusion: Status post thoracentesis, complicated with pneumothorax status post placement of a chest tube. 4. History of ICH, s/p ventriculoperitoneal shunt placement: Neurosurg on board 5. Paroxysmal A. fib: Now in sinus rhythm status post amiodarone and dopamine. Cardiology on board, appreciate recommendation 6. Acute renal insufficiency: Resolved. Appreciate nephrology input. 7. s/p NSTEMI: Likely secondary to septic shock. Cardiology on board. 8. Volume overload state: Continue diuresis. Patient still has bilateral lower extremity pitting edema. 9. Anemia, likely a combination of iron deficiency and anemia of chronic disease: Previous notes mention iron replacement. Given patient is extubated, will start her on ferrous sulfate once she passes swallow evaluation. She did fail swallow evaluation yesterday. will consider blood transfusion 10. Hypokalemia: Replete 11. Dysphagia: Patient had failed swallow evaluation yesterday NG tube. Subjective 24 Hr Interval Summary Free Text/Dictation On non-rebreather mask. Was tachypenic this am and was given ativan and lasix. She then had respiratory distress and was placed on BIPAP. Currently on NRM Exam/Review of Systems Vital Signs Vitals Vital Signs Date Time Temp Pulse Resp B/P Pulse Ox O2 Delivery O2 Flow Rate FiO2 10/06/16 18:45 115 27 90/74 96 Mechanical Ventilator 10/06/16 17:45 40 10/06/16 16:00 98.5 10/06/16 05:00 2.0 Intake and Output 10/05/16 10/05/16 10/06/16 15:00 23:00 07:00 Intake Total 1370 ml 980 ml 150 ml Output Total 1928 ml 1177 ml 2015 ml Balance -558 ml -197 ml -1865 ml Exam Constitutional: other (Patient is awake and that she follows commands however she appears lethargic.) Head: atraumatic, normocephalic Eyes: PERRL Respiratory: diminished breath sounds, other (There is a shunt in the left upper chest.) Cardiovascular: other (Tachycardic with regular rhythm) Gastrointestinal: other (Colostomy bag in place with brownish to liquid output. ), soft Extremities: edema Results Result Diagram: 10/06/16 0422 10/06/16 0400 Results 24 hrs Laboratory Tests Test 10/05/16 23:24 10/06/16 04:00 10/06/16 04:22 10/06/16 07:00 Blood Gas Specimen Source Blood arterial Blood arterial Arterial Blood Date Drawn 10/05/2016 11:50:02 AM 10/06/2016 8:10:29 AM Arterial Blood pH (Temp corrected) 7.532 H 7.646 *H Arterial Blood pCO2 (Temp correct) 47.7 H 30.3 L Arterial Blood pO2 (Temp corrected) 133.1 H 166.1 H Arterial Blood HCO3 39.1 H 34.2 H Arterial Blood Base Excess 14.9 H 10.7 H Arterial Blood Oxygen Saturation 98.1 98.7 Cain Test ACCEPTAB ACCEPTAB Arterial Blood Gas Puncture Site Right Radial Right Radial Arterial Blood Carboxyhemoglobin 0.3 0.3 Arterial Blood Methemoglobin 0.6 0.5 Blood Gas A-a O2 Differential 532.2 H 531.7 H Oxyhemoglobin Percent 97.2 97.9 Total Hemoglobin 9.6 L 9.8 L Blood Gas Temperature 37.0 30.0 Blood Gas Actual Respiration Rate 38 46 Blood Gas Modality MASK - NRB MASK - BIPAP FiO2 100.0 100.0 Blood Gas Notified Whom SUMI HOWE RT Blood Gas Notified Time 10/06/2016 12:01:30 AM 10/06/2016 8:14:13 AM Prothrombin Time 18.0 H Prothrombin Time Ratio 1.4 INR International Normalized Ratio 1.48 Activated Partial Thromboplast Time 31.7 Sodium Level 145 H Potassium Level 3.4 L Chloride Level 94 L Carbon Dioxide Level 40 H Anion Gap 14 Blood Urea Nitrogen 24 H Creatinine 0.74 Glucose Level 106 Calcium Level 7.4 L Phosphorus Level 5.1 H Magnesium Level 1.9 Total Bilirubin 0.4 Direct Bilirubin 0.00 Indirect Bilirubin 0.4 Aspartate Amino Transf (AST/SGOT) 19 Alanine Aminotransferase (ALT/SGPT) 36 Alkaline Phosphatase 236 H B-Type Natriuretic Peptide 76198 H Total Protein 5.3 #L Albumin 2.2 L Globulin 3.10 Albumin/Globulin Ratio 0.70 White Blood Count 15.8 #H Red Blood Count 3.06 L Hemoglobin 8.3 L Hematocrit 25.9 L Mean Corpuscular Volume 84.6 Mean Corpuscular Hemoglobin 27.1 L Mean Corpuscular Hemoglobin Concent 32.0 Red Cell Distribution Width 22.8 H Platelet Count 298 # Mean Platelet Volume 11.7 H Neutrophils % 89.8 H Lymphocytes % 2.3 L Monocytes % 6.8 Eosinophils % 0.0 Basophils % 0.3 Nucleated Red Blood Cells % 0.0 Neutrophils # 14.1 H Lymphocytes # 0.4 L Monocytes # 1.1 H Eosinophils # 0.0 Basophils # 0.1 Nucleated Red Blood Cells # 0.0 Blood Gas Respiration Rate 18.0 Blood Gas Pressure Support 10 Blood Gas IPAP/EPAP Ratio 15/5 Blood Gas Critical Value Read Back IRENEA CHARLES Test 10/06/16 15:00 Blood Gas Specimen Source Blood arterial Arterial Blood Date Drawn 10/06/2016 3:37:12 PM Arterial Blood pH (Temp corrected) 7.516 H Arterial Blood pCO2 (Temp correct) 45.3 H Arterial Blood pO2 (Temp corrected) 106.4 H Arterial Blood HCO3 35.8 H Arterial Blood Base Excess 11.7 H Arterial Blood Oxygen Saturation 97.5 Cain Test ACCEPTAB Arterial Blood Gas Puncture Site Right Radial Arterial Blood Carboxyhemoglobin 0.3 Arterial Blood Methemoglobin 0.6 Blood Gas A-a O2 Differential 271.6 H Oxyhemoglobin Percent 96.6 Total Hemoglobin 8.5 L Blood Gas Temperature 37.0 Blood Gas Respiration Rate 16.0 Blood Gas Modality VENT - AC FiO2 60.0 Blood Gas Tidal Volume 450.0 Blood Gas Low PEEP Setting 5.0 Blood Gas Notified Whom BT Blood Gas Notified Time 10/06/2016 3:47:09 PM Medications Medications Current Medications Morphine Sulfate (morphine) 2 mg Q4H PRN IV PAIN Last administered on 08:39; Admin Dose 2 MG; Start 09/15/16 at 23:30 Ondansetron HCl (Zofran Inj) 4 mg Q6H PRN IV NAUSEA AND/OR VOMITING Last administered on 09/26/16 09:23; Admin Dose 4 MG; Start 09/16/16 at 00:30 Acetaminophen (Tylenol Tab) 650 mg Q6H PRN PO PAIN LEVEL 1-3 OR FEVER Last administered on 10/04/16 02:10; Admin Dose 650 MG; Start 09/16/16 at 00:30 Polyethylene Glycol 17 gm 17 gm DAILY PO Last administered on 10/03/16 09:28; Admin Dose 17 GM; Start 09/20/16 at 11:00 Meropenem/Sodium Chloride 50 ml @ 200 mls/hr Q8 IVPB Last administered on 10/06 14:51; Admin Dose 200 MLS/HR; Start 09/20/16 at 22:00 Norepinephrine/ Dextrose (Levophed/D5W) 500 ml @ 1.87 mls/hr TITRATE IV Last administered on 10/01/16 14:05; Admin Dose 3.75 MLS/HR; Start 09/21/16 at 09:00 Acetaminophen/ Hydrocodone Bitart ([place] (5/325)) 1 tab Q4H PRN PO PAIN LEVEL 4 -7 Last administered on 09/28/16 21:20; Admin Dose 1 TAB; Start 09/21/16 at 15: 00 Acetaminophen/ Hydrocodone Bitart ([place] (5/325)) 2 tab Q4H PRN PO PAIN LEVEL 7 -10; Start 09/21/16 at 15:00 Hydromorphone HCl (Dilaudid) 0.5 mg Q2H PRN IV PAIN Last administered on 16:41; Admin Dose 0.5 MG; Start 09/21/16 at 15:00 Hydromorphone HCl (Dilaudid) 1 mg Q2H PRN IV PAIN Last administered on 09:12; Admin Dose 1 MG; Start 09/21/16 at 15:00 Docusate Sodium (Colace) 100 mg BID PRN PO CONSTIPATION; Start 09/21/16 at 15: 00 Enoxaparin Sodium (Lovenox) 40 mg DAILY SC ; Start 09/22/16 at 09:00; Status Future Hold Docusate Sodium (Colace Liquid Cup) 100 mg BID NGT Last administered on 21:53; Admin Dose 100 MG; Start 09/22/16 at 21:00 Pantoprazole (Protonix Iv) 40 mg DAILY@06 IV Last administered on 10/06/16 05: 04; Admin Dose 40 MG; Start 09/26/16 at 06:00 IV Flush (NS 10 ml) 10 ml PRN PRN IV IV PROTOCOL; Start 09/25/16 at 12:00 Spironolactone 50 mg 50 mg DAILY NGT Last administered on 10/05/16 08:47; Admin Dose 50 MG; Start 09/28/16 at 09:00 Dopamine HCl/ Dextrose 250 ml @ 6.053 mls/ hr TITRATE IV Last administered on 09/30/16 04:46; Admin Dose 6.053 MLS/HR; Start 09/29/16 at 11:00 Phenylephrine HCl 40 mg/Dextrose 500 ml @ 75 mls/hr TITRATE IV ; Start at 14:00 Caspofungin 50 mg/ Sodium Chloride 250 ml @ 250 mls/hr Q24H IVPB Last administered on 10/06/16 11:52; Admin Dose 250 MLS/HR; Start 10/01/16 at 12:00 Metronidazole 100 ml @ 100 mls/hr Q8 IVPB Last administered on 10/06/16 13:41 ; Admin Dose 100 MLS/HR; Start 09/30/16 at 14:00 Vancomycin HCl/ Sodium Chloride (Vancocin/NS) 250 ml @ 83.333 mls/ hr Q36H IVPB Last administered on 10/06/16 16:09; Admin Dose 83.333 MLS/HR; Start at 16:00 Furosemide (Lasix) 20 mg Q6 IV Last administered on 10/06/16 18:45; Admin Dose 20 MG; Start 10/05/16 at 13:00 Lorazepam 0.5 mg 0.5 mg Q6H PRN IV AGITATION/ANXIETY Last administered on 23:21; Admin Dose 0.5 MG; Start 10/05/16 at 23:00 Propofol (Diprivan) 100 ml @ 2.421 mls/ hr Q12H IV Last administered on 14:23; Admin Dose 2.421 MLS/HR; Start 10/06/16 at 14:30 CORTNEY KANG MD Oct 06, 2016 19:49
[2016-10-06] MEDS: ALBUTEROL 18 GM INHALER INH SCH (21:58)
[2016-10-06] MEDS: IPRATROPIUM (HFA) 12.9 GM INHALER INH SCH (21:58)
[2016-10-06] MEDS: HYDROmorphONE 1 MG/ML SYG IV PRN (23:57)
[2016-10-07] VITALS (96 sets, daily range): BP systolic 81–157; BP diastolic 44–83; PULSE 76–129; RESP 12–67
[2016-10-07] MEDS: IPRATROPIUM (HFA) 12.9 GM INHALER INH SCH ×6 (01:18→20:41)
[2016-10-07] MEDS: ACETYLCYSTEINE 20% 4 ML VIAL NEB SCH ×6 (01:18→20:41)
[2016-10-07] MEDS: ALBUTEROL 18 GM INHALER INH SCH ×6 (01:18→20:41)
[2016-10-07] MEDS: FUROSEMIDE 20 MG INJ IV SCH ×4 (02:18→18:13)
--- NOTE | 2016-10-07 06:05 | RADRPT ---
PROCEDURE: XR Chest. CLINICAL INDICATION: Congestion TECHNIQUE: An AP view of the chest was obtained. COMPARISON: Chest x-ray dated 10/06/2016 FINDINGS: The endotracheal tube tip is approximately 3.3 cm above the zana. The tip of the enteric tube ex tends below the left diaphragm. There is a right upper extremity PICC line with tip near the cavoatr ial junction. A right pleural pigtail catheter is in place. There is prominence of the interstitial markings. There is obscuration of the left diaphragm. No pl eural effusion or pneumothorax is seen. The cardiomediastinal silhouette is within normal limits fo r size. Calcifications are seen within the aortic arch. The osseous structures demonstrate senescen t changes. IMPRESSION: 1. Mild prominence of the interstitial markings, may reflect mild underlying interstitial edema or chronic lung changes. There is mild improved aeration of the lungs when compared to the prior examin ation. 2. Left lower lobe atelectasis versus pneumonia, also mildly improved. 3. Aortic atherosclerosis. 4. Tubes and lines, as described above. RPTAT: HH .Vilma Leiva MD, MD Date Time Electronically viewed and signed by .Vilma Leiva MD, MD on 10/07/2016 06:04 .G/
[2016-10-07] MEDS: MEROPENEM 500MG/50 ML (PMX) 50 ML IVPB SCH (06:15)
[2016-10-07 06:18] LABS: ABNORMAL IP MESSAGE 1; BASOPHIL # 0.1 10^3/ul (0.0-0.1); BASOPHILS % 0.4 % (0.0-2.0); EOSINOPHILS % 0.3 % (0.0-7.0); HEMATOCRIT 22.7 % (37.0-47.0); HEMOGLOBIN 7.3 g/dl (12.0-16.0); LYMPHOCYTES # 0.9 10^3/ul (0.8-2.9); LYMPHOCYTES % 6.1 % (15.0-51.0); MEAN CORPUSCULAR HEMOGLOBIN 27.5 pg (29.0-33.0); MEAN CORPUSCULAR HGB CONC 32.2 g/dl (32.0-37.0); MEAN CORPUSCULAR VOLUME 85.7 fl (82.0-101.0); MEAN PLATELET VOLUME 11.4 fl (7.4-10.4); MONOCYTE # 0.4 10^3/ul (0.3-0.9); MONOCYTES % 2.6 % (0.0-11.0); NEUTROPHIL # 12.9 10^3/ul (1.6-7.5); PLATELET COUNT 269 10^3/UL (140-415); RED BLOOD COUNT 2.65 10^6/ul (4.20-5.40); RED CELL DISTRIBUTION WIDTH 22.6 % (11.5-14.5); WHITE BLOOD COUNT 14.4 10^3/ul (4.8-10.8)
[2016-10-07] MEDS: PANTOPRAZOLE 40 MG INJ IV SCH (06:21)
[2016-10-07] MEDS: metroNIDAZOLE 500 MG/NS (PMX) 100 ML IVPB SCH (06:21)
[2016-10-07] MEDS: PROPOFOL 100 ML IV SCH ×2 (06:24→18:06)
[2016-10-07 06:25] LABS: POSITIVE DIFF @See below
[2016-10-07 07:05] LABS: PHOSPHORUS 4.8 mg/dl (2.5-4.9)
[2016-10-07 07:06] LABS: ALBUMIN 2.4 g/dl (3.3-4.9); ALBUMIN/GLOBULIN RATIO 0.7; BILIRUBIN,INDIRECT 0.2 mg/dl (0-1.1); BILIRUBIN,TOTAL 0.2 mg/dl (0.2-1.3); CALCIUM 7.5 mg/dl (8.4-10.2); CREATININE 1.07 mg/dl (0.44-1.00); TOTAL PROTEIN 5.8 g/dl (6.1-8.1)
[2016-10-07 07:09] LABS: POTASSIUM 2.9 mmol/L (3.5-5.1)
[2016-10-07 07:28] LABS: AADO2 Arterial 150.7 mmHg (7.0-24.0); Allen Test ACCEPTAB; Arterial Base Excess 12.3 mmol/L (-3.0-3); Arterial COHb 0.3 % (0.0-3.0); Arterial Fraction of Oxyhgb 95.3 % (93.0-99.0); Arterial HCO3 35.5 mmol/L (22.0-26.0); Arterial MetHb 0.9 % (0.0-1.5); Arterial Total Hemglobin 7.5 g/dl (12.0-18.0); MODE VENT - AC
--- NOTE | 2016-10-07 07:28 | PN ---
Date/Time of Note Date/Time of Note DATE: 10/07/16 TIME: 07:25 Assessment/Plan VTE Prophylaxis VTE Prophylaxis Intervention: other Lines/Catheters IV Catheter Type (from Nrsg): PICC Line Central line still needed: Yes Urinary Cath still in place: Yes Reason Cath still needed: other (indicate) Assessment/Plan Chief Complaint/Hosp Course Nonoliguric acute kidney injury. Etiology secondary ATN -Renal function has declined the last 24 hours, secondary to hemodynamics, diuretics, sepsis continue current treatment plan renally dose meds avoid nephrotoxins Hypernatremia Increase free water flushes, Monitor serial sodium levels Hypokalemia secondary to diuretics Replete potassium chloride as needed Aldactone 50 mg daily Monitor closely Volume overload/anasarca secondary CHF, third spacing -Patient remains volume overloaded, worsening pulmonary edema Diuretics being adjusted by cardiology, will defer for management We will monitor electrolytes closely Monitor I's and O's closely Metabolic alkalosis, secondary to diuretic therapy, hypokalemia, hypochloremia ABG reviewed Would give Diamox intermittently with loop diuretics Monitor electrolytes closely, replete as needed Sepstic shock Patient patient on pressors Continue broad-spectrum antibiotics next, follow-up cultures Monitor closely Anemia Monitor H&H levels Mineral bone disorder Monitor calcium phosphorus levels Lactic acidosis secondary to shock -Continue to monitor 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 -Continue treatment plan -Follow-up with surgery Respiratory failure, secondary to CHF Patient on BiPAP Chest x-ray ABG reviewed Follow-up with pulmonary, cardiology Continue diuresis History of intracranial hemorrhage in the past status post ROLLWAY MAN shunt placement that has been stable over time -ROLLWAY MAN shunt was externalized during the surgery September 21, 2016 due to abdominal infection, per neurosurgical notes may need to be reconnected once patient stable versus removed Problems: Subjective 24 Hr Interval Summary Free Text/Dictation Patient remains critically ill on pressure support Patient was intubated overnight Urinary output has been adequate Exam/Review of Systems Vital Signs Vitals Vital Signs Date Time Temp Pulse Resp B/P Pulse Ox O2 Delivery O2 Flow Rate FiO2 10/07/16 06:45 101 19 99/51 96 10/07/16 06:00 Mechanical Ventilator 10/07/16 05:07 40 10/07/16 04:00 98.4 10/06/16 05:00 2.0 Intake and Output 10/06/16 10/06/1617 15:00 23:00 07:00 Intake Total 685.55 ml 389.891 ml 212.144 ml Output Total 1193 ml 1135 ml 750 ml Balance -507.45 ml -745.109 ml -537.856 ml Exam HEENT: Head is normocephalic, NECK: Supple. HEART: Irregular LUNGS: Show diminished breath sounds at base. ABDOMEN: Soft, nontender to palpation without rebound or guarding. EXTREMITIES: Negative for clubbing, cyanosis. DERMATOLOGIC: No rashes. MUSCULOSKELETAL: No joint effusions, NEUROLOGIC: No change in exam. Results Result Diagram: 10/07/16 0552 10/07/16 0552 Results 24 hrs Laboratory Tests Test 10/06/16 15:00 10/07/16 05:52 Blood Gas Specimen Source Blood arterial Arterial Blood Date Drawn 10/06/2016 3:37:12 PM Arterial Blood pH (Temp corrected) 7.516 H Arterial Blood pCO2 (Temp correct) 45.3 H Arterial Blood pO2 (Temp corrected) 106.4 H Arterial Blood HCO3 35.8 H Arterial Blood Base Excess 11.7 H Arterial Blood Oxygen Saturation 97.5 Cain Test ACCEPTAB Arterial Blood Gas Puncture Site Right Radial Arterial Blood Carboxyhemoglobin 0.3 Arterial Blood Methemoglobin 0.6 Blood Gas A-a O2 Differential 271.6 H Oxyhemoglobin Percent 96.6 Total Hemoglobin 8.5 L Blood Gas Temperature 37.0 Blood Gas Respiration Rate 16.0 Blood Gas Modality VENT - AC FiO2 60.0 Blood Gas Tidal Volume 450.0 Blood Gas Low PEEP Setting 5.0 Blood Gas Notified Whom BT Blood Gas Notified Time 10/06/2016 3:47:09 PM White Blood Count 14.4 H Red Blood Count 2.65 L Hemoglobin 7.3 L Hematocrit 22.7 L Mean Corpuscular Volume 85.7 Mean Corpuscular Hemoglobin 27.5 L Mean Corpuscular Hemoglobin Concent 32.2 Red Cell Distribution Width 22.6 H Platelet Count 269 Mean Platelet Volume 11.4 H Neutrophils % 90.0 H Lymphocytes % 6.1 L Monocytes % 2.6 Eosinophils % 0.3 Basophils % 0.4 Nucleated Red Blood Cells % 0.0 Neutrophils # 12.9 H Lymphocytes # 0.9 Monocytes # 0.4 Eosinophils # 0.0 Basophils # 0.1 Nucleated Red Blood Cells # 0.0 Sodium Level 147 H Potassium Level 2.9 *L Chloride Level 97 Carbon Dioxide Level 37 H Anion Gap 16 Blood Urea Nitrogen 25 H Creatinine 1.07 H Glucose Level 126 Calcium Level 7.5 L Phosphorus Level 4.8 Magnesium Level 2.0 Total Bilirubin 0.2 Direct Bilirubin 0.00 Indirect Bilirubin 0.2 Aspartate Amino Transf (AST/SGOT) 18 Alanine Aminotransferase (ALT/SGPT) 32 Alkaline Phosphatase 162 H Total Protein 5.8 L Albumin 2.4 L Globulin 3.40 H Albumin/Globulin Ratio 0.70 Medications Medications Current Medications Morphine Sulfate (morphine) 2 mg Q4H PRN IV PAIN Last administered on 08:39; Admin Dose 2 MG; Start 09/15/16 at 23:30 Ondansetron HCl (Zofran Inj) 4 mg Q6H PRN IV NAUSEA AND/OR VOMITING Last administered on 09/26/16 09:23; Admin Dose 4 MG; Start 09/16/16 at 00:30 Acetaminophen (Tylenol Tab) 650 mg Q6H PRN PO PAIN LEVEL 1-3 OR FEVER Last administered on 10/04/16 02:10; Admin Dose 650 MG; Start 09/16/16 at 00:30 Polyethylene Glycol 17 gm 17 gm DAILY PO Last administered on 10/03/16 09:28; Admin Dose 17 GM; Start 09/20/16 at 11:00 Meropenem/Sodium Chloride 50 ml @ 200 mls/hr Q8 IVPB Last administered on 10/07 06:15; Admin Dose 200 MLS/HR; Start 09/20/16 at 22:00 Norepinephrine/ Dextrose (Levophed/D5W) 500 ml @ 1.87 mls/hr TITRATE IV Last administered on 10/07/16 00:02; Admin Dose 18.75 MLS/HR; Start 09/21/16 at 09: 00 Acetaminophen/ Hydrocodone Bitart ([place] (5/325)) 1 tab Q4H PRN PO PAIN LEVEL 4 -7 Last administered on 09/28/16 21:20; Admin Dose 1 TAB; Start 09/21/16 at 15: 00 Acetaminophen/ Hydrocodone Bitart ([place] (5/325)) 2 tab Q4H PRN PO PAIN LEVEL 7 -10; Start 09/21/16 at 15:00 Hydromorphone HCl (Dilaudid) 0.5 mg Q2H PRN IV PAIN Last administered on 16:41; Admin Dose 0.5 MG; Start 09/21/16 at 15:00 Hydromorphone HCl (Dilaudid) 1 mg Q2H PRN IV PAIN Last administered on 23:57; Admin Dose 1 MG; Start 09/21/16 at 15:00 Docusate Sodium (Colace) 100 mg BID PRN PO CONSTIPATION; Start 09/21/16 at 15: 00 Enoxaparin Sodium (Lovenox) 40 mg DAILY SC ; Start 09/22/16 at 09:00; Status Future Hold Docusate Sodium (Colace Liquid Cup) 100 mg BID NGT Last administered on 21:53; Admin Dose 100 MG; Start 09/22/16 at 21:00 Pantoprazole (Protonix Iv) 40 mg DAILY@06 IV Last administered on 10/07/16 06: 21; Admin Dose 40 MG; Start 09/26/16 at 06:00 IV Flush (NS 10 ml) 10 ml PRN PRN IV IV PROTOCOL; Start 09/25/16 at 12:00 Spironolactone 50 mg 50 mg DAILY NGT Last administered on 10/05/16 08:47; Admin Dose 50 MG; Start 09/28/16 at 09:00 Dopamine HCl/ Dextrose 250 ml @ 6.053 mls/ hr TITRATE IV Last administered on 09/30/16 04:46; Admin Dose 6.053 MLS/HR; Start 09/29/16 at 11:00 Phenylephrine HCl 40 mg/Dextrose 500 ml @ 75 mls/hr TITRATE IV ; Start at 14:00 Caspofungin 50 mg/ Sodium Chloride 250 ml @ 250 mls/hr Q24H IVPB Last administered on 10/06/16 11:52; Admin Dose 250 MLS/HR; Start 10/01/16 at 12:00 Metronidazole 100 ml @ 100 mls/hr Q8 IVPB Last administered on 10/07/16 06:21 ; Admin Dose 100 MLS/HR; Start 09/30/16 at 14:00 Vancomycin HCl/ Sodium Chloride (Vancocin/NS) 250 ml @ 83.333 mls/ hr Q36H IVPB Last administered on 10/06/16 16:09; Admin Dose 83.333 MLS/HR; Start at 16:00 Furosemide (Lasix) 20 mg Q6 IV Last administered on 10/07/16 06:23; Admin Dose 20 MG; Start 10/05/16 at 13:00 Lorazepam 0.5 mg 0.5 mg Q6H PRN IV AGITATION/ANXIETY Last administered on 23:21; Admin Dose 0.5 MG; Start 10/05/16 at 23:00 Propofol (Diprivan) 100 ml @ 2.421 mls/ hr Q12H IV Last administered on 06:24; Admin Dose 7.263 MLS/HR; Start 10/06/16 at 14:30 KIRAN CASTILLO DO Oct 07, 2016 07:28
[2016-10-07 08:54] LABS: HYPOCHROMASIA 1+ (0-0)
[2016-10-07 08:55] LABS: POLYCHROMASIA 1+ (0-0); TARGET CELLS 1+ (0-0)
[2016-10-07] MEDS: SPIRONOLACTONE 50 MG TAB NGT SCH (09:18)
[2016-10-07] MEDS: ACETAMINOPHEN 325 MG TAB PO PRN (09:18)
[2016-10-07] MEDS: DOCUSATE SODIUM 10 MG/ML (10ML CUP) NGT SCH ×2 (09:19→21:08)
[2016-10-07] MEDS: POLYETHYLENE GLYCOL 17 GM PACKET PO SCH (09:19)
[2016-10-07] MEDS: POTASSIUM CHLORIDE 250 ML IVPB SCH ×2 (09:21→13:03)
--- NOTE | 2016-10-07 10:32 | CONS ---
Date/Time of Note Date/Time of Note DATE: 10/07/16 TIME: 10:30 Assessment/Plan Assessment/Plan Additional Assessment/Plan Required reintubation over the weekend, family at bedside. Plan.. Peg and Trach Consultation Date/Type/Reason Admit Date/Time Sep 15, 2016 at 21:35 Initial Consult Date 09/21/16 Type of Consultation: Palliative Care 24 HR Interval Summary Free Text/Dictation Acute respiratory failure reintubated times two Fluid and electrolyte abnormalities Sepsis syndrome Diverticulitis diverticular abscess Delirium Exam/Review of Systems Vital Signs Vitals Vital Signs Date Time Temp Pulse Resp B/P Pulse Ox O2 Delivery O2 Flow Rate FiO2 10/07/16 08:00 100 10/07/16 06:45 19 99/51 96 10/07/16 06:00 Mechanical Ventilator 10/07/16 05:07 40 10/07/16 04:00 98.4 10/06/16 05:00 2.0 Intake and Output 10/06/16 10/06/16 10/07/16 15:00 23:00 07:00 Intake Total 685.55 ml 389.891 ml 212.144 ml Output Total 1193 ml 1135 ml 750 ml Balance -507.45 ml -745.109 ml -537.856 ml Results Result Diagram: 10/07/16 0552 10/07/16 0552 Results 24 hrs Laboratory Tests Test 10/06/16 15:00 10/07/16 05:52 10/07/16 07:00 Blood Gas Specimen Source Blood arterial Blood arterial Arterial Blood Date Drawn 10/06/2016 3:37:12 PM 10/07/2016 7:10:24 AM Arterial Blood pH (Temp corrected) 7.516 H 7.565 *H Arterial Blood pCO2 (Temp correct) 45.3 H 40.1 Arterial Blood pO2 (Temp corrected) 106.4 H 88.4 Arterial Blood HCO3 35.8 H 35.5 H Arterial Blood Base Excess 11.7 H 12.3 H Arterial Blood Oxygen Saturation 97.5 96.5 Cain Test ACCEPTAB ACCEPTAB Arterial Blood Gas Puncture Site Right Radial Left Radial Arterial Blood Carboxyhemoglobin 0.3 0.3 Arterial Blood Methemoglobin 0.6 0.9 Blood Gas A-a O2 Differential 271.6 H 150.7 H Oxyhemoglobin Percent 96.6 95.3 Total Hemoglobin 8.5 L 7.5 L Blood Gas Temperature 37.0 37.0 Blood Gas Respiration Rate 16.0 12.0 Blood Gas Modality VENT - AC VENT - AC FiO2 60.0 40.0 Blood Gas Tidal Volume 450.0 500.0 Blood Gas Low PEEP Setting 5.0 5.0 Blood Gas Notified Whom MELBA ALLEN Blood Gas Notified Time 10/06/2016 3:47:09 PM 10/07/2016 7:27:39 AM White Blood Count 14.4 H Red Blood Count 2.65 L Hemoglobin 7.3 L Hematocrit 22.7 L Mean Corpuscular Volume 85.7 Mean Corpuscular Hemoglobin 27.5 L Mean Corpuscular Hemoglobin Concent 32.2 Red Cell Distribution Width 22.6 H Platelet Count 269 Mean Platelet Volume 11.4 H Neutrophils % 90.0 H Lymphocytes % 6.1 L Monocytes % 2.6 Eosinophils % 0.3 Basophils % 0.4 Nucleated Red Blood Cells % 0.0 Neutrophils # 12.9 H Lymphocytes # 0.9 Monocytes # 0.4 Eosinophils # 0.0 Basophils # 0.1 Nucleated Red Blood Cells # 0.0 Polychromasia 1+ Hypochromasia 1+ Target Cells 1+ Sodium Level 147 H Potassium Level 2.9 *L Chloride Level 97 Carbon Dioxide Level 37 H Anion Gap 16 Blood Urea Nitrogen 25 H Creatinine 1.07 H Glucose Level 126 Calcium Level 7.5 L Phosphorus Level 4.8 Magnesium Level 2.0 Total Bilirubin 0.2 Direct Bilirubin 0.00 Indirect Bilirubin 0.2 Aspartate Amino Transf (AST/SGOT) 18 Alanine Aminotransferase (ALT/SGPT) 32 Alkaline Phosphatase 162 H Total Protein 5.8 L Albumin 2.4 L Globulin 3.40 H Albumin/Globulin Ratio 0.70 Blood Gas Actual Respiration Rate 20 Blood Gas Critical Value Read Back C OHAYU Medications Medications Current Medications Morphine Sulfate (morphine) 2 mg Q4H PRN IV PAIN Last administered on 08:39; Admin Dose 2 MG; Start 09/15/16 at 23:30 Ondansetron HCl (Zofran Inj) 4 mg Q6H PRN IV NAUSEA AND/OR VOMITING Last administered on 09/26/16 09:23; Admin Dose 4 MG; Start 09/16/16 at 00:30 Acetaminophen (Tylenol Tab) 650 mg Q6H PRN PO PAIN LEVEL 1-3 OR FEVER Last administered on 10/07/16 09:18; Admin Dose 650 MG; Start 09/16/16 at 00:30 Polyethylene Glycol 17 gm 17 gm DAILY PO Last administered on 10/07/16 09:19; Admin Dose 17 GM; Start 09/20/16 at 11:00 Meropenem/Sodium Chloride 50 ml @ 200 mls/hr Q8 IVPB Last administered on 10/07 06:15; Admin Dose 200 MLS/HR; Start 09/20/16 at 22:00 Norepinephrine/ Dextrose (Levophed/D5W) 500 ml @ 1.87 mls/hr TITRATE IV Last administered on 10/07/16 00:02; Admin Dose 18.75 MLS/HR; Start 09/21/16 at 09: 00 Acetaminophen/ Hydrocodone Bitart ([place] (5/325)) 1 tab Q4H PRN PO PAIN LEVEL 4 -7 Last administered on 09/28/16 21:20; Admin Dose 1 TAB; Start 09/21/16 at 15: 00 Acetaminophen/ Hydrocodone Bitart ([place] (5/325)) 2 tab Q4H PRN PO PAIN LEVEL 7 -10; Start 09/21/16 at 15:00 Hydromorphone HCl (Dilaudid) 0.5 mg Q2H PRN IV PAIN Last administered on 16:41; Admin Dose 0.5 MG; Start 09/21/16 at 15:00 Hydromorphone HCl (Dilaudid) 1 mg Q2H PRN IV PAIN Last administered on 23:57; Admin Dose 1 MG; Start 09/21/16 at 15:00 Docusate Sodium (Colace) 100 mg BID PRN PO CONSTIPATION; Start 09/21/16 at 15: 00 Enoxaparin Sodium (Lovenox) 40 mg DAILY SC ; Start 09/22/16 at 09:00; Status Future Hold Docusate Sodium (Colace Liquid Cup) 100 mg BID NGT Last administered on 09:19; Admin Dose 100 MG; Start 09/22/16 at 21:00 Pantoprazole (Protonix Iv) 40 mg DAILY@06 IV Last administered on 10/07/16 06: 21; Admin Dose 40 MG; Start 09/26/16 at 06:00 IV Flush (NS 10 ml) 10 ml PRN PRN IV IV PROTOCOL; Start 09/25/16 at 12:00 Spironolactone 50 mg 50 mg DAILY NGT Last administered on 10/07/16 09:18; Admin Dose 50 MG; Start 09/28/16 at 09:00 Dopamine HCl/ Dextrose 250 ml @ 6.053 mls/ hr TITRATE IV Last administered on 09/30/16 04:46; Admin Dose 6.053 MLS/HR; Start 09/29/16 at 11:00 Phenylephrine HCl 40 mg/Dextrose 500 ml @ 75 mls/hr TITRATE IV ; Start at 14:00 Caspofungin 50 mg/ Sodium Chloride 250 ml @ 250 mls/hr Q24H IVPB Last administered on 10/06/16 11:52; Admin Dose 250 MLS/HR; Start 10/01/16 at 12:00 Metronidazole 100 ml @ 100 mls/hr Q8 IVPB Last administered on 10/07/16 06:21 ; Admin Dose 100 MLS/HR; Start 09/30/16 at 14:00 Vancomycin HCl/ Sodium Chloride (Vancocin/NS) 250 ml @ 83.333 mls/ hr Q36H IVPB Last administered on 10/06/16 16:09; Admin Dose 83.333 MLS/HR; Start at 16:00 Furosemide (Lasix) 20 mg Q6 IV Last administered on 10/07/16 06:23; Admin Dose 20 MG; Start 10/05/16 at 13:00 Lorazepam 0.5 mg 0.5 mg Q6H PRN IV AGITATION/ANXIETY Last administered on 23:21; Admin Dose 0.5 MG; Start 10/05/16 at 23:00 Propofol 100 ml @ 2.421 mls/ hr Q12H IV Last administered on 10/07/16 06:24; Admin Dose 7.263 MLS/HR; Start 10/06/16 at 14:30 Potassium Chloride 250 ml @ 62.5 mls/hr Q4H IVPB Last administered on 09:21; Admin Dose 62.5 MLS/HR; Start 10/07/16 at 07:30; Stop 10/07/16 at 15 :29 Fentanyl (Sublimaze) 100 ml @ 2.5 mls/hr TITRATE IV ; Start 10/07/16 at 09:30 YANETH VIDAL Oct 07, 2016 10:32
--- NOTE | 2016-10-07 10:37 | CONS ---
Date/Time of Note Date/Time of Note DATE: 10/07/16 TIME: 10:31 Assessment/Plan Assessment/Plan Additional Assessment/Plan Chest x-ray was reviewed which is showing bilateral patchy ill without infiltrates improved from yesterday. Patient currently on propofol at 15 mics per kilogram per minute. Levophed at 10 mics per minute. Ventilator setting; AC of 12, tidal volume 500, PEEP of 5, 40% FiO2. Assessment and recommendations; 1. Patient admitted for sepsis from recent ileus. Was extubated then developed bilateral pneumonia requiring reintubation. 2. Ongoing sepsis. 3. Recent colostomy. Continue current treatment. Patient will need to have a tracheostomy and a G- tube placed. This was discussed with the patient's ex- in the room who apparently has DPOA and he is agreeable. Prognosis is guarded. Meanwhile add fentanyl for pain control. Consultation Date/Type/Reason Admit Date/Time Sep 15, 2016 at 21:35 Initial Consult Date 09/21/16 Type of Consultation: Pulmonary/critical care 24 HR Interval Summary Free Text/Dictation Patient condition is critical. Had to be reintubated yesterday for impending respiratory failure. Patient currently is sedated with propofol but is arousable. General exam; elderly woman, orally intubated, currently in no distress. Appearing anxious. Exam/Review of Systems Vital Signs Vitals Vital Signs Date Time Temp Pulse Resp B/P Pulse Ox O2 Delivery O2 Flow Rate FiO2 10/07/16 08:00 100 10/07/16 06:45 19 99/51 96 10/07/16 06:00 Mechanical Ventilator 10/07/16 05:07 40 10/07/16 04:00 98.4 10/06/16 05:00 2.0 Intake and Output 10/06/16 10/06/16 10/07/16 15:00 23:00 07:00 Intake Total 685.55 ml 389.891 ml 212.144 ml Output Total 1193 ml 1135 ml 750 ml Balance -507.45 ml -745.109 ml -537.856 ml Exam HEENT exam; supple neck, no JVD. No lymphadenopathy. Midline trachea. No thyromegaly. Orally intubated. Chest exam; diminished breath sounds bilaterally. S1-S2 audible, no murmurs. Regular rhythm. Abdomen exam; soft, colostomy in place. Bowel sounds are sluggish. Extremity exam; trace edema. [employer] exam; he is awake despite being mildly sedated. Results Result Diagram: 10/07/16 0552 10/07/16 0552 Results 24 hrs Laboratory Tests Test 10/06/16 15:00 10/07/16 05:52 10/07/16 07:00 Blood Gas Specimen Source Blood arterial Blood arterial Arterial Blood Date Drawn 10/06/2016 3:37:12 PM 10/07/2016 7:10:24 AM Arterial Blood pH (Temp corrected) 7.516 H 7.565 *H Arterial Blood pCO2 (Temp correct) 45.3 H 40.1 Arterial Blood pO2 (Temp corrected) 106.4 H 88.4 Arterial Blood HCO3 35.8 H 35.5 H Arterial Blood Base Excess 11.7 H 12.3 H Arterial Blood Oxygen Saturation 97.5 96.5 Cain Test ACCEPTAB ACCEPTAB Arterial Blood Gas Puncture Site Right Radial Left Radial Arterial Blood Carboxyhemoglobin 0.3 0.3 Arterial Blood Methemoglobin 0.6 0.9 Blood Gas A-a O2 Differential 271.6 H 150.7 H Oxyhemoglobin Percent 96.6 95.3 Total Hemoglobin 8.5 L 7.5 L Blood Gas Temperature 37.0 37.0 Blood Gas Respiration Rate 16.0 12.0 Blood Gas Modality VENT - AC VENT - AC FiO2 60.0 40.0 Blood Gas Tidal Volume 450.0 500.0 Blood Gas Low PEEP Setting 5.0 5.0 Blood Gas Notified Whom MELBA ALLEN Blood Gas Notified Time 10/06/2016 3:47:09 PM 10/07/2016 7:27:39 AM White Blood Count 14.4 H Red Blood Count 2.65 L Hemoglobin 7.3 L Hematocrit 22.7 L Mean Corpuscular Volume 85.7 Mean Corpuscular Hemoglobin 27.5 L Mean Corpuscular Hemoglobin Concent 32.2 Red Cell Distribution Width 22.6 H Platelet Count 269 Mean Platelet Volume 11.4 H Neutrophils % 90.0 H Lymphocytes % 6.1 L Monocytes % 2.6 Eosinophils % 0.3 Basophils % 0.4 Nucleated Red Blood Cells % 0.0 Neutrophils # 12.9 H Lymphocytes # 0.9 Monocytes # 0.4 Eosinophils # 0.0 Basophils # 0.1 Nucleated Red Blood Cells # 0.0 Polychromasia 1+ Hypochromasia 1+ Target Cells 1+ Sodium Level 147 H Potassium Level 2.9 *L Chloride Level 97 Carbon Dioxide Level 37 H Anion Gap 16 Blood Urea Nitrogen 25 H Creatinine 1.07 H Glucose Level 126 Calcium Level 7.5 L Phosphorus Level 4.8 Magnesium Level 2.0 Total Bilirubin 0.2 Direct Bilirubin 0.00 Indirect Bilirubin 0.2 Aspartate Amino Transf (AST/SGOT) 18 Alanine Aminotransferase (ALT/SGPT) 32 Alkaline Phosphatase 162 H Total Protein 5.8 L Albumin 2.4 L Globulin 3.40 H Albumin/Globulin Ratio 0.70 Blood Gas Actual Respiration Rate 20 Blood Gas Critical Value Read Back C OHAYU Medications Medications Current Medications Morphine Sulfate (morphine) 2 mg Q4H PRN IV PAIN Last administered on 08:39; Admin Dose 2 MG; Start 09/15/16 at 23:30 Ondansetron HCl (Zofran Inj) 4 mg Q6H PRN IV NAUSEA AND/OR VOMITING Last administered on 09/26/16 09:23; Admin Dose 4 MG; Start 09/16/16 at 00:30 Acetaminophen (Tylenol Tab) 650 mg Q6H PRN PO PAIN LEVEL 1-3 OR FEVER Last administered on 10/07/16 09:18; Admin Dose 650 MG; Start 09/16/16 at 00:30 Polyethylene Glycol 17 gm 17 gm DAILY PO Last administered on 10/07/16 09:19; Admin Dose 17 GM; Start 09/20/16 at 11:00 Meropenem/Sodium Chloride 50 ml @ 200 mls/hr Q8 IVPB Last administered on 10/07 06:15; Admin Dose 200 MLS/HR; Start 09/20/16 at 22:00 Norepinephrine/ Dextrose (Levophed/D5W) 500 ml @ 1.87 mls/hr TITRATE IV Last administered on 10/07/16 00:02; Admin Dose 18.75 MLS/HR; Start 09/21/16 at 09: 00 Acetaminophen/ Hydrocodone Bitart ([place] (5/325)) 1 tab Q4H PRN PO PAIN LEVEL 4 -7 Last administered on 09/28/16 21:20; Admin Dose 1 TAB; Start 09/21/16 at 15: 00 Acetaminophen/ Hydrocodone Bitart ([place] (5/325)) 2 tab Q4H PRN PO PAIN LEVEL 7 -10; Start 09/21/16 at 15:00 Hydromorphone HCl (Dilaudid) 0.5 mg Q2H PRN IV PAIN Last administered on 16:41; Admin Dose 0.5 MG; Start 09/21/16 at 15:00 Hydromorphone HCl (Dilaudid) 1 mg Q2H PRN IV PAIN Last administered on 23:57; Admin Dose 1 MG; Start 09/21/16 at 15:00 Docusate Sodium (Colace) 100 mg BID PRN PO CONSTIPATION; Start 09/21/16 at 15: 00 Enoxaparin Sodium (Lovenox) 40 mg DAILY SC ; Start 09/22/16 at 09:00; Status Future Hold Docusate Sodium (Colace Liquid Cup) 100 mg BID NGT Last administered on 09:19; Admin Dose 100 MG; Start 09/22/16 at 21:00 Pantoprazole (Protonix Iv) 40 mg DAILY@06 IV Last administered on 10/07/16 06: 21; Admin Dose 40 MG; Start 09/26/16 at 06:00 IV Flush (NS 10 ml) 10 ml PRN PRN IV IV PROTOCOL; Start 09/25/16 at 12:00 Spironolactone 50 mg 50 mg DAILY NGT Last administered on 10/07/16 09:18; Admin Dose 50 MG; Start 09/28/16 at 09:00 Dopamine HCl/ Dextrose 250 ml @ 6.053 mls/ hr TITRATE IV Last administered on 09/30/16 04:46; Admin Dose 6.053 MLS/HR; Start 09/29/16 at 11:00 Phenylephrine HCl 40 mg/Dextrose 500 ml @ 75 mls/hr TITRATE IV ; Start at 14:00 Caspofungin 50 mg/ Sodium Chloride 250 ml @ 250 mls/hr Q24H IVPB Last administered on 10/06/16 11:52; Admin Dose 250 MLS/HR; Start 10/01/16 at 12:00 Metronidazole 100 ml @ 100 mls/hr Q8 IVPB Last administered on 10/07/16 06:21 ; Admin Dose 100 MLS/HR; Start 09/30/16 at 14:00 Vancomycin HCl/ Sodium Chloride (Vancocin/NS) 250 ml @ 83.333 mls/ hr Q36H IVPB Last administered on 10/06/16 16:09; Admin Dose 83.333 MLS/HR; Start at 16:00 Furosemide (Lasix) 20 mg Q6 IV Last administered on 10/07/16 06:23; Admin Dose 20 MG; Start 10/05/16 at 13:00 Lorazepam 0.5 mg 0.5 mg Q6H PRN IV AGITATION/ANXIETY Last administered on 23:21; Admin Dose 0.5 MG; Start 10/05/16 at 23:00 Propofol 100 ml @ 2.421 mls/ hr Q12H IV Last administered on 10/07/16 06:24; Admin Dose 7.263 MLS/HR; Start 10/06/16 at 14:30 Potassium Chloride 250 ml @ 62.5 mls/hr Q4H IVPB Last administered on 09:21; Admin Dose 62.5 MLS/HR; Start 10/07/16 at 07:30; Stop 10/07/16 at 15 :29 Fentanyl (Sublimaze) 100 ml @ 2.5 mls/hr TITRATE IV ; Start 10/07/16 at 09:30 GERARDO JUSTICE Oct 07, 2016 10:37
[2016-10-07] MEDS: FENTAnyl (DRIP) 1000 mcg/100mL 100 ML IV SCH (10:39)
--- NOTE | 2016-10-07 11:47 | PN ---
Date/Time of Note Date/Time of Note DATE: 10/07/16 TIME: 11:33 Assessment/Plan Lines/Catheters IV Catheter Type (from [facility]): PICC Line Shore in Place (from [facility]): Yes Assessment/Plan Assessment/Plan [facility] Progress Note Date of Service: 10/07/2016 Place of service: [facility] ICU Today's Assessment & Plan: States stable overnight without major new events. Abdomen continues to remain benign and I removed the patient's drain. I discussed tracheostomy and PEG with Mr. Yanez in person today. He is in agreement for the procedure. I also obtained Guille's consent for both of these procedures over the phone yesterday (please note that Guille is patient's designated decision maker; he lives in [place]). Overall, I am still optimistic that we can turn the clinical picture around and after a long recovery phase of perhaps 3-6 months, for the patient to return back to her normal life. I very clearly explained this again to patient's ex- and to the patient herself. I do not believe that the patient herself is able to make competent medical decisions about her own care. I also believe that she has caring family members as well as her ex- who were deeply invested in her overall care and have her best interest in heart. Fevers today are being investigated with repeat cultures and we are continuing broad-spectrum antimicrobial coverage. No indication for acute surgical intervention. With above assessment, I recommended the following for today: 1. Continue aggressive medical management with intubation; CODE STATUS at this point is DO NOT RESUSCITATE but with intubation being okay and no chest compressions or electric shocks. Chemical code is okay. 2. Continue wound VAC; dressing change 3 times a week 3. Cont aggressive pulmonary toilet 4. Cont Lasix as allowed by her clinical condition 5. Labs in am 6. Please maintain multidisciplinary discussion regarding fluid intake, CODE STATUS, and other major medical decisions since this is a fragile surgical patient with recent sepsis and shock; I changed code status to full code, but without chest compression or electric shock 7. Targeted antimicrobial therapy to culture results 8. PT OT 9. Management of STANDARDS ENGINEER shunt per Dr. Miner 10. Continue NG gastric feeds with plans for PEG placement later this week 11. Keep in the ICU 12. Social work and case management to please start working on disposition planning (rehab versus SNF) 13. Please note: Guille, who is the patient's decision maker currently, would like Mr. Yanez (patient's ex-) to still be involved in her care. He should still have full access to the hospital and patient according to Guille. 14. Tracheostomy consultation with plans for procedure later this week ( consult placed with Dr. Jones) Thank you again for your great care of this very pleasant patient and wonderful family. If there are any questions, please feel free to call me at [phone]. Nature of presenting problem: High severity Please note that, given the extensive number of diagnoses or management options , the extensive amount and/or complexity of data needed to be reviewed, and I risk of complications and/or morbidity or mortality, this qualifies as high complexity type of decision-making. Disclaimer: Inadvertent spelling and grammatical errors are likely due to EHR/ dictation software use and do not reflect on the quality of delivered patient care. Also, please note that the electronic time recorded on this node does not necessarily reflect the actual time of the visit. Updated Clinical Summary: A very pleasant 70-year-old lady without significant known past medical history other than a STANDARDS ENGINEER shunt placement many years ago which she did not remember or report, presenting with what appears to be a sigmoid colon abscess or pericolonic abscess, which seemed to be a complication of diverticulitis. S/p IR drainage 09/09/16 with removal of 20 cc pus and placement of a 10 Fr. pigtail catheter at [facility]. D/c home 09/12/16. Re-presented to [facility] ED 09/15/16 after being diverted from [facility] (due to internal disaster diversion) where CT was done showing adequate placement of the percutaneous drain near the sigmoid colon and decompressed sigmoid colon abscess, no obvious free air or significant spillage of stool in the abdominal cavity, and incidental finding of tail of the STANDARDS ENGINEER shunt in the pelvis (new from right upper quadrant position of the same drain on the CT scan at [facility]). Transfer to [facility] 09/15/2016 for further cares. S/p upsizing of drain to 12 Fr pigtail on 09/17/16 (communication with colon demonstrated; no obvious free communication to rest of peritoneal space). Patient decompensated in the early hours of the morning on 09/21/2016 and had to be transferred to the intensive care unit with need for endotracheal tube intubation, central line placement, and resuscitation for treatment of shock with lactic acidosis and evidence of peritonitis and free air on the new chest, abdomen, and pelvis CT scan. S/p a rather challenging sigmoid colectomy with performance of end colostomy (Reid's procedure), takedown of splenic flexure of the colon, lysis of adhesions (60 minutes), and abdominal lavage at [facility] on 09/21/16; diagnosis of colon ischemia (distal transverse colon and descending colon) during reentry through recent laparotomy incision with exploration of abdominal cavity, takedown of colostomy, completion left hemicolectomy with resection of distal transverse colon, lysis of adhesions, abdominal lavage, performance of an end colostomy [facility] 09/24/16. Extubated post op evening of 09/25/16. Decompensation with intubation and restart of pressors . Right-sided pneumothorax after drainage of right pleural effusion requiring chest tube placement 09/30/2016. Extubated 10/03/2016. Decompensation with reintubation 10/06/16. Comorbidities: 1. Perforated sigmoid colon (see below) 2. Status post ventriculoperitoneal shunt placement. 3. Status post prior hysterectomy and bilateral salpingo-oophorectomy through Pfannenstiel incision 4. S/p IR drainage 09/09/16 with removal of 20 cc pus and placement of a 10 Fr. pigtail catheter at [facility]. 5. Readmission to [facility] 09/15/16 with upsizing of drain to 12 Fr pigtail on (communication with colon demonstrated; no obvious free communication to rest of peritoneal space). Septic shock with multiorgan failure 09/21/2016 requiring ICU admission with intubation and pressors. 6. S/p a rather challenging sigmoid colectomy with performance of end colostomy (Reid's procedure), takedown of splenic flexure of the colon, lysis of adhesions (60 minutes), and abdominal lavage at [facility] on 09/21/16 7. Colon ischemia (distal transverse colon and descending colon) 8. S/p reentry through recent laparotomy incision with exploration of abdominal cavity, takedown of colostomy, completion left hemicolectomy with resection of distal transverse colon, lysis of adhesions, abdominal lavage, performance of an end colostomy [facility] 09/24/16 Subjective: Pulmonary decompensation last night. Lethargic and not communicative. Events noted. Objective: Vitals: See below I's & O's: See below Exam: GENERAL: On exam, the patient was lying in bed and appeared to be breathing shallow and tachypneic. No obvious acute distress. ABDOMEN: Soft, nontender and nondistended. Incision dressings are clean, dry and intact without any obvious evidence of underlying erythema, edema, discharge , or hernia. Surgical drain ss without any evidence of enteric contents. There are no peritoneal signs or guarding. Ostomy appears to be viable and productive with stool and air in the bag. SKIN: Skin appears to be pink and feels warm to touch. NEUROLOGIC: Patient appears to be awake, alert, and follows simple commands. Voice is stronger and able to state more complete sentences. Labs: See below Exam/Review of Systems Vital Signs Vitals Vital Signs Date Time Temp Pulse Resp B/P Pulse Ox O2 Delivery O2 Flow Rate FiO2 10/07/16 08:00 100 10/07/16 06:45 19 99/51 96 10/07/16 06:00 Mechanical Ventilator 10/07/16 05:07 40 10/07/16 04:00 98.4 10/06/16 05:00 2.0 Intake and Output 10/06/16 10/06/16 10/07/16 15:00 23:00 07:00 Intake Total 685.55 ml 389.891 ml 212.144 ml Output Total 1193 ml 1135 ml 750 ml Balance -507.45 ml -745.109 ml -537.856 ml Results Result Diagram: 10/07/16 0552 10/07/16 0552 ALEXSANDER DUARTE M.D. Oct 07, 2016 11:47
--- NOTE | 2016-10-07 11:55 | CONS ---
Date/Time of Note Date/Time of Note DATE: 10/07/16 TIME: 11:44 Assessment/Plan Assessment/Plan Chief Complaint/Hosp Course ID PROGRESS NOTE TOTAL ABX DAY # => VANCO IV + MERREM + FLAGYL #8+ Cancidas #8 => HOSPITAL EVENTS: * s/p 09/21/16 Sigmoid colectomy with performance of end colostomy (Reid's procedure), w/Lysis of adhesions. * s/p 09/21/16 Externalization of SHOE CEMENTER shunt. INDICATION: Possible SHOE CEMENTER shunt infection, ABD abscess * Extubated 10/03 * RE-intubated 09/29 * s/p Left THORA 10/01 * Extubated 10/03 * Re-Intubated 10/06 24H INTERVAL SUMMARY * Spiking fevers > 101.5 -> Blood, urine, sputum sent 10/07 * Back on pressors with worsening respiratory status failed BIPAP and now re- intubated. * No fevers, WBC rising today after steady downtrend 19.4--> 18.4--> 17.7--> 15.0 --> 10.6 Normalized (10/05)--> 15.8 (10/06)-> 14.4 EXAM: 70 yo F ->obtunted on the Vent HEENT:Orally intubated -> Vent Neck: trachea midline. Heart: S1, S2 CXT: chest rise symmetrical breath sounds clear, diminished basis. ABD: Soft, Wound Vac + Colostomy Extremities without cyanosis, (+) edema x4 = dependent edema ID ASSESSMENT 70 yo F w/PMHx ICH and SHOE CEMENTER shunt admit with: 1. s/p Sepsis w/shock , s/p lactic acidosis => Back on pressors 10/06/16 * (+)Leukocytosis * (+)Fevers >101.5 10/07 2. s/p Perforated sigmoid colon w/abscess: POD#-> s/p 09/21/16 Sigmoid colectomy with performance of end colostomy (Reid's procedure), w/Lysis of adhesions. * MICRO: 09/23/16 BODY FLUID CULTURE Final Organism 1 ENTEROCOCCUS SPECIES Organism 2 COAGULASE NEGATIVE STAPH Organism 3 ALPHA HEMOLYTIC STREP SPP . VIRIDANS GROUP 4. ABD WOUND => (+)VAC 5. Acute respiratory failure -> orally RE-intubated 10/06 6. CHF w/elevated BNP => (+)Anasarca w/Pleural effusions s/p CT drain 09/30 7. HCAP => RESOLVING * Sputum from ETT grew yeast/fungus => CONTAMINANT * CT 09/30 THORA BODY FLUID CULTURE no growth * AFB SMEAR (-) x 2 Final ACID FAST BACILLI NONE SEEN 8. Pancytopenia - sepsis 9. Coagulopathy w/thrombocytopenia 10. (+)Troponin elevation likely type II in the setting of septic shock. Echo from 09/18 showed normal EF and no significant valvular disease. 11. POD # ->S/P 09/21/16 Externalization of SHOE CEMENTER shunt. INDICATION: Possible SHOE CEMENTER shunt infection, hx of Hydrocephalus, SHOE CEMENTER shunt, abdominal abscess (-)MRSA Nares screen INVASIVES: PICC (09/25/16) , ETT, NGT, VPS, FC, intra-abdominal drainage catheters ABX ALLERGY: PCN CURRENT ABX:TOTAL ABX DAY # => VANCO IV + MERREM + FLAGYL #8+ Cancidas #8 ID RECOMMENDATIONS NOTE: Sputum from ETT grew fungus == consistent with contaminant 1. Let's change up the ABX for concern FEVERS while on current ABX * Patient continues to be septic despite lengthy course of current ABX, will ask [facility] pharmacy if she is candidate for Tygacil, concern MDRO. * Tygacil has excellent penetration into the bowel/gut/skin-soft tissue/lungs. REFERENCE Tigecycline (Tygacil): the first in the glycylcycline class of antibiotics https://www.ncbi.nlm.nih.gov/pmc/articles/XJQ1396387/ As shown in Table 2, tigecycline has a broad spectrum of activity against many gram-positive, gram-negative, and anaerobic organisms (1, 3, 4, 9). ... Tigecycline and minocycline cover Acinetobacter species (10). Tigecycline is less active than minocycline against Stenotrophomonas maltophilia and Burkholderia cepacia. Table 2 MIC90 of tigecycline and the tetracyclines in vitro* Organism Tigecycline Tetracycline Doxycycline Minocycline Gram-positive Staphylococcus aureus, methicillin susceptible 0.120.5 1 0.5 0.12 Staphylococcus aureus, methicillin resistant 0.255 32 2 2 Staphylococcus epidermidis, methicillin susceptible 0.5 2 NA 0.5 Staphylococcus epidermidis, methicillin resistant 0.5 >8 NA 4 Streptococcus pneumoniae, penicillin sensitive 0.060.125 32 8 8 Streptococcus pneumoniae, penicillin intermediate 0.06 64 8 16 Streptococcus pneumoniae, penicillin resistant 0.060.125 64 8 16 Streptococcus pyogenes 0.06 4 0.5 0.25 Enterococcus faecalis 0.120.25 128 16 32 Enterococcus faecium 0.120.25 64 16 16 Gram-negative Acinetobacter spp. 2 >32 NA 1 Burkholderia cepacia 32 4 NA 2 Citrobacter freundii 0.52 8 NA 8 Enterobacter aerogenes 1 4 NA 2 Enterobacter cloacae 0.54 >8 NA >8 Escherichia coli 0.5 >8 NA 8 Klebsiella pneumoniae 12 4 NA 4 Moraxella catarrhalis 0.12 0.25 NA 0.06 Morganella morganii 48 16 NA 4 Proteus mirabilis 8 32 NA 16 Pseudomonas aeruginosa 16 >32 NA 32 Stenotrophomonas maltophilia 24 32 NA 1 Serratia marcescens 2 >8 NA 8 Haemophilus influenzae 0.51 0.5 NA 8 Anaerobes Bacteroides fragilis 24 32 8 8 Clostridium difficile 0.1250.5 0.125 0.125 0.032 Clostridium perfringens 0.250.5 8 0.125 0.125 Peptostreptococcus spp. 0.1250.25 16 4 8 Other Chlamydia pneumoniae 0.125 NA 0.25 NA Legionella pneumoniae NA 18 4 4 Mycoplasma pneumoniae 0.25 1 1.6 1 *Data from references 3 and 4. MICs are presented in g/mL. MIC90 indicates minimum inhibitory concentration of 90% of isolates; NA, information not available. . . . . Problems: Consultation Date/Type/Reason Admit Date/Time Sep 15, 2016 at 21:35 Initial Consult Date 09/21/16 Type of Consultation: ID Exam/Review of Systems Vital Signs Vitals Vital Signs Date Time Temp Pulse Resp B/P Pulse Ox O2 Delivery O2 Flow Rate FiO2 10/07/16 08:00 100 10/07/16 06:45 19 99/51 96 10/07/16 06:00 Mechanical Ventilator 10/07/16 05:07 40 10/07/16 04:00 98.4 10/06/16 05:00 2.0 Intake and Output 10/06/16 10/06/16 10/07/16 15:00 23:00 07:00 Intake Total 685.55 ml 389.891 ml 212.144 ml Output Total 1193 ml 1135 ml 750 ml Balance -507.45 ml -745.109 ml -537.856 ml Results Result Diagram: 10/07/16 0552 10/07/16 0552 Results 24 hrs Laboratory Tests Test 10/06/16 15:00 10/07/16 05:52 10/07/16 07:00 Blood Gas Specimen Source Blood arterial Blood arterial Arterial Blood Date Drawn 10/06/2016 3:37:12 PM 10/07/2016 7:10:24 AM Arterial Blood pH (Temp corrected) 7.516 H 7.565 *H Arterial Blood pCO2 (Temp correct) 45.3 H 40.1 Arterial Blood pO2 (Temp corrected) 106.4 H 88.4 Arterial Blood HCO3 35.8 H 35.5 H Arterial Blood Base Excess 11.7 H 12.3 H Arterial Blood Oxygen Saturation 97.5 96.5 Cain Test ACCEPTAB ACCEPTAB Arterial Blood Gas Puncture Site Right Radial Left Radial Arterial Blood Carboxyhemoglobin 0.3 0.3 Arterial Blood Methemoglobin 0.6 0.9 Blood Gas A-a O2 Differential 271.6 H 150.7 H Oxyhemoglobin Percent 96.6 95.3 Total Hemoglobin 8.5 L 7.5 L Blood Gas Temperature 37.0 37.0 Blood Gas Respiration Rate 16.0 12.0 Blood Gas Modality VENT - AC VENT - AC FiO2 60.0 40.0 Blood Gas Tidal Volume 450.0 500.0 Blood Gas Low PEEP Setting 5.0 5.0 Blood Gas Notified Whom BT Good TIFFANY Blood Gas Notified Time 10/06/2016 3:47:09 PM 10/07/2016 7:27:39 AM White Blood Count 14.4 H Red Blood Count 2.65 L Hemoglobin 7.3 L Hematocrit 22.7 L Mean Corpuscular Volume 85.7 Mean Corpuscular Hemoglobin 27.5 L Mean Corpuscular Hemoglobin Concent 32.2 Red Cell Distribution Width 22.6 H Platelet Count 269 Mean Platelet Volume 11.4 H Neutrophils % 90.0 H Lymphocytes % 6.1 L Monocytes % 2.6 Eosinophils % 0.3 Basophils % 0.4 Nucleated Red Blood Cells % 0.0 Neutrophils # 12.9 H Lymphocytes # 0.9 Monocytes # 0.4 Eosinophils # 0.0 Basophils # 0.1 Nucleated Red Blood Cells # 0.0 Polychromasia 1+ Hypochromasia 1+ Target Cells 1+ Sodium Level 147 H Potassium Level 2.9 *L Chloride Level 97 Carbon Dioxide Level 37 H Anion Gap 16 Blood Urea Nitrogen 25 H Creatinine 1.07 H Glucose Level 126 Calcium Level 7.5 L Phosphorus Level 4.8 Magnesium Level 2.0 Total Bilirubin 0.2 Direct Bilirubin 0.00 Indirect Bilirubin 0.2 Aspartate Amino Transf (AST/SGOT) 18 Alanine Aminotransferase (ALT/SGPT) 32 Alkaline Phosphatase 162 H Total Protein 5.8 L Albumin 2.4 L Globulin 3.40 H Albumin/Globulin Ratio 0.70 Blood Gas Actual Respiration Rate 20 Blood Gas Critical Value Read Back C OHAYU Medications Medications Current Medications Morphine Sulfate (morphine) 2 mg Q4H PRN IV PAIN Last administered on 08:39; Admin Dose 2 MG; Start 09/15/16 at 23:30 Ondansetron HCl (Zofran Inj) 4 mg Q6H PRN IV NAUSEA AND/OR VOMITING Last administered on 09/26/16 09:23; Admin Dose 4 MG; Start 09/16/16 at 00:30 Acetaminophen (Tylenol Tab) 650 mg Q6H PRN PO PAIN LEVEL 1-3 OR FEVER Last administered on 10/07/16 09:18; Admin Dose 650 MG; Start 09/16/16 at 00:30 Polyethylene Glycol 17 gm 17 gm DAILY PO Last administered on 10/07/16 09:19; Admin Dose 17 GM; Start 09/20/16 at 11:00 Meropenem/Sodium Chloride 50 ml @ 200 mls/hr Q8 IVPB Last administered on 10/07 06:15; Admin Dose 200 MLS/HR; Start 09/20/16 at 22:00 Norepinephrine/ Dextrose (Levophed/D5W) 500 ml @ 1.87 mls/hr TITRATE IV Last administered on 10/07/16 00:02; Admin Dose 18.75 MLS/HR; Start 09/21/16 at 09: 00 Acetaminophen/ Hydrocodone Bitart ([place] (5/325)) 1 tab Q4H PRN PO PAIN LEVEL 4 -7 Last administered on 09/28/16 21:20; Admin Dose 1 TAB; Start 09/21/16 at 15: 00 Acetaminophen/ Hydrocodone Bitart ([place] (5/325)) 2 tab Q4H PRN PO PAIN LEVEL 7 -10; Start 09/21/16 at 15:00 Hydromorphone HCl (Dilaudid) 0.5 mg Q2H PRN IV PAIN Last administered on 16:41; Admin Dose 0.5 MG; Start 09/21/16 at 15:00 Hydromorphone HCl (Dilaudid) 1 mg Q2H PRN IV PAIN Last administered on 23:57; Admin Dose 1 MG; Start 09/21/16 at 15:00 Docusate Sodium (Colace) 100 mg BID PRN PO CONSTIPATION; Start 09/21/16 at 15: 00 Enoxaparin Sodium (Lovenox) 40 mg DAILY SC ; Start 09/22/16 at 09:00; Status Future Hold Docusate Sodium (Colace Liquid Cup) 100 mg BID NGT Last administered on 09:19; Admin Dose 100 MG; Start 09/22/16 at 21:00 Pantoprazole (Protonix Iv) 40 mg DAILY@06 IV Last administered on 10/07/16 06: 21; Admin Dose 40 MG; Start 09/26/16 at 06:00 IV Flush (NS 10 ml) 10 ml PRN PRN IV IV PROTOCOL; Start 09/25/16 at 12:00 Spironolactone 50 mg 50 mg DAILY NGT Last administered on 10/07/16 09:18; Admin Dose 50 MG; Start 09/28/16 at 09:00 Dopamine HCl/ Dextrose 250 ml @ 6.053 mls/ hr TITRATE IV Last administered on 09/30/16 04:46; Admin Dose 6.053 MLS/HR; Start 09/29/16 at 11:00 Phenylephrine HCl 40 mg/Dextrose 500 ml @ 75 mls/hr TITRATE IV ; Start at 14:00 Caspofungin 50 mg/ Sodium Chloride 250 ml @ 250 mls/hr Q24H IVPB Last administered on 10/06/16 11:52; Admin Dose 250 MLS/HR; Start 10/01/16 at 12:00 Metronidazole 100 ml @ 100 mls/hr Q8 IVPB Last administered on 10/07/16 06:21 ; Admin Dose 100 MLS/HR; Start 09/30/16 at 14:00 Vancomycin HCl/ Sodium Chloride (Vancocin/NS) 250 ml @ 83.333 mls/ hr Q36H IVPB Last administered on 10/06/16 16:09; Admin Dose 83.333 MLS/HR; Start at 16:00 Furosemide (Lasix) 20 mg Q6 IV Last administered on 10/07/16 06:23; Admin Dose 20 MG; Start 10/05/16 at 13:00 Lorazepam 0.5 mg 0.5 mg Q6H PRN IV AGITATION/ANXIETY Last administered on 23:21; Admin Dose 0.5 MG; Start 10/05/16 at 23:00 Propofol 100 ml @ 2.421 mls/ hr Q12H IV Last administered on 10/07/16 06:24; Admin Dose 7.263 MLS/HR; Start 10/06/16 at 14:30 Potassium Chloride 250 ml @ 62.5 mls/hr Q4H IVPB Last administered on 09:21; Admin Dose 62.5 MLS/HR; Start 10/07/16 at 07:30; Stop 10/07/16 at 15 :29 Fentanyl (Sublimaze) 100 ml @ 2.5 mls/hr TITRATE IV Last administered on 10:39; Admin Dose 2.5 MLS/HR; Start 10/07/16 at 09:30 DONNA HERNANDEZ NP Oct 07, 2016 11:55
[2016-10-07] MEDS ORDERED: TIGECYCLINE 100 MG in SOD CHLORIDE 0.9% 100 ML IVPB ONE (12:30)
[2016-10-07] MEDS: CASPOFUNGIN 50 MG in SOD CHLORIDE 0.9% 250 ML IVPB SCH (12:41)
[2016-10-07 14:30] LABS: CALCIUM 7.2 mg/dl (8.4-10.2); CREATININE 1.06 mg/dl (0.44-1.00); POTASSIUM 3.4 mmol/L (3.5-5.1)
[2016-10-07] MEDS ORDERED: morphine 4 MG/ML VIAL IV PRN (14:30)
--- NOTE | 2016-10-07 14:32 | PN ---
Date/Time of Note Date/Time of Note DATE: 10/07/16 TIME: 14:29 Assessment/Plan VTE Prophylaxis VTE Prophylaxis Intervention: SCD's Assessment/Plan Chief Complaint/Hosp Course 1. Sigmoid colon abscess, likely a complication of diverticulitis - s/p sigmoid colectomy with end colostomy (Reid's procedure) and adhesiolysis on 09/21/16 - continue antibiotics. Follow-up surgery recommendation. ID is on board. 2. Status post septic shock -Continue antibiotics and IV fluid. -Pressors as needed. 3. Ventilator dependent respiratory failure: Status post re-extubation few days ago. -Plan is for tracheostomy 4. Left pleural effusion: Status post thoracentesis, complicated with pneumothorax status post placement of a chest tube. 4. History of ICH, s/p ventriculoperitoneal shunt placement: Neurosurg on board 5. Paroxysmal A. fib: Now in sinus rhythm status post amiodarone and dopamine. Cardiology on board, appreciate recommendation 6. Acute renal insufficiency: Resolved. Appreciate nephrology input. 7. s/p NSTEMI: Likely secondary to septic shock. Cardiology on board. 8. Volume overload state: Continue diuresis. Patient still has bilateral lower extremity pitting edema. 9. Anemia, likely a combination of iron deficiency and anemia of chronic disease: Previous notes mention iron replacement. Given patient is extubated, will start her on ferrous sulfate once she passes swallow evaluation. She did fail swallow evaluation yesterday. will consider blood transfusion 10. Hypokalemia: Replete 11. Dysphagia Plan is for PEG tube placement Prophylaxis: SCDs Problems: Subjective 24 Hr Interval Summary Subjective hx not possible: pt non-verbal Exam/Review of Systems Vital Signs Vitals Vital Signs Date Time Temp Pulse Resp B/P Pulse Ox O2 Delivery O2 Flow Rate FiO2 10/07/16 12:00 99 10/07/16 06:45 19 99/51 96 10/07/16 06:00 Mechanical Ventilator 10/07/16 05:07 40 10/07/16 04:00 98.4 10/06/16 05:00 2.0 Intake and Output 10/06/16 10/06/16 10/07/16 15:00 23:00 07:00 Intake Total 685.55 ml 389.891 ml 212.144 ml Output Total 1193 ml 1135 ml 750 ml Balance -507.45 ml -745.109 ml -537.856 ml Exam Constitutional: non-verbal Respiratory: clear to auscultation Cardiovascular: regular rate and rhythm Gastrointestinal: soft, No distended Musculoskeletal: nl extremities to inspection Results Result Diagram: 10/07/16 0552 10/07/16 0552 Results 24 hrs Laboratory Tests Test 10/06/16 15:00 10/07/16 05:52 10/07/16 07:00 Blood Gas Specimen Source Blood arterial Blood arterial Arterial Blood Date Drawn 10/06/2016 3:37:12 PM 10/07/2016 7:10:24 AM Arterial Blood pH (Temp corrected) 7.516 H 7.565 *H Arterial Blood pCO2 (Temp correct) 45.3 H 40.1 Arterial Blood pO2 (Temp corrected) 106.4 H 88.4 Arterial Blood HCO3 35.8 H 35.5 H Arterial Blood Base Excess 11.7 H 12.3 H Arterial Blood Oxygen Saturation 97.5 96.5 Cain Test ACCEPTAB ACCEPTAB Arterial Blood Gas Puncture Site Right Radial Left Radial Arterial Blood Carboxyhemoglobin 0.3 0.3 Arterial Blood Methemoglobin 0.6 0.9 Blood Gas A-a O2 Differential 271.6 H 150.7 H Oxyhemoglobin Percent 96.6 95.3 Total Hemoglobin 8.5 L 7.5 L Blood Gas Temperature 37.0 37.0 Blood Gas Respiration Rate 16.0 12.0 Blood Gas Modality VENT - AC VENT - AC FiO2 60.0 40.0 Blood Gas Tidal Volume 450.0 500.0 Blood Gas Low PEEP Setting 5.0 5.0 Blood Gas Notified Whom MELBA ALLEN Blood Gas Notified Time 10/06/2016 3:47:09 PM 10/07/2016 7:27:39 AM White Blood Count 14.4 H Red Blood Count 2.65 L Hemoglobin 7.3 L Hematocrit 22.7 L Mean Corpuscular Volume 85.7 Mean Corpuscular Hemoglobin 27.5 L Mean Corpuscular Hemoglobin Concent 32.2 Red Cell Distribution Width 22.6 H Platelet Count 269 Mean Platelet Volume 11.4 H Neutrophils % 90.0 H Lymphocytes % 6.1 L Monocytes % 2.6 Eosinophils % 0.3 Basophils % 0.4 Nucleated Red Blood Cells % 0.0 Neutrophils # 12.9 H Lymphocytes # 0.9 Monocytes # 0.4 Eosinophils # 0.0 Basophils # 0.1 Nucleated Red Blood Cells # 0.0 Polychromasia 1+ Hypochromasia 1+ Target Cells 1+ Sodium Level 147 H Potassium Level 2.9 *L Chloride Level 97 Carbon Dioxide Level 37 H Anion Gap 16 Blood Urea Nitrogen 25 H Creatinine 1.07 H Glucose Level 126 Calcium Level 7.5 L Phosphorus Level 4.8 Magnesium Level 2.0 Total Bilirubin 0.2 Direct Bilirubin 0.00 Indirect Bilirubin 0.2 Aspartate Amino Transf (AST/SGOT) 18 Alanine Aminotransferase (ALT/SGPT) 32 Alkaline Phosphatase 162 H Total Protein 5.8 L Albumin 2.4 L Globulin 3.40 H Albumin/Globulin Ratio 0.70 Blood Gas Actual Respiration Rate 20 Blood Gas Critical Value Read Back C OHAYU Medications Medications Current Medications Ondansetron HCl (Zofran Inj) 4 mg Q6H PRN IV NAUSEA AND/OR VOMITING Last administered on 09/26/16 09:23; Admin Dose 4 MG; Start 09/16/16 at 00:30 Acetaminophen (Tylenol Tab) 650 mg Q6H PRN PO PAIN LEVEL 1-3 OR FEVER Last administered on 10/07/16 09:18; Admin Dose 650 MG; Start 09/16/16 at 00:30 Polyethylene Glycol 17 gm 17 gm DAILY PO Last administered on 10/07/16 09:19; Admin Dose 17 GM; Start 09/20/16 at 11:00 Norepinephrine/ Dextrose (Levophed/D5W) 500 ml @ 1.87 mls/hr TITRATE IV Last administered on 10/07/16 00:02; Admin Dose 18.75 MLS/HR; Start 09/21/16 at 09: 00 Acetaminophen/ Hydrocodone Bitart ([place] (5/325)) 1 tab Q4H PRN PO PAIN LEVEL 4 -7 Last administered on 09/28/16 21:20; Admin Dose 1 TAB; Start 09/21/16 at 15: 00 Acetaminophen/ Hydrocodone Bitart ([place] (5/325)) 2 tab Q4H PRN PO PAIN LEVEL 7 -10; Start 09/21/16 at 15:00 Hydromorphone HCl (Dilaudid) 0.5 mg Q2H PRN IV PAIN Last administered on 16:41; Admin Dose 0.5 MG; Start 09/21/16 at 15:00 Hydromorphone HCl (Dilaudid) 1 mg Q2H PRN IV PAIN Last administered on 23:57; Admin Dose 1 MG; Start 09/21/16 at 15:00 Docusate Sodium (Colace) 100 mg BID PRN PO CONSTIPATION; Start 09/21/16 at 15: 00 Enoxaparin Sodium (Lovenox) 40 mg DAILY SC ; Start 09/22/16 at 09:00; Status Future Hold Docusate Sodium (Colace Liquid Cup) 100 mg BID NGT Last administered on 09:19; Admin Dose 100 MG; Start 09/22/16 at 21:00 Pantoprazole (Protonix Iv) 40 mg DAILY@06 IV Last administered on 10/07/16 06: 21; Admin Dose 40 MG; Start 09/26/16 at 06:00 IV Flush (NS 10 ml) 10 ml PRN PRN IV IV PROTOCOL; Start 09/25/16 at 12:00 Spironolactone 50 mg 50 mg DAILY NGT Last administered on 10/07/16 09:18; Admin Dose 50 MG; Start 09/28/16 at 09:00 Dopamine HCl/ Dextrose 250 ml @ 6.053 mls/ hr TITRATE IV Last administered on 09/30/16 04:46; Admin Dose 6.053 MLS/HR; Start 09/29/16 at 11:00 Phenylephrine HCl 40 mg/Dextrose 500 ml @ 75 mls/hr TITRATE IV ; Start at 14:00 Caspofungin/ Sodium Chloride (Cancidas/NS) 250 ml @ 250 mls/hr Q24H IVPB Last administered on 10/07/16 12:41; Admin Dose 250 MLS/HR; Start 10/01/16 at 12:00 Furosemide (Lasix) 20 mg Q6 IV Last administered on 10/07/16 12:43; Admin Dose 20 MG; Start 10/05/16 at 13:00 Lorazepam 0.5 mg 0.5 mg Q6H PRN IV AGITATION/ANXIETY Last administered on 23:21; Admin Dose 0.5 MG; Start 10/05/16 at 23:00 Propofol 100 ml @ 2.421 mls/ hr Q12H IV Last administered on 10/07/16 06:24; Admin Dose 7.263 MLS/HR; Start 10/06/16 at 14:30 Potassium Chloride 250 ml @ 62.5 mls/hr Q4H IVPB Last administered on 13:03; Admin Dose 62.5 MLS/HR; Start 10/07/16 at 07:30; Stop 10/07/16 at 15 :29 Fentanyl 100 ml @ 2.5 mls/hr TITRATE IV Last administered on 10/07/16 10:39; Admin Dose 2.5 MLS/HR; Start 10/07/16 at 09:30 Tigecycline/ Sodium Chloride (Tygacil/NS) 100 ml @ 200 mls/hr Q12 IVPB ; Start 10/07/16 at 21:00 Morphine Sulfate (morphine) 2 mg Q4H PRN IV PAIN; Start 10/07/16 at 14:30 DALE RODARTE Oct 07, 2016 14:32
[2016-10-07] MEDS ORDERED: POTASSIUM CHLORIDE 20 MEQ POWDER FOR ORAL SOLN NGT ONE (16:30)
[2016-10-07] MEDS: TIGECYCLINE 50 MG in SOD CHLORIDE 0.9% 100 ML IVPB SCH (21:08)
[2016-10-08] VITALS (87 sets, daily range): BP systolic 85–160; BP diastolic 47–119; PULSE 70–98; RESP 12–72
[2016-10-08] MEDS: ACETYLCYSTEINE 20% 4 ML VIAL NEB SCH ×6 (01:29→21:21)
[2016-10-08] MEDS: IPRATROPIUM (HFA) 12.9 GM INHALER INH SCH ×6 (01:29→21:21)
[2016-10-08] MEDS: ALBUTEROL 18 GM INHALER INH SCH ×6 (01:29→21:21)
[2016-10-08] MEDS: PROPOFOL 100 ML IV SCH ×2 (03:23→17:29)
[2016-10-08 05:23] LABS: ABNORMAL IP MESSAGE 1; BASOPHIL # 0.1 10^3/ul (0.0-0.1); BASOPHILS % 0.4 % (0.0-2.0); EOSINOPHILS # 0.2 10^3/ul (0.0-0.5); EOSINOPHILS % 1.1 % (0.0-7.0); HEMATOCRIT 21.3 % (37.0-47.0); LYMPHOCYTES # 0.9 10^3/ul (0.8-2.9); LYMPHOCYTES % 5.9 % (15.0-51.0); MEAN CORPUSCULAR HGB CONC 31.9 g/dl (32.0-37.0); MEAN CORPUSCULAR VOLUME 87.7 fl (82.0-101.0); MEAN PLATELET VOLUME 11.5 fl (7.4-10.4); MONOCYTE # 0.6 10^3/ul (0.3-0.9); MONOCYTES % 3.6 % (0.0-11.0); NEUTROPHIL # 13.6 10^3/ul (1.6-7.5); NEUTROPHILS % 88.4 % (39.0-77.0); PLATELET COUNT 225 10^3/UL (140-415); RED BLOOD COUNT 2.43 10^6/ul (4.20-5.40); RED CELL DISTRIBUTION WIDTH 22.7 % (11.5-14.5); WHITE BLOOD COUNT 15.4 10^3/ul (4.8-10.8)
[2016-10-08 05:38] LABS: POSITIVE DIFF @See below
[2016-10-08] MEDS: PANTOPRAZOLE 40 MG INJ IV SCH (05:38)
[2016-10-08] MEDS: FUROSEMIDE 20 MG INJ IV SCH ×4 (05:38→18:21)
[2016-10-08 05:41] LABS: HEMOGLOBIN 6.8 g/dl (12.0-16.0)
[2016-10-08 05:48] LABS: CALCIUM 7.6 mg/dl (8.4-10.2); MAGNESIUM 2.1 mg/dl (1.7-2.5); PHOSPHORUS 4.9 mg/dl (2.5-4.9); POTASSIUM 3.4 mmol/L (3.5-5.1)
--- NOTE | 2016-10-08 07:27 | PN ---
Date/Time of Note Date/Time of Note DATE: 10/08/16 TIME: 07:26 Assessment/Plan VTE Prophylaxis VTE Prophylaxis Intervention: other Lines/Catheters IV Catheter Type (from Nrsg): PICC Line Central line still needed: Yes Urinary Cath still in place: Yes Reason Cath still needed: other (indicate) Assessment/Plan Chief Complaint/Hosp Course Nonoliguric acute kidney injury. Etiology secondary ATN -Renal function has declined the last 24 hours, secondary to hemodynamics, diuretics, sepsis continue current treatment plan renally dose meds avoid nephrotoxins Hypernatremia Increase free water flushes, Monitor serial sodium levels Hypokalemia secondary to diuretics Replete potassium chloride as needed Aldactone 50 mg daily Monitor closely Volume overload/anasarca secondary CHF, third spacing -Patient remains volume overloaded, worsening pulmonary edema Diuretics being adjusted by cardiology, will defer for management We will monitor electrolytes closely Monitor I's and O's closely Metabolic alkalosis, secondary to diuretic therapy, hypokalemia, hypochloremia ABG reviewed Would give Diamox intermittently with loop diuretics Monitor electrolytes closely, replete as needed Sepstic shock Patient patient on pressors Continue broad-spectrum antibiotics next, follow-up cultures Monitor closely Anemia Monitor H&H levels Pending blood transfusion Mineral bone disorder Monitor calcium phosphorus levels Lactic acidosis secondary to shock -Continue to monitor 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 -Continue treatment plan -Follow-up with surgery Respiratory failure, secondary to CHF Patient on BiPAP Chest x-ray ABG reviewed Follow-up with pulmonary, cardiology Continue diuresis History of intracranial hemorrhage in the past status post 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 shunt placement that has been stable over time -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 shunt was externalized during the surgery September 21, 2016 due to abdominal infection, per neurosurgical notes may need to be reconnected once patient stable versus removed Problems: Subjective 24 Hr Interval Summary Free Text/Dictation Patient remains critically ill on pressure support On full ventilatory support Patient anemic pending blood transfusion explained good urinary output Exam/Review of Systems Vital Signs Vitals Vital Signs Date Time Temp Pulse Resp B/P Pulse Ox O2 Delivery O2 Flow Rate FiO2 10/08/16 05:45 78 22 130/69 99 10/08/16 05:21 40 10/08/16 04:00 98.7 10/07/16 19:45 Mechanical Ventilator 10/06/16 05:00 2.0 Intake and Output 10/07/16 10/07/16 10/08/16 15:00 23:00 07:00 Intake Total 1386.00 ml 1165.72 ml 742.5 ml Output Total 940 ml 585 ml 412 ml Balance 446.00 ml 580.72 ml 330.5 ml Exam HEENT: Head is normocephalic, NECK: Supple. HEART: Irregular LUNGS: Show diminished breath sounds at base. ABDOMEN: Soft, nontender to palpation without rebound or guarding. Positive ostomy EXTREMITIES: Negative for clubbing, cyanosis. Positive edema DERMATOLOGIC: No rashes. MUSCULOSKELETAL: No joint effusions, NEUROLOGIC: No change in exam. Results Result Diagram: 10/08/16 0400 10/08/16 0400 Results 24 hrs Laboratory Tests Test 10/07/16 14:02 10/08/16 04:00 Sodium Level 146 H 145 H Potassium Level 3.4 L 3.4 L Chloride Level 99 97 Carbon Dioxide Level 37 H 37 H Anion Gap 13 14 Blood Urea Nitrogen 24 H 30 H Creatinine 1.06 H 1.00 Glucose Level 152 153 Calcium Level 7.2 L 7.6 L White Blood Count 15.4 H Red Blood Count 2.43 L Hemoglobin 6.8 *L Hematocrit 21.3 L Mean Corpuscular Volume 87.7 Mean Corpuscular Hemoglobin 28.0 L Mean Corpuscular Hemoglobin Concent 31.9 L Red Cell Distribution Width 22.7 H Platelet Count 225 Mean Platelet Volume 11.5 H Neutrophils % 88.4 H Lymphocytes % 5.9 L Monocytes % 3.6 Eosinophils % 1.1 Basophils % 0.4 Nucleated Red Blood Cells % 0.0 Neutrophils # 13.6 H Lymphocytes # 0.9 Monocytes # 0.6 Eosinophils # 0.2 Basophils # 0.1 Nucleated Red Blood Cells # 0.0 Phosphorus Level 4.9 Magnesium Level 2.1 Medications Medications Current Medications Ondansetron HCl (Zofran Inj) 4 mg Q6H PRN IV NAUSEA AND/OR VOMITING Last administered on 09/26/16 09:23; Admin Dose 4 MG; Start 09/16/16 at 00:30 Acetaminophen (Tylenol Tab) 650 mg Q6H PRN PO PAIN LEVEL 1-3 OR FEVER Last administered on 10/07/16 09:18; Admin Dose 650 MG; Start 09/16/16 at 00:30 Polyethylene Glycol 17 gm 17 gm DAILY PO Last administered on 10/07/16 09:19; Admin Dose 17 GM; Start 09/20/16 at 11:00 Norepinephrine/ Dextrose (Levophed/D5W) 500 ml @ 1.87 mls/hr TITRATE IV Last administered on 10/08/16 03:37; Admin Dose 15 MLS/HR; Start 09/21/16 at 09:00 Acetaminophen/ Hydrocodone Bitart ([place] (5/325)) 1 tab Q4H PRN PO PAIN LEVEL 4 -7 Last administered on 09/28/16 21:20; Admin Dose 1 TAB; Start 09/21/16 at 15: 00 Acetaminophen/ Hydrocodone Bitart ([place] (5/325)) 2 tab Q4H PRN PO PAIN LEVEL 7 -10; Start 09/21/16 at 15:00 Hydromorphone HCl (Dilaudid) 0.5 mg Q2H PRN IV PAIN Last administered on 16:41; Admin Dose 0.5 MG; Start 09/21/16 at 15:00 Hydromorphone HCl (Dilaudid) 1 mg Q2H PRN IV PAIN Last administered on 23:57; Admin Dose 1 MG; Start 09/21/16 at 15:00 Docusate Sodium (Colace) 100 mg BID PRN PO CONSTIPATION; Start 09/21/16 at 15: 00 Enoxaparin Sodium (Lovenox) 40 mg DAILY SC ; Start 09/22/16 at 09:00; Status Future Hold Docusate Sodium (Colace Liquid Cup) 100 mg BID NGT Last administered on 21:08; Admin Dose 100 MG; Start 09/22/16 at 21:00 Pantoprazole (Protonix Iv) 40 mg DAILY@06 IV Last administered on 10/08/16 05: 38; Admin Dose 40 MG; Start 09/26/16 at 06:00 IV Flush (NS 10 ml) 10 ml PRN PRN IV IV PROTOCOL; Start 09/25/16 at 12:00 Spironolactone 50 mg 50 mg DAILY NGT Last administered on 10/07/16 09:18; Admin Dose 50 MG; Start 09/28/16 at 09:00 Dopamine HCl/ Dextrose 250 ml @ 6.053 mls/ hr TITRATE IV Last administered on 09/30/16 04:46; Admin Dose 6.053 MLS/HR; Start 09/29/16 at 11:00 Phenylephrine HCl 40 mg/Dextrose 500 ml @ 75 mls/hr TITRATE IV ; Start at 14:00 Caspofungin/ Sodium Chloride (Cancidas/NS) 250 ml @ 250 mls/hr Q24H IVPB Last administered on 10/07/16 12:41; Admin Dose 250 MLS/HR; Start 10/01/16 at 12:00 Furosemide (Lasix) 20 mg Q6 IV Last administered on 10/08/16 05:38; Admin Dose 20 MG; Start 10/05/16 at 13:00 Lorazepam 0.5 mg 0.5 mg Q6H PRN IV AGITATION/ANXIETY Last administered on 23:21; Admin Dose 0.5 MG; Start 10/05/16 at 23:00 Propofol 100 ml @ 2.421 mls/ hr Q12H IV Last administered on 10/08/16 03:23; Admin Dose 7.263 MLS/HR; Start 10/06/16 at 14:30 Fentanyl 100 ml @ 2.5 mls/hr TITRATE IV Last administered on 10/07/16 10:39; Admin Dose 2.5 MLS/HR; Start 10/07/16 at 09:30 Tigecycline/ Sodium Chloride (Tygacil/NS) 100 ml @ 200 mls/hr Q12 IVPB Last administered on 10/07/16 21:08; Admin Dose 200 MLS/HR; Start 10/07/16 at 21:00 Morphine Sulfate (morphine) 2 mg Q4H PRN IV PAIN; Start 10/07/16 at 14:30 KIRAN CASTILLO DO Oct 08, 2016 07:27
[2016-10-08] MEDS ORDERED: POTASSIUM CHLORIDE 250 ML IVPB ONE (07:30)
--- NOTE | 2016-10-08 07:38 | CONS ---
Date/Time of Note Date/Time of Note DATE: 10/08/16 TIME: 07:36 Assessment/Plan Assessment/Plan Additional Assessment/Plan Ventilator setting; AC of 12, tidal volume 500, PEEP of 5, 40% FiO2. Patient currently on propofol at 15 mics per kilogram per minute, fentanyl 25 mics per hour, Levophed 9 mics per minute. Assessment and recommendations; 1. Patient admitted with ileus as well as bilateral pneumonia was successfully extubated and had to be reintubated for worsening lateral pneumonia. 2. Anemia. Continue current treatment. Patient will need to have a tracheostomy and G- tube placement. Prognosis is guarded. Consultation Date/Type/Reason Admit Date/Time Sep 15, 2016 at 21:35 Initial Consult Date 09/21/16 Type of Consultation: Pulmonary/critical care 24 HR Interval Summary Free Text/Dictation Patient condition remains critical. Still requiring full ventilator support. Patient remains mildly hypotensive requiring Levophed for blood pressure maintenance. General exam; elderly woman, orally intubated, awake but mildly sedated. Currently in no distress. Exam/Review of Systems Vital Signs Vitals Vital Signs Date Time Temp Pulse Resp B/P Pulse Ox O2 Delivery O2 Flow Rate FiO2 10/08/16 05:45 78 22 130/69 99 10/08/16 05:21 40 10/08/16 04:00 98.7 10/07/16 19:45 Mechanical Ventilator 10/06/16 05:00 2.0 Intake and Output 10/07/16 10/07/16 10/08/16 15:00 23:00 07:00 Intake Total 1386.00 ml 1165.72 ml 742.5 ml Output Total 940 ml 585 ml 412 ml Balance 446.00 ml 580.72 ml 330.5 ml Exam HEENT exam; supple neck, no JVD. No lymphadenopathy. Midline trachea. Orally intubated. Patient has a multiple carious teeth. Chest exam; diminished breath sounds bilaterally with scattered crackles. S1- S2 audible, no murmurs. Regular rhythm. Abdomen exam; soft, colostomy in place. Bowel sounds audible. Extremity exam; trace edema. G[employer] exam; patient is awake but is sedated. Results Result Diagram: 10/08/16 0400 10/08/16 0400 Results 24 hrs Laboratory Tests Test 10/07/16 14:02 10/08/16 04:00 Sodium Level 146 H 145 H Potassium Level 3.4 L 3.4 L Chloride Level 99 97 Carbon Dioxide Level 37 H 37 H Anion Gap 13 14 Blood Urea Nitrogen 24 H 30 H Creatinine 1.06 H 1.00 Glucose Level 152 153 Calcium Level 7.2 L 7.6 L White Blood Count 15.4 H Red Blood Count 2.43 L Hemoglobin 6.8 *L Hematocrit 21.3 L Mean Corpuscular Volume 87.7 Mean Corpuscular Hemoglobin 28.0 L Mean Corpuscular Hemoglobin Concent 31.9 L Red Cell Distribution Width 22.7 H Platelet Count 225 Mean Platelet Volume 11.5 H Neutrophils % 88.4 H Lymphocytes % 5.9 L Monocytes % 3.6 Eosinophils % 1.1 Basophils % 0.4 Nucleated Red Blood Cells % 0.0 Neutrophils # 13.6 H Lymphocytes # 0.9 Monocytes # 0.6 Eosinophils # 0.2 Basophils # 0.1 Nucleated Red Blood Cells # 0.0 Phosphorus Level 4.9 Magnesium Level 2.1 Medications Medications Current Medications Ondansetron HCl (Zofran Inj) 4 mg Q6H PRN IV NAUSEA AND/OR VOMITING Last administered on 09/26/16 09:23; Admin Dose 4 MG; Start 09/16/16 at 00:30 Acetaminophen (Tylenol Tab) 650 mg Q6H PRN PO PAIN LEVEL 1-3 OR FEVER Last administered on 10/07/16 09:18; Admin Dose 650 MG; Start 09/16/16 at 00:30 Polyethylene Glycol 17 gm 17 gm DAILY PO Last administered on 10/07/16 09:19; Admin Dose 17 GM; Start 09/20/16 at 11:00 Norepinephrine/ Dextrose (Levophed/D5W) 500 ml @ 1.87 mls/hr TITRATE IV Last administered on 10/08/16 03:37; Admin Dose 15 MLS/HR; Start 09/21/16 at 09:00 Acetaminophen/ Hydrocodone Bitart ([place] (5/325)) 1 tab Q4H PRN PO PAIN LEVEL 4 -7 Last administered on 09/28/16 21:20; Admin Dose 1 TAB; Start 09/21/16 at 15: 00 Acetaminophen/ Hydrocodone Bitart ([place] (5/325)) 2 tab Q4H PRN PO PAIN LEVEL 7 -10; Start 09/21/16 at 15:00 Hydromorphone HCl (Dilaudid) 0.5 mg Q2H PRN IV PAIN Last administered on 16:41; Admin Dose 0.5 MG; Start 09/21/16 at 15:00 Hydromorphone HCl (Dilaudid) 1 mg Q2H PRN IV PAIN Last administered on 23:57; Admin Dose 1 MG; Start 09/21/16 at 15:00 Docusate Sodium (Colace) 100 mg BID PRN PO CONSTIPATION; Start 09/21/16 at 15: 00 Enoxaparin Sodium (Lovenox) 40 mg DAILY SC ; Start 09/22/16 at 09:00; Status Future Hold Docusate Sodium (Colace Liquid Cup) 100 mg BID NGT Last administered on 21:08; Admin Dose 100 MG; Start 09/22/16 at 21:00 Pantoprazole (Protonix Iv) 40 mg DAILY@06 IV Last administered on 10/08/16 05: 38; Admin Dose 40 MG; Start 09/26/16 at 06:00 IV Flush (NS 10 ml) 10 ml PRN PRN IV IV PROTOCOL; Start 09/25/16 at 12:00 Spironolactone 50 mg 50 mg DAILY NGT Last administered on 10/07/16 09:18; Admin Dose 50 MG; Start 09/28/16 at 09:00 Dopamine HCl/ Dextrose 250 ml @ 6.053 mls/ hr TITRATE IV Last administered on 09/30/16 04:46; Admin Dose 6.053 MLS/HR; Start 09/29/16 at 11:00 Phenylephrine HCl 40 mg/Dextrose 500 ml @ 75 mls/hr TITRATE IV ; Start at 14:00 Caspofungin/ Sodium Chloride (Cancidas/NS) 250 ml @ 250 mls/hr Q24H IVPB Last administered on 10/07/16 12:41; Admin Dose 250 MLS/HR; Start 10/01/16 at 12:00 Furosemide (Lasix) 20 mg Q6 IV Last administered on 10/08/16 05:38; Admin Dose 20 MG; Start 10/05/16 at 13:00 Lorazepam 0.5 mg 0.5 mg Q6H PRN IV AGITATION/ANXIETY Last administered on 23:21; Admin Dose 0.5 MG; Start 10/05/16 at 23:00 Propofol 100 ml @ 2.421 mls/ hr Q12H IV Last administered on 10/08/16 03:23; Admin Dose 7.263 MLS/HR; Start 10/06/16 at 14:30 Fentanyl 100 ml @ 2.5 mls/hr TITRATE IV Last administered on 10/07/16 10:39; Admin Dose 2.5 MLS/HR; Start 10/07/16 at 09:30 Tigecycline/ Sodium Chloride (Tygacil/NS) 100 ml @ 200 mls/hr Q12 IVPB Last administered on 10/07/16 21:08; Admin Dose 200 MLS/HR; Start 10/07/16 at 21:00 Morphine Sulfate 2 mg 2 mg Q4H PRN IV PAIN; Start 10/07/16 at 14:30 Potassium Chloride (KCl 40 MEQ/250 ML NS) 250 ml @ 62.5 mls/hr ONCE ONCE IVPB ; Start 10/08/16 at 07:30; Stop 10/08/16 at 11:29; Status GERARDO ERIC Oct 08, 2016 07:38
[2016-10-08] MEDS ORDERED: PHYTONADIONE 2 MG in DEXTROSE 5% 50 ML IVPB ONE (09:00)
[2016-10-08] MEDS: TIGECYCLINE 50 MG in SOD CHLORIDE 0.9% 100 ML IVPB SCH ×2 (09:32→20:00)
[2016-10-08] MEDS: SPIRONOLACTONE 50 MG TAB NGT SCH (09:33)
[2016-10-08] MEDS: DOCUSATE SODIUM 10 MG/ML (10ML CUP) NGT SCH ×2 (09:33→19:59)
[2016-10-08] MEDS: POLYETHYLENE GLYCOL 17 GM PACKET PO SCH (09:33)
[2016-10-08] MEDS ORDERED: SOD CHLORIDE 0.9% 100 ML ONE (10:08)
[2016-10-08] MEDS ORDERED: IODIXANOL LOCM 100 ML BTL ONE (10:08)
--- NOTE | 2016-10-08 11:32 | RADRPT ---
PROCEDURE: CT Chest, Abdomen and Pelvis with intravenous contrast CLINICAL INDICATION: Chest and abdominal pain. TECHNIQUE: CT of the chest, abdomen and pelvis was performed on a multidetector scanner following the uncomplicated IV administration of 100 cc of Omnipaque 300. Coronal and sagittal images were re formatted from the axial data set. One or more of the following dose reduction techniques were used : automated exposure control, adjustment of the mA and/or kV according to patient size, use of iter ative reconstruction technique. CTDI = 11.54 mGy. DLP = 840.68 mGy-cm. COMPARISON: CT, 09/30/2016 FINDINGS: CT chest: Patchy bilateral pulmonary consolidation is again noted, mildly increased when compared to the prior CT, suggestive of multilobar pneumonia. Multiple bilateral cavitary nodules are again seen, simila r in appearance to the prior CT. There are mild bilateral pleural effusions. No pneumothorax is id entified. There has been interval placement of a tunneled pleural drainage catheter on the right. The heart size is normal without pericardial effusion. Coronary arterial and aortic atherosclerotic calcifications are present. There is no thoracic aortic aneurysm or dissection. Prominent mediast inal and hilar lymph nodes are again seen, similar in appearance to the prior exam. No axillary or supraclavicular lymphadenopathy is identified. Endotracheal tube tip is in the trachea. Right-side d PICC line tip is in the SVC. CT abdomen and pelvis: Loculated posterolateral perihepatic fluid collection is again seen, measuring approximately 9 x 4 c m (3-96), previously 8 x 3 cm. Benign hepatic cyst is again noted, stable over time. No enhancing hepatic mass is identified. Gallbladder, biliary tree, pancreas, spleen, adrenal glands and kidneys are unremarkable. No urolithiasis or obstructive uropathy is identified. Nasogastric tube tip is within the stomach. There is no abdominal aortic aneurysm or dissection. Aortic vascular calcifications are present. T here is no retroperitoneal lymphadenopathy. The jessika hepatis region is clear. No bowel obstruction or free intraperitoneal air is identified. The patient is status post left hem icolectomy and left lower quadrant colostomy placement. No evidence of diverticulosis, diverticulit is, colitis or appendicitis is seen. Tubular, loculated appearing fluid collection is seen in the r ight perirectal space, measuring approximately 1.3 x 1.1 cm (3-229). Previously seen pelvic pigtail drainage catheter has been removed. Shore catheter balloon is within the urinary bladder. Uterus and adnexa are grossly unremarkable. No pelvic mass or lymphadenopathy is identified. The surrounding osseous structures are remarkable for degenerative enthesopathy of the spine. No os teolytic or osteoblastic lesion is detected. Anasarca is noted, grossly unchanged. IMPRESSION: 1. Patchy bilateral pulmonary consolidation is again noted, mildly increased from the prior CT, con cerning for worsening multilobar pneumonia. 2. Multiple bilateral cavitary nodules are again seen, similar to the prior CT - considerations inc lude septic emboli, atypical (fungal, tuberculosis) infectious process, and possibly neoplasm. 3. Prominent mediastinal and hilar lymph nodes are again seen, grossly stable, more likely reactive , though again neoplastic process is not excluded. 4. Multilocular perihepatic fluid collection is again noted, increased in size, concerning for wors ening perihepatic abscess. Small loculated appearing, tubular shaped fluid collection is seen in th e right perirectal space, further concerning for abscess. 5. The patient is again noted to be status post left hemicolectomy and left lower quadrant colostom y placement. 6. Endotracheal tube, nasogastric tube, right-sided PICC line, and Shore catheter are in appropriat e position. 7. There has been interval placement of a right-sided tunneled pleural drainage catheter. Mild palma ateral pleural effusions are noted, decreased in size from prior exam. RPTAT: EE .Candido Adams MD, Date Time Electronically viewed and signed by .Candido Adams MD, on 10/08/2016 11:32 .R/
--- NOTE | 2016-10-08 12:11 | CONS ---
Date/Time of Note Date/Time of Note DATE: 10/08/16 TIME: 12:07 Assessment/Plan Assessment/Plan Additional Assessment/Plan Patient remains in the intensive care unit reintubate on 40% FiO2, currently sedated on pressor support. He is scheduled to have a PEG and trach, long-term prognosis per . Consultation Date/Type/Reason Admit Date/Time Sep 15, 2016 at 21:35 Initial Consult Date 09/21/16 Type of Consultation: Pulmonary/critical care Exam/Review of Systems Vital Signs Vitals Vital Signs Date Time Temp Pulse Resp B/P Pulse Ox O2 Delivery O2 Flow Rate FiO2 10/08/16 11:30 87 12 98 40 10/08/16 05:45 130/69 10/08/16 04:00 98.7 10/07/16 19:45 Mechanical Ventilator 10/06/16 05:00 2.0 Intake and Output 10/07/16 10/07/16 10/08/16 15:00 23:00 07:00 Intake Total 1386.00 ml 1165.72 ml 769.133 ml Output Total 940 ml 585 ml 412 ml Balance 446.00 ml 580.72 ml 357.133 ml Results Result Diagram: 10/08/16 0400 10/08/16 0400 Results 24 hrs Laboratory Tests Test 10/07/16 14:02 10/08/16 04:00 Sodium Level 146 H 145 H Potassium Level 3.4 L 3.4 L Chloride Level 99 97 Carbon Dioxide Level 37 H 37 H Anion Gap 13 14 Blood Urea Nitrogen 24 H 30 H Creatinine 1.06 H 1.00 Glucose Level 152 153 Calcium Level 7.2 L 7.6 L White Blood Count 15.4 H Red Blood Count 2.43 L Hemoglobin 6.8 *L Hematocrit 21.3 L Mean Corpuscular Volume 87.7 Mean Corpuscular Hemoglobin 28.0 L Mean Corpuscular Hemoglobin Concent 31.9 L Red Cell Distribution Width 22.7 H Platelet Count 225 Mean Platelet Volume 11.5 H Neutrophils % 88.4 H Lymphocytes % 5.9 L Monocytes % 3.6 Eosinophils % 1.1 Basophils % 0.4 Nucleated Red Blood Cells % 0.0 Neutrophils # 13.6 H Lymphocytes # 0.9 Monocytes # 0.6 Eosinophils # 0.2 Basophils # 0.1 Nucleated Red Blood Cells # 0.0 Phosphorus Level 4.9 Magnesium Level 2.1 Medications Medications Current Medications Ondansetron HCl (Zofran Inj) 4 mg Q6H PRN IV NAUSEA AND/OR VOMITING Last administered on 09/26/16 09:23; Admin Dose 4 MG; Start 09/16/16 at 00:30 Acetaminophen (Tylenol Tab) 650 mg Q6H PRN PO PAIN LEVEL 1-3 OR FEVER Last administered on 10/07/16 09:18; Admin Dose 650 MG; Start 09/16/16 at 00:30 Polyethylene Glycol 17 gm 17 gm DAILY PO Last administered on 10/08/16 09:33; Admin Dose 17 GM; Start 09/20/16 at 11:00 Norepinephrine/ Dextrose (Levophed/D5W) 500 ml @ 1.87 mls/hr TITRATE IV Last administered on 10/08/16 03:37; Admin Dose 15 MLS/HR; Start 09/21/16 at 09:00 Acetaminophen/ Hydrocodone Bitart ([place] (5/325)) 1 tab Q4H PRN PO PAIN LEVEL 4 -7 Last administered on 09/28/16 21:20; Admin Dose 1 TAB; Start 09/21/16 at 15: 00 Acetaminophen/ Hydrocodone Bitart ([place] (5/325)) 2 tab Q4H PRN PO PAIN LEVEL 7 -10; Start 09/21/16 at 15:00 Hydromorphone HCl (Dilaudid) 0.5 mg Q2H PRN IV PAIN Last administered on 16:41; Admin Dose 0.5 MG; Start 09/21/16 at 15:00 Hydromorphone HCl (Dilaudid) 1 mg Q2H PRN IV PAIN Last administered on 23:57; Admin Dose 1 MG; Start 09/21/16 at 15:00 Docusate Sodium (Colace) 100 mg BID PRN PO CONSTIPATION; Start 09/21/16 at 15: 00 Enoxaparin Sodium (Lovenox) 40 mg DAILY SC ; Start 09/22/16 at 09:00; Status Future Hold Docusate Sodium (Colace Liquid Cup) 100 mg BID NGT Last administered on 09:33; Admin Dose 100 MG; Start 09/22/16 at 21:00 Pantoprazole (Protonix Iv) 40 mg DAILY@06 IV Last administered on 10/08/16 05: 38; Admin Dose 40 MG; Start 09/26/16 at 06:00 IV Flush (NS 10 ml) 10 ml PRN PRN IV IV PROTOCOL; Start 09/25/16 at 12:00 Spironolactone 50 mg 50 mg DAILY NGT Last administered on 10/08/16 09:33; Admin Dose 50 MG; Start 09/28/16 at 09:00 Dopamine HCl/ Dextrose 250 ml @ 6.053 mls/ hr TITRATE IV Last administered on 09/30/16 04:46; Admin Dose 6.053 MLS/HR; Start 09/29/16 at 11:00 Phenylephrine HCl 40 mg/Dextrose 500 ml @ 75 mls/hr TITRATE IV ; Start at 14:00 Caspofungin/ Sodium Chloride (Cancidas/NS) 250 ml @ 250 mls/hr Q24H IVPB Last administered on 10/07/16 12:41; Admin Dose 250 MLS/HR; Start 10/01/16 at 12:00 Furosemide (Lasix) 20 mg Q6 IV Last administered on 10/08/16 05:38; Admin Dose 20 MG; Start 10/05/16 at 13:00 Lorazepam 0.5 mg 0.5 mg Q6H PRN IV AGITATION/ANXIETY Last administered on 23:21; Admin Dose 0.5 MG; Start 10/05/16 at 23:00 Propofol 100 ml @ 2.421 mls/ hr Q12H IV Last administered on 10/08/16 03:23; Admin Dose 7.263 MLS/HR; Start 10/06/16 at 14:30 Fentanyl 100 ml @ 2.5 mls/hr TITRATE IV Last administered on 10/07/16 10:39; Admin Dose 2.5 MLS/HR; Start 10/07/16 at 09:30 Tigecycline/ Sodium Chloride (Tygacil/NS) 100 ml @ 200 mls/hr Q12 IVPB Last administered on 10/08/16 09:32; Admin Dose 200 MLS/HR; Start 10/07/16 at 21:00 Morphine Sulfate (morphine) 2 mg Q4H PRN IV PAIN; Start 10/07/16 at 14:30 YANETH VIDAL Oct 08, 2016 12:11
--- NOTE | 2016-10-08 12:41 | CONS ---
Date/Time of Note Date/Time of Note DATE: 10/08/16 TIME: 12:33 Assessment/Plan Assessment/Plan Additional Assessment/Plan Respiratory failure Currently on FiO2 of 40% This is a 70-year-old female admitted with a perforated colon and contained abscess underwent a drainage procedure on further colonic procedures patient is currently in the intensive care unit unable to come off the ventilator secondary to multiple medical problems Patient was extubated and had to be input intubated again has been treated for septic shock lactic acidosis peritonitis currently has an end colostomy Helio pouch and has undergone colon resection patient also has a right-sided chest tube for a pneumothorax She was reintubated again 2 days ago plan to proceed with tracheostomy after consent is available Consultation Date/Type/Reason Admit Date/Time Sep 15, 2016 at 21:35 Date of Consultation: Oct 08, 2016 Reason for Consultation Evaluation for tracheostomy Hx of Present Illness This is a 70-year-old female admitted with a perforated colon and contained abscess underwent a drainage procedure on further colonic procedures patient is currently in the intensive care unit unable to come off the ventilator secondary to multiple medical problems Patient was extubated and had to be input intubated again has been treated for septic shock lactic acidosis peritonitis currently has an end colostomy Helio pouch and has undergone colon resection patient also has a right-sided chest tube for a pneumothorax She was reintubated again 2 days ago Constitutional: disoriented Gastrointestinal: pain Psychological: no complaints Past Medical History Medical History: other ([employer]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) Past Surgical History This is a 70-year-old female admitted with a perforated colon and contained abscess underwent a drainage procedure on further colonic procedures patient is currently in the intensive care unit unable to come off the ventilator secondary to multiple medical problems Patient was extubated and had to be input intubated again has been treated for septic shock lactic acidosis peritonitis currently has an end colostomy Helio pouch and has undergone colon resection patient also has a right-sided chest tube for a pneumothorax She was reintubated again 2 days ago Family History Significant Family History: no pertinent family hx Social History Alcohol Use: none Smoking Status: Unknown if ever smoked Drug Use: none Exam/Review of Systems Vital Signs Vitals Vital Signs Date Time Temp Pulse Resp B/P Pulse Ox O2 Delivery O2 Flow Rate FiO2 10/08/16 11:30 87 12 98 40 10/08/16 05:45 130/69 10/08/16 04:00 98.7 7/31/17 19:45 Mechanical Ventilator 10/06/16 05:00 2.0 Intake and Output 10/07/16 10/07/16 10/08/16 15:00 23:00 07:00 Intake Total 1386.00 ml 1165.72 ml 769.133 ml Output Total 940 ml 585 ml 412 ml Balance 446.00 ml 580.72 ml 357.133 ml Exam Eyes: EOMI, PERRL, nl conjunctiva, nl lids, nl sclera ENMT: nl external ears & nose, nl lips & teeth, nl nasal mucosa & septum Neck: non-tender, supple Respiratory: clear to auscultation, normal air movement Cardiovascular: nl pulses, regular rate and rhythm Results Result Diagram: 10/08/16 0400 10/08/16 0400 Results 24 hrs Laboratory Tests Test 10/07/16 14:02 10/08/16 04:00 Sodium Level 146 H 145 H Potassium Level 3.4 L 3.4 L Chloride Level 99 97 Carbon Dioxide Level 37 H 37 H Anion Gap 13 14 Blood Urea Nitrogen 24 H 30 H Creatinine 1.06 H 1.00 Glucose Level 152 153 Calcium Level 7.2 L 7.6 L White Blood Count 15.4 H Red Blood Count 2.43 L Hemoglobin 6.8 *L Hematocrit 21.3 L Mean Corpuscular Volume 87.7 Mean Corpuscular Hemoglobin 28.0 L Mean Corpuscular Hemoglobin Concent 31.9 L Red Cell Distribution Width 22.7 H Platelet Count 225 Mean Platelet Volume 11.5 H Neutrophils % 88.4 H Lymphocytes % 5.9 L Monocytes % 3.6 Eosinophils % 1.1 Basophils % 0.4 Nucleated Red Blood Cells % 0.0 Neutrophils # 13.6 H Lymphocytes # 0.9 Monocytes # 0.6 Eosinophils # 0.2 Basophils # 0.1 Nucleated Red Blood Cells # 0.0 Phosphorus Level 4.9 Magnesium Level 2.1 Medications Medications Current Medications Ondansetron HCl (Zofran Inj) 4 mg Q6H PRN IV NAUSEA AND/OR VOMITING Last administered on 09/26/16 09:23; Admin Dose 4 MG; Start 09/16/16 at 00:30 Acetaminophen (Tylenol Tab) 650 mg Q6H PRN PO PAIN LEVEL 1-3 OR FEVER Last administered on 10/07/16 09:18; Admin Dose 650 MG; Start 09/16/16 at 00:30 Polyethylene Glycol 17 gm 17 gm DAILY PO Last administered on 10/08/16 09:33; Admin Dose 17 GM; Start 09/20/16 at 11:00 Norepinephrine/ Dextrose (Levophed/D5W) 500 ml @ 1.87 mls/hr TITRATE IV Last administered on 10/08/16 03:37; Admin Dose 15 MLS/HR; Start 09/21/16 at 09:00 Acetaminophen/ Hydrocodone Bitart ([place] (5/325)) 1 tab Q4H PRN PO PAIN LEVEL 4 -7 Last administered on 09/28/16 21:20; Admin Dose 1 TAB; Start 09/21/16 at 15: 00 Acetaminophen/ Hydrocodone Bitart ([place] (5/325)) 2 tab Q4H PRN PO PAIN LEVEL 7 -10; Start 09/21/16 at 15:00 Hydromorphone HCl (Dilaudid) 0.5 mg Q2H PRN IV PAIN Last administered on 16:41; Admin Dose 0.5 MG; Start 09/21/16 at 15:00 Hydromorphone HCl (Dilaudid) 1 mg Q2H PRN IV PAIN Last administered on 23:57; Admin Dose 1 MG; Start 09/21/16 at 15:00 Docusate Sodium (Colace) 100 mg BID PRN PO CONSTIPATION; Start 09/21/16 at 15: 00 Enoxaparin Sodium (Lovenox) 40 mg DAILY SC ; Start 09/22/16 at 09:00; Status Future Hold Docusate Sodium (Colace Liquid Cup) 100 mg BID NGT Last administered on 09:33; Admin Dose 100 MG; Start 09/22/16 at 21:00 Pantoprazole (Protonix Iv) 40 mg DAILY@06 IV Last administered on 10/08/16 05: 38; Admin Dose 40 MG; Start 09/26/16 at 06:00 IV Flush (NS 10 ml) 10 ml PRN PRN IV IV PROTOCOL; Start 09/25/16 at 12:00 Spironolactone 50 mg 50 mg DAILY NGT Last administered on 10/08/16 09:33; Admin Dose 50 MG; Start 09/28/16 at 09:00 Dopamine HCl/ Dextrose 250 ml @ 6.053 mls/ hr TITRATE IV Last administered on 09/30/16 04:46; Admin Dose 6.053 MLS/HR; Start 09/29/16 at 11:00 Phenylephrine HCl 40 mg/Dextrose 500 ml @ 75 mls/hr TITRATE IV ; Start at 14:00 Caspofungin/ Sodium Chloride (Cancidas/NS) 250 ml @ 250 mls/hr Q24H IVPB Last administered on 10/07/16 12:41; Admin Dose 250 MLS/HR; Start 10/01/16 at 12:00 Furosemide (Lasix) 20 mg Q6 IV Last administered on 10/08/16 05:38; Admin Dose 20 MG; Start 10/05/16 at 13:00 Lorazepam 0.5 mg 0.5 mg Q6H PRN IV AGITATION/ANXIETY Last administered on 23:21; Admin Dose 0.5 MG; Start 10/05/16 at 23:00 Propofol 100 ml @ 2.421 mls/ hr Q12H IV Last administered on 10/08/16 03:23; Admin Dose 7.263 MLS/HR; Start 10/06/16 at 14:30 Fentanyl 100 ml @ 2.5 mls/hr TITRATE IV Last administered on 10/07/16 10:39; Admin Dose 2.5 MLS/HR; Start 10/07/16 at 09:30 Tigecycline/ Sodium Chloride (Tygacil/NS) 100 ml @ 200 mls/hr Q12 IVPB Last administered on 10/08/16 09:32; Admin Dose 200 MLS/HR; Start 10/07/16 at 21:00 Morphine Sulfate (morphine) 2 mg Q4H PRN IV PAIN; Start 10/07/16 at 14:30 GIL PINEDA MD Oct 08, 2016 12:41
[2016-10-08] MEDS: CASPOFUNGIN 50 MG in SOD CHLORIDE 0.9% 250 ML IVPB SCH (12:47)
[2016-10-08] MEDS: ACETAMINOPHEN 325 MG TAB PO PRN (12:47)
--- NOTE | 2016-10-08 15:17 | PN ---
Date/Time of Note Date/Time of Note DATE: 10/08/16 TIME: 15:16 Assessment/Plan VTE Prophylaxis VTE Prophylaxis Intervention: SCD's Assessment/Plan Chief Complaint/Hosp Course 1. Sigmoid colon abscess, likely a complication of diverticulitis - s/p sigmoid colectomy with end colostomy (Reid's procedure) and adhesiolysis on 09/21/16 - continue antibiotics. Follow-up surgery recommendation. ID is on board. 2. Status post septic shock -Continue antibiotics and IV fluid. -Pressors as needed. 3. Ventilator dependent respiratory failure: Status post re-extubation few days ago. -Plan is for tracheostomy 4. Left pleural effusion: Status post thoracentesis, complicated with pneumothorax status post placement of a chest tube. 4. History of ICH, s/p ventriculoperitoneal shunt placement: Neurosurg on board 5. Paroxysmal A. fib: Now in sinus rhythm status post amiodarone and dopamine. Cardiology on board, appreciate recommendation 6. Acute renal insufficiency: Resolved. Appreciate nephrology input. 7. s/p NSTEMI: Likely secondary to septic shock. Cardiology on board. 8. Volume overload state: Continue diuresis. Patient still has bilateral lower extremity pitting edema. 9. Anemia, likely a combination of iron deficiency and anemia of chronic disease: Previous notes mention iron replacement. Given patient is extubated, will start her on ferrous sulfate once she passes swallow evaluation. She did fail swallow evaluation yesterday. will consider blood transfusion 10. Hypokalemia: Replete 11. Dysphagia Plan is for PEG tube placement Prophylaxis: SCDs Problems: Subjective 24 Hr Interval Summary Subjective hx not possible: pt non-verbal Exam/Review of Systems Vital Signs Vitals Vital Signs Date Time Temp Pulse Resp B/P Pulse Ox O2 Delivery O2 Flow Rate FiO2 10/08/16 12:00 90 10/08/16 11:30 12 98 40 10/08/16 05:45 130/69 10/08/16 04:00 98.7 10/07/16 19:45 Mechanical Ventilator 10/06/16 05:00 2.0 Intake and Output 10/07/16 10/07/16 10/08/16 15:00 23:00 07:00 Intake Total 1386.00 ml 1165.72 ml 769.133 ml Output Total 940 ml 585 ml 412 ml Balance 446.00 ml 580.72 ml 357.133 ml Exam Constitutional: non-verbal ENMT: intubated Respiratory: clear to auscultation Cardiovascular: regular rate and rhythm Gastrointestinal: soft, No distended Musculoskeletal: nl extremities to inspection Results Result Diagram: 10/08/16 0400 10/08/16 0400 Results 24 hrs Laboratory Tests Test 10/08/16 04:00 White Blood Count 15.4 H Red Blood Count 2.43 L Hemoglobin 6.8 *L Hematocrit 21.3 L Mean Corpuscular Volume 87.7 Mean Corpuscular Hemoglobin 28.0 L Mean Corpuscular Hemoglobin Concent 31.9 L Red Cell Distribution Width 22.7 H Platelet Count 225 Mean Platelet Volume 11.5 H Neutrophils % 88.4 H Lymphocytes % 5.9 L Monocytes % 3.6 Eosinophils % 1.1 Basophils % 0.4 Nucleated Red Blood Cells % 0.0 Neutrophils # 13.6 H Lymphocytes # 0.9 Monocytes # 0.6 Eosinophils # 0.2 Basophils # 0.1 Nucleated Red Blood Cells # 0.0 Sodium Level 145 H Potassium Level 3.4 L Chloride Level 97 Carbon Dioxide Level 37 H Anion Gap 14 Blood Urea Nitrogen 30 H Creatinine 1.00 Glucose Level 153 Calcium Level 7.6 L Phosphorus Level 4.9 Magnesium Level 2.1 Medications Medications Current Medications Ondansetron HCl (Zofran Inj) 4 mg Q6H PRN IV NAUSEA AND/OR VOMITING Last administered on 09/26/16 09:23; Admin Dose 4 MG; Start 09/16/16 at 00:30 Acetaminophen (Tylenol Tab) 650 mg Q6H PRN PO PAIN LEVEL 1-3 OR FEVER Last administered on 10/08/16 12:47; Admin Dose 650 MG; Start 09/16/16 at 00:30 Polyethylene Glycol 17 gm 17 gm DAILY PO Last administered on 10/08/16 09:33; Admin Dose 17 GM; Start 09/20/16 at 11:00 Norepinephrine/ Dextrose (Levophed/D5W) 500 ml @ 1.87 mls/hr TITRATE IV Last administered on 10/08/16 03:37; Admin Dose 15 MLS/HR; Start 09/21/16 at 09:00 Acetaminophen/ Hydrocodone Bitart ([place] (5/325)) 1 tab Q4H PRN PO PAIN LEVEL 4 -7 Last administered on 09/28/16 21:20; Admin Dose 1 TAB; Start 09/21/16 at 15: 00 Acetaminophen/ Hydrocodone Bitart ([place] (5/325)) 2 tab Q4H PRN PO PAIN LEVEL 7 -10; Start 09/21/16 at 15:00 Hydromorphone HCl (Dilaudid) 0.5 mg Q2H PRN IV PAIN Last administered on 16:41; Admin Dose 0.5 MG; Start 09/21/16 at 15:00 Hydromorphone HCl (Dilaudid) 1 mg Q2H PRN IV PAIN Last administered on 23:57; Admin Dose 1 MG; Start 09/21/16 at 15:00 Docusate Sodium (Colace) 100 mg BID PRN PO CONSTIPATION; Start 09/21/16 at 15: 00 Enoxaparin Sodium (Lovenox) 40 mg DAILY SC ; Start 09/22/16 at 09:00; Status Future Hold Docusate Sodium (Colace Liquid Cup) 100 mg BID NGT Last administered on 09:33; Admin Dose 100 MG; Start 09/22/16 at 21:00 Pantoprazole (Protonix Iv) 40 mg DAILY@06 IV Last administered on 10/08/16 05: 38; Admin Dose 40 MG; Start 09/26/16 at 06:00 IV Flush (NS 10 ml) 10 ml PRN PRN IV IV PROTOCOL; Start 09/25/16 at 12:00 Spironolactone 50 mg 50 mg DAILY NGT Last administered on 10/08/16 09:33; Admin Dose 50 MG; Start 09/28/16 at 09:00 Dopamine HCl/ Dextrose 250 ml @ 6.053 mls/ hr TITRATE IV Last administered on 09/30/16 04:46; Admin Dose 6.053 MLS/HR; Start 09/29/16 at 11:00 Phenylephrine HCl 40 mg/Dextrose 500 ml @ 75 mls/hr TITRATE IV ; Start at 14:00 Caspofungin/ Sodium Chloride (Cancidas/NS) 250 ml @ 250 mls/hr Q24H IVPB Last administered on 10/08/16 12:47; Admin Dose 250 MLS/HR; Start 10/01/16 at 12:00 Furosemide (Lasix) 20 mg Q6 IV Last administered on 10/08/16 12:47; Admin Dose 20 MG; Start 10/05/16 at 13:00 Lorazepam 0.5 mg 0.5 mg Q6H PRN IV AGITATION/ANXIETY Last administered on 23:21; Admin Dose 0.5 MG; Start 10/05/16 at 23:00 Propofol 100 ml @ 2.421 mls/ hr Q12H IV Last administered on 10/08/16 03:23; Admin Dose 7.263 MLS/HR; Start 10/06/16 at 14:30 Fentanyl 100 ml @ 2.5 mls/hr TITRATE IV Last administered on 10/07/16 10:39; Admin Dose 2.5 MLS/HR; Start 10/07/16 at 09:30 Tigecycline/ Sodium Chloride (Tygacil/NS) 100 ml @ 200 mls/hr Q12 IVPB Last administered on 10/08/16 09:32; Admin Dose 200 MLS/HR; Start 10/07/16 at 21:00 Morphine Sulfate (morphine) 2 mg Q4H PRN IV PAIN; Start 10/07/16 at 14:30 DALE RODARTE Oct 08, 2016 15:17
--- NOTE | 2016-10-08 15:31 | PN ---
Date/Time of Note Date/Time of Note DATE: 10/08/16 TIME: 08:27 Assessment/Plan Assessment/Plan Assessment/Plan [facility] Progress Note Date of Service: 10/08/2016 Place of service: [facility] ICU Today's Assessment & Plan: Overall stable. Abdomen continues to remain benign. Awaiting results of the CT of the chest and abdomen and pelvis that I ordered this morning. Hemoglobin drop noted and stool appears to be slightly dark. Guaiac has been sent. Also waiting tracheostomy placement as well as PEG. Discussed in detail with Mr. Yanez and answered all questions. He appeared to understand and agreed with all the plans. No indication for acute surgical intervention. With above assessment, I recommended the following for today: 1. Continue aggressive medical management with intubation; CODE STATUS at this point is DO NOT RESUSCITATE but with intubation being okay and no chest compressions or electric shocks. Chemical code is okay. 2. Continue wound VAC; dressing change 3 times a week 3. Cont aggressive pulmonary toilet 4. Cont Lasix as allowed by her clinical condition 5. Labs in am 6. Please maintain multidisciplinary discussion regarding fluid intake, CODE STATUS, and other major medical decisions since this is a fragile surgical patient with recent sepsis and shock; I changed code status to full code, but without chest compression or electric shock 7. Targeted antimicrobial therapy to culture results 8. PT OT 9. Management of SOUND CUTTER shunt per Dr. Miner 10. Continue NG gastric feeds with plans for PEG placement later this week 11. Keep in the ICU 12. Social work and case management to please start working on disposition planning (rehab versus SNF) 13. Please note: Guille, who is the patient's decision maker currently, would like Mr. Yanez (patient's ex-) to still be involved in her care. He should still have full access to the hospital and patient according to Guille. 14. Tracheostomy per Dr. Jones 15. GI consultation both for possible GI bleeding as well as for PEG placement 16. CT chest, abdomen, and pelvis 17. 1 unit packed red blood cell transfusion with hemoglobin check afterwards 18. Hemoglobin check at 1800 19. Vitamin K 2 mg IV 1 Thank you again for your great care of this very pleasant patient and wonderful family. If there are any questions, please feel free to call me at [phone]. Nature of presenting problem: High severity Please note that, given the extensive number of diagnoses or management options , the extensive amount and/or complexity of data needed to be reviewed, and I risk of complications and/or morbidity or mortality, this qualifies as high complexity type of decision-making. Disclaimer: Inadvertent spelling and grammatical errors are likely due to EHR/ dictation software use and do not reflect on the quality of delivered patient care. Also, please note that the electronic time recorded on this node does not necessarily reflect the actual time of the visit. Updated Clinical Summary: A very pleasant 70-year-old lady without significant known past medical history other than a SOUND CUTTER shunt placement many years ago which she did not remember or report, presenting with what appears to be a sigmoid colon abscess or pericolonic abscess, which seemed to be a complication of diverticulitis. S/p IR drainage 09/09/16 with removal of 20 cc pus and placement of a 10 Fr. pigtail catheter at [facility]. D/c home 09/12/16. Re-presented to [facility] 09/15/16 after being diverted from [facility] (due to internal disaster diversion) where CT was done showing adequate placement of the percutaneous drain near the sigmoid colon and decompressed sigmoid colon abscess, no obvious free air or significant spillage of stool in the abdominal cavity, and incidental finding of tail of the SOUND CUTTER shunt in the pelvis (new from right upper quadrant position of the same drain on the CT scan at [facility]). Transfer to [facility] 09/15/2016 for further cares. S/p upsizing of drain to 12 Fr pigtail on 09/17/16 (communication with colon demonstrated; no obvious free communication to rest of peritoneal space). Patient decompensated in the early hours of the morning on 09/21/2016 and had to be transferred to the intensive care unit with need for endotracheal tube intubation, central line placement, and resuscitation for treatment of shock with lactic acidosis and evidence of peritonitis and free air on the new chest, abdomen, and pelvis CT scan. S/p a rather challenging sigmoid colectomy with performance of end colostomy (Reid's procedure), takedown of splenic flexure of the colon, lysis of adhesions (60 minutes), and abdominal lavage at [facility] on 09/21/16; diagnosis of colon ischemia (distal transverse colon and descending colon) during reentry through recent laparotomy incision with exploration of abdominal cavity, takedown of colostomy, completion left hemicolectomy with resection of distal transverse colon, lysis of adhesions, abdominal lavage, performance of an end colostomy [facility] 09/24/16. Extubated post op evening of 09/25/16. Decompensation with intubation and restart of pressors . Right-sided pneumothorax after drainage of right pleural effusion requiring chest tube placement 09/30/2016. Extubated 10/03/2016. Decompensation with reintubation 10/06/16. Comorbidities: 1. Perforated sigmoid colon (see below) 2. Status post ventriculoperitoneal shunt placement. 3. Status post prior hysterectomy and bilateral salpingo-oophorectomy through Pfannenstiel incision 4. S/p IR drainage 09/09/16 with removal of 20 cc pus and placement of a 10 Fr. pigtail catheter at [facility]. 5. Readmission to [facility] 09/15/16 with upsizing of drain to 12 Fr pigtail on (communication with colon demonstrated; no obvious free communication to rest of peritoneal space). Septic shock with multiorgan failure 09/21/2016 requiring ICU admission with intubation and pressors. 6. S/p a rather challenging sigmoid colectomy with performance of end colostomy (Reid's procedure), takedown of splenic flexure of the colon, lysis of adhesions (60 minutes), and abdominal lavage at [facility] on 09/21/16 7. Colon ischemia (distal transverse colon and descending colon) 8. S/p reentry through recent laparotomy incision with exploration of abdominal cavity, takedown of colostomy, completion left hemicolectomy with resection of distal transverse colon, lysis of adhesions, abdominal lavage, performance of an end colostomy [facility] 09/24/16 Subjective: Remain intubated without major events. Lethargic and not communicative. Hemoglobin noted to be low and stool output appears to be slightly darker than before. Objective: Vitals: See below I's & O's: See below Exam: GENERAL: On exam, the patient was lying in bed and appeared to be breathing shallow and tachypneic. No obvious acute distress. ABDOMEN: Soft, nontender and nondistended. Incision dressings are clean, dry and intact without any obvious evidence of underlying erythema, edema, discharge , or hernia. Surgical drain ss without any evidence of enteric contents. There are no peritoneal signs or guarding. Ostomy appears to be viable and productive with stool and air in the bag. SKIN: Skin appears to be pink and feels warm to touch. NEUROLOGIC: Patient appears to be awake, alert, and follows simple commands. Voice is stronger and able to state more complete sentences. Labs: See below Exam/Review of Systems Vital Signs Vitals Vital Signs Date Time Temp Pulse Resp B/P Pulse Ox O2 Delivery O2 Flow Rate FiO2 10/08/16 12:00 90 10/08/16 11:30 12 98 40 10/08/16 05:45 130/69 10/08/16 04:00 98.7 10/07/16 19:45 Mechanical Ventilator 10/06/16 05:00 2.0 Intake and Output 10/07/16 10/07/16 10/08/16 15:00 23:00 07:00 Intake Total 1386.00 ml 1165.72 ml 769.133 ml Output Total 940 ml 585 ml 412 ml Balance 446.00 ml 580.72 ml 357.133 ml Results Result Diagram: 10/08/16 0400 10/08/16 0400 ALEXSANDER DUARTE M.D. Oct 08, 2016 15:31
--- NOTE | 2016-10-08 18:49 | CONS ---
Date/Time of Note Date/Time of Note DATE: 10/08/16 TIME: 18:44 Assessment/Plan Assessment/Plan Chief Complaint/Hosp Course ID PROGRESS NOTE TOTAL ABX DAY # // CURRENT ABX ==> TYGACIL #2 + Cancidas #9 => VANCO IV + MERREM + FLAGYL #8-> DC'd 10/07 => HOSPITAL EVENTS: * s/p 09/21/16 Sigmoid colectomy with performance of end colostomy (Reid's procedure), w/Lysis of adhesions. * s/p 09/21/16 Externalization of WELDER/FABRICATOR shunt. INDICATION: Possible WELDER/FABRICATOR shunt infection, ABD abscess * Extubated 10/03 * RE-intubated 09/29 * s/p Left THORA 10/01 * Extubated 10/03 * Re-Intubated 10/06 24H INTERVAL SUMMARY * No fevers today, WBC down s/p 10/07 Spiking fevers > 101.5 -> Blood, urine, sputum sent 10/07 * Back on pressors with worsening respiratory status failed BIPAP and now re- intubated. * No fevers, WBC rising today after steady downtrend 19.4--> 18.4--> 17.7--> 15.0 --> 10.6 Normalized (10/05)--> 15.8 (10/06)-> 14.4 * CT 10/08/16 IMPRESSION: * 1. Patchy bilateral pulmonary consolidation is again noted, mildly increased from the prior CT, concerning for worsening multilobar pneumonia. * 2. Multiple bilateral cavitary nodules are again seen, similar to the prior CT - considerations include septic emboli, atypical (fungal, tuberculosis) infectious process, and possibly neoplasm. * 3. Prominent mediastinal and hilar lymph nodes are again seen, grossly stable, more likely reactive, though again neoplastic process is not excluded. * 4. Multilocular perihepatic fluid collection is again noted, increased in size, concerning for worsening perihepatic abscess. Small loculated appearing, tubular shaped fluid collection is seen in the right perirectal space, further concerning for abscess. * 5. The patient is again noted to be status post left hemicolectomy and left lower quadrant colostomy placement. * 6. Endotracheal tube, nasogastric tube, right-sided PICC line, and Shore catheter are in appropriate position. * 7. There has been interval placement of a right-sided tunneled pleural drainage catheter. Mild bilateral pleural effusions are noted, decreased in size from prior exam. EXAM: 70 yo F ->obtunted on the Vent HEENT:Orally intubated -> Vent Neck: trachea midline. Heart: S1, S2 CXT: chest rise symmetrical breath sounds clear, diminished basis. ABD: Soft, Wound Vac + Colostomy Extremities without cyanosis, (+) edema x4 = dependent edema ID ASSESSMENT 70 yo F w/PMHx ICH and WELDER/FABRICATOR shunt admit with: 1. s/p Sepsis w/shock , s/p lactic acidosis => Back on pressors 10/06/16 * (+)Leukocytosis * (+)Fevers >101.5 10/07 2. s/p Perforated sigmoid colon w/abscess: POD#-> s/p 09/21/16 Sigmoid colectomy with performance of end colostomy (Reid's procedure), w/Lysis of adhesions. * MICRO: 09/23/16 BODY FLUID CULTURE Final Organism 1 ENTEROCOCCUS SPECIES Organism 2 COAGULASE NEGATIVE STAPH Organism 3 ALPHA HEMOLYTIC STREP SPP . VIRIDANS GROUP 4. ABD WOUND => (+)VAC 5. Acute respiratory failure -> orally RE-intubated 10/06 6. CHF w/elevated BNP => (+)Anasarca w/Pleural effusions s/p CT drain 09/30 7. HCAP => RESOLVING * Sputum from ETT grew yeast/fungus => CONTAMINANT * CT 09/30 THORA BODY FLUID CULTURE no growth * AFB SMEAR (-) x 2 Final ACID FAST BACILLI NONE SEEN 8. Pancytopenia - sepsis 9. Coagulopathy w/thrombocytopenia 10. (+)Troponin elevation likely type II in the setting of septic shock. Echo from 09/18 showed normal EF and no significant valvular disease. 11. POD # ->S/P 09/21/16 Externalization of WELDER/FABRICATOR shunt. INDICATION: Possible WELDER/FABRICATOR shunt infection, hx of Hydrocephalus, WELDER/FABRICATOR shunt, abdominal abscess (-)MRSA Nares screen INVASIVES: PICC (09/25/16) , ETT, NGT, VPS, FC, intra-abdominal drainage catheters ABX ALLERGY: PCN CURRENT ABX: ==> TYGACIL #2 + Cancidas #9 => VANCO IV + MERREM + FLAGYL #8-> DC'd 10/07 ID RECOMMENDATIONS NOTE: Sputum from ETT grew fungus == consistent with contaminant 1. Let's change up the ABX for concern FEVERS while on current ABX * Patient continues to be septic despite lengthy course of current ABX=> REPEAT CT shows worsening bilateral PNA * Tygacil has excellent penetration into the bowel/gut/skin-soft tissue/lungs. REFERENCE Tigecycline (Tygacil): the first in the glycylcycline class of antibiotics https://www.ncbi.nlm.nih.gov/pmc/articles/BAK2894410/ As shown in Table 2, tigecycline has a broad spectrum of activity against many gram-positive, gram-negative, and anaerobic organisms (1, 3, 4, 9). ... Tigecycline and minocycline cover Acinetobacter species (10). Tigecycline is less active than minocycline against Stenotrophomonas maltophilia and Burkholderia cepacia. Table 2 MIC90 of tigecycline and the tetracyclines in vitro* Organism Tigecycline Tetracycline Doxycycline Minocycline Gram-positive Staphylococcus aureus, methicillin susceptible 0.120.5 1 0.5 0.12 Staphylococcus aureus, methicillin resistant 0.255 32 2 2 Staphylococcus epidermidis, methicillin susceptible 0.5 2 NA 0.5 Staphylococcus epidermidis, methicillin resistant 0.5 >8 NA 4 Streptococcus pneumoniae, penicillin sensitive 0.060.125 32 8 8 Streptococcus pneumoniae, penicillin intermediate 0.06 64 8 16 Streptococcus pneumoniae, penicillin resistant 0.060.125 64 8 16 Streptococcus pyogenes 0.06 4 0.5 0.25 Enterococcus faecalis 0.120.25 128 16 32 Enterococcus faecium 0.120.25 64 16 16 Gram-negative Acinetobacter spp. 2 >32 NA 1 Burkholderia cepacia 32 4 NA 2 Citrobacter freundii 0.52 8 NA 8 Enterobacter aerogenes 1 4 NA 2 Enterobacter cloacae 0.54 >8 NA >8 Escherichia coli 0.5 >8 NA 8 Klebsiella pneumoniae 12 4 NA 4 Moraxella catarrhalis 0.12 0.25 NA 0.06 Morganella morganii 48 16 NA 4 Proteus mirabilis 8 32 NA 16 Pseudomonas aeruginosa 16 >32 NA 32 Stenotrophomonas maltophilia 24 32 NA 1 Serratia marcescens 2 >8 NA 8 Haemophilus influenzae 0.51 0.5 NA 8 Anaerobes Bacteroides fragilis 24 32 8 8 Clostridium difficile 0.1250.5 0.125 0.125 0.032 Clostridium perfringens 0.250.5 8 0.125 0.125 Peptostreptococcus spp. 0.1250.25 16 4 8 Other Chlamydia pneumoniae 0.125 NA 0.25 NA Legionella pneumoniae NA 18 4 4 Mycoplasma pneumoniae 0.25 1 1.6 1 *Data from references 3 and 4. MICs are presented in g/mL. MIC90 indicates minimum inhibitory concentration of 90% of isolates; NA, information not available. . . . . Problems: Consultation Date/Type/Reason Admit Date/Time Sep 15, 2016 at 21:35 Initial Consult Date 09/21/16 Type of Consultation: ID Exam/Review of Systems Vital Signs Vitals Vital Signs Date Time Temp Pulse Resp B/P Pulse Ox O2 Delivery O2 Flow Rate FiO2 10/08/16 17:36 74 14 100 40 10/08/16 14:00 112/62 Mechanical Ventilator 10/08/16 12:00 98.7 10/06/16 05:00 2.0 Intake and Output 10/07/16 10/07/16 10/08/16 15:00 23:00 07:00 Intake Total 1386.00 ml 1165.72 ml 769.133 ml Output Total 940 ml 585 ml 412 ml Balance 446.00 ml 580.72 ml 357.133 ml Results Result Diagram: 10/08/16 0400 10/08/16 0400 Results 24 hrs Laboratory Tests Test 10/08/16 04:00 10/08/16 08:35 White Blood Count 15.4 H Red Blood Count 2.43 L Hemoglobin 6.8 *L Hematocrit 21.3 L Mean Corpuscular Volume 87.7 Mean Corpuscular Hemoglobin 28.0 L Mean Corpuscular Hemoglobin Concent 31.9 L Red Cell Distribution Width 22.7 H Platelet Count 225 Mean Platelet Volume 11.5 H Neutrophils % 88.4 H Lymphocytes % 5.9 L Monocytes % 3.6 Eosinophils % 1.1 Basophils % 0.4 Nucleated Red Blood Cells % 0.0 Neutrophils # 13.6 H Lymphocytes # 0.9 Monocytes # 0.6 Eosinophils # 0.2 Basophils # 0.1 Nucleated Red Blood Cells # 0.0 Sodium Level 145 H Potassium Level 3.4 L Chloride Level 97 Carbon Dioxide Level 37 H Anion Gap 14 Blood Urea Nitrogen 30 H Creatinine 1.00 Glucose Level 153 Calcium Level 7.6 L Phosphorus Level 4.9 Magnesium Level 2.1 Stool Occult Blood POSITIVE Medications Medications Current Medications Ondansetron HCl (Zofran Inj) 4 mg Q6H PRN IV NAUSEA AND/OR VOMITING Last administered on 09/26/16 09:23; Admin Dose 4 MG; Start 09/16/16 at 00:30 Acetaminophen (Tylenol Tab) 650 mg Q6H PRN PO PAIN LEVEL 1-3 OR FEVER Last administered on 10/08/16 12:47; Admin Dose 650 MG; Start 09/16/16 at 00:30 Polyethylene Glycol 17 gm 17 gm DAILY PO Last administered on 10/08/16 09:33; Admin Dose 17 GM; Start 09/20/16 at 11:00 Norepinephrine/ Dextrose (Levophed/D5W) 500 ml @ 1.87 mls/hr TITRATE IV Last administered on 10/08/16 03:37; Admin Dose 15 MLS/HR; Start 09/21/16 at 09:00 Acetaminophen/ Hydrocodone Bitart ([place] (5/325)) 1 tab Q4H PRN PO PAIN LEVEL 4 -7 Last administered on 09/28/16 21:20; Admin Dose 1 TAB; Start 09/21/16 at 15: 00 Acetaminophen/ Hydrocodone Bitart ([place] (5/325)) 2 tab Q4H PRN PO PAIN LEVEL 7 -10; Start 09/21/16 at 15:00 Hydromorphone HCl (Dilaudid) 0.5 mg Q2H PRN IV PAIN Last administered on 16:41; Admin Dose 0.5 MG; Start 09/21/16 at 15:00 Hydromorphone HCl (Dilaudid) 1 mg Q2H PRN IV PAIN Last administered on 23:57; Admin Dose 1 MG; Start 09/21/16 at 15:00 Docusate Sodium (Colace) 100 mg BID PRN PO CONSTIPATION; Start 09/21/16 at 15: 00 Enoxaparin Sodium (Lovenox) 40 mg DAILY SC ; Start 09/22/16 at 09:00; Status Future Hold Docusate Sodium (Colace Liquid Cup) 100 mg BID NGT Last administered on 09:33; Admin Dose 100 MG; Start 09/22/16 at 21:00 Pantoprazole (Protonix Iv) 40 mg DAILY@06 IV Last administered on 10/08/16 05: 38; Admin Dose 40 MG; Start 09/26/16 at 06:00 IV Flush (NS 10 ml) 10 ml PRN PRN IV IV PROTOCOL; Start 09/25/16 at 12:00 Spironolactone 50 mg 50 mg DAILY NGT Last administered on 10/08/16 09:33; Admin Dose 50 MG; Start 09/28/16 at 09:00 Dopamine HCl/ Dextrose 250 ml @ 6.053 mls/ hr TITRATE IV Last administered on 09/30/16 04:46; Admin Dose 6.053 MLS/HR; Start 09/29/16 at 11:00 Phenylephrine HCl 40 mg/Dextrose 500 ml @ 75 mls/hr TITRATE IV ; Start at 14:00 Caspofungin/ Sodium Chloride (Cancidas/NS) 250 ml @ 250 mls/hr Q24H IVPB Last administered on 10/08/16 12:47; Admin Dose 250 MLS/HR; Start 10/01/16 at 12:00 Furosemide (Lasix) 20 mg Q6 IV Last administered on 10/08/16 18:21; Admin Dose 20 MG; Start 10/05/16 at 13:00 Lorazepam 0.5 mg 0.5 mg Q6H PRN IV AGITATION/ANXIETY Last administered on 23:21; Admin Dose 0.5 MG; Start 10/05/16 at 23:00 Propofol 100 ml @ 2.421 mls/ hr Q12H IV Last administered on 10/08/16 17:29; Admin Dose 7.263 MLS/HR; Start 10/06/16 at 14:30 Fentanyl 100 ml @ 2.5 mls/hr TITRATE IV Last administered on 10/07/16 10:39; Admin Dose 2.5 MLS/HR; Start 10/07/16 at 09:30 Tigecycline/ Sodium Chloride (Tygacil/NS) 100 ml @ 200 mls/hr Q12 IVPB Last administered on 10/08/16 09:32; Admin Dose 200 MLS/HR; Start 10/07/16 at 21:00 Morphine Sulfate (morphine) 2 mg Q4H PRN IV PAIN; Start 10/07/16 at 14:30 DONNA HERNANDEZ NP Oct 08, 2016 18:49
[2016-10-08] MEDS: FENTAnyl (DRIP) 1000 mcg/100mL 100 ML IV SCH (18:54)
--- NOTE | 2016-10-08 19:19 | CONS ---
Date/Time of Note Date/Time of Note DATE: 10/08/16 TIME: 19:12 Assessment/Plan Assessment/Plan Chief Complaint/Hosp Course Acute respiratory failure: Reintubated again 10/06 Acute diastolic heart failure: Secondary to volume resuscitation in setting of low albumin and third spacing. Significant anasarca. Diuresing Paroxysmal afib: converted on amiodarone. Currently in sinus rhythm Septic shock: from intraabdominal abscess and possible infected GRINDER HARDBOARD shunt. S/p sigmoid colectomy. Tension pneumothorax: due to thoracentesis. s/p chest tube 09/30 NSTEMI: Trop mildly elevated likely type II in the setting of septic shock. Echo from 09/18 showed normal EF and no significant valvular disease. Repeat trop normalized Diverticulitis complicated by abscess s/p sigmoid colectomy and now colostomy Coagulopathy: ?DIC. Resolved h/o ICH with GRINDER HARDBOARD shunt -Continue Lasix to 20mg IV [id number] -Continue Levophed to maintain MAP > 65 -Ventilator management per pulmonology -Antibiotics per infectious disease -Guarded prognosis Problems: Consultation Date/Type/Reason Admit Date/Time Sep 15, 2016 at 21:35 Initial Consult Date 09/21/16 Type of Consultation: Cardiology 24 HR Interval Summary Free Text/Dictation Patient has been re-intubated. Remains on Levophed drip. Detailed Summary Additional Comments Unable to obtain review of systems, patient is intubated. Exam/Review of Systems Vital Signs Vitals Vital Signs Date Time Temp Pulse Resp B/P Pulse Ox O2 Delivery O2 Flow Rate FiO2 10/08/16 18:45 72 17 102/61 100 10/08/16 18:00 Mechanical Ventilator 10/08/16 17:36 40 10/08/16 16:00 98.6 10/06/16 05:00 2.0 Intake and Output 10/07/16 10/07/16 10/08/16 15:00 23:00 07:00 Intake Total 1386.00 ml 1165.72 ml 809.133 ml Output Total 940 ml 585 ml 512 ml Balance 446.00 ml 580.72 ml 297.133 ml Exam Constitutional: intubated HEENT: NCAT Neck: No obvious JVD, no carotid bruits Respiratory: diminished breath sounds, scattered crackles, no wheezes; chest tube noted Cardiovascular: Tachycardic, regular, no m/r/g, 2+ pitting BLE edema Gastrointestinal: non-tender, soft, grimaces to palpation Extremities: warm, no cyanosis or clubbing, LE SCDs in place Results Result Diagram: 10/08/16 0400 10/08/16 0400 Results 24 hrs Laboratory Tests Test 10/08/16 04:00 10/08/16 08:35 White Blood Count 15.4 H Red Blood Count 2.43 L Hemoglobin 6.8 *L Hematocrit 21.3 L Mean Corpuscular Volume 87.7 Mean Corpuscular Hemoglobin 28.0 L Mean Corpuscular Hemoglobin Concent 31.9 L Red Cell Distribution Width 22.7 H Platelet Count 225 Mean Platelet Volume 11.5 H Neutrophils % 88.4 H Lymphocytes % 5.9 L Monocytes % 3.6 Eosinophils % 1.1 Basophils % 0.4 Nucleated Red Blood Cells % 0.0 Neutrophils # 13.6 H Lymphocytes # 0.9 Monocytes # 0.6 Eosinophils # 0.2 Basophils # 0.1 Nucleated Red Blood Cells # 0.0 Sodium Level 145 H Potassium Level 3.4 L Chloride Level 97 Carbon Dioxide Level 37 H Anion Gap 14 Blood Urea Nitrogen 30 H Creatinine 1.00 Glucose Level 153 Calcium Level 7.6 L Phosphorus Level 4.9 Magnesium Level 2.1 Stool Occult Blood POSITIVE Medications Medications Current Medications Ondansetron HCl (Zofran Inj) 4 mg Q6H PRN IV NAUSEA AND/OR VOMITING Last administered on 09/26/16 09:23; Admin Dose 4 MG; Start 09/16/16 at 00:30 Acetaminophen (Tylenol Tab) 650 mg Q6H PRN PO PAIN LEVEL 1-3 OR FEVER Last administered on 10/08/16 12:47; Admin Dose 650 MG; Start 09/16/16 at 00:30 Polyethylene Glycol 17 gm 17 gm DAILY PO Last administered on 10/08/16 09:33; Admin Dose 17 GM; Start 09/20/16 at 11:00 Norepinephrine/ Dextrose (Levophed/D5W) 500 ml @ 1.87 mls/hr TITRATE IV Last administered on 10/08/16 03:37; Admin Dose 15 MLS/HR; Start 09/21/16 at 09:00 Acetaminophen/ Hydrocodone Bitart ([place] (5/325)) 1 tab Q4H PRN PO PAIN LEVEL 4 -7 Last administered on 09/28/16 21:20; Admin Dose 1 TAB; Start 09/21/16 at 15: 00 Acetaminophen/ Hydrocodone Bitart ([place] (5/325)) 2 tab Q4H PRN PO PAIN LEVEL 7 -10; Start 09/21/16 at 15:00 Hydromorphone HCl (Dilaudid) 0.5 mg Q2H PRN IV PAIN Last administered on 16:41; Admin Dose 0.5 MG; Start 09/21/16 at 15:00 Hydromorphone HCl (Dilaudid) 1 mg Q2H PRN IV PAIN Last administered on 23:57; Admin Dose 1 MG; Start 09/21/16 at 15:00 Docusate Sodium (Colace) 100 mg BID PRN PO CONSTIPATION; Start 09/21/16 at 15: 00 Enoxaparin Sodium (Lovenox) 40 mg DAILY SC ; Start 09/22/16 at 09:00; Status Future Hold Docusate Sodium (Colace Liquid Cup) 100 mg BID NGT Last administered on 09:33; Admin Dose 100 MG; Start 09/22/16 at 21:00 Pantoprazole (Protonix Iv) 40 mg DAILY@06 IV Last administered on 10/08/16 05: 38; Admin Dose 40 MG; Start 09/26/16 at 06:00 IV Flush (NS 10 ml) 10 ml PRN PRN IV IV PROTOCOL; Start 09/25/16 at 12:00 Spironolactone 50 mg 50 mg DAILY NGT Last administered on 10/08/16 09:33; Admin Dose 50 MG; Start 09/28/16 at 09:00 Dopamine HCl/ Dextrose 250 ml @ 6.053 mls/ hr TITRATE IV Last administered on 09/30/16 04:46; Admin Dose 6.053 MLS/HR; Start 09/29/16 at 11:00 Phenylephrine HCl 40 mg/Dextrose 500 ml @ 75 mls/hr TITRATE IV ; Start at 14:00 Caspofungin/ Sodium Chloride (Cancidas/NS) 250 ml @ 250 mls/hr Q24H IVPB Last administered on 10/08/16 12:47; Admin Dose 250 MLS/HR; Start 10/01/16 at 12:00 Furosemide (Lasix) 20 mg Q6 IV Last administered on 10/08/16 18:21; Admin Dose 20 MG; Start 10/05/16 at 13:00 Lorazepam 0.5 mg 0.5 mg Q6H PRN IV AGITATION/ANXIETY Last administered on 23:21; Admin Dose 0.5 MG; Start 10/05/16 at 23:00 Propofol 100 ml @ 2.421 mls/ hr Q12H IV Last administered on 10/08/16 17:29; Admin Dose 7.263 MLS/HR; Start 10/06/16 at 14:30 Fentanyl 100 ml @ 2.5 mls/hr TITRATE IV Last administered on 10/08/16 18:54; Admin Dose 2.5 MLS/HR; Start 10/07/16 at 09:30 Tigecycline/ Sodium Chloride (Tygacil/NS) 100 ml @ 200 mls/hr Q12 IVPB Last administered on 10/08/16 09:32; Admin Dose 200 MLS/HR; Start 10/07/16 at 21:00 Morphine Sulfate (morphine) 2 mg Q4H PRN IV PAIN; Start 10/07/16 at 14:30 AVINASH FERNANDEZ MD Oct 08, 2016 19:19
--- NOTE | 2016-10-08 21:26 | CONS ---
Date/Time of Note Date/Time of Note DATE: 10/08/16 TIME: 21:21 Assessment/Plan Assessment/Plan Problems: (1) Hydrocephalus Comment: Drain clamped. Follow exam and re-open if becomes unstable or neurological deterioration. Plan CT tomorrow - will re-open drain if ventricles enlarged. If ventricles not enlarged and neurologically stable then continue clamped catheter and repeat CT in several days. Consultation Date/Type/Reason Admit Date/Time Sep 15, 2016 at 21:35 Initial Consult Date 09/21/16 Type of Consultation: Neurosurgery Reason for Consultation Hydrocephalus 24 HR Interval Summary Free Text/Dictation Pt. re-intubated and now airway clearly controlled. Continued output clear CSF. Subjective hx not possible: pt critical Exam/Review of Systems Vital Signs Vitals Vital Signs Date Time Temp Pulse Resp B/P Pulse Ox O2 Delivery O2 Flow Rate FiO2 10/08/16 20:00 77 10/08/16 18:45 17 102/61 100 10/08/16 18:00 Mechanical Ventilator 10/08/16 17:36 40 10/08/16 16:00 98.6 10/06/16 05:00 2.0 Intake and Output 10/07/16 10/07/16 10/08/16 15:00 23:00 07:00 Intake Total 1386.00 ml 1165.72 ml 809.133 ml Output Total 940 ml 585 ml 512 ml Balance 446.00 ml 580.72 ml 297.133 ml Exam Constitutional: frail ENMT: intubated Neurological: other (opens eyes to voice and regards examiner; clearly purposeful spontaneously bilaterally but not following commands; pupils small) Results Result Diagram: 10/08/16 0400 10/08/16 0400 Results 24 hrs Laboratory Tests Test 10/08/16 04:00 10/08/16 08:35 White Blood Count 15.4 H Red Blood Count 2.43 L Hemoglobin 6.8 *L Hematocrit 21.3 L Mean Corpuscular Volume 87.7 Mean Corpuscular Hemoglobin 28.0 L Mean Corpuscular Hemoglobin Concent 31.9 L Red Cell Distribution Width 22.7 H Platelet Count 225 Mean Platelet Volume 11.5 H Neutrophils % 88.4 H Lymphocytes % 5.9 L Monocytes % 3.6 Eosinophils % 1.1 Basophils % 0.4 Nucleated Red Blood Cells % 0.0 Neutrophils # 13.6 H Lymphocytes # 0.9 Monocytes # 0.6 Eosinophils # 0.2 Basophils # 0.1 Nucleated Red Blood Cells # 0.0 Sodium Level 145 H Potassium Level 3.4 L Chloride Level 97 Carbon Dioxide Level 37 H Anion Gap 14 Blood Urea Nitrogen 30 H Creatinine 1.00 Glucose Level 153 Calcium Level 7.6 L Phosphorus Level 4.9 Magnesium Level 2.1 Stool Occult Blood POSITIVE Medications Medications Current Medications Ondansetron HCl (Zofran Inj) 4 mg Q6H PRN IV NAUSEA AND/OR VOMITING Last administered on 09/26/16 09:23; Admin Dose 4 MG; Start 09/16/16 at 00:30 Acetaminophen (Tylenol Tab) 650 mg Q6H PRN PO PAIN LEVEL 1-3 OR FEVER Last administered on 10/08/16 12:47; Admin Dose 650 MG; Start 09/16/16 at 00:30 Polyethylene Glycol 17 gm 17 gm DAILY PO Last administered on 10/08/16 09:33; Admin Dose 17 GM; Start 09/20/16 at 11:00 Norepinephrine/ Dextrose (Levophed/D5W) 500 ml @ 1.87 mls/hr TITRATE IV Last administered on 10/08/16 03:37; Admin Dose 15 MLS/HR; Start 09/21/16 at 09:00 Acetaminophen/ Hydrocodone Bitart ([place] (5/325)) 1 tab Q4H PRN PO PAIN LEVEL 4 -7 Last administered on 09/28/16 21:20; Admin Dose 1 TAB; Start 09/21/16 at 15: 00 Acetaminophen/ Hydrocodone Bitart ([place] (5/325)) 2 tab Q4H PRN PO PAIN LEVEL 7 -10; Start 09/21/16 at 15:00 Hydromorphone HCl (Dilaudid) 0.5 mg Q2H PRN IV PAIN Last administered on 16:41; Admin Dose 0.5 MG; Start 09/21/16 at 15:00 Hydromorphone HCl (Dilaudid) 1 mg Q2H PRN IV PAIN Last administered on 23:57; Admin Dose 1 MG; Start 09/21/16 at 15:00 Docusate Sodium (Colace) 100 mg BID PRN PO CONSTIPATION; Start 09/21/16 at 15: 00 Enoxaparin Sodium (Lovenox) 40 mg DAILY SC ; Start 09/22/16 at 09:00; Status Future Hold Docusate Sodium (Colace Liquid Cup) 100 mg BID NGT Last administered on 09:33; Admin Dose 100 MG; Start 09/22/16 at 21:00 Pantoprazole (Protonix Iv) 40 mg DAILY@06 IV Last administered on 10/08/16 05: 38; Admin Dose 40 MG; Start 09/26/16 at 06:00 IV Flush (NS 10 ml) 10 ml PRN PRN IV IV PROTOCOL; Start 09/25/16 at 12:00 Spironolactone 50 mg 50 mg DAILY NGT Last administered on 10/08/16 09:33; Admin Dose 50 MG; Start 09/28/16 at 09:00 Dopamine HCl/ Dextrose 250 ml @ 6.053 mls/ hr TITRATE IV Last administered on 09/30/16 04:46; Admin Dose 6.053 MLS/HR; Start 09/29/16 at 11:00 Phenylephrine HCl 40 mg/Dextrose 500 ml @ 75 mls/hr TITRATE IV ; Start at 14:00 Caspofungin/ Sodium Chloride (Cancidas/NS) 250 ml @ 250 mls/hr Q24H IVPB Last administered on 10/08/16 12:47; Admin Dose 250 MLS/HR; Start 10/01/16 at 12:00 Furosemide (Lasix) 20 mg Q6 IV Last administered on 10/08/16 18:21; Admin Dose 20 MG; Start 10/05/16 at 13:00 Lorazepam 0.5 mg 0.5 mg Q6H PRN IV AGITATION/ANXIETY Last administered on 23:21; Admin Dose 0.5 MG; Start 10/05/16 at 23:00 Propofol 100 ml @ 2.421 mls/ hr Q12H IV Last administered on 10/08/16 17:29; Admin Dose 7.263 MLS/HR; Start 10/06/16 at 14:30 Fentanyl 100 ml @ 2.5 mls/hr TITRATE IV Last administered on 10/08/16 18:54; Admin Dose 2.5 MLS/HR; Start 7/31/17 at 09:30 Tigecycline/ Sodium Chloride (Tygacil/NS) 100 ml @ 200 mls/hr Q12 IVPB Last administered on 10/08/16t 20:00; Admin Dose 200 MLS/HR; Start 10/07/16 at 21:00 Morphine Sulfate (morphine) 2 mg Q4H PRN IV PAIN; Start 10/07/16 at 14:30 NIRAJ LANDRY MD Oct 08, 2016 21:25
[2016-10-09] VITALS (90 sets, daily range): BP systolic 79–131; BP diastolic 48–75; PULSE 74–96; RESP 0–50
[2016-10-09] MEDS: ALBUTEROL 18 GM INHALER INH SCH ×6 (01:18→20:51)
[2016-10-09] MEDS: IPRATROPIUM (HFA) 12.9 GM INHALER INH SCH ×6 (01:18→20:51)
[2016-10-09] MEDS: ACETYLCYSTEINE 20% 4 ML VIAL NEB SCH ×4 (01:18→13:27)
[2016-10-09] MEDS: PROPOFOL 100 ML IV SCH ×2 (02:48→13:55)
[2016-10-09] MEDS: FUROSEMIDE 20 MG INJ IV SCH ×4 (04:52→18:29)
[2016-10-09] MEDS: PANTOPRAZOLE 40 MG INJ IV SCH ×2 (04:52→18:29)
[2016-10-09 06:45] LABS: BASOPHIL # 0.1 10^3/ul (0.0-0.1); BASOPHILS % 0.5 % (0.0-2.0); EOSINOPHILS # 0.1 10^3/ul (0.0-0.5); EOSINOPHILS % 0.5 % (0.0-7.0); HEMATOCRIT 27.6 % (37.0-47.0); HEMOGLOBIN 8.9 g/dl (12.0-16.0); LYMPHOCYTES # 0.9 10^3/ul (0.8-2.9); LYMPHOCYTES % 4.7 % (15.0-51.0); MEAN CORPUSCULAR HEMOGLOBIN 28.6 pg (29.0-33.0); MEAN CORPUSCULAR HGB CONC 32.2 g/dl (32.0-37.0); MEAN CORPUSCULAR VOLUME 88.7 fl (82.0-101.0); MEAN PLATELET VOLUME 11.9 fl (7.4-10.4); MONOCYTE # 0.6 10^3/ul (0.3-0.9); NEUTROPHIL # 17.8 10^3/ul (1.6-7.5); PLATELET COUNT 178 10^3/UL (140-415); RED BLOOD COUNT 3.11 10^6/ul (4.20-5.40); RED CELL DISTRIBUTION WIDTH 21.2 % (11.5-14.5); WHITE BLOOD COUNT 19.6 10^3/ul (4.8-10.8)
[2016-10-09 06:58] LABS: NEUTROPHILS % 90.6 % (39.0-77.0); POSITIVE DIFF @See below
[2016-10-09 07:00] LABS: INR 1.86; PROTIME 21.6 Sec (12.2-14.2); PT RATIO 1.7
[2016-10-09 07:09] LABS: ALBUMIN 2.3 g/dl (3.3-4.9); ALBUMIN/GLOBULIN RATIO 0.65; BILIRUBIN,INDIRECT 0.2 mg/dl (0-1.1); BILIRUBIN,TOTAL 0.2 mg/dl (0.2-1.3); CALCIUM 7.5 mg/dl (8.4-10.2); CREATININE 0.9 mg/dl (0.44-1.00); POTASSIUM 3.5 mmol/L (3.5-5.1); TOTAL PROTEIN 5.8 g/dl (6.1-8.1)
[2016-10-09 07:12] LABS: CALCIUM 7.4 mg/dl (8.4-10.2); CREATININE 0.81 mg/dl (0.44-1.00); MAGNESIUM 1.9 mg/dl (1.7-2.5); PHOSPHORUS 5.1 mg/dl (2.5-4.9)
--- NOTE | 2016-10-09 07:54 | PN ---
DATE: 10/09/2016 SUBJECTIVE DATA: The patient remains critically ill, on ventilatory support and pressor support. No other events noted. OBJECTIVE DATA: VITAL SIGNS: Blood pressure is 124/73, pulse 80, respirations 20, temperature 98.6. Is and Os. The patient had 3 L in, 3.2 L out. HEENT: Head is normocephalic. NECK: Supple. HEART: Regular rate. LUNGS: Diminished breath sounds at the base. ABDOMEN: Soft, nontender to palpation. No guarding. No rebound. EXTREMITIES: Negative for clubbing, cyanosis. Positive edema. DERMATOLOGIC: No rashes. MUSCULOSKELETAL: No joint effusion. NEUROLOGIC: No change in exam. MEDICATIONS: The patient's medications have been reviewed. LABORATORY AND DIAGNOSTIC DATA: Shows sodium 145, potassium 4.5, BUN 32, creatinine 0.90. White count 19.6, hemoglobin 8.9, hematocrit 27.6, platelet count is 178. IMAGING: Imaging studies were reviewed. ASSESSMENT AND PLAN: 1. Nonoliguric acute kidney injury secondary ATN. The patient's renal function has been fluctuating. At this point, continue current treatment. Supportive care. Renal dose all meds. 2. Hyponatremia, improving. Continue free water flushes. 3. Hypokalemia. Continue to monitor and replete. 4. Volume overload, anasarca secondary to congestive heart failure third-spacing. The patient remains on diuretic therapy, being managed by Cardiology. Continue to monitor. 5. Metabolic alkalosis is improving. Continue to monitor. 6. Septic shock. The patient remains on IV pressors, IV antibiotics. Will continue. Cultures been reviewed. 7. Anemia. Monitor H and H levels. 8. Metabolic bone disorder. Monitor calcium and phosphorus levels. 9. Ventilator-dependent respiratory failure. Vent settings reviewed. ABGs reviewed. Continue to monitor. 10. Perforated viscus, status post colectomy with colostomy bag. Continue current treatment plan. Follow up with Pulmonary. 11. History of intracranial hemorrhage, status post CRYPTOANALYSIS TEACHER shunt. Dictated By: Agustin Sanchez DO /rhian/precious /Document#: [id number]
--- NOTE | 2016-10-09 09:07 | RADRPT ---
PROCEDURE: CT Brain without contrast. CLINICAL INDICATION: Follow-up hydrocephalus. TECHNIQUE: A CT of the brain was performed on a multidetector CT scanner utilizing axial sections from the skull base through the vertex without contrast. Images were reviewed on a high-resolution [employer] workstation. Exam CTDI = 44.58 mGy and the DLP = 810.25 mGy-cm. One or more of the following dose reduction techniques were used: Automated exposure control Adjustment of the mA and/or kV according to patient size. Use of iterative reconstruction technique. COMPARISON: CT head 09/30/2016. FINDINGS: Mild diffuse cerebral and cerebellar atrophy is present. There is proportionate dilatation of the v entricular system and sulci in a symmetric fashion. There is prominence of the extraaxial spaces sec ondary to atrophy. There is no evidence of intracranial hemorrhage, mass effect or midline shift. Ri ght frontal approach ORCHESTRA TEACHER shunt catheter is again identified with tip in the region of the right dulce en of [place]. There has been no significant interval change in size of the ventricles. There is sergo ventricular encephalomalacia in the posterior right temporal lobe. No abnormal intra-axial or extra- axial fluid collections are seen. The density of the brain is normal and the patel/white matter diff erentiation is well preserved. Mild patchy diffuse deep white matter microangiopathic ischemic alan ge is seen. The osseous structures are unremarkable. There are postsurgical changes of medial an trostomies and ethmoidectomies. Layering fluid is seen in bilateral maxillary and sphenoid sinuses.. Vascular calcifications are identified. IMPRESSION: 1. No intracranial hemorrhage, mass effect or midline shift. 2. Right frontal ORCHESTRA TEACHER shunt remains in place. No substantial change in size and configuration of the ventricular system. No transependymal CSF leak is identified to suggest uncompensated hydrocephalo us. 3. Stable periventricular encephalomalacia in the posterior right temporal lobe. 4. Mild generalized atrophy. Mild microangiopathic ischemic change. 5. Intracranial atherosclerosis. RPTAT: BB .Bonita Garcia MD, Date Time Electronically viewed and signed by .Bonita Garcia MD, on 10/09/2016 09:07 .O/
[2016-10-09] MEDS: DOCUSATE SODIUM 10 MG/ML (10ML CUP) NGT SCH ×2 (09:44→20:01)
[2016-10-09] MEDS: POLYETHYLENE GLYCOL 17 GM PACKET PO SCH (09:44)
[2016-10-09] MEDS: SPIRONOLACTONE 50 MG TAB NGT SCH (09:44)
[2016-10-09] MEDS: TIGECYCLINE 50 MG in SOD CHLORIDE 0.9% 100 ML IVPB SCH ×2 (10:24→20:01)
[2016-10-09] MEDS: CASPOFUNGIN 50 MG in SOD CHLORIDE 0.9% 250 ML IVPB SCH (11:49)
--- NOTE | 2016-10-09 13:03 | CONS ---
Date/Time of Note Date/Time of Note DATE: 10/09/16 TIME: 13:00 Assessment/Plan Assessment/Plan Additional Assessment/Plan Ventilator setting; AC of 12, tidal volume 500, PEEP of 5, 40% FiO2. Patient currently on Levophed at 6 mics per minute, propofol 15 mics per kilogram per minute. CT scan chest was reviewed from yesterday which is showing patchy bilateral pneumonia with micro cavitation with left lower lobe segmental atelectasis. Assessment and recommendations; 1. Patient admitted for ileus with a history of colostomy developing bilateral pneumonia was extubated that had to be reintubated for worsening pneumonia. 2. Persistent hypotension. 3. History of SECURITIES SETTLEMENT PROCESSOR shunt. Continue current treatment. Patient scheduled for tracheostomy and G-tube placement. Gnosis is guarded. Consultation Date/Type/Reason Admit Date/Time Sep 15, 2016 at 21:35 Initial Consult Date 09/21/16 Type of Consultation: Pulmonary/critical care 24 HR Interval Summary Free Text/Dictation Patient condition remains critical. Still requiring full ventilator support. Patient also remains mildly hypotensive and requiring Levophed for blood pressure maintenance. General exam; elderly woman, orally intubated, awake and somewhat responsive, despite being on sedation. Exam/Review of Systems Vital Signs Vitals Vital Signs Date Time Temp Pulse Resp B/P Pulse Ox O2 Delivery O2 Flow Rate FiO2 10/09/16 12:15 86 39 101/58 97 Mechanical Ventilator 10/09/16 12:00 98.8 10/09/16 05:03 40 10/06/16 05:00 2.0 Intake and Output 10/08/16 10/08/16 10/09/16 15:00 23:00 07:00 Intake Total 1780.063 ml 1028.94 ml 176.064 ml Output Total 759 ml 1176 ml 1295 ml Balance 1021.063 ml -147.06 ml -1118.936 ml Exam HEENT exam; supple neck, no JVD. No lymphadenopathy. Midline trachea. No thyromegaly. Orally intubated. Patient does have missing teeth. Neck Chest exam; diminished but clear breath sound. S1-S2 audible, no murmurs. Regular rhythm. Abdomen exam; soft, colostomy in place. Bowel sounds are sluggish. No organomegaly. Extremity exam; trace edema. 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 Results Result Diagram: 10/09/16 0507 10/09/16 0507 Results 24 hrs Laboratory Tests Test 10/09/16 05:07 10/09/16 05:08 White Blood Count 19.6 #H Red Blood Count 3.11 #L Hemoglobin 8.9 #L Hematocrit 27.6 #L Mean Corpuscular Volume 88.7 Mean Corpuscular Hemoglobin 28.6 L Mean Corpuscular Hemoglobin Concent 32.2 Red Cell Distribution Width 21.2 H Platelet Count 178 # Mean Platelet Volume 11.9 H Neutrophils % 90.6 H Lymphocytes % 4.7 L Monocytes % 3.0 Eosinophils % 0.5 Basophils % 0.5 Nucleated Red Blood Cells % 0.0 Neutrophils # 17.8 H Lymphocytes # 0.9 Monocytes # 0.6 Eosinophils # 0.1 Basophils # 0.1 Nucleated Red Blood Cells # 0.0 Prothrombin Time 21.6 H Prothrombin Time Ratio 1.7 INR International Normalized Ratio 1.86 Activated Partial Thromboplast Time 37.0 H Sodium Level 145 H Potassium Level 3.5 Chloride Level 99 Carbon Dioxide Level 35 H Anion Gap 15 Blood Urea Nitrogen 32 H Creatinine 0.90 Glucose Level 100 Lactic Acid Level 1.9 Calcium Level 7.5 L Phosphorus Level 5.1 H Magnesium Level 1.9 Total Bilirubin 0.2 Direct Bilirubin 0.00 Indirect Bilirubin 0.2 Aspartate Amino Transf (AST/SGOT) 13 L Alanine Aminotransferase (ALT/SGPT) 26 Alkaline Phosphatase 187 H B-Type Natriuretic Peptide 8320 H Total Protein 5.8 L Albumin 2.3 L Globulin 3.50 H Albumin/Globulin Ratio 0.65 Lipase 155 Lab Scanned Report BLOOD TRANSFUSION Medications Medications Current Medications Ondansetron HCl (Zofran Inj) 4 mg Q6H PRN IV NAUSEA AND/OR VOMITING Last administered on 09/26/16 09:23; Admin Dose 4 MG; Start 09/16/16 at 00:30 Acetaminophen (Tylenol Tab) 650 mg Q6H PRN PO PAIN LEVEL 1-3 OR FEVER Last administered on 10/08/16 12:47; Admin Dose 650 MG; Start 09/16/16 at 00:30 Polyethylene Glycol 17 gm 17 gm DAILY PO Last administered on 10/09/16 09:44; Admin Dose 17 GM; Start 09/20/16 at 11:00 Norepinephrine/ Dextrose (Levophed/D5W) 500 ml @ 1.87 mls/hr TITRATE IV Last administered on 10/09/16 06:59; Admin Dose 11.25 MLS/HR; Start 09/21/16 at 09:00 Acetaminophen/ Hydrocodone Bitart ([place] (5/325)) 1 tab Q4H PRN PO PAIN LEVEL 4 -7 Last administered on 09/28/16 21:20; Admin Dose 1 TAB; Start 09/21/16 at 15: 00 Acetaminophen/ Hydrocodone Bitart ([place] (5/325)) 2 tab Q4H PRN PO PAIN LEVEL 7 -10; Start 09/21/16 at 15:00 Hydromorphone HCl (Dilaudid) 0.5 mg Q2H PRN IV PAIN Last administered on 16:41; Admin Dose 0.5 MG; Start 09/21/16 at 15:00 Hydromorphone HCl (Dilaudid) 1 mg Q2H PRN IV PAIN Last administered on 23:57; Admin Dose 1 MG; Start 09/21/16 at 15:00 Docusate Sodium (Colace) 100 mg BID PRN PO CONSTIPATION; Start 09/21/16 at 15: 00 Enoxaparin Sodium (Lovenox) 40 mg DAILY SC ; Start 09/22/16 at 09:00; Status Future Hold Docusate Sodium (Colace Liquid Cup) 100 mg BID NGT Last administered on 09:44; Admin Dose 100 MG; Start 09/22/16 at 21:00 Pantoprazole (Protonix Iv) 40 mg DAILY@06 IV Last administered on 10/09/16 04: 52; Admin Dose 40 MG; Start 09/26/16 at 06:00 IV Flush (NS 10 ml) 10 ml PRN PRN IV IV PROTOCOL; Start 09/25/16 at 12:00 Spironolactone 50 mg 50 mg DAILY NGT Last administered on 10/09/16 09:44; Admin Dose 50 MG; Start 09/28/16 at 09:00 Dopamine HCl/ Dextrose 250 ml @ 6.053 mls/ hr TITRATE IV Last administered on 09/30/16 04:46; Admin Dose 6.053 MLS/HR; Start 09/29/16 at 11:00 Phenylephrine HCl 40 mg/Dextrose 500 ml @ 75 mls/hr TITRATE IV ; Start at 14:00 Caspofungin/ Sodium Chloride (Cancidas/NS) 250 ml @ 250 mls/hr Q24H IVPB Last administered on 10/09/16 11:49; Admin Dose 250 MLS/HR; Start 10/01/16 at 12:00 Furosemide (Lasix) 20 mg Q6 IV Last administered on 10/09/16 11:49; Admin Dose 20 MG; Start 10/05/16 at 13:00 Lorazepam 0.5 mg 0.5 mg Q6H PRN IV AGITATION/ANXIETY Last administered on 23:21; Admin Dose 0.5 MG; Start 10/05/16 at 23:00 Propofol 100 ml @ 2.421 mls/ hr Q12H IV Last administered on 10/09/16 02:48; Admin Dose 7.263 MLS/HR; Start 10/06/16 at 14:30 Fentanyl 100 ml @ 2.5 mls/hr TITRATE IV Last administered on 10/08/16 18:54; Admin Dose 2.5 MLS/HR; Start 10/07/16 at 09:30 Tigecycline/ Sodium Chloride (Tygacil/NS) 100 ml @ 200 mls/hr Q12 IVPB Last administered on 10/09/16 10:24; Admin Dose 200 MLS/HR; Start 10/07/16 at 21:00 Morphine Sulfate (morphine) 2 mg Q4H PRN IV PAIN; Start 10/07/16 at 14:30 GERARDO JUSTICE Oct 09, 2016 13:03
--- NOTE | 2016-10-09 13:47 | PN ---
Date/Time of Note Date/Time of Note DATE: 10/09/16 TIME: 13:45 Assessment/Plan VTE Prophylaxis VTE Prophylaxis Intervention: SCD's Assessment/Plan Chief Complaint/Hosp Course 1. Sigmoid colon abscess, likely a complication of diverticulitis - s/p sigmoid colectomy with end colostomy (Reid's procedure) and adhesiolysis on 09/21/16 - continue antibiotics. Follow-up surgery recommendation. ID is on board. 2. Status post septic shock -Continue antibiotics and IV fluid. -Pressors as needed. 3. Ventilator dependent respiratory failure: Status post re-extubation few days ago. -Plan is for tracheostomy today 4. Left pleural effusion: Status post thoracentesis, complicated with pneumothorax status post placement of a chest tube. 4. History of ICH, s/p ventriculoperitoneal shunt placement: Neurosurg on board 5. Paroxysmal A. fib: Now in sinus rhythm status post amiodarone and dopamine. Cardiology on board, appreciate recommendation 6. Acute renal insufficiency: Resolved. Appreciate nephrology input. 7. s/p NSTEMI: Likely secondary to septic shock. Cardiology on board. 8. Volume overload state: Continue diuresis. Patient still has bilateral lower extremity pitting edema. 9. Anemia, likely a combination of iron deficiency and anemia of chronic disease: Previous notes mention iron replacement. Given patient is extubated, will start her on ferrous sulfate once she passes swallow evaluation. She did fail swallow evaluation yesterday. will consider blood transfusion 10. Hypokalemia: Replete 11. Dysphagia Continue NG tube feeds, plan is for PEG tube placement once stable for procedure Prophylaxis: SCDs Problems: Subjective 24 Hr Interval Summary Subjective hx not possible: pt non-verbal Exam/Review of Systems Vital Signs Vitals Vital Signs Date Time Temp Pulse Resp B/P Pulse Ox O2 Delivery O2 Flow Rate FiO2 10/09/16 12:15 86 39 101/58 97 Mechanical Ventilator 10/09/16 12:00 98.8 10/09/16 05:03 40 10/06/16 05:00 2.0 Intake and Output 10/08/16 10/08/16 10/09/16 14:59 22:59 06:59 Intake Total 1763.816 ml 840.81 ml 447.074 ml Output Total 759 ml 1176 ml 1295 ml Balance 1004.816 ml -335.19 ml -847.926 ml Exam Constitutional: non-verbal ENMT: intubated Cardiovascular: regular rate and rhythm Gastrointestinal: soft, No distended Musculoskeletal: nl extremities to inspection Results Result Diagram: 10/09/16 0507 10/09/16 0507 Results 24 hrs Laboratory Tests Test 10/09/16 05:07 10/09/16 05:08 White Blood Count 19.6 #H Red Blood Count 3.11 #L Hemoglobin 8.9 #L Hematocrit 27.6 #L Mean Corpuscular Volume 88.7 Mean Corpuscular Hemoglobin 28.6 L Mean Corpuscular Hemoglobin Concent 32.2 Red Cell Distribution Width 21.2 H Platelet Count 178 # Mean Platelet Volume 11.9 H Neutrophils % 90.6 H Lymphocytes % 4.7 L Monocytes % 3.0 Eosinophils % 0.5 Basophils % 0.5 Nucleated Red Blood Cells % 0.0 Neutrophils # 17.8 H Lymphocytes # 0.9 Monocytes # 0.6 Eosinophils # 0.1 Basophils # 0.1 Nucleated Red Blood Cells # 0.0 Prothrombin Time 21.6 H Prothrombin Time Ratio 1.7 INR International Normalized Ratio 1.86 Activated Partial Thromboplast Time 37.0 H Sodium Level 145 H Potassium Level 3.5 Chloride Level 99 Carbon Dioxide Level 35 H Anion Gap 15 Blood Urea Nitrogen 32 H Creatinine 0.90 Glucose Level 100 Lactic Acid Level 1.9 Calcium Level 7.5 L Phosphorus Level 5.1 H Magnesium Level 1.9 Total Bilirubin 0.2 Direct Bilirubin 0.00 Indirect Bilirubin 0.2 Aspartate Amino Transf (AST/SGOT) 13 L Alanine Aminotransferase (ALT/SGPT) 26 Alkaline Phosphatase 187 H B-Type Natriuretic Peptide 8320 H Total Protein 5.8 L Albumin 2.3 L Globulin 3.50 H Albumin/Globulin Ratio 0.65 Lipase 155 Lab Scanned Report BLOOD TRANSFUSION Medications Medications Current Medications Ondansetron HCl (Zofran Inj) 4 mg Q6H PRN IV NAUSEA AND/OR VOMITING Last administered on 09/26/16 09:23; Admin Dose 4 MG; Start 09/16/16 at 00:30 Acetaminophen (Tylenol Tab) 650 mg Q6H PRN PO PAIN LEVEL 1-3 OR FEVER Last administered on 10/08/16 12:47; Admin Dose 650 MG; Start 09/16/16 at 00:30 Polyethylene Glycol 17 gm 17 gm DAILY PO Last administered on 10/09/16 09:44; Admin Dose 17 GM; Start 09/20/16 at 11:00 Norepinephrine/ Dextrose (Levophed/D5W) 500 ml @ 1.87 mls/hr TITRATE IV Last administered on 10/09/16 06:59; Admin Dose 11.25 MLS/HR; Start 09/21/16 at 09:00 Acetaminophen/ Hydrocodone Bitart ([place] (5/325)) 1 tab Q4H PRN PO PAIN LEVEL 4 -7 Last administered on 09/28/16 21:20; Admin Dose 1 TAB; Start 09/21/16 at 15: 00 Acetaminophen/ Hydrocodone Bitart ([place] (5/325)) 2 tab Q4H PRN PO PAIN LEVEL 7 -10; Start 09/21/16 at 15:00 Hydromorphone HCl (Dilaudid) 0.5 mg Q2H PRN IV PAIN Last administered on 16:41; Admin Dose 0.5 MG; Start 09/21/16 at 15:00 Hydromorphone HCl (Dilaudid) 1 mg Q2H PRN IV PAIN Last administered on 23:57; Admin Dose 1 MG; Start 09/21/16 at 15:00 Docusate Sodium (Colace) 100 mg BID PRN PO CONSTIPATION; Start 09/21/16 at 15: 00 Enoxaparin Sodium (Lovenox) 40 mg DAILY SC ; Start 09/22/16 at 09:00; Status Future Hold Docusate Sodium (Colace Liquid Cup) 100 mg BID NGT Last administered on 09:44; Admin Dose 100 MG; Start 09/22/16 at 21:00 Pantoprazole (Protonix Iv) 40 mg DAILY@06 IV Last administered on 10/09/16 04: 52; Admin Dose 40 MG; Start 09/26/16 at 06:00 IV Flush (NS 10 ml) 10 ml PRN PRN IV IV PROTOCOL; Start 09/25/16 at 12:00 Spironolactone 50 mg 50 mg DAILY NGT Last administered on 10/09/16 09:44; Admin Dose 50 MG; Start 09/28/16 at 09:00 Dopamine HCl/ Dextrose 250 ml @ 6.053 mls/ hr TITRATE IV Last administered on 09/30/16 04:46; Admin Dose 6.053 MLS/HR; Start 09/29/16 at 11:00 Phenylephrine HCl 40 mg/Dextrose 500 ml @ 75 mls/hr TITRATE IV ; Start at 14:00 Caspofungin/ Sodium Chloride (Cancidas/NS) 250 ml @ 250 mls/hr Q24H IVPB Last administered on 10/09/16 11:49; Admin Dose 250 MLS/HR; Start 10/01/16 at 12:00 Furosemide (Lasix) 20 mg Q6 IV Last administered on 10/09/16 11:49; Admin Dose 20 MG; Start 10/05/16 at 13:00 Lorazepam 0.5 mg 0.5 mg Q6H PRN IV AGITATION/ANXIETY Last administered on 23:21; Admin Dose 0.5 MG; Start 10/05/16 at 23:00 Propofol 100 ml @ 2.421 mls/ hr Q12H IV Last administered on 10/09/16 02:48; Admin Dose 7.263 MLS/HR; Start 10/06/16 at 14:30 Fentanyl 100 ml @ 2.5 mls/hr TITRATE IV Last administered on 10/08/16 18:54; Admin Dose 2.5 MLS/HR; Start 10/07/16 at 09:30 Tigecycline/ Sodium Chloride (Tygacil/NS) 100 ml @ 200 mls/hr Q12 IVPB Last administered on 10/09/16 10:24; Admin Dose 200 MLS/HR; Start 10/07/16 at 21:00 Morphine Sulfate (morphine) 2 mg Q4H PRN IV PAIN; Start 10/07/16 at 14:30 DALE RODARTE Oct 09, 2016 13:47
--- NOTE | 2016-10-09 13:56 | CONS ---
Date/Time of Note Date/Time of Note DATE: 10/09/16 TIME: 13:39 Assessment/Plan Assessment/Plan Chief Complaint/Hosp Course ID PROGRESS NOTE TOTAL ABX DAY # // CURRENT ABX ==> TYGACIL #3 + Cancidas #10 => VANCO IV + MERREM + FLAGYL #8-> DC'd 10/07 => HOSPITAL EVENTS: * s/p 09/21/16 Sigmoid colectomy with performance of end colostomy (Reid's procedure), w/Lysis of adhesions. * s/p 09/21/16 Externalization of PRODUCT DEVELOPMENT SPECIALIST shunt. INDICATION: Possible PRODUCT DEVELOPMENT SPECIALIST shunt infection, ABD abscess * Extubated 10/03 * RE-intubated 09/29 * s/p Left THORA 10/01 * Extubated 10/03 * Re-Intubated 10/06 * 10/08/16 CT Brain: 2. Right frontal PRODUCT DEVELOPMENT SPECIALIST shunt remains in place. No substantial change in size and configuration of the ventricular system. No transependymal CSF leak is identified to suggest uncompensated hydrocephalous. 3. Stable periventricular encephalomalacia in the posterior right temporal lobe. 24H INTERVAL SUMMARY * Remains orally intubated, sedated on propofol, CT, pressors * REPEAT RESPIRATORY CX RESPIRATORY CULTURE Preliminary Organism 1 GRAM NEGATIVE BERNADETTE QUANTITY 1+ Organism 2 MOLD QUANTITY SCANT GROWTH EXAM: 70 yo F ->obtunted on the Vent HEENT:Orally intubated -> Vent Neck: trachea midline. Heart: S1, S2 CXT: chest rise symmetrical breath sounds clear, diminished basis. ABD: Soft, Wound Vac + Colostomy Extremities without cyanosis, (+) edema x4 = dependent edema ID ASSESSMENT 70 yo F w/PMHx ICH and PRODUCT DEVELOPMENT SPECIALIST shunt admit with: 1. s/p Sepsis w/shock , s/p lactic acidosis => Back on pressors 10/06/16 * (+)Leukocytosis * (+)Fevers >101.5 10/07 2. s/p Perforated sigmoid colon w/abscess: POD#-> s/p 09/21/16 Sigmoid colectomy with performance of end colostomy (Reid's procedure), w/Lysis of adhesions. * MICRO: 09/23/16 BODY FLUID CULTURE Final Organism 1 ENTEROCOCCUS SPECIES Organism 2 COAGULASE NEGATIVE STAPH Organism 3 ALPHA HEMOLYTIC STREP SPP . VIRIDANS GROUP 4. ABD WOUND => (+)VAC 5. Acute respiratory failure -> orally RE-intubated 10/06 6. CHF w/elevated BNP => (+)Anasarca w/Pleural effusions s/p CT drain 09/30 7. Bilateral PNA == Present on admission => WORSENING superimposed on pulmonary process POA * 10/02/ ETT aspirate (+) MOLD + yeast ->DDx contaminant, submit new sample * 10/07 ETT aspirate (+) MOLD + GNR -> Pending * 10/08/16 CT CHEST: Multiple bilateral cavitary nodules are again seen, similar to the prior CT - considerations include septic emboli, atypical (fungal, tuberculosis) infectious process, and possibly neoplasm. * CT 09/30 THORA BODY FLUID CULTURE no growth * AFB SMEAR (-) x 2 Final ACID FAST BACILLI NONE SEEN 8. Pancytopenia - sepsis 9. Coagulopathy w/thrombocytopenia 10. (+)Troponin elevation likely type II in the setting of septic shock. Echo from 09/18 showed normal EF and no significant valvular disease. 11. POD # ->S/P 09/21/16 Externalization of PRODUCT DEVELOPMENT SPECIALIST shunt. INDICATION: Possible PRODUCT DEVELOPMENT SPECIALIST shunt infection, hx of Hydrocephalus, PRODUCT DEVELOPMENT SPECIALIST shunt, abdominal abscess (-)MRSA Nares screen INVASIVES: PICC (09/25/16) , ETT, NGT, VPS, FC, intra-abdominal drainage catheters ABX ALLERGY: PCN CURRENT ABX: ==> TYGACIL #2 + Cancidas #9 => VANCO IV + MERREM + FLAGYL #8-> DC'd 10/07 ID RECOMMENDATIONS NOTE: Sputum from ETT grew fungus == Possibly a contaminant; however repeat respiratory cx now (+) for MOLD * QUERY ? [employer] RESPIRATORY CULTURE Preliminary Organism 1 GRAM NEGATIVE BERNADETTE QUANTITY 1+ Organism 2 MOLD QUANTITY SCANT GROWTH 1. Continue ABX 2. Await micro ID of MOLD growing in respiratory culture x 2 3 Send cocci, crypto, aspergillosis, histoplasma serology . . . . Problems: Consultation Date/Type/Reason Admit Date/Time Sep 15, 2016 at 21:35 Initial Consult Date 09/21/16 Type of Consultation: ID Exam/Review of Systems Vital Signs Vitals Vital Signs Date Time Temp Pulse Resp B/P Pulse Ox O2 Delivery O2 Flow Rate FiO2 10/09/16 12:15 86 39 101/58 97 Mechanical Ventilator 10/09/16 12:00 98.8 10/09/16 05:03 40 10/06/16 05:00 2.0 Intake and Output 10/08/16 10/08/16 10/09/16 15:00 23:00 07:00 Intake Total 1780.063 ml 1028.94 ml 176.064 ml Output Total 759 ml 1176 ml 1295 ml Balance 1021.063 ml -147.06 ml -1118.936 ml Results Result Diagram: 10/09/16 0507 10/09/16 0507 Results 24 hrs Laboratory Tests Test 10/09/16 05:07 10/09/16 05:08 White Blood Count 19.6 #H Red Blood Count 3.11 #L Hemoglobin 8.9 #L Hematocrit 27.6 #L Mean Corpuscular Volume 88.7 Mean Corpuscular Hemoglobin 28.6 L Mean Corpuscular Hemoglobin Concent 32.2 Red Cell Distribution Width 21.2 H Platelet Count 178 # Mean Platelet Volume 11.9 H Neutrophils % 90.6 H Lymphocytes % 4.7 L Monocytes % 3.0 Eosinophils % 0.5 Basophils % 0.5 Nucleated Red Blood Cells % 0.0 Neutrophils # 17.8 H Lymphocytes # 0.9 Monocytes # 0.6 Eosinophils # 0.1 Basophils # 0.1 Nucleated Red Blood Cells # 0.0 Prothrombin Time 21.6 H Prothrombin Time Ratio 1.7 INR International Normalized Ratio 1.86 Activated Partial Thromboplast Time 37.0 H Sodium Level 145 H Potassium Level 3.5 Chloride Level 99 Carbon Dioxide Level 35 H Anion Gap 15 Blood Urea Nitrogen 32 H Creatinine 0.90 Glucose Level 100 Lactic Acid Level 1.9 Calcium Level 7.5 L Phosphorus Level 5.1 H Magnesium Level 1.9 Total Bilirubin 0.2 Direct Bilirubin 0.00 Indirect Bilirubin 0.2 Aspartate Amino Transf (AST/SGOT) 13 L Alanine Aminotransferase (ALT/SGPT) 26 Alkaline Phosphatase 187 H B-Type Natriuretic Peptide 8320 H Total Protein 5.8 L Albumin 2.3 L Globulin 3.50 H Albumin/Globulin Ratio 0.65 Lipase 155 Lab Scanned Report BLOOD TRANSFUSION Medications Medications Current Medications Ondansetron HCl (Zofran Inj) 4 mg Q6H PRN IV NAUSEA AND/OR VOMITING Last administered on 09/26/16 09:23; Admin Dose 4 MG; Start 09/16/16 at 00:30 Acetaminophen (Tylenol Tab) 650 mg Q6H PRN PO PAIN LEVEL 1-3 OR FEVER Last administered on 10/08/16 12:47; Admin Dose 650 MG; Start 09/16/16 at 00:30 Polyethylene Glycol 17 gm 17 gm DAILY PO Last administered on 10/09/16 09:44; Admin Dose 17 GM; Start 09/20/16 at 11:00 Norepinephrine/ Dextrose (Levophed/D5W) 500 ml @ 1.87 mls/hr TITRATE IV Last administered on 10/09/16 06:59; Admin Dose 11.25 MLS/HR; Start 09/21/16 at 09:00 Acetaminophen/ Hydrocodone Bitart ([place] (5/325)) 1 tab Q4H PRN PO PAIN LEVEL 4 -7 Last administered on 09/28/16 21:20; Admin Dose 1 TAB; Start 09/21/16 at 15: 00 Acetaminophen/ Hydrocodone Bitart ([place] (5/325)) 2 tab Q4H PRN PO PAIN LEVEL 7 -10; Start 09/21/16 at 15:00 Hydromorphone HCl (Dilaudid) 0.5 mg Q2H PRN IV PAIN Last administered on 16:41; Admin Dose 0.5 MG; Start 09/21/16 at 15:00 Hydromorphone HCl (Dilaudid) 1 mg Q2H PRN IV PAIN Last administered on 23:57; Admin Dose 1 MG; Start 09/21/16 at 15:00 Docusate Sodium (Colace) 100 mg BID PRN PO CONSTIPATION; Start 09/21/16 at 15: 00 Enoxaparin Sodium (Lovenox) 40 mg DAILY SC ; Start 09/22/16 at 09:00; Status Future Hold Docusate Sodium (Colace Liquid Cup) 100 mg BID NGT Last administered on 09:44; Admin Dose 100 MG; Start 09/22/16 at 21:00 Pantoprazole (Protonix Iv) 40 mg DAILY@06 IV Last administered on 10/09/16 04: 52; Admin Dose 40 MG; Start 09/26/16 at 06:00 IV Flush (NS 10 ml) 10 ml PRN PRN IV IV PROTOCOL; Start 09/25/16 at 12:00 Spironolactone 50 mg 50 mg DAILY NGT Last administered on 10/09/16 09:44; Admin Dose 50 MG; Start 09/28/16 at 09:00 Dopamine HCl/ Dextrose 250 ml @ 6.053 mls/ hr TITRATE IV Last administered on 09/30/16 04:46; Admin Dose 6.053 MLS/HR; Start 09/29/16 at 11:00 Phenylephrine HCl 40 mg/Dextrose 500 ml @ 75 mls/hr TITRATE IV ; Start at 14:00 Caspofungin/ Sodium Chloride (Cancidas/NS) 250 ml @ 250 mls/hr Q24H IVPB Last administered on 10/09/16 11:49; Admin Dose 250 MLS/HR; Start 10/01/16 at 12:00 Furosemide (Lasix) 20 mg Q6 IV Last administered on 10/09/16 11:49; Admin Dose 20 MG; Start 10/05/16 at 13:00 Lorazepam 0.5 mg 0.5 mg Q6H PRN IV AGITATION/ANXIETY Last administered on 23:21; Admin Dose 0.5 MG; Start 10/05/16 at 23:00 Propofol 100 ml @ 2.421 mls/ hr Q12H IV Last administered on 10/09/16 02:48; Admin Dose 7.263 MLS/HR; Start 10/06/16 at 14:30 Fentanyl 100 ml @ 2.5 mls/hr TITRATE IV Last administered on 10/08/16 18:54; Admin Dose 2.5 MLS/HR; Start 10/07/16 at 09:30 Tigecycline/ Sodium Chloride (Tygacil/NS) 100 ml @ 200 mls/hr Q12 IVPB Last administered on 10/09/16 10:24; Admin Dose 200 MLS/HR; Start 10/07/16 at 21:00 Morphine Sulfate (morphine) 2 mg Q4H PRN IV PAIN; Start 10/07/16 at 14:30 DONNA HERNANDEZ NP Oct 09, 2016 13:50
--- NOTE | 2016-10-09 15:31 | CONS ---
Date/Time of Note Date/Time of Note DATE: 10/09/16 TIME: 15:20 Assessment/Plan Assessment/Plan Additional Assessment/Plan Assessment * Dysphagia * Acute respiratory failure * Sepsis controlled * S/P left hemicolectomy sec to colonic ischemia * S/P Helio procedure sed to diverticular abscess * S?P chest tube sec to pneumothorax Plan * PEG today risks and benefit explained to jett agreed with the planned procedure * continue present management Consultation Date/Type/Reason Admit Date/Time Sep 15, 2016 at 21:35 Date of Consultation: Oct 09, 2016 Type of Consultation: gastroenterology Reason for Consultation peg placement Referring Provider: DENNY MEDEL Hx of Present Illness 70 year old female referred for PEG insertion.Patient is presently intubated,s/ p RADIOLOGY ASSISTANT shunt,s/p IR drainage secondary to colonic abscess,s/p Helio procedure,S ?P hemicolectomy secondary to colonic ischemia is referred for PEG insertion.Patient has been on NG tube feeding and schedule for tracheostomy hence a gastrostomy tube for feeding will also be inserted Constitutional: disoriented Gastrointestinal: pain Psychological: no complaints Past Medical History Medical History: diverticulitis, other (RADIOLOGY ASSISTANT shunt placed 2000 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) Past Surgical History Past Surgical Hx: bowel resection Social History Alcohol Use: none Smoking Status: Unknown if ever smoked Drug Use: none Exam/Review of Systems Vital Signs Vitals Vital Signs Date Time Temp Pulse Resp B/P Pulse Ox O2 Delivery O2 Flow Rate FiO2 10/09/16 13:25 78 13 98 40 10/09/16 12:15 101/58 Mechanical Ventilator 10/09/16 12:00 98.8 10/06/16 05:00 2.0 Intake and Output 10/08/16 10/08/16 10/09/16 15:00 23:00 07:00 Intake Total 1780.063 ml 1028.94 ml 176.064 ml Output Total 759 ml 1176 ml 1295 ml Balance 1021.063 ml -147.06 ml -1118.936 ml Exam Constitutional: frail Eyes: nl sclera ENMT: intubated Respiratory: crackles/rales, diminished breath sounds Cardiovascular: nl pulses, regular rate and rhythm Gastrointestinal: distended, other (colostomy), soft Neurological: lethargic Skin: other (midline incision on wound vac) Results Result Diagram: 10/09/16 0507 10/09/16 0507 Results 24 hrs Laboratory Tests Test 10/09/16 05:07 10/09/16 05:08 White Blood Count 19.6 #H Red Blood Count 3.11 #L Hemoglobin 8.9 #L Hematocrit 27.6 #L Mean Corpuscular Volume 88.7 Mean Corpuscular Hemoglobin 28.6 L Mean Corpuscular Hemoglobin Concent 32.2 Red Cell Distribution Width 21.2 H Platelet Count 178 # Mean Platelet Volume 11.9 H Neutrophils % 90.6 H Lymphocytes % 4.7 L Monocytes % 3.0 Eosinophils % 0.5 Basophils % 0.5 Nucleated Red Blood Cells % 0.0 Neutrophils # 17.8 H Lymphocytes # 0.9 Monocytes # 0.6 Eosinophils # 0.1 Basophils # 0.1 Nucleated Red Blood Cells # 0.0 Prothrombin Time 21.6 H Prothrombin Time Ratio 1.7 INR International Normalized Ratio 1.86 Activated Partial Thromboplast Time 37.0 H Sodium Level 145 H Potassium Level 3.5 Chloride Level 99 Carbon Dioxide Level 35 H Anion Gap 15 Blood Urea Nitrogen 32 H Creatinine 0.90 Glucose Level 100 Lactic Acid Level 1.9 Calcium Level 7.5 L Phosphorus Level 5.1 H Magnesium Level 1.9 Total Bilirubin 0.2 Direct Bilirubin 0.00 Indirect Bilirubin 0.2 Aspartate Amino Transf (AST/SGOT) 13 L Alanine Aminotransferase (ALT/SGPT) 26 Alkaline Phosphatase 187 H B-Type Natriuretic Peptide 8320 H Total Protein 5.8 L Albumin 2.3 L Globulin 3.50 H Albumin/Globulin Ratio 0.65 Lipase 155 Lab Scanned Report BLOOD TRANSFUSION Medications Medications Current Medications Ondansetron HCl (Zofran Inj) 4 mg Q6H PRN IV NAUSEA AND/OR VOMITING Last administered on 09/26/16 09:23; Admin Dose 4 MG; Start 09/16/16 at 00:30 Acetaminophen (Tylenol Tab) 650 mg Q6H PRN PO PAIN LEVEL 1-3 OR FEVER Last administered on 10/08/16 12:47; Admin Dose 650 MG; Start 09/16/16 at 00:30 Polyethylene Glycol 17 gm 17 gm DAILY PO Last administered on 10/09/16 09:44; Admin Dose 17 GM; Start 09/20/16 at 11:00 Norepinephrine/ Dextrose (Levophed/D5W) 500 ml @ 1.87 mls/hr TITRATE IV Last administered on 10/09/16 06:59; Admin Dose 11.25 MLS/HR; Start 09/21/16 at 09:00 Acetaminophen/ Hydrocodone Bitart ([place] (5/325)) 1 tab Q4H PRN PO PAIN LEVEL 4 -7 Last administered on 09/28/16 21:20; Admin Dose 1 TAB; Start 09/21/16 at 15: 00 Acetaminophen/ Hydrocodone Bitart ([place] (5/325)) 2 tab Q4H PRN PO PAIN LEVEL 7 -10; Start 09/21/16 at 15:00 Hydromorphone HCl (Dilaudid) 0.5 mg Q2H PRN IV PAIN Last administered on 16:41; Admin Dose 0.5 MG; Start 09/21/16 at 15:00 Hydromorphone HCl (Dilaudid) 1 mg Q2H PRN IV PAIN Last administered on 23:57; Admin Dose 1 MG; Start 09/21/16 at 15:00 Docusate Sodium (Colace) 100 mg BID PRN PO CONSTIPATION; Start 09/21/16 at 15: 00 Enoxaparin Sodium (Lovenox) 40 mg DAILY SC ; Start 09/22/16 at 09:00; Status Future Hold Docusate Sodium (Colace Liquid Cup) 100 mg BID NGT Last administered on 09:44; Admin Dose 100 MG; Start 09/22/16 at 21:00 Pantoprazole (Protonix Iv) 40 mg DAILY@06 IV Last administered on 10/09/16 04: 52; Admin Dose 40 MG; Start 09/26/16 at 06:00 IV Flush (NS 10 ml) 10 ml PRN PRN IV IV PROTOCOL; Start 09/25/16 at 12:00 Spironolactone 50 mg 50 mg DAILY NGT Last administered on 10/09/16 09:44; Admin Dose 50 MG; Start 09/28/16 at 09:00 Dopamine HCl/ Dextrose 250 ml @ 6.053 mls/ hr TITRATE IV Last administered on 09/30/16 04:46; Admin Dose 6.053 MLS/HR; Start 09/29/16 at 11:00 Phenylephrine HCl 40 mg/Dextrose 500 ml @ 75 mls/hr TITRATE IV ; Start at 14:00 Caspofungin/ Sodium Chloride (Cancidas/NS) 250 ml @ 250 mls/hr Q24H IVPB Last administered on 10/09/16 11:49; Admin Dose 250 MLS/HR; Start 10/01/16 at 12:00 Furosemide (Lasix) 20 mg Q6 IV Last administered on 10/09/16 11:49; Admin Dose 20 MG; Start 10/05/16 at 13:00 Lorazepam 0.5 mg 0.5 mg Q6H PRN IV AGITATION/ANXIETY Last administered on 23:21; Admin Dose 0.5 MG; Start 10/05/16 at 23:00 Propofol 100 ml @ 2.421 mls/ hr Q12H IV Last administered on 10/09/16 13:55; Admin Dose 7.263 MLS/HR; Start 10/06/16 at 14:30 Fentanyl 100 ml @ 2.5 mls/hr TITRATE IV Last administered on 10/08/16 18:54; Admin Dose 2.5 MLS/HR; Start 10/07/16 at 09:30 Tigecycline/ Sodium Chloride (Tygacil/NS) 100 ml @ 200 mls/hr Q12 IVPB Last administered on 10/09/16 10:24; Admin Dose 200 MLS/HR; Start 10/07/16 at 21:00 Morphine Sulfate (morphine) 2 mg Q4H PRN IV PAIN; Start 10/07/16 at 14:30 CHAPO ALBA MD Oct 09, 2016 15:31
--- NOTE | 2016-10-09 16:11 | CONS ---
Date/Time of Note Date/Time of Note DATE: 10/09/16 TIME: 16:10 Assessment/Plan Assessment/Plan Chief Complaint/Hosp Course Acute respiratory failure: Reintubated again 10/06 Acute diastolic heart failure: Secondary to volume resuscitation in setting of low albumin and third spacing. Significant anasarca. Diuresing Paroxysmal afib: converted on amiodarone. Currently in sinus rhythm Septic shock: intraabdominal abscess, bilateral pneumonia. S/p sigmoid colectomy. Tension pneumothorax: due to thoracentesis. s/p chest tube 09/30 NSTEMI: Trop mildly elevated likely type II in the setting of septic shock. Echo from 09/18 showed normal EF and no significant valvular disease. Repeat trop normalized Diverticulitis complicated by abscess s/p sigmoid colectomy and now colostomy Coagulopathy: ?DIC. 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 Remains intubated. Planned for PEG. Detailed Summary Additional Comments Unable to obtain review of systems, patient is intubated. Exam/Review of Systems Vital Signs Vitals Vital Signs Date Time Temp Pulse Resp B/P Pulse Ox O2 Delivery O2 Flow Rate FiO2 10/09/16 15:30 85 8 118/66 100 Mechanical Ventilator 10/09/16 13:25 40 10/09/16 12:00 98.8 10/06/16 05:00 2.0 Intake and Output 10/08/16 10/08/16 10/09/16 15:00 23:00 07:00 Intake Total 1780.063 ml 1028.94 ml 176.064 ml Output Total 759 ml 1176 ml 1295 ml Balance 1021.063 ml -147.06 ml -1118.936 ml Exam Constitutional: intubated HEENT: NCAT Neck: No obvious JVD, no carotid bruits Respiratory: diminished breath sounds, scattered crackles, no wheezes; chest tube noted Cardiovascular: Tachycardic, regular, no m/r/g, 2+ pitting BLE edema Gastrointestinal: non-tender, soft, grimaces to palpation Extremities: warm, no cyanosis or clubbing, LE SCDs in place Results Result Diagram: 10/09/16 0507 10/09/16 0507 Results 24 hrs Laboratory Tests Test 10/09/16 05:07 10/09/16 05:08 White Blood Count 19.6 #H Red Blood Count 3.11 #L Hemoglobin 8.9 #L Hematocrit 27.6 #L Mean Corpuscular Volume 88.7 Mean Corpuscular Hemoglobin 28.6 L Mean Corpuscular Hemoglobin Concent 32.2 Red Cell Distribution Width 21.2 H Platelet Count 178 # Mean Platelet Volume 11.9 H Neutrophils % 90.6 H Lymphocytes % 4.7 L Monocytes % 3.0 Eosinophils % 0.5 Basophils % 0.5 Nucleated Red Blood Cells % 0.0 Neutrophils # 17.8 H Lymphocytes # 0.9 Monocytes # 0.6 Eosinophils # 0.1 Basophils # 0.1 Nucleated Red Blood Cells # 0.0 Prothrombin Time 21.6 H Prothrombin Time Ratio 1.7 INR International Normalized Ratio 1.86 Activated Partial Thromboplast Time 37.0 H Sodium Level 145 H Potassium Level 3.5 Chloride Level 99 Carbon Dioxide Level 35 H Anion Gap 15 Blood Urea Nitrogen 32 H Creatinine 0.90 Glucose Level 100 Lactic Acid Level 1.9 Calcium Level 7.5 L Phosphorus Level 5.1 H Magnesium Level 1.9 Total Bilirubin 0.2 Direct Bilirubin 0.00 Indirect Bilirubin 0.2 Aspartate Amino Transf (AST/SGOT) 13 L Alanine Aminotransferase (ALT/SGPT) 26 Alkaline Phosphatase 187 H B-Type Natriuretic Peptide 8320 H Total Protein 5.8 L Albumin 2.3 L Globulin 3.50 H Albumin/Globulin Ratio 0.65 Lipase 155 Lab Scanned Report BLOOD TRANSFUSION Medications Medications Current Medications Ondansetron HCl (Zofran Inj) 4 mg Q6H PRN IV NAUSEA AND/OR VOMITING Last administered on 09/26/16 09:23; Admin Dose 4 MG; Start 09/16/16 at 00:30 Acetaminophen (Tylenol Tab) 650 mg Q6H PRN PO PAIN LEVEL 1-3 OR FEVER Last administered on 10/08/16 12:47; Admin Dose 650 MG; Start 09/16/16 at 00:30 Polyethylene Glycol 17 gm 17 gm DAILY PO Last administered on 10/09/16 09:44; Admin Dose 17 GM; Start 09/20/16 at 11:00 Norepinephrine/ Dextrose (Levophed/D5W) 500 ml @ 1.87 mls/hr TITRATE IV Last administered on 10/09/16 06:59; Admin Dose 11.25 MLS/HR; Start 09/21/16 at 09:00 Acetaminophen/ Hydrocodone Bitart ([place] (5/325)) 1 tab Q4H PRN PO PAIN LEVEL 4 -7 Last administered on 09/28/16 21:20; Admin Dose 1 TAB; Start 09/21/16 at 15: 00 Acetaminophen/ Hydrocodone Bitart ([place] (5/325)) 2 tab Q4H PRN PO PAIN LEVEL 7 -10; Start 09/21/16 at 15:00 Hydromorphone HCl (Dilaudid) 0.5 mg Q2H PRN IV PAIN Last administered on 16:41; Admin Dose 0.5 MG; Start 09/21/16 at 15:00 Hydromorphone HCl (Dilaudid) 1 mg Q2H PRN IV PAIN Last administered on 23:57; Admin Dose 1 MG; Start 09/21/16 at 15:00 Docusate Sodium (Colace) 100 mg BID PRN PO CONSTIPATION; Start 09/21/16 at 15: 00 Enoxaparin Sodium (Lovenox) 40 mg DAILY SC ; Start 09/22/16 at 09:00; Status Future Hold Docusate Sodium (Colace Liquid Cup) 100 mg BID NGT Last administered on 09:44; Admin Dose 100 MG; Start 09/22/16 at 21:00 Pantoprazole (Protonix Iv) 40 mg DAILY@06 IV Last administered on 10/09/16 04: 52; Admin Dose 40 MG; Start 09/26/16 at 06:00 IV Flush (NS 10 ml) 10 ml PRN PRN IV IV PROTOCOL; Start 09/25/16 at 12:00 Spironolactone 50 mg 50 mg DAILY NGT Last administered on 10/09/16 09:44; Admin Dose 50 MG; Start 09/28/16 at 09:00 Dopamine HCl/ Dextrose 250 ml @ 6.053 mls/ hr TITRATE IV Last administered on 09/30/16 04:46; Admin Dose 6.053 MLS/HR; Start 09/29/16 at 11:00 Phenylephrine HCl 40 mg/Dextrose 500 ml @ 75 mls/hr TITRATE IV ; Start at 14:00 Caspofungin/ Sodium Chloride (Cancidas/NS) 250 ml @ 250 mls/hr Q24H IVPB Last administered on 10/09/16 11:49; Admin Dose 250 MLS/HR; Start 10/01/16 at 12:00 Furosemide (Lasix) 20 mg Q6 IV Last administered on 10/09/16 11:49; Admin Dose 20 MG; Start 10/05/16 at 13:00 Lorazepam 0.5 mg 0.5 mg Q6H PRN IV AGITATION/ANXIETY Last administered on 23:21; Admin Dose 0.5 MG; Start 10/05/16 at 23:00 Propofol 100 ml @ 2.421 mls/ hr Q12H IV Last administered on 10/09/16 13:55; Admin Dose 7.263 MLS/HR; Start 10/06/16 at 14:30 Fentanyl 100 ml @ 2.5 mls/hr TITRATE IV Last administered on 10/08/16 18:54; Admin Dose 2.5 MLS/HR; Start 10/07/16 at 09:30 Tigecycline/ Sodium Chloride (Tygacil/NS) 100 ml @ 200 mls/hr Q12 IVPB Last administered on 10/09/16 10:24; Admin Dose 200 MLS/HR; Start 10/07/16 at 21:00 Morphine Sulfate (morphine) 2 mg Q4H PRN IV PAIN; Start 10/07/16 at 14:30 AVINASH FERNANDEZ MD Oct 09, 2016 16:11
[2016-10-09] MEDS ORDERED: MIDAZOLAM 1 MG/ML 2 ML INJ ONE (17:31)
[2016-10-09] MEDS ORDERED: FENTAnyl 50 MCG/ML VIAL ONE ×2 (17:31)
--- NOTE | 2016-10-09 18:05 | OPR ---
Date/Time of Note Date/Time of Note DATE: 10/09/16 TIME: 18:02 Operative Report Preoperative Diagnosis Dysphagia Postoperative Diagnosis Impression: 2 X 1 cm benign . Biopsied Post uneventful PEG Plan: PPI bid Review path Start feedings in AM . Operation/Procedure Performed EGD + PEG EGD + Bx Surgeon: CHAPO ALBA MD Anesthesia: MAC Estimated Blood Loss: minimal Specimens Gastric ulcer Grafts/Implants Fr# 20 GT Complications: None CHAPO ALBA MD Oct 09, 2016 18:05
--- NOTE | 2016-10-09 18:49 | PN ---
Date/Time of Note Date/Time of Note DATE: 10/09/16 TIME: 18:48 Assessment/Plan VTE Prophylaxis VTE Prophylaxis Intervention: other Lines/Catheters IV Catheter Type (from [facility]): Central line still needed: No Urinary Cath still in place: No Assessment/Plan Chief Complaint/Hosp Course This is a 70-year-old female admitted with a perforated colon and contained abscess underwent a drainage procedure on further colonic procedures patient is currently in the intensive care unit unable to come off the ventilator secondary to multiple medical problems Patient was extubated and had to be input intubated again has been treated for septic shock lactic acidosis peritonitis currently has an end colostomy Helio pouch and has undergone colon resection patient also has a right-sided chest tube for a pneumothorax She was reintubated again 2 days ago Plan for tracheostomy on Friday Problems: Subjective 24 Hr Interval Summary Gastrointestinal: no complaints Genitourinary: no complaints Musculoskeletal: no complaints Skin: no complaints Neurologic: no complaints Endocrine: no complaints Exam/Review of Systems Vital Signs Vitals Vital Signs Date Time Temp Pulse Resp B/P Pulse Ox O2 Delivery O2 Flow Rate FiO2 10/09/16 17:35 84 13 98 40 10/09/16 16:30 108/59 Mechanical Ventilator 10/09/16 16:00 98.3 10/06/16 05:00 2.0 Intake and Output 10/08/16 10/08/16 10/09/16 15:00 23:00 07:00 Intake Total 1780.063 ml 1028.94 ml 176.064 ml Output Total 759 ml 1176 ml 1295 ml Balance 1021.063 ml -147.06 ml -1118.936 ml Exam ENMT: nl external ears & nose, nl lips & teeth, nl nasal mucosa & septum Neck: non-tender, supple Respiratory: clear to auscultation, normal air movement Cardiovascular: nl pulses, regular rate and rhythm Gastrointestinal: nl liver, spleen, non-tender, soft Results Result Diagram: 10/09/16 0507 10/09/16 0507 Results 24 hrs Laboratory Tests Test 10/09/16 05:07 10/09/16 05:08 White Blood Count 19.6 #H Red Blood Count 3.11 #L Hemoglobin 8.9 #L Hematocrit 27.6 #L Mean Corpuscular Volume 88.7 Mean Corpuscular Hemoglobin 28.6 L Mean Corpuscular Hemoglobin Concent 32.2 Red Cell Distribution Width 21.2 H Platelet Count 178 # Mean Platelet Volume 11.9 H Neutrophils % 90.6 H Lymphocytes % 4.7 L Monocytes % 3.0 Eosinophils % 0.5 Basophils % 0.5 Nucleated Red Blood Cells % 0.0 Neutrophils # 17.8 H Lymphocytes # 0.9 Monocytes # 0.6 Eosinophils # 0.1 Basophils # 0.1 Nucleated Red Blood Cells # 0.0 Prothrombin Time 21.6 H Prothrombin Time Ratio 1.7 INR International Normalized Ratio 1.86 Activated Partial Thromboplast Time 37.0 H Sodium Level 145 H Potassium Level 3.5 Chloride Level 99 Carbon Dioxide Level 35 H Anion Gap 15 Blood Urea Nitrogen 32 H Creatinine 0.90 Glucose Level 100 Lactic Acid Level 1.9 Calcium Level 7.5 L Phosphorus Level 5.1 H Magnesium Level 1.9 Total Bilirubin 0.2 Direct Bilirubin 0.00 Indirect Bilirubin 0.2 Aspartate Amino Transf (AST/SGOT) 13 L Alanine Aminotransferase (ALT/SGPT) 26 Alkaline Phosphatase 187 H B-Type Natriuretic Peptide 8320 H Total Protein 5.8 L Albumin 2.3 L Globulin 3.50 H Albumin/Globulin Ratio 0.65 Lipase 155 Lab Scanned Report BLOOD TRANSFUSION Medications Medications Current Medications Ondansetron HCl (Zofran Inj) 4 mg Q6H PRN IV NAUSEA AND/OR VOMITING Last administered on 09/26/16 09:23; Admin Dose 4 MG; Start 09/16/16 at 00:30 Acetaminophen (Tylenol Tab) 650 mg Q6H PRN PO PAIN LEVEL 1-3 OR FEVER Last administered on 10/08/16 12:47; Admin Dose 650 MG; Start 09/16/16 at 00:30 Polyethylene Glycol 17 gm 17 gm DAILY PO Last administered on 10/09/16 09:44; Admin Dose 17 GM; Start 09/20/16 at 11:00 Norepinephrine/ Dextrose (Levophed/D5W) 500 ml @ 1.87 mls/hr TITRATE IV Last administered on 10/09/16 06:59; Admin Dose 11.25 MLS/HR; Start 09/21/16 at 09:00 Acetaminophen/ Hydrocodone Bitart ([place] (5/325)) 1 tab Q4H PRN PO PAIN LEVEL 4 -7 Last administered on 09/28/16 21:20; Admin Dose 1 TAB; Start 09/21/16 at 15: 00 Acetaminophen/ Hydrocodone Bitart ([place] (5/325)) 2 tab Q4H PRN PO PAIN LEVEL 7 -10; Start 09/21/16 at 15:00 Hydromorphone HCl (Dilaudid) 0.5 mg Q2H PRN IV PAIN Last administered on 16:41; Admin Dose 0.5 MG; Start 09/21/16 at 15:00 Hydromorphone HCl (Dilaudid) 1 mg Q2H PRN IV PAIN Last administered on 23:57; Admin Dose 1 MG; Start 09/21/16 at 15:00 Docusate Sodium (Colace) 100 mg BID PRN PO CONSTIPATION; Start 09/21/16 at 15: 00 Enoxaparin Sodium (Lovenox) 40 mg DAILY SC ; Start 09/22/16 at 09:00; Status Future Hold Docusate Sodium (Colace Liquid Cup) 100 mg BID NGT Last administered on 09:44; Admin Dose 100 MG; Start 09/22/16 at 21:00 IV Flush (NS 10 ml) 10 ml PRN PRN IV IV PROTOCOL; Start 09/25/16 at 12:00 Spironolactone 50 mg 50 mg DAILY NGT Last administered on 10/09/16 09:44; Admin Dose 50 MG; Start 09/28/16 at 09:00 Dopamine HCl/ Dextrose 250 ml @ 6.053 mls/ hr TITRATE IV Last administered on 09/30/16 04:46; Admin Dose 6.053 MLS/HR; Start 09/29/16 at 11:00 Phenylephrine HCl 40 mg/Dextrose 500 ml @ 75 mls/hr TITRATE IV ; Start at 14:00 Caspofungin/ Sodium Chloride (Cancidas/NS) 250 ml @ 250 mls/hr Q24H IVPB Last administered on 10/09/16 11:49; Admin Dose 250 MLS/HR; Start 10/01/16 at 12:00 Furosemide (Lasix) 20 mg Q6 IV Last administered on 10/09/16 18:29; Admin Dose 20 MG; Start 10/05/16 at 13:00 Lorazepam 0.5 mg 0.5 mg Q6H PRN IV AGITATION/ANXIETY Last administered on 23:21; Admin Dose 0.5 MG; Start 10/05/16 at 23:00 Propofol 100 ml @ 2.421 mls/ hr Q12H IV Last administered on 10/09/16 13:55; Admin Dose 7.263 MLS/HR; Start 10/06/16 at 14:30 Fentanyl 100 ml @ 2.5 mls/hr TITRATE IV Last administered on 10/08/16 18:54; Admin Dose 2.5 MLS/HR; Start 10/07/16 at 09:30 Tigecycline/ Sodium Chloride (Tygacil/NS) 100 ml @ 200 mls/hr Q12 IVPB Last administered on 10/09/16 10:24; Admin Dose 200 MLS/HR; Start 10/07/16 at 21:00 Morphine Sulfate (morphine) 2 mg Q4H PRN IV PAIN; Start 10/07/16 at 14:30 Pantoprazole (Protonix Iv) 40 mg BID@06,18 IV Last administered on 10/09/16 18: 29; Admin Dose 40 MG; Start 10/09/16 at 18:00 GIL PINEDA MD Oct 09, 2016 18:48
--- NOTE | 2016-10-09 21:08 | GILP ---
DATE OF PROCEDURE: 10/09/2016 PROCEDURES PERFORMED: 1. Esophagogastroduodenoscopy with biopsies. 2. Esophagogastroduodenoscopy with percutaneous endoscopic gastrotomy tube placement. BRIEF HISTORY AND INDICATIONS: The patient with protracted recovery from complicated colonic surgery. PREMEDICATION: Monitored anesthesia care by anesthesiologist. INSTRUMENT USED: Olympus endoscopy. TECHNIQUE: After informed consent, with the patient and/or family members understanding the procedure, its indications, potential risks and complications, including but not limited to: allergic reaction, bleeding, perforation, infection or leakage, and after all pertinent questions were answered to the patient and/or family members satisfaction, the patient and/or family member signed witnessed informed consent. Following this, premedication was administered slowly IV push, under careful cardiovascular and respiratory monitoring with pulse oximetry, blood pressure and sales project coordinator. Once the sedative effect was achieved the patient was place in the supine position, the panendoscope was introduced and advanced under visual guidance. Careful examination of the upper gastrointestinal tract, on insertion as well as withdrawal of the instrument disclosed the following findings: ESOPHAGUS: Normal. The mucosa of the entire esophagus appears within normal limits. There is no evidence of esophagitis, varices, neoplasm or stricture. STOMACH: Upon entrance to the stomach air was insufflated, the gastric woodruff distended normally. There is a large 2 x 1 cm ulceration in the mid body of the stomach in the anterior wall. The ulcer has benign endoscopic appearance, limited biopsies were obtained. The remainder of the gastric mucosa shows moderate erythema and otherwise is unremarkable. PYLORUS: The pylorus appears patent and within normal limits, with no evidence of gastric outlet obstruction. DUODENUM: The duodenal mucosa was carefully examined in the duodenal bulb as well as the second portion of the duodenum and appears unremarkable with no evidence of duodenitis, ulcer or neoplasm. The instrument was then brought back to the stomach and the anterior wall mid-body was identified by transillumination and "finger indentation", this area was then marked in the anterior wall of the abdomen, it was cleansed with Betadine and infiltrated with Xylocaine 1%. Following this a trocar needle was introduced into the gastric lumen under visual control with the endoscope, once in the gastric lumen a guide wire was advanced and secured with a polypectomy snare, at this point the endoscope was withdrawn bringing the guide wire out through the patients mouth. Following this a gastrostomy tube was introduced over the guide wire, with the Sacks-Vinne technique without difficulty, a small incision was performed in the skin to allow easy passage of the G-tube, once the position of the gastrostomy tube was confirmed, the external stopper and connectors were installed, and a clean dressing applied. The gastrotomy tube used was a [place] 20 gastrotomy tube. The patient tolerated the procedure well and was transfer out of the endoscopy suite awake, and in good condition to continue recovery under observation, feedings will started in the next 12- 24h and gastrostomy care will be instituted. IMPRESSION: 1. A 2 x 1 cm benign appearing gastric ulceration with no stigmata. Biopsies obtained. Rule out Helicobacter infection. 2. Post uneventful percutaneous endoscopic gastrostomy tube placement. Placement of British 20 gastrotomy tube with no incident or complication. RECOMMENDATIONS: 1. Feedings will be started tomorrow morning. 2. Patient will be placed on Protonix b.i.d. 3. Pathology will be reviewed as soon as available. 4. Follow-up EGD in 8 weeks. 5. He was advised his clinical condition is appropriate. Dictated By: Thais Seymour MD /rhina/shari /Document#: [id number]
--- NOTE | 2016-10-09 21:25 | PN ---
Date/Time of Note Date/Time of Note DATE: 10/09/16 TIME: 21:21 Assessment/Plan Lines/Catheters IV Catheter Type (from Nrsg): Shore in Place (from Nrsg): No Assessment/Plan Assessment/Plan [facility] Progress Note Date of Service: 10/09/2016 Place of service: [facility] ICU Today's Assessment & Plan: Overall stable. Abdomen continues to remain benign. Awaiting PEG and trach. Will likely need drainage of perihepatic fluid collections. No indication for acute surgical intervention. With above assessment, I recommended the following for today: 1. Continue aggressive medical management with intubation; CODE STATUS at this point is DO NOT RESUSCITATE but with intubation being okay and no chest compressions or electric shocks. Chemical code is okay. 2. Continue wound VAC; dressing change 3 times a week 3. Cont aggressive pulmonary toilet 4. Cont Lasix as allowed by her clinical condition 5. Labs in am 6. Please maintain multidisciplinary discussion regarding fluid intake, CODE STATUS, and other major medical decisions since this is a fragile surgical patient with recent sepsis and shock; I changed code status to full code, but without chest compression or electric shock 7. Targeted antimicrobial therapy to culture results 8. PT OT 9. Management of [employer] SUPERVISOR shunt per Dr. Miner (much appreciate the care) 10. Continue NG gastric feeds with plans for PEG placement later this week 11. Keep in the ICU 12. Social work and case management to please start working on disposition planning (rehab versus SNF) 13. Please note: Guille, who is the patient's decision maker currently, would like Mr. Yanez (patient's ex-) to still be involved in her care. He should still have full access to the hospital and patient according to Guille. 14. Tracheostomy per Dr. Jones 15. GI consultation both for possible GI bleeding as well as for PEG placement 16. CT chest, abdomen, and pelvis 17. Eval GI bleed with gastroenterology; maintain PPI's Thank you again for your great care of this very pleasant patient and wonderful family. If there are any questions, please feel free to call me at [phone]. Nature of presenting problem: High severity Please note that, given the extensive number of diagnoses or management options , the extensive amount and/or complexity of data needed to be reviewed, and I risk of complications and/or morbidity or mortality, this qualifies as high complexity type of decision-making. Disclaimer: Inadvertent spelling and grammatical errors are likely due to EHR/ dictation software use and do not reflect on the quality of delivered patient care. Also, please note that the electronic time recorded on this node does not necessarily reflect the actual time of the visit. 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 S/p IR drainage 09/09/16 with removal of 20 cc pus and placement of a 10 Fr. pigtail catheter at [facility]. D/c home 09/12/16. Re-presented to [place] ED 09/15/16 after being diverted from [facility] (due to internal disaster diversion) where CT was done showing adequate placement of the percutaneous drain near the sigmoid colon and decompressed sigmoid colon abscess, no obvious free air or significant spillage of stool in the abdominal cavity, and incidental finding of tail of the [employer] UT[employer] SUPERVISOR shunt in the pelvis (new from right upper quadrant position of the same drain on the CT scan at [facility]). Transfer to [facility] 09/15/2016 for further cares. S/p upsizing of drain to 12 Fr pigtail on 09/17/16 (communication with colon demonstrated; no obvious free communication to rest of peritoneal space). Patient decompensated in the early hours of the morning on 09/21/2016 and had to be transferred to the intensive care unit with need for endotracheal tube intubation, central line placement, and resuscitation for treatment of shock with lactic acidosis and evidence of peritonitis and free air on the new chest, abdomen, and pelvis CT scan. S/p a rather challenging sigmoid colectomy with performance of end colostomy (Reid's procedure), takedown of splenic flexure of the colon, lysis of adhesions (60 minutes), and abdominal lavage at [facility] on 09/21/16; diagnosis of colon ischemia (distal transverse colon and descending colon) during reentry through recent laparotomy incision with exploration of abdominal cavity, takedown of colostomy, completion left hemicolectomy with resection of distal transverse colon, lysis of adhesions, abdominal lavage, performance of an end colostomy [facility] 09/24/16. Extubated post op evening of 09/25/16. Decompensation with intubation and restart of pressors . Right-sided pneumothorax after drainage of right pleural effusion requiring chest tube placement 09/30/2016. Extubated 10/03/2016. Decompensation with reintubation 10/06/16. Comorbidities: 1. Perforated sigmoid colon (see below) 2. Status post ventriculoperitoneal shunt placement. 3. Status post prior hysterectomy and bilateral salpingo-oophorectomy through Pfannenstiel incision 4. S/p IR drainage 09/09/16 with removal of 20 cc pus and placement of a 10 Fr. pigtail catheter at [facility]. 5. Readmission to [facility] 09/15/16 with upsizing of drain to 12 Fr pigtail on (communication with colon demonstrated; no obvious free communication to rest of peritoneal space). Septic shock with multiorgan failure 09/21/2016 requiring ICU admission with intubation and pressors. 6. S/p a rather challenging sigmoid colectomy with performance of end colostomy (Reid's procedure), takedown of splenic flexure of the colon, lysis of adhesions (60 minutes), and abdominal lavage at [facility] on 09/21/16 7. Colon ischemia (distal transverse colon and descending colon) 8. S/p reentry through recent laparotomy incision with exploration of abdominal cavity, takedown of colostomy, completion left hemicolectomy with resection of distal transverse colon, lysis of adhesions, abdominal lavage, performance of an end colostomy [facility] 09/24/16 Subjective: Remain intubated without major events. Lethargic and not communicative. Overall same as yesterday. Objective: Vitals: See below I's & O's: See below Exam: GENERAL: On exam, the patient was lying in bed and appeared to be breathing shallow and tachypneic. No obvious acute distress. ABDOMEN: Soft, nontender and nondistended. Incision dressings are clean, dry and intact without any obvious evidence of underlying erythema, edema, discharge , or hernia. Surgical drain ss without any evidence of enteric contents. There are no peritoneal signs or guarding. Ostomy appears to be viable and productive with stool and air in the bag. SKIN: Skin appears to be pink and feels warm to touch. NEUROLOGIC: Patient is arousable with voice but for the most part noncommunicative and does not respond to simple commands. Remains intubated and sedated. Labs: See below Exam/Review of Systems Vital Signs Vitals Vital Signs Date Time Temp Pulse Resp B/P Pulse Ox O2 Delivery O2 Flow Rate FiO2 10/10/16 12:30 80 12 95/75 97 Mechanical Ventilator 10/10/16 12:00 98.8 10/10/16 07:30 40 Intake and Output 10/09/16 10/09/16 10/10/16 15:00 23:00 07:00 Intake Total 512.85 ml 253.6 ml 153.6 ml Output Total 685 ml 1000 ml 1075 ml Balance -172.15 ml -746.4 ml -921.4 ml Results Result Diagram: 10/10/16 0430 10/10/16 0430 ALEXSANDER DUARTE M.D. Oct 09, 2016 21:25 ALEXSANDER DUARTE M.D. Oct 09, 2016 21:25
[2016-10-10] VITALS (71 sets, daily range): BP systolic 84–123; BP diastolic 39–83; PULSE 73–117; RESP 0–22
[2016-10-10] MEDS: ALBUTEROL 18 GM INHALER INH SCH ×6 (00:14→21:26)
[2016-10-10] MEDS: IPRATROPIUM (HFA) 12.9 GM INHALER INH SCH ×6 (00:14→21:26)
[2016-10-10] MEDS: FUROSEMIDE 20 MG INJ IV SCH ×4 (00:21→17:32)
[2016-10-10] MEDS: PROPOFOL 100 ML IV SCH ×2 (00:21→11:33)
[2016-10-10] MEDS: FENTAnyl (DRIP) 1000 mcg/100mL 100 ML IV SCH ×2 (00:21→14:14)
[2016-10-10] MEDS: PANTOPRAZOLE 40 MG INJ IV SCH ×2 (05:28→17:32)
[2016-10-10 05:43] LABS: HEMATOCRIT 25.5 % (37.0-47.0); HEMOGLOBIN 8.1 g/dl (12.0-16.0); MEAN CORPUSCULAR HEMOGLOBIN 28.3 pg (29.0-33.0); MEAN CORPUSCULAR HGB CONC 31.8 g/dl (32.0-37.0); MEAN CORPUSCULAR VOLUME 89.2 fl (82.0-101.0); MEAN PLATELET VOLUME 12.6 fl (7.4-10.4); PLATELET COUNT 159 10^3/UL (140-415); RED BLOOD COUNT 2.86 10^6/ul (4.20-5.40); RED CELL DISTRIBUTION WIDTH 21.6 % (11.5-14.5); WHITE BLOOD COUNT 21.7 10^3/ul (4.8-10.8)
[2016-10-10 05:55] LABS: POSITIVE DIFF @See below
[2016-10-10 06:20] LABS: CALCIUM 7.4 mg/dl (8.4-10.2); CREATININE 0.95 mg/dl (0.44-1.00); MAGNESIUM 2.1 mg/dl (1.7-2.5); PHOSPHORUS 6.1 mg/dl (2.5-4.9); POTASSIUM 3.2 mmol/L (3.5-5.1)
[2016-10-10] MEDS: POTASSIUM CHLORIDE 250 ML IVPB SCH ×2 (08:01→11:33)
[2016-10-10] MEDS: POLYETHYLENE GLYCOL 17 GM PACKET PO SCH (08:09)
[2016-10-10] MEDS: SPIRONOLACTONE 50 MG TAB NGT SCH (08:09)
[2016-10-10] MEDS: DOCUSATE SODIUM 10 MG/ML (10ML CUP) NGT SCH ×2 (08:09→20:43)
[2016-10-10] MEDS: TIGECYCLINE 50 MG in SOD CHLORIDE 0.9% 100 ML IVPB SCH ×2 (08:10→20:43)
--- NOTE | 2016-10-10 09:31 | PN ---
DATE: 10/10/2016 SUBJECTIVE DATA: The patient is critically ill. Full ventilatory support. The patient is making adequate urinary output. No other events noted. OBJECTIVE DATA: VITAL SIGNS: Blood pressure is 107/57, respirations 16, pulse 84, temperature 98.6. Intake and output, reviewed. The patient had 900 in, 2.68 out. HEENT: Head is normocephalic. NECK: Supple. HEART: Regular rate. LUNGS: Diminished breath sounds at the base. ABDOMEN: Soft, nontender to palpation. No rebound or guarding. EXTREMITIES: Negative for clubbing or cyanosis. Positive edema. DERMATOLOGIC: Clean. No rashes. MUSCULOSKELETAL: No joint effusion. NEUROLOGIC: No change in exam. MEDICATIONS: Reviewed. LABORATORY AND DIAGNOSTIC DATA: Shows sodium 146, potassium 3.2, chloride 98, BUN 36, creatinine 0.94, phosphorus 6.1. White count 21.7, hemoglobin 8.1, hematocrit 25.5, platelet count is 159. IMAGING STUDY: Chest x-ray, a CT scan of the brain reviewed. CT scan of the abdomen pelvis reviewed. ASSESSMENT AND PLAN: 1. Nonoliguric acute kidney injury secondary to acute tubular necrosis. The patient's renal function has been fluctuating, but overall has been stable. At this point, continue current treatment plan and supportive care. Renally dose all medications. 2. Hypernatremia, stable. Continue free water flushes. 3. Hypokalemia. Etiology secondary to diuretic therapy. Will replete potassium chloride. 4. Volume overload anasarca secondary to congestive heart failure, third spacing. The patient remains on diuretic therapy. Continue management with Cardiology. Continue to monitor. 5. Metabolic alkalemia. Continue to monitor. Consider giving a course of Diamox. 6. Septic shock. The patient remains on IV pressors, IV antibiotics. Continue to monitor. 7. Anemia. Monitor H and H levels. 8. Mineral bone disorder. Monitor calcium and phosphorus levels. 9. Ventilatory-dependent respiratory failure. Vent settings reviewed. ABGs reviewed. Continue to monitor. 10. Perforated viscus status post colectomy and colostomy bag. 11. 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 Dictated By: Agustin Sanchez DO /rhina/candie /Document#: [id number]
[2016-10-10 09:33] LABS: ANISOCYTOSIS 2+ (0-0); GIANT THROMBO% (M) 2 % (0-0); HYPOCHROMASIA 1+ (0-0); MONOCYTES % (M) 1 % (0-11); PLATELET ESTIMATE NORMAL; POIKILOCYTOSIS 1+ (0-0); POLYCHROMASIA 3+ (0-0)
--- NOTE | 2016-10-10 10:12 | CONS ---
Date/Time of Note Date/Time of Note DATE: 10/10/16 TIME: 10:04 Assessment/Plan Assessment/Plan Additional Assessment/Plan I reviewed medical records in detail once again and spoke with Dr. Maldonado. Although patient has had a very raad course she still has a favorable prognosis for full recovery. She was healthy prior to this catastrophic event and without major medical problems. According to Dr. Maldonado she will require more interventions with drain placement in the future . Based upon the above I believe ethically we should proceed with aggressive intervention and until Dr. Maldonado or family members feel there is either no quality of life or continued aggressive care is futile. Patient remains encephalopathic and decision making is deferred to her ex- who was given decision-making authority by patient 's relative who lives on the [facility] Consultation Date/Type/Reason Admit Date/Time Sep 15, 2016 at 21:35 Initial Consult Date 09/21/16 Type of Consultation: Palliative care Exam/Review of Systems Vital Signs Vitals Vital Signs Date Time Temp Pulse Resp B/P Pulse Ox O2 Delivery O2 Flow Rate FiO2 10/10/16 07:45 98.9 106 12 99/56 100 Mechanical Ventilator 10/10/16 07:30 40 Intake and Output 10/09/16 10/09/16 10/10/16 15:00 23:00 07:00 Intake Total 512.85 ml 253.6 ml 153.6 ml Output Total 685 ml 1000 ml 1075 ml Balance -172.15 ml -746.4 ml -921.4 ml Results Result Diagram: 10/10/16 0430 10/10/16 0430 Results 24 hrs Laboratory Tests Test 10/10/16 04:30 White Blood Count 21.7 H Red Blood Count 2.86 L Hemoglobin 8.1 L Hematocrit 25.5 L Mean Corpuscular Volume 89.2 Mean Corpuscular Hemoglobin 28.3 L Mean Corpuscular Hemoglobin Concent 31.8 L Red Cell Distribution Width 21.6 H Platelet Count 159 Mean Platelet Volume 12.6 H Neutrophils % Segmented Neutrophils % (Manual) 94 H Lymphocytes % Lymphocytes % (Manual) 5 L Monocytes % Monocytes % (Manual) 1 Eosinophils % Basophils % Nucleated Red Blood Cells % 0.0 Neutrophils # Absolute Lymphocytes (Manual) 1.0 Lymphocytes # Monocytes # Absolute Monocytes (Manual) 0.2 L Eosinophils # Basophils # Nucleated Red Blood Cells # Smudge Cells % 7 H Thrombocytosis 2 H Platelet Estimate NORMAL Polychromasia 3+ Hypochromasia 1+ Poikilocytosis 1+ Anisocytosis 2+ Macrocytosis 1+ Sodium Level 146 H Potassium Level 3.2 L Chloride Level 98 Carbon Dioxide Level 38 H Anion Gap 13 Blood Urea Nitrogen 36 H Creatinine 0.95 Glucose Level 82 Calcium Level 7.4 L Phosphorus Level 6.1 H Magnesium Level 2.1 Medications Medications Current Medications Ondansetron HCl (Zofran Inj) 4 mg Q6H PRN IV NAUSEA AND/OR VOMITING Last administered on 09/26/16 09:23; Admin Dose 4 MG; Start 09/16/16 at 00:30 Acetaminophen (Tylenol Tab) 650 mg Q6H PRN PO PAIN LEVEL 1-3 OR FEVER Last administered on 10/08/16 12:47; Admin Dose 650 MG; Start 09/16/16 at 00:30 Polyethylene Glycol 17 gm 17 gm DAILY PO Last administered on 10/10/16 08:09; Admin Dose 17 GM; Start 09/20/16 at 11:00 Norepinephrine/ Dextrose (Levophed/D5W) 500 ml @ 1.87 mls/hr TITRATE IV Last administered on 10/09/16 06:59; Admin Dose 11.25 MLS/HR; Start 09/21/16 at 09:00 Acetaminophen/ Hydrocodone Bitart ([place] (5/325)) 1 tab Q4H PRN PO PAIN LEVEL 4 -7 Last administered on 09/28/16 21:20; Admin Dose 1 TAB; Start 09/21/16 at 15: 00 Acetaminophen/ Hydrocodone Bitart ([place] (5/325)) 2 tab Q4H PRN PO PAIN LEVEL 7 -10; Start 09/21/16 at 15:00 Hydromorphone HCl (Dilaudid) 0.5 mg Q2H PRN IV PAIN Last administered on 16:41; Admin Dose 0.5 MG; Start 09/21/16 at 15:00 Hydromorphone HCl (Dilaudid) 1 mg Q2H PRN IV PAIN Last administered on 23:57; Admin Dose 1 MG; Start 09/21/16 at 15:00 Docusate Sodium (Colace) 100 mg BID PRN PO CONSTIPATION; Start 09/21/16 at 15: 00 Enoxaparin Sodium (Lovenox) 40 mg DAILY SC ; Start 09/22/16 at 09:00; Status Future Hold Docusate Sodium (Colace Liquid Cup) 100 mg BID NGT Last administered on 08:09; Admin Dose 100 MG; Start 09/22/16 at 21:00 IV Flush (NS 10 ml) 10 ml PRN PRN IV IV PROTOCOL; Start 09/25/16 at 12:00 Spironolactone 50 mg 50 mg DAILY NGT Last administered on 10/10/16 08:09; Admin Dose 50 MG; Start 09/28/16 at 09:00 Dopamine HCl/ Dextrose 250 ml @ 6.053 mls/ hr TITRATE IV Last administered on 09/30/16 04:46; Admin Dose 6.053 MLS/HR; Start 09/29/16 at 11:00 Phenylephrine HCl 40 mg/Dextrose 500 ml @ 75 mls/hr TITRATE IV ; Start at 14:00 Caspofungin/ Sodium Chloride (Cancidas/NS) 250 ml @ 250 mls/hr Q24H IVPB Last administered on 10/09/16 11:49; Admin Dose 250 MLS/HR; Start 10/01/16 at 12:00 Furosemide (Lasix) 20 mg Q6 IV Last administered on 10/10/16 05:28; Admin Dose 20 MG; Start 10/05/16 at 13:00 Lorazepam 0.5 mg 0.5 mg Q6H PRN IV AGITATION/ANXIETY Last administered on 23:21; Admin Dose 0.5 MG; Start 10/05/16 at 23:00 Propofol 100 ml @ 2.421 mls/ hr Q12H IV Last administered on 10/10/16 00:21; Admin Dose 7.263 MLS/HR; Start 10/06/16 at 14:30 Fentanyl 100 ml @ 2.5 mls/hr TITRATE IV Last administered on 10/10/16 00:21; Admin Dose 4.5 MLS/HR; Start 10/07/16 at 09:30 Tigecycline/ Sodium Chloride (Tygacil/NS) 100 ml @ 200 mls/hr Q12 IVPB Last administered on 10/10/16 08:10; Admin Dose 200 MLS/HR; Start 10/07/16 at 21:00 Morphine Sulfate (morphine) 2 mg Q4H PRN IV PAIN; Start 10/07/16 at 14:30 Pantoprazole 40 mg 40 mg BID@06,18 IV Last administered on 10/10/16 05:28; Admin Dose 40 MG; Start 10/09/16 at 18:00 Potassium Chloride (KCl 40 MEQ/250 ML NS) 250 ml @ 62.5 mls/hr Q4H IVPB Last administered on 10/10/16 08:01; Admin Dose 62.5 MLS/HR; Start 10/10/16 at 08:00; Stop 10/10/16 at 15:59 YANETH VIDAL Oct 10, 2016 10:12
[2016-10-10] MEDS: CASPOFUNGIN 50 MG in SOD CHLORIDE 0.9% 250 ML IVPB SCH (11:27)
--- NOTE | 2016-10-10 12:07 | CONS ---
Date/Time of Note Date/Time of Note DATE: 10/10/16 TIME: 12:05 Assessment/Plan Assessment/Plan Additional Assessment/Plan Ventilator setting; AC of 12, tidal volume 500, PEEP of 5, 40% FiO2. Patient currently on Levophed at 4 mics per minute, fentanyl drip at 75 mics per hour. Assessment and recommendations; 1. Patient admitted with sepsis from ileus. Status post colostomy. 2. Bilateral pneumonia, patient status post extubation then had to be reintubated for worsening pneumonia. 3. Persistent hypotension. 4. Anemia. Continue current treatment. Patient scheduled for tracheostomy and G-tube placement. Consultation Date/Type/Reason Admit Date/Time Sep 15, 2016 at 21:35 Initial Consult Date 09/21/16 Type of Consultation: Pulmonary/critical care 24 HR Interval Summary Free Text/Dictation Patient condition remains critical. Still requiring full ventilator support as well as pressor support. General exam; elderly woman, sedated. Currently in no distress. Exam/Review of Systems Vital Signs Vitals Vital Signs Date Time Temp Pulse Resp B/P Pulse Ox O2 Delivery O2 Flow Rate FiO2 10/10/16 11:00 84 14 105/58 96 Mechanical Ventilator 10/10/16 07:45 98.9 10/10/16 07:30 40 Intake and Output 10/09/16 10/09/16 10/10/16 15:00 23:00 07:00 Intake Total 512.85 ml 253.6 ml 153.6 ml Output Total 685 ml 1000 ml 1075 ml Balance -172.15 ml -746.4 ml -921.4 ml Exam HEENT exam; supple neck, no JVD. No lymphadenopathy. Midline trachea. No thyromegaly. Orally intubated. Patient has multiple carious teeth. Chest exam; diminished but clear breath sound. S1-S2 audible no murmurs. Regular rhythm. Abdomen exam; soft, no organomegaly. Colostomy in place. Bowel sounds are audible. Extremity exam; trace edema. GUIDE ALPINE exam; patient is sedated. Results Result Diagram: 10/10/16 0430 10/10/16 0430 Results 24 hrs Laboratory Tests Test 10/10/16 04:30 White Blood Count 21.7 H Red Blood Count 2.86 L Hemoglobin 8.1 L Hematocrit 25.5 L Mean Corpuscular Volume 89.2 Mean Corpuscular Hemoglobin 28.3 L Mean Corpuscular Hemoglobin Concent 31.8 L Red Cell Distribution Width 21.6 H Platelet Count 159 Mean Platelet Volume 12.6 H Neutrophils % Segmented Neutrophils % (Manual) 94 H Lymphocytes % Lymphocytes % (Manual) 5 L Monocytes % Monocytes % (Manual) 1 Eosinophils % Basophils % Nucleated Red Blood Cells % 0.0 Neutrophils # Absolute Lymphocytes (Manual) 1.0 Lymphocytes # Monocytes # Absolute Monocytes (Manual) 0.2 L Eosinophils # Basophils # Nucleated Red Blood Cells # Smudge Cells % 7 H Thrombocytosis 2 H Platelet Estimate NORMAL Polychromasia 3+ Hypochromasia 1+ Poikilocytosis 1+ Anisocytosis 2+ Macrocytosis 1+ Sodium Level 146 H Potassium Level 3.2 L Chloride Level 98 Carbon Dioxide Level 38 H Anion Gap 13 Blood Urea Nitrogen 36 H Creatinine 0.95 Glucose Level 82 Calcium Level 7.4 L Phosphorus Level 6.1 H Magnesium Level 2.1 Medications Medications Current Medications Ondansetron HCl (Zofran Inj) 4 mg Q6H PRN IV NAUSEA AND/OR VOMITING Last administered on 09/26/16 09:23; Admin Dose 4 MG; Start 09/16/16 at 00:30 Acetaminophen (Tylenol Tab) 650 mg Q6H PRN PO PAIN LEVEL 1-3 OR FEVER Last administered on 10/08/16 12:47; Admin Dose 650 MG; Start 09/16/16 at 00:30 Polyethylene Glycol 17 gm 17 gm DAILY PO Last administered on 10/10/16 08:09; Admin Dose 17 GM; Start 09/20/16 at 11:00 Norepinephrine/ Dextrose (Levophed/D5W) 500 ml @ 1.87 mls/hr TITRATE IV Last administered on 10/09/16 06:59; Admin Dose 11.25 MLS/HR; Start 09/21/16 at 09:00 Acetaminophen/ Hydrocodone Bitart ([place] (5/325)) 1 tab Q4H PRN PO PAIN LEVEL 4 -7 Last administered on 09/28/16 21:20; Admin Dose 1 TAB; Start 09/21/16 at 15: 00 Acetaminophen/ Hydrocodone Bitart ([place] (5/325)) 2 tab Q4H PRN PO PAIN LEVEL 7 -10; Start 09/21/16 at 15:00 Hydromorphone HCl (Dilaudid) 0.5 mg Q2H PRN IV PAIN Last administered on 16:41; Admin Dose 0.5 MG; Start 09/21/16 at 15:00 Hydromorphone HCl (Dilaudid) 1 mg Q2H PRN IV PAIN Last administered on 23:57; Admin Dose 1 MG; Start 09/21/16 at 15:00 Docusate Sodium (Colace) 100 mg BID PRN PO CONSTIPATION; Start 09/21/16 at 15: 00 Enoxaparin Sodium (Lovenox) 40 mg DAILY SC ; Start 09/22/16 at 09:00; Status Future Hold Docusate Sodium (Colace Liquid Cup) 100 mg BID NGT Last administered on 08:09; Admin Dose 100 MG; Start 09/22/16 at 21:00 IV Flush (NS 10 ml) 10 ml PRN PRN IV IV PROTOCOL; Start 09/25/16 at 12:00 Spironolactone 50 mg 50 mg DAILY NGT Last administered on 10/10/16 08:09; Admin Dose 50 MG; Start 09/28/16 at 09:00 Dopamine HCl/ Dextrose 250 ml @ 6.053 mls/ hr TITRATE IV Last administered on 09/30/16 04:46; Admin Dose 6.053 MLS/HR; Start 09/29/16 at 11:00 Phenylephrine HCl 40 mg/Dextrose 500 ml @ 75 mls/hr TITRATE IV ; Start at 14:00 Caspofungin/ Sodium Chloride (Cancidas/NS) 250 ml @ 250 mls/hr Q24H IVPB Last administered on 10/10/16 11:27; Admin Dose 250 MLS/HR; Start 10/01/16 at 12:00 Furosemide (Lasix) 20 mg Q6 IV Last administered on 10/10/16 11:27; Admin Dose 20 MG; Start 10/05/16 at 13:00 Lorazepam 0.5 mg 0.5 mg Q6H PRN IV AGITATION/ANXIETY Last administered on 23:21; Admin Dose 0.5 MG; Start 10/05/16 at 23:00 Propofol 100 ml @ 2.421 mls/ hr Q12H IV Last administered on 10/10/16 11:33; Admin Dose 7.263 MLS/HR; Start 10/06/16 at 14:30 Fentanyl 100 ml @ 2.5 mls/hr TITRATE IV Last administered on 10/10/16 00:21; Admin Dose 4.5 MLS/HR; Start 10/07/16 at 09:30 Tigecycline/ Sodium Chloride (Tygacil/NS) 100 ml @ 200 mls/hr Q12 IVPB Last administered on 10/10/16 08:10; Admin Dose 200 MLS/HR; Start 10/07/16 at 21:00 Morphine Sulfate (morphine) 2 mg Q4H PRN IV PAIN; Start 10/07/16 at 14:30 Pantoprazole 40 mg 40 mg BID@06,18 IV Last administered on 10/10/16 05:28; Admin Dose 40 MG; Start 10/09/16 at 18:00 Potassium Chloride (KCl 40 MEQ/250 ML NS) 250 ml @ 62.5 mls/hr Q4H IVPB Last administered on 10/10/16 11:33; Admin Dose 62.5 MLS/HR; Start 10/10/16 at 08:00; Stop 10/10/16 at 15:59 GERARDO JUSTICE Oct 10, 2016 12:07
--- NOTE | 2016-10-10 13:30 | PN ---
Date/Time of Note Date/Time of Note DATE: 10/10/16 TIME: 13:19 Assessment/Plan Lines/Catheters IV Catheter Type (from [facility]): PICC Line Shore in Place (from [facility]): Yes Assessment/Plan Assessment/Plan [facility] Progress Note Date of Service: 10/10/2016 Place of service: [facility] ICU Today's Assessment & Plan: Overall stable. Abdomen continues to remain benign. PEG placed yesterday ( much appreciate Dr. Seymour's excellent care). Trach tentatively scheduled for Friday (much appreciate Dr. Donovan Bell excellent input). Will likely need drainage of perihepatic fluid collections (will discussed with Dr. Cortse). No indication for acute surgical intervention. Please note the following regarding medical and surgical decision-making: In my opinion, the patient is not currently able to make decisions for herself. This has been the case over the course of the last number of weeks. I do believe that patient's ex- is dutifully involved in patient's care and has her best interest in heart. He has been instrumental in being able to take care of her. I also believe that Guille who is the patient's cousin from [place] is also as involved and has the patient's best interest in heart. I believe that there is a 70-80% chance that the patient can recover from her current clinical condition, but this requires staying aggressive with the course and to perform the needed interventions such as the above-mentioned PEG, trach, as well as the percutaneous drains that she needs. From my understanding of the patient's personality, the patient has certain ideas about medicine and interventions which appear to be somewhat this congruent to her desire to be well and healthy. Specifically, the patient had mentioned that she did not trust antimicrobials. She also initially had wanted to leave AGAINST MEDICAL ADVICE when she first presented to [facility] emergency department. Of course, she did stay after several physicians, including myself , spoke with her and explained to her the nature of her problem. She was very much agreeable to continued care both at [facility] as well as the early part of her hospitalization here at [facility]. For this reason, I believe that the patient would be okay with us staying aggressive during this time period, and that she would allow us to perform the needed procedures if she was of sound mind and competent in mind to make decisions for herself. I have spoken to several members of the medical team and we are all in agreement on the above. Patient's family and decision- makers are also agreeable with above. With above assessment, I recommended the following for today: 1. Continue aggressive medical management with intubation; CODE STATUS at this point is DO NOT RESUSCITATE but with intubation being okay and no chest compressions or electric shocks. Chemical code is okay. 2. Continue wound VAC; dressing change 3 times a week 3. Cont aggressive pulmonary toilet 4. Cont Lasix as allowed by her clinical condition 5. Labs in am 6. Please maintain multidisciplinary discussion regarding fluid intake, CODE STATUS, and other major medical decisions since this is a fragile surgical patient with recent sepsis and shock; I changed code status to full code, but without chest compression or electric shock 7. Targeted antimicrobial therapy to culture results 8. PT OT 9. Management of TEST CONDUCTOR shunt per Dr. Miner (much appreciate the care) 10. Continue PEG gastric feeds with goal of 60 cc/h 11. Keep in the ICU 12. Social work and case management to please start working on disposition planning (rehab versus SNF) 13. Please note: Guille, who is the patient's decision maker currently, would like Mr. Yanez (patient's ex-) to still be involved in her care. He should still have full access to the hospital and patient according to Guille. 14. Tracheostomy per Dr. Jones (? Friday) 15. Continue following GI recommendation for management of GI bleeding Thank you again for your great care of this very pleasant patient and wonderful family. If there are any questions, please feel free to call me at [phone]. Nature of presenting problem: High severity Please note that, given the extensive number of diagnoses or management options , the extensive amount and/or complexity of data needed to be reviewed, and I risk of complications and/or morbidity or mortality, this qualifies as high complexity type of decision-making. Disclaimer: Inadvertent spelling and grammatical errors are likely due to EHR/ dictation software use and do not reflect on the quality of delivered patient care. Also, please note that the electronic time recorded on this node does not necessarily reflect the actual time of the visit. Updated Clinical Summary: A very pleasant 70-year-old lady without significant known past medical history other than a TEST CONDUCTOR shunt placement many years ago which she did not remember or report, presenting with what appears to be a sigmoid colon abscess or pericolonic abscess, which seemed to be a complication of diverticulitis. S/p IR drainage 09/09/16 with removal of 20 cc pus and placement of a 10 Fr. pigtail catheter at [facility]. D/c home 09/12/16. Re-presented to [place] ED 09/15/16 after being diverted from [facility] (due to internal disaster diversion) where CT was done showing adequate placement of the percutaneous drain near the sigmoid colon and decompressed sigmoid colon abscess, no obvious free air or significant spillage of stool in the abdominal cavity, and incidental finding of tail of the TEST CONDUCTOR shunt in the pelvis (new from right upper quadrant position of the same drain on the CT scan at [facility]). Transfer to [facility] 09/15/2016 for further cares. S/p upsizing of drain to 12 Fr pigtail on 09/17/16 (communication with colon demonstrated; no obvious free communication to rest of peritoneal space). Patient decompensated in the early hours of the morning on 09/21/2016 and had to be transferred to the intensive care unit with need for endotracheal tube intubation, central line placement, and resuscitation for treatment of shock with lactic acidosis and evidence of peritonitis and free air on the new chest, abdomen, and pelvis CT scan. S/p a rather challenging sigmoid colectomy with performance of end colostomy (Reid's procedure), takedown of splenic flexure of the colon, lysis of adhesions (60 minutes), and abdominal lavage at [facility] on 09/21/16; diagnosis of colon ischemia (distal transverse colon and descending colon) during reentry through recent laparotomy incision with exploration of abdominal cavity, takedown of colostomy, completion left hemicolectomy with resection of distal transverse colon, lysis of adhesions, abdominal lavage, performance of an end colostomy [facility] 09/24/16. Extubated post op evening of 09/25/16. Decompensation with intubation and restart of pressors . Right-sided pneumothorax after drainage of right pleural effusion requiring chest tube placement 09/30/2016. Extubated 10/03/2016. Decompensation with reintubation 10/06/16. Comorbidities: 1. Perforated sigmoid colon (see below) 2. Status post ventriculoperitoneal shunt placement. 3. Status post prior hysterectomy and bilateral salpingo-oophorectomy through Pfannenstiel incision 4. S/p IR drainage 09/09/16 with removal of 20 cc pus and placement of a 10 Fr. pigtail catheter at [facility]. 5. Readmission to [facility] 09/15/16 with upsizing of drain to 12 Fr pigtail on (communication with colon demonstrated; no obvious free communication to rest of peritoneal space). Septic shock with multiorgan failure 09/21/2016 requiring ICU admission with intubation and pressors. 6. S/p a rather challenging sigmoid colectomy with performance of end colostomy (Reid's procedure), takedown of splenic flexure of the colon, lysis of adhesions (60 minutes), and abdominal lavage at [facility] on 09/21/16 7. Colon ischemia (distal transverse colon and descending colon) 8. S/p reentry through recent laparotomy incision with exploration of abdominal cavity, takedown of colostomy, completion left hemicolectomy with resection of distal transverse colon, lysis of adhesions, abdominal lavage, performance of an end colostomy [facility] 09/24/16 Subjective: Remain intubated without major events. Lethargic and not communicative. Overall same as yesterday. Underwent PEG yesterday. Objective: Vitals: See below I's & O's: See below Exam: GENERAL: On exam, the patient was lying in bed and appeared to be breathing comfortably on the vent. No obvious acute distress. ABDOMEN: Soft, nontender and nondistended. Incision dressings are clean, dry and intact without any obvious evidence of underlying erythema, edema, discharge , or hernia. Surgical drain ss without any evidence of enteric contents. There are no peritoneal signs or guarding. Ostomy appears to be viable and productive with stool and air in the bag. SKIN: Skin appears to be pink and feels warm to touch. NEUROLOGIC: Patient is arousable with voice but for the most part noncommunicative and does not respond to simple commands. Remains intubated and sedated. Labs: See below Exam/Review of Systems Vital Signs Vitals Vital Signs Date Time Temp Pulse Resp B/P Pulse Ox O2 Delivery O2 Flow Rate FiO2 10/10/16 12:30 80 12 95/75 97 Mechanical Ventilator 10/10/16 12:00 98.8 10/10/16 07:30 40 Intake and Output 10/09/16 10/09/16 10/10/16 15:00 23:00 07:00 Intake Total 512.85 ml 253.6 ml 153.6 ml Output Total 685 ml 1000 ml 1075 ml Balance -172.15 ml -746.4 ml -921.4 ml Results Result Diagram: 10/10/16 0430 10/10/16 0430 ALEXSANDER DUARTE M.D. Oct 10, 2016 13:30
--- NOTE | 2016-10-10 13:55 | PN ---
Date/Time of Note Date/Time of Note DATE: 10/10/16 TIME: 13:52 Assessment/Plan VTE Prophylaxis VTE Prophylaxis Intervention: SCD's Assessment/Plan Chief Complaint/Hosp Course 1. Sigmoid colon abscess, likely a complication of diverticulitis - s/p sigmoid colectomy with end colostomy (Reid's procedure) and adhesiolysis on 09/21/16 - continue antibiotics. Follow-up surgery recommendation. ID is on board, plan is for further drain placement 2. Status post septic shock -Continue antibiotics and IV fluid. -Pressors as needed. 3. Ventilator dependent respiratory failure: Status post re-extubation few days ago. -Plan is for tracheostomy tomorrow 4. Left pleural effusion: Status post thoracentesis, complicated with pneumothorax status post placement of a chest tube. 4. History of ICH, s/p ventriculoperitoneal shunt placement: Neurosurg on board 5. Paroxysmal A. fib: Now in sinus rhythm status post amiodarone and dopamine. Cardiology on board, appreciate recommendation 6. Acute renal insufficiency: Resolved. Appreciate nephrology input. 7. s/p NSTEMI: Likely secondary to septic shock. Cardiology on board. 8. Volume overload state: Continue diuresis. Patient still has bilateral lower extremity pitting edema. 9. Anemia, likely a combination of iron deficiency and anemia of chronic disease: Previous notes mention iron replacement. Given patient is extubated, will start her on ferrous sulfate once she passes swallow evaluation. She did fail swallow evaluation yesterday. will consider blood transfusion 10. Hypokalemia: Replete 11. Dysphagia Status post PEG tube placement Prophylaxis: SCDs Discharge planning: Plans for tracheostomy tomorrow, patient will need further drain placements per surgery. Patient's ex- is spokesperson at this time and states that patient would have wanted aggressive interventions as long as she was not brain . Patient will also ultimately need long-term placement Problems: Subjective 24 Hr Interval Summary Subjective hx not possible: pt non-verbal Exam/Review of Systems Vital Signs Vitals Vital Signs Date Time Temp Pulse Resp B/P Pulse Ox O2 Delivery O2 Flow Rate FiO2 10/10/16 12:40 84 12 97 40 10/10/16 12:30 95/75 Mechanical Ventilator 10/10/16 12:00 98.8 Intake and Output 10/09/16 10/09/16 10/10/16 15:00 23:00 07:00 Intake Total 512.85 ml 253.6 ml 153.6 ml Output Total 685 ml 1000 ml 1075 ml Balance -172.15 ml -746.4 ml -921.4 ml Exam Constitutional: non-verbal ENMT: intubated Respiratory: clear to auscultation Cardiovascular: regular rate and rhythm Gastrointestinal: soft, No distended Musculoskeletal: nl extremities to inspection Results Result Diagram: 10/10/16 0430 10/10/16 0430 Results 24 hrs Laboratory Tests Test 10/10/16 04:30 White Blood Count 21.7 H Red Blood Count 2.86 L Hemoglobin 8.1 L Hematocrit 25.5 L Mean Corpuscular Volume 89.2 Mean Corpuscular Hemoglobin 28.3 L Mean Corpuscular Hemoglobin Concent 31.8 L Red Cell Distribution Width 21.6 H Platelet Count 159 Mean Platelet Volume 12.6 H Neutrophils % Segmented Neutrophils % (Manual) 94 H Lymphocytes % Lymphocytes % (Manual) 5 L Monocytes % Monocytes % (Manual) 1 Eosinophils % Basophils % Nucleated Red Blood Cells % 0.0 Neutrophils # Absolute Lymphocytes (Manual) 1.0 Lymphocytes # Monocytes # Absolute Monocytes (Manual) 0.2 L Eosinophils # Basophils # Nucleated Red Blood Cells # Smudge Cells % 7 H Thrombocytosis 2 H Platelet Estimate NORMAL Polychromasia 3+ Hypochromasia 1+ Poikilocytosis 1+ Anisocytosis 2+ Macrocytosis 1+ Sodium Level 146 H Potassium Level 3.2 L Chloride Level 98 Carbon Dioxide Level 38 H Anion Gap 13 Blood Urea Nitrogen 36 H Creatinine 0.95 Glucose Level 82 Calcium Level 7.4 L Phosphorus Level 6.1 H Magnesium Level 2.1 Medications Medications Current Medications Ondansetron HCl (Zofran Inj) 4 mg Q6H PRN IV NAUSEA AND/OR VOMITING Last administered on 09/26/16 09:23; Admin Dose 4 MG; Start 09/16/16 at 00:30 Acetaminophen (Tylenol Tab) 650 mg Q6H PRN PO PAIN LEVEL 1-3 OR FEVER Last administered on 10/08/16 12:47; Admin Dose 650 MG; Start 09/16/16 at 00:30 Polyethylene Glycol 17 gm 17 gm DAILY PO Last administered on 10/10/16 08:09; Admin Dose 17 GM; Start 09/20/16 at 11:00 Norepinephrine/ Dextrose (Levophed/D5W) 500 ml @ 1.87 mls/hr TITRATE IV Last administered on 10/09/16 06:59; Admin Dose 11.25 MLS/HR; Start 09/21/16 at 09:00 Acetaminophen/ Hydrocodone Bitart (Paragon (5/325)) 1 tab Q4H PRN PO PAIN LEVEL 4 -7 Last administered on 09/28/16 21:20; Admin Dose 1 TAB; Start 09/21/16 at 15: 00 Acetaminophen/ Hydrocodone Bitart (Paragon (5/325)) 2 tab Q4H PRN PO PAIN LEVEL 7 -10; Start 09/21/16 at 15:00 Hydromorphone HCl (Dilaudid) 0.5 mg Q2H PRN IV PAIN Last administered on 16:41; Admin Dose 0.5 MG; Start 09/21/16 at 15:00 Hydromorphone HCl (Dilaudid) 1 mg Q2H PRN IV PAIN Last administered on 23:57; Admin Dose 1 MG; Start 09/21/16 at 15:00 Docusate Sodium (Colace) 100 mg BID PRN PO CONSTIPATION; Start 09/21/16 at 15: 00 Enoxaparin Sodium (Lovenox) 40 mg DAILY SC ; Start 09/22/16 at 09:00; Status Future Hold Docusate Sodium (Colace Liquid Cup) 100 mg BID NGT Last administered on 08:09; Admin Dose 100 MG; Start 09/22/16 at 21:00 IV Flush (NS 10 ml) 10 ml PRN PRN IV IV PROTOCOL; Start 09/25/16 at 12:00 Spironolactone 50 mg 50 mg DAILY NGT Last administered on 10/10/16 08:09; Admin Dose 50 MG; Start 09/28/16 at 09:00 Dopamine HCl/ Dextrose 250 ml @ 6.053 mls/ hr TITRATE IV Last administered on 09/30/16 04:46; Admin Dose 6.053 MLS/HR; Start 09/29/16 at 11:00 Phenylephrine HCl 40 mg/Dextrose 500 ml @ 75 mls/hr TITRATE IV ; Start at 14:00 Caspofungin/ Sodium Chloride (Cancidas/NS) 250 ml @ 250 mls/hr Q24H IVPB Last administered on 10/10/16 11:27; Admin Dose 250 MLS/HR; Start 10/01/16 at 12:00 Furosemide (Lasix) 20 mg Q6 IV Last administered on 10/10/16 11:27; Admin Dose 20 MG; Start 10/05/16 at 13:00 Lorazepam 0.5 mg 0.5 mg Q6H PRN IV AGITATION/ANXIETY Last administered on 23:21; Admin Dose 0.5 MG; Start 10/05/16 at 23:00 Propofol 100 ml @ 2.421 mls/ hr Q12H IV Last administered on 10/10/16 11:33; Admin Dose 7.263 MLS/HR; Start 10/06/16 at 14:30 Fentanyl 100 ml @ 2.5 mls/hr TITRATE IV Last administered on 10/10/16 00:21; Admin Dose 4.5 MLS/HR; Start 10/07/16 at 09:30 Tigecycline/ Sodium Chloride (Tygacil/NS) 100 ml @ 200 mls/hr Q12 IVPB Last administered on 10/10/16 08:10; Admin Dose 200 MLS/HR; Start 10/07/16 at 21:00 Morphine Sulfate (morphine) 2 mg Q4H PRN IV PAIN; Start 10/07/16 at 14:30 Pantoprazole 40 mg 40 mg BID@06,18 IV Last administered on 10/10/16 05:28; Admin Dose 40 MG; Start 10/09/16 at 18:00 Potassium Chloride (KCl 40 MEQ/250 ML NS) 250 ml @ 62.5 mls/hr Q4H IVPB Last administered on 10/10/16 11:33; Admin Dose 62.5 MLS/HR; Start 10/10/16 at 08:00; Stop 10/10/16 at 15:59 DALE RODARTE Oct 10, 2016 13:55
--- NOTE | 2016-10-10 16:20 | PN ---
Date/Time of Note Date/Time of Note DATE: 10/10/16 TIME: 16:17 Assessment/Plan VTE Prophylaxis VTE Prophylaxis Intervention: SCD's Assessment/Plan Assessment/Plan Assessment * Dysphagia S/P PEG * Acute respiratory failure * Sepsis controlled * S/P left hemicolectomy sec to colonic ischemia * S/P Helio procedure sed to diverticular abscess * S?P chest tube sec to pneumothorax Plan * may resume tube feeding * continue present management * case discussed with Dr Seymour * Further orders will depend on clinical course Subjective 24 Hr Interval Summary Free Text/Dictation * Course reviewed * S/P PEG 2 X 1 cm benign . Biopsied Post uneventful PEG Exam/Review of Systems Vital Signs Vitals Vital Signs Date Time Temp Pulse Resp B/P Pulse Ox O2 Delivery O2 Flow Rate FiO2 10/10/16 15:00 76 12 101/54 93 Mechanical Ventilator 10/10/16 12:40 40 10/10/16 12:00 98.8 Intake and Output 10/09/16 10/09/16 10/10/16 15:00 23:00 07:00 Intake Total 512.85 ml 253.6 ml 153.6 ml Output Total 685 ml 1000 ml 1075 ml Balance -172.15 ml -746.4 ml -921.4 ml Exam Constitutional: frail ENMT: intubated Respiratory: crackles/rales, diminished breath sounds Cardiovascular: nl pulses, regular rate and rhythm Gastrointestinal: other (colostomy), soft Musculoskeletal: muscle weakness Extremities: edema Skin: rash or lesions Results Result Diagram: 10/10/16 0430 10/10/16 0430 Results 24 hrs Laboratory Tests Test 10/10/16 04:30 White Blood Count 21.7 H Red Blood Count 2.86 L Hemoglobin 8.1 L Hematocrit 25.5 L Mean Corpuscular Volume 89.2 Mean Corpuscular Hemoglobin 28.3 L Mean Corpuscular Hemoglobin Concent 31.8 L Red Cell Distribution Width 21.6 H Platelet Count 159 Mean Platelet Volume 12.6 H Neutrophils % Segmented Neutrophils % (Manual) 94 H Lymphocytes % Lymphocytes % (Manual) 5 L Monocytes % Monocytes % (Manual) 1 Eosinophils % Basophils % Nucleated Red Blood Cells % 0.0 Neutrophils # Absolute Lymphocytes (Manual) 1.0 Lymphocytes # Monocytes # Absolute Monocytes (Manual) 0.2 L Eosinophils # Basophils # Nucleated Red Blood Cells # Smudge Cells % 7 H Thrombocytosis 2 H Platelet Estimate NORMAL Polychromasia 3+ Hypochromasia 1+ Poikilocytosis 1+ Anisocytosis 2+ Macrocytosis 1+ Sodium Level 146 H Potassium Level 3.2 L Chloride Level 98 Carbon Dioxide Level 38 H Anion Gap 13 Blood Urea Nitrogen 36 H Creatinine 0.95 Glucose Level 82 Calcium Level 7.4 L Phosphorus Level 6.1 H Magnesium Level 2.1 Medications Medications Current Medications Ondansetron HCl (Zofran Inj) 4 mg Q6H PRN IV NAUSEA AND/OR VOMITING Last administered on 09/26/16 09:23; Admin Dose 4 MG; Start 09/16/16 at 00:30 Acetaminophen (Tylenol Tab) 650 mg Q6H PRN PO PAIN LEVEL 1-3 OR FEVER Last administered on 10/08/16 12:47; Admin Dose 650 MG; Start 09/16/16 at 00:30 Polyethylene Glycol 17 gm 17 gm DAILY PO Last administered on 10/10/16 08:09; Admin Dose 17 GM; Start 09/20/16 at 11:00 Norepinephrine/ Dextrose (Levophed/D5W) 500 ml @ 1.87 mls/hr TITRATE IV Last administered on 10/09/16 06:59; Admin Dose 11.25 MLS/HR; Start 09/21/16 at 09:00 Acetaminophen/ Hydrocodone Bitart (Jansen (5/325)) 1 tab Q4H PRN PO PAIN LEVEL 4 -7 Last administered on 09/28/16 21:20; Admin Dose 1 TAB; Start 09/21/16 at 15: 00 Acetaminophen/ Hydrocodone Bitart (Jansen (5/325)) 2 tab Q4H PRN PO PAIN LEVEL 7 -10; Start 09/21/16 at 15:00 Hydromorphone HCl (Dilaudid) 0.5 mg Q2H PRN IV PAIN Last administered on 16:41; Admin Dose 0.5 MG; Start 09/21/16 at 15:00 Hydromorphone HCl (Dilaudid) 1 mg Q2H PRN IV PAIN Last administered on 23:57; Admin Dose 1 MG; Start 09/21/16 at 15:00 Docusate Sodium (Colace) 100 mg BID PRN PO CONSTIPATION; Start 09/21/16 at 15: 00 Enoxaparin Sodium (Lovenox) 40 mg DAILY SC ; Start 09/22/16 at 09:00; Status Future Hold Docusate Sodium (Colace Liquid Cup) 100 mg BID NGT Last administered on 08:09; Admin Dose 100 MG; Start 09/22/16 at 21:00 IV Flush (NS 10 ml) 10 ml PRN PRN IV IV PROTOCOL; Start 09/25/16 at 12:00 Spironolactone 50 mg 50 mg DAILY NGT Last administered on 10/10/16 08:09; Admin Dose 50 MG; Start 09/28/16 at 09:00 Dopamine HCl/ Dextrose 250 ml @ 6.053 mls/ hr TITRATE IV Last administered on 09/30/16 04:46; Admin Dose 6.053 MLS/HR; Start 09/29/16 at 11:00 Phenylephrine HCl 40 mg/Dextrose 500 ml @ 75 mls/hr TITRATE IV ; Start at 14:00 Caspofungin/ Sodium Chloride (Cancidas/NS) 250 ml @ 250 mls/hr Q24H IVPB Last administered on 10/10/16 11:27; Admin Dose 250 MLS/HR; Start 10/01/16 at 12:00 Furosemide (Lasix) 20 mg Q6 IV Last administered on 10/10/16 11:27; Admin Dose 20 MG; Start 10/05/16 at 13:00 Lorazepam 0.5 mg 0.5 mg Q6H PRN IV AGITATION/ANXIETY Last administered on 23:21; Admin Dose 0.5 MG; Start 10/05/16 at 23:00 Propofol 100 ml @ 2.421 mls/ hr Q12H IV Last administered on 10/10/16 11:33; Admin Dose 7.263 MLS/HR; Start 10/06/16 at 14:30 Fentanyl 100 ml @ 2.5 mls/hr TITRATE IV Last administered on 10/10/16 14:14; Admin Dose 7.5 MLS/HR; Start 10/07/16 at 09:30 Tigecycline/ Sodium Chloride (Tygacil/NS) 100 ml @ 200 mls/hr Q12 IVPB Last administered on 10/10/16 08:10; Admin Dose 200 MLS/HR; Start 10/07/16 at 21:00 Morphine Sulfate (morphine) 2 mg Q4H PRN IV PAIN; Start 10/07/16 at 14:30 Pantoprazole (Protonix Iv) 40 mg BID@06,18 IV Last administered on 10/10/16 05: 28; Admin Dose 40 MG; Start 10/09/16 at 18:00 ENRICO GONZALEZ NP Oct 10, 2016 16:20
--- NOTE | 2016-10-10 19:14 | PN ---
Date/Time of Note Date/Time of Note DATE: 10/10/16 TIME: 19:13 Assessment/Plan Assessment/Plan Chief Complaint/Hosp Course This is a 70-year-old female admitted with a perforated colon and contained abscess underwent a drainage procedure on further colonic procedures patient is currently in the intensive care unit unable to come off the ventilator secondary to multiple medical problems Patient was extubated and had to be input intubated again has been treated for septic shock lactic acidosis peritonitis currently has an end colostomy Helio pouch and has undergone colon resection patient also has a right-sided chest tube for a pneumothorax She was reintubated again Plan for tracheostomy on tomorrow Problems: Subjective 24 Hr Interval Summary Constitutional: improved Pain Control: mild Exam/Review of Systems Vital Signs Vitals Vital Signs Date Time Temp Pulse Resp B/P Pulse Ox O2 Delivery O2 Flow Rate FiO2 10/10/16 19:00 78 17 116/58 96 Mechanical Ventilator 10/10/16 17:27 40 10/10/16 16:00 98.9 Intake and Output 10/09/16 10/09/16 10/10/16 15:00 23:00 07:00 Intake Total 512.85 ml 253.6 ml 153.6 ml Output Total 685 ml 1000 ml 1075 ml Balance -172.15 ml -746.4 ml -921.4 ml Exam Eyes: EOMI, nl conjunctiva, nl lids, nl sclera ENMT: mucosa pink and moist, nl external ears & nose, nl lips & teeth, nl nasal mucosa & septum Neck: non-tender, supple Respiratory: clear to auscultation, normal air movement Cardiovascular: nl pulses, regular rate and rhythm Gastrointestinal: nl liver, spleen, non-tender, soft Results Result Diagram: 10/10/16 0430 10/10/16 043 GIL PINEDA MD Oct 10, 2016 19:14
--- NOTE | 2016-10-10 20:17 | CONS ---
Date/Time of Note Date/Time of Note DATE: 10/10/16 TIME: 20:08 Assessment/Plan Assessment/Plan Chief Complaint/Hosp Course ID PROGRESS NOTE CURRENT ABX ==> TYGACIL #4 + Cancidas #11 TOTAL ABX DAY #23 =>Cipro start 09/17 => VANCO IV + MERREM + FLAGYL #8-> DC'd 10/07 => HOSPITAL EVENTS: * s/p 09/21/16 Sigmoid colectomy with performance of end colostomy (Reid's procedure), w/Lysis of adhesions. * s/p 09/21/16 Externalization of [employer] shunt. INDICATION: Possible F[employer] shunt infection, ABD abscess * Extubated 10/03 * RE-intubated 09/29 * s/p Left THORA 10/01 * Extubated 10/03 * Re-Intubated 10/06 * 10/08/16 CT Brain: 2. Right frontal F[employer] shunt remains in place. No substantial change in size and configuration of the ventricular system. No transependymal CSF leak is identified to suggest uncompensated hydrocephalous. 3. Stable periventricular encephalomalacia in the posterior right temporal lobe. 24H INTERVAL SUMMARY * Clinically status quo -- critically ill -- orally intubated, sedated on propofol, CT, pressors * REPEAT RESPIRATORY CX RESPIRATORY CULTURE Preliminary GRAM NEGATIVE RODS RARE RESPIRATORY CULTURE Final Organism 1 NON LACTOSE FERMENTING GNR QUANTITY 1+ Organism 2 MOLD QUANTITY SCANT GROWTH EXAM: 70 yo F ->obtunted on the Vent HEENT:Orally intubated -> Vent Neck: trachea midline. Heart: S1, S2 CXT: chest rise symmetrical breath sounds clear, diminished basis. ABD: Soft, Wound Vac + Colostomy Extremities without cyanosis, (+) edema x4 = dependent edema ID ASSESSMENT 70 yo F w/PMHx ICH and F[employer] shunt admit with: 1. s/p Sepsis w/shock , s/p lactic acidosis => Back on pressors 10/06/16 * (+)Leukocytosis * (+)Fevers >101.5 10/07 2. s/p Perforated sigmoid colon w/abscess: POD#-> s/p 09/21/16 Sigmoid colectomy with performance of end colostomy (Reid's procedure), w/Lysis of adhesions. * MICRO: 09/23/16 BODY FLUID CULTURE Final Organism 1 ENTEROCOCCUS SPECIES Organism 2 COAGULASE NEGATIVE STAPH Organism 3 ALPHA HEMOLYTIC STREP SPP . VIRIDANS GROUP 4. ABD WOUND => (+)VAC 5. Acute respiratory failure -> orally RE-intubated 10/06 6. CHF w/elevated BNP => (+)Anasarca w/Pleural effusions s/p CT drain 09/30 7. Bilateral PNA == Present on admission => WORSENING superimposed on pulmonary process POA * 10/02/ ETT aspirate (+) MOLD + yeast ->DDx contaminant, submit new sample * 10/07 ETT aspirate (+) MOLD + GNR -> Pending * 10/08/16 CT CHEST: Multiple bilateral cavitary nodules are again seen, similar to the prior CT - considerations include septic emboli, atypical (fungal, tuberculosis) infectious process, and possibly neoplasm. * CT 09/30 THORA BODY FLUID CULTURE no growth * AFB SMEAR (-) x 2 Final ACID FAST BACILLI NONE SEEN 8. Pancytopenia - sepsis 9. Coagulopathy w/thrombocytopenia 10. (+)Troponin elevation likely type II in the setting of septic shock. Echo from 09/18 showed normal EF and no significant valvular disease. 11. POD # ->S/P 09/21/16 Externalization of [employer] shunt. INDICATION: Possible F[employer] shunt infection, hx of Hydrocephalus, F[employer] shunt, abdominal abscess (-)MRSA Nares screen INVASIVES: PICC (09/25/16) , ETT, NGT, VPS, FC, intra-abdominal drainage catheters ABX ALLERGY: PCN CURRENT ABX ==> TYGACIL #4 + Cancidas #11 TOTAL ABX DAY #23 =>Cipro start 09/17 => VANCO IV + MERREM + FLAGYL #8-> DC'd 10/07 ID RECOMMENDATIONS NOTE: Sputum from ETT grew fungus == Possibly a contaminant; however repeat respiratory cx now (+) for MOLD * QUERY ? [employer] RESPIRATORY CULTURE Preliminary 1. Continue ABX 2. Await micro ID of MOLD growing in respiratory culture x 2 3 Send cocci, crypto, aspergillosis, histoplasma serology 4. PLAN: Trach * PEG . . . . . Problems: Consultation Date/Type/Reason Admit Date/Time Sep 15, 2016 at 21:35 Initial Consult Date 09/21/16 Type of Consultation: ID Exam/Review of Systems Vital Signs Vitals Vital Signs Date Time Temp Pulse Resp B/P Pulse Ox O2 Delivery O2 Flow Rate FiO2 10/10/16 19:00 78 17 116/58 96 Mechanical Ventilator 10/10/16 17:27 40 10/10/16 16:00 98.9 Intake and Output 10/09/16 10/09/16 10/10/16 15:00 23:00 07:00 Intake Total 512.85 ml 253.6 ml 153.6 ml Output Total 685 ml 1000 ml 1075 ml Balance -172.15 ml -746.4 ml -921.4 ml Results Result Diagram: 10/10/16 0430 10/10/16 0430 Results 24 hrs Laboratory Tests Test 10/10/16 04:30 White Blood Count 21.7 H Red Blood Count 2.86 L Hemoglobin 8.1 L Hematocrit 25.5 L Mean Corpuscular Volume 89.2 Mean Corpuscular Hemoglobin 28.3 L Mean Corpuscular Hemoglobin Concent 31.8 L Red Cell Distribution Width 21.6 H Platelet Count 159 Mean Platelet Volume 12.6 H Neutrophils % Segmented Neutrophils % (Manual) 94 H Lymphocytes % Lymphocytes % (Manual) 5 L Monocytes % Monocytes % (Manual) 1 Eosinophils % Basophils % Nucleated Red Blood Cells % 0.0 Neutrophils # Absolute Lymphocytes (Manual) 1.0 Lymphocytes # Monocytes # Absolute Monocytes (Manual) 0.2 L Eosinophils # Basophils # Nucleated Red Blood Cells # Smudge Cells % 7 H Thrombocytosis 2 H Platelet Estimate NORMAL Polychromasia 3+ Hypochromasia 1+ Poikilocytosis 1+ Anisocytosis 2+ Macrocytosis 1+ Sodium Level 146 H Potassium Level 3.2 L Chloride Level 98 Carbon Dioxide Level 38 H Anion Gap 13 Blood Urea Nitrogen 36 H Creatinine 0.95 Glucose Level 82 Calcium Level 7.4 L Phosphorus Level 6.1 H Magnesium Level 2.1 Medications Medications Current Medications Ondansetron HCl (Zofran Inj) 4 mg Q6H PRN IV NAUSEA AND/OR VOMITING Last administered on 09/26/16 09:23; Admin Dose 4 MG; Start 09/16/16 at 00:30 Acetaminophen (Tylenol Tab) 650 mg Q6H PRN PO PAIN LEVEL 1-3 OR FEVER Last administered on 10/08/16 12:47; Admin Dose 650 MG; Start 09/16/16 at 00:30 Polyethylene Glycol 17 gm 17 gm DAILY PO Last administered on 10/10/16 08:09; Admin Dose 17 GM; Start 09/20/16 at 11:00 Norepinephrine/ Dextrose (Levophed/D5W) 500 ml @ 1.87 mls/hr TITRATE IV Last administered on 10/09/16 06:59; Admin Dose 11.25 MLS/HR; Start 09/21/16 at 09:00 Acetaminophen/ Hydrocodone Bitart ([place] (5/325)) 1 tab Q4H PRN PO PAIN LEVEL 4 -7 Last administered on 09/28/16 21:20; Admin Dose 1 TAB; Start 09/21/16 at 15: 00 Acetaminophen/ Hydrocodone Bitart ([place] (5/325)) 2 tab Q4H PRN PO PAIN LEVEL 7 -10; Start 09/21/16 at 15:00 Hydromorphone HCl (Dilaudid) 0.5 mg Q2H PRN IV PAIN Last administered on 16:41; Admin Dose 0.5 MG; Start 09/21/16 at 15:00 Hydromorphone HCl (Dilaudid) 1 mg Q2H PRN IV PAIN Last administered on 23:57; Admin Dose 1 MG; Start 09/21/16 at 15:00 Docusate Sodium (Colace) 100 mg BID PRN PO CONSTIPATION; Start 09/21/16 at 15: 00 Enoxaparin Sodium (Lovenox) 40 mg DAILY SC ; Start 09/22/16 at 09:00; Status Future Hold Docusate Sodium (Colace Liquid Cup) 100 mg BID NGT Last administered on 08:09; Admin Dose 100 MG; Start 09/22/16 at 21:00 IV Flush (NS 10 ml) 10 ml PRN PRN IV IV PROTOCOL; Start 09/25/16 at 12:00 Spironolactone 50 mg 50 mg DAILY NGT Last administered on 10/10/16 08:09; Admin Dose 50 MG; Start 09/28/16 at 09:00 Dopamine HCl/ Dextrose 250 ml @ 6.053 mls/ hr TITRATE IV Last administered on 09/30/16 04:46; Admin Dose 6.053 MLS/HR; Start 09/29/16 at 11:00 Phenylephrine HCl 40 mg/Dextrose 500 ml @ 75 mls/hr TITRATE IV ; Start at 14:00 Caspofungin/ Sodium Chloride (Cancidas/NS) 250 ml @ 250 mls/hr Q24H IVPB Last administered on 10/10/16 11:27; Admin Dose 250 MLS/HR; Start 10/01/16 at 12:00 Furosemide (Lasix) 20 mg Q6 IV Last administered on 10/10/16 17:32; Admin Dose 20 MG; Start 10/05/16 at 13:00 Lorazepam 0.5 mg 0.5 mg Q6H PRN IV AGITATION/ANXIETY Last administered on 23:21; Admin Dose 0.5 MG; Start 10/05/16 at 23:00 Propofol 100 ml @ 2.421 mls/ hr Q12H IV Last administered on 10/10/16 11:33; Admin Dose 7.263 MLS/HR; Start 10/06/16 at 14:30 Fentanyl 100 ml @ 2.5 mls/hr TITRATE IV Last administered on 10/10/16 14:14; Admin Dose 7.5 MLS/HR; Start 10/07/16 at 09:30 Tigecycline/ Sodium Chloride (Tygacil/NS) 100 ml @ 200 mls/hr Q12 IVPB Last administered on 10/10/16 08:10; Admin Dose 200 MLS/HR; Start 10/07/16 at 21:00 Morphine Sulfate (morphine) 2 mg Q4H PRN IV PAIN; Start 10/07/16 at 14:30 Pantoprazole (Protonix Iv) 40 mg BID@06,18 IV Last administered on 10/10/16 17: 32; Admin Dose 40 MG; Start 10/09/16 at 18:00 DONNA HERNANDEZ NP Oct 10, 2016 20:16
--- NOTE | 2016-10-10 22:07 | CONS ---
Date/Time of Note Date/Time of Note DATE: 10/10/16 TIME: 22:06 Assessment/Plan Assessment/Plan Chief Complaint/Hosp Course Acute respiratory failure: Reintubated again 10/06 Acute diastolic heart failure: Secondary to volume resuscitation in setting of low albumin and third spacing. Significant anasarca. Diuresing Paroxysmal afib: converted on amiodarone. Currently in sinus rhythm Septic shock: intraabdominal abscess, bilateral pneumonia. S/p sigmoid colectomy. Tension pneumothorax: due to thoracentesis. s/p chest tube 09/30 NSTEMI: Trop mildly elevated likely type II in the setting of septic shock. Echo from 09/18 showed normal EF and no significant valvular disease. Repeat trop normalized Diverticulitis complicated by abscess s/p sigmoid colectomy and now colostomy Coagulopathy: ?DIC. Resolved h/o ICH with CHEMIST INTERN shunt -Continue Lasix to 20mg IV [id number] -Continue Levophed to maintain MAP > 65 -Ventilator management per pulmonology -Antibiotics per infectious disease Problems: Consultation Date/Type/Reason Admit Date/Time Sep 15, 2016 at 21:35 Initial Consult Date 09/21/16 Type of Consultation: Cardiology 24 HR Interval Summary Free Text/Dictation No significant clinical changes. Remains on low dose Levophed drip. Detailed Summary Additional Comments Unable to obtain review of systems, patient is intubated. Exam/Review of Systems Vital Signs Vitals Vital Signs Date Time Temp Pulse Resp B/P Pulse Ox O2 Delivery O2 Flow Rate FiO2 10/10/16 21:30 100 16 98/83 100 10/10/16 21:00 Mechanical Ventilator 10/10/16 20:00 99.6 10/10/16 17:27 40 Intake and Output 10/09/16 10/09/16 10/10/16 15:00 23:00 07:00 Intake Total 512.85 ml 253.6 ml 153.6 ml Output Total 685 ml 1000 ml 1075 ml Balance -172.15 ml -746.4 ml -921.4 ml Exam Constitutional: intubated HEENT: NCAT Neck: No obvious JVD, no carotid bruits Respiratory: diminished breath sounds, scattered crackles, no wheezes; chest tube noted Cardiovascular: Tachycardic, regular, no m/r/g, 2+ pitting BLE edema Gastrointestinal: non-tender, soft, grimaces to palpation Extremities: warm, no cyanosis or clubbing, LE SCDs in place Results Result Diagram: 10/10/16 0430 10/10/16 0430 Results 24 hrs Laboratory Tests Test 10/10/16 04:30 White Blood Count 21.7 H Red Blood Count 2.86 L Hemoglobin 8.1 L Hematocrit 25.5 L Mean Corpuscular Volume 89.2 Mean Corpuscular Hemoglobin 28.3 L Mean Corpuscular Hemoglobin Concent 31.8 L Red Cell Distribution Width 21.6 H Platelet Count 159 Mean Platelet Volume 12.6 H Neutrophils % Segmented Neutrophils % (Manual) 94 H Lymphocytes % Lymphocytes % (Manual) 5 L Monocytes % Monocytes % (Manual) 1 Eosinophils % Basophils % Nucleated Red Blood Cells % 0.0 Neutrophils # Absolute Lymphocytes (Manual) 1.0 Lymphocytes # Monocytes # Absolute Monocytes (Manual) 0.2 L Eosinophils # Basophils # Nucleated Red Blood Cells # Smudge Cells % 7 H Thrombocytosis 2 H Platelet Estimate NORMAL Polychromasia 3+ Hypochromasia 1+ Poikilocytosis 1+ Anisocytosis 2+ Macrocytosis 1+ Sodium Level 146 H Potassium Level 3.2 L Chloride Level 98 Carbon Dioxide Level 38 H Anion Gap 13 Blood Urea Nitrogen 36 H Creatinine 0.95 Glucose Level 82 Calcium Level 7.4 L Phosphorus Level 6.1 H Magnesium Level 2.1 Medications Medications Current Medications Ondansetron HCl (Zofran Inj) 4 mg Q6H PRN IV NAUSEA AND/OR VOMITING Last administered on 09/26/16 09:23; Admin Dose 4 MG; Start 09/16/16 at 00:30 Acetaminophen (Tylenol Tab) 650 mg Q6H PRN PO PAIN LEVEL 1-3 OR FEVER Last administered on 10/08/16 12:47; Admin Dose 650 MG; Start 09/16/16 at 00:30 Polyethylene Glycol 17 gm 17 gm DAILY PO Last administered on 10/10/16 08:09; Admin Dose 17 GM; Start 09/20/16 at 11:00 Norepinephrine/ Dextrose (Levophed/D5W) 500 ml @ 1.87 mls/hr TITRATE IV Last administered on 10/09/16 06:59; Admin Dose 11.25 MLS/HR; Start 09/21/16 at 09:00 Acetaminophen/ Hydrocodone Bitart ([place] (5/325)) 1 tab Q4H PRN PO PAIN LEVEL 4 -7 Last administered on 09/28/16 21:20; Admin Dose 1 TAB; Start 09/21/16 at 15: 00 Acetaminophen/ Hydrocodone Bitart ([place] (5/325)) 2 tab Q4H PRN PO PAIN LEVEL 7 -10; Start 09/21/16 at 15:00 Hydromorphone HCl (Dilaudid) 0.5 mg Q2H PRN IV PAIN Last administered on 16:41; Admin Dose 0.5 MG; Start 09/21/16 at 15:00 Hydromorphone HCl (Dilaudid) 1 mg Q2H PRN IV PAIN Last administered on 23:57; Admin Dose 1 MG; Start 09/21/16 at 15:00 Docusate Sodium (Colace) 100 mg BID PRN PO CONSTIPATION; Start 09/21/16 at 15: 00 Enoxaparin Sodium (Lovenox) 40 mg DAILY SC ; Start 09/22/16 at 09:00; Status Future Hold Docusate Sodium (Colace Liquid Cup) 100 mg BID NGT Last administered on 20:43; Admin Dose 100 MG; Start 09/22/16 at 21:00 IV Flush (NS 10 ml) 10 ml PRN PRN IV IV PROTOCOL; Start 09/25/16 at 12:00 Spironolactone 50 mg 50 mg DAILY NGT Last administered on 10/10/16 08:09; Admin Dose 50 MG; Start 09/28/16 at 09:00 Dopamine HCl/ Dextrose 250 ml @ 6.053 mls/ hr TITRATE IV Last administered on 09/30/16 04:46; Admin Dose 6.053 MLS/HR; Start 09/29/16 at 11:00 Phenylephrine HCl 40 mg/Dextrose 500 ml @ 75 mls/hr TITRATE IV ; Start at 14:00 Caspofungin/ Sodium Chloride (Cancidas/NS) 250 ml @ 250 mls/hr Q24H IVPB Last administered on 10/10/16 11:27; Admin Dose 250 MLS/HR; Start 10/01/16 at 12:00 Furosemide (Lasix) 20 mg Q6 IV Last administered on 10/10/16 17:32; Admin Dose 20 MG; Start 10/05/16 at 13:00 Lorazepam 0.5 mg 0.5 mg Q6H PRN IV AGITATION/ANXIETY Last administered on 23:21; Admin Dose 0.5 MG; Start 10/05/16 at 23:00 Propofol 100 ml @ 2.421 mls/ hr Q12H IV Last administered on 10/10/16 11:33; Admin Dose 7.263 MLS/HR; Start 10/06/16 at 14:30 Fentanyl 100 ml @ 2.5 mls/hr TITRATE IV Last administered on 10/10/16 14:14; Admin Dose 7.5 MLS/HR; Start 10/07/16 at 09:30 Tigecycline/ Sodium Chloride (Tygacil/NS) 100 ml @ 200 mls/hr Q12 IVPB Last administered on 10/10/16 20:43; Admin Dose 200 MLS/HR; Start 10/07/16 at 21:00 Morphine Sulfate (morphine) 2 mg Q4H PRN IV PAIN; Start 10/07/16 at 14:30 Pantoprazole (Protonix Iv) 40 mg BID@06,18 IV Last administered on 10/10/16 17: 32; Admin Dose 40 MG; Start 10/09/16 at 18:00 AVINASH FERNANDEZ MD Oct 10, 2016 22:07
[2016-10-11] VITALS (90 sets, daily range): BP systolic 89–143; BP diastolic 46–78; PULSE 78–115; RESP 8–18
[2016-10-11] MEDS: FUROSEMIDE 20 MG INJ IV SCH ×4 (00:06→18:38)
[2016-10-11] MEDS: IPRATROPIUM (HFA) 12.9 GM INHALER INH SCH ×6 (01:19→21:18)
[2016-10-11] MEDS: ALBUTEROL 18 GM INHALER INH SCH ×6 (01:19→21:18)
[2016-10-11] MEDS: PROPOFOL 100 ML IV SCH ×3 (01:41→23:05)
[2016-10-11] MEDS: FENTAnyl (DRIP) 1000 mcg/100mL 100 ML IV SCH ×2 (03:39→16:34)
[2016-10-11 05:18] LABS: ABNORMAL IP MESSAGE 1; HEMATOCRIT 24.9 % (37.0-47.0); HEMOGLOBIN 7.8 g/dl (12.0-16.0); MEAN CORPUSCULAR HGB CONC 31.3 g/dl (32.0-37.0); MEAN CORPUSCULAR VOLUME 89.2 fl (82.0-101.0); MEAN PLATELET VOLUME 12.4 fl (7.4-10.4); PLATELET COUNT 169 10^3/UL (140-415); RED BLOOD COUNT 2.79 10^6/ul (4.20-5.40); RED CELL DISTRIBUTION WIDTH 22.2 % (11.5-14.5); WHITE BLOOD COUNT 20.5 10^3/ul (4.8-10.8)
[2016-10-11 05:34] LABS: POSITIVE DIFF @See below
[2016-10-11 05:46] LABS: CALCIUM 7.2 mg/dl (8.4-10.2); CREATININE 1.04 mg/dl (0.44-1.00); PHOSPHORUS 5.8 mg/dl (2.5-4.9); POTASSIUM 3.5 mmol/L (3.5-5.1)
[2016-10-11] MEDS: PANTOPRAZOLE 40 MG INJ IV SCH ×2 (06:02→18:38)
[2016-10-11 07:44] LABS: ANISOCYTOSIS 1+ (0-0); BASOPHILS % (M) 1 % (0-2); HYPOCHROMASIA 2+ (0-0); PLATELET ESTIMATE NORMAL; POLYCHROMASIA 3+ (0-0)
--- NOTE | 2016-10-11 08:45 | PN ---
DATE: 10/11/2016 SUBJECTIVE DATA: The patient remains critically, on pressor support, on ventilator support. The patient is pending possible trach placement today. OBJECTIVE DATA: VITAL SIGNS: Blood pressure is 105/56, respirations 14, pulse 102, temperature 98.6. I's and O's: The patient had 1.2 L in, 2.3 L out. HEENT: Head is normocephalic. NECK: Supple. HEART: Regular rate. LUNGS: Show diminished breath sounds at the base. ABDOMEN: Soft, nontender to palpation. Positive . EXTREMITIES: Negative for clubbing, cyanosis. Positive edema, left lower extremity. DERMATOLOGIC: Clean. No rashes. MUSCULOSKELETAL: No joint effusions. NEUROLOGIC: Unchanged exam. MEDICATIONS: Reviewed. LABORATORY AND DIAGNOSTIC DATA: White count 10.5, hemoglobin 7.8, crit of 28.9, platelet count 169. Sodium 147, potassium 3.5, chloride 102, BUN 39, creatinine 1.04, phosphorus 5.8. ASSESSMENT AND PLAN: 1. Nonoliguric acute kidney injury. Etiology secondary to acute tubular necrosis. The patient's renal function continues to fluctuate. At this point, we will continue current treatment plan, supportive care. Monitor closely on diuretic therapy. Continue to renally dose all meds. 2. Hypernatremia. Sodium levels remained stable. Continue free water flushes. 3. Hypokalemia. We will replete with potassium chloride. 4. Volume overload, anasarca secondary to congestive heart failure, third -spacing. The patient remains on therapy. Will be managed by Cardiology. Continue to monitor. 5. Metabolic alkalemia. Continue to monitor. Consider giving course Diamox. 6. Septic shock. Patient remains on broad-spectrum antibiotics, intravenous pressors, continue. 7. Anemia. Monitor H and H levels. 8. Mineral bone disorder. Continue to monitor calcium and phosphorus levels. 9. Ventilatory-dependent respiratory failure. Vent settings reviewed. ABGs reviewed. Continue to monitor. 10. Perforated viscus, status post colectomy with colostomy bag. Follow up with General Surgery. 11. Ventriculoperitoneal shunt. Dictated By: Agustin Sanchez DO /rhina/ananda /Document#: [id number]
--- NOTE | 2016-10-11 09:09 | CONS ---
Date/Time of Note Date/Time of Note DATE: 10/11/16 TIME: 09:06 Consultation Date/Type/Reason Admit Date/Time Sep 15, 2016 at 21:35 Initial Consult Date 09/21/16 Type of Consultation: Palliative care Reason for Consultation Conversation yesterday with patient's ex- and updated him concerning goals of care. Plan is continue with this level of care although he understands this will be a long process through acute and rehabilitation and if there are no further major condition changes. We will continue to support him, once again all palliative care goals have been discussed with him on multiple occasions. Exam/Review of Systems Vital Signs Vitals Vital Signs Date Time Temp Pulse Resp B/P Pulse Ox O2 Delivery O2 Flow Rate FiO2 10/11/16 08:45 96 14 106/62 97 10/11/16 08:00 99.7 Mechanical Ventilator 10/11/16 05:40 40 Intake and Output 10/10/16 10/10/16 10/11/16 15:00 23:00 07:00 Intake Total 520.1 ml 530.55 ml 196.90 ml Output Total 1000 ml 800 ml 375 ml Balance -479.9 ml -269.45 ml -178.10 ml Results Result Diagram: 10/11/16 0440 10/11/16 0440 Results 24 hrs Laboratory Tests Test 10/11/16 04:40 White Blood Count 20.5 H Red Blood Count 2.79 L Hemoglobin 7.8 L Hematocrit 24.9 L Mean Corpuscular Volume 89.2 Mean Corpuscular Hemoglobin 28.0 L Mean Corpuscular Hemoglobin Concent 31.3 L Red Cell Distribution Width 22.2 H Platelet Count 169 Mean Platelet Volume 12.4 H Neutrophils % Segmented Neutrophils % (Manual) 67 Band Neutrophils % (Manual) 28 H Lymphocytes % Lymphocytes % (Manual) 4 L Monocytes % Eosinophils % Basophils % Basophils % (Manual) 1 Nucleated Red Blood Cells % 0.0 Neutrophils # Neutrophils # (Manual) 14.9 H Band Neutrophils # 5.7 H Absolute Lymphocytes (Manual) 0.8 Lymphocytes # Monocytes # Eosinophils # Basophils # Basophils # (Manual) 0.2 H Nucleated Red Blood Cells # Smudge Cells % 20 H Platelet Estimate NORMAL Polychromasia 3+ Hypochromasia 2+ Anisocytosis 1+ Macrocytosis 1+ Sodium Level 147 H Potassium Level 3.5 Chloride Level 102 Carbon Dioxide Level 33 H Anion Gap 16 Blood Urea Nitrogen 39 H Creatinine 1.04 H Glucose Level 103 Calcium Level 7.2 L Phosphorus Level 5.8 H Magnesium Level 2.0 Medications Medications Current Medications Ondansetron HCl (Zofran Inj) 4 mg Q6H PRN IV NAUSEA AND/OR VOMITING Last administered on 09/26/16 09:23; Admin Dose 4 MG; Start 09/16/16 at 00:30 Acetaminophen (Tylenol Tab) 650 mg Q6H PRN PO PAIN LEVEL 1-3 OR FEVER Last administered on 10/08/16 12:47; Admin Dose 650 MG; Start 09/16/16 at 00:30 Polyethylene Glycol 17 gm 17 gm DAILY PO Last administered on 10/10/16 08:09; Admin Dose 17 GM; Start 09/20/16 at 11:00 Norepinephrine/ Dextrose (Levophed/D5W) 500 ml @ 1.87 mls/hr TITRATE IV Last administered on 10/09/16 06:59; Admin Dose 11.25 MLS/HR; Start 09/21/16 at 09:00 Acetaminophen/ Hydrocodone Bitart ([place] (5/325)) 1 tab Q4H PRN PO PAIN LEVEL 4 -7 Last administered on 09/28/16 21:20; Admin Dose 1 TAB; Start 09/21/16 at 15: 00 Acetaminophen/ Hydrocodone Bitart ([place] (5/325)) 2 tab Q4H PRN PO PAIN LEVEL 7 -10; Start 09/21/16 at 15:00 Hydromorphone HCl (Dilaudid) 0.5 mg Q2H PRN IV PAIN Last administered on 16:41; Admin Dose 0.5 MG; Start 09/21/16 at 15:00 Hydromorphone HCl (Dilaudid) 1 mg Q2H PRN IV PAIN Last administered on 23:57; Admin Dose 1 MG; Start 09/21/16 at 15:00 Docusate Sodium (Colace) 100 mg BID PRN PO CONSTIPATION; Start 09/21/16 at 15: 00 Enoxaparin Sodium (Lovenox) 40 mg DAILY SC ; Start 09/22/16 at 09:00; Status Future Hold Docusate Sodium (Colace Liquid Cup) 100 mg BID NGT Last administered on 20:43; Admin Dose 100 MG; Start 09/22/16 at 21:00 IV Flush (NS 10 ml) 10 ml PRN PRN IV IV PROTOCOL; Start 09/25/16 at 12:00 Spironolactone 50 mg 50 mg DAILY NGT Last administered on 10/10/16 08:09; Admin Dose 50 MG; Start 09/28/16 at 09:00 Dopamine HCl/ Dextrose 250 ml @ 6.053 mls/ hr TITRATE IV Last administered on 09/30/16 04:46; Admin Dose 6.053 MLS/HR; Start 09/29/16 at 11:00 Phenylephrine HCl 40 mg/Dextrose 500 ml @ 75 mls/hr TITRATE IV ; Start at 14:00 Caspofungin/ Sodium Chloride (Cancidas/NS) 250 ml @ 250 mls/hr Q24H IVPB Last administered on 10/10/16 11:27; Admin Dose 250 MLS/HR; Start 10/01/16 at 12:00 Furosemide (Lasix) 20 mg Q6 IV Last administered on 10/11/16 06:02; Admin Dose 20 MG; Start 10/05/16 at 13:00 Lorazepam 0.5 mg 0.5 mg Q6H PRN IV AGITATION/ANXIETY Last administered on 23:21; Admin Dose 0.5 MG; Start 10/05/16 at 23:00 Propofol 100 ml @ 2.421 mls/ hr Q12H IV Last administered on 10/11/16 01:41; Admin Dose 7.263 MLS/HR; Start 10/06/16 at 14:30 Fentanyl 100 ml @ 2.5 mls/hr TITRATE IV Last administered on 10/11/16 03:39; Admin Dose 7.5 MLS/HR; Start 10/07/16 at 09:30 Tigecycline/ Sodium Chloride (Tygacil/NS) 100 ml @ 200 mls/hr Q12 IVPB Last administered on 10/10/16 20:43; Admin Dose 200 MLS/HR; Start 10/07/16 at 21:00 Morphine Sulfate (morphine) 2 mg Q4H PRN IV PAIN; Start 10/07/16 at 14:30 Pantoprazole (Protonix Iv) 40 mg BID@ IV Last administered on 10/11/16t 06: 02; Admin Dose 40 MG; Start 10/09/16 at 18:00 YANETH VIDAL Oct 11, 2016 09:08
[2016-10-11] MEDS: POLYETHYLENE GLYCOL 17 GM PACKET PO SCH (09:44)
[2016-10-11] MEDS: SPIRONOLACTONE 50 MG TAB NGT SCH (09:44)
[2016-10-11] MEDS: DOCUSATE SODIUM 10 MG/ML (10ML CUP) NGT SCH ×2 (09:44→21:00)
[2016-10-11] MEDS: TIGECYCLINE 50 MG in SOD CHLORIDE 0.9% 100 ML IVPB SCH ×2 (09:44→21:47)
--- NOTE | 2016-10-11 11:14 | PN ---
Date/Time of Note Date/Time of Note DATE: 10/11/16 TIME: 11:11 Assessment/Plan Lines/Catheters IV Catheter Type (from Nrsg): PICC Line Shore in Place (from Nrsg): Yes Assessment/Plan Assessment/Plan [facility] Progress Note Date of Service: 10/11/2016 Place of service: [facility] ICU Today's Assessment & Plan: Overall stable. Abdomen continues to remain benign. Trach tentatively scheduled for today (much appreciate Dr. Donovan Bell excellent input). Orders placed for drainage of perihepatic fluid collections (discussed with Dr. Cortes and the patient's ex-). No indication for acute surgical intervention. With above assessment, I recommended the following for today: 1. Continue aggressive medical management with intubation; CODE STATUS at this point is DO NOT RESUSCITATE but with intubation being okay and no chest compressions or electric shocks. Chemical code is okay. 2. Continue wound VAC; dressing change 3 times a week 3. Cont aggressive pulmonary toilet 4. Cont Lasix as allowed by her clinical condition 5. Labs in am 6. Please maintain multidisciplinary discussion regarding fluid intake, CODE STATUS, and other major medical decisions since this is a fragile surgical patient with recent sepsis and shock; I changed code status to full code, but without chest compression or electric shock 7. Targeted antimicrobial therapy to culture results 8. PT OT 9. Management of PRESCHOOL DISABILITY TEACHER shunt per Dr. Miner (much appreciate the care) 10. Continue PEG gastric feeds with goal of 60 cc/h 11. Keep in the ICU 12. Social work and case management to please start working on disposition planning (rehab versus SNF) 13. Please note: Guille, who is the patient's decision maker currently, would like Mr. Yanez (patient's ex-) to still be involved in her care. He should still have full access to the hospital and patient according to Guille. 14. Tracheostomy per Dr. Jones (? Friday) 15. Continue following GI recommendation for management of GI bleeding 16. Percutaneous drainage of perihepatic fluid collections Thank you again for your great care of this very pleasant patient and wonderful family. If there are any questions, please feel free to call me at [phone]. Nature of presenting problem: High severity Please note that, given the extensive number of diagnoses or management options , the extensive amount and/or complexity of data needed to be reviewed, and I risk of complications and/or morbidity or mortality, this qualifies as high complexity type of decision-making. Disclaimer: Inadvertent spelling and grammatical errors are likely due to EHR/ dictation software use and do not reflect on the quality of delivered patient care. Also, please note that the electronic time recorded on this node does not necessarily reflect the actual time of the visit. Updated Clinical Summary: A very pleasant 70-year-old lady without significant known past medical history other than a PRESCHOOL DISABILITY TEACHER shunt placement many years ago which she did not remember or report, presenting with what appears to be a sigmoid colon abscess or pericolonic abscess, which seemed to be a complication of diverticulitis. S/p IR drainage 09/09/16 with removal of 20 cc pus and placement of a 10 Fr. pigtail catheter at [facility]. D/c home 09/12/16. Re-presented to [facility] ED 09/15/16 after being diverted from [facility] (due to internal disaster diversion) where CT was done showing adequate placement of the percutaneous drain near the sigmoid colon and decompressed sigmoid colon abscess, no obvious free air or significant spillage of stool in the abdominal cavity, and incidental finding of tail of the PRESCHOOL DISABILITY TEACHER shunt in the pelvis (new from right upper quadrant position of the same drain on the CT scan at [facility]). Transfer to [facility] 09/15/2016 for further cares. S/p upsizing of drain to 12 Fr pigtail on 09/17/16 (communication with colon demonstrated; no obvious free communication to rest of peritoneal space). Patient decompensated in the early hours of the morning on 09/21/2016 and had to be transferred to the intensive care unit with need for endotracheal tube intubation, central line placement, and resuscitation for treatment of shock with lactic acidosis and evidence of peritonitis and free air on the new chest, abdomen, and pelvis CT scan. S/p a rather challenging sigmoid colectomy with performance of end colostomy (Reid's procedure), takedown of splenic flexure of the colon, lysis of adhesions (60 minutes), and abdominal lavage at [facility] on 09/21/16; diagnosis of colon ischemia (distal transverse colon and descending colon) during reentry through recent laparotomy incision with exploration of abdominal cavity, takedown of colostomy, completion left hemicolectomy with resection of distal transverse colon, lysis of adhesions, abdominal lavage, performance of an end colostomy [facility] 09/24/16. Extubated post op evening of 09/25/16. Decompensation with intubation and restart of pressors . Right-sided pneumothorax after drainage of right pleural effusion requiring chest tube placement 09/30/2016. Extubated 10/03/2016. Decompensation with reintubation 10/06/16. Comorbidities: 1. Perforated sigmoid colon (see below) 2. Status post ventriculoperitoneal shunt placement. 3. Status post prior hysterectomy and bilateral salpingo-oophorectomy through Pfannenstiel incision 4. S/p IR drainage 09/09/16 with removal of 20 cc pus and placement of a 10 Fr. pigtail catheter at [facility]. 5. Readmission to [facility] 09/15/16 with upsizing of drain to 12 Fr pigtail on (communication with colon demonstrated; no obvious free communication to rest of peritoneal space). Septic shock with multiorgan failure 09/21/2016 requiring ICU admission with intubation and pressors. 6. S/p a rather challenging sigmoid colectomy with performance of end colostomy (Reid's procedure), takedown of splenic flexure of the colon, lysis of adhesions (60 minutes), and abdominal lavage at [facility] on 09/21/16 7. Colon ischemia (distal transverse colon and descending colon) 8. S/p reentry through recent laparotomy incision with exploration of abdominal cavity, takedown of colostomy, completion left hemicolectomy with resection of distal transverse colon, lysis of adhesions, abdominal lavage, performance of an end colostomy [facility] 09/24/16 9. Stage I/II decubitus pressure ulcers (10/11/2016 [facility] ICU) Subjective: Remain intubated without major events. Lethargic and not communicative. Overall same as yesterday. Scheduled for trach today. Objective: Vitals: See below I's & O's: See below Exam: GENERAL: On exam, the patient was lying in bed and appeared to be breathing comfortably on the vent. No obvious acute distress. ABDOMEN: Soft, nontender and nondistended. Incision dressings are clean, dry and intact without any obvious evidence of underlying erythema, edema, discharge , or hernia. Surgical drain ss without any evidence of enteric contents. There are no peritoneal signs or guarding. Ostomy appears to be viable and productive with stool and air in the bag. SKIN: Skin appears to be pink and feels warm to touch. NEUROLOGIC: Patient is arousable with voice but for the most part noncommunicative and does not respond to simple commands. Remains intubated and sedated. Labs: See below Exam/Review of Systems Vital Signs Vitals Vital Signs Date Time Temp Pulse Resp B/P Pulse Ox O2 Delivery O2 Flow Rate FiO2 10/11/16 08:45 96 14 106/62 97 10/11/16 08:00 99.7 Mechanical Ventilator 10/11/16 05:40 40 Intake and Output 10/10/16 10/10/16 10/11/16 15:00 23:00 07:00 Intake Total 520.1 ml 530.55 ml 196.90 ml Output Total 1000 ml 800 ml 375 ml Balance -479.9 ml -269.45 ml -178.10 ml Results Result Diagram: 10/11/16 0440 10/11/16 0440 ALEXSANDER DUARTE M.D. Oct 11, 2016 11:14
[2016-10-11] MEDS: CASPOFUNGIN 50 MG in SOD CHLORIDE 0.9% 250 ML IVPB SCH (11:49)
--- NOTE | 2016-10-11 12:02 | CONS ---
Date/Time of Note Date/Time of Note DATE: 10/11/16 TIME: 12:00 Assessment/Plan Assessment/Plan Additional Assessment/Plan Ventilator setting; AC of 12, tidal volume 500, PEEP of 5, 40% FiO2. Assessment and recommendations; 1. Patient admitted with sepsis as well as bilateral pneumonia, was successfully extubated and developed severe bilateral pneumonia requiring reintubation. 2. History of ROULETTE DEALER shunt. 3. History of recent colostomy. 4. Anemia. 5. Renal insufficiency. 6. Status post G-tube placement yesterday. Continue current treatment. Obtain follow-up chest x-ray. Patient scheduled for tracheostomy. Prognosis is guarded. Consultation Date/Type/Reason Admit Date/Time Sep 15, 2016 at 21:35 Initial Consult Date 09/21/16 Type of Consultation: Pulmonary/critical care 24 HR Interval Summary Free Text/Dictation Patient condition remains critical. Still requiring full ventilator support. As well as pressor support with Levophed drip. General exam; elderly female, orally intubated, currently in no distress. Sedated. Exam/Review of Systems Vital Signs Vitals Vital Signs Date Time Temp Pulse Resp B/P Pulse Ox O2 Delivery O2 Flow Rate FiO2 10/11/16 11:00 88 12 114/61 96 Mechanical Ventilator 10/11/16 08:00 99.7 10/11/16 05:40 40 Intake and Output 10/10/16 10/10/16 10/11/16 15:00 23:00 07:00 Intake Total 520.1 ml 530.55 ml 196.90 ml Output Total 1000 ml 800 ml 375 ml Balance -479.9 ml -269.45 ml -178.10 ml Exam HEENT exam; supple neck, no JVD. No lymphadenopathy. Midline trachea. No thyromegaly. Orally intubated. Patient had multiple carious teeth. Chest exam; diminished but clear breath sounds. S1-S2 audible, no murmurs. Regular rhythm. Abdomen exam; soft, bowel sounds are sluggish. Colostomy in place. G-tube in place. Extremity exam; trace generalized edema. THERMOMETER TESTER exam; patient is sedated. Results Result Diagram: 10/11/16 0440 10/11/16 0440 Results 24 hrs Laboratory Tests Test 10/11/16 04:40 White Blood Count 20.5 H Red Blood Count 2.79 L Hemoglobin 7.8 L Hematocrit 24.9 L Mean Corpuscular Volume 89.2 Mean Corpuscular Hemoglobin 28.0 L Mean Corpuscular Hemoglobin Concent 31.3 L Red Cell Distribution Width 22.2 H Platelet Count 169 Mean Platelet Volume 12.4 H Neutrophils % Segmented Neutrophils % (Manual) 67 Band Neutrophils % (Manual) 28 H Lymphocytes % Lymphocytes % (Manual) 4 L Monocytes % Eosinophils % Basophils % Basophils % (Manual) 1 Nucleated Red Blood Cells % 0.0 Neutrophils # Neutrophils # (Manual) 14.9 H Band Neutrophils # 5.7 H Absolute Lymphocytes (Manual) 0.8 Lymphocytes # Monocytes # Eosinophils # Basophils # Basophils # (Manual) 0.2 H Nucleated Red Blood Cells # Smudge Cells % 20 H Platelet Estimate NORMAL Polychromasia 3+ Hypochromasia 2+ Anisocytosis 1+ Macrocytosis 1+ Sodium Level 147 H Potassium Level 3.5 Chloride Level 102 Carbon Dioxide Level 33 H Anion Gap 16 Blood Urea Nitrogen 39 H Creatinine 1.04 H Glucose Level 103 Calcium Level 7.2 L Phosphorus Level 5.8 H Magnesium Level 2.0 Medications Medications Current Medications Ondansetron HCl (Zofran Inj) 4 mg Q6H PRN IV NAUSEA AND/OR VOMITING Last administered on 09/26/16 09:23; Admin Dose 4 MG; Start 09/16/16 at 00:30 Acetaminophen (Tylenol Tab) 650 mg Q6H PRN PO PAIN LEVEL 1-3 OR FEVER Last administered on 10/08/16 12:47; Admin Dose 650 MG; Start 09/16/16 at 00:30 Polyethylene Glycol 17 gm 17 gm DAILY PO Last administered on 10/11/16 09:44; Admin Dose 17 GM; Start 09/20/16 at 11:00 Norepinephrine/ Dextrose (Levophed/D5W) 500 ml @ 1.87 mls/hr TITRATE IV Last administered on 10/09/16 06:59; Admin Dose 11.25 MLS/HR; Start 09/21/16 at 09:00 Acetaminophen/ Hydrocodone Bitart ([place] (5/325)) 1 tab Q4H PRN PO PAIN LEVEL 4 -7 Last administered on 09/28/16 21:20; Admin Dose 1 TAB; Start 09/21/16 at 15: 00 Acetaminophen/ Hydrocodone Bitart ([place] (5/325)) 2 tab Q4H PRN PO PAIN LEVEL 7 -10; Start 09/21/16 at 15:00 Hydromorphone HCl (Dilaudid) 0.5 mg Q2H PRN IV PAIN Last administered on 16:41; Admin Dose 0.5 MG; Start 09/21/16 at 15:00 Hydromorphone HCl (Dilaudid) 1 mg Q2H PRN IV PAIN Last administered on 23:57; Admin Dose 1 MG; Start 09/21/16 at 15:00 Docusate Sodium (Colace) 100 mg BID PRN PO CONSTIPATION; Start 09/21/16 at 15: 00 Enoxaparin Sodium (Lovenox) 40 mg DAILY SC ; Start 09/22/16 at 09:00; Status Future Hold Docusate Sodium (Colace Liquid Cup) 100 mg BID NGT Last administered on 09:44; Admin Dose 100 MG; Start 09/22/16 at 21:00 IV Flush (NS 10 ml) 10 ml PRN PRN IV IV PROTOCOL; Start 09/25/16 at 12:00 Spironolactone 50 mg 50 mg DAILY NGT Last administered on 10/11/16 09:44; Admin Dose 50 MG; Start 09/28/16 at 09:00 Dopamine HCl/ Dextrose 250 ml @ 6.053 mls/ hr TITRATE IV Last administered on 09/30/16 04:46; Admin Dose 6.053 MLS/HR; Start 09/29/16 at 11:00 Phenylephrine HCl 40 mg/Dextrose 500 ml @ 75 mls/hr TITRATE IV ; Start at 14:00 Caspofungin/ Sodium Chloride (Cancidas/NS) 250 ml @ 250 mls/hr Q24H IVPB Last administered on 10/11/16 11:49; Admin Dose 250 MLS/HR; Start 10/01/16 at 12:00 Furosemide (Lasix) 20 mg Q6 IV Last administered on 10/11/16 06:02; Admin Dose 20 MG; Start 10/05/16 at 13:00 Lorazepam 0.5 mg 0.5 mg Q6H PRN IV AGITATION/ANXIETY Last administered on 23:21; Admin Dose 0.5 MG; Start 10/05/16 at 23:00 Propofol 100 ml @ 2.421 mls/ hr Q12H IV Last administered on 10/11/16 11:50; Admin Dose 7.263 MLS/HR; Start 10/06/16 at 14:30 Fentanyl 100 ml @ 2.5 mls/hr TITRATE IV Last administered on 10/11/16 03:39; Admin Dose 7.5 MLS/HR; Start 10/07/16 at 09:30 Tigecycline/ Sodium Chloride (Tygacil/NS) 100 ml @ 200 mls/hr Q12 IVPB Last administered on 10/11/16 09:44; Admin Dose 200 MLS/HR; Start 10/07/16 at 21:00 Morphine Sulfate (morphine) 2 mg Q4H PRN IV PAIN; Start 10/07/16 at 14:30 Pantoprazole (Protonix Iv) 40 mg BID@06,18 IV Last administered on 10/11/16 06: 02; Admin Dose 40 MG; Start 10/09/16 at 18:00 GERARDO JUSTICE Oct 11, 2016 12:02
--- NOTE | 2016-10-11 12:12 | CONS ---
Date/Time of Note Date/Time of Note DATE: 10/11/16 TIME: 12:10 Assessment/Plan Assessment/Plan Chief Complaint/Hosp Course ID PROGRESS NOTE CURRENT ABX ==> TYGACIL #5 + Cancidas #12 TOTAL ABX DAY #24 =>Cipro start 09/17 => VANCO IV + MERREM + FLAGYL #8-> DC'd 10/07 => HOSPITAL EVENTS: * s/p 09/21/16 Sigmoid colectomy with performance of end colostomy (Reid's procedure), w/Lysis of adhesions. * s/p 09/21/16 Externalization of CYTOGENETICS LABORATORY MANAGER shunt. INDICATION: Possible CYTOGENETICS LABORATORY MANAGER shunt infection, ABD abscess * Extubated 10/03 * RE-intubated 09/29 * s/p Left THORA 10/01 * Extubated 10/03 * Re-Intubated 10/06 * 10/10/16 PEG 24H INTERVAL SUMMARY * s/p peg -- plan is for TRACH * REPEAT RESPIRATORY CX RESPIRATORY CULTURE Preliminary GRAM NEGATIVE RODS RARE RESPIRATORY CULTURE Final Organism 1 NON LACTOSE FERMENTING GNR QUANTITY 1+ Organism 2 MOLD QUANTITY SCANT GROWTH EXAM: 70 yo F ->obtunted on the Vent HEENT:Orally intubated -> Vent Neck: trachea midline. Heart: S1, S2 CXT: chest rise symmetrical breath sounds clear, diminished basis. ABD: Soft, Wound Vac + Colostomy Extremities without cyanosis, (+) edema x4 = dependent edema ID ASSESSMENT 70 yo F w/PMHx ICH and CYTOGENETICS LABORATORY MANAGER shunt admit with: 1. s/p Sepsis w/shock , s/p lactic acidosis => Back on pressors 10/06/16 * (+)Leukocytosis * (+)Fevers >101.5 10/07 2. s/p Perforated sigmoid colon w/abscess: POD#-> s/p 09/21/16 Sigmoid colectomy with performance of end colostomy (Reid's procedure), w/Lysis of adhesions. * MICRO: 09/23/16 BODY FLUID CULTURE Final Organism 1 ENTEROCOCCUS SPECIES Organism 2 COAGULASE NEGATIVE STAPH Organism 3 ALPHA HEMOLYTIC STREP SPP . VIRIDANS GROUP 4. ABD WOUND => (+)VAC 5. Acute respiratory failure -> orally RE-intubated 10/06 6. CHF w/elevated BNP => (+)Anasarca w/Pleural effusions s/p CT drain 09/30 7. Bilateral PNA == Present on admission => WORSENING superimposed on pulmonary process POA * 10/02/ ETT aspirate (+) MOLD + yeast ->DDx contaminant, submit new sample * 10/07 ETT aspirate (+) MOLD + GNR -> Pending * 10/08/16 CT CHEST: Multiple bilateral cavitary nodules are again seen, similar to the prior CT - considerations include septic emboli, atypical (fungal, tuberculosis) infectious process, and possibly neoplasm. * CT 09/30 THORA BODY FLUID CULTURE no growth * AFB SMEAR (-) x 2 Final ACID FAST BACILLI NONE SEEN 8. Pancytopenia - sepsis 9. Coagulopathy w/thrombocytopenia 10. (+)Troponin elevation likely type II in the setting of septic shock. Echo from 09/18 showed normal EF and no significant valvular disease. 11. POD # ->S/P 09/21/16 Externalization of CYTOGENETICS LABORATORY MANAGER shunt. INDICATION: Possible CYTOGENETICS LABORATORY MANAGER shunt infection, hx of Hydrocephalus, CYTOGENETICS LABORATORY MANAGER shunt, abdominal abscess (-)MRSA Nares screen INVASIVES: PICC (09/25/16) , ETT, NGT, VPS, FC, CXT-Tube; PEG ABX ALLERGY: PCN CURRENT ABX ==> TYGACIL #5 + Cancidas #12 TOTAL ABX DAY #24 =>Cipro start 09/17 => VANCO IV + MERREM + FLAGYL #8-> DC'd 10/07 ID RECOMMENDATIONS NOTE: Sputum from ETT grew fungus == Possibly a contaminant; however repeat respiratory cx now (+) for MOLD * QUERY ? [employer] RESPIRATORY CULTURE Preliminary 1. Continue ABX 2. Await micro ID of MOLD growing in respiratory culture x 2 3 Send cocci, crypto, aspergillosis, histoplasma serology 4. PLAN: Trach * PEG . . . . . Problems: Consultation Date/Type/Reason Admit Date/Time Sep 15, 2016 at 21:35 Initial Consult Date 09/21/16 Type of Consultation: ID Exam/Review of Systems Vital Signs Vitals Vital Signs Date Time Temp Pulse Resp B/P Pulse Ox O2 Delivery O2 Flow Rate FiO2 10/11/16 11:00 88 12 114/61 96 Mechanical Ventilator 10/11/16 08:00 99.7 10/11/16 05:40 40 Intake and Output 8/05/2410/10/16 10/11/16 15:00 23:00 07:00 Intake Total 520.1 ml 530.55 ml 196.90 ml Output Total 1000 ml 800 ml 375 ml Balance -479.9 ml -269.45 ml -178.10 ml Results Result Diagram: 10/11/1643910/11/16439 Results 24 hrs Laboratory Tests Test 10/11/16 04:40 White Blood Count 20.5 H Red Blood Count 2.79 L Hemoglobin 7.8 L Hematocrit 24.9 L Mean Corpuscular Volume 89.2 Mean Corpuscular Hemoglobin 28.0 L Mean Corpuscular Hemoglobin Concent 31.3 L Red Cell Distribution Width 22.2 H Platelet Count 169 Mean Platelet Volume 12.4 H Neutrophils % Segmented Neutrophils % (Manual) 67 Band Neutrophils % (Manual) 28 H Lymphocytes % Lymphocytes % (Manual) 4 L Monocytes % Eosinophils % Basophils % Basophils % (Manual) 1 Nucleated Red Blood Cells % 0.0 Neutrophils # Neutrophils # (Manual) 14.9 H Band Neutrophils # 5.7 H Absolute Lymphocytes (Manual) 0.8 Lymphocytes # Monocytes # Eosinophils # Basophils # Basophils # (Manual) 0.2 H Nucleated Red Blood Cells # Smudge Cells % 20 H Platelet Estimate NORMAL Polychromasia 3+ Hypochromasia 2+ Anisocytosis 1+ Macrocytosis 1+ Sodium Level 147 H Potassium Level 3.5 Chloride Level 102 Carbon Dioxide Level 33 H Anion Gap 16 Blood Urea Nitrogen 39 H Creatinine 1.04 H Glucose Level 103 Calcium Level 7.2 L Phosphorus Level 5.8 H Magnesium Level 2.0 Medications Medications Current Medications Ondansetron HCl (Zofran Inj) 4 mg Q6H PRN IV NAUSEA AND/OR VOMITING Last administered on 09/26/16 09:23; Admin Dose 4 MG; Start 09/16/16 at 00:30 Acetaminophen (Tylenol Tab) 650 mg Q6H PRN PO PAIN LEVEL 1-3 OR FEVER Last administered on 10/08/16 12:47; Admin Dose 650 MG; Start 09/16/16 at 00:30 Polyethylene Glycol 17 gm 17 gm DAILY PO Last administered on 10/11/16 09:44; Admin Dose 17 GM; Start 09/20/16 at 11:00 Norepinephrine/ Dextrose (Levophed/D5W) 500 ml @ 1.87 mls/hr TITRATE IV Last administered on 10/09/16 06:59; Admin Dose 11.25 MLS/HR; Start 09/21/16 at 09:00 Acetaminophen/ Hydrocodone Bitart ([place] (5/325)) 1 tab Q4H PRN PO PAIN LEVEL 4 -7 Last administered on 09/28/16 21:20; Admin Dose 1 TAB; Start 09/21/16 at 15: 00 Acetaminophen/ Hydrocodone Bitart ([place] (5/325)) 2 tab Q4H PRN PO PAIN LEVEL 7 -10; Start 09/21/16 at 15:00 Hydromorphone HCl (Dilaudid) 0.5 mg Q2H PRN IV PAIN Last administered on 16:41; Admin Dose 0.5 MG; Start 09/21/16 at 15:00 Hydromorphone HCl (Dilaudid) 1 mg Q2H PRN IV PAIN Last administered on 23:57; Admin Dose 1 MG; Start 09/21/16 at 15:00 Docusate Sodium (Colace) 100 mg BID PRN PO CONSTIPATION; Start 09/21/16 at 15: 00 Enoxaparin Sodium (Lovenox) 40 mg DAILY SC ; Start 09/22/16 at 09:00; Status Future Hold Docusate Sodium (Colace Liquid Cup) 100 mg BID NGT Last administered on 09:44; Admin Dose 100 MG; Start 09/22/16 at 21:00 IV Flush (NS 10 ml) 10 ml PRN PRN IV IV PROTOCOL; Start 09/25/16 at 12:00 Spironolactone 50 mg 50 mg DAILY NGT Last administered on 10/11/16 09:44; Admin Dose 50 MG; Start 09/28/16 at 09:00 Dopamine HCl/ Dextrose 250 ml @ 6.053 mls/ hr TITRATE IV Last administered on 09/30/16 04:46; Admin Dose 6.053 MLS/HR; Start 09/29/16 at 11:00 Phenylephrine HCl 40 mg/Dextrose 500 ml @ 75 mls/hr TITRATE IV ; Start at 14:00 Caspofungin/ Sodium Chloride (Cancidas/NS) 250 ml @ 250 mls/hr Q24H IVPB Last administered on 10/11/16 11:49; Admin Dose 250 MLS/HR; Start 10/01/16 at 12:00 Furosemide (Lasix) 20 mg Q6 IV Last administered on 10/11/16 11:59; Admin Dose 20 MG; Start 10/05/16 at 13:00 Lorazepam 0.5 mg 0.5 mg Q6H PRN IV AGITATION/ANXIETY Last administered on 23:21; Admin Dose 0.5 MG; Start 10/05/16 at 23:00 Propofol 100 ml @ 2.421 mls/ hr Q12H IV Last administered on 10/11/16 11:50; Admin Dose 7.263 MLS/HR; Start 10/06/16 at 14:30 Fentanyl 100 ml @ 2.5 mls/hr TITRATE IV Last administered on 10/11/16 03:39; Admin Dose 7.5 MLS/HR; Start 10/07/16 at 09:30 Tigecycline/ Sodium Chloride (Tygacil/NS) 100 ml @ 200 mls/hr Q12 IVPB Last administered on 10/11/16 09:44; Admin Dose 200 MLS/HR; Start 10/07/16 at 21:00 Morphine Sulfate (morphine) 2 mg Q4H PRN IV PAIN; Start 10/07/16 at 14:30 Pantoprazole (Protonix Iv) 40 mg BID@06,18 IV Last administered on 10/11/16 06: 02; Admin Dose 40 MG; Start 10/09/16 at 18:00 DONNA HERNANDEZ NP Oct 11, 2016 12:12
[2016-10-11] MEDS: BALSAM PERU/CASTOR OIL 60 GM TUBE TOP SCH (12:26)
--- NOTE | 2016-10-11 13:50 | PN ---
Date/Time of Note Date/Time of Note DATE: 10/11/16 TIME: 13:47 Assessment/Plan VTE Prophylaxis VTE Prophylaxis Intervention: SCD's Lines/Catheters IV Catheter Type (from Nrs): PICC Line Central line still needed: Yes Urinary Cath still in place: Yes Reason Cath still needed: urinary retention Assessment/Plan Assessment/Plan Assessment * Dysphagia S/P PEG * Acute respiratory failure * Sepsis controlled * S/P left hemicolectomy sec to colonic ischemia * S/P Helio procedure sed to diverticular abscess * S?P chest tube sec to pneumothorax Plan * may resume tube feeding * continue present management * case discussed with Dr Seymour * Further orders will depend on clinical course Subjective 24 Hr Interval Summary Free Text/Dictation * Course reviewed * Patient seen and examined * No untoward events overnight Exam/Review of Systems Vital Signs Vitals Vital Signs Date Time Temp Pulse Resp B/P Pulse Ox O2 Delivery O2 Flow Rate FiO2 10/11/16 12:30 85 12 128/62 97 10/11/16 12:00 97.9 Mechanical Ventilator 10/11/16 11:30 40 Intake and Output 10/10/16 10/10/16 10/11/16 15:00 23:00 07:00 Intake Total 520.1 ml 530.55 ml 196.90 ml Output Total 1000 ml 800 ml 375 ml Balance -479.9 ml -269.45 ml -178.10 ml Exam Constitutional: frail ENMT: intubated Neck: non-tender, supple Respiratory: crackles/rales, diminished breath sounds Cardiovascular: nl pulses, regular rate and rhythm Gastrointestinal: distended, other (G tube), soft Musculoskeletal: muscle weakness Extremities: edema, pitting pedal edema Skin: rash or lesions Lymph: nl lymph nodes Results Result Diagram: 10/11/160 10/11/160 Results 24 hrs Laboratory Tests Test 10/11/16 04:40 White Blood Count 20.5 H Red Blood Count 2.79 L Hemoglobin 7.8 L Hematocrit 24.9 L Mean Corpuscular Volume 89.2 Mean Corpuscular Hemoglobin 28.0 L Mean Corpuscular Hemoglobin Concent 31.3 L Red Cell Distribution Width 22.2 H Platelet Count 169 Mean Platelet Volume 12.4 H Neutrophils % Segmented Neutrophils % (Manual) 67 Band Neutrophils % (Manual) 28 H Lymphocytes % Lymphocytes % (Manual) 4 L Monocytes % Eosinophils % Basophils % Basophils % (Manual) 1 Nucleated Red Blood Cells % 0.0 Neutrophils # Neutrophils # (Manual) 14.9 H Band Neutrophils # 5.7 H Absolute Lymphocytes (Manual) 0.8 Lymphocytes # Monocytes # Eosinophils # Basophils # Basophils # (Manual) 0.2 H Nucleated Red Blood Cells # Smudge Cells % 20 H Platelet Estimate NORMAL Polychromasia 3+ Hypochromasia 2+ Anisocytosis 1+ Macrocytosis 1+ Sodium Level 147 H Potassium Level 3.5 Chloride Level 102 Carbon Dioxide Level 33 H Anion Gap 16 Blood Urea Nitrogen 39 H Creatinine 1.04 H Glucose Level 103 Calcium Level 7.2 L Phosphorus Level 5.8 H Magnesium Level 2.0 Medications Medications Current Medications Ondansetron HCl (Zofran Inj) 4 mg Q6H PRN IV NAUSEA AND/OR VOMITING Last administered on 09/26/16 09:23; Admin Dose 4 MG; Start 09/16/16 at 00:30 Acetaminophen (Tylenol Tab) 650 mg Q6H PRN PO PAIN LEVEL 1-3 OR FEVER Last administered on 10/08/16 12:47; Admin Dose 650 MG; Start 09/16/16 at 00:30 Polyethylene Glycol 17 gm 17 gm DAILY PO Last administered on 10/11/16 09:44; Admin Dose 17 GM; Start 09/20/16 at 11:00 Norepinephrine/ Dextrose (Levophed/D5W) 500 ml @ 1.87 mls/hr TITRATE IV Last administered on 10/09/16 06:59; Admin Dose 11.25 MLS/HR; Start 09/21/16 at 09:00 Acetaminophen/ Hydrocodone Bitart ([place] (5/325)) 1 tab Q4H PRN PO PAIN LEVEL 4 -7 Last administered on 09/28/16 21:20; Admin Dose 1 TAB; Start 09/21/16 at 15: 00 Acetaminophen/ Hydrocodone Bitart ([place] (5/325)) 2 tab Q4H PRN PO PAIN LEVEL 7 -10; Start 09/21/16 at 15:00 Hydromorphone HCl (Dilaudid) 0.5 mg Q2H PRN IV PAIN Last administered on 16:41; Admin Dose 0.5 MG; Start 09/21/16 at 15:00 Hydromorphone HCl (Dilaudid) 1 mg Q2H PRN IV PAIN Last administered on 23:57; Admin Dose 1 MG; Start 09/21/16 at 15:00 Docusate Sodium (Colace) 100 mg BID PRN PO CONSTIPATION; Start 09/21/16 at 15: 00 Enoxaparin Sodium (Lovenox) 40 mg DAILY SC ; Start 09/22/16 at 09:00; Status Future Hold Docusate Sodium (Colace Liquid Cup) 100 mg BID NGT Last administered on 09:44; Admin Dose 100 MG; Start 09/22/16 at 21:00 IV Flush (NS 10 ml) 10 ml PRN PRN IV IV PROTOCOL; Start 09/25/16 at 12:00 Spironolactone 50 mg 50 mg DAILY NGT Last administered on 10/11/16 09:44; Admin Dose 50 MG; Start 09/28/16 at 09:00 Dopamine HCl/ Dextrose 250 ml @ 6.053 mls/ hr TITRATE IV Last administered on 09/30/16 04:46; Admin Dose 6.053 MLS/HR; Start 09/29/16 at 11:00 Phenylephrine HCl 40 mg/Dextrose 500 ml @ 75 mls/hr TITRATE IV ; Start at 14:00 Caspofungin/ Sodium Chloride (Cancidas/NS) 250 ml @ 250 mls/hr Q24H IVPB Last administered on 10/11/16 11:49; Admin Dose 250 MLS/HR; Start 10/01/16 at 12:00 Furosemide (Lasix) 20 mg Q6 IV Last administered on 10/11/16 11:59; Admin Dose 20 MG; Start 10/05/16 at 13:00 Lorazepam 0.5 mg 0.5 mg Q6H PRN IV AGITATION/ANXIETY Last administered on 23:21; Admin Dose 0.5 MG; Start 10/05/16 at 23:00 Propofol 100 ml @ 2.421 mls/ hr Q12H IV Last administered on 10/11/16 11:50; Admin Dose 7.263 MLS/HR; Start 10/06/16 at 14:30 Fentanyl 100 ml @ 2.5 mls/hr TITRATE IV Last administered on 10/11/16 03:39; Admin Dose 7.5 MLS/HR; Start 10/07/16 at 09:30 Tigecycline/ Sodium Chloride (Tygacil/NS) 100 ml @ 200 mls/hr Q12 IVPB Last administered on 10/11/16 09:44; Admin Dose 200 MLS/HR; Start 10/07/16 at 21:00 Morphine Sulfate (morphine) 2 mg Q4H PRN IV PAIN; Start 10/07/16 at 14:30 Pantoprazole (Protonix Iv) 40 mg BID@06,18 IV Last administered on 10/11/16 06: 02; Admin Dose 40 MG; Start 10/09/16 at 18:00 ENRICO GONZALEZ NP Oct 11, 2016 13:50
--- NOTE | 2016-10-11 13:53 | RADRPT ---
PROCEDURE: XR Chest. CLINICAL INDICATION: Respiratory failure TECHNIQUE: An AP view of the chest was obtained. COMPARISON: Chest x-ray dated 10/07/[address] chest dated 10/08/2016 FINDINGS: The endotracheal tube tip is approximately 3.6 cm above the zana. There is a right upper extrem ity PICC line with tip near the cavoatrial junction. There is prominence of the interstitial markings with small bilateral pleural effusions. There are patchy bilateral interstitial opacities. No pneumothorax is seen. The cardiomediastinal silhouette is within normal limits for size. Calcifications are seen within the aortic arch. The osseous stru ctures demonstrate senescent changes. IMPRESSION: 1. Patchy bilateral interstitial opacities, corresponding to multifocal pneumonia noted on prior CT . No significant interval change given differences in modality. 2. Underlying interstitial edema with small bilateral pleural effusions, also unchanged. 3. Aortic atherosclerosis. 4. Tubes and lines, as described above. RPTAT: HH .Vilma Leiva MD, MD Date Time Electronically viewed and signed by .Vilma Leiva MD, on 10/11/2016 13:53 .G/
--- NOTE | 2016-10-11 15:12 | PN ---
Date/Time of Note Date/Time of Note DATE: 10/11/16 TIME: 15:12 Assessment/Plan Lines/Catheters IV Catheter Type (from Nrsg): PICC Line Shore in Place (from Nrsg): Yes Assessment/Plan Chief Complaint/Hosp Course This is a 70-year-old female admitted with a perforated colon and contained abscess underwent a drainage procedure on further colonic procedures patient is currently in the intensive care unit unable to come off the ventilator secondary to multiple medical problems Patient was extubated and had to be input intubated again has been treated for septic shock lactic acidosis peritonitis currently has an end colostomy Helio pouch and has undergone colon resection patient also has a right-sided chest tube for a pneumothorax She was reintubated again Plan for tracheostomy on today Problems: Subjective 24 Hr Interval Summary Constitutional: improved Pain Control: mild Exam/Review of Systems Vital Signs Vitals Vital Signs Date Time Temp Pulse Resp B/P Pulse Ox O2 Delivery O2 Flow Rate FiO2 10/11/16 12:30 85 12 128/62 97 10/11/16 12:00 40 10/11/16 12:00 97.9 Mechanical Ventilator Intake and Output 10/10/16 10/10/16 10/11/16 15:00 23:00 07:00 Intake Total 520.1 ml 530.55 ml 196.90 ml Output Total 1000 ml 800 ml 375 ml Balance -479.9 ml -269.45 ml -178.10 ml Exam Eyes: EOMI, nl conjunctiva, nl lids, nl sclera ENMT: mucosa pink and moist, nl external ears & nose, nl lips & teeth, nl nasal mucosa & septum Neck: non-tender, supple Respiratory: clear to auscultation, normal air movement Cardiovascular: nl pulses, regular rate and rhythm Results Result Diagram: 10/11/1643910/11/16439 GIL PINEDA MD Oct 11, 2016 15:12
--- NOTE | 2016-10-11 17:03 | PN ---
Date/Time of Note Date/Time of Note DATE: 10/11/16 TIME: 17:02 Assessment/Plan VTE Prophylaxis VTE Prophylaxis Intervention: SCD's Assessment/Plan Chief Complaint/Hosp Course 1. Sigmoid colon abscess, likely a complication of diverticulitis - s/p sigmoid colectomy with end colostomy (Reid's procedure) and adhesiolysis on 09/21/16 - continue antibiotics. Follow-up surgery recommendation. ID is on board, plan is for further drain placement 2. Status post septic shock -Continue antibiotics and IV fluid. -Pressors as needed. 3. Ventilator dependent respiratory failure: Status post re-extubation few days ago. -Plan is for tracheostomy tomorrow 4. Left pleural effusion: Status post thoracentesis, complicated with pneumothorax status post placement of a chest tube. 4. History of ICH, s/p ventriculoperitoneal shunt placement: Neurosurg on board 5. Paroxysmal A. fib: Now in sinus rhythm status post amiodarone and dopamine. Cardiology on board, appreciate recommendation 6. Acute renal insufficiency: Resolved. Appreciate nephrology input. 7. s/p NSTEMI: Likely secondary to septic shock. Cardiology on board. 8. Volume overload state: Continue diuresis. Patient still has bilateral lower extremity pitting edema. 9. Anemia, likely a combination of iron deficiency and anemia of chronic disease: Previous notes mention iron replacement. Given patient is extubated, will start her on ferrous sulfate once she passes swallow evaluation. She did fail swallow evaluation yesterday. will consider blood transfusion 10. Hypokalemia: Replete 11. Dysphagia Status post PEG tube placement Prophylaxis: SCDs Discharge planning: Plans for tracheostomy today and CT-guided drain placement tomorrow, Patient's ex- is spokesperson at this time and states that patient would have wanted aggressive interventions as long as she was not brain . Patient will also ultimately need halfway placement Problems: Subjective 24 Hr Interval Summary Subjective hx not possible: pt non-verbal Exam/Review of Systems Vital Signs Vitals Vital Signs Date Time Temp Pulse Resp B/P Pulse Ox O2 Delivery O2 Flow Rate FiO2 10/11/16 15:30 80 12 98 40 10/11/16 15:30 126/61 10/11/16 15:00 Mechanical Ventilator 10/11/16 12:00 97.9 Intake and Output 10/10/16 10/10/16 10/11/16 15:00 23:00 07:00 Intake Total 520.1 ml 530.55 ml 224.52 ml Output Total 1000 ml 800 ml 375 ml Balance -479.9 ml -269.45 ml -150.48 ml Exam Constitutional: non-verbal ENMT: intubated Respiratory: clear to auscultation Cardiovascular: regular rate and rhythm Gastrointestinal: soft, No distended Musculoskeletal: nl extremities to inspection Results Result Diagram: 10/11/1643910/11/16439 Results 24 hrs Laboratory Tests Test 10/11/16 04:40 White Blood Count 20.5 H Red Blood Count 2.79 L Hemoglobin 7.8 L Hematocrit 24.9 L Mean Corpuscular Volume 89.2 Mean Corpuscular Hemoglobin 28.0 L Mean Corpuscular Hemoglobin Concent 31.3 L Red Cell Distribution Width 22.2 H Platelet Count 169 Mean Platelet Volume 12.4 H Neutrophils % Segmented Neutrophils % (Manual) 67 Band Neutrophils % (Manual) 28 H Lymphocytes % Lymphocytes % (Manual) 4 L Monocytes % Eosinophils % Basophils % Basophils % (Manual) 1 Nucleated Red Blood Cells % 0.0 Neutrophils # Neutrophils # (Manual) 14.9 H Band Neutrophils # 5.7 H Absolute Lymphocytes (Manual) 0.8 Lymphocytes # Monocytes # Eosinophils # Basophils # Basophils # (Manual) 0.2 H Nucleated Red Blood Cells # Smudge Cells % 20 H Platelet Estimate NORMAL Polychromasia 3+ Hypochromasia 2+ Anisocytosis 1+ Macrocytosis 1+ Sodium Level 147 H Potassium Level 3.5 Chloride Level 102 Carbon Dioxide Level 33 H Anion Gap 16 Blood Urea Nitrogen 39 H Creatinine 1.04 H Glucose Level 103 Calcium Level 7.2 L Phosphorus Level 5.8 H Magnesium Level 2.0 Medications Medications Current Medications Ondansetron HCl (Zofran Inj) 4 mg Q6H PRN IV NAUSEA AND/OR VOMITING Last administered on 09/26/16 09:23; Admin Dose 4 MG; Start 09/16/16 at 00:30 Acetaminophen (Tylenol Tab) 650 mg Q6H PRN PO PAIN LEVEL 1-3 OR FEVER Last administered on 10/08/16 12:47; Admin Dose 650 MG; Start 09/16/16 at 00:30 Polyethylene Glycol 17 gm 17 gm DAILY PO Last administered on 10/11/16 09:44; Admin Dose 17 GM; Start 09/20/16 at 11:00 Norepinephrine/ Dextrose (Levophed/D5W) 500 ml @ 1.87 mls/hr TITRATE IV Last administered on 10/11/16 14:39; Admin Dose 11.25 MLS/HR; Start 09/21/16 at 09:00 Acetaminophen/ Hydrocodone Bitart ([employer] (5/325)) 1 tab Q4H PRN PO PAIN LEVEL 4 -7 Last administered on 09/28/16 21:20; Admin Dose 1 TAB; Start 09/21/16 at 15: 00 Acetaminophen/ Hydrocodone Bitart ([employer] (5/325)) 2 tab Q4H PRN PO PAIN LEVEL 7 -10; Start 09/21/16 at 15:00 Hydromorphone HCl (Dilaudid) 0.5 mg Q2H PRN IV PAIN Last administered on 16:41; Admin Dose 0.5 MG; Start 09/21/16 at 15:00 Hydromorphone HCl (Dilaudid) 1 mg Q2H PRN IV PAIN Last administered on 23:57; Admin Dose 1 MG; Start 09/21/16 at 15:00 Docusate Sodium (Colace) 100 mg BID PRN PO CONSTIPATION; Start 09/21/16 at 15: 00 Enoxaparin Sodium (Lovenox) 40 mg DAILY SC ; Start 09/22/16 at 09:00; Status Future Hold Docusate Sodium (Colace Liquid Cup) 100 mg BID NGT Last administered on 09:44; Admin Dose 100 MG; Start 09/22/16 at 21:00 IV Flush (NS 10 ml) 10 ml PRN PRN IV IV PROTOCOL; Start 09/25/16 at 12:00 Spironolactone 50 mg 50 mg DAILY NGT Last administered on 10/11/16 09:44; Admin Dose 50 MG; Start 09/28/16 at 09:00 Dopamine HCl/ Dextrose 250 ml @ 6.053 mls/ hr TITRATE IV Last administered on 09/30/16 04:46; Admin Dose 6.053 MLS/HR; Start 09/29/16 at 11:00 Phenylephrine HCl 40 mg/Dextrose 500 ml @ 75 mls/hr TITRATE IV ; Start at 14:00 Caspofungin/ Sodium Chloride (Cancidas/NS) 250 ml @ 250 mls/hr Q24H IVPB Last administered on 10/11/16 11:49; Admin Dose 250 MLS/HR; Start 10/01/16 at 12:00 Furosemide (Lasix) 20 mg Q6 IV Last administered on 10/11/16 11:59; Admin Dose 20 MG; Start 10/05/16 at 13:00 Lorazepam 0.5 mg 0.5 mg Q6H PRN IV AGITATION/ANXIETY Last administered on 23:21; Admin Dose 0.5 MG; Start 10/05/16 at 23:00 Propofol 100 ml @ 2.421 mls/ hr Q12H IV Last administered on 10/11/16 11:50; Admin Dose 7.263 MLS/HR; Start 10/06/16 at 14:30 Fentanyl 100 ml @ 2.5 mls/hr TITRATE IV Last administered on 10/11/16 16:34; Admin Dose 7.5 MLS/HR; Start 10/07/16 at 09:30 Tigecycline/ Sodium Chloride (Tygacil/NS) 100 ml @ 200 mls/hr Q12 IVPB Last administered on 10/11/16 09:44; Admin Dose 200 MLS/HR; Start 10/07/16 at 21:00 Morphine Sulfate (morphine) 2 mg Q4H PRN IV PAIN; Start 10/07/16 at 14:30 Pantoprazole (Protonix Iv) 40 mg BID@06,18 IV Last administered on 10/11/16 06: 02; Admin Dose 40 MG; Start 10/09/16 at 18:00 DALE RODARTE Oct 11, 2016 17:03
--- NOTE | 2016-10-11 18:18 | CONS ---
Date/Time of Note Date/Time of Note DATE: 10/11/16 TIME: 18:17 Assessment/Plan Assessment/Plan Chief Complaint/Hosp Course Acute respiratory failure: Reintubated again 10/06 Acute diastolic heart failure: Secondary to volume resuscitation in setting of low albumin and third spacing. Significant anasarca. Diuresing Paroxysmal afib: converted on amiodarone. Currently in sinus rhythm Septic shock: intraabdominal abscess, bilateral pneumonia. S/p sigmoid colectomy. Tension pneumothorax: due to thoracentesis. s/p chest tube 09/30 NSTEMI: Trop mildly elevated likely type II in the setting of septic shock. Echo from 09/18 showed normal EF and no significant valvular disease. Repeat trop normalized Diverticulitis complicated by abscess s/p sigmoid colectomy and now colostomy Coagulopathy: ?DIC. Resolved h/o ICH with [employer]OR OF [employer] shunt -Continue Lasix to 20mg IV [id number] -Continue Levophed to maintain MAP > 65 -Ventilator management per pulmonology -Antibiotics per infectious disease Problems: Consultation Date/Type/Reason Admit Date/Time Sep 15, 2016 at 21:35 Initial Consult Date 09/21/16 Type of Consultation: Cardiology 24 HR Interval Summary Free Text/Dictation No significant clinical changes. Remains on low dose Levophed drip. Planned for tracheostomy. Detailed Summary Additional Comments Unable to obtain review of systems, patient is intubated. Exam/Review of Systems Vital Signs Vitals Vital Signs Date Time Temp Pulse Resp B/P Pulse Ox O2 Delivery O2 Flow Rate FiO2 10/11/16 17:20 109 12 97 40 10/11/16 15:30 126/61 10/11/16 15:00 Mechanical Ventilator 10/11/16 12:00 97.9 Intake and Output 10/10/16 10/10/16 10/11/16 15:00 23:00 07:00 Intake Total 520.1 ml 530.55 ml 224.52 ml Output Total 1000 ml 800 ml 375 ml Balance -479.9 ml -269.45 ml -150.48 ml Exam Constitutional: intubated HEENT: NCAT Neck: No obvious JVD, no carotid bruits Respiratory: diminished breath sounds, scattered crackles, no wheezes; chest tube noted Cardiovascular: Tachycardic, regular, no m/r/g, 2+ pitting BLE edema Gastrointestinal: non-tender, soft, grimaces to palpation Extremities: warm, no cyanosis or clubbing, LE SCDs in place Results Result Diagram: 10/11/16 0440 10/11/16 0440 Results 24 hrs Laboratory Tests Test 10/11/16 04:40 White Blood Count 20.5 H Red Blood Count 2.79 L Hemoglobin 7.8 L Hematocrit 24.9 L Mean Corpuscular Volume 89.2 Mean Corpuscular Hemoglobin 28.0 L Mean Corpuscular Hemoglobin Concent 31.3 L Red Cell Distribution Width 22.2 H Platelet Count 169 Mean Platelet Volume 12.4 H Neutrophils % Segmented Neutrophils % (Manual) 67 Band Neutrophils % (Manual) 28 H Lymphocytes % Lymphocytes % (Manual) 4 L Monocytes % Eosinophils % Basophils % Basophils % (Manual) 1 Nucleated Red Blood Cells % 0.0 Neutrophils # Neutrophils # (Manual) 14.9 H Band Neutrophils # 5.7 H Absolute Lymphocytes (Manual) 0.8 Lymphocytes # Monocytes # Eosinophils # Basophils # Basophils # (Manual) 0.2 H Nucleated Red Blood Cells # Smudge Cells % 20 H Platelet Estimate NORMAL Polychromasia 3+ Hypochromasia 2+ Anisocytosis 1+ Macrocytosis 1+ Sodium Level 147 H Potassium Level 3.5 Chloride Level 102 Carbon Dioxide Level 33 H Anion Gap 16 Blood Urea Nitrogen 39 H Creatinine 1.04 H Glucose Level 103 Calcium Level 7.2 L Phosphorus Level 5.8 H Magnesium Level 2.0 Medications Medications Current Medications Ondansetron HCl (Zofran Inj) 4 mg Q6H PRN IV NAUSEA AND/OR VOMITING Last administered on 09/26/16 09:23; Admin Dose 4 MG; Start 09/16/16 at 00:30 Acetaminophen (Tylenol Tab) 650 mg Q6H PRN PO PAIN LEVEL 1-3 OR FEVER Last administered on 10/08/16 12:47; Admin Dose 650 MG; Start 09/16/16 at 00:30 Polyethylene Glycol 17 gm 17 gm DAILY PO Last administered on 10/11/16 09:44; Admin Dose 17 GM; Start 09/20/16 at 11:00 Norepinephrine/ Dextrose (Levophed/D5W) 500 ml @ 1.87 mls/hr TITRATE IV Last administered on 10/11/16 14:39; Admin Dose 11.25 MLS/HR; Start 09/21/16 at 09:00 Acetaminophen/ Hydrocodone Bitart ([place] (5/325)) 1 tab Q4H PRN PO PAIN LEVEL 4 -7 Last administered on 09/28/16 21:20; Admin Dose 1 TAB; Start 09/21/16 at 15: 00 Acetaminophen/ Hydrocodone Bitart ([place] (5/325)) 2 tab Q4H PRN PO PAIN LEVEL 7 -10; Start 09/21/16 at 15:00 Hydromorphone HCl (Dilaudid) 0.5 mg Q2H PRN IV PAIN Last administered on 16:41; Admin Dose 0.5 MG; Start 09/21/16 at 15:00 Hydromorphone HCl (Dilaudid) 1 mg Q2H PRN IV PAIN Last administered on 23:57; Admin Dose 1 MG; Start 09/21/16 at 15:00 Docusate Sodium (Colace) 100 mg BID PRN PO CONSTIPATION; Start 09/21/16 at 15: 00 Enoxaparin Sodium (Lovenox) 40 mg DAILY SC ; Start 09/22/16 at 09:00; Status Future Hold Docusate Sodium (Colace Liquid Cup) 100 mg BID NGT Last administered on 09:44; Admin Dose 100 MG; Start 09/22/16 at 21:00 IV Flush (NS 10 ml) 10 ml PRN PRN IV IV PROTOCOL; Start 09/25/16 at 12:00 Spironolactone 50 mg 50 mg DAILY NGT Last administered on 10/11/16 09:44; Admin Dose 50 MG; Start 09/28/16 at 09:00 Dopamine HCl/ Dextrose 250 ml @ 6.053 mls/ hr TITRATE IV Last administered on 09/30/16 04:46; Admin Dose 6.053 MLS/HR; Start 09/29/16 at 11:00 Phenylephrine HCl 40 mg/Dextrose 500 ml @ 75 mls/hr TITRATE IV ; Start at 14:00 Caspofungin/ Sodium Chloride (Cancidas/NS) 250 ml @ 250 mls/hr Q24H IVPB Last administered on 10/11/16 11:49; Admin Dose 250 MLS/HR; Start 10/01/16 at 12:00 Furosemide (Lasix) 20 mg Q6 IV Last administered on 10/11/16 11:59; Admin Dose 20 MG; Start 10/05/16 at 13:00 Lorazepam 0.5 mg 0.5 mg Q6H PRN IV AGITATION/ANXIETY Last administered on 23:21; Admin Dose 0.5 MG; Start 10/05/16 at 23:00 Propofol 100 ml @ 2.421 mls/ hr Q12H IV Last administered on 10/11/16 11:50; Admin Dose 7.263 MLS/HR; Start 10/06/16 at 14:30 Fentanyl 100 ml @ 2.5 mls/hr TITRATE IV Last administered on 10/11/16 16:34; Admin Dose 7.5 MLS/HR; Start 10/07/16 at 09:30 Tigecycline/ Sodium Chloride (Tygacil/NS) 100 ml @ 200 mls/hr Q12 IVPB Last administered on 10/11/16 09:44; Admin Dose 200 MLS/HR; Start 10/07/16 at 21:00 Morphine Sulfate (morphine) 2 mg Q4H PRN IV PAIN; Start 10/07/16 at 14:30 Pantoprazole (Protonix Iv) 40 mg BID@06,18 IV Last administered on 10/11/16 06: 02; Admin Dose 40 MG; Start 10/09/16 at 18:00 AVINASH FERNANDEZ MD Oct 11, 2016 18:18
[2016-10-11] MEDS ORDERED: LIDOCAINE 1% (MPF) 30 ML INJ ONE (18:43)
[2016-10-11] MEDS ORDERED: CEFAZOLIN 1 GM INJ ONE (19:30)
[2016-10-11] MEDS ORDERED: LIDOCAINE 2% (SDV) 5 ML INJ ONE (19:30)
[2016-10-11] MEDS ORDERED: PROPOFOL 40 ML ONE (19:36)
[2016-10-11] MEDS ORDERED: ROCURONIUM 50 MG INJ ONE (19:36)
[2016-10-11] MEDS ORDERED: FENTAnyl 50 MCG/ML VIAL ONE (19:36)
--- NOTE | 2016-10-11 20:09 | OPR ---
Date/Time of Note Date/Time of Note DATE: 10/11/16 TIME: 20:07 Operative Report Procedure Date: Oct 11, 2016 Preoperative Diagnosis Respiratory failure Postoperative Diagnosis Respiratory failure Operation Performed Tracheostomy Surgeon: GIL PINEDA MD Anesthesia: general, MAC Estimated Blood Loss: minimal Specimens None Grafts/Implants None Complications: None Pt Condition Post Procedure: critical Operative\Procedure Findings Patient was placed in supine position prepped and draped in usual sterile fashion timeout was called I started A 1 cm incision was made 1 fingerbreadth superior to the sternal notch in a horizontal fashion Incision was taken down to subcutaneous tissue using Metzenbaum scissors Access was gained into the trachea using the introducer needle Guidewire was advanced through without any difficulty Subcutaneous tissues were dilated using progressively larger dilator Endotracheal tube was removed an 8 cuffed tracheostomy tube advanced into the trachea secured to skin using 4 nylon suture And a trach tie Patient tolerated procedure well GIL PINEDA MD Oct 11, 2016 20:09
[2016-10-11] MEDS ORDERED: EPHEDrine SULFATE 50 MG/5 ML SYG IV PRN (20:30)
[2016-10-11] MEDS ORDERED: LABETALOL HCL 20MG INJ IV PRN (20:30)
[2016-10-11] MEDS ORDERED: hydrALAzine 20 MG INJ IV PRN (20:30)
[2016-10-11] MEDS ORDERED: HYDROmorphONE 1 MG/ML SYG IV PRN ×2 (20:30)
[2016-10-12] VITALS (104 sets, daily range): BP systolic 74–133; BP diastolic 43–83; PULSE 64–110; RESP 11–19
[2016-10-12] MEDS: FUROSEMIDE 20 MG INJ IV SCH ×4 (00:18→18:06)
[2016-10-12] MEDS: ALBUTEROL 18 GM INHALER INH SCH ×6 (01:27→20:55)
[2016-10-12] MEDS: IPRATROPIUM (HFA) 12.9 GM INHALER INH SCH ×6 (01:27→20:55)
[2016-10-12 05:18] LABS: ABNORMAL IP MESSAGE 1; BASOPHIL # 0.1 10^3/ul (0.0-0.1); BASOPHILS % 0.3 % (0.0-2.0); HEMATOCRIT 25.4 % (37.0-47.0); HEMOGLOBIN 8.1 g/dl (12.0-16.0); LYMPHOCYTES # 0.9 10^3/ul (0.8-2.9); LYMPHOCYTES % 3.7 % (15.0-51.0); MEAN CORPUSCULAR HEMOGLOBIN 28.6 pg (29.0-33.0); MEAN CORPUSCULAR HGB CONC 31.9 g/dl (32.0-37.0); MEAN CORPUSCULAR VOLUME 89.8 fl (82.0-101.0); MEAN PLATELET VOLUME 12.4 fl (7.4-10.4); MONOCYTE # 0.8 10^3/ul (0.3-0.9); NEUTROPHIL # 23.7 10^3/ul (1.6-7.5); PLATELET COUNT 161 10^3/UL (140-415); RED BLOOD COUNT 2.83 10^6/ul (4.20-5.40); WHITE BLOOD COUNT 25.7 10^3/ul (4.8-10.8)
[2016-10-12 05:30] LABS: CALCIUM 7.4 mg/dl (8.4-10.2); CREATININE 1.07 mg/dl (0.44-1.00)
[2016-10-12 05:36] LABS: POSITIVE DIFF @See below
[2016-10-12 05:39] LABS: POTASSIUM 2.8 mmol/L (3.5-5.1)
[2016-10-12] MEDS: PANTOPRAZOLE 40 MG INJ IV SCH ×2 (06:19→18:06)
[2016-10-12] MEDS: FENTAnyl (DRIP) 1000 mcg/100mL 100 ML IV SCH (08:01)
[2016-10-12] MEDS: POTASSIUM CHLORIDE 50 ML IVPB PRN ×3 (08:01→09:34)
[2016-10-12] MEDS: SPIRONOLACTONE 50 MG TAB NGT SCH (09:00)
[2016-10-12] MEDS: TIGECYCLINE 50 MG in SOD CHLORIDE 0.9% 100 ML IVPB SCH ×2 (09:33→21:57)
[2016-10-12] MEDS: BALSAM PERU/CASTOR OIL 60 GM TUBE TOP SCH (09:33)
[2016-10-12] MEDS: DOCUSATE SODIUM 10 MG/ML (10ML CUP) NGT SCH ×2 (09:34→21:17)
[2016-10-12] MEDS: POLYETHYLENE GLYCOL 17 GM PACKET PO SCH (09:34)
[2016-10-12 10:43] LABS: INR 1.98; PROTIME 22.7 Sec (12.2-14.2); PT RATIO 1.8
--- NOTE | 2016-10-12 12:29 | PN ---
Date/Time of Note Date/Time of Note DATE: 10/12/16 TIME: 12:26 Assessment/Plan VTE Prophylaxis VTE Prophylaxis Intervention: SCD's Assessment/Plan Chief Complaint/Hosp Course 1. Sigmoid colon abscess, likely a complication of diverticulitis - s/p sigmoid colectomy with end colostomy (Reid's procedure) and adhesiolysis on 09/21/16 - continue antibiotics. Follow-up surgery recommendation. ID is on board, plan is for further drain placement 2. Status post septic shock -Continue antibiotics and IV fluid. -Pressors as needed. 3. Ventilator dependent respiratory failure: Status post re-extubation few days ago. Status post tracheostomy 4. Left pleural effusion: Status post thoracentesis, complicated with pneumothorax status post placement of a chest tube. 4. History of ICH, s/p ventriculoperitoneal shunt placement: Neurosurg on board 5. Paroxysmal A. fib: Now in sinus rhythm status post amiodarone and dopamine. Cardiology on board, appreciate recommendation 6. Acute renal insufficiency: Resolved. Appreciate nephrology input. 7. s/p NSTEMI: Likely secondary to septic shock. Cardiology on board. 8. Volume overload state: Continue diuresis. Patient still has bilateral lower extremity pitting edema. 9. Anemia, likely a combination of iron deficiency and anemia of chronic disease: Previous notes mention iron replacement. Given patient is extubated, will start her on ferrous sulfate once she passes swallow evaluation. She did fail swallow evaluation yesterday. will consider blood transfusion 10. Hypokalemia: Replete 11. Dysphagia Status post PEG tube placement Prophylaxis: SCDs Discharge planning: Plans for CT-guided drain placement, Patient's ex- is spokesperson at this time and states that patient would have wanted aggressive interventions as long as she was not brain . Patient will also ultimately need group home placement Problems: Subjective 24 Hr Interval Summary Subjective hx not possible: pt non-verbal Exam/Review of Systems Vital Signs Vitals Vital Signs Date Time Temp Pulse Resp B/P Pulse Ox O2 Delivery O2 Flow Rate FiO2 10/12/16 10:50 72 12 93 40 10/12/16 10:45 100/56 10/12/16 10:30 Mechanical Ventilator 10/12/16 08:00 97.6 Intake and Output 10/11/16 10/11/16 10/12/16 15:00 23:00 07:00 Intake Total 556.231 ml 306.854 ml 157.091 ml Output Total 850 ml 750 ml 700 ml Balance -293.769 ml -443.146 ml -542.909 ml Exam Constitutional: non-verbal Neck: other (Trached) Respiratory: clear to auscultation Cardiovascular: regular rate and rhythm Gastrointestinal: soft, No distended Musculoskeletal: nl extremities to inspection Results Result Diagram: 10/12/16 0500 10/12/16 0500 Results 24 hrs Laboratory Tests Test 10/12/16 05:00 10/12/16 09:58 White Blood Count 25.7 #H Red Blood Count 2.83 L Hemoglobin 8.1 L Hematocrit 25.4 L Mean Corpuscular Volume 89.8 Mean Corpuscular Hemoglobin 28.6 L Mean Corpuscular Hemoglobin Concent 31.9 L Red Cell Distribution Width 22.0 H Platelet Count 161 Mean Platelet Volume 12.4 H Neutrophils % 92.0 H Lymphocytes % 3.7 L Monocytes % 3.0 Eosinophils % 0.0 Basophils % 0.3 Nucleated Red Blood Cells % 0.0 Neutrophils # 23.7 H Lymphocytes # 0.9 Monocytes # 0.8 Eosinophils # 0.0 Basophils # 0.1 Nucleated Red Blood Cells # 0.0 Sodium Level 151 H Potassium Level 2.8 *L Chloride Level 103 Carbon Dioxide Level 37 H Anion Gap 14 Blood Urea Nitrogen 40 H Creatinine 1.07 H Glucose Level 136 Calcium Level 7.4 L Prothrombin Time 22.7 H Prothrombin Time Ratio 1.8 INR International Normalized Ratio 1.98 Medications Medications Current Medications Ondansetron HCl (Zofran Inj) 4 mg Q6H PRN IV NAUSEA AND/OR VOMITING Last administered on 09/26/16 09:23; Admin Dose 4 MG; Start 09/16/16 at 00:30 Acetaminophen (Tylenol Tab) 650 mg Q6H PRN PO PAIN LEVEL 1-3 OR FEVER Last administered on 10/08/16 12:47; Admin Dose 650 MG; Start 09/16/16 at 00:30 Polyethylene Glycol 17 gm 17 gm DAILY PO Last administered on 10/12/16 09:34; Admin Dose 17 GM; Start 09/20/16 at 11:00 Norepinephrine/ Dextrose (Levophed/D5W) 500 ml @ 1.87 mls/hr TITRATE IV Last administered on 10/11/16 14:39; Admin Dose 11.25 MLS/HR; Start 09/21/16 at 09:00 Acetaminophen/ Hydrocodone Bitart ([place] (5/325)) 1 tab Q4H PRN PO PAIN LEVEL 4 -7 Last administered on 09/28/16 21:20; Admin Dose 1 TAB; Start 09/21/16 at 15: 00 Acetaminophen/ Hydrocodone Bitart ([place] (5/325)) 2 tab Q4H PRN PO PAIN LEVEL 7 -10; Start 09/21/16 at 15:00 Hydromorphone HCl (Dilaudid) 0.5 mg Q2H PRN IV PAIN Last administered on 16:41; Admin Dose 0.5 MG; Start 09/21/16 at 15:00 Hydromorphone HCl (Dilaudid) 1 mg Q2H PRN IV PAIN Last administered on 23:57; Admin Dose 1 MG; Start 09/21/16 at 15:00 Docusate Sodium (Colace) 100 mg BID PRN PO CONSTIPATION; Start 09/21/16 at 15: 00 Enoxaparin Sodium (Lovenox) 40 mg DAILY SC ; Start 09/22/16 at 09:00; Status Future Hold Docusate Sodium (Colace Liquid Cup) 100 mg BID NGT Last administered on 09:34; Admin Dose 100 MG; Start 09/22/16 at 21:00 IV Flush (NS 10 ml) 10 ml PRN PRN IV IV PROTOCOL; Start 09/25/16 at 12:00 Spironolactone 50 mg 50 mg DAILY NGT Last administered on 10/11/16 09:44; Admin Dose 50 MG; Start 09/28/16 at 09:00 Dopamine HCl/ Dextrose 250 ml @ 6.053 mls/ hr TITRATE IV Last administered on 09/30/16 04:46; Admin Dose 6.053 MLS/HR; Start 09/29/16 at 11:00 Phenylephrine HCl 40 mg/Dextrose 500 ml @ 75 mls/hr TITRATE IV ; Start at 14:00 Caspofungin/ Sodium Chloride (Cancidas/NS) 250 ml @ 250 mls/hr Q24H IVPB Last administered on 10/11/16 11:49; Admin Dose 250 MLS/HR; Start 10/01/16 at 12:00 Furosemide (Lasix) 20 mg Q6 IV Last administered on 10/12/16 06:19; Admin Dose 20 MG; Start 10/05/16 at 13:00 Lorazepam 0.5 mg 0.5 mg Q6H PRN IV AGITATION/ANXIETY Last administered on 23:21; Admin Dose 0.5 MG; Start 10/05/16 at 23:00 Propofol 100 ml @ 2.421 mls/ hr Q12H IV Last administered on 10/11/16 23:05; Admin Dose 7.263 MLS/HR; Start 10/06/16 at 14:30 Fentanyl 100 ml @ 2.5 mls/hr TITRATE IV Last administered on 10/12/16 08:01; Admin Dose 5 MLS/HR; Start 10/07/16 at 09:30 Tigecycline/ Sodium Chloride (Tygacil/NS) 100 ml @ 200 mls/hr Q12 IVPB Last administered on 10/12/16 09:33; Admin Dose 200 MLS/HR; Start 10/07/16 at 21:00 Morphine Sulfate (morphine) 2 mg Q4H PRN IV PAIN; Start 10/07/16 at 14:30 Pantoprazole (Protonix Iv) 40 mg BID@06,18 IV Last administered on 10/12/16 06: 19; Admin Dose 40 MG; Start 10/09/16 at 18:00 DALE RODARTE Oct 12, 2016 12:29
[2016-10-12] MEDS: CASPOFUNGIN 50 MG in SOD CHLORIDE 0.9% 250 ML IVPB SCH (12:37)
--- NOTE | 2016-10-12 12:47 | PN ---
Date/Time of Note Date/Time of Note DATE: 10/12/16 TIME: 12:46 Assessment/Plan Assessment/Plan Chief Complaint/Hosp Course This is a 70-year-old female admitted with a perforated colon and contained abscess underwent a drainage procedure on further colonic procedures patient is currently in the intensive care unit unable to come off the ventilator secondary to multiple medical problems Patient was extubated and had to be input intubated again has been treated for septic shock lactic acidosis peritonitis currently has an end colostomy Helio pouch and has undergone colon resection patient also has a right-sided chest tube for a pneumothorax She was reintubated again Status post tracheostomy Tracheal site clean We will continue pulmonary toilet Trach care Vent support Problems: Subjective 24 Hr Interval Summary Constitutional: improved Pain Control: mild Exam/Review of Systems Vital Signs Vitals Vital Signs Date Time Temp Pulse Resp B/P Pulse Ox O2 Delivery O2 Flow Rate FiO2 10/12/16 10:50 72 12 93 40 10/12/16 10:45 100/56 10/12/16 10:30 Mechanical Ventilator 10/12/16 08:00 97.6 Intake and Output 10/11/16 10/11/16 10/12/16 15:00 23:00 07:00 Intake Total 556.231 ml 306.854 ml 157.091 ml Output Total 850 ml 750 ml 700 ml Balance -293.769 ml -443.146 ml -542.909 ml Exam ENMT: mucosa pink and moist, nl external ears & nose, nl lips & teeth, nl nasal mucosa & septum Neck: non-tender, supple Respiratory: clear to auscultation, normal air movement Cardiovascular: nl pulses, regular rate and rhythm Gastrointestinal: nl liver, spleen, non-tender, soft Results Result Diagram: 10/12/16 0500 10/12/16 0500 GIL PINEDA MD Oct 12, 2016 12:47
--- NOTE | 2016-10-12 13:02 | PN ---
Date/Time of Note Date/Time of Note DATE: 10/12/16 TIME: 13:01 Assessment/Plan VTE Prophylaxis VTE Prophylaxis Intervention: other Assessment/Plan Assessment/Plan ASSESSMENT AND PLAN: 1. Nonoliguric acute kidney injury. Etiology secondary to acute tubular necrosis. The patient's renal function continues to fluctuate. At this point, we will continue current treatment plan, supportive care. Monitor closely on diuretic therapy. Continue to renally dose all meds. 2. Hypernatremia. Sodium levels remained stable. Continue free water flushes. 3. Hypokalemia. We will replete with potassium chloride. 4. Volume overload, anasarca secondary to congestive heart failure, third -spacing. The patient remains on therapy. Will be managed by Cardiology. Continue to monitor. 5. Metabolic alkalemia. Continue to monitor. Consider giving course Diamox. 6. Septic shock. Patient remains on broad-spectrum antibiotics, intravenous pressors, continue. 7. Anemia. Monitor H and H levels. 8. Mineral bone disorder. Continue to monitor calcium and phosphorus levels. 9. Ventilatory-dependent respiratory failure. Vent settings reviewed. ABGs reviewed. Continue to monitor. 10. Perforated viscus, status post colectomy with colostomy bag. Follow up with General Surgery. 11. Ventriculoperitoneal shunt. Subjective 24 Hr Interval Summary Free Text/Dictation renal follow up d/w Dr Sanchez SUBJECTIVE DATA: The patient remains critically, on pressor support, on ventilator support. no vomiting, new rash, hematuria, melena, fever vent settings and cxr were reviewed OBJECTIVE DATA: HEENT: Head is normocephalic. NECK: Supple. HEART: Regular rate. LUNGS: Show diminished breath sounds at the base. ABDOMEN: Soft, nontender to palpation. EXTREMITIES: Negative for clubbing, cyanosis. Positive edema, left lower extremity. DERMATOLOGIC: Clean. No rashes. MUSCULOSKELETAL: No joint effusions. NEUROLOGIC: Unchanged exam. MEDICATIONS: Reviewed. Exam/Review of Systems Vital Signs Vitals Vital Signs Date Time Temp Pulse Resp B/P Pulse Ox O2 Delivery O2 Flow Rate FiO2 10/12/16 10:50 72 12 93 40 10/12/16 10:45 100/56 10/12/16 10:30 Mechanical Ventilator 10/12/16 08:00 97.6 Intake and Output 10/11/16 10/11/16 10/12/16 15:00 23:00 07:00 Intake Total 556.231 ml 306.854 ml 157.091 ml Output Total 850 ml 750 ml 700 ml Balance -293.769 ml -443.146 ml -542.909 ml Results Result Diagram: 10/12/16 0500 10/12/16 0500 Results 24 hrs Laboratory Tests Test 10/12/16 05:00 10/12/16 09:58 White Blood Count 25.7 #H Red Blood Count 2.83 L Hemoglobin 8.1 L Hematocrit 25.4 L Mean Corpuscular Volume 89.8 Mean Corpuscular Hemoglobin 28.6 L Mean Corpuscular Hemoglobin Concent 31.9 L Red Cell Distribution Width 22.0 H Platelet Count 161 Mean Platelet Volume 12.4 H Neutrophils % 92.0 H Lymphocytes % 3.7 L Monocytes % 3.0 Eosinophils % 0.0 Basophils % 0.3 Nucleated Red Blood Cells % 0.0 Neutrophils # 23.7 H Lymphocytes # 0.9 Monocytes # 0.8 Eosinophils # 0.0 Basophils # 0.1 Nucleated Red Blood Cells # 0.0 Sodium Level 151 H Potassium Level 2.8 *L Chloride Level 103 Carbon Dioxide Level 37 H Anion Gap 14 Blood Urea Nitrogen 40 H Creatinine 1.07 H Glucose Level 136 Calcium Level 7.4 L Prothrombin Time 22.7 H Prothrombin Time Ratio 1.8 INR International Normalized Ratio 1.98 Medications Medications Current Medications Ondansetron HCl (Zofran Inj) 4 mg Q6H PRN IV NAUSEA AND/OR VOMITING Last administered on 09/26/16 09:23; Admin Dose 4 MG; Start 09/16/16 at 00:30 Acetaminophen (Tylenol Tab) 650 mg Q6H PRN PO PAIN LEVEL 1-3 OR FEVER Last administered on 10/08/16 12:47; Admin Dose 650 MG; Start 09/16/16 at 00:30 Polyethylene Glycol 17 gm 17 gm DAILY PO Last administered on 10/12/16 09:34; Admin Dose 17 GM; Start 09/20/16 at 11:00 Norepinephrine/ Dextrose (Levophed/D5W) 500 ml @ 1.87 mls/hr TITRATE IV Last administered on 10/11/16 14:39; Admin Dose 11.25 MLS/HR; Start 09/21/16 at 09:00 Acetaminophen/ Hydrocodone Bitart ([place] (5/325)) 1 tab Q4H PRN PO PAIN LEVEL 4 -7 Last administered on 09/28/16 21:20; Admin Dose 1 TAB; Start 09/21/16 at 15: 00 Acetaminophen/ Hydrocodone Bitart ([place] (5/325)) 2 tab Q4H PRN PO PAIN LEVEL 7 -10; Start 09/21/16 at 15:00 Hydromorphone HCl (Dilaudid) 0.5 mg Q2H PRN IV PAIN Last administered on 16:41; Admin Dose 0.5 MG; Start 09/21/16 at 15:00 Hydromorphone HCl (Dilaudid) 1 mg Q2H PRN IV PAIN Last administered on 23:57; Admin Dose 1 MG; Start 09/21/16 at 15:00 Docusate Sodium (Colace) 100 mg BID PRN PO CONSTIPATION; Start 09/21/16 at 15: 00 Enoxaparin Sodium (Lovenox) 40 mg DAILY SC ; Start 09/22/16 at 09:00; Status Future Hold Docusate Sodium (Colace Liquid Cup) 100 mg BID NGT Last administered on 09:34; Admin Dose 100 MG; Start 09/22/16 at 21:00 IV Flush (NS 10 ml) 10 ml PRN PRN IV IV PROTOCOL; Start 09/25/16 at 12:00 Spironolactone 50 mg 50 mg DAILY NGT Last administered on 10/11/16 09:44; Admin Dose 50 MG; Start 09/28/16 at 09:00 Dopamine HCl/ Dextrose 250 ml @ 6.053 mls/ hr TITRATE IV Last administered on 09/30/16 04:46; Admin Dose 6.053 MLS/HR; Start 09/29/16 at 11:00 Phenylephrine HCl 40 mg/Dextrose 500 ml @ 75 mls/hr TITRATE IV ; Start at 14:00 Caspofungin/ Sodium Chloride (Cancidas/NS) 250 ml @ 250 mls/hr Q24H IVPB Last administered on 10/12/16 12:37; Admin Dose 250 MLS/HR; Start 10/01/16 at 12:00 Furosemide (Lasix) 20 mg Q6 IV Last administered on 10/12/16 12:37; Admin Dose 20 MG; Start 10/05/16 at 13:00 Lorazepam 0.5 mg 0.5 mg Q6H PRN IV AGITATION/ANXIETY Last administered on 23:21; Admin Dose 0.5 MG; Start 10/05/16 at 23:00 Propofol 100 ml @ 2.421 mls/ hr Q12H IV Last administered on 10/11/16 23:05; Admin Dose 7.263 MLS/HR; Start 10/06/16 at 14:30 Fentanyl 100 ml @ 2.5 mls/hr TITRATE IV Last administered on 10/12/16 08:01; Admin Dose 5 MLS/HR; Start 10/07/16 at 09:30 Tigecycline/ Sodium Chloride (Tygacil/NS) 100 ml @ 200 mls/hr Q12 IVPB Last administered on 10/12/16 09:33; Admin Dose 200 MLS/HR; Start 10/07/16 at 21:00 Morphine Sulfate (morphine) 2 mg Q4H PRN IV PAIN; Start 10/07/16 at 14:30 Pantoprazole (Protonix Iv) 40 mg BID@06,18 IV Last administered on 10/12/16 06: 19; Admin Dose 40 MG; Start 10/09/16 at 18:00 KATI TREVIZO DO Oct 12, 2016 13:02
--- NOTE | 2016-10-12 14:27 | CONS ---
Date/Time of Note Date/Time of Note DATE: 10/12/16 TIME: 14:08 Assessment/Plan Assessment/Plan Chief Complaint/Hosp Course ID PROGRESS NOTE CURRENT ABX ==> TYGACIL #6 + Cancidas #13 TOTAL ABX DAY #25 =>Cipro start 09/17 => VANCO IV + MERREM + FLAGYL #8-> DC'd 10/07 => HOSPITAL EVENTS: * s/p 09/21/16 Sigmoid colectomy with performance of end colostomy (Reid's procedure), w/Lysis of adhesions. * s/p 09/21/16 Externalization of ENGINEERING ASSOCIATE shunt. INDICATION: Possible ENGINEERING ASSOCIATE shunt infection, ABD abscess * Extubated 10/03 * RE-intubated 09/29 * s/p Left THORA 10/01 * Extubated 10/03 * Re-Intubated 10/06 * 10/10/16 PEG 24H INTERVAL SUMMARY * RESPIRATORY CULTURE Final Organism 1 NON LACTOSE FERMENTING GNR QUANTITY 1+ Organism 2 MOLD QUANTITY SCANT GROWTH Non Lactose Fermenting GNR: Identified as Cupriavidus pauculus, Previously known as Ralstonia paucula. CDC group Nc-2: No definitive guidelines. Potentially active agents include cefotaxime, ceftazidime, ceftriaxone, and imipenem. Often resistant to penicillins, even with beta-lactamase inhibitor, and aminoglycosides. EXAM: 70 yo F ->obtunted on the Vent HEENT:Orally intubated -> Vent Neck: trachea midline. Heart: S1, S2 CXT: chest rise symmetrical breath sounds clear, diminished basis. ABD: Soft, Wound Vac + Colostomy Extremities without cyanosis, (+) edema x4 = dependent edema ID ASSESSMENT 70 yo F w/PMHx ICH and ENGINEERING ASSOCIATE shunt admit with: 1. s/p Sepsis w/shock , s/p lactic acidosis => Back on pressors 10/06/16 * (+)Leukocytosis * (+)Fevers >101.5 10/07 2. s/p Perforated sigmoid colon w/abscess: POD#-> s/p 09/21/16 Sigmoid colectomy with performance of end colostomy (Reid's procedure), w/Lysis of adhesions. * MICRO: 09/23/16 BODY FLUID CULTURE Final Organism 1 ENTEROCOCCUS SPECIES Organism 2 COAGULASE NEGATIVE STAPH Organism 3 ALPHA HEMOLYTIC STREP SPP . VIRIDANS GROUP 4. ABD WOUND => (+)VAC 5. Acute respiratory failure -> orally RE-intubated 10/06 6. CHF w/elevated BNP => (+)Anasarca w/Pleural effusions s/p CT drain 09/30 7. Bilateral PNA == Present on admission * => NOW (+)VAP => Ventilator associated PNA == superimposed on pulmonary process POA * 10/02/ ETT aspirate (+) MOLD + yeast ->DDx contaminant, submit new sample * 10/07 ETT aspirate (+) MOLD + GNR ->Non Lactose Fermenting GNR: Identified as Cupriavidus pauculus, Previously known as Ralstonia paucula. * 10/08/16 CT CHEST: Multiple bilateral cavitary nodules...similar to the prior CT :DDx septic emboli, atypical (fungal, tuberculosis) infectious process, and possible neoplasm. * CT 09/30 THORA BODY FLUID CULTURE no growth * Fungal smears (-) to date * AFB SMEAR (-) x 3 Final ACID FAST BACILLI NONE SEEN 8. Pancytopenia - sepsis 9. Coagulopathy w/thrombocytopenia 10. (+)Troponin elevation likely type II in the setting of septic shock. Echo from 09/18 showed normal EF and no significant valvular disease. 11. POD # ->S/P 09/21/16 Externalization of ENGINEERING ASSOCIATE shunt. INDICATION: Possible ENGINEERING ASSOCIATE shunt infection, hx of Hydrocephalus, ENGINEERING ASSOCIATE shunt, abdominal abscess (-)MRSA Nares screen INVASIVES: PICC (09/25/16) , ETT, NGT, VPS, FC, CXT-Tube; PEG ABX ALLERGY: PCN CURRENT ABX ==> TYGACIL #5 + Cancidas #12 TOTAL ABX DAY #24 =>Cipro start 09/17 => VANCO IV + MERREM + FLAGYL #8-> DC'd 10/07 ID RECOMMENDATIONS 1. (+)VAP => Ventilator associated PNA == superimposed on pulmonary process POA * 10/02/ ETT aspirate (+) MOLD + yeast ->DDx contaminant, submit new sample * 10/07 ETT aspirate (+) MOLD + GNR ->Non Lactose Fermenting GNR: Identified as Cupriavidus pauculus, Previously known as Ralstonia paucula. * Cupriavidus pauculus is a Gram-negative, nonfermentative, motile bacterium of the genus Cupriavidus and family Burkholderiaceae isolated from water from ultrafiltration systems and bottled mineral water. C. pauculus is associated with human infections. * REFERENCE: 1) http://www.[employer]er.com/article/D[address]48-4588(80)39745-8/pdf 2) https://www.ncbi.nlm.nih.gov/pmc/articles/QQM9515245/ 2. Change Cancidas to VFEND via GT = RENAL SAFE 3. Await micro ID of MOLD growing in respiratory culture x 2 4 Send cocci, crypto, aspergillosis, histoplasma serology -> Pending . . . . . Problems: Consultation Date/Type/Reason Admit Date/Time Sep 15, 2016 at 21:35 Initial Consult Date 09/21/16 Type of Consultation: ID Exam/Review of Systems Vital Signs Vitals Vital Signs Date Time Temp Pulse Resp B/P Pulse Ox O2 Delivery O2 Flow Rate FiO2 10/12/16 12:00 67 10/12/16 10:50 12 93 40 10/12/16 10:45 100/56 10/12/16 10:30 Mechanical Ventilator 10/12/16 08:00 97.6 Intake and Output 10/11/16 10/11/16 10/12/16 15:00 23:00 07:00 Intake Total 556.231 ml 306.854 ml 157.091 ml Output Total 850 ml 750 ml 700 ml Balance -293.769 ml -443.146 ml -542.909 ml Results Result Diagram: 10/12/16 0500 10/12/16 0500 Results 24 hrs Laboratory Tests Test 10/12/16 05:00 10/12/16 09:58 White Blood Count 25.7 #H Red Blood Count 2.83 L Hemoglobin 8.1 L Hematocrit 25.4 L Mean Corpuscular Volume 89.8 Mean Corpuscular Hemoglobin 28.6 L Mean Corpuscular Hemoglobin Concent 31.9 L Red Cell Distribution Width 22.0 H Platelet Count 161 Mean Platelet Volume 12.4 H Neutrophils % 92.0 H Lymphocytes % 3.7 L Monocytes % 3.0 Eosinophils % 0.0 Basophils % 0.3 Nucleated Red Blood Cells % 0.0 Neutrophils # 23.7 H Lymphocytes # 0.9 Monocytes # 0.8 Eosinophils # 0.0 Basophils # 0.1 Nucleated Red Blood Cells # 0.0 Sodium Level 151 H Potassium Level 2.8 *L Chloride Level 103 Carbon Dioxide Level 37 H Anion Gap 14 Blood Urea Nitrogen 40 H Creatinine 1.07 H Glucose Level 136 Calcium Level 7.4 L Prothrombin Time 22.7 H Prothrombin Time Ratio 1.8 INR International Normalized Ratio 1.98 Medications Medications Current Medications Ondansetron HCl (Zofran Inj) 4 mg Q6H PRN IV NAUSEA AND/OR VOMITING Last administered on 09/26/16 09:23; Admin Dose 4 MG; Start 09/16/16 at 00:30 Acetaminophen (Tylenol Tab) 650 mg Q6H PRN PO PAIN LEVEL 1-3 OR FEVER Last administered on 10/08/16 12:47; Admin Dose 650 MG; Start 09/16/16 at 00:30 Polyethylene Glycol 17 gm 17 gm DAILY PO Last administered on 10/12/16 09:34; Admin Dose 17 GM; Start 09/20/16 at 11:00 Norepinephrine/ Dextrose (Levophed/D5W) 500 ml @ 1.87 mls/hr TITRATE IV Last administered on 10/11/16 14:39; Admin Dose 11.25 MLS/HR; Start 09/21/16 at 09:00 Acetaminophen/ Hydrocodone Bitart ([place] (5/325)) 1 tab Q4H PRN PO PAIN LEVEL 4 -7 Last administered on 09/28/16 21:20; Admin Dose 1 TAB; Start 09/21/16 at 15: 00 Acetaminophen/ Hydrocodone Bitart ([place] (5/325)) 2 tab Q4H PRN PO PAIN LEVEL 7 -10; Start 09/21/16 at 15:00 Hydromorphone HCl (Dilaudid) 0.5 mg Q2H PRN IV PAIN Last administered on 16:41; Admin Dose 0.5 MG; Start 09/21/16 at 15:00 Hydromorphone HCl (Dilaudid) 1 mg Q2H PRN IV PAIN Last administered on 23:57; Admin Dose 1 MG; Start 09/21/16 at 15:00 Docusate Sodium (Colace) 100 mg BID PRN PO CONSTIPATION; Start 09/21/16 at 15: 00 Enoxaparin Sodium (Lovenox) 40 mg DAILY SC ; Start 09/22/16 at 09:00; Status Future Hold Docusate Sodium (Colace Liquid Cup) 100 mg BID NGT Last administered on 09:34; Admin Dose 100 MG; Start 09/22/16 at 21:00 IV Flush (NS 10 ml) 10 ml PRN PRN IV IV PROTOCOL; Start 09/25/16 at 12:00 Spironolactone 50 mg 50 mg DAILY NGT Last administered on 10/11/16 09:44; Admin Dose 50 MG; Start 09/28/16 at 09:00 Dopamine HCl/ Dextrose 250 ml @ 6.053 mls/ hr TITRATE IV Last administered on 09/30/16 04:46; Admin Dose 6.053 MLS/HR; Start 09/29/16 at 11:00 Phenylephrine HCl 40 mg/Dextrose 500 ml @ 75 mls/hr TITRATE IV ; Start at 14:00 Caspofungin/ Sodium Chloride (Cancidas/NS) 250 ml @ 250 mls/hr Q24H IVPB Last administered on 10/12/16 12:37; Admin Dose 250 MLS/HR; Start 10/01/16 at 12:00 Furosemide (Lasix) 20 mg Q6 IV Last administered on 10/12/16 12:37; Admin Dose 20 MG; Start 10/05/16 at 13:00 Lorazepam 0.5 mg 0.5 mg Q6H PRN IV AGITATION/ANXIETY Last administered on 23:21; Admin Dose 0.5 MG; Start 10/05/16 at 23:00 Propofol 100 ml @ 2.421 mls/ hr Q12H IV Last administered on 10/11/16 23:05; Admin Dose 7.263 MLS/HR; Start 10/06/16 at 14:30 Fentanyl 100 ml @ 2.5 mls/hr TITRATE IV Last administered on 10/12/16 08:01; Admin Dose 5 MLS/HR; Start 10/07/16 at 09:30 Tigecycline/ Sodium Chloride (Tygacil/NS) 100 ml @ 200 mls/hr Q12 IVPB Last administered on 10/12/16 09:33; Admin Dose 200 MLS/HR; Start 10/07/16 at 21:00 Morphine Sulfate (morphine) 2 mg Q4H PRN IV PAIN; Start 10/07/16 at 14:30 Pantoprazole (Protonix Iv) 40 mg BID@06,18 IV Last administered on 10/12/16 06: 19; Admin Dose 40 MG; Start 10/09/16 at 18:00 DONNA HERNANDEZ NP Oct 12, 2016 14:21
--- NOTE | 2016-10-12 14:33 | CONS ---
Date/Time of Note Date/Time of Note DATE: 10/12/16 TIME: 14:30 Consult Date/Type/Reason Admit Date/Time Sep 15, 2016 at 21:35 Initial Consult Date 10/09/16 Type of Consultation: Pulm/CCM Subjective Leaving for CT-guided abscess drainage; on vasopressor support. Objective Vital Signs Date Time Temp Pulse Resp B/P Pulse Ox O2 Delivery O2 Flow Rate FiO2 10/12/16 12:00 67 10/12/16 10:50 12 93 40 10/12/16 10:45 100/56 10/12/16 10:30 Mechanical Ventilator 10/12/16 08:00 97.6 Intake and Output 10/11/16 10/11/16 10/12/16 15:00 23:00 07:00 Intake Total 556.231 ml 306.854 ml 157.091 ml Output Total 850 ml 750 ml 700 ml Balance -293.769 ml -443.146 ml -542.909 ml Exam HEENT: Neck supple; no JVD; no LAD; +trach site clean CVS: RRR, S1 and S2 CHEST: Coarse BS b/; ABD: Soft, decreased BS, scaphoid EXT: No c/c/e Results/Medications Result Diagram: 10/12/16 0500 10/12/16 0500 Results 24 hrs Laboratory Tests Test 10/12/16 05:00 10/12/16 09:58 White Blood Count 25.7 #H Red Blood Count 2.83 L Hemoglobin 8.1 L Hematocrit 25.4 L Mean Corpuscular Volume 89.8 Mean Corpuscular Hemoglobin 28.6 L Mean Corpuscular Hemoglobin Concent 31.9 L Red Cell Distribution Width 22.0 H Platelet Count 161 Mean Platelet Volume 12.4 H Neutrophils % 92.0 H Lymphocytes % 3.7 L Monocytes % 3.0 Eosinophils % 0.0 Basophils % 0.3 Nucleated Red Blood Cells % 0.0 Neutrophils # 23.7 H Lymphocytes # 0.9 Monocytes # 0.8 Eosinophils # 0.0 Basophils # 0.1 Nucleated Red Blood Cells # 0.0 Sodium Level 151 H Potassium Level 2.8 *L Chloride Level 103 Carbon Dioxide Level 37 H Anion Gap 14 Blood Urea Nitrogen 40 H Creatinine 1.07 H Glucose Level 136 Calcium Level 7.4 L Prothrombin Time 22.7 H Prothrombin Time Ratio 1.8 INR International Normalized Ratio 1.98 Medications Current Medications Ondansetron HCl (Zofran Inj) 4 mg Q6H PRN IV NAUSEA AND/OR VOMITING Last administered on 09/26/16 09:23; Admin Dose 4 MG; Start 09/16/16 at 00:30 Acetaminophen (Tylenol Tab) 650 mg Q6H PRN PO PAIN LEVEL 1-3 OR FEVER Last administered on 10/08/16 12:47; Admin Dose 650 MG; Start 09/16/16 at 00:30 Polyethylene Glycol 17 gm 17 gm DAILY PO Last administered on 10/12/16 09:34; Admin Dose 17 GM; Start 09/20/16 at 11:00 Norepinephrine/ Dextrose (Levophed/D5W) 500 ml @ 1.87 mls/hr TITRATE IV Last administered on 10/11/16 14:39; Admin Dose 11.25 MLS/HR; Start 09/21/16 at 09:00 Acetaminophen/ Hydrocodone Bitart ([place] (5/325)) 1 tab Q4H PRN PO PAIN LEVEL 4 -7 Last administered on 09/28/16 21:20; Admin Dose 1 TAB; Start 09/21/16 at 15: 00 Acetaminophen/ Hydrocodone Bitart ([place] (5/325)) 2 tab Q4H PRN PO PAIN LEVEL 7 -10; Start 09/21/16 at 15:00 Hydromorphone HCl (Dilaudid) 0.5 mg Q2H PRN IV PAIN Last administered on 16:41; Admin Dose 0.5 MG; Start 09/21/16 at 15:00 Hydromorphone HCl (Dilaudid) 1 mg Q2H PRN IV PAIN Last administered on 23:57; Admin Dose 1 MG; Start 09/21/16 at 15:00 Docusate Sodium (Colace) 100 mg BID PRN PO CONSTIPATION; Start 09/21/16 at 15: 00 Enoxaparin Sodium (Lovenox) 40 mg DAILY SC ; Start 09/22/16 at 09:00; Status Future Hold Docusate Sodium (Colace Liquid Cup) 100 mg BID NGT Last administered on 09:34; Admin Dose 100 MG; Start 09/22/16 at 21:00 IV Flush (NS 10 ml) 10 ml PRN PRN IV IV PROTOCOL; Start 09/25/16 at 12:00 Spironolactone 50 mg 50 mg DAILY NGT Last administered on 10/11/16 09:44; Admin Dose 50 MG; Start 09/28/16 at 09:00 Dopamine HCl/ Dextrose 250 ml @ 6.053 mls/ hr TITRATE IV Last administered on 09/30/16 04:46; Admin Dose 6.053 MLS/HR; Start 09/29/16 at 11:00 Phenylephrine HCl 40 mg/Dextrose 500 ml @ 75 mls/hr TITRATE IV ; Start at 14:00 Caspofungin/ Sodium Chloride (Cancidas/NS) 250 ml @ 250 mls/hr Q24H IVPB Last administered on 10/12/16 12:37; Admin Dose 250 MLS/HR; Start 10/01/16 at 12:00 Furosemide (Lasix) 20 mg Q6 IV Last administered on 10/12/16 12:37; Admin Dose 20 MG; Start 10/05/16 at 13:00 Lorazepam 0.5 mg 0.5 mg Q6H PRN IV AGITATION/ANXIETY Last administered on 23:21; Admin Dose 0.5 MG; Start 10/05/16 at 23:00 Propofol 100 ml @ 2.421 mls/ hr Q12H IV Last administered on 10/11/16 23:05; Admin Dose 7.263 MLS/HR; Start 10/06/16 at 14:30 Fentanyl 100 ml @ 2.5 mls/hr TITRATE IV Last administered on 10/12/16 08:01; Admin Dose 5 MLS/HR; Start 10/07/16 at 09:30 Tigecycline/ Sodium Chloride (Tygacil/NS) 100 ml @ 200 mls/hr Q12 IVPB Last administered on 10/12/16 09:33; Admin Dose 200 MLS/HR; Start 10/07/16 at 21:00 Morphine Sulfate (morphine) 2 mg Q4H PRN IV PAIN; Start 10/07/16 at 14:30 Pantoprazole (Protonix Iv) 40 mg BID@06,18 IV Last administered on 10/12/16 06: 19; Admin Dose 40 MG; Start 10/09/16 at 18:00 Assessment/Plan Additional Assessment/Plan IMP: 1. Septic Shock 2. Intra-abdominal abscess 3. Likely endovascular infection with septic pulm emboli 4. VDRF 5. Hypernatremia 6. Hypokalemia RECS: 1. CT-guided drainage by IR 2. Abx per ID 3. Vent support 4. Prognosis poor 5. Agree with DNR status 35 min cc time HANS VELÁZQUEZ MD Oct 12, 2016 14:33
--- NOTE | 2016-10-12 14:36 | RADRPT ---
PROCEDURE: CT Brain without contrast. CLINICAL INDICATION: hydrocephalous TECHNIQUE: A CT of the brain was performed on a multidetector CT scanner utilizing axial imaging f rom the skull base through the vertex without IV contrast. Multiplanar reformatted images were made . Images were reviewed on a PACS workstation. The CTDIvol is 45 mGy and the DLP is 720 mGycm. COMPARISON: CT head October 09, 2016 FINDINGS: Again noted is a right frontal CHARTING CLERK shunt. There is mild to moderate diffuse cerebral volume loss with sulcal and ventricular dilatation. No d iscrete extra-axial fluid collection or masses seen. Ventricles are in the midline and of normal co ntour and configuration. Again noted is periventricular white matter disease in the posterior right temporal lobe unchanged. There is mild periventricular white matter disease in both cerebral hemis pheres. No associated mass effect is present. There is preservation of normal patel-white different iation. There is no intracranial hemorrhage. There is mucoperiosteal thickening in the maxillary sinuses with evidence of bilateral medial nasal antrostomies. Fluid is seen layering in the sphenoid sinus. There is partial opacification of the right mastoid air cells, middle ear and petrous portion of the temporal bone. IMPRESSION: 1. Right temporal periventricular white matter disease. atrophy. Periventricular white matter dise ase compatible with chronic small vessel ischemia. No intracranial hemorrhage or mass. 2. Right frontal ventriculostomy. 3. Sinusitis and right-sided otitis media as above. .Calixto Park MD, Date Time Electronically viewed and signed by .Calixto Park MD, on 10/12/2016 14:35 .A/
[2016-10-12] MEDS: PROPOFOL 100 ML IV SCH (15:22)
--- NOTE | 2016-10-12 20:02 | PN ---
Date/Time of Note Date/Time of Note DATE: 10/12/16 TIME: 14:00 Assessment/Plan Assessment/Plan Assessment/Plan [facility] Progress Note Date of Service: 10/12/2016 Place of service: [facility] ICU Today's Assessment & Plan: Overall stable. Abdomen continues to remain benign. Trach and PEG done. Awaiting perihepatic fluid collection drainage. Patient deteriorating and we are hopeful that after perihepatic drainage and assuming no other new issues, but the patient with reversal course and start improving. This will certainly depend on adequate nutrition and I recommended that the resume feeds through the PEG to a goal of 60 cc/h with guidance from our dietitian colleagues. No indication for acute surgical intervention. Appreciate all the physicians and providers excellent care. With above assessment, I recommended the following for today: 1. Continue aggressive medical management with intubation; CODE STATUS at this point is DO NOT RESUSCITATE but with intubation being okay and no chest compressions or electric shocks. Chemical code is okay. 2. Continue wound VAC; dressing change 3 times a week 3. Cont aggressive pulmonary toilet 4. Cont Lasix as allowed by her clinical condition 5. Labs in am 6. Please maintain multidisciplinary discussion regarding fluid intake, CODE STATUS, and other major medical decisions since this is a fragile surgical patient with recent sepsis and shock; I changed code status to full code, but without chest compression or electric shock 7. Targeted antimicrobial therapy to culture results 8. PT OT 9. Management of SUPERVISOR OF INSTRUCTION shunt per Dr. Miner (much appreciate the care) 10. Continue PEG gastric feeds with goal of 60 cc/h 11. Keep in the ICU 12. Social work and case management to please start working on disposition planning (rehab versus SNF) 13. Please note: Guille, who is the patient's decision maker currently, would like Mr. Yanez (patient's ex-) to still be involved in her care. He should still have full access to the hospital and patient according to Guille. 14. Tracheostomy management per Dr. Jones 15. Continue following GI recommendation for management of GI bleeding 16. Percutaneous drainage of perihepatic fluid collections; please coordinate between interventional radiology and hospitalist for correction of INR to the desired level Thank you again for your great care of this very pleasant patient and wonderful family. If there are any questions, please feel free to call me at [phone]. Nature of presenting problem: High severity Please note that, given the extensive number of diagnoses or management options , the extensive amount and/or complexity of data needed to be reviewed, and I risk of complications and/or morbidity or mortality, this qualifies as high complexity type of decision-making. Disclaimer: Inadvertent spelling and grammatical errors are likely due to EHR/ dictation software use and do not reflect on the quality of delivered patient care. Also, please note that the electronic time recorded on this node does not necessarily reflect the actual time of the visit. 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 S/p IR drainage 09/09/16 with removal of 20 cc pus and placement of a 10 Fr. pigtail catheter at [facility]. D/c home 09/12/16. Re-presented to [facility] 09/15/16 after being diverted from [facility] (due to internal disaster diversion) where CT was done showing adequate placement of the percutaneous drain near the sigmoid colon and decompressed sigmoid colon abscess, no obvious free air or significant spillage of stool in the abdominal cavity, and incidental finding of tail of the SUPERVISOR OF INSTRUCTION shunt in the pelvis (new from right upper quadrant position of the same drain on the CT scan at [facility]). Transfer to [facility] 09/15/2016 for further cares. S/p upsizing of drain to 12 Fr pigtail on 09/17/16 (communication with colon demonstrated; no obvious free communication to rest of peritoneal space). Patient decompensated in the early hours of the morning on 09/21/2016 and had to be transferred to the intensive care unit with need for endotracheal tube intubation, central line placement, and resuscitation for treatment of shock with lactic acidosis and evidence of peritonitis and free air on the new chest, abdomen, and pelvis CT scan. S/p a rather challenging sigmoid colectomy with performance of end colostomy (Reid's procedure), takedown of splenic flexure of the colon, lysis of adhesions (60 minutes), and abdominal lavage at [facility] on 09/21/16; diagnosis of colon ischemia (distal transverse colon and descending colon) during reentry through recent laparotomy incision with exploration of abdominal cavity, takedown of colostomy, completion left hemicolectomy with resection of distal transverse colon, lysis of adhesions, abdominal lavage, performance of an end colostomy [facility] 09/24/16. Extubated post op evening of 09/25/16. Decompensation with intubation and restart of pressors . Right-sided pneumothorax after drainage of right pleural effusion requiring chest tube placement 09/30/2016. Extubated 10/03/2016. Decompensation with reintubation 10/06/16. Comorbidities: 1. Perforated sigmoid colon (see below) 2. Status post ventriculoperitoneal shunt placement. 3. Status post prior hysterectomy and bilateral salpingo-oophorectomy through Pfannenstiel incision 4. S/p IR drainage 09/09/16 with removal of 20 cc pus and placement of a 10 Fr. pigtail catheter at [facility]. 5. Readmission to [facility] 09/15/16 with upsizing of drain to 12 Fr pigtail on (communication with colon demonstrated; no obvious free communication to rest of peritoneal space). Septic shock with multiorgan failure 09/21/2016 requiring ICU admission with intubation and pressors. 6. S/p a rather challenging sigmoid colectomy with performance of end colostomy (Reid's procedure), takedown of splenic flexure of the colon, lysis of adhesions (60 minutes), and abdominal lavage at [facility] on 09/21/16 7. Colon ischemia (distal transverse colon and descending colon) 8. S/p reentry through recent laparotomy incision with exploration of abdominal cavity, takedown of colostomy, completion left hemicolectomy with resection of distal transverse colon, lysis of adhesions, abdominal lavage, performance of an end colostomy [facility] 09/24/16 9. Stage I/II decubitus pressure ulcers (10/11/2016 [facility] ICU) Subjective: Remain intubated without major events. Lethargic and not communicative. Overall same as yesterday. Objective: Vitals: See below I's & O's: See below Exam: GENERAL: On exam, the patient was lying in bed and appeared to be breathing comfortably on the vent. No obvious acute distress. Appears emaciated. ABDOMEN: Soft, nontender and nondistended. Incision dressings are clean, dry and intact without any obvious evidence of underlying erythema, edema, discharge , or hernia. Surgical drain ss without any evidence of enteric contents. There are no peritoneal signs or guarding. Ostomy appears to be viable and productive with stool and air in the bag. SKIN: Skin appears to be pink and feels warm to touch. NEUROLOGIC: Patient is arousable with voice but for the most part noncommunicative and does not respond to simple commands. Remains intubated and sedated. Labs: See below Exam/Review of Systems Vital Signs Vitals Vital Signs Date Time Temp Pulse Resp B/P Pulse Ox O2 Delivery O2 Flow Rate FiO2 10/12/16 19:00 71 19 101/57 97 Mechanical Ventilator 10/12/16 17:11 40 10/12/16 12:00 96.6 Intake and Output 10/11/16 10/11/16 10/12/16 15:00 23:00 07:00 Intake Total 556.231 ml 306.854 ml 176.851 ml Output Total 850 ml 750 ml 740 ml Balance -293.769 ml -443.146 ml -563.149 ml Results Result Diagram: 10/12/16 0500 10/12/16 0500 ALEXSANDER DUARTE M.D. Oct 12, 2016 20:02
[2016-10-13] VITALS (91 sets, daily range): BP systolic 93–176; BP diastolic 47–90; PULSE 55–118; RESP 11–19
[2016-10-13] MEDS: FUROSEMIDE 20 MG INJ IV SCH ×4 (00:27→18:06)
[2016-10-13] MEDS: IPRATROPIUM (HFA) 12.9 GM INHALER INH SCH ×6 (01:37→21:02)
[2016-10-13] MEDS: ALBUTEROL 18 GM INHALER INH SCH ×6 (01:37→21:02)
[2016-10-13] MEDS: FENTAnyl (DRIP) 1000 mcg/100mL 100 ML IV SCH (04:43)
[2016-10-13 04:53] LABS: ABNORMAL IP MESSAGE 1; MEAN CORPUSCULAR HEMOGLOBIN 28.1 pg (29.0-33.0); MEAN CORPUSCULAR HGB CONC 31.8 g/dl (32.0-37.0); MEAN CORPUSCULAR VOLUME 88.4 fl (82.0-101.0); MEAN PLATELET VOLUME 13.7 fl (7.4-10.4); PLATELET COUNT 161 10^3/UL (140-415); RED BLOOD COUNT 2.49 10^6/ul (4.20-5.40); RED CELL DISTRIBUTION WIDTH 22.5 % (11.5-14.5); WHITE BLOOD COUNT 23.3 10^3/ul (4.8-10.8)
[2016-10-13 05:10] LABS: INR 1.33; PROTIME 16.6 Sec (12.2-14.2); PT RATIO 1.3
[2016-10-13 05:14] LABS: POSITIVE DIFF @See below
[2016-10-13 05:24] LABS: CALCIUM 7.6 mg/dl (8.4-10.2); CREATININE 0.9 mg/dl (0.44-1.00)
[2016-10-13 06:27] LABS: POTASSIUM 2.4 mmol/L (3.5-5.1)
[2016-10-13 06:30] LABS: CRYPTOCOCCAL ANTIGEN - SOURCE Serum
[2016-10-13] MEDS: PANTOPRAZOLE 40 MG INJ IV SCH ×2 (06:41→18:06)
[2016-10-13 07:01] LABS: ANISOCYTOSIS 1+ (0-0); GIANT THROMBO% (M) 5 % (0-0); HYPOCHROMASIA 1+ (0-0); MONOCYTES % (M) 6 % (0-11); PLATELET ESTIMATE NORMAL; POLYCHROMASIA 3+ (0-0)
[2016-10-13] MEDS: POTASSIUM CHLORIDE 250 ML IVPB SCH ×2 (08:11→13:09)
[2016-10-13] MEDS: SPIRONOLACTONE 50 MG TAB NGT SCH (09:31)
[2016-10-13] MEDS: TIGECYCLINE 50 MG in SOD CHLORIDE 0.9% 100 ML IVPB SCH ×2 (09:31→21:07)
[2016-10-13] MEDS: DOCUSATE SODIUM 10 MG/ML (10ML CUP) NGT SCH ×2 (09:32→21:09)
[2016-10-13] MEDS: POLYETHYLENE GLYCOL 17 GM PACKET PO SCH (09:32)
--- NOTE | 2016-10-13 10:29 | CONS ---
Date/Time of Note Date/Time of Note DATE: 10/13/16 TIME: 10:18 Assessment/Plan Assessment/Plan Chief Complaint/Hosp Course ID PROGRESS NOTE CURRENT ABX ==> TYGACIL #7 + Cancidas #14 TOTAL ABX DAY #25 =>Cipro start 09/17 => VANCO IV + MERREM + FLAGYL #8-> DC'd 10/07 24H INTERVAL SUMMARY * (+)Cryptococcal antigen serology HOSPITAL EVENTS: * s/p 09/21/16 Sigmoid colectomy with performance of end colostomy (Reid's procedure), w/Lysis of adhesions. * s/p 09/21/16 Externalization of STOCK DRIVER shunt. INDICATION: Possible STOCK DRIVER shunt infection, ABD abscess * Extubated 10/03 * RE-intubated 09/29 * s/p Left THORA 10/01 * Extubated 10/03 * Re-Intubated 10/06 * 10/10/16 PEG EXAM: 70 yo F ->obtunted on the Vent HEENT:Orally intubated -> Vent Neck: trachea midline. Heart: S1, S2 CXT: chest rise symmetrical breath sounds clear, diminished basis. ABD: Soft, Wound Vac + Colostomy Extremities without cyanosis, (+) edema x4 = dependent edema ID ASSESSMENT 70 yo F w/PMHx ICH and STOCK DRIVER shunt admit with: 1. Sepsis w/shock , s/p lactic acidosis => Back on pressors 10/06/16 * (+)Leukocytosis * (+)Fevers >101.5 10/07 2. s/p 09/21/16 Externalization of STOCK DRIVER shunt. INDICATION: Possible STOCK DRIVER shunt infection, ABD abscess * (+)Cryptococcal antigen serology 3. Intra-ABD abscess-> 10/13/16 CT guided drainage * s/p Perforated sigmoid colon w/abscess: POD#-> s/p 09/21/16 Sigmoid colectomy with performance of end colostomy (Reid's procedure), w/Lysis of adhesions. * MICRO: 09/23/16 BODY FLUID CULTURE Final Organism 1 ENTEROCOCCUS SPECIES Organism 2 COAGULASE NEGATIVE STAPH Organism 3 ALPHA HEMOLYTIC STREP SPP . VIRIDANS GROUP 4. Acute respiratory failure -> orally RE-intubated 10/06 * Likely endovascular infection with septic pulm emboli 5. CHF w/elevated BNP => (+)Anasarca w/Pleural effusions s/p CT drain 09/30 6. Bilateral PNA == Present on admission 7. NOW (+)VAP => Ventilator associated PNA == superimposed on pulmonary process POA * 10/02/ ETT aspirate (+) MOLD + yeast ->DDx contaminant, submit new sample * 10/07 ETT aspirate (+) MOLD + GNR ->Non Lactose Fermenting GNR: Identified as Cupriavidus pauculus, Previously known as Ralstonia paucula. * 10/08/16 CT CHEST: Multiple bilateral cavitary nodules...similar to the prior CT :DDx septic emboli, atypical (fungal, tuberculosis) infectious process, and possible neoplasm. * CT 09/30 THORA BODY FLUID CULTURE no growth * Fungal smears (-) to date * AFB SMEAR (-) x 3 Final ACID FAST BACILLI NONE SEEN 8. Pancytopenia - sepsis 9. Coagulopathy w/thrombocytopenia (-)MRSA Nares screen INVASIVES: PICC (09/25/16) , ETT, NGT, VPS, FC, CXT-Tube; PEG ABX ALLERGY: PCN CURRENT ABX ==> TYGACIL #7 + Cancidas #14 TOTAL ABX DAY #25 =>Cipro start 09/17 => VANCO IV + MERREM + FLAGYL #8-> DC'd 10/07 ID RECOMMENDATIONS 1. (+)Cryptococcal antigen serology => she needs Lumbar Tap 2. Change Cancidas to AMPHO B 3. Await micro ID of MOLD growing in respiratory culture x 2 4 Send cocci, aspergillosis, histoplasma serology -> Pending . . . . . Problems: Consultation Date/Type/Reason Admit Date/Time Sep 15, 2016 at 21:35 Initial Consult Date 09/21/16 Type of Consultation: ID Exam/Review of Systems Vital Signs Vitals Vital Signs Date Time Temp Pulse Resp B/P Pulse Ox O2 Delivery O2 Flow Rate FiO2 10/13/16 08:00 40 10/13/16 08:00 96 10/13/16 06:00 12 127/66 97 10/13/16 04:00 97.6 10/12/16 20:00 Mechanical Ventilator Intake and Output 10/12/16 10/12/16 10/13/16 15:00 23:00 07:00 Intake Total 770.82 ml 118.56 ml 17.32 ml Output Total 625 ml 765 ml 650 ml Balance 145.82 ml -646.44 ml -632.68 ml Results Result Diagram: 10/13/16 0415 10/13/16 0415 Results 24 hrs Laboratory Tests Test 10/13/16 04:15 White Blood Count 23.3 H Red Blood Count 2.49 L Hemoglobin 7.0 L Hematocrit 22.0 L Mean Corpuscular Volume 88.4 Mean Corpuscular Hemoglobin 28.1 L Mean Corpuscular Hemoglobin Concent 31.8 L Red Cell Distribution Width 22.5 H Platelet Count 161 Mean Platelet Volume 13.7 H Neutrophils % Segmented Neutrophils % (Manual) 89 H Band Neutrophils % (Manual) 4 Lymphocytes % Lymphocytes % (Manual) 1 L Monocytes % Monocytes % (Manual) 6 Eosinophils % Basophils % Nucleated Red Blood Cells % 0.0 Neutrophils # Neutrophils # (Manual) 20.9 H Band Neutrophils # 0.9 H Absolute Lymphocytes (Manual) 0.2 L Lymphocytes # Monocytes # Absolute Monocytes (Manual) 1.3 H Eosinophils # Basophils # Nucleated Red Blood Cells # Thrombocytosis 5 H Platelet Estimate NORMAL Polychromasia 3+ Hypochromasia 1+ Anisocytosis 1+ Macrocytosis 1+ Prothrombin Time 16.6 #H Prothrombin Time Ratio 1.3 INR International Normalized Ratio 1.33 Sodium Level 153 H Potassium Level 2.4 *L Chloride Level 103 Carbon Dioxide Level 36 H Anion Gap 16 Blood Urea Nitrogen 44 H Creatinine 0.90 Glucose Level 120 Calcium Level 7.6 L Medications Medications Current Medications Ondansetron HCl (Zofran Inj) 4 mg Q6H PRN IV NAUSEA AND/OR VOMITING Last administered on 09/26/16 09:23; Admin Dose 4 MG; Start 09/16/16 at 00:30 Acetaminophen (Tylenol Tab) 650 mg Q6H PRN PO PAIN LEVEL 1-3 OR FEVER Last administered on 10/08/16 12:47; Admin Dose 650 MG; Start 09/16/16 at 00:30 Polyethylene Glycol 17 gm 17 gm DAILY PO Last administered on 10/13/16 09:32; Admin Dose 17 GM; Start 09/20/16 at 11:00 Norepinephrine/ Dextrose (Levophed/D5W) 500 ml @ 1.87 mls/hr TITRATE IV Last administered on 10/11/16 14:39; Admin Dose 11.25 MLS/HR; Start 09/21/16 at 09:00 Acetaminophen/ Hydrocodone Bitart ([place] (5/325)) 1 tab Q4H PRN PO PAIN LEVEL 4 -7 Last administered on 09/28/16 21:20; Admin Dose 1 TAB; Start 09/21/16 at 15: 00 Acetaminophen/ Hydrocodone Bitart ([place] (5/325)) 2 tab Q4H PRN PO PAIN LEVEL 7 -10; Start 09/21/16 at 15:00 Hydromorphone HCl (Dilaudid) 0.5 mg Q2H PRN IV PAIN Last administered on 16:41; Admin Dose 0.5 MG; Start 09/21/16 at 15:00 Hydromorphone HCl (Dilaudid) 1 mg Q2H PRN IV PAIN Last administered on 23:57; Admin Dose 1 MG; Start 09/21/16 at 15:00 Docusate Sodium (Colace) 100 mg BID PRN PO CONSTIPATION; Start 09/21/16 at 15: 00 Enoxaparin Sodium (Lovenox) 40 mg DAILY SC ; Start 09/22/16 at 09:00; Status Future Hold Docusate Sodium (Colace Liquid Cup) 100 mg BID NGT Last administered on 09:32; Admin Dose 100 MG; Start 09/22/16 at 21:00 IV Flush (NS 10 ml) 10 ml PRN PRN IV IV PROTOCOL; Start 09/25/16 at 12:00 Spironolactone 50 mg 50 mg DAILY NGT Last administered on 10/13/16 09:31; Admin Dose 50 MG; Start 09/28/16 at 09:00 Dopamine HCl/ Dextrose 250 ml @ 6.053 mls/ hr TITRATE IV Last administered on 09/30/16 04:46; Admin Dose 6.053 MLS/HR; Start 09/29/16 at 11:00 Phenylephrine HCl 40 mg/Dextrose 500 ml @ 75 mls/hr TITRATE IV ; Start at 14:00 Caspofungin/ Sodium Chloride (Cancidas/NS) 250 ml @ 250 mls/hr Q24H IVPB Last administered on 10/12/16 12:37; Admin Dose 250 MLS/HR; Start 10/01/16 at 12:00 Furosemide (Lasix) 20 mg Q6 IV Last administered on 10/13/16 06:42; Admin Dose 20 MG; Start 10/05/16 at 13:00 Lorazepam 0.5 mg 0.5 mg Q6H PRN IV AGITATION/ANXIETY Last administered on 23:21; Admin Dose 0.5 MG; Start 10/05/16 at 23:00 Propofol 100 ml @ 2.421 mls/ hr Q12H IV Last administered on 10/12/16 15:22; Admin Dose 4.842 MLS/HR; Start 10/06/16 at 14:30 Fentanyl 100 ml @ 2.5 mls/hr TITRATE IV Last administered on 10/13/16 04:43; Admin Dose 5 MLS/HR; Start 10/07/16 at 09:30 Tigecycline/ Sodium Chloride (Tygacil/NS) 100 ml @ 200 mls/hr Q12 IVPB Last administered on 10/13/16 09:31; Admin Dose 200 MLS/HR; Start 10/07/16 at 21:00 Morphine Sulfate (morphine) 2 mg Q4H PRN IV PAIN; Start 10/07/16 at 14:30 Pantoprazole 40 mg 40 mg BID@06,18 IV Last administered on 10/13/16 06:41; Admin Dose 40 MG; Start 10/09/16 at 18:00 Potassium Chloride (KCl 40 MEQ/250 ML NS) 250 ml @ 62.5 mls/hr Q4H IVPB Last administered on 10/13/16 08:11; Admin Dose 62.5 MLS/HR; Start 10/13/16 at 08:00; Stop 10/13/16 at 15:59 DONNA HERNANDEZ NP Oct 13, 2016 10:28
--- NOTE | 2016-10-13 11:02 | PN ---
Date/Time of Note Date/Time of Note DATE: 10/13/16 TIME: 10:59 Assessment/Plan VTE Prophylaxis VTE Prophylaxis Intervention: SCD's Assessment/Plan Chief Complaint/Hosp Course 1. Sigmoid colon abscess, likely a complication of diverticulitis - s/p sigmoid colectomy with end colostomy (Reid's procedure) and adhesiolysis on 09/21/16 - continue antibiotics. Follow-up surgery recommendation. ID is on board, plan is for further drain placement 2. Status post septic shock -Continue antibiotics and IV fluid. -Pressors as needed. 3. Ventilator dependent respiratory failure: Status post re-extubation few days ago. Status post tracheostomy 4. Left pleural effusion: Status post thoracentesis, complicated with pneumothorax status post placement of a chest tube, removal of chest tube per pulmonology 4. History of ICH, s/p ventriculoperitoneal shunt placement: Neurosurg on board 5. Paroxysmal A. fib: Now in sinus rhythm status post amiodarone and dopamine. Cardiology on board, appreciate recommendation 6. Acute renal insufficiency: Resolved. Appreciate nephrology input. 7. s/p NSTEMI: Likely secondary to septic shock. Cardiology on board. 8. Volume overload state: Continue diuresis. Patient still has bilateral lower extremity pitting edema. 9. Anemia, likely a combination of iron deficiency and anemia of chronic disease: Previous notes mention iron replacement. Given patient is extubated, will start her on ferrous sulfate once she passes swallow evaluation. She did fail swallow evaluation yesterday. will consider blood transfusion 10. Hypokalemia: Replete 11. Dysphagia Status post PEG tube placement Prophylaxis: SCDs Discharge planning: Plans for CT-guided drain placement possibly today, Patient' s ex- is spokesperson at this time and states that patient would have wanted aggressive interventions as long as she was not brain . Patient will also ultimately need prison placement. Anticipate DC to LT[facility] this week, follow-up with surgery recs Problems: Subjective 24 Hr Interval Summary Subjective hx not possible: pt non-verbal Exam/Review of Systems Vital Signs Vitals Vital Signs Date Time Temp Pulse Resp B/P Pulse Ox O2 Delivery O2 Flow Rate FiO2 10/13/16 08:00 40 10/13/16 08:00 96 10/13/16 06:00 12 127/66 97 10/13/16 04:00 97.6 10/12/16 20:00 Mechanical Ventilator Intake and Output 10/12/16 10/12/16 10/13/16 15:00 23:00 07:00 Intake Total 770.82 ml 118.56 ml 17.32 ml Output Total 625 ml 765 ml 650 ml Balance 145.82 ml -646.44 ml -632.68 ml Exam Constitutional: non-verbal Respiratory: clear to auscultation Cardiovascular: regular rate and rhythm Gastrointestinal: soft, No distended Musculoskeletal: nl extremities to inspection Results Result Diagram: 10/13/16 0415 10/13/16 0415 Results 24 hrs Laboratory Tests Test 10/13/16 04:15 White Blood Count 23.3 H Red Blood Count 2.49 L Hemoglobin 7.0 L Hematocrit 22.0 L Mean Corpuscular Volume 88.4 Mean Corpuscular Hemoglobin 28.1 L Mean Corpuscular Hemoglobin Concent 31.8 L Red Cell Distribution Width 22.5 H Platelet Count 161 Mean Platelet Volume 13.7 H Neutrophils % Segmented Neutrophils % (Manual) 89 H Band Neutrophils % (Manual) 4 Lymphocytes % Lymphocytes % (Manual) 1 L Monocytes % Monocytes % (Manual) 6 Eosinophils % Basophils % Nucleated Red Blood Cells % 0.0 Neutrophils # Neutrophils # (Manual) 20.9 H Band Neutrophils # 0.9 H Absolute Lymphocytes (Manual) 0.2 L Lymphocytes # Monocytes # Absolute Monocytes (Manual) 1.3 H Eosinophils # Basophils # Nucleated Red Blood Cells # Thrombocytosis 5 H Platelet Estimate NORMAL Polychromasia 3+ Hypochromasia 1+ Anisocytosis 1+ Macrocytosis 1+ Prothrombin Time 16.6 #H Prothrombin Time Ratio 1.3 INR International Normalized Ratio 1.33 Sodium Level 153 H Potassium Level 2.4 *L Chloride Level 103 Carbon Dioxide Level 36 H Anion Gap 16 Blood Urea Nitrogen 44 H Creatinine 0.90 Glucose Level 120 Calcium Level 7.6 L Medications Medications Current Medications Ondansetron HCl (Zofran Inj) 4 mg Q6H PRN IV NAUSEA AND/OR VOMITING Last administered on 09/26/16 09:23; Admin Dose 4 MG; Start 09/16/16 at 00:30 Acetaminophen (Tylenol Tab) 650 mg Q6H PRN PO PAIN LEVEL 1-3 OR FEVER Last administered on 10/08/16 12:47; Admin Dose 650 MG; Start 09/16/16 at 00:30 Polyethylene Glycol 17 gm 17 gm DAILY PO Last administered on 10/13/16 09:32; Admin Dose 17 GM; Start 09/20/16 at 11:00 Norepinephrine/ Dextrose (Levophed/D5W) 500 ml @ 1.87 mls/hr TITRATE IV Last administered on 10/11/16 14:39; Admin Dose 11.25 MLS/HR; Start 09/21/16 at 09:00 Acetaminophen/ Hydrocodone Bitart ([place] (5/325)) 1 tab Q4H PRN PO PAIN LEVEL 4 -7 Last administered on 09/28/16 21:20; Admin Dose 1 TAB; Start 09/21/16 at 15: 00 Acetaminophen/ Hydrocodone Bitart ([place] (5/325)) 2 tab Q4H PRN PO PAIN LEVEL 7 -10; Start 09/21/16 at 15:00 Hydromorphone HCl (Dilaudid) 0.5 mg Q2H PRN IV PAIN Last administered on 16:41; Admin Dose 0.5 MG; Start 09/21/16 at 15:00 Hydromorphone HCl (Dilaudid) 1 mg Q2H PRN IV PAIN Last administered on 23:57; Admin Dose 1 MG; Start 09/21/16 at 15:00 Docusate Sodium (Colace) 100 mg BID PRN PO CONSTIPATION; Start 09/21/16 at 15: 00 Enoxaparin Sodium (Lovenox) 40 mg DAILY SC ; Start 09/22/16 at 09:00; Status Future Hold Docusate Sodium (Colace Liquid Cup) 100 mg BID NGT Last administered on 09:32; Admin Dose 100 MG; Start 09/22/16 at 21:00 IV Flush (NS 10 ml) 10 ml PRN PRN IV IV PROTOCOL; Start 09/25/16 at 12:00 Spironolactone 50 mg 50 mg DAILY NGT Last administered on 10/13/16 09:31; Admin Dose 50 MG; Start 09/28/16 at 09:00 Dopamine HCl/ Dextrose 250 ml @ 6.053 mls/ hr TITRATE IV Last administered on 09/30/16 04:46; Admin Dose 6.053 MLS/HR; Start 09/29/16 at 11:00 Phenylephrine HCl 40 mg/Dextrose 500 ml @ 75 mls/hr TITRATE IV ; Start at 14:00 Caspofungin/ Sodium Chloride (Cancidas/NS) 250 ml @ 250 mls/hr Q24H IVPB Last administered on 10/12/16 12:37; Admin Dose 250 MLS/HR; Start 10/01/16 at 12:00 Furosemide (Lasix) 20 mg Q6 IV Last administered on 10/13/16 06:42; Admin Dose 20 MG; Start 10/05/16 at 13:00 Lorazepam 0.5 mg 0.5 mg Q6H PRN IV AGITATION/ANXIETY Last administered on 23:21; Admin Dose 0.5 MG; Start 10/05/16 at 23:00 Propofol 100 ml @ 2.421 mls/ hr Q12H IV Last administered on 10/12/16 15:22; Admin Dose 4.842 MLS/HR; Start 10/06/16 at 14:30 Fentanyl 100 ml @ 2.5 mls/hr TITRATE IV Last administered on 10/13/16 04:43; Admin Dose 5 MLS/HR; Start 10/07/16 at 09:30 Tigecycline/ Sodium Chloride (Tygacil/NS) 100 ml @ 200 mls/hr Q12 IVPB Last administered on 10/13/16 09:31; Admin Dose 200 MLS/HR; Start 10/07/16 at 21:00 Morphine Sulfate (morphine) 2 mg Q4H PRN IV PAIN; Start 10/07/16 at 14:30 Pantoprazole 40 mg 40 mg BID@06,18 IV Last administered on 10/13/16 06:41; Admin Dose 40 MG; Start 10/09/16 at 18:00 Potassium Chloride (KCl 40 MEQ/250 ML NS) 250 ml @ 62.5 mls/hr Q4H IVPB Last administered on 10/13/16 08:11; Admin Dose 62.5 MLS/HR; Start 10/13/16 at 08:00; Stop 10/13/16 at 15:59 DALE RODARTE Oct 13, 2016 11:02
--- NOTE | 2016-10-13 12:39 | CONS ---
Date/Time of Note Date/Time of Note DATE: 10/13/16 TIME: 12:35 Assessment/Plan Assessment/Plan Chief Complaint/Hosp Course 1. Nonoliguric acute kidney injury. Etiology secondary to acute tubular necrosis. The patient's renal function continues to fluctuate. At this point, we will continue current treatment plan, supportive care. Monitor closely on diuretic therapy. Continue to renally dose all meds. 2. Hypernatremia. Sodium levels remained stable. Continue free water flushes. 3. Hypokalemia. We will replete with potassium chloride. 4. Volume overload, anasarca secondary to congestive heart failure, third -spacing. therapy. Will be managed by Cardiology. Continue to monitor. 5. Metabolic alkalemia. Continue to monitor. Consider giving course Diamox. 6. Septic shock. Patient remains on broad-spectrum antibiotics, intravenous pressors, continue. 7. Anemia. Monitor H and H levels. 8. Mineral bone disorder. Continue to monitor calcium and phosphorus levels. 9. Ventilatory-dependent respiratory failure. Vent settings reviewed. ABGs reviewed. Continue to monitor. 10. Perforated viscus, status post colectomy with colostomy bag. Follow up with General Surgery. 11. Ventriculoperitoneal shunt. Problems: Consultation Date/Type/Reason Admit Date/Time Sep 15, 2016 at 21:35 Initial Consult Date 10/09/16 Type of Consultation: nephrology 24 HR Interval Summary Free Text/Dictation pt. seen in icu confused good uop na elevated. Exam/Review of Systems Vital Signs Vitals Vital Signs Date Time Temp Pulse Resp B/P Pulse Ox O2 Delivery O2 Flow Rate FiO2 10/13/16 11:05 109 12 96 40 10/13/16 10:45 128/65 10/13/16 10:00 Mechanical Ventilator 10/13/16 08:00 97.8 Intake and Output 10/12/16 10/12/16 10/13/16 15:00 23:00 07:00 Intake Total 770.82 ml 118.56 ml 17.32 ml Output Total 625 ml 765 ml 650 ml Balance 145.82 ml -646.44 ml -632.68 ml Exam Constitutional: non-verbal Psych: confusion Eyes: EOMI, PERRL, nl conjunctiva, nl lids, nl sclera Neck: non-tender, supple Respiratory: diminished breath sounds Cardiovascular: nl pulses, regular rate and rhythm Gastrointestinal: nl liver, spleen, non-tender, soft Extremities: normal pulses Neurological: DTR's symmetric, confused Results Result Diagram: 10/13/165 10/13/16 0415 Results 24 hrs Laboratory Tests Test 10/13/16 04:15 White Blood Count 23.3 H Red Blood Count 2.49 L Hemoglobin 7.0 L Hematocrit 22.0 L Mean Corpuscular Volume 88.4 Mean Corpuscular Hemoglobin 28.1 L Mean Corpuscular Hemoglobin Concent 31.8 L Red Cell Distribution Width 22.5 H Platelet Count 161 Mean Platelet Volume 13.7 H Neutrophils % Segmented Neutrophils % (Manual) 89 H Band Neutrophils % (Manual) 4 Lymphocytes % Lymphocytes % (Manual) 1 L Monocytes % Monocytes % (Manual) 6 Eosinophils % Basophils % Nucleated Red Blood Cells % 0.0 Neutrophils # Neutrophils # (Manual) 20.9 H Band Neutrophils # 0.9 H Absolute Lymphocytes (Manual) 0.2 L Lymphocytes # Monocytes # Absolute Monocytes (Manual) 1.3 H Eosinophils # Basophils # Nucleated Red Blood Cells # Thrombocytosis 5 H Platelet Estimate NORMAL Polychromasia 3+ Hypochromasia 1+ Anisocytosis 1+ Macrocytosis 1+ Prothrombin Time 16.6 #H Prothrombin Time Ratio 1.3 INR International Normalized Ratio 1.33 Sodium Level 153 H Potassium Level 2.4 *L Chloride Level 103 Carbon Dioxide Level 36 H Anion Gap 16 Blood Urea Nitrogen 44 H Creatinine 0.90 Glucose Level 120 Calcium Level 7.6 L Medications Medications Current Medications Ondansetron HCl (Zofran Inj) 4 mg Q6H PRN IV NAUSEA AND/OR VOMITING Last administered on 09/26/16 09:23; Admin Dose 4 MG; Start 09/16/16 at 00:30 Acetaminophen (Tylenol Tab) 650 mg Q6H PRN PO PAIN LEVEL 1-3 OR FEVER Last administered on 10/08/16 12:47; Admin Dose 650 MG; Start 09/16/16 at 00:30 Polyethylene Glycol 17 gm 17 gm DAILY PO Last administered on 10/13/16 09:32; Admin Dose 17 GM; Start 09/20/16 at 11:00 Norepinephrine/ Dextrose (Levophed/D5W) 500 ml @ 1.87 mls/hr TITRATE IV Last administered on 10/11/16 14:39; Admin Dose 11.25 MLS/HR; Start 09/21/16 at 09:00 Acetaminophen/ Hydrocodone Bitart ([place] (5/325)) 1 tab Q4H PRN PO PAIN LEVEL 4 -7 Last administered on 09/28/16 21:20; Admin Dose 1 TAB; Start 09/21/16 at 15: 00 Acetaminophen/ Hydrocodone Bitart ([place] (5/325)) 2 tab Q4H PRN PO PAIN LEVEL 7 -10; Start 09/21/16 at 15:00 Hydromorphone HCl (Dilaudid) 0.5 mg Q2H PRN IV PAIN Last administered on 16:41; Admin Dose 0.5 MG; Start 09/21/16 at 15:00 Hydromorphone HCl (Dilaudid) 1 mg Q2H PRN IV PAIN Last administered on 23:57; Admin Dose 1 MG; Start 09/21/16 at 15:00 Docusate Sodium (Colace) 100 mg BID PRN PO CONSTIPATION; Start 09/21/16 at 15: 00 Enoxaparin Sodium (Lovenox) 40 mg DAILY SC ; Start 09/22/16 at 09:00; Status Future Hold Docusate Sodium (Colace Liquid Cup) 100 mg BID NGT Last administered on 09:32; Admin Dose 100 MG; Start 09/22/16 at 21:00 IV Flush (NS 10 ml) 10 ml PRN PRN IV IV PROTOCOL; Start 09/25/16 at 12:00 Spironolactone 50 mg 50 mg DAILY NGT Last administered on 10/13/16 09:31; Admin Dose 50 MG; Start 09/28/16 at 09:00 Dopamine HCl/ Dextrose 250 ml @ 6.053 mls/ hr TITRATE IV Last administered on 09/30/16 04:46; Admin Dose 6.053 MLS/HR; Start 09/29/16 at 11:00 Phenylephrine HCl 40 mg/Dextrose 500 ml @ 75 mls/hr TITRATE IV ; Start at 14:00 Caspofungin/ Sodium Chloride (Cancidas/NS) 250 ml @ 250 mls/hr Q24H IVPB Last administered on 10/12/16 12:37; Admin Dose 250 MLS/HR; Start 10/01/16 at 12:00 Furosemide (Lasix) 20 mg Q6 IV Last administered on 10/13/16 06:42; Admin Dose 20 MG; Start 10/05/16 at 13:00 Lorazepam 0.5 mg 0.5 mg Q6H PRN IV AGITATION/ANXIETY Last administered on 23:21; Admin Dose 0.5 MG; Start 10/05/16 at 23:00 Fentanyl 100 ml @ 2.5 mls/hr TITRATE IV Last administered on 10/13/16 04:43; Admin Dose 5 MLS/HR; Start 10/07/16 at 09:30 Tigecycline/ Sodium Chloride (Tygacil/NS) 100 ml @ 200 mls/hr Q12 IVPB Last administered on 10/13/16 09:31; Admin Dose 200 MLS/HR; Start 10/07/16 at 21:00 Pantoprazole 40 mg 40 mg BID@06,18 IV Last administered on 10/13/16 06:41; Admin Dose 40 MG; Start 10/09/16 at 18:00 Potassium Chloride (KCl 40 MEQ/250 ML NS) 250 ml @ 62.5 mls/hr Q4H IVPB Last administered on 10/13/16 08:11; Admin Dose 62.5 MLS/HR; Start 10/13/16 at 08:00; Stop 10/13/16 at 15:59 YOUNG SHERIDAN MD Oct 13, 2016 12:39
--- NOTE | 2016-10-13 12:42 | PN ---
Date/Time of Note Date/Time of Note DATE: 10/13/16 TIME: 12:42 Assessment/Plan Assessment/Plan Chief Complaint/Hosp Course This is a 70-year-old female admitted with a perforated colon and contained abscess underwent a drainage procedure on further colonic procedures patient is currently in the intensive care unit unable to come off the ventilator secondary to multiple medical problems Patient was extubated and had to be input intubated again has been treated for septic shock lactic acidosis peritonitis currently has an end colostomy Helio pouch and has undergone colon resection patient also has a right-sided chest tube for a pneumothorax She was reintubated again Status post tracheostomy Tracheal site clean We will continue pulmonary toilet Trach care Vent support Problems: Subjective 24 Hr Interval Summary Constitutional: improved Pain Control: mild Exam/Review of Systems Vital Signs Vitals Vital Signs Date Time Temp Pulse Resp B/P Pulse Ox O2 Delivery O2 Flow Rate FiO2 10/13/16 11:05 109 12 96 40 10/13/16 10:45 128/65 10/13/16 10:00 Mechanical Ventilator 10/13/16 08:00 97.8 Intake and Output 10/12/16 10/12/16 10/13/16 15:00 23:00 07:00 Intake Total 770.82 ml 118.56 ml 17.32 ml Output Total 625 ml 765 ml 650 ml Balance 145.82 ml -646.44 ml -632.68 ml Exam ENMT: mucosa pink and moist, nl external ears & nose, nl lips & teeth, nl nasal mucosa & septum Neck: non-tender, supple Respiratory: clear to auscultation, normal air movement Cardiovascular: nl pulses, regular rate and rhythm Results Result Diagram: 10/13/16 0415 10/13/16 0415 GIL PINEDA MD Oct 13, 2016 12:42
[2016-10-13] MEDS: CASPOFUNGIN 50 MG in SOD CHLORIDE 0.9% 250 ML IVPB SCH (13:09)
[2016-10-13] MEDS: BALSAM PERU/CASTOR OIL 60 GM TUBE TOP SCH (13:10)
[2016-10-13] MEDS: D5W + KCL 20 MEQ 1,000 ML IV SCH (13:23)
--- NOTE | 2016-10-13 14:37 | CONS ---
Date/Time of Note Date/Time of Note DATE: 10/13/16 TIME: 14:35 Consult Date/Type/Reason Admit Date/Time Sep 15, 2016 at 21:35 Initial Consult Date 10/09/16 Type of Consultation: Pulm/CCM Subjective No events. Leaving for CT-guided abscess drainage. Objective Vital Signs Date Time Temp Pulse Resp B/P Pulse Ox O2 Delivery O2 Flow Rate FiO2 10/13/16 13:50 74 12 97 40 10/13/16 10:45 128/65 10/13/16 10:00 Mechanical Ventilator 10/13/16 08:00 97.8 Intake and Output 10/12/16 10/12/16 10/13/16 15:00 23:00 07:00 Intake Total 770.82 ml 118.56 ml 17.32 ml Output Total 625 ml 765 ml 650 ml Balance 145.82 ml -646.44 ml -632.68 ml Exam HEENT: Neck supple; no JVD; no LAD; trach site clean CVS: RRR, S1 and S2 CHEST: Clear ABD: Soft, NT, + BS EXT: No c/c/ wounds; + edema Results/Medications Result Diagram: 10/13/16 0415 10/13/16 0415 Results 24 hrs Laboratory Tests Test 10/13/16 04:15 White Blood Count 23.3 H Red Blood Count 2.49 L Hemoglobin 7.0 L Hematocrit 22.0 L Mean Corpuscular Volume 88.4 Mean Corpuscular Hemoglobin 28.1 L Mean Corpuscular Hemoglobin Concent 31.8 L Red Cell Distribution Width 22.5 H Platelet Count 161 Mean Platelet Volume 13.7 H Neutrophils % Segmented Neutrophils % (Manual) 89 H Band Neutrophils % (Manual) 4 Lymphocytes % Lymphocytes % (Manual) 1 L Monocytes % Monocytes % (Manual) 6 Eosinophils % Basophils % Nucleated Red Blood Cells % 0.0 Neutrophils # Neutrophils # (Manual) 20.9 H Band Neutrophils # 0.9 H Absolute Lymphocytes (Manual) 0.2 L Lymphocytes # Monocytes # Absolute Monocytes (Manual) 1.3 H Eosinophils # Basophils # Nucleated Red Blood Cells # Thrombocytosis 5 H Platelet Estimate NORMAL Polychromasia 3+ Hypochromasia 1+ Anisocytosis 1+ Macrocytosis 1+ Prothrombin Time 16.6 #H Prothrombin Time Ratio 1.3 INR International Normalized Ratio 1.33 Sodium Level 153 H Potassium Level 2.4 *L Chloride Level 103 Carbon Dioxide Level 36 H Anion Gap 16 Blood Urea Nitrogen 44 H Creatinine 0.90 Glucose Level 120 Calcium Level 7.6 L Medications Current Medications Ondansetron HCl (Zofran Inj) 4 mg Q6H PRN IV NAUSEA AND/OR VOMITING Last administered on 09/26/16 09:23; Admin Dose 4 MG; Start 09/16/16 at 00:30 Acetaminophen (Tylenol Tab) 650 mg Q6H PRN PO PAIN LEVEL 1-3 OR FEVER Last administered on 10/08/16 12:47; Admin Dose 650 MG; Start 09/16/16 at 00:30 Polyethylene Glycol 17 gm 17 gm DAILY PO Last administered on 10/13/16 09:32; Admin Dose 17 GM; Start 09/20/16 at 11:00 Norepinephrine/ Dextrose (Levophed/D5W) 500 ml @ 1.87 mls/hr TITRATE IV Last administered on 10/11/16 14:39; Admin Dose 11.25 MLS/HR; Start 09/21/16 at 09:00 Acetaminophen/ Hydrocodone Bitart ([place] (5/325)) 1 tab Q4H PRN PO PAIN LEVEL 4 -7 Last administered on 09/28/16 21:20; Admin Dose 1 TAB; Start 09/21/16 at 15: 00 Acetaminophen/ Hydrocodone Bitart ([place] (5/325)) 2 tab Q4H PRN PO PAIN LEVEL 7 -10; Start 09/21/16 at 15:00 Hydromorphone HCl (Dilaudid) 0.5 mg Q2H PRN IV PAIN Last administered on 16:41; Admin Dose 0.5 MG; Start 09/21/16 at 15:00 Hydromorphone HCl (Dilaudid) 1 mg Q2H PRN IV PAIN Last administered on 23:57; Admin Dose 1 MG; Start 09/21/16 at 15:00 Docusate Sodium (Colace) 100 mg BID PRN PO CONSTIPATION; Start 09/21/16 at 15: 00 Enoxaparin Sodium (Lovenox) 40 mg DAILY SC ; Start 09/22/16 at 09:00; Status Future Hold Docusate Sodium (Colace Liquid Cup) 100 mg BID NGT Last administered on 09:32; Admin Dose 100 MG; Start 09/22/16 at 21:00 IV Flush (NS 10 ml) 10 ml PRN PRN IV IV PROTOCOL; Start 09/25/16 at 12:00 Spironolactone 50 mg 50 mg DAILY NGT Last administered on 10/13/16 09:31; Admin Dose 50 MG; Start 09/28/16 at 09:00 Dopamine HCl/ Dextrose 250 ml @ 6.053 mls/ hr TITRATE IV Last administered on 09/30/16 04:46; Admin Dose 6.053 MLS/HR; Start 09/29/16 at 11:00 Phenylephrine HCl 40 mg/Dextrose 500 ml @ 75 mls/hr TITRATE IV ; Start at 14:00 Caspofungin/ Sodium Chloride (Cancidas/NS) 250 ml @ 250 mls/hr Q24H IVPB Last administered on 10/13/16 13:09; Admin Dose 250 MLS/HR; Start 10/01/16 at 12:00 Furosemide (Lasix) 20 mg Q6 IV Last administered on 10/13/16 13:09; Admin Dose 20 MG; Start 10/05/16 at 13:00 Lorazepam 0.5 mg 0.5 mg Q6H PRN IV AGITATION/ANXIETY Last administered on 23:21; Admin Dose 0.5 MG; Start 10/05/16 at 23:00 Fentanyl 100 ml @ 2.5 mls/hr TITRATE IV Last administered on 10/13/16 04:43; Admin Dose 5 MLS/HR; Start 10/07/16 at 09:30 Tigecycline/ Sodium Chloride (Tygacil/NS) 100 ml @ 200 mls/hr Q12 IVPB Last administered on 10/13/16 09:31; Admin Dose 200 MLS/HR; Start 10/07/16 at 21:00 Pantoprazole 40 mg 40 mg BID@06,18 IV Last administered on 10/13/16 06:41; Admin Dose 40 MG; Start 10/09/16 at 18:00 Potassium Chloride 250 ml @ 62.5 mls/hr Q4H IVPB Last administered on 13:09; Admin Dose 62.5 MLS/HR; Start 10/13/16 at 08:00; Stop 10/13/16 at 15: 59 Potassium Chloride/Dextrose (D5W + KCl 20 Meq) 1,000 ml @ 50 mls/hr Q20H IV Last administered on 10/13/16t 13:23; Admin Dose 50 MLS/HR; Start 10/13/16 at 14: 00 Assessment/Plan Additional Assessment/Plan IMP: 1. Septic Shock 2. Intra-abdominal abscess 3. Likely endovascular infection with septic pulm emboli 4. VDRF 5. Hypernatremia 6. Hypokalemia RECS: 1. CT-guided drainage by IR today 2. Vasopressors as needed to MAP > 65 mmHg 3. Vent support 4. Replete K+ and Mg 5. Agree with DNR status 35 min cc time HANS VELÁZQUEZ MD Oct 13, 2016 14:36
[2016-10-13] MEDS ORDERED: LIDOCAINE 1% (MDV) 20 ML INJ ONE (14:53)
--- NOTE | 2016-10-13 16:00 | RADRPT ---
PROCEDURE: CT abdominal drainage CLINICAL INDICATION: Abdominal fluid collection TECHNIQUE: Consent: The procedure, risks, complications and alternatives were explained to the patient. A sign ed written informed consent was obtained. Technique/results: The patient was laid supine on the CT table. Preliminary CT scan through the ab domen and pelvis redemonstrates a right upper quadrant perihepatic fluid collection. A selected ski n site over the abdomen was marked, prepped and draped in the usual sterile fashion. Approximately 10 cc of 1% lidocaine were used to anesthetize the skin and deeper subcutaneous tissues. Under CT g uidance, a Yueh needle was advanced into the collection. Yueh sheath was exchanged over an Amplatz wire for dilators followed by an 8.5 Tamazight multipurpose drain. 10 cc of pus was removed and sent for laboratory tests. The drain was attached to an accordion drainage bag and secured in place usin g suture and a stat lock. COMPARISON: CT October 08, 2016 FINDINGS: Successful CT-guided perihepatic abscess drainage DLP = 401.7 mGy-cm CTDiVol = 7.5, 8.9, 8.9, 8.9, 8.9, 8.9 mGy. One or more of the following post reduction techniques were used: - Automated exposure control. - Adjustment of the mA and/or Kv according to patient's size. - Use of iterative reconstruction technique IMPRESSION: Successful CT-guided perihepatic abscess drainage RPTAT: QQ .Gaurav Garcia MD, MD Date Time Electronically viewed and signed by .Gaurav Garcia MD, MD on 10/13/2016 16:00 .P/
[2016-10-13 17:59] LABS: CALCIUM 7.3 mg/dl (8.4-10.2); CREATININE 0.82 mg/dl (0.44-1.00)
--- NOTE | 2016-10-13 18:08 | PN ---
Date/Time of Note Date/Time of Note DATE: 10/13/16 TIME: 18:05 Assessment/Plan Assessment/Plan Assessment/Plan [facility] Progress Note Date of Service: 10/13/2016 Place of service: [facility] ICU Today's Assessment & Plan: Overall stable but with failure to thrive. Abdomen continues to remain benign. Trach and PEG done. Drainage of perihepatic fluid collection done. Patient deteriorating and we are hopeful that assuming no other new issues, that the patient will show reversal course and start improving. This will certainly depend on adequate nutrition and I recommended that we continue the feeds through the PEG to a goal of 60 cc/h with guidance from our dietitian colleagues. No indication for acute surgical intervention. Appreciate all the physicians and providers excellent care. With above assessment, I recommended the following for today: 1. Continue aggressive medical management with intubation; CODE STATUS at this point is DO NOT RESUSCITATE but with intubation being okay and no chest compressions or electric shocks. Chemical code is okay. 2. Continue wound VAC; dressing change 3 times a week 3. Cont aggressive pulmonary toilet 4. Cont Lasix as allowed by her clinical condition 5. Labs in am 6. Please maintain multidisciplinary discussion regarding fluid intake, CODE STATUS, and other major medical decisions since this is a fragile surgical patient with recent sepsis and shock; I changed code status to full code, but without chest compression or electric shock 7. Targeted antimicrobial therapy to culture results 8. PT OT 9. Management of ROUNDING AND BACKING MACHINE OPERATOR shunt per Dr. Miner (much appreciate the care) 10. Continue PEG gastric feeds with goal of 60 cc/h 11. Keep in the ICU 12. Social work and case management to please start working on disposition planning (rehab versus SNF) 13. Please note: Guille, who is the patient's decision maker currently, would like Mr. Yanez (patient's ex-) to still be involved in her care. He should still have full access to the hospital and patient according to Guille. 14. Tracheostomy management per Dr. Jones 15. Continue following GI recommendation for management of GI bleeding 16. Continue percutaneous drainage of perihepatic fluid collections and flushed drain. Thank you again for your great care of this very pleasant patient and wonderful family. If there are any questions, please feel free to call me at [phone]. Nature of presenting problem: High severity Please note that, given the extensive number of diagnoses or management options , the extensive amount and/or complexity of data needed to be reviewed, and I risk of complications and/or morbidity or mortality, this qualifies as high complexity type of decision-making. Disclaimer: Inadvertent spelling and grammatical errors are likely due to EHR/ dictation software use and do not reflect on the quality of delivered patient care. Also, please note that the electronic time recorded on this node does not necessarily reflect the actual time of the visit. 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 S/p IR drainage 09/09/16 with removal of 20 cc pus and placement of a 10 Fr. pigtail catheter at [facility]. D/c home 09/12/16. Re-presented to [place] ED 09/15/16 after being diverted from [facility] (due to internal disaster diversion) where CT was done showing adequate placement of the percutaneous drain near the sigmoid colon and decompressed sigmoid colon abscess, no obvious free air or significant spillage of stool in the abdominal cavity, and incidental finding of tail of the ROUNDING AND BACKING MACHINE OPERATOR shunt in the pelvis (new from right upper quadrant position of the same drain on the CT scan at [facility]). Transfer to [facility] 09/15/2016 for further cares. S/p upsizing of drain to 12 Fr pigtail on 09/17/16 (communication with colon demonstrated; no obvious free communication to rest of peritoneal space). Patient decompensated in the early hours of the morning on 09/21/2016 and had to be transferred to the intensive care unit with need for endotracheal tube intubation, central line placement, and resuscitation for treatment of shock with lactic acidosis and evidence of peritonitis and free air on the new chest, abdomen, and pelvis CT scan. S/p a rather challenging sigmoid colectomy with performance of end colostomy (Reid's procedure), takedown of splenic flexure of the colon, lysis of adhesions (60 minutes), and abdominal lavage at [facility] on 09/21/16; diagnosis of colon ischemia (distal transverse colon and descending colon) during reentry through recent laparotomy incision with exploration of abdominal cavity, takedown of colostomy, completion left hemicolectomy with resection of distal transverse colon, lysis of adhesions, abdominal lavage, performance of an end colostomy [facility] 09/24/16. Extubated post op evening of 09/25/16. Decompensation with intubation and restart of pressors . Right-sided pneumothorax after drainage of right pleural effusion requiring chest tube placement 09/30/2016. Extubated 10/03/2016. Decompensation with reintubation 10/06/16. Tracheostomy and PEG placed. Perihepatic fluid collections drained 10/13/2016. Comorbidities: 1. Perforated sigmoid colon (see below) 2. Status post ventriculoperitoneal shunt placement. 3. Status post prior hysterectomy and bilateral salpingo-oophorectomy through Pfannenstiel incision 4. S/p IR drainage 09/09/16 with removal of 20 cc pus and placement of a 10 Fr. pigtail catheter at [facility]. 5. Readmission to [facility] 09/15/16 with upsizing of drain to 12 Fr pigtail on (communication with colon demonstrated; no obvious free communication to rest of peritoneal space). Septic shock with multiorgan failure 09/21/2016 requiring ICU admission with intubation and pressors. 6. S/p a rather challenging sigmoid colectomy with performance of end colostomy (Reid's procedure), takedown of splenic flexure of the colon, lysis of adhesions (60 minutes), and abdominal lavage at [facility] on 09/21/16 7. Colon ischemia (distal transverse colon and descending colon) 8. S/p reentry through recent laparotomy incision with exploration of abdominal cavity, takedown of colostomy, completion left hemicolectomy with resection of distal transverse colon, lysis of adhesions, abdominal lavage, performance of an end colostomy [facility] 09/24/16 9. Stage I/II decubitus pressure ulcers (10/11/2016 [facility] ICU) Subjective: Remain intubated without major events. Lethargic and not communicative. Overall same as yesterday. Objective: Vitals: See below I's & O's: See below Exam: GENERAL: On exam, the patient was lying in bed and appeared to be breathing comfortably on the vent. No obvious acute distress. Appears emaciated. ABDOMEN: Soft, nontender and nondistended. Incision dressings are clean, dry and intact without any obvious evidence of underlying erythema, edema, discharge , or hernia. Surgical drain ss without any evidence of enteric contents. There are no peritoneal signs or guarding. Ostomy appears to be viable and productive with stool and air in the bag. Perihepatic drain showing pus. SKIN: Skin appears to be pink and feels warm to touch. NEUROLOGIC: Patient is arousable with voice but for the most part noncommunicative and does not respond to simple commands. Remains on the ventilator with tracheostomy tube and sedated. Labs: See below Exam/Review of Systems Vital Signs Vitals Vital Signs Date Time Temp Pulse Resp B/P Pulse Ox O2 Delivery O2 Flow Rate FiO2 10/13/16 17:22 72 12 98 40 10/13/16 16:29 100 10/13/16 10:45 128/65 10/13/16 10:00 Mechanical Ventilator 10/13/16 08:00 97.8 Intake and Output 10/12/16 10/12/16 10/13/16 15:00 23:00 07:00 Intake Total 770.82 ml 118.56 ml 17.32 ml Output Total 625 ml 765 ml 650 ml Balance 145.82 ml -646.44 ml -632.68 ml Results Result Diagram: 10/13/16 0415 10/13/16 1650 ALEXSANDER DUARTE M.D. Oct 13, 2016 18:08
[2016-10-13] MEDS: POTASSIUM CHLORIDE 50 ML IVPB PRN ×3 (18:23→20:08)
[2016-10-14] VITALS (104 sets, daily range): BP systolic 77–154; BP diastolic 49–115; PULSE 72–122; RESP 7–26
[2016-10-14] MEDS: FUROSEMIDE 20 MG INJ IV SCH ×5 (00:17→23:37)
[2016-10-14] MEDS: ALBUTEROL 18 GM INHALER INH SCH ×6 (01:06→21:21)
[2016-10-14] MEDS: IPRATROPIUM (HFA) 12.9 GM INHALER INH SCH ×6 (01:06→21:21)
[2016-10-14 05:16] LABS: ABNORMAL IP MESSAGE 1; BASOPHILS % 0.1 % (0.0-2.0); EOSINOPHILS % 0.1 % (0.0-7.0); HEMATOCRIT 23.4 % (37.0-47.0); HEMOGLOBIN 7.4 g/dl (12.0-16.0); LYMPHOCYTES # 0.8 10^3/ul (0.8-2.9); LYMPHOCYTES % 5.5 % (15.0-51.0); MEAN CORPUSCULAR HEMOGLOBIN 28.4 pg (29.0-33.0); MEAN CORPUSCULAR HGB CONC 31.6 g/dl (32.0-37.0); MEAN CORPUSCULAR VOLUME 89.7 fl (82.0-101.0); MEAN PLATELET VOLUME 13.2 fl (7.4-10.4); MONOCYTE # 0.6 10^3/ul (0.3-0.9); MONOCYTES % 3.8 % (0.0-11.0); NEUTROPHIL # 13.3 10^3/ul (1.6-7.5); NEUTROPHILS % 89.7 % (39.0-77.0); PLATELET COUNT 142 10^3/UL (140-415); RED BLOOD COUNT 2.61 10^6/ul (4.20-5.40); WHITE BLOOD COUNT 14.9 10^3/ul (4.8-10.8)
[2016-10-14 05:25] LABS: POSITIVE DIFF @See below
[2016-10-14] MEDS: PANTOPRAZOLE 40 MG INJ IV SCH ×2 (05:46→18:09)
[2016-10-14 06:11] LABS: CALCIUM 7.2 mg/dl (8.4-10.2); CREATININE 0.76 mg/dl (0.44-1.00)
[2016-10-14] MEDS: FENTAnyl (DRIP) 1000 mcg/100mL 100 ML IV SCH (06:11)
[2016-10-14 06:25] LABS: POTASSIUM 2.7 mmol/L (3.5-5.1)
[2016-10-14] MEDS: POTASSIUM CHLORIDE 50 ML IVPB PRN ×3 (06:36→08:55)
[2016-10-14] MEDS ORDERED: POTASSIUM CHLORIDE 20 MEQ POWDER FOR ORAL SOLN PEG ONE (08:00)
--- NOTE | 2016-10-14 08:13 | PN ---
DATE: SUBJECTIVE DATA: The patient remains critically ill, on full ventilatory support. No other events noted. No hemoptysis, hematemesis, hematochezia. OBJECTIVE DATA: VITAL SIGNS: Blood pressure 120/67, respirations 12, pulse 80, temperature 98.6. Intake and output, the patient is 2 L and 2.5 L out. HEENT: Head is normocephalic. NECK: Supple. HEART: Regular rate. LUNGS: Diminished breath sounds at base. ABDOMEN: Soft, nontender to palpation. Positive ostomy. EXTREMITIES: No clubbing, cyanosis. Positive edema. DERMATOLOGIC: No rashes. MUSCULOSKELETAL: No joint effusion. NEUROLOGIC: No change in exam. The patient's medications have been reviewed. LABORATORY AND DIAGNOSTIC DATA: Shows a sodium 153, potassium 3.7, chloride 105. BUN 39, creatinine 0.6. White count 14.9, hemoglobin 7.4, hematocrit 23.4, and platelet count is 142. The patient's cultures have been reviewed. X-ray has been reviewed. ASSESSMENT AND PLAN: 1. Nonoliguric acute kidney injury. Etiology secondary to acute tubular necrosis. The patient's renal function is fluctuating but overall stable. Will continue to monitor closely. Continue supportive care. Renally dose medications for nephrotoxins. 2. Hypernatremia. The patient has a free water deficit of approximately 4 L. Will increase free water flushes to 400 mL q.4 hours and monitor serum sodium levels closely. 3. Hypokalemia secondary to diuretic therapy. Continue potassium chloride supplementation. Continue Aldactone. 4. Volume overload, anasarca. The patient remains on diuretic therapy. Continue to monitor. 5. Metabolic alkalemia, improving. 6. Septic shock. The patient remains on broad-spectrum antibiotics and pressor support, coming off pressors slowly, continue. 7. Anemia. Monitor hemoglobin and hematocrit levels. 8. Mineral bone disorder. Continue to monitor calcium and phosphorus levels. 9. Ventilator-dependent respiratory failure. Ventilator settings have been reviewed. Arterial blood gases reviewed. Continue to monitor. The patient is status post tracheostomy. 10. Perforated viscus status post colectomy and colostomy bag. Continue to monitor. Follow up with Surgery. 11. History of ventriculoperitoneal shunt. Dictated By: Agustin Sanchez DO /rhina/thad /Document#: [id number]
[2016-10-14] MEDS: D5W + KCL 20 MEQ 1,000 ML IV SCH (08:41)
--- NOTE | 2016-10-14 09:13 | CONS ---
Date/Time of Note Date/Time of Note DATE: 10/14/16 TIME: 09:11 Assessment/Plan Assessment/Plan Additional Assessment/Plan Postdated note for a visit October 13, 2016. There is no major significant clinical change and patient's overall medical condition. I spoken to Dr. Maldonado that note was previously dictated patient to be scheduled for PEG and trach and continue with aggressive care. Patient has a favorable prognosis for recovery. I agree with level of care and continued aggressive interventions. Consultation Date/Type/Reason Admit Date/Time Sep 15, 2016 at 21:35 Initial Consult Date 09/21/16 Type of Consultation: Palliative care Exam/Review of Systems Vital Signs Vitals Vital Signs Date Time Temp Pulse Resp B/P Pulse Ox O2 Delivery O2 Flow Rate FiO2 10/14/16 07:00 81 12 115/60 98 10/14/16 05:05 40 10/14/16 04:00 97.8 10/13/16 20:00 Mechanical Ventilator 10/13/16 16:29 100 Intake and Output 10/13/16 10/13/16 10/14/16 15:00 23:00 07:00 Intake Total 1085.40 ml 735.54 ml 269 ml Output Total 1250 ml 1025 ml 100 ml Balance -164.60 ml -289.46 ml 169 ml Exam Neck: No bruits, No jvd, No masses, No non-tender, No nuchal rigidity, No other , No supple, No thyromegaly Respiratory: No clear to auscultation, No congested cough, No crackles/rales, No diminished breath sounds, No intercostal retraction, No labored breathing, No normal air movement, No other, No respirations, No tactile fremitus, No wheezing Cardiovascular: No S3, No S4, No bruits, No diastolic murmur, No edema, No gallop, No irregular rhythm, No jugular venous distention (JVD), No murmurs/ extra sounds, No nl pulses, No other, No regular rate and rhythm, No rub, No systolic murmur Gastrointestinal: No ascites, No bowel sounds, No distended, No firm, No hepatomegaly, No mass, No nl liver, spleen, No non-tender, No other, No rebound or guarding, No soft, No splenomegaly, No surgical scars, No tender Results Result Diagram: 10/14/16 0415 10/14/16 0415 Results 24 hrs Laboratory Tests Test 10/13/16 16:50 10/14/16 04:15 10/14/16 08:20 10/14/16 08:35 Sodium Level 154 H 153 H Potassium Level 3.0 L 2.7 *L Chloride Level 104 104 Carbon Dioxide Level 38 H 37 H Anion Gap 15 15 Blood Urea Nitrogen 42 H 39 H Creatinine 0.82 0.76 Glucose Level 132 194 Calcium Level 7.3 L 7.2 L White Blood Count 14.9 #H Red Blood Count 2.61 L Hemoglobin 7.4 L Hematocrit 23.4 L Mean Corpuscular Volume 89.7 Mean Corpuscular Hemoglobin 28.4 L Mean Corpuscular Hemoglobin Concent 31.6 L Red Cell Distribution Width 22.0 H Platelet Count 142 Mean Platelet Volume 13.2 H Neutrophils % 89.7 H Lymphocytes % 5.5 L Monocytes % 3.8 Eosinophils % 0.1 Basophils % 0.1 Nucleated Red Blood Cells % 0.0 Neutrophils # 13.3 H Lymphocytes # 0.8 Monocytes # 0.6 Eosinophils # 0.0 Basophils # 0.0 Nucleated Red Blood Cells # 0.0 Lab Scanned Report BLOOD TRANSFUSION REFERENCE LAB Test 10/14/16 08:36 Lab Scanned Report REFERENCE LAB Medications Medications Current Medications Ondansetron HCl (Zofran Inj) 4 mg Q6H PRN IV NAUSEA AND/OR VOMITING Last administered on 09/26/16 09:23; Admin Dose 4 MG; Start 09/16/16 at 00:30 Acetaminophen (Tylenol Tab) 650 mg Q6H PRN PO PAIN LEVEL 1-3 OR FEVER Last administered on 10/08/16 12:47; Admin Dose 650 MG; Start 09/16/16 at 00:30 Polyethylene Glycol 17 gm 17 gm DAILY PO Last administered on 10/13/16 09:32; Admin Dose 17 GM; Start 09/20/16 at 11:00 Norepinephrine/ Dextrose (Levophed/D5W) 500 ml @ 1.87 mls/hr TITRATE IV Last administered on 10/14/16 06:28; Admin Dose 3.75 MLS/HR; Start 09/21/16 at 09:00 Acetaminophen/ Hydrocodone Bitart ([place] (5/325)) 1 tab Q4H PRN PO PAIN LEVEL 4 -7 Last administered on 09/28/16 21:20; Admin Dose 1 TAB; Start 09/21/16 at 15: 00 Acetaminophen/ Hydrocodone Bitart ([place] (5/325)) 2 tab Q4H PRN PO PAIN LEVEL 7 -10; Start 09/21/16 at 15:00 Hydromorphone HCl (Dilaudid) 0.5 mg Q2H PRN IV PAIN Last administered on 16:41; Admin Dose 0.5 MG; Start 09/21/16 at 15:00 Hydromorphone HCl (Dilaudid) 1 mg Q2H PRN IV PAIN Last administered on 23:57; Admin Dose 1 MG; Start 09/21/16 at 15:00 Docusate Sodium (Colace) 100 mg BID PRN PO CONSTIPATION; Start 09/21/16 at 15: 00 Enoxaparin Sodium (Lovenox) 40 mg DAILY SC ; Start 09/22/16 at 09:00; Status Future Hold Docusate Sodium (Colace Liquid Cup) 100 mg BID NGT Last administered on 21:09; Admin Dose 100 MG; Start 09/22/16 at 21:00 IV Flush (NS 10 ml) 10 ml PRN PRN IV IV PROTOCOL; Start 09/25/16 at 12:00 Spironolactone 50 mg 50 mg DAILY NGT Last administered on 10/13/16 09:31; Admin Dose 50 MG; Start 09/28/16 at 09:00 Dopamine HCl/ Dextrose 250 ml @ 6.053 mls/ hr TITRATE IV Last administered on 09/30/16 04:46; Admin Dose 6.053 MLS/HR; Start 09/29/16 at 11:00 Phenylephrine HCl 40 mg/Dextrose 500 ml @ 75 mls/hr TITRATE IV ; Start at 14:00 Caspofungin/ Sodium Chloride (Cancidas/NS) 250 ml @ 250 mls/hr Q24H IVPB Last administered on 10/13/16 13:09; Admin Dose 250 MLS/HR; Start 10/01/16 at 12:00 Furosemide (Lasix) 20 mg Q6 IV Last administered on 10/14/16 05:46; Admin Dose 20 MG; Start 10/05/16 at 13:00 Lorazepam 0.5 mg 0.5 mg Q6H PRN IV AGITATION/ANXIETY Last administered on 23:21; Admin Dose 0.5 MG; Start 10/05/16 at 23:00 Fentanyl 100 ml @ 2.5 mls/hr TITRATE IV Last administered on 10/14/16 06:11; Admin Dose 3 MLS/HR; Start 10/07/16 at 09:30 Tigecycline/ Sodium Chloride (Tygacil/NS) 100 ml @ 200 mls/hr Q12 IVPB Last administered on 10/13/16 21:07; Admin Dose 200 MLS/HR; Start 10/07/16 at 21:00 Pantoprazole 40 mg 40 mg BID@06,18 IV Last administered on 10/14/16 05:46; Admin Dose 40 MG; Start 10/09/16 at 18:00 Potassium Chloride/Dextrose (D5W + KCl 20 Meq) 1,000 ml @ 50 mls/hr Q20H IV Last administered on 10/14/16 08:41; Admin Dose 50 MLS/HR; Start 10/13/16 at 14: 00 YANETH VIDAL Oct 14, 2016 09:13
--- NOTE | 2016-10-14 09:15 | CONS ---
Date/Time of Note Date/Time of Note DATE: 10/14/16 TIME: 09:13 Assessment/Plan Assessment/Plan Additional Assessment/Plan Postdated note for October 13 visit. I spoken the patient's sales representative electric service who is patient's ex-. He visits her on a daily basis plan is as outlined in my note October 13, 2016. Respiratory failure Sepsis syndrome Renal insufficient Fluid and electrolyte abnormality Malnutrition Consultation Date/Type/Reason Admit Date/Time Sep 15, 2016 at 21:35 Initial Consult Date 09/21/16 Type of Consultation: Palliative care Exam/Review of Systems Vital Signs Vitals Vital Signs Date Time Temp Pulse Resp B/P Pulse Ox O2 Delivery O2 Flow Rate FiO2 10/14/16 07:00 81 12 115/60 98 10/14/16 05:05 40 10/14/16 04:00 97.8 10/13/16 20:00 Mechanical Ventilator 10/13/16 16:29 100 Intake and Output 10/13/16 10/13/16 10/14/16 15:00 23:00 07:00 Intake Total 1085.40 ml 735.54 ml 269 ml Output Total 1250 ml 1025 ml 100 ml Balance -164.60 ml -289.46 ml 169 ml Exam Respiratory: No clear to auscultation, No congested cough, No crackles/rales, No diminished breath sounds, No intercostal retraction, No labored breathing, No normal air movement, No other, No respirations, No tactile fremitus, No wheezing Cardiovascular: No S3, No S4, No bruits, No diastolic murmur, No edema, No gallop, No irregular rhythm, No jugular venous distention (JVD), No murmurs/ extra sounds, No nl pulses, No other, No regular rate and rhythm, No rub, No systolic murmur Results Result Diagram: 10/14/16 0415 10/14/16 0415 Results 24 hrs Laboratory Tests Test 10/13/16 16:50 10/14/16 04:15 10/14/16 08:20 10/14/16 08:35 Sodium Level 154 H 153 H Potassium Level 3.0 L 2.7 *L Chloride Level 104 104 Carbon Dioxide Level 38 H 37 H Anion Gap 15 15 Blood Urea Nitrogen 42 H 39 H Creatinine 0.82 0.76 Glucose Level 132 194 Calcium Level 7.3 L 7.2 L White Blood Count 14.9 #H Red Blood Count 2.61 L Hemoglobin 7.4 L Hematocrit 23.4 L Mean Corpuscular Volume 89.7 Mean Corpuscular Hemoglobin 28.4 L Mean Corpuscular Hemoglobin Concent 31.6 L Red Cell Distribution Width 22.0 H Platelet Count 142 Mean Platelet Volume 13.2 H Neutrophils % 89.7 H Lymphocytes % 5.5 L Monocytes % 3.8 Eosinophils % 0.1 Basophils % 0.1 Nucleated Red Blood Cells % 0.0 Neutrophils # 13.3 H Lymphocytes # 0.8 Monocytes # 0.6 Eosinophils # 0.0 Basophils # 0.0 Nucleated Red Blood Cells # 0.0 Lab Scanned Report BLOOD TRANSFUSION REFERENCE LAB Test 10/14/16 08:36 Lab Scanned Report REFERENCE LAB Medications Medications Current Medications Ondansetron HCl (Zofran Inj) 4 mg Q6H PRN IV NAUSEA AND/OR VOMITING Last administered on 09/26/16 09:23; Admin Dose 4 MG; Start 09/16/16 at 00:30 Acetaminophen (Tylenol Tab) 650 mg Q6H PRN PO PAIN LEVEL 1-3 OR FEVER Last administered on 10/08/16 12:47; Admin Dose 650 MG; Start 09/16/16 at 00:30 Polyethylene Glycol 17 gm 17 gm DAILY PO Last administered on 10/13/16 09:32; Admin Dose 17 GM; Start 09/20/16 at 11:00 Norepinephrine/ Dextrose (Levophed/D5W) 500 ml @ 1.87 mls/hr TITRATE IV Last administered on 10/14/16 06:28; Admin Dose 3.75 MLS/HR; Start 09/21/16 at 09:00 Acetaminophen/ Hydrocodone Bitart ([place] (5/325)) 1 tab Q4H PRN PO PAIN LEVEL 4 -7 Last administered on 09/28/16 21:20; Admin Dose 1 TAB; Start 09/21/16 at 15: 00 Acetaminophen/ Hydrocodone Bitart ([place] (5/325)) 2 tab Q4H PRN PO PAIN LEVEL 7 -10; Start 09/21/16 at 15:00 Hydromorphone HCl (Dilaudid) 0.5 mg Q2H PRN IV PAIN Last administered on 16:41; Admin Dose 0.5 MG; Start 09/21/16 at 15:00 Hydromorphone HCl (Dilaudid) 1 mg Q2H PRN IV PAIN Last administered on 23:57; Admin Dose 1 MG; Start 09/21/16 at 15:00 Docusate Sodium (Colace) 100 mg BID PRN PO CONSTIPATION; Start 09/21/16 at 15: 00 Enoxaparin Sodium (Lovenox) 40 mg DAILY SC ; Start 09/22/16 at 09:00; Status Future Hold Docusate Sodium (Colace Liquid Cup) 100 mg BID NGT Last administered on 21:09; Admin Dose 100 MG; Start 09/22/16 at 21:00 IV Flush (NS 10 ml) 10 ml PRN PRN IV IV PROTOCOL; Start 09/25/16 at 12:00 Spironolactone 50 mg 50 mg DAILY NGT Last administered on 10/13/16 09:31; Admin Dose 50 MG; Start 09/28/16 at 09:00 Dopamine HCl/ Dextrose 250 ml @ 6.053 mls/ hr TITRATE IV Last administered on 09/30/16 04:46; Admin Dose 6.053 MLS/HR; Start 09/29/16 at 11:00 Phenylephrine HCl 40 mg/Dextrose 500 ml @ 75 mls/hr TITRATE IV ; Start at 14:00 Caspofungin/ Sodium Chloride (Cancidas/NS) 250 ml @ 250 mls/hr Q24H IVPB Last administered on 10/13/16 13:09; Admin Dose 250 MLS/HR; Start 10/01/16 at 12:00 Furosemide (Lasix) 20 mg Q6 IV Last administered on 10/14/16 05:46; Admin Dose 20 MG; Start 10/05/16 at 13:00 Lorazepam 0.5 mg 0.5 mg Q6H PRN IV AGITATION/ANXIETY Last administered on 23:21; Admin Dose 0.5 MG; Start 10/05/16 at 23:00 Fentanyl 100 ml @ 2.5 mls/hr TITRATE IV Last administered on 10/14/16 06:11; Admin Dose 3 MLS/HR; Start 10/07/16 at 09:30 Tigecycline/ Sodium Chloride (Tygacil/NS) 100 ml @ 200 mls/hr Q12 IVPB Last administered on 10/13/16 21:07; Admin Dose 200 MLS/HR; Start 10/07/16 at 21:00 Pantoprazole 40 mg 40 mg BID@06,18 IV Last administered on 10/14/16 05:46; Admin Dose 40 MG; Start 10/09/16 at 18:00 Potassium Chloride/Dextrose (D5W + KCl 20 Meq) 1,000 ml @ 50 mls/hr Q20H IV Last administered on 10/14/16 08:41; Admin Dose 50 MLS/HR; Start 10/13/16 at 14: 00 YANETH VIDAL Oct 14, 2016 09:15
[2016-10-14] MEDS: TIGECYCLINE 50 MG in SOD CHLORIDE 0.9% 100 ML IVPB SCH ×2 (10:03→21:01)
[2016-10-14] MEDS: DOCUSATE SODIUM 10 MG/ML (10ML CUP) NGT SCH ×2 (10:03→20:59)
[2016-10-14] MEDS: POLYETHYLENE GLYCOL 17 GM PACKET PO SCH (10:03)
[2016-10-14] MEDS: SPIRONOLACTONE 50 MG TAB NGT SCH (10:04)
[2016-10-14] MEDS: BALSAM PERU/CASTOR OIL 60 GM TUBE TOP SCH (10:05)
--- NOTE | 2016-10-14 12:15 | CONS ---
Date/Time of Note Date/Time of Note DATE: 10/14/16 TIME: 12:13 Consult Date/Type/Reason Admit Date/Time Sep 15, 2016 at 21:35 Initial Consult Date 09/21/16 Type of Consultation: Pulmonary Subjective Awake alert oriented on mechanical ventilation via tracheostomy continues low- dose Levophed. Decreased WBC following pigtail catheter placement. Objective Vital Signs Date Time Temp Pulse Resp B/P Pulse Ox O2 Delivery O2 Flow Rate FiO2 10/14/16 10:30 93 20 125/68 100 10/14/16 10:00 Mechanical Ventilator 10/14/16 08:00 40 10/14/16 08:00 97.2 10/13/16 16:29 100 Intake and Output 10/13/16 10/13/16 10/14/16 14:59 22:59 06:59 Intake Total 1048.04 ml 764.22 ml 305 ml Output Total 1250 ml 1100 ml 200 ml Balance -201.96 ml -335.78 ml 105 ml Exam PHYSICAL EXAMINATION GENERAL: Chronically ill-appearing lady on mechanical ventilation via tracheostomy VITAL SIGNS: see below. HEENT: Pupils equal, round, and reactive to light. Tracheostomy site clean and intact. CARDIAC: S1, S2, 1/6 systolic ejection murmur CHEST: Diminished air entry bilaterally. ABDOMEN: Mildly distended. Bowel sounds present no guarding or rebound EXTREMITIES: No cyanosis, clubbing edema +1 NEUROLOGIC: Generalized weakness Results/Medications Result Diagram: 10/14/16 0415 10/14/16 0415 Results 24 hrs Chest x-ray Significant bilateral effusions right greater than Laboratory Tests Test 10/13/16 16:50 10/14/16 04:15 10/14/16 08:20 10/14/16 08:35 Sodium Level 154 H 153 H Potassium Level 3.0 L 2.7 *L Chloride Level 104 104 Carbon Dioxide Level 38 H 37 H Anion Gap 15 15 Blood Urea Nitrogen 42 H 39 H Creatinine 0.82 0.76 Glucose Level 132 194 Calcium Level 7.3 L 7.2 L White Blood Count 14.9 #H Red Blood Count 2.61 L Hemoglobin 7.4 L Hematocrit 23.4 L Mean Corpuscular Volume 89.7 Mean Corpuscular Hemoglobin 28.4 L Mean Corpuscular Hemoglobin Concent 31.6 L Red Cell Distribution Width 22.0 H Platelet Count 142 Mean Platelet Volume 13.2 H Neutrophils % 89.7 H Lymphocytes % 5.5 L Monocytes % 3.8 Eosinophils % 0.1 Basophils % 0.1 Nucleated Red Blood Cells % 0.0 Neutrophils # 13.3 H Lymphocytes # 0.8 Monocytes # 0.6 Eosinophils # 0.0 Basophils # 0.0 Nucleated Red Blood Cells # 0.0 Lab Scanned Report BLOOD TRANSFUSION REFERENCE LAB Test 10/14/16 08:36 Lab Scanned Report REFERENCE LAB Medications Current Medications Ondansetron HCl (Zofran Inj) 4 mg Q6H PRN IV NAUSEA AND/OR VOMITING Last administered on 09/26/16 09:23; Admin Dose 4 MG; Start 09/16/16 at 00:30 Acetaminophen (Tylenol Tab) 650 mg Q6H PRN PO PAIN LEVEL 1-3 OR FEVER Last administered on 10/08/16 12:47; Admin Dose 650 MG; Start 09/16/16 at 00:30 Polyethylene Glycol 17 gm 17 gm DAILY PO Last administered on 10/14/16 10:03; Admin Dose 17 GM; Start 09/20/16 at 11:00 Norepinephrine/ Dextrose (Levophed/D5W) 500 ml @ 1.87 mls/hr TITRATE IV Last administered on 10/14/16 06:28; Admin Dose 3.75 MLS/HR; Start 09/21/16 at 09:00 Acetaminophen/ Hydrocodone Bitart ([place] (5/325)) 1 tab Q4H PRN PO PAIN LEVEL 4 -7 Last administered on 09/28/16 21:20; Admin Dose 1 TAB; Start 09/21/16 at 15: 00 Acetaminophen/ Hydrocodone Bitart ([place] (5/325)) 2 tab Q4H PRN PO PAIN LEVEL 7 -10; Start 09/21/16 at 15:00 Hydromorphone HCl (Dilaudid) 0.5 mg Q2H PRN IV PAIN Last administered on 16:41; Admin Dose 0.5 MG; Start 09/21/16 at 15:00 Hydromorphone HCl (Dilaudid) 1 mg Q2H PRN IV PAIN Last administered on 23:57; Admin Dose 1 MG; Start 09/21/16 at 15:00 Docusate Sodium (Colace) 100 mg BID PRN PO CONSTIPATION; Start 09/21/16 at 15: 00 Enoxaparin Sodium (Lovenox) 40 mg DAILY SC ; Start 09/22/16 at 09:00; Status Future Hold Docusate Sodium (Colace Liquid Cup) 100 mg BID NGT Last administered on 10:03; Admin Dose 100 MG; Start 09/22/16 at 21:00 IV Flush (NS 10 ml) 10 ml PRN PRN IV IV PROTOCOL; Start 09/25/16 at 12:00 Spironolactone 50 mg 50 mg DAILY NGT Last administered on 10/14/16 10:04; Admin Dose 50 MG; Start 09/28/16 at 09:00 Dopamine HCl/ Dextrose 250 ml @ 6.053 mls/ hr TITRATE IV Last administered on 09/30/16 04:46; Admin Dose 6.053 MLS/HR; Start 09/29/16 at 11:00 Phenylephrine HCl 40 mg/Dextrose 500 ml @ 75 mls/hr TITRATE IV ; Start at 14:00 Caspofungin/ Sodium Chloride (Cancidas/NS) 250 ml @ 250 mls/hr Q24H IVPB Last administered on 10/13/16 13:09; Admin Dose 250 MLS/HR; Start 10/01/16 at 12:00 Furosemide (Lasix) 20 mg Q6 IV Last administered on 10/14/16 05:46; Admin Dose 20 MG; Start 10/05/16 at 13:00 Lorazepam 0.5 mg 0.5 mg Q6H PRN IV AGITATION/ANXIETY Last administered on 23:21; Admin Dose 0.5 MG; Start 10/05/16 at 23:00 Fentanyl 100 ml @ 2.5 mls/hr TITRATE IV Last administered on 10/14/16 06:11; Admin Dose 3 MLS/HR; Start 10/07/16 at 09:30 Tigecycline/ Sodium Chloride (Tygacil/NS) 100 ml @ 200 mls/hr Q12 IVPB Last administered on 10/14/16 10:03; Admin Dose 200 MLS/HR; Start 10/07/16 at 21:00 Pantoprazole 40 mg 40 mg BID@06,18 IV Last administered on 10/14/16 05:46; Admin Dose 40 MG; Start 10/09/16 at 18:00 Potassium Chloride/Dextrose (D5W + KCl 20 Meq) 1,000 ml @ 50 mls/hr Q20H IV Last administered on 10/14/16 08:41; Admin Dose 50 MLS/HR; Start 10/13/16 at 14: 00 Assessment/Plan Chief Complaint/Hosp Course IMP: 1. Septic Shock 2. Intra-abdominal abscess status post drainage with improved leukocytosis 3. Likely endovascular infection with septic pulm emboli 4. VDRF 5. Hypernatremia 6. Hypokalemia 7. Large right pleural effusion may require thoracentesis however this is recurrent likely secondary to low protein status. RECS: 1. Continue ALFRED drainage 2. Vasopressors as needed to MAP > 65 mmHg 3. Vent support 4. Replete K+ and Mg 5. Agree with DNR status 6. Will defer thoracentesis of right pleural effusion for now as patient is not on weaning protocol secondary to hypotension. 35 min cc time Problems: DAMIEN GUADARRAMA MD, [facility] Oct 14, 2016 12:15
[2016-10-14] MEDS: CASPOFUNGIN 50 MG in SOD CHLORIDE 0.9% 250 ML IVPB SCH (12:55)
[2016-10-14 13:14] LABS: HEMATOCRIT 24.1 % (37.0-47.0); HEMOGLOBIN 7.6 g/dl (12.0-16.0)
[2016-10-14 13:35] LABS: CALCIUM 7.3 mg/dl (8.4-10.2); CREATININE 0.69 mg/dl (0.44-1.00); POTASSIUM 3.7 mmol/L (3.5-5.1)
--- NOTE | 2016-10-14 15:31 | RADRPT ---
PROCEDURE: Chest radiograph CLINICAL INDICATION: Follow-up evaluation of chest tube and pneumothorax following clamping of [address] tube. TECHNIQUE: Single portable frontal view. COMPARISON: Radiograph from 10/11/2016. FINDINGS: The tracheostomy tube 3 cm above the zana. Right PICC terminates in the distal superior vena cava. One pigtail catheter terminates in the right lateral mid lung. One pigtail catheter terminates in the right lateral lung base. No pneumothorax identified. Bilateral upper and lower lobe or alveolar opacities consistent with multifocal pneumonia. Small bilateral pleural effusions, larger on the left. Aortic atherosclerosis. No suspicious bone lesion. IMPRESSION: 1. No pneumothorax identified. 2. Multifocal pneumonia with small bilateral pleural effusions, similar to 10/11/2016. 3. All support lines and tubes in appropriate position. RPTAT: PP Physician Humera Date Time Electronically viewed and signed by Physician Humera on 10/14/2016 15:31 /
--- NOTE | 2016-10-14 17:24 | PN ---
Date/Time of Note Date/Time of Note DATE: 10/14/16 TIME: 17:19 Assessment/Plan VTE Prophylaxis VTE Prophylaxis Intervention: SCD's Lines/Catheters IV Catheter Type (from Nrs): PICC Line Central line still needed: Yes Urinary Cath still in place: Yes Reason Cath still needed: other (indicate) (critically ill) Assessment/Plan Assessment/Plan 70 yo F with h/o hydrocephalus with previous VPS admitted for sigmoid abscess. hospital stay cb sepsis, colon perforation with multiple abd fluid collections , also recurrent respiratory failure warranting trach, pleural effusion with thora c/b by PTX 1. Sigmoid colon abscess, likely a complication of diverticulitis - s/p sigmoid colectomy with end colostomy (Reid's procedure) and adhesiolysis on 09/21/16 - cont abx and gen surg care 2. Ventilator dependent respiratory failure: sp trach 3 Left pleural effusion: Status post thoracentesis, complicated with pneumothorax status post placement of a chest tube, removal of chest tube per pulmonology 4. History of ICH, s/p ventriculoperitoneal shunt placement: Neurosurg on board will need to touch base in AM as pt approaching discharge 5. Paroxysmal A. fib: Now in sinus rhythm status post amiodarone and dopamine. Cardiology on board, 6. Acute renal insufficiency: Resolved. 7. s/p NSTEMI: Likely secondary to septic shock. Cardiology on board. 8. Volume overload state: Continue diuresis. 9. Anemia, likely a combination of iron deficiency and anemia of chronic disease: cont iron 10. Dysphagia Status post PEG tube placement Prophylaxis: SCDs CC time 30 minutes Subjective 24 Hr Interval Summary Free Text/Dictation RT attending to pt's trach at time of my eval this AM. Pt without discomfort levo still being weaned Exam/Review of Systems Vital Signs Vitals Vital Signs Date Time Temp Pulse Resp B/P Pulse Ox O2 Delivery O2 Flow Rate FiO2 10/14/16 16:00 92 10/14/16 15:05 12 99 40 10/14/16 14:45 112/64 10/14/16 14:00 Mechanical Ventilator 10/14/16 12:00 98.4 10/13/16 16:29 100 Intake and Output 10/13/16 10/13/16 10/14/16 15:00 23:00 07:00 Intake Total 1085.40 ml 735.54 ml 325.75 ml Output Total 1250 ml 1025 ml 100 ml Balance -164.60 ml -289.46 ml 225.75 ml Exam nad, laying in bed trach site c/d/i PEG site c/d/i ostomy bag with sanguinous drainage accordian abd drain with yellow output no rashes Results Result Diagram: 10/14/16 1217 10/14/16 1217 Results 24 hrs Laboratory Tests Test 10/14/16 04:15 10/14/16 08:20 10/14/16 08:35 10/14/16 08:36 White Blood Count 14.9 #H Red Blood Count 2.61 L Hemoglobin 7.4 L Hematocrit 23.4 L Mean Corpuscular Volume 89.7 Mean Corpuscular Hemoglobin 28.4 L Mean Corpuscular Hemoglobin Concent 31.6 L Red Cell Distribution Width 22.0 H Platelet Count 142 Mean Platelet Volume 13.2 H Neutrophils % 89.7 H Lymphocytes % 5.5 L Monocytes % 3.8 Eosinophils % 0.1 Basophils % 0.1 Nucleated Red Blood Cells % 0.0 Neutrophils # 13.3 H Lymphocytes # 0.8 Monocytes # 0.6 Eosinophils # 0.0 Basophils # 0.0 Nucleated Red Blood Cells # 0.0 Sodium Level 153 H Potassium Level 2.7 *L Chloride Level 104 Carbon Dioxide Level 37 H Anion Gap 15 Blood Urea Nitrogen 39 H Creatinine 0.76 Glucose Level 194 Calcium Level 7.2 L Lab Scanned Report BLOOD TRANSFUSION REFERENCE LAB REFERENCE LAB Test 10/14/16 10:30 10/14/16 12:17 Stool Occult Blood POSITIVE Hemoglobin 7.6 L Hematocrit 24.1 L Sodium Level 149 H Potassium Level 3.7 Chloride Level 102 Carbon Dioxide Level 38 H Anion Gap 13 Blood Urea Nitrogen 37 H Creatinine 0.69 Glucose Level 200 Calcium Level 7.3 L Medications Medications Current Medications Ondansetron HCl (Zofran Inj) 4 mg Q6H PRN IV NAUSEA AND/OR VOMITING Last administered on 09/26/16 09:23; Admin Dose 4 MG; Start 09/16/16 at 00:30 Acetaminophen (Tylenol Tab) 650 mg Q6H PRN PO PAIN LEVEL 1-3 OR FEVER Last administered on 10/08/16 12:47; Admin Dose 650 MG; Start 09/16/16 at 00:30 Polyethylene Glycol 17 gm 17 gm DAILY PO Last administered on 10/14/16 10:03; Admin Dose 17 GM; Start 09/20/16 at 11:00 Norepinephrine/ Dextrose (Levophed/D5W) 500 ml @ 1.87 mls/hr TITRATE IV Last administered on 10/14/16 06:28; Admin Dose 3.75 MLS/HR; Start 09/21/16 at 09:00 Acetaminophen/ Hydrocodone Bitart ([place] (5/325)) 1 tab Q4H PRN PO PAIN LEVEL 4 -7 Last administered on 09/28/16 21:20; Admin Dose 1 TAB; Start 09/21/16 at 15: 00 Acetaminophen/ Hydrocodone Bitart ([place] (5/325)) 2 tab Q4H PRN PO PAIN LEVEL 7 -10; Start 09/21/16 at 15:00 Hydromorphone HCl (Dilaudid) 0.5 mg Q2H PRN IV PAIN Last administered on 16:41; Admin Dose 0.5 MG; Start 09/21/16 at 15:00 Hydromorphone HCl (Dilaudid) 1 mg Q2H PRN IV PAIN Last administered on 23:57; Admin Dose 1 MG; Start 09/21/16 at 15:00 Docusate Sodium (Colace) 100 mg BID PRN PO CONSTIPATION; Start 09/21/16 at 15: 00 Enoxaparin Sodium (Lovenox) 40 mg DAILY SC ; Start 09/22/16 at 09:00; Status Future Hold Docusate Sodium (Colace Liquid Cup) 100 mg BID NGT Last administered on 10:03; Admin Dose 100 MG; Start 09/22/16 at 21:00 IV Flush (NS 10 ml) 10 ml PRN PRN IV IV PROTOCOL; Start 09/25/16 at 12:00 Spironolactone 50 mg 50 mg DAILY NGT Last administered on 10/14/16 10:04; Admin Dose 50 MG; Start 09/28/16 at 09:00 Dopamine HCl/ Dextrose 250 ml @ 6.053 mls/ hr TITRATE IV Last administered on 09/30/16 04:46; Admin Dose 6.053 MLS/HR; Start 09/29/16 at 11:00 Phenylephrine HCl 40 mg/Dextrose 500 ml @ 75 mls/hr TITRATE IV ; Start at 14:00 Caspofungin/ Sodium Chloride (Cancidas/NS) 250 ml @ 250 mls/hr Q24H IVPB Last administered on 10/14/16 12:55; Admin Dose 250 MLS/HR; Start 10/01/16 at 12:00 Furosemide (Lasix) 20 mg Q6 IV Last administered on 10/14/16 12:55; Admin Dose 20 MG; Start 10/05/16 at 13:00 Lorazepam 0.5 mg 0.5 mg Q6H PRN IV AGITATION/ANXIETY Last administered on 23:21; Admin Dose 0.5 MG; Start 10/05/16 at 23:00 Fentanyl 100 ml @ 2.5 mls/hr TITRATE IV Last administered on 10/14/16 06:11; Admin Dose 3 MLS/HR; Start 10/07/16 at 09:30 Tigecycline/ Sodium Chloride (Tygacil/NS) 100 ml @ 200 mls/hr Q12 IVPB Last administered on 10/14/16 10:03; Admin Dose 200 MLS/HR; Start 10/07/16 at 21:00 Pantoprazole 40 mg 40 mg BID@06,18 IV Last administered on 10/14/16 05:46; Admin Dose 40 MG; Start 10/09/16 at 18:00 Potassium Chloride/Dextrose (D5W + KCl 20 Meq) 1,000 ml @ 50 mls/hr Q20H IV Last administered on 10/14/16 08:41; Admin Dose 50 MLS/HR; Start 10/13/16 at 14: 00 ALEKS RAINEY MD Oct 14, 2016 17:24
[2016-10-14] MEDS: LORAZEPAM 2 MG INJ IV PRN (18:10)
--- NOTE | 2016-10-14 18:18 | CONS ---
Date/Time of Note Date/Time of Note DATE: 10/14/16 TIME: 18:16 Assessment/Plan Assessment/Plan Chief Complaint/Hosp Course Acute respiratory failure: now status post tracheostomy Acute diastolic heart failure: Secondary to volume resuscitation in setting of low albumin and third spacing. Significant anasarca. Diuresing Paroxysmal afib: converted on amiodarone. Currently in sinus rhythm Septic shock: intraabdominal abscess, bilateral pneumonia. S/p sigmoid colectomy. Tension pneumothorax: due to thoracentesis. s/p chest tube 09/30 NSTEMI: Trop mildly elevated likely type II in the setting of septic shock. Echo from 09/18 showed normal EF and no significant valvular disease. Repeat trop normalized Diverticulitis complicated by abscess s/p sigmoid colectomy and now colostomy Coagulopathy: ?DIC. Resolved h/o ICH with FEED HAND[employer]ER shunt -monitor blood pressures off pressors -Continue Lasix to 20mg IV [id number] -Ventilator management per pulmonology Problems: Consultation Date/Type/Reason Admit Date/Time Sep 15, 2016 at 21:35 Initial Consult Date 09/21/16 Type of Consultation: Cardiology 24 HR Interval Summary Free Text/Dictation Now status post tracheostomy and PEG. Just weaned off Levophed. Detailed Summary Additional Comments Unable to obtain review of systems, patient is on ventilator. Exam/Review of Systems Vital Signs Vitals Vital Signs Date Time Temp Pulse Resp B/P Pulse Ox O2 Delivery O2 Flow Rate FiO2 10/14/16 17:10 89 18 100 40 10/14/16 14:45 112/64 10/14/16 14:00 Mechanical Ventilator 10/14/16 12:00 98.4 10/13/16 16:29 100 Intake and Output 10/13/16 10/13/16 10/14/16 15:00 23:00 07:00 Intake Total 1085.40 ml 735.54 ml 325.75 ml Output Total 1250 ml 1025 ml 100 ml Balance -164.60 ml -289.46 ml 225.75 ml Exam Constitutional: NAD HEENT: NCAT Neck: No obvious JVD, tracheostomy Respiratory: diminished breath sounds, scattered crackles, no wheezes; chest tube noted Cardiovascular: Tachycardic, regular, no m/r/g, 2+ pitting BLE edema Gastrointestinal: non-tender, soft, grimaces to palpation Extremities: warm, no cyanosis or clubbing, LE SCDs in place Results Result Diagram: 10/14/16 1217 10/14/16 1217 Results 24 hrs Laboratory Tests Test 10/14/16 04:15 10/14/16 08:20 10/14/16 08:35 10/14/16 08:36 White Blood Count 14.9 #H Red Blood Count 2.61 L Hemoglobin 7.4 L Hematocrit 23.4 L Mean Corpuscular Volume 89.7 Mean Corpuscular Hemoglobin 28.4 L Mean Corpuscular Hemoglobin Concent 31.6 L Red Cell Distribution Width 22.0 H Platelet Count 142 Mean Platelet Volume 13.2 H Neutrophils % 89.7 H Lymphocytes % 5.5 L Monocytes % 3.8 Eosinophils % 0.1 Basophils % 0.1 Nucleated Red Blood Cells % 0.0 Neutrophils # 13.3 H Lymphocytes # 0.8 Monocytes # 0.6 Eosinophils # 0.0 Basophils # 0.0 Nucleated Red Blood Cells # 0.0 Sodium Level 153 H Potassium Level 2.7 *L Chloride Level 104 Carbon Dioxide Level 37 H Anion Gap 15 Blood Urea Nitrogen 39 H Creatinine 0.76 Glucose Level 194 Calcium Level 7.2 L Lab Scanned Report BLOOD TRANSFUSION REFERENCE LAB REFERENCE LAB Test 10/14/16 10:30 10/14/16 12:17 Stool Occult Blood POSITIVE Hemoglobin 7.6 L Hematocrit 24.1 L Sodium Level 149 H Potassium Level 3.7 Chloride Level 102 Carbon Dioxide Level 38 H Anion Gap 13 Blood Urea Nitrogen 37 H Creatinine 0.69 Glucose Level 200 Calcium Level 7.3 L Medications Medications Current Medications Ondansetron HCl (Zofran Inj) 4 mg Q6H PRN IV NAUSEA AND/OR VOMITING Last administered on 09/26/16 09:23; Admin Dose 4 MG; Start 09/16/16 at 00:30 Acetaminophen (Tylenol Tab) 650 mg Q6H PRN PO PAIN LEVEL 1-3 OR FEVER Last administered on 10/08/16 12:47; Admin Dose 650 MG; Start 09/16/16 at 00:30 Polyethylene Glycol 17 gm 17 gm DAILY PO Last administered on 10/14/16 10:03; Admin Dose 17 GM; Start 09/20/16 at 11:00 Norepinephrine/ Dextrose (Levophed/D5W) 500 ml @ 1.87 mls/hr TITRATE IV Last administered on 10/14/16 06:28; Admin Dose 3.75 MLS/HR; Start 09/21/16 at 09:00 Acetaminophen/ Hydrocodone Bitart ([place] (5/325)) 1 tab Q4H PRN PO PAIN LEVEL 4 -7 Last administered on 09/28/16 21:20; Admin Dose 1 TAB; Start 09/21/16 at 15: 00 Acetaminophen/ Hydrocodone Bitart ([place] (5/325)) 2 tab Q4H PRN PO PAIN LEVEL 7 -10; Start 09/21/16 at 15:00 Hydromorphone HCl (Dilaudid) 0.5 mg Q2H PRN IV PAIN Last administered on 16:41; Admin Dose 0.5 MG; Start 09/21/16 at 15:00 Hydromorphone HCl (Dilaudid) 1 mg Q2H PRN IV PAIN Last administered on 23:57; Admin Dose 1 MG; Start 09/21/16 at 15:00 Docusate Sodium (Colace) 100 mg BID PRN PO CONSTIPATION; Start 09/21/16 at 15: 00 Enoxaparin Sodium (Lovenox) 40 mg DAILY SC ; Start 09/22/16 at 09:00; Status Future Hold Docusate Sodium (Colace Liquid Cup) 100 mg BID NGT Last administered on 10:03; Admin Dose 100 MG; Start 09/22/16 at 21:00 IV Flush (NS 10 ml) 10 ml PRN PRN IV IV PROTOCOL; Start 09/25/16 at 12:00 Spironolactone 50 mg 50 mg DAILY NGT Last administered on 10/14/16 10:04; Admin Dose 50 MG; Start 09/28/16 at 09:00 Dopamine HCl/ Dextrose 250 ml @ 6.053 mls/ hr TITRATE IV Last administered on 09/30/16 04:46; Admin Dose 6.053 MLS/HR; Start 09/29/16 at 11:00 Phenylephrine HCl 40 mg/Dextrose 500 ml @ 75 mls/hr TITRATE IV ; Start at 14:00 Caspofungin/ Sodium Chloride (Cancidas/NS) 250 ml @ 250 mls/hr Q24H IVPB Last administered on 10/14/16 12:55; Admin Dose 250 MLS/HR; Start 10/01/16 at 12:00 Furosemide (Lasix) 20 mg Q6 IV Last administered on 10/14/16 18:10; Admin Dose 20 MG; Start 10/05/16 at 13:00 Lorazepam 0.5 mg 0.5 mg Q6H PRN IV AGITATION/ANXIETY Last administered on 18:10; Admin Dose 0.5 MG; Start 10/05/16 at 23:00 Fentanyl 100 ml @ 2.5 mls/hr TITRATE IV Last administered on 10/14/16 06:11; Admin Dose 3 MLS/HR; Start 10/07/16 at 09:30 Tigecycline/ Sodium Chloride (Tygacil/NS) 100 ml @ 200 mls/hr Q12 IVPB Last administered on 10/14/16 10:03; Admin Dose 200 MLS/HR; Start 10/07/16 at 21:00 Pantoprazole 40 mg 40 mg BID@06,18 IV Last administered on 10/14/16 18:09; Admin Dose 40 MG; Start 10/09/16 at 18:00 Potassium Chloride/Dextrose (D5W + KCl 20 Meq) 1,000 ml @ 50 mls/hr Q20H IV Last administered on 10/14/16 08:41; Admin Dose 50 MLS/HR; Start 10/13/16 at 14: 00 AVINASH FERNANDEZ MD Oct 14, 2016 18:18
--- NOTE | 2016-10-14 19:42 | PN ---
Date/Time of Note Date/Time of Note DATE: 10/14/16 TIME: 19:40 Assessment/Plan Lines/Catheters IV Catheter Type (from Nrs): PICC Line Shore in Place (from Nrsg): Yes Assessment/Plan Assessment/Plan [facility] Progress Note Date of Service: 10/14/2016 Place of service: [facility] ICU Today's Assessment & Plan: Overall slightly improved with lower white blood cell count and more energy. No indication for acute surgical intervention. Previous assessment that still applies today: Overall stable but with failure to thrive. Abdomen continues to remain benign. Trach and PEG done. Drainage of perihepatic fluid collection done. Patient deteriorating and we are hopeful that assuming no other new issues, that the patient will show reversal course and start improving. This will certainly depend on adequate nutrition and I recommended that we continue the feeds through the PEG to a goal of 60 cc/h with guidance from our dietitian colleagues. No indication for acute surgical intervention. Appreciate all the physicians and providers excellent care. With above assessment, I recommended the following for today: 1. Continue aggressive medical management with intubation; CODE STATUS at this point is DO NOT RESUSCITATE but with intubation being okay and no chest compressions or electric shocks. Chemical code is okay. 2. Continue wound VAC; dressing change 3 times a week 3. Cont aggressive pulmonary toilet 4. Cont Lasix as allowed by her clinical condition 5. Labs in am 6. Please maintain multidisciplinary discussion regarding fluid intake, CODE STATUS, and other major medical decisions since this is a fragile surgical patient with recent sepsis and shock; I changed code status to full code, but without chest compression or electric shock 7. Targeted antimicrobial therapy to culture results 8. PT OT 9. Management of CLUTCH ASSEMBLER shunt per Dr. Miner (much appreciate the care) 10. Continue PEG gastric feeds with goal of 60 cc/h 11. Keep in the ICU 12. Social work and case management to please start working on disposition planning (rehab versus SNF) 13. Please note: Guille, who is the patient's decision maker currently, would like Mr. Yanez (patient's ex-) to still be involved in her care. He should still have full access to the hospital and patient according to Guille. 14. Tracheostomy management per Dr. Jones 15. Continue following GI recommendation for management of GI bleeding 16. Continue percutaneous drainage of perihepatic fluid collections and flushed drain. Thank you again for your great care of this very pleasant patient and wonderful family. If there are any questions, please feel free to call me at [phone]. Nature of presenting problem: High severity Please note that, given the extensive number of diagnoses or management options , the extensive amount and/or complexity of data needed to be reviewed, and I risk of complications and/or morbidity or mortality, this qualifies as high complexity type of decision-making. Disclaimer: Inadvertent spelling and grammatical errors are likely due to EHR/ dictation software use and do not reflect on the quality of delivered patient care. Also, please note that the electronic time recorded on this node does not necessarily reflect the actual time of the visit. Updated Clinical Summary: A very pleasant 70-year-old lady without significant known past medical history other than a CLUTCH ASSEMBLER shunt placement many years ago which she did not remember or report, presenting with what appears to be a sigmoid colon abscess or pericolonic abscess, which seemed to be a complication of diverticulitis. S/p IR drainage 09/09/16 with removal of 20 cc pus and placement of a 10 Fr. pigtail catheter at [facility]. D/c home 09/12/16. Re-presented to [facility] 09/15/16 after being diverted from [facility] (due to internal disaster diversion) where CT was done showing adequate placement of the percutaneous drain near the sigmoid colon and decompressed sigmoid colon abscess, no obvious free air or significant spillage of stool in the abdominal cavity, and incidental finding of tail of the CLUTCH ASSEMBLER shunt in the pelvis (new from right upper quadrant position of the same drain on the CT scan at [facility]). Transfer to [facility] 09/15/2016 for further cares. S/p upsizing of drain to 12 Fr pigtail on 09/17/16 (communication with colon demonstrated; no obvious free communication to rest of peritoneal space). Patient decompensated in the early hours of the morning on 09/21/2016 and had to be transferred to the intensive care unit with need for endotracheal tube intubation, central line placement, and resuscitation for treatment of shock with lactic acidosis and evidence of peritonitis and free air on the new chest, abdomen, and pelvis CT scan. S/p a rather challenging sigmoid colectomy with performance of end colostomy (Reid's procedure), takedown of splenic flexure of the colon, lysis of adhesions (60 minutes), and abdominal lavage at [facility] on 09/21/16; diagnosis of colon ischemia (distal transverse colon and descending colon) during reentry through recent laparotomy incision with exploration of abdominal cavity, takedown of colostomy, completion left hemicolectomy with resection of distal transverse colon, lysis of adhesions, abdominal lavage, performance of an end colostomy [facility] 09/24/16. Extubated post op evening of 09/25/16. Decompensation with intubation and restart of pressors . Right-sided pneumothorax after drainage of right pleural effusion requiring chest tube placement 09/30/2016. Extubated 10/03/2016. Decompensation with reintubation 10/06/16. Tracheostomy and PEG placed. Perihepatic fluid collections drained 10/13/2016. Comorbidities: 1. Perforated sigmoid colon (see below) 2. Status post ventriculoperitoneal shunt placement. 3. Status post prior hysterectomy and bilateral salpingo-oophorectomy through Pfannenstiel incision 4. S/p IR drainage 09/09/16 with removal of 20 cc pus and placement of a 10 Fr. pigtail catheter at [facility]. 5. Readmission to [facility] 09/15/16 with upsizing of drain to 12 Fr pigtail on (communication with colon demonstrated; no obvious free communication to rest of peritoneal space). Septic shock with multiorgan failure 09/21/2016 requiring ICU admission with intubation and pressors. 6. S/p a rather challenging sigmoid colectomy with performance of end colostomy (Reid's procedure), takedown of splenic flexure of the colon, lysis of adhesions (60 minutes), and abdominal lavage at [facility] on 09/21/16 7. Colon ischemia (distal transverse colon and descending colon) 8. S/p reentry through recent laparotomy incision with exploration of abdominal cavity, takedown of colostomy, completion left hemicolectomy with resection of distal transverse colon, lysis of adhesions, abdominal lavage, performance of an end colostomy [facility] 09/24/16 9. Stage I/II decubitus pressure ulcers (10/11/2016 [facility] ICU) Subjective: Remain on a ventilator with tracheostomy without major events. Lethargic and not communicative, but with much more energy today than previously. Objective: Vitals: See below I's & O's: See below Exam: GENERAL: On exam, the patient was lying in bed and appeared to be breathing comfortably on the vent. No obvious acute distress. Appears emaciated. ABDOMEN: Soft, nontender and nondistended. Incision dressings are clean, dry and intact without any obvious evidence of underlying erythema, edema, discharge , or hernia. Surgical drain ss without any evidence of enteric contents. There are no peritoneal signs or guarding. Ostomy appears to be viable and productive with stool and air in the bag. Perihepatic drain showing pus. SKIN: Skin appears to be pink and feels warm to touch. NEUROLOGIC: Patient is arousable with voice but for the most part noncommunicative and does not respond to simple commands. Remains on the ventilator with tracheostomy tube and sedated. Labs: See below Exam/Review of Systems Vital Signs Vitals Vital Signs Date Time Temp Pulse Resp B/P Pulse Ox O2 Delivery O2 Flow Rate FiO2 10/14/16 19:23 78 13 100 40 10/14/16 18:45 77/49 10/14/16 18:00 Mechanical Ventilator 10/14/16 16:00 98.6 10/13/16 16:29 100 Intake and Output 10/13/16 10/13/16 10/14/16 15:00 23:00 07:00 Intake Total 1085.40 ml 735.54 ml 375.75 ml Output Total 1250 ml 1025 ml 350 ml Balance -164.60 ml -289.46 ml 25.75 ml Results Result Diagram: 10/14/16 1217 10/14/16 1217 ALEXSANDER DUARTE M.D. Oct 14, 2016 19:42
--- NOTE | 2016-10-14 20:30 | PN ---
Date/Time of Note Date/Time of Note DATE: 10/14/16 TIME: 20:30 Assessment/Plan Lines/Catheters IV Catheter Type (from Nrsg): PICC Line Shore in Place (from Nrsg): Yes Assessment/Plan Chief Complaint/Hosp Course This is a 70-year-old female admitted with a perforated colon and contained abscess underwent a drainage procedure on further colonic procedures patient is currently in the intensive care unit unable to come off the ventilator secondary to multiple medical problems Patient was extubated and had to be input intubated again has been treated for septic shock lactic acidosis peritonitis currently has an end colostomy Helio pouch and has undergone colon resection patient also has a right-sided chest tube for a pneumothorax She was reintubated again Status post tracheostomy Tracheal site clean We will continue pulmonary toilet Trach care Vent support Problems: Subjective 24 Hr Interval Summary Constitutional: improved Pain Control: mild Exam/Review of Systems Vital Signs Vitals Vital Signs Date Time Temp Pulse Resp B/P Pulse Ox O2 Delivery O2 Flow Rate FiO2 10/14/16 19:23 78 13 100 40 10/14/16 18:45 77/49 10/14/16 18:00 Mechanical Ventilator 10/14/16 16:00 98.6 10/13/16 16:29 100 Intake and Output 10/13/16 10/13/16 10/14/16 15:00 23:00 07:00 Intake Total 1085.40 ml 735.54 ml 375.75 ml Output Total 1250 ml 1025 ml 350 ml Balance -164.60 ml -289.46 ml 25.75 ml Exam Eyes: EOMI, nl conjunctiva, nl lids, nl sclera ENMT: mucosa pink and moist, nl external ears & nose, nl lips & teeth, nl nasal mucosa & septum Neck: non-tender, supple Respiratory: clear to auscultation, normal air movement Cardiovascular: nl pulses, regular rate and rhythm Results Result Diagram: 10/14/16 1217 10/14/16 1217 GIL PINEDA MD Oct 14, 2016 20:30
--- NOTE | 2016-10-14 21:44 | CONS ---
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 Shen on * WBC down to 14.6 HOSPITAL EVENTS: * s/p 09/21/16 Sigmoid colectomy with performance of end colostomy (Reid's procedure), w/Lysis of adhesions. * s/p 09/21/16 Externalization of DEVELOPMENT ANALYST shunt. INDICATION: Possible DEVELOPMENT ANALYST shunt infection, ABD abscess * Extubated 10/03 * RE-intubated 09/29 * s/p Left THORA 10/01 * Extubated 10/03 * Re-Intubated 10/06 * 10/10/16 PEG EXAM: 70 yo F ->obtunted on the Vent HEENT:Orally intubated -> Vent Neck: trachea midline. Heart: S1, S2 CXT: chest rise symmetrical breath sounds clear, diminished basis. ABD: Soft, Wound Vac + Colostomy Extremities without cyanosis, (+) edema x4 = dependent edema ID ASSESSMENT 70 yo F w/PMHx ICH and DEVELOPMENT ANALYST shunt admit with: 1. Sepsis w/shock , s/p lactic acidosis => Back on pressors 10/06/16 * (+)Leukocytosis * (+)Fevers >101.5 10/07 2. s/p 09/21/16 Externalization of DEVELOPMENT ANALYST shunt. INDICATION: Possible DEVELOPMENT ANALYST shunt infection, ABD abscess * (+)Cryptococcal antigen serology 3. Intra-ABD abscess-> 10/13/16 CT guided drainage * s/p Perforated sigmoid colon w/abscess: POD#-> s/p 09/21/16 Sigmoid colectomy with performance of end colostomy (Reid's procedure), w/Lysis of adhesions. * MICRO: 09/23/16 BODY FLUID CULTURE Final Organism 1 ENTEROCOCCUS SPECIES Organism 2 COAGULASE NEGATIVE STAPH Organism 3 ALPHA HEMOLYTIC STREP SPP . VIRIDANS GROUP 4. Acute respiratory failure -> orally RE-intubated 10/06 * Likely endovascular infection with septic pulm emboli 5. CHF w/elevated BNP => (+)Anasarca w/Pleural effusions s/p CT drain 09/30 6. Bilateral PNA == Present on admission 7. NOW (+)VAP => Ventilator associated PNA == superimposed on pulmonary process POA * 10/02/ ETT aspirate (+) MOLD + yeast ->DDx contaminant, submit new sample * 10/07 ETT aspirate (+) MOLD + GNR ->Non Lactose Fermenting GNR: Identified as Cupriavidus pauculus, Previously known as Ralstonia paucula. * 10/08/16 CT CHEST: Multiple bilateral cavitary nodules...similar to the prior CT :DDx septic emboli, atypical (fungal, tuberculosis) infectious process, and possible neoplasm. * CT 09/30 THORA BODY FLUID CULTURE no growth * Fungal smears (-) to date * AFB SMEAR (-) x 3 Final ACID FAST BACILLI NONE SEEN 8. Pancytopenia - sepsis 9. Coagulopathy w/thrombocytopenia (-)MRSA Nares screen INVASIVES: PICC (09/25/16) , ETT, NGT, VPS, FC, CXT-Tube; PEG ABX ALLERGY: PCN CURRENT ABX => TYGACIL #8 + Cancidas #15 TOTAL ABX DAY #26 =>Cipro start 09/17 => VANCO IV + MERREM + FLAGYL #8-> DC'd 10/07 ID RECOMMENDATIONS 1. 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 Shen on 2. Change Cancidas to AMPHO B 3. Await micro ID of MOLD growing in respiratory culture x 2 4 Send cocci, aspergillosis, histoplasma serology -> Pending . . . . . Problems: Consultation Date/Type/Reason Admit Date/Time Sep 15, 2016 at 21:35 Initial Consult Date 09/21/16 Type of Consultation: ID Exam/Review of Systems Vital Signs Vitals Vital Signs Date Time Temp Pulse Resp B/P Pulse Ox O2 Delivery O2 Flow Rate FiO2 10/14/16 21:19 93 17 100 40 10/14/16 21:15 110/67 10/14/16 21:00 Mechanical Ventilator 10/14/16 20:00 98.6 10/13/16 16:29 100 Intake and Output 10/13/16 10/13/16 10/14/16 15:00 23:00 07:00 Intake Total 1085.40 ml 735.54 ml 375.75 ml Output Total 1250 ml 1025 ml 350 ml Balance -164.60 ml -289.46 ml 25.75 ml Results Result Diagram: 10/14/16 1217 10/14/16 1217 Results 24 hrs Laboratory Tests Test 10/14/16 04:15 10/14/16 08:20 10/14/16 08:35 10/14/16 08:36 White Blood Count 14.9 #H Red Blood Count 2.61 L Hemoglobin 7.4 L Hematocrit 23.4 L Mean Corpuscular Volume 89.7 Mean Corpuscular Hemoglobin 28.4 L Mean Corpuscular Hemoglobin Concent 31.6 L Red Cell Distribution Width 22.0 H Platelet Count 142 Mean Platelet Volume 13.2 H Neutrophils % 89.7 H Lymphocytes % 5.5 L Monocytes % 3.8 Eosinophils % 0.1 Basophils % 0.1 Nucleated Red Blood Cells % 0.0 Neutrophils # 13.3 H Lymphocytes # 0.8 Monocytes # 0.6 Eosinophils # 0.0 Basophils # 0.0 Nucleated Red Blood Cells # 0.0 Sodium Level 153 H Potassium Level 2.7 *L Chloride Level 104 Carbon Dioxide Level 37 H Anion Gap 15 Blood Urea Nitrogen 39 H Creatinine 0.76 Glucose Level 194 Calcium Level 7.2 L Lab Scanned Report BLOOD TRANSFUSION REFERENCE LAB REFERENCE LAB Test 10/14/16 10:30 10/14/16 12:17 Stool Occult Blood POSITIVE Hemoglobin 7.6 L Hematocrit 24.1 L Sodium Level 149 H Potassium Level 3.7 Chloride Level 102 Carbon Dioxide Level 38 H Anion Gap 13 Blood Urea Nitrogen 37 H Creatinine 0.69 Glucose Level 200 Calcium Level 7.3 L Medications Medications Current Medications Ondansetron HCl (Zofran Inj) 4 mg Q6H PRN IV NAUSEA AND/OR VOMITING Last administered on 09/26/16t 09:23; Admin Dose 4 MG; Start 09/16/16 at 00:30 Acetaminophen (Tylenol Tab) 650 mg Q6H PRN PO PAIN LEVEL 1-3 OR FEVER Last administered on 10/08/16 12:47; Admin Dose 650 MG; Start 09/16/16 at 00:30 Polyethylene Glycol 17 gm 17 gm DAILY PO Last administered on 10/14/16 10:03; Admin Dose 17 GM; Start 09/20/16 at 11:00 Norepinephrine/ Dextrose (Levophed/D5W) 500 ml @ 1.87 mls/hr TITRATE IV Last administered on 10/14/16 06:28; Admin Dose 3.75 MLS/HR; Start 09/21/16 at 09:00 Acetaminophen/ Hydrocodone Bitart ([place] (5/325)) 1 tab Q4H PRN PO PAIN LEVEL 4 -7 Last administered on 09/28/16 21:20; Admin Dose 1 TAB; Start 09/21/16 at 15: 00 Acetaminophen/ Hydrocodone Bitart ([place] (5/325)) 2 tab Q4H PRN PO PAIN LEVEL 7 -10; Start 09/21/16 at 15:00 Hydromorphone HCl (Dilaudid) 0.5 mg Q2H PRN IV PAIN Last administered on 16:41; Admin Dose 0.5 MG; Start 09/21/16 at 15:00 Hydromorphone HCl (Dilaudid) 1 mg Q2H PRN IV PAIN Last administered on 23:57; Admin Dose 1 MG; Start 09/21/16 at 15:00 Docusate Sodium (Colace) 100 mg BID PRN PO CONSTIPATION; Start 09/21/16 at 15: 00 Enoxaparin Sodium (Lovenox) 40 mg DAILY SC ; Start 09/22/16 at 09:00; Status Future Hold Docusate Sodium (Colace Liquid Cup) 100 mg BID NGT Last administered on 20:59; Admin Dose 100 MG; Start 09/22/16 at 21:00 IV Flush (NS 10 ml) 10 ml PRN PRN IV IV PROTOCOL; Start 09/25/16 at 12:00 Spironolactone 50 mg 50 mg DAILY NGT Last administered on 10/14/16 10:04; Admin Dose 50 MG; Start 09/28/16 at 09:00 Dopamine HCl/ Dextrose 250 ml @ 6.053 mls/ hr TITRATE IV Last administered on 09/30/16 04:46; Admin Dose 6.053 MLS/HR; Start 09/29/16 at 11:00 Phenylephrine HCl 40 mg/Dextrose 500 ml @ 75 mls/hr TITRATE IV ; Start at 14:00 Caspofungin/ Sodium Chloride (Cancidas/NS) 250 ml @ 250 mls/hr Q24H IVPB Last administered on 10/14/16 12:55; Admin Dose 250 MLS/HR; Start 10/01/16 at 12:00 Furosemide (Lasix) 20 mg Q6 IV Last administered on 10/14/16 18:10; Admin Dose 20 MG; Start 10/05/16 at 13:00 Lorazepam 0.5 mg 0.5 mg Q6H PRN IV AGITATION/ANXIETY Last administered on 18:10; Admin Dose 0.5 MG; Start 10/05/16 at 23:00 Fentanyl 100 ml @ 2.5 mls/hr TITRATE IV Last administered on 10/14/16 06:11; Admin Dose 3 MLS/HR; Start 10/07/16 at 09:30 Tigecycline/ Sodium Chloride (Tygacil/NS) 100 ml @ 200 mls/hr Q12 IVPB Last administered on 10/14/16 21:01; Admin Dose 200 MLS/HR; Start 10/07/16 at 21:00 Pantoprazole 40 mg 40 mg BID@06,18 IV Last administered on 10/14/16 18:09; Admin Dose 40 MG; Start 10/09/16 at 18:00 Potassium Chloride/Dextrose (D5W + KCl 20 Meq) 1,000 ml @ 50 mls/hr Q20H IV Last administered on 10/14/16 08:41; Admin Dose 50 MLS/HR; Start 10/13/16 at 14: 00 DONNA HERNANDEZ NP Oct 14, 2016 21:44
[2016-10-14] MEDS: AMPHOTERICIN B LIPOSOME 300 MG in DEXTROSE 5% 300 ML IVPB SCH (23:27)
[2016-10-15] VITALS (92 sets, daily range): BP systolic 75–127; BP diastolic 44–85; PULSE 81–105; RESP 12–26
[2016-10-15] MEDS: IPRATROPIUM (HFA) 12.9 GM INHALER INH SCH ×6 (01:04→19:56)
[2016-10-15] MEDS: ALBUTEROL 18 GM INHALER INH SCH ×6 (01:05→19:56)
[2016-10-15] MEDS: D5W + KCL 20 MEQ 1,000 ML IV SCH (03:46)
[2016-10-15] MEDS: PANTOPRAZOLE 40 MG INJ IV SCH ×2 (05:10→17:04)
[2016-10-15] MEDS: LORAZEPAM 2 MG INJ IV PRN (05:10)
[2016-10-15 05:40] LABS: ABNORMAL IP MESSAGE 1; BASOPHILS % 0.1 % (0.0-2.0); EOSINOPHILS # 0.1 10^3/ul (0.0-0.5); EOSINOPHILS % 0.3 % (0.0-7.0); HEMATOCRIT 23.4 % (37.0-47.0); HEMOGLOBIN 7.4 g/dl (12.0-16.0); LYMPHOCYTES # 0.8 10^3/ul (0.8-2.9); LYMPHOCYTES % 3.7 % (15.0-51.0); MEAN CORPUSCULAR HEMOGLOBIN 28.1 pg (29.0-33.0); MEAN CORPUSCULAR HGB CONC 31.6 g/dl (32.0-37.0); MONOCYTE # 0.8 10^3/ul (0.3-0.9); MONOCYTES % 3.7 % (0.0-11.0); NEUTROPHIL # 19.9 10^3/ul (1.6-7.5); PLATELET COUNT 87 10^3/UL (140-415); RED BLOOD COUNT 2.63 10^6/ul (4.20-5.40); RED CELL DISTRIBUTION WIDTH 21.8 % (11.5-14.5); WHITE BLOOD COUNT 21.9 10^3/ul (4.8-10.8)
[2016-10-15] MEDS: FUROSEMIDE 20 MG INJ IV SCH ×4 (05:40→23:41)
[2016-10-15 05:48] LABS: INR 1.54; PROTIME 18.6 Sec (12.2-14.2); PT RATIO 1.5
[2016-10-15 05:59] LABS: NEUTROPHILS % 90.9 % (39.0-77.0); POSITIVE DIFF @See below
[2016-10-15 06:03] LABS: ALBUMIN 1.9 g/dl (3.3-4.9); ALBUMIN/GLOBULIN RATIO 0.54; BILIRUBIN,INDIRECT 0.1 mg/dl (0-1.1); BILIRUBIN,TOTAL 0.1 mg/dl (0.2-1.3); CALCIUM 7.2 mg/dl (8.4-10.2); CREATININE 0.64 mg/dl (0.44-1.00); POTASSIUM 3.3 mmol/L (3.5-5.1); TOTAL PROTEIN 5.4 g/dl (6.1-8.1)
[2016-10-15 06:29] LABS: MAGNESIUM 1.8 mg/dl (1.7-2.5)
[2016-10-15] MEDS: POTASSIUM CHLORIDE 50 ML IVPB PRN ×3 (06:36→08:48)
[2016-10-15] MEDS: DOCUSATE SODIUM 10 MG/ML (10ML CUP) NGT SCH ×2 (08:43→20:42)
[2016-10-15] MEDS: TIGECYCLINE 50 MG in SOD CHLORIDE 0.9% 100 ML IVPB SCH ×2 (08:43→20:42)
[2016-10-15] MEDS: SPIRONOLACTONE 50 MG TAB NGT SCH (08:43)
[2016-10-15] MEDS: BALSAM PERU/CASTOR OIL 60 GM TUBE TOP SCH (08:44)
[2016-10-15] MEDS: POLYETHYLENE GLYCOL 17 GM PACKET PO SCH (08:44)
--- NOTE | 2016-10-15 09:11 | PN ---
DATE: 10/15/2016 SUBJECTIVE DATA: The patient is critically ill on pressor support. The patient had a drain placed yesterday for abdominal abscess. No other events noted. No hemoptysis, hematemesis or hematochezia. OBJECTIVE DATA: VITAL SIGNS: Blood pressure 79/44, respirations 16, pulse 83, temperature 98.4. I's and O's: The patient has 5.6 L in, 3.6 L out. HEENT: Head is normocephalic. NECK: Supple. HEART: Regular rate. LUNGS: Diminished breath sounds base. ABDOMEN: Soft, nontender to palpation. Positive ostomy. EXTREMITIES: Negative for clubbing or cyanosis. Positive edema, diffuse anasarca. DERMATOLOGIC: Clean. No rashes. MUSCULOSKELETAL: No joint effusion. NEUROLOGIC: No change in exam. MEDICATIONS: Reviewed. LABORATORY AND DIAGNOSTIC DATA: Sodium 141, potassium 3.3, chloride 97, BUN 37, creatinine 0.64. White count 21.9, hemoglobin 7.4, hematocrit 23.4, platelet count is 87. The patient's chest x-ray was reviewed. ASSESSMENT AND PLAN: 1. Nonoliguric acute kidney injury. Etiology of acute kidney injury secondary to acute tubular necrosis. Renal function has been fluctuating, but appears to have stabilized last in the 48 hours. At this point, continue current treatment. Supportive care. Renally dose all meds. Monitor closely on diuretic therapy. 2. Hypernatremia, improved. Continue current free water flushes 400 cc q.4 hours. Will discontinue D5 water. 3. Hypokalemia. Etiology secondary to diuretic therapy. Continue K-protocol. Continue Aldactone. 4. Volume overload anasarca secondary to sepsis, capillary leak, common third-spacing. Continue diuretic therapy, being managed by Cardiology. 5. Metabolic hypokalemia. Continue to monitor. 6. Septic shock. Etiology is multifactorial, pneumonia. Continue broad-spectrum antibiotics and pressor support. 7. Anemia. Monitor H and H levels. 8. Mineral bone disorder. Continue to monitor counts. 9. Ventilator dependent respiratory failure. Vent settings reviewed. ABGs reviewed. Continue to monitor. Follow up with Pulmonary. 10. Perforated viscus. Status post colectomy with colostomy bag. Continue to monitor. Follow up with surgery. 11. Abdominal abscess, status post drain placement. 12. History of GLOBAL SALES MANAGER shunt. 13. Dysphagia status post percutaneous endoscopic gastrostomy. Continue tube feeding. Dictated By: Agustin Sanchez DO /rhina/candie /Document#: [id number]
[2016-10-15] MEDS: FENTAnyl (DRIP) 1000 mcg/100mL 100 ML IV SCH (11:49)
--- NOTE | 2016-10-15 12:24 | CONS ---
Date/Time of Note Date/Time of Note DATE: 10/15/16 TIME: 12:21 Consult Date/Type/Reason Admit Date/Time Sep 15, 2016 at 21:35 Initial Consult Date 09/21/16 Type of Consultation: Pulmonary Subjective Continues vasopressor support. No significant changes overnight. Objective Vital Signs Date Time Temp Pulse Resp B/P Pulse Ox O2 Delivery O2 Flow Rate FiO2 10/15/16 10:45 90 13 90/48 99 10/15/16 10:00 Mechanical Ventilator 10/15/16 09:30 40 10/15/16 08:00 99.4 10/13/16 16:29 100 Intake and Output 10/14/16 10/14/16 10/15/16 15:00 23:00 07:00 Intake Total 2191.23 ml 1888.12 ml 1486.25 ml Output Total 1050 ml 1262 ml 1123 ml Balance 1141.23 ml 626.12 ml 363.25 ml Exam PHYSICAL EXAMINATION GENERAL: Chronically ill-appearing lady on mechanical ventilation via tracheostomy VITAL SIGNS: see below. HEENT: Pupils equal, round, and reactive to light. Tracheostomy site clean and intact. CARDIAC: S1, S2, 1/6 systolic ejection murmur CHEST: Diminished air entry bilaterally. ABDOMEN: Mildly distended. Bowel sounds present no guarding or rebound EXTREMITIES: No cyanosis, clubbing edema +1 NEUROLOGIC: Generalized weakness Results/Medications Result Diagram: 10/15/16 0500 10/15/16 0500 Results 24 hrs Laboratory Tests Test 10/15/16 05:00 10/15/16 10:20 White Blood Count 21.9 #H Red Blood Count 2.63 L Hemoglobin 7.4 L Hematocrit 23.4 L Mean Corpuscular Volume 89.0 Mean Corpuscular Hemoglobin 28.1 L Mean Corpuscular Hemoglobin Concent 31.6 L Red Cell Distribution Width 21.8 H Platelet Count 87 #L Mean Platelet Volume Neutrophils % 90.9 H Lymphocytes % 3.7 L Monocytes % 3.7 Eosinophils % 0.3 Basophils % 0.1 Nucleated Red Blood Cells % 0.0 Neutrophils # 19.9 H Lymphocytes # 0.8 Monocytes # 0.8 Eosinophils # 0.1 Basophils # 0.0 Nucleated Red Blood Cells # 0.0 Prothrombin Time 18.6 H Prothrombin Time Ratio 1.5 INR International Normalized Ratio 1.54 Activated Partial Thromboplast Time 32.0 Sodium Level 141 Potassium Level 3.3 L Chloride Level 97 Carbon Dioxide Level 36 H Anion Gap 11 Blood Urea Nitrogen 37 H Creatinine 0.64 Glucose Level 159 Lactic Acid Level 1.9 Calcium Level 7.2 L Phosphorus Level 3.0 Magnesium Level 1.8 Total Bilirubin 0.1 L Direct Bilirubin 0.00 Indirect Bilirubin 0.1 Aspartate Amino Transf (AST/SGOT) 17 Alanine Aminotransferase (ALT/SGPT) 29 Alkaline Phosphatase 255 H B-Type Natriuretic Peptide 14211 H Total Protein 5.4 L Albumin 1.9 L Globulin 3.50 H Albumin/Globulin Ratio 0.54 Lab Scanned Report REFERENCE LAB Medications Current Medications Ondansetron HCl (Zofran Inj) 4 mg Q6H PRN IV NAUSEA AND/OR VOMITING Last administered on 09/26/16 09:23; Admin Dose 4 MG; Start 09/16/16 at 00:30 Acetaminophen (Tylenol Tab) 650 mg Q6H PRN PO PAIN LEVEL 1-3 OR FEVER Last administered on 10/08/16 12:47; Admin Dose 650 MG; Start 09/16/16 at 00:30 Polyethylene Glycol 17 gm 17 gm DAILY PO Last administered on 10/15/16 08:44; Admin Dose 17 GM; Start 09/20/16 at 11:00 Norepinephrine/ Dextrose (Levophed/D5W) 500 ml @ 1.87 mls/hr TITRATE IV Last administered on 10/14/16 06:28; Admin Dose 3.75 MLS/HR; Start 09/21/16 at 09:00 Acetaminophen/ Hydrocodone Bitart ([place] (5/325)) 1 tab Q4H PRN PO PAIN LEVEL 4 -7 Last administered on 09/28/16 21:20; Admin Dose 1 TAB; Start 09/21/16 at 15: 00 Acetaminophen/ Hydrocodone Bitart ([place] (5/325)) 2 tab Q4H PRN PO PAIN LEVEL 7 -10; Start 09/21/16 at 15:00 Hydromorphone HCl (Dilaudid) 0.5 mg Q2H PRN IV PAIN Last administered on 16:41; Admin Dose 0.5 MG; Start 09/21/16 at 15:00 Hydromorphone HCl (Dilaudid) 1 mg Q2H PRN IV PAIN Last administered on 23:57; Admin Dose 1 MG; Start 09/21/16 at 15:00 Docusate Sodium (Colace) 100 mg BID PRN PO CONSTIPATION; Start 09/21/16 at 15: 00 Enoxaparin Sodium (Lovenox) 40 mg DAILY SC ; Start 09/22/16 at 09:00; Status Future Hold Docusate Sodium (Colace Liquid Cup) 100 mg BID NGT Last administered on 08:43; Admin Dose 100 MG; Start 09/22/16 at 21:00 IV Flush (NS 10 ml) 10 ml PRN PRN IV IV PROTOCOL; Start 09/25/16 at 12:00 Spironolactone 50 mg 50 mg DAILY NGT Last administered on 10/15/16 08:43; Admin Dose 50 MG; Start 09/28/16 at 09:00 Dopamine HCl/ Dextrose 250 ml @ 6.053 mls/ hr TITRATE IV Last administered on 09/30/16 04:46; Admin Dose 6.053 MLS/HR; Start 09/29/16 at 11:00 Phenylephrine HCl/ Dextrose (Marcell-Syneph/D5W) 500 ml @ 75 mls/hr TITRATE IV ; Start 09/29/16 at 14:00 Furosemide (Lasix) 20 mg Q6 IV Last administered on 10/15/16 11:49; Admin Dose 20 MG; Start 10/05/16 at 13:00 Lorazepam 0.5 mg 0.5 mg Q6H PRN IV AGITATION/ANXIETY Last administered on 05:10; Admin Dose 0.5 MG; Start 10/05/16 at 23:00 Fentanyl 100 ml @ 2.5 mls/hr TITRATE IV Last administered on 10/15/16 11:49; Admin Dose 2.5 MLS/HR; Start 10/07/16 at 09:30 Tigecycline/ Sodium Chloride (Tygacil/NS) 100 ml @ 200 mls/hr Q12 IVPB Last administered on 10/15/16 08:43; Admin Dose 200 MLS/HR; Start 10/07/16 at 21:00 Pantoprazole 40 mg 40 mg BID@06,18 IV Last administered on 10/15/16 05:10; Admin Dose 40 MG; Start 10/09/16 at 18:00 Amphotericin B Liposome/Dextrose (Ambisome/D5W) 300 ml @ 150 mls/hr Q24H IVPB Last administered on 10/14/16t 23:27; Admin Dose 150 MLS/HR; Start 10/14/16 at 23: 30 Assessment/Plan Chief Complaint/Hosp Course IMP: 1. Septic Shock 2. Intra-abdominal abscess status post drainage with persistent leukocytosis 3. Likely endovascular infection with septic pulm emboli 4. VDRF 5. Hypernatremia 6. Hypokalemia 7. bilateral infiltrates, small effusions. RECS: 1. Continue ALFRED drainage 2. Vasopressors as needed to MAP > 65 mmHg 3. Vent support 4. Replete K+ and Mg 5. Agree with DNR status 6. Antibiotics per surgery/ primary team 35 min cc time Problems: DAMIEN GUADARRAMA MD, [facility] Oct 15, 2016 12:24
--- NOTE | 2016-10-15 12:38 | CONS ---
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 * s/p 09/21/16 Externalization of BAKER HELPER shunt. INDICATION: Possible BAKER HELPER shunt infection, ABD abscess * Extubated 10/03 * RE-intubated 09/29 * s/p Left THORA 10/01 * Extubated 10/03 * Re-Intubated 10/06 * 10/10/16 PEG EXAM: 70 yo F ->obtunted on the Vent HEENT:Orally intubated -> Vent Neck: trachea midline. Heart: S1, S2 CXT: chest rise symmetrical breath sounds clear, diminished basis. ABD: Soft, Wound Vac + Colostomy Extremities without cyanosis, (+) edema x4 = dependent edema ID ASSESSMENT 70 yo F w/PMHx ICH and BAKER HELPER shunt admit with: 1. Sepsis w/shock , s/p lactic acidosis => Back on pressors 10/06/16 * (+)Leukocytosis * (+)Fevers >101.5 10/07 2. s/p 09/21/16 Externalization of BAKER HELPER shunt. INDICATION: Possible BAKER HELPER shunt infection, ABD abscess * (+)Cryptococcal antigen serology 3. Intra-ABD abscess-> 10/13/16 CT guided drainage * s/p Perforated sigmoid colon w/abscess: POD#-> s/p 09/21/16 Sigmoid colectomy with performance of end colostomy (Reid's procedure), w/Lysis of adhesions. * MICRO: 09/23/16 BODY FLUID CULTURE Final Organism 1 ENTEROCOCCUS SPECIES Organism 2 COAGULASE NEGATIVE STAPH Organism 3 ALPHA HEMOLYTIC STREP SPP . VIRIDANS GROUP 4. Acute respiratory failure -> orally RE-intubated 10/06 * Likely endovascular infection with septic pulm emboli 5. CHF w/elevated BNP => (+)Anasarca w/Pleural effusions s/p CT drain 09/30 6. Bilateral PNA == Present on admission 7. NOW (+)VAP => Ventilator associated PNA == superimposed on pulmonary process POA * 10/02/ ETT aspirate (+) MOLD + yeast ->DDx contaminant, submit new sample * 10/07 ETT aspirate (+) MOLD + GNR ->Non Lactose Fermenting GNR: Identified as Cupriavidus pauculus, Previously known as Ralstonia paucula. * 10/08/16 CT CHEST: Multiple bilateral cavitary nodules...similar to the prior CT :DDx septic emboli, atypical (fungal, tuberculosis) infectious process, and possible neoplasm. * CT 09/30 THORA BODY FLUID CULTURE no growth * Fungal smears (-) to date * AFB SMEAR (-) x 3 Final ACID FAST BACILLI NONE SEEN 8. Pancytopenia - sepsis 9. Coagulopathy w/thrombocytopenia (-)MRSA Nares screen INVASIVES: PICC (09/25/16) , ETT, NGT, VPS, FC, CXT-Tube; PEG ABX ALLERGY: PCN CURRENT ABX => TYGACIL #9 + AMPHO B #2 TOTAL ABX DAY #27 s/p Cancidas #15 =>Cipro start 09/17 => VANCO IV + MERREM + FLAGYL #8-> DC'd 10/07 ID RECOMMENDATIONS 1. 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 AMPHO B IV started 3. Await micro ID of MOLD growing in respiratory culture x 2 4 Send cocci, aspergillosis, histoplasma serology -> Pending . . . . . Problems: Consultation Date/Type/Reason Admit Date/Time Sep 15, 2016 at 21:35 Initial Consult Date 09/21/16 Type of Consultation: ID Exam/Review of Systems Vital Signs Vitals Vital Signs Date Time Temp Pulse Resp B/P Pulse Ox O2 Delivery O2 Flow Rate FiO2 10/15/16 10:45 90 13 90/48 99 10/15/16 10:00 Mechanical Ventilator 10/15/16 09:30 40 10/15/16 08:00 99.4 10/13/16 16:29 100 Intake and Output 10/14/16 10/14/16 10/15/16 15:00 23:00 07:00 Intake Total 2191.23 ml 1888.12 ml 1486.25 ml Output Total 1050 ml 1262 ml 1123 ml Balance 1141.23 ml 626.12 ml 363.25 ml Results Result Diagram: 10/15/16 0500 10/15/16 0500 Results 24 hrs Laboratory Tests Test 10/15/16 05:00 10/15/16 10:20 White Blood Count 21.9 #H Red Blood Count 2.63 L Hemoglobin 7.4 L Hematocrit 23.4 L Mean Corpuscular Volume 89.0 Mean Corpuscular Hemoglobin 28.1 L Mean Corpuscular Hemoglobin Concent 31.6 L Red Cell Distribution Width 21.8 H Platelet Count 87 #L Mean Platelet Volume Neutrophils % 90.9 H Lymphocytes % 3.7 L Monocytes % 3.7 Eosinophils % 0.3 Basophils % 0.1 Nucleated Red Blood Cells % 0.0 Neutrophils # 19.9 H Lymphocytes # 0.8 Monocytes # 0.8 Eosinophils # 0.1 Basophils # 0.0 Nucleated Red Blood Cells # 0.0 Prothrombin Time 18.6 H Prothrombin Time Ratio 1.5 INR International Normalized Ratio 1.54 Activated Partial Thromboplast Time 32.0 Sodium Level 141 Potassium Level 3.3 L Chloride Level 97 Carbon Dioxide Level 36 H Anion Gap 11 Blood Urea Nitrogen 37 H Creatinine 0.64 Glucose Level 159 Lactic Acid Level 1.9 Calcium Level 7.2 L Phosphorus Level 3.0 Magnesium Level 1.8 Total Bilirubin 0.1 L Direct Bilirubin 0.00 Indirect Bilirubin 0.1 Aspartate Amino Transf (AST/SGOT) 17 Alanine Aminotransferase (ALT/SGPT) 29 Alkaline Phosphatase 255 H B-Type Natriuretic Peptide 29182 H Total Protein 5.4 L Albumin 1.9 L Globulin 3.50 H Albumin/Globulin Ratio 0.54 Lab Scanned Report REFERENCE LAB Medications Medications Current Medications Ondansetron HCl (Zofran Inj) 4 mg Q6H PRN IV NAUSEA AND/OR VOMITING Last administered on 09/26/16 09:23; Admin Dose 4 MG; Start 09/16/16 at 00:30 Acetaminophen (Tylenol Tab) 650 mg Q6H PRN PO PAIN LEVEL 1-3 OR FEVER Last administered on 10/08/16 12:47; Admin Dose 650 MG; Start 09/16/16 at 00:30 Polyethylene Glycol 17 gm 17 gm DAILY PO Last administered on 10/15/16 08:44; Admin Dose 17 GM; Start 09/20/16 at 11:00 Norepinephrine/ Dextrose (Levophed/D5W) 500 ml @ 1.87 mls/hr TITRATE IV Last administered on 10/14/16 06:28; Admin Dose 3.75 MLS/HR; Start 09/21/16 at 09:00 Acetaminophen/ Hydrocodone Bitart ([place] (5/325)) 1 tab Q4H PRN PO PAIN LEVEL 4 -7 Last administered on 09/28/16 21:20; Admin Dose 1 TAB; Start 09/21/16 at 15: 00 Acetaminophen/ Hydrocodone Bitart ([place] (5/325)) 2 tab Q4H PRN PO PAIN LEVEL 7 -10; Start 09/21/16 at 15:00 Hydromorphone HCl (Dilaudid) 0.5 mg Q2H PRN IV PAIN Last administered on 16:41; Admin Dose 0.5 MG; Start 09/21/16 at 15:00 Hydromorphone HCl (Dilaudid) 1 mg Q2H PRN IV PAIN Last administered on 23:57; Admin Dose 1 MG; Start 09/21/16 at 15:00 Docusate Sodium (Colace) 100 mg BID PRN PO CONSTIPATION; Start 09/21/16 at 15: 00 Enoxaparin Sodium (Lovenox) 40 mg DAILY SC ; Start 09/22/16 at 09:00; Status Future Hold Docusate Sodium (Colace Liquid Cup) 100 mg BID NGT Last administered on 08:43; Admin Dose 100 MG; Start 09/22/16 at 21:00 IV Flush (NS 10 ml) 10 ml PRN PRN IV IV PROTOCOL; Start 09/25/16 at 12:00 Spironolactone 50 mg 50 mg DAILY NGT Last administered on 10/15/16 08:43; Admin Dose 50 MG; Start 09/28/16 at 09:00 Dopamine HCl/ Dextrose 250 ml @ 6.053 mls/ hr TITRATE IV Last administered on 09/30/16 04:46; Admin Dose 6.053 MLS/HR; Start 09/29/16 at 11:00 Phenylephrine HCl/ Dextrose (Marcell-Syneph/D5W) 500 ml @ 75 mls/hr TITRATE IV ; Start 09/29/16 at 14:00 Furosemide (Lasix) 20 mg Q6 IV Last administered on 10/15/16 11:49; Admin Dose 20 MG; Start 10/05/16 at 13:00 Lorazepam 0.5 mg 0.5 mg Q6H PRN IV AGITATION/ANXIETY Last administered on 05:10; Admin Dose 0.5 MG; Start 10/05/16 at 23:00 Fentanyl 100 ml @ 2.5 mls/hr TITRATE IV Last administered on 10/15/16 11:49; Admin Dose 2.5 MLS/HR; Start 10/07/16 at 09:30 Tigecycline/ Sodium Chloride (Tygacil/NS) 100 ml @ 200 mls/hr Q12 IVPB Last administered on 10/15/16 08:43; Admin Dose 200 MLS/HR; Start 10/07/16 at 21:00 Pantoprazole 40 mg 40 mg BID@06,18 IV Last administered on 10/15/16 05:10; Admin Dose 40 MG; Start 10/09/16 at 18:00 Amphotericin B Liposome/Dextrose (Ambisome/D5W) 300 ml @ 150 mls/hr Q24H IVPB Last administered on 10/14/16 23:27; Admin Dose 150 MLS/HR; Start 10/14/16 at 23: 30 DONNA HERNANDEZ NP Oct 15, 2016 12:33
--- NOTE | 2016-10-15 14:33 | PN ---
Date/Time of Note Date/Time of Note DATE: 10/15/16 TIME: 14:23 Assessment/Plan Lines/Catheters IV Catheter Type (from Nrs): PICC Line Shore in Place (from Nrs): Yes Assessment/Plan Assessment/Plan [facility] Progress Note Date of Service: 10/15/2016 Place of service: [facility] ICU Today's Assessment & Plan: Overall has remained quasi stably critically ill. WBC up. ? fungal infection/ encephalopathy (w/u underway and antifungals added). Still has a chance to recover, but less as the number of days are passing without steady improvement. No indication for acute surgical intervention. Attempted to call Guille to update (bad medical receptionist assistant, [place] I did speak with her ex- and updated him fully. Previous assessment that still applies today: Overall stable but with failure to thrive. Abdomen continues to remain benign. Trach and PEG being used. Drainage of perihepatic fluid collection ongoing. Of great importance is adequate nutrition and I recommended that we continue the feeds through the PEG with a goal of 60 cc/h with guidance from our dietitian colleagues. With above assessment, I recommended the following for today: 1. Continue aggressive medical management with intubation; CODE STATUS at this point is DO NOT RESUSCITATE but with intubation being okay and no chest compressions or electric shocks. Chemical code is okay. 2. Continue wound VAC; dressing change 3 times a week 3. Cont aggressive pulmonary toilet 4. Cont Lasix as allowed by her clinical condition 5. Labs in am 6. Please maintain multidisciplinary discussion regarding fluid intake, CODE STATUS, and other major medical decisions since this is a fragile surgical patient with recent sepsis and shock; I changed code status to full code, but without chest compression or electric shock 7. Targeted antimicrobial therapy to culture results 8. PT/OT when patient is able to 9. Management of STOCK SELECTOR shunt per Dr. Miner (much appreciate the care) 10. Continue PEG gastric feeds with goal of 60 cc/h 11. Keep in the ICU 12. Social work and case management to please start working on disposition planning (rehab versus SNF) 13. Please note: Guille, who is the patient's decision maker currently, would like Mr. Yanez (patient's ex-) to still be involved in her care. He should still have full access to the hospital and patient according to Guille. 14. Tracheostomy management per Dr. Jones 15. Continue following GI recommendation for management of GI bleeding 16. Continue percutaneous drainage of perihepatic fluid collections and flushed drain. Thank you again for your great care of this very pleasant patient and wonderful family. If there are any questions, please feel free to call me at [phone]. Nature of presenting problem: High severity Please note that, given the extensive number of diagnoses or management options , the extensive amount and/or complexity of data needed to be reviewed, and I risk of complications and/or morbidity or mortality, this qualifies as high complexity type of decision-making. Disclaimer: Inadvertent spelling and grammatical errors are likely due to EHR/ dictation software use and do not reflect on the quality of delivered patient care. Also, please note that the electronic time recorded on this node does not necessarily reflect the actual time of the visit. Updated Clinical Summary: A very pleasant 70-year-old lady without significant known past medical history other than a STOCK SELECTOR shunt placement many years ago which she did not remember or report, presenting with what appears to be a sigmoid colon abscess or pericolonic abscess, which seemed to be a complication of diverticulitis. S/p IR drainage 09/09/16 with removal of 20 cc pus and placement of a 10 Fr. pigtail catheter at [facility]. D/c home 09/12/16. Re-presented to [facility] ED 09/15/16 after being diverted from [facility] (due to internal disaster diversion) where CT was done showing adequate placement of the percutaneous drain near the sigmoid colon and decompressed sigmoid colon abscess, no obvious free air or significant spillage of stool in the abdominal cavity, and incidental finding of tail of the STOCK SELECTOR shunt in the pelvis (new from right upper quadrant position of the same drain on the CT scan at [facility]). Transfer to [facility] 09/15/2016 for further cares. S/p upsizing of drain to 12 Fr pigtail on 09/17/16 (communication with colon demonstrated; no obvious free communication to rest of peritoneal space). Patient decompensated in the early hours of the morning on 09/21/2016 and had to be transferred to the intensive care unit with need for endotracheal tube intubation, central line placement, and resuscitation for treatment of shock with lactic acidosis and evidence of peritonitis and free air on the new chest, abdomen, and pelvis CT scan. S/p a rather challenging sigmoid colectomy with performance of end colostomy (Reid's procedure), takedown of splenic flexure of the colon, lysis of adhesions (60 minutes), and abdominal lavage at [facility] on 09/21/16; diagnosis of colon ischemia (distal transverse colon and descending colon) during reentry through recent laparotomy incision with exploration of abdominal cavity, takedown of colostomy, completion left hemicolectomy with resection of distal transverse colon, lysis of adhesions, abdominal lavage, performance of an end colostomy [facility] 09/24/16. Extubated post op evening of 09/25/16. Decompensation with intubation and restart of pressors . Right-sided pneumothorax after drainage of right pleural effusion requiring chest tube placement 09/30/2016. Extubated 10/03/2016. Decompensation with reintubation 10/06/16. Tracheostomy and PEG placed. Perihepatic fluid collections drained 10/13/2016. Cryptococcal antigen found in the urine 2016. Antifungal therapy started. Comorbidities: 1. Perforated sigmoid colon (see below) 2. Status post ventriculoperitoneal shunt placement. 3. Status post prior hysterectomy and bilateral salpingo-oophorectomy through Pfannenstiel incision 4. S/p IR drainage 09/09/16 with removal of 20 cc pus and placement of a 10 Fr. pigtail catheter at [facility]. 5. Readmission to [facility] 09/15/16 with upsizing of drain to 12 Fr pigtail on (communication with colon demonstrated; no obvious free communication to rest of peritoneal space). Septic shock with multiorgan failure 09/21/2016 requiring ICU admission with intubation and pressors. 6. S/p a rather challenging sigmoid colectomy with performance of end colostomy (Reid's procedure), takedown of splenic flexure of the colon, lysis of adhesions (60 minutes), and abdominal lavage at [facility] on 09/21/16 7. Colon ischemia (distal transverse colon and descending colon) 8. S/p reentry through recent laparotomy incision with exploration of abdominal cavity, takedown of colostomy, completion left hemicolectomy with resection of distal transverse colon, lysis of adhesions, abdominal lavage, performance of an end colostomy [facility] 09/24/16 9. Stage I/II decubitus pressure ulcers (10/11/2016 [facility] ICU) Subjective: Remain on a ventilator with tracheostomy without major events. Lethargic and not communicative, but with noticeably more energy level than the past few days.. Objective: Vitals: See below I's & O's: See below Exam: GENERAL: On exam, the patient was lying in bed and appeared to be breathing comfortably on the vent. No obvious acute distress. Appears emaciated. ABDOMEN: Soft, nontender and nondistended. Incision dressings are clean, dry and intact without any obvious evidence of underlying erythema, edema, discharge , or hernia. Surgical drain ss without any evidence of enteric contents. There are no peritoneal signs or guarding. Ostomy appears to be viable and productive with stool and air in the bag. Perihepatic drain showing pus. SKIN: Skin appears to be pink and feels warm to touch. NEUROLOGIC: Patient is arousable with voice but for the most part noncommunicative and does not respond to simple commands. Remains on the ventilator with tracheostomy tube and sedated. Labs: See below Exam/Review of Systems Vital Signs Vitals Vital Signs Date Time Temp Pulse Resp B/P Pulse Ox O2 Delivery O2 Flow Rate FiO2 10/15/16 14:00 99 17 103/53 99 Mechanical Ventilator 10/15/16 12:00 98.6 10/15/16 11:30 40 10/13/16 16:29 100 Intake and Output 10/14/16 10/14/16 10/15/16 15:00 23:00 07:00 Intake Total 2191.23 ml 1888.12 ml 1486.25 ml Output Total 1050 ml 1262 ml 1123 ml Balance 1141.23 ml 626.12 ml 363.25 ml Results Result Diagram: 10/15/16 0500 10/15/16 0500 ALEXSANDER DUARTE M.D. Oct 15, 2016 14:33
--- NOTE | 2016-10-15 16:32 | PN ---
Date/Time of Note Date/Time of Note DATE: 10/15/16 TIME: 16:32 Assessment/Plan Lines/Catheters IV Catheter Type (from Nrsg): PICC Line Shore in Place (from Nrsg): Yes Assessment/Plan Chief Complaint/Hosp Course This is a 70-year-old female admitted with a perforated colon and contained abscess underwent a drainage procedure on further colonic procedures patient is currently in the intensive care unit unable to come off the ventilator secondary to multiple medical problems Patient was extubated and had to be input intubated again has been treated for septic shock lactic acidosis peritonitis currently has an end colostomy Helio pouch and has undergone colon resection patient also has a right-sided chest tube for a pneumothorax She was reintubated again Status post tracheostomy Tracheal site clean We will continue pulmonary toilet Trach care Vent support Problems: Subjective 24 Hr Interval Summary Constitutional: improved Pain Control: mild Exam/Review of Systems Vital Signs Vitals Vital Signs Date Time Temp Pulse Resp B/P Pulse Ox O2 Delivery O2 Flow Rate FiO2 10/15/16 16:00 98.2 90 13 108/64 100 Mechanical Ventilator 10/15/16 15:54 40 10/13/16 16:29 100 Intake and Output 10/14/16 10/14/16 10/15/16 15:00 23:00 07:00 Intake Total 2191.23 ml 1888.12 ml 1486.25 ml Output Total 1050 ml 1262 ml 1123 ml Balance 1141.23 ml 626.12 ml 363.25 ml Exam ENMT: mucosa pink and moist, nl external ears & nose, nl lips & teeth, nl nasal mucosa & septum Neck: non-tender, supple Respiratory: clear to auscultation, normal air movement Cardiovascular: nl pulses, regular rate and rhythm Results Result Diagram: 10/15/16 0500 10/15/16 0500 GIL PINEDA MD Oct 15, 2016 16:32
--- NOTE | 2016-10-15 17:11 | PN ---
Date/Time of Note Date/Time of Note DATE: 10/15/16 TIME: 17:06 Assessment/Plan VTE Prophylaxis VTE Prophylaxis Intervention: SCD's Lines/Catheters IV Catheter Type (from Nrs): PICC Line Central line still needed: Yes (critically ill) Urinary Cath still in place: Yes Reason Cath still needed: other (indicate) (critically ill) Assessment/Plan Assessment/Plan 70 yo F with h/o hydrocephalus with previous VPS admitted for sigmoid abscess. hospital stay cb sepsis, colon perforation with multiple abd fluid collections , also recurrent respiratory failure warranting trach, pleural effusion with thora c/b by PTX 1. Sigmoid colon abscess, likely a complication of diverticulitis - s/p sigmoid colectomy with end colostomy (Reid's procedure) and adhesiolysis on 09/21/16 - cont abx and gen surg care 2. Ventilator dependent respiratory failure: sp trach 3 Left pleural effusion: Status post thoracentesis, complicated with pneumothorax status post placement of a chest tube, removal of chest tube per pulmonology 4. History of ICH, s/p VPS placement, with subsequent externalization of drain : Neurosurg on board -ID following closely. 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 ID started pt on ampho and has ordered additional CSF testing 5. Paroxysmal A. fib: Now in sinus rhythm status post amiodarone. Cardiology on board, 6. Acute renal insufficiency: Resolved. 7. s/p NSTEMI: Likely secondary to septic shock. 8. Volume overload state: Continue diuresis. 9. Anemia, likely a combination of iron deficiency and anemia of chronic disease: cont iron 10. Dysphagia Status post PEG tube placement Prophylaxis: SCDs CC time 30 minutes Subjective 24 Hr Interval Summary Free Text/Dictation Pt clinically stable. 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 Contents clear trach site c/d/i no rashes no edema Results Result Diagram: 10/15/16 0500 10/15/16 0500 Results 24 hrs Laboratory Tests Test 10/15/16 05:00 10/15/16 10:20 White Blood Count 21.9 #H Red Blood Count 2.63 L Hemoglobin 7.4 L Hematocrit 23.4 L Mean Corpuscular Volume 89.0 Mean Corpuscular Hemoglobin 28.1 L Mean Corpuscular Hemoglobin Concent 31.6 L Red Cell Distribution Width 21.8 H Platelet Count 87 #L Mean Platelet Volume Neutrophils % 90.9 H Lymphocytes % 3.7 L Monocytes % 3.7 Eosinophils % 0.3 Basophils % 0.1 Nucleated Red Blood Cells % 0.0 Neutrophils # 19.9 H Lymphocytes # 0.8 Monocytes # 0.8 Eosinophils # 0.1 Basophils # 0.0 Nucleated Red Blood Cells # 0.0 Prothrombin Time 18.6 H Prothrombin Time Ratio 1.5 INR International Normalized Ratio 1.54 Activated Partial Thromboplast Time 32.0 Sodium Level 141 Potassium Level 3.3 L Chloride Level 97 Carbon Dioxide Level 36 H Anion Gap 11 Blood Urea Nitrogen 37 H Creatinine 0.64 Glucose Level 159 Lactic Acid Level 1.9 Calcium Level 7.2 L Phosphorus Level 3.0 Magnesium Level 1.8 Total Bilirubin 0.1 L Direct Bilirubin 0.00 Indirect Bilirubin 0.1 Aspartate Amino Transf (AST/SGOT) 17 Alanine Aminotransferase (ALT/SGPT) 29 Alkaline Phosphatase 255 H B-Type Natriuretic Peptide 45936 H Total Protein 5.4 L Albumin 1.9 L Globulin 3.50 H Albumin/Globulin Ratio 0.54 Lab Scanned Report REFERENCE LAB Medications Medications Current Medications Ondansetron HCl (Zofran Inj) 4 mg Q6H PRN IV NAUSEA AND/OR VOMITING Last administered on 09/26/16 09:23; Admin Dose 4 MG; Start 09/16/16 at 00:30 Acetaminophen (Tylenol Tab) 650 mg Q6H PRN PO PAIN LEVEL 1-3 OR FEVER Last administered on 10/08/16 12:47; Admin Dose 650 MG; Start 09/16/16 at 00:30 Polyethylene Glycol 17 gm 17 gm DAILY PO Last administered on 10/15/16 08:44; Admin Dose 17 GM; Start 09/20/16 at 11:00 Norepinephrine/ Dextrose (Levophed/D5W) 500 ml @ 1.87 mls/hr TITRATE IV Last administered on 10/14/16 06:28; Admin Dose 3.75 MLS/HR; Start 09/21/16 at 09:00 Acetaminophen/ Hydrocodone Bitart ([place] (5/325)) 1 tab Q4H PRN PO PAIN LEVEL 4 -7 Last administered on 09/28/16 21:20; Admin Dose 1 TAB; Start 09/21/16 at 15: 00 Acetaminophen/ Hydrocodone Bitart ([place] (5/325)) 2 tab Q4H PRN PO PAIN LEVEL 7 -10; Start 09/21/16 at 15:00 Hydromorphone HCl (Dilaudid) 0.5 mg Q2H PRN IV PAIN Last administered on 16:41; Admin Dose 0.5 MG; Start 09/21/16 at 15:00 Hydromorphone HCl (Dilaudid) 1 mg Q2H PRN IV PAIN Last administered on 23:57; Admin Dose 1 MG; Start 09/21/16 at 15:00 Docusate Sodium (Colace) 100 mg BID PRN PO CONSTIPATION; Start 09/21/16 at 15: 00 Enoxaparin Sodium (Lovenox) 40 mg DAILY SC ; Start 09/22/16 at 09:00; Status Future Hold Docusate Sodium (Colace Liquid Cup) 100 mg BID NGT Last administered on 08:43; Admin Dose 100 MG; Start 09/22/16 at 21:00 IV Flush (NS 10 ml) 10 ml PRN PRN IV IV PROTOCOL; Start 09/25/16 at 12:00 Spironolactone 50 mg 50 mg DAILY NGT Last administered on 10/15/16 08:43; Admin Dose 50 MG; Start 09/28/16 at 09:00 Dopamine HCl/ Dextrose 250 ml @ 6.053 mls/ hr TITRATE IV Last administered on 09/30/16 04:46; Admin Dose 6.053 MLS/HR; Start 09/29/16 at 11:00 Phenylephrine HCl/ Dextrose (Marcell-Syneph/D5W) 500 ml @ 75 mls/hr TITRATE IV ; Start 09/29/16 at 14:00 Furosemide (Lasix) 20 mg Q6 IV Last administered on 10/15/16 11:49; Admin Dose 20 MG; Start 10/05/16 at 13:00 Lorazepam 0.5 mg 0.5 mg Q6H PRN IV AGITATION/ANXIETY Last administered on 05:10; Admin Dose 0.5 MG; Start 10/05/16 at 23:00 Fentanyl 100 ml @ 2.5 mls/hr TITRATE IV Last administered on 10/15/16 11:49; Admin Dose 2.5 MLS/HR; Start 10/07/16 at 09:30 Tigecycline/ Sodium Chloride (Tygacil/NS) 100 ml @ 200 mls/hr Q12 IVPB Last administered on 10/15/16 08:43; Admin Dose 200 MLS/HR; Start 10/07/16 at 21:00 Pantoprazole 40 mg 40 mg BID@06,18 IV Last administered on 10/15/16 05:10; Admin Dose 40 MG; Start 10/09/16 at 18:00 Amphotericin B Liposome/Dextrose (Ambisome/D5W) 300 ml @ 150 mls/hr Q24H IVPB Last administered on 10/14/16 23:27; Admin Dose 150 MLS/HR; Start 10/14/16 at 23: 30 ALEKS RAINEY MD Oct 15, 2016 17:11
[2016-10-15] MEDS ORDERED: POTASSIUM CHLORIDE 250 ML IVPB ONE (17:30)
--- NOTE | 2016-10-15 18:25 | CONS ---
Date/Time of Note Date/Time of Note DATE: 10/15/16 TIME: 18:24 Assessment/Plan Assessment/Plan Chief Complaint/Hosp Course Acute respiratory failure: now status post tracheostomy Acute diastolic heart failure: Secondary to volume resuscitation in setting of low albumin and third spacing. Significant anasarca. Diuresing Paroxysmal afib: converted on amiodarone. Currently in sinus rhythm Septic shock: intraabdominal abscess, bilateral pneumonia. S/p sigmoid colectomy. Tension pneumothorax: due to thoracentesis. s/p chest tube 09/30 NSTEMI: Trop mildly elevated likely type II in the setting of septic shock. Echo from 09/18 showed normal EF and no significant valvular disease. Repeat trop normalized Diverticulitis complicated by abscess s/p sigmoid colectomy and now colostomy Coagulopathy: ?DIC. 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 Detailed Summary Additional Comments Unable to obtain review of systems, patient on ventilator. Exam/Review of Systems Vital Signs Vitals Vital Signs Date Time Temp Pulse Resp B/P Pulse Ox O2 Delivery O2 Flow Rate FiO2 10/15/16 18:00 89 13 109/57 99 Mechanical Ventilator 10/15/16 17:57 40 10/15/16 16:00 98.2 10/13/16 16:29 100 Intake and Output 10/14/16 10/14/16 10/15/16 15:00 23:00 07:00 Intake Total 2191.23 ml 1888.12 ml 1486.25 ml Output Total 1050 ml 1262 ml 1123 ml Balance 1141.23 ml 626.12 ml 363.25 ml Exam Constitutional: NAD HEENT: NCAT Neck: No obvious JVD, tracheostomy Respiratory: diminished breath sounds, scattered crackles, no wheezes; chest tube noted Cardiovascular: Tachycardic, regular, no m/r/g, 2+ pitting BLE edema Gastrointestinal: non-tender, soft, grimaces to palpation Extremities: warm, no cyanosis or clubbing, LE SCDs in place Results Result Diagram: 10/15/16 0500 10/15/16 0500 Results 24 hrs Laboratory Tests Test 10/15/16 05:00 10/15/16 10:20 White Blood Count 21.9 #H Red Blood Count 2.63 L Hemoglobin 7.4 L Hematocrit 23.4 L Mean Corpuscular Volume 89.0 Mean Corpuscular Hemoglobin 28.1 L Mean Corpuscular Hemoglobin Concent 31.6 L Red Cell Distribution Width 21.8 H Platelet Count 87 #L Mean Platelet Volume Neutrophils % 90.9 H Lymphocytes % 3.7 L Monocytes % 3.7 Eosinophils % 0.3 Basophils % 0.1 Nucleated Red Blood Cells % 0.0 Neutrophils # 19.9 H Lymphocytes # 0.8 Monocytes # 0.8 Eosinophils # 0.1 Basophils # 0.0 Nucleated Red Blood Cells # 0.0 Prothrombin Time 18.6 H Prothrombin Time Ratio 1.5 INR International Normalized Ratio 1.54 Activated Partial Thromboplast Time 32.0 Sodium Level 141 Potassium Level 3.3 L Chloride Level 97 Carbon Dioxide Level 36 H Anion Gap 11 Blood Urea Nitrogen 37 H Creatinine 0.64 Glucose Level 159 Lactic Acid Level 1.9 Calcium Level 7.2 L Phosphorus Level 3.0 Magnesium Level 1.8 Total Bilirubin 0.1 L Direct Bilirubin 0.00 Indirect Bilirubin 0.1 Aspartate Amino Transf (AST/SGOT) 17 Alanine Aminotransferase (ALT/SGPT) 29 Alkaline Phosphatase 255 H B-Type Natriuretic Peptide 92462 H Total Protein 5.4 L Albumin 1.9 L Globulin 3.50 H Albumin/Globulin Ratio 0.54 Lab Scanned Report REFERENCE LAB Medications Medications Current Medications Ondansetron HCl (Zofran Inj) 4 mg Q6H PRN IV NAUSEA AND/OR VOMITING Last administered on 09/26/16 09:23; Admin Dose 4 MG; Start 09/16/16 at 00:30 Acetaminophen (Tylenol Tab) 650 mg Q6H PRN PO PAIN LEVEL 1-3 OR FEVER Last administered on 10/08/16 12:47; Admin Dose 650 MG; Start 09/16/16 at 00:30 Polyethylene Glycol 17 gm 17 gm DAILY PO Last administered on 10/15/16 08:44; Admin Dose 17 GM; Start 09/20/16 at 11:00 Norepinephrine/ Dextrose (Levophed/D5W) 500 ml @ 1.87 mls/hr TITRATE IV Last administered on 10/14/16 06:28; Admin Dose 3.75 MLS/HR; Start 09/21/16 at 09:00 Acetaminophen/ Hydrocodone Bitart ([place] (5/325)) 1 tab Q4H PRN PO PAIN LEVEL 4 -7 Last administered on 09/28/16 21:20; Admin Dose 1 TAB; Start 09/21/16 at 15: 00 Acetaminophen/ Hydrocodone Bitart ([place] (5/325)) 2 tab Q4H PRN PO PAIN LEVEL 7 -10; Start 09/21/16 at 15:00 Hydromorphone HCl (Dilaudid) 0.5 mg Q2H PRN IV PAIN Last administered on 16:41; Admin Dose 0.5 MG; Start 09/21/16 at 15:00 Hydromorphone HCl (Dilaudid) 1 mg Q2H PRN IV PAIN Last administered on 23:57; Admin Dose 1 MG; Start 09/21/16 at 15:00 Docusate Sodium (Colace) 100 mg BID PRN PO CONSTIPATION; Start 09/21/16 at 15: 00 Enoxaparin Sodium (Lovenox) 40 mg DAILY SC ; Start 09/22/16 at 09:00; Status Future Hold Docusate Sodium (Colace Liquid Cup) 100 mg BID NGT Last administered on 08:43; Admin Dose 100 MG; Start 09/22/16 at 21:00 IV Flush (NS 10 ml) 10 ml PRN PRN IV IV PROTOCOL; Start 09/25/16 at 12:00 Spironolactone 50 mg 50 mg DAILY NGT Last administered on 10/15/16 08:43; Admin Dose 50 MG; Start 09/28/16 at 09:00 Dopamine HCl/ Dextrose 250 ml @ 6.053 mls/ hr TITRATE IV Last administered on 09/30/16 04:46; Admin Dose 6.053 MLS/HR; Start 09/29/16 at 11:00 Phenylephrine HCl/ Dextrose (Marcell-Syneph/D5W) 500 ml @ 75 mls/hr TITRATE IV ; Start 09/29/16 at 14:00 Furosemide (Lasix) 20 mg Q6 IV Last administered on 10/15/16 17:07; Admin Dose 20 MG; Start 10/05/16 at 13:00 Lorazepam 0.5 mg 0.5 mg Q6H PRN IV AGITATION/ANXIETY Last administered on 05:10; Admin Dose 0.5 MG; Start 10/05/16 at 23:00 Fentanyl 100 ml @ 2.5 mls/hr TITRATE IV Last administered on 10/15/16 11:49; Admin Dose 2.5 MLS/HR; Start 10/07/16 at 09:30 Tigecycline/ Sodium Chloride (Tygacil/NS) 100 ml @ 200 mls/hr Q12 IVPB Last administered on 10/15/16 08:43; Admin Dose 200 MLS/HR; Start 10/07/16 at 21:00 Pantoprazole 40 mg 40 mg BID@06,18 IV Last administered on 10/15/16 17:04; Admin Dose 40 MG; Start 10/09/16 at 18:00 Amphotericin B Liposome/Dextrose (Ambisome/D5W) 300 ml @ 150 mls/hr Q24H IVPB Last administered on 10/14/16 23:27; Admin Dose 150 MLS/HR; Start 10/14/16 at 23: 30 AVINASH FERNANDEZ MD Oct 15, 2016 18:25
[2016-10-15] MEDS: AMPHOTERICIN B LIPOSOME 300 MG in DEXTROSE 5% 300 ML IVPB SCH (23:41)
[2016-10-16] VITALS (74 sets, daily range): BP systolic 77–123; BP diastolic 43–78; PULSE 81–109; RESP 11–22
[2016-10-16] MEDS: ALBUTEROL 18 GM INHALER INH SCH ×6 (01:10→21:07)
[2016-10-16] MEDS: IPRATROPIUM (HFA) 12.9 GM INHALER INH SCH ×6 (01:10→21:07)
[2016-10-16 02:06] LABS: CSF COLOR COLORLESS
[2016-10-16 02:07] LABS: CSF#TUBES REC'D 1
[2016-10-16 02:27] LABS: GLUCOSE,CSF 84 mg/dl (50-80)
[2016-10-16 03:03] LABS: CSF#TUBE COUNT TUBE#1
[2016-10-16] MEDS: PANTOPRAZOLE 40 MG INJ IV SCH ×2 (05:15→18:56)
[2016-10-16] MEDS: FUROSEMIDE 20 MG INJ IV SCH ×3 (05:17→18:56)
[2016-10-16 05:43] LABS: ABNORMAL IP MESSAGE 1; BASOPHILS % 0.2 % (0.0-2.0); EOSINOPHILS # 0.1 10^3/ul (0.0-0.5); EOSINOPHILS % 0.3 % (0.0-7.0); HEMATOCRIT 23.2 % (37.0-47.0); HEMOGLOBIN 7.4 g/dl (12.0-16.0); LYMPHOCYTES # 0.8 10^3/ul (0.8-2.9); LYMPHOCYTES % 4.3 % (15.0-51.0); MEAN CORPUSCULAR HEMOGLOBIN 28.4 pg (29.0-33.0); MEAN CORPUSCULAR HGB CONC 31.9 g/dl (32.0-37.0); MEAN CORPUSCULAR VOLUME 88.9 fl (82.0-101.0); MONOCYTE # 0.8 10^3/ul (0.3-0.9); NEUTROPHIL # 17.7 10^3/ul (1.6-7.5); NEUTROPHILS % 89.5 % (39.0-77.0); PLATELET COUNT 74 10^3/UL (140-415); RED BLOOD COUNT 2.61 10^6/ul (4.20-5.40); RED CELL DISTRIBUTION WIDTH 21.2 % (11.5-14.5); WHITE BLOOD COUNT 19.7 10^3/ul (4.8-10.8)
[2016-10-16 06:17] LABS: POSITIVE DIFF @See below
[2016-10-16 06:46] LABS: CALCIUM 7.1 mg/dl (8.4-10.2); CREATININE 0.54 mg/dl (0.44-1.00); MAGNESIUM 1.9 mg/dl (1.7-2.5); PHOSPHORUS 3.6 mg/dl (2.5-4.9); POTASSIUM 3.3 mmol/L (3.5-5.1)
--- NOTE | 2016-10-16 07:39 | PN ---
DATE: 10/16/2016 SUBJECTIVE DATA: The patient remains critical but stable. Currently off pressor support. No other events noted. No hemoptysis, hematemesis, hematochezia. OBJECTIVE DATA: VITAL SIGNS: Blood pressure 97/60, respirations 14, pulse 97, temperature 98.8. Intake and output: The patient has 4.42 L in, 4.3 L out. HEENT: Head is normocephalic. NECK: Supple. HEART: Regular rate. LUNGS: Diminished breath sounds at the base. ABDOMEN: Soft, nontender to palpation. No rebound or guarding. EXTREMITIES: Negative for clubbing, cyanosis. Positive edema. DERMATOLOGIC: No rashes. MUSCULOSKELETAL: No joint effusion. NEUROLOGIC: No change in exam. The patient's medications have been reviewed. LABORATORY AND DIAGNOSTIC DATA: White count 19.7, hemoglobin 10.4, hematocrit 23.2; platelet count is 74. Sodium 141, potassium 3.3, chloride 97. BUN 37, creatinine 0.64. ASSESSMENT AND PLAN: 1. Nonoliguric acute kidney injury. Etiology secondary to acute tubular necrosis. Renal function appears to have stabilized. At this point continue current treatment plan, supportive care, and renally dose all medications. 2. Hypernatremia, improved. Continue free water flushes. 3. Hypokalemia. Etiology secondary to diuretic therapy. Continue potassium protocol. 4. Volume overload, anasarca secondary to sepsis, leak. Continue diuretic therapy. 5. Septic shock. The etiology is multifactorial secondary to pneumonia. The patient is on broad-spectrum antibiotics. Currently off presser support. Monitor closely. 6. Anemia. Monitor hemoglobin and hematocrit levels. 7. Mineral bone disorder. Monitor calcium and phosphorus levels. 8. Ventilator-dependent respiratory failure. Ventilator settings have been reviewed. Arterial blood gases reviewed. Continue to monitor. 9. Perforated viscus, status post colectomy with colostomy bag. Continue to monitor. Follow up with Surgery. 10. Abdominal abscess, status post drain placement. 11. Dysphagia, status post percutaneous endoscopic gastrostomy. Continue tube feeding. 12. Status post ventriculoperitoneal shunt. Dictated By: Agustin Sanchez DO /rhina/thad /Document#: [id number]
[2016-10-16] MEDS: DOCUSATE SODIUM 10 MG/ML (10ML CUP) NGT SCH ×2 (09:00→21:00)
[2016-10-16] MEDS: POLYETHYLENE GLYCOL 17 GM PACKET PO SCH (09:00)
[2016-10-16] MEDS: TIGECYCLINE 50 MG in SOD CHLORIDE 0.9% 100 ML IVPB SCH ×2 (09:46→22:49)
[2016-10-16] MEDS: BALSAM PERU/CASTOR OIL 60 GM TUBE TOP SCH (09:49)
[2016-10-16] MEDS: SPIRONOLACTONE 50 MG TAB NGT SCH (09:49)
[2016-10-16] MEDS: POTASSIUM CHLORIDE 50 ML IVPB PRN ×3 (10:23→12:46)
--- NOTE | 2016-10-16 11:23 | PN ---
Date/Time of Note Date/Time of Note DATE: 10/16/16 TIME: 11:22 Assessment/Plan VTE Prophylaxis VTE Prophylaxis Intervention: other Lines/Catheters IV C[facility]ter Type [facility]from [facility]): PICC Line Central line still needed: No Urinary Cath still in place: No Assessment/Plan Chief Complaint/Hosp Course This is a 70-year-old female admitted with a perforated colon and contained abscess underwent a drainage procedure on further colonic procedures patient is currently in the intensive care unit unable to come off the ventilator secondary to multiple medical problems Patient was extubated and had to be input intubated again has been treated for septic shock lactic acidosis peritonitis currently has an end colostomy Helio pouch and has undergone colon resection patient also has a right-sided chest tube for a pneumothorax She was reintubated again Status post tracheostomy Tracheal site clean We will continue pulmonary toilet Trach care Vent support Problems: Subjective 24 Hr Interval Summary Gastrointestinal: no complaints Genitourinary: no complaints Musculoskeletal: no complaints Skin: no complaints Neurologic: no complaints Exam/Review of Systems Vital Signs Vitals Vital Signs Date Time Temp Pulse Resp B/P Pulse Ox O2 Delivery O2 Flow Rate FiO2 10/16/16 09:31 97 17 100 40 10/16/16 09:00 97/50 Mechanical Ventilator 10/16/16 08:00 99.5 10/13/16 16:29 100 Intake and Output 10/15/16 10/15/16 10/16/16 15:00 23:00 07:00 Intake Total 1546.2 ml 1481.82 ml 1143.67 ml Output Total 1585 ml 1280 ml 1440 ml Balance -38.8 ml 201.82 ml -296.33 ml Exam Neck: non-tender, supple Respiratory: clear to auscultation, normal air movement Cardiovascular: nl pulses, regular rate and rhythm Gastrointestinal: nl liver, spleen, non-tender, soft Results Result Diagram: 10/16/16 0330 10/16/16 0330 Results 24 hrs Laboratory Tests Test 10/15/16 23:15 10/16/16 03:30 Pathologist Review (Hematology) CSF Tubes Submitted 1 CSF Volume 52.0 CSF Appearance CLEAR CSF Color COLORLESS CSF WBC 1 CSF RBC 0 CSF Cell Count Tube # TUBE#1 CSF Mononuclear Cells % (Auto) 0.0 CSF Polynuclear WBCs (%) 100.0 CSF Glucose 84 H CSF Total Protein 29 White Blood Count 19.7 H Red Blood Count 2.61 L Hemoglobin 7.4 L Hematocrit 23.2 L Mean Corpuscular Volume 88.9 Mean Corpuscular Hemoglobin 28.4 L Mean Corpuscular Hemoglobin Concent 31.9 L Red Cell Distribution Width 21.2 H Platelet Count 74 L Mean Platelet Volume Neutrophils % 89.5 H Lymphocytes % 4.3 L Monocytes % 4.0 Eosinophils % 0.3 Basophils % 0.2 Nucleated Red Blood Cells % 0.0 Neutrophils # 17.7 H Lymphocytes # 0.8 Monocytes # 0.8 Eosinophils # 0.1 Basophils # 0.0 Nucleated Red Blood Cells # 0.0 Sodium Level 138 Potassium Level 3.3 L Chloride Level 94 L Carbon Dioxide Level 35 H Anion Gap 12 Blood Urea Nitrogen 38 H Creatinine 0.54 Glucose Level 133 Calcium Level 7.1 L Phosphorus Level 3.6 Magnesium Level 1.9 Medications Medications Current Medications Ondansetron HCl (Zofran Inj) 4 mg Q6H PRN IV NAUSEA AND/OR VOMITING Last administered on 09/26/16 09:23; Admin Dose 4 MG; Start 09/16/16 at 00:30 Acetaminophen (Tylenol Tab) 650 mg Q6H PRN PO PAIN LEVEL 1-3 OR FEVER Last administered on 10/08/16 12:47; Admin Dose 650 MG; Start 09/16/16 at 00:30 Polyethylene Glycol 17 gm 17 gm DAILY PO Last administered on 10/15/16 08:44; Admin Dose 17 GM; Start 09/20/16 at 11:00 Norepinephrine/ Dextrose (Levophed/D5W) 500 ml @ 1.87 mls/hr TITRATE IV Last administered on 10/14/16 06:28; Admin Dose 3.75 MLS/HR; Start 09/21/16 at 09:00 Acetaminophen/ Hydrocodone Bitart ([place] (5/325)) 1 tab Q4H PRN PO PAIN LEVEL 4 -7 Last administered on 09/28/16 21:20; Admin Dose 1 TAB; Start 09/21/16 at 15: 00 Acetaminophen/ Hydrocodone Bitart ([place] (5/325)) 2 tab Q4H PRN PO PAIN LEVEL 7 -10; Start 09/21/16 at 15:00 Hydromorphone HCl (Dilaudid) 0.5 mg Q2H PRN IV PAIN Last administered on 16:41; Admin Dose 0.5 MG; Start 09/21/16 at 15:00 Hydromorphone HCl (Dilaudid) 1 mg Q2H PRN IV PAIN Last administered on 23:57; Admin Dose 1 MG; Start 09/21/16 at 15:00 Docusate Sodium (Colace) 100 mg BID PRN PO CONSTIPATION; Start 09/21/16 at 15: 00 Enoxaparin Sodium (Lovenox) 40 mg DAILY SC ; Start 09/22/16 at 09:00; Status Future Hold Docusate Sodium (Colace Liquid Cup) 100 mg BID NGT Last administered on 20:42; Admin Dose 100 MG; Start 09/22/16 at 21:00 IV Flush (NS 10 ml) 10 ml PRN PRN IV IV PROTOCOL; Start 09/25/16 at 12:00 Spironolactone 50 mg 50 mg DAILY NGT Last administered on 10/16/16 09:49; Admin Dose 50 MG; Start 09/28/16 at 09:00 Dopamine HCl/ Dextrose 250 ml @ 6.053 mls/ hr TITRATE IV Last administered on 09/30/16 04:46; Admin Dose 6.053 MLS/HR; Start 09/29/16 at 11:00 Phenylephrine HCl/ Dextrose (Marcell-Syneph/D5W) 500 ml @ 75 mls/hr TITRATE IV ; Start 09/29/16 at 14:00 Furosemide (Lasix) 20 mg Q6 IV Last administered on 10/16/16 05:17; Admin Dose 20 MG; Start 10/05/16 at 13:00 Lorazepam 0.5 mg 0.5 mg Q6H PRN IV AGITATION/ANXIETY Last administered on 05:10; Admin Dose 0.5 MG; Start 10/05/16 at 23:00 Fentanyl 100 ml @ 2.5 mls/hr TITRATE IV Last administered on 10/15/16 11:49; Admin Dose 2.5 MLS/HR; Start 10/07/16 at 09:30 Tigecycline/ Sodium Chloride (Tygacil/NS) 100 ml @ 200 mls/hr Q12 IVPB Last administered on 8/9/17at 09:46; Admin Dose 200 MLS/HR; Start 10/07/16 at 21:00 Pantoprazole 40 mg 40 mg BID@06,18 IV Last administered on 10/16/16 05:15; Admin Dose 40 MG; Start 10/09/16 at 18:00 Amphotericin B Liposome/Dextrose (Ambisome/D5W) 300 ml @ 150 mls/hr Q24H IVPB Last administered on 10/15/16 23:41; Admin Dose 150 MLS/HR; Start 10/14/16 at 23: 30 GIL PINEDA MD Oct 16, 2016 11:23
--- NOTE | 2016-10-16 14:12 | PN ---
Date/Time of Note Date/Time of Note DATE: 10/16/16 TIME: 14:09 Assessment/Plan VTE Prophylaxis VTE Prophylaxis Intervention: SCD's Lines/Catheters IV Catheter Type (from Nrs): PICC Line Central line still needed: Yes Urinary Cath still in place: Yes Reason Cath still needed: other (indicate) (critically ill) Assessment/Plan Assessment/Plan 70 yo F with h/o hydrocephalus with previous VPS admitted for sigmoid abscess. hospital stay cb sepsis, colon perforation with multiple abd fluid collections , also recurrent respiratory failure warranting trach, pleural effusion with thora c/b by PTX 1. Sigmoid colon abscess, likely a complication of diverticulitis - s/p sigmoid colectomy with end colostomy (Reid's procedure) and adhesiolysis on 09/21/16 - cont abx and gen surg care 2. Ventilator dependent respiratory failure: sp trach 3 Left pleural effusion: Status post thoracentesis, complicated with pneumothorax status post placement of a chest tube, removal of chest tube per pulmonology 4. History of ICH, s/p VPS placement, with subsequent externalization of drain : Neurosurg on board -ID following closely. 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 ID started pt on ampho and has ordered additional CSF testing 5. Paroxysmal A. fib: Now in sinus rhythm status post amiodarone. Cardiology on board 6. Acute renal insufficiency: Resolved. 7. s/p NSTEMI: Likely secondary to septic shock. 8. Volume overload state: Continue diuresis. 9. Anemia, likely a combination of iron deficiency and anemia of chronic disease: cont iron 10. Dysphagia Status post PEG tube placement Prophylaxis: SCDs CC time 30 minutes consider transfer to floor tomorrow if able to stay off pressors x 24 hours and if sedation can be weaned Subjective 24 Hr Interval Summary Free Text/Dictation Pressors weaned off overnight Exam/Review of Systems Vital Signs Vitals Vital Signs Date Time Temp Pulse Resp B/P Pulse Ox O2 Delivery O2 Flow Rate FiO2 10/16/16 13:30 99 16 106/51 100 10/16/16 13:00 Mechanical Ventilator 10/16/16 12:00 98.5 10/16/16 12:00 40 10/13/16 16:29 100 Intake and Output 10/15/16 10/15/16 10/16/16 15:00 23:00 07:00 Intake Total 1546.2 ml 1481.82 ml 1143.67 ml Output Total 1585 ml 1280 ml 1440 ml Balance -38.8 ml 201.82 ml -296.33 ml Exam sedated, trach site c/d/i no mrg ostomy with stool in collection bag no rashes no le edema Results Result Diagram: 10/16/16 0330 10/16/16 0330 Results 24 hrs Laboratory Tests Test 10/15/16 23:15 10/16/16 03:30 Pathologist Review (Hematology) CSF Tubes Submitted 1 CSF Volume 52.0 CSF Appearance CLEAR CSF Color COLORLESS CSF WBC 1 CSF RBC 0 CSF Cell Count Tube # TUBE#1 CSF Mononuclear Cells % (Auto) 0.0 CSF Polynuclear WBCs (%) 100.0 CSF Glucose 84 H CSF Total Protein 29 White Blood Count 19.7 H Red Blood Count 2.61 L Hemoglobin 7.4 L Hematocrit 23.2 L Mean Corpuscular Volume 88.9 Mean Corpuscular Hemoglobin 28.4 L Mean Corpuscular Hemoglobin Concent 31.9 L Red Cell Distribution Width 21.2 H Platelet Count 74 L Mean Platelet Volume Neutrophils % 89.5 H Lymphocytes % 4.3 L Monocytes % 4.0 Eosinophils % 0.3 Basophils % 0.2 Nucleated Red Blood Cells % 0.0 Neutrophils # 17.7 H Lymphocytes # 0.8 Monocytes # 0.8 Eosinophils # 0.1 Basophils # 0.0 Nucleated Red Blood Cells # 0.0 Sodium Level 138 Potassium Level 3.3 L Chloride Level 94 L Carbon Dioxide Level 35 H Anion Gap 12 Blood Urea Nitrogen 38 H Creatinine 0.54 Glucose Level 133 Calcium Level 7.1 L Phosphorus Level 3.6 Magnesium Level 1.9 Medications Medications Current Medications Ondansetron HCl (Zofran Inj) 4 mg Q6H PRN IV NAUSEA AND/OR VOMITING Last administered on 09/26/16 09:23; Admin Dose 4 MG; Start 09/16/16 at 00:30 Acetaminophen (Tylenol Tab) 650 mg Q6H PRN PO PAIN LEVEL 1-3 OR FEVER Last administered on 10/08/16 12:47; Admin Dose 650 MG; Start 09/16/16 at 00:30 Polyethylene Glycol 17 gm 17 gm DAILY PO Last administered on 10/15/16 08:44; Admin Dose 17 GM; Start 09/20/16 at 11:00 Norepinephrine/ Dextrose (Levophed/D5W) 500 ml @ 1.87 mls/hr TITRATE IV Last administered on 10/14/16 06:28; Admin Dose 3.75 MLS/HR; Start 09/21/16 at 09:00 Acetaminophen/ Hydrocodone Bitart ([place] (5/325)) 1 tab Q4H PRN PO PAIN LEVEL 4 -7 Last administered on 09/28/16 21:20; Admin Dose 1 TAB; Start 09/21/16 at 15: 00 Acetaminophen/ Hydrocodone Bitart ([place] (5/325)) 2 tab Q4H PRN PO PAIN LEVEL 7 -10; Start 09/21/16 at 15:00 Hydromorphone HCl (Dilaudid) 0.5 mg Q2H PRN IV PAIN Last administered on 16:41; Admin Dose 0.5 MG; Start 09/21/16 at 15:00 Hydromorphone HCl (Dilaudid) 1 mg Q2H PRN IV PAIN Last administered on 23:57; Admin Dose 1 MG; Start 09/21/16 at 15:00 Docusate Sodium (Colace) 100 mg BID PRN PO CONSTIPATION; Start 09/21/16 at 15: 00 Enoxaparin Sodium (Lovenox) 40 mg DAILY SC ; Start 09/22/16 at 09:00; Status Future Hold Docusate Sodium (Colace Liquid Cup) 100 mg BID NGT Last administered on 20:42; Admin Dose 100 MG; Start 09/22/16 at 21:00 IV Flush (NS 10 ml) 10 ml PRN PRN IV IV PROTOCOL; Start 09/25/16 at 12:00 Spironolactone 50 mg 50 mg DAILY NGT Last administered on 10/16/16 09:49; Admin Dose 50 MG; Start 09/28/16 at 09:00 Dopamine HCl/ Dextrose 250 ml @ 6.053 mls/ hr TITRATE IV Last administered on 09/30/16 04:46; Admin Dose 6.053 MLS/HR; Start 09/29/16 at 11:00 Phenylephrine HCl/ Dextrose (Marcell-Syneph/D5W) 500 ml @ 75 mls/hr TITRATE IV ; Start 09/29/16 at 14:00 Furosemide (Lasix) 20 mg Q6 IV Last administered on 10/16/16 05:17; Admin Dose 20 MG; Start 10/05/16 at 13:00 Lorazepam 0.5 mg 0.5 mg Q6H PRN IV AGITATION/ANXIETY Last administered on 05:10; Admin Dose 0.5 MG; Start 10/05/16 at 23:00 Fentanyl 100 ml @ 2.5 mls/hr TITRATE IV Last administered on 10/15/16 11:49; Admin Dose 2.5 MLS/HR; Start 10/07/16 at 09:30 Tigecycline/ Sodium Chloride (Tygacil/NS) 100 ml @ 200 mls/hr Q12 IVPB Last administered on 10/16/16 09:46; Admin Dose 200 MLS/HR; Start 10/07/16 at 21:00 Pantoprazole 40 mg 40 mg BID@06,18 IV Last administered on 10/16/16 05:15; Admin Dose 40 MG; Start 10/09/16 at 18:00 Amphotericin B Liposome/Dextrose (Ambisome/D5W) 300 ml @ 150 mls/hr Q24H IVPB Last administered on 10/15/16 23:41; Admin Dose 150 MLS/HR; Start 10/14/16 at 23: 30 ALEKS RANIEY MD Oct 16, 2016 14:12
--- NOTE | 2016-10-16 16:04 | CONS ---
Date/Time of Note Date/Time of Note DATE: 10/16/16 TIME: 16:02 Assessment/Plan Assessment/Plan Chief Complaint/Hosp Course ID PROGRESS NOTE CURRENT ABX ==> TYGACIL #10 + AMPHO B #2 TOTAL ABX DAY #28 s/p Cancidas #15 =>Cipro start 09/17 => VANCO IV + MERREM + FLAGYL #8-> DC'd 10/07 24H INTERVAL SUMMARY * (+)Cryptococcal antigen serology =>Possible meningitis hx of VPS vs ? Disseminated crypto * CSF fluid only 1 WBC = not compelling -- await cryptococcal ag * WBC up to HOSPITAL EVENTS: * s/p 09/21/16 Sigmoid colectomy with performance of end colostomy (Reid's procedure), w/Lysis of adhesions. * s/p 09/21/16 Externalization of CREDENTIALING MANAGER shunt. INDICATION: Possible CREDENTIALING MANAGER shunt infection, ABD abscess * Extubated 10/03 * RE-intubated 09/29 * s/p Left THORA 10/01 * Extubated 10/03 * Re-Intubated 10/06 * 10/10/16 PEG EXAM: 70 yo F ->obtunted on the Vent HEENT:Orally intubated -> Vent Neck: trachea midline. Heart: S1, S2 CXT: chest rise symmetrical breath sounds clear, diminished basis. ABD: Soft, Wound Vac + Colostomy Extremities without cyanosis, (+) edema x4 = dependent edema ID ASSESSMENT 70 yo F w/PMHx ICH and CREDENTIALING MANAGER shunt admit with: 1. Sepsis w/shock , s/p lactic acidosis => Back on pressors 10/06/16 * (+)Leukocytosis * (+)Fevers >101.5 10/07 2. s/p 09/21/16 Externalization of CREDENTIALING MANAGER shunt. INDICATION: Possible CREDENTIALING MANAGER shunt infection, ABD abscess * (+)Cryptococcal antigen serology 3. Intra-ABD abscess-> 10/13/16 CT guided drainage * s/p Perforated sigmoid colon w/abscess: POD#-> s/p 09/21/16 Sigmoid colectomy with performance of end colostomy (Reid's procedure), w/Lysis of adhesions. * MICRO: 09/23/16 BODY FLUID CULTURE Final Organism 1 ENTEROCOCCUS SPECIES Organism 2 COAGULASE NEGATIVE STAPH Organism 3 ALPHA HEMOLYTIC STREP SPP . VIRIDANS GROUP 4. Acute respiratory failure -> orally RE-intubated 10/06 * Likely endovascular infection with septic pulm emboli 5. CHF w/elevated BNP => (+)Anasarca w/Pleural effusions s/p CT drain 09/30 6. Bilateral PNA == Present on admission 7. NOW (+)VAP => Ventilator associated PNA == superimposed on pulmonary process POA * 10/02/ ETT aspirate (+) MOLD + yeast ->DDx contaminant, submit new sample * 10/07 ETT aspirate (+) MOLD + GNR ->Non Lactose Fermenting GNR: Identified as Cupriavidus pauculus, Previously known as Ralstonia paucula. * 10/08/16 CT CHEST: Multiple bilateral cavitary nodules...similar to the prior CT :DDx septic emboli, atypical (fungal, tuberculosis) infectious process, and possible neoplasm. * CT 09/30 THORA BODY FLUID CULTURE no growth * Fungal smears (-) to date * AFB SMEAR (-) x 3 Final ACID FAST BACILLI NONE SEEN 8. Pancytopenia - sepsis 9. Coagulopathy w/thrombocytopenia (-)MRSA Nares screen INVASIVES: PICC (09/25/16) , ETT, NGT, VPS, FC, CXT-Tube; PEG ABX ALLERGY: PCN CURRENT ABX => TYGACIL #10 + AMPHO B #3 TOTAL ABX DAY #28 s/p Cancidas #15 =>Cipro start 09/17 => VANCO IV + MERREM + FLAGYL #8-> DC'd 10/07 ID RECOMMENDATIONS 1. (+)Cryptococcal antigen serology =>Possible meningitis hx of VPS vs ? Disseminated crypto * CSF fluid only 1 WBC = not compelling -- await cryptococcal ag * Pending Michaela Ink, Cryptococcal antigen, Lactate, IgG, IgS, IgM 2. AMPHO B IV started 3. Await micro ID of MOLD growing in respiratory culture x 2 4 Send cocci, aspergillosis, histoplasma serology -> Pending . . . . . Problems: Consultation Date/Type/Reason Admit Date/Time Sep 15, 2016 at 21:35 Initial Consult Date 09/21/16 Type of Consultation: ID Exam/Review of Systems Vital Signs Vitals Vital Signs Date Time Temp Pulse Resp B/P Pulse Ox O2 Delivery O2 Flow Rate FiO2 10/16/16 15:30 103 21 108/54 100 10/16/16 15:00 Mechanical Ventilator 10/16/16 14:40 40 10/16/16 12:00 98.5 10/13/16 16:29 100 Intake and Output 10/15/16 10/15/16 10/16/16 14:59 22:59 06:59 Intake Total 1486.2 ml 1075.57 ml 1607.92 ml Output Total 1510 ml 1255 ml 1540 ml Balance -23.8 ml -179.43 ml 67.92 ml Results Result Diagram: 10/16/16 0330 10/16/16 0330 Results 24 hrs Laboratory Tests Test 10/15/16 23:15 10/16/16 03:30 Pathologist Review (Hematology) CSF Tubes Submitted 1 CSF Volume 52.0 CSF Appearance CLEAR CSF Color COLORLESS CSF WBC 1 CSF RBC 0 CSF Cell Count Tube # TUBE#1 CSF Mononuclear Cells % (Auto) 0.0 CSF Polynuclear WBCs (%) 100.0 CSF Glucose 84 H CSF Total Protein 29 White Blood Count 19.7 H Red Blood Count 2.61 L Hemoglobin 7.4 L Hematocrit 23.2 L Mean Corpuscular Volume 88.9 Mean Corpuscular Hemoglobin 28.4 L Mean Corpuscular Hemoglobin Concent 31.9 L Red Cell Distribution Width 21.2 H Platelet Count 74 L Mean Platelet Volume Neutrophils % 89.5 H Lymphocytes % 4.3 L Monocytes % 4.0 Eosinophils % 0.3 Basophils % 0.2 Nucleated Red Blood Cells % 0.0 Neutrophils # 17.7 H Lymphocytes # 0.8 Monocytes # 0.8 Eosinophils # 0.1 Basophils # 0.0 Nucleated Red Blood Cells # 0.0 Sodium Level 138 Potassium Level 3.3 L Chloride Level 94 L Carbon Dioxide Level 35 H Anion Gap 12 Blood Urea Nitrogen 38 H Creatinine 0.54 Glucose Level 133 Calcium Level 7.1 L Phosphorus Level 3.6 Magnesium Level 1.9 Medications Medications Current Medications Ondansetron HCl (Zofran Inj) 4 mg Q6H PRN IV NAUSEA AND/OR VOMITING Last administered on 09/26/16 09:23; Admin Dose 4 MG; Start 09/16/16 at 00:30 Acetaminophen (Tylenol Tab) 650 mg Q6H PRN PO PAIN LEVEL 1-3 OR FEVER Last administered on 10/08/16 12:47; Admin Dose 650 MG; Start 09/16/16 at 00:30 Polyethylene Glycol 17 gm 17 gm DAILY PO Last administered on 10/15/16 08:44; Admin Dose 17 GM; Start 09/20/16 at 11:00 Norepinephrine/ Dextrose (Levophed/D5W) 500 ml @ 1.87 mls/hr TITRATE IV Last administered on 10/14/16 06:28; Admin Dose 3.75 MLS/HR; Start 09/21/16 at 09:00 Acetaminophen/ Hydrocodone Bitart ([place] (5/325)) 1 tab Q4H PRN PO PAIN LEVEL 4 -7 Last administered on 09/28/16 21:20; Admin Dose 1 TAB; Start 09/21/16 at 15: 00 Acetaminophen/ Hydrocodone Bitart ([place] (5/325)) 2 tab Q4H PRN PO PAIN LEVEL 7 -10; Start 09/21/16 at 15:00 Hydromorphone HCl (Dilaudid) 0.5 mg Q2H PRN IV PAIN Last administered on 16:41; Admin Dose 0.5 MG; Start 09/21/16 at 15:00 Hydromorphone HCl (Dilaudid) 1 mg Q2H PRN IV PAIN Last administered on 23:57; Admin Dose 1 MG; Start 09/21/16 at 15:00 Docusate Sodium (Colace) 100 mg BID PRN PO CONSTIPATION; Start 09/21/16 at 15: 00 Enoxaparin Sodium (Lovenox) 40 mg DAILY SC ; Start 09/22/16 at 09:00; Status Future Hold Docusate Sodium (Colace Liquid Cup) 100 mg BID NGT Last administered on 20:42; Admin Dose 100 MG; Start 09/22/16 at 21:00 IV Flush (NS 10 ml) 10 ml PRN PRN IV IV PROTOCOL; Start 09/25/16 at 12:00 Spironolactone 50 mg 50 mg DAILY NGT Last administered on 10/16/16 09:49; Admin Dose 50 MG; Start 09/28/16 at 09:00 Dopamine HCl/ Dextrose 250 ml @ 6.053 mls/ hr TITRATE IV Last administered on 09/30/16 04:46; Admin Dose 6.053 MLS/HR; Start 09/29/16 at 11:00 Phenylephrine HCl/ Dextrose (Marcell-Syneph/D5W) 500 ml @ 75 mls/hr TITRATE IV ; Start 09/29/16 at 14:00 Furosemide (Lasix) 20 mg Q6 IV Last administered on 10/16/16 05:17; Admin Dose 20 MG; Start 10/05/16 at 13:00 Lorazepam 0.5 mg 0.5 mg Q6H PRN IV AGITATION/ANXIETY Last administered on 05:10; Admin Dose 0.5 MG; Start 10/05/16 at 23:00 Fentanyl 100 ml @ 2.5 mls/hr TITRATE IV Last administered on 10/15/16 11:49; Admin Dose 2.5 MLS/HR; Start 10/07/16 at 09:30 Tigecycline/ Sodium Chloride (Tygacil/NS) 100 ml @ 200 mls/hr Q12 IVPB Last administered on 10/16/16 09:46; Admin Dose 200 MLS/HR; Start 10/07/16 at 21:00 Pantoprazole 40 mg 40 mg BID@06,18 IV Last administered on 10/16/16 05:15; Admin Dose 40 MG; Start 10/09/16 at 18:00 Amphotericin B Liposome/Dextrose (Ambisome/D5W) 300 ml @ 150 mls/hr Q24H IVPB Last administered on 10/15/16 23:41; Admin Dose 150 MLS/HR; Start 10/14/16 at 23: 30 DONNA HERNANDEZ NP Oct 16, 2016 16:04
--- NOTE | 2016-10-16 16:12 | CONS ---
Date/Time of Note Date/Time of Note DATE: 10/16/16 TIME: 16:10 Consult Date/Type/Reason Admit Date/Time Sep 15, 2016 at 21:35 Initial Consult Date 09/21/16 Type of Consultation: Pulmonary Subjective Patient off vasopressors since the early hours. Remains relatively comfortable at present. Objective Vital Signs Date Time Temp Pulse Resp B/P Pulse Ox O2 Delivery O2 Flow Rate FiO2 10/16/16 15:30 103 21 108/54 100 10/16/16 15:00 Mechanical Ventilator 10/16/16 14:40 40 10/16/16 12:00 98.5 10/13/16 16:29 100 Intake and Output 10/15/16 10/15/16 10/16/16 15:00 23:00 07:00 Intake Total 1546.2 ml 1481.82 ml 1603.67 ml Output Total 1585 ml 1280 ml 1440 ml Balance -38.8 ml 201.82 ml 163.67 ml Exam PHYSICAL EXAMINATION GENERAL: Chronically ill-appearing lady on mechanical ventilation via tracheostomy VITAL SIGNS: see below. HEENT: Pupils equal, round, and reactive to light. Tracheostomy site clean and intact. CARDIAC: S1, S2, 1/6 systolic ejection murmur CHEST: Diminished air entry bilaterally. ABDOMEN: Mildly distended. Bowel sounds present no guarding or rebound EXTREMITIES: No cyanosis, clubbing edema +1 NEUROLOGIC: Generalized weakness Results/Medications Result Diagram: 10/16/16 0330 10/16/16 0330 Results 24 hrs Laboratory Tests Test 10/15/16 23:15 10/16/16 03:30 Pathologist Review (Hematology) CSF Tubes Submitted 1 CSF Volume 52.0 CSF Appearance CLEAR CSF Color COLORLESS CSF WBC 1 CSF RBC 0 CSF Cell Count Tube # TUBE#1 CSF Mononuclear Cells % (Auto) 0.0 CSF Polynuclear WBCs (%) 100.0 CSF Glucose 84 H CSF Total Protein 29 White Blood Count 19.7 H Red Blood Count 2.61 L Hemoglobin 7.4 L Hematocrit 23.2 L Mean Corpuscular Volume 88.9 Mean Corpuscular Hemoglobin 28.4 L Mean Corpuscular Hemoglobin Concent 31.9 L Red Cell Distribution Width 21.2 H Platelet Count 74 L Mean Platelet Volume Neutrophils % 89.5 H Lymphocytes % 4.3 L Monocytes % 4.0 Eosinophils % 0.3 Basophils % 0.2 Nucleated Red Blood Cells % 0.0 Neutrophils # 17.7 H Lymphocytes # 0.8 Monocytes # 0.8 Eosinophils # 0.1 Basophils # 0.0 Nucleated Red Blood Cells # 0.0 Sodium Level 138 Potassium Level 3.3 L Chloride Level 94 L Carbon Dioxide Level 35 H Anion Gap 12 Blood Urea Nitrogen 38 H Creatinine 0.54 Glucose Level 133 Calcium Level 7.1 L Phosphorus Level 3.6 Magnesium Level 1.9 Medications Current Medications Ondansetron HCl (Zofran Inj) 4 mg Q6H PRN IV NAUSEA AND/OR VOMITING Last administered on 09/26/16 09:23; Admin Dose 4 MG; Start 09/16/16 at 00:30 Acetaminophen (Tylenol Tab) 650 mg Q6H PRN PO PAIN LEVEL 1-3 OR FEVER Last administered on 10/08/16 12:47; Admin Dose 650 MG; Start 09/16/16 at 00:30 Polyethylene Glycol 17 gm 17 gm DAILY PO Last administered on 10/15/16 08:44; Admin Dose 17 GM; Start 09/20/16 at 11:00 Norepinephrine/ Dextrose (Levophed/D5W) 500 ml @ 1.87 mls/hr TITRATE IV Last administered on 10/14/16 06:28; Admin Dose 3.75 MLS/HR; Start 09/21/16 at 09:00 Acetaminophen/ Hydrocodone Bitart ([place] (5/325)) 1 tab Q4H PRN PO PAIN LEVEL 4 -7 Last administered on 09/28/16 21:20; Admin Dose 1 TAB; Start 09/21/16 at 15: 00 Acetaminophen/ Hydrocodone Bitart ([place] (5/325)) 2 tab Q4H PRN PO PAIN LEVEL 7 -10; Start 09/21/16 at 15:00 Hydromorphone HCl (Dilaudid) 0.5 mg Q2H PRN IV PAIN Last administered on 16:41; Admin Dose 0.5 MG; Start 09/21/16 at 15:00 Hydromorphone HCl (Dilaudid) 1 mg Q2H PRN IV PAIN Last administered on 23:57; Admin Dose 1 MG; Start 09/21/16 at 15:00 Docusate Sodium (Colace) 100 mg BID PRN PO CONSTIPATION; Start 09/21/16 at 15: 00 Enoxaparin Sodium (Lovenox) 40 mg DAILY SC ; Start 09/22/16 at 09:00; Status Future Hold Docusate Sodium (Colace Liquid Cup) 100 mg BID NGT Last administered on 20:42; Admin Dose 100 MG; Start 09/22/16 at 21:00 IV Flush (NS 10 ml) 10 ml PRN PRN IV IV PROTOCOL; Start 09/25/16 at 12:00 Spironolactone 50 mg 50 mg DAILY NGT Last administered on 10/16/16 09:49; Admin Dose 50 MG; Start 09/28/16 at 09:00 Dopamine HCl/ Dextrose 250 ml @ 6.053 mls/ hr TITRATE IV Last administered on 09/30/16 04:46; Admin Dose 6.053 MLS/HR; Start 09/29/16 at 11:00 Phenylephrine HCl/ Dextrose (Marcell-Syneph/D5W) 500 ml @ 75 mls/hr TITRATE IV ; Start 09/29/16 at 14:00 Furosemide (Lasix) 20 mg Q6 IV Last administered on 10/16/16 05:17; Admin Dose 20 MG; Start 10/05/16 at 13:00 Lorazepam 0.5 mg 0.5 mg Q6H PRN IV AGITATION/ANXIETY Last administered on 05:10; Admin Dose 0.5 MG; Start 10/05/16 at 23:00 Fentanyl 100 ml @ 2.5 mls/hr TITRATE IV Last administered on 10/15/16 11:49; Admin Dose 2.5 MLS/HR; Start 10/07/16 at 09:30 Tigecycline/ Sodium Chloride (Tygacil/NS) 100 ml @ 200 mls/hr Q12 IVPB Last administered on 10/16/16 09:46; Admin Dose 200 MLS/HR; Start 10/07/16 at 21:00 Pantoprazole 40 mg 40 mg BID@06,18 IV Last administered on 10/16/16 05:15; Admin Dose 40 MG; Start 10/09/16 at 18:00 Amphotericin B Liposome/Dextrose (Ambisome/D5W) 300 ml @ 150 mls/hr Q24H IVPB Last administered on 8/8/17at 23:41; Admin Dose 150 MLS/HR; Start 10/14/16 at 23: 30 Assessment/Plan Chief Complaint/Hosp Course IMP: 1. Septic Shock 2. Intra-abdominal abscess status post drainage with persistent leukocytosis 3. Likely endovascular infection with septic pulm emboli 4. VDRF 5. Hypernatremia 6. Hypokalemia 7. bilateral infiltrates, small effusions. 8. Deep vein thrombosis right upper extremity RECS: 1. Continue surgery recommendations 2. Vasopressors as needed to MAP > 65 mmHg 3. Vent support 4. Replete K+ and Mg 5. Agree with DNR status 6. Trial of Lovenox for DVT, will monitor H&H closely if hemoglobin trends down will not be stable for ongoing anticoagulation. Watts evaluation. 35 min cc time Problems: DAMIEN GUADARRAMA MD, [facility] Oct 16, 2016 16:12
--- NOTE | 2016-10-16 17:27 | CONS ---
Date/Time of Note Date/Time of Note DATE: 10/16/16 TIME: 17:26 Assessment/Plan Assessment/Plan Chief Complaint/Hosp Course Acute respiratory failure: now status post tracheostomy Acute diastolic heart failure: Secondary to volume resuscitation in setting of low albumin and third spacing. Significant anasarca. Improved with diuresis. Paroxysmal afib: converted on amiodarone. Currently in sinus rhythm Septic shock: intraabdominal abscess, bilateral pneumonia. S/p sigmoid colectomy. Tension pneumothorax: due to thoracentesis. s/p chest tube 09/30 NSTEMI: Trop mildly elevated likely type II in the setting of septic shock. Echo from 09/18 showed normal EF and no significant valvular disease. Repeat trop normalized Diverticulitis complicated by abscess s/p sigmoid colectomy and now colostomy Coagulopathy: ?DIC. Resolved h/o ICH with BLOCK HANDLER shunt -Monitor blood pressure off pressors -Continue Lasix to 20mg IV [id number] -Ventilator management per pulmonology Problems: Consultation Date/Type/Reason Admit Date/Time Sep 15, 2016 at 21:35 Initial Consult Date 09/21/16 Type of Consultation: Cardiology 24 HR Interval Summary Free Text/Dictation Off Levophed since early this morning. Detailed Summary Additional Comments Unable to obtain review of systems, patient on ventilator. Exam/Review of Systems Vital Signs Vitals Vital Signs Date Time Temp Pulse Resp B/P Pulse Ox O2 Delivery O2 Flow Rate FiO2 10/16/16 17:10 99 14 100 40 10/16/16 15:30 108/54 10/16/16 15:00 Mechanical Ventilator 10/16/16 12:00 98.5 10/13/16 16:29 100 Intake and Output 10/15/16 10/15/16 10/16/16 15:00 23:00 07:00 Intake Total 1546.2 ml 1481.82 ml 1603.67 ml Output Total 1585 ml 1280 ml 1440 ml Balance -38.8 ml 201.82 ml 163.67 ml Exam Constitutional: NAD HEENT: NCAT Neck: No obvious JVD, tracheostomy Respiratory: diminished breath sounds, scattered crackles, no wheezes; chest tube noted Cardiovascular: Tachycardic, regular, no m/r/g, 2+ pitting BLE edema Gastrointestinal: non-tender, soft, grimaces to palpation Extremities: warm, no cyanosis or clubbing, LE SCDs in place Results Result Diagram: 10/16/16 0330 10/16/16 0330 Results 24 hrs Laboratory Tests Test 10/15/16 23:15 10/16/16 03:30 Pathologist Review (Hematology) CSF Tubes Submitted 1 CSF Volume 52.0 CSF Appearance CLEAR CSF Color COLORLESS CSF WBC 1 CSF RBC 0 CSF Cell Count Tube # TUBE#1 CSF Mononuclear Cells % (Auto) 0.0 CSF Polynuclear WBCs (%) 100.0 CSF Glucose 84 H CSF Total Protein 29 White Blood Count 19.7 H Red Blood Count 2.61 L Hemoglobin 7.4 L Hematocrit 23.2 L Mean Corpuscular Volume 88.9 Mean Corpuscular Hemoglobin 28.4 L Mean Corpuscular Hemoglobin Concent 31.9 L Red Cell Distribution Width 21.2 H Platelet Count 74 L Mean Platelet Volume Neutrophils % 89.5 H Lymphocytes % 4.3 L Monocytes % 4.0 Eosinophils % 0.3 Basophils % 0.2 Nucleated Red Blood Cells % 0.0 Neutrophils # 17.7 H Lymphocytes # 0.8 Monocytes # 0.8 Eosinophils # 0.1 Basophils # 0.0 Nucleated Red Blood Cells # 0.0 Sodium Level 138 Potassium Level 3.3 L Chloride Level 94 L Carbon Dioxide Level 35 H Anion Gap 12 Blood Urea Nitrogen 38 H Creatinine 0.54 Glucose Level 133 Calcium Level 7.1 L Phosphorus Level 3.6 Magnesium Level 1.9 Medications Medications Current Medications Ondansetron HCl (Zofran Inj) 4 mg Q6H PRN IV NAUSEA AND/OR VOMITING Last administered on 09/26/16 09:23; Admin Dose 4 MG; Start 09/16/16 at 00:30 Acetaminophen (Tylenol Tab) 650 mg Q6H PRN PO PAIN LEVEL 1-3 OR FEVER Last administered on 10/08/16 12:47; Admin Dose 650 MG; Start 09/16/16 at 00:30 Polyethylene Glycol 17 gm 17 gm DAILY PO Last administered on 10/15/16 08:44; Admin Dose 17 GM; Start 09/20/16 at 11:00 Norepinephrine/ Dextrose (Levophed/D5W) 500 ml @ 1.87 mls/hr TITRATE IV Last administered on 10/14/16 06:28; Admin Dose 3.75 MLS/HR; Start 09/21/16 at 09:00 Acetaminophen/ Hydrocodone Bitart ([place] (5/325)) 1 tab Q4H PRN PO PAIN LEVEL 4 -7 Last administered on 09/28/16 21:20; Admin Dose 1 TAB; Start 09/21/16 at 15: 00 Acetaminophen/ Hydrocodone Bitart ([place] (5/325)) 2 tab Q4H PRN PO PAIN LEVEL 7 -10; Start 09/21/16 at 15:00 Hydromorphone HCl (Dilaudid) 0.5 mg Q2H PRN IV PAIN Last administered on 16:41; Admin Dose 0.5 MG; Start 09/21/16 at 15:00 Hydromorphone HCl (Dilaudid) 1 mg Q2H PRN IV PAIN Last administered on 23:57; Admin Dose 1 MG; Start 09/21/16 at 15:00 Docusate Sodium (Colace) 100 mg BID PRN PO CONSTIPATION; Start 09/21/16 at 15: 00 Enoxaparin Sodium (Lovenox) 40 mg DAILY SC ; Start 09/22/16 at 09:00; Status Future Hold Docusate Sodium (Colace Liquid Cup) 100 mg BID NGT Last administered on 20:42; Admin Dose 100 MG; Start 09/22/16 at 21:00 IV Flush (NS 10 ml) 10 ml PRN PRN IV IV PROTOCOL; Start 09/25/16 at 12:00 Spironolactone 50 mg 50 mg DAILY NGT Last administered on 10/16/16 09:49; Admin Dose 50 MG; Start 09/28/16 at 09:00 Dopamine HCl/ Dextrose 250 ml @ 6.053 mls/ hr TITRATE IV Last administered on 09/30/16 04:46; Admin Dose 6.053 MLS/HR; Start 09/29/16 at 11:00 Phenylephrine HCl/ Dextrose (Marcell-Syneph/D5W) 500 ml @ 75 mls/hr TITRATE IV ; Start 09/29/16 at 14:00 Furosemide (Lasix) 20 mg Q6 IV Last administered on 10/16/16 05:17; Admin Dose 20 MG; Start 10/05/16 at 13:00 Lorazepam 0.5 mg 0.5 mg Q6H PRN IV AGITATION/ANXIETY Last administered on 05:10; Admin Dose 0.5 MG; Start 10/05/16 at 23:00 Fentanyl 100 ml @ 2.5 mls/hr TITRATE IV Last administered on 10/15/16 11:49; Admin Dose 2.5 MLS/HR; Start 10/07/16 at 09:30 Tigecycline/ Sodium Chloride (Tygacil/NS) 100 ml @ 200 mls/hr Q12 IVPB Last administered on 10/16/16 09:46; Admin Dose 200 MLS/HR; Start 10/07/16 at 21:00 Pantoprazole 40 mg 40 mg BID@06,18 IV Last administered on 10/16/16 05:15; Admin Dose 40 MG; Start 10/09/16 at 18:00 Amphotericin B Liposome/Dextrose (Ambisome/D5W) 300 ml @ 150 mls/hr Q24H IVPB Last administered on 10/15/16 23:41; Admin Dose 150 MLS/HR; Start 10/14/16 at 23: 30 AVINASH FERNANDEZ MD Oct 16, 2016 17:27
--- NOTE | 2016-10-16 18:37 | PN ---
Date/Time of Note Date/Time of Note DATE: 10/16/16 TIME: 18:36 Assessment/Plan Lines/Catheters IV Catheter Type (from Nrs): PICC Line Shore in Place (from Nrs): Yes Assessment/Plan Assessment/Plan [facility] Progress Note Date of Service: 10/16/2016 Place of service: [facility] ICU Today's Assessment & Plan: Overall has remained quasi stably critically ill. WBC up and down. ? fungal infection/encephalopathy (w/u underway and antifungals added). Still has a chance to recover, but less as the number of days are passing without steady improvement. No indication for acute surgical intervention. Previous assessment that still applies today: Overall stable but with failure to thrive. Abdomen continues to remain benign. Trach and PEG being used. Drainage of perihepatic fluid collection ongoing. Of great importance is adequate nutrition and I recommended that we continue the feeds through the PEG with a goal of 60 cc/h with guidance from our dietitian colleagues. With above assessment, I recommended the following for today: 1. Continue aggressive medical management with intubation; CODE STATUS at this point is DO NOT RESUSCITATE but with intubation being okay and no chest compressions or electric shocks. Chemical code is okay. 2. Continue wound VAC; dressing change 3 times a week 3. Cont aggressive pulmonary toilet 4. Cont Lasix as allowed by her clinical condition 5. Labs in am 6. Please maintain multidisciplinary discussion regarding fluid intake, CODE STATUS, and other major medical decisions since this is a fragile surgical patient with recent sepsis and shock; I changed code status to full code, but without chest compression or electric shock 7. Targeted antimicrobial therapy to culture results 8. PT/OT when patient is able to 9. Management of DIRECTOR SCRIPT shunt per Dr. Miner (much appreciate the care) 10. Continue PEG gastric feeds with goal of 60 cc/h 11. Keep in the ICU 12. Social work and case management to please start working on disposition planning (rehab versus SNF) 13. Please note: Guille, who is the patient's decision maker currently, would like Mr. Yanez (patient's ex-) to still be involved in her care. He should still have full access to the hospital and patient according to Guille. 14. Tracheostomy management per Dr. Jones 15. Continue following GI recommendation for management of GI bleeding 16. Continue percutaneous drainage of perihepatic fluid collections and flushed drain. Thank you again for your great care of this very pleasant patient and wonderful family. If there are any questions, please feel free to call me at [phone]. Nature of presenting problem: High severity Please note that, given the extensive number of diagnoses or management options , the extensive amount and/or complexity of data needed to be reviewed, and I risk of complications and/or morbidity or mortality, this qualifies as high complexity type of decision-making. Disclaimer: Inadvertent spelling and grammatical errors are likely due to EHR/ dictation software use and do not reflect on the quality of delivered patient care. Also, please note that the electronic time recorded on this node does not necessarily reflect the actual time of the visit. Updated Clinical Summary: A very pleasant 70-year-old lady without significant known past medical history other than a DIRECTOR SCRIPT shunt placement many years ago which she did not remember or report, presenting with what appears to be a sigmoid colon abscess or pericolonic abscess, which seemed to be a complication of diverticulitis. S/p IR drainage 09/09/16 with removal of 20 cc pus and placement of a 10 Fr. pigtail catheter at [facility]. D/c home 09/12/16. Re-presented to [facility] 09/15/16 after being diverted from [facility] (due to internal disaster diversion) where CT was done showing adequate placement of the percutaneous drain near the sigmoid colon and decompressed sigmoid colon abscess, no obvious free air or significant spillage of stool in the abdominal cavity, and incidental finding of tail of the DIRECTOR SCRIPT shunt in the pelvis (new from right upper quadrant position of the same drain on the CT scan at [facility]). Transfer to [facility] 09/15/2016 for further cares. S/p upsizing of drain to 12 Fr pigtail on 09/17/16 (communication with colon demonstrated; no obvious free communication to rest of peritoneal space). Patient decompensated in the early hours of the morning on 09/21/2016 and had to be transferred to the intensive care unit with need for endotracheal tube intubation, central line placement, and resuscitation for treatment of shock with lactic acidosis and evidence of peritonitis and free air on the new chest, abdomen, and pelvis CT scan. S/p a rather challenging sigmoid colectomy with performance of end colostomy (Reid's procedure), takedown of splenic flexure of the colon, lysis of adhesions (60 minutes), and abdominal lavage at [facility] on 09/21/16; diagnosis of colon ischemia (distal transverse colon and descending colon) during reentry through recent laparotomy incision with exploration of abdominal cavity, takedown of colostomy, completion left hemicolectomy with resection of distal transverse colon, lysis of adhesions, abdominal lavage, performance of an end colostomy [facility] 09/24/16. Extubated post op evening of 09/25/16. Decompensation with intubation and restart of pressors . Right-sided pneumothorax after drainage of right pleural effusion requiring chest tube placement 09/30/2016. Extubated 10/03/2016. Decompensation with reintubation 10/06/16. Tracheostomy and PEG placed. Perihepatic fluid collections drained 10/13/2016. Cryptococcal antigen found in the urine 2016. Antifungal therapy started. Comorbidities: 1. Perforated sigmoid colon (see below) 2. Status post ventriculoperitoneal shunt placement. 3. Status post prior hysterectomy and bilateral salpingo-oophorectomy through Pfannenstiel incision 4. S/p IR drainage 09/09/16 with removal of 20 cc pus and placement of a 10 Fr. pigtail catheter at [facility]. 5. Readmission to [facility] 09/15/16 with upsizing of drain to 12 Fr pigtail on (communication with colon demonstrated; no obvious free communication to rest of peritoneal space). Septic shock with multiorgan failure 09/21/2016 requiring ICU admission with intubation and pressors. 6. S/p a rather challenging sigmoid colectomy with performance of end colostomy (Reid's procedure), takedown of splenic flexure of the colon, lysis of adhesions (60 minutes), and abdominal lavage at [facility] on 09/21/16 7. Colon ischemia (distal transverse colon and descending colon) 8. S/p reentry through recent laparotomy incision with exploration of abdominal cavity, takedown of colostomy, completion left hemicolectomy with resection of distal transverse colon, lysis of adhesions, abdominal lavage, performance of an end colostomy [facility] 09/24/16 9. Stage I/II decubitus pressure ulcers (10/11/2016 [facility] ICU) Subjective: Remain on a ventilator with tracheostomy without major events. Lethargic and not communicative, but with noticeably more energy level than the past few days. Objective: Vitals: See below I's & O's: See below Exam: GENERAL: On exam, the patient was lying in bed and appeared to be breathing comfortably on the vent. No obvious acute distress. Appears emaciated. ABDOMEN: Soft, nontender and nondistended. Incision dressings are clean, dry and intact without any obvious evidence of underlying erythema, edema, discharge , or hernia. Surgical drain ss without any evidence of enteric contents. There are no peritoneal signs or guarding. Ostomy appears to be viable and productive with stool and air in the bag. Perihepatic drain showing pus. SKIN: Skin appears to be pink and feels warm to touch. NEUROLOGIC: Patient is arousable with voice but for the most part noncommunicative and does not respond to simple commands. Remains on the ventilator with tracheostomy tube and sedated. Labs: See below Exam/Review of Systems Vital Signs Vitals Vital Signs Date Time Temp Pulse Resp B/P Pulse Ox O2 Delivery O2 Flow Rate FiO2 10/16/16 17:10 99 14 100 40 10/16/16 15:30 108/54 10/16/16 15:00 Mechanical Ventilator 10/16/16 12:00 98.5 10/13/16 16:29 100 Intake and Output 10/15/16 10/15/16 10/16/16 15:00 23:00 07:00 Intake Total 1546.2 ml 1481.82 ml 1603.67 ml Output Total 1585 ml 1280 ml 1440 ml Balance -38.8 ml 201.82 ml 163.67 ml Results Result Diagram: 10/16/16 0330 10/16/16 0330 ALEXSANDER DUARTE M.D. Oct 16, 2016 18:37
[2016-10-16] MEDS: FENTAnyl (DRIP) 1000 mcg/100mL 100 ML IV SCH (23:03)
[2016-10-16] MEDS: ENOXAPARIN 100 MG/ML SYG SC SCH (23:44)
[2016-10-16] MEDS: AMPHOTERICIN B LIPOSOME 300 MG in DEXTROSE 5% 300 ML IVPB SCH (23:45)
[2016-10-17] VITALS (68 sets, daily range): BP systolic 70–135; BP diastolic 27–86; PULSE 79–102; RESP 8–23
[2016-10-17] MEDS: IPRATROPIUM (HFA) 12.9 GM INHALER INH SCH ×6 (01:38→21:14)
[2016-10-17] MEDS: ALBUTEROL 18 GM INHALER INH SCH ×6 (01:38→21:14)
[2016-10-17] MEDS: FUROSEMIDE 20 MG INJ IV SCH ×4 (01:51→18:00)
[2016-10-17 05:53] LABS: ABNORMAL IP MESSAGE 1; HEMATOCRIT 20.1 % (37.0-47.0); MEAN CORPUSCULAR HEMOGLOBIN 29.1 pg (29.0-33.0); MEAN CORPUSCULAR HGB CONC 32.8 g/dl (32.0-37.0); MEAN CORPUSCULAR VOLUME 88.5 fl (82.0-101.0); PLATELET COUNT 79 10^3/UL (140-415); RED BLOOD COUNT 2.27 10^6/ul (4.20-5.40); RED CELL DISTRIBUTION WIDTH 21.2 % (11.5-14.5)
[2016-10-17 06:26] LABS: CALCIUM 6.8 mg/dl (8.4-10.2); CREATININE 0.59 mg/dl (0.44-1.00); MAGNESIUM 1.9 mg/dl (1.7-2.5); PHOSPHORUS 3.6 mg/dl (2.5-4.9); POTASSIUM 3.8 mmol/L (3.5-5.1)
[2016-10-17 06:36] LABS: HEMOGLOBIN 6.6 g/dl (12.0-16.0); POSITIVE DIFF @See below
[2016-10-17] MEDS: POTASSIUM CHLORIDE 50 ML IVPB PRN (06:57)
[2016-10-17] MEDS: PANTOPRAZOLE 40 MG INJ IV SCH ×2 (06:57→19:03)
--- NOTE | 2016-10-17 08:27 | PN ---
DATE: 10/17/2016 SUBJECTIVE DATA: The patient remains critical, but stable. The patient remains on presser support. No other events noted. No hemoptysis, hematemesis, hematochezia. Urinary output has been adequate. OBJECTIVE DATA: VITAL SIGNS: Blood pressure is 91/51, respirations 17, pulse 86, temperature 98.6. HEENT: Head is normocephalic. NECK: Supple. HEART: Regular rate. LUNGS: Show diminished breath sounds at the bases. ABDOMEN: Soft. Positive ostomy. Positive drain noted. EXTREMITIES: Negative for clubbing, cyanosis. Positive edema. DERMATOLOGIC: Clean. No rashes. MUSCULOSKELETAL: No joint effusion. NEUROLOGIC: No change in exam. MEDICATIONS: Reviewed. LABORATORY AND DIAGNOSTIC DATA: Show white count 23.0, hemoglobin 6.6, crit of 20.1, platelet count 79. Sodium 135, potassium 3.8, chloride 92, BUN 39, creatinine 0.59. ASSESSMENT AND PLAN: 1. Nonoliguric acute kidney injury. Etiology secondary to acute tubular necrosis. Renal function appears to be stabilized. At this point, continue current treatment, supportive care. Renally dose all meds. 2. Hypernatremia, improved. Continue free water flushes. 3. Hypokalemia. Continue potassium protocol. 4. Volume overload, anasarca. Continue diuretic therapy. 5. Sepsis, status post shock. Etiology secondary to pneumonia. Continue broad-spectrum antibiotics. The patient remains on presser support. 6. Anemia. Patient's hemoglobin has dropped, currently 6.6 g/dL. Would recommend a blood transfusion, 2 units of packed red blood cells. Monitor closely. 7. Mineral bone disorder. Continue to monitor calcium and phosphorus levels. 8. Ventilatory-dependent respiratory failure, status post trach. The patient's vent settings and ABGs reviewed. Continue to monitor. 9. Perforated viscus, status post colectomy with colostomy bag. Continue to monitor. 10. Abdominal abscess, status post drain placement. 11. Dysphagia/percutaneous endoscopic gastrostomy. Continue tube feeding. 12. Status post ventriculoperitoneal shunt placement. Dictated By: Agustin Sanchez DO /rhina/ananda /Document#: [id number]
--- NOTE | 2016-10-17 08:56 | RADRPT ---
PROCEDURE: XR Chest 1 View. CLINICAL INDICATION: Shortness of breath. TECHNIQUE: AP view of the chest was obtained. COMPARISON: October 14, 2016 FINDINGS: The heart size is within normal limits. Calcified atherosclerosis is noted in the aorta. Tracheosto my tube is stable and appears in grossly appropriate location. Right-sided PICC line is unchanged. Patchy left lower lobe infiltrates have mildly decreased. Mild to moderate residual with small pleu ral effusion remains. Right-sided chest tube is stable. No pneumothorax as visualized Patchy perih ilar infiltrates throughout the right lung and small right pleural effusion have increased. Partiall y visualized multipurpose drain is identified in the right upper quadrant of the abdomen. Osseous st ructures are intact. IMPRESSION: Calcified atherosclerosis in the aorta. Interval decrease in left lower lobe infiltrates. Mild to moderate residual, combined with small pl eural effusion remains. Interval increase in perihilar infiltrates throughout the right lung and small right pleural effusio n. Stable right chest tube. No visualized pneumothorax. RPTAT: AA .Gaurav Garcia MD, MD Date Time Electronically viewed and signed by .Gaurav Garcia MD, on 10/17/2016 08:56 .P/
[2016-10-17] MEDS: SPIRONOLACTONE 50 MG TAB NGT SCH (09:00)
[2016-10-17] MEDS: ENOXAPARIN 100 MG/ML SYG SC SCH (10:35)
[2016-10-17] MEDS: DOCUSATE SODIUM 10 MG/ML (10ML CUP) NGT SCH ×2 (10:36→20:49)
[2016-10-17] MEDS: TIGECYCLINE 50 MG in SOD CHLORIDE 0.9% 100 ML IVPB SCH ×2 (10:36→20:50)
[2016-10-17] MEDS: POLYETHYLENE GLYCOL 17 GM PACKET PO SCH (10:36)
[2016-10-17] MEDS: BALSAM PERU/CASTOR OIL 60 GM TUBE TOP SCH (10:37)
--- NOTE | 2016-10-17 10:38 | CONS ---
Date/Time of Note Date/Time of Note DATE: 10/17/16 TIME: 10:36 Consult Date/Type/Reason Admit Date/Time Sep 15, 2016 at 21:35 Initial Consult Date 09/21/16 Type of Consultation: Pulmonary Subjective Patient continues mechanical ventilation low blood pressure noted this morning. Decreased hemoglobin. Objective Vital Signs Date Time Temp Pulse Resp B/P Pulse Ox O2 Delivery O2 Flow Rate FiO2 10/17/16 06:30 86 17 91/51 100 Mechanical Ventilator 10/17/16 05:05 40 10/17/16 04:00 98.7 10/13/16 16:29 100 Intake and Output 10/16/16 10/16/16 10/17/16 15:00 23:00 07:00 Intake Total 1546 ml 928 ml 1613 ml Output Total 695 ml 1275 ml 915 ml Balance 851 ml -347 ml 698 ml Exam PHYSICAL EXAMINATION GENERAL: Elderly lady on mechanical ventilation appears comfortable at rest VITAL SIGNS: see below. HEENT: Pupils equal, round, and reactive to light. Tracheostomy site clean and intact. CARDIAC: S1, S2, 1/6 systolic ejection murmur CHEST: Diminished air entry bilaterally. ABDOMEN: Mildly distended. Bowel sounds present no guarding or rebound EXTREMITIES: No cyanosis, clubbing edema +1 NEUROLOGIC: Generalized weakness Results/Medications Result Diagram: 10/17/16 0400 10/17/16 0400 Results 24 hrs Laboratory Tests Test 10/17/16 04:00 10/17/16 10:14 White Blood Count 23.0 H Red Blood Count 2.27 L Hemoglobin 6.6 *L Hematocrit 20.1 L Mean Corpuscular Volume 88.5 Mean Corpuscular Hemoglobin 29.1 Mean Corpuscular Hemoglobin Concent 32.8 Red Cell Distribution Width 21.2 H Platelet Count 79 L Mean Platelet Volume Neutrophils % Lymphocytes % Monocytes % Eosinophils % Basophils % Nucleated Red Blood Cells % 0.0 Neutrophils # Lymphocytes # Monocytes # Eosinophils # Basophils # Nucleated Red Blood Cells # Sodium Level 135 Potassium Level 3.8 Chloride Level 92 L Carbon Dioxide Level 33 H Anion Gap 14 Blood Urea Nitrogen 39 H Creatinine 0.59 Glucose Level 193 Calcium Level 6.8 L Phosphorus Level 3.6 Magnesium Level 1.9 Lab Scanned Report REFERENCE LAB Medications Current Medications Ondansetron HCl (Zofran Inj) 4 mg Q6H PRN IV NAUSEA AND/OR VOMITING Last administered on 09/26/16 09:23; Admin Dose 4 MG; Start 09/16/16 at 00:30 Acetaminophen (Tylenol Tab) 650 mg Q6H PRN PO PAIN LEVEL 1-3 OR FEVER Last administered on 10/08/16 12:47; Admin Dose 650 MG; Start 09/16/16 at 00:30 Polyethylene Glycol 17 gm 17 gm DAILY PO Last administered on 10/15/16 08:44; Admin Dose 17 GM; Start 09/20/16 at 11:00 Norepinephrine/ Dextrose (Levophed/D5W) 500 ml @ 1.87 mls/hr TITRATE IV Last administered on 10/14/16 06:28; Admin Dose 3.75 MLS/HR; Start 09/21/16 at 09:00 Acetaminophen/ Hydrocodone Bitart ([place] (5/325)) 1 tab Q4H PRN PO PAIN LEVEL 4 -7 Last administered on 09/28/16 21:20; Admin Dose 1 TAB; Start 09/21/16 at 15: 00 Acetaminophen/ Hydrocodone Bitart ([place] (5/325)) 2 tab Q4H PRN PO PAIN LEVEL 7 -10; Start 09/21/16 at 15:00 Hydromorphone HCl (Dilaudid) 0.5 mg Q2H PRN IV PAIN Last administered on 16:41; Admin Dose 0.5 MG; Start 09/21/16 at 15:00 Hydromorphone HCl (Dilaudid) 1 mg Q2H PRN IV PAIN Last administered on 23:57; Admin Dose 1 MG; Start 09/21/16 at 15:00 Docusate Sodium (Colace) 100 mg BID PRN PO CONSTIPATION; Start 09/21/16 at 15: 00 Docusate Sodium (Colace Liquid Cup) 100 mg BID NGT Last administered on 20:42; Admin Dose 100 MG; Start 09/22/16 at 21:00 IV Flush (NS 10 ml) 10 ml PRN PRN IV IV PROTOCOL; Start 09/25/16 at 12:00 Spironolactone 50 mg 50 mg DAILY NGT Last administered on 10/16/16 09:49; Admin Dose 50 MG; Start 09/28/16 at 09:00 Dopamine HCl/ Dextrose 250 ml @ 6.053 mls/ hr TITRATE IV Last administered on 09/30/16 04:46; Admin Dose 6.053 MLS/HR; Start 09/29/16 at 11:00 Phenylephrine HCl/ Dextrose (Marcell-Syneph/D5W) 500 ml @ 75 mls/hr TITRATE IV ; Start 09/29/16 at 14:00 Furosemide (Lasix) 20 mg Q6 IV Last administered on 10/17/16 06:57; Admin Dose 20 MG; Start 10/05/16 at 13:00 Lorazepam 0.5 mg 0.5 mg Q6H PRN IV AGITATION/ANXIETY Last administered on 05:10; Admin Dose 0.5 MG; Start 10/05/16 at 23:00 Fentanyl 100 ml @ 2.5 mls/hr TITRATE IV Last administered on 10/16/16 23:03; Admin Dose 3 MLS/HR; Start 10/07/16 at 09:30 Tigecycline/ Sodium Chloride (Tygacil/NS) 100 ml @ 200 mls/hr Q12 IVPB Last administered on 10/16/16 22:49; Admin Dose 200 MLS/HR; Start 10/07/16 at 21:00 Pantoprazole 40 mg 40 mg BID@06,18 IV Last administered on 10/17/16 06:57; Admin Dose 40 MG; Start 10/09/16 at 18:00 Amphotericin B Liposome/Dextrose (Ambisome/D5W) 300 ml @ 150 mls/hr Q24H IVPB Last administered on 10/16/16 23:45; Admin Dose 150 MLS/HR; Start 10/14/16 at 23: 30 Enoxaparin Sodium (Lovenox) 80 mg Q12 SC Last administered on 10/16/16 23:44; Admin Dose 80 MG; Start 10/16/16 at 21:00 Assessment/Plan Chief Complaint/Hosp Course IMP: 1. Septic Shock 2. Intra-abdominal abscess status post drainage with persistent leukocytosis possible cryptococcal infection. 3. Likely endovascular infection with septic pulm emboli 4. VDRF 5. Hypernatremia 6. Hypokalemia 7. bilateral infiltrates, small effusions. 8. Deep vein thrombosis right upper extremity 9. History of CLINICIAN ONCOLOGY shunt status post surgical intervention. 10. Status post right-sided pneumothorax following thoracentesis. Chest tube in place. . RECS: 1. Continue surgery recommendations 2. Vasopressors as needed to MAP > 65 mmHg 3. Vent support 4. Replete K+ and Mg 5. Agree with DNR status 6. DC anticoagulation transfuse 1 unit packed red blood cells. 7. We will hold off removal of chest tube today given hemodynamic instability. 35 min cc time Problems: DAMIEN GUADARRAMA MD, [facility] Oct 17, 2016 10:38
--- NOTE | 2016-10-17 12:32 | CONS ---
Date/Time of Note Date/Time of Note DATE: 10/17/16 TIME: 12:23 Assessment/Plan Assessment/Plan Chief Complaint/Hosp Course ID PROGRESS NOTE CURRENT ABX => TYGACIL #11 + AMPHO B #4 TOTAL ABX DAY #29 s/p Cancidas #15 =>Cipro start 09/17 => VANCO IV + MERREM + FLAGYL #8-> DC'd 10/07 24H INTERVAL SUMMARY * (+)Cryptococcal antigen serology =>SOURCE UNCLEAR? * CSF fluid only 1 WBC = GLU 84 (near normal) Protein normal ? = CSF fluid not compelling -- await cryptococcal ag & fungal Cx x * Clinically not much change -- obtunded, critically ill on the [facility] EVENTS: * s/p 09/21/16 Sigmoid colectomy with performance of end colostomy (Reid's procedure), w/Lysis of adhesions. * s/p 09/21/16 Externalization of SOLAR SALES REPRESENTATIVE shunt. INDICATION: Possible [employer] SALES REPRESENTATIVE shunt infection, ABD abscess * Extubated 10/03 * RE-intubated 09/29 * s/p Left THORA 10/01 * Extubated 10/03 * Re-Intubated 10/06 * 10/10/16 PEG EXAM: 70 yo F ->obtunted on the Vent HEENT:Orally intubated -> Vent Neck: trachea midline. Heart: S1, S2 CXT: chest rise symmetrical breath sounds clear, diminished basis. ABD: Soft, Wound Vac + Colostomy Extremities without cyanosis, (+) edema x4 = dependent edema ID ASSESSMENT 70 yo F w/PMHx ICH and SOL[employer] SALES REPRESENTATIVE shunt admit with: 1. Sepsis w/shock , s/p lactic acidosis => Back on pressors 10/06/16 * (+)Leukocytosis * (+)Fevers >101.5 10/07 2. s/p 09/21/16 Externalization of SOLAR SALES REPRESENTATIVE shunt. INDICATION: Possible SOL[employer] SALES REPRESENTATIVE shunt infection, ABD abscess * (+)Cryptococcal antigen serology =>SOURCE UNCLEAR? * CSF fluid only 1 WBC = GLU 84 (near normal) Protein normal ? = CSF fluid not compelling -- await cryptococcal ag & fungal Cx x 3. Intra-ABD abscess-> 10/13/16 CT guided drainage * s/p Perforated sigmoid colon w/abscess: POD#-> s/p 09/21/16 Sigmoid colectomy with performance of end colostomy (Reid's procedure), w/Lysis of adhesions. * MICRO: 09/23/16 BODY FLUID CULTURE Final Organism 1 ENTEROCOCCUS SPECIES Organism 2 COAGULASE NEGATIVE STAPH Organism 3 ALPHA HEMOLYTIC STREP SPP . VIRIDANS GROUP 4. Acute respiratory failure -> orally RE-intubated 10/06 * Likely endovascular infection with septic pulm emboli 5. CHF w/elevated BNP => (+)Anasarca w/Pleural effusions s/p CT drain 09/30 6. Bilateral PNA == Present on admission 7. NOW (+)VAP => Ventilator associated PNA == superimposed on pulmonary process POA * 10/02/ ETT aspirate (+) MOLD + yeast ->DDx contaminant, submit new sample * 10/07 ETT aspirate (+) MOLD + GNR ->(+) Cupriavidus pauculus, Previously known as Ralstonia paucula. * 10/08/16 CT CHEST: Multiple bilateral cavitary nodules...similar to the prior CT :DDx septic emboli, atypical (fungal, tuberculosis) infectious process, and possible neoplasm. * CT 09/30 THORA BODY FLUID CULTURE no growth * Fungal smears (-) to date * AFB SMEAR (-) x 3 Final ACID FAST BACILLI NONE SEEN 8. Pancytopenia - sepsis 9. Coagulopathy w/thrombocytopenia (-)MRSA Nares screen INVASIVES: PICC (09/25/16) , ETT, NGT, VPS, FC, CXT-Tube; PEG ABX ALLERGY: PCN CURRENT ABX => TYGACIL #11 + AMPHO B #4 TOTAL ABX DAY #29 s/p Cancidas #15 =>Cipro start 09/17 => VANCO IV + MERREM + FLAGYL #8-> DC'd 10/07 ID RECOMMENDATIONS 1. (+)Cryptococcal antigen serology =>SOURCE UNCLEAR? * CSF fluid only 1 WBC = GLU 84 (near normal) Protein normal ? = CSF fluid not compelling --await cryptococcal ag & fungal Cx x * Pending Michaela Ink, Cryptococcal antigen, Lactate, IgG, IgS, IgM * AMPHO B IV started 2. Await micro ID of MOLD growing in respiratory culture x 2 3. Send cocci, aspergillosis, histoplasma serology -> Pending . . . . . Problems: Consultation Date/Type/Reason Admit Date/Time Sep 15, 2016 at 21:35 Initial Consult Date 09/21/16 Type of Consultation: ID Exam/Review of Systems Vital Signs Vitals Vital Signs Date Time Temp Pulse Resp B/P Pulse Ox O2 Delivery O2 Flow Rate FiO2 10/17/16 09:55 96 12 100 40 10/17/16 06:30 91/51 Mechanical Ventilator 10/17/16 04:00 98.7 10/13/16 16:29 100 Intake and Output 10/16/16 10/16/16 10/17/16 15:00 23:00 07:00 Intake Total 1546 ml 928 ml 1613 ml Output Total 695 ml 1275 ml 915 ml Balance 851 ml -347 ml 698 ml Results Result Diagram: 10/17/16 0400 10/17/16 0400 Results 24 hrs Laboratory Tests Test 10/17/16 04:00 10/17/16 10:14 White Blood Count 23.0 H Red Blood Count 2.27 L Hemoglobin 6.6 *L Hematocrit 20.1 L Mean Corpuscular Volume 88.5 Mean Corpuscular Hemoglobin 29.1 Mean Corpuscular Hemoglobin Concent 32.8 Red Cell Distribution Width 21.2 H Platelet Count 79 L Mean Platelet Volume Neutrophils % Lymphocytes % Monocytes % Eosinophils % Basophils % Nucleated Red Blood Cells % 0.0 Neutrophils # Lymphocytes # Monocytes # Eosinophils # Basophils # Nucleated Red Blood Cells # Sodium Level 135 Potassium Level 3.8 Chloride Level 92 L Carbon Dioxide Level 33 H Anion Gap 14 Blood Urea Nitrogen 39 H Creatinine 0.59 Glucose Level 193 Calcium Level 6.8 L Phosphorus Level 3.6 Magnesium Level 1.9 Lab Scanned Report REFERENCE LAB Medications Medications Current Medications Ondansetron HCl (Zofran Inj) 4 mg Q6H PRN IV NAUSEA AND/OR VOMITING Last administered on 09/26/16 09:23; Admin Dose 4 MG; Start 09/16/16 at 00:30 Acetaminophen (Tylenol Tab) 650 mg Q6H PRN PO PAIN LEVEL 1-3 OR FEVER Last administered on 10/08/16 12:47; Admin Dose 650 MG; Start 09/16/16 at 00:30 Polyethylene Glycol 17 gm 17 gm DAILY PO Last administered on 10/17/16 10:36; Admin Dose 17 GM; Start 09/20/16 at 11:00 Norepinephrine/ Dextrose (Levophed/D5W) 500 ml @ 1.87 mls/hr TITRATE IV Last administered on 10/14/16 06:28; Admin Dose 3.75 MLS/HR; Start 09/21/16 at 09:00 Acetaminophen/ Hydrocodone Bitart ([place] (5/325)) 1 tab Q4H PRN PO PAIN LEVEL 4 -7 Last administered on 09/28/16 21:20; Admin Dose 1 TAB; Start 09/21/16 at 15: 00 Acetaminophen/ Hydrocodone Bitart ([place] (5/325)) 2 tab Q4H PRN PO PAIN LEVEL 7 -10; Start 09/21/16 at 15:00 Hydromorphone HCl (Dilaudid) 0.5 mg Q2H PRN IV PAIN Last administered on 16:41; Admin Dose 0.5 MG; Start 09/21/16 at 15:00 Hydromorphone HCl (Dilaudid) 1 mg Q2H PRN IV PAIN Last administered on 23:57; Admin Dose 1 MG; Start 09/21/16 at 15:00 Docusate Sodium (Colace) 100 mg BID PRN PO CONSTIPATION; Start 09/21/16 at 15: 00 Docusate Sodium (Colace Liquid Cup) 100 mg BID NGT Last administered on 10:36; Admin Dose 100 MG; Start 09/22/16 at 21:00 IV Flush (NS 10 ml) 10 ml PRN PRN IV IV PROTOCOL; Start 09/25/16 at 12:00 Spironolactone 50 mg 50 mg DAILY NGT Last administered on 10/16/16 09:49; Admin Dose 50 MG; Start 09/28/16 at 09:00 Dopamine HCl/ Dextrose 250 ml @ 6.053 mls/ hr TITRATE IV Last administered on 09/30/16 04:46; Admin Dose 6.053 MLS/HR; Start 09/29/16 at 11:00 Phenylephrine HCl/ Dextrose (Marcell-Syneph/D5W) 500 ml @ 75 mls/hr TITRATE IV ; Start 09/29/16 at 14:00 Furosemide (Lasix) 20 mg Q6 IV Last administered on 10/17/16 06:57; Admin Dose 20 MG; Start 10/05/16 at 13:00 Lorazepam 0.5 mg 0.5 mg Q6H PRN IV AGITATION/ANXIETY Last administered on 05:10; Admin Dose 0.5 MG; Start 10/05/16 at 23:00 Fentanyl 100 ml @ 2.5 mls/hr TITRATE IV Last administered on 10/16/16 23:03; Admin Dose 3 MLS/HR; Start 10/07/16 at 09:30 Tigecycline/ Sodium Chloride (Tygacil/NS) 100 ml @ 200 mls/hr Q12 IVPB Last administered on 10/17/16 10:36; Admin Dose 200 MLS/HR; Start 10/07/16 at 21:00 Pantoprazole 40 mg 40 mg BID@06,18 IV Last administered on 10/17/16 06:57; Admin Dose 40 MG; Start 10/09/16 at 18:00 Amphotericin B Liposome/Dextrose (Ambisome/D5W) 300 ml @ 150 mls/hr Q24H IVPB Last administered on 10/16/16 23:45; Admin Dose 150 MLS/HR; Start 10/14/16 at 23: 30 DONNA HERNANDEZ NP Oct 17, 2016 12:31
--- NOTE | 2016-10-17 12:32 | CONS ---
Date/Time of Note Date/Time of Note DATE: 10/17/16 TIME: 12:30 Assessment/Plan Assessment/Plan Additional Assessment/Plan No change in patient's overall clinical condition she remains into the, minimally responsive. Consultation Date/Type/Reason Admit Date/Time Sep 15, 2016 at 21:35 Initial Consult Date 09/21/16 Type of Consultation: Palliative care Exam/Review of Systems Vital Signs Vitals Vital Signs Date Time Temp Pulse Resp B/P Pulse Ox O2 Delivery O2 Flow Rate FiO2 10/17/16 09:55 96 12 100 40 10/17/16 06:30 91/51 Mechanical Ventilator 10/17/16 04:00 98.7 10/13/16 16:29 100 Intake and Output 10/16/16 10/16/16 10/17/16 15:00 23:00 07:00 Intake Total 1546 ml 928 ml 1613 ml Output Total 695 ml 1275 ml 915 ml Balance 851 ml -347 ml 698 ml Exam Constitutional: non-verbal Neurological: other (Unable to assess patient intubated minimally responds) Results Result Diagram: 10/17/16 0400 10/17/16 0400 Results 24 hrs Laboratory Tests Test 10/17/16 04:00 10/17/16 10:14 White Blood Count 23.0 H Red Blood Count 2.27 L Hemoglobin 6.6 *L Hematocrit 20.1 L Mean Corpuscular Volume 88.5 Mean Corpuscular Hemoglobin 29.1 Mean Corpuscular Hemoglobin Concent 32.8 Red Cell Distribution Width 21.2 H Platelet Count 79 L Mean Platelet Volume Neutrophils % Lymphocytes % Monocytes % Eosinophils % Basophils % Nucleated Red Blood Cells % 0.0 Neutrophils # Lymphocytes # Monocytes # Eosinophils # Basophils # Nucleated Red Blood Cells # Sodium Level 135 Potassium Level 3.8 Chloride Level 92 L Carbon Dioxide Level 33 H Anion Gap 14 Blood Urea Nitrogen 39 H Creatinine 0.59 Glucose Level 193 Calcium Level 6.8 L Phosphorus Level 3.6 Magnesium Level 1.9 Lab Scanned Report REFERENCE LAB Medications Medications Current Medications Ondansetron HCl (Zofran Inj) 4 mg Q6H PRN IV NAUSEA AND/OR VOMITING Last administered on 09/26/16t 09:23; Admin Dose 4 MG; Start 09/16/16 at 00:30 Acetaminophen (Tylenol Tab) 650 mg Q6H PRN PO PAIN LEVEL 1-3 OR FEVER Last administered on 10/08/16 12:47; Admin Dose 650 MG; Start 09/16/16 at 00:30 Polyethylene Glycol 17 gm 17 gm DAILY PO Last administered on 10/17/16 10:36; Admin Dose 17 GM; Start 09/20/16 at 11:00 Norepinephrine/ Dextrose (Levophed/D5W) 500 ml @ 1.87 mls/hr TITRATE IV Last administered on 10/14/16 06:28; Admin Dose 3.75 MLS/HR; Start 09/21/16 at 09:00 Acetaminophen/ Hydrocodone Bitart ([place] (5/325)) 1 tab Q4H PRN PO PAIN LEVEL 4 -7 Last administered on 09/28/16 21:20; Admin Dose 1 TAB; Start 09/21/16 at 15: 00 Acetaminophen/ Hydrocodone Bitart ([place] (5/325)) 2 tab Q4H PRN PO PAIN LEVEL 7 -10; Start 09/21/16 at 15:00 Hydromorphone HCl (Dilaudid) 0.5 mg Q2H PRN IV PAIN Last administered on 16:41; Admin Dose 0.5 MG; Start 09/21/16 at 15:00 Hydromorphone HCl (Dilaudid) 1 mg Q2H PRN IV PAIN Last administered on 23:57; Admin Dose 1 MG; Start 09/21/16 at 15:00 Docusate Sodium (Colace) 100 mg BID PRN PO CONSTIPATION; Start 09/21/16 at 15: 00 Docusate Sodium (Colace Liquid Cup) 100 mg BID NGT Last administered on 10:36; Admin Dose 100 MG; Start 09/22/16 at 21:00 IV Flush (NS 10 ml) 10 ml PRN PRN IV IV PROTOCOL; Start 09/25/16 at 12:00 Spironolactone 50 mg 50 mg DAILY NGT Last administered on 10/16/16 09:49; Admin Dose 50 MG; Start 09/28/16 at 09:00 Dopamine HCl/ Dextrose 250 ml @ 6.053 mls/ hr TITRATE IV Last administered on 09/30/16 04:46; Admin Dose 6.053 MLS/HR; Start 09/29/16 at 11:00 Phenylephrine HCl/ Dextrose (Marcell-Syneph/D5W) 500 ml @ 75 mls/hr TITRATE IV ; Start 09/29/16 at 14:00 Furosemide (Lasix) 20 mg Q6 IV Last administered on 10/17/16 06:57; Admin Dose 20 MG; Start 10/05/16 at 13:00 Lorazepam 0.5 mg 0.5 mg Q6H PRN IV AGITATION/ANXIETY Last administered on 05:10; Admin Dose 0.5 MG; Start 10/05/16 at 23:00 Fentanyl 100 ml @ 2.5 mls/hr TITRATE IV Last administered on 10/16/16 23:03; Admin Dose 3 MLS/HR; Start 10/07/16 at 09:30 Tigecycline/ Sodium Chloride (Tygacil/NS) 100 ml @ 200 mls/hr Q12 IVPB Last administered on 10/17/16 10:36; Admin Dose 200 MLS/HR; Start 10/07/16 at 21:00 Pantoprazole 40 mg 40 mg BID@06,18 IV Last administered on 10/17/16 06:57; Admin Dose 40 MG; Start 10/09/16 at 18:00 Amphotericin B Liposome/Dextrose (Ambisome/D5W) 300 ml @ 150 mls/hr Q24H IVPB Last administered on 10/16/16 23:45; Admin Dose 150 MLS/HR; Start 10/14/16 at 23: 30 YANETH VIDAL Oct 17, 2016 12:31
--- NOTE | 2016-10-17 13:36 | CONS ---
Date/Time of Note Date/Time of Note DATE: 10/17/16 TIME: 13:30 Assessment/Plan Assessment/Plan Chief Complaint/Hosp Course Acute respiratory failure: now status post tracheostomy Acute diastolic heart failure: Secondary to volume resuscitation in setting of low albumin and third spacing. Significant anasarca. Improved with diuresis. Paroxysmal afib: converted on amiodarone. Currently in sinus rhythm Septic shock: intraabdominal abscess, bilateral pneumonia. S/p sigmoid colectomy. Tension pneumothorax: due to thoracentesis. s/p chest tube 09/30 NSTEMI: Trop mildly elevated likely type II in the setting of septic shock. Echo from 09/18 showed normal EF and no significant valvular disease. Repeat trop normalized Diverticulitis complicated by abscess s/p sigmoid colectomy and now colostomy Coagulopathy: ?DIC. Resolved h/o ICH with FLOOR FRAMER shunt Anemia: receiving pRBC transfusion -Monitor blood pressure off pressors -Ventilator management per pulmonology Problems: Consultation Date/Type/Reason Admit Date/Time Sep 15, 2016 at 21:35 Initial Consult Date 09/21/16 Type of Consultation: Cardiology 24 HR Interval Summary Free Text/Dictation Required Levophed this morning, now off with borderline blood pressures. Hgb down to 6.6, no obvious bleeding. Detailed Summary Additional Comments Unable to obtain review of systems, patient is on ventilator. Exam/Review of Systems Vital Signs Vitals Vital Signs Date Time Temp Pulse Resp B/P Pulse Ox O2 Delivery O2 Flow Rate FiO2 10/17/16 09:55 96 12 100 40 10/17/16 06:30 91/51 Mechanical Ventilator 10/17/16 04:00 98.7 10/13/16 16:29 100 Intake and Output 10/16/16 10/16/16 10/17/16 15:00 23:00 07:00 Intake Total 1546 ml 928 ml 1613 ml Output Total 695 ml 1275 ml 915 ml Balance 851 ml -347 ml 698 ml Exam Constitutional: NAD HEENT: NCAT Neck: No obvious JVD, tracheostomy Respiratory: diminished breath sounds, scattered crackles, no wheezes; chest tube noted Cardiovascular: Tachycardic, regular, no m/r/g, 2+ pitting BLE edema Gastrointestinal: non-tender, soft, grimaces to palpation Extremities: warm, no cyanosis or clubbing, LE SCDs in place Results Result Diagram: 10/17/16 0400 10/17/16 0400 Results 24 hrs Laboratory Tests Test 10/17/16 04:00 10/17/16 10:14 White Blood Count 23.0 H Red Blood Count 2.27 L Hemoglobin 6.6 *L Hematocrit 20.1 L Mean Corpuscular Volume 88.5 Mean Corpuscular Hemoglobin 29.1 Mean Corpuscular Hemoglobin Concent 32.8 Red Cell Distribution Width 21.2 H Platelet Count 79 L Mean Platelet Volume Neutrophils % Lymphocytes % Monocytes % Eosinophils % Basophils % Nucleated Red Blood Cells % 0.0 Neutrophils # Lymphocytes # Monocytes # Eosinophils # Basophils # Nucleated Red Blood Cells # Sodium Level 135 Potassium Level 3.8 Chloride Level 92 L Carbon Dioxide Level 33 H Anion Gap 14 Blood Urea Nitrogen 39 H Creatinine 0.59 Glucose Level 193 Calcium Level 6.8 L Phosphorus Level 3.6 Magnesium Level 1.9 Lab Scanned Report REFERENCE LAB Medications Medications Current Medications Ondansetron HCl (Zofran Inj) 4 mg Q6H PRN IV NAUSEA AND/OR VOMITING Last administered on 09/26/16 09:23; Admin Dose 4 MG; Start 09/16/16 at 00:30 Acetaminophen (Tylenol Tab) 650 mg Q6H PRN PO PAIN LEVEL 1-3 OR FEVER Last administered on 10/08/16 12:47; Admin Dose 650 MG; Start 09/16/16 at 00:30 Polyethylene Glycol 17 gm 17 gm DAILY PO Last administered on 10/17/16 10:36; Admin Dose 17 GM; Start 09/20/16 at 11:00 Norepinephrine/ Dextrose (Levophed/D5W) 500 ml @ 1.87 mls/hr TITRATE IV Last administered on 10/14/16 06:28; Admin Dose 3.75 MLS/HR; Start 09/21/16 at 09:00 Acetaminophen/ Hydrocodone Bitart ([place] (5/325)) 1 tab Q4H PRN PO PAIN LEVEL 4 -7 Last administered on 09/28/16 21:20; Admin Dose 1 TAB; Start 09/21/16 at 15: 00 Acetaminophen/ Hydrocodone Bitart ([place] (5/325)) 2 tab Q4H PRN PO PAIN LEVEL 7 -10; Start 09/21/16 at 15:00 Hydromorphone HCl (Dilaudid) 0.5 mg Q2H PRN IV PAIN Last administered on 16:41; Admin Dose 0.5 MG; Start 09/21/16 at 15:00 Hydromorphone HCl (Dilaudid) 1 mg Q2H PRN IV PAIN Last administered on 23:57; Admin Dose 1 MG; Start 09/21/16 at 15:00 Docusate Sodium (Colace) 100 mg BID PRN PO CONSTIPATION; Start 09/21/16 at 15: 00 Docusate Sodium (Colace Liquid Cup) 100 mg BID NGT Last administered on 10:36; Admin Dose 100 MG; Start 09/22/16 at 21:00 IV Flush (NS 10 ml) 10 ml PRN PRN IV IV PROTOCOL; Start 09/25/16 at 12:00 Spironolactone 50 mg 50 mg DAILY NGT Last administered on 10/16/16 09:49; Admin Dose 50 MG; Start 09/28/16 at 09:00 Dopamine HCl/ Dextrose 250 ml @ 6.053 mls/ hr TITRATE IV Last administered on 09/30/16 04:46; Admin Dose 6.053 MLS/HR; Start 09/29/16 at 11:00 Phenylephrine HCl/ Dextrose (Marcell-Syneph/D5W) 500 ml @ 75 mls/hr TITRATE IV ; Start 09/29/16 at 14:00 Furosemide (Lasix) 20 mg Q6 IV Last administered on 10/17/16 06:57; Admin Dose 20 MG; Start 10/05/16 at 13:00 Lorazepam 0.5 mg 0.5 mg Q6H PRN IV AGITATION/ANXIETY Last administered on 05:10; Admin Dose 0.5 MG; Start 10/05/16 at 23:00 Fentanyl 100 ml @ 2.5 mls/hr TITRATE IV Last administered on 10/16/16 23:03; Admin Dose 3 MLS/HR; Start 10/07/16 at 09:30 Tigecycline/ Sodium Chloride (Tygacil/NS) 100 ml @ 200 mls/hr Q12 IVPB Last administered on 10/17/16 10:36; Admin Dose 200 MLS/HR; Start 10/07/16 at 21:00 Pantoprazole 40 mg 40 mg BID@06,18 IV Last administered on 10/17/16 06:57; Admin Dose 40 MG; Start 10/09/16 at 18:00 Amphotericin B Liposome/Dextrose (Ambisome/D5W) 300 ml @ 150 mls/hr Q24H IVPB Last administered on 10/16/16 23:45; Admin Dose 150 MLS/HR; Start 10/14/16 at 23: 30 AVINASH FERNANDEZ MD Oct 17, 2016 13:36
--- NOTE | 2016-10-17 13:40 | RADRPT ---
PROCEDURE: XR Chest. CLINICAL INDICATION: Shortness of breath. Rule out pneumothorax. TECHNIQUE: Single frontal chest x-ray. COMPARISON: 06:49 a.m. FINDINGS: Tracheostomy tube, right arm PICC line in place unchanged. There are 2 right-sided pleural drainage catheters in place unchanged. Bilateral perihilar and basilar infiltrates are stable. Small bilater al pleural effusions are unchanged. There is no evidence of pneumothorax. . Calcific atheroscleros is of the aorta is present.. The cardiomediastinal silhouette is unremarkable. The osseous structur es are intact. IMPRESSION: Tubes and lines unchanged. 2 right-sided pleural drainage catheters in place without evidence of pneumothorax. Bilateral perihilar and basilar infiltrates with small bilateral pleural effusions is stable.. RPTAT: GG .Isma Means MD, Date Time Electronically viewed and signed by .Isma Means MD, MD on 10/17/2016 13:40 .L/
[2016-10-17 15:02] LABS: ABNORMAL IP MESSAGE 1; HEMATOCRIT 23.9 % (37.0-47.0); MEAN CORPUSCULAR HEMOGLOBIN 28.8 pg (29.0-33.0); MEAN CORPUSCULAR HGB CONC 33.5 g/dl (32.0-37.0); PLATELET COUNT 94 10^3/UL (140-415); RED BLOOD COUNT 2.78 10^6/ul (4.20-5.40); RED CELL DISTRIBUTION WIDTH 19.8 % (11.5-14.5); WHITE BLOOD COUNT 23.9 10^3/ul (4.8-10.8)
[2016-10-17 15:58] LABS: POSITIVE DIFF @See below
--- NOTE | 2016-10-17 17:48 | PN ---
Date/Time of Note Date/Time of Note DATE: 10/17/16 TIME: 17:44 Assessment/Plan VTE Prophylaxis VTE Prophylaxis Intervention: SCD's Lines/Catheters IV Catheter Type (from Nrs): PICC Line Central line still needed: Yes Urinary Cath still in place: Yes Reason Cath still needed: other (indicate) (critically ill) Assessment/Plan Assessment/Plan 70 yo F with h/o hydrocephalus with previous VPS admitted for sigmoid abscess. hospital stay cb sepsis, colon perforation with multiple abd fluid collections , also recurrent respiratory failure warranting trach, pleural effusion with thora c/b by PTX. Now with recurrence of pressor requirement after being off pressors x almost 24 hours 1. Sigmoid colon abscess,2/2 diverticulitis - s/p sigmoid colectomy with end colostomy (Reid's procedure) and adhesiolysis on 09/21/16 - cont abx and gen surg care 2. Ventilator dependent respiratory failure: sp trach 3 Left pleural effusion: Status post thoracentesis, complicated with pneumothorax status post placement of a chest tube, removal of chest tube per pulmonology 4. History of ICH, s/p VPS placement, with subsequent externalization of drain : Neurosurg on board -ID following closely. 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 ID started pt on ampho and has ordered additional CSF testing 5. Paroxysmal A. fib: Now in sinus rhythm status post amiodarone. Cardiology on board 6. Acute renal insufficiency: Resolved. 7. s/p NSTEMI: Likely secondary to septic shock. 8. Volume overload state: HOLD DIERESIS GIVEN LOW BPS 9. Anemia: unclear why acute on chronic. Does not appear to be any blood in drains 10. Dysphagia Status post PEG tube placement 11. RUE DVT: hold lovenox given anemia Prophylaxis: SCDs CC time 30 minutes Subjective 24 Hr Interval Summary Free Text/Dictation Pressors had to be restarted this afternoon for hypotension. Also anemic this AM Exam/Review of Systems Vital Signs Vitals Vital Signs Date Time Temp Pulse Resp B/P Pulse Ox O2 Delivery O2 Flow Rate FiO2 10/17/16 17:01 89 20 100 40 10/17/16 16:45 84/52 10/17/16 16:00 98.5 Mechanical Ventilator 10/13/16 16:29 100 Intake and Output 10/16/16 10/16/1617 15:00 23:00 07:00 Intake Total 1546 ml 928 ml 1616 ml Output Total 695 ml 1275 ml 915 ml Balance 851 ml -347 ml 701 ml Exam trached, appears to repond to painful stimuli no mrg lungs clear abd drains, ostomy, PEG noted no rashes no edema chest tube still in place Results Result Diagram: 10/17/16 1450 10/17/16 0400 Results 24 hrs Laboratory Tests Test 10/17/16 04:00 10/17/16 10:14 10/17/16 14:50 White Blood Count 23.0 H 23.9 H Red Blood Count 2.27 L 2.78 #L Hemoglobin 6.6 *L 8.0 #L Hematocrit 20.1 L 23.9 L Mean Corpuscular Volume 88.5 86.0 Mean Corpuscular Hemoglobin 29.1 28.8 L Mean Corpuscular Hemoglobin Concent 32.8 33.5 Red Cell Distribution Width 21.2 H 19.8 H Platelet Count 79 L 94 L Mean Platelet Volume Neutrophils % Lymphocytes % Monocytes % Eosinophils % Basophils % Nucleated Red Blood Cells % 0.0 0.0 Neutrophils # Lymphocytes # Monocytes # Eosinophils # Basophils # Nucleated Red Blood Cells # Sodium Level 135 Potassium Level 3.8 Chloride Level 92 L Carbon Dioxide Level 33 H Anion Gap 14 Blood Urea Nitrogen 39 H Creatinine 0.59 Glucose Level 193 Calcium Level 6.8 L Phosphorus Level 3.6 Magnesium Level 1.9 Lab Scanned Report REFERENCE LAB Medications Medications Current Medications Ondansetron HCl (Zofran Inj) 4 mg Q6H PRN IV NAUSEA AND/OR VOMITING Last administered on 09/26/16 09:23; Admin Dose 4 MG; Start 09/16/16 at 00:30 Acetaminophen (Tylenol Tab) 650 mg Q6H PRN PO PAIN LEVEL 1-3 OR FEVER Last administered on 10/08/16 12:47; Admin Dose 650 MG; Start 09/16/16 at 00:30 Polyethylene Glycol 17 gm 17 gm DAILY PO Last administered on 10/17/16 10:36; Admin Dose 17 GM; Start 09/20/16 at 11:00 Norepinephrine/ Dextrose (Levophed/D5W) 500 ml @ 1.87 mls/hr TITRATE IV Last administered on 10/14/16 06:28; Admin Dose 3.75 MLS/HR; Start 09/21/16 at 09:00 Acetaminophen/ Hydrocodone Bitart (Wharton (5/325)) 1 tab Q4H PRN PO PAIN LEVEL 4 -7 Last administered on 09/28/16 21:20; Admin Dose 1 TAB; Start 09/21/16 at 15: 00 Acetaminophen/ Hydrocodone Bitart (Wharton (5/325)) 2 tab Q4H PRN PO PAIN LEVEL 7 -10; Start 09/21/16 at 15:00 Hydromorphone HCl (Dilaudid) 0.5 mg Q2H PRN IV PAIN Last administered on 16:41; Admin Dose 0.5 MG; Start 09/21/16 at 15:00 Hydromorphone HCl (Dilaudid) 1 mg Q2H PRN IV PAIN Last administered on 23:57; Admin Dose 1 MG; Start 09/21/16 at 15:00 Docusate Sodium (Colace) 100 mg BID PRN PO CONSTIPATION; Start 09/21/16 at 15: 00 Docusate Sodium (Colace Liquid Cup) 100 mg BID NGT Last administered on 10:36; Admin Dose 100 MG; Start 09/22/16 at 21:00 IV Flush (NS 10 ml) 10 ml PRN PRN IV IV PROTOCOL; Start 09/25/16 at 12:00 Spironolactone 50 mg 50 mg DAILY NGT Last administered on 10/16/16 09:49; Admin Dose 50 MG; Start 09/28/16 at 09:00 Dopamine HCl/ Dextrose 250 ml @ 6.053 mls/ hr TITRATE IV Last administered on 09/30/16 04:46; Admin Dose 6.053 MLS/HR; Start 09/29/16 at 11:00 Phenylephrine HCl/ Dextrose (Marcell-Syneph/D5W) 500 ml @ 75 mls/hr TITRATE IV ; Start 09/29/16 at 14:00 Furosemide (Lasix) 20 mg Q6 IV Last administered on 10/17/16 06:57; Admin Dose 20 MG; Start 10/05/16 at 13:00 Lorazepam 0.5 mg 0.5 mg Q6H PRN IV AGITATION/ANXIETY Last administered on 05:10; Admin Dose 0.5 MG; Start 10/05/16 at 23:00 Fentanyl 100 ml @ 2.5 mls/hr TITRATE IV Last administered on 10/16/16 23:03; Admin Dose 3 MLS/HR; Start 10/07/16 at 09:30 Tigecycline/ Sodium Chloride (Tygacil/NS) 100 ml @ 200 mls/hr Q12 IVPB Last administered on 10/17/16 10:36; Admin Dose 200 MLS/HR; Start 10/07/16 at 21:00 Pantoprazole 40 mg 40 mg BID@06,18 IV Last administered on 10/17/16 06:57; Admin Dose 40 MG; Start 10/09/16 at 18:00 Amphotericin B Liposome/Dextrose (Ambisome/D5W) 300 ml @ 150 mls/hr Q24H IVPB Last administered on 10/16/16 23:45; Admin Dose 150 MLS/HR; Start 10/14/16 at 23: 30 ALEKS RAINEY MD Oct 17, 2016 17:48
--- NOTE | 2016-10-17 18:53 | PN ---
Date/Time of Note Date/Time of Note DATE: 10/17/16 TIME: 18:51 Assessment/Plan Lines/Catheters IV Catheter Type (from Nrs): PICC Line Shore in Place (from Nrs): Yes Assessment/Plan Assessment/Plan [facility] Progress Note Date of Service: 10/17/2016 Place of service: [facility] ICU Today's Assessment & Plan: Overall has remained quasi stably critically ill. WBC up and down (elevated for the last 2 days). ? fungal infection/encephalopathy (w/u underway and antifungals added). Still has a chance to recover, but less as the number of days are passing without steady improvement. No indication for acute surgical intervention. Seems to be tolerating 60 mL/h of tube feeding. Neurologically has not been very responsive to me but nursing staff reports patient following commands. I called and updated patient's ex- over the phone. Previous assessment that still applies today: Overall stable but with failure to thrive. Abdomen continues to remain benign. Trach and PEG being used. Drainage of perihepatic fluid collection ongoing. Of great importance is adequate nutrition and I recommended that we continue the feeds through the PEG with a goal of 60 cc/h with guidance from our dietitian colleagues. With above assessment, I recommended the following for today: 1. Continue aggressive medical management with intubation; CODE STATUS at this point is DO NOT RESUSCITATE but with intubation being okay and no chest compressions or electric shocks. Chemical code is okay. 2. Continue wound VAC; dressing change 3 times a week 3. Cont aggressive pulmonary toilet 4. Cont Lasix as allowed by her clinical condition 5. Labs in am 6. Please maintain multidisciplinary discussion regarding fluid intake, CODE STATUS, and other major medical decisions since this is a fragile surgical patient with recent sepsis and shock; I changed code status to full code, but without chest compression or electric shock 7. Targeted antimicrobial therapy to culture results 8. PT/OT when patient is able to 9. Management of SEAMING INSPECTOR shunt per Dr. Miner (much appreciate the care) 10. Continue PEG gastric feeds with goal of 60 cc/h 11. Keep in the ICU 12. Social work and case management to please start working on disposition planning (rehab versus SNF) 13. Please note: Guille, who is the patient's decision maker currently, would like Mr. Yanez (patient's ex-) to still be involved in her care. He should still have full access to the hospital and patient according to Guille. 14. Tracheostomy management per Dr. Jones 15. Continue following GI recommendation for management of GI bleeding 16. Continue percutaneous drainage of perihepatic fluid collections and flushed drain. Thank you again for your great care of this very pleasant patient and wonderful family. If there are any questions, please feel free to call me at [phone]. Nature of presenting problem: High severity Please note that, given the extensive number of diagnoses or management options , the extensive amount and/or complexity of data needed to be reviewed, and I risk of complications and/or morbidity or mortality, this qualifies as high complexity type of decision-making. Disclaimer: Inadvertent spelling and grammatical errors are likely due to EHR/ dictation software use and do not reflect on the quality of delivered patient care. Also, please note that the electronic time recorded on this node does not necessarily reflect the actual time of the visit. Updated Clinical Summary: A very pleasant 70-year-old lady without significant known past medical history other than a SEAMING INSPECTOR shunt placement many years ago which she did not remember or report, presenting with what appears to be a sigmoid colon abscess or pericolonic abscess, which seemed to be a complication of diverticulitis. S/p IR drainage 09/09/16 with removal of 20 cc pus and placement of a 10 Fr. pigtail catheter at [facility]. D/c home 09/12/16. Re-presented to [place] ED 09/15/16 after being diverted from [facility] (due to internal disaster diversion) where CT was done showing adequate placement of the percutaneous drain near the sigmoid colon and decompressed sigmoid colon abscess, no obvious free air or significant spillage of stool in the abdominal cavity, and incidental finding of tail of the SEAMING INSPECTOR shunt in the pelvis (new from right upper quadrant position of the same drain on the CT scan at [facility]). Transfer to [facility] 09/15/2016 for further cares. S/p upsizing of drain to 12 Fr pigtail on 09/17/16 (communication with colon demonstrated; no obvious free communication to rest of peritoneal space). Patient decompensated in the early hours of the morning on 09/21/2016 and had to be transferred to the intensive care unit with need for endotracheal tube intubation, central line placement, and resuscitation for treatment of shock with lactic acidosis and evidence of peritonitis and free air on the new chest, abdomen, and pelvis CT scan. S/p a rather challenging sigmoid colectomy with performance of end colostomy (Reid's procedure), takedown of splenic flexure of the colon, lysis of adhesions (60 minutes), and abdominal lavage at [facility] on 09/21/16; diagnosis of colon ischemia (distal transverse colon and descending colon) during reentry through recent laparotomy incision with exploration of abdominal cavity, takedown of colostomy, completion left hemicolectomy with resection of distal transverse colon, lysis of adhesions, abdominal lavage, performance of an end colostomy [facility] 09/24/16. Extubated post op evening of 09/25/16. Decompensation with intubation and restart of pressors . Right-sided pneumothorax after drainage of right pleural effusion requiring chest tube placement 09/30/2016. Extubated 10/03/2016. Decompensation with reintubation 10/06/16. Tracheostomy and PEG placed. Perihepatic fluid collections drained 10/13/2016. Cryptococcal antigen found in the urine 2016. Antifungal therapy started. Comorbidities: 1. Perforated sigmoid colon (see below) 2. Status post ventriculoperitoneal shunt placement. 3. Status post prior hysterectomy and bilateral salpingo-oophorectomy through Pfannenstiel incision 4. S/p IR drainage 09/09/16 with removal of 20 cc pus and placement of a 10 Fr. pigtail catheter at [facility]. 5. Readmission to [facility] 09/15/16 with upsizing of drain to 12 Fr pigtail on (communication with colon demonstrated; no obvious free communication to rest of peritoneal space). Septic shock with multiorgan failure 09/21/2016 requiring ICU admission with intubation and pressors. 6. S/p a rather challenging sigmoid colectomy with performance of end colostomy (Reid's procedure), takedown of splenic flexure of the colon, lysis of adhesions (60 minutes), and abdominal lavage at [facility] on 09/21/16 7. Colon ischemia (distal transverse colon and descending colon) 8. S/p reentry through recent laparotomy incision with exploration of abdominal cavity, takedown of colostomy, completion left hemicolectomy with resection of distal transverse colon, lysis of adhesions, abdominal lavage, performance of an end colostomy [facility] 09/24/16 9. Stage I/II decubitus pressure ulcers (10/11/2016 [facility] ICU) Subjective: Remain on a ventilator with tracheostomy without major events. 1 unit of packed red blood cells were transfused. Note that the patient is on Lovenox for right upper extremity DVT. No blood noted coming out of the patient. Lethargic and not communicative, but with noticeably more energy level than the past few days. Objective: Vitals: See below I's & O's: See below Exam: GENERAL: On exam, the patient was lying in bed and appeared to be breathing comfortably on the vent. No obvious acute distress. Appears emaciated. ABDOMEN: Soft, nontender and nondistended. Incision dressings are clean, dry and intact without any obvious evidence of underlying erythema, edema, discharge , or hernia. Surgical drain ss without any evidence of enteric contents. There are no peritoneal signs or guarding. Ostomy appears to be viable and productive with stool and air in the bag. Perihepatic drain showing pus. SKIN: Skin appears to be pink and feels warm to touch. NEUROLOGIC: Patient is arousable with voice but for the most part noncommunicative and does not respond to simple commands. Remains on the ventilator with tracheostomy tube and sedated. Labs: See below Exam/Review of Systems Vital Signs Vitals Vital Signs Date Time Temp Pulse Resp B/P Pulse Ox O2 Delivery O2 Flow Rate FiO2 10/17/16 17:01 89 20 100 40 10/17/16 16:45 84/52 10/17/16 16:00 98.5 Mechanical Ventilator 10/13/16 16:29 100 Intake and Output 10/16/16 10/16/16 10/17/16 15:00 23:00 07:00 Intake Total 1546 ml 928 ml 1616 ml Output Total 695 ml 1275 ml 915 ml Balance 851 ml -347 ml 701 ml Results Result Diagram: 10/17/16 1450 10/17/16 0400 ALEXSANDER DUARTE M.D. Oct 17, 2016 18:53
[2016-10-17 19:23] LABS: CRYPTOCOCCAL ANTIGEN - SOURCE Serum
--- NOTE | 2016-10-17 19:39 | PN ---
Date/Time of Note Date/Time of Note DATE: 10/17/16 TIME: 19:39 Assessment/Plan Lines/Catheters IV Catheter Type (from Nrsg): PICC Line Sohre in Place (from Nrsg): Yes Assessment/Plan Chief Complaint/Hosp Course This is a 70-year-old female admitted with a perforated colon and contained abscess underwent a drainage procedure on further colonic procedures patient is currently in the intensive care unit unable to come off the ventilator secondary to multiple medical problems Patient was extubated and had to be input intubated again has been treated for septic shock lactic acidosis peritonitis currently has an end colostomy Helio pouch and has undergone colon resection patient also has a right-sided chest tube for a pneumothorax She was reintubated again Status post tracheostomy Tracheal site clean We will continue pulmonary toilet Trach care Vent support Problems: Subjective 24 Hr Interval Summary Constitutional: improved Pain Control: mild Exam/Review of Systems Vital Signs Vitals Vital Signs Date Time Temp Pulse Resp B/P Pulse Ox O2 Delivery O2 Flow Rate FiO2 10/17/16 19:00 88 16 101/58 100 10/17/16 18:59 35 10/17/16 18:00 Mechanical Ventilator 10/17/16 16:00 98.5 10/13/16 16:29 100 Intake and Output 10/16/16 10/16/16 10/17/16 15:00 23:00 07:00 Intake Total 1546 ml 898 ml 1651 ml Output Total 695 ml 1275 ml 1015 ml Balance 851 ml -377 ml 636 ml Exam ENMT: mucosa pink and moist, nl external ears & nose, nl lips & teeth, nl nasal mucosa & septum Neck: non-tender, supple Respiratory: clear to auscultation, normal air movement Cardiovascular: nl pulses, regular rate and rhythm Gastrointestinal: nl liver, spleen, non-tender, soft Results Result Diagram: 10/17/16 1450 10/17/16 0400 GIL PINEDA MD Oct 17, 2016 19:39
[2016-10-17 19:56] LABS: HYPOCHROMASIA 2+ (0-0); LYMPHOCYTES # 0.5 10^3/ul (0.8-2.9); MONOCYTES % (M) 4 % (0-11); MYELOCYTES % (M) 1 % (0.0-0.0); NEUTROPHIL # 21.7 10^3/ul (1.6-7.5); TARGET CELLS 1+ (0-0)
[2016-10-17] MEDS: FENTAnyl (DRIP) 1000 mcg/100mL 100 ML IV SCH (20:56)
--- NOTE | 2016-10-17 23:28 | RADRPT ---
PROCEDURE: CT head, without contrast. CLINICAL INDICATION: YOUNG ADULT LIBRARIAN shunt for evaluation of hydrocephalus. TECHNIQUE: Noncontrast CT examination of the head, with axial, sagittal and coronal reformatted im ages. Automated dose exposure control was employed. CTDI: 43.23 and DLP: 863.83 COMPARISON: CT head dated 10/12/2016. FINDINGS: Right frontal ventriculostomy tube again seen with tip at the mid lung frontal ventricles. There is no hydrocephalus. Ventricular size is similar in appearance to examination dated 10/12/2016. Chronic changes of atrophy and small vessel disease white matter again seen, without significant nidia nge. No acute hemorrhage. Subarachnoid spaces are substantially preserved and symmetric. Ventricles ar e unremarkable. No mass effect. Hoyt-white matter distinction is preserved without evident decreased attenuation t o suggest acute or recent infarct. Sinuses and osseous structures are unremarkable. IMPRESSION: No hydrocephalous. RPTAT: [facility] Physician Swetha Date Time Electronically viewed and signed by Physician Swetha on 10/17/2016 23:27 ELMER/
[2016-10-17] MEDS: AMPHOTERICIN B LIPOSOME 300 MG in DEXTROSE 5% 300 ML IVPB SCH (23:51)
[2016-10-18] VITALS (41 sets, daily range): BP systolic 66–138; BP diastolic 47–102; PULSE 80–115; RESP 14–23
[2016-10-18] MEDS: IPRATROPIUM (HFA) 12.9 GM INHALER INH SCH ×6 (01:14→20:32)
[2016-10-18] MEDS: ALBUTEROL 18 GM INHALER INH SCH ×6 (01:15→20:30)
[2016-10-18] MEDS: FUROSEMIDE 20 MG INJ IV SCH ×5 (02:00→23:31)
[2016-10-18 05:55] LABS: ABNORMAL IP MESSAGE 1; BASOPHIL # 0.1 10^3/ul (0.0-0.1); BASOPHILS % 0.2 % (0.0-2.0); HEMOGLOBIN 7.6 g/dl (12.0-16.0); LYMPHOCYTES # 0.8 10^3/ul (0.8-2.9); LYMPHOCYTES % 2.8 % (15.0-51.0); MEAN CORPUSCULAR VOLUME 84.9 fl (82.0-101.0); MONOCYTE # 1.4 10^3/ul (0.3-0.9); NEUTROPHIL # 24.6 10^3/ul (1.6-7.5); PLATELET COUNT 95 10^3/UL (140-415); RED BLOOD COUNT 2.71 10^6/ul (4.20-5.40); RED CELL DISTRIBUTION WIDTH 20.4 % (11.5-14.5); WHITE BLOOD COUNT 27.2 10^3/ul (4.8-10.8)
[2016-10-18] MEDS: PANTOPRAZOLE 40 MG INJ IV SCH ×2 (06:09→18:18)
[2016-10-18 06:21] LABS: NEUTROPHILS % 90.3 % (39.0-77.0); POSITIVE DIFF @See below
[2016-10-18 06:32] LABS: CALCIUM 6.7 mg/dl (8.4-10.2); CREATININE 0.59 mg/dl (0.44-1.00); PHOSPHORUS 4.3 mg/dl (2.5-4.9); POTASSIUM 3.7 mmol/L (3.5-5.1)
--- NOTE | 2016-10-18 08:26 | PN ---
DATE: 10/18/2016 SUBJECTIVE DATA: The patient remains in critical condition. No other acute events noted. No hemoptysis, hematemesis, or hematochezia. OBJECTIVE DATA: VITAL SIGNS: Blood pressure is 102/53, respirations 18, pulse 98, temperature 98.0. I and O, the patient's 3.7 L in and 2.9 L out. HEENT: Head is normocephalic. NECK: Supple. HEART: Regular rate. LUNGS: Diminished breath sounds base. ABDOMEN: Soft, nontender to palpation. Positive ostomy. Positive drain. EXTREMITIES: Negative for clubbing, cyanosis. Positive edema. DERMATOLOGIC: Clean. No rashes. MUSCULOSKELETAL: No joint effusion. NEUROLOGIC: No change in exam. MEDICATIONS: Reviewed. LABORATORY AND DIAGNOSTIC DATA: Sodium 135, potassium 3.7, BUN 41, and creatinine 0.459. White count 27.2, hemoglobin 7.6, hematocrit 23, and platelet count is 95. The patient's cultures have been reviewed. CT scan of the brain shows no hydrocephalus. Chest x-ray continues to show infiltrates. ASSESSMENT AND PLAN: 1. Nonoliguric acute kidney injury. Etiology secondary to acute tubular necrosis (ATN). Renal function appears to be stabilized. At this point, continue current treatment. Supportive care. Renally dose all meds. 2. Hyponatremia, improved. 3. Hypokalemia. Continue potassium protocol. 4. Volume overload. Anasarca, continue diuretic therapy. 5. Sepsis status post shock. Etiology secondary to pneumonia. The patient is on broad-spectrum antibiotics. The patient's white count is increasing. We will defer to Infectious Disease. 6. Anemia. The patient's hemoglobin remains low, consider blood transfusion. 7. bone disorder. Monitor calcium and phosphorus levels. 8. Acute respiratory failure. Vent settings reviewed. ABGs reviewed. Continue to monitor. 9. Perforated viscus. Status post colectomy with colostomy bag. 10. Abdominal abscess. Status post drain placement. 11. Dysphagia. Continue tube feeding. 12. Status post BURRER MARKER AXLE shunt. 13. Paroxysmal Atrial fibrillation, now in sinus rhythm. 14. Right lower extremity deep venous thrombosis (DVT). Lovenox currently on hold secondary to anemia. Dictated By: Agustin Sanchez DO /rhina/shari /Document#: [id number]
--- NOTE | 2016-10-18 08:55 | PN ---
Date/Time of Note Date/Time of Note DATE: 10/18/16 TIME: 08:54 Assessment/Plan Lines/Catheters IV Catheter Type (from Nrsg): PICC Line Shore in Place (from Nrsg): Yes Assessment/Plan Chief Complaint/Hosp Course This is a 70-year-old female admitted with a perforated colon and contained abscess underwent a drainage procedure on further colonic procedures patient is currently in the intensive care unit unable to come off the ventilator secondary to multiple medical problems Patient was extubated and had to be input intubated again has been treated for septic shock lactic acidosis peritonitis currently has an end colostomy Helio pouch and has undergone colon resection patient also has a right-sided chest tube for a pneumothorax She was reintubated again Status post tracheostomy Tracheal site clean We will continue pulmonary toilet Trach care CT removed Vent support Problems: Subjective 24 Hr Interval Summary Constitutional: improved Pain Control: mild Exam/Review of Systems Vital Signs Vitals Vital Signs Date Time Temp Pulse Resp B/P Pulse Ox O2 Delivery O2 Flow Rate FiO2 10/18/16 07:30 105 18 95 35 10/18/16 06:00 102/53 Mechanical Ventilator 10/18/16 04:00 98.0 Intake and Output 10/17/16 10/17/16 10/18/16 15:00 23:00 07:00 Intake Total 1915 ml 1415.0 ml 361 ml Output Total 1020 ml 970 ml 810 ml Balance 895 ml 445.0 ml -449 ml Exam Neck: non-tender, supple Respiratory: clear to auscultation, normal air movement Cardiovascular: nl pulses, regular rate and rhythm Gastrointestinal: nl liver, spleen, non-tender, soft Results Result Diagram: 10/18/16 0436 10/18/16 0436 GIL PINEDA MD Oct 18, 2016 08:55
--- NOTE | 2016-10-18 09:19 | QN ---
Documentation Comment Patient has had stable ventricular size with externalized REHAB THERAPIST shunt clamped. She remains neurologically responsive. Remains critically ill. At this time, it seems highly likely that she does not require ongoing CSF diversion. Plan ligation of REHAB THERAPIST shunt below valve; this is smallest and least invasive option for dealing with shunt which is not needed. Less risk than removal of entire hardware. D/W family member at bedside and cousin over phone to obtain consent. Risks are small risk of causing infection, medical risks given her overall condition, and very small chance that it will barrel turner over time that she actually does need CSF diversion. D/W DR Viramontes that there is no medical reason to delay procedure since risks not expected to decrease in near future. NIRAJ LANDRY MD Oct 18, 2016 09:18
[2016-10-18] MEDS: DOCUSATE SODIUM 10 MG/ML (10ML CUP) NGT SCH ×2 (10:20→20:52)
[2016-10-18] MEDS: TIGECYCLINE 50 MG in SOD CHLORIDE 0.9% 100 ML IVPB SCH ×2 (10:20→20:53)
[2016-10-18] MEDS: BALSAM PERU/CASTOR OIL 60 GM TUBE TOP SCH (10:21)
[2016-10-18] MEDS: POLYETHYLENE GLYCOL 17 GM PACKET PO SCH (10:21)
[2016-10-18] MEDS: SPIRONOLACTONE 50 MG TAB NGT SCH (10:21)
[2016-10-18] MEDS ORDERED: NEOMYC/POLYMYX/BACIT 30 GM OINT ONE (11:31)
[2016-10-18] MEDS ORDERED: LIDOCAINE 2%/EPI 30 ML INJ ONE (11:31)
[2016-10-18] MEDS ORDERED: POLYMYXIN/BACITRACIN 1L IRRIG ONE (11:31)
[2016-10-18] MEDS ORDERED: PROPOFOL 20 ML ONE (11:40)
[2016-10-18] MEDS ORDERED: LIDOCAINE 2% (SDV) 5 ML INJ ONE (11:40)
[2016-10-18] MEDS ORDERED: MIDAZOLAM 1 MG/ML 2 ML INJ ONE (11:41)
[2016-10-18] MEDS ORDERED: GLYCOPYRROLATE 0.4 MG INJ ONE (11:41)
[2016-10-18] MEDS ORDERED: NEOSTIGMINE 3 MG/3 ML SYRINGE ONE (11:41)
[2016-10-18] MEDS ORDERED: ROCURONIUM 50 MG INJ ONE (11:41)
[2016-10-18] MEDS ORDERED: FENTAnyl 50 MCG/ML VIAL ONE (11:41)
[2016-10-18] MEDS ORDERED: SUGAMMADEX SODIUM 200 MG/2 ML VIAL IV ONE (11:42)
[2016-10-18] MEDS ORDERED: VANCOMYCIN 1 GM INJ ONE (12:09)
[2016-10-18] MEDS ORDERED: POLYMYXIN/BACITRACIN 1L IRRIG IRR ONE (12:22)
--- NOTE | 2016-10-18 12:37 | OPR ---
Date/Time of Note Date/Time of Note DATE: 10/18/16 TIME: 12:36 Operative Report Preoperative Diagnosis No hydrocephalus Postoperative Diagnosis same Operation/Procedure Performed ligation of OUTSIDE MACHINIST APPRENTICE shunt with removal of distal shunt Surgeon: NIRAJ LANDRY MD Anesthesia Type: general Estimated Blood Loss: minimal Transfusion Required: no Specimen: none Grafts/Implants: none Complications: no NIRAJ LANDRY MD Oct 18, 2016 12:37
[2016-10-18] MEDS ORDERED: FLUMAZENIL 0.5 MG INJ ONE (12:43)
--- NOTE | 2016-10-18 12:47 | OPR ---
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 Several weeks ago the shunt was externalized. While externalized, a challenge was performed, and the patient tolerated clamping for over one week with no change in neurological condition and no enlargement of ventricles. At this time, it appeared that she no longer required CSF diversion, and I recommended ligation with removal of distal shunt. This was discussed with patient's family members who understood risks including infection, medical complications, and risk that she would be proven over time to require CSF diversion with need for replacement of shunt. Consent was provided by phone. Operative\Procedure Findings Tubing ligated with hemoclips behind R ear. Procedure Description The patient was brought to the operating room and positioned in supine position on the operating table. She already had tracheotomy in place and general anesthesia was induced. She was properly padded and secured and her head was placed on foam donut. The area behind the R ear overlying palpable tubing was clipped and was sterilly prepped and draped in the usual fashion. The scalp was infiltrated with Xylocaine with epinephrine. An approximately 2cm incision was made just anterior to the tubing, and bleeding was controlled from skin edges with monopolar cautery. The monopolar was then used to come to the tubing, which was exposed. 2 medium hemoclips were used to ligate the tubing, and the tubing was then divided with scissors just distally. The anesthesiologist then pulled out the distal tubing from the site of externalization at the clavicle. Next, the subcutaneous tissue was closed with inverted, interrupted 2-0 Vicryl sutures, and the skin was closed with 3-0 Nylon in simple running fashion. After dressing this incision, several sutures were removed at the clavicle and that area was dressed as well. The patient was allowed to awaken and was then transported back to the ICU in critical condition. NIRAJ LANDRY MD Oct 18, 2016 12:47
[2016-10-18] MEDS ORDERED: BUPIVACAINE 0.25% (MPF) 30 ML INJ ONE (14:12)
--- NOTE | 2016-10-18 14:29 | PN ---
Date/Time of Note Date/Time of Note DATE: 10/18/16 TIME: 14:26 Assessment/Plan Lines/Catheters IV Catheter Type (from Nrs): PICC Line Shore in Place (from Nrs): Yes Assessment/Plan Assessment/Plan [facility] Progress Note Date of Service: 10/18/2016 Place of service: [facility] ICU Today's Assessment & Plan: Overall has remained quasi stably critically ill. WBC up and down (elevated for the last 3 days). ? fungal infection/encephalopathy (w/u underway and on antifungals). Still has a chance to recover, but less as the number of days are passing without steady improvement. No indication for acute surgical intervention. Seems to be tolerating 60 mL/h of tube feeding. Neurologically has not been very responsive to me but nursing staff reports patient following commands. I spoke in person with and updated patient's ex- and answered numerous questions. Previous assessment that still applies today: Overall stable but with failure to thrive. Abdomen continues to remain benign. Trach and PEG being used. Drainage of perihepatic fluid collection ongoing. Of great importance is adequate nutrition and I recommended that we continue the feeds through the PEG with a goal of 60 cc/h with guidance from our dietitian colleagues. With above assessment, I recommended the following for today: 1. Continue aggressive medical management with intubation; CODE STATUS at this point is DO NOT RESUSCITATE but with intubation being okay and no chest compressions or electric shocks. Chemical code is okay. 2. Continue wound VAC; dressing change 3 times a week 3. Cont aggressive pulmonary toilet 4. Cont Lasix as allowed by her clinical condition 5. Labs in am 6. Please maintain multidisciplinary discussion regarding fluid intake, CODE STATUS, and other major medical decisions since this is a fragile surgical patient with recent sepsis and shock; I changed code status to full code, but without chest compression or electric shock 7. Targeted antimicrobial therapy to culture results 8. PT/OT when patient is able to 9. Management of CONSTRUCTION AREA MANAGER shunt per Dr. Miner (much appreciate the care) 10. Continue PEG gastric feeds with goal of 60 cc/h 11. Keep in the ICU 12. Social work and case management to please start working on disposition planning (rehab versus SNF) 13. Please note: Guille, who is the patient's decision maker currently, would like Mr. Yanez (patient's ex-) to still be involved in her care. He should still have full access to the hospital and patient according to Guille. 14. Tracheostomy management per Dr. Jones 15. Continue following GI recommendation for management of GI bleeding 16. Continue percutaneous drainage of perihepatic fluid collections and flushed drain. 17. Treat for oral thrush Thank you again for your great care of this very pleasant patient and wonderful family. If there are any questions, please feel free to call me at [phone]. Nature of presenting problem: High severity Please note that, given the extensive number of diagnoses or management options , the extensive amount and/or complexity of data needed to be reviewed, and I risk of complications and/or morbidity or mortality, this qualifies as high complexity type of decision-making. Disclaimer: Inadvertent spelling and grammatical errors are likely due to EHR/ dictation software use and do not reflect on the quality of delivered patient care. Also, please note that the electronic time recorded on this node does not necessarily reflect the actual time of the visit. Updated Clinical Summary: A very pleasant 70-year-old lady without significant known past medical history other than a CONSTRUCTION AREA MANAGER shunt placement many years ago which she did not remember or report, presenting with what appears to be a sigmoid colon abscess or pericolonic abscess, which seemed to be a complication of diverticulitis. S/p IR drainage 09/09/16 with removal of 20 cc pus and placement of a 10 Fr. pigtail catheter at [facility]. D/c home 09/12/16. Re-presented to [place] ED 09/15/16 after being diverted from [facility] (due to internal disaster diversion) where CT was done showing adequate placement of the percutaneous drain near the sigmoid colon and decompressed sigmoid colon abscess, no obvious free air or significant spillage of stool in the abdominal cavity, and incidental finding of tail of the CONSTRUCTION AREA MANAGER shunt in the pelvis (new from right upper quadrant position of the same drain on the CT scan at [facility]). Transfer to [facility] 09/15/2016 for further cares. S/p upsizing of drain to 12 Fr pigtail on 09/17/16 (communication with colon demonstrated; no obvious free communication to rest of peritoneal space). Patient decompensated in the early hours of the morning on 09/21/2016 and had to be transferred to the intensive care unit with need for endotracheal tube intubation, central line placement, and resuscitation for treatment of shock with lactic acidosis and evidence of peritonitis and free air on the new chest, abdomen, and pelvis CT scan. S/p a rather challenging sigmoid colectomy with performance of end colostomy (Reid's procedure), takedown of splenic flexure of the colon, lysis of adhesions (60 minutes), and abdominal lavage at [facility] on 09/21/16; diagnosis of colon ischemia (distal transverse colon and descending colon) during reentry through recent laparotomy incision with exploration of abdominal cavity, takedown of colostomy, completion left hemicolectomy with resection of distal transverse colon, lysis of adhesions, abdominal lavage, performance of an end colostomy [facility] 09/24/16. Extubated post op evening of 09/25/16. Decompensation with intubation and restart of pressors . Right-sided pneumothorax after drainage of right pleural effusion requiring chest tube placement 09/30/2016. Extubated 10/03/2016. Decompensation with reintubation 10/06/16. Tracheostomy and PEG placed. Perihepatic fluid collections drained 10/13/2016. Cryptococcal antigen found in the urine 2016. Antifungal therapy started. Comorbidities: 1. Perforated sigmoid colon (see below) 2. Status post ventriculoperitoneal shunt placement. 3. Status post prior hysterectomy and bilateral salpingo-oophorectomy through Pfannenstiel incision 4. S/p IR drainage 09/09/16 with removal of 20 cc pus and placement of a 10 Fr. pigtail catheter at [facility]. 5. Readmission to [facility] 09/15/16 with upsizing of drain to 12 Fr pigtail on (communication with colon demonstrated; no obvious free communication to rest of peritoneal space). Septic shock with multiorgan failure 09/21/2016 requiring ICU admission with intubation and pressors. 6. S/p a rather challenging sigmoid colectomy with performance of end colostomy (Reid's procedure), takedown of splenic flexure of the colon, lysis of adhesions (60 minutes), and abdominal lavage at [facility] on 09/21/16 7. Colon ischemia (distal transverse colon and descending colon) 8. S/p reentry through recent laparotomy incision with exploration of abdominal cavity, takedown of colostomy, completion left hemicolectomy with resection of distal transverse colon, lysis of adhesions, abdominal lavage, performance of an end colostomy [facility] 09/24/16 9. Stage I/II decubitus pressure ulcers (10/11/2016 [facility] ICU) Subjective: Remain on a ventilator with tracheostomy without major events. Lethargic and not communicative. Seem to be listening a bit better today. Objective: Vitals: See below I's & O's: See below Exam: GENERAL: On exam, the patient was lying in bed and appeared to be breathing comfortably on the vent. No obvious acute distress. Appears emaciated. ABDOMEN: Soft, nontender and nondistended. Incision dressings are clean, dry and intact without any obvious evidence of underlying erythema, edema, discharge , or hernia. Surgical drain ss without any evidence of enteric contents. There are no peritoneal signs or guarding. Ostomy appears to be viable and productive with stool and air in the bag. Perihepatic drain showing pus. SKIN: Skin appears to be pink and feels warm to touch. NEUROLOGIC: Patient is arousable with voice but for the most part noncommunicative and does not respond to simple commands. Remains on the ventilator with tracheostomy tube and sedated. Labs: See below Exam/Review of Systems Vital Signs Vitals Vital Signs Date Time Temp Pulse Resp B/P Pulse Ox O2 Delivery O2 Flow Rate FiO2 10/18/16 13:03 97.6 10/18/16 13:00 100 20 100 35 10/18/16 06:00 102/53 Mechanical Ventilator Intake and Output 10/17/16 10/17/16 10/18/16 15:00 23:00 07:00 Intake Total 1915 ml 1415.0 ml 361 ml Output Total 1020 ml 970 ml 810 ml Balance 895 ml 445.0 ml -449 ml Results Result Diagram: 10/18/16 0436 10/18/16 0436 ALEXSANDER DUARTE M.D. Oct 18, 2016 14:29
--- NOTE | 2016-10-18 14:56 | CONS ---
Date/Time of Note Date/Time of Note DATE: 10/18/16 TIME: 14:54 Consult Date/Type/Reason Admit Date/Time Sep 15, 2016 at 21:35 Initial Consult Date 09/21/16 Type of Consultation: Pulmonary Subjective Patient remains stable. Status post shunt ligation. Chest tube removed yesterday. Remains mildly hypotensive but asymptomatic. Objective Vital Signs Date Time Temp Pulse Resp B/P Pulse Ox O2 Delivery O2 Flow Rate FiO2 10/18/16 13:03 97.6 10/18/16 13:00 100 20 100 35 10/18/16 06:00 102/53 Mechanical Ventilator Intake and Output 10/17/16 10/17/16 10/18/16 14:59 22:59 06:59 Intake Total 1918 ml 1422.5 ml 423.5 ml Output Total 1050 ml 1005 ml 870 ml Balance 868 ml 417.5 ml -446.5 ml Exam PHYSICAL EXAMINATION GENERAL: Elderly lady on mechanical ventilation via tracheostomy VITAL SIGNS: see below. HEENT: Pupils equal, round, and reactive to light. Tracheostomy site clean and intact. CARDIAC: S1, S2, 1/6 systolic ejection murmur CHEST: Diminished air entry bilaterally. ABDOMEN: Mildly distended. Bowel sounds present no guarding or rebound EXTREMITIES: No cyanosis, clubbing edema +1 NEUROLOGIC: Generalized weakness Results/Medications Result Diagram: 10/18/16 0436 10/18/16 0436 Results 24 hrs Laboratory Tests Test 10/18/16 04:36 10/18/16 05:17 White Blood Count 27.2 H Red Blood Count 2.71 L Hemoglobin 7.6 L Hematocrit 23.0 L Mean Corpuscular Volume 84.9 Mean Corpuscular Hemoglobin 28.0 L Mean Corpuscular Hemoglobin Concent 33.0 Red Cell Distribution Width 20.4 H Platelet Count 95 L Mean Platelet Volume Neutrophils % 90.3 H Lymphocytes % 2.8 L Monocytes % 5.0 Eosinophils % 0.0 Basophils % 0.2 Nucleated Red Blood Cells % 0.0 Neutrophils # 24.6 H Lymphocytes # 0.8 Monocytes # 1.4 H Eosinophils # 0.0 Basophils # 0.1 Nucleated Red Blood Cells # 0.0 Sodium Level 135 Potassium Level 3.7 Chloride Level 95 L Carbon Dioxide Level 31 Anion Gap 13 Blood Urea Nitrogen 41 H Creatinine 0.59 Glucose Level 174 Calcium Level 6.7 L Phosphorus Level 4.3 Magnesium Level 2.0 Lab Scanned Report BLOOD TRANSFUSION Medications Current Medications Ondansetron HCl (Zofran Inj) 4 mg Q6H PRN IV NAUSEA AND/OR VOMITING Last administered on 09/26/16 09:23; Admin Dose 4 MG; Start 09/16/16 at 00:30 Acetaminophen (Tylenol Tab) 650 mg Q6H PRN PO PAIN LEVEL 1-3 OR FEVER Last administered on 10/08/16 12:47; Admin Dose 650 MG; Start 09/16/16 at 00:30 Polyethylene Glycol 17 gm 17 gm DAILY PO Last administered on 10/18/16 10:21; Admin Dose 17 GM; Start 09/20/16 at 11:00 Norepinephrine/ Dextrose (Levophed/D5W) 500 ml @ 1.87 mls/hr TITRATE IV Last administered on 10/14/16 06:28; Admin Dose 3.75 MLS/HR; Start 09/21/16 at 09:00 Acetaminophen/ Hydrocodone Bitart ([place] (5/325)) 1 tab Q4H PRN PO PAIN LEVEL 4 -7 Last administered on 09/28/16 21:20; Admin Dose 1 TAB; Start 09/21/16 at 15: 00 Acetaminophen/ Hydrocodone Bitart ([place] (5/325)) 2 tab Q4H PRN PO PAIN LEVEL 7 -10; Start 09/21/16 at 15:00 Hydromorphone HCl (Dilaudid) 0.5 mg Q2H PRN IV PAIN Last administered on 16:41; Admin Dose 0.5 MG; Start 09/21/16 at 15:00 Hydromorphone HCl (Dilaudid) 1 mg Q2H PRN IV PAIN Last administered on 23:57; Admin Dose 1 MG; Start 09/21/16 at 15:00 Docusate Sodium (Colace) 100 mg BID PRN PO CONSTIPATION; Start 09/21/16 at 15: 00 Docusate Sodium (Colace Liquid Cup) 100 mg BID NGT Last administered on 10:20; Admin Dose 100 MG; Start 09/22/16 at 21:00 IV Flush (NS 10 ml) 10 ml PRN PRN IV IV PROTOCOL; Start 09/25/16 at 12:00 Spironolactone 50 mg 50 mg DAILY NGT Last administered on 10/18/16 10:21; Admin Dose 50 MG; Start 09/28/16 at 09:00 Dopamine HCl/ Dextrose 250 ml @ 6.053 mls/ hr TITRATE IV Last administered on 09/30/16 04:46; Admin Dose 6.053 MLS/HR; Start 09/29/16 at 11:00 Phenylephrine HCl/ Dextrose (Marcell-Syneph/D5W) 500 ml @ 75 mls/hr TITRATE IV ; Start 09/29/16 at 14:00 Furosemide (Lasix) 20 mg Q6 IV Last administered on 10/18/16 13:14; Admin Dose 20 MG; Start 10/05/16 at 13:00 Lorazepam 0.5 mg 0.5 mg Q6H PRN IV AGITATION/ANXIETY Last administered on 05:10; Admin Dose 0.5 MG; Start 10/05/16 at 23:00 Fentanyl 100 ml @ 2.5 mls/hr TITRATE IV Last administered on 10/17/16 20:56; Admin Dose 2.5 MLS/HR; Start 10/07/16 at 09:30 Tigecycline/ Sodium Chloride (Tygacil/NS) 100 ml @ 200 mls/hr Q12 IVPB Last administered on 10/18/16 10:20; Admin Dose 200 MLS/HR; Start 10/07/16 at 21:00 Pantoprazole 40 mg 40 mg BID@06,18 IV Last administered on 10/18/16 06:09; Admin Dose 40 MG; Start 10/09/16 at 18:00 Amphotericin B Liposome/Dextrose (Ambisome/D5W) 300 ml @ 150 mls/hr Q24H IVPB Last administered on 10/17/16 23:51; Admin Dose 150 MLS/HR; Start 10/14/16 at 23 :30 Assessment/Plan Chief Complaint/Hosp Course IMP: 1. Status post septic shock 2. Intra-abdominal abscess status post drainage with persistent leukocytosis possible cryptococcal infection. 3. Encephalopathy toxic metabolic 4. VDRF 5. Hypernatremia 6. Hypokalemia 7. bilateral infiltrates, small effusions. 8. Deep vein thrombosis right upper extremity anticoagulation held secondary to drop in hemoglobin 9. History of MANAGER NET shunt status post surgical intervention. Now with shunt ligation 10. Status post right-sided pneumothorax following thoracentesis. Chest tube removed . RECS: 1. Continue surgery recommendations 2. Vasopressors as needed to MAP > 65 mmHg 3. Vent support 4. Replete K+ and Mg 5. Consider transfusion 1 unit packed red blood cells for hemodynamic support 6. Continue ID recommendations 35 min cc time Problems: DAMIEN GUADARRAMA MD, [facility] Oct 18, 2016 14:56
--- NOTE | 2016-10-18 16:35 | PN ---
Date/Time of Note Date/Time of Note DATE: 10/18/16 TIME: 16:32 Assessment/Plan VTE Prophylaxis VTE Prophylaxis Intervention: SCD's Lines/Catheters IV Catheter Type (from Nrs): PICC Line Central line still needed: Yes Urinary Cath still in place: Yes Reason Cath still needed: other (indicate) (critically ill) Assessment/Plan Assessment/Plan 70 yo F with h/o hydrocephalus with previous VPS admitted for sigmoid abscess. hospital stay cb sepsis, colon perforation with multiple abd fluid collections , also recurrent respiratory failure warranting trach, pleural effusion with thora c/b by PTX. 1. Sigmoid colon abscess,2/2 diverticulitis - s/p sigmoid colectomy with end colostomy (Reid's procedure) and adhesiolysis on 09/21/16 - cont abx and gen surg care 2. Ventilator dependent respiratory failure: sp trach 3 Left pleural effusion: Status post thoracentesis, complicated with pneumothorax status post placement of a chest tube, removal of chest tube per pulmonology CHEST TUBE PULLED TODAY 8.11 4. History of ICH, s/p VPS placement, with subsequent externalization of drain : Neurosurg on board -ID following closely. 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 ID started pt on ampho and has ordered additional CSF testing DRAIN PULLED 8.11 BY NS 5. Paroxysmal A. fib: Now in sinus rhythm status post amiodarone. Cardiology on board 6. Acute renal insufficiency: Resolved. 7. s/p NSTEMI: Likely secondary to septic shock. 8. Volume overload state: HOLD DIERESIS GIVEN LOW BPS 9. Anemia: unclear etio of acute on chronic. Does not appear to be any blood in drains 10. Dysphagia Status post PEG tube placement 11. RUE DVT: hold lovenox given anemia Prophylaxis: SCDs CC time 30 minutes Subjective 24 Hr Interval Summary Free Text/Dictation BP still borderline. NS intervention today. Exam/Review of Systems Vital Signs Vitals Vital Signs Date Time Temp Pulse Resp B/P Pulse Ox O2 Delivery O2 Flow Rate FiO2 10/18/16 15:43 102 16 100 35 10/18/16 15:00 99/73 Mechanical Ventilator 10/18/16 13:03 97.6 Intake and Output 10/17/16 10/17/16 10/18/16 15:00 23:00 07:00 Intake Total 1915 ml 1415.0 ml 361 ml Output Total 1020 ml 970 ml 810 ml Balance 895 ml 445.0 ml -449 ml Exam laying in bed trach site c/d/i no mrg abd drains and ostomy noted no rashes Results Result Diagram: 10/18/16 0436 10/18/16 0436 Results 24 hrs Laboratory Tests Test 10/18/16 04:36 10/18/16 05:17 White Blood Count 27.2 H Red Blood Count 2.71 L Hemoglobin 7.6 L Hematocrit 23.0 L Mean Corpuscular Volume 84.9 Mean Corpuscular Hemoglobin 28.0 L Mean Corpuscular Hemoglobin Concent 33.0 Red Cell Distribution Width 20.4 H Platelet Count 95 L Mean Platelet Volume Neutrophils % 90.3 H Lymphocytes % 2.8 L Monocytes % 5.0 Eosinophils % 0.0 Basophils % 0.2 Nucleated Red Blood Cells % 0.0 Neutrophils # 24.6 H Lymphocytes # 0.8 Monocytes # 1.4 H Eosinophils # 0.0 Basophils # 0.1 Nucleated Red Blood Cells # 0.0 Sodium Level 135 Potassium Level 3.7 Chloride Level 95 L Carbon Dioxide Level 31 Anion Gap 13 Blood Urea Nitrogen 41 H Creatinine 0.59 Glucose Level 174 Calcium Level 6.7 L Phosphorus Level 4.3 Magnesium Level 2.0 Lab Scanned Report BLOOD TRANSFUSION Medications Medications Current Medications Ondansetron HCl (Zofran Inj) 4 mg Q6H PRN IV NAUSEA AND/OR VOMITING Last administered on 09/26/16 09:23; Admin Dose 4 MG; Start 09/16/16 at 00:30 Acetaminophen (Tylenol Tab) 650 mg Q6H PRN PO PAIN LEVEL 1-3 OR FEVER Last administered on 10/08/16 12:47; Admin Dose 650 MG; Start 09/16/16 at 00:30 Polyethylene Glycol 17 gm 17 gm DAILY PO Last administered on 10/18/16 10:21; Admin Dose 17 GM; Start 09/20/16 at 11:00 Norepinephrine/ Dextrose (Levophed/D5W) 500 ml @ 1.87 mls/hr TITRATE IV Last administered on 10/14/16 06:28; Admin Dose 3.75 MLS/HR; Start 09/21/16 at 09:00 Acetaminophen/ Hydrocodone Bitart ([place] (5/325)) 1 tab Q4H PRN PO PAIN LEVEL 4 -7 Last administered on 09/28/16 21:20; Admin Dose 1 TAB; Start 09/21/16 at 15: 00 Acetaminophen/ Hydrocodone Bitart ([place] (5/325)) 2 tab Q4H PRN PO PAIN LEVEL 7 -10; Start 09/21/16 at 15:00 Hydromorphone HCl (Dilaudid) 0.5 mg Q2H PRN IV PAIN Last administered on 16:41; Admin Dose 0.5 MG; Start 09/21/16 at 15:00 Hydromorphone HCl (Dilaudid) 1 mg Q2H PRN IV PAIN Last administered on 23:57; Admin Dose 1 MG; Start 09/21/16 at 15:00 Docusate Sodium (Colace) 100 mg BID PRN PO CONSTIPATION; Start 09/21/16 at 15: 00 Docusate Sodium (Colace Liquid Cup) 100 mg BID NGT Last administered on 10:20; Admin Dose 100 MG; Start 09/22/16 at 21:00 IV Flush (NS 10 ml) 10 ml PRN PRN IV IV PROTOCOL; Start 09/25/16 at 12:00 Spironolactone 50 mg 50 mg DAILY NGT Last administered on 10/18/16 10:21; Admin Dose 50 MG; Start 09/28/16 at 09:00 Dopamine HCl/ Dextrose 250 ml @ 6.053 mls/ hr TITRATE IV Last administered on 09/30/16 04:46; Admin Dose 6.053 MLS/HR; Start 09/29/16 at 11:00 Phenylephrine HCl/ Dextrose (Marcell-Syneph/D5W) 500 ml @ 75 mls/hr TITRATE IV ; Start 09/29/16 at 14:00 Furosemide (Lasix) 20 mg Q6 IV Last administered on 10/18/16 13:14; Admin Dose 20 MG; Start 10/05/16 at 13:00 Lorazepam 0.5 mg 0.5 mg Q6H PRN IV AGITATION/ANXIETY Last administered on 05:10; Admin Dose 0.5 MG; Start 10/05/16 at 23:00 Fentanyl 100 ml @ 2.5 mls/hr TITRATE IV Last administered on 10/17/16 20:56; Admin Dose 2.5 MLS/HR; Start 10/07/16 at 09:30 Tigecycline/ Sodium Chloride (Tygacil/NS) 100 ml @ 200 mls/hr Q12 IVPB Last administered on 10/18/16 10:20; Admin Dose 200 MLS/HR; Start 10/07/16 at 21:00 Pantoprazole 40 mg 40 mg BID@06,18 IV Last administered on 10/18/16 06:09; Admin Dose 40 MG; Start 10/09/16 at 18:00 Amphotericin B Liposome/Dextrose (Ambisome/D5W) 300 ml @ 150 mls/hr Q24H IVPB Last administered on 10/17/16 23:51; Admin Dose 150 MLS/HR; Start 10/14/16 at 23 :30 ALEKS RAINEY MD Oct 18, 2016 16:35
[2016-10-18] MEDS: FENTAnyl (DRIP) 1000 mcg/100mL 100 ML IV SCH (18:18)
[2016-10-18] MEDS ORDERED: ALTEPLASE (CATHFLO) 2 MG INJ CATHETER PRN (19:30)
--- NOTE | 2016-10-18 20:28 | CONS ---
Date/Time of Note Date/Time of Note DATE: 10/18/16 TIME: 20:21 Assessment/Plan Assessment/Plan Chief Complaint/Hosp Course ID PROGRESS NOTE CURRENT ABX => TYGACIL #12 + AMPHO B #5 TOTAL ABX DAY #30 s/p Cancidas #15 =>Cipro start 09/17 => VANCO IV + MERREM + FLAGYL #8-> DC'd 10/07 24H INTERVAL SUMMARY * Clinically not much change -- obtunded, critically ill on the Vent, no fevers , WBC * (+)Cryptococcal antigen serology =>SOURCE UNCLEAR== Per Dr. Sevilla/Chantel possible inhaled [place] Droppings * Awaiting final CSF testing Michaela Ink, Cryptococcal, fungal cx, etc * CSF fluid only 1 WBC = GLU 84 (near normal) Protein normal ? = CSF fluid not compelling -- await cryptococcal ag & fungal Cx x * Not sure where to find scanned [facility] diagnostic reports ? HOSPITAL EVENTS: * s/p 09/21/16 Sigmoid colectomy with performance of end colostomy (Reid's procedure), w/Lysis of adhesions. * s/p 09/21/16 Externalization of [employer] shunt. INDICATION: Possible [employer] shunt infection, ABD abscess * Extubated 10/03 * RE-intubated 09/29 * s/p Left THORA 10/01 * Extubated 10/03 * Re-Intubated 10/06 * 10/10/16 PEG EXAM: 70 yo F ->obtunted on the Vent HEENT:Orally intubated -> Vent Neck: trachea midline. Heart: S1, S2 CXT: chest rise symmetrical breath sounds clear, diminished basis. ABD: Soft, Wound Vac + Colostomy Extremities without cyanosis, (+) edema x4 = dependent edema ID ASSESSMENT 70 yo F w/PMHx ICH and [employer] shunt admit with: 1. Sepsis w/shock , s/p lactic acidosis => Back on pressors 10/06/16 * (+)Leukocytosis * (+)Fevers >101.5 10/07 2. s/p 09/21/16 Externalization of [employer] shunt. INDICATION: Possible [employer] shunt infection, ABD abscess * (+)Cryptococcal antigen serology =>SOURCE UNCLEAR? * CSF fluid only 1 WBC = GLU 84 (near normal) Protein normal ? = CSF fluid not compelling -- await cryptococcal ag & fungal Cx x 3. Intra-ABD abscess-> 10/13/16 CT guided drainage * s/p Perforated sigmoid colon w/abscess: POD#-> s/p 09/21/16 Sigmoid colectomy with performance of end colostomy (Reid's procedure), w/Lysis of adhesions. * MICRO: 09/23/16 BODY FLUID CULTURE Final Organism 1 ENTEROCOCCUS SPECIES Organism 2 COAGULASE NEGATIVE STAPH Organism 3 ALPHA HEMOLYTIC STREP SPP . VIRIDANS GROUP 4. Acute respiratory failure -> orally RE-intubated 10/06 * Likely endovascular infection with septic pulm emboli 5. CHF w/elevated BNP => (+)Anasarca w/Pleural effusions s/p CT drain 09/30 6. Bilateral PNA == Present on admission 7. NOW (+)VAP => Ventilator associated PNA == superimposed on pulmonary process POA * 10/02/ ETT aspirate (+) MOLD + yeast ->DDx contaminant, submit new sample * 10/07 ETT aspirate (+) MOLD + GNR ->(+) Cupriavidus pauculus, Previously known as Ralstonia paucula. * 10/08/16 CT CHEST: Multiple bilateral cavitary nodules...similar to the prior CT :DDx septic emboli, atypical (fungal, tuberculosis) infectious process, and possible neoplasm. * CT 09/30 THORA BODY FLUID CULTURE no growth * Fungal smears (-) to date * AFB SMEAR (-) x 3 Final ACID FAST BACILLI NONE SEEN 8. Pancytopenia - sepsis 9. Coagulopathy w/thrombocytopenia (-)MRSA Nares screen INVASIVES: PICC (09/25/16) , ETT, NGT, VPS, FC, CXT-Tube; PEG ABX ALLERGY: PCN CURRENT ABX => TYGACIL #12 + AMPHO B #5 TOTAL ABX DAY #30 s/p Cancidas #15 =>Cipro start 09/17 => VANCO IV + MERREM + FLAGYL #8-> DC'd 10/07 ID RECOMMENDATIONS 1. (+)Cryptococcal antigen serology >== Per Dr. Sevilla/Chantel possible inhaled [place] Droppings source * CSF fluid only 1 WBC = GLU 84 (near normal) Protein normal ? = CSF fluid not compelling --await cryptococcal ag & fungal Cx x * Pending Michaela Ink, Cryptococcal antigen, Lactate, IgG, IgS, IgM * AMPHO B IV started 2. Await micro ID of MOLD growing in respiratory culture x 2 3. Send cocci, aspergillosis, histoplasma serology * Not sure where to find scanned [facility] diagnostic reports -- There are scanned into online record somewhere? * Will have to report to ID colleagues to look up final results ? . . . . . Problems: Consultation Date/Type/Reason Admit Date/Time Sep 15, 2016 at 21:35 Initial Consult Date 09/21/16 Type of Consultation: ID Exam/Review of Systems Vital Signs Vitals Vital Signs Date Time Temp Pulse Resp B/P Pulse Ox O2 Delivery O2 Flow Rate FiO2 10/18/16 19:26 96 20 100 35 10/18/16 19:00 118/77 Mechanical Ventilator 10/18/16 16:00 98.0 Intake and Output 10/17/16 10/17/16 10/18/16 15:00 23:00 07:00 Intake Total 1915 ml 1415.0 ml 361 ml Output Total 1020 ml 970 ml 920 ml Balance 895 ml 445.0 ml -559 ml Results Result Diagram: 10/18/16 0436 10/18/16 0436 Results 24 hrs Laboratory Tests Test 10/18/16 04:36 10/18/16 05:17 White Blood Count 27.2 H Red Blood Count 2.71 L Hemoglobin 7.6 L Hematocrit 23.0 L Mean Corpuscular Volume 84.9 Mean Corpuscular Hemoglobin 28.0 L Mean Corpuscular Hemoglobin Concent 33.0 Red Cell Distribution Width 20.4 H Platelet Count 95 L Mean Platelet Volume Neutrophils % 90.3 H Lymphocytes % 2.8 L Monocytes % 5.0 Eosinophils % 0.0 Basophils % 0.2 Nucleated Red Blood Cells % 0.0 Neutrophils # 24.6 H Lymphocytes # 0.8 Monocytes # 1.4 H Eosinophils # 0.0 Basophils # 0.1 Nucleated Red Blood Cells # 0.0 Sodium Level 135 Potassium Level 3.7 Chloride Level 95 L Carbon Dioxide Level 31 Anion Gap 13 Blood Urea Nitrogen 41 H Creatinine 0.59 Glucose Level 174 Calcium Level 6.7 L Phosphorus Level 4.3 Magnesium Level 2.0 Lab Scanned Report BLOOD TRANSFUSION Medications Medications Current Medications Ondansetron HCl (Zofran Inj) 4 mg Q6H PRN IV NAUSEA AND/OR VOMITING Last administered on 09/26/16 09:23; Admin Dose 4 MG; Start 09/16/16 at 00:30 Acetaminophen (Tylenol Tab) 650 mg Q6H PRN PO PAIN LEVEL 1-3 OR FEVER Last administered on 10/08/16 12:47; Admin Dose 650 MG; Start 09/16/16 at 00:30 Polyethylene Glycol 17 gm 17 gm DAILY PO Last administered on 10/18/16 10:21; Admin Dose 17 GM; Start 09/20/16 at 11:00 Norepinephrine/ Dextrose (Levophed/D5W) 500 ml @ 1.87 mls/hr TITRATE IV Last administered on 10/14/16 06:28; Admin Dose 3.75 MLS/HR; Start 09/21/16 at 09:00 Acetaminophen/ Hydrocodone Bitart ([place] (5/325)) 1 tab Q4H PRN PO PAIN LEVEL 4 -7 Last administered on 09/28/16 21:20; Admin Dose 1 TAB; Start 09/21/16 at 15: 00 Acetaminophen/ Hydrocodone Bitart ([place] (5/325)) 2 tab Q4H PRN PO PAIN LEVEL 7 -10; Start 09/21/16 at 15:00 Hydromorphone HCl (Dilaudid) 0.5 mg Q2H PRN IV PAIN Last administered on 16:41; Admin Dose 0.5 MG; Start 09/21/16 at 15:00 Hydromorphone HCl (Dilaudid) 1 mg Q2H PRN IV PAIN Last administered on 23:57; Admin Dose 1 MG; Start 09/21/16 at 15:00 Docusate Sodium (Colace) 100 mg BID PRN PO CONSTIPATION; Start 09/21/16 at 15: 00 Docusate Sodium (Colace Liquid Cup) 100 mg BID NGT Last administered on 10:20; Admin Dose 100 MG; Start 09/22/16 at 21:00 IV Flush (NS 10 ml) 10 ml PRN PRN IV IV PROTOCOL; Start 09/25/16 at 12:00 Spironolactone 50 mg 50 mg DAILY NGT Last administered on 10/18/16 10:21; Admin Dose 50 MG; Start 09/28/16 at 09:00 Dopamine HCl/ Dextrose 250 ml @ 6.053 mls/ hr TITRATE IV Last administered on 09/30/16 04:46; Admin Dose 6.053 MLS/HR; Start 09/29/16 at 11:00 Phenylephrine HCl/ Dextrose ([place]-Syneph/D5W) 500 ml @ 75 mls/hr TITRATE IV ; Start 09/29/16 at 14:00 Furosemide (Lasix) 20 mg Q6 IV Last administered on 10/18/16 13:14; Admin Dose 20 MG; Start 10/05/16 at 13:00 Lorazepam 0.5 mg 0.5 mg Q6H PRN IV AGITATION/ANXIETY Last administered on 05:10; Admin Dose 0.5 MG; Start 10/05/16 at 23:00 Fentanyl 100 ml @ 2.5 mls/hr TITRATE IV Last administered on 10/18/16 18:18; Admin Dose 3 MLS/HR; Start 10/07/16 at 09:30 Tigecycline/ Sodium Chloride (Tygacil/NS) 100 ml @ 200 mls/hr Q12 IVPB Last administered on 10/18/16 10:20; Admin Dose 200 MLS/HR; Start 10/07/16 at 21:00 Pantoprazole 40 mg 40 mg BID@06,18 IV Last administered on 10/18/16 18:18; Admin Dose 40 MG; Start 10/09/16 at 18:00 Amphotericin B Liposome/Dextrose (Ambisome/D5W) 300 ml @ 150 mls/hr Q24H IVPB Last administered on 10/17/16 23:51; Admin Dose 150 MLS/HR; Start 10/14/16 at 23 :30 DONNA HERNANDEZ NP Oct 18, 2016 20:28
--- NOTE | 2016-10-18 22:18 | CONS ---
Date/Time of Note Date/Time of Note DATE: 10/18/16 TIME: 22:17 Assessment/Plan Assessment/Plan Chief Complaint/Hosp Course Acute respiratory failure: now status post tracheostomy Acute diastolic heart failure: Secondary to volume resuscitation in setting of low albumin and third spacing. Significant anasarca. Improved with diuresis. Paroxysmal afib: converted on amiodarone. Currently in sinus rhythm Septic shock: intraabdominal abscess, bilateral pneumonia. S/p sigmoid colectomy. Tension pneumothorax: due to thoracentesis. s/p chest tube 09/30 NSTEMI: Trop mildly elevated likely type II in the setting of septic shock. Echo from 09/18 showed normal EF and no significant valvular disease. Repeat trop normalized Diverticulitis complicated by abscess s/p sigmoid colectomy and now colostomy Coagulopathy: ?DIC. Resolved h/o ICH with [employer] shunt Anemia: status post pRBC transfusion -Monitor blood pressure off pressors -Ventilator management per pulmonology Problems: Consultation Date/Type/Reason Admit Date/Time Sep 15, 2016 at 21:35 Initial Consult Date 09/21/16 Type of Consultation: Cardiology 24 HR Interval Summary Free Text/Dictation No significant clinical changes. Remains off pressors. Detailed Summary Additional Comments Unable to obtain review of systems, patient is on ventilator. Exam/Review of Systems Vital Signs Vitals Vital Signs Date Time Temp Pulse Resp B/P Pulse Ox O2 Delivery O2 Flow Rate FiO2 10/18/16 21:52 105 19 98 35 10/18/16 19:00 118/77 Mechanical Ventilator 10/18/16 16:00 98.0 Intake and Output 10/17/16 10/17/16 10/18/16 15:00 23:00 07:00 Intake Total 1915 ml 1415.0 ml 361 ml Output Total 1020 ml 970 ml 920 ml Balance 895 ml 445.0 ml -559 ml Exam Constitutional: NAD HEENT: NCAT Neck: No obvious JVD, tracheostomy Respiratory: diminished breath sounds, scattered crackles, no wheezes; chest tube noted Cardiovascular: Tachycardic, regular, no m/r/g, 2+ pitting BLE edema Gastrointestinal: non-tender, soft, grimaces to palpation Extremities: warm, no cyanosis or clubbing, LE SCDs in place Results Result Diagram: 10/18/16 0436 10/18/16 0436 Results 24 hrs Laboratory Tests Test 10/18/16 04:36 10/18/16 05:17 White Blood Count 27.2 H Red Blood Count 2.71 L Hemoglobin 7.6 L Hematocrit 23.0 L Mean Corpuscular Volume 84.9 Mean Corpuscular Hemoglobin 28.0 L Mean Corpuscular Hemoglobin Concent 33.0 Red Cell Distribution Width 20.4 H Platelet Count 95 L Mean Platelet Volume Neutrophils % 90.3 H Lymphocytes % 2.8 L Monocytes % 5.0 Eosinophils % 0.0 Basophils % 0.2 Nucleated Red Blood Cells % 0.0 Neutrophils # 24.6 H Lymphocytes # 0.8 Monocytes # 1.4 H Eosinophils # 0.0 Basophils # 0.1 Nucleated Red Blood Cells # 0.0 Sodium Level 135 Potassium Level 3.7 Chloride Level 95 L Carbon Dioxide Level 31 Anion Gap 13 Blood Urea Nitrogen 41 H Creatinine 0.59 Glucose Level 174 Calcium Level 6.7 L Phosphorus Level 4.3 Magnesium Level 2.0 Lab Scanned Report BLOOD TRANSFUSION Medications Medications Current Medications Ondansetron HCl (Zofran Inj) 4 mg Q6H PRN IV NAUSEA AND/OR VOMITING Last administered on 09/26/16 09:23; Admin Dose 4 MG; Start 09/16/16 at 00:30 Acetaminophen (Tylenol Tab) 650 mg Q6H PRN PO PAIN LEVEL 1-3 OR FEVER Last administered on 10/08/16 12:47; Admin Dose 650 MG; Start 09/16/16 at 00:30 Polyethylene Glycol 17 gm 17 gm DAILY PO Last administered on 10/18/16 10:21; Admin Dose 17 GM; Start 09/20/16 at 11:00 Norepinephrine/ Dextrose (Levophed/D5W) 500 ml @ 1.87 mls/hr TITRATE IV Last administered on 10/14/16 06:28; Admin Dose 3.75 MLS/HR; Start 09/21/16 at 09:00 Acetaminophen/ Hydrocodone Bitart ([place] (5/325)) 1 tab Q4H PRN PO PAIN LEVEL 4 -7 Last administered on 09/28/16 21:20; Admin Dose 1 TAB; Start 09/21/16 at 15: 00 Acetaminophen/ Hydrocodone Bitart ([place] (5/325)) 2 tab Q4H PRN PO PAIN LEVEL 7 -10; Start 09/21/16 at 15:00 Hydromorphone HCl (Dilaudid) 0.5 mg Q2H PRN IV PAIN Last administered on 16:41; Admin Dose 0.5 MG; Start 09/21/16 at 15:00 Hydromorphone HCl (Dilaudid) 1 mg Q2H PRN IV PAIN Last administered on 23:57; Admin Dose 1 MG; Start 09/21/16 at 15:00 Docusate Sodium (Colace) 100 mg BID PRN PO CONSTIPATION; Start 09/21/16 at 15: 00 Docusate Sodium (Colace Liquid Cup) 100 mg BID NGT Last administered on 20:52; Admin Dose 100 MG; Start 09/22/16 at 21:00 IV Flush (NS 10 ml) 10 ml PRN PRN IV IV PROTOCOL; Start 09/25/16 at 12:00 Spironolactone 50 mg 50 mg DAILY NGT Last administered on 10/18/16 10:21; Admin Dose 50 MG; Start 09/28/16 at 09:00 Dopamine HCl/ Dextrose 250 ml @ 6.053 mls/ hr TITRATE IV Last administered on 09/30/16 04:46; Admin Dose 6.053 MLS/HR; Start 09/29/16 at 11:00 Phenylephrine HCl/ Dextrose (Marcell-Syneph/D5W) 500 ml @ 75 mls/hr TITRATE IV ; Start 09/29/16 at 14:00 Furosemide (Lasix) 20 mg Q6 IV Last administered on 10/18/16 13:14; Admin Dose 20 MG; Start 10/05/16 at 13:00 Lorazepam 0.5 mg 0.5 mg Q6H PRN IV AGITATION/ANXIETY Last administered on 05:10; Admin Dose 0.5 MG; Start 10/05/16 at 23:00 Fentanyl 100 ml @ 2.5 mls/hr TITRATE IV Last administered on 10/18/16 18:18; Admin Dose 3 MLS/HR; Start 10/07/16 at 09:30 Tigecycline/ Sodium Chloride (Tygacil/NS) 100 ml @ 200 mls/hr Q12 IVPB Last administered on 10/18/16 20:53; Admin Dose 200 MLS/HR; Start 10/07/16 at 21:00 Pantoprazole 40 mg 40 mg BID@06,18 IV Last administered on 10/18/16 18:18; Admin Dose 40 MG; Start 10/09/16 at 18:00 Amphotericin B Liposome/Dextrose (Ambisome/D5W) 300 ml @ 150 mls/hr Q24H IVPB Last administered on 10/17/16 23:51; Admin Dose 150 MLS/HR; Start 10/14/16 at 23 :30 AVINASH FERNANDEZ MD Oct 18, 2016 22:18
[2016-10-18] MEDS: AMPHOTERICIN B LIPOSOME 300 MG in DEXTROSE 5% 300 ML IVPB SCH (23:32)
[2016-10-19] VITALS (53 sets, daily range): BP systolic 75–131; BP diastolic 41–95; PULSE 79–116; RESP 12–28
[2016-10-19] MEDS: ALBUTEROL 18 GM INHALER INH SCH ×6 (00:17→21:08)
[2016-10-19] MEDS: IPRATROPIUM (HFA) 12.9 GM INHALER INH SCH ×6 (00:17→21:08)
[2016-10-19 04:52] LABS: ABNORMAL IP MESSAGE 1; BASOPHILS % 0.1 % (0.0-2.0); EOSINOPHILS % 0.1 % (0.0-7.0); HEMATOCRIT 23.9 % (37.0-47.0); HEMOGLOBIN 7.9 g/dl (12.0-16.0); LYMPHOCYTES # 0.8 10^3/ul (0.8-2.9); LYMPHOCYTES % 2.7 % (15.0-51.0); MEAN CORPUSCULAR HEMOGLOBIN 28.2 pg (29.0-33.0); MEAN CORPUSCULAR HGB CONC 33.1 g/dl (32.0-37.0); MEAN CORPUSCULAR VOLUME 85.4 fl (82.0-101.0); MONOCYTE # 1.4 10^3/ul (0.3-0.9); MONOCYTES % 4.7 % (0.0-11.0); NEUTROPHIL # 26.7 10^3/ul (1.6-7.5); PLATELET COUNT 108 10^3/UL (140-415); RED CELL DISTRIBUTION WIDTH 20.2 % (11.5-14.5); WHITE BLOOD COUNT 29.3 10^3/ul (4.8-10.8)
[2016-10-19 04:56] LABS: NEUTROPHILS % 90.9 % (39.0-77.0); POSITIVE DIFF @See below
[2016-10-19 05:04] LABS: CALCIUM 7.1 mg/dl (8.4-10.2); CREATININE 0.62 mg/dl (0.44-1.00); PHOSPHORUS 5.9 mg/dl (2.5-4.9); POTASSIUM 3.1 mmol/L (3.5-5.1)
[2016-10-19] MEDS: FUROSEMIDE 20 MG INJ IV SCH ×4 (05:36→23:40)
[2016-10-19] MEDS: PANTOPRAZOLE 40 MG INJ IV SCH ×2 (05:36→17:25)
[2016-10-19] MEDS: POTASSIUM CHLORIDE 50 ML IVPB PRN ×3 (05:38→08:20)
[2016-10-19] MEDS: FENTAnyl (DRIP) 1000 mcg/100mL 100 ML IV SCH (06:44)
--- NOTE | 2016-10-19 08:42 | PN ---
DATE: 10/19/2016 SUBJECTIVE DATA: The patient is critical, but stable. No other events noted. No hemoptysis, hematemesis, or hematochezia. OBJECTIVE DATA: VITAL SIGNS: Blood pressure is 88/54, respirations, pulse 86, temperature 98.2. Input and output - 800 in and 2.4 liters out. HEENT: Head is normocephalic. NECK: Supple. HEART: Regular rate. LUNGS: Diminished breath sounds at the base. ABDOMEN: Soft, nontender to palpation. No rebound or guarding. EXTREMITIES: Negative for clubbing, cyanosis. No edema. DERMATOLOGIC: No rashes. MUSCULOSKELETAL: No joint effusion. NEUROLOGIC: No change in exam. MEDICATIONS: Reviewed. LABORATORY AND DIAGNOSTIC DATA: Sodium 137, potassium 3.1, BUN 42, creatinine 0.6, phosphorus 5.9. White count 29.3, hemoglobin 7.9, hematocrit of 23.9, platelet count is 108,000. ASSESSMENT AND PLAN: 1. Nonoliguric acute kidney injury. Etiology secondary to acute tubular necrosis. Renal function appears to be stabilized at this point. Continue current treatment plan. Continue supportive care. Renally dose all meds. 2. Hyper hyponatremia, improved. 3. Hypokalemia. Continue to replete with potassium protocol. 4. Volume overload, diffuse anasarca. Continue diuretic regimen. 5. Sepsis status post-shock. Continue current antibiotic regimen. 6. Anemia. Monitor hemoglobin and hematocrit levels. 7. Mineral bone disorder. Monitor calcium and phosphorus levels. 8. Acute respiratory failure. The patient's ventilator settings and arterial blood gases have been reviewed. Continue to monitor. 9. Perforated viscus. Status post-colectomy with colostomy bag. 10. Abdominal abscess, status post-drain placement. 11. Dysphagia. Continue tube feeding. 12. Ventriculoperitoneal shunt placement. 13. Paroxysmal atrial fibrillation. Currently in sinus rhythm. 14. Right lower extremity deep vein thrombosis. The patient's Lovenox is currently on hold. 15. Left pleural effusion status post-thoracentesis. Complicated with pneumothorax. Placement chest tube, status post- removal. Dictated By: Agustin Sanchez DO /rhina/tegan /Document#: [id number]
[2016-10-19] MEDS: SPIRONOLACTONE 50 MG TAB NGT SCH (09:00)
[2016-10-19] MEDS: DOCUSATE SODIUM 10 MG/ML (10ML CUP) NGT SCH ×2 (09:47→20:32)
[2016-10-19] MEDS: TIGECYCLINE 50 MG in SOD CHLORIDE 0.9% 100 ML IVPB SCH ×2 (09:48→20:32)
[2016-10-19] MEDS: BALSAM PERU/CASTOR OIL 60 GM TUBE TOP SCH (09:49)
[2016-10-19] MEDS: POLYETHYLENE GLYCOL 17 GM PACKET PO SCH (09:49)
--- NOTE | 2016-10-19 10:20 | PN ---
Date/Time of Note Date/Time of Note DATE: 10/19/16 TIME: 10:16 Assessment/Plan Lines/Catheters IV Catheter Type (from Nrs): PICC Line Shore in Place (from Nrs): Yes Assessment/Plan Assessment/Plan [facility] Progress Note Date of Service: 10/19/2016 Place of service: [facility] ICU Today's Assessment & Plan: Overall has remained quasi stably critically ill. WBC up and down (elevated for the last 4 days). ? fungal infection/encephalopathy (w/u underway and on antifungals). Still has a chance to recover, but less as the number of days are passing without steady improvement. No indication for acute surgical intervention. Seems to be tolerating 60 mL/h of tube feeding. Neurologically appears improved and following simple commands. I spoke in person with and updated patient's ex- and answered numerous questions. Previous assessment that still applies today: Overall stable but with failure to thrive. Abdomen continues to remain benign. Trach and PEG being used. Drainage of perihepatic fluid collection ongoing. Of great importance is adequate nutrition and I recommended that we continue the feeds through the PEG with a goal of 60 cc/h with guidance from our dietitian colleagues. With above assessment, I recommended the following for today: 1. Continue aggressive medical management with intubation; CODE STATUS at this point is DO NOT RESUSCITATE but with intubation being okay and no chest compressions or electric shocks. Chemical code is okay. 2. Continue wound VAC; dressing change 3 times a week 3. Cont aggressive pulmonary toilet 4. Cont Lasix as allowed by her clinical condition 5. Labs in am 6. Please maintain multidisciplinary discussion regarding fluid intake, CODE STATUS, and other major medical decisions since this is a fragile surgical patient with recent sepsis and shock; I changed code status to full code, but without chest compression or electric shock 7. Targeted antimicrobial therapy to culture results 8. PT/OT when patient is able to 9. Management of IMPLEMENTATION ARCHITECT shunt per Dr. Miner (much appreciate the care) 10. Continue PEG gastric feeds with goal of 60 cc/h 11. Keep in the ICU (not ready for d/c from ICU or for long-term facility yet) 12. Social work and case management to please start working on disposition planning (rehab versus SNF) 13. Please note: Guille, who is the patient's decision maker currently, would like Mr. Yanez (patient's ex-) to still be involved in her care. He should still have full access to the hospital and patient according to Guille. 14. Tracheostomy management per Dr. Jones 15. Continue following GI recommendation for management of GI bleeding 16. Continue percutaneous drainage of perihepatic fluid collections and flushed drain. 17. Treat for oral thrush 18. CT chest/abd/pelvis with IV and oral contrast today for surveillance and clarification of rise in WBC 19. Attempt at start of weaning off the vent since more awake and alert Thank you again for your great care of this very pleasant patient and wonderful family. If there are any questions, please feel free to call me at [phone]. Nature of presenting problem: High severity Please note that, given the extensive number of diagnoses or management options , the extensive amount and/or complexity of data needed to be reviewed, and I risk of complications and/or morbidity or mortality, this qualifies as high complexity type of decision-making. Disclaimer: Inadvertent spelling and grammatical errors are likely due to EHR/ dictation software use and do not reflect on the quality of delivered patient care. Also, please note that the electronic time recorded on this node does not necessarily reflect the actual time of the visit. Updated Clinical Summary: A very pleasant 70-year-old lady without significant known past medical history other than a IMPLEMENTATION ARCHITECT shunt placement many years ago which she did not remember or report, presenting with what appears to be a sigmoid colon abscess or pericolonic abscess, which seemed to be a complication of diverticulitis. S/p IR drainage 09/09/16 with removal of 20 cc pus and placement of a 10 Fr. pigtail catheter at [facility]. D/c home 09/12/16. Re-presented to [place] ED 09/15/16 after being diverted from [facility] (due to internal disaster diversion) where CT was done showing adequate placement of the percutaneous drain near the sigmoid colon and decompressed sigmoid colon abscess, no obvious free air or significant spillage of stool in the abdominal cavity, and incidental finding of tail of the IMPLEMENTATION ARCHITECT shunt in the pelvis (new from right upper quadrant position of the same drain on the CT scan at [facility]). Transfer to [facility] 09/15/2016 for further cares. S/p upsizing of drain to 12 Fr pigtail on 09/17/16 (communication with colon demonstrated; no obvious free communication to rest of peritoneal space). Patient decompensated in the early hours of the morning on 09/21/2016 and had to be transferred to the intensive care unit with need for endotracheal tube intubation, central line placement, and resuscitation for treatment of shock with lactic acidosis and evidence of peritonitis and free air on the new chest, abdomen, and pelvis CT scan. S/p a rather challenging sigmoid colectomy with performance of end colostomy (Reid's procedure), takedown of splenic flexure of the colon, lysis of adhesions (60 minutes), and abdominal lavage at [facility] on 09/21/16; diagnosis of colon ischemia (distal transverse colon and descending colon) during reentry through recent laparotomy incision with exploration of abdominal cavity, takedown of colostomy, completion left hemicolectomy with resection of distal transverse colon, lysis of adhesions, abdominal lavage, performance of an end colostomy [facility] 09/24/16. Extubated post op evening of 09/25/16. Decompensation with intubation and restart of pressors . Right-sided pneumothorax after drainage of right pleural effusion requiring chest tube placement 09/30/2016. Extubated 10/03/2016. Decompensation with reintubation 10/06/16. Tracheostomy and PEG placed. Perihepatic fluid collections drained 10/13/2016. Cryptococcal antigen found in the urine 2016. Antifungal therapy started. Comorbidities: 1. Perforated sigmoid colon (see below) 2. Status post ventriculoperitoneal shunt placement. 3. Status post prior hysterectomy and bilateral salpingo-oophorectomy through Pfannenstiel incision 4. S/p IR drainage 09/09/16 with removal of 20 cc pus and placement of a 10 Fr. pigtail catheter at [facility]. 5. Readmission to [facility] 09/15/16 with upsizing of drain to 12 Fr pigtail on (communication with colon demonstrated; no obvious free communication to rest of peritoneal space). Septic shock with multiorgan failure 09/21/2016 requiring ICU admission with intubation and pressors. 6. S/p a rather challenging sigmoid colectomy with performance of end colostomy (Reid's procedure), takedown of splenic flexure of the colon, lysis of adhesions (60 minutes), and abdominal lavage at [facility] on 09/21/16 7. Colon ischemia (distal transverse colon and descending colon) 8. S/p reentry through recent laparotomy incision with exploration of abdominal cavity, takedown of colostomy, completion left hemicolectomy with resection of distal transverse colon, lysis of adhesions, abdominal lavage, performance of an end colostomy [facility] 09/24/16 9. Stage I/II decubitus pressure ulcers (10/11/2016 [facility] ICU) Subjective: Remain on a ventilator with tracheostomy without major events. Less lethargic and still not communicative, but slight smile on the face and follows simple commands. Seem to be listening a bit better today. Objective: Vitals: See below I's & O's: See below Exam: GENERAL: On exam, the patient was lying in bed and appeared to be breathing comfortably on the vent. No obvious acute distress. Appears emaciated. ABDOMEN: Soft, nontender and nondistended. Incision dressings are clean, dry and intact without any obvious evidence of underlying erythema, edema, discharge , or hernia. Surgical drain ss without any evidence of enteric contents. There are no peritoneal signs or guarding. Ostomy appears to be viable and productive with stool and air in the bag. Perihepatic drain showing pus. SKIN: Skin appears to be pink and feels warm to touch. NEUROLOGIC: Patient is more awake today and for the most part noncommunicative; minimally responds to and follows simple commands. Remains on the ventilator with tracheostomy tube and sedated. Labs: See below Exam/Review of Systems Vital Signs Vitals Vital Signs Date Time Temp Pulse Resp B/P Pulse Ox O2 Delivery O2 Flow Rate FiO2 10/19/16 09:18 106 23 100 35 10/19/16 08:00 98.4 121/63 Mechanical Ventilator Intake and Output 10/18/16 10/18/16 10/19/16 15:00 23:00 07:00 Intake Total 300 ml 189 ml 321 ml Output Total 1025 ml 670 ml 775 ml Balance -725 ml -481 ml -454 ml Results Result Diagram: 10/19/16 0400 10/19/16 0400 ALEXSANDER DUARTE M.D. Oct 19, 2016 10:19
--- NOTE | 2016-10-19 10:25 | PN ---
Date/Time of Note Date/Time of Note DATE: 10/19/16 TIME: 10:24 Assessment/Plan Lines/Catheters IV Catheter Type (from Nrsg): PICC Line Shore in Place (from Nrsg): Yes Assessment/Plan Chief Complaint/Hosp Course This is a 70-year-old female admitted with a perforated colon and contained abscess underwent a drainage procedure on further colonic procedures patient is currently in the intensive care unit unable to come off the ventilator secondary to multiple medical problems Patient was extubated and had to be input intubated again has been treated for septic shock lactic acidosis peritonitis currently has an end colostomy Helio pouch and has undergone colon resection patient also has a right-sided chest tube for a pneumothorax She was reintubated again Status post tracheostomy Tracheal site clean We will continue pulmonary toilet Trach care CT removed Vent support Problems: Subjective 24 Hr Interval Summary Constitutional: improved Pain Control: mild Exam/Review of Systems Vital Signs Vitals Vital Signs Date Time Temp Pulse Resp B/P Pulse Ox O2 Delivery O2 Flow Rate FiO2 10/19/16 09:18 106 23 100 35 10/19/16 08:00 98.4 121/63 Mechanical Ventilator Intake and Output 10/18/16 10/18/16 10/19/16 15:00 23:00 07:00 Intake Total 300 ml 189 ml 321 ml Output Total 1025 ml 670 ml 775 ml Balance -725 ml -481 ml -454 ml Exam ENMT: mucosa pink and moist, nl external ears & nose, nl lips & teeth, nl nasal mucosa & septum Neck: non-tender, supple Respiratory: clear to auscultation, normal air movement Cardiovascular: nl pulses, regular rate and rhythm Gastrointestinal: nl liver, spleen, non-tender, soft Results Result Diagram: 10/19/1639910/19/16399 GIL PINEDA MD Oct 19, 2016 10:25
[2016-10-19] MEDS ORDERED: IOHEXOL 300MG/ML 30 ML BTL ONE (10:58)
[2016-10-19] MEDS: NYSTATIN SUSP 5 ML CUP PO SCH ×3 (12:10→20:32)
--- NOTE | 2016-10-19 12:48 | CONS ---
Date/Time of Note Date/Time of Note DATE: 10/19/16 TIME: 12:44 Consult Date/Type/Reason Admit Date/Time Sep 15, 2016 at 21:35 Initial Consult Date 09/21/16 Type of Consultation: Pulmonary Subjective Patient comfortable this morning continues fentanyl but no acute distress. No vasopressors. Objective Vital Signs Date Time Temp Pulse Resp B/P Pulse Ox O2 Delivery O2 Flow Rate FiO2 10/19/16 09:18 106 23 100 35 10/19/16 08:00 98.4 121/63 Mechanical Ventilator Intake and Output 10/18/16 10/18/16 10/19/16 15:00 23:00 07:00 Intake Total 300 ml 189 ml 321 ml Output Total 1025 ml 670 ml 775 ml Balance -725 ml -481 ml -454 ml Exam PHYSICAL EXAMINATION GENERAL: Elderly lady on mechanical ventilation via tracheostomy VITAL SIGNS: see below. HEENT: Pupils equal, round, and reactive to light. Tracheostomy site clean and intact. CARDIAC: S1, S2, 1/6 systolic ejection murmur CHEST: Diminished air entry bilaterally. ABDOMEN: Mildly distended. Bowel sounds present no guarding or rebound EXTREMITIES: No cyanosis, clubbing edema +1 NEUROLOGIC: Generalized weakness Results/Medications Result Diagram: 10/19/16 0400 10/19/16 0400 Results 24 hrs Laboratory Tests Test 10/19/16 04:00 White Blood Count 29.3 H Red Blood Count 2.80 L Hemoglobin 7.9 L Hematocrit 23.9 L Mean Corpuscular Volume 85.4 Mean Corpuscular Hemoglobin 28.2 L Mean Corpuscular Hemoglobin Concent 33.1 Red Cell Distribution Width 20.2 H Platelet Count 108 L Mean Platelet Volume Neutrophils % 90.9 H Lymphocytes % 2.7 L Monocytes % 4.7 Eosinophils % 0.1 Basophils % 0.1 Nucleated Red Blood Cells % 0.0 Neutrophils # 26.7 H Lymphocytes # 0.8 Monocytes # 1.4 H Eosinophils # 0.0 Basophils # 0.0 Nucleated Red Blood Cells # 0.0 Sodium Level 137 Potassium Level 3.1 L Chloride Level 99 Carbon Dioxide Level 31 Anion Gap 10 Blood Urea Nitrogen 42 H Creatinine 0.62 Glucose Level 81 # Calcium Level 7.1 L Phosphorus Level 5.9 H Magnesium Level 2.0 Medications Current Medications Ondansetron HCl (Zofran Inj) 4 mg Q6H PRN IV NAUSEA AND/OR VOMITING Last administered on 09/26/16 09:23; Admin Dose 4 MG; Start 09/16/16 at 00:30 Acetaminophen (Tylenol Tab) 650 mg Q6H PRN PO PAIN LEVEL 1-3 OR FEVER Last administered on 10/08/16 12:47; Admin Dose 650 MG; Start 09/16/16 at 00:30 Polyethylene Glycol 17 gm 17 gm DAILY PO Last administered on 10/19/16 09:49; Admin Dose 17 GM; Start 09/20/16 at 11:00 Norepinephrine/ Dextrose (Levophed/D5W) 500 ml @ 1.87 mls/hr TITRATE IV Last administered on 10/14/16 06:28; Admin Dose 3.75 MLS/HR; Start 09/21/16 at 09:00 Acetaminophen/ Hydrocodone Bitart ([place] (5/325)) 1 tab Q4H PRN PO PAIN LEVEL 4 -7 Last administered on 09/28/16 21:20; Admin Dose 1 TAB; Start 09/21/16 at 15: 00 Acetaminophen/ Hydrocodone Bitart ([place] (5/325)) 2 tab Q4H PRN PO PAIN LEVEL 7 -10; Start 09/21/16 at 15:00 Hydromorphone HCl (Dilaudid) 0.5 mg Q2H PRN IV PAIN Last administered on 16:41; Admin Dose 0.5 MG; Start 09/21/16 at 15:00 Hydromorphone HCl (Dilaudid) 1 mg Q2H PRN IV PAIN Last administered on 23:57; Admin Dose 1 MG; Start 09/21/16 at 15:00 Docusate Sodium (Colace) 100 mg BID PRN PO CONSTIPATION; Start 09/21/16 at 15: 00 Docusate Sodium (Colace Liquid Cup) 100 mg BID NGT Last administered on 09:47; Admin Dose 100 MG; Start 09/22/16 at 21:00 IV Flush (NS 10 ml) 10 ml PRN PRN IV IV PROTOCOL; Start 09/25/16 at 12:00 Spironolactone 50 mg 50 mg DAILY NGT Last administered on 10/18/16 10:21; Admin Dose 50 MG; Start 09/28/16 at 09:00 Dopamine HCl/ Dextrose 250 ml @ 6.053 mls/ hr TITRATE IV Last administered on 09/30/16 04:46; Admin Dose 6.053 MLS/HR; Start 09/29/16 at 11:00 Phenylephrine HCl/ Dextrose (Marcell-Syneph/D5W) 500 ml @ 75 mls/hr TITRATE IV ; Start 09/29/16 at 14:00 Furosemide (Lasix) 20 mg Q6 IV Last administered on 10/19/16 12:10; Admin Dose 20 MG; Start 10/05/16 at 13:00 Lorazepam 0.5 mg 0.5 mg Q6H PRN IV AGITATION/ANXIETY Last administered on 05:10; Admin Dose 0.5 MG; Start 10/05/16 at 23:00 Fentanyl 100 ml @ 2.5 mls/hr TITRATE IV Last administered on 10/19/16 06:44; Admin Dose 3 MLS/HR; Start 10/07/16 at 09:30 Tigecycline/ Sodium Chloride (Tygacil/NS) 100 ml @ 200 mls/hr Q12 IVPB Last administered on 10/19/16 09:48; Admin Dose 200 MLS/HR; Start 10/07/16 at 21:00 Pantoprazole 40 mg 40 mg BID@06,18 IV Last administered on 10/19/16 05:36; Admin Dose 40 MG; Start 10/09/16 at 18:00 Amphotericin B Liposome/Dextrose (Ambisome/D5W) 300 ml @ 150 mls/hr Q24H IVPB Last administered on 10/18/16 23:32; Admin Dose 150 MLS/HR; Start 10/14/16 at 23 :30 Nystatin (Nystatin Susp) 5 ml QID PO Last administered on 10/19/16 12:10; Admin Dose 5 ML; Start 10/19/16 at 13:00 Assessment/Plan Chief Complaint/Hosp Course IMP: 1. Status post septic shock worsening leukocytosis 2. Anemia multifactorial 3. Encephalopathy toxic metabolic, resolving 4. VDRF status post tracheostomy 5. Hypernatremia 6. Hypokalemia 7. bilateral infiltrates, small effusions. 8. Deep vein thrombosis right upper extremity anticoagulation held secondary to drop in hemoglobin 9. History of TERRAPIN FISHER shunt status post surgical intervention. Now with shunt ligation. 10. Status post right-sided pneumothorax following thoracentesis. Chest tube removed . RECS: 1. Continue surgery recommendations 2. Continue antibiotics per infectious diseases 3. Vent support 4. Replete K+ and Mg 5. Monitor H&H 6. Continue feeding as tolerated Discussed with surgery. 35 min cc time Problems: DAMIEN GUADARRAMA MD, [facility] Oct 19, 2016 12:48
[2016-10-19] MEDS ORDERED: IOHEXOL 300MG/ML 150 ML BTL ONE (13:33)
[2016-10-19] MEDS ORDERED: SOD CHLORIDE 0.9% 100 ML ONE (13:33)
--- NOTE | 2016-10-19 14:30 | RADRPT ---
PROCEDURE: XR Chest. CLINICAL INDICATION: Shortness of breath. Rule out pneumothorax. TECHNIQUE: Single frontal chest x-ray. COMPARISON: 10/17/2016 FINDINGS: Tracheostomy tube, right arm PICC line in place unchanged. There is 1 right-sided pleural drainage c atheters in place unchanged. The second pleural drainage catheter has been intervally removed. Bila teral perihilar and basilar infiltrates are stable. Small bilateral pleural effusions are unchanged. There is no evidence of pneumothorax. . Calcific atherosclerosis of the aorta is present.. The card iomediastinal silhouette is unremarkable. The osseous structures are intact. IMPRESSION: Interval removal 1 of the right-sided pleural drainage catheters. Otherwise support tubes and lines have remained unchanged. Bilateral perihilar and basilar infiltrates with small bilateral pleural effusions is stable.. RPTAT: GG .Britton Kendrick MD, Date Time Electronically viewed and signed by .Britton Kendrick MD, on 10/19/2016 14:30 .M/
--- NOTE | 2016-10-19 14:47 | PN ---
DATE: 10/19/2016 SUBJECTIVE DATA: No acute changes per report. OBJECTIVE DATA: The patient is awake, looks comfortable and follows commands. Temperature 98.4, pulse 93, respirations 16, blood pressure 121/63. Saturation 95 on 35 fiO2. Trach. PEG. BILLBOARD ERECTOR shunt. Right abdominal pigtail. Right upper extremity PICC line. Physical examination: The patient is a well-developed, ill- appearing, cachectic elderly woman who is awake in no distress. Head: Atraumatic, normocephalic.. Sclerae anicteric. Buccal mucosa dry. Neck is supple. The chest rise is symmetrical. Breath sounds diminished at the bases. Heart: S1, S2. Abdomen soft. Bowel sounds present. Extremities: Without cyanosis. LABORATORY AND DIAGNOSTIC DATA: WBC 29.3, hemoglobin and hematocrit 7.9 and 23.9. Platelet count 108. Neutrophils 90.9. Sodium 137, BUN 42, creatinine 0.62. ANTIBIOTICS: Amphotericin B, Tygacil. MICROBIOLOGY: Endotracheal aspirate on 10/07/2016 grew mold. Urine culture and blood culture have been negative. Stool for C. difficile came back negative. Intraabdominal fluids came back negative. CSF fluid culture on 10/15/2016 also negative. Serology + Cryptococcal Ag ASSESSMENT: 1. Persistent leukocytosis. Status post septic shock. 2. Status post perforated sigmoid colon repair with end colostomy and lysis of adhesions on 09/21/2016. 3. Status post abdominal lavage and lysis of adhesions with resection of distal transverse colon on 09/24/2016. 4. Status post externalization of BILLBOARD ERECTOR shunt on 09/21/2016. 5. Healthcare-associated pneumonia. 6. Respiratory failure, status post tracheostomy. 7. Status post pneumothorax. Chest tube was removed. 8. + Cryptococcus AG serology source PLAN: The patient is hemodynamically stable. She is being seen by multiple consultants. Her white blood cell count is tracing up. CT of abdomen and pelvis was ordered. Will await the final results. Change Ampho B to high dose Fluconazole, await for CSF fluid Michaela Ink and cryptococcus DW dr Sevilla Dictated By: Susy Lopez NP /rhina/precious /Document#: [id number] MTDD
--- NOTE | 2016-10-19 19:06 | PN ---
Date/Time of Note Date/Time of Note DATE: 10/19/16 TIME: 19:05 Assessment/Plan VTE Prophylaxis VTE Prophylaxis Intervention: SCD's Lines/Catheters IV Catheter Type (from Nrs): PICC Line Central line still needed: Yes Urinary Cath still in place: Yes Reason Cath still needed: other (indicate) Assessment/Plan Assessment/Plan 70 yo F with h/o hydrocephalus with previous VPS admitted for sigmoid abscess. hospital stay cb sepsis, colon perforation with multiple abd fluid collections , also recurrent respiratory failure warranting trach, pleural effusion with thora c/b by PTX. 1. Sigmoid colon abscess,2/2 diverticulitis - s/p sigmoid colectomy with end colostomy (Reid's procedure) and adhesiolysis on 09/21/16 - cont abx and gen surg care 2. Ventilator dependent respiratory failure: sp trach 3 Left pleural effusion: Status post thoracentesis, complicated with pneumothorax status post placement of a chest tube, removal of chest tube per pulmonology CHEST TUBE PULLED 8.11 4. History of ICH, s/p VPS placement, with subsequent externalization of drain : Neurosurg on board -ID following closely. 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 ID narrowed antifungal to diflucan VPS ligated 8.11 BY NS 5. Paroxysmal A. fib: Now in sinus rhythm status post amiodarone. Cardiology on board 6. Acute renal insufficiency: Resolved. 7. s/p NSTEMI: Likely secondary to septic shock. 8. Volume overload state: HOLD DIERESIS GIVEN LOW BPS 9. Anemia: unclear etio of acute on chronic. Does not appear to be any blood in drains 10. Dysphagia Status post PEG tube placement 11. RUE DVT: hold lovenox given anemia Prophylaxis: SCDs CC time 30 minutes transfer to [facility] in AM if BPs remain stable? Subjective 24 Hr Interval Summary Free Text/Dictation BPs a little better Exam/Review of Systems Vital Signs Vitals Vital Signs Date Time Temp Pulse Resp B/P Pulse Ox O2 Delivery O2 Flow Rate FiO2 10/19/16 18:30 94 21 92/41 Mechanical Ventilator 10/19/16 18:00 95 10/19/16 17:13 35 10/19/16 16:00 97.9 Intake and Output 10/18/16 10/18/16 10/19/16 15:00 23:00 07:00 Intake Total 300 ml 189 ml 324 ml Output Total 1025 ml 670 ml 775 ml Balance -725 ml -481 ml -451 ml Exam nad trach site c/d/i lungs clear abd drains, ostomy, wound vac, PEG noted no rashes Results Result Diagram: 10/19/1639910/19/16 0400 Results 24 hrs Laboratory Tests Test 10/19/16 04:00 White Blood Count 29.3 H Red Blood Count 2.80 L Hemoglobin 7.9 L Hematocrit 23.9 L Mean Corpuscular Volume 85.4 Mean Corpuscular Hemoglobin 28.2 L Mean Corpuscular Hemoglobin Concent 33.1 Red Cell Distribution Width 20.2 H Platelet Count 108 L Mean Platelet Volume Neutrophils % 90.9 H Lymphocytes % 2.7 L Monocytes % 4.7 Eosinophils % 0.1 Basophils % 0.1 Nucleated Red Blood Cells % 0.0 Neutrophils # 26.7 H Lymphocytes # 0.8 Monocytes # 1.4 H Eosinophils # 0.0 Basophils # 0.0 Nucleated Red Blood Cells # 0.0 Sodium Level 137 Potassium Level 3.1 L Chloride Level 99 Carbon Dioxide Level 31 Anion Gap 10 Blood Urea Nitrogen 42 H Creatinine 0.62 Glucose Level 81 # Calcium Level 7.1 L Phosphorus Level 5.9 H Magnesium Level 2.0 Medications Medications Current Medications Ondansetron HCl (Zofran Inj) 4 mg Q6H PRN IV NAUSEA AND/OR VOMITING Last administered on 09/26/16 09:23; Admin Dose 4 MG; Start 09/16/16 at 00:30 Acetaminophen (Tylenol Tab) 650 mg Q6H PRN PO PAIN LEVEL 1-3 OR FEVER Last administered on 10/08/16 12:47; Admin Dose 650 MG; Start 09/16/16 at 00:30 Polyethylene Glycol 17 gm 17 gm DAILY PO Last administered on 10/19/16 09:49; Admin Dose 17 GM; Start 09/20/16 at 11:00 Norepinephrine/ Dextrose (Levophed/D5W) 500 ml @ 1.87 mls/hr TITRATE IV Last administered on 10/14/16 06:28; Admin Dose 3.75 MLS/HR; Start 09/21/16 at 09:00 Acetaminophen/ Hydrocodone Bitart ([place] (5/325)) 1 tab Q4H PRN PO PAIN LEVEL 4 -7 Last administered on 09/28/16 21:20; Admin Dose 1 TAB; Start 09/21/16 at 15: 00 Acetaminophen/ Hydrocodone Bitart ([place] (5/325)) 2 tab Q4H PRN PO PAIN LEVEL 7 -10; Start 09/21/16 at 15:00 Hydromorphone HCl (Dilaudid) 0.5 mg Q2H PRN IV PAIN Last administered on 16:41; Admin Dose 0.5 MG; Start 09/21/16 at 15:00 Hydromorphone HCl (Dilaudid) 1 mg Q2H PRN IV PAIN Last administered on 23:57; Admin Dose 1 MG; Start 09/21/16 at 15:00 Docusate Sodium (Colace) 100 mg BID PRN PO CONSTIPATION; Start 09/21/16 at 15: 00 Docusate Sodium (Colace Liquid Cup) 100 mg BID NGT Last administered on 09:47; Admin Dose 100 MG; Start 09/22/16 at 21:00 IV Flush (NS 10 ml) 10 ml PRN PRN IV IV PROTOCOL; Start 09/25/16 at 12:00 Spironolactone 50 mg 50 mg DAILY NGT Last administered on 10/18/16 10:21; Admin Dose 50 MG; Start 09/28/16 at 09:00 Dopamine HCl/ Dextrose 250 ml @ 6.053 mls/ hr TITRATE IV Last administered on 09/30/16 04:46; Admin Dose 6.053 MLS/HR; Start 09/29/16 at 11:00 Phenylephrine HCl/ Dextrose (Marcell-Syneph/D5W) 500 ml @ 75 mls/hr TITRATE IV ; Start 09/29/16 at 14:00 Furosemide (Lasix) 20 mg Q6 IV Last administered on 10/19/16 17:27; Admin Dose 20 MG; Start 10/05/16 at 13:00 Lorazepam 0.5 mg 0.5 mg Q6H PRN IV AGITATION/ANXIETY Last administered on 05:10; Admin Dose 0.5 MG; Start 10/05/16 at 23:00 Fentanyl 100 ml @ 2.5 mls/hr TITRATE IV Last administered on 10/19/16 06:44; Admin Dose 3 MLS/HR; Start 10/07/16 at 09:30 Tigecycline/ Sodium Chloride (Tygacil/NS) 100 ml @ 200 mls/hr Q12 IVPB Last administered on 10/19/16 09:48; Admin Dose 200 MLS/HR; Start 10/07/16 at 21:00 Pantoprazole (Protonix Iv) 40 mg BID@06,18 IV Last administered on 10/19/16 17 :25; Admin Dose 40 MG; Start 10/09/16 at 18:00 Nystatin 5 ml 5 ml QID PO Last administered on 10/19/16 17:25; Admin Dose 5 ML ; Start 10/19/16 at 13:00 Fluconazole (Diflucan 400 Mg/ NS (Pmx)) 200 ml @ 100 mls/hr Q12 IVPB ; Start at 21:00 ALEKS RAINEY MD Oct 19, 2016 19:06
[2016-10-19] MEDS: FLUCONAZOLE 400 MG/NS (PMX) 200 ML IVPB SCH (20:32)
[2016-10-20] VITALS (41 sets, daily range): BP systolic 81–134; BP diastolic 45–109; PULSE 75–113; RESP 13–26
[2016-10-20] MEDS: IPRATROPIUM (HFA) 12.9 GM INHALER INH SCH ×6 (01:09→20:41)
[2016-10-20] MEDS: ALBUTEROL 18 GM INHALER INH SCH ×6 (01:09→20:42)
[2016-10-20 05:09] LABS: ABNORMAL IP MESSAGE 1; BASOPHILS % 0.1 % (0.0-2.0); HEMATOCRIT 21.2 % (37.0-47.0); HEMOGLOBIN 7.2 g/dl (12.0-16.0); LYMPHOCYTES # 1.2 10^3/ul (0.8-2.9); LYMPHOCYTES % 3.9 % (15.0-51.0); MEAN CORPUSCULAR HEMOGLOBIN 28.2 pg (29.0-33.0); MEAN CORPUSCULAR VOLUME 83.1 fl (82.0-101.0); MONOCYTE # 1.5 10^3/ul (0.3-0.9); MONOCYTES % 4.9 % (0.0-11.0); NEUTROPHILS % 89.8 % (39.0-77.0); PLATELET COUNT 128 10^3/UL (140-415); RED BLOOD COUNT 2.55 10^6/ul (4.20-5.40); RED CELL DISTRIBUTION WIDTH 19.8 % (11.5-14.5); WHITE BLOOD COUNT 30.1 10^3/ul (4.8-10.8)
[2016-10-20 05:16] LABS: CALCIUM 6.8 mg/dl (8.4-10.2); CREATININE 0.74 mg/dl (0.44-1.00); MAGNESIUM 1.9 mg/dl (1.7-2.5); PHOSPHORUS 6.2 mg/dl (2.5-4.9); POTASSIUM 3.2 mmol/L (3.5-5.1)
[2016-10-20 05:18] LABS: POSITIVE DIFF @See below
[2016-10-20] MEDS: PANTOPRAZOLE 40 MG INJ IV SCH ×2 (05:22→17:29)
[2016-10-20] MEDS: FUROSEMIDE 20 MG INJ IV SCH ×4 (05:22→23:38)
[2016-10-20] MEDS: POTASSIUM CHLORIDE 50 ML IVPB PRN ×3 (06:05→08:20)
[2016-10-20] MEDS: SPIRONOLACTONE 50 MG TAB NGT SCH (09:08)
[2016-10-20] MEDS: NYSTATIN SUSP 5 ML CUP PO SCH ×4 (09:08→21:10)
[2016-10-20] MEDS: DOCUSATE SODIUM 10 MG/ML (10ML CUP) NGT SCH ×2 (09:08→21:10)
[2016-10-20] MEDS: BALSAM PERU/CASTOR OIL 60 GM TUBE TOP SCH (09:08)
[2016-10-20] MEDS: POLYETHYLENE GLYCOL 17 GM PACKET PO SCH (09:08)
--- NOTE | 2016-10-20 09:27 | RADRPT ---
PROCEDURE: CT of the chest, abdomen, and pelvis with contrast CLINICAL INDICATION: Pneumonia. Abdominal pain and elevated white blood cell count. TECHNIQUE: Spiral CT images through the chest, abdomen and pelvis after administration of enteric contrast and during administration of 90 cc of Omnipaque-300 intravenous contrast material. Multipl андрей reconstructions. The total exam CTDI equals 12.5 mGy and the total exam DLP equals 896.73 mGy- cm. One or more of the following dose reduction techniques were used: automated exposure control, a djustment of the mA and/or kV according to patient size, or use of iterative reconstruction techniqu e. COMPARISON: 10/08/2016 FINDINGS: CT chest: Tracheostomy tube is in place. Again seen is prominent peribronchial thickening with some bronchiectasis and patchy alveolar opacities throughout both lung arizmendi. Multiple cavitary lesions are again seen but these do appear decreased in size compared with prior. Cavitary lesion in the i nferior right upper lobe which previously measured 2.3 cm in diameter now measures 1.8 cm in diamete r. Less air is present in the cavitary lesion the prior study. Right pleural effusion is increased compared with prior. Small left pleural effusion is similar to prior. The more dense consolidatio n of the lower lobes, left greater than right, may be slightly improved. Right PICC line remains in place. Slightly enlarged mediastinal nodes are again seen. These are decreased in size compared w ith prior. Aortic and coronary artery calcification again seen. Small pericardial effusion is seen , slightly increased. CT abdomen and pelvis: A pigtail catheter is now seen within the subcapsular fluid collection of the liver. The collection is slightly decreased in size, measuring 2.8 x 7.9 cm and previously measuring 4.6 x 9.4 cm. The p igtail catheter previously seen in the right pleural space is no longer seen. The subcapsular colle ction inferior to the liver is similar to prior. Gallbladder distension is again seen. Small peris plenic fluid collection is seen, perhaps slightly decreased. Slight heterogeneous enhancement kidne ys is unchanged. Small left renal cyst. Percutaneous gastrostomy tube is now seen. Nasogastric tu be is no longer present. Small hepatic cyst. Unremarkable right adrenal. Hypertrophic left adrena l again seen. Cystic lesion in the adjacent to the pancreatic tail measuring 2.8 cm is again seen. Diffuse anasarca. Atherosclerotic change of the abdominal aorta. Left anterior abdominal wall col ostomy and changes from prior left hemicolectomy again seen. Ascites is decreased. Small septated fluid collection adjacent to small bowel loops anterior to the left kidney is slightly decreased, 2. 4 cm. Again seen is a wall thickening of multiple pelvic and abdominal small bowel loops without de finite transition point. Helio's pouch is seen. There is mild wall thickening of the colon as w ell. Slight prominence of the distal gastric wall is again seen. Midline abdominal incision. Prob able uterine fibroids. Unremarkable adnexa. Air and a Shore catheter are seen in the urinary bladd er. Presacral stranding. The appendix is not definitely seen and may be surgically absent. Small rim-enhancing fluid collection in the right paracolic gutter is slightly decreased, 1.7 cm. Minimal pelvic free fluid. No definite free air. Degenerative change of the spine is seen. No adenopathy of the abdomen or pelvis. Serpiginous sclerosis of the femoral heads consistent with avascular nec rosis is again seen. Partial fusion of the sacroiliac joints. Small right perirectal collection is stable or decreased in size. IMPRESSION: Overall improvement since the prior study. Lung infiltrates and cavitary lesions are decreased. Ri ght pleural effusion has increased following removal of right pleural catheter. Slight decrease in subcapsular fluid collection of the lateral liver. Multiple other stable or slightly decreased flui d collections throughout the abdomen and pelvis. Extensive postoperative changes. Stable anasarca and mild ascites. Wall thickening of colonic and small bowel loops appears similar to prior. No de finite bowel obstruction or free air. Removal of nasogastric tube with new gastrostomy tube seen. P ossible cystic lesion of the pancreas versus peripancreatic fluid collection. Avascular necrosis of the femoral heads. RPTAT: HLBE Physician Lamberto Date Time Electronically viewed and signed by Physician Lamberto on 10/20/2016 09:27 LE/
--- NOTE | 2016-10-20 10:07 | RADRPT ---
PROCEDURE: XR Chest 1 View. CLINICAL INDICATION: Shortness of breath. TECHNIQUE: AP view of the chest was obtained. COMPARISON: October 19, [address] October 19, 2016 FINDINGS: The cardiomediastinal silhouette is within normal limits. Tracheostomy tube is stable and appears in grossly appropriate location. Right-sided PICC line is unchanged. The lungs are hyperexpanded. I nterstitial prominence in both lungs is unchanged. Superimposed patchy alveolar infiltrates in both lungs and small pleural effusions are stable. Right upper quadrant multipurpose drain is stable. O sseous structures are intact. IMPRESSION: Hyperexpanded lungs. Stable interstitial prominence in both lungs. Stable patchy alveolar infiltrates in both lungs and small pleural effusions. RPTAT: AA .Gaurav Garcia MD, Date Time Electronically viewed and signed by .Gaurav Garcia MD, on 10/20/2016 10:06 .P/
--- NOTE | 2016-10-20 10:23 | PN ---
DATE: 10/20/2016 SUBJECTIVE DATA: The patient remains critically ill. No acute events overnight. No hemoptysis, hematemesis, hematochezia. OBJECTIVE DATA: VITAL SIGNS: Blood pressure is 120/63, respirations 18, pulse 107, temperature 98.4. I's and O's reviewed; patient had 3 L in, 1.9 L out. HEENT: Head is normocephalic. NECK: Supple. HEART: Regular rate. LUNGS: Diminished breath sounds at the base. ABDOMEN: Soft, nontender to palpation. No rebound or guarding. EXTREMITIES: Negative for clubbing, cyanosis. Positive edema. DERMATOLOGIC: Clean. No rashes. MUSCULOSKELETAL: No joint effusion. NEUROLOGIC: Unchanged exam. MEDICATIONS: Reviewed. LABORATORY AND DIAGNOSTIC DATA: Sodium 134, potassium 3.2, chloride 98, BUN 31, creatinine 0.14. White count 30.1, hemoglobin 7.2, hematocrit 21.2, platelet count is 128,000. Chest x-ray was reviewed. ASSESSMENT AND PLAN: 1. Nonoliguric acute kidney injury. Etiology secondary to acute tubular necrosis. The patient's renal function stabilized. At this point, continue current treatment. Supportive care. Renally dose all meds. 2. Hyponatremia. Etiology is likely from increase free water flushes. We will decrease rate to 200 mL every 6 hours. Monitor closely. 3. Hypokalemia. Continue potassium protocol. 4. Volume overload with diffuse anasarca. Continue current diuretic regimen. 5. Sepsis status post shock. Continue current antibiotic regimen. 6. Anemia. Monitor hemoglobin and hematocrit levels. 7. Mineral bone disorder. Continue to monitor calcium and phosphorus levels. 8. Ventilatory-dependent respiratory failure. The patient ABGs reviewed. Continue to monitor. 9. 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. 10. Abdominal abscess. The patient is status post drain placement. 11. Dysphagia. Continue tube feeding. 12. Ventriculoperitoneal shunt status post ligation. 13. Paroxysmal atrial fibrillation. Currently sinus rhythm. 14. Right lower extremity deep vein thrombosis. Continue to monitor. Lovenox is on hold. 15. Left pleural effusion status post thoracentesis complicated with pneumothorax. Patient's chest tube was removed. Dictated By: Agustin Sanchez DO /rhina/cheikh /Document#: [id number]
[2016-10-20] MEDS: FLUCONAZOLE 400 MG/NS (PMX) 200 ML IVPB SCH ×2 (10:34→21:10)
--- NOTE | 2016-10-20 10:50 | PN ---
Date/Time of Note Date/Time of Note DATE: 10/20/16 TIME: 10:44 Assessment/Plan Lines/Catheters IV Catheter Type (from Nrs): PICC Line Shore in Place (from Nrs): Yes Assessment/Plan Assessment/Plan [facility] Progress Note Date of Service: 10/20/2016 Place of service: [facility] ICU Today's Assessment & Plan: Overall still improving, all be it slowly. CT showed no major concerning issues , but likely can improve clinical picture by drain adjustment around the liver. May have to consider taping the R pleural effusion as well with cultures. Still has a chance to recover, but less as the number of days are passing without steady improvement. No indication for acute surgical intervention. Needs to be on her 60 mL/h of tube feeding. Neurologically appears improved and following simple commands. I spoke in person with and updated patient's ex- and answered numerous questions. Previous assessment that still applies today: Overall stable but with failure to thrive. Abdomen continues to remain benign. Trach and PEG being used. Drainage of perihepatic fluid collection ongoing. Of great importance is adequate nutrition and I recommended that we continue the feeds through the PEG with a goal of 60 cc/h with guidance from our dietitian colleagues. With above assessment, I recommended the following for today: 1. Continue aggressive medical management with intubation; CODE STATUS at this point is DO NOT RESUSCITATE but with intubation being okay and no chest compressions or electric shocks. Chemical code is okay. 2. Continue wound VAC; dressing change 3 times a week 3. Cont aggressive pulmonary toilet 4. Please maintain tube feeds at 60 cc per hour 5. Labs in am 6. Please maintain multidisciplinary discussion regarding fluid intake, CODE STATUS, and other major medical decisions since this is a fragile surgical patient with recent sepsis and shock; I changed code status to full code, but without chest compression or electric shock 7. Targeted antimicrobial therapy to culture results 8. PT/OT when patient is able to 9. Wean off vent as tolerated 10. Keep in the ICU (not ready for d/c from ICU or for long-term facility yet) 11. Social work and case management to please start working on disposition planning (rehab versus SNF) 12. Please note: Guille, who is the patient's decision maker currently, would like Mr. Yanez (patient's ex-) to still be involved in her care. He should still have full access to the hospital and patient according to Guille. 13. Tracheostomy management per Dr. Jones 14. IR adjustment of perihepatic fluid collection drain 15. Please flush perihepatic drain with 10cc NS TID 16. Cont treatment of oral thrush Thank you again for your great care of this very pleasant patient and wonderful family. If there are any questions, please feel free to call me at [phone]. Nature of presenting problem: High severity Please note that, given the extensive number of diagnoses or management options , the extensive amount and/or complexity of data needed to be reviewed, and I risk of complications and/or morbidity or mortality, this qualifies as high complexity type of decision-making. Disclaimer: Inadvertent spelling and grammatical errors are likely due to EHR/ dictation software use and do not reflect on the quality of delivered patient care. Also, please note that the electronic time recorded on this node does not necessarily reflect the actual time of the visit. Updated Clinical Summary: A very pleasant 70-year-old lady without significant known past medical history other than a [employer] shunt placement many years ago which she did not remember or report, presenting with what appears to be a sigmoid colon abscess or pericolonic abscess, which seemed to be a complication of diverticulitis. S/p IR drainage 09/09/16 with removal of 20 cc pus and placement of a 10 Fr. pigtail catheter at [facility]. D/c home 09/12/16. Re-presented to [facility] ED 09/15/16 after being diverted from [facility] (due to internal disaster diversion) where CT was done showing adequate placement of the percutaneous drain near the sigmoid colon and decompressed sigmoid colon abscess, no obvious free air or significant spillage of stool in the abdominal cavity, and incidental finding of tail of the [employer] shunt in the pelvis (new from right upper quadrant position of the same drain on the CT scan at [facility]). Transfer to [facility] 09/15/2016 for further cares. S/p upsizing of drain to 12 Fr pigtail on 09/17/16 (communication with colon demonstrated; no obvious free communication to rest of peritoneal space). Patient decompensated in the early hours of the morning on 09/21/2016 and had to be transferred to the intensive care unit with need for endotracheal tube intubation, central line placement, and resuscitation for treatment of shock with lactic acidosis and evidence of peritonitis and free air on the new chest, abdomen, and pelvis CT scan. S/p a rather challenging sigmoid colectomy with performance of end colostomy (Reid's procedure), takedown of splenic flexure of the colon, lysis of adhesions (60 minutes), and abdominal lavage at [facility] on 09/21/16; diagnosis of colon ischemia (distal transverse colon and descending colon) during reentry through recent laparotomy incision with exploration of abdominal cavity, takedown of colostomy, completion left hemicolectomy with resection of distal transverse colon, lysis of adhesions, abdominal lavage, performance of an end colostomy [facility] 09/24/16. Extubated post op evening of 09/25/16. Decompensation with intubation and restart of pressors . Right-sided pneumothorax after drainage of right pleural effusion requiring chest tube placement 09/30/2016. Extubated 10/03/2016. Decompensation with reintubation 10/06/16. Tracheostomy and PEG placed. Perihepatic fluid collections drained 10/13/2016. Cryptococcal antigen found in the urine 2016. Antifungal therapy started. Comorbidities: 1. Perforated sigmoid colon (see below) 2. Status post ventriculoperitoneal shunt placement. 3. Status post prior hysterectomy and bilateral salpingo-oophorectomy through Pfannenstiel incision 4. S/p IR drainage 09/09/16 with removal of 20 cc pus and placement of a 10 Fr. pigtail catheter at [facility]. 5. [address]mission [address] [facility] 09/15/16 with upsizing of drain to 12 Fr pigtail on (communication with colon demonstrated; no obvious free communication to rest of peritoneal space). Septic shock with multiorgan failure 09/21/2016 requiring ICU admission with intubation and pressors. 6. S/p a rather challenging sigmoid colectomy with performance of end colostomy (Reid's procedure), takedown of splenic flexure of the colon, lysis of adhesions (60 minutes), and abdominal lavage at [facility] on 09/21/16 7. Colon ischemia (distal transverse colon and descending colon) 8. S/p reentry through recent laparotomy incision with exploration of abdominal cavity, takedown of colostomy, completion left hemicolectomy with resection of distal transverse colon, lysis of adhesions, abdominal lavage, performance of an end colostomy [facility] 09/24/16 9. Stage I/II decubitus pressure ulcers (10/11/2016 [facility] ICU) Subjective: Remain on a ventilator with tracheostomy without major events. Less lethargic and more communicative. Shakes head "no" when asked about difficulty with breathing or with abdominal pain. Seem to be listening a bit better today. Objective: Vitals: See below I's & O's: See below Exam: GENERAL: On exam, the patient was lying in bed and appeared to be breathing comfortably on the vent. No obvious acute distress. Appears emaciated. ABDOMEN: Soft, nontender and nondistended. Incision dressings are clean, dry and intact without any obvious evidence of underlying erythema, edema, discharge , or hernia. Surgical drain ss without any evidence of enteric contents. There are no peritoneal signs or guarding. Ostomy appears to be viable and productive with stool and air in the bag. Perihepatic drain showing pus. SKIN: Skin appears to be pink and feels warm to touch. NEUROLOGIC: Patient is more awake today and a bit more interactive; follows simple commands. Remains on the ventilator with tracheostomy tube. Labs: See below Exam/Review of Systems Vital Signs Vitals Vital Signs Date Time Temp Pulse Resp B/P Pulse Ox O2 Delivery O2 Flow Rate FiO2 10/20/16 09:18 99 18 100 35 10/20/16 09:00 106/61 10/20/16 08:00 98.1 Mechanical Ventilator Intake and Output 10/19/16 10/19/16 10/20/16 15:00 23:00 07:00 Intake Total 1424 ml 774 ml 1048 ml Output Total 760 ml 550 ml 600 ml Balance 664 ml 224 ml 448 ml Results Result Diagram: 10/20/16 0438 10/20/16 0438 ALEXSANDER DUARTE M.D. Oct 20, 2016 10:50
[2016-10-20] MEDS: TIGECYCLINE 50 MG in SOD CHLORIDE 0.9% 100 ML IVPB SCH (13:07)
--- NOTE | 2016-10-20 13:21 | PN ---
Date/Time of Note Date/Time of Note DATE: 10/20/16 TIME: 13:14 Assessment/Plan VTE Prophylaxis VTE Prophylaxis Intervention: SCD's Lines/Catheters IV Catheter Type (from Nrsg): PICC Line Central line still needed: Yes Urinary Cath still in place: Yes Reason Cath still needed: other (indicate) (critically ill) Assessment/Plan Assessment/Plan 70 yo F with h/o hydrocephalus with previous VPS admitted for sigmoid abscess. hospital stay cb sepsis, colon perforation with multiple abd fluid collections , also recurrent respiratory failure warranting trach, pleural effusion with thora c/b by PTX (chest tube removed) 1. 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 Ventilator dependent respiratory failure: sp trach 3 Left pleural effusion: Status post thoracentesis, complicated with pneumothorax status post placement of a chest tube, removal of chest tube per pulmonology CHEST TUBE PULLED 8.11 4. History of ICH, s/p VPS placement, with subsequent externalization of drain : Neurosurg on board -ID following closely. 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 ID narrowed antifungal to diflucan VPS ligated 8.11 BY NS 5. Paroxysmal A. fib: Now in sinus rhythm status post amiodarone. Cardiology on board 6. Acute renal insufficiency: Resolved. 7. s/p NSTEMI: Likely secondary to septic shock. 8. Volume overload state: HOLD DIURESIS GIVEN LOW BPS 9. Anemia: unclear etio of acute on chronic. 10. Dysphagia Status post PEG tube placement 11. RUE DVT: hold lovenox given anemia Prophylaxis: SCDs CC time 30 minutes transfer to [facility] in AM if BPs remain stable? Defer to gen surg when pt can be transferred Exam/Review of Systems Vital Signs Vitals Vital Signs Date Time Temp Pulse Resp B/P Pulse Ox O2 Delivery O2 Flow Rate FiO2 10/20/16 12:00 98.0 98 16 100/56 100 Mechanical Ventilator 10/20/16 09:18 35 Intake and Output 10/19/16 10/19/16 10/20/16 15:00 23:00 07:00 Intake Total 1424 ml 774 ml 1048 ml Output Total 760 ml 550 ml 600 ml Balance 664 ml 224 ml 448 ml Results Result Diagram: 10/20/16 0438 10/20/16 0438 Results 24 hrs Laboratory Tests Test 10/20/16 04:38 10/20/16 10:23 White Blood Count 30.1 H Red Blood Count 2.55 L Hemoglobin 7.2 L Hematocrit 21.2 L Mean Corpuscular Volume 83.1 Mean Corpuscular Hemoglobin 28.2 L Mean Corpuscular Hemoglobin Concent 34.0 Red Cell Distribution Width 19.8 H Platelet Count 128 L Mean Platelet Volume Neutrophils % 89.8 H Lymphocytes % 3.9 L Monocytes % 4.9 Eosinophils % 0.0 Basophils % 0.1 Nucleated Red Blood Cells % 0.0 Neutrophils # 27.0 H Lymphocytes # 1.2 Monocytes # 1.5 H Eosinophils # 0.0 Basophils # 0.0 Nucleated Red Blood Cells # 0.0 Sodium Level 134 L Potassium Level 3.2 L Chloride Level 98 Carbon Dioxide Level 29 Anion Gap 10 Blood Urea Nitrogen 41 H Creatinine 0.74 Glucose Level 90 Calcium Level 6.8 L Phosphorus Level 6.2 H Magnesium Level 1.9 Lab Scanned Report REFERENCE LAB Medications Medications Current Medications Ondansetron HCl (Zofran Inj) 4 mg Q6H PRN IV NAUSEA AND/OR VOMITING Last administered on 09/26/16 09:23; Admin Dose 4 MG; Start 09/16/16 at 00:30 Acetaminophen (Tylenol Tab) 650 mg Q6H PRN PO PAIN LEVEL 1-3 OR FEVER Last administered on 10/08/16 12:47; Admin Dose 650 MG; Start 09/16/16 at 00:30 Polyethylene Glycol 17 gm 17 gm DAILY PO Last administered on 10/20/16 09:08; Admin Dose 17 GM; Start 09/20/16 at 11:00 Norepinephrine/ Dextrose (Levophed/D5W) 500 ml @ 1.87 mls/hr TITRATE IV Last administered on 10/14/16 06:28; Admin Dose 3.75 MLS/HR; Start 09/21/16 at 09:00 Acetaminophen/ Hydrocodone Bitart ([place] (5/325)) 1 tab Q4H PRN PO PAIN LEVEL 4 -7 Last administered on 09/28/16 21:20; Admin Dose 1 TAB; Start 09/21/16 at 15: 00 Acetaminophen/ Hydrocodone Bitart ([place] (5/325)) 2 tab Q4H PRN PO PAIN LEVEL 7 -10; Start 09/21/16 at 15:00 Hydromorphone HCl (Dilaudid) 0.5 mg Q2H PRN IV PAIN Last administered on 16:41; Admin Dose 0.5 MG; Start 09/21/16 at 15:00 Hydromorphone HCl (Dilaudid) 1 mg Q2H PRN IV PAIN Last administered on 23:57; Admin Dose 1 MG; Start 09/21/16 at 15:00 Docusate Sodium (Colace) 100 mg BID PRN PO CONSTIPATION; Start 09/21/16 at 15: 00 Docusate Sodium (Colace Liquid Cup) 100 mg BID NGT Last administered on 09:08; Admin Dose 100 MG; Start 09/22/16 at 21:00 IV Flush (NS 10 ml) 10 ml PRN PRN IV IV PROTOCOL; Start 09/25/16 at 12:00 Spironolactone 50 mg 50 mg DAILY NGT Last administered on 10/20/16 09:08; Admin Dose 50 MG; Start 09/28/16 at 09:00 Dopamine HCl/ Dextrose 250 ml @ 6.053 mls/ hr TITRATE IV Last administered on 09/30/16 04:46; Admin Dose 6.053 MLS/HR; Start 09/29/16 at 11:00 Phenylephrine HCl/ Dextrose (Marcell-Syneph/D5W) 500 ml @ 75 mls/hr TITRATE IV ; Start 09/29/16 at 14:00 Furosemide (Lasix) 20 mg Q6 IV Last administered on 10/20/16 12:02; Admin Dose 20 MG; Start 10/05/16 at 13:00 Lorazepam 0.5 mg 0.5 mg Q6H PRN IV AGITATION/ANXIETY Last administered on 05:10; Admin Dose 0.5 MG; Start 10/05/16 at 23:00 Fentanyl 100 ml @ 2.5 mls/hr TITRATE IV Last administered on 10/19/16 06:44; Admin Dose 3 MLS/HR; Start 10/07/16 at 09:30 Tigecycline/ Sodium Chloride (Tygacil/NS) 100 ml @ 200 mls/hr Q12 IVPB Last administered on 10/20/16 13:07; Admin Dose 200 MLS/HR; Start 10/07/16 at 21:00 Pantoprazole (Protonix Iv) 40 mg BID@06,18 IV Last administered on 10/20/16 05 :22; Admin Dose 40 MG; Start 10/09/16 at 18:00 Nystatin 5 ml 5 ml QID PO Last administered on 10/20/16 09:08; Admin Dose 5 ML ; Start 10/19/16 at 13:00 Fluconazole (Diflucan 400 Mg/ NS (Pmx)) 200 ml @ 100 mls/hr Q12 IVPB Last administered on 10/20/16 10:34; Admin Dose 100 MLS/HR; Start 10/19/16 at 21:00 ALEKS RAINEY MD Oct 20, 2016 13:21
[2016-10-20] MEDS ORDERED: VANCOMYCIN IV PER PHARMACY XX SCH (14:00)
--- NOTE | 2016-10-20 14:38 | CONS ---
Date/Time of Note Date/Time of Note DATE: 10/20/16 TIME: 14:36 Consult Date/Type/Reason Admit Date/Time Sep 15, 2016 at 21:35 Initial Consult Date 09/21/16 Type of Consultation: Pulmonary Subjective Patient comfortable this morning. Intermittent agitation. Objective Vital Signs Date Time Temp Pulse Resp B/P Pulse Ox O2 Delivery O2 Flow Rate FiO2 10/20/16 13:00 113 19 121/83 100 Mechanical Ventilator 10/20/16 12:00 98.0 10/20/16 09:18 35 Intake and Output 10/19/16 10/19/16 10/20/16 15:00 23:00 07:00 Intake Total 1424 ml 774 ml 1048 ml Output Total 760 ml 550 ml 600 ml Balance 664 ml 224 ml 448 ml Exam PHYSICAL EXAMINATION GENERAL: Elderly lady on mechanical ventilation via tracheostomy VITAL SIGNS: see below. HEENT: Pupils equal, round, and reactive to light. Tracheostomy site clean and intact. CARDIAC: S1, S2, 1/6 systolic ejection murmur CHEST: Diminished air entry bilaterally. ABDOMEN: Mildly distended. Bowel sounds present no guarding or rebound EXTREMITIES: No cyanosis, clubbing edema +1 NEUROLOGIC: Generalized weakness Results/Medications Result Diagram: 10/20/16 0438 10/20/16 0438 Results 24 hrs Laboratory Tests Test 10/20/16 04:38 10/20/16 10:23 White Blood Count 30.1 H Red Blood Count 2.55 L Hemoglobin 7.2 L Hematocrit 21.2 L Mean Corpuscular Volume 83.1 Mean Corpuscular Hemoglobin 28.2 L Mean Corpuscular Hemoglobin Concent 34.0 Red Cell Distribution Width 19.8 H Platelet Count 128 L Mean Platelet Volume Neutrophils % 89.8 H Lymphocytes % 3.9 L Monocytes % 4.9 Eosinophils % 0.0 Basophils % 0.1 Nucleated Red Blood Cells % 0.0 Neutrophils # 27.0 H Lymphocytes # 1.2 Monocytes # 1.5 H Eosinophils # 0.0 Basophils # 0.0 Nucleated Red Blood Cells # 0.0 Sodium Level 134 L Potassium Level 3.2 L Chloride Level 98 Carbon Dioxide Level 29 Anion Gap 10 Blood Urea Nitrogen 41 H Creatinine 0.74 Glucose Level 90 Calcium Level 6.8 L Phosphorus Level 6.2 H Magnesium Level 1.9 Lab Scanned Report REFERENCE LAB Medications Current Medications Ondansetron HCl (Zofran Inj) 4 mg Q6H PRN IV NAUSEA AND/OR VOMITING Last administered on 09/26/16 09:23; Admin Dose 4 MG; Start 09/16/16 at 00:30 Acetaminophen (Tylenol Tab) 650 mg Q6H PRN PO PAIN LEVEL 1-3 OR FEVER Last administered on 10/08/16 12:47; Admin Dose 650 MG; Start 09/16/16 at 00:30 Polyethylene Glycol 17 gm 17 gm DAILY PO Last administered on 10/20/16 09:08; Admin Dose 17 GM; Start 09/20/16 at 11:00 Norepinephrine/ Dextrose (Levophed/D5W) 500 ml @ 1.87 mls/hr TITRATE IV Last administered on 10/14/16 06:28; Admin Dose 3.75 MLS/HR; Start 09/21/16 at 09:00 Acetaminophen/ Hydrocodone Bitart ([place] (5/325)) 1 tab Q4H PRN PO PAIN LEVEL 4 -7 Last administered on 09/28/16 21:20; Admin Dose 1 TAB; Start 09/21/16 at 15: 00 Acetaminophen/ Hydrocodone Bitart ([place] (5/325)) 2 tab Q4H PRN PO PAIN LEVEL 7 -10; Start 09/21/16 at 15:00 Hydromorphone HCl (Dilaudid) 0.5 mg Q2H PRN IV PAIN Last administered on 16:41; Admin Dose 0.5 MG; Start 09/21/16 at 15:00 Hydromorphone HCl (Dilaudid) 1 mg Q2H PRN IV PAIN Last administered on 23:57; Admin Dose 1 MG; Start 09/21/16 at 15:00 Docusate Sodium (Colace) 100 mg BID PRN PO CONSTIPATION; Start 09/21/16 at 15: 00 Docusate Sodium (Colace Liquid Cup) 100 mg BID NGT Last administered on 09:08; Admin Dose 100 MG; Start 09/22/16 at 21:00 IV Flush (NS 10 ml) 10 ml PRN PRN IV IV PROTOCOL; Start 09/25/16 at 12:00 Spironolactone 50 mg 50 mg DAILY NGT Last administered on 10/20/16 09:08; Admin Dose 50 MG; Start 09/28/16 at 09:00 Dopamine HCl/ Dextrose 250 ml @ 6.053 mls/ hr TITRATE IV Last administered on 09/30/16 04:46; Admin Dose 6.053 MLS/HR; Start 09/29/16 at 11:00 Phenylephrine HCl/ Dextrose (Marcell-Syneph/D5W) 500 ml @ 75 mls/hr TITRATE IV ; Start 09/29/16 at 14:00 Furosemide (Lasix) 20 mg Q6 IV Last administered on 10/20/16 12:02; Admin Dose 20 MG; Start 10/05/16 at 13:00 Lorazepam 0.5 mg 0.5 mg Q6H PRN IV AGITATION/ANXIETY Last administered on 05:10; Admin Dose 0.5 MG; Start 10/05/16 at 23:00 Fentanyl (Sublimaze) 100 ml @ 2.5 mls/hr TITRATE IV Last administered on 06:44; Admin Dose 3 MLS/HR; Start 10/07/16 at 09:30 Pantoprazole (Protonix Iv) 40 mg BID@06,18 IV Last administered on 10/20/16 05 :22; Admin Dose 40 MG; Start 10/09/16 at 18:00 Nystatin 5 ml 5 ml QID PO Last administered on 10/20/16 13:42; Admin Dose 5 ML ; Start 10/19/16 at 13:00 Fluconazole 200 ml @ 100 mls/hr Q12 IVPB Last administered on 10/20/16 10:34 ; Admin Dose 100 MLS/HR; Start 10/19/16 at 21:00 Meropenem/Sodium Chloride (Merrem 500mg/50 ml(Pmx)) 50 ml @ 200 mls/hr Q8 IVPB ; Start 10/20/16 at 14:45 Assessment/Plan Chief Complaint/Hosp Course IMP: 1. Status post septic shock persistent severe leukocytosis. 2. Anemia multifactorial 3. Encephalopathy toxic metabolic, resolving 4. VDRF status post tracheostomy 5. Hypernatremia 6. Hypokalemia 7. bilateral infiltrates, small effusions. 8. Deep vein thrombosis right upper extremity anticoagulation held secondary to drop in hemoglobin 9. History of RECYCLING MANAGER shunt status post surgical intervention. Now with shunt ligation. 10. Status post right-sided pneumothorax following thoracentesis. Chest tube removed . RECS: 1. Continue surgery recommendations 2. Continue antibiotics per infectious diseases 3. Vent support 4. Replete K+ and Mg 5. Monitor H&H 6. Continue feeding as tolerated 35 min cc time Problems: DAMIEN GUADARRAMA MD, [facility] Oct 20, 2016 14:38
[2016-10-20] MEDS ORDERED: VANCOMYCIN 1.75 GM in SOD CHLORIDE 0.9% 500 ML IVPB SCH (15:30)
[2016-10-20] MEDS: MEROPENEM 500MG/50 ML (PMX) 50 ML IVPB SCH ×2 (15:44→22:28)
--- NOTE | 2016-10-20 16:50 | PN ---
Date/Time of Note Date/Time of Note DATE: 10/20/16 TIME: 16:49 Assessment/Plan Lines/Catheters IV Catheter Type (from Nrsg): PICC Line Shore in Place (from Nrsg): Yes Assessment/Plan Chief Complaint/Hosp Course This is a 70-year-old female admitted with a perforated colon and contained abscess underwent a drainage procedure on further colonic procedures patient is currently in the intensive care unit unable to come off the ventilator secondary to multiple medical problems Patient was extubated and had to be input intubated again has been treated for septic shock lactic acidosis peritonitis currently has an end colostomy Helio pouch and has undergone colon resection patient also has a right-sided chest tube for a pneumothorax She was reintubated again Status post tracheostomy Tracheal site clean We will continue pulmonary toilet Trach care CT removed Vent support We will DC trach sutures Problems: Subjective 24 Hr Interval Summary Constitutional: improved Pain Control: mild Exam/Review of Systems Vital Signs Vitals Vital Signs Date Time Temp Pulse Resp B/P Pulse Ox O2 Delivery O2 Flow Rate FiO2 10/20/16 16:15 96 20 100 35 10/20/16 15:00 94/49 10/20/16 13:00 Mechanical Ventilator 10/20/16 12:00 98.0 Intake and Output 10/19/16 10/19/16 10/20/16 15:00 23:00 07:00 Intake Total 1424 ml 774 ml 1048 ml Output Total 760 ml 550 ml 600 ml Balance 664 ml 224 ml 448 ml Exam Neck: non-tender, supple Respiratory: clear to auscultation, normal air movement Cardiovascular: nl pulses, regular rate and rhythm Gastrointestinal: nl liver, spleen, non-tender, soft Results Result Diagram: 10/20/16 0438 10/20/16 0438 GIL PINEDA MD Oct 20, 2016 16:50
--- NOTE | 2016-10-20 20:33 | PN ---
DATE: 10/20/2016 SUBJECTIVE DATA: No acute changes overnight. The patient is alert, comfortable on vent. Tolerates tube feeding. No fevers. OBJECTIVE DATA: Temperature 98, pulse 98, respirations 16, blood pressure 100/56, saturation 100 on vent. LABORATORY AND DIAGNOSTIC DATA: WBC 30.1, H and H 7.2 and 21.2, platelets 128, neutrophils 98.9. BUN 41, creatinine 0.74. Chest and abdomen CTs from yesterday reveal overall improvement, lung infiltrates and cavitary lesions decreased. Right pleural effusion has increased following removal of right pleural catheter. Slight decrease in subcapsular fluid collection of the lateral liver. Multiple other stable or slightly decreased fluid collections throughout the abdomen and pelvis. Extensive postoperative changes. Stable anasarca and mild ascites. Thickening of the colonic and small-bowel loops appears similar to prior. No definite bowel obstruction or free air. Possible cystic lesion of the pancreas versus peripancreatic fluid collection. Indwelling: [____] Shore, right-sided abdominal pigtail, right- sided PICC line. Antimicrobials: Fluconazole, Tygacil. PHYSICAL EXAMINATION: GENERAL: Well developed, chronically ill-appearing, wasted, fragile, elderly woman who is awake, in no distress. HEENT: Head atraumatic, normocephalic, sclerae anicteric, buccal mucosa dry. NECK: Supple. Tracheostomy present. CHEST: Symmetric, breath sounds diminished at bases. ABDOMEN: Soft, bowel sounds present. EXTREMITIES: Without cyanosis. ASSESSMENT AND PLAN: 1. Persistent leukocytosis, multifactorial. 2. Extensive pulmonary infiltrates and cavitary lesions, decreased per repeat CT. 3. Status post perforated sigmoid colon repair with end colostomy and lysis of adhesions on September 21, 2016, repeated on September 24, 2016. 4. Status post ventriculoperitoneal shunt externalization on September 21, 2016, now clamped. 5. Positive Cryptococcus antigen serology, questionable source. 6. Status post pneumothorax with persistent pleural effusion, increased per repeat CT. 7. Dysphagia. 8. Respiratory failure. 9. Right upper extremity deep vein thrombosis. PLAN: The patient remains hemodynamically stable, although with increased leukocytosis. We are going to discontinue Tygacil and start her on meropenem and IV vancomycin. We will repeat blood and urine cultures. We will keep her on high-dose fluconazole and await for repeat cryptococcal serology, as well as CSF Michaela ink Cryptococcosis. Patient is being followed by multiple consultants. She is a chemical code only. Dictated By: Susy Lopez NP /rhina/elvia /Document#: [id number]
[2016-10-21] VITALS (50 sets, daily range): BP systolic 82–137; BP diastolic 37–102; PULSE 74–108; RESP 14–30
[2016-10-21] MEDS: ALBUTEROL 18 GM INHALER INH SCH ×6 (00:51→21:24)
[2016-10-21] MEDS: IPRATROPIUM (HFA) 12.9 GM INHALER INH SCH ×6 (00:51→21:24)
[2016-10-21] MEDS ORDERED: VANCOMYCIN 750 MG in SOD CHLORIDE 0.9% 150 ML IVPB SCH (03:00)
[2016-10-21 05:07] LABS: ABNORMAL IP MESSAGE 1; BASOPHIL # 0.1 10^3/ul (0.0-0.1); BASOPHILS % 0.2 % (0.0-2.0); EOSINOPHILS % 0.1 % (0.0-7.0); HEMATOCRIT 20.4 % (37.0-47.0); LYMPHOCYTES # 0.7 10^3/ul (0.8-2.9); LYMPHOCYTES % 3.2 % (15.0-51.0); MEAN CORPUSCULAR HEMOGLOBIN 27.7 pg (29.0-33.0); MEAN CORPUSCULAR HGB CONC 32.8 g/dl (32.0-37.0); MEAN CORPUSCULAR VOLUME 84.3 fl (82.0-101.0); MONOCYTES % 4.3 % (0.0-11.0); NEUTROPHILS % 91.1 % (39.0-77.0); PLATELET COUNT 97 10^3/UL (140-415); RED BLOOD COUNT 2.42 10^6/ul (4.20-5.40); RED CELL DISTRIBUTION WIDTH 19.8 % (11.5-14.5)
[2016-10-21 05:15] LABS: POSITIVE DIFF @See below
[2016-10-21 05:17] LABS: HEMOGLOBIN 6.7 g/dl (12.0-16.0)
[2016-10-21 05:19] LABS: CALCIUM 6.8 mg/dl (8.4-10.2); CREATININE 0.64 mg/dl (0.44-1.00); PHOSPHORUS 4.6 mg/dl (2.5-4.9); POTASSIUM 3.3 mmol/L (3.5-5.1)
[2016-10-21] MEDS: FUROSEMIDE 20 MG INJ IV SCH ×3 (05:51→18:11)
[2016-10-21] MEDS: PANTOPRAZOLE 40 MG INJ IV SCH ×2 (05:51→18:12)
[2016-10-21] MEDS: MEROPENEM 500MG/50 ML (PMX) 50 ML IVPB SCH ×2 (05:51→14:54)
[2016-10-21] MEDS: POTASSIUM CHLORIDE 50 ML IVPB PRN ×3 (06:26→11:09)
--- NOTE | 2016-10-21 08:11 | PN ---
Date/Time of Note Date/Time of Note DATE: 10/21/16 TIME: 08:11 Assessment/Plan Lines/Catheters IV Catheter Type (from Nrsg): PICC Line Shore in Place (from Nrsg): Yes Assessment/Plan Chief Complaint/Hosp Course This is a 70-year-old female admitted with a perforated colon and contained abscess underwent a drainage procedure on further colonic procedures patient is currently in the intensive care unit unable to come off the ventilator secondary to multiple medical problems Patient was extubated and had to be input intubated again has been treated for septic shock lactic acidosis peritonitis currently has an end colostomy Helio pouch and has undergone colon resection patient also has a right-sided chest tube for a pneumothorax She was reintubated again Status post tracheostomy Tracheal site clean We will continue pulmonary toilet Trach care CT removed Vent support trach sutures removed Problems: Subjective 24 Hr Interval Summary Constitutional: improved Pain Control: mild Exam/Review of Systems Vital Signs Vitals Vital Signs Date Time Temp Pulse Resp B/P Pulse Ox O2 Delivery O2 Flow Rate FiO2 10/21/16 06:00 99 24 115/57 100 Mechanical Ventilator 10/21/16 05:42 35 10/21/16 04:00 98.1 Intake and Output 10/20/16 10/20/16 10/21/16 15:00 23:00 07:00 Intake Total 909.5 ml 880 ml 870 ml Output Total 980 ml 825 ml 1015 ml Balance -70.5 ml 55 ml -145 ml Exam ENMT: mucosa pink and moist, nl external ears & nose, nl lips & teeth, nl nasal mucosa & septum Neck: non-tender, supple Respiratory: clear to auscultation, normal air movement Cardiovascular: nl pulses, regular rate and rhythm Gastrointestinal: nl liver, spleen, non-tender, soft Results Result Diagram: 10/21/16 0400 10/21/16399 GIL PINEDA MD Oct 21, 2016 08:11
--- NOTE | 2016-10-21 08:14 | PN ---
DATE: 10/21/2016 SUBJECTIVE DATA: OBJECTIVE DATA: VITAL SIGNS: Blood pressure is 115/57, respirations 24, pulse 99, temperature 98.1. HEENT: Normocephalic. NECK: Supple. HEART: Regular rate. LUNGS: Diminished breath sounds at the base. ABDOMEN: Soft, nontender to palpation. No rebound or guarding. EXTREMITIES: Negative for clubbing, cyanosis. Positive edema. DERMATOLOGIC: No rashes. MUSCULOSKELETAL: No joint effusion. NEUROLOGIC: No change in exam. MEDICATIONS: Reviewed. LABORATORY AND DIAGNOSTIC DATA: Shows a sodium 139, potassium 3.3, chloride 98, BUN 41, creatinine 0.64, calcium 6.8. White count 23.0, hemoglobin 6.7, hematocrit of 28.4, platelet count 97. Chest x-ray on 10/20/2016 reviewed. ABGs reviewed. ASSESSMENT AND PLAN: 1. Nonoliguric acute kidney injury, etiology secondary to acute tubular necrosis. The patient's renal function stabilized. Continue current treatment. Supportive care. Renally dose all meds. 2. Hyponatremia, improved. The patient's etiology is likely from free water flushes. Continue to monitor. 3. Hypokalemia. Continue potassium protocol. 4. Volume overload with diffuse anasarca. Continue current diuretic regimen. 5. Sepsis, status post shock. Continue current antibiotic regimen. 6. Anemia. Monitor H and H levels. 7. Mineral bone disorder. Monitor calcium and phosphorus levels. 8. Ventilatory-dependent respiratory failure. The patient's ABGs and vent settings have been reviewed. 9. Perforated viscus. Status post colectomy with colostomy bag. 10. Abdominal abscess. The patient is status post drain placement. 11. Dysphagia. Continue tube feeding. 12. 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 13. Paroxysmal atrial fibrillation, currently in sinus rhythm. 14. Lower extremity deep vein thrombosis. Continue to monitor. 15. Left pleural effusion, status post thoracentesis. Dictated By: Agustin Sanchez DO /rhina/precious /Document#: [id number]
[2016-10-21] MEDS: NYSTATIN SUSP 5 ML CUP PO SCH ×4 (08:47→21:58)
[2016-10-21] MEDS: FLUCONAZOLE 400 MG/NS (PMX) 200 ML IVPB SCH ×2 (08:47→21:58)
[2016-10-21] MEDS: POLYETHYLENE GLYCOL 17 GM PACKET PO SCH (08:47)
[2016-10-21] MEDS: SPIRONOLACTONE 50 MG TAB NGT SCH (08:49)
[2016-10-21] MEDS: BALSAM PERU/CASTOR OIL 60 GM TUBE TOP SCH (08:49)
[2016-10-21] MEDS: HYDROCODONE/APAP (5/325) TAB PO PRN (08:49)
[2016-10-21] MEDS: DOCUSATE SODIUM 10 MG/ML (10ML CUP) NGT SCH ×2 (08:53→21:00)
[2016-10-21] MEDS: HYDROmorphONE 1 MG/ML SYG IV PRN (09:25)
--- NOTE | 2016-10-21 10:18 | CONS ---
Date/Time of Note Date/Time of Note DATE: 10/21/16 TIME: 10:03 Assessment/Plan Assessment/Plan Additional Assessment/Plan Plan as outlined by Dr. Maldonado We will continue to follow and support patient's ex- We will continue to try to orient patient stimulate her cognition Consultation Date/Type/Reason Admit Date/Time Sep 15, 2016 at 21:35 Initial Consult Date 09/21/16 Type of Consultation: Palliative care 24 HR Interval Summary Free Text/Dictation No change in overall clinical course although she is awake and following simple commands. Her ex- is at the bedside on a daily basis, shunt is been removed Exam/Review of Systems Vital Signs Vitals Vital Signs Date Time Temp Pulse Resp B/P Pulse Ox O2 Delivery O2 Flow Rate FiO2 10/21/16 09:00 95 23 110/56 100 Mechanical Ventilator 10/21/16 08:00 98.3 10/21/16 08:00 35 Intake and Output 10/20/16 10/20/16 10/21/16 15:00 23:00 07:00 Intake Total 909.5 ml 880 ml 870 ml Output Total 980 ml 825 ml 1015 ml Balance -70.5 ml 55 ml -145 ml Exam Head: atraumatic, normocephalic Eyes: EOMI, PERRL, nl conjunctiva, nl lids, nl sclera Neurological: lethargic (Follow simple commands, tracks no acute distress) Results Result Diagram: 10/21/16 0400 10/21/16 0400 Results 24 hrs Laboratory Tests Test 10/20/16 10:23 10/21/16 04:00 Lab Scanned Report REFERENCE LAB White Blood Count 23.0 #H Red Blood Count 2.42 L Hemoglobin 6.7 *L Hematocrit 20.4 L Mean Corpuscular Volume 84.3 Mean Corpuscular Hemoglobin 27.7 L Mean Corpuscular Hemoglobin Concent 32.8 Red Cell Distribution Width 19.8 H Platelet Count 97 #L Mean Platelet Volume Neutrophils % 91.1 H Lymphocytes % 3.2 L Monocytes % 4.3 Eosinophils % 0.1 Basophils % 0.2 Nucleated Red Blood Cells % 0.0 Neutrophils # 21.0 H Lymphocytes # 0.7 L Monocytes # 1.0 H Eosinophils # 0.0 Basophils # 0.1 Nucleated Red Blood Cells # 0.0 Sodium Level 139 Potassium Level 3.3 L Chloride Level 98 Carbon Dioxide Level 29 Anion Gap 15 Blood Urea Nitrogen 41 H Creatinine 0.64 Glucose Level 136 # Calcium Level 6.8 L Phosphorus Level 4.6 Magnesium Level 2.0 Medications Medications Current Medications Ondansetron HCl (Zofran Inj) 4 mg Q6H PRN IV NAUSEA AND/OR VOMITING Last administered on 09/26/16 09:23; Admin Dose 4 MG; Start 09/16/16 at 00:30 Acetaminophen (Tylenol Tab) 650 mg Q6H PRN PO PAIN LEVEL 1-3 OR FEVER Last administered on 10/08/16 12:47; Admin Dose 650 MG; Start 09/16/16 at 00:30 Polyethylene Glycol 17 gm 17 gm DAILY PO Last administered on 10/21/16 08:47; Admin Dose 17 GM; Start 09/20/16 at 11:00 Norepinephrine/ Dextrose (Levophed/D5W) 500 ml @ 1.87 mls/hr TITRATE IV Last administered on 10/14/16 06:28; Admin Dose 3.75 MLS/HR; Start 09/21/16 at 09:00 Acetaminophen/ Hydrocodone Bitart ([place] (5/325)) 1 tab Q4H PRN PO PAIN LEVEL 4 -7 Last administered on 09/28/16 21:20; Admin Dose 1 TAB; Start 09/21/16 at 15: 00 Acetaminophen/ Hydrocodone Bitart ([place] (5/325)) 2 tab Q4H PRN PO PAIN LEVEL 7 -10 Last administered on 10/21/16 08:49; Admin Dose 2 TAB; Start 09/21/16 at 15 :00 Hydromorphone HCl (Dilaudid) 0.5 mg Q2H PRN IV PAIN Last administered on 09:25; Admin Dose 0.5 MG; Start 09/21/16 at 15:00 Hydromorphone HCl (Dilaudid) 1 mg Q2H PRN IV PAIN Last administered on 23:57; Admin Dose 1 MG; Start 09/21/16 at 15:00 Docusate Sodium (Colace) 100 mg BID PRN PO CONSTIPATION; Start 09/21/16 at 15: 00 Docusate Sodium (Colace Liquid Cup) 100 mg BID NGT Last administered on 08:53; Admin Dose 100 MG; Start 09/22/16 at 21:00 IV Flush (NS 10 ml) 10 ml PRN PRN IV IV PROTOCOL; Start 09/25/16 at 12:00 Spironolactone 50 mg 50 mg DAILY NGT Last administered on 10/21/16 08:49; Admin Dose 50 MG; Start 09/28/16 at 09:00 Dopamine HCl/ Dextrose 250 ml @ 6.053 mls/ hr TITRATE IV Last administered on 09/30/16 04:46; Admin Dose 6.053 MLS/HR; Start 09/29/16 at 11:00 Phenylephrine HCl/ Dextrose (Marcell-Syneph/D5W) 500 ml @ 75 mls/hr TITRATE IV ; Start 09/29/16 at 14:00 Furosemide (Lasix) 20 mg Q6 IV Last administered on 10/21/16 05:51; Admin Dose 20 MG; Start 10/05/16 at 13:00 Lorazepam 0.5 mg 0.5 mg Q6H PRN IV AGITATION/ANXIETY Last administered on 05:10; Admin Dose 0.5 MG; Start 10/05/16 at 23:00 Fentanyl (Sublimaze) 100 ml @ 2.5 mls/hr TITRATE IV Last administered on 06:44; Admin Dose 3 MLS/HR; Start 10/07/16 at 09:30 Pantoprazole (Protonix Iv) 40 mg BID@06,18 IV Last administered on 10/21/16 05 :51; Admin Dose 40 MG; Start 10/09/16 at 18:00 Nystatin 5 ml 5 ml QID PO Last administered on 10/21/16 08:47; Admin Dose 5 ML ; Start 10/19/16 at 13:00 Fluconazole 200 ml @ 100 mls/hr Q12 IVPB Last administered on 10/21/16 08:47 ; Admin Dose 100 MLS/HR; Start 10/19/16 at 21:00 Meropenem/Sodium Chloride 50 ml @ 200 mls/hr Q8 IVPB Last administered on 10/21 05:51; Admin Dose 200 MLS/HR; Start 10/20/16 at 14:45 Vancomycin HCl (Vancocin) 250 ml @ 125 mls/hr Q24H IVPB ; Start 10/21/16 at 15: 00 YANETH VIDAL Oct 21, 2016 10:13
--- NOTE | 2016-10-21 10:49 | CONS ---
Date/Time of Note Date/Time of Note DATE: 10/21/16 TIME: 10:48 Consult Date/Type/Reason Admit Date/Time Sep 15, 2016 at 21:35 Initial Consult Date 09/21/16 Type of Consultation: Pulmonary Subjective Awake alert comfortable no new events. Off vasopressors. Objective Vital Signs Date Time Temp Pulse Resp B/P Pulse Ox O2 Delivery O2 Flow Rate FiO2 10/21/16 10:00 98 23 107/79 100 Mechanical Ventilator Trach Collar 10/21/16 08:00 98.3 10/21/16 08:00 35 Intake and Output 10/20/16 10/20/16 10/21/16 15:00 23:00 07:00 Intake Total 909.5 ml 880 ml 930 ml Output Total 980 ml 825 ml 1090 ml Balance -70.5 ml 55 ml -160 ml Exam PHYSICAL EXAMINATION GENERAL: Elderly lady on mechanical ventilation via tracheostomy VITAL SIGNS: see below. HEENT: Pupils equal, round, and reactive to light. Tracheostomy site clean and intact. CARDIAC: S1, S2, systolic ejection murmur. CHEST: Diminished air entry bilaterally. ABDOMEN: Mildly distended. Diminished bowel sounds. EXTREMITIES: No cyanosis, clubbing edema +1 NEUROLOGIC: Generalized weakness Results/Medications Result Diagram: 10/21/16 0400 10/21/16 0400 Results 24 hrs Laboratory Tests Test 10/21/16 04:00 White Blood Count 23.0 #H Red Blood Count 2.42 L Hemoglobin 6.7 *L Hematocrit 20.4 L Mean Corpuscular Volume 84.3 Mean Corpuscular Hemoglobin 27.7 L Mean Corpuscular Hemoglobin Concent 32.8 Red Cell Distribution Width 19.8 H Platelet Count 97 #L Mean Platelet Volume Neutrophils % 91.1 H Lymphocytes % 3.2 L Monocytes % 4.3 Eosinophils % 0.1 Basophils % 0.2 Nucleated Red Blood Cells % 0.0 Neutrophils # 21.0 H Lymphocytes # 0.7 L Monocytes # 1.0 H Eosinophils # 0.0 Basophils # 0.1 Nucleated Red Blood Cells # 0.0 Sodium Level 139 Potassium Level 3.3 L Chloride Level 98 Carbon Dioxide Level 29 Anion Gap 15 Blood Urea Nitrogen 41 H Creatinine 0.64 Glucose Level 136 # Calcium Level 6.8 L Phosphorus Level 4.6 Magnesium Level 2.0 Medications Current Medications Ondansetron HCl (Zofran Inj) 4 mg Q6H PRN IV NAUSEA AND/OR VOMITING Last administered on 09/26/16 09:23; Admin Dose 4 MG; Start 09/16/16 at 00:30 Acetaminophen (Tylenol Tab) 650 mg Q6H PRN PO PAIN LEVEL 1-3 OR FEVER Last administered on 10/08/16 12:47; Admin Dose 650 MG; Start 09/16/16 at 00:30 Polyethylene Glycol 17 gm 17 gm DAILY PO Last administered on 10/21/16 08:47; Admin Dose 17 GM; Start 09/20/16 at 11:00 Norepinephrine/ Dextrose (Levophed/D5W) 500 ml @ 1.87 mls/hr TITRATE IV Last administered on 10/14/16 06:28; Admin Dose 3.75 MLS/HR; Start 09/21/16 at 09:00 Acetaminophen/ Hydrocodone Bitart ([place] (5/325)) 1 tab Q4H PRN PO PAIN LEVEL 4 -7 Last administered on 09/28/16 21:20; Admin Dose 1 TAB; Start 09/21/16 at 15: 00 Acetaminophen/ Hydrocodone Bitart ([place] (5/325)) 2 tab Q4H PRN PO PAIN LEVEL 7 -10 Last administered on 10/21/16 08:49; Admin Dose 2 TAB; Start 09/21/16 at 15 :00 Hydromorphone HCl (Dilaudid) 0.5 mg Q2H PRN IV PAIN Last administered on 09:25; Admin Dose 0.5 MG; Start 09/21/16 at 15:00 Hydromorphone HCl (Dilaudid) 1 mg Q2H PRN IV PAIN Last administered on 23:57; Admin Dose 1 MG; Start 09/21/16 at 15:00 Docusate Sodium (Colace) 100 mg BID PRN PO CONSTIPATION; Start 09/21/16 at 15: 00 Docusate Sodium (Colace Liquid Cup) 100 mg BID NGT Last administered on 08:53; Admin Dose 100 MG; Start 09/22/16 at 21:00 IV Flush (NS 10 ml) 10 ml PRN PRN IV IV PROTOCOL; Start 09/25/16 at 12:00 Spironolactone 50 mg 50 mg DAILY NGT Last administered on 10/21/16 08:49; Admin Dose 50 MG; Start 09/28/16 at 09:00 Dopamine HCl/ Dextrose 250 ml @ 6.053 mls/ hr TITRATE IV Last administered on 09/30/16 04:46; Admin Dose 6.053 MLS/HR; Start 09/29/16 at 11:00 Phenylephrine HCl/ Dextrose (Marcell-Syneph/D5W) 500 ml @ 75 mls/hr TITRATE IV ; Start 09/29/16 at 14:00 Furosemide (Lasix) 20 mg Q6 IV Last administered on 10/21/16 05:51; Admin Dose 20 MG; Start 10/05/16 at 13:00 Lorazepam 0.5 mg 0.5 mg Q6H PRN IV AGITATION/ANXIETY Last administered on 05:10; Admin Dose 0.5 MG; Start 10/05/16 at 23:00 Fentanyl (Sublimaze) 100 ml @ 2.5 mls/hr TITRATE IV Last administered on 06:44; Admin Dose 3 MLS/HR; Start 10/07/16 at 09:30 Pantoprazole (Protonix Iv) 40 mg BID@06,18 IV Last administered on 10/21/16 05 :51; Admin Dose 40 MG; Start 10/09/16 at 18:00 Nystatin 5 ml 5 ml QID PO Last administered on 10/21/16 08:47; Admin Dose 5 ML ; Start 10/19/16 at 13:00 Fluconazole 200 ml @ 100 mls/hr Q12 IVPB Last administered on 10/21/16 08:47 ; Admin Dose 100 MLS/HR; Start 10/19/16 at 21:00 Meropenem/Sodium Chloride 50 ml @ 200 mls/hr Q8 IVPB Last administered on 10/21 05:51; Admin Dose 200 MLS/HR; Start 10/20/16 at 14:45 Vancomycin HCl (Vancocin) 250 ml @ 125 mls/hr Q24H IVPB ; Start 10/21/16 at 15: 00 Assessment/Plan Chief Complaint/Hosp Course IMP: 1. Status post septic shock persistent severe leukocytosis. 2. Anemia multifactorial 3. Encephalopathy toxic metabolic, resolving 4. VDRF status post tracheostomy 5. Hypernatremia 6. Hypokalemia 7. bilateral infiltrates, small effusions. 8. Deep vein thrombosis right upper extremity anticoagulation held secondary to drop in hemoglobin 9. History of CHOPPER OPERATOR shunt status post surgical intervention. Now with shunt ligation. 10. Status post right-sided pneumothorax following thoracentesis. Chest tube removed . RECS: 1. Continue surgery recommendations 2. Continue antibiotics per infectious diseases 3. Vent support 4. Replete K+ and Mg 5. Monitor H&H 6. Continue feeding as tolerated 7. Transfuse 2 units packed red blood cells 8. Discussed with nursing staff may require drain adjustment. Will defer to surgery. 35 min cc time Problems: DAMIEN GUADARRAMA MD, [facility] Oct 21, 2016 10:49
[2016-10-21 12:39] LABS: ABNORMAL IP MESSAGE 1; BASOPHILS % 0.2 % (0.0-2.0); EOSINOPHILS # 0.1 10^3/ul (0.0-0.5); EOSINOPHILS % 0.4 % (0.0-7.0); HEMATOCRIT 18.8 % (37.0-47.0); LYMPHOCYTES # 0.8 10^3/ul (0.8-2.9); LYMPHOCYTES % 4.4 % (15.0-51.0); MEAN CORPUSCULAR HEMOGLOBIN 28.9 pg (29.0-33.0); MEAN CORPUSCULAR HGB CONC 33.5 g/dl (32.0-37.0); MEAN CORPUSCULAR VOLUME 86.2 fl (82.0-101.0); MONOCYTE # 0.8 10^3/ul (0.3-0.9); MONOCYTES % 4.1 % (0.0-11.0); NEUTROPHIL # 16.7 10^3/ul (1.6-7.5); NEUTROPHILS % 89.7 % (39.0-77.0); PLATELET COUNT 79 10^3/UL (140-415); RED BLOOD COUNT 2.18 10^6/ul (4.20-5.40); RED CELL DISTRIBUTION WIDTH 19.7 % (11.5-14.5); WHITE BLOOD COUNT 18.7 10^3/ul (4.8-10.8)
[2016-10-21 12:43] LABS: HEMOGLOBIN 6.3 g/dl (12.0-16.0); POSITIVE DIFF @See below
--- NOTE | 2016-10-21 13:41 | PN ---
Date/Time of Note Date/Time of Note DATE: 10/21/16 TIME: 13:37 Assessment/Plan Lines/Catheters IV Catheter Type (from Nrs): PICC Line Shore in Place (from Nrs): Yes Assessment/Plan Assessment/Plan [facility] Progress Note Date of Service: 10/21/2016 Place of service: [facility] ICU Today's Assessment & Plan: Overall still improving, all be it slowly. Hg drop likely from chronic disease and not active hemorrhage. Appears overall better today than the last number of days. Awaiting IR adjustment of perihepatic drain. Previous assessment that still applies today: Overall stable but with failure to thrive. Abdomen continues to remain benign. Trach and PEG being used. Drainage of perihepatic fluid collection ongoing. Of great importance is adequate nutrition and I recommended that we continue the feeds through the PEG with a goal of 60 cc/h with guidance from our dietitian colleagues. With above assessment, I recommended the following for today: 1. Continue aggressive medical management with intubation; CODE STATUS at this point is DO NOT RESUSCITATE but with intubation being okay and no chest compressions or electric shocks. Chemical code is okay. 2. Continue wound VAC; dressing change 3 times a week 3. Cont aggressive pulmonary toilet 4. Please maintain tube feeds at 60 cc per hour 5. Labs in am 6. Please maintain multidisciplinary discussion regarding fluid intake, CODE STATUS, and other major medical decisions since this is a fragile surgical patient with recent sepsis and shock; I changed code status to full code, but without chest compression or electric shock 7. Targeted antimicrobial therapy to culture results 8. PT/OT when patient is able to 9. Wean off vent as tolerated 10. Keep in the ICU (not ready for d/c from ICU or for long-term facility yet) 11. Social work and case management to please start working on disposition planning (rehab versus SNF) 12. Please note: Guille, who is the patient's decision maker currently, would like Mr. Yanez (patient's ex-) to still be involved in her care. He should still have full access to the hospital and patient according to Guille. 13. Tracheostomy management per Dr. Jones 14. IR adjustment of perihepatic fluid collection drain 15. Please flush perihepatic drain with 10cc NS TID 16. Cont treatment of oral thrush 17. Agree with one unit of PRBC transfusion and Hg check 30 min post. Will evaluate for second unit if needed after above 18. Please start weaning trials off the vent Thank you again for your great care of this very pleasant patient and wonderful family. If there are any questions, please feel free to call me at [phone]. Nature of presenting problem: High severity Please note that, given the extensive number of diagnoses or management options , the extensive amount and/or complexity of data needed to be reviewed, and I risk of complications and/or morbidity or mortality, this qualifies as high complexity type of decision-making. Disclaimer: Inadvertent spelling and grammatical errors are likely due to EHR/ dictation software use and do not reflect on the quality of delivered patient care. Also, please note that the electronic time recorded on this node does not necessarily reflect the actual time of the visit. Updated Clinical Summary: A very pleasant 70-year-old lady without significant known past medical history other than a COAL WASHER shunt placement many years ago which she did not remember or report, presenting with what appears to be a sigmoid colon abscess or pericolonic abscess, which seemed to be a complication of diverticulitis. S/p IR drainage 09/09/16 with removal of 20 cc pus and placement of a 10 Fr. pigtail catheter at [facility]. D/c home 09/12/16. Re-presented to [facility] 09/15/16 after being diverted from [facility] (due to internal disaster diversion) where CT was done showing adequate placement of the percutaneous drain near the sigmoid colon and decompressed sigmoid colon abscess, no obvious free air or significant spillage of stool in the abdominal cavity, and incidental finding of tail of the COAL WASHER shunt in the pelvis (new from right upper quadrant position of the same drain on the CT scan at [facility]). Transfer to [facility] 09/15/2016 for further cares. S/p upsizing of drain to 12 Fr pigtail on 09/17/16 (communication with colon demonstrated; no obvious free communication to rest of peritoneal space). Patient decompensated in the early hours of the morning on 09/21/2016 and had to be transferred to the intensive care unit with need for endotracheal tube intubation, central line placement, and resuscitation for treatment of shock with lactic acidosis and evidence of peritonitis and free air on the new chest, abdomen, and pelvis CT scan. S/p a rather challenging sigmoid colectomy with performance of end colostomy (Reid's procedure), takedown of splenic flexure of the colon, lysis of adhesions (60 minutes), and abdominal lavage at [facility] on 09/21/16; diagnosis of colon ischemia (distal transverse colon and descending colon) during reentry through recent laparotomy incision with exploration of abdominal cavity, takedown of colostomy, completion left hemicolectomy with resection of distal transverse colon, lysis of adhesions, abdominal lavage, performance of an end colostomy [facility] 09/24/16. Extubated post op evening of 09/25/16. Decompensation with intubation and restart of pressors . Right-sided pneumothorax after drainage of right pleural effusion requiring chest tube placement 09/30/2016. Extubated 10/03/2016. Decompensation with reintubation 10/06/16. Tracheostomy and PEG placed. Perihepatic fluid collections drained 10/13/2016. Cryptococcal antigen found in the urine 2016. Antifungal therapy started. Comorbidities: 1. Perforated sigmoid colon (see below) 2. Status post ventriculoperitoneal shunt placement. 3. Status post prior hysterectomy and bilateral salpingo-oophorectomy through Pfannenstiel incision 4. S/p IR drainage 09/09/16 with removal of 20 cc pus and placement of a 10 Fr. pigtail catheter at [facility]. 5. Readmission to [facility] 09/15/16 with upsizing of drain to 12 Fr pigtail on (communication with colon demonstrated; no obvious free communication to rest of peritoneal space). Septic shock with multiorgan failure 09/21/2016 requiring ICU admission with intubation and pressors. 6. S/p a rather challenging sigmoid colectomy with performance of end colostomy (Reid's procedure), takedown of splenic flexure of the colon, lysis of adhesions (60 minutes), and abdominal lavage at [facility] on 09/21/16 7. Colon ischemia (distal transverse colon and descending colon) 8. S/p reentry through recent laparotomy incision with exploration of abdominal cavity, takedown of colostomy, completion left hemicolectomy with resection of distal transverse colon, lysis of adhesions, abdominal lavage, performance of an end colostomy [facility] 09/24/16 9. Stage I/II decubitus pressure ulcers (10/11/2016 [facility] ICU) Subjective: Remain on a ventilator with tracheostomy without major events. Less lethargic and more communicative. No major noted complaints regarding abdominal pain. Objective: Vitals: See below I's & O's: See below Exam: GENERAL: On exam, the patient was lying in bed and appeared to be breathing comfortably on the vent. No obvious acute distress. Appears emaciated. ABDOMEN: Soft, nontender and nondistended. Incision dressings are clean, dry and intact without any obvious evidence of underlying erythema, edema, discharge , or hernia. Surgical drain ss without any evidence of enteric contents. There are no peritoneal signs or guarding. Ostomy appears to be viable and productive with stool and air in the bag. Perihepatic drain showing pus. SKIN: Skin appears to be pink and feels warm to touch. NEUROLOGIC: Patient is more awake today and a bit more interactive; follows simple commands. Remains on the ventilator with tracheostomy tube. Labs: See below Exam/Review of Systems Vital Signs Vitals Vital Signs Date Time Temp Pulse Resp B/P Pulse Ox O2 Delivery O2 Flow Rate FiO2 10/21/16 13:00 99 19 124/62 100 Mechanical Ventilator 10/21/16 12:00 98.3 10/21/16 08:00 35 Intake and Output 10/20/16 10/20/16 10/21/16 15:00 23:00 07:00 Intake Total 909.5 ml 880 ml 930 ml Output Total 980 ml 825 ml 1090 ml Balance -70.5 ml 55 ml -160 ml Results Result Diagram: 10/21/16 1203 10/21/16 0400 ALEXSANDER DUARTE M.D. Oct 21, 2016 13:40
--- NOTE | 2016-10-21 14:46 | PN ---
Date/Time of Note Date/Time of Note DATE: 10/21/16 TIME: 14:45 Assessment/Plan VTE Prophylaxis VTE Prophylaxis Intervention: SCD's Assessment/Plan Chief Complaint/Hosp Course 70 yo F with h/o hydrocephalus with previous VPS admitted for sigmoid abscess. hospital stay cb sepsis, colon perforation with multiple abd fluid collections , also recurrent respiratory failure warranting trach, pleural effusion with thora c/b by PTX (chest tube removed) 1. 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 Ventilator dependent respiratory failure: sp trach 3 Left pleural effusion: Status post thoracentesis, complicated with pneumothorax status post placement of a chest tube, removal of chest tube per pulmonology CHEST TUBE PULLED 8.11 4. History of ICH, s/p VPS placement, with subsequent externalization of drain : Neurosurg on board -ID following closely. 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 ID narrowed antifungal to diflucan VPS ligated 8.11 BY NS 5. Paroxysmal A. fib: Now in sinus rhythm status post amiodarone. Cardiology on board 6. Acute renal insufficiency: Resolved. 7. s/p NSTEMI: Likely secondary to septic shock. 8. Volume overload state: HOLD DIURESIS GIVEN LOW BPS 9. Anemia: unclear etio of acute on chronic. 10. Dysphagia Status post PEG tube placement 11. RUE DVT: hold lovenox given anemia Prophylaxis: SCDs Problems: Subjective 24 Hr Interval Summary Subjective hx not possible: pt non-verbal Exam/Review of Systems Vital Signs Vitals Vital Signs Date Time Temp Pulse Resp B/P Pulse Ox O2 Delivery O2 Flow Rate FiO2 10/21/16 13:00 99 19 124/62 100 Mechanical Ventilator 10/21/16 12:00 98.3 10/21/16 08:00 35 Intake and Output 10/20/16 10/20/16 10/21/16 15:00 23:00 07:00 Intake Total 909.5 ml 880 ml 930 ml Output Total 980 ml 825 ml 1090 ml Balance -70.5 ml 55 ml -160 ml Exam Constitutional: non-verbal Respiratory: clear to auscultation Cardiovascular: regular rate and rhythm Gastrointestinal: soft, No distended Musculoskeletal: nl extremities to inspection Results Result Diagram: 10/21/16 1203 10/21/16 0400 Results 24 hrs Laboratory Tests Test 10/21/16 04:00 10/21/16 12:03 White Blood Count 23.0 #H 18.7 H Red Blood Count 2.42 L 2.18 L Hemoglobin 6.7 *L 6.3 *L Hematocrit 20.4 L 18.8 L Mean Corpuscular Volume 84.3 86.2 Mean Corpuscular Hemoglobin 27.7 L 28.9 L Mean Corpuscular Hemoglobin Concent 32.8 33.5 Red Cell Distribution Width 19.8 H 19.7 H Platelet Count 97 #L 79 L Mean Platelet Volume Neutrophils % 91.1 H 89.7 H Lymphocytes % 3.2 L 4.4 L Monocytes % 4.3 4.1 Eosinophils % 0.1 0.4 Basophils % 0.2 0.2 Nucleated Red Blood Cells % 0.0 0.0 Neutrophils # 21.0 H 16.7 H Lymphocytes # 0.7 L 0.8 Monocytes # 1.0 H 0.8 Eosinophils # 0.0 0.1 Basophils # 0.1 0.0 Nucleated Red Blood Cells # 0.0 0.0 Sodium Level 139 Potassium Level 3.3 L Chloride Level 98 Carbon Dioxide Level 29 Anion Gap 15 Blood Urea Nitrogen 41 H Creatinine 0.64 Glucose Level 136 # Calcium Level 6.8 L Phosphorus Level 4.6 Magnesium Level 2.0 Medications Medications Current Medications Ondansetron HCl (Zofran Inj) 4 mg Q6H PRN IV NAUSEA AND/OR VOMITING Last administered on 09/26/16 09:23; Admin Dose 4 MG; Start 09/16/16 at 00:30 Acetaminophen (Tylenol Tab) 650 mg Q6H PRN PO PAIN LEVEL 1-3 OR FEVER Last administered on 10/08/16 12:47; Admin Dose 650 MG; Start 09/16/16 at 00:30 Polyethylene Glycol 17 gm 17 gm DAILY PO Last administered on 10/21/16 08:47; Admin Dose 17 GM; Start 09/20/16 at 11:00 Norepinephrine/ Dextrose (Levophed/D5W) 500 ml @ 1.87 mls/hr TITRATE IV Last administered on 10/14/16 06:28; Admin Dose 3.75 MLS/HR; Start 09/21/16 at 09:00 Acetaminophen/ Hydrocodone Bitart ([place] (5/325)) 1 tab Q4H PRN PO PAIN LEVEL 4 -7 Last administered on 09/28/16 21:20; Admin Dose 1 TAB; Start 09/21/16 at 15: 00 Acetaminophen/ Hydrocodone Bitart ([place] (5/325)) 2 tab Q4H PRN PO PAIN LEVEL 7 -10 Last administered on 10/21/16 08:49; Admin Dose 2 TAB; Start 09/21/16 at 15 :00 Hydromorphone HCl (Dilaudid) 0.5 mg Q2H PRN IV PAIN Last administered on 09:25; Admin Dose 0.5 MG; Start 09/21/16 at 15:00 Hydromorphone HCl (Dilaudid) 1 mg Q2H PRN IV PAIN Last administered on 23:57; Admin Dose 1 MG; Start 09/21/16 at 15:00 Docusate Sodium (Colace) 100 mg BID PRN PO CONSTIPATION; Start 09/21/16 at 15: 00 Docusate Sodium (Colace Liquid Cup) 100 mg BID NGT Last administered on 08:53; Admin Dose 100 MG; Start 09/22/16 at 21:00 IV Flush (NS 10 ml) 10 ml PRN PRN IV IV PROTOCOL; Start 09/25/16 at 12:00 Spironolactone 50 mg 50 mg DAILY NGT Last administered on 10/21/16 08:49; Admin Dose 50 MG; Start 09/28/16 at 09:00 Dopamine HCl/ Dextrose 250 ml @ 6.053 mls/ hr TITRATE IV Last administered on 09/30/16 04:46; Admin Dose 6.053 MLS/HR; Start 09/29/16 at 11:00 Phenylephrine HCl/ Dextrose (Marcell-Syneph/D5W) 500 ml @ 75 mls/hr TITRATE IV ; Start 09/29/16 at 14:00 Furosemide (Lasix) 20 mg Q6 IV Last administered on 10/21/16 12:43; Admin Dose 20 MG; Start 10/05/16 at 13:00 Lorazepam 0.5 mg 0.5 mg Q6H PRN IV AGITATION/ANXIETY Last administered on 05:10; Admin Dose 0.5 MG; Start 10/05/16 at 23:00 Fentanyl (Sublimaze) 100 ml @ 2.5 mls/hr TITRATE IV Last administered on 06:44; Admin Dose 3 MLS/HR; Start 10/07/16 at 09:30 Pantoprazole (Protonix Iv) 40 mg BID@06,18 IV Last administered on 10/21/16 05 :51; Admin Dose 40 MG; Start 10/09/16 at 18:00 Nystatin 5 ml 5 ml QID PO Last administered on 10/21/16 12:43; Admin Dose 5 ML ; Start 10/19/16 at 13:00 Fluconazole 200 ml @ 100 mls/hr Q12 IVPB Last administered on 10/21/16 08:47 ; Admin Dose 100 MLS/HR; Start 10/19/16 at 21:00 Meropenem/Sodium Chloride 50 ml @ 200 mls/hr Q8 IVPB Last administered on 10/21 05:51; Admin Dose 200 MLS/HR; Start 10/20/16 at 14:45; Stop 10/21/16 at 17 :00 Vancomycin HCl 250 ml @ 125 mls/hr Q24H IVPB ; Start 10/21/16 at 15:00 Meropenem/Sodium Chloride (Merrem 1 Gm/50 ml (Pmx)) 50 ml @ 100 mls/hr Q12 IVPB ; Start 10/21/16 at 21:00 DALE RODARTE Oct 21, 2016 14:46
[2016-10-21] MEDS: VANCOMYCIN 1 GM in NS 250 ML IVPB SCH (14:56)
[2016-10-21 17:42] LABS: HEMATOCRIT 24.4 % (37.0-47.0); HEMOGLOBIN 8.3 g/dl (12.0-16.0)
[2016-10-21] MEDS: MEROPENEM 1 GM/50ML(PMX) 50 ML IVPB SCH (21:58)
[2016-10-22] VITALS (83 sets, daily range): BP systolic 70–139; BP diastolic 43–89; PULSE 69–107; RESP 13–32
[2016-10-22] MEDS: ALBUTEROL 18 GM INHALER INH SCH ×6 (00:44→21:50)
[2016-10-22] MEDS: IPRATROPIUM (HFA) 12.9 GM INHALER INH SCH ×6 (00:44→21:50)
[2016-10-22] MEDS: FUROSEMIDE 20 MG INJ IV SCH ×4 (01:37→20:06)
--- NOTE | 2016-10-22 04:10 | PN ---
DATE: 10/21/2016 SUBJECTIVE DATA: No acute events. Patient is awake, looks comfortable, no fevers. VITAL SIGNS: Temperature 98, pulse 81, respirations 20, blood pressure 103/54, saturation 100 on vent. LABORATORY AND DIAGNOSTIC DATA: WBC 18.7, H and H 6.3 and 18.8, platelets 79, neutrophils 89.7. BUN 41, creatinine 0.64. INDWELLING: Trach, PEG, Shore, INDUSTRIAL TECHNOLOGY TEACHER shunt, PICC line. ANTIMICROBIALS: 1. Meropenem. 2. Vancomycin. 3. Fluconazole. PHYSICAL EXAMINATION: GENERAL: This is a fragile, chronically ill-appearing, elderly woman who is awake, in no distress. HEENT: Head atraumatic, normocephalic. Eyes: Sclerae anicteric. Buccal mucosa dry. NECK: Supple. Tracheostomy present. CHEST: Rise symmetrical. Breath sounds diminished to bases. HEART: S1, S2. ABDOMEN: Soft, bowel sounds hypoactive. EXTREMITIES: With trace edema. ASSESSMENT: 1. Sepsis, status post shock. 2. Persistent leukocytosis, multifactorial. 3. Extensive pulmonary infiltrates and cavitary lesions as per CT of chest. 4. Status post perforated sigmoid colon repair with end colostomy on September 21, 2016, repeated on September 24, 2016. 5. Status post ventriculoperitoneal shunt externalization on September 21. 6. Positive cryptococcus antigen serology, source unknown. 7. Dysphagia. 8. Right upper extremity deep venous thrombosis. 9. [id number] anemia. 10. Status post right-sided pneumothorax following thoracentesis, chest tube removed. PLAN: Patient remains stable. White blood cell count tracing down. She is scheduled for Interventional Radiology adjustment of perihepatic drain. She is being followed by multiple consultants. We will continue her on current regimen. Patient is getting blood transfusion now. Dictated By: Kathy Lopez NP /rhina/francisco /Document#: [id number] BRITTANID
[2016-10-22 05:22] LABS: CALCIUM 6.9 mg/dl (8.4-10.2); CREATININE 0.68 mg/dl (0.44-1.00); MAGNESIUM 1.9 mg/dl (1.7-2.5); PHOSPHORUS 3.3 mg/dl (2.5-4.9); POTASSIUM 3.4 mmol/L (3.5-5.1)
[2016-10-22] MEDS: PANTOPRAZOLE 40 MG INJ IV SCH ×2 (05:48→17:53)
--- NOTE | 2016-10-22 09:04 | PN ---
Date/Time of Note Date/Time of Note DATE: 10/22/16 TIME: 09:03 Assessment/Plan Lines/Catheters IV Catheter Type (from Nrs): PICC Line Shore in Place (from Nrs): Yes Assessment/Plan Assessment/Plan [facility] Progress Note Date of Service: 10/22/2016 Place of service: [facility] ICU Today's Assessment & Plan: Overall still improving, all be it slowly. Hg responded to 1 unit of packed red blood cells. No indication of active hemorrhage. Appears overall better today than the last number of days. Awaiting IR adjustment of perihepatic drain and weaning from the vent. Previous assessment that still applies today: Overall stable but with failure to thrive. Abdomen continues to remain benign. Trach and PEG being used. Drainage of perihepatic fluid collection ongoing. Of great importance is adequate nutrition and I recommended that we continue the feeds through the PEG with a goal of 60 cc/h with guidance from our dietitian colleagues. With above assessment, I recommended the following for today: 1. Continue aggressive medical management with intubation; CODE STATUS at this point is DO NOT RESUSCITATE but with intubation being okay and no chest compressions or electric shocks. Chemical code is okay. 2. Continue wound VAC; dressing change 3 times a week 3. Cont aggressive pulmonary toilet 4. Please maintain tube feeds at 60 cc per hour 5. Labs in am 6. Please maintain multidisciplinary discussion regarding fluid intake, CODE STATUS, and other major medical decisions since this is a fragile surgical patient with recent sepsis and shock; I changed code status to full code, but without chest compression or electric shock 7. Targeted antimicrobial therapy to culture results 8. PT/OT when patient is able to 9. Wean off vent as tolerated 10. Keep in the ICU (not ready for d/c from ICU or for long-term facility yet) 11. Social work and case management to please start working on disposition planning (rehab versus SNF) 12. Please note: Guille, who is the patient's decision maker currently, would like Mr. Yanez (patient's ex-) to still be involved in her care. He should still have full access to the hospital and patient according to Guille. 13. Tracheostomy management per Dr. Jones 14. IR adjustment of perihepatic fluid collection drain 15. Please flush perihepatic drain with 10cc NS TID 16. Cont treatment of oral thrush 17. Please start weaning trials off the vent Thank you again for your great care of this very pleasant patient and wonderful family. If there are any questions, please feel free to call me at [phone]. Nature of presenting problem: High severity Please note that, given the extensive number of diagnoses or management options , the extensive amount and/or complexity of data needed to be reviewed, and I risk of complications and/or morbidity or mortality, this qualifies as high complexity type of decision-making. Disclaimer: Inadvertent spelling and grammatical errors are likely due to EHR/ dictation software use and do not reflect on the quality of delivered patient care. Also, please note that the electronic time recorded on this node does not necessarily reflect the actual time of the visit. Updated Clinical Summary: A very pleasant 70-year-old lady without significant known past medical history other than a TRANSFORMATION ARCHITECT shunt placement many years ago which she did not remember or report, presenting with what appears to be a sigmoid colon abscess or pericolonic abscess, which seemed to be a complication of diverticulitis. S/p IR drainage 09/09/16 with removal of 20 cc pus and placement of a 10 Fr. pigtail catheter at [facility]. D/c home 09/12/16. Re-presented to [facility] ED 09/15/16 after being diverted from [facility] (due to internal disaster diversion) where CT was done showing adequate placement of the percutaneous drain near the sigmoid colon and decompressed sigmoid colon abscess, no obvious free air or significant spillage of stool in the abdominal cavity, and incidental finding of tail of the TRANSFORMATION ARCHITECT shunt in the pelvis (new from right upper quadrant position of the same drain on the CT scan at [facility]). Transfer to [facility] 09/15/2016 for further cares. S/p upsizing of drain to 12 Fr pigtail on 09/17/16 (communication with colon demonstrated; no obvious free communication to rest of peritoneal space). Patient decompensated in the early hours of the morning on 09/21/2016 and had to be transferred to the intensive care unit with need for endotracheal tube intubation, central line placement, and resuscitation for treatment of shock with lactic acidosis and evidence of peritonitis and free air on the new chest, abdomen, and pelvis CT scan. S/p a rather challenging sigmoid colectomy with performance of end colostomy (Reid's procedure), takedown of splenic flexure of the colon, lysis of adhesions (60 minutes), and abdominal lavage at [facility] on 09/21/16; diagnosis of colon ischemia (distal transverse colon and descending colon) during reentry through recent laparotomy incision with exploration of abdominal cavity, takedown of colostomy, completion left hemicolectomy with resection of distal transverse colon, lysis of adhesions, abdominal lavage, performance of an end colostomy [facility] 09/24/16. Extubated post op evening of 09/25/16. Decompensation with intubation and restart of pressors . Right-sided pneumothorax after drainage of right pleural effusion requiring chest tube placement 09/30/2016. Extubated 10/03/2016. Decompensation with reintubation 10/06/16. Tracheostomy and PEG placed. Perihepatic fluid collections drained 10/13/2016. Cryptococcal antigen found in the urine 2016. Antifungal therapy started. Comorbidities: 1. Perforated sigmoid colon (see below) 2. Status post ventriculoperitoneal shunt placement. 3. Status post prior hysterectomy and bilateral salpingo-oophorectomy through Pfannenstiel incision 4. S/p IR drainage 09/09/16 with removal of 20 cc pus and placement of a 10 Fr. pigtail catheter at [facility]. 5. Readmission to [facility] 09/15/16 with upsizing of drain to 12 Fr pigtail on (communication with colon demonstrated; no obvious free communication to rest of peritoneal space). Septic shock with multiorgan failure 09/21/2016 requiring ICU admission with intubation and pressors. 6. S/p a rather challenging sigmoid colectomy with performance of end colostomy (Reid's procedure), takedown of splenic flexure of the colon, lysis of adhesions (60 minutes), and abdominal lavage at [facility] on 09/21/16 7. Colon ischemia (distal transverse colon and descending colon) 8. S/p reentry through recent laparotomy incision with exploration of abdominal cavity, takedown of colostomy, completion left hemicolectomy with resection of distal transverse colon, lysis of adhesions, abdominal lavage, performance of an end colostomy [facility] 09/24/16 9. Stage I/II decubitus pressure ulcers (10/11/2016 [facility] ICU) Subjective: Remain on a ventilator with tracheostomy without major events. Less lethargic and more communicative. No major noted complaints regarding abdominal pain. Objective: Vitals: See below I's & O's: See below Exam: GENERAL: On exam, the patient was lying in bed and appeared to be breathing comfortably on the vent. No obvious acute distress. Appears emaciated. ABDOMEN: Soft, nontender and nondistended. Incision dressings are clean, dry and intact without any obvious evidence of underlying erythema, edema, discharge , or hernia. Surgical drain ss without any evidence of enteric contents. There are no peritoneal signs or guarding. Ostomy appears to be viable and productive with stool and air in the bag. Perihepatic drain showing pus. SKIN: Skin appears to be pink and feels warm to touch. NEUROLOGIC: Patient is more awake today and a bit more interactive; follows simple commands. Remains on the ventilator with tracheostomy tube. Labs: See below Exam/Review of Systems Vital Signs Vitals Vital Signs Date Time Temp Pulse Resp B/P Pulse Ox O2 Delivery O2 Flow Rate FiO2 10/22/16 08:00 97.9 95 27 134/79 100 Mechanical Ventilator 10/22/16 07:30 35 Intake and Output 10/21/16 10/21/16 10/22/16 15:00 23:00 07:00 Intake Total 1240 ml 1330 ml 1020 ml Output Total 870 ml 900 ml 850 ml Balance 370 ml 430 ml 170 ml Results Result Diagram: 10/21/16 1730 10/22/16 0415 ALEXSANDER DUARTE M.D. Oct 22, 2016 09:04
[2016-10-22] MEDS: FLUCONAZOLE 400 MG/NS (PMX) 200 ML IVPB SCH ×2 (09:47→21:40)
[2016-10-22] MEDS: POLYETHYLENE GLYCOL 17 GM PACKET PO SCH (09:47)
[2016-10-22] MEDS: MEROPENEM 1 GM/50ML(PMX) 50 ML IVPB SCH ×2 (09:49→21:41)
[2016-10-22] MEDS: NYSTATIN SUSP 5 ML CUP PO SCH ×4 (09:49→21:40)
[2016-10-22] MEDS: DOCUSATE SODIUM 10 MG/ML (10ML CUP) NGT SCH ×2 (09:49→21:00)
[2016-10-22] MEDS: BALSAM PERU/CASTOR OIL 60 GM TUBE TOP SCH (09:49)
[2016-10-22] MEDS: SPIRONOLACTONE 50 MG TAB NGT SCH (09:49)
--- NOTE | 2016-10-22 09:50 | PN ---
Date/Time of Note Date/Time of Note DATE: 10/22/16 TIME: 09:47 Assessment/Plan VTE Prophylaxis VTE Prophylaxis Intervention: other Lines/Catheters IV Catheter Type (from Nrs): PICC Line Central line still needed: Yes Urinary Cath still in place: Yes Reason Cath still needed: urinary retention Assessment/Plan Assessment/Plan 1. Nonoliguric acute kidney injury, etiology secondary to acute tubular necrosis. The patient's renal function stabilized. Continue current treatment. will replete K 2. Hyponatremia, improved. The patient's etiology is likely from free water flushes. Continue to monitor. 3. Hypokalemia. Continue potassium protocol. continue aldactone 4. Volume overload with diffuse anasarca. Continue current diuretic regimen. 5. Sepsis, status post shock. Continue current antibiotic regimen. 6. Anemia. Monitor H and H levels. 7. Mineral bone disorder. Monitor calcium and phosphorus levels. 8. Ventilatory-dependent respiratory failure. The patient's ABGs and vent settings have been reviewed. 9. Perforated viscus. Status post colectomy with colostomy bag. 10. Abdominal abscess. The patient is status post drain placement. 11. Dysphagia. Continue tube feeding. 12. History of ARTIST'S MODEL shunt. 13. Paroxysmal atrial fibrillation, currently in sinus rhythm. 14. Lower extremity deep vein thrombosis. Continue to monitor. 15. Left pleural effusion, status post thoracentesis. Subjective 24 Hr Interval Summary Free Text/Dictation SUBJECTIVE DATA: events reviewed good uop vent settings were also reviewed has hypokalemia d/w nurse no nausea, vomiting, new rash, tachypnea, melena OBJECTIVE DATA: HEENT: Normocephalic. NECK: Supple. HEART: Regular rate. LUNGS: Diminished breath sounds at the base. ABDOMEN: Soft, nontender to palpation. No rebound or guarding. EXTREMITIES: Negative for clubbing, cyanosis. Positive edema. DERMATOLOGIC: No rashes. MUSCULOSKELETAL: No joint effusion. NEUROLOGIC: No change in exam. MEDICATIONS: Reviewed. 1. Nonoliguric acute kidney injury, etiology secondary to acute tubular necrosis. The patient's renal function stabilized. Continue current treatment. Supportive care. Renally dose all meds. 2. Hyponatremia, improved. The patient's etiology is likely from free water flushes. Continue to monitor. 3. Hypokalemia. Continue potassium protocol. 4. Volume overload with diffuse anasarca. Continue current diuretic regimen. 5. Sepsis, status post shock. Continue current antibiotic regimen. 6. Anemia. Monitor H and H levels. 7. Mineral bone disorder. Monitor calcium and phosphorus levels. 8. Ventilatory-dependent respiratory failure. The patient's ABGs and vent settings have been reviewed. 9. Perforated viscus. Status post colectomy with colostomy bag. 10. Abdominal abscess. The patient is status post drain placement. 11. Dysphagia. Continue tube feeding. 12. History of ARTIST'S MODEL shunt. 13. Paroxysmal atrial fibrillation, currently in sinus rhythm. 14. Lower extremity deep vein thrombosis. Continue to monitor. 15. Left pleural effusion, status post thoracentesis. Exam/Review of Systems Vital Signs Vitals Vital Signs Date Time Temp Pulse Resp B/P Pulse Ox O2 Delivery O2 Flow Rate FiO2 10/22/16 08:00 35 10/22/16 08:00 97.9 95 27 134/79 100 Mechanical Ventilator Intake and Output 10/21/16 10/21/16 10/22/16 15:00 23:00 07:00 Intake Total 1240 ml 1330 ml 1080 ml Output Total 870 ml 900 ml 1250 ml Balance 370 ml 430 ml -170 ml Results Result Diagram: 10/21/16 1730 10/22/16 0415 Results 24 hrs Laboratory Tests Test 10/21/16 12:03 10/21/16 17:30 10/22/16 04:15 10/22/16 05:32 White Blood Count 18.7 H Red Blood Count 2.18 L Hemoglobin 6.3 *L 8.3 #L Hematocrit 18.8 L 24.4 #L Mean Corpuscular Volume 86.2 Mean Corpuscular Hemoglobin 28.9 L Mean Corpuscular Hemoglobin Concent 33.5 Red Cell Distribution Width 19.7 H Platelet Count 79 L Mean Platelet Volume Neutrophils % 89.7 H Lymphocytes % 4.4 L Monocytes % 4.1 Eosinophils % 0.4 Basophils % 0.2 Nucleated Red Blood Cells % 0.0 Neutrophils # 16.7 H Lymphocytes # 0.8 Monocytes # 0.8 Eosinophils # 0.1 Basophils # 0.0 Nucleated Red Blood Cells # 0.0 Sodium Level 136 Potassium Level 3.4 L Chloride Level 101 Carbon Dioxide Level 32 H Anion Gap 6 #L Blood Urea Nitrogen 35 H Creatinine 0.68 Glucose Level 132 Calcium Level 6.9 L Phosphorus Level 3.3 Magnesium Level 1.9 Lab Scanned Report BLOOD TRANSFUSION Medications Medications Current Medications Ondansetron HCl (Zofran Inj) 4 mg Q6H PRN IV NAUSEA AND/OR VOMITING Last administered on 09/26/16 09:23; Admin Dose 4 MG; Start 09/16/16 at 00:30 Acetaminophen (Tylenol Tab) 650 mg Q6H PRN PO PAIN LEVEL 1-3 OR FEVER Last administered on 10/08/16 12:47; Admin Dose 650 MG; Start 09/16/16 at 00:30 Polyethylene Glycol 17 gm 17 gm DAILY PO Last administered on 10/21/16 08:47; Admin Dose 17 GM; Start 09/20/16 at 11:00 Norepinephrine/ Dextrose (Levophed/D5W) 500 ml @ 1.87 mls/hr TITRATE IV Last administered on 10/14/16 06:28; Admin Dose 3.75 MLS/HR; Start 09/21/16 at 09:00 Acetaminophen/ Hydrocodone Bitart ([place] (5/325)) 1 tab Q4H PRN PO PAIN LEVEL 4 -7 Last administered on 09/28/16 21:20; Admin Dose 1 TAB; Start 09/21/16 at 15: 00 Acetaminophen/ Hydrocodone Bitart ([place] (5/325)) 2 tab Q4H PRN PO PAIN LEVEL 7 -10 Last administered on 10/21/16 08:49; Admin Dose 2 TAB; Start 09/21/16 at 15 :00 Hydromorphone HCl (Dilaudid) 0.5 mg Q2H PRN IV PAIN Last administered on 09:25; Admin Dose 0.5 MG; Start 09/21/16 at 15:00 Hydromorphone HCl (Dilaudid) 1 mg Q2H PRN IV PAIN Last administered on 23:57; Admin Dose 1 MG; Start 09/21/16 at 15:00 Docusate Sodium (Colace) 100 mg BID PRN PO CONSTIPATION; Start 09/21/16 at 15: 00 Docusate Sodium (Colace Liquid Cup) 100 mg BID NGT Last administered on 08:53; Admin Dose 100 MG; Start 09/22/16 at 21:00 IV Flush (NS 10 ml) 10 ml PRN PRN IV IV PROTOCOL; Start 09/25/16 at 12:00 Spironolactone 50 mg 50 mg DAILY NGT Last administered on 10/21/16 08:49; Admin Dose 50 MG; Start 09/28/16 at 09:00 Dopamine HCl/ Dextrose 250 ml @ 6.053 mls/ hr TITRATE IV Last administered on 09/30/16 04:46; Admin Dose 6.053 MLS/HR; Start 09/29/16 at 11:00 Phenylephrine HCl/ Dextrose (Marcell-Syneph/D5W) 500 ml @ 75 mls/hr TITRATE IV ; Start 09/29/16 at 14:00 Furosemide (Lasix) 20 mg Q6 IV Last administered on 10/22/16 05:48; Admin Dose 20 MG; Start 10/05/16 at 13:00 Lorazepam 0.5 mg 0.5 mg Q6H PRN IV AGITATION/ANXIETY Last administered on 05:10; Admin Dose 0.5 MG; Start 10/05/16 at 23:00 Fentanyl (Sublimaze) 100 ml @ 2.5 mls/hr TITRATE IV Last administered on 06:44; Admin Dose 3 MLS/HR; Start 10/07/16 at 09:30 Pantoprazole (Protonix Iv) 40 mg BID@06,18 IV Last administered on 10/22/16 05 :48; Admin Dose 40 MG; Start 10/09/16 at 18:00 Nystatin 5 ml 5 ml QID PO Last administered on 10/21/16 21:58; Admin Dose 5 ML ; Start 10/19/16 at 13:00 Fluconazole 200 ml @ 100 mls/hr Q12 IVPB Last administered on 10/21/16 21:58 ; Admin Dose 100 MLS/HR; Start 10/19/16 at 21:00 Vancomycin HCl 250 ml @ 125 mls/hr Q24H IVPB Last administered on 10/21/16 14 :56; Admin Dose 125 MLS/HR; Start 10/21/16 at 15:00 Meropenem/Sodium Chloride 50 ml @ 100 mls/hr Q12 IVPB Last administered on 21:58; Admin Dose 100 MLS/HR; Start 10/21/16 at 21:00 Potassium Chloride (KCl 20 MEQ/50 ML SW) 50 ml @ 25 mls/hr Q2H IVPB ; Start at 10:00; Stop 10/22/16 at 13:59; Status UNKATI GONZALEZ DO Oct 22, 2016 09:50
[2016-10-22 09:58] LABS: ABNORMAL IP MESSAGE 1; BASOPHIL # 0.1 10^3/ul (0.0-0.1); BASOPHILS % 0.3 % (0.0-2.0); EOSINOPHILS # 0.1 10^3/ul (0.0-0.5); EOSINOPHILS % 0.6 % (0.0-7.0); HEMATOCRIT 25.4 % (37.0-47.0); HEMOGLOBIN 8.7 g/dl (12.0-16.0); LYMPHOCYTES # 0.7 10^3/ul (0.8-2.9); LYMPHOCYTES % 3.7 % (15.0-51.0); MEAN CORPUSCULAR HEMOGLOBIN 29.2 pg (29.0-33.0); MEAN CORPUSCULAR HGB CONC 34.3 g/dl (32.0-37.0); MEAN CORPUSCULAR VOLUME 85.2 fl (82.0-101.0); MONOCYTE # 0.7 10^3/ul (0.3-0.9); MONOCYTES % 3.9 % (0.0-11.0); NEUTROPHILS % 90.6 % (39.0-77.0); PLATELET COUNT 76 10^3/UL (140-415); RED BLOOD COUNT 2.98 10^6/ul (4.20-5.40); RED CELL DISTRIBUTION WIDTH 17.9 % (11.5-14.5); WHITE BLOOD COUNT 18.1 10^3/ul (4.8-10.8)
[2016-10-22] MEDS: LORAZEPAM 2 MG INJ IV PRN (09:59)
[2016-10-22 10:04] LABS: POSITIVE DIFF @See below
--- NOTE | 2016-10-22 10:17 | CONS ---
Date/Time of Note Date/Time of Note DATE: 10/22/16 TIME: 10:14 Assessment/Plan Assessment/Plan Additional Assessment/Plan Ventilator settings; SIMV of 10, tidal volume 500, PEEP of 5, pressure support 14, 35% FiO2. Assessment and recommendations; 1. Patient admitted with severe sepsis with respiratory failure, failed extubation trial had to be reintubated subsequently requiring tracheostomy. 2. History of recent colostomy. 3. Hydrocephalus status post FILM COMPOSER shunt. 4. Mild thrombocytopenia. 5. Right upper extremity DVT. Patient not a candidate for anticoagulation due to anemia and thrombocytopenia. 6. Poor mental status. 7. Severe physical deconditioning. 8. Gram-positive bacteremia. Continue current supportive care. Prognosis is poor. Consultation Date/Type/Reason Admit Date/Time Sep 15, 2016 at 21:35 Initial Consult Date 09/21/16 Type of Consultation: Pulmonary/critical care 24 HR Interval Summary Free Text/Dictation Patient condition remains tenuous at best. Remains semi-responsive. However has remained hemodynamically stable. General exam; elderly woman, on ventilator via tracheostomy, currently in no distress. Not much responsive. Exam/Review of Systems Vital Signs Vitals Vital Signs Date Time Temp Pulse Resp B/P Pulse Ox O2 Delivery O2 Flow Rate FiO2 10/22/16 08:00 35 10/22/16 08:00 97.9 95 27 134/79 100 Mechanical Ventilator Intake and Output 10/21/16 10/21/16 10/22/16 15:00 23:00 07:00 Intake Total 1240 ml 1330 ml 1080 ml Output Total 870 ml 900 ml 1250 ml Balance 370 ml 430 ml -170 ml Exam HEENT exam; supple neck, no JVD. No lymphadenopathy. Midline trachea. No thyromegaly. Tracheostomy in place. There is a FILM COMPOSER shunt on the right side. Chest exam; diminished but clear breath sounds. S1-S2 audible, no murmurs. Regular rhythm. Next Abdomen exam; soft, nondistended. G-tube in place. Colostomy in place. Bowel sounds audible. Extremity exam; trace edema. LONG TERM ACUTE CARE REGISTERED NURSE exam; patient is awake but not much responsive, however spontaneously moves all 4 extremities. Results Result Diagram: 10/22/16 0830 10/22/16 0415 Results 24 hrs Laboratory Tests Test 10/21/16 12:03 10/21/16 17:30 10/22/16 04:15 10/22/16 05:32 White Blood Count 18.7 H Red Blood Count 2.18 L Hemoglobin 6.3 *L 8.3 #L Hematocrit 18.8 L 24.4 #L Mean Corpuscular Volume 86.2 Mean Corpuscular Hemoglobin 28.9 L Mean Corpuscular Hemoglobin Concent 33.5 Red Cell Distribution Width 19.7 H Platelet Count 79 L Mean Platelet Volume Neutrophils % 89.7 H Lymphocytes % 4.4 L Monocytes % 4.1 Eosinophils % 0.4 Basophils % 0.2 Nucleated Red Blood Cells % 0.0 Neutrophils # 16.7 H Lymphocytes # 0.8 Monocytes # 0.8 Eosinophils # 0.1 Basophils # 0.0 Nucleated Red Blood Cells # 0.0 Sodium Level 136 Potassium Level 3.4 L Chloride Level 101 Carbon Dioxide Level 32 H Anion Gap 6 #L Blood Urea Nitrogen 35 H Creatinine 0.68 Glucose Level 132 Calcium Level 6.9 L Phosphorus Level 3.3 Magnesium Level 1.9 Lab Scanned Report BLOOD TRANSFUSION Test 10/22/16 08:30 White Blood Count 18.1 H Red Blood Count 2.98 #L Hemoglobin 8.7 L Hematocrit 25.4 L Mean Corpuscular Volume 85.2 Mean Corpuscular Hemoglobin 29.2 Mean Corpuscular Hemoglobin Concent 34.3 Red Cell Distribution Width 17.9 H Platelet Count 76 L Mean Platelet Volume Neutrophils % 90.6 H Lymphocytes % 3.7 L Monocytes % 3.9 Eosinophils % 0.6 Basophils % 0.3 Nucleated Red Blood Cells % 0.0 Neutrophils # (Manual) 16.4 H Lymphocytes # 0.7 L Monocytes # 0.7 Eosinophils # 0.1 Basophils # 0.1 Nucleated Red Blood Cells # 0.0 Medications Medications Current Medications Ondansetron HCl (Zofran Inj) 4 mg Q6H PRN IV NAUSEA AND/OR VOMITING Last administered on 09/26/16 09:23; Admin Dose 4 MG; Start 09/16/16 at 00:30 Acetaminophen (Tylenol Tab) 650 mg Q6H PRN PO PAIN LEVEL 1-3 OR FEVER Last administered on 10/08/16 12:47; Admin Dose 650 MG; Start 09/16/16 at 00:30 Polyethylene Glycol 17 gm 17 gm DAILY PO Last administered on 10/22/16 09:47; Admin Dose 17 GM; Start 09/20/16 at 11:00 Norepinephrine/ Dextrose (Levophed/D5W) 500 ml @ 1.87 mls/hr TITRATE IV Last administered on 10/14/16 06:28; Admin Dose 3.75 MLS/HR; Start 09/21/16 at 09:00 Acetaminophen/ Hydrocodone Bitart ([place] (5/325)) 1 tab Q4H PRN PO PAIN LEVEL 4 -7 Last administered on 09/28/16 21:20; Admin Dose 1 TAB; Start 09/21/16 at 15: 00 Acetaminophen/ Hydrocodone Bitart ([place] (5/325)) 2 tab Q4H PRN PO PAIN LEVEL 7 -10 Last administered on 10/21/16 08:49; Admin Dose 2 TAB; Start 09/21/16 at 15 :00 Hydromorphone HCl (Dilaudid) 0.5 mg Q2H PRN IV PAIN Last administered on 09:25; Admin Dose 0.5 MG; Start 09/21/16 at 15:00 Hydromorphone HCl (Dilaudid) 1 mg Q2H PRN IV PAIN Last administered on 23:57; Admin Dose 1 MG; Start 09/21/16 at 15:00 Docusate Sodium (Colace) 100 mg BID PRN PO CONSTIPATION; Start 09/21/16 at 15: 00 Docusate Sodium (Colace Liquid Cup) 100 mg BID NGT Last administered on 09:49; Admin Dose 100 MG; Start 09/22/16 at 21:00 IV Flush (NS 10 ml) 10 ml PRN PRN IV IV PROTOCOL; Start 09/25/16 at 12:00 Spironolactone 50 mg 50 mg DAILY NGT Last administered on 10/22/16 09:49; Admin Dose 50 MG; Start 09/28/16 at 09:00 Dopamine HCl/ Dextrose 250 ml @ 6.053 mls/ hr TITRATE IV Last administered on 09/30/16 04:46; Admin Dose 6.053 MLS/HR; Start 09/29/16 at 11:00 Phenylephrine HCl/ Dextrose (Marcell-Syneph/D5W) 500 ml @ 75 mls/hr TITRATE IV ; Start 09/29/16 at 14:00 Furosemide (Lasix) 20 mg Q6 IV Last administered on 10/22/16 05:48; Admin Dose 20 MG; Start 10/05/16 at 13:00 Lorazepam 0.5 mg 0.5 mg Q6H PRN IV AGITATION/ANXIETY Last administered on 09:59; Admin Dose 0.5 MG; Start 10/05/16 at 23:00 Fentanyl (Sublimaze) 100 ml @ 2.5 mls/hr TITRATE IV Last administered on 06:44; Admin Dose 3 MLS/HR; Start 10/07/16 at 09:30 Pantoprazole (Protonix Iv) 40 mg BID@06,18 IV Last administered on 10/22/16 05 :48; Admin Dose 40 MG; Start 10/09/16 at 18:00 Nystatin 5 ml 5 ml QID PO Last administered on 10/22/16 09:49; Admin Dose 5 ML ; Start 10/19/16 at 13:00 Fluconazole 200 ml @ 100 mls/hr Q12 IVPB Last administered on 10/22/16 09:47 ; Admin Dose 100 MLS/HR; Start 10/19/16 at 21:00 Vancomycin HCl 250 ml @ 125 mls/hr Q24H IVPB Last administered on 10/21/16 14 :56; Admin Dose 125 MLS/HR; Start 10/21/16 at 15:00 Meropenem/Sodium Chloride 50 ml @ 100 mls/hr Q12 IVPB Last administered on 09:49; Admin Dose 100 MLS/HR; Start 10/21/16 at 21:00 Potassium Chloride (KCl 20 MEQ/50 ML SW) 50 ml @ 25 mls/hr Q2H IVPB ; Start at 10:00; Stop 10/22/16 at 13:59 GERARDO JUSTICE Oct 22, 2016 10:16
[2016-10-22] MEDS: POTASSIUM CHLORIDE 50 ML IVPB SCH ×2 (11:06→13:46)
[2016-10-22] MEDS ORDERED: NORepinephrine 8MG/250 ML (PMX 250 ML ONE (11:31)
[2016-10-22 12:04] LABS: AADO2 Arterial 90.4 mmHg (7.0-24.0); Allen Test ACCEPTAB; Arterial Base Excess 6.5 mmol/L (-3.0-3); Arterial COHb 0.3 % (0.0-3.0); Arterial Fraction of Oxyhgb 97.3 % (93.0-99.0); Arterial HCO3 29.9 mmol/L (22.0-26.0); Arterial MetHb 0.4 % (0.0-1.5); Arterial Total Hemglobin 8.3 g/dl (12.0-18.0); Blood Gas PS 14; MODE VENT - SIMV
--- NOTE | 2016-10-22 13:48 | PN ---
DATE: 10/22/2016 SUBJECTIVE DATA: No acute changes per RN's report. Patient is laying comfortably in bed, sleeping. Family member at bedside. No fevers, no vomiting, no diarrhea. Temperature 97.9, pulse 81, respirations 21, blood pressure 110/58, saturation 100 on 35 FiO2. WBC 18.1, H and H 8.7 and 25.4, platelets 76,000; neutrophils 90.6. BUN 35, creatinine 0.68. Repeat blood culture on 10/20/2016 growing gram-positive coccus in clusters. Stool for C. diff is negative. Urine culture revealed no bacteria. INDWELLINGS: Trach, PEG, Shore, PICC line, right-sided intra- abdominal drainage catheter. ANTIMICROBIALS: Vancomycin, meropenem, and fluconazole. PHYSICAL EXAMINATION: GENERAL: This is a chronically ill-appearing, fragile elderly woman who is lying comfortably in bed. HEENT: Head is atraumatic, normocephalic. Sclerae anicteric. Buccal mucosa dry. NECK: Supple. Tracheostomy present. CHEST: Rise symmetrical. Breath sounds diminished at bases. HEART: S1, S2. ABDOMEN: Soft. Bowel sounds present. EXTREMITIES: Without cyanosis. Trace edema. ASSESSMENT: 1. Severe sepsis status post shock. 2. Persistent leukocytosis. 3. Gram-positive cocci bacteremia, rule out contaminant, rule out line sepsis versus secondary to intra-abdominal pathology. 4. Extensive pulmonary infiltrates and cavitary lesions as per CT of the chest. 5. Status post perforated sigmoid colon repair with end colostomy on September 21, 2016, repeated on September 24, 2016. 6. Positive Cryptococcus antigen serology, source unknown, could be pulmonary. CSF cultures were sent for Michaela ink cryptococcosis, results still pending. 7. Status post VALUE STREAM LEADER shunt externalization with ligation. 8. Dysphagia. 9. Acute right upper extremity deep vein thrombosis. 10. Acute on chronic anemia status post blood transfusion yesterday. 11. Status post pneumothorax following thoracentesis requiring chest tube placement, now removed. PLAN: The patient remains hemodynamically stable, on appropriate antimicrobials, pending final cultures. Pending reposition of perihepatic drain. Dictated By: Kathy Lopez NP /rhina/ec /Document#: [id number] MTDD
--- NOTE | 2016-10-22 13:53 | CONS ---
Date/Time of Note Date/Time of Note DATE: 10/22/16 TIME: 13:52 Assessment/Plan Assessment/Plan Chief Complaint/Hosp Course Acute respiratory failure: now status post tracheostomy Acute diastolic heart failure: Secondary to volume resuscitation in setting of low albumin and third spacing. Significant anasarca. Improved with diuresis. Paroxysmal afib: converted on amiodarone. Currently in sinus rhythm Septic shock: intraabdominal abscess, bilateral pneumonia. S/p sigmoid colectomy. Tension pneumothorax: due to thoracentesis. s/p chest tube 09/30 NSTEMI: Trop mildly elevated likely type II in the setting of septic shock. Echo from 09/18 showed normal EF and no significant valvular disease. Repeat trop normalized Diverticulitis complicated by abscess s/p sigmoid colectomy and now colostomy Coagulopathy: ?DIC. Resolved h/o ICH with ALINING INSPECTOR shunt Anemia: status post pRBC transfusion -wean Levophed drip as tolerated -ventilator management per pulmonology Problems: Consultation Date/Type/Reason Admit Date/Time Sep 15, 2016 at 21:35 Initial Consult Date 09/21/16 Type of Consultation: Cardiology 24 HR Interval Summary Free Text/Dictation No significant clinical changes. On low dose Levophed drip. Not very responsive. Detailed Summary Additional Comments Unable to obtain review of systems, patient with altered mental status. Exam/Review of Systems Vital Signs Vitals Vital Signs Date Time Temp Pulse Resp B/P Pulse Ox O2 Delivery O2 Flow Rate FiO2 10/22/16 12:00 85 10/22/16 11:50 24 100 35 10/22/16 11:45 110/58 10/22/16 11:00 Mechanical Ventilator 10/22/16 08:00 97.9 Intake and Output 10/21/16 10/21/16 10/22/16 15:00 23:00 07:00 Intake Total 1240 ml 1330 ml 1080 ml Output Total 870 ml 900 ml 1250 ml Balance 370 ml 430 ml -170 ml Exam Constitutional: NAD HEENT: NCAT Neck: No obvious JVD, tracheostomy Respiratory: diminished breath sounds, scattered crackles, no wheezes; chest tube noted Cardiovascular: Tachycardic, regular, no m/r/g, 2+ pitting BLE edema Gastrointestinal: non-tender, soft, grimaces to palpation Extremities: warm, no cyanosis or clubbing, LE SCDs in place Results Result Diagram: 10/22/16 0830 10/22/16 0415 Results 24 hrs Laboratory Tests Test 10/21/16 17:30 10/22/16 04:15 10/22/16 05:32 10/22/16 08:30 Hemoglobin 8.3 #L 8.7 L Hematocrit 24.4 #L 25.4 L Sodium Level 136 Potassium Level 3.4 L Chloride Level 101 Carbon Dioxide Level 32 H Anion Gap 6 #L Blood Urea Nitrogen 35 H Creatinine 0.68 Glucose Level 132 Calcium Level 6.9 L Phosphorus Level 3.3 Magnesium Level 1.9 Lab Scanned Report BLOOD TRANSFUSION White Blood Count 18.1 H Red Blood Count 2.98 #L Mean Corpuscular Volume 85.2 Mean Corpuscular Hemoglobin 29.2 Mean Corpuscular Hemoglobin Concent 34.3 Red Cell Distribution Width 17.9 H Platelet Count 76 L Mean Platelet Volume Neutrophils % 90.6 H Lymphocytes % 3.7 L Monocytes % 3.9 Eosinophils % 0.6 Basophils % 0.3 Nucleated Red Blood Cells % 0.0 Neutrophils # (Manual) 16.4 H Lymphocytes # 0.7 L Monocytes # 0.7 Eosinophils # 0.1 Basophils # 0.1 Nucleated Red Blood Cells # 0.0 Test 10/22/16 11:18 Blood Gas Specimen Source Blood arterial Arterial Blood Date Drawn 10/22/2016 11:40:08 AM Arterial Blood pH (Temp corrected) 7.516 H Arterial Blood pCO2 (Temp correct) 37.8 Arterial Blood pO2 (Temp corrected) 115.2 H Arterial Blood HCO3 29.9 H Arterial Blood Base Excess 6.5 H Arterial Blood Oxygen Saturation 98.0 Cain Test ACCEPTAB Arterial Blood Gas Puncture Site Left Radial Arterial Blood Carboxyhemoglobin 0.3 Arterial Blood Methemoglobin 0.4 Blood Gas A-a O2 Differential 90.4 H Oxyhemoglobin Percent 97.3 Total Hemoglobin 8.3 L Blood Gas Temperature 37.0 Blood Gas Respiration Rate 10.0 Blood Gas Actual Respiration Rate 18 Blood Gas Modality VENT - SIMV FiO2 35.0 Blood Gas Tidal Volume 500.0 Blood Gas Low PEEP Setting 5.0 Blood Gas Pressure Support 14 Blood Gas Notified Whom JLD Blood Gas Notified Time 10/22/2016 12:04:02 PM Medications Medications Current Medications Ondansetron HCl (Zofran Inj) 4 mg Q6H PRN IV NAUSEA AND/OR VOMITING Last administered on 09/26/16 09:23; Admin Dose 4 MG; Start 09/16/16 at 00:30 Acetaminophen (Tylenol Tab) 650 mg Q6H PRN PO PAIN LEVEL 1-3 OR FEVER Last administered on 10/08/16 12:47; Admin Dose 650 MG; Start 09/16/16 at 00:30 Polyethylene Glycol 17 gm 17 gm DAILY PO Last administered on 10/22/16 09:47; Admin Dose 17 GM; Start 09/20/16 at 11:00 Norepinephrine/ Dextrose (Levophed/D5W) 500 ml @ 1.87 mls/hr TITRATE IV Last administered on 10/22/16 11:39; Admin Dose 3.75 MLS/HR; Start 09/21/16 at 09:00 Acetaminophen/ Hydrocodone Bitart ([place] (5/325)) 1 tab Q4H PRN PO PAIN LEVEL 4 -7 Last administered on 09/28/16 21:20; Admin Dose 1 TAB; Start 09/21/16 at 15: 00 Acetaminophen/ Hydrocodone Bitart ([place] (5/325)) 2 tab Q4H PRN PO PAIN LEVEL 7 -10 Last administered on 10/21/16 08:49; Admin Dose 2 TAB; Start 09/21/16 at 15 :00 Hydromorphone HCl (Dilaudid) 0.5 mg Q2H PRN IV PAIN Last administered on 09:25; Admin Dose 0.5 MG; Start 09/21/16 at 15:00 Hydromorphone HCl (Dilaudid) 1 mg Q2H PRN IV PAIN Last administered on 23:57; Admin Dose 1 MG; Start 09/21/16 at 15:00 Docusate Sodium (Colace) 100 mg BID PRN PO CONSTIPATION; Start 09/21/16 at 15: 00 Docusate Sodium (Colace Liquid Cup) 100 mg BID NGT Last administered on 09:49; Admin Dose 100 MG; Start 09/22/16 at 21:00 IV Flush (NS 10 ml) 10 ml PRN PRN IV IV PROTOCOL; Start 09/25/16 at 12:00 Spironolactone 50 mg 50 mg DAILY NGT Last administered on 10/22/16 09:49; Admin Dose 50 MG; Start 09/28/16 at 09:00 Dopamine HCl/ Dextrose 250 ml @ 6.053 mls/ hr TITRATE IV Last administered on 09/30/16 04:46; Admin Dose 6.053 MLS/HR; Start 09/29/16 at 11:00 Phenylephrine HCl/ Dextrose (Marcell-Syneph/D5W) 500 ml @ 75 mls/hr TITRATE IV ; Start 09/29/16 at 14:00 Furosemide (Lasix) 20 mg Q6 IV Last administered on 10/22/16 05:48; Admin Dose 20 MG; Start 10/05/16 at 13:00 Lorazepam 0.5 mg 0.5 mg Q6H PRN IV AGITATION/ANXIETY Last administered on 09:59; Admin Dose 0.5 MG; Start 10/05/16 at 23:00 Fentanyl (Sublimaze) 100 ml @ 2.5 mls/hr TITRATE IV Last administered on 06:44; Admin Dose 3 MLS/HR; Start 10/07/16 at 09:30 Pantoprazole (Protonix Iv) 40 mg BID@06,18 IV Last administered on 10/22/16 05 :48; Admin Dose 40 MG; Start 10/09/16 at 18:00 Nystatin 5 ml 5 ml QID PO Last administered on 10/22/16 09:49; Admin Dose 5 ML ; Start 10/19/16 at 13:00 Fluconazole 200 ml @ 100 mls/hr Q12 IVPB Last administered on 10/22/16 09:47 ; Admin Dose 100 MLS/HR; Start 10/19/16 at 21:00 Vancomycin HCl 250 ml @ 125 mls/hr Q24H IVPB Last administered on 10/21/16 14 :56; Admin Dose 125 MLS/HR; Start 10/21/16 at 15:00 Meropenem/Sodium Chloride 50 ml @ 100 mls/hr Q12 IVPB Last administered on 09:49; Admin Dose 100 MLS/HR; Start 10/21/16 at 21:00 Potassium Chloride (KCl 20 MEQ/50 ML SW) 50 ml @ 25 mls/hr Q2H IVPB Last administered on 8/15/17at 13:46; Admin Dose 25 MLS/HR; Start 10/22/16 at 10:00; Stop 10/22/16 at 13:59 Miscellaneous Information (*Rx Drug Level Order Reminder*) 1 ONCE ONCE XX ; Start 10/23/16 at 14:00; Stop 10/23/16 at 14:01 AVINASH FERNANDEZ MD Oct 22, 2016 13:53
--- NOTE | 2016-10-22 14:51 | PN ---
Date/Time of Note Date/Time of Note DATE: 10/22/16 TIME: 14:50 Assessment/Plan Lines/Catheters IV Catheter Type (from Nrsg): PICC Line Shore in Place (from Nrsg): Yes Assessment/Plan Chief Complaint/Hosp Course This is a 70-year-old female admitted with a perforated colon and contained abscess underwent a drainage procedure on further colonic procedures patient is currently in the intensive care unit unable to come off the ventilator secondary to multiple medical problems Patient was extubated and had to be input intubated again has been treated for septic shock lactic acidosis peritonitis currently has an end colostomy Helio pouch and has undergone colon resection patient also has a right-sided chest tube for a pneumothorax She was reintubated again Status post tracheostomy Tracheal site clean We will continue pulmonary toilet Trach care CT removed Vent support trach sutures removed Problems: Subjective 24 Hr Interval Summary Constitutional: improved Pain Control: mild Exam/Review of Systems Vital Signs Vitals Vital Signs Date Time Temp Pulse Resp B/P Pulse Ox O2 Delivery O2 Flow Rate FiO2 10/22/16 14:15 85 20 70/43 100 10/22/16 14:00 Mechanical Ventilator 10/22/16 12:00 97.9 10/22/16 11:50 35 Intake and Output 10/21/16 10/21/16 10/22/16 15:00 23:00 07:00 Intake Total 1240 ml 1330 ml 1080 ml Output Total 870 ml 900 ml 1250 ml Balance 370 ml 430 ml -170 ml Exam Eyes: EOMI, nl conjunctiva, nl lids, nl sclera ENMT: mucosa pink and moist, nl external ears & nose, nl lips & teeth, nl nasal mucosa & septum Neck: non-tender, supple Respiratory: clear to auscultation, normal air movement Cardiovascular: nl pulses, regular rate and rhythm Results Result Diagram: 10/22/16 0830 10/22/16 0415 GIL PINEDA MD Oct 22, 2016 14:51
[2016-10-22] MEDS: VANCOMYCIN 1 GM in NS 250 ML IVPB SCH (15:08)
--- NOTE | 2016-10-22 15:33 | PN ---
Date/Time of Note Date/Time of Note DATE: 10/22/16 TIME: 15:32 Assessment/Plan VTE Prophylaxis VTE Prophylaxis Intervention: SCD's Assessment/Plan Chief Complaint/Hosp Course 70 yo F with h/o hydrocephalus with previous VPS admitted for sigmoid abscess. hospital stay cb sepsis, colon perforation with multiple abd fluid collections , also recurrent respiratory failure warranting trach, pleural effusion with thora c/b by PTX (chest tube removed) 1. 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 Ventilator dependent respiratory failure: sp trach 3 Left pleural effusion: Status post thoracentesis, complicated with pneumothorax status post placement of a chest tube, removal of chest tube per pulmonology CHEST TUBE PULLED 8.11 4. History of ICH, s/p VPS placement, with subsequent externalization of drain : Neurosurg on board -ID following closely. 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 ID narrowed antifungal to diflucan VPS ligated 8.11 BY NS 5. Paroxysmal A. fib: Now in sinus rhythm status post amiodarone. Cardiology on board 6. Acute renal insufficiency: Resolved. 7. s/p NSTEMI: Likely secondary to septic shock. 8. Volume overload state: HOLD DIURESIS GIVEN LOW BPS 9. Anemia: unclear etio of acute on chronic. 10. Dysphagia Status post PEG tube placement 11. RUE DVT: hold lovenox given anemia Prophylaxis: SCDs Problems: Subjective 24 Hr Interval Summary Subjective hx not possible: pt non-verbal Exam/Review of Systems Vital Signs Vitals Vital Signs Date Time Temp Pulse Resp B/P Pulse Ox O2 Delivery O2 Flow Rate FiO2 10/22/16 14:15 85 20 70/43 100 10/22/16 14:00 Mechanical Ventilator 10/22/16 12:00 97.9 10/22/16 11:50 35 Intake and Output 10/21/16 10/21/16 10/22/16 15:00 23:00 07:00 Intake Total 1240 ml 1330 ml 1080 ml Output Total 870 ml 900 ml 1250 ml Balance 370 ml 430 ml -170 ml Exam Constitutional: non-verbal Respiratory: clear to auscultation Cardiovascular: regular rate and rhythm Gastrointestinal: soft, No distended Musculoskeletal: nl extremities to inspection Results Result Diagram: 10/22/16 0830 10/22/16 0415 Results 24 hrs Laboratory Tests Test 10/21/16 17:30 10/22/16 04:15 10/22/16 05:32 10/22/16 08:30 Hemoglobin 8.3 #L 8.7 L Hematocrit 24.4 #L 25.4 L Sodium Level 136 Potassium Level 3.4 L Chloride Level 101 Carbon Dioxide Level 32 H Anion Gap 6 #L Blood Urea Nitrogen 35 H Creatinine 0.68 Glucose Level 132 Calcium Level 6.9 L Phosphorus Level 3.3 Magnesium Level 1.9 Lab Scanned Report BLOOD TRANSFUSION White Blood Count 18.1 H Red Blood Count 2.98 #L Mean Corpuscular Volume 85.2 Mean Corpuscular Hemoglobin 29.2 Mean Corpuscular Hemoglobin Concent 34.3 Red Cell Distribution Width 17.9 H Platelet Count 76 L Mean Platelet Volume Neutrophils % 90.6 H Lymphocytes % 3.7 L Monocytes % 3.9 Eosinophils % 0.6 Basophils % 0.3 Nucleated Red Blood Cells % 0.0 Neutrophils # (Manual) 16.4 H Lymphocytes # 0.7 L Monocytes # 0.7 Eosinophils # 0.1 Basophils # 0.1 Nucleated Red Blood Cells # 0.0 Test 10/22/16 11:18 Blood Gas Specimen Source Blood arterial Arterial Blood Date Drawn 10/22/2016 11:40:08 AM Arterial Blood pH (Temp corrected) 7.516 H Arterial Blood pCO2 (Temp correct) 37.8 Arterial Blood pO2 (Temp corrected) 115.2 H Arterial Blood HCO3 29.9 H Arterial Blood Base Excess 6.5 H Arterial Blood Oxygen Saturation 98.0 Cain Test ACCEPTAB Arterial Blood Gas Puncture Site Left Radial Arterial Blood Carboxyhemoglobin 0.3 Arterial Blood Methemoglobin 0.4 Blood Gas A-a O2 Differential 90.4 H Oxyhemoglobin Percent 97.3 Total Hemoglobin 8.3 L Blood Gas Temperature 37.0 Blood Gas Respiration Rate 10.0 Blood Gas Actual Respiration Rate 18 Blood Gas Modality VENT - SIMV FiO2 35.0 Blood Gas Tidal Volume 500.0 Blood Gas Low PEEP Setting 5.0 Blood Gas Pressure Support 14 Blood Gas Notified Whom JLD Blood Gas Notified Time 10/22/2016 12:04:02 PM Medications Medications Current Medications Ondansetron HCl (Zofran Inj) 4 mg Q6H PRN IV NAUSEA AND/OR VOMITING Last administered on 09/26/16 09:23; Admin Dose 4 MG; Start 09/16/16 at 00:30 Acetaminophen (Tylenol Tab) 650 mg Q6H PRN PO PAIN LEVEL 1-3 OR FEVER Last administered on 10/08/16 12:47; Admin Dose 650 MG; Start 09/16/16 at 00:30 Polyethylene Glycol 17 gm 17 gm DAILY PO Last administered on 10/22/16 09:47; Admin Dose 17 GM; Start 09/20/16 at 11:00 Norepinephrine/ Dextrose (Levophed/D5W) 500 ml @ 1.87 mls/hr TITRATE IV Last administered on 10/22/16 14:32; Admin Dose 3.75 MLS/HR; Start 09/21/16 at 09:00 Acetaminophen/ Hydrocodone Bitart ([place] (5/325)) 1 tab Q4H PRN PO PAIN LEVEL 4 -7 Last administered on 09/28/16 21:20; Admin Dose 1 TAB; Start 09/21/16 at 15: 00 Acetaminophen/ Hydrocodone Bitart ([place] (5/325)) 2 tab Q4H PRN PO PAIN LEVEL 7 -10 Last administered on 10/21/16 08:49; Admin Dose 2 TAB; Start 09/21/16 at 15 :00 Hydromorphone HCl (Dilaudid) 0.5 mg Q2H PRN IV PAIN Last administered on 09:25; Admin Dose 0.5 MG; Start 09/21/16 at 15:00 Hydromorphone HCl (Dilaudid) 1 mg Q2H PRN IV PAIN Last administered on 23:57; Admin Dose 1 MG; Start 09/21/16 at 15:00 Docusate Sodium (Colace) 100 mg BID PRN PO CONSTIPATION; Start 09/21/16 at 15: 00 Docusate Sodium (Colace Liquid Cup) 100 mg BID NGT Last administered on 09:49; Admin Dose 100 MG; Start 09/22/16 at 21:00 IV Flush (NS 10 ml) 10 ml PRN PRN IV IV PROTOCOL; Start 09/25/16 at 12:00 Spironolactone 50 mg 50 mg DAILY NGT Last administered on 10/22/16 09:49; Admin Dose 50 MG; Start 09/28/16 at 09:00 Dopamine HCl/ Dextrose 250 ml @ 6.053 mls/ hr TITRATE IV Last administered on 09/30/16 04:46; Admin Dose 6.053 MLS/HR; Start 09/29/16 at 11:00 Phenylephrine HCl/ Dextrose (Marcell-Syneph/D5W) 500 ml @ 75 mls/hr TITRATE IV ; Start 09/29/16 at 14:00 Furosemide (Lasix) 20 mg Q6 IV Last administered on 10/22/16 05:48; Admin Dose 20 MG; Start 10/05/16 at 13:00 Lorazepam 0.5 mg 0.5 mg Q6H PRN IV AGITATION/ANXIETY Last administered on 09:59; Admin Dose 0.5 MG; Start 10/05/16 at 23:00 Fentanyl (Sublimaze) 100 ml @ 2.5 mls/hr TITRATE IV Last administered on 06:44; Admin Dose 3 MLS/HR; Start 10/07/16 at 09:30 Pantoprazole (Protonix Iv) 40 mg BID@06,18 IV Last administered on 10/22/16 05 :48; Admin Dose 40 MG; Start 10/09/16 at 18:00 Nystatin 5 ml 5 ml QID PO Last administered on 10/22/16 13:52; Admin Dose 5 ML ; Start 10/19/16 at 13:00 Fluconazole 200 ml @ 100 mls/hr Q12 IVPB Last administered on 10/22/16 09:47 ; Admin Dose 100 MLS/HR; Start 10/19/16 at 21:00 Vancomycin HCl 250 ml @ 125 mls/hr Q24H IVPB Last administered on 10/22/16 15 :08; Admin Dose 125 MLS/HR; Start 10/21/16 at 15:00 Meropenem/Sodium Chloride (Merrem 1 Gm/50 ml (Pmx)) 50 ml @ 100 mls/hr Q12 IVPB Last administered on 10/22/16 09:49; Admin Dose 100 MLS/HR; Start at 21:00 Miscellaneous Information (*Rx Drug Level Order Reminder*) 1 ONCE ONCE XX ; Start 10/23/16 at 14:00; Stop 10/23/16 at 14:01 DALE RODARTE Oct 22, 2016 15:33
[2016-10-22] MEDS: HYDROmorphONE 1 MG/ML SYG IV PRN (17:53)
[2016-10-23] VITALS (96 sets, daily range): BP systolic 71–143; BP diastolic 46–91; PULSE 56–109; RESP 14–31
[2016-10-23] MEDS: FUROSEMIDE 20 MG INJ IV SCH ×4 (01:02→18:19)
[2016-10-23] MEDS: ALBUTEROL 18 GM INHALER INH SCH ×6 (01:15→21:57)
[2016-10-23] MEDS: IPRATROPIUM (HFA) 12.9 GM INHALER INH SCH ×6 (01:15→21:57)
[2016-10-23] MEDS: PANTOPRAZOLE 40 MG INJ IV SCH (05:15)
[2016-10-23 05:50] LABS: ABNORMAL IP MESSAGE 1; BASOPHILS % 0.3 % (0.0-2.0); EOSINOPHILS # 0.1 10^3/ul (0.0-0.5); EOSINOPHILS % 0.9 % (0.0-7.0); HEMATOCRIT 24.4 % (37.0-47.0); HEMOGLOBIN 8.2 g/dl (12.0-16.0); LYMPHOCYTES # 0.7 10^3/ul (0.8-2.9); LYMPHOCYTES % 4.5 % (15.0-51.0); MEAN CORPUSCULAR HEMOGLOBIN 28.8 pg (29.0-33.0); MEAN CORPUSCULAR HGB CONC 33.6 g/dl (32.0-37.0); MEAN CORPUSCULAR VOLUME 85.6 fl (82.0-101.0); MONOCYTE # 0.7 10^3/ul (0.3-0.9); MONOCYTES % 4.4 % (0.0-11.0); NEUTROPHILS % 88.7 % (39.0-77.0); PLATELET COUNT 79 10^3/UL (140-415); RED BLOOD COUNT 2.85 10^6/ul (4.20-5.40); RED CELL DISTRIBUTION WIDTH 18.3 % (11.5-14.5); WHITE BLOOD COUNT 15.5 10^3/ul (4.8-10.8)
[2016-10-23 05:55] LABS: POSITIVE DIFF @See below
[2016-10-23 06:19] LABS: CREATININE 0.58 mg/dl (0.44-1.00); POTASSIUM 3.8 mmol/L (3.5-5.1)
[2016-10-23] MEDS: BALSAM PERU/CASTOR OIL 60 GM TUBE TOP SCH (08:00)
[2016-10-23] MEDS: LORAZEPAM 2 MG INJ IV PRN (08:00)
[2016-10-23] MEDS: SPIRONOLACTONE 50 MG TAB NGT SCH (08:00)
[2016-10-23] MEDS: POLYETHYLENE GLYCOL 17 GM PACKET PO SCH (08:00)
[2016-10-23] MEDS: DOCUSATE SODIUM 10 MG/ML (10ML CUP) NGT SCH ×2 (08:00→21:02)
[2016-10-23] MEDS: NYSTATIN SUSP 5 ML CUP PO SCH ×4 (08:00→21:01)
--- NOTE | 2016-10-23 08:59 | CONS ---
Date/Time of Note Date/Time of Note DATE: 10/23/16 TIME: 08:55 Assessment/Plan Assessment/Plan Additional Assessment/Plan There has been no change in overall clinical condition, Dr Maldonado is seeing her daily and is staying in close contact with ex- and patient's next of kin who lives out of state. Plan as outlined nutrition, trach, when stable out of ICU and consideration of [place] for further respiratory and nutritional benefits if okay with . Consultation Date/Type/Reason Admit Date/Time Sep 15, 2016 at 21:35 Initial Consult Date 09/21/16 Type of Consultation: Cardiology Exam/Review of Systems Vital Signs Vitals Vital Signs Date Time Temp Pulse Resp B/P Pulse Ox O2 Delivery O2 Flow Rate FiO2 10/23/16 08:15 103 14 116/62 97 10/23/16 08:00 10/23/16 07:30 35 10/23/16 05:00 Mechanical Ventilator Intake and Output 10/22/16 10/22/16 10/23/16 15:00 23:00 07:00 Intake Total 1113.12 ml 1067.50 ml 596.85 ml Output Total 920 ml 880 ml 700 ml Balance 193.12 ml 187.50 ml -103.15 ml Results Result Diagram: 10/23/16 0420 10/23/16 0420 Results 24 hrs Laboratory Tests Test 10/22/16 11:18 10/23/16 04:20 Blood Gas Specimen Source Blood arterial Arterial Blood Date Drawn 10/22/2016 11:40:08 AM Arterial Blood pH (Temp corrected) 7.516 H Arterial Blood pCO2 (Temp correct) 37.8 Arterial Blood pO2 (Temp corrected) 115.2 H Arterial Blood HCO3 29.9 H Arterial Blood Base Excess 6.5 H Arterial Blood Oxygen Saturation 98.0 Cain Test ACCEPTAB Arterial Blood Gas Puncture Site Left Radial Arterial Blood Carboxyhemoglobin 0.3 Arterial Blood Methemoglobin 0.4 Blood Gas A-a O2 Differential 90.4 H Oxyhemoglobin Percent 97.3 Total Hemoglobin 8.3 L Blood Gas Temperature 37.0 Blood Gas Respiration Rate 10.0 Blood Gas Actual Respiration Rate 18 Blood Gas Modality VENT - SIMV FiO2 35.0 Blood Gas Tidal Volume 500.0 Blood Gas Low PEEP Setting 5.0 Blood Gas Pressure Support 14 Blood Gas Notified Whom JLD Blood Gas Notified Time 10/22/2016 12:04:02 PM White Blood Count 15.5 H Red Blood Count 2.85 L Hemoglobin 8.2 L Hematocrit 24.4 L Mean Corpuscular Volume 85.6 Mean Corpuscular Hemoglobin 28.8 L Mean Corpuscular Hemoglobin Concent 33.6 Red Cell Distribution Width 18.3 H Platelet Count 79 L Mean Platelet Volume Neutrophils % 88.7 H Lymphocytes % 4.5 L Monocytes % 4.4 Eosinophils % 0.9 Basophils % 0.3 Nucleated Red Blood Cells % 0.0 Neutrophils # (Manual) 13.7 H Lymphocytes # 0.7 L Monocytes # 0.7 Eosinophils # 0.1 Basophils # 0.0 Nucleated Red Blood Cells # 0.0 Sodium Level 136 Potassium Level 3.8 Chloride Level 101 Carbon Dioxide Level 32 H Anion Gap 7 L Blood Urea Nitrogen 32 H Creatinine 0.58 Glucose Level 97 Calcium Level 7.0 L Medications Medications Current Medications Ondansetron HCl (Zofran Inj) 4 mg Q6H PRN IV NAUSEA AND/OR VOMITING Last administered on 09/26/16 09:23; Admin Dose 4 MG; Start 09/16/16 at 00:30 Acetaminophen (Tylenol Tab) 650 mg Q6H PRN PO PAIN LEVEL 1-3 OR FEVER Last administered on 10/08/16 12:47; Admin Dose 650 MG; Start 09/16/16 at 00:30 Polyethylene Glycol 17 gm 17 gm DAILY PO Last administered on 10/23/16 08:00; Admin Dose 17 GM; Start 09/20/16 at 11:00 Norepinephrine/ Dextrose (Levophed/D5W) 500 ml @ 1.87 mls/hr TITRATE IV Last administered on 10/22/16 14:32; Admin Dose 3.75 MLS/HR; Start 09/21/16 at 09:00 Acetaminophen/ Hydrocodone Bitart ([place] (5/325)) 1 tab Q4H PRN PO PAIN LEVEL 4 -7 Last administered on 09/28/16 21:20; Admin Dose 1 TAB; Start 09/21/16 at 15: 00 Acetaminophen/ Hydrocodone Bitart ([place] (5/325)) 2 tab Q4H PRN PO PAIN LEVEL 7 -10 Last administered on 10/21/16 08:49; Admin Dose 2 TAB; Start 09/21/16 at 15 :00 Hydromorphone HCl (Dilaudid) 0.5 mg Q2H PRN IV PAIN Last administered on 09:25; Admin Dose 0.5 MG; Start 09/21/16 at 15:00 Hydromorphone HCl (Dilaudid) 1 mg Q2H PRN IV PAIN Last administered on 17:53; Admin Dose 1 MG; Start 09/21/16 at 15:00 Docusate Sodium (Colace) 100 mg BID PRN PO CONSTIPATION; Start 09/21/16 at 15: 00 Docusate Sodium (Colace Liquid Cup) 100 mg BID NGT Last administered on 08:00; Admin Dose 100 MG; Start 09/22/16 at 21:00 IV Flush (NS 10 ml) 10 ml PRN PRN IV IV PROTOCOL; Start 09/25/16 at 12:00 Spironolactone 50 mg 50 mg DAILY NGT Last administered on 10/23/16 08:00; Admin Dose 50 MG; Start 09/28/16 at 09:00 Dopamine HCl/ Dextrose 250 ml @ 6.053 mls/ hr TITRATE IV Last administered on 09/30/16 04:46; Admin Dose 6.053 MLS/HR; Start 09/29/16 at 11:00 Phenylephrine HCl/ Dextrose (Marcell-Syneph/D5W) 500 ml @ 75 mls/hr TITRATE IV ; Start 09/29/16 at 14:00 Furosemide (Lasix) 20 mg Q6 IV Last administered on 10/23/16 05:15; Admin Dose 20 MG; Start 10/05/16 at 13:00 Lorazepam 0.5 mg 0.5 mg Q6H PRN IV AGITATION/ANXIETY Last administered on 08:00; Admin Dose 0.5 MG; Start 10/05/16 at 23:00 Fentanyl (Sublimaze) 100 ml @ 2.5 mls/hr TITRATE IV Last administered on 06:44; Admin Dose 3 MLS/HR; Start 10/07/16 at 09:30 Pantoprazole (Protonix Iv) 40 mg BID@06,18 IV Last administered on 10/23/16 05 :15; Admin Dose 40 MG; Start 10/09/16 at 18:00 Nystatin 5 ml 5 ml QID PO Last administered on 10/23/16 08:00; Admin Dose 5 ML ; Start 10/19/16 at 13:00 Fluconazole 200 ml @ 100 mls/hr Q12 IVPB Last administered on 10/22/16 21:40 ; Admin Dose 100 MLS/HR; Start 10/19/16 at 21:00 Vancomycin HCl 250 ml @ 125 mls/hr Q24H IVPB Last administered on 10/22/16 15 :08; Admin Dose 125 MLS/HR; Start 10/21/16 at 15:00 Meropenem/Sodium Chloride (Merrem 1 Gm/50 ml (Pmx)) 50 ml @ 100 mls/hr Q12 IVPB Last administered on 10/22/16 21:41; Admin Dose 100 MLS/HR; Start at 21:00 Miscellaneous Information (*Rx Drug Level Order Reminder*) 1 ONCE ONCE XX ; Start 10/23/16 at 14:00; Stop 10/23/16 at 14:01 YANETH VIDAL Oct 23, 2016 08:59
[2016-10-23] MEDS: FLUCONAZOLE 400 MG/NS (PMX) 200 ML IVPB SCH ×2 (09:01→21:01)
[2016-10-23] MEDS: MEROPENEM 1 GM/50ML(PMX) 50 ML IVPB SCH ×2 (09:03→21:01)
--- NOTE | 2016-10-23 09:47 | PN ---
Date/Time of Note Date/Time of Note DATE: 10/23/16 TIME: 09:46 Assessment/Plan VTE Prophylaxis VTE Prophylaxis Intervention: other Lines/Catheters IV Catheter Type (from Nrs): PICC Line Central line still needed: Yes Urinary Cath still in place: Yes Reason Cath still needed: urinary retention Assessment/Plan Chief Complaint/Hosp Course 1. Nonoliguric acute kidney injury, etiology secondary to acute tubular necrosis. The patient's renal function stabilized. Continue current treatment. hypokalemia also corrected 2. Hyponatremia, improved. The patient's etiology is likely from free water flushes. Continue to monitor. 3. Hypokalemia. continue aldactone 4. Volume overload with diffuse anasarca. Continue current diuretic regimen. 5. Sepsis, status post shock. Continue current antibiotic regimen. 6. Anemia. Monitor H and H levels. 7. Mineral bone disorder. Monitor calcium and phosphorus levels. 8. Ventilatory-dependent respiratory failure. The patient's ABGs and vent settings have been reviewed. 9. Perforated viscus. Status post colectomy with colostomy bag. 10. Abdominal abscess. The patient is status post drain placement. 11. Dysphagia. Continue tube feeding. 12. History of BED BUG EXTERMINATOR shunt. 13. Paroxysmal atrial fibrillation, currently in sinus rhythm. 14. Lower extremity deep vein thrombosis. Continue to monitor. 15. Left pleural effusion, status post thoracentesis. will follow prn thanks renal follow up SUBJECTIVE DATA: events reviewed good uop vent settings were also reviewed has hypokalemia d/w nurse no nausea, vomiting, new rash, tachypnea, melena OBJECTIVE DATA: HEENT: Normocephalic. NECK: Supple. HEART: Regular rate. LUNGS: Diminished breath sounds at the base. ABDOMEN: Soft, nontender to palpation. No rebound or guarding. EXTREMITIES: Negative for clubbing, cyanosis. Positive edema. DERMATOLOGIC: No rashes. MUSCULOSKELETAL: No joint effusion. NEUROLOGIC: No change in exam. Problems: Exam/Review of Systems Vital Signs Vitals Vital Signs Date Time Temp Pulse Resp B/P Pulse Ox O2 Delivery O2 Flow Rate FiO2 10/23/16 09:00 101 18 95/58 99 Mechanical Ventilator Trach Collar 10/23/16 08:30 98.3 10/23/16 08:15 30 Intake and Output 10/22/16 10/22/16 10/23/16 15:00 23:00 07:00 Intake Total 1113.12 ml 1067.50 ml 598.72 ml Output Total 920 ml 880 ml 700 ml Balance 193.12 ml 187.50 ml -101.28 ml Results Result Diagram: 10/23/16 0420 10/23/16 0420 Results 24 hrs Laboratory Tests Test 10/22/16 11:18 10/23/16 04:20 Blood Gas Specimen Source Blood arterial Arterial Blood Date Drawn 10/22/2016 11:40:08 AM Arterial Blood pH (Temp corrected) 7.516 H Arterial Blood pCO2 (Temp correct) 37.8 Arterial Blood pO2 (Temp corrected) 115.2 H Arterial Blood HCO3 29.9 H Arterial Blood Base Excess 6.5 H Arterial Blood Oxygen Saturation 98.0 Cain Test ACCEPTAB Arterial Blood Gas Puncture Site Left Radial Arterial Blood Carboxyhemoglobin 0.3 Arterial Blood Methemoglobin 0.4 Blood Gas A-a O2 Differential 90.4 H Oxyhemoglobin Percent 97.3 Total Hemoglobin 8.3 L Blood Gas Temperature 37.0 Blood Gas Respiration Rate 10.0 Blood Gas Actual Respiration Rate 18 Blood Gas Modality VENT - SIMV FiO2 35.0 Blood Gas Tidal Volume 500.0 Blood Gas Low PEEP Setting 5.0 Blood Gas Pressure Support 14 Blood Gas Notified Whom JLD Blood Gas Notified Time 10/22/2016 12:04:02 PM White Blood Count 15.5 H Red Blood Count 2.85 L Hemoglobin 8.2 L Hematocrit 24.4 L Mean Corpuscular Volume 85.6 Mean Corpuscular Hemoglobin 28.8 L Mean Corpuscular Hemoglobin Concent 33.6 Red Cell Distribution Width 18.3 H Platelet Count 79 L Mean Platelet Volume Neutrophils % 88.7 H Lymphocytes % 4.5 L Monocytes % 4.4 Eosinophils % 0.9 Basophils % 0.3 Nucleated Red Blood Cells % 0.0 Neutrophils # (Manual) 13.7 H Lymphocytes # 0.7 L Monocytes # 0.7 Eosinophils # 0.1 Basophils # 0.0 Nucleated Red Blood Cells # 0.0 Sodium Level 136 Potassium Level 3.8 Chloride Level 101 Carbon Dioxide Level 32 H Anion Gap 7 L Blood Urea Nitrogen 32 H Creatinine 0.58 Glucose Level 97 Calcium Level 7.0 L Medications Medications Current Medications Ondansetron HCl (Zofran Inj) 4 mg Q6H PRN IV NAUSEA AND/OR VOMITING Last administered on 09/26/16 09:23; Admin Dose 4 MG; Start 09/16/16 at 00:30 Acetaminophen (Tylenol Tab) 650 mg Q6H PRN PO PAIN LEVEL 1-3 OR FEVER Last administered on 10/08/16 12:47; Admin Dose 650 MG; Start 09/16/16 at 00:30 Polyethylene Glycol 17 gm 17 gm DAILY PO Last administered on 10/23/16 08:00; Admin Dose 17 GM; Start 09/20/16 at 11:00 Norepinephrine/ Dextrose (Levophed/D5W) 500 ml @ 1.87 mls/hr TITRATE IV Last administered on 10/22/16 14:32; Admin Dose 3.75 MLS/HR; Start 09/21/16 at 09:00 Acetaminophen/ Hydrocodone Bitart ([place] (5/325)) 1 tab Q4H PRN PO PAIN LEVEL 4 -7 Last administered on 09/28/16 21:20; Admin Dose 1 TAB; Start 09/21/16 at 15: 00 Acetaminophen/ Hydrocodone Bitart ([place] (5/325)) 2 tab Q4H PRN PO PAIN LEVEL 7 -10 Last administered on 10/21/16 08:49; Admin Dose 2 TAB; Start 09/21/16 at 15 :00 Hydromorphone HCl (Dilaudid) 0.5 mg Q2H PRN IV PAIN Last administered on 09:25; Admin Dose 0.5 MG; Start 09/21/16 at 15:00 Hydromorphone HCl (Dilaudid) 1 mg Q2H PRN IV PAIN Last administered on 17:53; Admin Dose 1 MG; Start 09/21/16 at 15:00 Docusate Sodium (Colace) 100 mg BID PRN PO CONSTIPATION; Start 09/21/16 at 15: 00 Docusate Sodium (Colace Liquid Cup) 100 mg BID NGT Last administered on 08:00; Admin Dose 100 MG; Start 09/22/16 at 21:00 IV Flush (NS 10 ml) 10 ml PRN PRN IV IV PROTOCOL; Start 09/25/16 at 12:00 Spironolactone 50 mg 50 mg DAILY NGT Last administered on 10/23/16 08:00; Admin Dose 50 MG; Start 09/28/16 at 09:00 Dopamine HCl/ Dextrose 250 ml @ 6.053 mls/ hr TITRATE IV Last administered on 09/30/16 04:46; Admin Dose 6.053 MLS/HR; Start 09/29/16 at 11:00 Phenylephrine HCl/ Dextrose (Marcell-Syneph/D5W) 500 ml @ 75 mls/hr TITRATE IV ; Start 09/29/16 at 14:00 Furosemide (Lasix) 20 mg Q6 IV Last administered on 10/23/16 05:15; Admin Dose 20 MG; Start 10/05/16 at 13:00 Lorazepam 0.5 mg 0.5 mg Q6H PRN IV AGITATION/ANXIETY Last administered on 08:00; Admin Dose 0.5 MG; Start 10/05/16 at 23:00 Fentanyl (Sublimaze) 100 ml @ 2.5 mls/hr TITRATE IV Last administered on 06:44; Admin Dose 3 MLS/HR; Start 10/07/16 at 09:30 Pantoprazole (Protonix Iv) 40 mg BID@06,18 IV Last administered on 10/23/16 05 :15; Admin Dose 40 MG; Start 10/09/16 at 18:00 Nystatin 5 ml 5 ml QID PO Last administered on 10/23/16 08:00; Admin Dose 5 ML ; Start 10/19/16 at 13:00 Fluconazole 200 ml @ 100 mls/hr Q12 IVPB Last administered on 10/23/16 09:01 ; Admin Dose 100 MLS/HR; Start 10/19/16 at 21:00 Vancomycin HCl 250 ml @ 125 mls/hr Q24H IVPB Last administered on 10/22/16 15 :08; Admin Dose 125 MLS/HR; Start 10/21/16 at 15:00 Meropenem/Sodium Chloride (Merrem 1 Gm/50 ml (Pmx)) 50 ml @ 100 mls/hr Q12 IVPB Last administered on 10/23/16 09:03; Admin Dose 100 MLS/HR; Start at 21:00 Miscellaneous Information (*Rx Drug Level Order Reminder*) 1 ONCE ONCE XX ; Start 10/23/16 at 14:00; Stop 10/23/16 at 14:01 KATI TREVIZO DO Oct 23, 2016 09:47
[2016-10-23] MEDS ORDERED: DIPHENHYDRAMINE 50 MG INJ IV PRN (10:30)
[2016-10-23] MEDS: POTASSIUM CHLORIDE 50 ML IVPB PRN (10:49)
--- NOTE | 2016-10-23 11:20 | CONS ---
Date/Time of Note Date/Time of Note DATE: 10/23/16 TIME: 11:18 Consult Date/Type/Reason Admit Date/Time Sep 15, 2016 at 21:35 Initial Consult Date 09/21/16 Type of Consultation: Pulmonary Subjective Looks comfortable this morning agitated. Requiring vasopressors overnight. Objective Vital Signs Date Time Temp Pulse Resp B/P Pulse Ox O2 Delivery O2 Flow Rate FiO2 10/23/16 09:31 101 20 100 30 10/23/16 09:00 95/58 Mechanical Ventilator Trach Collar 10/23/16 08:30 98.3 Intake and Output 10/22/16 10/22/16 10/23/16 15:00 23:00 07:00 Intake Total 1113.12 ml 1067.50 ml 598.72 ml Output Total 920 ml 880 ml 950 ml Balance 193.12 ml 187.50 ml -351.28 ml Exam PHYSICAL EXAMINATION GENERAL: Elderly lady on mechanical ventilation via tracheostomy VITAL SIGNS: see below. HEENT: Pupils equal, round, and reactive to light. Tracheostomy site clean and intact. CARDIAC: S1, S2, systolic ejection murmur. CHEST: Diminished air entry bilaterally. ABDOMEN: Mildly distended. Diminished bowel sounds. EXTREMITIES: No cyanosis, clubbing edema +1 NEUROLOGIC: Generalized weakness Results/Medications Result Diagram: 10/23/16 0420 10/23/16 0420 Results 24 hrs Laboratory Tests Test 10/23/16 04:20 White Blood Count 15.5 H Red Blood Count 2.85 L Hemoglobin 8.2 L Hematocrit 24.4 L Mean Corpuscular Volume 85.6 Mean Corpuscular Hemoglobin 28.8 L Mean Corpuscular Hemoglobin Concent 33.6 Red Cell Distribution Width 18.3 H Platelet Count 79 L Mean Platelet Volume Neutrophils % 88.7 H Lymphocytes % 4.5 L Monocytes % 4.4 Eosinophils % 0.9 Basophils % 0.3 Nucleated Red Blood Cells % 0.0 Neutrophils # (Manual) 13.7 H Lymphocytes # 0.7 L Monocytes # 0.7 Eosinophils # 0.1 Basophils # 0.0 Nucleated Red Blood Cells # 0.0 Sodium Level 136 Potassium Level 3.8 Chloride Level 101 Carbon Dioxide Level 32 H Anion Gap 7 L Blood Urea Nitrogen 32 H Creatinine 0.58 Glucose Level 97 Calcium Level 7.0 L Medications Current Medications Ondansetron HCl (Zofran Inj) 4 mg Q6H PRN IV NAUSEA AND/OR VOMITING Last administered on 09/26/16 09:23; Admin Dose 4 MG; Start 09/16/16 at 00:30 Acetaminophen (Tylenol Tab) 650 mg Q6H PRN PO PAIN LEVEL 1-3 OR FEVER Last administered on 10/08/16 12:47; Admin Dose 650 MG; Start 09/16/16 at 00:30 Polyethylene Glycol 17 gm 17 gm DAILY PO Last administered on 10/23/16 08:00; Admin Dose 17 GM; Start 09/20/16 at 11:00 Norepinephrine/ Dextrose (Levophed/D5W) 500 ml @ 1.87 mls/hr TITRATE IV Last administered on 10/22/16 14:32; Admin Dose 3.75 MLS/HR; Start 09/21/16 at 09:00 Acetaminophen/ Hydrocodone Bitart ([place] (5/325)) 1 tab Q4H PRN PO PAIN LEVEL 4 -7 Last administered on 09/28/16 21:20; Admin Dose 1 TAB; Start 09/21/16 at 15: 00 Acetaminophen/ Hydrocodone Bitart ([place] (5/325)) 2 tab Q4H PRN PO PAIN LEVEL 7 -10 Last administered on 10/21/16 08:49; Admin Dose 2 TAB; Start 09/21/16 at 15 :00 Hydromorphone HCl (Dilaudid) 0.5 mg Q2H PRN IV PAIN Last administered on 09:25; Admin Dose 0.5 MG; Start 09/21/16 at 15:00 Hydromorphone HCl (Dilaudid) 1 mg Q2H PRN IV PAIN Last administered on 17:53; Admin Dose 1 MG; Start 09/21/16 at 15:00 Docusate Sodium (Colace) 100 mg BID PRN PO CONSTIPATION; Start 09/21/16 at 15: 00 Docusate Sodium (Colace Liquid Cup) 100 mg BID NGT Last administered on 08:00; Admin Dose 100 MG; Start 09/22/16 at 21:00 IV Flush (NS 10 ml) 10 ml PRN PRN IV IV PROTOCOL; Start 09/25/16 at 12:00 Spironolactone 50 mg 50 mg DAILY NGT Last administered on 10/23/16 08:00; Admin Dose 50 MG; Start 09/28/16 at 09:00 Dopamine HCl/ Dextrose 250 ml @ 6.053 mls/ hr TITRATE IV Last administered on 09/30/16 04:46; Admin Dose 6.053 MLS/HR; Start 09/29/16 at 11:00 Phenylephrine HCl/ Dextrose (Marcell-Syneph/D5W) 500 ml @ 75 mls/hr TITRATE IV ; Start 09/29/16 at 14:00 Furosemide (Lasix) 20 mg Q6 IV Last administered on 10/23/16 05:15; Admin Dose 20 MG; Start 10/05/16 at 13:00 Lorazepam 0.5 mg 0.5 mg Q6H PRN IV AGITATION/ANXIETY Last administered on 08:00; Admin Dose 0.5 MG; Start 10/05/16 at 23:00 Fentanyl (Sublimaze) 100 ml @ 2.5 mls/hr TITRATE IV Last administered on 06:44; Admin Dose 3 MLS/HR; Start 10/07/16 at 09:30 Pantoprazole (Protonix Iv) 40 mg BID@06,18 IV Last administered on 10/23/16 05 :15; Admin Dose 40 MG; Start 10/09/16 at 18:00 Nystatin 5 ml 5 ml QID PO Last administered on 10/23/16 08:00; Admin Dose 5 ML ; Start 10/19/16 at 13:00 Fluconazole 200 ml @ 100 mls/hr Q12 IVPB Last administered on 10/23/16 09:01 ; Admin Dose 100 MLS/HR; Start 10/19/16 at 21:00 Vancomycin HCl 250 ml @ 125 mls/hr Q24H IVPB Last administered on 10/22/16 15 :08; Admin Dose 125 MLS/HR; Start 10/21/16 at 15:00 Meropenem/Sodium Chloride (Merrem 1 Gm/50 ml (Pmx)) 50 ml @ 100 mls/hr Q12 IVPB Last administered on 10/23/16 09:03; Admin Dose 100 MLS/HR; Start at 21:00 Miscellaneous Information (*Rx Drug Level Order Reminder*) 1 ONCE ONCE XX ; Start 10/23/16 at 14:00; Stop 10/23/16 at 14:01 Diphenhydramine HCl (Benadryl) 25 mg Q6H PRN IV PRURITUS Last administered on t 10:49; Admin Dose 25 MG; Start 10/23/16 at 10:30 Assessment/Plan Chief Complaint/Hosp Course IMP: 1. Status post septic shock persistent severe leukocytosis. Intermittent vasopressor requirement 2. Anemia multifactorial 3. Encephalopathy toxic metabolic, resolving 4. VDRF status post tracheostomy currently stable on SIMV settings. 5. Hypernatremia resolved 6. Hypokalemia resolved 7. bilateral infiltrates, small effusions. 8. Deep vein thrombosis right upper extremity anticoagulation held secondary to drop in hemoglobin 9. 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 Now with shunt ligation. 10. Status post right-sided pneumothorax following thoracentesis. Chest tube removed . RECS: 1. Continue surgery recommendations, interventional radiology to adjust ALFRED drain today. 2. Continue antibiotics per infectious diseases 3. Vent support continue current SIMV settings 4. Replete K+ and Mg 5. Monitor H&H 6. Continue feeding as tolerated 7. monitor H&H 35 min cc time Keep in ICU today as will likely require general anesthesia for adjustment of ALFRED drain. Problems: DAMIEN GUADARRAMA MD, [facility] Oct 23, 2016 11:20
[2016-10-23] MEDS ORDERED: LIDOCAINE 1% (MDV) 20 ML INJ ONE (12:03)
--- NOTE | 2016-10-23 14:35 | RADRPT ---
PROCEDURE: CT-guided drainage of a perihepatic collection CLINICAL INDICATION: Posterior perihepatic fluid collection TECHNIQUE: Informed consent was obtained from the patient's family member following careful explanation of the risks and benefits of the procedure. Versed and Fentanyl were administered by the nurse who monitore d the patient. The patient was placed prone on the CT table and multiple axial images were obtained through the upp er abdomen. A site in the patient's skin was selected and marked. The area was prepped and draped i n the usual sterile fashion. 1% lidocaine with lidocaine was utilized for local anesthesia. Under direct CT guidance, a 19 Ga needle was advanced into the fluid collection and a guidewire was advanced as confirmed by CT guidance. The needle was exchanged over the wire for an 8.5 Turkish drai nage tube which was placed within the fluid collection. Approximately 40 cc's of grossly purulent fluid were aspirated with a specimen sent for culture and sensitivity. The catheter was connected to a drainage bag and sutured to the patient's skin. A sterile dressing was applied. The patient tolerated the procedure well. COMPARISON: Recent CT FINDINGS: Posterior perihepatic fluid collection. IMPRESSION: Uncomplicated placement of an 8.5-Turkish drain within a posterior perihepatic fluid collection with aspiration of 40 cc of purulent fluid sent for culture and sensitivity. RPTAT: AA Physician Peace Date Time Electronically viewed and signed by Physician Peace on 10/23/2016 14:35 /
[2016-10-23] MEDS: LORATADINE 10 MG TAB PO SCH (16:01)
[2016-10-23] MEDS: VANCOMYCIN 1 GM in NS 250 ML IVPB SCH (16:01)
[2016-10-23] MEDS: HYDROmorphONE 1 MG/ML SYG IV PRN (16:13)
--- NOTE | 2016-10-23 18:16 | PN ---
Date/Time of Note Date/Time of Note DATE: 10/23/16 TIME: 18:15 Assessment/Plan Lines/Catheters IV Catheter Type (from Nrsg): PICC Line Shore in Place (from Nrsg): Yes Assessment/Plan Chief Complaint/Hosp Course This is a 70-year-old female admitted with a perforated colon and contained abscess underwent a drainage procedure on further colonic procedures patient is currently in the intensive care unit unable to come off the ventilator secondary to multiple medical problems Patient was extubated and had to be input intubated again has been treated for septic shock lactic acidosis peritonitis currently has an end colostomy Helio pouch and has undergone colon resection patient also has a right-sided chest tube for a pneumothorax She was reintubated again Status post tracheostomy Tracheal site clean We will continue pulmonary toilet Trach care Vent support Pulmonary toilet trach sutures removed Problems: Subjective 24 Hr Interval Summary Constitutional: improved Pain Control: mild Exam/Review of Systems Vital Signs Vitals Vital Signs Date Time Temp Pulse Resp B/P Pulse Ox O2 Delivery O2 Flow Rate FiO2 10/23/16 17:18 88 15 100 30 10/23/16 16:30 100/61 10/23/16 16:00 98.3 Mechanical Ventilator Trach Collar Intake and Output 10/22/16 10/22/16 10/23/16 15:00 23:00 07:00 Intake Total 1113.12 ml 1067.50 ml 598.72 ml Output Total 920 ml 880 ml 950 ml Balance 193.12 ml 187.50 ml -351.28 ml Exam Neck: non-tender, supple Respiratory: clear to auscultation, normal air movement Cardiovascular: nl pulses, regular rate and rhythm Gastrointestinal: nl liver, spleen, non-tender, soft Results Result Diagram: 10/23/160 10/23/16419 GIL PINEDA MD Oct 23, 2016 18:16
[2016-10-23] MEDS: LANSOPRAZOLE 30 MG CAP NGT SCH (18:19)
--- NOTE | 2016-10-23 19:17 | PN ---
Date/Time of Note Date/Time of Note DATE: 10/23/16 TIME: 19:16 Assessment/Plan VTE Prophylaxis VTE Prophylaxis Intervention: SCD's Assessment/Plan Chief Complaint/Hosp Course 70 yo F with h/o hydrocephalus with previous VPS admitted for sigmoid abscess. hospital stay cb sepsis, colon perforation with multiple abd fluid collections , also recurrent respiratory failure warranting trach, pleural effusion with thora c/b by PTX (chest tube removed) 1. 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 Ventilator dependent respiratory failure: sp trach 3 Left pleural effusion: Status post thoracentesis, complicated with pneumothorax status post placement of a chest tube, removal of chest tube per pulmonology CHEST TUBE PULLED 8.11 4. History of ICH, s/p VPS placement, with subsequent externalization of drain : Neurosurg on board -ID following closely. 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 ID narrowed antifungal to diflucan VPS ligated 8.11 BY NS 5. Paroxysmal A. fib: Now in sinus rhythm status post amiodarone. Cardiology on board 6. Acute renal insufficiency: Resolved. 7. s/p NSTEMI: Likely secondary to septic shock. 8. Volume overload state: HOLD DIURESIS GIVEN LOW BPS 9. Anemia: unclear etio of acute on chronic. 10. Dysphagia Status post PEG tube placement 11. RUE DVT: hold lovenox given anemia Prophylaxis: SCDs Problems: Subjective 24 Hr Interval Summary Subjective hx not possible: pt non-verbal Exam/Review of Systems Vital Signs Vitals Vital Signs Date Time Temp Pulse Resp B/P Pulse Ox O2 Delivery O2 Flow Rate FiO2 10/23/16 18:45 89 16 97/62 100 10/23/16 18:00 Mechanical Ventilator 10/23/16 17:18 30 10/23/16 16:00 98.3 Intake and Output 10/22/16 10/22/16 10/23/16 15:00 23:00 07:00 Intake Total 1113.12 ml 1067.50 ml 598.72 ml Output Total 920 ml 880 ml 950 ml Balance 193.12 ml 187.50 ml -351.28 ml Exam Constitutional: non-verbal Respiratory: clear to auscultation Cardiovascular: regular rate and rhythm Gastrointestinal: soft, No distended Musculoskeletal: nl extremities to inspection Results Result Diagram: 10/23/16 04210/23/16 0420 Results 24 hrs Laboratory Tests Test 10/23/16 04:20 10/23/16 12:09 10/23/16 13:50 White Blood Count 15.5 H Red Blood Count 2.85 L Hemoglobin 8.2 L Hematocrit 24.4 L Mean Corpuscular Volume 85.6 Mean Corpuscular Hemoglobin 28.8 L Mean Corpuscular Hemoglobin Concent 33.6 Red Cell Distribution Width 18.3 H Platelet Count 79 L Mean Platelet Volume Neutrophils % 88.7 H Lymphocytes % 4.5 L Monocytes % 4.4 Eosinophils % 0.9 Basophils % 0.3 Nucleated Red Blood Cells % 0.0 Neutrophils # (Manual) 13.7 H Lymphocytes # 0.7 L Monocytes # 0.7 Eosinophils # 0.1 Basophils # 0.0 Nucleated Red Blood Cells # 0.0 Sodium Level 136 Potassium Level 3.8 Chloride Level 101 Carbon Dioxide Level 32 H Anion Gap 7 L Blood Urea Nitrogen 32 H Creatinine 0.58 Glucose Level 97 Calcium Level 7.0 L Lab Scanned Report REFERENCE LAB Vancomycin Level Trough 18.0 Medications Medications Current Medications Ondansetron HCl (Zofran Inj) 4 mg Q6H PRN IV NAUSEA AND/OR VOMITING Last administered on 09/26/16 09:23; Admin Dose 4 MG; Start 09/16/16 at 00:30 Acetaminophen (Tylenol Tab) 650 mg Q6H PRN PO PAIN LEVEL 1-3 OR FEVER Last administered on 10/08/16 12:47; Admin Dose 650 MG; Start 09/16/16 at 00:30 Polyethylene Glycol 17 gm 17 gm DAILY PO Last administered on 10/23/16 08:00; Admin Dose 17 GM; Start 09/20/16 at 11:00 Norepinephrine/ Dextrose (Levophed/D5W) 500 ml @ 1.87 mls/hr TITRATE IV Last administered on 10/23/16 14:53; Admin Dose 3.75 MLS/HR; Start 09/21/16 at 09:00 Acetaminophen/ Hydrocodone Bitart ([place] (5/325)) 1 tab Q4H PRN PO PAIN LEVEL 4 -7 Last administered on 09/28/16 21:20; Admin Dose 1 TAB; Start 09/21/16 at 15: 00 Acetaminophen/ Hydrocodone Bitart ([place] (5/325)) 2 tab Q4H PRN PO PAIN LEVEL 7 -10 Last administered on 10/21/16 08:49; Admin Dose 2 TAB; Start 09/21/16 at 15 :00 Hydromorphone HCl (Dilaudid) 0.5 mg Q2H PRN IV PAIN Last administered on 09:25; Admin Dose 0.5 MG; Start 09/21/16 at 15:00 Hydromorphone HCl (Dilaudid) 1 mg Q2H PRN IV PAIN Last administered on 16:13; Admin Dose 1 MG; Start 09/21/16 at 15:00 Docusate Sodium (Colace) 100 mg BID PRN PO CONSTIPATION; Start 09/21/16 at 15: 00 Docusate Sodium (Colace Liquid Cup) 100 mg BID NGT Last administered on 08:00; Admin Dose 100 MG; Start 09/22/16 at 21:00 IV Flush (NS 10 ml) 10 ml PRN PRN IV IV PROTOCOL; Start 09/25/16 at 12:00 Spironolactone 50 mg 50 mg DAILY NGT Last administered on 10/23/16 08:00; Admin Dose 50 MG; Start 09/28/16 at 09:00 Dopamine HCl/ Dextrose 250 ml @ 6.053 mls/ hr TITRATE IV Last administered on 09/30/16 04:46; Admin Dose 6.053 MLS/HR; Start 09/29/16 at 11:00 Phenylephrine HCl/ Dextrose (Marcell-Syneph/D5W) 500 ml @ 75 mls/hr TITRATE IV ; Start 09/29/16 at 14:00 Furosemide (Lasix) 20 mg Q6 IV Last administered on 10/23/16 18:19; Admin Dose 20 MG; Start 10/05/16 at 13:00 Lorazepam 0.5 mg 0.5 mg Q6H PRN IV AGITATION/ANXIETY Last administered on 08:00; Admin Dose 0.5 MG; Start 10/05/16 at 23:00 Fentanyl (Sublimaze) 100 ml @ 2.5 mls/hr TITRATE IV Last administered on 06:44; Admin Dose 3 MLS/HR; Start 10/07/16 at 09:30 Nystatin 5 ml 5 ml QID PO Last administered on 10/23/16 18:19; Admin Dose 5 ML ; Start 10/19/16 at 13:00 Meropenem/Sodium Chloride (Merrem 1 Gm/50 ml (Pmx)) 50 ml @ 100 mls/hr Q12 IVPB Last administered on 10/23/16 09:03; Admin Dose 100 MLS/HR; Start at 21:00 Diphenhydramine HCl 25 mg 25 mg Q6H PRN IV PRURITUS Last administered on 10:49; Admin Dose 25 MG; Start 10/23/16 at 10:30 Fluconazole (Diflucan 400 Mg/ NS (Pmx)) 200 ml @ 100 mls/hr TID IVPB ; Start at 21:00 Loratadine 10 mg 10 mg DAILY PO Last administered on 10/23/16 16:01; Admin Dose 10 MG; Start 10/23/16 at 15:00 Vancomycin HCl/ Sodium Chloride (Vancocin/NS) 250 ml @ 83.333 mls/ hr Q36H IVPB ; Start 10/25/16 at 04:00 Lansoprazole (Prevacid) 30 mg BID@06,18 NGT Last administered on 10/23/16 18: 19; Admin Dose 30 MG; Start 10/23/16 at 18:00 DALE RODARTE Oct 23, 2016 19:17
--- NOTE | 2016-10-23 20:00 | PN ---
Date/Time of Note Date/Time of Note DATE: 10/23/16 TIME: 12:17 Assessment/Plan Assessment/Plan Assessment/Plan [facility] Progress Note Date of Service: 10/23/2016 Place of service: [facility] ICU Today's Assessment & Plan: Overall still improving, all be it slowly. Hg responded to 1 unit of packed red blood cells. No indication of active hemorrhage. Patient away from her room (? IR adjustment of perihepatic drain). Previous assessment that still applies today: Overall stable but with failure to thrive. Abdomen continues to remain benign. Trach and PEG being used. Drainage of perihepatic fluid collection ongoing. Of great importance is adequate nutrition and I recommended that we continue the feeds through the PEG with a goal of 60 cc/h with guidance from our dietitian colleagues. With above assessment, I recommended the following for today: 1. Continue aggressive medical management with intubation; CODE STATUS at this point is DO NOT RESUSCITATE but with intubation being okay and no chest compressions or electric shocks. Chemical code is okay. 2. Continue wound VAC; dressing change 3 times a week 3. Cont aggressive pulmonary toilet 4. Please maintain tube feeds at 60 cc per hour 5. Labs in am 6. Please maintain multidisciplinary discussion regarding fluid intake, CODE STATUS, and other major medical decisions since this is a fragile surgical patient with recent sepsis and shock; I changed code status to full code, but without chest compression or electric shock 7. Targeted antimicrobial therapy to culture results 8. PT/OT when patient is able to 9. Wean off vent as tolerated 10. Keep in the ICU (not ready for d/c from ICU or for long-term facility yet) 11. Social work and case management to please start working on disposition planning (rehab versus SNF) 12. Please note: Guille, who is the patient's decision maker currently, would like Mr. Yanez (patient's ex-) to still be involved in her care. He should still have full access to the hospital and patient according to Guille. 13. Tracheostomy management per Dr. Jones 14. IR adjustment of perihepatic fluid collection drain 15. Please flush perihepatic drain with 10cc NS TID 16. Cont treatment of oral thrush 17. Please start weaning trials off the vent Thank you again for your great care of this very pleasant patient and wonderful family. If there are any questions, please feel free to call me at [phone]. Nature of presenting problem: High severity Please note that, given the extensive number of diagnoses or management options , the extensive amount and/or complexity of data needed to be reviewed, and I risk of complications and/or morbidity or mortality, this qualifies as high complexity type of decision-making. Disclaimer: Inadvertent spelling and grammatical errors are likely due to EHR/ dictation software use and do not reflect on the quality of delivered patient care. Also, please note that the electronic time recorded on this node does not necessarily reflect the actual time of the visit. 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 S/p IR drainage 09/09/16 with removal of 20 cc pus and placement of a 10 Fr. pigtail catheter at [facility]. D/c home 09/12/16. Re-presented to [place] ED 09/15/16 after being diverted from [facility] (due to internal disaster diversion) where CT was done showing adequate placement of the percutaneous drain near the sigmoid colon and decompressed sigmoid colon abscess, no obvious free air or significant spillage of stool in the abdominal cavity, and incidental finding of tail of the SURVEY MANAGER shunt in the pelvis (new from right upper quadrant position of the same drain on the CT scan at [facility]). Transfer to [facility] 09/15/2016 for further cares. S/p upsizing of drain to 12 Fr pigtail on 09/17/16 (communication with colon demonstrated; no obvious free communication to rest of peritoneal space). Patient decompensated in the early hours of the morning on 09/21/2016 and had to be transferred to the intensive care unit with need for endotracheal tube intubation, central line placement, and resuscitation for treatment of shock with lactic acidosis and evidence of peritonitis and free air on the new chest, abdomen, and pelvis CT scan. S/p a rather challenging sigmoid colectomy with performance of end colostomy (Reid's procedure), takedown of splenic flexure of the colon, lysis of adhesions (60 minutes), and abdominal lavage at [facility] on 09/21/16; diagnosis of colon ischemia (distal transverse colon and descending colon) during reentry through recent laparotomy incision with exploration of abdominal cavity, takedown of colostomy, completion left hemicolectomy with resection of distal transverse colon, lysis of adhesions, abdominal lavage, performance of an end colostomy [facility] 09/24/16. Extubated post op evening of 09/25/16. Decompensation with intubation and restart of pressors . Right-sided pneumothorax after drainage of right pleural effusion requiring chest tube placement 09/30/2016. Extubated 10/03/2016. Decompensation with reintubation 10/06/16. Tracheostomy and PEG placed. Perihepatic fluid collections drained 10/13/2016. Cryptococcal antigen found in the urine 2016. Antifungal therapy started. Comorbidities: 1. Perforated sigmoid colon (see below) 2. Status post ventriculoperitoneal shunt placement. 3. Status post prior hysterectomy and bilateral salpingo-oophorectomy through Pfannenstiel incision 4. S/p IR drainage 09/09/16 with removal of 20 cc pus and placement of a 10 Fr. pigtail catheter at [facility]. 5. Readmission to [facility] 09/15/16 with upsizing of drain to 12 Fr pigtail on (communication with colon demonstrated; no obvious free communication to rest of peritoneal space). Septic shock with multiorgan failure 09/21/2016 requiring ICU admission with intubation and pressors. 6. S/p a rather challenging sigmoid colectomy with performance of end colostomy (Reid's procedure), takedown of splenic flexure of the colon, lysis of adhesions (60 minutes), and abdominal lavage at [facility] on 09/21/16 7. Colon ischemia (distal transverse colon and descending colon) 8. S/p reentry through recent laparotomy incision with exploration of abdominal cavity, takedown of colostomy, completion left hemicolectomy with resection of distal transverse colon, lysis of adhesions, abdominal lavage, performance of an end colostomy [facility] 09/24/16 9. Stage I/II decubitus pressure ulcers (10/11/2016 [facility] ICU) Subjective: Reportedly remained on a ventilator with tracheostomy without major events. Patient away from her room (? IR adjustment of perihepatic drain). Objective: Vitals: See below I's & O's: See below Exam: Patient away from her room (? IR adjustment of perihepatic drain). Labs: See below Exam/Review of Systems Vital Signs Vitals Vital Signs Date Time Temp Pulse Resp B/P Pulse Ox O2 Delivery O2 Flow Rate FiO2 10/23/16 19:15 88 19 94/59 100 10/23/16 19:00 Mechanical Ventilator Trach Collar 10/23/16 17:18 30 10/23/16 16:00 98.3 Intake and Output 10/22/16 10/22/16 10/23/16 15:00 23:00 07:00 Intake Total 1113.12 ml 1067.50 ml 598.72 ml Output Total 920 ml 880 ml 950 ml Balance 193.12 ml 187.50 ml -351.28 ml Results Result Diagram: 10/23/16 0420 10/23/16 0420 ALEXSANDER DUARTE M.D. Oct 23, 2016 20:00
[2016-10-24] VITALS (96 sets, daily range): BP systolic 78–141; BP diastolic 52–99; PULSE 85–104; RESP 13–26
[2016-10-24] MEDS: ALBUTEROL 18 GM INHALER INH SCH ×6 (01:17→21:23)
[2016-10-24] MEDS: IPRATROPIUM (HFA) 12.9 GM INHALER INH SCH ×6 (01:17→21:24)
[2016-10-24 05:19] LABS: BASOPHIL # 0.1 10^3/ul (0.0-0.1); BASOPHILS % 0.4 % (0.0-2.0); EOSINOPHILS # 0.1 10^3/ul (0.0-0.5); EOSINOPHILS % 0.8 % (0.0-7.0); HEMATOCRIT 26.4 % (37.0-47.0); HEMOGLOBIN 8.7 g/dl (12.0-16.0); LYMPHOCYTES # 0.7 10^3/ul (0.8-2.9); LYMPHOCYTES % 4.4 % (15.0-51.0); MEAN CORPUSCULAR HEMOGLOBIN 29.1 pg (29.0-33.0); MEAN CORPUSCULAR VOLUME 88.3 fl (82.0-101.0); MONOCYTE # 0.6 10^3/ul (0.3-0.9); MONOCYTES % 3.7 % (0.0-11.0); NEUTROPHILS % 88.6 % (39.0-77.0); PLATELET COUNT 114 10^3/UL (140-415); RED BLOOD COUNT 2.99 10^6/ul (4.20-5.40); RED CELL DISTRIBUTION WIDTH 18.5 % (11.5-14.5); WHITE BLOOD COUNT 16.3 10^3/ul (4.8-10.8)
[2016-10-24 05:49] LABS: CALCIUM 7.2 mg/dl (8.4-10.2); CREATININE 0.58 mg/dl (0.44-1.00); POTASSIUM 3.4 mmol/L (3.5-5.1)
[2016-10-24] MEDS: LANSOPRAZOLE 30 MG CAP NGT SCH ×2 (06:28→18:59)
[2016-10-24] MEDS: FUROSEMIDE 20 MG INJ IV SCH ×4 (06:28→18:59)
[2016-10-24] MEDS: NYSTATIN SUSP 5 ML CUP PO SCH ×4 (08:50→21:27)
[2016-10-24] MEDS: LORATADINE 10 MG TAB PO SCH (08:50)
[2016-10-24] MEDS: SPIRONOLACTONE 50 MG TAB NGT SCH (08:50)
[2016-10-24] MEDS: DOCUSATE SODIUM 10 MG/ML (10ML CUP) NGT SCH ×2 (08:50→21:26)
[2016-10-24] MEDS: POLYETHYLENE GLYCOL 17 GM PACKET PO SCH (08:50)
[2016-10-24] MEDS: MEROPENEM 1 GM/50ML(PMX) 50 ML IVPB SCH ×2 (08:50→21:26)
[2016-10-24] MEDS: FLUCONAZOLE 400 MG/NS (PMX) 200 ML IVPB SCH ×3 (08:51→21:26)
[2016-10-24] MEDS: BALSAM PERU/CASTOR OIL 60 GM TUBE TOP SCH (08:51)
[2016-10-24] MEDS: HYDROmorphONE 1 MG/ML SYG IV PRN (08:56)
--- NOTE | 2016-10-24 09:51 | PN ---
DATE: 10/23/2016 SUBJECTIVE: No acute changes overnight. The patient is awake, looks comfortable. She developed hives over the body. She is in no distress and no fevers. Temperature 98.3, pulse 80, respirations 16, blood pressure 92/52, saturation 98 on vent. LABORATORY AND DIAGNOSTIC DATA: WBC 15.5, H and H 8.2 and 24.4, platelets 79, neutrophils 88.7, BUN 32, creatinine 0.58. MICROBIOLOGY: Blood culture on October 20 grew Staph species. Urine cultures remain negative. INDWELLING: Trach, PICC, Shore, PICC line. ANTIMICROBIALS: Meropenem, vancomycin, fluconazole. PHYSICAL EXAMINATION: GENERAL: Chronically ill-appearing, elderly woman who is in no distress. HEENT: Head atraumatic, normocephalic. Sclerae anicteric. Buccal mucosa dry. NECK: Supple. Tracheostomy present. CHEST: Rise symmetrical. Breath sounds diminished at the bases. HEART: S1, S2. ABDOMEN: Soft, bowel sounds present. EXTREMITIES: With bilateral trace edema. ASSESSMENT: 1. Systemic inflammatory response syndrome, status post septic shock, with a resolving leukocytosis. 2. Coag-negative Staph bacteremia possibly contaminated specimen. 3. Extensive pulmonary infiltrates with cavitary lesions as per CT of the chest and sputum cx growing MOLD. 4. Status post perforated sigmoid colon repair with end colostomy on September 21 and 2016. 5. Positive cryptococcal serology with CSF fluid on October 23 negative 6. Status post ventriculoperitoneal shunt externalization with ligation. 7. Anemia. 8. Acute right upper extremity deep venous thrombosis. 9. Status post pneumothorax followed paracenteses requiring chest tube placement with removal. PLAN: The patient remains stable, covered with appropriate antimicrobials. Will change Diflucan to 1200 mg daily. Continue vancomycin and meropenem for now. Add antihistamines. The patient is going to have reposition of perihepatic drain by Interventional Radiology today. Dictated By: Kathy Lopez NP /rhina/ /Document#: [id number] LIZA
--- NOTE | 2016-10-24 11:19 | PN ---
Date/Time of Note Date/Time of Note DATE: 10/24/16 TIME: 11:18 Assessment/Plan Lines/Catheters IV Catheter Type (from Nrsg): PICC Line Shore in Place (from Nrsg): Yes Assessment/Plan Chief Complaint/Hosp Course This is a 70-year-old female admitted with a perforated colon and contained abscess underwent a drainage procedure on further colonic procedures patient is currently in the intensive care unit unable to come off the ventilator secondary to multiple medical problems Patient was extubated and had to be input intubated again has been treated for septic shock lactic acidosis peritonitis currently has an end colostomy Helio pouch and has undergone colon resection patient also has a right-sided chest tube for a pneumothorax She was reintubated again Status post tracheostomy We will continue pulmonary toilet Trach care Vent support Pulmonary toilet Patient DNR Problems: Subjective 24 Hr Interval Summary Constitutional: improved Pain Control: mild Exam/Review of Systems Vital Signs Vitals Vital Signs Date Time Temp Pulse Resp B/P Pulse Ox O2 Delivery O2 Flow Rate FiO2 10/24/16 10:10 92 22 100 30 10/24/16 06:45 110/70 10/24/16 06:30 Mechanical Ventilator 10/24/16 04:00 97.6 Intake and Output 10/23/16 10/23/16 10/24/16 15:00 23:00 07:00 Intake Total 331.87 ml 1060.00 ml 641.54 ml Output Total 1400 ml 1465 ml 1120 ml Balance -1068.13 ml -405.00 ml -478.46 ml Exam ENMT: mucosa pink and moist, nl external ears & nose, nl lips & teeth, nl nasal mucosa & septum Neck: non-tender, supple Respiratory: clear to auscultation, normal air movement Cardiovascular: nl pulses, regular rate and rhythm Results Result Diagram: 10/24/16 0400 10/24/16399 GIL PINEDA MD Oct 24, 2016 11:19
--- NOTE | 2016-10-24 11:51 | PN ---
DATE: 10/24/2016 SUBJECTIVE DATA: The patient was started on Levophed drip overnight, now on 2 mcg per minute. She is lethargic but arousable and tracking with eyes. Family at bedside. OBJECTIVE DATA: Temperature 97.6, pulse 92, respirations 22, blood pressure 110/70, saturation 100 on 30 percent. LABORATORY AND DIAGNOSTIC DATA: WBC 16.3, H and H 8.7 and 26.4, platelets 114, neutrophils 88.6. BUN 28, creatinine 0.58. MICROBIOLOGY: Serology for cryptococcal antigen on October 15 came back positive with high titer, CSF fluid on October 23 came back negative. Blood culture on October 20 grew coag-negative staph species, 1/2 sets. Stool for C difficile came back negative. Urine culture negative. INDWELLING: Trach, PEG, right upper extremity PICC line, multiple abdominal drains, [employer] shunt. ANTIMICROBIALS: Vancomycin, meropenem, high-dose fluconazole. PHYSICAL EXAMINATION: GENERAL: Wasted, well-developed, elderly woman, in no distress. HEENT: Head atraumatic, normocephalic. Sclerae anicteric. Buccal mucosa dry. NECK: Supple. Tracheostomy present. LUNGS: Chest rise symmetrical. Breath sounds diminished at bases. HEART: S1, S2. ABDOMEN: Soft, bowel sounds present. EXTREMITIES: No cyanosis. ASSESSMENT: 1. Septic shock. 2. Recurrent perihepatic fluid collection, status post placement of drainage catheter on October 23, 2016, fluid cultures pending. 3. Respiratory failure with extensive pulmonary infiltrates and cavitary lesions per CT of the chest. 4. Status post perforated sigmoid colon repair with end colostomy. 5. Positive cryptococcus serology, etiology unclear, possibly pulmonary source versus intra-abdominal, cerebrospinal fluid sent on October 23 revealed no evidence of cryptococcosis. 6. Status post ventriculoperitoneal shunt externalization with ligation later. 7. Upper extremity deep vein thrombosis. 8. Severe protein-calorie malnutrition. PLAN: The patient is doing poorly. She is on pressors, covered with broad-spectrum antibiotics and high dose of fluconazole. We will await for intra-abdominal fluid culture. Continue present care. We will discuss with Pulmonary team if the patient may need a bronchoscopy as her endotracheal aspirate on October 07 grew mold. Dictated By: Kathy Lopez NP /rhina/ananda /Document#: [id number] MTDD
--- NOTE | 2016-10-24 11:51 | CONS ---
Date/Time of Note Date/Time of Note DATE: 10/24/16 TIME: 11:42 Consult Date/Type/Reason Admit Date/Time Sep 15, 2016 at 21:35 Initial Consult Date 09/21/16 Type of Consultation: Pulmonary Subjective Status post drain placement into the perihepatic space Remains on low-dose vasopressors Mostly somnolent. Objective Vital Signs Date Time Temp Pulse Resp B/P Pulse Ox O2 Delivery O2 Flow Rate FiO2 10/24/16 10:10 92 22 100 30 10/24/16 06:45 110/70 10/24/16 06:30 Mechanical Ventilator 10/24/16 04:00 97.6 Intake and Output 10/23/16 10/23/16 10/24/16 15:00 23:00 07:00 Intake Total 331.87 ml 1060.00 ml 641.54 ml Output Total 1400 ml 1465 ml 1120 ml Balance -1068.13 ml -405.00 ml -478.46 ml Exam PHYSICAL EXAMINATION GENERAL: Elderly lady on mechanical ventilation via tracheostomy VITAL SIGNS: see below. HEENT: Pupils equal, round, and reactive to light. Tracheostomy site clean and intact. CARDIAC: S1, S2, systolic ejection murmur. CHEST: Diminished air entry bilaterally. ABDOMEN: Mildly distended. Diminished bowel sounds. EXTREMITIES: No cyanosis, clubbing edema +1 NEUROLOGIC: Generalized weakness Results/Medications Result Diagram: 10/24/16 0400 10/24/16 0400 Results 24 hrs Laboratory Tests Test 10/23/16 12:09 10/23/16 13:50 10/24/16 04:00 Lab Scanned Report REFERENCE LAB Vancomycin Level Trough 18.0 White Blood Count 16.3 H Red Blood Count 2.99 L Hemoglobin 8.7 L Hematocrit 26.4 L Mean Corpuscular Volume 88.3 Mean Corpuscular Hemoglobin 29.1 Mean Corpuscular Hemoglobin Concent 33.0 Red Cell Distribution Width 18.5 H Platelet Count 114 #L Mean Platelet Volume Neutrophils % 88.6 H Lymphocytes % 4.4 L Monocytes % 3.7 Eosinophils % 0.8 Basophils % 0.4 Nucleated Red Blood Cells % 0.0 Neutrophils # (Manual) 14.4 H Lymphocytes # 0.7 L Monocytes # 0.6 Eosinophils # 0.1 Basophils # 0.1 Nucleated Red Blood Cells # 0.0 Sodium Level 136 Potassium Level 3.4 L Chloride Level 98 Carbon Dioxide Level 32 H Anion Gap 9 Blood Urea Nitrogen 28 H Creatinine 0.58 Glucose Level 154 Calcium Level 7.2 L Medications Current Medications Ondansetron HCl (Zofran Inj) 4 mg Q6H PRN IV NAUSEA AND/OR VOMITING Last administered on 09/26/16 09:23; Admin Dose 4 MG; Start 09/16/16 at 00:30 Acetaminophen (Tylenol Tab) 650 mg Q6H PRN PO PAIN LEVEL 1-3 OR FEVER Last administered on 10/08/16 12:47; Admin Dose 650 MG; Start 09/16/16 at 00:30 Polyethylene Glycol 17 gm 17 gm DAILY PO Last administered on 10/24/16 08:50; Admin Dose 17 GM; Start 09/20/16 at 11:00 Norepinephrine/ Dextrose (Levophed/D5W) 500 ml @ 1.87 mls/hr TITRATE IV Last administered on 10/23/16 14:53; Admin Dose 3.75 MLS/HR; Start 09/21/16 at 09:00 Acetaminophen/ Hydrocodone Bitart ([place] (5/325)) 1 tab Q4H PRN PO PAIN LEVEL 4 -7 Last administered on 09/28/16 21:20; Admin Dose 1 TAB; Start 09/21/16 at 15: 00 Acetaminophen/ Hydrocodone Bitart ([place] (5/325)) 2 tab Q4H PRN PO PAIN LEVEL 7 -10 Last administered on 10/21/16 08:49; Admin Dose 2 TAB; Start 09/21/16 at 15 :00 Hydromorphone HCl (Dilaudid) 0.5 mg Q2H PRN IV PAIN Last administered on 09:25; Admin Dose 0.5 MG; Start 09/21/16 at 15:00 Hydromorphone HCl (Dilaudid) 1 mg Q2H PRN IV PAIN Last administered on 08:56; Admin Dose 1 MG; Start 09/21/16 at 15:00 Docusate Sodium (Colace) 100 mg BID PRN PO CONSTIPATION; Start 09/21/16 at 15: 00 Docusate Sodium (Colace Liquid Cup) 100 mg BID NGT Last administered on 08:50; Admin Dose 100 MG; Start 09/22/16 at 21:00 IV Flush (NS 10 ml) 10 ml PRN PRN IV IV PROTOCOL; Start 09/25/16 at 12:00 Spironolactone 50 mg 50 mg DAILY NGT Last administered on 10/24/16 08:50; Admin Dose 50 MG; Start 09/28/16 at 09:00 Dopamine HCl/ Dextrose 250 ml @ 6.053 mls/ hr TITRATE IV Last administered on 09/30/16 04:46; Admin Dose 6.053 MLS/HR; Start 09/29/16 at 11:00 Phenylephrine HCl/ Dextrose (Marcell-Syneph/D5W) 500 ml @ 75 mls/hr TITRATE IV ; Start 09/29/16 at 14:00 Furosemide (Lasix) 20 mg Q6 IV Last administered on 10/24/16 06:28; Admin Dose 20 MG; Start 10/05/16 at 13:00 Lorazepam 0.5 mg 0.5 mg Q6H PRN IV AGITATION/ANXIETY Last administered on 08:00; Admin Dose 0.5 MG; Start 10/05/16 at 23:00 Fentanyl (Sublimaze) 100 ml @ 2.5 mls/hr TITRATE IV Last administered on 06:44; Admin Dose 3 MLS/HR; Start 10/07/16 at 09:30 Nystatin 5 ml 5 ml QID PO Last administered on 10/24/16 08:50; Admin Dose 5 ML ; Start 10/19/16 at 13:00 Meropenem/Sodium Chloride (Merrem 1 Gm/50 ml (Pmx)) 50 ml @ 100 mls/hr Q12 IVPB Last administered on 10/24/16 08:50; Admin Dose 100 MLS/HR; Start at 21:00 Diphenhydramine HCl 25 mg 25 mg Q6H PRN IV PRURITUS Last administered on 10:49; Admin Dose 25 MG; Start 10/23/16 at 10:30 Fluconazole (Diflucan 400 Mg/ NS (Pmx)) 200 ml @ 100 mls/hr TID IVPB Last administered on 10/24/16 08:51; Admin Dose 100 MLS/HR; Start 10/23/16 at 21:00 Loratadine 10 mg 10 mg DAILY PO Last administered on 10/24/16 08:50; Admin Dose 10 MG; Start 10/23/16 at 15:00 Vancomycin HCl/ Sodium Chloride (Vancocin/NS) 250 ml @ 83.333 mls/ hr Q36H IVPB ; Start 10/25/16 at 04:00 Lansoprazole (Prevacid) 30 mg BID@06,18 NGT Last administered on 10/24/16 06: 28; Admin Dose 30 MG; Start 10/23/16 at 18:00 Assessment/Plan Chief Complaint/Hosp Course IMP: 1. Status post septic shock persistent severe leukocytosis. Intermittent vasopressor requirement 2. Ongoing anemia. Patient is currently stable 3. Encephalopathy toxic metabolic, resolving 4. VDRF status post tracheostomy currently stable on SIMV settings. Further weaning on hold 5. Bilateral pulmonary infiltrates 6. 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 7. Status post right-sided pneumothorax following thoracentesis now resolved with chest tube removed 8. Upper extremity vein thrombosis however anticoagulation held secondary to drop in hemoglobin. RECS: 1. Continue surgery recommendations, 2. Continue antibiotics per infectious diseases 3. Vent support continue current SIMV settings hold further weaning until hemodynamically stable 4. Replete K+ and Mg 5. Monitor H&H 6. Continue feeding as tolerated 7. monitor H&H Disposition Keep in ICU Problems: DAMIEN GUADARRAMA MD, [facility] Oct 24, 2016 11:51
--- NOTE | 2016-10-24 13:23 | PN ---
Date/Time of Note Date/Time of Note DATE: 10/24/16 TIME: 13:21 Assessment/Plan VTE Prophylaxis VTE Prophylaxis Intervention: SCD's Assessment/Plan Chief Complaint/Hosp Course 70 yo F with h/o hydrocephalus with previous VPS admitted for sigmoid abscess. hospital stay cb sepsis, colon perforation with multiple abd fluid collections , also recurrent respiratory failure warranting trach, pleural effusion with thora c/b by PTX (chest tube removed) 1. 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 Ventilator dependent respiratory failure: sp trach 3 Left pleural effusion: Status post thoracentesis, complicated with pneumothorax status post placement of a chest tube, removal of chest tube per pulmonology CHEST TUBE PULLED 8.11 4. History of ICH, s/p VPS placement, with subsequent externalization of drain : Neurosurg on board -ID following closely. Pt with +serum crypto Ag, no evidence of crypto in CSF, ID narrowed antifungal to diflucan VPS ligated 8.11 BY NS 5. Paroxysmal A. fib: Now in sinus rhythm status post amiodarone. Cardiology on board 6. Acute renal insufficiency: Resolved. 7. s/p NSTEMI: Likely secondary to septic shock. 8. Volume overload state: HOLD DIURESIS GIVEN LOW BPS 9. Anemia: unclear etio of acute on chronic. 10. Dysphagia Status post PEG tube placement 11. RUE DVT: hold lovenox given anemia Prophylaxis: SCDs Problems: Subjective 24 Hr Interval Summary Subjective hx not possible: pt non-verbal Exam/Review of Systems Vital Signs Vitals Vital Signs Date Time Temp Pulse Resp B/P Pulse Ox O2 Delivery O2 Flow Rate FiO2 10/24/16 12:30 86 20 103/62 10/24/16 12:15 100 10/24/16 10:10 30 10/24/16 09:00 Mechanical Ventilator 10/24/16 08:00 98.3 Intake and Output 10/23/16 10/23/16 10/24/16 15:00 23:00 07:00 Intake Total 331.87 ml 1060.00 ml 641.54 ml Output Total 1400 ml 1465 ml 1120 ml Balance -1068.13 ml -405.00 ml -478.46 ml Exam Constitutional: non-verbal Respiratory: clear to auscultation Cardiovascular: regular rate and rhythm Gastrointestinal: soft, No distended Musculoskeletal: nl extremities to inspection Results Result Diagram: 10/24/16 0400 10/24/16 0400 Results 24 hrs Laboratory Tests Test 10/23/16 13:50 10/24/16 04:00 Vancomycin Level Trough 18.0 White Blood Count 16.3 H Red Blood Count 2.99 L Hemoglobin 8.7 L Hematocrit 26.4 L Mean Corpuscular Volume 88.3 Mean Corpuscular Hemoglobin 29.1 Mean Corpuscular Hemoglobin Concent 33.0 Red Cell Distribution Width 18.5 H Platelet Count 114 #L Mean Platelet Volume Neutrophils % 88.6 H Lymphocytes % 4.4 L Monocytes % 3.7 Eosinophils % 0.8 Basophils % 0.4 Nucleated Red Blood Cells % 0.0 Neutrophils # (Manual) 14.4 H Lymphocytes # 0.7 L Monocytes # 0.6 Eosinophils # 0.1 Basophils # 0.1 Nucleated Red Blood Cells # 0.0 Sodium Level 136 Potassium Level 3.4 L Chloride Level 98 Carbon Dioxide Level 32 H Anion Gap 9 Blood Urea Nitrogen 28 H Creatinine 0.58 Glucose Level 154 Calcium Level 7.2 L Medications Medications Current Medications Ondansetron HCl (Zofran Inj) 4 mg Q6H PRN IV NAUSEA AND/OR VOMITING Last administered on 09/26/16 09:23; Admin Dose 4 MG; Start 09/16/16 at 00:30 Acetaminophen (Tylenol Tab) 650 mg Q6H PRN PO PAIN LEVEL 1-3 OR FEVER Last administered on 10/08/16 12:47; Admin Dose 650 MG; Start 09/16/16 at 00:30 Polyethylene Glycol 17 gm 17 gm DAILY PO Last administered on 10/24/16 08:50; Admin Dose 17 GM; Start 09/20/16 at 11:00 Norepinephrine/ Dextrose (Levophed/D5W) 500 ml @ 1.87 mls/hr TITRATE IV Last administered on 10/23/16 14:53; Admin Dose 3.75 MLS/HR; Start 09/21/16 at 09:00 Acetaminophen/ Hydrocodone Bitart ([place] (5/325)) 1 tab Q4H PRN PO PAIN LEVEL 4 -7 Last administered on 09/28/16 21:20; Admin Dose 1 TAB; Start 09/21/16 at 15: 00 Acetaminophen/ Hydrocodone Bitart ([place] (5/325)) 2 tab Q4H PRN PO PAIN LEVEL 7 -10 Last administered on 10/21/16 08:49; Admin Dose 2 TAB; Start 09/21/16 at 15 :00 Hydromorphone HCl (Dilaudid) 0.5 mg Q2H PRN IV PAIN Last administered on 09:25; Admin Dose 0.5 MG; Start 09/21/16 at 15:00 Hydromorphone HCl (Dilaudid) 1 mg Q2H PRN IV PAIN Last administered on 08:56; Admin Dose 1 MG; Start 09/21/16 at 15:00 Docusate Sodium (Colace) 100 mg BID PRN PO CONSTIPATION; Start 09/21/16 at 15: 00 Docusate Sodium (Colace Liquid Cup) 100 mg BID NGT Last administered on 08:50; Admin Dose 100 MG; Start 09/22/16 at 21:00 IV Flush (NS 10 ml) 10 ml PRN PRN IV IV PROTOCOL; Start 09/25/16 at 12:00 Spironolactone 50 mg 50 mg DAILY NGT Last administered on 10/24/16 08:50; Admin Dose 50 MG; Start 09/28/16 at 09:00 Dopamine HCl/ Dextrose 250 ml @ 6.053 mls/ hr TITRATE IV Last administered on 09/30/16 04:46; Admin Dose 6.053 MLS/HR; Start 09/29/16 at 11:00 Phenylephrine HCl/ Dextrose (Marcell-Syneph/D5W) 500 ml @ 75 mls/hr TITRATE IV ; Start 09/29/16 at 14:00 Furosemide (Lasix) 20 mg Q6 IV Last administered on 10/24/16 12:59; Admin Dose 20 MG; Start 10/05/16 at 13:00 Lorazepam 0.5 mg 0.5 mg Q6H PRN IV AGITATION/ANXIETY Last administered on 08:00; Admin Dose 0.5 MG; Start 10/05/16 at 23:00 Fentanyl (Sublimaze) 100 ml @ 2.5 mls/hr TITRATE IV Last administered on 06:44; Admin Dose 3 MLS/HR; Start 10/07/16 at 09:30 Nystatin 5 ml 5 ml QID PO Last administered on 10/24/16 12:59; Admin Dose 5 ML ; Start 10/19/16 at 13:00 Meropenem/Sodium Chloride (Merrem 1 Gm/50 ml (Pmx)) 50 ml @ 100 mls/hr Q12 IVPB Last administered on 10/24/16 08:50; Admin Dose 100 MLS/HR; Start at 21:00 Diphenhydramine HCl 25 mg 25 mg Q6H PRN IV PRURITUS Last administered on 10:49; Admin Dose 25 MG; Start 10/23/16 at 10:30 Fluconazole (Diflucan 400 Mg/ NS (Pmx)) 200 ml @ 100 mls/hr TID IVPB Last administered on 10/24/16 12:59; Admin Dose 100 MLS/HR; Start 10/23/16 at 21:00 Loratadine 10 mg 10 mg DAILY PO Last administered on 10/24/16 08:50; Admin Dose 10 MG; Start 10/23/16 at 15:00 Vancomycin HCl/ Sodium Chloride (Vancocin/NS) 250 ml @ 83.333 mls/ hr Q36H IVPB ; Start 10/25/16 at 04:00 Lansoprazole (Prevacid) 30 mg BID@06,18 NGT Last administered on 10/24/16 06: 28; Admin Dose 30 MG; Start 10/23/16 at 18:00 DALE RODARTE Oct 24, 2016 13:23
--- NOTE | 2016-10-24 14:30 | PN ---
Date/Time of Note Date/Time of Note DATE: 10/24/16 TIME: 14:25 Assessment/Plan Assessment/Plan Assessment/Plan [facility] Progress Note Date of Service: 10/24/2016 Place of service: [facility] ICU Today's Assessment & Plan: Overall still improving, all be it slowly. Last known area of abscess controlled with new perc drain. No indication of active hemorrhage. No other major uncontrolled issue. I'm concerned regarding level of her engagement and will to get better. Will need to assess as time goes. Previous assessment that still applies today: Overall stable but with failure to thrive. Abdomen continues to remain benign. Trach and PEG being used. Drainage of perihepatic fluid collection ongoing. Of great importance is adequate nutrition and I recommended that we continue the feeds through the PEG with a goal of 60 cc/h with guidance from our dietitian colleagues. With above assessment, I recommended the following for today: 1. Continue aggressive medical management; will need to review code status periodically 2. Continue wound VAC; dressing change 3 times a week 3. Cont aggressive pulmonary toilet 4. Please maintain tube feeds at 60 cc per hour 5. Labs in am 6. Please maintain multidisciplinary discussion regarding fluid intake, CODE STATUS, and other major medical decisions since this is a fragile surgical patient with recent sepsis and shock; I changed code status to full code, but without chest compression or electric shock 7. Targeted antimicrobial therapy to culture results 8. PT/OT when patient is able to 9. Wean off vent as tolerated 10. Keep in the ICU (not ready for d/c from ICU or for long-term facility yet) 11. Social work and case management to please start working on disposition planning (will need ict support and test engineers facility with pulmonary/vent care; ? [place]) 12. Please note: Guille, who is the patient's decision maker currently, would like Mr. Yanez (patient's ex-) to still be involved in her care. He should still have full access to the hospital and patient according to Guille. 13. Tracheostomy management per Dr. Jones 14. IR adjustment of perihepatic fluid collection drain 15. Please flush perihepatic drains with 10cc NS TID 16. Cont treatment of oral thrush 17. Please continue weaning trials off the vent Thank you again for your great care of this very pleasant patient and wonderful family. If there are any questions, please feel free to call me at [phone]. Nature of presenting problem: High severity Please note that, given the extensive number of diagnoses or management options , the extensive amount and/or complexity of data needed to be reviewed, and I risk of complications and/or morbidity or mortality, this qualifies as high complexity type of decision-making. Disclaimer: Inadvertent spelling and grammatical errors are likely due to EHR/ dictation software use and do not reflect on the quality of delivered patient care. Also, please note that the electronic time recorded on this node does not necessarily reflect the actual time of the visit. Updated Clinical Summary: A very pleasant 70-year-old lady without significant known past medical history other than a [employer] shunt placement many years ago which she did not remember or report, presenting with what appears to be a sigmoid colon abscess or pericolonic abscess, which seemed to be a complication of diverticulitis. S/p IR drainage 09/09/16 with removal of 20 cc pus and placement of a 10 Fr. pigtail catheter at [facility]. D/c home 09/12/16. Re-presented to [facility] 09/15/16 after being diverted from [facility] (due to internal disaster diversion) where CT was done showing adequate placement of the percutaneous drain near the sigmoid colon and decompressed sigmoid colon abscess, no obvious free air or significant spillage of stool in the abdominal cavity, and incidental finding of tail of the [employer] shunt in the pelvis (new from right upper quadrant position of the same drain on the CT scan at [facility]). Transfer to [facility] 09/15/2016 for further cares. S/p upsizing of drain to 12 Fr pigtail on 09/17/16 (communication with colon demonstrated; no obvious free communication to rest of peritoneal space). Patient decompensated in the early hours of the morning on 09/21/2016 and had to be transferred to the intensive care unit with need for endotracheal tube intubation, central line placement, and resuscitation for treatment of shock with lactic acidosis and evidence of peritonitis and free air on the new chest, abdomen, and pelvis CT scan. S/p a rather challenging sigmoid colectomy with performance of end colostomy (Reid's procedure), takedown of splenic flexure of the colon, lysis of adhesions (60 minutes), and abdominal lavage at [facility] on 09/21/16; diagnosis of colon ischemia (distal transverse colon and descending colon) during reentry through recent laparotomy incision with exploration of abdominal cavity, takedown of colostomy, completion left hemicolectomy with resection of distal transverse colon, lysis of adhesions, abdominal lavage, performance of an end colostomy [facility] 09/24/16. Extubated post op evening of 09/25/16. Decompensation with intubation and restart of pressors . Right-sided pneumothorax after drainage of right pleural effusion requiring chest tube placement 09/30/2016. Extubated 10/03/2016. Decompensation with reintubation 10/06/16. Tracheostomy and PEG placed. Perihepatic fluid collections drained 10/13/2016. Cryptococcal antigen found in the urine 2016. Antifungal therapy started. S/p new perc drain perihepatic 10/23/16. Comorbidities: 1. Perforated sigmoid colon (see below) 2. Status post ventriculoperitoneal shunt placement. 3. Status post prior hysterectomy and bilateral salpingo-oophorectomy through Pfannenstiel incision 4. S/p IR drainage 09/09/16 with removal of 20 cc pus and placement of a 10 Fr. pigtail catheter at [facility]. 5. Readmission to [facility] 09/15/16 with upsizing of drain to 12 Fr pigtail on (communication with colon demonstrated; no obvious free communication to rest of peritoneal space). Septic shock with multiorgan failure 09/21/2016 requiring ICU admission with intubation and pressors. 6. S/p a rather challenging sigmoid colectomy with performance of end colostomy (Reid's procedure), takedown of splenic flexure of the colon, lysis of adhesions (60 minutes), and abdominal lavage at [facility] on 09/21/16 7. Colon ischemia (distal transverse colon and descending colon) 8. S/p reentry through recent laparotomy incision with exploration of abdominal cavity, takedown of colostomy, completion left hemicolectomy with resection of distal transverse colon, lysis of adhesions, abdominal lavage, performance of an end colostomy [facility] 09/24/16 9. Stage I/II decubitus pressure ulcers (10/11/2016 [facility] ICU) Subjective: Remain on a ventilator with tracheostomy without major events. More lethargic and essentially non-communicative today. No major noted complaints regarding abdominal pain. Objective: Vitals: See below I's & O's: See below Exam: GENERAL: On exam, the patient was lying in bed and appeared to be breathing comfortably on the vent. No obvious acute distress. Appears emaciated. ABDOMEN: Soft, nontender and nondistended. Incision dressings are clean, dry and intact without any obvious evidence of underlying erythema, edema, discharge , or hernia. Surgical drain ss without any evidence of enteric contents. There are no peritoneal signs or guarding. Ostomy appears to be viable and productive with stool and air in the bag. Perihepatic drains showing pus. SKIN: Skin appears to be pink and feels warm to touch. NEUROLOGIC: Patient is more awake today and a bit more interactive; follows simple commands. Remains on the ventilator with tracheostomy tube. Labs: See below Exam/Review of Systems Vital Signs Vitals Vital Signs Date Time Temp Pulse Resp B/P Pulse Ox O2 Delivery O2 Flow Rate FiO2 10/24/16 12:30 86 20 103/62 10/24/16 12:15 100 10/24/16 10:10 30 10/24/16 09:00 Mechanical Ventilator 10/24/16 08:00 98.3 Intake and Output 10/23/16 10/23/16 10/24/16 15:00 23:00 07:00 Intake Total 331.87 ml 1060.00 ml 641.54 ml Output Total 1400 ml 1465 ml 1120 ml Balance -1068.13 ml -405.00 ml -478.46 ml Results Result Diagram: 10/24/16 0400 10/24/16 0400 ALEXSANDER DUARTE M.D. Oct 24, 2016 14:30
[2016-10-25] VITALS (103 sets, daily range): BP systolic 81–131; BP diastolic 46–104; PULSE 89–113; RESP 14–31
[2016-10-25] MEDS: IPRATROPIUM (HFA) 12.9 GM INHALER INH SCH ×6 (00:20→21:54)
[2016-10-25] MEDS: ALBUTEROL 18 GM INHALER INH SCH ×6 (00:21→21:54)
[2016-10-25] MEDS: FUROSEMIDE 20 MG INJ IV SCH ×5 (00:30→23:43)
[2016-10-25] MEDS: VANCOMYCIN 1.25 GM in SOD CHLORIDE 0.9% 250 ML IVPB SCH (04:27)
[2016-10-25 05:16] LABS: BASOPHILS % 0.2 % (0.0-2.0); EOSINOPHILS # 0.1 10^3/ul (0.0-0.5); HEMATOCRIT 22.2 % (37.0-47.0); HEMOGLOBIN 7.4 g/dl (12.0-16.0); LYMPHOCYTES # 0.6 10^3/ul (0.8-2.9); LYMPHOCYTES % 4.7 % (15.0-51.0); MEAN CORPUSCULAR HEMOGLOBIN 29.4 pg (29.0-33.0); MEAN CORPUSCULAR HGB CONC 33.3 g/dl (32.0-37.0); MEAN CORPUSCULAR VOLUME 88.1 fl (82.0-101.0); MONOCYTE # 0.5 10^3/ul (0.3-0.9); MONOCYTES % 3.3 % (0.0-11.0); NEUTROPHILS % 88.7 % (39.0-77.0); PLATELET COUNT 125 10^3/UL (140-415); RED BLOOD COUNT 2.52 10^6/ul (4.20-5.40); RED CELL DISTRIBUTION WIDTH 18.7 % (11.5-14.5); WHITE BLOOD COUNT 13.5 10^3/ul (4.8-10.8)
[2016-10-25 05:39] LABS: CALCIUM 6.8 mg/dl (8.4-10.2); CREATININE 0.48 mg/dl (0.44-1.00); POTASSIUM 3.5 mmol/L (3.5-5.1)
--- NOTE | 2016-10-25 06:16 | CONS ---
Date/Time of Note Date/Time of Note DATE: 10/25/16 TIME: 06:16 Assessment/Plan Assessment/Plan Additional Assessment/Plan Acute respiratory failure post [employer] Fluid and electrolyte abnormalities Sepsis syndrome Diverticulitis diverticular abscess Delirium Malnutrition Patient remains in the intensive care unit I will schedule a time to speak to patient's ex- Consultation Date/Type/Reason Admit Date/Time Sep 15, 2016 at 21:35 Initial Consult Date 09/21/16 Type of Consultation: Palliative care Exam/Review of Systems Vital Signs Vitals Vital Signs Date Time Temp Pulse Resp B/P Pulse Ox O2 Delivery O2 Flow Rate FiO2 10/25/16 05:28 94 16 100 30 10/25/16 04:30 97/58 Mechanical Ventilator 10/25/16 04:00 99.8 Intake and Output 10/24/16 10/24/16 10/25/16 15:00 23:00 07:00 Intake Total 902.49 ml 749.62 ml 714.0 ml Output Total 800 ml 875 ml 575 ml Balance 102.49 ml -125.38 ml 139.0 ml Exam Respiratory: congested cough, crackles/rales, diminished breath sounds Neurological: confused, focal weakness, lethargic Results Result Diagram: 10/25/16 0400 10/25/16 0400 Results 24 hrs Laboratory Tests Test 10/25/16 04:00 White Blood Count 13.5 H Red Blood Count 2.52 L Hemoglobin 7.4 L Hematocrit 22.2 L Mean Corpuscular Volume 88.1 Mean Corpuscular Hemoglobin 29.4 Mean Corpuscular Hemoglobin Concent 33.3 Red Cell Distribution Width 18.7 H Platelet Count 125 L Mean Platelet Volume 12.0 H Neutrophils % 88.7 H Lymphocytes % 4.7 L Monocytes % 3.3 Eosinophils % 1.0 Basophils % 0.2 Nucleated Red Blood Cells % 0.0 Neutrophils # (Manual) 12 H Lymphocytes # 0.6 L Monocytes # 0.5 Eosinophils # 0.1 Basophils # 0.0 Nucleated Red Blood Cells # 0.0 Sodium Level 137 Potassium Level 3.5 Chloride Level 94 L Carbon Dioxide Level 34 H Anion Gap 13 Blood Urea Nitrogen 27 H Creatinine 0.48 Glucose Level 131 Calcium Level 6.8 L Medications Medications Current Medications Ondansetron HCl (Zofran Inj) 4 mg Q6H PRN IV NAUSEA AND/OR VOMITING Last administered on 09/26/16 09:23; Admin Dose 4 MG; Start 09/16/16 at 00:30 Acetaminophen (Tylenol Tab) 650 mg Q6H PRN PO PAIN LEVEL 1-3 OR FEVER Last administered on 10/08/16 12:47; Admin Dose 650 MG; Start 09/16/16 at 00:30 Polyethylene Glycol 17 gm 17 gm DAILY PO Last administered on 10/24/16 08:50; Admin Dose 17 GM; Start 09/20/16 at 11:00 Norepinephrine/ Dextrose (Levophed/D5W) 500 ml @ 1.87 mls/hr TITRATE IV Last administered on 10/23/16 14:53; Admin Dose 3.75 MLS/HR; Start 09/21/16 at 09:00 Acetaminophen/ Hydrocodone Bitart ([place] (5/325)) 1 tab Q4H PRN PO PAIN LEVEL 4 -7 Last administered on 09/28/16 21:20; Admin Dose 1 TAB; Start 09/21/16 at 15: 00 Acetaminophen/ Hydrocodone Bitart ([place] (5/325)) 2 tab Q4H PRN PO PAIN LEVEL 7 -10 Last administered on 10/21/16 08:49; Admin Dose 2 TAB; Start 09/21/16 at 15 :00 Hydromorphone HCl (Dilaudid) 0.5 mg Q2H PRN IV PAIN Last administered on 09:25; Admin Dose 0.5 MG; Start 09/21/16 at 15:00 Hydromorphone HCl (Dilaudid) 1 mg Q2H PRN IV PAIN Last administered on 08:56; Admin Dose 1 MG; Start 09/21/16 at 15:00 Docusate Sodium (Colace) 100 mg BID PRN PO CONSTIPATION; Start 09/21/16 at 15: 00 Docusate Sodium (Colace Liquid Cup) 100 mg BID NGT Last administered on 21:26; Admin Dose 100 MG; Start 09/22/16 at 21:00 IV Flush (NS 10 ml) 10 ml PRN PRN IV IV PROTOCOL; Start 09/25/16 at 12:00 Spironolactone 50 mg 50 mg DAILY NGT Last administered on 10/24/16 08:50; Admin Dose 50 MG; Start 09/28/16 at 09:00 Dopamine HCl/ Dextrose 250 ml @ 6.053 mls/ hr TITRATE IV Last administered on 09/30/16 04:46; Admin Dose 6.053 MLS/HR; Start 09/29/16 at 11:00 Phenylephrine HCl/ Dextrose (Marcell-Syneph/D5W) 500 ml @ 75 mls/hr TITRATE IV ; Start 09/29/16 at 14:00 Furosemide (Lasix) 20 mg Q6 IV Last administered on 10/25/16 00:30; Admin Dose 20 MG; Start 10/05/16 at 13:00 Lorazepam 0.5 mg 0.5 mg Q6H PRN IV AGITATION/ANXIETY Last administered on 08:00; Admin Dose 0.5 MG; Start 10/05/16 at 23:00 Fentanyl (Sublimaze) 100 ml @ 2.5 mls/hr TITRATE IV Last administered on 06:44; Admin Dose 3 MLS/HR; Start 10/07/16 at 09:30 Nystatin 5 ml 5 ml QID PO Last administered on 10/24/16 21:27; Admin Dose 5 ML ; Start 10/19/16 at 13:00 Meropenem/Sodium Chloride (Merrem 1 Gm/50 ml (Pmx)) 50 ml @ 100 mls/hr Q12 IVPB Last administered on 10/24/16 21:26; Admin Dose 100 MLS/HR; Start at 21:00 Diphenhydramine HCl 25 mg 25 mg Q6H PRN IV PRURITUS Last administered on 10:49; Admin Dose 25 MG; Start 10/23/16 at 10:30 Fluconazole (Diflucan 400 Mg/ NS (Pmx)) 200 ml @ 100 mls/hr TID IVPB Last administered on 10/24/16 21:26; Admin Dose 100 MLS/HR; Start 10/23/16 at 21:00 Loratadine 10 mg 10 mg DAILY PO Last administered on 10/24/16 08:50; Admin Dose 10 MG; Start 10/23/16 at 15:00 Vancomycin HCl/ Sodium Chloride (Vancocin/NS) 250 ml @ 83.333 mls/ hr Q36H IVPB Last administered on 10/25/16 04:27; Admin Dose 83.333 MLS/HR; Start at 04:00 Lansoprazole (Prevacid) 30 mg BID@06,18 NGT Last administered on 10/24/16 18: 59; Admin Dose 30 MG; Start 10/23/16 at 18:00 YANETH VIDAL Oct 25, 2016 06:16
[2016-10-25] MEDS: LANSOPRAZOLE 30 MG CAP NGT SCH ×2 (07:28→20:33)
[2016-10-25] MEDS: BALSAM PERU/CASTOR OIL 60 GM TUBE TOP SCH (09:48)
[2016-10-25] MEDS: FLUCONAZOLE 400 MG/NS (PMX) 200 ML IVPB SCH ×3 (09:48→21:14)
[2016-10-25] MEDS: MEROPENEM 1 GM/50ML(PMX) 50 ML IVPB SCH ×2 (09:48→20:33)
[2016-10-25] MEDS: LORATADINE 10 MG TAB PO SCH (09:49)
[2016-10-25] MEDS: NYSTATIN SUSP 5 ML CUP PO SCH ×4 (09:49→21:14)
[2016-10-25] MEDS: POLYETHYLENE GLYCOL 17 GM PACKET PO SCH (09:49)
[2016-10-25] MEDS: DOCUSATE SODIUM 10 MG/ML (10ML CUP) NGT SCH ×2 (09:49→21:14)
[2016-10-25] MEDS: SPIRONOLACTONE 50 MG TAB NGT SCH (09:49)
[2016-10-25] MEDS: HYDROmorphONE 1 MG/ML SYG IV PRN (09:50)
--- NOTE | 2016-10-25 11:48 | CONS ---
Date/Time of Note Date/Time of Note DATE: 10/25/16 TIME: 11:46 Consult Date/Type/Reason Admit Date/Time Sep 15, 2016 at 21:35 Initial Consult Date 09/21/16 Type of Consultation: Pulmonary Subjective Patient's more alert today comfortable no acute distress. Off vasopressors this morning. Objective Vital Signs Date Time Temp Pulse Resp B/P Pulse Ox O2 Delivery O2 Flow Rate FiO2 10/25/16 08:00 106 10/25/16 06:45 27 99 10/25/16 06:00 117/63 Mechanical Ventilator 10/25/16 05:28 30 10/25/16 04:00 99.8 Intake and Output 10/24/16 10/24/16 10/25/16 14:59 22:59 06:59 Intake Total 900.61 ml 749.63 ml 1102.4 ml Output Total 800 ml 845 ml 860 ml Balance 100.61 ml -95.37 ml 242.4 ml Exam PHYSICAL EXAMINATION GENERAL: Elderly lady on mechanical ventilation via tracheostomy VITAL SIGNS: see below. HEENT: Pupils equal, round, and reactive to light. Tracheostomy site clean and intact. CARDIAC: S1, S2, systolic ejection murmur. CHEST: Diminished air entry bilaterally. ABDOMEN: Mildly distended. Diminished bowel sounds. EXTREMITIES: No cyanosis, clubbing edema +1 NEUROLOGIC: Generalized weakness Results/Medications Result Diagram: 10/25/16 0400 10/25/16 0400 Results 24 hrs Laboratory Tests Test 10/25/16 04:00 White Blood Count 13.5 H Red Blood Count 2.52 L Hemoglobin 7.4 L Hematocrit 22.2 L Mean Corpuscular Volume 88.1 Mean Corpuscular Hemoglobin 29.4 Mean Corpuscular Hemoglobin Concent 33.3 Red Cell Distribution Width 18.7 H Platelet Count 125 L Mean Platelet Volume 12.0 H Neutrophils % 88.7 H Lymphocytes % 4.7 L Monocytes % 3.3 Eosinophils % 1.0 Basophils % 0.2 Nucleated Red Blood Cells % 0.0 Neutrophils # (Manual) 12 H Lymphocytes # 0.6 L Monocytes # 0.5 Eosinophils # 0.1 Basophils # 0.0 Nucleated Red Blood Cells # 0.0 Sodium Level 137 Potassium Level 3.5 Chloride Level 94 L Carbon Dioxide Level 34 H Anion Gap 13 Blood Urea Nitrogen 27 H Creatinine 0.48 Glucose Level 131 Calcium Level 6.8 L Medications Current Medications Ondansetron HCl (Zofran Inj) 4 mg Q6H PRN IV NAUSEA AND/OR VOMITING Last administered on 09/26/16 09:23; Admin Dose 4 MG; Start 09/16/16 at 00:30 Acetaminophen (Tylenol Tab) 650 mg Q6H PRN PO PAIN LEVEL 1-3 OR FEVER Last administered on 10/08/16 12:47; Admin Dose 650 MG; Start 09/16/16 at 00:30 Polyethylene Glycol 17 gm 17 gm DAILY PO Last administered on 10/25/16 09:49; Admin Dose 17 GM; Start 09/20/16 at 11:00 Norepinephrine/ Dextrose (Levophed/D5W) 500 ml @ 1.87 mls/hr TITRATE IV Last administered on 10/23/16 14:53; Admin Dose 3.75 MLS/HR; Start 09/21/16 at 09:00 Acetaminophen/ Hydrocodone Bitart ([place] (5/325)) 1 tab Q4H PRN PO PAIN LEVEL 4 -7 Last administered on 09/28/16 21:20; Admin Dose 1 TAB; Start 09/21/16 at 15: 00 Acetaminophen/ Hydrocodone Bitart ([place] (5/325)) 2 tab Q4H PRN PO PAIN LEVEL 7 -10 Last administered on 10/21/16 08:49; Admin Dose 2 TAB; Start 09/21/16 at 15 :00 Hydromorphone HCl (Dilaudid) 0.5 mg Q2H PRN IV PAIN Last administered on 09:25; Admin Dose 0.5 MG; Start 09/21/16 at 15:00 Hydromorphone HCl (Dilaudid) 1 mg Q2H PRN IV PAIN Last administered on 09:50; Admin Dose 1 MG; Start 09/21/16 at 15:00 Docusate Sodium (Colace) 100 mg BID PRN PO CONSTIPATION; Start 09/21/16 at 15: 00 Docusate Sodium (Colace Liquid Cup) 100 mg BID NGT Last administered on 09:49; Admin Dose 100 MG; Start 09/22/16 at 21:00 IV Flush (NS 10 ml) 10 ml PRN PRN IV IV PROTOCOL; Start 09/25/16 at 12:00 Spironolactone 50 mg 50 mg DAILY NGT Last administered on 10/25/16 09:49; Admin Dose 50 MG; Start 09/28/16 at 09:00 Dopamine HCl/ Dextrose 250 ml @ 6.053 mls/ hr TITRATE IV Last administered on 09/30/16 04:46; Admin Dose 6.053 MLS/HR; Start 09/29/16 at 11:00 Phenylephrine HCl/ Dextrose (Marcell-Syneph/D5W) 500 ml @ 75 mls/hr TITRATE IV ; Start 09/29/16 at 14:00 Furosemide (Lasix) 20 mg Q6 IV Last administered on 10/25/16 07:29; Admin Dose 20 MG; Start 10/05/16 at 13:00 Lorazepam 0.5 mg 0.5 mg Q6H PRN IV AGITATION/ANXIETY Last administered on 08:00; Admin Dose 0.5 MG; Start 10/05/16 at 23:00 Fentanyl (Sublimaze) 100 ml @ 2.5 mls/hr TITRATE IV Last administered on 06:44; Admin Dose 3 MLS/HR; Start 10/07/16 at 09:30 Nystatin 5 ml 5 ml QID PO Last administered on 10/25/16 09:49; Admin Dose 5 ML ; Start 10/19/16 at 13:00 Meropenem/Sodium Chloride (Merrem 1 Gm/50 ml (Pmx)) 50 ml @ 100 mls/hr Q12 IVPB Last administered on 10/25/16 09:48; Admin Dose 100 MLS/HR; Start at 21:00 Diphenhydramine HCl 25 mg 25 mg Q6H PRN IV PRURITUS Last administered on 10:49; Admin Dose 25 MG; Start 10/23/16 at 10:30 Fluconazole (Diflucan 400 Mg/ NS (Pmx)) 200 ml @ 100 mls/hr TID IVPB Last administered on 10/25/16 09:48; Admin Dose 100 MLS/HR; Start 10/23/16 at 21:00 Loratadine 10 mg 10 mg DAILY PO Last administered on 10/25/16 09:49; Admin Dose 10 MG; Start 10/23/16 at 15:00 Vancomycin HCl/ Sodium Chloride (Vancocin/NS) 250 ml @ 83.333 mls/ hr Q36H IVPB Last administered on 10/25/16 04:27; Admin Dose 83.333 MLS/HR; Start at 04:00 Lansoprazole (Prevacid) 30 mg BID@06,18 NGT Last administered on 10/25/16 07: 28; Admin Dose 30 MG; Start 10/23/16 at 18:00 Assessment/Plan Chief Complaint/Hosp Course IMP: 1. Status post septic shock persistent severe leukocytosis. Intermittent vasopressor requirement 2. Ongoing anemia. Patient is currently stable 3. Encephalopathy toxic metabolic, resolving 4. VDRF status post tracheostomy currently stable on SIMV settings. Further weaning on hold 5. Bilateral pulmonary infiltrates 6. 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 7. Status post right-sided pneumothorax following thoracentesis now resolved with chest tube removed 8. Upper extremity vein thrombosis however anticoagulation held secondary to drop in hemoglobin. RECS: 1. Continue surgery recommendations, 2. Continue antibiotics per infectious diseases 3. Vent support continue current SIMV settings hold further weaning until hemodynamically stable 4. Replete K+ and Mg 5. Monitor H&H 6. Continue feeding as tolerated 7. monitor H&H may need endoscopy if hemoglobin continues to drop. Disposition Keep in ICU Problems: DAMIEN GUADARRAMA MD, [facility] Oct 25, 2016 11:48
--- NOTE | 2016-10-25 13:39 | RADRPT ---
Vent Rate: 104 bpm RR Interval: 0 msec RI Interval: 124 msec QRS Duration: 88 msec QT Interval: 386 msec QTC Interval: 507 msec P-R-T Paron: 69 - 68 - [address]/T wave abnormality, consider inferior ischemia ST/T wave abnormality, consider anterolateral ischemia Abnormal ECG Electronically Signed By: Jayce Salmon [id number]
--- NOTE | 2016-10-25 13:51 | CONS ---
Date/Time of Note Date/Time of Note DATE: 10/25/16 TIME: 13:48 Assessment/Plan Assessment/Plan Chief Complaint/Hosp Course SUBJECTIVE DATA: No acute changes overnight per report, patient is resting comfortably, no fevers, she is off Levophed drip since this morning Temperature 99.2 with a T-max of 100.1 pulse 101 respirations 22 blood pressure 116/64 saturation 96% on the vent WBC 13.5 H&H 7.4 and 22.2 platelets 125 neutrophils 88.7 BUN 27 creatinine 0.48 MICROBIOLOGY: Serology for cryptococcal antigen on October 15 came back positive with high titer, CSF fluid on October 23 came back negative. Blood culture on October 20 grew coag-negative staph species, 1/2 sets. Stool for C difficile came back negative. Urine culture negative. INDWELLING: Trach, PEG, right upper extremity PICC line, multiple abdominal drains, DEWER shunt. ANTIMICROBIALS: Vancomycin, meropenem, high-dose fluconazole. PHYSICAL EXAMINATION: GENERAL: Wasted, well-developed, elderly woman, in no distress. HEENT: Head atraumatic, normocephalic. Sclerae anicteric. Buccal mucosa dry. NECK: Supple. Tracheostomy present. LUNGS: Chest rise symmetrical. Breath sounds diminished at bases. HEART: S1, S2. ABDOMEN: Soft, bowel sounds present. EXTREMITIES: No cyanosis. ASSESSMENT: 1. Septic shock. 2. Recurrent perihepatic fluid collection, status post placement of drainage catheter on October 23, 2016, fluid cultures pending. 3. Respiratory failure with extensive pulmonary infiltrates and cavitary lesions per CT of the chest. 4. Status post perforated sigmoid colon repair with end colostomy. 5. Positive cryptococcus serology, etiology unclear, possibly pulmonary source versus intra-abdominal, cerebrospinal fluid sent on October 23 revealed no evidence of cryptococcosis. 6. Status post ventriculoperitoneal shunt externalization with ligation later. 7. Upper extremity deep vein thrombosis. 8. Severe protein-calorie malnutrition. PLAN: The patient remains unchanged, Levophed was discontinued this morning, she is covered with broad-spectrum antibiotics and high dose of fluconazole. We will await for intra-abdominal fluid culture. Continue present care. Follow recommendations of consultants Discussed with staff Dictated By: Corina Estrella NP Problems: Consultation Date/Type/Reason Admit Date/Time Sep 15, 2016 at 21:35 Type of Consultation: ID Exam/Review of Systems Vital Signs Vitals Vital Signs Date Time Temp Pulse Resp B/P Pulse Ox O2 Delivery O2 Flow Rate FiO2 10/25/16 11:45 104 24 112/87 96 10/25/16 11:40 30 10/25/16 10:00 Mechanical Ventilator 10/25/16 08:00 99.2 Intake and Output 10/24/16 10/24/16 10/25/16 15:00 23:00 07:00 Intake Total 902.49 ml 749.62 ml 1039.6 ml Output Total 800 ml 875 ml 730 ml Balance 102.49 ml -125.38 ml 309.6 ml Results Result Diagram: 10/25/16 0400 10/25/16 0400 Results 24 hrs Laboratory Tests Test 10/25/16 04:00 White Blood Count 13.5 H Red Blood Count 2.52 L Hemoglobin 7.4 L Hematocrit 22.2 L Mean Corpuscular Volume 88.1 Mean Corpuscular Hemoglobin 29.4 Mean Corpuscular Hemoglobin Concent 33.3 Red Cell Distribution Width 18.7 H Platelet Count 125 L Mean Platelet Volume 12.0 H Neutrophils % 88.7 H Lymphocytes % 4.7 L Monocytes % 3.3 Eosinophils % 1.0 Basophils % 0.2 Nucleated Red Blood Cells % 0.0 Neutrophils # (Manual) 12 H Lymphocytes # 0.6 L Monocytes # 0.5 Eosinophils # 0.1 Basophils # 0.0 Nucleated Red Blood Cells # 0.0 Sodium Level 137 Potassium Level 3.5 Chloride Level 94 L Carbon Dioxide Level 34 H Anion Gap 13 Blood Urea Nitrogen 27 H Creatinine 0.48 Glucose Level 131 Calcium Level 6.8 L Medications Medications Current Medications Ondansetron HCl (Zofran Inj) 4 mg Q6H PRN IV NAUSEA AND/OR VOMITING Last administered on 09/26/16 09:23; Admin Dose 4 MG; Start 09/16/16 at 00:30 Acetaminophen (Tylenol Tab) 650 mg Q6H PRN PO PAIN LEVEL 1-3 OR FEVER Last administered on 10/08/16 12:47; Admin Dose 650 MG; Start 09/16/16 at 00:30 Polyethylene Glycol 17 gm 17 gm DAILY PO Last administered on 10/25/16 09:49; Admin Dose 17 GM; Start 09/20/16 at 11:00 Norepinephrine/ Dextrose (Levophed/D5W) 500 ml @ 1.87 mls/hr TITRATE IV Last administered on 10/23/16 14:53; Admin Dose 3.75 MLS/HR; Start 09/21/16 at 09:00 Acetaminophen/ Hydrocodone Bitart ([place] (5/325)) 1 tab Q4H PRN PO PAIN LEVEL 4 -7 Last administered on 09/28/16 21:20; Admin Dose 1 TAB; Start 09/21/16 at 15: 00 Acetaminophen/ Hydrocodone Bitart ([place] (5/325)) 2 tab Q4H PRN PO PAIN LEVEL 7 -10 Last administered on 10/21/16 08:49; Admin Dose 2 TAB; Start 09/21/16 at 15 :00 Hydromorphone HCl (Dilaudid) 0.5 mg Q2H PRN IV PAIN Last administered on 09:25; Admin Dose 0.5 MG; Start 09/21/16 at 15:00 Hydromorphone HCl (Dilaudid) 1 mg Q2H PRN IV PAIN Last administered on 09:50; Admin Dose 1 MG; Start 09/21/16 at 15:00 Docusate Sodium (Colace) 100 mg BID PRN PO CONSTIPATION; Start 09/21/16 at 15: 00 Docusate Sodium (Colace Liquid Cup) 100 mg BID NGT Last administered on 09:49; Admin Dose 100 MG; Start 09/22/16 at 21:00 IV Flush (NS 10 ml) 10 ml PRN PRN IV IV PROTOCOL; Start 09/25/16 at 12:00 Spironolactone 50 mg 50 mg DAILY NGT Last administered on 10/25/16 09:49; Admin Dose 50 MG; Start 09/28/16 at 09:00 Dopamine HCl/ Dextrose 250 ml @ 6.053 mls/ hr TITRATE IV Last administered on 09/30/16 04:46; Admin Dose 6.053 MLS/HR; Start 09/29/16 at 11:00 Phenylephrine HCl/ Dextrose ([place]ell-Syneph/D5W) 500 ml @ 75 mls/hr TITRATE IV ; Start 09/29/16 at 14:00 Furosemide (Lasix) 20 mg Q6 IV Last administered on 10/25/16 07:29; Admin Dose 20 MG; Start 10/05/16 at 13:00 Lorazepam 0.5 mg 0.5 mg Q6H PRN IV AGITATION/ANXIETY Last administered on 08:00; Admin Dose 0.5 MG; Start 10/05/16 at 23:00 Fentanyl (Sublimaze) 100 ml @ 2.5 mls/hr TITRATE IV Last administered on 06:44; Admin Dose 3 MLS/HR; Start 10/07/16 at 09:30 Nystatin 5 ml 5 ml QID PO Last administered on 10/25/16 13:37; Admin Dose 5 ML ; Start 10/19/16 at 13:00 Meropenem/Sodium Chloride (Merrem 1 Gm/50 ml (Pmx)) 50 ml @ 100 mls/hr Q12 IVPB Last administered on 10/25/16 09:48; Admin Dose 100 MLS/HR; Start at 21:00 Diphenhydramine HCl 25 mg 25 mg Q6H PRN IV PRURITUS Last administered on 10:49; Admin Dose 25 MG; Start 10/23/16 at 10:30 Fluconazole (Diflucan 400 Mg/ NS (Pmx)) 200 ml @ 100 mls/hr TID IVPB Last administered on 10/25/16 13:37; Admin Dose 100 MLS/HR; Start 10/23/16 at 21:00 Loratadine 10 mg 10 mg DAILY PO Last administered on 10/25/16 09:49; Admin Dose 10 MG; Start 10/23/16 at 15:00 Vancomycin HCl/ Sodium Chloride (Vancocin/NS) 250 ml @ 83.333 mls/ hr Q36H IVPB Last administered on 10/25/16 04:27; Admin Dose 83.333 MLS/HR; Start at 04:00 Lansoprazole (Prevacid) 30 mg BID@06,18 NGT Last administered on 10/25/16 07: 28; Admin Dose 30 MG; Start 10/23/16 at 18:00 CORINA ESTRELLA NP Oct 25, 2016 13:51
--- NOTE | 2016-10-25 14:30 | CONS ---
Date/Time of Note Date/Time of Note DATE: 10/25/16 TIME: 14:28 Assessment/Plan Assessment/Plan Chief Complaint/Hosp Course Acute respiratory failure: now status post tracheostomy Acute diastolic heart failure: Secondary to volume resuscitation in setting of low albumin and third spacing. Significant anasarca. Improved with diuresis. Paroxysmal afib: converted on amiodarone. Currently in sinus rhythm Septic shock: intraabdominal abscess, bilateral pneumonia. S/p sigmoid colectomy. Tension pneumothorax: due to thoracentesis. s/p chest tube 09/30 NSTEMI: Trop mildly elevated likely type II in the setting of septic shock. Echo from 09/18 showed normal EF and no significant valvular disease. Repeat trop normalized Diverticulitis complicated by abscess s/p sigmoid colectomy and now colostomy Coagulopathy: ?DIC. Resolved h/o ICH with [employer] shunt Anemia: status post pRBC transfusion -wean Levophed drip as tolerated -ventilator management per pulmonology Problems: Consultation Date/Type/Reason Admit Date/Time Sep 15, 2016 at 21:35 Initial Consult Date 09/21/16 Type of Consultation: Cardiology 24 HR Interval Summary Free Text/Dictation No significant clinical changes. Not very responsive. On low dose Levophed drip. Detailed Summary Additional Comments Unable to obtain review of systems, patient with altered mental status. Exam/Review of Systems Vital Signs Vitals Vital Signs Date Time Temp Pulse Resp B/P Pulse Ox O2 Delivery O2 Flow Rate FiO2 10/25/16 11:45 104 24 112/87 96 10/25/16 11:40 30 10/25/16 10:00 Mechanical Ventilator 10/25/16 08:00 99.2 Intake and Output 10/24/16 10/24/16 10/25/16 15:00 23:00 07:00 Intake Total 902.49 ml 749.62 ml 1041.47 ml Output Total 800 ml 875 ml 730 ml Balance 102.49 ml -125.38 ml 311.47 ml Exam Constitutional: NAD HEENT: NCAT Neck: No obvious JVD, tracheostomy Respiratory: diminished breath sounds, scattered crackles, no wheezes; chest tube noted Cardiovascular: Tachycardic, regular, no m/r/g, 2+ pitting BLE edema Gastrointestinal: non-tender, soft, grimaces to palpation Extremities: warm, no cyanosis or clubbing, LE SCDs in place Results Result Diagram: 10/25/16 0400 10/25/16 0400 Results 24 hrs Laboratory Tests Test 10/25/16 04:00 White Blood Count 13.5 H Red Blood Count 2.52 L Hemoglobin 7.4 L Hematocrit 22.2 L Mean Corpuscular Volume 88.1 Mean Corpuscular Hemoglobin 29.4 Mean Corpuscular Hemoglobin Concent 33.3 Red Cell Distribution Width 18.7 H Platelet Count 125 L Mean Platelet Volume 12.0 H Neutrophils % 88.7 H Lymphocytes % 4.7 L Monocytes % 3.3 Eosinophils % 1.0 Basophils % 0.2 Nucleated Red Blood Cells % 0.0 Neutrophils # (Manual) 12 H Lymphocytes # 0.6 L Monocytes # 0.5 Eosinophils # 0.1 Basophils # 0.0 Nucleated Red Blood Cells # 0.0 Sodium Level 137 Potassium Level 3.5 Chloride Level 94 L Carbon Dioxide Level 34 H Anion Gap 13 Blood Urea Nitrogen 27 H Creatinine 0.48 Glucose Level 131 Calcium Level 6.8 L Medications Medications Current Medications Ondansetron HCl (Zofran Inj) 4 mg Q6H PRN IV NAUSEA AND/OR VOMITING Last administered on 09/26/16 09:23; Admin Dose 4 MG; Start 09/16/16 at 00:30 Acetaminophen (Tylenol Tab) 650 mg Q6H PRN PO PAIN LEVEL 1-3 OR FEVER Last administered on 10/08/16 12:47; Admin Dose 650 MG; Start 09/16/16 at 00:30 Polyethylene Glycol 17 gm 17 gm DAILY PO Last administered on 10/25/16 09:49; Admin Dose 17 GM; Start 09/20/16 at 11:00 Norepinephrine/ Dextrose (Levophed/D5W) 500 ml @ 1.87 mls/hr TITRATE IV Last administered on 10/23/16 14:53; Admin Dose 3.75 MLS/HR; Start 09/21/16 at 09:00 Acetaminophen/ Hydrocodone Bitart ([place] (5/325)) 1 tab Q4H PRN PO PAIN LEVEL 4 -7 Last administered on 09/28/16 21:20; Admin Dose 1 TAB; Start 09/21/16 at 15: 00 Acetaminophen/ Hydrocodone Bitart ([place] (5/325)) 2 tab Q4H PRN PO PAIN LEVEL 7 -10 Last administered on 10/21/16 08:49; Admin Dose 2 TAB; Start 09/21/16 at 15 :00 Hydromorphone HCl (Dilaudid) 0.5 mg Q2H PRN IV PAIN Last administered on 09:25; Admin Dose 0.5 MG; Start 09/21/16 at 15:00 Hydromorphone HCl (Dilaudid) 1 mg Q2H PRN IV PAIN Last administered on 09:50; Admin Dose 1 MG; Start 09/21/16 at 15:00 Docusate Sodium (Colace) 100 mg BID PRN PO CONSTIPATION; Start 09/21/16 at 15: 00 Docusate Sodium (Colace Liquid Cup) 100 mg BID NGT Last administered on 09:49; Admin Dose 100 MG; Start 09/22/16 at 21:00 IV Flush (NS 10 ml) 10 ml PRN PRN IV IV PROTOCOL; Start 09/25/16 at 12:00 Spironolactone 50 mg 50 mg DAILY NGT Last administered on 10/25/16 09:49; Admin Dose 50 MG; Start 09/28/16 at 09:00 Dopamine HCl/ Dextrose 250 ml @ 6.053 mls/ hr TITRATE IV Last administered on 09/30/16 04:46; Admin Dose 6.053 MLS/HR; Start 09/29/16 at 11:00 Phenylephrine HCl/ Dextrose ([place]-Syneph/D5W) 500 ml @ 75 mls/hr TITRATE IV ; Start 09/29/16 at 14:00 Furosemide (Lasix) 20 mg Q6 IV Last administered on 10/25/16 07:29; Admin Dose 20 MG; Start 10/05/16 at 13:00 Lorazepam 0.5 mg 0.5 mg Q6H PRN IV AGITATION/ANXIETY Last administered on 08:00; Admin Dose 0.5 MG; Start 10/05/16 at 23:00 Fentanyl (Sublimaze) 100 ml @ 2.5 mls/hr TITRATE IV Last administered on 06:44; Admin Dose 3 MLS/HR; Start 10/07/16 at 09:30 Nystatin 5 ml 5 ml QID PO Last administered on 10/25/16 13:37; Admin Dose 5 ML ; Start 10/19/16 at 13:00 Meropenem/Sodium Chloride (Merrem 1 Gm/50 ml (Pmx)) 50 ml @ 100 mls/hr Q12 IVPB Last administered on 10/25/16 09:48; Admin Dose 100 MLS/HR; Start at 21:00 Diphenhydramine HCl 25 mg 25 mg Q6H PRN IV PRURITUS Last administered on 10:49; Admin Dose 25 MG; Start 10/23/16 at 10:30 Fluconazole (Diflucan 400 Mg/ NS (Pmx)) 200 ml @ 100 mls/hr TID IVPB Last administered on 10/25/16 13:37; Admin Dose 100 MLS/HR; Start 10/23/16 at 21:00 Loratadine 10 mg 10 mg DAILY PO Last administered on 10/25/16 09:49; Admin Dose 10 MG; Start 10/23/16 at 15:00 Vancomycin HCl/ Sodium Chloride (Vancocin/NS) 250 ml @ 83.333 mls/ hr Q36H IVPB Last administered on 10/25/16 04:27; Admin Dose 83.333 MLS/HR; Start at 04:00 Lansoprazole (Prevacid) 30 mg BID@06,18 NGT Last administered on 10/25/16 07: 28; Admin Dose 30 MG; Start 10/23/16 at 18:00 AVINASH FERNANDEZ MD Oct 25, 2016 14:30
--- NOTE | 2016-10-25 15:08 | PN ---
Date/Time of Note Date/Time of Note DATE: 10/25/16 TIME: 15:05 Assessment/Plan Lines/Catheters IV Catheter Type (from Nrs): PICC Line Shore in Place (from Nrs): Yes Assessment/Plan Assessment/Plan [facility] Progress Note Date of Service: 10/25/2016 Place of service: [facility] ICU Today's Assessment & Plan: Overall still improving, all be it slowly. No evidence for active hemorrhage. No other major uncontrolled issue. No indicatio for acute surgical intervention. Previous assessment that still applies today: Overall stable but with failure to thrive. Abdomen continues to remain benign. Trach and PEG being used. Drainage of perihepatic fluid collection ongoing. Of great importance is adequate nutrition and I recommended that we continue the feeds through the PEG with a goal of 60 cc/h with guidance from our dietitian colleagues. With above assessment, I recommended the following for today: 1. Continue current management 2. Likely LTAC placement early next week 3. Wean off vent 4. Keep in ICU for now Thank you again for your great care of this very pleasant patient and wonderful family. If there are any questions, please feel free to call me at [phone]. Nature of presenting problem: High severity Please note that, given the extensive number of diagnoses or management options , the extensive amount and/or complexity of data needed to be reviewed, and I risk of complications and/or morbidity or mortality, this qualifies as high complexity type of decision-making. Disclaimer: Inadvertent spelling and grammatical errors are likely due to EHR/ dictation software use and do not reflect on the quality of delivered patient care. Also, please note that the electronic time recorded on this node does not necessarily reflect the actual time of the visit. Updated Clinical Summary: A very pleasant 70-year-old lady without significant known past medical history other than a HOG DROPPER shunt placement many years ago which she did not remember or report, presenting with what appears to be a sigmoid colon abscess or pericolonic abscess, which seemed to be a complication of diverticulitis. S/p IR drainage 09/09/16 with removal of 20 cc pus and placement of a 10 Fr. pigtail catheter at [facility]. D/c home 09/12/16. Re-presented to [facility] ED 09/15/16 after being diverted from [facility] (due to internal disaster diversion) where CT was done showing adequate placement of the percutaneous drain near the sigmoid colon and decompressed sigmoid colon abscess, no obvious free air or significant spillage of stool in the abdominal cavity, and incidental finding of tail of the HOG DROPPER shunt in the pelvis (new from right upper quadrant position of the same drain on the CT scan at [facility]). Transfer to [facility] 09/15/2016 for further cares. S/p upsizing of drain to 12 Fr pigtail on 09/17/16 (communication with colon demonstrated; no obvious free communication to rest of peritoneal space). Patient decompensated in the early hours of the morning on 09/21/2016 and had to be transferred to the intensive care unit with need for endotracheal tube intubation, central line placement, and resuscitation for treatment of shock with lactic acidosis and evidence of peritonitis and free air on the new chest, abdomen, and pelvis CT scan. S/p a rather challenging sigmoid colectomy with performance of end colostomy (Reid's procedure), takedown of splenic flexure of the colon, lysis of adhesions (60 minutes), and abdominal lavage at [facility] on 09/21/16; diagnosis of colon ischemia (distal transverse colon and descending colon) during reentry through recent laparotomy incision with exploration of abdominal cavity, takedown of colostomy, completion left hemicolectomy with resection of distal transverse colon, lysis of adhesions, abdominal lavage, performance of an end colostomy [facility] 09/24/16. Extubated post op evening of 09/25/16. Decompensation with intubation and restart of pressors . Right-sided pneumothorax after drainage of right pleural effusion requiring chest tube placement 09/30/2016. Extubated 10/03/2016. Decompensation with reintubation 10/06/16. Tracheostomy and PEG placed. Perihepatic fluid collections drained 10/13/2016. Cryptococcal antigen found in the urine 2016. Antifungal therapy started. S/p new perc drain perihepatic 10/23/16. Comorbidities: 1. Perforated sigmoid colon (see below) 2. Status post ventriculoperitoneal shunt placement. 3. Status post prior hysterectomy and bilateral salpingo-oophorectomy through Pfannenstiel incision 4. S/p IR drainage 09/09/16 with removal of 20 cc pus and placement of a 10 Fr. pigtail catheter at [facility]. 5. Readmission to [facility] 09/15/16 with upsizing of drain to 12 Fr pigtail on (communication with colon demonstrated; no obvious free communication to rest of peritoneal space). Septic shock with multiorgan failure 09/21/2016 requiring ICU admission with intubation and pressors. 6. S/p a rather challenging sigmoid colectomy with performance of end colostomy (Reid's procedure), takedown of splenic flexure of the colon, lysis of adhesions (60 minutes), and abdominal lavage at [facility] on 09/21/16 7. Colon ischemia (distal transverse colon and descending colon) 8. S/p reentry through recent laparotomy incision with exploration of abdominal cavity, takedown of colostomy, completion left hemicolectomy with resection of distal transverse colon, lysis of adhesions, abdominal lavage, performance of an end colostomy [facility] 09/24/16 9. Stage I/II decubitus pressure ulcers (10/11/2016 [facility] ICU) Subjective: Remain on a ventilator with tracheostomy without major events. Less lethargic and still essentially non-communicative. No major noted complaints regarding abdominal pain. Objective: Vitals: See below I's & O's: See below Exam: GENERAL: On exam, the patient was lying in bed and appeared to be breathing comfortably on the vent. No obvious acute distress. Appears emaciated. ABDOMEN: Soft, nontender and nondistended. Incision dressings are clean, dry and intact without any obvious evidence of underlying erythema, edema, discharge , or hernia. Surgical drain ss without any evidence of enteric contents. There are no peritoneal signs or guarding. Ostomy appears to be viable and productive with stool and air in the bag. Perihepatic drains showing pus and ss output. No bile. SKIN: Skin appears to be pink and feels warm to touch. NEUROLOGIC: Patient is more awake today and a bit more interactive; follows simple commands. Remains on the ventilator with tracheostomy tube. Labs: See below Exam/Review of Systems Vital Signs Vitals Vital Signs Date Time Temp Pulse Resp B/P Pulse Ox O2 Delivery O2 Flow Rate FiO2 10/25/16 12:00 97 10/25/16 11:45 24 112/87 96 10/25/16 11:40 30 10/25/16 10:00 Mechanical Ventilator 10/25/16 08:00 99.2 Intake and Output 10/24/16 10/24/16 10/25/16 15:00 23:00 07:00 Intake Total 902.49 ml 749.62 ml 1041.47 ml Output Total 800 ml 875 ml 730 ml Balance 102.49 ml -125.38 ml 311.47 ml Results Result Diagram: 10/25/16 0400 10/25/16 0400 ALEXSANDER DUARTE M.D. Oct 25, 2016 15:08
--- NOTE | 2016-10-25 15:46 | PN ---
Date/Time of Note Date/Time of Note DATE: 10/25/16 TIME: 15:45 Assessment/Plan VTE Prophylaxis VTE Prophylaxis Intervention: SCD's Assessment/Plan Chief Complaint/Hosp Course 70 yo F with h/o hydrocephalus with previous VPS admitted for sigmoid abscess. hospital stay cb sepsis, colon perforation with multiple abd fluid collections , also recurrent respiratory failure warranting trach, pleural effusion with thora c/b by PTX (chest tube removed) 1. 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 Ventilator dependent respiratory failure: sp trach 3 Left pleural effusion: Status post thoracentesis, complicated with pneumothorax status post placement of a chest tube, removal of chest tube per pulmonology CHEST TUBE PULLED 8.11 4. History of ICH, s/p VPS placement, with subsequent externalization of drain : Neurosurg on board -ID following closely. Pt with +serum crypto Ag, no evidence of crypto in CSF, ID narrowed antifungal to diflucan VPS ligated 8.11 BY NS 5. Paroxysmal A. fib: Now in sinus rhythm status post amiodarone. Cardiology on board 6. Acute renal insufficiency: Resolved. 7. s/p NSTEMI: Likely secondary to septic shock. 8. Volume overload state: HOLD DIURESIS GIVEN LOW BPS 9. Anemia: unclear etio of acute on chronic. 10. Dysphagia Status post PEG tube placement 11. RUE DVT: hold lovenox given anemia Prophylaxis: SCDs Problems: Subjective 24 Hr Interval Summary Subjective hx not possible: pt non-verbal Exam/Review of Systems Vital Signs Vitals Vital Signs Date Time Temp Pulse Resp B/P Pulse Ox O2 Delivery O2 Flow Rate FiO2 10/25/16 15:00 96 22 94/65 100 Mechanical Ventilator 10/25/16 12:00 99.5 10/25/16 11:40 30 Intake and Output 10/24/16 10/24/16 10/25/16 15:00 23:00 07:00 Intake Total 902.49 ml 749.62 ml 1101.47 ml Output Total 800 ml 875 ml 770 ml Balance 102.49 ml -125.38 ml 331.47 ml Exam Constitutional: non-verbal Respiratory: clear to auscultation Cardiovascular: regular rate and rhythm Gastrointestinal: soft, No distended Musculoskeletal: nl extremities to inspection Results Result Diagram: 10/25/16 0400 10/25/16 0400 Results 24 hrs Laboratory Tests Test 10/25/16 04:00 White Blood Count 13.5 H Red Blood Count 2.52 L Hemoglobin 7.4 L Hematocrit 22.2 L Mean Corpuscular Volume 88.1 Mean Corpuscular Hemoglobin 29.4 Mean Corpuscular Hemoglobin Concent 33.3 Red Cell Distribution Width 18.7 H Platelet Count 125 L Mean Platelet Volume 12.0 H Neutrophils % 88.7 H Lymphocytes % 4.7 L Monocytes % 3.3 Eosinophils % 1.0 Basophils % 0.2 Nucleated Red Blood Cells % 0.0 Neutrophils # (Manual) 12 H Lymphocytes # 0.6 L Monocytes # 0.5 Eosinophils # 0.1 Basophils # 0.0 Nucleated Red Blood Cells # 0.0 Sodium Level 137 Potassium Level 3.5 Chloride Level 94 L Carbon Dioxide Level 34 H Anion Gap 13 Blood Urea Nitrogen 27 H Creatinine 0.48 Glucose Level 131 Calcium Level 6.8 L Medications Medications Current Medications Ondansetron HCl (Zofran Inj) 4 mg Q6H PRN IV NAUSEA AND/OR VOMITING Last administered on 09/26/16 09:23; Admin Dose 4 MG; Start 09/16/16 at 00:30 Acetaminophen (Tylenol Tab) 650 mg Q6H PRN PO PAIN LEVEL 1-3 OR FEVER Last administered on 10/08/16 12:47; Admin Dose 650 MG; Start 09/16/16 at 00:30 Polyethylene Glycol 17 gm 17 gm DAILY PO Last administered on 10/25/16 09:49; Admin Dose 17 GM; Start 09/20/16 at 11:00 Norepinephrine/ Dextrose (Levophed/D5W) 500 ml @ 1.87 mls/hr TITRATE IV Last administered on 10/23/16 14:53; Admin Dose 3.75 MLS/HR; Start 09/21/16 at 09:00 Acetaminophen/ Hydrocodone Bitart ([place] (5/325)) 1 tab Q4H PRN PO PAIN LEVEL 4 -7 Last administered on 09/28/16 21:20; Admin Dose 1 TAB; Start 09/21/16 at 15: 00 Acetaminophen/ Hydrocodone Bitart ([place] (5/325)) 2 tab Q4H PRN PO PAIN LEVEL 7 -10 Last administered on 10/21/16 08:49; Admin Dose 2 TAB; Start 09/21/16 at 15 :00 Hydromorphone HCl (Dilaudid) 0.5 mg Q2H PRN IV PAIN Last administered on 09:25; Admin Dose 0.5 MG; Start 09/21/16 at 15:00 Hydromorphone HCl (Dilaudid) 1 mg Q2H PRN IV PAIN Last administered on 09:50; Admin Dose 1 MG; Start 09/21/16 at 15:00 Docusate Sodium (Colace) 100 mg BID PRN PO CONSTIPATION; Start 09/21/16 at 15: 00 Docusate Sodium (Colace Liquid Cup) 100 mg BID NGT Last administered on 09:49; Admin Dose 100 MG; Start 09/22/16 at 21:00 IV Flush (NS 10 ml) 10 ml PRN PRN IV IV PROTOCOL; Start 09/25/16 at 12:00 Spironolactone 50 mg 50 mg DAILY NGT Last administered on 10/25/16 09:49; Admin Dose 50 MG; Start 09/28/16 at 09:00 Dopamine HCl/ Dextrose 250 ml @ 6.053 mls/ hr TITRATE IV Last administered on 09/30/16 04:46; Admin Dose 6.053 MLS/HR; Start 09/29/16 at 11:00 Phenylephrine HCl/ Dextrose (Marcell-Syneph/D5W) 500 ml @ 75 mls/hr TITRATE IV ; Start 09/29/16 at 14:00 Furosemide (Lasix) 20 mg Q6 IV Last administered on 10/25/16 13:00; Admin Dose 20 MG; Start 10/05/16 at 13:00 Lorazepam 0.5 mg 0.5 mg Q6H PRN IV AGITATION/ANXIETY Last administered on 08:00; Admin Dose 0.5 MG; Start 10/05/16 at 23:00 Fentanyl (Sublimaze) 100 ml @ 2.5 mls/hr TITRATE IV Last administered on 06:44; Admin Dose 3 MLS/HR; Start 10/07/16 at 09:30 Nystatin 5 ml 5 ml QID PO Last administered on 10/25/16 13:37; Admin Dose 5 ML ; Start 10/19/16 at 13:00 Meropenem/Sodium Chloride (Merrem 1 Gm/50 ml (Pmx)) 50 ml @ 100 mls/hr Q12 IVPB Last administered on 10/25/16 09:48; Admin Dose 100 MLS/HR; Start at 21:00 Diphenhydramine HCl 25 mg 25 mg Q6H PRN IV PRURITUS Last administered on 10:49; Admin Dose 25 MG; Start 10/23/16 at 10:30 Fluconazole (Diflucan 400 Mg/ NS (Pmx)) 200 ml @ 100 mls/hr TID IVPB Last administered on 10/25/16 13:37; Admin Dose 100 MLS/HR; Start 10/23/16 at 21:00 Loratadine 10 mg 10 mg DAILY PO Last administered on 10/25/16 09:49; Admin Dose 10 MG; Start 10/23/16 at 15:00 Vancomycin HCl/ Sodium Chloride (Vancocin/NS) 250 ml @ 83.333 mls/ hr Q36H IVPB Last administered on 10/25/16 04:27; Admin Dose 83.333 MLS/HR; Start at 04:00 Lansoprazole (Prevacid) 30 mg BID@06,18 NGT Last administered on 10/25/16 07: 28; Admin Dose 30 MG; Start 10/23/16 at 18:00 DALE RODARTE Oct 25, 2016 15:46
--- NOTE | 2016-10-25 20:37 | PN ---
Date/Time of Note Date/Time of Note DATE: 10/25/16 TIME: 20:36 Assessment/Plan Assessment/Plan Chief Complaint/Hosp Course This is a 70-year-old female admitted with a perforated colon and contained abscess underwent a drainage procedure on further colonic procedures patient is currently in the intensive care unit unable to come off the ventilator secondary to multiple medical problems Patient was extubated and had to be input intubated again has been treated for septic shock lactic acidosis peritonitis currently has an end colostomy Helio pouch and has undergone colon resection patient also has a right-sided chest tube for a pneumothorax She was reintubated again Status post tracheostomy We will continue pulmonary toilet Trach care Vent support Pulmonary toilet Patient DNR Problems: Subjective 24 Hr Interval Summary Constitutional: improved Pain Control: mild Exam/Review of Systems Vital Signs Vitals Vital Signs Date Time Temp Pulse Resp B/P Pulse Ox O2 Delivery O2 Flow Rate FiO2 10/25/16 19:28 107 26 100 30 10/25/16 18:45 112/60 10/25/16 16:00 98.9 10/25/16 15:00 Mechanical Ventilator Intake and Output 10/24/16 10/24/16 10/25/16 15:00 23:00 07:00 Intake Total 902.49 ml 749.62 ml 1101.47 ml Output Total 800 ml 875 ml 770 ml Balance 102.49 ml -125.38 ml 331.47 ml Exam Neck: non-tender, supple Respiratory: clear to auscultation, normal air movement Cardiovascular: nl pulses, regular rate and rhythm Gastrointestinal: nl liver, spleen, non-tender, soft Results Result Diagram: 10/25/16 0400 10/25/16399 GIL PINEDA MD Oct 25, 2016 20:37
[2016-10-26] VITALS (105 sets, daily range): BP systolic 74–121; BP diastolic 46–82; PULSE 91–109; RESP 14–28
[2016-10-26] MEDS: IPRATROPIUM (HFA) 12.9 GM INHALER INH SCH ×6 (01:21→21:16)
[2016-10-26] MEDS: ALBUTEROL 18 GM INHALER INH SCH ×6 (01:21→21:16)
[2016-10-26] MEDS: FUROSEMIDE 20 MG INJ IV SCH ×2 (06:12→12:00)
[2016-10-26] MEDS: LANSOPRAZOLE 30 MG CAP NGT SCH ×2 (06:12→18:00)
[2016-10-26] MEDS: FLUCONAZOLE 400 MG/NS (PMX) 200 ML IVPB SCH ×3 (09:58→21:43)
[2016-10-26] MEDS: NYSTATIN SUSP 5 ML CUP PO SCH ×4 (09:59→21:21)
[2016-10-26] MEDS: MEROPENEM 1 GM/50ML(PMX) 50 ML IVPB SCH ×2 (09:59→20:59)
[2016-10-26] MEDS: DOCUSATE SODIUM 10 MG/ML (10ML CUP) NGT SCH ×2 (09:59→21:21)
[2016-10-26] MEDS: POLYETHYLENE GLYCOL 17 GM PACKET PO SCH (09:59)
[2016-10-26] MEDS: SPIRONOLACTONE 50 MG TAB NGT SCH (09:59)
[2016-10-26] MEDS: BALSAM PERU/CASTOR OIL 60 GM TUBE TOP SCH (09:59)
[2016-10-26] MEDS: LORATADINE 10 MG TAB PO SCH (09:59)
[2016-10-26] MEDS: HYDROmorphONE 1 MG/ML SYG IV PRN ×2 (10:05→17:09)
--- NOTE | 2016-10-26 11:05 | PN ---
Date/Time of Note Date/Time of Note DATE: 10/26/16 TIME: 11:05 Assessment/Plan VTE Prophylaxis VTE Prophylaxis Intervention: SCD's Assessment/Plan Chief Complaint/Hosp Course 70 yo F with h/o hydrocephalus with previous VPS admitted for sigmoid abscess. hospital stay cb sepsis, colon perforation with multiple abd fluid collections , also recurrent respiratory failure warranting trach, pleural effusion with thora c/b by PTX (chest tube removed) 1. 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 Ventilator dependent respiratory failure: sp trach 3 Left pleural effusion: Status post thoracentesis, complicated with pneumothorax status post placement of a chest tube, removal of chest tube per pulmonology CHEST TUBE PULLED 8.11 4. History of ICH, s/p VPS placement, with subsequent externalization of drain : Neurosurg on board -ID following closely. Pt with +serum crypto Ag, no evidence of crypto in CSF, ID narrowed antifungal to diflucan VPS ligated 8.11 BY NS 5. Paroxysmal A. fib: Now in sinus rhythm status post amiodarone. Cardiology on board 6. Acute renal insufficiency: Resolved. 7. s/p NSTEMI: Likely secondary to septic shock. 8. Volume overload state: HOLD DIURESIS GIVEN LOW BPS 9. Anemia: unclear etio of acute on chronic. 10. Dysphagia Status post PEG tube placement 11. RUE DVT: hold lovenox given anemia Prophylaxis: SCDs Problems: Subjective 24 Hr Interval Summary Subjective hx not possible: pt non-verbal Exam/Review of Systems Vital Signs Vitals Vital Signs Date Time Temp Pulse Resp B/P Pulse Ox O2 Delivery O2 Flow Rate FiO2 10/26/16 08:00 98 10/26/16 06:45 20 98/58 100 10/26/16 06:00 Mechanical Ventilator 10/26/16 05:24 30 10/26/16 04:00 99.4 Intake and Output 10/25/16 10/25/16 10/26/16 15:00 23:00 07:00 Intake Total 1147.60 ml 1193.28 ml 1428.48 ml Output Total 320 ml 575 ml 1250 ml Balance 827.60 ml 618.28 ml 178.48 ml Exam Constitutional: non-verbal Respiratory: clear to auscultation Cardiovascular: regular rate and rhythm Gastrointestinal: soft, No distended Musculoskeletal: nl extremities to inspection Results Result Diagram: 10/25/1639910/25/16399 Medications Medications Current Medications Ondansetron HCl (Zofran Inj) 4 mg Q6H PRN IV NAUSEA AND/OR VOMITING Last administered on 09/26/16 09:23; Admin Dose 4 MG; Start 09/16/16 at 00:30 Acetaminophen (Tylenol Tab) 650 mg Q6H PRN PO PAIN LEVEL 1-3 OR FEVER Last administered on 10/08/16 12:47; Admin Dose 650 MG; Start 09/16/16 at 00:30 Polyethylene Glycol 17 gm 17 gm DAILY PO Last administered on 10/26/16 09:59; Admin Dose 17 GM; Start 09/20/16 at 11:00 Norepinephrine/ Dextrose (Levophed/D5W) 500 ml @ 1.87 mls/hr TITRATE IV Last administered on 10/26/16 01:37; Admin Dose 1.31 MLS/HR; Start 09/21/16 at 09:00 Acetaminophen/ Hydrocodone Bitart ([place] (5/325)) 1 tab Q4H PRN PO PAIN LEVEL 4 -7 Last administered on 09/28/16 21:20; Admin Dose 1 TAB; Start 09/21/16 at 15: 00 Acetaminophen/ Hydrocodone Bitart ([place] (5/325)) 2 tab Q4H PRN PO PAIN LEVEL 7 -10 Last administered on 10/21/16 08:49; Admin Dose 2 TAB; Start 09/21/16 at 15 :00 Hydromorphone HCl (Dilaudid) 0.5 mg Q2H PRN IV PAIN Last administered on 09:25; Admin Dose 0.5 MG; Start 09/21/16 at 15:00 Hydromorphone HCl (Dilaudid) 1 mg Q2H PRN IV PAIN Last administered on 10:05; Admin Dose 1 MG; Start 09/21/16 at 15:00 Docusate Sodium (Colace) 100 mg BID PRN PO CONSTIPATION; Start 09/21/16 at 15: 00 Docusate Sodium (Colace Liquid Cup) 100 mg BID NGT Last administered on 09:59; Admin Dose 100 MG; Start 09/22/16 at 21:00 IV Flush (NS 10 ml) 10 ml PRN PRN IV IV PROTOCOL; Start 09/25/16 at 12:00 Spironolactone 50 mg 50 mg DAILY NGT Last administered on 10/26/16 09:59; Admin Dose 50 MG; Start 09/28/16 at 09:00 Dopamine HCl/ Dextrose 250 ml @ 6.053 mls/ hr TITRATE IV Last administered on 09/30/16 04:46; Admin Dose 6.053 MLS/HR; Start 09/29/16 at 11:00 Phenylephrine HCl/ Dextrose (Marcell-Syneph/D5W) 500 ml @ 75 mls/hr TITRATE IV ; Start 09/29/16 at 14:00 Furosemide (Lasix) 20 mg Q6 IV Last administered on 10/26/16 06:12; Admin Dose 20 MG; Start 10/05/16 at 13:00 Lorazepam 0.5 mg 0.5 mg Q6H PRN IV AGITATION/ANXIETY Last administered on 08:00; Admin Dose 0.5 MG; Start 10/05/16 at 23:00 Fentanyl (Sublimaze) 100 ml @ 2.5 mls/hr TITRATE IV Last administered on 06:44; Admin Dose 3 MLS/HR; Start 10/07/16 at 09:30 Nystatin 5 ml 5 ml QID PO Last administered on 10/26/16 09:59; Admin Dose 5 ML ; Start 10/19/16 at 13:00 Meropenem/Sodium Chloride (Merrem 1 Gm/50 ml (Pmx)) 50 ml @ 100 mls/hr Q12 IVPB Last administered on 10/26/16 09:59; Admin Dose 100 MLS/HR; Start at 21:00 Diphenhydramine HCl 25 mg 25 mg Q6H PRN IV PRURITUS Last administered on 10:49; Admin Dose 25 MG; Start 10/23/16 at 10:30 Fluconazole (Diflucan 400 Mg/ NS (Pmx)) 200 ml @ 100 mls/hr TID IVPB Last administered on 10/26/16 09:58; Admin Dose 100 MLS/HR; Start 10/23/16 at 21:00 Loratadine 10 mg 10 mg DAILY PO Last administered on 10/26/16 09:59; Admin Dose 10 MG; Start 10/23/16 at 15:00 Vancomycin HCl/ Sodium Chloride (Vancocin/NS) 250 ml @ 83.333 mls/ hr Q36H IVPB Last administered on 10/25/16 04:27; Admin Dose 83.333 MLS/HR; Start at 04:00 Lansoprazole (Prevacid) 30 mg BID@06,18 NGT Last administered on 10/26/16 06: 12; Admin Dose 30 MG; Start 10/23/16 at 18:00 DALE RODARTE Oct 26, 2016 11:05
--- NOTE | 2016-10-26 11:36 | CONS ---
Date/Time of Note Date/Time of Note DATE: 10/26/16 TIME: 11:25 Assessment/Plan Assessment/Plan Additional Assessment/Plan Ventilator setting; SIMV of 10, pressure support of 10, tidal volume 500, PEEP of 5, 30% FiO2. Patient currently on Levophed at 0.5 mics per minute. Assessment and recommendations; 1. Patient admitted with sepsis from bowel perforation status post colostomy. 2. Mild hypotension, currently on low-dose Levophed. 3. Anemia. 4. Thrombocytopenia. 5. Right upper extremity DVT, patient cannot be anticoagulated because of anemia and thrombocytopenia. 6. Status post right pneumothorax from thoracentesis status post chest tube removal. 7. Poor mental status. Continue current treatment. Prognosis is poor. Consultation Date/Type/Reason Admit Date/Time Sep 15, 2016 at 21:35 Initial Consult Date 09/21/16 Type of Consultation: Pulmonary/critical care 24 HR Interval Summary Free Text/Dictation Patient condition remains tenuous at best. Patient does have waxing and waning mental status. However has remained hemodynamically stable. General exam; elderly woman, on ventilator via tracheostomy. Currently in no distress. Exam/Review of Systems Vital Signs Vitals Vital Signs Date Time Temp Pulse Resp B/P Pulse Ox O2 Delivery O2 Flow Rate FiO2 10/26/16 11:05 92 22 100 30 10/26/16 06:45 98/58 10/26/16 06:00 Mechanical Ventilator 10/26/16 04:00 99.4 Intake and Output 10/25/16 10/25/16 10/26/16 15:00 23:00 07:00 Intake Total 1147.60 ml 1193.28 ml 1428.48 ml Output Total 320 ml 575 ml 1250 ml Balance 827.60 ml 618.28 ml 178.48 ml Exam HEENT exam; supple neck, no JVD. No lymphadenopathy. Midline trachea. No thyromegaly. Tracheostomy in place. Patient has a multiple carious teeth. Chest exam; diminished but clear breath sounds. S1-S2 audible, no murmurs. Regular rhythm. Abdomen exam; soft, no organomegaly. G-tube in place. Colostomy in place. Bowel sounds audible. Extremity exam; trace edema. 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 Results Result Diagram: 8/18/17 0400 8/18/17 0400 Medications Medications Current Medications Ondansetron HCl (Zofran Inj) 4 mg Q6H PRN IV NAUSEA AND/OR VOMITING Last administered on 09/26/16 09:23; Admin Dose 4 MG; Start 09/16/16 at 00:30 Acetaminophen (Tylenol Tab) 650 mg Q6H PRN PO PAIN LEVEL 1-3 OR FEVER Last administered on 10/08/16 12:47; Admin Dose 650 MG; Start 09/16/16 at 00:30 Polyethylene Glycol 17 gm 17 gm DAILY PO Last administered on 10/26/16 09:59; Admin Dose 17 GM; Start 09/20/16 at 11:00 Norepinephrine/ Dextrose (Levophed/D5W) 500 ml @ 1.87 mls/hr TITRATE IV Last administered on 10/26/16 01:37; Admin Dose 1.31 MLS/HR; Start 09/21/16 at 09:00 Acetaminophen/ Hydrocodone Bitart ([place] (5/325)) 1 tab Q4H PRN PO PAIN LEVEL 4 -7 Last administered on 09/28/16 21:20; Admin Dose 1 TAB; Start 09/21/16 at 15: 00 Acetaminophen/ Hydrocodone Bitart ([place] (5/325)) 2 tab Q4H PRN PO PAIN LEVEL 7 -10 Last administered on 10/21/16 08:49; Admin Dose 2 TAB; Start 09/21/16 at 15 :00 Hydromorphone HCl (Dilaudid) 0.5 mg Q2H PRN IV PAIN Last administered on 09:25; Admin Dose 0.5 MG; Start 09/21/16 at 15:00 Hydromorphone HCl (Dilaudid) 1 mg Q2H PRN IV PAIN Last administered on 10:05; Admin Dose 1 MG; Start 09/21/16 at 15:00 Docusate Sodium (Colace) 100 mg BID PRN PO CONSTIPATION; Start 09/21/16 at 15: 00 Docusate Sodium (Colace Liquid Cup) 100 mg BID NGT Last administered on 09:59; Admin Dose 100 MG; Start 09/22/16 at 21:00 IV Flush (NS 10 ml) 10 ml PRN PRN IV IV PROTOCOL; Start 09/25/16 at 12:00 Spironolactone 50 mg 50 mg DAILY NGT Last administered on 10/26/16 09:59; Admin Dose 50 MG; Start 09/28/16 at 09:00 Dopamine HCl/ Dextrose 250 ml @ 6.053 mls/ hr TITRATE IV Last administered on 09/30/16 04:46; Admin Dose 6.053 MLS/HR; Start 09/29/16 at 11:00 Phenylephrine HCl/ Dextrose (Marcell-Syneph/D5W) 500 ml @ 75 mls/hr TITRATE IV ; Start 09/29/16 at 14:00 Furosemide (Lasix) 20 mg Q6 IV Last administered on 10/26/16 06:12; Admin Dose 20 MG; Start 10/05/16 at 13:00 Lorazepam 0.5 mg 0.5 mg Q6H PRN IV AGITATION/ANXIETY Last administered on 08:00; Admin Dose 0.5 MG; Start 10/05/16 at 23:00 Fentanyl (Sublimaze) 100 ml @ 2.5 mls/hr TITRATE IV Last administered on 06:44; Admin Dose 3 MLS/HR; Start 10/07/16 at 09:30 Nystatin 5 ml 5 ml QID PO Last administered on 10/26/16 09:59; Admin Dose 5 ML ; Start 10/19/16 at 13:00 Meropenem/Sodium Chloride (Merrem 1 Gm/50 ml (Pmx)) 50 ml @ 100 mls/hr Q12 IVPB Last administered on 10/26/16 09:59; Admin Dose 100 MLS/HR; Start at 21:00 Diphenhydramine HCl 25 mg 25 mg Q6H PRN IV PRURITUS Last administered on 10:49; Admin Dose 25 MG; Start 10/23/16 at 10:30 Fluconazole (Diflucan 400 Mg/ NS (Pmx)) 200 ml @ 100 mls/hr TID IVPB Last administered on 10/26/16 09:58; Admin Dose 100 MLS/HR; Start 10/23/16 at 21:00 Loratadine 10 mg 10 mg DAILY PO Last administered on 10/26/16 09:59; Admin Dose 10 MG; Start 10/23/16 at 15:00 Vancomycin HCl/ Sodium Chloride (Vancocin/NS) 250 ml @ 83.333 mls/ hr Q36H IVPB Last administered on 10/25/16 04:27; Admin Dose 83.333 MLS/HR; Start at 04:00 Lansoprazole (Prevacid) 30 mg BID@06,18 NGT Last administered on 10/26/16 06: 12; Admin Dose 30 MG; Start 10/23/16 at 18:00 GERARDO JUSTICE Oct 26, 2016 11:35
--- NOTE | 2016-10-26 13:02 | PN ---
Date/Time of Note Date/Time of Note DATE: 10/26/16 TIME: 13:00 Assessment/Plan Assessment/Plan Assessment/Plan [facility] Progress Note Date of Service: 10/26/2016 Place of service: [facility] ICU Today's Assessment & Plan: Overall still improving, all be it slowly. No evidence for active hemorrhage. No other major uncontrolled issue. No indication for acute surgical intervention. 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 Once off pressors, would be ok from my standpoint to transfer out of ICU. Discussed with team and informed patient as well. Previous assessment that still applies today: Overall stable but with failure to thrive. Abdomen continues to remain benign. Trach and PEG being used. Drainage of perihepatic fluid collection ongoing. Of great importance is adequate nutrition and I recommended that we continue the feeds through the PEG with a goal of 60 cc/h with guidance from our dietitian colleagues. With above assessment, I recommended the following for today: 1. Continue current management 2. Likely LTAC placement early next week 3. Wean off vent 4. Ok to transfer out of ICU once off of pressors Thank you again for your great care of this very pleasant patient and wonderful family. If there are any questions, please feel free to call me at [phone]. Nature of presenting problem: High severity Please note that, given the extensive number of diagnoses or management options , the extensive amount and/or complexity of data needed to be reviewed, and I risk of complications and/or morbidity or mortality, this qualifies as high complexity type of decision-making. Disclaimer: Inadvertent spelling and grammatical errors are likely due to EHR/ dictation software use and do not reflect on the quality of delivered patient care. Also, please note that the electronic time recorded on this node does not necessarily reflect the actual time of the visit. 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 S/p IR drainage 09/09/16 with removal of 20 cc pus and placement of a 10 Fr. pigtail catheter at [facility]. D/c home 09/12/16. Re-presented to [place] ED 09/15/16 after being diverted from [facility] (due to internal disaster diversion) where CT was done showing adequate placement of the percutaneous drain near the sigmoid colon and decompressed sigmoid colon abscess, no obvious free air or significant spillage of stool in the abdominal cavity, and incidental finding of tail of the [employer] shunt in the pelvis (new from right upper quadrant position of the same drain on the CT scan at [facility]). Transfer to [facility] 09/15/2016 for further cares. S/p upsizing of drain to 12 Fr pigtail on 09/17/16 (communication with colon demonstrated; no obvious free communication to rest of peritoneal space). Patient decompensated in the early hours of the morning on 09/21/2016 and had to be transferred to the intensive care unit with need for endotracheal tube intubation, central line placement, and resuscitation for treatment of shock with lactic acidosis and evidence of peritonitis and free air on the new chest, abdomen, and pelvis CT scan. S/p a rather challenging sigmoid colectomy with performance of end colostomy (Reid's procedure), takedown of splenic flexure of the colon, lysis of adhesions (60 minutes), and abdominal lavage at [facility] on 09/21/16; diagnosis of colon ischemia (distal transverse colon and descending colon) during reentry through recent laparotomy incision with exploration of abdominal cavity, takedown of colostomy, completion left hemicolectomy with resection of distal transverse colon, lysis of adhesions, abdominal lavage, performance of an end colostomy [facility] 09/24/16. Extubated post op evening of 09/25/16. Decompensation with intubation and restart of pressors . Right-sided pneumothorax after drainage of right pleural effusion requiring chest tube placement 09/30/2016. Extubated 10/03/2016. Decompensation with reintubation 10/06/16. Tracheostomy and PEG placed. Perihepatic fluid collections drained 10/13/2016. Cryptococcal antigen found in the urine 2016. Antifungal therapy started. S/p new perc drain perihepatic 10/23/16. Comorbidities: 1. Perforated sigmoid colon (see below) 2. Status post ventriculoperitoneal shunt placement. 3. Status post prior hysterectomy and bilateral salpingo-oophorectomy through Pfannenstiel incision 4. S/p IR drainage 09/09/16 with removal of 20 cc pus and placement of a 10 Fr. pigtail catheter at [facility]. 5. Readmission to [facility] 09/15/16 with upsizing of drain to 12 Fr pigtail on (communication with colon demonstrated; no obvious free communication to rest of peritoneal space). Septic shock with multiorgan failure 09/21/2016 requiring ICU admission with intubation and pressors. 6. S/p a rather challenging sigmoid colectomy with performance of end colostomy (Reid's procedure), takedown of splenic flexure of the colon, lysis of adhesions (60 minutes), and abdominal lavage at [facility] on 09/21/16 7. Colon ischemia (distal transverse colon and descending colon) 8. S/p reentry through recent laparotomy incision with exploration of abdominal cavity, takedown of colostomy, completion left hemicolectomy with resection of distal transverse colon, lysis of adhesions, abdominal lavage, performance of an end colostomy [facility] 09/24/16 9. Stage I/II decubitus pressure ulcers (10/11/2016 [facility] ICU) Subjective: Remain on a ventilator with tracheostomy without major events. Less lethargic and more communicative. No major noted complaints regarding abdominal pain. Objective: Vitals: See below I's & O's: See below Exam: GENERAL: On exam, the patient was lying in bed and appeared to be breathing comfortably on the vent. No obvious acute distress. Appears emaciated. ABDOMEN: Soft, nontender and nondistended. Incision dressings are clean, dry and intact without any obvious evidence of underlying erythema, edema, discharge , or hernia. Surgical drain ss without any evidence of enteric contents. There are no peritoneal signs or guarding. Ostomy appears to be viable and productive with stool and air in the bag. Perihepatic drains showing pus and ss output. No bile. SKIN: Skin appears to be pink and feels warm to touch. NEUROLOGIC: Patient is more awake today and a bit more interactive; follows simple commands. Remains on the ventilator with tracheostomy tube. Labs: See below Exam/Review of Systems Vital Signs Vitals Vital Signs Date Time Temp Pulse Resp B/P Pulse Ox O2 Delivery O2 Flow Rate FiO2 10/26/16 11:05 92 22 100 30 10/26/16 06:45 98/58 10/26/16 06:00 Mechanical Ventilator 10/26/16 04:00 99.4 Intake and Output 10/25/16 10/25/16 10/26/16 15:00 23:00 07:00 Intake Total 1147.60 ml 1193.28 ml 1428.48 ml Output Total 320 ml 575 ml 1250 ml Balance 827.60 ml 618.28 ml 178.48 ml Results Result Diagram: 10/25/16 0400 10/25/16 0400 ALEXSANDER DUARTE M.D. Oct 26, 2016 13:02
[2016-10-26] MEDS: VANCOMYCIN 1.25 GM in SOD CHLORIDE 0.9% 250 ML IVPB SCH (16:28)
--- NOTE | 2016-10-26 16:52 | PN ---
Date/Time of Note Date/Time of Note DATE: 10/26/16 TIME: 16:52 Assessment/Plan Assessment/Plan Chief Complaint/Hosp Course This is a 70-year-old female admitted with a perforated colon and contained abscess underwent a drainage procedure on further colonic procedures patient is currently in the intensive care unit unable to come off the ventilator secondary to multiple medical problems Patient was extubated and had to be input intubated again has been treated for septic shock lactic acidosis peritonitis currently has an end colostomy Helio pouch and has undergone colon resection patient also has a right-sided chest tube for a pneumothorax She was reintubated again Status post tracheostomy We will continue pulmonary toilet Trach care Vent support Pulmonary toilet Patient DNR Problems: Subjective 24 Hr Interval Summary Constitutional: improved Pain Control: mild Exam/Review of Systems Vital Signs Vitals Vital Signs Date Time Temp Pulse Resp B/P Pulse Ox O2 Delivery O2 Flow Rate FiO2 10/26/16 12:00 100 10/26/16 11:05 22 100 30 10/26/16 06:45 98/58 10/26/16 06:00 Mechanical Ventilator 10/26/16 04:00 99.4 Intake and Output 10/25/16 10/25/16 10/26/16 15:00 23:00 07:00 Intake Total 1147.60 ml 1193.28 ml 1428.48 ml Output Total 320 ml 575 ml 1250 ml Balance 827.60 ml 618.28 ml 178.48 ml Exam Eyes: No EOMI, No PERRL, No fundi, disc, No icteric, No nl conjunctiva, No nl lids, No nl sclera, No other Neck: non-tender, supple Respiratory: clear to auscultation, normal air movement Cardiovascular: nl pulses, regular rate and rhythm Gastrointestinal: nl liver, spleen, non-tender, soft Results Result Diagram: 10/25/160 10/25/16399 GIL PINEDA MD Oct 26, 2016 16:52
--- NOTE | 2016-10-26 17:46 | PN ---
DATE: 10/26/2016 SUBJECTIVE: No acute changes overnight. The patient is lying comfortably in bed. T-max yesterday 100.1, T-current 99.4. Pulse 100, respirations 22, blood pressure 98/58, saturation 100 on 30 FiO2. The patient is on Levophed at 2 mcg per minute. MICROBIOLOGY: Intra-abdominal fluid cultures sent on October 23 remain negative. INDWELLINGS: Trach, PEG, Shore, right-sided PICC line. Intra- abdominal drainage catheters. ANTIMICROBIALS: Fluconazole 400 mg 3 times daily, IV vancomycin dose per pharmacy, meropenem 500 q.12 hours. OBJECTIVE DATA: GENERAL: Chronically ill-appearing, wasted, elderly woman who is lethargic, in no distress. HEENT: Head is atraumatic, normocephalic. Sclerae are anicteric. Buccal mucosa is dry. NECK: Supple. Tracheostomy is present. LUNGS: Chest rise is symmetrical. Breath sounds are diminished at the bases. HEART: S1, S2. ABDOMEN: Soft. Bowel sounds are hypoactive. EXTREMITIES: Bilateral trace edema. ASSESSMENT: 1. Septic shock. 2. 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 CSF cultures have been negative. 3. Coag-negative staph bacteremia, consistent with contaminant. 4. Respiratory failure with extensive pulmonary infiltrates and cavitary lesions per CT. 5. Status post perforated sigmoid colon repair with end colostomy. 6. Upper extremity deep vein thrombosis. PLAN: The patient remains on low-dose of Levophed. She is covered with appropriate antimicrobials, which we will continue. No indications for acute surgical intervention. Per surgical note, status post ventriculoperitoneal shunt externalization with ligation. Recurrent perihepatic fluid collections status post placement of drainage catheter on October 23, 2016 with cultures being negative so far. Dictated By: Kathy Lopez NP /rhina/sesar /Document#: [id number]
[2016-10-26] MEDS: MIDODRINE 5 MG TAB PO SCH (19:47)
[2016-10-27] VITALS (81 sets, daily range): BP systolic 78–122; BP diastolic 46–87; PULSE 86–113; RESP 13–28
[2016-10-27] MEDS: IPRATROPIUM (HFA) 12.9 GM INHALER INH SCH ×6 (01:16→21:45)
[2016-10-27] MEDS: ALBUTEROL 18 GM INHALER INH SCH ×6 (01:16→21:45)
[2016-10-27] MEDS: LANSOPRAZOLE 30 MG CAP NGT SCH ×2 (05:19→18:31)
[2016-10-27 05:34] LABS: BASOPHILS % 0.2 % (0.0-2.0); EOSINOPHILS # 0.2 10^3/ul (0.0-0.5); EOSINOPHILS % 1.5 % (0.0-7.0); HEMATOCRIT 22.8 % (37.0-47.0); HEMOGLOBIN 7.4 g/dl (12.0-16.0); LYMPHOCYTES # 0.8 10^3/ul (0.8-2.9); LYMPHOCYTES % 5.5 % (15.0-51.0); MEAN CORPUSCULAR HGB CONC 32.5 g/dl (32.0-37.0); MEAN CORPUSCULAR VOLUME 89.4 fl (82.0-101.0); MONOCYTE # 0.6 10^3/ul (0.3-0.9); MONOCYTES % 3.9 % (0.0-11.0); PLATELET COUNT 218 10^3/UL (140-415); RED BLOOD COUNT 2.55 10^6/ul (4.20-5.40); RED CELL DISTRIBUTION WIDTH 18.5 % (11.5-14.5); WHITE BLOOD COUNT 14.9 10^3/ul (4.8-10.8)
[2016-10-27 05:51] LABS: INR 1.39; PROTIME 17.1 Sec (12.2-14.2); PT RATIO 1.3
[2016-10-27 05:52] LABS: PARTIAL THROMBOPLASTIN TIME 36.8 Sec (25.0-35.0)
[2016-10-27 05:57] LABS: ALBUMIN 1.6 g/dl (3.3-4.9); ALBUMIN/GLOBULIN RATIO 0.53; BILIRUBIN,INDIRECT 0.1 mg/dl (0-1.1); BILIRUBIN,TOTAL 0.1 mg/dl (0.2-1.3); CALCIUM 6.8 mg/dl (8.4-10.2); CREATININE 0.46 mg/dl (0.44-1.00); MAGNESIUM 1.7 mg/dl (1.7-2.5); PHOSPHORUS 3.3 mg/dl (2.5-4.9); POTASSIUM 3.9 mmol/L (3.5-5.1); TOTAL PROTEIN 4.6 g/dl (6.1-8.1)
[2016-10-27 06:31] LABS: NEUTROPHILS % 87.4 % (39.0-77.0); POSITIVE DIFF @See below
[2016-10-27] MEDS: MEROPENEM 1 GM/50ML(PMX) 50 ML IVPB SCH (08:18)
[2016-10-27] MEDS: FLUCONAZOLE 400 MG/NS (PMX) 200 ML IVPB SCH ×3 (08:19→21:00)
[2016-10-27] MEDS: NYSTATIN SUSP 5 ML CUP PO SCH ×4 (08:19→20:59)
[2016-10-27] MEDS: LORATADINE 10 MG TAB PO SCH (08:19)
[2016-10-27] MEDS: BALSAM PERU/CASTOR OIL 60 GM TUBE TOP SCH (08:19)
[2016-10-27] MEDS: MIDODRINE 5 MG TAB PO SCH ×2 (08:19→17:50)
[2016-10-27] MEDS: SPIRONOLACTONE 50 MG TAB NGT SCH (08:19)
[2016-10-27] MEDS: DOCUSATE SODIUM 10 MG/ML (10ML CUP) NGT SCH ×2 (08:19→20:59)
[2016-10-27] MEDS: POLYETHYLENE GLYCOL 17 GM PACKET PO SCH (08:19)
--- NOTE | 2016-10-27 10:19 | CONS ---
Date/Time of Note Date/Time of Note DATE: 10/27/16 TIME: : Assessment/Plan Assessment/Plan Additional Assessment/Plan Ventilator settings; SIMV of 10, tidal volume 500, PEEP of 5, 30% FiO2 with pressure support of 10. Assessment and recommendations; 1. Patient admitted with sepsis with history of recent bowel perforation status post colostomy. 2. Chronic respiratory failure status post tracheostomy. 3. Right upper extremity DVT, patient not a candidate for anticoagulation due to anemia and thrombocytopenia. 4. Status post right pneumothorax after undergoing thoracentesis status post chest tube placement with interval removal. 5. Improving hypotension. 6. Continued poor mental status. Continue current supportive care. Prognosis is poor. Consultation Date/Type/Reason Admit Date/Time Sep 15, 2016 at 21:35 Initial Consult Date 09/21/16 Type of Consultation: Pulmonary/critical care 24 HR Interval Summary Free Text/Dictation Patient condition remains critical. Still exhibiting poor mental status. Requiring full ventilator support. Patient however has remained hemodynamically stable and is off pressor support. General exam; elderly woman, on ventilator via tracheostomy, minimally responsive. Currently in no distress. Exam/Review of Systems Vital Signs Vitals Vital Signs Date Time Temp Pulse Resp B/P Pulse Ox O2 Delivery O2 Flow Rate FiO2 10/27/16 08:00 98 10/27/16 06:45 25 86/51 100 10/27/16 06:00 99.0 Mechanical Ventilator 10/27/16 05:44 30 Intake and Output 10/26/16 10/26/16 10/27/16 15:00 23:00 07:00 Intake Total 224.37 ml 1214.96 ml 633.09 ml Output Total 250 ml 320 ml Balance 224.37 ml 964.96 ml 313.09 ml Exam HEENT exam; supple neck, no JVD. No lymphadenopathy. Midline trachea. No thyromegaly. Tracheostomy in place. Insertion site is clean. Patient has fair dentition. Pupils are small bilaterally. Chest exam; diminished but clear breath sound. S1-S2 audible, no murmurs. Regular rhythm. Abdomen exam; soft, G-tube in place. Colostomy in place. Filled with fecal material. Bowel sounds audible. Abdomen is nondistended. Extremity exam; trace edema. 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 Results Result Diagram: 10/27/16 0450 10/27/16 0450 Results 24 hrs Laboratory Tests Test 10/27/16 04:00 10/27/16 04:50 Lactic Acid Level 1.8 White Blood Count 14.9 H Red Blood Count 2.55 L Hemoglobin 7.4 L Hematocrit 22.8 L Mean Corpuscular Volume 89.4 Mean Corpuscular Hemoglobin 29.0 Mean Corpuscular Hemoglobin Concent 32.5 Red Cell Distribution Width 18.5 H Platelet Count 218 # Mean Platelet Volume 12.0 H Neutrophils % 87.4 H Lymphocytes % 5.5 L Monocytes % 3.9 Eosinophils % 1.5 Basophils % 0.2 Nucleated Red Blood Cells % 0.0 Neutrophils # (Manual) 13 H Lymphocytes # 0.8 Monocytes # 0.6 Eosinophils # 0.2 Basophils # 0.0 Nucleated Red Blood Cells # 0.0 Prothrombin Time 17.1 H Prothrombin Time Ratio 1.3 INR International Normalized Ratio 1.39 Activated Partial Thromboplast Time 36.8 H Sodium Level 136 Potassium Level 3.9 Chloride Level 95 L Carbon Dioxide Level 33 H Anion Gap 12 Blood Urea Nitrogen 31 H Creatinine 0.46 Glucose Level 127 Calcium Level 6.8 L Phosphorus Level 3.3 Magnesium Level 1.7 Total Bilirubin 0.1 L Direct Bilirubin 0.00 Indirect Bilirubin 0.1 Aspartate Amino Transf (AST/SGOT) 31 Alanine Aminotransferase (ALT/SGPT) 68 Alkaline Phosphatase 371 H B-Type Natriuretic Peptide 2690 H Total Protein 4.6 L Albumin 1.6 L Globulin 3.00 Albumin/Globulin Ratio 0.53 Medications Medications Current Medications Ondansetron HCl (Zofran Inj) 4 mg Q6H PRN IV NAUSEA AND/OR VOMITING Last administered on 09/26/16 09:23; Admin Dose 4 MG; Start 09/16/16 at 00:30 Acetaminophen (Tylenol Tab) 650 mg Q6H PRN PO PAIN LEVEL 1-3 OR FEVER Last administered on 10/08/16 12:47; Admin Dose 650 MG; Start 09/16/16 at 00:30 Polyethylene Glycol 17 gm 17 gm DAILY PO Last administered on 10/27/16 08:19; Admin Dose 17 GM; Start 09/20/16 at 11:00 Norepinephrine/ Dextrose (Levophed/D5W) 500 ml @ 1.87 mls/hr TITRATE IV Last administered on 10/27/16 05:24; Admin Dose 1.87 MLS/HR; Start 09/21/16 at 09:00 Acetaminophen/ Hydrocodone Bitart ([place] (5/325)) 1 tab Q4H PRN PO PAIN LEVEL 4 -7 Last administered on 09/28/16 21:20; Admin Dose 1 TAB; Start 09/21/16 at 15: 00 Acetaminophen/ Hydrocodone Bitart ([place] (5/325)) 2 tab Q4H PRN PO PAIN LEVEL 7 -10 Last administered on 10/21/16 08:49; Admin Dose 2 TAB; Start 09/21/16 at 15 :00 Hydromorphone HCl (Dilaudid) 0.5 mg Q2H PRN IV PAIN Last administered on 09:25; Admin Dose 0.5 MG; Start 09/21/16 at 15:00 Hydromorphone HCl (Dilaudid) 1 mg Q2H PRN IV PAIN Last administered on 17:09; Admin Dose 1 MG; Start 09/21/16 at 15:00 Docusate Sodium (Colace) 100 mg BID PRN PO CONSTIPATION; Start 09/21/16 at 15: 00 Docusate Sodium (Colace Liquid Cup) 100 mg BID NGT Last administered on 08:19; Admin Dose 100 MG; Start 09/22/16 at 21:00 IV Flush (NS 10 ml) 10 ml PRN PRN IV IV PROTOCOL; Start 09/25/16 at 12:00 Spironolactone 50 mg 50 mg DAILY NGT Last administered on 10/27/16 08:19; Admin Dose 50 MG; Start 09/28/16 at 09:00 Dopamine HCl/ Dextrose 250 ml @ 6.053 mls/ hr TITRATE IV Last administered on 09/30/16 04:46; Admin Dose 6.053 MLS/HR; Start 09/29/16 at 11:00 Phenylephrine HCl/ Dextrose ([place]-Syneph/D5W) 500 ml @ 75 mls/hr TITRATE IV ; Start 09/29/16 at 14:00 Lorazepam 0.5 mg 0.5 mg Q6H PRN IV AGITATION/ANXIETY Last administered on 08:00; Admin Dose 0.5 MG; Start 10/05/16 at 23:00 Fentanyl (Sublimaze) 100 ml @ 2.5 mls/hr TITRATE IV Last administered on 06:44; Admin Dose 3 MLS/HR; Start 10/07/16 at 09:30 Nystatin 5 ml 5 ml QID PO Last administered on 10/27/16 08:19; Admin Dose 5 ML ; Start 10/19/16 at 13:00 Meropenem/Sodium Chloride (Merrem 1 Gm/50 ml (Pmx)) 50 ml @ 100 mls/hr Q12 IVPB Last administered on 10/27/16 08:18; Admin Dose 100 MLS/HR; Start at 21:00 Diphenhydramine HCl 25 mg 25 mg Q6H PRN IV PRURITUS Last administered on 10:49; Admin Dose 25 MG; Start 10/23/16 at 10:30 Fluconazole (Diflucan 400 Mg/ NS (Pmx)) 200 ml @ 100 mls/hr TID IVPB Last administered on 10/27/16 08:19; Admin Dose 100 MLS/HR; Start 10/23/16 at 21:00 Loratadine 10 mg 10 mg DAILY PO Last administered on 10/27/16 08:19; Admin Dose 10 MG; Start 10/23/16 at 15:00 Vancomycin HCl/ Sodium Chloride (Vancocin/NS) 250 ml @ 83.333 mls/ hr Q36H IVPB Last administered on 10/26/16 16:28; Admin Dose 83.333 MLS/HR; Start at 04:00 Lansoprazole (Prevacid) 30 mg BID@06,18 NGT Last administered on 10/27/16 05: 19; Admin Dose 30 MG; Start 10/23/16 at 18:00 Midodrine (Proamatine) 5 mg BID@,17 PO Last administered on 10/27/16 08:19; Admin Dose 5 MG; Start 10/26/16 at 17:00 GERARDO JUSTICE Oct 27, 2016 10:19
--- NOTE | 2016-10-27 13:46 | PN ---
DATE: SUBJECTIVE: No acute changes. The patient is lying comfortably in bed. She is off pressors. She looks comfortable. She is awake and follows simple commands. VITAL SIGNS: T max 99.9, T current 98, pulse 100, respirations 20, blood pressure 86/51, saturation 100 percent on 30 FiO2. LABORATORY AND DIAGNOSTIC DATA: WBC 14.9, H and H 7.4 and 22.8, platelets 218, neutrophils 87.4, BUN 31, creatinine 0.46. INDWELLINGS: Trach, PEG, Shore, PICC line, intra-abdominal drainage catheters. ANTIMICROBIALS: Meropenem, vancomycin, fluconazole, high-dose. PHYSICAL EXAMINATION: This is a wasted, well-developed elderly white woman, who is in no distress. HEENT: Head atraumatic, normocephalic. Sclerae anicteric. Buccal mucosa dry. NECK: Supple. Tracheostomy present. CHEST: Rise symmetrical. Breath sounds diminished at the bases. HEART: S1, S2. ABDOMEN: Soft. Bowel sounds present. EXTREMITIES: No cyanosis, bilateral trace edema. SKIN: With a maculopapular rash over the body. ASSESSMENT: 1. Ongoing sepsis with shock, currently off pressors since this morning. 2. 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 CSF cultures being negative. 3. Coag-negative staph bacteremia consistent with contaminant. 4. Status post perforated sigmoid colon repair with end colostomy. 5. Status post recurrent intra-abdominal abscess drainage on October 23 with fluid culture being negative. 6. Deep vein thrombosis. 7. History of pneumothorax requiring chest tube, now removed. 8. Status post ventriculoperitoneal shunt externalization with ligation. 9. Allergy to penicillin. 10. Rash consistent with allergic reaction. PLAN: The patient remains unchanged. Pressors were discontinued this morning. She is being followed by multiple consultants. Blood count on October 20 grew coag-negative Staph species, possibly contaminant. Stool for C difficile came back negative.We are going to discontinue vancomycin and meropenem given for possible allergic reaction. We are going to start the patient on doxycycline and aztreonam. Continue high-dose Diflucan, repeat blood cultures today. Follow recommendations of consultants. Continue antihistamine. Dictated By: Kathy Lopez NP /rhina/ /Document#: [id number] MTDD
--- NOTE | 2016-10-27 17:26 | PN ---
Date/Time of Note Date/Time of Note DATE: 10/27/16 TIME: 17:25 Assessment/Plan Lines/Catheters IV Catheter Type (from Nrsg): PICC Line Shore in Place (from Nrsg): Yes Assessment/Plan Chief Complaint/Hosp Course This is a 70-year-old female admitted with a perforated colon and contained abscess underwent a drainage procedure on further colonic procedures patient is currently in the intensive care unit unable to come off the ventilator secondary to multiple medical problems Patient was extubated and had to be input intubated again has been treated for septic shock lactic acidosis peritonitis currently has an end colostomy Helio pouch and has undergone colon resection patient also has a right-sided chest tube for a pneumothorax She was reintubated again Status post tracheostomy We will continue pulmonary toilet Trach care Vent support Pulmonary toilet Patient DNR Problems: Subjective 24 Hr Interval Summary Constitutional: improved Pain Control: mild Exam/Review of Systems Vital Signs Vitals Vital Signs Date Time Temp Pulse Resp B/P Pulse Ox O2 Delivery O2 Flow Rate FiO2 10/27/16 17:09 94 28 100 30 10/27/16 15:00 78/55 10/27/16 12:00 98.9 Mechanical Ventilator Intake and Output 10/26/16 10/26/16 10/27/16 15:00 23:00 07:00 Intake Total 224.37 ml 1214.96 ml 634.96 ml Output Total 250 ml 320 ml Balance 224.37 ml 964.96 ml 314.96 ml Exam ENMT: mucosa pink and moist, nl external ears & nose, nl lips & teeth, nl nasal mucosa & septum Neck: non-tender, supple Respiratory: clear to auscultation, normal air movement Cardiovascular: nl pulses, regular rate and rhythm Gastrointestinal: nl liver, spleen, non-tender, soft Results Result Diagram: 10/27/16 0450 10/27/16 0450 GIL PINEDA MD Oct 27, 2016 17:26
[2016-10-27] MEDS: HYDROmorphONE 1 MG/ML SYG IV PRN (18:31)
--- NOTE | 2016-10-27 18:37 | PN ---
Date/Time of Note Date/Time of Note DATE: 10/27/16 TIME: 18:33 Assessment/Plan VTE Prophylaxis VTE Prophylaxis Intervention: SCD's Assessment/Plan Chief Complaint/Hosp Course 70 yo F with h/o hydrocephalus with previous VPS admitted for sigmoid abscess. hospital stay cb sepsis, colon perforation with multiple abd fluid collections , also recurrent respiratory failure warranting trach, pleural effusion with thora c/b by PTX (chest tube removed) 1. 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 Ventilator dependent respiratory failure: sp trach 3 Left pleural effusion: Status post thoracentesis, complicated with pneumothorax status post placement of a chest tube, removal of chest tube per pulmonology CHEST TUBE PULLED 8.11 4. History of ICH, s/p VPS placement, with subsequent externalization of drain : Neurosurg on board -ID following closely. Pt with +serum crypto Ag, no evidence of crypto in CSF, ID narrowed antifungal to diflucan VPS ligated 8.11 BY NS 5. Paroxysmal A. fib: Now in sinus rhythm status post amiodarone. Cardiology on board 6. Acute renal insufficiency: Resolved. 7. s/p NSTEMI: Likely secondary to septic shock. 8. Volume overload state: -Resume Lasix as urine output is minimal 9. Anemia: unclear etio of acute on chronic. 10. Dysphagia Status post PEG tube placement 11. RUE DVT: hold lovenox given anemia 12. Hypotension -Now off levo as of the a.m. and have started midodrine, possible downgrade tomorrow Prophylaxis: SCDs Problems: Subjective 24 Hr Interval Summary Subjective hx not possible: pt non-verbal Exam/Review of Systems Vital Signs Vitals Vital Signs Date Time Temp Pulse Resp B/P Pulse Ox O2 Delivery O2 Flow Rate FiO2 10/27/16 17:09 94 28 100 30 10/27/16 15:00 78/55 10/27/16 12:00 98.9 Mechanical Ventilator Intake and Output 10/26/16 10/26/16 10/27/16 15:00 23:00 07:00 Intake Total 224.37 ml 1214.96 ml 634.96 ml Output Total 250 ml 320 ml Balance 224.37 ml 964.96 ml 314.96 ml Exam Constitutional: non-verbal Respiratory: clear to auscultation Cardiovascular: regular rate and rhythm Gastrointestinal: soft, No distended Musculoskeletal: nl extremities to inspection Results Result Diagram: 10/27/16 0450 10/27/16 0450 Results 24 hrs Laboratory Tests Test 10/27/16 04:00 10/27/16 04:50 Lactic Acid Level 1.8 White Blood Count 14.9 H Red Blood Count 2.55 L Hemoglobin 7.4 L Hematocrit 22.8 L Mean Corpuscular Volume 89.4 Mean Corpuscular Hemoglobin 29.0 Mean Corpuscular Hemoglobin Concent 32.5 Red Cell Distribution Width 18.5 H Platelet Count 218 # Mean Platelet Volume 12.0 H Neutrophils % 87.4 H Lymphocytes % 5.5 L Monocytes % 3.9 Eosinophils % 1.5 Basophils % 0.2 Nucleated Red Blood Cells % 0.0 Neutrophils # (Manual) 13 H Lymphocytes # 0.8 Monocytes # 0.6 Eosinophils # 0.2 Basophils # 0.0 Nucleated Red Blood Cells # 0.0 Prothrombin Time 17.1 H Prothrombin Time Ratio 1.3 INR International Normalized Ratio 1.39 Activated Partial Thromboplast Time 36.8 H Sodium Level 136 Potassium Level 3.9 Chloride Level 95 L Carbon Dioxide Level 33 H Anion Gap 12 Blood Urea Nitrogen 31 H Creatinine 0.46 Glucose Level 127 Calcium Level 6.8 L Phosphorus Level 3.3 Magnesium Level 1.7 Total Bilirubin 0.1 L Direct Bilirubin 0.00 Indirect Bilirubin 0.1 Aspartate Amino Transf (AST/SGOT) 31 Alanine Aminotransferase (ALT/SGPT) 68 Alkaline Phosphatase 371 H B-Type Natriuretic Peptide 2690 H Total Protein 4.6 L Albumin 1.6 L Globulin 3.00 Albumin/Globulin Ratio 0.53 Medications Medications Current Medications Ondansetron HCl (Zofran Inj) 4 mg Q6H PRN IV NAUSEA AND/OR VOMITING Last administered on 09/26/16 09:23; Admin Dose 4 MG; Start 09/16/16 at 00:30 Acetaminophen (Tylenol Tab) 650 mg Q6H PRN PO PAIN LEVEL 1-3 OR FEVER Last administered on 10/08/16 12:47; Admin Dose 650 MG; Start 09/16/16 at 00:30 Polyethylene Glycol 17 gm 17 gm DAILY PO Last administered on 10/27/16 08:19; Admin Dose 17 GM; Start 09/20/16 at 11:00 Norepinephrine/ Dextrose (Levophed/D5W) 500 ml @ 1.87 mls/hr TITRATE IV Last administered on 10/27/16 05:24; Admin Dose 1.87 MLS/HR; Start 09/21/16 at 09:00 Acetaminophen/ Hydrocodone Bitart ([place] (5/325)) 1 tab Q4H PRN PO PAIN LEVEL 4 -7 Last administered on 09/28/16 21:20; Admin Dose 1 TAB; Start 09/21/16 at 15: 00 Acetaminophen/ Hydrocodone Bitart ([place] (5/325)) 2 tab Q4H PRN PO PAIN LEVEL 7 -10 Last administered on 10/21/16 08:49; Admin Dose 2 TAB; Start 09/21/16 at 15 :00 Hydromorphone HCl (Dilaudid) 0.5 mg Q2H PRN IV PAIN Last administered on 09:25; Admin Dose 0.5 MG; Start 09/21/16 at 15:00 Hydromorphone HCl (Dilaudid) 1 mg Q2H PRN IV PAIN Last administered on 18:31; Admin Dose 1 MG; Start 09/21/16 at 15:00 Docusate Sodium (Colace) 100 mg BID PRN PO CONSTIPATION; Start 09/21/16 at 15: 00 Docusate Sodium (Colace Liquid Cup) 100 mg BID NGT Last administered on 08:19; Admin Dose 100 MG; Start 09/22/16 at 21:00 IV Flush (NS 10 ml) 10 ml PRN PRN IV IV PROTOCOL; Start 09/25/16 at 12:00 Spironolactone 50 mg 50 mg DAILY NGT Last administered on 10/27/16 08:19; Admin Dose 50 MG; Start 09/28/16 at 09:00 Dopamine HCl/ Dextrose 250 ml @ 6.053 mls/ hr TITRATE IV Last administered on 09/30/16 04:46; Admin Dose 6.053 MLS/HR; Start 09/29/16 at 11:00 Phenylephrine HCl/ Dextrose ([place]-Syneph/D5W) 500 ml @ 75 mls/hr TITRATE IV ; Start 09/29/16 at 14:00 Lorazepam 0.5 mg 0.5 mg Q6H PRN IV AGITATION/ANXIETY Last administered on 08:00; Admin Dose 0.5 MG; Start 10/05/16 at 23:00 Fentanyl (Sublimaze) 100 ml @ 2.5 mls/hr TITRATE IV Last administered on 06:44; Admin Dose 3 MLS/HR; Start 10/07/16 at 09:30 Nystatin (Nystatin Susp) 5 ml QID PO Last administered on 10/27/16 13:40; Admin Dose 5 ML; Start 10/19/16 at 13:00 Diphenhydramine HCl 25 mg 25 mg Q6H PRN IV PRURITUS Last administered on 10:49; Admin Dose 25 MG; Start 10/23/16 at 10:30 Fluconazole (Diflucan 400 Mg/ NS (Pmx)) 200 ml @ 100 mls/hr TID IVPB Last administered on 10/27/16 13:40; Admin Dose 100 MLS/HR; Start 10/23/16 at 21:00 Loratadine (Claritin) 10 mg DAILY PO Last administered on 10/27/16 08:19; Admin Dose 10 MG; Start 10/23/16 at 15:00 Lansoprazole (Prevacid) 30 mg BID@06,18 NGT Last administered on 10/27/16 18: 31; Admin Dose 30 MG; Start 10/23/16 at 18:00 Midodrine 5 mg 5 mg BID@,17 PO Last administered on 10/27/16 08:19; Admin Dose 5 MG; Start 10/26/16 at 17:00 Aztreonam 50 ml @ 100 mls/hr Q12H IVPB ; Start 10/27/16 at 22:00 Doxycycline Hyclate/Sodium Chloride (Vibramycin/NS) 250 ml @ 250 mls/hr Q12H IVPB ; Start 10/27/16 at 23:00 DALE RODARTE Oct 27, 2016 18:37
[2016-10-27] MEDS: FUROSEMIDE 20 MG INJ IV SCH (20:59)
[2016-10-27] MEDS: AZTREONAM 1 GM/NS (PMX) 50 ML IVPB SCH (21:00)
[2016-10-28] VITALS (62 sets, daily range): BP systolic 82–141; BP diastolic 45–83; PULSE 91–110; RESP 15–27
[2016-10-28] MEDS: DOXYCYCLINE 100 MG in SOD CHLORIDE 0.9% 250 ML IVPB SCH ×3 (00:58→23:08)
[2016-10-28] MEDS: ALBUTEROL 18 GM INHALER INH SCH ×6 (01:25→21:24)
[2016-10-28] MEDS: IPRATROPIUM (HFA) 12.9 GM INHALER INH SCH ×6 (01:25→21:24)
[2016-10-28 04:49] LABS: ABNORMAL IP MESSAGE 1; BASOPHILS % 0.1 % (0.0-2.0); EOSINOPHILS # 0.3 10^3/ul (0.0-0.5); EOSINOPHILS % 2.1 % (0.0-7.0); LYMPHOCYTES # 0.9 10^3/ul (0.8-2.9); LYMPHOCYTES % 7.1 % (15.0-51.0); MEAN CORPUSCULAR HEMOGLOBIN 29.5 pg (29.0-33.0); MEAN CORPUSCULAR HGB CONC 32.9 g/dl (32.0-37.0); MEAN CORPUSCULAR VOLUME 89.7 fl (82.0-101.0); MONOCYTE # 0.6 10^3/ul (0.3-0.9); MONOCYTES % 4.3 % (0.0-11.0); NEUTROPHILS % 84.7 % (39.0-77.0); PLATELET COUNT 240 10^3/UL (140-415); RED BLOOD COUNT 2.34 10^6/ul (4.20-5.40); RED CELL DISTRIBUTION WIDTH 18.3 % (11.5-14.5)
[2016-10-28 05:16] LABS: HEMOGLOBIN 6.9 g/dl (12.0-16.0)
[2016-10-28 05:17] LABS: POSITIVE DIFF @See below
[2016-10-28] MEDS: LANSOPRAZOLE 30 MG CAP NGT SCH ×2 (05:22→16:54)
[2016-10-28] MEDS: FUROSEMIDE 20 MG INJ IV SCH ×2 (05:22→16:54)
[2016-10-28 05:33] LABS: CREATININE 0.47 mg/dl (0.44-1.00); POTASSIUM 4.6 mmol/L (3.5-5.1)
[2016-10-28 05:47] LABS: CALCIUM 5.7 mg/dl (8.4-10.2)
--- NOTE | 2016-10-28 08:12 | CONS ---
Date/Time of Note Date/Time of Note DATE: 10/28/16 TIME: 08:09 Assessment/Plan Assessment/Plan Chief Complaint/Hosp Course Acute respiratory failure: now s/p tracheostomy Acute diastolic heart failure: Secondary to volume resuscitation in setting of low albumin and third spacing. Significant anasarca initially but now much better Paroxysmal afib: converted on amiodarone. Remains in sinus Septic shock: from intraabdominal abscess and possible infected [employer] shunt. S/p sigmoid colectomy. Intermittent pressor requirement. Tension pneumothorax: due to thoracentesis. s/p chest tube 09/30 NSTEMI: Trop mildly elevated likely type II in the setting of septic shock. Echo from 09/18 showed normal EF and no significant valvular disease. Repeat trop normalized Diverticulitis complicated by abscess s/p sigmoid colectomy and now colostomy Coagulopathy: ?DIC. Resolved h/o ICH with [employer] shunt -continue lasix to keep even Problems: Consultation Date/Type/Reason Admit Date/Time Sep 15, 2016 at 21:35 Initial Consult Date 09/21/16 Type of Consultation: Cardiology 24 HR Interval Summary Free Text/Dictation Off levophed for ~24hrs. Ex at bedside. Exam/Review of Systems Vital Signs Vitals Vital Signs Date Time Temp Pulse Resp B/P Pulse Ox O2 Delivery O2 Flow Rate FiO2 10/28/16 07:49 96 23 100 30 10/28/16 06:00 94/56 Mechanical Ventilator 10/28/16 04:00 98.7 Intake and Output 10/27/16 10/27/16 10/28/16 15:00 23:00 07:00 Intake Total 201.87 ml 1370 ml 670 ml Output Total 660 ml 285 ml Balance 201.87 ml 710 ml 385 ml Exam Constitutional: alert Head: atraumatic, normocephalic Eyes: other (s/p trach) Neck: No jvd Respiratory: diminished breath sounds, No clear to auscultation Cardiovascular: edema (1+), regular rate and rhythm, No systolic murmur Gastrointestinal: non-tender, soft Skin: No rash or lesions Results Result Diagram: 10/28/16 0400 10/28/16 0400 Results 24 hrs Laboratory Tests Test 10/28/16 04:00 White Blood Count 13.0 H Red Blood Count 2.34 L Hemoglobin 6.9 *L Hematocrit 21.0 L Mean Corpuscular Volume 89.7 Mean Corpuscular Hemoglobin 29.5 Mean Corpuscular Hemoglobin Concent 32.9 Red Cell Distribution Width 18.3 H Platelet Count 240 Mean Platelet Volume 12.0 H Neutrophils % 84.7 H Lymphocytes % 7.1 L Monocytes % 4.3 Eosinophils % 2.1 Basophils % 0.1 Nucleated Red Blood Cells % 0.0 Neutrophils # (Manual) 11 H Lymphocytes # 0.9 Monocytes # 0.6 Eosinophils # 0.3 Basophils # 0.0 Nucleated Red Blood Cells # 0.0 Sodium Level 137 Potassium Level 4.6 Chloride Level 96 L Carbon Dioxide Level 32 H Anion Gap 14 Blood Urea Nitrogen 32 H Creatinine 0.47 Glucose Level 124 Calcium Level 5.7 *L Magnesium Level 2.0 Medications Medications Current Medications Ondansetron HCl (Zofran Inj) 4 mg Q6H PRN IV NAUSEA AND/OR VOMITING Last administered on 09/26/16 09:23; Admin Dose 4 MG; Start 09/16/16 at 00:30 Acetaminophen (Tylenol Tab) 650 mg Q6H PRN PO PAIN LEVEL 1-3 OR FEVER Last administered on 10/08/16 12:47; Admin Dose 650 MG; Start 09/16/16 at 00:30 Polyethylene Glycol 17 gm 17 gm DAILY PO Last administered on 10/27/16 08:19; Admin Dose 17 GM; Start 09/20/16 at 11:00 Norepinephrine/ Dextrose (Levophed/D5W) 500 ml @ 1.87 mls/hr TITRATE IV Last administered on 10/27/16 05:24; Admin Dose 1.87 MLS/HR; Start 09/21/16 at 09:00 Acetaminophen/ Hydrocodone Bitart ([place] (5/325)) 1 tab Q4H PRN PO PAIN LEVEL 4 -7 Last administered on 09/28/16 21:20; Admin Dose 1 TAB; Start 09/21/16 at 15: 00 Acetaminophen/ Hydrocodone Bitart ([place] (5/325)) 2 tab Q4H PRN PO PAIN LEVEL 7 -10 Last administered on 10/21/16 08:49; Admin Dose 2 TAB; Start 09/21/16 at 15 :00 Hydromorphone HCl (Dilaudid) 0.5 mg Q2H PRN IV PAIN Last administered on 09:25; Admin Dose 0.5 MG; Start 09/21/16 at 15:00 Hydromorphone HCl (Dilaudid) 1 mg Q2H PRN IV PAIN Last administered on 18:31; Admin Dose 1 MG; Start 09/21/16 at 15:00 Docusate Sodium (Colace) 100 mg BID PRN PO CONSTIPATION; Start 09/21/16 at 15: 00 Docusate Sodium (Colace Liquid Cup) 100 mg BID NGT Last administered on 20:59; Admin Dose 100 MG; Start 09/22/16 at 21:00 IV Flush (NS 10 ml) 10 ml PRN PRN IV IV PROTOCOL; Start 09/25/16 at 12:00 Spironolactone 50 mg 50 mg DAILY NGT Last administered on 10/27/16 08:19; Admin Dose 50 MG; Start 09/28/16 at 09:00 Dopamine HCl/ Dextrose 250 ml @ 6.053 mls/ hr TITRATE IV Last administered on 09/30/16 04:46; Admin Dose 6.053 MLS/HR; Start 09/29/16 at 11:00 Phenylephrine HCl/ Dextrose ([place]ell-Syneph/D5W) 500 ml @ 75 mls/hr TITRATE IV ; Start 09/29/16 at 14:00 Lorazepam 0.5 mg 0.5 mg Q6H PRN IV AGITATION/ANXIETY Last administered on 08:00; Admin Dose 0.5 MG; Start 10/05/16 at 23:00 Fentanyl (Sublimaze) 100 ml @ 2.5 mls/hr TITRATE IV Last administered on 06:44; Admin Dose 3 MLS/HR; Start 10/07/16 at 09:30 Nystatin (Nystatin Susp) 5 ml QID PO Last administered on 10/27/16 20:59; Admin Dose 5 ML; Start 10/19/16 at 13:00 Diphenhydramine HCl 25 mg 25 mg Q6H PRN IV PRURITUS Last administered on 10:49; Admin Dose 25 MG; Start 10/23/16 at 10:30 Fluconazole (Diflucan 400 Mg/ NS (Pmx)) 200 ml @ 100 mls/hr TID IVPB Last administered on 10/27/16 21:00; Admin Dose 100 MLS/HR; Start 10/23/16 at 21:00 Loratadine (Claritin) 10 mg DAILY PO Last administered on 10/27/16 08:19; Admin Dose 10 MG; Start 10/23/16 at 15:00 Lansoprazole (Prevacid) 30 mg BID@06,18 NGT Last administered on 10/28/16 05: 22; Admin Dose 30 MG; Start 10/23/16 at 18:00 Midodrine 5 mg 5 mg BID@ PO Last administered on 10/27/16 17:50; Admin Dose 5 MG; Start 10/26/16 at 17:00 Aztreonam 50 ml @ 100 mls/hr Q12H IVPB Last administered on 10/27/16 21:00; Admin Dose 100 MLS/HR; Start 10/27/16 at 22:00 Doxycycline Hyclate/Sodium Chloride (Vibramycin/NS) 250 ml @ 250 mls/hr Q12H IVPB Last administered on 10/28/16 00:58; Admin Dose 250 MLS/HR; Start at 23:00 GUSTAVO RAMON Oct 28, 2016 08:12
--- NOTE | 2016-10-28 10:11 | CONS ---
Date/Time of Note Date/Time of Note DATE: 10/28/16 TIME: 10:09 Assessment/Plan Assessment/Plan Additional Assessment/Plan Ventilator setting; SIMV of 10, tidal volume 500, PEEP of 5, pressure support 10 , 30% FiO2. Assessment and recommendations; 1. Patient admitted with severe sepsis from bowel perforation status post colostomy. 2. Severe anemia. 3. Poor mental status. 4. Improving hypotension. 5. Sepsis. 6. Severe overall deconditioning. Continue current treatment. Transfuse packed RBCs. Prognosis remains poor. Consultation Date/Type/Reason Admit Date/Time Sep 15, 2016 at 21:35 Initial Consult Date 09/21/16 Type of Consultation: Pulmonary/critical care 24 HR Interval Summary Free Text/Dictation Patient condition remains critical. Exhibiting waxing and waning mental status. Patient however has improved hemodynamically and not requiring any further pressor support. General exam; elderly woman, on ventilator via tracheostomy, arousable, currently in no distress. Exam/Review of Systems Vital Signs Vitals Vital Signs Date Time Temp Pulse Resp B/P Pulse Ox O2 Delivery O2 Flow Rate FiO2 10/28/16 08:00 95 10/28/16 07:49 23 100 30 10/28/16 06:00 94/56 Mechanical Ventilator 10/28/16 04:00 98.7 Intake and Output 10/27/16 10/27/16 10/28/16 15:00 23:00 07:00 Intake Total 201.87 ml 1370 ml 670 ml Output Total 660 ml 285 ml Balance 201.87 ml 710 ml 385 ml Exam HEENT exam; supple neck, tracheostomy in place. Patient has fair dentition. Pupils are small bilaterally. No neck masses. No thyromegaly. No neck bruits. Chest exam; diminished but clear breath sound. S1-S2 audible, no murmurs. Regular rhythm. Abdomen exam; soft, nondistended. G-tube in place. Colostomy in place. Bowel sounds audible. Extremity exam; trace edema. PROJECT MANAGEMENT exam; patient is arousable but does not follow any commands. Results Result Diagram: 10/28/16 0400 10/28/16 0400 Results 24 hrs Laboratory Tests Test 10/28/16 04:00 White Blood Count 13.0 H Red Blood Count 2.34 L Hemoglobin 6.9 *L Hematocrit 21.0 L Mean Corpuscular Volume 89.7 Mean Corpuscular Hemoglobin 29.5 Mean Corpuscular Hemoglobin Concent 32.9 Red Cell Distribution Width 18.3 H Platelet Count 240 Mean Platelet Volume 12.0 H Neutrophils % 84.7 H Lymphocytes % 7.1 L Monocytes % 4.3 Eosinophils % 2.1 Basophils % 0.1 Nucleated Red Blood Cells % 0.0 Neutrophils # (Manual) 11 H Lymphocytes # 0.9 Monocytes # 0.6 Eosinophils # 0.3 Basophils # 0.0 Nucleated Red Blood Cells # 0.0 Sodium Level 137 Potassium Level 4.6 Chloride Level 96 L Carbon Dioxide Level 32 H Anion Gap 14 Blood Urea Nitrogen 32 H Creatinine 0.47 Glucose Level 124 Calcium Level 5.7 *L Magnesium Level 2.0 Medications Medications Current Medications Ondansetron HCl (Zofran Inj) 4 mg Q6H PRN IV NAUSEA AND/OR VOMITING Last administered on 09/26/16 09:23; Admin Dose 4 MG; Start 09/16/16 at 00:30 Acetaminophen (Tylenol Tab) 650 mg Q6H PRN PO PAIN LEVEL 1-3 OR FEVER Last administered on 10/08/16 12:47; Admin Dose 650 MG; Start 09/16/16 at 00:30 Polyethylene Glycol 17 gm 17 gm DAILY PO Last administered on 10/27/16 08:19; Admin Dose 17 GM; Start 09/20/16 at 11:00 Norepinephrine/ Dextrose (Levophed/D5W) 500 ml @ 1.87 mls/hr TITRATE IV Last administered on 10/27/16 05:24; Admin Dose 1.87 MLS/HR; Start 09/21/16 at 09:00 Acetaminophen/ Hydrocodone Bitart ([place] (5/325)) 1 tab Q4H PRN PO PAIN LEVEL 4 -7 Last administered on 09/28/16 21:20; Admin Dose 1 TAB; Start 09/21/16 at 15: 00 Acetaminophen/ Hydrocodone Bitart ([place] (5/325)) 2 tab Q4H PRN PO PAIN LEVEL 7 -10 Last administered on 10/21/16 08:49; Admin Dose 2 TAB; Start 09/21/16 at 15 :00 Hydromorphone HCl (Dilaudid) 0.5 mg Q2H PRN IV PAIN Last administered on 09:25; Admin Dose 0.5 MG; Start 09/21/16 at 15:00 Hydromorphone HCl (Dilaudid) 1 mg Q2H PRN IV PAIN Last administered on 18:31; Admin Dose 1 MG; Start 09/21/16 at 15:00 Docusate Sodium (Colace) 100 mg BID PRN PO CONSTIPATION; Start 09/21/16 at 15: 00 Docusate Sodium (Colace Liquid Cup) 100 mg BID NGT Last administered on 20:59; Admin Dose 100 MG; Start 09/22/16 at 21:00 IV Flush (NS 10 ml) 10 ml PRN PRN IV IV PROTOCOL; Start 09/25/16 at 12:00 Spironolactone 50 mg 50 mg DAILY NGT Last administered on 10/27/16 08:19; Admin Dose 50 MG; Start 09/28/16 at 09:00 Dopamine HCl/ Dextrose 250 ml @ 6.053 mls/ hr TITRATE IV Last administered on 09/30/16 04:46; Admin Dose 6.053 MLS/HR; Start 09/29/16 at 11:00 Phenylephrine HCl/ Dextrose ([place]-Syneph/D5W) 500 ml @ 75 mls/hr TITRATE IV ; Start 09/29/16 at 14:00 Lorazepam 0.5 mg 0.5 mg Q6H PRN IV AGITATION/ANXIETY Last administered on 08:00; Admin Dose 0.5 MG; Start 10/05/16 at 23:00 Fentanyl (Sublimaze) 100 ml @ 2.5 mls/hr TITRATE IV Last administered on 06:44; Admin Dose 3 MLS/HR; Start 10/07/16 at 09:30 Nystatin (Nystatin Susp) 5 ml QID PO Last administered on 10/27/16 20:59; Admin Dose 5 ML; Start 10/19/16 at 13:00 Diphenhydramine HCl 25 mg 25 mg Q6H PRN IV PRURITUS Last administered on 10:49; Admin Dose 25 MG; Start 10/23/16 at 10:30 Fluconazole (Diflucan 400 Mg/ NS (Pmx)) 200 ml @ 100 mls/hr TID IVPB Last administered on 10/27/16 21:00; Admin Dose 100 MLS/HR; Start 10/23/16 at 21:00 Loratadine (Claritin) 10 mg DAILY PO Last administered on 10/27/16 08:19; Admin Dose 10 MG; Start 10/23/16 at 15:00 Lansoprazole (Prevacid) 30 mg BID@06,18 NGT Last administered on 10/28/16 05: 22; Admin Dose 30 MG; Start 10/23/16 at 18:00 Midodrine 5 mg 5 mg BID@,17 PO Last administered on 10/27/16 17:50; Admin Dose 5 MG; Start 10/26/16 at 17:00 Aztreonam 50 ml @ 100 mls/hr Q12H IVPB Last administered on 10/27/16 21:00; Admin Dose 100 MLS/HR; Start 10/27/16 at 22:00 Doxycycline Hyclate/Sodium Chloride (Vibramycin/NS) 250 ml @ 250 mls/hr Q12H IVPB Last administered on 10/28/16 00:58; Admin Dose 250 MLS/HR; Start at 23:00 GERARDO JUSTICE Oct 28, 2016 10:11
[2016-10-28] MEDS: NYSTATIN SUSP 5 ML CUP PO SCH ×4 (10:20→21:45)
[2016-10-28] MEDS: POLYETHYLENE GLYCOL 17 GM PACKET PO SCH (10:20)
[2016-10-28] MEDS: FLUCONAZOLE 400 MG/NS (PMX) 200 ML IVPB SCH ×3 (10:20→21:45)
[2016-10-28] MEDS: DOCUSATE SODIUM 10 MG/ML (10ML CUP) NGT SCH ×2 (10:20→21:45)
[2016-10-28] MEDS: MIDODRINE 5 MG TAB PO SCH ×2 (10:20→16:54)
[2016-10-28] MEDS: BALSAM PERU/CASTOR OIL 60 GM TUBE TOP SCH (10:21)
[2016-10-28] MEDS: SPIRONOLACTONE 50 MG TAB NGT SCH (10:21)
[2016-10-28] MEDS: LORATADINE 10 MG TAB PO SCH (10:21)
[2016-10-28] MEDS: AZTREONAM 1 GM/NS (PMX) 50 ML IVPB SCH ×2 (11:46→21:45)
--- NOTE | 2016-10-28 13:32 | PN ---
Date/Time of Note Date/Time of Note DATE: 10/28/16 TIME: 13:28 Assessment/Plan Lines/Catheters IV Catheter Type (from Nrs): PICC Line Shore in Place (from Nrs): Yes Assessment/Plan Assessment/Plan [facility] Progress Note Date of Service: 10/28/2016 Place of service: [facility] ICU Today's Assessment & Plan: Overall still improving, all be it slowly. No evidence for active hemorrhage; low Hg likely from chronic illness. Will recheck and transfuse if less than 7. No other major uncontrolled issue. No indication for acute surgical intervention. Main issue at this point is chcf recovery and patient's will to do the needed work. Once off pressors, would be ok from my standpoint to transfer out of ICU. Discussed with patient who surprisingly was much more engaged with the conversation today than before, and with the team as well. Previous assessment that still applies today: Overall stable but with failure to thrive. Abdomen continues to remain benign. Trach and PEG being used. Drainage of perihepatic fluid collection ongoing. Of great importance is adequate nutrition and I recommended that we continue the feeds through the PEG with a goal of 60 cc/h with guidance from our dietitian colleagues. With above assessment, I recommended the following for today: 1. Continue current management 2. Likely LTAC placement early next week 3. Please pursue an aggressive course towards weaning patient off the vent 4. Ok to transfer out of ICU once off of pressors Thank you again for your great care of this very pleasant patient and wonderful family. If there are any questions, please feel free to call me at [phone]. Nature of presenting problem: High severity Please note that, given the extensive number of diagnoses or management options , the extensive amount and/or complexity of data needed to be reviewed, and I risk of complications and/or morbidity or mortality, this qualifies as high complexity type of decision-making. Disclaimer: Inadvertent spelling and grammatical errors are likely due to EHR/ dictation software use and do not reflect on the quality of delivered patient care. Also, please note that the electronic time recorded on this node does not necessarily reflect the actual time of the visit. Updated Clinical Summary: A very pleasant 70-year-old lady without significant known past medical history other than a [employer] shunt placement many years ago which she did not remember or report, presenting with what appears to be a sigmoid colon abscess or pericolonic abscess, which seemed to be a complication of diverticulitis. S/p IR drainage 09/09/16 with removal of 20 cc pus and placement of a 10 Fr. pigtail catheter at [facility]. D/c home 09/12/16. Re-presented to [place] ED 09/15/16 after being diverted from [facility] (due to internal disaster diversion) where CT was done showing adequate placement of the percutaneous drain near the sigmoid colon and decompressed sigmoid colon abscess, no obvious free air or significant spillage of stool in the abdominal cavity, and incidental finding of tail of the [employer] shunt in the pelvis (new from right upper quadrant position of the same drain on the CT scan at [facility]). Transfer to [facility] 09/15/2016 for further cares. S/p upsizing of drain to 12 Fr pigtail on 09/17/16 (communication with colon demonstrated; no obvious free communication to rest of peritoneal space). Patient decompensated in the early hours of the morning on 09/21/2016 and had to be transferred to the intensive care unit with need for endotracheal tube intubation, central line placement, and resuscitation for treatment of shock with lactic acidosis and evidence of peritonitis and free air on the new chest, abdomen, and pelvis CT scan. S/p a rather challenging sigmoid colectomy with performance of end colostomy (Reid's procedure), takedown of splenic flexure of the colon, lysis of adhesions (60 minutes), and abdominal lavage at [facility] on 09/21/16; diagnosis of colon ischemia (distal transverse colon and descending colon) during reentry through recent laparotomy incision with exploration of abdominal cavity, takedown of colostomy, completion left hemicolectomy with resection of distal transverse colon, lysis of adhesions, abdominal lavage, performance of an end colostomy [facility] 09/24/16. Extubated post op evening of 09/25/16. Decompensation with intubation and restart of pressors . Right-sided pneumothorax after drainage of right pleural effusion requiring chest tube placement 09/30/2016. Extubated 10/03/2016. Decompensation with reintubation 10/06/16. Tracheostomy and PEG placed. Perihepatic fluid collections drained 10/13/2016. Cryptococcal antigen found in the urine 2016. Antifungal therapy started. S/p new perc drain perihepatic 10/23/16. Comorbidities: 1. Perforated sigmoid colon (see below) 2. Status post ventriculoperitoneal shunt placement. 3. Status post prior hysterectomy and bilateral salpingo-oophorectomy through Pfannenstiel incision 4. S/p IR drainage 09/09/16 with removal of 20 cc pus and placement of a 10 Fr. pigtail catheter at [facility]. 5. Readmission to [facility] 09/15/16 with upsizing of drain to 12 Fr pigtail on (communication with colon demonstrated; no obvious free communication to rest of peritoneal space). Septic shock with multiorgan failure 09/21/2016 requiring ICU admission with intubation and pressors. 6. S/p a rather challenging sigmoid colectomy with performance of end colostomy (Reid's procedure), takedown of splenic flexure of the colon, lysis of adhesions (60 minutes), and abdominal lavage at [facility] on 09/21/16 7. Colon ischemia (distal transverse colon and descending colon) 8. S/p reentry through recent laparotomy incision with exploration of abdominal cavity, takedown of colostomy, completion left hemicolectomy with resection of distal transverse colon, lysis of adhesions, abdominal lavage, performance of an end colostomy [facility] 09/24/16 9. Stage I/II decubitus pressure ulcers (10/11/2016 [facility] ICU) Subjective: Remain on a ventilator with tracheostomy without major events. Less lethargic and more communicative. No major noted complaints regarding abdominal pain. With restraints. Objective: Vitals: See below I's & O's: See below Exam: GENERAL: On exam, the patient was lying in bed and appeared to be breathing comfortably on the vent. No obvious acute distress. Appears emaciated. ABDOMEN: Soft, nontender and nondistended. Incision dressings are clean, dry and intact without any obvious evidence of underlying erythema, edema, discharge , or hernia. Surgical drain ss without any evidence of enteric contents. There are no peritoneal signs or guarding. Ostomy appears to be viable and productive with stool and air in the bag. Perihepatic drains showing pus and ss output. No bile. SKIN: Skin appears to be pink and feels warm to touch. NEUROLOGIC: Patient is more awake today and a bit more interactive; follows simple commands. Remains on the ventilator with tracheostomy tube. Labs: See below Exam/Review of Systems Vital Signs Vitals Vital Signs Date Time Temp Pulse Resp B/P Pulse Ox O2 Delivery O2 Flow Rate FiO2 10/28/16 11:38 98 15 100 10/28/16 09:36 30 10/28/16 06:00 94/56 Mechanical Ventilator 10/28/16 04:00 98.7 Intake and Output 10/27/16 10/27/16 10/28/16 15:00 23:00 07:00 Intake Total 201.87 ml 1370 ml 670 ml Output Total 660 ml 285 ml Balance 201.87 ml 710 ml 385 ml Results Result Diagram: 10/28/16 0400 10/28/16 0400 ALEXSANDER DUARTE M.D. Oct 28, 2016 13:31
--- NOTE | 2016-10-28 13:59 | CONS ---
Date/Time of Note Date/Time of Note DATE: 10/28/16 TIME: 13:56 Assessment/Plan Assessment/Plan Chief Complaint/Hosp Course SUBJECTIVE: No acute changes. The patient is lying comfortably in bed. She is off pressors. She looks comfortable. She is awake and follows simple commands. Temperature 98.7, T-max 99.9 pulse 96 respirations 23 blood pressure 94/56 saturation 100 on vent WBC 13 H&H 6.9 and 21 platelets 240 neutrophils 84.7 BN 32 creatinine 0.47 Indwelling: Tracheostomy, PICC, PEG, Shore, intra-abdominal drains ANTIMICROBIALS: Fluconazole, doxycycline, aztreonam PHYSICAL EXAMINATION: This is a wasted, well-developed elderly white woman, who is in no distress. HEENT: Head atraumatic, normocephalic. Sclerae anicteric. Buccal mucosa dry. NECK: Supple. Tracheostomy present. CHEST: Rise symmetrical. Breath sounds diminished at the bases. HEART: S1, S2. ABDOMEN: Soft. Bowel sounds present. EXTREMITIES: No cyanosis, bilateral trace edema. SKIN: With a maculopapular rash over the body. ASSESSMENT: 1. Ongoing sepsis with shock, currently off pressors since this morning. 2. 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 CSF cultures being negative. 3. Coag-negative staph bacteremia consistent with contaminant. 4. Status post perforated sigmoid colon repair with end colostomy. 5. Status post recurrent intra-abdominal abscess drainage on October 23 with fluid culture being negative. 6. Deep vein thrombosis. 7. History of pneumothorax requiring chest tube, now removed. 8. Status post ventriculoperitoneal shunt externalization with ligation. 9. Allergy to penicillin. 10. Rash consistent with allergic reaction. PLAN: Holding off pressors, continue antibiotics, follow repeat blood cultures, follow recommendations of consultants, continue antihistamines Discussed with RN and family at bedside Problems: Consultation Date/Type/Reason Admit Date/Time Sep 15, 2016 at 21:35 Type of Consultation: id Exam/Review of Systems Vital Signs Vitals Vital Signs Date Time Temp Pulse Resp B/P Pulse Ox O2 Delivery O2 Flow Rate FiO2 10/28/16 13:09 104 22 100 30 10/28/16 06:00 94/56 Mechanical Ventilator 10/28/16 04:00 98.7 Intake and Output 10/27/16 10/27/16 10/28/16 15:00 23:00 07:00 Intake Total 201.87 ml 1370 ml 670 ml Output Total 660 ml 285 ml Balance 201.87 ml 710 ml 385 ml Results Result Diagram: 10/28/16 0400 10/28/16 0400 Results 24 hrs Laboratory Tests Test 10/28/16 04:00 White Blood Count 13.0 H Red Blood Count 2.34 L Hemoglobin 6.9 *L Hematocrit 21.0 L Mean Corpuscular Volume 89.7 Mean Corpuscular Hemoglobin 29.5 Mean Corpuscular Hemoglobin Concent 32.9 Red Cell Distribution Width 18.3 H Platelet Count 240 Mean Platelet Volume 12.0 H Neutrophils % 84.7 H Lymphocytes % 7.1 L Monocytes % 4.3 Eosinophils % 2.1 Basophils % 0.1 Nucleated Red Blood Cells % 0.0 Neutrophils # (Manual) 11 H Lymphocytes # 0.9 Monocytes # 0.6 Eosinophils # 0.3 Basophils # 0.0 Nucleated Red Blood Cells # 0.0 Sodium Level 137 Potassium Level 4.6 Chloride Level 96 L Carbon Dioxide Level 32 H Anion Gap 14 Blood Urea Nitrogen 32 H Creatinine 0.47 Glucose Level 124 Calcium Level 5.7 *L Magnesium Level 2.0 Medications Medications Current Medications Ondansetron HCl (Zofran Inj) 4 mg Q6H PRN IV NAUSEA AND/OR VOMITING Last administered on 09/26/16 09:23; Admin Dose 4 MG; Start 09/16/16 at 00:30 Acetaminophen (Tylenol Tab) 650 mg Q6H PRN PO PAIN LEVEL 1-3 OR FEVER Last administered on 10/08/16 12:47; Admin Dose 650 MG; Start 09/16/16 at 00:30 Polyethylene Glycol 17 gm 17 gm DAILY PO Last administered on 10/28/16 10:20; Admin Dose 17 GM; Start 09/20/16 at 11:00 Norepinephrine/ Dextrose (Levophed/D5W) 500 ml @ 1.87 mls/hr TITRATE IV Last administered on 10/27/16 05:24; Admin Dose 1.87 MLS/HR; Start 09/21/16 at 09:00 Acetaminophen/ Hydrocodone Bitart ([place] (5/325)) 1 tab Q4H PRN PO PAIN LEVEL 4 -7 Last administered on 09/28/16 21:20; Admin Dose 1 TAB; Start 09/21/16 at 15: 00 Acetaminophen/ Hydrocodone Bitart ([place] (5/325)) 2 tab Q4H PRN PO PAIN LEVEL 7 -10 Last administered on 10/21/16 08:49; Admin Dose 2 TAB; Start 09/21/16 at 15 :00 Hydromorphone HCl (Dilaudid) 0.5 mg Q2H PRN IV PAIN Last administered on 09:25; Admin Dose 0.5 MG; Start 09/21/16 at 15:00 Hydromorphone HCl (Dilaudid) 1 mg Q2H PRN IV PAIN Last administered on 18:31; Admin Dose 1 MG; Start 09/21/16 at 15:00 Docusate Sodium (Colace) 100 mg BID PRN PO CONSTIPATION; Start 09/21/16 at 15: 00 Docusate Sodium (Colace Liquid Cup) 100 mg BID NGT Last administered on 10:20; Admin Dose 100 MG; Start 09/22/16 at 21:00 IV Flush (NS 10 ml) 10 ml PRN PRN IV IV PROTOCOL; Start 09/25/16 at 12:00 Spironolactone 50 mg 50 mg DAILY NGT Last administered on 10/28/16 10:21; Admin Dose 50 MG; Start 09/28/16 at 09:00 Dopamine HCl/ Dextrose 250 ml @ 6.053 mls/ hr TITRATE IV Last administered on 09/30/16 04:46; Admin Dose 6.053 MLS/HR; Start 09/29/16 at 11:00 Phenylephrine HCl/ Dextrose (Marcell-Syneph/D5W) 500 ml @ 75 mls/hr TITRATE IV ; Start 09/29/16 at 14:00 Lorazepam 0.5 mg 0.5 mg Q6H PRN IV AGITATION/ANXIETY Last administered on 08:00; Admin Dose 0.5 MG; Start 10/05/16 at 23:00 Fentanyl (Sublimaze) 100 ml @ 2.5 mls/hr TITRATE IV Last administered on 06:44; Admin Dose 3 MLS/HR; Start 10/07/16 at 09:30 Nystatin (Nystatin Susp) 5 ml QID PO Last administered on 10/28/16 13:03; Admin Dose 5 ML; Start 10/19/16 at 13:00 Diphenhydramine HCl 25 mg 25 mg Q6H PRN IV PRURITUS Last administered on 10:49; Admin Dose 25 MG; Start 10/23/16 at 10:30 Fluconazole (Diflucan 400 Mg/ NS (Pmx)) 200 ml @ 100 mls/hr TID IVPB Last administered on 10/28/16 12:39; Admin Dose 100 MLS/HR; Start 10/23/16 at 21:00 Loratadine (Claritin) 10 mg DAILY PO Last administered on 10/28/16 10:21; Admin Dose 10 MG; Start 10/23/16 at 15:00 Lansoprazole (Prevacid) 30 mg BID@06,18 NGT Last administered on 10/28/16 05: 22; Admin Dose 30 MG; Start 10/23/16 at 18:00 Midodrine 5 mg 5 mg BID@,17 PO Last administered on 10/28/16 10:20; Admin Dose 5 MG; Start 10/26/16 at 17:00 Aztreonam 50 ml @ 100 mls/hr Q12H IVPB Last administered on 10/28/16 11:46; Admin Dose 100 MLS/HR; Start 10/27/16 at 22:00 Doxycycline Hyclate/Sodium Chloride (Vibramycin/NS) 250 ml @ 250 mls/hr Q12H IVPB Last administered on 10/28/16 11:00; Admin Dose 250 MLS/HR; Start at 23:00 CORINA ESTRELLA NP Oct 28, 2016 13:59
--- NOTE | 2016-10-28 16:07 | PN ---
Date/Time of Note Date/Time of Note DATE: 10/28/16 TIME: 16:03 Assessment/Plan VTE Prophylaxis VTE Prophylaxis Intervention: SCD's Lines/Catheters IV Catheter Type (from Nrs): PICC Line Central line still needed: Yes Urinary Cath still in place: Yes Reason Cath still needed: pres ulcer contaminated by urine Assessment/Plan Assessment/Plan 70 yo F with h/o hydrocephalus with previous VPS admitted for sigmoid abscess. hospital stay cb sepsis, colon perforation with multiple abd fluid collections , also recurrent respiratory failure warranting trach, pleural effusion with thora c/b by PTX (chest tube removed) 1. Sigmoid colon abscess 2/2 diverticulitis - s/p sigmoid colectomy with end colostomy (Reid's procedure) and adhesiolysis on 09/21/16 - cont abx and gen surg care and drain management 2. Ventilator dependent respiratory failure: sp trach 3 Left pleural effusion: Status post thoracentesis, complicated with pneumothorax status post placement of a chest tube, removal of chest tube per pulmonology CHEST TUBE PULLED 8.11 4. History of ICH, s/p VPS placement, with subsequent externalization of drain : Neurosurg on board -ID following closely. Pt with +serum crypto Ag, no evidence of crypto in CSF, ID narrowed antifungal to diflucan VPS ligated 8.11 BY NS 5. Paroxysmal A. fib: Now in sinus rhythm status post amiodarone. Cardiology on board 6. Acute renal insufficiency: Resolved. 7. s/p NSTEMI: Likely secondary to septic shock. 8. Anemia: unclear etio of acute on chronic. 9. Dysphagia Status post PEG tube placement 10. RUE DVT: hold lovenox given anemia 11. hypotension: started on midodrine 12. 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 ID following transfer to [facility] for LTAC Subjective 24 Hr Interval Summary Free Text/Dictation no gross changes from when I went off service last week Exam/Review of Systems Vital Signs Vitals Vital Signs Date Time Temp Pulse Resp B/P Pulse Ox O2 Delivery O2 Flow Rate FiO2 10/28/16 15:06 101 20 100 30 10/28/16 14:00 104/60 Mechanical Ventilator 10/28/16 12:00 98.7 Intake and Output 10/27/16 10/27/16 10/28/16 15:00 23:00 07:00 Intake Total 201.87 ml 1370 ml 730 ml Output Total 660 ml 435 ml Balance 201.87 ml 710 ml 295 ml Exam laying in bed, trached lungs clear no mrg abd with PEG, wound vac, ostomy no rashes no edema Results Result Diagram: 10/28/16 0400 10/28/16 0400 Results 24 hrs Laboratory Tests Test 10/28/16 04:00 White Blood Count 13.0 H Red Blood Count 2.34 L Hemoglobin 6.9 *L Hematocrit 21.0 L Mean Corpuscular Volume 89.7 Mean Corpuscular Hemoglobin 29.5 Mean Corpuscular Hemoglobin Concent 32.9 Red Cell Distribution Width 18.3 H Platelet Count 240 Mean Platelet Volume 12.0 H Neutrophils % 84.7 H Lymphocytes % 7.1 L Monocytes % 4.3 Eosinophils % 2.1 Basophils % 0.1 Nucleated Red Blood Cells % 0.0 Neutrophils # (Manual) 11 H Lymphocytes # 0.9 Monocytes # 0.6 Eosinophils # 0.3 Basophils # 0.0 Nucleated Red Blood Cells # 0.0 Sodium Level 137 Potassium Level 4.6 Chloride Level 96 L Carbon Dioxide Level 32 H Anion Gap 14 Blood Urea Nitrogen 32 H Creatinine 0.47 Glucose Level 124 Calcium Level 5.7 *L Magnesium Level 2.0 Medications Medications Current Medications Ondansetron HCl (Zofran Inj) 4 mg Q6H PRN IV NAUSEA AND/OR VOMITING Last administered on 09/26/16 09:23; Admin Dose 4 MG; Start 09/16/16 at 00:30 Acetaminophen (Tylenol Tab) 650 mg Q6H PRN PO PAIN LEVEL 1-3 OR FEVER Last administered on 10/08/16 12:47; Admin Dose 650 MG; Start 09/16/16 at 00:30 Polyethylene Glycol 17 gm 17 gm DAILY PO Last administered on 10/28/16 10:20; Admin Dose 17 GM; Start 09/20/16 at 11:00 Norepinephrine/ Dextrose (Levophed/D5W) 500 ml @ 1.87 mls/hr TITRATE IV Last administered on 10/27/16 05:24; Admin Dose 1.87 MLS/HR; Start 09/21/16 at 09:00 Acetaminophen/ Hydrocodone Bitart ([place] (5/325)) 1 tab Q4H PRN PO PAIN LEVEL 4 -7 Last administered on 09/28/16 21:20; Admin Dose 1 TAB; Start 09/21/16 at 15: 00 Acetaminophen/ Hydrocodone Bitart ([place] (5/325)) 2 tab Q4H PRN PO PAIN LEVEL 7 -10 Last administered on 10/21/16 08:49; Admin Dose 2 TAB; Start 09/21/16 at 15 :00 Hydromorphone HCl (Dilaudid) 0.5 mg Q2H PRN IV PAIN Last administered on 09:25; Admin Dose 0.5 MG; Start 09/21/16 at 15:00 Hydromorphone HCl (Dilaudid) 1 mg Q2H PRN IV PAIN Last administered on 18:31; Admin Dose 1 MG; Start 09/21/16 at 15:00 Docusate Sodium (Colace) 100 mg BID PRN PO CONSTIPATION; Start 09/21/16 at 15: 00 Docusate Sodium (Colace Liquid Cup) 100 mg BID NGT Last administered on 10:20; Admin Dose 100 MG; Start 09/22/16 at 21:00 IV Flush (NS 10 ml) 10 ml PRN PRN IV IV PROTOCOL; Start 09/25/16 at 12:00 Spironolactone 50 mg 50 mg DAILY NGT Last administered on 10/28/16 10:21; Admin Dose 50 MG; Start 09/28/16 at 09:00 Dopamine HCl/ Dextrose 250 ml @ 6.053 mls/ hr TITRATE IV Last administered on 09/30/16 04:46; Admin Dose 6.053 MLS/HR; Start 09/29/16 at 11:00 Phenylephrine HCl/ Dextrose (Marcell-Syneph/D5W) 500 ml @ 75 mls/hr TITRATE IV ; Start 09/29/16 at 14:00 Lorazepam 0.5 mg 0.5 mg Q6H PRN IV AGITATION/ANXIETY Last administered on 08:00; Admin Dose 0.5 MG; Start 10/05/16 at 23:00 Fentanyl (Sublimaze) 100 ml @ 2.5 mls/hr TITRATE IV Last administered on 06:44; Admin Dose 3 MLS/HR; Start 10/07/16 at 09:30 Nystatin (Nystatin Susp) 5 ml QID PO Last administered on 10/28/16 13:03; Admin Dose 5 ML; Start 10/19/16 at 13:00 Diphenhydramine HCl 25 mg 25 mg Q6H PRN IV PRURITUS Last administered on 10:49; Admin Dose 25 MG; Start 10/23/16 at 10:30 Fluconazole (Diflucan 400 Mg/ NS (Pmx)) 200 ml @ 100 mls/hr TID IVPB Last administered on 10/28/16 12:39; Admin Dose 100 MLS/HR; Start 10/23/16 at 21:00 Loratadine (Claritin) 10 mg DAILY PO Last administered on 10/28/16 10:21; Admin Dose 10 MG; Start 10/23/16 at 15:00 Lansoprazole (Prevacid) 30 mg BID@06,18 NGT Last administered on 10/28/16 05: 22; Admin Dose 30 MG; Start 10/23/16 at 18:00 Midodrine 5 mg 5 mg BID@09,17 PO Last administered on 10/28/16 10:20; Admin Dose 5 MG; Start 10/26/16 at 17:00 Aztreonam 50 ml @ 100 mls/hr Q12H IVPB Last administered on 10/28/16 11:46; Admin Dose 100 MLS/HR; Start 10/27/16 at 22:00 Doxycycline Hyclate/Sodium Chloride (Vibramycin/NS) 250 ml @ 250 mls/hr Q12H IVPB Last administered on 10/28/16 11:00; Admin Dose 250 MLS/HR; Start at 23:00 ALEKS RAINEY MD Oct 28, 2016 16:07
[2016-10-28 16:21] LABS: HEMATOCRIT 22.8 % (37.0-47.0); HEMOGLOBIN 7.3 g/dl (12.0-16.0)
[2016-10-29] VITALS (36 sets, daily range): BP systolic 86–133; BP diastolic 48–84; PULSE 88–106; RESP 18–30
[2016-10-29] MEDS: IPRATROPIUM (HFA) 12.9 GM INHALER INH SCH ×6 (01:24→21:19)
[2016-10-29] MEDS: ALBUTEROL 18 GM INHALER INH SCH ×6 (01:24→21:19)
[2016-10-29] MEDS: LANSOPRAZOLE 30 MG CAP NGT SCH ×2 (06:19→18:23)
[2016-10-29] MEDS: FUROSEMIDE 20 MG INJ IV SCH ×2 (06:19→18:23)
[2016-10-29 07:14] LABS: ABNORMAL IP MESSAGE 1; BASOPHILS % 0.1 % (0.0-2.0); EOSINOPHILS # 0.3 10^3/ul (0.0-0.5); EOSINOPHILS % 2.6 % (0.0-7.0); HEMATOCRIT 21.4 % (37.0-47.0); LYMPHOCYTES # 1.3 10^3/ul (0.8-2.9); LYMPHOCYTES % 12.1 % (15.0-51.0); MEAN CORPUSCULAR HEMOGLOBIN 28.8 pg (29.0-33.0); MEAN CORPUSCULAR HGB CONC 32.2 g/dl (32.0-37.0); MEAN CORPUSCULAR VOLUME 89.2 fl (82.0-101.0); MEAN PLATELET VOLUME 11.7 fl (7.4-10.4); MONOCYTE # 0.7 10^3/ul (0.3-0.9); MONOCYTES % 6.1 % (0.0-11.0); NEUTROPHILS % 77.5 % (39.0-77.0); PLATELET COUNT 323 10^3/UL (140-415); RED CELL DISTRIBUTION WIDTH 18.4 % (11.5-14.5); WHITE BLOOD COUNT 11.1 10^3/ul (4.8-10.8)
--- NOTE | 2016-10-29 07:23 | PN ---
Date/Time of Note Date/Time of Note DATE: 10/29/16 TIME: 07:21 Assessment/Plan Lines/Catheters IV Catheter Type (from Nrsg): PICC Line Shore in Place (from Nrsg): Yes Assessment/Plan Chief Complaint/Hosp Course This is a 70-year-old female admitted with a perforated colon and contained abscess underwent a drainage procedure on further colonic procedures patient is currently in the intensive care unit unable to come off the ventilator secondary to multiple medical problems Patient was extubated and had to be input intubated again has been treated for septic shock lactic acidosis peritonitis currently has an end colostomy Helio pouch and has undergone colon resection patient also has a right-sided chest tube for a pneumothorax She was reintubated again Status post tracheostomy We will continue pulmonary toilet Trach care Vent support Pulmonary toilet Patient DNR supp care Problems: Subjective 24 Hr Interval Summary Constitutional: improved Pain Control: mild Exam/Review of Systems Vital Signs Vitals Vital Signs Date Time Temp Pulse Resp B/P Pulse Ox O2 Delivery O2 Flow Rate FiO2 10/29/16 06:15 97 27 100 30 10/29/16 03:00 96/51 Mechanical Ventilator 10/29/16 00:00 98.6 Intake and Output 10/28/16 10/28/16 10/29/16 15:00 23:00 07:00 Intake Total 1380 ml 680 ml Output Total 555 ml 620 ml Balance 825 ml 60 ml Exam Neck: non-tender, supple Respiratory: clear to auscultation, normal air movement Cardiovascular: nl pulses, regular rate and rhythm Gastrointestinal: nl liver, spleen, non-tender, soft Results Result Diagram: 10/28/16 1547 10/28/16 0400 GIL PINEDA MD Oct 29, 2016 07:22
[2016-10-29 07:30] LABS: POSITIVE DIFF @See below
[2016-10-29 07:32] LABS: HEMOGLOBIN 6.9 g/dl (12.0-16.0)
[2016-10-29] MEDS: FLUCONAZOLE 400 MG/NS (PMX) 200 ML IVPB SCH ×3 (08:16→20:41)
[2016-10-29] MEDS: DOCUSATE SODIUM 10 MG/ML (10ML CUP) NGT SCH ×2 (08:17→20:41)
[2016-10-29] MEDS: SPIRONOLACTONE 50 MG TAB NGT SCH (08:17)
[2016-10-29] MEDS: LORATADINE 10 MG TAB PO SCH (08:17)
[2016-10-29] MEDS: POLYETHYLENE GLYCOL 17 GM PACKET PO SCH (08:17)
[2016-10-29] MEDS: NYSTATIN SUSP 5 ML CUP PO SCH ×4 (08:17→20:41)
[2016-10-29] MEDS: BALSAM PERU/CASTOR OIL 60 GM TUBE TOP SCH (08:18)
[2016-10-29] MEDS: MIDODRINE 5 MG TAB PO SCH ×2 (08:18→18:23)
[2016-10-29] MEDS: AZTREONAM 1 GM/NS (PMX) 50 ML IVPB SCH ×2 (10:17→23:19)
[2016-10-29] MEDS ORDERED: SOD CHLORIDE 0.9% 250 ML IV* ONE (11:18)
--- NOTE | 2016-10-29 11:26 | DS ---
Date/Time of Note Date/Time of Note DATE: 10/29/16 TIME: 11:13 Discharge Summary Admission/Discharge Info Admit Date/Time Sep 15, 2016 at 21:35 Discharge Date/Time Discharge Diagnosis sigmoid abscess, sepsis, colon perforation with multiple abd fluid collections warranting drainage, respiratory failure warranting trach, pleural effusion with thora c/b by PTX (chest tube removed 8.11), paroxysmal AFib. Patient Condition: Guarded Consults general surgery, pulmonology, cardiology, infectious disease, palliative care, neurosurgery, GI Procedures 8.16 PROCEDURE: CT-guided drainage of a perihepatic collection CLINICAL INDICATION: Posterior perihepatic fluid collection TECHNIQUE: Under direct CT guidance, a 19 Ga needle was advanced into the fluid collection and a guidewire was advanced as confirmed by CT guidance. The needle was exchanged over the wire for an 8.5 [place] drainage tube which was placed within the fluid collection. Approximately 40 cc's of grossly purulent fluid were aspirated with a specimen sent for culture and sensitivity. The catheter was connected to a drainage bag and sutured to the patient's skin. FINDINGS: Posterior perihepatic fluid collection. IMPRESSION: Uncomplicated placement of an 8.5-[place] drain within a posterior perihepatic fluid collection with aspiration of 40 cc of purulent fluid sent for culture and sensitivity. 8.11 R sided chest tube pulled VPS ligated 8.6 PROCEDURE: CT abdominal drainage CLINICAL INDICATION: Abdominal fluid collection TECHNIQUE: Consent: The procedure, risks, complications and alternatives were explained to the patient. A signed written informed consent was obtained. Technique/results: The patient was laid supine on the CT table. Preliminary CT scan through the abdomen and pelvis redemonstrates a right upper quadrant perihepatic fluid collection. Under CT guidance, a Yueh needle was advanced into the collection. Yueh sheath was exchanged over an Amplatz wire for dilators followed by an 8.5 [place] multipurpose drain. 10 cc of pus was removed and sent for laboratory tests. The drain was attached to an accordion drainage bag and secured in place using suture and a stat lock. FINDINGS: Successful CT-guided perihepatic abscess drainage 8.4 trach 8.2: EGD/PEG 7.25 UE duplex IMPRESSION: DVT involving the right basilic vein and right subclavian vein. 7.24 R sided thoracentesis (complicated by PTX) 7.18 OPERATION: 1. Reentry through recent laparotomy incision with exploration of abdominal cavity 2. Takedown of colostomy 3. Completion left hemicolectomy with resection of distal transverse colon 3. Lysis of adhesions 4. Abdominal lavage 5. Performance of an colostomy 7.15 sigmoid colectomy with end colostomy (Reid's procedure) and adhesiolysis VPS externalized Hx of Present Illness Chief complaint: Abdominal pain This is a 70-year-old female who presented to the ED at [facility] complaining of abdominal pain. Patient is now postop day 3 of pigtail drain for diverticulitis with intramural axis is done at [facility]. She was presenting with stool coming from her pigtail catheter earlier in the morning on 09/15/2016. She had worsening abdominal pain and nonbilious vomiting. Her pain at that time was moderate to severe throughout the abdomen, nonradiating no fevers no dysuria and her last bowel movement was earlier that day no diarrhea no blood. Upon my examination currently at the bedside, patient does state that she has left-sided abdominal pain. She was hesitant to receive any IV pain medications as she was worried about getting addicted. After discussion regarding the pain medication she was agreeable to having them in small doses. Allergies: Penicillins Medications: See MAR Hospital Course 70 yo F with h/o hydrocephalus with previous VPS admitted for sigmoid abscess for which pt underwent sigmoid colectomy with end colostomy (Reid's procedure ) and adhesiolysis on 09/21/16 . Hospital stay was complicated sepsis, colon perforation with multiple abd fluid collections warranting drainage, also recurrent respiratory failure warranting trach, pleural effusion with thora c/b by PTX (chest tube removed 8.11), paroxysmal AFib. Regarding pt's h/o hydrocephalus and VPS status, drain externalized shortly after admission given abd infection. VPS subsequently ligated 8.11 by NS with no subsequent hydrocephalus appreciated. Pt with frequent hypotension for which she was started on midodrine. Pt with incidental finding of + serum cyrptococcal Ag. Given that ET tube culture with mold, concern for systemic cryptococcus from primary pulmonary source. Pt started on antifungal therapy by ID. Pt noted to have RUE swelling, found to have RUE DVT on duplex, however ATC on hold given low hgb. Home Meds Reported Medications Nystatin (Nystatin) 100,000 Unit/1 Ml Oral.susp, 5 ML PO TID for 7 Days, #60 ML 09/15/16 Metronidazole* (Flagyl*) 500 Mg Tablet, 500 MG PO TID, TAB 09/15/16 Oxycodone HCl/Acetaminophen (Percocet 10-325 mg Tablet) 1 Each Tablet, 1 EACH PO Q8 Y for PAIN, TAB 09/15/16 Levofloxacin (Levofloxacin) 500 Mg/20 Ml Solution, 500 MG PO DAILY, ML 09/15/16 Follow-up Plan [facility] Primary Care Provider Pacheco Chu Time spent on discharge: > 30 minutes Pending Labs Laboratory Tests Test 10/28/16 15:47 10/29/16 06:13 Hemoglobin 7.3g/dl (12.0-16.0) 6.9g/dl (12.0-16.0) Hematocrit 22.8% (37.0-47.0) 21.4% (37.0-47.0) White Blood Count 11.110^3/ul (4.8-10.8) Red Blood Count 2.4010^6/ul (4.20-5.40) Mean Corpuscular Volume 89.2fl (82.0-101.0) Mean Corpuscular Hemoglobin 28.8pg (29.0-33.0) Mean Corpuscular Hemoglobin Concent 32.2g/dl (32.0-37.0) Red Cell Distribution Width 18.4% (11.5-14.5) Platelet Count 83332^3/UL (140-415) Mean Platelet Volume 11.7fl (7.4-10.4) Neutrophils % 77.5% (39.0-77.0) Lymphocytes % 12.1% (15.0-51.0) Monocytes % 6.1% (0.0-11.0) Eosinophils % 2.6% (0.0-7.0) Basophils % 0.1% (0.0-2.0) Nucleated Red Blood Cells % 0.0/100WBC (0.0-0.0) Neutrophils # (Manual) 910^3/ul (1.7-7.5) Lymphocytes # 1.310^3/ul (0.8-2.9) Monocytes # 0.710^3/ul (0.3-0.9) Eosinophils # 0.310^3/ul (0.0-0.5) Basophils # 0.010^3/ul (0.0-0.1) Nucleated Red Blood Cells # 0.010^3/ul (0.0-0.0) ALEKS RAINEY MD Oct 29, 2016 11:24 ALEKS RAINEY MD Oct 29, 2016 11:24
--- NOTE | 2016-10-29 11:34 | CONS ---
Date/Time of Note Date/Time of Note DATE: 10/29/16 TIME: 11:33 Consult Date/Type/Reason Admit Date/Time Sep 15, 2016 at 21:35 Initial Consult Date 09/21/16 Type of Consultation: Pulmonary Subjective No significant changes. Objective Vital Signs Date Time Temp Pulse Resp B/P Pulse Ox O2 Delivery O2 Flow Rate FiO2 10/29/16 09:29 93 29 100 30 10/29/16 09:00 114/48 Mechanical Ventilator 10/29/16 08:00 98.0 Intake and Output 10/28/16 10/28/16 10/29/16 15:00 23:00 07:00 Intake Total 1380 ml 680 ml 700 ml Output Total 555 ml 620 ml 790 ml Balance 825 ml 60 ml -90 ml Exam GENERAL: VITAL SIGNS: per chart NECK: Supple. No JVD or lymphadenopathy. CARDIAC EXAM: S1, S2. No added sounds or murmurs. CHEST: clear bilaterally, No added sounds, rales or wheezes ABDOMEN: Soft, nontender. No guarding or rebound. EXTREMITIES: No cyanosis, clubbing or edema. NEUROLOGIC: Generalized weakness. No focal deficits. elderly lady appears comfortable at rest on mechanical ventilation. Results/Medications Result Diagram: 10/29/16 0613 10/28/16 0400 Results 24 hrs Laboratory Tests Test 10/28/16 15:47 10/29/16 06:13 Hemoglobin 7.3 L 6.9 *L Hematocrit 22.8 L 21.4 L White Blood Count 11.1 H Red Blood Count 2.40 L Mean Corpuscular Volume 89.2 Mean Corpuscular Hemoglobin 28.8 L Mean Corpuscular Hemoglobin Concent 32.2 Red Cell Distribution Width 18.4 H Platelet Count 323 # Mean Platelet Volume 11.7 H Neutrophils % 77.5 H Lymphocytes % 12.1 L Monocytes % 6.1 Eosinophils % 2.6 Basophils % 0.1 Nucleated Red Blood Cells % 0.0 Neutrophils # (Manual) 9 H Lymphocytes # 1.3 Monocytes # 0.7 Eosinophils # 0.3 Basophils # 0.0 Nucleated Red Blood Cells # 0.0 Medications Current Medications Ondansetron HCl (Zofran Inj) 4 mg Q6H PRN IV NAUSEA AND/OR VOMITING Last administered on 09/26/16t 09:23; Admin Dose 4 MG; Start 09/16/16 at 00:30 Acetaminophen (Tylenol Tab) 650 mg Q6H PRN PO PAIN LEVEL 1-3 OR FEVER Last administered on 10/08/16 12:47; Admin Dose 650 MG; Start 09/16/16 at 00:30 Polyethylene Glycol (Miralax) 17 gm DAILY PO Last administered on 10/29/16 08: 17; Admin Dose 17 GM; Start 09/20/16 at 11:00 Acetaminophen/ Hydrocodone Bitart ([place] (5/325)) 1 tab Q4H PRN PO PAIN LEVEL 4 -7 Last administered on 09/28/16 21:20; Admin Dose 1 TAB; Start 09/21/16 at 15: 00 Acetaminophen/ Hydrocodone Bitart ([place] (5/325)) 2 tab Q4H PRN PO PAIN LEVEL 7 -10 Last administered on 10/21/16 08:49; Admin Dose 2 TAB; Start 09/21/16 at 15 :00 Hydromorphone HCl (Dilaudid) 0.5 mg Q2H PRN IV PAIN Last administered on 09:25; Admin Dose 0.5 MG; Start 09/21/16 at 15:00 Hydromorphone HCl (Dilaudid) 1 mg Q2H PRN IV PAIN Last administered on 18:31; Admin Dose 1 MG; Start 09/21/16 at 15:00 Docusate Sodium (Colace) 100 mg BID PRN PO CONSTIPATION; Start 09/21/16 at 15: 00 Docusate Sodium (Colace Liquid Cup) 100 mg BID NGT Last administered on 08:17; Admin Dose 100 MG; Start 09/22/16 at 21:00 IV Flush (NS 10 ml) 10 ml PRN PRN IV IV PROTOCOL; Start 09/25/16 at 12:00 Spironolactone (Aldactone) 50 mg DAILY NGT Last administered on 10/29/16 08:17 ; Admin Dose 50 MG; Start 09/28/16 at 09:00 Lorazepam (Ativan) 0.5 mg Q6H PRN IV AGITATION/ANXIETY Last administered on 08:00; Admin Dose 0.5 MG; Start 10/05/16 at 23:00 Nystatin (Nystatin Susp) 5 ml QID PO Last administered on 10/29/16 08:17; Admin Dose 5 ML; Start 10/19/16 at 13:00 Diphenhydramine HCl 25 mg 25 mg Q6H PRN IV PRURITUS Last administered on 10:49; Admin Dose 25 MG; Start 10/23/16 at 10:30 Fluconazole (Diflucan 400 Mg/ NS (Pmx)) 200 ml @ 100 mls/hr TID IVPB Last administered on 10/29/16 08:16; Admin Dose 100 MLS/HR; Start 10/23/16 at 21:00 Loratadine (Claritin) 10 mg DAILY PO Last administered on 10/29/16 08:17; Admin Dose 10 MG; Start 10/23/16 at 15:00 Lansoprazole (Prevacid) 30 mg BID@06,18 NGT Last administered on 10/29/16 06: 19; Admin Dose 30 MG; Start 10/23/16 at 18:00 Midodrine 5 mg 5 mg BID@09,17 PO Last administered on 10/29/16 08:18; Admin Dose 5 MG; Start 10/26/16 at 17:00 Aztreonam 50 ml @ 100 mls/hr Q12H IVPB Last administered on 10/29/16 10:17; Admin Dose 100 MLS/HR; Start 10/27/16 at 22:00 Doxycycline Hyclate/Sodium Chloride (Vibramycin/NS) 250 ml @ 250 mls/hr Q12H IVPB Last administered on 10/28/16 23:08; Admin Dose 250 MLS/HR; Start at 23:00 Assessment/Plan Chief Complaint/Hosp Course IMP: 1. Status post septic shock persistent severe leukocytosis. Intermittent vasopressor requirement 2. Ongoing anemia. Patient is currently stable 3. Encephalopathy toxic metabolic, resolving 4. VDRF status post tracheostomy currently stable on SIMV settings. Further weaning on hold 5. Bilateral pulmonary infiltrates 6. 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 7. Status post right-sided pneumothorax following thoracentesis now resolved with chest tube removed 8. Upper extremity vein thrombosis however anticoagulation held secondary to drop in hemoglobin. RECS: 1. Continue surgery recommendations, 2. Continue antibiotics per infectious diseases 3. Vent support continue current SIMV settings hold further weaning until hemodynamically stable 4. Replete K+ and Mg 5. Monitor H&H agree with transfer 1 unit packed red blood cells 6. Continue feeding as tolerated Disposition Transfer to [facility] Problems: DAMIEN GUADARRAMA MD, [facility] Oct 29, 2016 11:34
[2016-10-29] MEDS: DOXYCYCLINE 100 MG in SOD CHLORIDE 0.9% 250 ML IVPB SCH ×2 (11:43→23:19)
--- NOTE | 2016-10-29 11:46 | CONS ---
Date/Time of Note Date/Time of Note DATE: 10/29/16 TIME: 11:45 Assessment/Plan Assessment/Plan Additional Assessment/Plan Being transferred to [place] Consultation Date/Type/Reason Admit Date/Time Sep 15, 2016 at 21:35 Initial Consult Date 09/21/16 Type of Consultation: palliatice Care Exam/Review of Systems Vital Signs Vitals Vital Signs Date Time Temp Pulse Resp B/P Pulse Ox O2 Delivery O2 Flow Rate FiO2 10/29/16 09:29 93 29 100 30 10/29/16 09:00 114/48 Mechanical Ventilator 10/29/16 08:00 98.0 Intake and Output 10/28/16 10/28/16 10/29/16 15:00 23:00 07:00 Intake Total 1380 ml 680 ml 700 ml Output Total 555 ml 620 ml 790 ml Balance 825 ml 60 ml -90 ml Results Result Diagram: 10/29/16 0613 10/28/16 0400 Results 24 hrs Laboratory Tests Test 10/28/16 15:47 10/29/16 06:13 Hemoglobin 7.3 L 6.9 *L Hematocrit 22.8 L 21.4 L White Blood Count 11.1 H Red Blood Count 2.40 L Mean Corpuscular Volume 89.2 Mean Corpuscular Hemoglobin 28.8 L Mean Corpuscular Hemoglobin Concent 32.2 Red Cell Distribution Width 18.4 H Platelet Count 323 # Mean Platelet Volume 11.7 H Neutrophils % 77.5 H Lymphocytes % 12.1 L Monocytes % 6.1 Eosinophils % 2.6 Basophils % 0.1 Nucleated Red Blood Cells % 0.0 Neutrophils # (Manual) 9 H Lymphocytes # 1.3 Monocytes # 0.7 Eosinophils # 0.3 Basophils # 0.0 Nucleated Red Blood Cells # 0.0 Medications Medications Current Medications Ondansetron HCl (Zofran Inj) 4 mg Q6H PRN IV NAUSEA AND/OR VOMITING Last administered on 09/26/16 09:23; Admin Dose 4 MG; Start 09/16/16 at 00:30 Acetaminophen (Tylenol Tab) 650 mg Q6H PRN PO PAIN LEVEL 1-3 OR FEVER Last administered on 10/08/16 12:47; Admin Dose 650 MG; Start 09/16/16 at 00:30 Polyethylene Glycol (Miralax) 17 gm DAILY PO Last administered on 10/29/16 08: 17; Admin Dose 17 GM; Start 09/20/16 at 11:00 Acetaminophen/ Hydrocodone Bitart ([place] (5/325)) 1 tab Q4H PRN PO PAIN LEVEL 4 -7 Last administered on 09/28/16 21:20; Admin Dose 1 TAB; Start 09/21/16 at 15: 00 Acetaminophen/ Hydrocodone Bitart ([place] (5/325)) 2 tab Q4H PRN PO PAIN LEVEL 7 -10 Last administered on 10/21/16 08:49; Admin Dose 2 TAB; Start 09/21/16 at 15 :00 Hydromorphone HCl (Dilaudid) 0.5 mg Q2H PRN IV PAIN Last administered on 09:25; Admin Dose 0.5 MG; Start 09/21/16 at 15:00 Hydromorphone HCl (Dilaudid) 1 mg Q2H PRN IV PAIN Last administered on 18:31; Admin Dose 1 MG; Start 09/21/16 at 15:00 Docusate Sodium (Colace) 100 mg BID PRN PO CONSTIPATION; Start 09/21/16 at 15: 00 Docusate Sodium (Colace Liquid Cup) 100 mg BID NGT Last administered on 08:17; Admin Dose 100 MG; Start 09/22/16 at 21:00 IV Flush (NS 10 ml) 10 ml PRN PRN IV IV PROTOCOL; Start 09/25/16 at 12:00 Spironolactone (Aldactone) 50 mg DAILY NGT Last administered on 10/29/16 08:17 ; Admin Dose 50 MG; Start 09/28/16 at 09:00 Lorazepam (Ativan) 0.5 mg Q6H PRN IV AGITATION/ANXIETY Last administered on 08:00; Admin Dose 0.5 MG; Start 10/05/16 at 23:00 Nystatin (Nystatin Susp) 5 ml QID PO Last administered on 10/29/16 08:17; Admin Dose 5 ML; Start 10/19/16 at 13:00 Diphenhydramine HCl 25 mg 25 mg Q6H PRN IV PRURITUS Last administered on 10:49; Admin Dose 25 MG; Start 10/23/16 at 10:30 Fluconazole (Diflucan 400 Mg/ NS (Pmx)) 200 ml @ 100 mls/hr TID IVPB Last administered on 10/29/16 08:16; Admin Dose 100 MLS/HR; Start 10/23/16 at 21:00 Loratadine (Claritin) 10 mg DAILY PO Last administered on 10/29/16 08:17; Admin Dose 10 MG; Start 10/23/16 at 15:00 Lansoprazole (Prevacid) 30 mg BID@06,18 NGT Last administered on 10/29/16 06: 19; Admin Dose 30 MG; Start 10/23/16 at 18:00 Midodrine 5 mg 5 mg BID@, PO Last administered on 10/29/16 08:18; Admin Dose 5 MG; Start 10/26/16 at 17:00 Aztreonam 50 ml @ 100 mls/hr Q12H IVPB Last administered on 10/29/16 10:17; Admin Dose 100 MLS/HR; Start 10/27/16 at 22:00 Doxycycline Hyclate/Sodium Chloride (Vibramycin/NS) 250 ml @ 250 mls/hr Q12H IVPB Last administered on 10/29/16 11:43; Admin Dose 250 MLS/HR; Start at 23:00 YANETH VIDAL Oct 29, 2016 11:46
--- NOTE | 2016-10-29 16:52 | PN ---
DATE: 10/29/2016 SUBJECTIVE DATA: No events overnight. The patient is lying comfortably in bed. She is lethargic, arousable, and in no distress. OBJECTIVE DATA: Temperature 98, pulse 95, respirations 20, blood pressure 114/64, and saturation 100 on vent. LABORATORY AND DIAGNOSTIC DATA: WBC 11.1, H and H 6.9 and 21.4, platelets 323, neutrophils 77.5, BUN 32, and creatinine 0.47. CULTURES: Repeat blood culture on October 27 negative. INDWELLINGS: Trach, PEG, [place], PICC line, and multiple intra- abdominal drainage catheters. ANTIMICROBIALS: Doxycycline, Azactam, and fluconazole. ALLERGIES: PENICILLIN. PHYSICAL EXAMINATION: GENERAL: Cachectic, fragile elderly woman who is in no distress. HEENT: Head atraumatic, normocephalic. Sclerae anicteric. Buccal mucosa dry. NECK: Supple. Tracheostomy present. CHEST: Rise symmetrical. Breath sounds diminished at bases. HEART: S1, S2. ABDOMEN: Soft, bowel sounds present. EXTREMITIES: Without cyanosis. ASSESSMENT: 1. Resolving sepsis, status post shock. 2. 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 3. Cerebrospinal fluid (CSF) cultures have been negative. 4. Coag-negative Staph bacteremia consistent with contaminant. 5. Status post perforated sigmoid colon repair with intra- abdominal abscesses drainage on 10/23/2016, fluid cultures being negative. 6. Deep venous thrombosis (DVT). 7. History of pneumothorax status post chest tube removed. 8. History of ventriculoperitoneal (BAND BOOKER) shunt externalization with ligation. 9. Resolving rash. 10. Allergy to penicillin. 11. Acute on chronic anemia. PLAN: 1. The patient remains stable off pressors. 2. Continue present care. 3. Continue on high-dose Diflucan for indefinite time. 4. We will keep her on antibiotics for a couple more days. 5. Transfuse as needed. 6. Monitor H and H. Dictated By: Kathy Lopez NP /rhina/shari /Document#: [id number]
--- NOTE | 2016-10-29 19:49 | PN ---
Date/Time of Note Date/Time of Note DATE: 10/29/16 TIME: 19:46 Assessment/Plan Lines/Catheters IV Catheter Type (from Nrsg): PICC Line Shore in Place (from Nrsg): Yes Assessment/Plan Assessment/Plan [facility] Progress Note Date of Service: 10/29/2016 Place of service: [facility] ICU Today's Assessment & Plan: Overall still improving, all be it slowly. No evidence for active hemorrhage; low Hg likely from chronic illness. Will recheck and transfuse if less than 7. No other major uncontrolled issue. No indication for acute surgical intervention. Main issue at this point is halfway recovery and patient's will to do the needed work. Awaiting bed in telemetry. Please note that the patient is not ready to go to long-term acute care facility until she has had a few days of stability outside of the ICU here in the hospital. Patient's abdominal skin also is excoriated and will need much more aggressive wound care. I have asked ostomy nurses to get back involved and for the wound VAC to get discontinue since the depth of the wound is shallow at this point. Discussed with patient and with the team. Previous assessment that still applies today: Overall stable but with failure to thrive. Abdomen continues to remain benign. Trach and PEG being used. Drainage of perihepatic fluid collection ongoing. Of great importance is adequate nutrition and I recommended that we continue the feeds through the PEG with a goal of 60 cc/h with guidance from our dietitian colleagues. With above assessment, I recommended the following for today: 1. Continue current management 2. Transfer to telemetry when bed available 3. Please pursue an aggressive course towards weaning patient off the vent 4. Ostomy nurse to get back involved with the patient and assist with ostomy care and wound care; may discontinue wound VAC Thank you again for your great care of this very pleasant patient and wonderful family. If there are any questions, please feel free to call me at [phone]. Nature of presenting problem: High severity Please note that, given the extensive number of diagnoses or management options , the extensive amount and/or complexity of data needed to be reviewed, and I risk of complications and/or morbidity or mortality, this qualifies as high complexity type of decision-making. Disclaimer: Inadvertent spelling and grammatical errors are likely due to EHR/ dictation software use and do not reflect on the quality of delivered patient care. Also, please note that the electronic time recorded on this node does not necessarily reflect the actual time of the visit. 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 S/p IR drainage 09/09/16 with removal of 20 cc pus and placement of a 10 Fr. pigtail catheter at [facility]. D/c home 09/12/16. Re-presented to [place] ED 09/15/16 after being diverted from [facility] (due to internal disaster diversion) where CT was done showing adequate placement of the percutaneous drain near the sigmoid colon and decompressed sigmoid colon abscess, no obvious free air or significant spillage of stool in the abdominal cavity, and incidental finding of tail of the [employer]ES[employer] shunt in the pelvis (new from right upper quadrant position of the same drain on the CT scan at [facility]). Transfer to [facility] 09/15/2016 for further cares. S/p upsizing of drain to 12 Fr pigtail on 09/17/16 (communication with colon demonstrated; no obvious free communication to rest of peritoneal space). Patient decompensated in the early hours of the morning on 09/21/2016 and had to be transferred to the intensive care unit with need for endotracheal tube intubation, central line placement, and resuscitation for treatment of shock with lactic acidosis and evidence of peritonitis and free air on the new chest, abdomen, and pelvis CT scan. S/p a rather challenging sigmoid colectomy with performance of end colostomy (Reid's procedure), takedown of splenic flexure of the colon, lysis of adhesions (60 minutes), and abdominal lavage at [facility] on 09/21/16; diagnosis of colon ischemia (distal transverse colon and descending colon) during reentry through recent laparotomy incision with exploration of abdominal cavity, takedown of colostomy, completion left hemicolectomy with resection of distal transverse colon, lysis of adhesions, abdominal lavage, performance of an end colostomy [facility] 09/24/16. Extubated post op evening of 09/25/16. Decompensation with intubation and restart of pressors . Right-sided pneumothorax after drainage of right pleural effusion requiring chest tube placement 09/30/2016. Extubated 10/03/2016. Decompensation with reintubation 10/06/16. Tracheostomy and PEG placed. Perihepatic fluid collections drained 10/13/2016. Cryptococcal antigen found in the urine 2016. Antifungal therapy started. S/p new perc drain perihepatic 10/23/16. Comorbidities: 1. Perforated sigmoid colon (see below) 2. Status post ventriculoperitoneal shunt placement. 3. Status post prior hysterectomy and bilateral salpingo-oophorectomy through Pfannenstiel incision 4. S/p IR drainage 09/09/16 with removal of 20 cc pus and placement of a 10 Fr. pigtail catheter at [facility]. 5. Readmission to [facility] 09/15/16 with upsizing of drain to 12 Fr pigtail on (communication with colon demonstrated; no obvious free communication to rest of peritoneal space). Septic shock with multiorgan failure 09/21/2016 requiring ICU admission with intubation and pressors. 6. S/p a rather challenging sigmoid colectomy with performance of end colostomy (Reid's procedure), takedown of splenic flexure of the colon, lysis of adhesions (60 minutes), and abdominal lavage at [facility] on 09/21/16 7. Colon ischemia (distal transverse colon and descending colon) 8. S/p reentry through recent laparotomy incision with exploration of abdominal cavity, takedown of colostomy, completion left hemicolectomy with resection of distal transverse colon, lysis of adhesions, abdominal lavage, performance of an end colostomy [facility] 09/24/16 9. Stage I/II decubitus pressure ulcers (10/11/2016 [facility] ICU) Subjective: Remain on a ventilator with tracheostomy without major events. Less lethargic and more communicative. No major noted complaints regarding abdominal pain. With restraints. Objective: Vitals: See below I's & O's: See below Exam: GENERAL: On exam, the patient was lying in bed and appeared to be breathing comfortably on the vent. No obvious acute distress. Appears emaciated. ABDOMEN: Soft, nontender and nondistended. Incision dressings are clean, dry and intact without any obvious evidence of underlying erythema, edema, discharge , or hernia. Surgical drain ss without any evidence of enteric contents. There are no peritoneal signs or guarding. Ostomy appears to be viable and productive with stool and air in the bag. Some enteric content within the wound VAC but appears that the ostomy bag itself has been leaking. Skin around the ostomy is somewhat excoriated. Perihepatic drains showing pus and minimal ss output. No bile. SKIN: Skin appears to be pink and feels warm to touch. NEUROLOGIC: Patient is more awake today and a bit more interactive; follows simple commands. Remains on the ventilator with tracheostomy tube. Labs: See below Exam/Review of Systems Vital Signs Vitals Vital Signs Date Time Temp Pulse Resp B/P Pulse Ox O2 Delivery O2 Flow Rate FiO2 10/29/16 18:00 101 26 122/70 100 Mechanical Ventilator 10/29/16 17:47 30 10/29/16 16:00 97.7 Intake and Output 10/28/16 10/28/16 10/29/16 15:00 23:00 07:00 Intake Total 1380 ml 680 ml 700 ml Output Total 555 ml 620 ml 790 ml Balance 825 ml 60 ml -90 ml Results Result Diagram: 10/29/16 0613 10/28/16 0400 ALEXSANDER DUARTE M.D. Oct 29, 2016 19:49
[2016-10-30] VITALS (36 sets, daily range): BP systolic 106–141; BP diastolic 58–84; PULSE 90–110; RESP 10–27
[2016-10-30] MEDS: ALBUTEROL 18 GM INHALER INH SCH ×6 (01:26→21:33)
[2016-10-30] MEDS: IPRATROPIUM (HFA) 12.9 GM INHALER INH SCH ×6 (01:26→21:33)
[2016-10-30] MEDS: HYDROmorphONE 1 MG/ML SYG IV PRN (01:54)
[2016-10-30] MEDS: FUROSEMIDE 20 MG INJ IV SCH (06:25)
[2016-10-30] MEDS: LANSOPRAZOLE 30 MG CAP NGT SCH ×2 (06:25→18:15)
[2016-10-30 06:56] LABS: BASOPHILS % 0.4 % (0.0-2.0); EOSINOPHILS # 0.4 10^3/ul (0.0-0.5); EOSINOPHILS % 4.2 % (0.0-7.0); HEMATOCRIT 23.2 % (37.0-47.0); HEMOGLOBIN 7.6 g/dl (12.0-16.0); LYMPHOCYTES # 1.2 10^3/ul (0.8-2.9); MEAN CORPUSCULAR HGB CONC 32.8 g/dl (32.0-37.0); MEAN CORPUSCULAR VOLUME 88.5 fl (82.0-101.0); MEAN PLATELET VOLUME 11.3 fl (7.4-10.4); MONOCYTE # 0.6 10^3/ul (0.3-0.9); MONOCYTES % 6.4 % (0.0-11.0); NEUTROPHILS % 75.5 % (39.0-77.0); PLATELET COUNT 290 10^3/UL (140-415); RED BLOOD COUNT 2.62 10^6/ul (4.20-5.40); RED CELL DISTRIBUTION WIDTH 17.8 % (11.5-14.5); WHITE BLOOD COUNT 9.6 10^3/ul (4.8-10.8)
[2016-10-30 07:03] LABS: CALCIUM 7.1 mg/dl (8.4-10.2); CREATININE 0.45 mg/dl (0.44-1.00); POTASSIUM 3.1 mmol/L (3.5-5.1)
[2016-10-30 07:04] LABS: POSITIVE DIFF @See below
--- NOTE | 2016-10-30 07:47 | PN ---
Date/Time of Note Date/Time of Note DATE: 10/30/16 TIME: 07:47 Assessment/Plan Lines/Catheters IV Catheter Type (from Nrsg): PICC Line Shore in Place (from Nrsg): Yes Assessment/Plan Chief Complaint/Hosp Course This is a 70-year-old female admitted with a perforated colon and contained abscess underwent a drainage procedure on further colonic procedures patient is currently in the intensive care unit unable to come off the ventilator secondary to multiple medical problems Patient was extubated and had to be input intubated again has been treated for septic shock lactic acidosis peritonitis currently has an end colostomy Helio pouch and has undergone colon resection patient also has a right-sided chest tube for a pneumothorax She was reintubated again Status post tracheostomy We will continue pulmonary toilet Trach care Vent support Pulmonary toilet Patient DNR supp care Problems: Subjective 24 Hr Interval Summary Constitutional: improved Pain Control: mild Exam/Review of Systems Vital Signs Vitals Vital Signs Date Time Temp Pulse Resp B/P Pulse Ox O2 Delivery O2 Flow Rate FiO2 10/30/16 07:00 96 19 110/65 99 Mechanical Ventilator 10/30/16 05:27 30 10/30/16 04:00 97.8 Intake and Output 10/29/16 10/29/16 10/30/16 15:00 23:00 07:00 Intake Total 630 ml 1580 ml 800 ml Output Total 1080 ml 550 ml 975 ml Balance -450 ml 1030 ml -175 ml Exam ENMT: mucosa pink and moist, nl external ears & nose, nl lips & teeth, nl nasal mucosa & septum Neck: non-tender, supple Respiratory: clear to auscultation, normal air movement Results Result Diagram: 10/30/16 0610/30/16 06 GIL PINEDA MD Oct 30, 2016 07:47
[2016-10-30] MEDS: MIDODRINE 5 MG TAB PO SCH ×2 (09:00→18:14)
[2016-10-30] MEDS: DOCUSATE SODIUM 10 MG/ML (10ML CUP) NGT SCH ×2 (09:00→20:28)
[2016-10-30] MEDS: BALSAM PERU/CASTOR OIL 60 GM TUBE TOP SCH (09:00)
[2016-10-30] MEDS: LORATADINE 10 MG TAB PO SCH (09:00)
[2016-10-30] MEDS: NYSTATIN SUSP 5 ML CUP PO SCH ×4 (09:00→20:28)
[2016-10-30] MEDS: POLYETHYLENE GLYCOL 17 GM PACKET PO SCH (09:00)
[2016-10-30] MEDS: SPIRONOLACTONE 50 MG TAB NGT SCH (09:00)
--- NOTE | 2016-10-30 09:13 | CONS ---
Date/Time of Note Date/Time of Note DATE: 10/30/16 TIME: 09:11 Assessment/Plan Assessment/Plan Additional Assessment/Plan Ventilator settings; SIMV of 8, tidal volume 500, PEEP of 5, pressure support 10 , 30% FiO2. Assessment and recommendations; 1. Patient admitted with severe sepsis with a history of recent bowel resection with colostomy. 2. Severe generalized deconditioning status post tracheostomy and G-tube placement. 3. Disseminated cryptococcal infection. 4. Anemia. Continue current supportive care. Patient will transfer to rehab facility for further recuperation. Prognosis is guarded. Consultation Date/Type/Reason Admit Date/Time Sep 15, 2016 at 21:35 Initial Consult Date 09/21/16 Type of Consultation: Pulmonary/critical care 24 HR Interval Summary Free Text/Dictation Patient condition remains tenuous at best. Patient however is hemodynamically stable now not requiring any further pressor support. Mental status also significantly improved to the point where the patient is now interactive. General exam; elderly female, on ventilator via tracheostomy, awake, currently in no distress. Exam/Review of Systems Vital Signs Vitals Vital Signs Date Time Temp Pulse Resp B/P Pulse Ox O2 Delivery O2 Flow Rate FiO2 10/30/16 08:00 102 10/30/16 07:55 21 100 30 10/30/16 07:00 110/65 Mechanical Ventilator 10/30/16 04:00 97.8 Intake and Output 10/29/16 10/29/16 10/30/16 14:59 22:59 06:59 Intake Total 570 ml 1580 ml 860 ml Output Total 950 ml 600 ml 1055 ml Balance -380 ml 980 ml -195 ml Exam HEENT exam; supple neck, tracheostomy in place. No lymphadenopathy. No JVD. Patient has fair dentition. No neck masses. No thyromegaly. Pupils are small bilaterally. Chest exam; diminished but clear breath sound. S1-S2 audible, no murmurs. Regular rhythm. Abdomen exam; soft, G-tube in place. Colostomy in place. Bowel sounds audible. Extremity exam; no peripheral edema. SCHEME TECHNICIAN exam; patient awake and follows simple commands but exhibiting profound generalized muscular weakness. Results Result Diagram: 10/30/16 0600 10/30/16 0600 Results 24 hrs Laboratory Tests Test 10/29/16 11:52 10/30/16 05:05 10/30/16 06:00 Lab Scanned Report REFERENCE LAB BLOOD TRANSFUSION White Blood Count 9.6 Red Blood Count 2.62 L Hemoglobin 7.6 L Hematocrit 23.2 L Mean Corpuscular Volume 88.5 Mean Corpuscular Hemoglobin 29.0 Mean Corpuscular Hemoglobin Concent 32.8 Red Cell Distribution Width 17.8 H Platelet Count 290 Mean Platelet Volume 11.3 H Neutrophils % 75.5 Lymphocytes % 12.0 L Monocytes % 6.4 Eosinophils % 4.2 Basophils % 0.4 Nucleated Red Blood Cells % 0.0 Neutrophils # (Manual) 7 Lymphocytes # 1.2 Monocytes # 0.6 Eosinophils # 0.4 Basophils # 0.0 Nucleated Red Blood Cells # 0.0 Sodium Level 136 Potassium Level 3.1 L Chloride Level 103 Carbon Dioxide Level 30 Anion Gap 6 L Blood Urea Nitrogen 27 H Creatinine 0.45 Glucose Level 103 Calcium Level 7.1 L Magnesium Level 1.7 Medications Medications Current Medications Ondansetron HCl (Zofran Inj) 4 mg Q6H PRN IV NAUSEA AND/OR VOMITING Last administered on 09/26/16 09:23; Admin Dose 4 MG; Start 09/16/16 at 00:30 Acetaminophen (Tylenol Tab) 650 mg Q6H PRN PO PAIN LEVEL 1-3 OR FEVER Last administered on 10/08/16 12:47; Admin Dose 650 MG; Start 09/16/16 at 00:30 Polyethylene Glycol (Miralax) 17 gm DAILY PO Last administered on 10/29/16 08: 17; Admin Dose 17 GM; Start 09/20/16 at 11:00 Acetaminophen/ Hydrocodone Bitart ([place] (5/325)) 1 tab Q4H PRN PO PAIN LEVEL 4 -7 Last administered on 09/28/16 21:20; Admin Dose 1 TAB; Start 09/21/16 at 15: 00 Acetaminophen/ Hydrocodone Bitart ([place] (5/325)) 2 tab Q4H PRN PO PAIN LEVEL 7 -10 Last administered on 10/21/16 08:49; Admin Dose 2 TAB; Start 09/21/16 at 15 :00 Hydromorphone HCl (Dilaudid) 0.5 mg Q2H PRN IV PAIN Last administered on 09:25; Admin Dose 0.5 MG; Start 09/21/16 at 15:00 Hydromorphone HCl (Dilaudid) 1 mg Q2H PRN IV PAIN Last administered on 01:54; Admin Dose 1 MG; Start 09/21/16 at 15:00 Docusate Sodium (Colace) 100 mg BID PRN PO CONSTIPATION; Start 09/21/16 at 15: 00 Docusate Sodium (Colace Liquid Cup) 100 mg BID NGT Last administered on 20:41; Admin Dose 100 MG; Start 09/22/16 at 21:00 IV Flush (NS 10 ml) 10 ml PRN PRN IV IV PROTOCOL; Start 09/25/16 at 12:00 Spironolactone (Aldactone) 50 mg DAILY NGT Last administered on 10/29/16 08:17 ; Admin Dose 50 MG; Start 09/28/16 at 09:00 Lorazepam (Ativan) 0.5 mg Q6H PRN IV AGITATION/ANXIETY Last administered on 08:00; Admin Dose 0.5 MG; Start 10/05/16 at 23:00 Nystatin (Nystatin Susp) 5 ml QID PO Last administered on 10/29/16 20:41; Admin Dose 5 ML; Start 10/19/16 at 13:00 Diphenhydramine HCl (Benadryl) 25 mg Q6H PRN IV PRURITUS Last administered on 10:49; Admin Dose 25 MG; Start 10/23/16 at 10:30 Loratadine (Claritin) 10 mg DAILY PO Last administered on 10/29/16 08:17; Admin Dose 10 MG; Start 10/23/16 at 15:00 Lansoprazole (Prevacid) 30 mg BID@06,18 NGT Last administered on 10/30/16 06: 25; Admin Dose 30 MG; Start 10/23/16 at 18:00 Midodrine 5 mg 5 mg BID@17 PO Last administered on 10/29/16 18:23; Admin Dose 5 MG; Start 10/26/16 at 17:00 Aztreonam 50 ml @ 100 mls/hr Q12H IVPB Last administered on 10/29/16 23:19; Admin Dose 100 MLS/HR; Start 10/27/16 at 22:00 Doxycycline Hyclate 100 mg/ Sodium Chloride 250 ml @ 250 mls/hr Q12H IVPB Last administered on 10/29/16t 23:19; Admin Dose 250 MLS/HR; Start 10/27/16 at 23:00 Fluconazole/N/A (Diflucan 400 Mg/ NS (Pmx)/Evac Container) 600 ml @ 100 mls/hr Q24H IVPB ; Start 10/30/16 at 09:00 GERARDO JUSTICE Oct 30, 2016 09:13
--- NOTE | 2016-10-30 09:55 | CONS ---
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 Her ex- is at the bedside daily. Goals of care have been discussed with him and continue to proceed with aggressive care. At sometime in the near future she may be transferred to [place] [facility] Consultation Date/Type/Reason Admit Date/Time Sep 15, 2016 at 21:35 Initial Consult Date 09/21/16 Type of Consultation: Palliative care Exam/Review of Systems Vital Signs Vitals Vital Signs Date Time Temp Pulse Resp B/P Pulse Ox O2 Delivery O2 Flow Rate FiO2 10/30/16 09:00 97 22 121/67 100 Mechanical Ventilator 10/30/16 08:00 98.3 10/30/16 07:55 30 Intake and Output 10/29/16 10/29/16 10/30/16 15:00 23:00 07:00 Intake Total 630 ml 1580 ml 860 ml Output Total 1080 ml 550 ml 975 ml Balance -450 ml 1030 ml -115 ml Results Result Diagram: 10/30/16 0600 10/30/16 0600 Results 24 hrs Laboratory Tests Test 10/29/16 11:52 10/30/16 05:05 10/30/16 06:00 Lab Scanned Report REFERENCE LAB BLOOD TRANSFUSION White Blood Count 9.6 Red Blood Count 2.62 L Hemoglobin 7.6 L Hematocrit 23.2 L Mean Corpuscular Volume 88.5 Mean Corpuscular Hemoglobin 29.0 Mean Corpuscular Hemoglobin Concent 32.8 Red Cell Distribution Width 17.8 H Platelet Count 290 Mean Platelet Volume 11.3 H Neutrophils % 75.5 Lymphocytes % 12.0 L Monocytes % 6.4 Eosinophils % 4.2 Basophils % 0.4 Nucleated Red Blood Cells % 0.0 Neutrophils # (Manual) 7 Lymphocytes # 1.2 Monocytes # 0.6 Eosinophils # 0.4 Basophils # 0.0 Nucleated Red Blood Cells # 0.0 Sodium Level 136 Potassium Level 3.1 L Chloride Level 103 Carbon Dioxide Level 30 Anion Gap 6 L Blood Urea Nitrogen 27 H Creatinine 0.45 Glucose Level 103 Calcium Level 7.1 L Magnesium Level 1.7 Medications Medications Current Medications Ondansetron HCl (Zofran Inj) 4 mg Q6H PRN IV NAUSEA AND/OR VOMITING Last administered on 09/26/16 09:23; Admin Dose 4 MG; Start 09/16/16 at 00:30 Acetaminophen (Tylenol Tab) 650 mg Q6H PRN PO PAIN LEVEL 1-3 OR FEVER Last administered on 10/08/16 12:47; Admin Dose 650 MG; Start 09/16/16 at 00:30 Polyethylene Glycol (Miralax) 17 gm DAILY PO Last administered on 10/29/16 08: 17; Admin Dose 17 GM; Start 09/20/16 at 11:00 Acetaminophen/ Hydrocodone Bitart ([place] (5/325)) 1 tab Q4H PRN PO PAIN LEVEL 4 -7 Last administered on 09/28/16 21:20; Admin Dose 1 TAB; Start 09/21/16 at 15: 00 Acetaminophen/ Hydrocodone Bitart ([place] (5/325)) 2 tab Q4H PRN PO PAIN LEVEL 7 -10 Last administered on 10/21/16 08:49; Admin Dose 2 TAB; Start 09/21/16 at 15 :00 Hydromorphone HCl (Dilaudid) 0.5 mg Q2H PRN IV PAIN Last administered on 09:25; Admin Dose 0.5 MG; Start 09/21/16 at 15:00 Hydromorphone HCl (Dilaudid) 1 mg Q2H PRN IV PAIN Last administered on 01:54; Admin Dose 1 MG; Start 09/21/16 at 15:00 Docusate Sodium (Colace) 100 mg BID PRN PO CONSTIPATION; Start 09/21/16 at 15: 00 Docusate Sodium (Colace Liquid Cup) 100 mg BID NGT Last administered on 20:41; Admin Dose 100 MG; Start 09/22/16 at 21:00 IV Flush (NS 10 ml) 10 ml PRN PRN IV IV PROTOCOL; Start 09/25/16 at 12:00 Spironolactone (Aldactone) 50 mg DAILY NGT Last administered on 10/29/16 08:17 ; Admin Dose 50 MG; Start 09/28/16 at 09:00 Lorazepam (Ativan) 0.5 mg Q6H PRN IV AGITATION/ANXIETY Last administered on 08:00; Admin Dose 0.5 MG; Start 10/05/16 at 23:00 Nystatin (Nystatin Susp) 5 ml QID PO Last administered on 10/29/16 20:41; Admin Dose 5 ML; Start 10/19/16 at 13:00 Diphenhydramine HCl (Benadryl) 25 mg Q6H PRN IV PRURITUS Last administered on 10:49; Admin Dose 25 MG; Start 10/23/16 at 10:30 Loratadine (Claritin) 10 mg DAILY PO Last administered on 10/29/16 08:17; Admin Dose 10 MG; Start 10/23/16 at 15:00 Lansoprazole (Prevacid) 30 mg BID@06,18 NGT Last administered on 10/30/16 06: 25; Admin Dose 30 MG; Start 10/23/16 at 18:00 Midodrine 5 mg 5 mg BID@09,17 PO Last administered on 10/29/16 18:23; Admin Dose 5 MG; Start 10/26/16 at 17:00 Aztreonam 50 ml @ 100 mls/hr Q12H IVPB Last administered on 10/29/16 23:19; Admin Dose 100 MLS/HR; Start 10/27/16 at 22:00 Doxycycline Hyclate 100 mg/ Sodium Chloride 250 ml @ 250 mls/hr Q12H IVPB Last administered on 10/29/16 23:19; Admin Dose 250 MLS/HR; Start 10/27/16 at 23:00 Fluconazole/N/A (Diflucan 400 Mg/ NS (Pmx)/Evac Container) 600 ml @ 100 mls/hr Q24H IVPB ; Start 10/30/16 at 09:00 YANETH VIDAL Oct 30, 2016 09:54
--- NOTE | 2016-10-30 09:56 | CONS ---
Date/Time of Note Date/Time of Note DATE: 10/30/16 TIME: 09:54 Assessment/Plan Assessment/Plan Chief Complaint/Hosp Course Acute respiratory failure: now s/p tracheostomy Acute diastolic heart failure: Secondary to volume resuscitation in setting of low albumin and third spacing. Significant anasarca initially but now much better. Mild edema Paroxysmal afib: converted on amiodarone. Remains in sinus Septic shock: from intraabdominal abscess and possible infected TOP LIFT COMPRESSOR shunt. S/p sigmoid colectomy. Intermittent pressor requirement. Tension pneumothorax: due to thoracentesis. s/p chest tube 09/30 NSTEMI: Trop mildly elevated likely type II in the setting of septic shock. Echo from 09/18 showed normal EF and no significant valvular disease. Repeat trop normalized Diverticulitis complicated by abscess s/p sigmoid colectomy and now colostomy Coagulopathy: ?DIC. Resolved h/o ICH with TOP LIFT COMPRESSOR shunt -switch IV lasix to bumex 1mg PO daily to keep even -will follow as needed. Problems: Consultation Date/Type/Reason Admit Date/Time Sep 15, 2016 at 21:35 Initial Consult Date 09/21/16 Type of Consultation: Cardiology 24 HR Interval Summary Free Text/Dictation No o/n events. Plan for transfer to tele. Exam/Review of Systems Vital Signs Vitals Vital Signs Date Time Temp Pulse Resp B/P Pulse Ox O2 Delivery O2 Flow Rate FiO2 10/30/16 09:00 97 22 121/67 100 Mechanical Ventilator 10/30/16 08:00 98.3 10/30/16 07:55 30 Intake and Output 10/29/16 10/29/16 10/30/16 15:00 23:00 07:00 Intake Total 630 ml 1580 ml 860 ml Output Total 1080 ml 550 ml 975 ml Balance -450 ml 1030 ml -115 ml Exam Constitutional: alert Head: atraumatic, normocephalic ENMT: other (tracheostomy ) Neck: No jvd Respiratory: diminished breath sounds, No clear to auscultation Cardiovascular: edema (1+), regular rate and rhythm Gastrointestinal: non-tender, soft Neurological: nl mental status, No nl speech Results Result Diagram: 10/30/16 0600 10/30/16 0600 Results 24 hrs Laboratory Tests Test 10/29/16 11:52 10/30/16 05:05 10/30/16 06:00 Lab Scanned Report REFERENCE LAB BLOOD TRANSFUSION White Blood Count 9.6 Red Blood Count 2.62 L Hemoglobin 7.6 L Hematocrit 23.2 L Mean Corpuscular Volume 88.5 Mean Corpuscular Hemoglobin 29.0 Mean Corpuscular Hemoglobin Concent 32.8 Red Cell Distribution Width 17.8 H Platelet Count 290 Mean Platelet Volume 11.3 H Neutrophils % 75.5 Lymphocytes % 12.0 L Monocytes % 6.4 Eosinophils % 4.2 Basophils % 0.4 Nucleated Red Blood Cells % 0.0 Neutrophils # (Manual) 7 Lymphocytes # 1.2 Monocytes # 0.6 Eosinophils # 0.4 Basophils # 0.0 Nucleated Red Blood Cells # 0.0 Sodium Level 136 Potassium Level 3.1 L Chloride Level 103 Carbon Dioxide Level 30 Anion Gap 6 L Blood Urea Nitrogen 27 H Creatinine 0.45 Glucose Level 103 Calcium Level 7.1 L Magnesium Level 1.7 Medications Medications Current Medications Ondansetron HCl (Zofran Inj) 4 mg Q6H PRN IV NAUSEA AND/OR VOMITING Last administered on 09/26/16 09:23; Admin Dose 4 MG; Start 09/16/16 at 00:30 Acetaminophen (Tylenol Tab) 650 mg Q6H PRN PO PAIN LEVEL 1-3 OR FEVER Last administered on 10/08/16 12:47; Admin Dose 650 MG; Start 09/16/16 at 00:30 Polyethylene Glycol (Miralax) 17 gm DAILY PO Last administered on 10/29/16 08: 17; Admin Dose 17 GM; Start 09/20/16 at 11:00 Acetaminophen/ Hydrocodone Bitart ([place] (5/325)) 1 tab Q4H PRN PO PAIN LEVEL 4 -7 Last administered on 09/28/16 21:20; Admin Dose 1 TAB; Start 09/21/16 at 15: 00 Acetaminophen/ Hydrocodone Bitart ([place] (5/325)) 2 tab Q4H PRN PO PAIN LEVEL 7 -10 Last administered on 10/21/16 08:49; Admin Dose 2 TAB; Start 09/21/16 at 15 :00 Hydromorphone HCl (Dilaudid) 0.5 mg Q2H PRN IV PAIN Last administered on 09:25; Admin Dose 0.5 MG; Start 09/21/16 at 15:00 Hydromorphone HCl (Dilaudid) 1 mg Q2H PRN IV PAIN Last administered on 01:54; Admin Dose 1 MG; Start 09/21/16 at 15:00 Docusate Sodium (Colace) 100 mg BID PRN PO CONSTIPATION; Start 09/21/16 at 15: 00 Docusate Sodium (Colace Liquid Cup) 100 mg BID NGT Last administered on 20:41; Admin Dose 100 MG; Start 09/22/16 at 21:00 IV Flush (NS 10 ml) 10 ml PRN PRN IV IV PROTOCOL; Start 09/25/16 at 12:00 Spironolactone (Aldactone) 50 mg DAILY NGT Last administered on 10/29/16 08:17 ; Admin Dose 50 MG; Start 09/28/16 at 09:00 Lorazepam (Ativan) 0.5 mg Q6H PRN IV AGITATION/ANXIETY Last administered on 08:00; Admin Dose 0.5 MG; Start 10/05/16 at 23:00 Nystatin (Nystatin Susp) 5 ml QID PO Last administered on 10/29/16 20:41; Admin Dose 5 ML; Start 10/19/16 at 13:00 Diphenhydramine HCl (Benadryl) 25 mg Q6H PRN IV PRURITUS Last administered on 10:49; Admin Dose 25 MG; Start 10/23/16 at 10:30 Loratadine (Claritin) 10 mg DAILY PO Last administered on 10/29/16 08:17; Admin Dose 10 MG; Start 10/23/16 at 15:00 Lansoprazole (Prevacid) 30 mg BID@,18 NGT Last administered on 10/30/16 06: 25; Admin Dose 30 MG; Start 10/23/16 at 18:00 Midodrine 5 mg 5 mg BID@,17 PO Last administered on 10/29/16 18:23; Admin Dose 5 MG; Start 10/26/16 at 17:00 Aztreonam 50 ml @ 100 mls/hr Q12H IVPB Last administered on 10/29/16 23:19; Admin Dose 100 MLS/HR; Start 10/27/16 at 22:00 Doxycycline Hyclate 100 mg/ Sodium Chloride 250 ml @ 250 mls/hr Q12H IVPB Last administered on 10/29/16t 23:19; Admin Dose 250 MLS/HR; Start 10/27/16 at 23:00 Fluconazole/N/A (Diflucan 400 Mg/ NS (Pmx)/Evac Container) 600 ml @ 100 mls/hr Q24H IVPB ; Start 10/30/16 at 09:00 GUSTAVO RAMON Oct 30, 2016 09:56
--- NOTE | 2016-10-30 09:59 | CONS ---
Date/Time of Note Date/Time of Note DATE: 10/30/16 TIME: 09:56 Assessment/Plan Assessment/Plan Additional Assessment/Plan Long discussion with patient's ex- today he remains hopeful that she will have a significant recovery. Dr. Maldonado has been in contact with him on a daily. He remains the only decision maker but he keeps family members [place] Hopes desires acceptable quality of life fears concerns strength have been covered with ex- once again. Prognosis remains questionable but with aggressive intervention she may improve pain and physical symptoms have been controlled ethical issues have been addressed with family members prior. 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 Consultation Date/Type/Reason Admit Date/Time Sep 15, 2016 at 21:35 Initial Consult Date 09/21/16 Type of Consultation: Palliative care Exam/Review of Systems Vital Signs Vitals Vital Signs Date Time Temp Pulse Resp B/P Pulse Ox O2 Delivery O2 Flow Rate FiO2 10/30/16 09:00 97 22 121/67 100 Mechanical Ventilator 10/30/16 08:00 98.3 10/30/16 07:55 30 Intake and Output 10/29/16 10/29/16 10/30/16 15:00 23:00 07:00 Intake Total 630 ml 1580 ml 860 ml Output Total 1080 ml 550 ml 975 ml Balance -450 ml 1030 ml -115 ml Results Result Diagram: 10/30/16 0600 10/30/16 0600 Results 24 hrs Laboratory Tests Test 10/29/16 11:52 10/30/16 05:05 10/30/16 06:00 Lab Scanned Report REFERENCE LAB BLOOD TRANSFUSION White Blood Count 9.6 Red Blood Count 2.62 L Hemoglobin 7.6 L Hematocrit 23.2 L Mean Corpuscular Volume 88.5 Mean Corpuscular Hemoglobin 29.0 Mean Corpuscular Hemoglobin Concent 32.8 Red Cell Distribution Width 17.8 H Platelet Count 290 Mean Platelet Volume 11.3 H Neutrophils % 75.5 Lymphocytes % 12.0 L Monocytes % 6.4 Eosinophils % 4.2 Basophils % 0.4 Nucleated Red Blood Cells % 0.0 Neutrophils # (Manual) 7 Lymphocytes # 1.2 Monocytes # 0.6 Eosinophils # 0.4 Basophils # 0.0 Nucleated Red Blood Cells # 0.0 Sodium Level 136 Potassium Level 3.1 L Chloride Level 103 Carbon Dioxide Level 30 Anion Gap 6 L Blood Urea Nitrogen 27 H Creatinine 0.45 Glucose Level 103 Calcium Level 7.1 L Magnesium Level 1.7 Medications Medications Current Medications Ondansetron HCl (Zofran Inj) 4 mg Q6H PRN IV NAUSEA AND/OR VOMITING Last administered on 09/26/16 09:23; Admin Dose 4 MG; Start 09/16/16 at 00:30 Acetaminophen (Tylenol Tab) 650 mg Q6H PRN PO PAIN LEVEL 1-3 OR FEVER Last administered on 10/08/16 12:47; Admin Dose 650 MG; Start 09/16/16 at 00:30 Polyethylene Glycol (Miralax) 17 gm DAILY PO Last administered on 10/29/16 08: 17; Admin Dose 17 GM; Start 09/20/16 at 11:00 Acetaminophen/ Hydrocodone Bitart ([place] (5/325)) 1 tab Q4H PRN PO PAIN LEVEL 4 -7 Last administered on 09/28/16 21:20; Admin Dose 1 TAB; Start 09/21/16 at 15: 00 Acetaminophen/ Hydrocodone Bitart ([place] (5/325)) 2 tab Q4H PRN PO PAIN LEVEL 7 -10 Last administered on 10/21/16 08:49; Admin Dose 2 TAB; Start 09/21/16 at 15 :00 Hydromorphone HCl (Dilaudid) 0.5 mg Q2H PRN IV PAIN Last administered on 09:25; Admin Dose 0.5 MG; Start 09/21/16 at 15:00 Hydromorphone HCl (Dilaudid) 1 mg Q2H PRN IV PAIN Last administered on 01:54; Admin Dose 1 MG; Start 09/21/16 at 15:00 Docusate Sodium (Colace) 100 mg BID PRN PO CONSTIPATION; Start 09/21/16 at 15: 00 Docusate Sodium (Colace Liquid Cup) 100 mg BID NGT Last administered on 20:41; Admin Dose 100 MG; Start 09/22/16 at 21:00 IV Flush (NS 10 ml) 10 ml PRN PRN IV IV PROTOCOL; Start 09/25/16 at 12:00 Spironolactone (Aldactone) 50 mg DAILY NGT Last administered on 10/29/16 08:17 ; Admin Dose 50 MG; Start 09/28/16 at 09:00 Lorazepam (Ativan) 0.5 mg Q6H PRN IV AGITATION/ANXIETY Last administered on 08:00; Admin Dose 0.5 MG; Start 10/05/16 at 23:00 Nystatin (Nystatin Susp) 5 ml QID PO Last administered on 10/29/16 20:41; Admin Dose 5 ML; Start 10/19/16 at 13:00 Diphenhydramine HCl (Benadryl) 25 mg Q6H PRN IV PRURITUS Last administered on 10:49; Admin Dose 25 MG; Start 10/23/16 at 10:30 Loratadine (Claritin) 10 mg DAILY PO Last administered on 10/29/16 08:17; Admin Dose 10 MG; Start 10/23/16 at 15:00 Lansoprazole (Prevacid) 30 mg BID@06,18 NGT Last administered on 10/30/16 06: 25; Admin Dose 30 MG; Start 10/23/16 at 18:00 Midodrine 5 mg 5 mg BID@,17 PO Last administered on 10/29/16 18:23; Admin Dose 5 MG; Start 10/26/16 at 17:00 Aztreonam 50 ml @ 100 mls/hr Q12H IVPB Last administered on 10/29/16 23:19; Admin Dose 100 MLS/HR; Start 10/27/16 at 22:00 Doxycycline Hyclate 100 mg/ Sodium Chloride 250 ml @ 250 mls/hr Q12H IVPB Last administered on 10/29/16 23:19; Admin Dose 250 MLS/HR; Start 10/27/16 at 23:00 Fluconazole/N/A (Diflucan 400 Mg/ NS (Pmx)/Evac Container) 600 ml @ 100 mls/hr Q24H IVPB ; Start 10/30/16 at 09:00 YANETH VIDAL Oct 30, 2016 09:59
[2016-10-30] MEDS: SODIUM CHLORIDE IVPB SCH ×2 (12:32)
[2016-10-30] MEDS: AZTREONAM 1 GM/NS (PMX) 50 ML IVPB SCH (12:32)
[2016-10-30] MEDS: FLUCONAZOLE IVPB SCH ×2 (12:32)
[2016-10-30] MEDS: DOXYCYCLINE 100 MG in SOD CHLORIDE 0.9% 250 ML IVPB SCH (13:25)
--- NOTE | 2016-10-30 13:44 | PN ---
DATE: 10/30/2016 SUBJECTIVE DATA: The patient remains critical, but stable. No events noted overnight. No hemoptysis hematemesis, hematochezia. OBJECTIVE DATA: VITAL SIGNS: Blood pressure 121/67, respirations 22, pulse 97, temperature 98.3. INTAKE AND OUTPUT: Have been reviewed. Patient had 3 L in, 2.6 L out. HEENT: Head is normocephalic. NECK: Supple. HEART: Regular rate. LUNGS: Show diminished breath sounds at the base. ABDOMEN: Soft, nontender to palpation. No rebound or guarding. EXTREMITIES: Negative for clubbing, cyanosis. Positive edema. DERMATOLOGIC: Clean. No rashes. MUSCULOSKELETAL: No joint effusion. NEUROLOGIC: Unchanged exam. MEDICATIONS: Reviewed. LABORATORY AND DIAGNOSTIC DATA: Shows white count 9.6, hemoglobin 7.6, hematocrit of , platelet count is 290. Sodium 136, potassium 3.1, BUN 27, creatinine 0.45. Imaging studies were reviewed. ASSESSMENT AND PLAN: 1. Nonoliguric acute kidney injury. Etiology secondary to acute tubular necrosis. Renal function has been stable. Continue current treatment plan. 2. Hypokalemia. Continue potassium protocol. 3. Volume overload anasarca. Continue diuretic therapy. 4. Sepsis status post shock. The patient is completing antibiotic course. Continue to monitor. 5. Anemia. Monitor hemoglobin and hematocrit levels. Continue blood transfusion if needed. 6. Mineral bone disorder. Monitor calcium and phosphorus levels. 7. Ventilator-dependent respiratory failure. The patient's vent settings have been reviewed, ABGs reviewed. Continue to monitor. 8. Perforated viscus. Status post colectomy with colostomy bag. 9. Dysphagia. Continue tube feeding. 10. Paroxysmal atrial fibrillation. Currently in sinus rhythm. 11. Status post ventriculoperitoneal shunt. Dictated By: Agustin Sanchez DO /rhina/mega /Document#: [id number]
--- NOTE | 2016-10-30 15:03 | PN ---
Date/Time of Note Date/Time of Note DATE: 10/30/16 TIME: 15:01 Assessment/Plan VTE Prophylaxis VTE Prophylaxis Intervention: SCD's Lines/Catheters IV Catheter Type (from Nrsg): PICC Line Central line still needed: Yes Urinary Cath still in place: Yes Reason Cath still needed: other (indicate) (unable to move on her own) Assessment/Plan Assessment/Plan 70 yo F with h/o hydrocephalus with previous VPS admitted for sigmoid abscess. hospital stay cb sepsis, colon perforation with multiple abd fluid collections , also recurrent respiratory failure warranting trach, pleural effusion with thora c/b by PTX (chest tube removed) 1. Sigmoid colon abscess 2/2 diverticulitis - s/p sigmoid colectomy with end colostomy (Reid's procedure) and adhesiolysis on 09/21/16 - cont abx and gen surg care 2. Ventilator dependent respiratory failure: sp trach 4. Paroxysmal A. fib: Now in sinus rhythm status post amiodarone. Cardiology on board 5. Acute renal insufficiency: Resolved. 6. Anemia: unclear etio of acute on chronic. 7. Dysphagia Status post PEG tube placement 8. RUE DVT: hold lovenox given anemia 9. hypotension: started on midodrine 10. 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 general surgery requesting trial of time on tele floor before xfer to LTAC Exam/Review of Systems Vital Signs Vitals Vital Signs Date Time Temp Pulse Resp B/P Pulse Ox O2 Delivery O2 Flow Rate FiO2 10/30/16 13:41 104 23 100 30 10/30/16 13:00 141/78 Mechanical Ventilator 10/30/16 12:00 98.7 Intake and Output 10/29/16 10/29/16 10/30/16 15:00 23:00 07:00 Intake Total 630 ml 1580 ml 1060 ml Output Total 1080 ml 550 ml 975 ml Balance -450 ml 1030 ml 85 ml Exam nad, trach site c/d/i tracks to voice no mrg lungs clear no rashes Results Result Diagram: 10/30/16 0600 10/30/16 0600 Results 24 hrs Laboratory Tests Test 10/30/16 05:05 10/30/16 06:00 Lab Scanned Report BLOOD TRANSFUSION White Blood Count 9.6 Red Blood Count 2.62 L Hemoglobin 7.6 L Hematocrit 23.2 L Mean Corpuscular Volume 88.5 Mean Corpuscular Hemoglobin 29.0 Mean Corpuscular Hemoglobin Concent 32.8 Red Cell Distribution Width 17.8 H Platelet Count 290 Mean Platelet Volume 11.3 H Neutrophils % 75.5 Lymphocytes % 12.0 L Monocytes % 6.4 Eosinophils % 4.2 Basophils % 0.4 Nucleated Red Blood Cells % 0.0 Neutrophils # (Manual) 7 Lymphocytes # 1.2 Monocytes # 0.6 Eosinophils # 0.4 Basophils # 0.0 Nucleated Red Blood Cells # 0.0 Sodium Level 136 Potassium Level 3.1 L Chloride Level 103 Carbon Dioxide Level 30 Anion Gap 6 L Blood Urea Nitrogen 27 H Creatinine 0.45 Glucose Level 103 Calcium Level 7.1 L Magnesium Level 1.7 Medications Medications Current Medications Ondansetron HCl (Zofran Inj) 4 mg Q6H PRN IV NAUSEA AND/OR VOMITING Last administered on 09/26/16 09:23; Admin Dose 4 MG; Start 09/16/16 at 00:30 Acetaminophen (Tylenol Tab) 650 mg Q6H PRN PO PAIN LEVEL 1-3 OR FEVER Last administered on 10/08/16 12:47; Admin Dose 650 MG; Start 09/16/16 at 00:30 Polyethylene Glycol (Miralax) 17 gm DAILY PO Last administered on 10/30/16 09: 00; Admin Dose 17 GM; Start 09/20/16 at 11:00 Acetaminophen/ Hydrocodone Bitart ([place] (5/325)) 1 tab Q4H PRN PO PAIN LEVEL 4 -7 Last administered on 09/28/16 21:20; Admin Dose 1 TAB; Start 09/21/16 at 15: 00 Acetaminophen/ Hydrocodone Bitart ([place] (5/325)) 2 tab Q4H PRN PO PAIN LEVEL 7 -10 Last administered on 10/21/16 08:49; Admin Dose 2 TAB; Start 09/21/16 at 15 :00 Hydromorphone HCl (Dilaudid) 0.5 mg Q2H PRN IV PAIN Last administered on 09:25; Admin Dose 0.5 MG; Start 09/21/16 at 15:00 Hydromorphone HCl (Dilaudid) 1 mg Q2H PRN IV PAIN Last administered on 01:54; Admin Dose 1 MG; Start 09/21/16 at 15:00 Docusate Sodium (Colace) 100 mg BID PRN PO CONSTIPATION; Start 09/21/16 at 15: 00 Docusate Sodium (Colace Liquid Cup) 100 mg BID NGT Last administered on 20:41; Admin Dose 100 MG; Start 09/22/16 at 21:00 IV Flush (NS 10 ml) 10 ml PRN PRN IV IV PROTOCOL; Start 09/25/16 at 12:00 Spironolactone (Aldactone) 50 mg DAILY NGT Last administered on 10/30/16 09:00 ; Admin Dose 50 MG; Start 09/28/16 at 09:00 Lorazepam (Ativan) 0.5 mg Q6H PRN IV AGITATION/ANXIETY Last administered on 08:00; Admin Dose 0.5 MG; Start 10/05/16 at 23:00 Nystatin (Nystatin Susp) 5 ml QID PO Last administered on 10/30/16 13:20; Admin Dose 5 ML; Start 10/19/16 at 13:00 Diphenhydramine HCl (Benadryl) 25 mg Q6H PRN IV PRURITUS Last administered on 10:49; Admin Dose 25 MG; Start 10/23/16 at 10:30 Loratadine (Claritin) 10 mg DAILY PO Last administered on 10/30/16 09:00; Admin Dose 10 MG; Start 10/23/16 at 15:00 Lansoprazole (Prevacid) 30 mg BID@06,18 NGT Last administered on 10/30/16 06: 25; Admin Dose 30 MG; Start 10/23/16 at 18:00 Midodrine 5 mg 5 mg BID@17 PO Last administered on 10/30/16 09:00; Admin Dose 5 MG; Start 10/26/16 at 17:00 Fluconazole/N/A (Diflucan 400 Mg/ NS (Pmx)/Evac Container) 600 ml @ 100 mls/hr Q24H IVPB Last administered on 10/30/16 12:32; Admin Dose 100 MLS/HR; Start at 09:00 Bumetanide (Bumex) 1 mg DAILY PO ; Start 10/31/16 at 09:00 ALEKS RAINEY MD Oct 30, 2016 15:03
--- NOTE | 2016-10-30 16:02 | PN ---
DATE: 10/30/2016 SUBJECTIVE DATA: No acute events overnight. The patient is lying comfortably in bed. No fevers. Her wound VAC was discontinued this morning. Temperature 98.7, pulse 99, respirations 20, blood pressure 116/66, saturation 100 on vent. LABORATORY AND DIAGNOSTIC DATA: WBC 9.6, H and H 7.6 and 23.2, platelets 290, no shift, no bands. BUN 27, creatinine 0.45. Repeat blood cultures negative. INDWELLINGS: Trach, PEG, [place], intra-abdominal drainage catheters and PICC line. ANTIMICROBIALS: Daptomycin, aztreonam, fluconazole. OBJECTIVE DATA: GENERAL: This is a chronically ill-appearing, elderly woman, who is lying comfortably in bed. HEENT: Head atraumatic, normocephalic. Sclerae anicteric. Buccal mucosa dry. NECK: Neck is supple. Tracheostomy present. LUNGS: Chest rise symmetrical. Breath sounds diminished at the bases. HEART: S1, S2. ABDOMEN: Soft. Bowel sounds present. EXTREMITIES: Extremities without cyanosis. ASSESSMENT: 1. Status post sepsis with shock. 2. Status post perforated colon repair with recurrent intra- abdominal abscess drainage on October 23, 2016, negative fluid culture. 3. 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 4. Coagulase negative Staph bacteremia consistent with contaminant. 5. Chronic respiratory failure. 6. Status post pneumonia. 7. Status post pneumothorax post thoracentesis, chest tube was discontinued. 8. History of ventriculoperitoneal shunt externalization status post ligation. 9. Anemia. 10. Resolving rash, likely allergic reaction. 11. ALLERGY TO PENICILLIN. PLAN: The patient remains stable. We are going to discontinue antibiotics. Continue her on high dose of Diflucan for indefinite time. Follow recommendations of consultants. Repeat cultures p.r.n. Dictated By: Kathy Lopez NP /rhina/emeka /Document#: [id number]
[2016-10-30] MEDS ORDERED: FUROSEMIDE 20 MG TAB PO SCH (18:00)
[2016-10-31] VITALS (36 sets, daily range): BP systolic 113–137; BP diastolic 57–83; PULSE 80–109; RESP 12–31
[2016-10-31] MEDS: IPRATROPIUM (HFA) 12.9 GM INHALER INH SCH ×6 (02:11→21:35)
[2016-10-31] MEDS: ALBUTEROL 18 GM INHALER INH SCH ×6 (02:11→21:35)
[2016-10-31 05:33] LABS: HEMATOCRIT 22.2 % (37.0-47.0); MEAN CORPUSCULAR HEMOGLOBIN 27.8 pg (29.0-33.0); MEAN CORPUSCULAR HGB CONC 31.5 g/dl (32.0-37.0); MEAN CORPUSCULAR VOLUME 88.1 fl (82.0-101.0); MEAN PLATELET VOLUME 10.8 fl (7.4-10.4); PLATELET COUNT 289 10^3/UL (140-415); RED BLOOD COUNT 2.52 10^6/ul (4.20-5.40); RED CELL DISTRIBUTION WIDTH 17.9 % (11.5-14.5); WHITE BLOOD COUNT 9.4 10^3/ul (4.8-10.8)
[2016-10-31] MEDS: LANSOPRAZOLE 30 MG CAP NGT SCH ×2 (05:33→18:30)
[2016-10-31 05:39] LABS: POSITIVE DIFF @See below
[2016-10-31 06:04] LABS: CALCIUM 7.2 mg/dl (8.4-10.2); CREATININE 0.44 mg/dl (0.44-1.00); MAGNESIUM 1.6 mg/dl (1.7-2.5); POTASSIUM 3.1 mmol/L (3.5-5.1)
--- NOTE | 2016-10-31 07:52 | PN ---
Date/Time of Note Date/Time of Note DATE: 10/30/16 TIME: 07:48 Assessment/Plan Lines/Catheters IV Catheter Type (from Nrsg): PICC Line Shore in Place (from Nrsg): Yes Assessment/Plan Assessment/Plan [facility] Progress Note (Late Entry) Date of Service: 10/30/2016 Place of service: [facility] ICU Today's Assessment & Plan: Overall still improving, all be it slowly. Appears noticeably improved neurologically over the last couple of days. No indication for acute surgical intervention. Main issue at this point is longterm recovery and patient's will to do the needed work. Awaiting bed in telemetry. Abdominal skin improved after removal of the wound vac and adjustment of the ostomy. Discussed with patient and with the team. Previous assessment that still applies today: Overall stable but with failure to thrive. Abdomen continues to remain benign. Trach and PEG being used. Drainage of perihepatic fluid collection ongoing. Of great importance is adequate nutrition and I recommended that we continue the feeds through the PEG with a goal of 60 cc/h with guidance from our dietitian colleagues. With above assessment, I recommended the following for today: 1. Continue current management 2. Transfer to telemetry when bed available 3. Please pursue an aggressive course towards weaning patient off the vent 4. Ostomy nurse to remain involved with the patient and assist with ostomy care and wound care Thank you again for your great care of this very pleasant patient and wonderful family. If there are any questions, please feel free to call me at [phone]. Nature of presenting problem: High severity Please note that, given the extensive number of diagnoses or management options , the extensive amount and/or complexity of data needed to be reviewed, and I risk of complications and/or morbidity or mortality, this qualifies as high complexity type of decision-making. Disclaimer: Inadvertent spelling and grammatical errors are likely due to EHR/ dictation software use and do not reflect on the quality of delivered patient care. Also, please note that the electronic time recorded on this node does not necessarily reflect the actual time of the visit. Updated Clinical Summary: A very pleasant 70-year-old lady without significant known past medical history other than a [employer] shunt placement many years ago which she did not remember or report, presenting with what appears to be a sigmoid colon abscess or pericolonic abscess, which seemed to be a complication of diverticulitis. S/p IR drainage 09/09/16 with removal of 20 cc pus and placement of a 10 Fr. pigtail catheter at [facility]. D/c home 09/12/16. Re-presented to [place] ED 09/15/16 after being diverted from [facility] (due to internal disaster diversion) where CT was done showing adequate placement of the percutaneous drain near the sigmoid colon and decompressed sigmoid colon abscess, no obvious free air or significant spillage of stool in the abdominal cavity, and incidental finding of tail of the [employer] shunt in the pelvis (new from right upper quadrant position of the same drain on the CT scan at [facility]). Transfer to [facility] 09/15/2016 for further cares. S/p upsizing of drain to 12 Fr pigtail on 09/17/16 (communication with colon demonstrated; no obvious free communication to rest of peritoneal space). Patient decompensated in the early hours of the morning on 09/21/2016 and had to be transferred to the intensive care unit with need for endotracheal tube intubation, central line placement, and resuscitation for treatment of shock with lactic acidosis and evidence of peritonitis and free air on the new chest, abdomen, and pelvis CT scan. S/p a rather challenging sigmoid colectomy with performance of end colostomy (Reid's procedure), takedown of splenic flexure of the colon, lysis of adhesions (60 minutes), and abdominal lavage at [facility] on 09/21/16; diagnosis of colon ischemia (distal transverse colon and descending colon) during reentry through recent laparotomy incision with exploration of abdominal cavity, takedown of colostomy, completion left hemicolectomy with resection of distal transverse colon, lysis of adhesions, abdominal lavage, performance of an end colostomy [facility] 09/24/16. Extubated post op evening of 09/25/16. Decompensation with intubation and restart of pressors . Right-sided pneumothorax after drainage of right pleural effusion requiring chest tube placement 09/30/2016. Extubated 10/03/2016. Decompensation with reintubation 10/06/16. Tracheostomy and PEG placed. Perihepatic fluid collections drained 10/13/2016. Cryptococcal antigen found in the urine 2016. Antifungal therapy started. S/p new perc drain perihepatic 10/23/16. Comorbidities: 1. Perforated sigmoid colon (see below) 2. Status post ventriculoperitoneal shunt placement. 3. Status post prior hysterectomy and bilateral salpingo-oophorectomy through Pfannenstiel incision 4. S/p IR drainage 09/09/16 with removal of 20 cc pus and placement of a 10 Fr. pigtail catheter at [facility]. 5. Readmission to [facility] 09/15/16 with upsizing of drain to 12 Fr pigtail on (communication with colon demonstrated; no obvious free communication to rest of peritoneal space). Septic shock with multiorgan failure 09/21/2016 requiring ICU admission with intubation and pressors. 6. S/p a rather challenging sigmoid colectomy with performance of end colostomy (Reid's procedure), takedown of splenic flexure of the colon, lysis of adhesions (60 minutes), and abdominal lavage at [facility] on 09/21/16 7. Colon ischemia (distal transverse colon and descending colon) 8. S/p reentry through recent laparotomy incision with exploration of abdominal cavity, takedown of colostomy, completion left hemicolectomy with resection of distal transverse colon, lysis of adhesions, abdominal lavage, performance of an end colostomy [facility] 09/24/16 9. Stage I/II decubitus pressure ulcers (10/11/2016 [facility] ICU) Subjective: Remain on a ventilator with tracheostomy without major events. Much less lethargic and more communicative. No major noted complaints regarding abdominal pain. With restraints. Objective: Vitals: See below I's & O's: See below Exam: GENERAL: On exam, the patient was lying in bed and appeared to be breathing comfortably on the vent. No obvious acute distress. Appears less emaciated. ABDOMEN: Soft, nontender and nondistended. Incision dressings are clean, dry and intact without any obvious evidence of underlying erythema, edema, discharge , or hernia. Surgical drain ss without any evidence of enteric contents. There are no peritoneal signs or guarding. Ostomy appears to be viable and productive with stool and air in the bag. Skin around the ostomy is improved. Perihepatic drains showing pus and minimal ss output. No bile. SKIN: Skin appears to be pink and feels warm to touch. NEUROLOGIC: Patient is more awake today and a bit more interactive; follows simple commands. Remains on the ventilator with tracheostomy tube. Labs: See below Exam/Review of Systems Vital Signs Vitals Vital Signs Date Time Temp Pulse Resp B/P Pulse Ox O2 Delivery O2 Flow Rate FiO2 10/31/16 07:38 97 27 100 30 10/31/16 06:05 115/74 Mechanical Ventilator 10/31/16 04:00 98.7 Intake and Output 10/30/16 10/30/16 10/31/16 15:00 23:00 07:00 Intake Total 1250 ml 990 ml 650 ml Output Total 510 ml 470 ml 645 ml Balance 740 ml 520 ml 5 ml Results Result Diagram: 10/31/16 0430 10/31/16 0430 ALEXSANDER DUARTE M.D. Oct 31, 2016 07:51
--- NOTE | 2016-10-31 07:55 | PN ---
Date/Time of Note Date/Time of Note DATE: 10/31/16 TIME: 07:52 Assessment/Plan Lines/Catheters IV Catheter Type (from Nrs): PICC Line Shore in Place (from Nrs): Yes Assessment/Plan Assessment/Plan [facility] Progress Note Date of Service: 10/31/2016 Place of service: [facility] ICU Today's Assessment & Plan: Overall still improving, all be it slowly. Continues to show improved neurological state. No indication for acute surgical intervention. Main issue at this point remains ch[facility] recovery and patient's will to do the needed work. Awaiting bed in telemetry. Discussed with patient and with the team. Previous assessment that still applies today: Overall stable but with failure to thrive. Abdomen continues to remain benign. Trach and PEG being used. Drainage of perihepatic fluid collection ongoing. Of great importance is adequate nutrition and I recommended that we continue the feeds through the PEG with a goal of 60 cc/h with guidance from our dietitian colleagues. With above assessment, I recommended the following for today: 1. Continue current management 2. Transfer to telemetry when bed available 3. Please pursue an aggressive course towards weaning patient off the vent 4. Ostomy nurse to remain involved with the patient and assist with ostomy care and wound care Thank you again for your great care of this very pleasant patient and wonderful family. If there are any questions, please feel free to call me at [phone]. Nature of presenting problem: High severity Please note that, given the extensive number of diagnoses or management options , the extensive amount and/or complexity of data needed to be reviewed, and I risk of complications and/or morbidity or mortality, this qualifies as high complexity type of decision-making. Disclaimer: Inadvertent spelling and grammatical errors are likely due to EHR/ dictation software use and do not reflect on the quality of delivered patient care. Also, please note that the electronic time recorded on this node does not necessarily reflect the actual time of the visit. Updated Clinical Summary: A very pleasant 70-year-old lady without significant known past medical history other than a [employer] shunt placement many years ago which she did not remember or report, presenting with what appears to be a sigmoid colon abscess or pericolonic abscess, which seemed to be a complication of diverticulitis. S/p IR drainage 09/09/16 with removal of 20 cc pus and placement of a 10 Fr. pigtail catheter at [facility]. D/c home 09/12/16. Re-presented to [place] ED 09/15/16 after being diverted from [facility] (due to internal disaster diversion) where CT was done showing adequate placement of the percutaneous drain near the sigmoid colon and decompressed sigmoid colon abscess, no obvious free air or significant spillage of stool in the abdominal cavity, and incidental finding of tail of the [employer] shunt in the pelvis (new from right upper quadrant position of the same drain on the CT scan at [facility]). Transfer to [facility] 09/15/2016 for further cares. S/p upsizing of drain to 12 Fr pigtail on 09/17/16 (communication with colon demonstrated; no obvious free communication to rest of peritoneal space). Patient decompensated in the early hours of the morning on 09/21/2016 and had to be transferred to the intensive care unit with need for endotracheal tube intubation, central line placement, and resuscitation for treatment of shock with lactic acidosis and evidence of peritonitis and free air on the new chest, abdomen, and pelvis CT scan. S/p a rather challenging sigmoid colectomy with performance of end colostomy (Reid's procedure), takedown of splenic flexure of the colon, lysis of adhesions (60 minutes), and abdominal lavage at [facility] on 09/21/16; diagnosis of colon ischemia (distal transverse colon and descending colon) during reentry through recent laparotomy incision with exploration of abdominal cavity, takedown of colostomy, completion left hemicolectomy with resection of distal transverse colon, lysis of adhesions, abdominal lavage, performance of an end colostomy [facility] 09/24/16. Extubated post op evening of 09/25/16. Decompensation with intubation and restart of pressors . Right-sided pneumothorax after drainage of right pleural effusion requiring chest tube placement 09/30/2016. Extubated 10/03/2016. Decompensation with reintubation 10/06/16. Tracheostomy and PEG placed. Perihepatic fluid collections drained 10/13/2016. Cryptococcal antigen found in the urine 2016. Antifungal therapy started. S/p new perc drain perihepatic 10/23/16. Comorbidities: 1. Perforated sigmoid colon (see below) 2. Status post ventriculoperitoneal shunt placement. 3. Status post prior hysterectomy and bilateral salpingo-oophorectomy through Pfannenstiel incision 4. S/p IR drainage 09/09/16 with removal of 20 cc pus and placement of a 10 Fr. pigtail catheter at [facility]. 5. Readmission to [facility] 09/15/16 with upsizing of drain to 12 Fr pigtail on (communication with colon demonstrated; no obvious free communication to rest of peritoneal space). Septic shock with multiorgan failure 09/21/2016 requiring ICU admission with intubation and pressors. 6. S/p a rather challenging sigmoid colectomy with performance of end colostomy (Reid's procedure), takedown of splenic flexure of the colon, lysis of adhesions (60 minutes), and abdominal lavage at [facility] on 09/21/16 7. Colon ischemia (distal transverse colon and descending colon) 8. S/p reentry through recent laparotomy incision with exploration of abdominal cavity, takedown of colostomy, completion left hemicolectomy with resection of distal transverse colon, lysis of adhesions, abdominal lavage, performance of an end colostomy [facility] 09/24/16 9. Stage I/II decubitus pressure ulcers (10/11/2016 [facility] ICU) Subjective: Remain on a ventilator with tracheostomy without major events. Awake today and much more communicative. No major noted complaints regarding abdominal pain. With restraints. Objective: Vitals: See below I's & O's: See below Exam: GENERAL: On exam, the patient was lying in bed and appeared to be breathing comfortably on the vent. No obvious acute distress. Appears less emaciated. ABDOMEN: Soft, nontender and nondistended. Incision dressings are clean, dry and intact without any obvious evidence of underlying erythema, edema, discharge , or hernia. There are no peritoneal signs or guarding. Ostomy appears to be viable and productive with stool and air in the bag. Skin around the ostomy is improved. Perihepatic drains showing pus and minimal ss output. No bile. SKIN: Skin appears to be pink and feels warm to touch. NEUROLOGIC: Patient is more awake today and more interactive; follows simple commands. Appeared to attempt to answer back and did answer yes/no questions. Remains on the ventilator with tracheostomy tube. Labs: See below Exam/Review of Systems Vital Signs Vitals Vital Signs Date Time Temp Pulse Resp B/P Pulse Ox O2 Delivery O2 Flow Rate FiO2 10/31/16 07:38 97 27 100 30 10/31/16 06:05 115/74 Mechanical Ventilator 10/31/16 04:00 98.7 Intake and Output 10/30/16 10/30/16 10/31/16 15:00 23:00 07:00 Intake Total 1250 ml 990 ml 650 ml Output Total 510 ml 470 ml 645 ml Balance 740 ml 520 ml 5 ml Results Result Diagram: 10/31/16 0430 10/31/16 0430 ALEXSANDER DUARTE M.D. Oct 31, 2016 07:54
[2016-10-31] MEDS ORDERED: MAGNESIUM SULFATE 2 GM/50 ML 50 ML IVPB ONE (08:00)
[2016-10-31] MEDS ORDERED: MAGNESIUM SULFATE 4 GM/100 ML 100 ML IVPB ONE (08:00)
[2016-10-31 08:14] LABS: EOSINOPHILS % (M) 2 % (0-7); HYPOCHROMASIA 2+ (0-0); METAMYELOCYTES %M 1 % (0-0); MONOCYTES % (M) 11 % (0-11); PLATELET ESTIMATE NORMAL
--- NOTE | 2016-10-31 08:48 | PN ---
DATE: 10/31/2016 SUBJECTIVE DATA: The patient remains in serious but stable condition. No other events noted. OBJECTIVE DATA: VITAL SIGNS: Blood pressure 115/74, respirations 20, pulse 75, temperature 98.7. HEENT: Head is normocephalic. NECK: Supple. HEART: Regular rate. LUNGS: Show diminished breath sounds at the base. ABDOMEN: Soft, nontender to palpation. No rebound or guarding. EXTREMITIES: Negative for clubbing, cyanosis. No edema. DERMATOLOGIC: Clean. No rashes. MUSCULOSKELETAL: No joint effusion. NEUROLOGIC: Unchanged exam. MEDICATIONS: Reviewed. LABORATORY AND DIAGNOSTIC DATA: Shows sodium 136, potassium 3.1, BUN 23, creatinine 0.44, magnesium 1.6. White count 9.4, hemoglobin 7.0, crit of 22.2, platelet count 289. ASSESSMENT AND PLAN: 1. Nonoliguric acute kidney injury. Etiology secondary to hemodynamics and acute tubular necrosis. Renal function appears to have stabilized. 2. Hypokalemia. Continue potassium protocol. 3. Volume overload, anasarca. Continue diuretic therapy per Cardiology. 4. Sepsis, status post shock. The patient is completing antibiotic course. 5. Hypomagnesemia. Replete magnesium sulfate. 6. Mineral bone disorder. Continue monitor calcium and phosphorus levels. 7. Anemia. Monitor H and H levels. Continue blood transfusion. 8. Ventilatory-dependent respiratory failure. Vent settings reviewed. ABGs reviewed. Continue to monitor. 9. Perforated viscus, status post colectomy with colostomy bag. 10. Dysphagia. Continue tube feeding. 11. Paroxysmal atrial fibrillation. Currently in sinus rhythm. Dictated By: Agustin Sanchez DO /rhina/ananda /Document#: [id number]
[2016-10-31] MEDS: DOCUSATE SODIUM 10 MG/ML (10ML CUP) NGT SCH ×2 (09:43→20:59)
[2016-10-31] MEDS: BUMETANIDE 1 MG TAB PO SCH (09:43)
[2016-10-31] MEDS: SPIRONOLACTONE 50 MG TAB NGT SCH (09:43)
[2016-10-31] MEDS: LORATADINE 10 MG TAB PO SCH (09:43)
[2016-10-31] MEDS: POLYETHYLENE GLYCOL 17 GM PACKET PO SCH (09:44)
[2016-10-31] MEDS: FLUCONAZOLE IVPB SCH ×2 (09:44)
[2016-10-31] MEDS: NYSTATIN SUSP 5 ML CUP PO SCH ×4 (09:44→20:59)
[2016-10-31] MEDS: SODIUM CHLORIDE IVPB SCH ×2 (09:44)
[2016-10-31] MEDS: MIDODRINE 5 MG TAB PO SCH ×2 (09:55→17:25)
[2016-10-31] MEDS: BALSAM PERU/CASTOR OIL 60 GM TUBE TOP SCH (09:56)
--- NOTE | 2016-10-31 10:57 | CONS ---
Date/Time of Note Date/Time of Note DATE: 10/31/16 TIME: 10:53 Assessment/Plan Assessment/Plan Additional Assessment/Plan Ventilator settings; SIMV of 8, pressure support of 12, tidal volume 450, 30% FiO2, PEEP of 5. Assessment and recommendations; 1. Patient admitted with severe sepsis status post recent bowel resection with colostomy. 2. Severe generalized deconditioning. 3. Poor mental status. 4. Anemia. 5. Patient now appearing tachypneic. 6. Right upper extremity DVT with persistent edema, patient not a candidate due to severe anemia for anticoagulation. 7. Status post right thoracentesis with resulting pneumothorax status post chest tube placement with subsequent removal. Ventilator settings have been adjusted, patient has been switched over to assist control mode with a rate of 12. She will be transfused blood. Prognosis remains poor. Consultation Date/Type/Reason Admit Date/Time Sep 15, 2016 at 21:35 Initial Consult Date 09/21/16 Type of Consultation: Pulmonary/critical care 24 HR Interval Summary Free Text/Dictation Patient condition remains tenuous at best. Still requiring ventilator support. Patient has remained hemodynamically stable but is appearing dyspneic with tachypnea. Patient exhibiting poor mental status. General exam; elderly woman, appears quite emaciated, on ventilator via tracheostomy. Awake and tachypneic. Exam/Review of Systems Vital Signs Vitals Vital Signs Date Time Temp Pulse Resp B/P Pulse Ox O2 Delivery O2 Flow Rate FiO2 10/31/16 08:00 96 10/31/16 07:38 27 100 30 10/31/16 06:05 115/74 Mechanical Ventilator 10/31/16 04:00 98.7 Intake and Output 10/30/16 10/30/16 10/31/16 15:00 23:00 07:00 Intake Total 1250 ml 990 ml 650 ml Output Total 510 ml 470 ml 645 ml Balance 740 ml 520 ml 5 ml Exam HEENT exam; supple neck, no JVD. No lymphadenopathy. Midline trachea. No thyromegaly. Tracheostomy in place. Patient has multiple carious teeth. Pupils are small bilaterally. Chest exam; clear to auscultation. S1-S2 audible, no murmurs. Regular rhythm. Abdomen exam; soft, colostomy in place. G-tube in place. Bowel sounds audible. Extremity exam; trace edema. KILN P[employer]ER exam; patient is awake but does not follow any commands. Results Result Diagram: 10/31/16 0430 10/31/16 0430 Results 24 hrs Laboratory Tests Test 10/31/16 04:30 White Blood Count 9.4 Red Blood Count 2.52 L Hemoglobin 7.0 L Hematocrit 22.2 L Mean Corpuscular Volume 88.1 Mean Corpuscular Hemoglobin 27.8 L Mean Corpuscular Hemoglobin Concent 31.5 L Red Cell Distribution Width 17.9 H Platelet Count 289 Mean Platelet Volume 10.8 H Neutrophils % Segmented Neutrophils % (Manual) 76 Lymphocytes % Lymphocytes % (Manual) 10 L Monocytes % Monocytes % (Manual) 11 Eosinophils % Eosinophils % (Manual) 2 Basophils % Metamyelocytes % (manual) 1 H Nucleated Red Blood Cells % 0.0 Neutrophils # (Manual) Absolute Lymphocytes (Manual) 0.9 Lymphocytes # Monocytes # Absolute Monocytes (Manual) 1.0 H Eosinophils # Basophils # Metamyelocytes # 0.0 Nucleated Red Blood Cells # Platelet Estimate NORMAL Hypochromasia 2+ Sodium Level 136 Potassium Level 3.1 L Chloride Level 105 Carbon Dioxide Level 28 Anion Gap 6 L Blood Urea Nitrogen 23 H Creatinine 0.44 Glucose Level 103 Calcium Level 7.2 L Magnesium Level 1.6 L Medications Medications Current Medications Ondansetron HCl (Zofran Inj) 4 mg Q6H PRN IV NAUSEA AND/OR VOMITING Last administered on 09/26/16 09:23; Admin Dose 4 MG; Start 09/16/16 at 00:30 Acetaminophen (Tylenol Tab) 650 mg Q6H PRN PO PAIN LEVEL 1-3 OR FEVER Last administered on 10/08/16 12:47; Admin Dose 650 MG; Start 09/16/16 at 00:30 Polyethylene Glycol (Miralax) 17 gm DAILY PO Last administered on 10/31/16 09: 44; Admin Dose 17 GM; Start 09/20/16 at 11:00 Acetaminophen/ Hydrocodone Bitart (Racine (5/325)) 1 tab Q4H PRN PO PAIN LEVEL 4 -7 Last administered on 09/28/16 21:20; Admin Dose 1 TAB; Start 09/21/16 at 15: 00 Acetaminophen/ Hydrocodone Bitart (Racine (5/325)) 2 tab Q4H PRN PO PAIN LEVEL 7 -10 Last administered on 10/21/16 08:49; Admin Dose 2 TAB; Start 09/21/16 at 15 :00 Hydromorphone HCl (Dilaudid) 0.5 mg Q2H PRN IV PAIN Last administered on 09:25; Admin Dose 0.5 MG; Start 09/21/16 at 15:00 Hydromorphone HCl (Dilaudid) 1 mg Q2H PRN IV PAIN Last administered on 01:54; Admin Dose 1 MG; Start 09/21/16 at 15:00 Docusate Sodium (Colace) 100 mg BID PRN PO CONSTIPATION; Start 09/21/16 at 15: 00 Docusate Sodium (Colace Liquid Cup) 100 mg BID NGT Last administered on 09:43; Admin Dose 100 MG; Start 09/22/16 at 21:00 IV Flush (NS 10 ml) 10 ml PRN PRN IV IV PROTOCOL; Start 09/25/16 at 12:00 Spironolactone (Aldactone) 50 mg DAILY NGT Last administered on 10/31/16 09:43 ; Admin Dose 50 MG; Start 09/28/16 at 09:00 Lorazepam (Ativan) 0.5 mg Q6H PRN IV AGITATION/ANXIETY Last administered on 08:00; Admin Dose 0.5 MG; Start 10/05/16 at 23:00 Nystatin (Nystatin Susp) 5 ml QID PO Last administered on 10/31/16 09:44; Admin Dose 5 ML; Start 10/19/16 at 13:00 Diphenhydramine HCl (Benadryl) 25 mg Q6H PRN IV PRURITUS Last administered on 10:49; Admin Dose 25 MG; Start 10/23/16 at 10:30 Loratadine (Claritin) 10 mg DAILY PO Last administered on 10/31/16 09:43; Admin Dose 10 MG; Start 10/23/16 at 15:00 Lansoprazole (Prevacid) 30 mg BID@18 NGT Last administered on 10/31/16 05: 33; Admin Dose 30 MG; Start 10/23/16 at 18:00 Midodrine 5 mg 5 mg BID@ PO Last administered on 8/24/17at 09:55; Admin Dose 5 MG; Start 10/26/16 at 17:00 Fluconazole/N/A (Diflucan 400 Mg/ NS (Pmx)/Evac Container) 600 ml @ 100 mls/hr Q24H IVPB Last administered on 10/31/16 09:44; Admin Dose 100 MLS/HR; Start at 09:00 Bumetanide 1 mg 1 mg DAILY PO Last administered on 10/31/16 09:43; Admin Dose 1 MG; Start 10/31/16 at 09:00 Magnesium Sulfate (Magnesium Sulfate 4 Gm/100 ml) 100 ml @ 25 mls/hr ONCE ONCE IVPB Last administered on 10/31/16 09:56; Admin Dose 25 MLS/HR; Start at 08:00; Stop 10/31/16 at 11:59 GERARDO JUSTICE Oct 31, 2016 10:57
--- NOTE | 2016-10-31 13:34 | PN ---
Date/Time of Note Date/Time of Note DATE: 10/31/16 TIME: 13:32 Assessment/Plan VTE Prophylaxis VTE Prophylaxis Intervention: SCD's Lines/Catheters IV Catheter Type (from Nrsg): PICC Line Central line still needed: Yes Urinary Cath still in place: Yes Reason Cath still needed: pres ulcer contaminated by urine Assessment/Plan Assessment/Plan 70 yo F with h/o hydrocephalus with previous VPS admitted for sigmoid abscess. hospital stay cb sepsis, colon perforation with multiple abd fluid collections , also recurrent respiratory failure warranting trach, pleural effusion with thora c/b by PTX (chest tube removed) 1. Sigmoid colon abscess 2/2 diverticulitis - s/p sigmoid colectomy with end colostomy (Reid's procedure) and adhesiolysis on 09/21/16 - cont abx and gen surg care 2. Ventilator dependent respiratory failure: sp trach 4. Paroxysmal A. fib: Now in sinus rhythm status post amiodarone. Cardiology on board 5. Acute renal insufficiency: Resolved. 6. Anemia: unclear etio of acute on chronic. 7. Dysphagia Status post PEG tube placement 8. RUE DVT: hold lovenox given anemia 9. hypotension: started on midodrine 10. 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 ID following tele xfer requested 8.22 LTAC when ok'd by general surgery critical care time: 30 minutes Subjective 24 Hr Interval Summary Free Text/Dictation clinical status largely unchanged overnight Exam/Review of Systems Vital Signs Vitals Vital Signs Date Time Temp Pulse Resp B/P Pulse Ox O2 Delivery O2 Flow Rate FiO2 10/31/16 13:00 84 18 125/66 100 Mechanical Ventilator 10/31/16 12:00 98.8 10/31/16 07:38 30 Intake and Output 10/30/16 10/30/16 10/31/16 15:00 23:00 07:00 Intake Total 1250 ml 990 ml 650 ml Output Total 510 ml 470 ml 645 ml Balance 740 ml 520 ml 5 ml Exam nad trach c/d/i no mrg abd with ostomy ,PEG. wound vac off no rashes Results Result Diagram: 10/31/16 0430 10/31/16 0430 Results 24 hrs Laboratory Tests Test 10/31/16 04:30 White Blood Count 9.4 Red Blood Count 2.52 L Hemoglobin 7.0 L Hematocrit 22.2 L Mean Corpuscular Volume 88.1 Mean Corpuscular Hemoglobin 27.8 L Mean Corpuscular Hemoglobin Concent 31.5 L Red Cell Distribution Width 17.9 H Platelet Count 289 Mean Platelet Volume 10.8 H Neutrophils % Segmented Neutrophils % (Manual) 76 Lymphocytes % Lymphocytes % (Manual) 10 L Monocytes % Monocytes % (Manual) 11 Eosinophils % Eosinophils % (Manual) 2 Basophils % Metamyelocytes % (manual) 1 H Nucleated Red Blood Cells % 0.0 Neutrophils # (Manual) Absolute Lymphocytes (Manual) 0.9 Lymphocytes # Monocytes # Absolute Monocytes (Manual) 1.0 H Eosinophils # Basophils # Metamyelocytes # 0.0 Nucleated Red Blood Cells # Platelet Estimate NORMAL Hypochromasia 2+ Sodium Level 136 Potassium Level 3.1 L Chloride Level 105 Carbon Dioxide Level 28 Anion Gap 6 L Blood Urea Nitrogen 23 H Creatinine 0.44 Glucose Level 103 Calcium Level 7.2 L Magnesium Level 1.6 L Medications Medications Current Medications Ondansetron HCl (Zofran Inj) 4 mg Q6H PRN IV NAUSEA AND/OR VOMITING Last administered on 09/26/16 09:23; Admin Dose 4 MG; Start 09/16/16 at 00:30 Acetaminophen (Tylenol Tab) 650 mg Q6H PRN PO PAIN LEVEL 1-3 OR FEVER Last administered on 10/08/16 12:47; Admin Dose 650 MG; Start 09/16/16 at 00:30 Polyethylene Glycol (Miralax) 17 gm DAILY PO Last administered on 10/31/16 09: 44; Admin Dose 17 GM; Start 09/20/16 at 11:00 Acetaminophen/ Hydrocodone Bitart ([place] (5/325)) 1 tab Q4H PRN PO PAIN LEVEL 4 -7 Last administered on 09/28/16 21:20; Admin Dose 1 TAB; Start 09/21/16 at 15: 00 Acetaminophen/ Hydrocodone Bitart ([place] (5/325)) 2 tab Q4H PRN PO PAIN LEVEL 7 -10 Last administered on 10/21/16 08:49; Admin Dose 2 TAB; Start 09/21/16 at 15 :00 Hydromorphone HCl (Dilaudid) 0.5 mg Q2H PRN IV PAIN Last administered on 09:25; Admin Dose 0.5 MG; Start 09/21/16 at 15:00 Hydromorphone HCl (Dilaudid) 1 mg Q2H PRN IV PAIN Last administered on 01:54; Admin Dose 1 MG; Start 09/21/16 at 15:00 Docusate Sodium (Colace) 100 mg BID PRN PO CONSTIPATION; Start 09/21/16 at 15: 00 Docusate Sodium (Colace Liquid Cup) 100 mg BID NGT Last administered on 09:43; Admin Dose 100 MG; Start 09/22/16 at 21:00 IV Flush (NS 10 ml) 10 ml PRN PRN IV IV PROTOCOL; Start 09/25/16 at 12:00 Spironolactone (Aldactone) 50 mg DAILY NGT Last administered on 10/31/16 09:43 ; Admin Dose 50 MG; Start 09/28/16 at 09:00 Lorazepam (Ativan) 0.5 mg Q6H PRN IV AGITATION/ANXIETY Last administered on 08:00; Admin Dose 0.5 MG; Start 10/05/16 at 23:00 Nystatin (Nystatin Susp) 5 ml QID PO Last administered on 10/31/16 09:44; Admin Dose 5 ML; Start 10/19/16 at 13:00 Diphenhydramine HCl (Benadryl) 25 mg Q6H PRN IV PRURITUS Last administered on 10:49; Admin Dose 25 MG; Start 10/23/16 at 10:30 Loratadine (Claritin) 10 mg DAILY PO Last administered on 10/31/16 09:43; Admin Dose 10 MG; Start 10/23/16 at 15:00 Lansoprazole (Prevacid) 30 mg BID@,18 NGT Last administered on 10/31/16 05: 33; Admin Dose 30 MG; Start 10/23/16 at 18:00 Midodrine 5 mg 5 mg BID@ PO Last administered on 10/31/16 09:55; Admin Dose 5 MG; Start 10/26/16 at 17:00 Fluconazole/N/A (Diflucan 400 Mg/ NS (Pmx)/Evac Container) 600 ml @ 100 mls/hr Q24H IVPB Last administered on 10/31/16 09:44; Admin Dose 100 MLS/HR; Start at 09:00 Bumetanide (Bumex) 1 mg DAILY PO Last administered on 10/31/16t 09:43; Admin Dose 1 MG; Start 10/31/16 at 09:00 ALEKS RAINEY MD Oct 31, 2016 13:33
--- NOTE | 2016-10-31 13:40 | PN ---
DATE: 10/31/2016 SUBJECTIVE DATA: No acute changes per report. The patient is awake, looks comfortable. No fevers. OBJECTIVE DATA: VITAL SIGNS: Temperature 98.7, pulse 97, respirations 20, blood pressure 115/74, saturation 100 on 30 FiO2. LABORATORY AND DIAGNOSTIC DATA: WBC 9.4, H and H 7 and 22.2, platelets 289. BUN 23, creatinine 0.44. INDWELLINGS: Trach, PEG, Shore, intra-abdominal drainage catheters, PICC line. ANTIMICROBIALS: Diflucan 1200 mg daily. PHYSICAL EXAMINATION: GENERAL: This is a fragile, chronically ill-appearing, elderly woman, who is awake, in no distress. HEENT: Head atraumatic, normocephalic. Sclerae anicteric. Buccal mucosa dry. NECK: Supple. Tracheostomy present. LUNGS: Chest rise symmetrical. Breath sounds diminished at the bases. HEART: S1, S2. ABDOMEN: Soft. Bowel sounds present. EXTREMITIES: Without cyanosis. ASSESSMENT: 1. Resolving sepsis. 2. Disseminated cryptococcal infection, likely pulmonary source, with a sputum culture on admission growing mold. 3. Status post perforated bowel repair with end-colostomy complicated by intra-abdominal abscess, requiring pigtail catheter placement on October 23, 2016, with fluid cultures being negative. 4. Coag-negative staph bacteremia consistent with contaminant. 5. Status post pneumonia. 6. Status post pneumothorax, post thoracentesis, chest tube discontinued. 7. Chronic respiratory failure, status post trach. 8. Dysphagia. 9. History of ventriculoperitoneal shunt externalization with ligation. 10. Anemia. 11. Resolving rash secondary to allergic reaction, likely to meropenem. 12. Allergy to penicillin. PLAN: The patient remains stable. She is off antibiotics. Currently on antifungal coverage for cryptococcus, which we will continue for indefinite time. She is being followed by surgical team. We will Follow their recommendations. Dictated By: Kathy Lopez NP /rhina/ananda /Document#: [id number]
[2016-10-31] MEDS: POTASSIUM CHLORIDE 50 ML IVPB PRN ×3 (14:41→18:46)
--- NOTE | 2016-10-31 19:55 | PN ---
Date/Time of Note Date/Time of Note DATE: 10/31/16 TIME: 19:54 Assessment/Plan Lines/Catheters IV Catheter Type (from Nrsg): PICC Line Shore in Place (from Nrsg): Yes Assessment/Plan Chief Complaint/Hosp Course This is a 70-year-old female admitted with a perforated colon and contained abscess underwent a drainage procedure on further colonic procedures patient is currently in the intensive care unit unable to come off the ventilator secondary to multiple medical problems Patient was extubated and had to be input intubated again has been treated for septic shock lactic acidosis peritonitis currently has an end colostomy Helio pouch and has undergone colon resection patient also has a right-sided chest tube for a pneumothorax She was reintubated again Status post tracheostomy We will continue pulmonary toilet Trach care Vent support Pulmonary toilet Patient DNR supp care Problems: Subjective 24 Hr Interval Summary Constitutional: improved Pain Control: mild Exam/Review of Systems Vital Signs Vitals Vital Signs Date Time Temp Pulse Resp B/P Pulse Ox O2 Delivery O2 Flow Rate FiO2 10/31/16 19:11 90 22 100 30 10/31/16 18:00 120/67 Mechanical Ventilator 10/31/16 16:00 97.9 Intake and Output 10/30/16 10/30/16 10/31/16 15:00 23:00 07:00 Intake Total 1250 ml 990 ml 710 ml Output Total 510 ml 470 ml 730 ml Balance 740 ml 520 ml -20 ml Exam Neck: non-tender, supple Respiratory: clear to auscultation, normal air movement Cardiovascular: nl pulses, regular rate and rhythm Results Result Diagram: 10/31/16 0430 10/31/16 0430 GIL PINEDA MD Oct 31, 2016 19:55
[2016-11-01] VITALS (24 sets, daily range): BP systolic 76–129; BP diastolic 43–68; PULSE 85–100; RESP 16–28
[2016-11-01] MEDS: ALBUTEROL 18 GM INHALER INH SCH ×6 (01:00→21:00)
[2016-11-01] MEDS: IPRATROPIUM (HFA) 12.9 GM INHALER INH SCH ×6 (01:00→21:00)
[2016-11-01] MEDS: LANSOPRAZOLE 30 MG CAP NGT SCH ×2 (05:50→18:45)
[2016-11-01] MEDS: LORATADINE 10 MG TAB PO SCH (09:08)
[2016-11-01] MEDS: NYSTATIN SUSP 5 ML CUP PO SCH ×4 (09:08→21:11)
[2016-11-01] MEDS: SPIRONOLACTONE 50 MG TAB NGT SCH (09:08)
[2016-11-01] MEDS: FLUCONAZOLE IVPB SCH ×2 (09:08)
[2016-11-01] MEDS: BUMETANIDE 1 MG TAB PO SCH (09:08)
[2016-11-01] MEDS: DOCUSATE SODIUM 10 MG/ML (10ML CUP) NGT SCH ×2 (09:08→21:11)
[2016-11-01] MEDS: POLYETHYLENE GLYCOL 17 GM PACKET PO SCH (09:08)
[2016-11-01] MEDS: SODIUM CHLORIDE IVPB SCH ×2 (09:08)
[2016-11-01] MEDS: MIDODRINE 5 MG TAB PO SCH ×2 (09:09→18:45)
[2016-11-01] MEDS: BALSAM PERU/CASTOR OIL 60 GM TUBE TOP SCH (09:09)
[2016-11-01] MEDS: ACETAMINOPHEN 325 MG TAB PO PRN (09:22)
--- NOTE | 2016-11-01 09:30 | PN ---
DATE: 11/01/2016 SUBJECTIVE DATA: The patient was transferred from ICU to telemetry. No other events noted. No hemoptysis, hematemesis, hematochezia. OBJECTIVE DATA: VITAL SIGNS: Blood pressure is 110/60, respirations 16, pulse 95, temperature 99.0 HEENT: Head is normocephalic. NECK: Shows trach. HEART: Regular rate. LUNGS: Show diminished breath sounds base. ABDOMEN: Soft, nontender to palpation. Positive colostomy. EXTREMITIES: Negative for clubbing, cyanosis. Positive edema. DERMATOLOGIC: Clean. No rashes. MUSCULOSKELETAL: No joint effusion. NEUROLOGIC: No change in exam. MEDICATIONS: Reviewed. LABORATORY AND DIAGNOSTIC DATA: Currently pending. ASSESSMENT AND PLAN: 1. Nonoliguric acute kidney injury. Etiology secondary to hemodynamics and acute tubular necrosis. Patient's renal function stabilized. Continue supportive care. Renally dose medications, avoid nephrotoxins. 2. Hypokalemia. Continue to monitor and replete. 3. Hypomagnesemia. Continue to monitor and replete. 4. Volume overload with anasarca secondary third-spacing. Continue current diuretic regimen, being managed by Cardiology. 5. Sepsis status post shock. The patient is completing antibiotic course. 6. Mineral bone disorder. Monitor calcium and phosphorus levels. 7. Anemia. Continue to monitor H and H levels. 8. Ventilatory-dependent respiratory failure. Vent settings and ABGs reviewed. Continue to monitor. 9. Perforated viscus, status post colectomy with colostomy bag. 10. Dysphagia, status post percutaneous endoscopic gastrostomy. 11. Paroxysmal atrial fibrillation. Currently in sinus rhythm. Continue to monitor. Dictated By: Agustin Sanchez DO /rhina/ananda /Document#: [id number]
--- NOTE | 2016-11-01 09:59 | CONS ---
Date/Time of Note Date/Time of Note DATE: 11/01/16 TIME: 09:56 Assessment/Plan Assessment/Plan Additional Assessment/Plan Ventilator setting; AC of 12, tidal volume 450, PEEP of 5, 30% FiO2. Assessment and recommendations; 1. Patient admitted with severe sepsis with recent bowel resection and colostomy. 2. Anemia. 3. Poor mental state. 4. Right upper extremity DVT, patient not a candidate for anticoagulation due to anemia and thrombocytopenia. 5. Right iatrogenic pneumothorax after undergoing thoracentesis status post chest tube placement with subsequent removal. Continue current supportive care. Prognosis is poor. Consultation Date/Type/Reason Admit Date/Time Sep 15, 2016 at 21:35 Initial Consult Date 09/21/16 Type of Consultation: Pulmonary/critical care 24 HR Interval Summary Free Text/Dictation Patient has been transferred to the telemetry unit from ICU. She remains awake but minimally interactive and responsive to any commands. General exam; elderly woman, on ventilator via tracheostomy, awake, currently in no distress. Exam/Review of Systems Vital Signs Vitals Vital Signs Date Time Temp Pulse Resp B/P Pulse Ox O2 Delivery O2 Flow Rate FiO2 11/01/16 08:21 95 11/01/16 07:27 99.0 16 110/60 97 11/01/16 06:07 30 10/31/16 22:00 Mechanical Ventilator Intake and Output 10/31/16 10/31/16 11/01/16 15:00 23:00 07:00 Intake Total 1180 ml 920 ml 920 ml Output Total 650 ml 700 ml 450 ml Balance 530 ml 220 ml 470 ml Exam HEENT exam; supple neck, no JVD. No lymphadenopathy. Midline trachea. No thyromegaly. Tracheostomy in place. Patient has fair dentition. Chest exam; diminished but clear breath sounds. S1-S2 audible, no murmurs. Regular rhythm. Abdomen exam; soft, no organomegaly. G-tube in place. Colostomy in place. Bowel sounds are very sluggish. Extremity exam; no peripheral edema. [employer] exam; patient awake but minimally responsive to any commands. Results Result Diagram: 10/31/16 0430 10/31/16 0430 Results 24 hrs Laboratory Tests Test 11/01/16 01:24 Bedside Glucose 103 Medications Medications Current Medications Ondansetron HCl (Zofran Inj) 4 mg Q6H PRN IV NAUSEA AND/OR VOMITING Last administered on 09/26/16 09:23; Admin Dose 4 MG; Start 09/16/16 at 00:30 Acetaminophen (Tylenol Tab) 650 mg Q6H PRN PO PAIN LEVEL 1-3 OR FEVER Last administered on 11/01/16 09:22; Admin Dose 650 MG; Start 09/16/16 at 00:30 Polyethylene Glycol (Miralax) 17 gm DAILY PO Last administered on 11/01/16 09: 08; Admin Dose 17 GM; Start 09/20/16 at 11:00 Acetaminophen/ Hydrocodone Bitart ([place] (5/325)) 1 tab Q4H PRN PO PAIN LEVEL 4 -7 Last administered on 09/28/16 21:20; Admin Dose 1 TAB; Start 09/21/16 at 15: 00 Acetaminophen/ Hydrocodone Bitart ([place] (5/325)) 2 tab Q4H PRN PO PAIN LEVEL 7 -10 Last administered on 10/21/16 08:49; Admin Dose 2 TAB; Start 09/21/16 at 15 :00 Hydromorphone HCl (Dilaudid) 0.5 mg Q2H PRN IV PAIN Last administered on 09:25; Admin Dose 0.5 MG; Start 09/21/16 at 15:00 Hydromorphone HCl (Dilaudid) 1 mg Q2H PRN IV PAIN Last administered on 01:54; Admin Dose 1 MG; Start 09/21/16 at 15:00 Docusate Sodium (Colace) 100 mg BID PRN PO CONSTIPATION; Start 09/21/16 at 15: 00 Docusate Sodium (Colace Liquid Cup) 100 mg BID NGT Last administered on 09:08; Admin Dose 100 MG; Start 09/22/16 at 21:00 IV Flush (NS 10 ml) 10 ml PRN PRN IV IV PROTOCOL; Start 09/25/16 at 12:00 Spironolactone (Aldactone) 50 mg DAILY NGT Last administered on 11/01/16 09:08 ; Admin Dose 50 MG; Start 09/28/16 at 09:00 Lorazepam (Ativan) 0.5 mg Q6H PRN IV AGITATION/ANXIETY Last administered on 08:00; Admin Dose 0.5 MG; Start 10/05/16 at 23:00 Nystatin (Nystatin Susp) 5 ml QID PO Last administered on 11/01/16 09:08; Admin Dose 5 ML; Start 10/19/16 at 13:00 Diphenhydramine HCl (Benadryl) 25 mg Q6H PRN IV PRURITUS Last administered on 10:49; Admin Dose 25 MG; Start 10/23/16 at 10:30 Loratadine (Claritin) 10 mg DAILY PO Last administered on 11/01/16 09:08; Admin Dose 10 MG; Start 10/23/16 at 15:00 Lansoprazole (Prevacid) 30 mg BID@06,18 NGT Last administered on 11/01/16 05: 50; Admin Dose 30 MG; Start 10/23/16 at 18:00 Midodrine 5 mg 5 mg BID@,17 PO Last administered on 11/01/16 09:09; Admin Dose 5 MG; Start 10/26/16 at 17:00 Fluconazole/N/A (Diflucan 400 Mg/ NS (Pmx)/Evac Container) 600 ml @ 100 mls/hr Q24H IVPB Last administered on 11/01/16 09:08; Admin Dose 100 MLS/HR; Start at 09:00 Bumetanide (Bumex) 1 mg DAILY PO Last administered on 11/01/16 09:08; Admin Dose 1 MG; Start 10/31/16 at 09:00 GERARDO JUSTICE Nov 01, 2016 09:59
--- NOTE | 2016-11-01 11:29 | PN ---
Date/Time of Note Date/Time of Note DATE: 11/01/16 TIME: 11:27 Assessment/Plan Lines/Catheters IV Catheter Type (from Nrsg): PICC Line Shore in Place (from Nrsg): Yes Assessment/Plan Chief Complaint/Hosp Course This is a 70-year-old female admitted with a perforated colon and contained abscess underwent a drainage procedure on further colonic procedures patient is currently in the intensive care unit unable to come off the ventilator secondary to multiple medical problems Patient was extubated and had to be input intubated again has been treated for septic shock lactic acidosis peritonitis currently has an end colostomy Helio pouch and has undergone colon resection patient also has a right-sided chest tube for a pneumothorax She was reintubated again Status post tracheostomy We will continue pulmonary toilet Trach care Right upper extremity DVT, patient not a candidate for anticoagulation due to anemia and thrombocytopenia. Vent support Pulmonary toilet Patient DNR supp care Problems: Subjective 24 Hr Interval Summary Constitutional: improved Pain Control: mild Exam/Review of Systems Vital Signs Vitals Vital Signs Date Time Temp Pulse Resp B/P Pulse Ox O2 Delivery O2 Flow Rate FiO2 11/01/16 08:21 95 11/01/16 07:27 99.0 16 110/60 97 11/01/16 06:07 30 10/31/16 22:00 Mechanical Ventilator Intake and Output 10/31/16 10/31/16 11/01/16 15:00 23:00 07:00 Intake Total 1180 ml 920 ml 920 ml Output Total 650 ml 700 ml 450 ml Balance 530 ml 220 ml 470 ml Exam Neck: non-tender, supple Respiratory: clear to auscultation, normal air movement Results Result Diagram: 10/31/16 0430 10/31/16 0430 GIL PINEDA MD Nov 01, 2016 11:28
--- NOTE | 2016-11-01 15:54 | CONS ---
Date/Time of Note Date/Time of Note DATE: 11/01/16 TIME: 15:53 Assessment/Plan Assessment/Plan Chief Complaint/Hosp Course SUBJECTIVE DATA: No acute changes overnight patient was transferred to telemetry she is lying comfortably in bed Temperature 98.2 pulse 78 respirations 16 blood pressure 99/68 saturation 97% INDWELLINGS: Trach, PEG, Shore, intra-abdominal drainage catheters, PICC line. ANTIMICROBIALS: Diflucan 1200 mg daily. PHYSICAL EXAMINATION: GENERAL: This is a fragile, chronically ill-appearing, elderly woman, who is awake, in no distress. HEENT: Head atraumatic, normocephalic. Sclerae anicteric. Buccal mucosa dry. NECK: Supple. Tracheostomy present. LUNGS: Chest rise symmetrical. Breath sounds diminished at the bases. HEART: S1, S2. ABDOMEN: Soft. Bowel sounds present. EXTREMITIES: Without cyanosis. ASSESSMENT: 1. Resolving sepsis. 2. Disseminated cryptococcal infection, likely pulmonary source, with a sputum culture on admission growing mold, CSF cultures negative. 3. Status post perforated bowel repair with end-colostomy complicated by intra-abdominal abscess, requiring pigtail catheter placement on October 23, 2016, with fluid cultures being negative. 4. Coag-negative staph bacteremia consistent with contaminant. 5. Status post pneumonia. 6. Status post pneumothorax, post thoracentesis, chest tube discontinued. 7. Chronic respiratory failure, status post trach. 8. Dysphagia. 9. History of ventriculoperitoneal shunt externalization with ligation. 10. Anemia. 11. Resolving rash secondary to allergic reaction, likely to meropenem. 12. Allergy to penicillin. PLAN: The patient remains stable. Continue present care, continue high-dose Diflucan for indefinite time follow surgical recommendations, repeat cultures as needed Discussed with staff Problems: Consultation Date/Type/Reason Admit Date/Time Sep 15, 2016 at 21:35 Type of Consultation: ID Exam/Review of Systems Vital Signs Vitals Vital Signs Date Time Temp Pulse Resp B/P Pulse Ox O2 Delivery O2 Flow Rate FiO2 11/01/16 15:01 98.2 78 16 99/68 97 11/01/16 08:00 30 10/31/16 22:00 Mechanical Ventilator Intake and Output 10/31/16 10/31/16 11/01/16 15:00 23:00 07:00 Intake Total 1180 ml 920 ml 920 ml Output Total 650 ml 700 ml 450 ml Balance 530 ml 220 ml 470 ml Results Result Diagram: 10/31/16 0430 10/31/16 0430 Results 24 hrs Laboratory Tests Test 11/01/16 01:24 Bedside Glucose 103 Medications Medications Current Medications Ondansetron HCl (Zofran Inj) 4 mg Q6H PRN IV NAUSEA AND/OR VOMITING Last administered on 09/26/16 09:23; Admin Dose 4 MG; Start 09/16/16 at 00:30 Acetaminophen (Tylenol Tab) 650 mg Q6H PRN PO PAIN LEVEL 1-3 OR FEVER Last administered on 11/01/16 09:22; Admin Dose 650 MG; Start 09/16/16 at 00:30 Polyethylene Glycol (Miralax) 17 gm DAILY PO Last administered on 11/01/16 09: 08; Admin Dose 17 GM; Start 09/20/16 at 11:00 Acetaminophen/ Hydrocodone Bitart ([place] (5/325)) 1 tab Q4H PRN PO PAIN LEVEL 4 -7 Last administered on 09/28/16 21:20; Admin Dose 1 TAB; Start 09/21/16 at 15: 00 Acetaminophen/ Hydrocodone Bitart ([place] (5/325)) 2 tab Q4H PRN PO PAIN LEVEL 7 -10 Last administered on 10/21/16 08:49; Admin Dose 2 TAB; Start 09/21/16 at 15 :00 Hydromorphone HCl (Dilaudid) 0.5 mg Q2H PRN IV PAIN Last administered on 09:25; Admin Dose 0.5 MG; Start 09/21/16 at 15:00 Hydromorphone HCl (Dilaudid) 1 mg Q2H PRN IV PAIN Last administered on 01:54; Admin Dose 1 MG; Start 09/21/16 at 15:00 Docusate Sodium (Colace) 100 mg BID PRN PO CONSTIPATION; Start 09/21/16 at 15: 00 Docusate Sodium (Colace Liquid Cup) 100 mg BID NGT Last administered on 09:08; Admin Dose 100 MG; Start 09/22/16 at 21:00 IV Flush (NS 10 ml) 10 ml PRN PRN IV IV PROTOCOL; Start 09/25/16 at 12:00 Spironolactone (Aldactone) 50 mg DAILY NGT Last administered on 11/01/16 09:08 ; Admin Dose 50 MG; Start 09/28/16 at 09:00 Lorazepam (Ativan) 0.5 mg Q6H PRN IV AGITATION/ANXIETY Last administered on 08:00; Admin Dose 0.5 MG; Start 10/05/16 at 23:00 Nystatin (Nystatin Susp) 5 ml QID PO Last administered on 11/01/16 09:08; Admin Dose 5 ML; Start 10/19/16 at 13:00 Diphenhydramine HCl (Benadryl) 25 mg Q6H PRN IV PRURITUS Last administered on 10:49; Admin Dose 25 MG; Start 10/23/16 at 10:30 Loratadine (Claritin) 10 mg DAILY PO Last administered on 11/01/16 09:08; Admin Dose 10 MG; Start 10/23/16 at 15:00 Lansoprazole (Prevacid) 30 mg BID@06,18 NGT Last administered on 11/01/16 05: 50; Admin Dose 30 MG; Start 10/23/16 at 18:00 Midodrine 5 mg 5 mg BID@,17 PO Last administered on 11/01/16 09:09; Admin Dose 5 MG; Start 10/26/16 at 17:00 Fluconazole/N/A (Diflucan 400 Mg/ NS (Pmx)/Evac Container) 600 ml @ 100 mls/hr Q24H IVPB Last administered on 11/01/16 09:08; Admin Dose 100 MLS/HR; Start at 09:00 Bumetanide (Bumex) 1 mg DAILY PO Last administered on 11/01/16 09:08; Admin Dose 1 MG; Start 10/31/16 at 09:00 CORINA ESTRELLA NP Nov 01, 2016 15:54
--- NOTE | 2016-11-01 16:59 | PN ---
Date/Time of Note Date/Time of Note DATE: 11/01/16 TIME: 16:58 Assessment/Plan VTE Prophylaxis VTE Prophylaxis Intervention: SCD's Lines/Catheters IV Catheter Type (from Nrsg): PICC Line Central line still needed: Yes Urinary Cath still in place: Yes Reason Cath still needed: other (indicate) (can't move on her own) Assessment/Plan Assessment/Plan 70 yo F with h/o hydrocephalus with previous VPS admitted for sigmoid abscess. hospital stay cb sepsis, colon perforation with multiple abd fluid collections , also recurrent respiratory failure warranting trach, pleural effusion with thora c/b by PTX (chest tube removed) 1. Sigmoid colon abscess 2/2 diverticulitis - s/p sigmoid colectomy with end colostomy (Reid's procedure) and adhesiolysis on 09/21/16 - cont abx and gen surg care 2. Ventilator dependent respiratory failure: sp trach 4. Paroxysmal A. fib: Now in sinus rhythm status post amiodarone. Cardiology on board 5. Acute renal insufficiency: Resolved. 6. Anemia: unclear etio of acute on chronic. 7. Dysphagia Status post PEG tube placement 8. RUE DVT: hold lovenox given anemia 9. hypotension: on midodrine 10. 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 ID following LTAC when ok'd by general surgery Subjective 24 Hr Interval Summary Free Text/Dictation No acute overnight events Exam/Review of Systems Vital Signs Vitals Vital Signs Date Time Temp Pulse Resp B/P Pulse Ox O2 Delivery O2 Flow Rate FiO2 11/01/16 15:33 89 25 99 30 11/01/16 15:01 98.2 99/68 10/31/16 22:00 Mechanical Ventilator Intake and Output 10/31/16 10/31/16 11/01/16 14:59 22:59 06:59 Intake Total 1080 ml 1020 ml 980 ml Output Total 665 ml 385 ml 835 ml Balance 415 ml 635 ml 145 ml Exam trached resp nonlabored no gross abd distension no rashes opens eyes spontaneously Results Result Diagram: 10/31/16 0430 10/31/16 0430 Results 24 hrs Laboratory Tests Test 11/01/16 01:24 Bedside Glucose 103 Medications Medications Current Medications Ondansetron HCl (Zofran Inj) 4 mg Q6H PRN IV NAUSEA AND/OR VOMITING Last administered on 09/26/16 09:23; Admin Dose 4 MG; Start 09/16/16 at 00:30 Acetaminophen (Tylenol Tab) 650 mg Q6H PRN PO PAIN LEVEL 1-3 OR FEVER Last administered on 11/01/16 09:22; Admin Dose 650 MG; Start 09/16/16 at 00:30 Polyethylene Glycol (Miralax) 17 gm DAILY PO Last administered on 11/01/16 09: 08; Admin Dose 17 GM; Start 09/20/16 at 11:00 Acetaminophen/ Hydrocodone Bitart ([place] (5/325)) 1 tab Q4H PRN PO PAIN LEVEL 4 -7 Last administered on 09/28/16 21:20; Admin Dose 1 TAB; Start 09/21/16 at 15: 00 Acetaminophen/ Hydrocodone Bitart ([place] (5/325)) 2 tab Q4H PRN PO PAIN LEVEL 7 -10 Last administered on 10/21/16 08:49; Admin Dose 2 TAB; Start 09/21/16 at 15 :00 Hydromorphone HCl (Dilaudid) 0.5 mg Q2H PRN IV PAIN Last administered on 09:25; Admin Dose 0.5 MG; Start 09/21/16 at 15:00 Hydromorphone HCl (Dilaudid) 1 mg Q2H PRN IV PAIN Last administered on 01:54; Admin Dose 1 MG; Start 09/21/16 at 15:00 Docusate Sodium (Colace) 100 mg BID PRN PO CONSTIPATION; Start 09/21/16 at 15: 00 Docusate Sodium (Colace Liquid Cup) 100 mg BID NGT Last administered on 09:08; Admin Dose 100 MG; Start 09/22/16 at 21:00 IV Flush (NS 10 ml) 10 ml PRN PRN IV IV PROTOCOL; Start 09/25/16 at 12:00 Spironolactone (Aldactone) 50 mg DAILY NGT Last administered on 11/01/16 09:08 ; Admin Dose 50 MG; Start 09/28/16 at 09:00 Lorazepam (Ativan) 0.5 mg Q6H PRN IV AGITATION/ANXIETY Last administered on 08:00; Admin Dose 0.5 MG; Start 10/05/16 at 23:00 Nystatin (Nystatin Susp) 5 ml QID PO Last administered on 11/01/16 13:00; Admin Dose 5 ML; Start 10/19/16 at 13:00 Diphenhydramine HCl (Benadryl) 25 mg Q6H PRN IV PRURITUS Last administered on 10:49; Admin Dose 25 MG; Start 10/23/16 at 10:30 Loratadine (Claritin) 10 mg DAILY PO Last administered on 11/01/16 09:08; Admin Dose 10 MG; Start 10/23/16 at 15:00 Lansoprazole (Prevacid) 30 mg BID@06,18 NGT Last administered on 11/01/16 05: 50; Admin Dose 30 MG; Start 10/23/16 at 18:00 Midodrine 5 mg 5 mg BID@,17 PO Last administered on 11/01/16 09:09; Admin Dose 5 MG; Start 10/26/16 at 17:00 Fluconazole/N/A (Diflucan 400 Mg/ NS (Pmx)/Evac Container) 600 ml @ 100 mls/hr Q24H IVPB Last administered on 11/01/16 09:08; Admin Dose 100 MLS/HR; Start at 09:00 Bumetanide (Bumex) 1 mg DAILY PO Last administered on 11/01/16 09:08; Admin Dose 1 MG; Start 10/31/16 at 09:00 ALEKS RAINEY MD Nov 01, 2016 16:59
--- NOTE | 2016-11-01 21:14 | PN ---
Date/Time of Note Date/Time of Note DATE: 11/01/16 TIME: 21:12 Assessment/Plan Lines/Catheters IV Catheter Type (from Nrsg): PICC Line Shore in Place (from Nrsg): Yes Assessment/Plan Assessment/Plan [facility] Progress Note Date of Service: 11/01/2016 Place of service: [facility] ICU Today's Assessment & Plan: Overall stable and improving. She appears to be doing relatively well outside of the ICU over the last 24 hours. Will likely be able to transfer to LTAC if a bed becomes available in the next 1-2 days. Discussed with patient and with the team. Previous assessment that still applies today: Overall stable but with failure to thrive. Abdomen continues to remain benign. Trach and PEG being used. Drainage of perihepatic fluid collection ongoing. Of great importance is adequate nutrition and I recommended that we continue the feeds through the PEG with a goal of 60 cc/h with guidance from our dietitian colleagues. With above assessment, I recommended the following for today: 1. Continue current management 2. Transfer to LTAC when bed available 3. Please pursue an aggressive course towards weaning patient off the vent 4. Ostomy nurse to remain involved with the patient and assist with ostomy care and wound care Thank you again for your great care of this very pleasant patient and wonderful family. If there are any questions, please feel free to call me at [phone]. Nature of presenting problem: High severity Please note that, given the extensive number of diagnoses or management options , the extensive amount and/or complexity of data needed to be reviewed, and I risk of complications and/or morbidity or mortality, this qualifies as high complexity type of decision-making. Disclaimer: Inadvertent spelling and grammatical errors are likely due to EHR/ dictation software use and do not reflect on the quality of delivered patient care. Also, please note that the electronic time recorded on this node does not necessarily reflect the actual time of the visit. 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 S/p IR drainage 09/09/16 with removal of 20 cc pus and placement of a 10 Fr. pigtail catheter at [facility]. D/c home 09/12/16. Re-presented to [place] ED 09/15/16 after being diverted from [facility] (due to internal disaster diversion) where CT was done showing adequate placement of the percutaneous drain near the sigmoid colon and decompressed sigmoid colon abscess, no obvious free air or significant spillage of stool in the abdominal cavity, and incidental finding of tail of the SANITATION TECHNICIAN shunt in the pelvis (new from right upper quadrant position of the same drain on the CT scan at [facility]). Transfer to [facility] 09/15/2016 for further cares. S/p upsizing of drain to 12 Fr pigtail on 09/17/16 (communication with colon demonstrated; no obvious free communication to rest of peritoneal space). Patient decompensated in the early hours of the morning on 09/21/2016 and had to be transferred to the intensive care unit with need for endotracheal tube intubation, central line placement, and resuscitation for treatment of shock with lactic acidosis and evidence of peritonitis and free air on the new chest, abdomen, and pelvis CT scan. S/p a rather challenging sigmoid colectomy with performance of end colostomy (Reid's procedure), takedown of splenic flexure of the colon, lysis of adhesions (60 minutes), and abdominal lavage at [facility] on 09/21/16; diagnosis of colon ischemia (distal transverse colon and descending colon) during reentry through recent laparotomy incision with exploration of abdominal cavity, takedown of colostomy, completion left hemicolectomy with resection of distal transverse colon, lysis of adhesions, abdominal lavage, performance of an end colostomy [facility] 09/24/16. Extubated post op evening of 09/25/16. Decompensation with intubation and restart of pressors . Right-sided pneumothorax after drainage of right pleural effusion requiring chest tube placement 09/30/2016. Extubated 10/03/2016. Decompensation with reintubation 10/06/16. Tracheostomy and PEG placed. Perihepatic fluid collections drained 10/13/2016. Cryptococcal antigen found in the urine 2016. Antifungal therapy started. S/p new perc drain perihepatic 10/23/16. Transferred out of the ICU to telemetry on 11/01/2016. Comorbidities: 1. Perforated sigmoid colon (see below) 2. Status post ventriculoperitoneal shunt placement. 3. Status post prior hysterectomy and bilateral salpingo-oophorectomy through Pfannenstiel incision 4. S/p IR drainage 09/09/16 with removal of 20 cc pus and placement of a 10 Fr. pigtail catheter at [facility]. 5. Readmission to [facility] 09/15/16 with upsizing of drain to 12 Fr pigtail on (communication with colon demonstrated; no obvious free communication to rest of peritoneal space). Septic shock with multiorgan failure 09/21/2016 requiring ICU admission with intubation and pressors. 6. S/p a rather challenging sigmoid colectomy with performance of end colostomy (Reid's procedure), takedown of splenic flexure of the colon, lysis of adhesions (60 minutes), and abdominal lavage at [facility] on 09/21/16 7. Colon ischemia (distal transverse colon and descending colon) 8. S/p reentry through recent laparotomy incision with exploration of abdominal cavity, takedown of colostomy, completion left hemicolectomy with resection of distal transverse colon, lysis of adhesions, abdominal lavage, performance of an end colostomy [facility] 09/24/16 9. Stage I/II decubitus pressure ulcers (10/11/2016 [facility] ICU) Subjective: Remain on a ventilator with tracheostomy without major events. Awake today and much more communicative. No major noted complaints regarding abdominal pain. Appears much calmer. Objective: Vitals: See below I's & O's: See below Exam: GENERAL: On exam, the patient was lying in bed and appeared to be breathing comfortably on the vent. No obvious acute distress. Appears less emaciated. ABDOMEN: Soft, nontender and nondistended. Incision dressings are clean, dry and intact without any obvious evidence of underlying erythema, edema, discharge , or hernia. There are no peritoneal signs or guarding. Ostomy appears to be viable and productive with stool and air in the bag. Skin around the ostomy is improved. Perihepatic drains showing pus and minimal ss output. No bile. SKIN: Skin appears to be pink and feels warm to touch. NEUROLOGIC: Patient is more awake today and more interactive; follows simple commands. Appeared to attempt to answer back and did answer yes/no questions. Remains on the ventilator with tracheostomy tube. Labs: See below Exam/Review of Systems Vital Signs Vitals Vital Signs Date Time Temp Pulse Resp B/P Pulse Ox O2 Delivery O2 Flow Rate FiO2 11/01/16 21:05 85 11/01/16 20:00 30 11/01/16 19:52 20 100 11/01/16 19:38 98.4 129/67 10/31/16 22:00 Mechanical Ventilator Intake and Output 10/31/16 10/31/16 11/01/16 15:00 23:00 07:00 Intake Total 1180 ml 920 ml 920 ml Output Total 650 ml 700 ml 450 ml Balance 530 ml 220 ml 470 ml Results Result Diagram: 10/31/16 0430 10/31/16 0430 ALEXSANDER DUARTE M.D. Nov 01, 2016 21:14
[2016-11-02] VITALS (21 sets, daily range): BP systolic 110–132; BP diastolic 60–90; PULSE 89–111; RESP 15–28
[2016-11-02] MEDS: ALBUTEROL 18 GM INHALER INH SCH ×6 (01:00→20:40)
[2016-11-02] MEDS: IPRATROPIUM (HFA) 12.9 GM INHALER INH SCH ×6 (01:00→20:40)
[2016-11-02] MEDS: LANSOPRAZOLE 30 MG CAP NGT SCH ×2 (06:00→18:45)
[2016-11-02 06:34] LABS: BASOPHILS % 0.4 % (0.0-2.0); EOSINOPHILS # 0.3 10^3/ul (0.0-0.5); EOSINOPHILS % 3.2 % (0.0-7.0); HEMATOCRIT 22.7 % (37.0-47.0); HEMOGLOBIN 7.5 g/dl (12.0-16.0); LYMPHOCYTES % 10.9 % (15.0-51.0); MEAN CORPUSCULAR HEMOGLOBIN 29.6 pg (29.0-33.0); MEAN CORPUSCULAR VOLUME 89.7 fl (82.0-101.0); MEAN PLATELET VOLUME 10.5 fl (7.4-10.4); MONOCYTE # 0.9 10^3/ul (0.3-0.9); MONOCYTES % 9.2 % (0.0-11.0); PLATELET COUNT 307 10^3/UL (140-415); RED BLOOD COUNT 2.53 10^6/ul (4.20-5.40); RED CELL DISTRIBUTION WIDTH 17.4 % (11.5-14.5); WHITE BLOOD COUNT 9.4 10^3/ul (4.8-10.8)
[2016-11-02 07:07] LABS: CALCIUM 7.4 mg/dl (8.4-10.2); CREATININE 0.4 mg/dl (0.44-1.00); MAGNESIUM 2.1 mg/dl (1.7-2.5); PHOSPHORUS 4.8 mg/dl (2.5-4.9); POTASSIUM 3.5 mmol/L (3.5-5.1)
--- NOTE | 2016-11-02 08:50 | PN ---
DATE: 11/02/2016 SUBJECTIVE DATA: Subjectively, the Patient is stable. No events overnight. No fevers, chills, nausea, vomiting. OBJECTIVE DATA: VITAL SIGNS: Blood pressure is 120/67, respirations 18, pulse 97, temperature 99. HEENT: Head is normocephalic. NECK: Supple. HEART: Regular rate. LUNGS: Diminished breath sounds base. ABDOMEN: Soft, positive colostomy. EXTREMITIES: No clubbing, cyanosis. Positive edema. DERMATOLOGIC: No rashes. MUSCULOSKELETAL: No joint effusion. NEUROLOGIC: Unchanged exam. MEDICATIONS: Reviewed. LABORATORY AND DIAGNOSTIC DATA: White count 9.5, hemoglobin 10.5, hematocrit 22.7, platelet count is 307,000. Sodium 137, potassium 3.5, BUN 20, creatinine 0.40. ASSESSMENT AND PLAN: 1. Nonoliguric acute kidney injury. Etiology secondary to hemodynamics. The patient's renal function stabilized. Continue current treatment plan. Supportive care. Renally dose all meds. 2. Hypokalemia. Continue to monitor and replete. 3. Hypomagnesemia. Continue to monitor and replete. 4. Volume overload with anasarca, etiology secondary to third- spacing. Continue current diuretic regimen, being managed by Cardiology. 5. Sepsis, status post-shock. The patient is completing antibiotic course. 6. Mineral bone disorder. Monitor calcium and phosphorus levels. 7. Anemia. Monitor hemoglobin and hematocrit levels. 8. Ventilatory-dependent respiratory failure. Ventilator settings reviewed. Arterial blood gases reviewed. 9. Perforated viscus. Status post-colectomy with colostomy bag. 10. Dysphagia. Status post-PEG tube feeding. 11. Paroxysmal atrial fibrillation. Currently in sinus rhythm. Continue to monitor. Dictated By: Agustin Sanchez DO /rhina/tegan /Document#: [id number]
[2016-11-02] MEDS: SPIRONOLACTONE 50 MG TAB NGT SCH (09:00)
[2016-11-02] MEDS: NYSTATIN SUSP 5 ML CUP PO SCH ×4 (10:06→20:34)
[2016-11-02] MEDS: DOCUSATE SODIUM 10 MG/ML (10ML CUP) NGT SCH ×2 (10:06→20:34)
[2016-11-02] MEDS: POLYETHYLENE GLYCOL 17 GM PACKET PO SCH (10:06)
[2016-11-02] MEDS: FLUCONAZOLE IVPB SCH ×2 (10:07)
[2016-11-02] MEDS: SODIUM CHLORIDE IVPB SCH ×2 (10:07)
[2016-11-02] MEDS: BUMETANIDE 1 MG TAB PO SCH (10:07)
[2016-11-02] MEDS: HYDROCODONE/APAP (5/325) TAB PO PRN (10:07)
[2016-11-02] MEDS: MIDODRINE 5 MG TAB PO SCH ×2 (10:08→18:45)
[2016-11-02] MEDS: LORATADINE 10 MG TAB PO SCH (10:08)
[2016-11-02] MEDS: BALSAM PERU/CASTOR OIL 60 GM TUBE TOP SCH (10:09)
--- NOTE | 2016-11-02 10:23 | CONS ---
Date/Time of Note Date/Time of Note DATE: 11/02/16 TIME: 10:02 Assessment/Plan Assessment/Plan Chief Complaint/Hosp Course ID PROGRESS NOTE CURRENT ABX => Diflucan 24H INTERVAL SUMMARY * Awake, alert, Stable on the Vent, no fevers w/TMax 99.3. WBC 9.4, ongoing severe debility w/failure to thrive * Chart reviewed: DC [facility] EXAM: 70 yo F ->responsive, moving extremities HEENT: Unremarkable Neck: (+)Trach-> Vent Heart: S1, S2 CXT: chest rise symmetrical breath sounds clear, diminished basis. ABD: Soft, drain, Colostomy Extremities without cyanosis, REUEXT edema ID ASSESSMENT 70 yo F w/PMHx ICH and EXPLOSIVE MAN shunt admit with: 1. s/p Sepsis w/shock , s/p lactic acidosis => RESOLVED * (+)Leukocytosis=> RESOLVED * (+)Fevers >101.5 10/07=> RESOLVED 2. PNA => Opportunistic (present on admission) + VAP * 10/08/16 CT CHEST: Multiple bilateral cavitary nodules...similar to the prior CT :DDx septic emboli, atypical (fungal, tuberculosis) infectious process, and possible neoplasm. * 1. Cryptococcal PNA -> present on admission with sputum Cx growing Mold w/(+) Cryptococcal antigen serology =>Per Dr. Sevilla/Chantel possible inhaled [place] Droppings source w/(-) CSF fluid * 2. 10/02/ ETT aspirate (+) MOLD + yeast ->DDx contaminant, submit new sample * 10/07 ETT aspirate (+) MOLD + GNR ->(+) Cupriavidus pauculus, Previously known as Ralstonia paucula-> s/p ABX * AFB SMEAR (-) x 3 Final ACID FAST BACILLI NONE SEEN 3. Intra-ABD abscess * s/p 10/25 8.5-Kyr[place] drain within a posterior perihepatic fluid collection with aspiration of 40 cc of purulent fluid sent for culture and sensitivity. * s/p 10/13/16 CT guided drainage * s/p Perforated sigmoid colon w/abscess: POD#-> s/p 09/21/16 Sigmoid colectomy with performance of end colostomy (Reid's procedure), w/Lysis of adhesions. * s/p 09/21/16 Externalization of EXPLOSIVE MAN shunt. INDICATION: Possible EXPLOSIVE MAN shunt infection, ABD abscess * MICRO: 09/23/16 BODY FLUID CULTURE Final -> s/p ABX Organism 1 ENTEROCOCCUS SPECIES Organism 2 COAGULASE NEGATIVE STAPH Organism 3 ALPHA HEMOLYTIC STREP SPP . VIRIDANS GROUP 4. Acute respiratory failure -> orally RE-intubated 10/06 -> s/p Trach 5. CHF w/elevated BNP => (+)Anasarca w/Pleural effusions s/p CT drain 09/30 (-) Fungal organism, (-)AFB 6. Dysphagia-> s/p peg 7. Failure to thrive (-)MRSA Nares screen INVASIVES: PICC (09/25/16) , Trach, VPS, FC, CXT-Tube; PEG ABX ALLERGY: PCN, MERREM CURRENT ABX => Diflucan ID RECOMMENDATIONS 1. Continue high dose Diflucan 2. May TNS on current ABX Diflucan 1200 mg daily for indefinite time . Problems: Consultation Date/Type/Reason Admit Date/Time Sep 15, 2016 at 21:35 Initial Consult Date 09/21/16 Type of Consultation: ID Exam/Review of Systems Vital Signs Vitals Vital Signs Date Time Temp Pulse Resp B/P Pulse Ox O2 Delivery O2 Flow Rate FiO2 11/02/16 08:23 103 11/02/16 07:30 99.1 18 123/67 96 11/02/16 05:08 30 11/02/16 04:00 Mechanical Ventilator Intake and Output 11/01/16 11/01/16 11/02/16 15:00 23:00 07:00 Intake Total 1520 ml 920 ml Output Total 1250 ml 580 ml Balance 270 ml 340 ml Results Result Diagram: 11/02/16 0526 11/02/16 0526 Results 24 hrs Laboratory Tests Test 11/02/16 05:26 White Blood Count 9.4 Red Blood Count 2.53 L Hemoglobin 7.5 L Hematocrit 22.7 L Mean Corpuscular Volume 89.7 Mean Corpuscular Hemoglobin 29.6 Mean Corpuscular Hemoglobin Concent 33.0 Red Cell Distribution Width 17.4 H Platelet Count 307 Mean Platelet Volume 10.5 H Neutrophils % 75.0 Lymphocytes % 10.9 L Monocytes % 9.2 Eosinophils % 3.2 Basophils % 0.4 Nucleated Red Blood Cells % 0.0 Neutrophils # (Manual) 7.0 Lymphocytes # 1.0 Monocytes # 0.9 Eosinophils # 0.3 Basophils # 0.0 Nucleated Red Blood Cells # 0.0 Sodium Level 137 Potassium Level 3.5 Chloride Level 104 Carbon Dioxide Level 28 Anion Gap 9 Blood Urea Nitrogen 20 Creatinine 0.40 L Glucose Level 102 Calcium Level 7.4 L Phosphorus Level 4.8 Magnesium Level 2.1 Medications Medications Current Medications Ondansetron HCl (Zofran Inj) 4 mg Q6H PRN IV NAUSEA AND/OR VOMITING Last administered on 09/26/16 09:23; Admin Dose 4 MG; Start 09/16/16 at 00:30 Acetaminophen (Tylenol Tab) 650 mg Q6H PRN PO PAIN LEVEL 1-3 OR FEVER Last administered on 11/01/16 09:22; Admin Dose 650 MG; Start 09/16/16 at 00:30 Polyethylene Glycol (Miralax) 17 gm DAILY PO Last administered on 11/01/16 09: 08; Admin Dose 17 GM; Start 09/20/16 at 11:00 Acetaminophen/ Hydrocodone Bitart ([place] (5/325)) 1 tab Q4H PRN PO PAIN LEVEL 4 -7 Last administered on 09/28/16 21:20; Admin Dose 1 TAB; Start 09/21/16 at 15: 00 Acetaminophen/ Hydrocodone Bitart ([place] (5/325)) 2 tab Q4H PRN PO PAIN LEVEL 7 -10 Last administered on 10/21/16 08:49; Admin Dose 2 TAB; Start 09/21/16 at 15 :00 Hydromorphone HCl (Dilaudid) 0.5 mg Q2H PRN IV PAIN Last administered on 09:25; Admin Dose 0.5 MG; Start 09/21/16 at 15:00 Hydromorphone HCl (Dilaudid) 1 mg Q2H PRN IV PAIN Last administered on 01:54; Admin Dose 1 MG; Start 09/21/16 at 15:00 Docusate Sodium (Colace) 100 mg BID PRN PO CONSTIPATION; Start 09/21/16 at 15: 00 Docusate Sodium (Colace Liquid Cup) 100 mg BID NGT Last administered on 21:11; Admin Dose 100 MG; Start 09/22/16 at 21:00 IV Flush (NS 10 ml) 10 ml PRN PRN IV IV PROTOCOL; Start 09/25/16 at 12:00 Spironolactone (Aldactone) 50 mg DAILY NGT Last administered on 11/01/16 09:08 ; Admin Dose 50 MG; Start 09/28/16 at 09:00 Lorazepam (Ativan) 0.5 mg Q6H PRN IV AGITATION/ANXIETY Last administered on 08:00; Admin Dose 0.5 MG; Start 10/05/16 at 23:00 Nystatin (Nystatin Susp) 5 ml QID PO Last administered on 11/01/16 21:11; Admin Dose 5 ML; Start 10/19/16 at 13:00 Diphenhydramine HCl (Benadryl) 25 mg Q6H PRN IV PRURITUS Last administered on 10:49; Admin Dose 25 MG; Start 10/23/16 at 10:30 Loratadine (Claritin) 10 mg DAILY PO Last administered on 11/01/16 09:08; Admin Dose 10 MG; Start 10/23/16 at 15:00 Lansoprazole (Prevacid) 30 mg BID@06,18 NGT Last administered on 11/02/16 06: 00; Admin Dose 30 MG; Start 10/23/16 at 18:00 Midodrine 5 mg 5 mg BID@,17 PO Last administered on 11/01/16 18:45; Admin Dose 5 MG; Start 10/26/16 at 17:00 Fluconazole/N/A (Diflucan 400 Mg/ NS (Pmx)/Evac Container) 600 ml @ 100 mls/hr Q24H IVPB Last administered on 11/01/16 09:08; Admin Dose 100 MLS/HR; Start at 09:00 Bumetanide (Bumex) 1 mg DAILY PO Last administered on 11/01/16 09:08; Admin Dose 1 MG; Start 10/31/16 at 09:00 DONNA HERNANDEZ NP Nov 02, 2016 10:14
--- NOTE | 2016-11-02 13:14 | PN ---
Date/Time of Note Date/Time of Note DATE: 11/02/16 TIME: 13:13 Assessment/Plan Lines/Catheters IV Catheter Type (from Nrsg): PICC Line Shore in Place (from Nrsg): Yes Assessment/Plan Chief Complaint/Hosp Course This is a 70-year-old female admitted with a perforated colon and contained abscess underwent a drainage procedure on further colonic procedures patient is currently in the intensive care unit unable to come off the ventilator secondary to multiple medical problems Patient was extubated and had to be input intubated again has been treated for septic shock lactic acidosis peritonitis currently has an end colostomy Helio pouch and has undergone colon resection patient also has a right-sided chest tube for a pneumothorax She was reintubated again Status post tracheostomy We will continue pulmonary toilet Trach care Right upper extremity DVT, patient not a candidate for anticoagulation due to anemia and thrombocytopenia. Vent support Pulmonary toilet Patient DNR supp care Problems: Subjective 24 Hr Interval Summary Constitutional: improved Pain Control: mild Exam/Review of Systems Vital Signs Vitals Vital Signs Date Time Temp Pulse Resp B/P Pulse Ox O2 Delivery O2 Flow Rate FiO2 11/02/16 12:13 111 11/02/16 11:39 99.3 20 122/60 95 11/02/16 11:20 30 11/02/16 04:00 Mechanical Ventilator Intake and Output 11/01/16 11/01/16 11/02/16 15:00 23:00 07:00 Intake Total 1520 ml 920 ml Output Total 1250 ml 580 ml Balance 270 ml 340 ml Exam Respiratory: clear to auscultation, normal air movement Cardiovascular: nl pulses, regular rate and rhythm Gastrointestinal: nl liver, spleen, non-tender, soft Results Result Diagram: 11/02/16 0526 11/02/16 0526 GIL PINEDA MD Nov 02, 2016 13:14
--- NOTE | 2016-11-02 16:15 | PN ---
Date/Time of Note Date/Time of Note DATE: 11/02/16 TIME: 16:14 Assessment/Plan VTE Prophylaxis VTE Prophylaxis Intervention: SCD's Lines/Catheters IV Catheter Type (from Nrsg): PICC Line Central line still needed: Yes Urinary Cath still in place: Yes Reason Cath still needed: pres ulcer contaminated by urine Assessment/Plan Assessment/Plan 70 yo F with h/o hydrocephalus with previous VPS admitted for sigmoid abscess. hospital stay cb sepsis, colon perforation with multiple abd fluid collections , also recurrent respiratory failure warranting trach, pleural effusion with thora c/b by PTX (chest tube removed) 1. Sigmoid colon abscess 2/2 diverticulitis - s/p sigmoid colectomy with end colostomy (Reid's procedure) and adhesiolysis on 09/21/16 - cont abx and gen surg care 2. Ventilator dependent respiratory failure: sp trach 4. Paroxysmal A. fib: Now in sinus rhythm status post amiodarone. Cardiology on board 5. Acute renal insufficiency: Resolved. 6. Anemia: unclear etio of acute on chronic. 7. Dysphagia Status post PEG tube placement 8. RUE DVT: hold lovenox given anemia 9. hypotension: on midodrine 10. 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 ID following LTAC when ok'd by general surgery Subjective 24 Hr Interval Summary Free Text/Dictation no change Exam/Review of Systems Vital Signs Vitals Vital Signs Date Time Temp Pulse Resp B/P Pulse Ox O2 Delivery O2 Flow Rate FiO2 11/02/16 16:10 92 11/02/16 15:15 99.7 22 110/60 95 11/02/16 15:00 30 11/02/16 04:00 Mechanical Ventilator Intake and Output 11/01/16 11/01/16 11/02/16 15:00 23:00 07:00 Intake Total 1520 ml 920 ml Output Total 1250 ml 580 ml Balance 270 ml 340 ml Exam nad trached resp nonlabored no gross abd distension roca in place Results Result Diagram: 11/02/16 0511/02/16 05 Results 24 hrs Laboratory Tests Test 11/02/16 05:26 White Blood Count 9.4 Red Blood Count 2.53 L Hemoglobin 7.5 L Hematocrit 22.7 L Mean Corpuscular Volume 89.7 Mean Corpuscular Hemoglobin 29.6 Mean Corpuscular Hemoglobin Concent 33.0 Red Cell Distribution Width 17.4 H Platelet Count 307 Mean Platelet Volume 10.5 H Neutrophils % 75.0 Lymphocytes % 10.9 L Monocytes % 9.2 Eosinophils % 3.2 Basophils % 0.4 Nucleated Red Blood Cells % 0.0 Neutrophils # (Manual) 7.0 Lymphocytes # 1.0 Monocytes # 0.9 Eosinophils # 0.3 Basophils # 0.0 Nucleated Red Blood Cells # 0.0 Sodium Level 137 Potassium Level 3.5 Chloride Level 104 Carbon Dioxide Level 28 Anion Gap 9 Blood Urea Nitrogen 20 Creatinine 0.40 L Glucose Level 102 Calcium Level 7.4 L Phosphorus Level 4.8 Magnesium Level 2.1 Medications Medications Current Medications Ondansetron HCl (Zofran Inj) 4 mg Q6H PRN IV NAUSEA AND/OR VOMITING Last administered on 09/26/16 09:23; Admin Dose 4 MG; Start 09/16/16 at 00:30 Acetaminophen (Tylenol Tab) 650 mg Q6H PRN PO PAIN LEVEL 1-3 OR FEVER Last administered on 11/01/16 09:22; Admin Dose 650 MG; Start 09/16/16 at 00:30 Polyethylene Glycol (Miralax) 17 gm DAILY PO Last administered on 11/02/16 10: 06; Admin Dose 17 GM; Start 09/20/16 at 11:00 Acetaminophen/ Hydrocodone Bitart ([place] (5/325)) 1 tab Q4H PRN PO PAIN LEVEL 4 -7 Last administered on 09/28/16 21:20; Admin Dose 1 TAB; Start 09/21/16 at 15: 00 Acetaminophen/ Hydrocodone Bitart ([place] (5/325)) 2 tab Q4H PRN PO PAIN LEVEL 7 -10 Last administered on 11/02/16 10:07; Admin Dose 2 TAB; Start 09/21/16 at 15 :00 Hydromorphone HCl (Dilaudid) 0.5 mg Q2H PRN IV PAIN Last administered on 09:25; Admin Dose 0.5 MG; Start 09/21/16 at 15:00 Hydromorphone HCl (Dilaudid) 1 mg Q2H PRN IV PAIN Last administered on 01:54; Admin Dose 1 MG; Start 09/21/16 at 15:00 Docusate Sodium (Colace) 100 mg BID PRN PO CONSTIPATION; Start 09/21/16 at 15: 00 Docusate Sodium (Colace Liquid Cup) 100 mg BID NGT Last administered on 10:06; Admin Dose 100 MG; Start 09/22/16 at 21:00 IV Flush (NS 10 ml) 10 ml PRN PRN IV IV PROTOCOL; Start 09/25/16 at 12:00 Spironolactone (Aldactone) 50 mg DAILY NGT Last administered on 11/02/16 09:00 ; Admin Dose 50 MG; Start 09/28/16 at 09:00 Lorazepam (Ativan) 0.5 mg Q6H PRN IV AGITATION/ANXIETY Last administered on 08:00; Admin Dose 0.5 MG; Start 10/05/16 at 23:00 Nystatin (Nystatin Susp) 5 ml QID PO Last administered on 11/02/16 13:09; Admin Dose 5 ML; Start 10/19/16 at 13:00 Diphenhydramine HCl (Benadryl) 25 mg Q6H PRN IV PRURITUS Last administered on 10:49; Admin Dose 25 MG; Start 10/23/16 at 10:30 Loratadine (Claritin) 10 mg DAILY PO Last administered on 11/02/16 10:08; Admin Dose 10 MG; Start 10/23/16 at 15:00 Lansoprazole (Prevacid) 30 mg BID@06,18 NGT Last administered on 11/02/16 06: 00; Admin Dose 30 MG; Start 10/23/16 at 18:00 Midodrine 5 mg 5 mg BID@,17 PO Last administered on 11/02/16 10:08; Admin Dose 5 MG; Start 10/26/16 at 17:00 Fluconazole/N/A (Diflucan 400 Mg/ NS (Pmx)/Evac Container) 600 ml @ 100 mls/hr Q24H IVPB Last administered on 11/02/16 10:07; Admin Dose 100 MLS/HR; Start at 09:00 Bumetanide (Bumex) 1 mg DAILY PO Last administered on 11/02/16 10:07; Admin Dose 1 MG; Start 10/31/16 at 09:00 ALEKS RAINEY MD Nov 02, 2016 16:15
--- NOTE | 2016-11-02 18:21 | CONS ---
Date/Time of Note Date/Time of Note DATE: 11/02/16 TIME: 18:19 Consult Date/Type/Reason Admit Date/Time Sep 15, 2016 at 21:35 Initial Consult Date 10/09/16 Type of Consultation: Pulm Subjective no events overnight Objective Vital Signs Date Time Temp Pulse Resp B/P Pulse Ox O2 Delivery O2 Flow Rate FiO2 11/02/16 17:00 96 20 98 30 11/02/16 15:15 99.7 110/60 11/02/16 04:00 Mechanical Ventilator Intake and Output 11/01/16 11/01/16 11/02/16 15:00 23:00 07:00 Intake Total 1520 ml 920 ml Output Total 1250 ml 580 ml Balance 270 ml 340 ml Exam HEENT: Neck supple; no JVD; no LAD; + trach CVS: RRR, S1 and S2 CHEST: Clear ABD: Distended , NT, + BS EXT: No c/c/e Results/Medications Result Diagram: 11/02/16 0526 11/02/16 0526 Results 24 hrs Laboratory Tests Test 11/02/16 05:26 White Blood Count 9.4 Red Blood Count 2.53 L Hemoglobin 7.5 L Hematocrit 22.7 L Mean Corpuscular Volume 89.7 Mean Corpuscular Hemoglobin 29.6 Mean Corpuscular Hemoglobin Concent 33.0 Red Cell Distribution Width 17.4 H Platelet Count 307 Mean Platelet Volume 10.5 H Neutrophils % 75.0 Lymphocytes % 10.9 L Monocytes % 9.2 Eosinophils % 3.2 Basophils % 0.4 Nucleated Red Blood Cells % 0.0 Neutrophils # (Manual) 7.0 Lymphocytes # 1.0 Monocytes # 0.9 Eosinophils # 0.3 Basophils # 0.0 Nucleated Red Blood Cells # 0.0 Sodium Level 137 Potassium Level 3.5 Chloride Level 104 Carbon Dioxide Level 28 Anion Gap 9 Blood Urea Nitrogen 20 Creatinine 0.40 L Glucose Level 102 Calcium Level 7.4 L Phosphorus Level 4.8 Magnesium Level 2.1 Medications Current Medications Ondansetron HCl (Zofran Inj) 4 mg Q6H PRN IV NAUSEA AND/OR VOMITING Last administered on 09/26/16t 09:23; Admin Dose 4 MG; Start 09/16/16 at 00:30 Acetaminophen (Tylenol Tab) 650 mg Q6H PRN PO PAIN LEVEL 1-3 OR FEVER Last administered on 11/01/16 09:22; Admin Dose 650 MG; Start 09/16/16 at 00:30 Polyethylene Glycol (Miralax) 17 gm DAILY PO Last administered on 11/02/16 10: 06; Admin Dose 17 GM; Start 09/20/16 at 11:00 Acetaminophen/ Hydrocodone Bitart ([place] (5/325)) 1 tab Q4H PRN PO PAIN LEVEL 4 -7 Last administered on 09/28/16 21:20; Admin Dose 1 TAB; Start 09/21/16 at 15: 00 Acetaminophen/ Hydrocodone Bitart ([place] (5/325)) 2 tab Q4H PRN PO PAIN LEVEL 7 -10 Last administered on 11/02/16 10:07; Admin Dose 2 TAB; Start 09/21/16 at 15 :00 Hydromorphone HCl (Dilaudid) 0.5 mg Q2H PRN IV PAIN Last administered on 09:25; Admin Dose 0.5 MG; Start 09/21/16 at 15:00 Hydromorphone HCl (Dilaudid) 1 mg Q2H PRN IV PAIN Last administered on 01:54; Admin Dose 1 MG; Start 09/21/16 at 15:00 Docusate Sodium (Colace) 100 mg BID PRN PO CONSTIPATION; Start 09/21/16 at 15: 00 Docusate Sodium (Colace Liquid Cup) 100 mg BID NGT Last administered on 10:06; Admin Dose 100 MG; Start 09/22/16 at 21:00 IV Flush (NS 10 ml) 10 ml PRN PRN IV IV PROTOCOL; Start 09/25/16 at 12:00 Spironolactone (Aldactone) 50 mg DAILY NGT Last administered on 11/02/16 09:00 ; Admin Dose 50 MG; Start 09/28/16 at 09:00 Lorazepam (Ativan) 0.5 mg Q6H PRN IV AGITATION/ANXIETY Last administered on 08:00; Admin Dose 0.5 MG; Start 10/05/16 at 23:00 Nystatin (Nystatin Susp) 5 ml QID PO Last administered on 11/02/16 13:09; Admin Dose 5 ML; Start 10/19/16 at 13:00 Diphenhydramine HCl (Benadryl) 25 mg Q6H PRN IV PRURITUS Last administered on 10:49; Admin Dose 25 MG; Start 10/23/16 at 10:30 Loratadine (Claritin) 10 mg DAILY PO Last administered on 11/02/16 10:08; Admin Dose 10 MG; Start 10/23/16 at 15:00 Lansoprazole (Prevacid) 30 mg BID@06,18 NGT Last administered on 11/02/16 06: 00; Admin Dose 30 MG; Start 10/23/16 at 18:00 Midodrine 5 mg 5 mg BID@,17 PO Last administered on 11/02/16 10:08; Admin Dose 5 MG; Start 10/26/16 at 17:00 Fluconazole/N/A (Diflucan 400 Mg/ NS (Pmx)/Evac Container) 600 ml @ 100 mls/hr Q24H IVPB Last administered on 11/02/16 10:07; Admin Dose 100 MLS/HR; Start at 09:00 Bumetanide (Bumex) 1 mg DAILY PO Last administered on 11/02/16 10:07; Admin Dose 1 MG; Start 10/31/16 at 09:00 Assessment/Plan Additional Assessment/Plan IMP: 1. s/p Septic Shock 2. Intra-abdominal abscess 3. Disseminated crypto 4. VDRF 5. Anemia 6. s/p PTX RECS: 1. Vent support 2. Optimization of nutrition 3. am labs HANS VELÁZQUEZ MD Nov 02, 2016 18:21
--- NOTE | 2016-11-02 19:18 | PN ---
Date/Time of Note Date/Time of Note DATE: 11/02/16 TIME: 19:16 Assessment/Plan Lines/Catheters IV Catheter Type (from Nrsg): PICC Line Shore in Place (from Nrsg): Yes Assessment/Plan Assessment/Plan [facility] Progress Note Date of Service: 11/02/2016 Place of service: [facility] ICU Today's Assessment & Plan: Overall stable and improving. She appears to be doing relatively well outside of the ICU over the last 48 hours. Will be able to transfer to LTAC once a bed becomes available. Skin peeling, likely from less swelling.Discussed with patient and with the team. Previous assessment that still applies today: Overall stable but with failure to thrive. Abdomen continues to remain benign. Trach and PEG being used. Drainage of perihepatic fluid collection ongoing. Of great importance is adequate nutrition and I recommended that we continue the feeds through the PEG with a goal of 60 cc/h with guidance from our dietitian colleagues. With above assessment, I recommended the following for today: 1. Continue current management 2. Transfer to LTAC when bed available 3. Please pursue an aggressive course towards weaning patient off the vent 4. Ostomy nurse to remain involved with the patient and assist with ostomy care and wound care Thank you again for your great care of this very pleasant patient and wonderful family. If there are any questions, please feel free to call me at [phone]. Nature of presenting problem: High severity Please note that, given the extensive number of diagnoses or management options , the extensive amount and/or complexity of data needed to be reviewed, and I risk of complications and/or morbidity or mortality, this qualifies as high complexity type of decision-making. Disclaimer: Inadvertent spelling and grammatical errors are likely due to EHR/ dictation software use and do not reflect on the quality of delivered patient care. Also, please note that the electronic time recorded on this node does not necessarily reflect the actual time of the visit. Updated Clinical Summary: A very pleasant 70-year-old lady without significant known past medical history other than a [employer] shunt placement many years ago which she did not remember or report, presenting with what appears to be a sigmoid colon abscess or pericolonic abscess, which seemed to be a complication of diverticulitis. S/p IR drainage 09/09/16 with removal of 20 cc pus and placement of a 10 Fr. pigtail catheter at [facility]. D/c home 09/12/16. Re-presented to [place] [facility] 09/15/16 after being diverted from [facility] (due to internal disaster diversion) where CT was done showing adequate placement of the percutaneous drain near the sigmoid colon and decompressed sigmoid colon abscess, no obvious free air or significant spillage of stool in the abdominal cavity, and incidental finding of tail of the [employer] shunt in the pelvis (new from right upper quadrant position of the same drain on the CT scan at [facility]). Transfer to [facility] 09/15/2016 for further cares. S/p upsizing of drain to 12 Fr pigtail on 09/17/16 (communication with colon demonstrated; no obvious free communication to rest of peritoneal space). Patient decompensated in the early hours of the morning on 09/21/2016 and had to be transferred to the intensive care unit with need for endotracheal tube intubation, central line placement, and resuscitation for treatment of shock with lactic acidosis and evidence of peritonitis and free air on the new chest, abdomen, and pelvis CT scan. S/p a rather challenging sigmoid colectomy with performance of end colostomy (Reid's procedure), takedown of splenic flexure of the colon, lysis of adhesions (60 minutes), and abdominal lavage at [facility] on 09/21/16; diagnosis of colon ischemia (distal transverse colon and descending colon) during reentry through recent laparotomy incision with exploration of abdominal cavity, takedown of colostomy, completion left hemicolectomy with resection of distal transverse colon, lysis of adhesions, abdominal lavage, performance of an end colostomy [facility] 09/24/16. Extubated post op evening of 09/25/16. Decompensation with intubation and restart of pressors . Right-sided pneumothorax after drainage of right pleural effusion requiring chest tube placement 09/30/2016. Extubated 10/03/2016. Decompensation with reintubation 10/06/16. Tracheostomy and PEG placed. Perihepatic fluid collections drained 10/13/2016. Cryptococcal antigen found in the urine 2016. Antifungal therapy started. S/p new perc drain perihepatic 10/23/16. Transferred out of the ICU to telemetry on 11/01/2016. Comorbidities: 1. Perforated sigmoid colon (see below) 2. Status post ventriculoperitoneal shunt placement. 3. Status post prior hysterectomy and bilateral salpingo-oophorectomy through Pfannenstiel incision 4. S/p IR drainage 09/09/16 with removal of 20 cc pus and placement of a 10 Fr. pigtail catheter at [facility]. 5. Readmission to [facility] 09/15/16 with upsizing of drain to 12 Fr pigtail on (communication with colon demonstrated; no obvious free communication to rest of peritoneal space). Septic shock with multiorgan failure 09/21/2016 requiring ICU admission with intubation and pressors. 6. S/p a rather challenging sigmoid colectomy with performance of end colostomy (Reid's procedure), takedown of splenic flexure of the colon, lysis of adhesions (60 minutes), and abdominal lavage at [facility] on 09/21/16 7. Colon ischemia (distal transverse colon and descending colon) 8. S/p reentry through recent laparotomy incision with exploration of abdominal cavity, takedown of colostomy, completion left hemicolectomy with resection of distal transverse colon, lysis of adhesions, abdominal lavage, performance of an end colostomy [facility] 09/24/16 9. Stage I/II decubitus pressure ulcers (10/11/2016 [facility] ICU) Subjective: Remain on a ventilator with tracheostomy without major events. Awake today and much more communicative. No major noted complaints regarding abdominal pain. Appears much calmer. Objective: Vitals: See below I's & O's: See below Exam: GENERAL: On exam, the patient was lying in bed and appeared to be breathing comfortably on the vent. No obvious acute distress. Appears less emaciated. Facial skin and extremity skin peeling. ABDOMEN: Soft, nontender and nondistended. Incision dressings are clean, dry and intact without any obvious evidence of underlying erythema, edema, discharge , or hernia. There are no peritoneal signs or guarding. Ostomy appears to be viable and productive with stool and air in the bag. Skin around the ostomy is improved. Perihepatic drains showing pus and minimal ss output. No bile. SKIN: Skin appears to be pink and feels warm to touch. NEUROLOGIC: Patient is more awake today and more interactive; follows simple commands. Appeared to attempt to answer back and did answer yes/no questions. Remains on the ventilator with tracheostomy tube. Labs: See below Exam/Review of Systems Vital Signs Vitals Vital Signs Date Time Temp Pulse Resp B/P Pulse Ox O2 Delivery O2 Flow Rate FiO2 11/02/16 17:00 96 20 98 30 11/02/16 15:15 99.7 110/60 11/02/16 04:00 Mechanical Ventilator Intake and Output 11/01/16 11/01/16 11/02/16 15:00 23:00 07:00 Intake Total 1520 ml 920 ml Output Total 1250 ml 580 ml Balance 270 ml 340 ml Results Result Diagram: 11/02/16 0526 11/02/16 0526 ALEXSANDER DUARTE M.D. Nov 02, 2016 19:18
[2016-11-03] VITALS (23 sets, daily range): BP systolic 120–141; BP diastolic 59–84; PULSE 86–100; RESP 17–29
[2016-11-03] MEDS: ALBUTEROL 18 GM INHALER INH SCH ×6 (01:24→20:57)
[2016-11-03] MEDS: IPRATROPIUM (HFA) 12.9 GM INHALER INH SCH ×6 (01:24→20:57)
[2016-11-03] MEDS: LANSOPRAZOLE 30 MG CAP NGT SCH ×2 (05:48→18:00)
[2016-11-03] MEDS: BALSAM PERU/CASTOR OIL 60 GM TUBE TOP SCH (09:00)
[2016-11-03] MEDS: MIDODRINE 5 MG TAB PO SCH ×2 (09:00→17:00)
[2016-11-03] MEDS: DOCUSATE SODIUM 10 MG/ML (10ML CUP) NGT SCH ×2 (11:06→20:29)
[2016-11-03] MEDS: POLYETHYLENE GLYCOL 17 GM PACKET PO SCH (11:06)
[2016-11-03] MEDS: SODIUM CHLORIDE IVPB SCH ×2 (11:07)
[2016-11-03] MEDS: FLUCONAZOLE IVPB SCH ×2 (11:07)
[2016-11-03] MEDS: LORATADINE 10 MG TAB PO SCH (11:09)
[2016-11-03] MEDS: NYSTATIN SUSP 5 ML CUP PO SCH ×4 (11:10→20:29)
[2016-11-03] MEDS: SPIRONOLACTONE 50 MG TAB NGT SCH (11:10)
[2016-11-03] MEDS: BUMETANIDE 1 MG TAB PO SCH (11:10)
--- NOTE | 2016-11-03 11:13 | PN ---
DATE: 11/03/2016 SUBJECTIVE DATA: Patient is stable. No events overnight. No hemoptysis. Symptoms hematochezia. OBJECTIVE DATA: VITAL SIGNS: Blood pressure is 141/84, respirations 22, pulse 102, temperature 99.1. HEENT: Head is normocephalic. NECK: Supple. HEART: Regular rate. LUNGS: Diminished breath sounds at the base. ABDOMEN: Soft, nontender to palpation. No rebound or guarding. EXTREMITIES: Negative for clubbing, cyanosis. No edema. DERMATOLOGIC: Clean. No rashes. MUSCULOSKELETAL: No joint effusion. NEUROLOGIC: No change in exam. MEDICATIONS: Reviewed and currently pending. ASSESSMENT AND PLAN: 1. Nonoliguric acute kidney injury. Etiology secondary to hemodynamics. Renal function stabilized. Continue current treatment plan. Supportive care. Renally dose all meds. 2. Electrolyte abnormalities, improved. Continue to monitor and replete as needed. 3. Volume overload and anasarca, slowly improving. Continue current diuretic regimen, being managed by Cardiology. 4. Sepsis status post shock. The patient is completing antibiotic course. 5. Mineral bone disorder. Monitor calcium and phosphorus levels. 6. Anemia. Monitor hemoglobin and hematocrit levels. 7. Ventilator-dependent respiratory failure. Vent settings have been reviewed. ABGs reviewed. Continue to monitor. 8. 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. 9. Dysphagia status post percutaneous endoscopic gastrostomy. Continue tube feeding. 10. Paroxysmal atrial fibrillation. Currently sinus rhythm. Continue to monitor. Dictated By: Agustin Sanchez DO /rhina/cheikh /Document#: [id number]
--- NOTE | 2016-11-03 13:03 | PN ---
Date/Time of Note Date/Time of Note DATE: 11/03/16 TIME: 13:02 Assessment/Plan Lines/Catheters IV Catheter Type (from Nrsg): PICC Line Shore in Place (from Nrsg): Yes Assessment/Plan Chief Complaint/Hosp Course This is a 70-year-old female admitted with a perforated colon and contained abscess underwent a drainage procedure on further colonic procedures patient is currently in the intensive care unit unable to come off the ventilator secondary to multiple medical problems Patient was extubated and had to be input intubated again has been treated for septic shock lactic acidosis peritonitis currently has an end colostomy Helio pouch and has undergone colon resection patient also has a right-sided chest tube for a pneumothorax She was reintubated again Status post tracheostomy We will continue pulmonary toilet Trach care Right upper extremity DVT, patient not a candidate for anticoagulation due to anemia and thrombocytopenia. Vent support Pulmonary toilet Patient DNR supp care Problems: Subjective 24 Hr Interval Summary Constitutional: improved Pain Control: mild Exam/Review of Systems Vital Signs Vitals Vital Signs Date Time Temp Pulse Resp B/P Pulse Ox O2 Delivery O2 Flow Rate FiO2 11/03/16 11:00 89 18 97 30 11/03/16 08:10 99.0 133/65 11/02/16 04:00 Mechanical Ventilator Exam Neck: non-tender, supple Respiratory: clear to auscultation, normal air movement Cardiovascular: nl pulses, regular rate and rhythm, No S3, No S4, No bruits, No diastolic murmur, No edema, No gallop, No irregular rhythm, No jugular venous distention (JVD), No murmurs/extra sounds, No other, No rub, No systolic murmur Results Result Diagram: 11/02/16 0526 11/02/16 0526 GIL PINEDA MD Nov 03, 2016 13:03
--- NOTE | 2016-11-03 13:25 | CONS ---
Date/Time of Note Date/Time of Note DATE: 11/03/16 TIME: 13:22 Assessment/Plan Assessment/Plan Chief Complaint/Hosp Course Assessment/Plan Chief Complaint/Hosp Course ID PROGRESS NOTE CURRENT ABX => Diflucan 24H INTERVAL SUMMARY * Awake. Responsive. No Acute Distress. * Chart reviewed: DC [facility] EXAM: 70 yo F ->responsive, moving extremities HEENT: Unremarkable Neck: (+)Trach-> Vent Heart: S1, S2 CXT: chest rise symmetrical breath sounds clear, diminished basis. 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 s/p Sepsis w/shock , s/p lactic acidosis => RESOLVED * (+)Leukocytosis=> RESOLVED * (+)Fevers >101.5 10/07=> RESOLVED 2. PNA => Opportunistic (present on admission) + VAP * 10/08/16 CT CHEST: Multiple bilateral cavitary nodules...similar to the prior CT :DDx septic emboli, atypical (fungal, tuberculosis) infectious process, and possible neoplasm. * 1. Cryptococcal PNA -> present on admission with sputum Cx growing Mold w/(+) Cryptococcal antigen serology =>Per Dr. Sevilla/Chantel possible inhaled Phenix Droppings source w/(-) CSF fluid * 2. 10/02/ ETT aspirate (+) MOLD + yeast ->DDx contaminant, submit new sample * 10/07 ETT aspirate (+) MOLD + GNR ->(+) Cupriavidus pauculus, Previously known as Ralstonia paucula-> s/p ABX * AFB SMEAR (-) x 3 Final ACID FAST BACILLI NONE SEEN 3. Intra-ABD abscess * s/p 10/25 8.5-Austrian drain within a posterior perihepatic fluid collection with aspiration of 40 cc of purulent fluid sent for culture and sensitivity. * s/p 10/13/16 CT guided drainage * s/p Perforated sigmoid colon w/abscess: POD#-> s/p 09/21/16 Sigmoid colectomy with performance of end colostomy (Reid's procedure), w/Lysis of adhesions. 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 INDICATION: Possible FACILITIES MAINTENANCE ENGINEER shunt infection, ABD abscess * MICRO: 09/23/16 BODY FLUID CULTURE Final -> s/p ABX Organism 1 ENTEROCOCCUS SPECIES Organism 2 COAGULASE NEGATIVE STAPH Organism 3 ALPHA HEMOLYTIC STREP SPP . VIRIDANS GROUP 4. Acute respiratory failure -> orally RE-intubated 10/06 -> s/p Trach 5. CHF w/elevated BNP => (+)Anasarca w/Pleural effusions s/p CT drain 09/30 (-) Fungal organism, (-)AFB 6. Dysphagia-> s/p peg 7. Failure to thrive (-)MRSA Nares screen INVASIVES: PICC (09/25/16) , Trach, VPS, FC, CXT-Tube; PEG ABX ALLERGY: PCN, MERREM CURRENT ABX => Diflucan ID RECOMMENDATIONS 1. Continue high dose Diflucan 2. May TNS on current ABX Diflucan 1200 mg daily for indefinite time 3. Monitor Labs. Problems: Consultation Date/Type/Reason Admit Date/Time Sep 15, 2016 at 21:35 Initial Consult Date 10/09/16 Type of Consultation: id Exam/Review of Systems Vital Signs Vitals Vital Signs Date Time Temp Pulse Resp B/P Pulse Ox O2 Delivery O2 Flow Rate FiO2 11/03/16 11:00 89 18 97 30 11/03/16 08:10 99.0 133/65 11/02/16 04:00 Mechanical Ventilator Results Result Diagram: 11/02/16 0526 11/02/16525 Medications Medications Current Medications Ondansetron HCl (Zofran Inj) 4 mg Q6H PRN IV NAUSEA AND/OR VOMITING Last administered on 09/26/16 09:23; Admin Dose 4 MG; Start 09/16/16 at 00:30 Acetaminophen (Tylenol Tab) 650 mg Q6H PRN PO PAIN LEVEL 1-3 OR FEVER Last administered on 11/01/16 09:22; Admin Dose 650 MG; Start 09/16/16 at 00:30 Polyethylene Glycol (Miralax) 17 gm DAILY PO Last administered on 11/03/16 11: 06; Admin Dose 17 GM; Start 09/20/16 at 11:00 Acetaminophen/ Hydrocodone Bitart ([place] (5/325)) 1 tab Q4H PRN PO PAIN LEVEL 4 -7 Last administered on 09/28/16 21:20; Admin Dose 1 TAB; Start 09/21/16 at 15: 00 Acetaminophen/ Hydrocodone Bitart ([place] (5/325)) 2 tab Q4H PRN PO PAIN LEVEL 7 -10 Last administered on 11/02/16 10:07; Admin Dose 2 TAB; Start 09/21/16 at 15 :00 Hydromorphone HCl (Dilaudid) 0.5 mg Q2H PRN IV PAIN Last administered on 09:25; Admin Dose 0.5 MG; Start 09/21/16 at 15:00 Hydromorphone HCl (Dilaudid) 1 mg Q2H PRN IV PAIN Last administered on 01:54; Admin Dose 1 MG; Start 09/21/16 at 15:00 Docusate Sodium (Colace) 100 mg BID PRN PO CONSTIPATION; Start 09/21/16 at 15: 00 Docusate Sodium (Colace Liquid Cup) 100 mg BID NGT Last administered on 11:06; Admin Dose 100 MG; Start 09/22/16 at 21:00 IV Flush (NS 10 ml) 10 ml PRN PRN IV IV PROTOCOL; Start 09/25/16 at 12:00 Spironolactone (Aldactone) 50 mg DAILY NGT Last administered on 11/03/16 11:10 ; Admin Dose 50 MG; Start 09/28/16 at 09:00 Lorazepam (Ativan) 0.5 mg Q6H PRN IV AGITATION/ANXIETY Last administered on 08:00; Admin Dose 0.5 MG; Start 10/05/16 at 23:00 Nystatin (Nystatin Susp) 5 ml QID PO Last administered on 11/03/16 11:10; Admin Dose 5 ML; Start 10/19/16 at 13:00 Diphenhydramine HCl (Benadryl) 25 mg Q6H PRN IV PRURITUS Last administered on 10:49; Admin Dose 25 MG; Start 10/23/16 at 10:30 Loratadine (Claritin) 10 mg DAILY PO Last administered on 11/03/16 11:09; Admin Dose 10 MG; Start 10/23/16 at 15:00 Lansoprazole (Prevacid) 30 mg BID@06,18 NGT Last administered on 11/03/16 05: 48; Admin Dose 30 MG; Start 10/23/16 at 18:00 Midodrine 5 mg 5 mg BID@ PO Last administered on 11/03/16 09:00; Admin Dose 5 MG; Start 10/26/16 at 17:00 Fluconazole/N/A (Diflucan 400 Mg/ NS (Pmx)/Evac Container) 600 ml @ 100 mls/hr Q24H IVPB Last administered on 11/03/16 11:07; Admin Dose 100 MLS/HR; Start at 09:00 Bumetanide (Bumex) 1 mg DAILY PO Last administered on 11/03/16 11:10; Admin Dose 1 MG; Start 10/31/16 at 09:00 DAVION HANNA NP Nov 03, 2016 13:25
--- NOTE | 2016-11-03 13:35 | PN ---
Date/Time of Note Date/Time of Note DATE: 11/03/16 TIME: 13:34 Assessment/Plan VTE Prophylaxis VTE Prophylaxis Intervention: SCD's Lines/Catheters IV Catheter Type (from Nrsg): PICC Line Central line still needed: No Urinary Cath still in place: Yes Reason Cath still needed: other (indicate) (gen surg request?) Assessment/Plan Assessment/Plan 70 yo F with h/o hydrocephalus with previous VPS admitted for sigmoid abscess. hospital stay cb sepsis, colon perforation with multiple abd fluid collections , also recurrent respiratory failure warranting trach, pleural effusion with thora c/b by PTX (chest tube removed) 1. Sigmoid colon abscess 2/2 diverticulitis - s/p sigmoid colectomy with end colostomy (Reid's procedure) and adhesiolysis on 09/21/16 - cont abx and gen surg care 2. Ventilator dependent respiratory failure: sp trach 4. Paroxysmal A. fib: Now in sinus rhythm status post amiodarone. Cardiology on board 5. Acute renal insufficiency: Resolved. 6. Anemia: unclear etio of acute on chronic. 7. Dysphagia Status post PEG tube placement 8. RUE DVT: hold lovenox given anemia 9. hypotension: on midodrine 10. 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 Exam/Review of Systems Vital Signs Vitals Vital Signs Date Time Temp Pulse Resp B/P Pulse Ox O2 Delivery O2 Flow Rate FiO2 11/03/16 11:00 89 18 97 30 11/03/16 08:10 99.0 133/65 11/02/16 04:00 Mechanical Ventilator Exam nad trached moves UEs sponatenously abd not distended no rashes Results Result Diagram: 11/02/16 0526 11/02/16525 Medications Medications Current Medications Ondansetron HCl (Zofran Inj) 4 mg Q6H PRN IV NAUSEA AND/OR VOMITING Last administered on 09/26/16 09:23; Admin Dose 4 MG; Start 09/16/16 at 00:30 Acetaminophen (Tylenol Tab) 650 mg Q6H PRN PO PAIN LEVEL 1-3 OR FEVER Last administered on 11/01/16 09:22; Admin Dose 650 MG; Start 09/16/16 at 00:30 Polyethylene Glycol (Miralax) 17 gm DAILY PO Last administered on 11/03/16 11: 06; Admin Dose 17 GM; Start 09/20/16 at 11:00 Acetaminophen/ Hydrocodone Bitart ([place] (5/325)) 1 tab Q4H PRN PO PAIN LEVEL 4 -7 Last administered on 09/28/16 21:20; Admin Dose 1 TAB; Start 09/21/16 at 15: 00 Acetaminophen/ Hydrocodone Bitart ([place] (5/325)) 2 tab Q4H PRN PO PAIN LEVEL 7 -10 Last administered on 11/02/16 10:07; Admin Dose 2 TAB; Start 09/21/16 at 15 :00 Hydromorphone HCl (Dilaudid) 0.5 mg Q2H PRN IV PAIN Last administered on 09:25; Admin Dose 0.5 MG; Start 09/21/16 at 15:00 Hydromorphone HCl (Dilaudid) 1 mg Q2H PRN IV PAIN Last administered on 01:54; Admin Dose 1 MG; Start 09/21/16 at 15:00 Docusate Sodium (Colace) 100 mg BID PRN PO CONSTIPATION; Start 09/21/16 at 15: 00 Docusate Sodium (Colace Liquid Cup) 100 mg BID NGT Last administered on 11:06; Admin Dose 100 MG; Start 09/22/16 at 21:00 IV Flush (NS 10 ml) 10 ml PRN PRN IV IV PROTOCOL; Start 09/25/16 at 12:00 Spironolactone (Aldactone) 50 mg DAILY NGT Last administered on 11/03/16 11:10 ; Admin Dose 50 MG; Start 09/28/16 at 09:00 Lorazepam (Ativan) 0.5 mg Q6H PRN IV AGITATION/ANXIETY Last administered on 08:00; Admin Dose 0.5 MG; Start 10/05/16 at 23:00 Nystatin (Nystatin Susp) 5 ml QID PO Last administered on 11/03/16 11:10; Admin Dose 5 ML; Start 10/19/16 at 13:00 Diphenhydramine HCl (Benadryl) 25 mg Q6H PRN IV PRURITUS Last administered on 10:49; Admin Dose 25 MG; Start 10/23/16 at 10:30 Loratadine (Claritin) 10 mg DAILY PO Last administered on 11/03/16 11:09; Admin Dose 10 MG; Start 10/23/16 at 15:00 Lansoprazole (Prevacid) 30 mg BID@06,18 NGT Last administered on 11/03/16 05: 48; Admin Dose 30 MG; Start 10/23/16 at 18:00 Midodrine 5 mg 5 mg BID@,17 PO Last administered on 11/03/16 09:00; Admin Dose 5 MG; Start 10/26/16 at 17:00 Fluconazole/N/A (Diflucan 400 Mg/ NS (Pmx)/Evac Container) 600 ml @ 100 mls/hr Q24H IVPB Last administered on 11/03/16 11:07; Admin Dose 100 MLS/HR; Start at 09:00 Bumetanide (Bumex) 1 mg DAILY PO Last administered on 11/03/16 11:10; Admin Dose 1 MG; Start 10/31/16 at 09:00 ALEKS RAINEY MD Nov 03, 2016 13:35
--- NOTE | 2016-11-03 19:33 | CONS ---
Date/Time of Note Date/Time of Note DATE: 11/03/16 TIME: 19:32 Consult Date/Type/Reason Admit Date/Time Sep 15, 2016 at 21:35 Initial Consult Date 10/09/16 Type of Consultation: Pulm Subjective No events. On MV Objective Vital Signs Date Time Temp Pulse Resp B/P Pulse Ox O2 Delivery O2 Flow Rate FiO2 11/03/16 17:00 87 23 98 30 11/03/16 15:34 98.2 137/74 11/02/16 04:00 Mechanical Ventilator Exam HEENT: Neck supple; no JVD; no LAD; + trach CVS: RRR, S1 and S2 CHEST: Clear ABD: Distended , NT, + BS EXT: No c/c/e Results/Medications Result Diagram: 11/02/1652511/02/16525 Medications Current Medications Ondansetron HCl (Zofran Inj) 4 mg Q6H PRN IV NAUSEA AND/OR VOMITING Last administered on 09/26/16 09:23; Admin Dose 4 MG; Start 09/16/16 at 00:30 Acetaminophen (Tylenol Tab) 650 mg Q6H PRN PO PAIN LEVEL 1-3 OR FEVER Last administered on 11/01/16 09:22; Admin Dose 650 MG; Start 09/16/16 at 00:30 Polyethylene Glycol (Miralax) 17 gm DAILY PO Last administered on 11/03/16 11: 06; Admin Dose 17 GM; Start 09/20/16 at 11:00 Acetaminophen/ Hydrocodone Bitart ([place] (5/325)) 1 tab Q4H PRN PO PAIN LEVEL 4 -7 Last administered on 09/28/16 21:20; Admin Dose 1 TAB; Start 09/21/16 at 15: 00 Acetaminophen/ Hydrocodone Bitart ([place] (5/325)) 2 tab Q4H PRN PO PAIN LEVEL 7 -10 Last administered on 11/02/16 10:07; Admin Dose 2 TAB; Start 09/21/16 at 15 :00 Hydromorphone HCl (Dilaudid) 0.5 mg Q2H PRN IV PAIN Last administered on 09:25; Admin Dose 0.5 MG; Start 09/21/16 at 15:00 Hydromorphone HCl (Dilaudid) 1 mg Q2H PRN IV PAIN Last administered on 01:54; Admin Dose 1 MG; Start 09/21/16 at 15:00 Docusate Sodium (Colace) 100 mg BID PRN PO CONSTIPATION; Start 09/21/16 at 15: 00 Docusate Sodium (Colace Liquid Cup) 100 mg BID NGT Last administered on 11:06; Admin Dose 100 MG; Start 09/22/16 at 21:00 IV Flush (NS 10 ml) 10 ml PRN PRN IV IV PROTOCOL; Start 09/25/16 at 12:00 Spironolactone (Aldactone) 50 mg DAILY NGT Last administered on 11/03/16 11:10 ; Admin Dose 50 MG; Start 09/28/16 at 09:00 Lorazepam (Ativan) 0.5 mg Q6H PRN IV AGITATION/ANXIETY Last administered on 08:00; Admin Dose 0.5 MG; Start 10/05/16 at 23:00 Nystatin (Nystatin Susp) 5 ml QID PO Last administered on 11/03/16 11:10; Admin Dose 5 ML; Start 10/19/16 at 13:00 Diphenhydramine HCl (Benadryl) 25 mg Q6H PRN IV PRURITUS Last administered on 10:49; Admin Dose 25 MG; Start 10/23/16 at 10:30 Loratadine (Claritin) 10 mg DAILY PO Last administered on 11/03/16 11:09; Admin Dose 10 MG; Start 10/23/16 at 15:00 Lansoprazole (Prevacid) 30 mg BID@,18 NGT Last administered on 11/03/16 05: 48; Admin Dose 30 MG; Start 10/23/16 at 18:00 Midodrine 5 mg 5 mg BID@ PO Last administered on 11/03/16 09:00; Admin Dose 5 MG; Start 10/26/16 at 17:00 Fluconazole/N/A (Diflucan 400 Mg/ NS (Pmx)/Evac Container) 600 ml @ 100 mls/hr Q24H IVPB Last administered on 11/03/16 11:07; Admin Dose 100 MLS/HR; Start at 09:00 Bumetanide (Bumex) 1 mg DAILY PO Last administered on 11/03/16t 11:10; Admin Dose 1 MG; Start 10/31/16 at 09:00 Assessment/Plan Additional Assessment/Plan IMP: 1. s/p Septic Shock 2. Intra-abdominal abscess 3. Disseminated crypto 4. VDRF 5. Anemia 6. s/p PTX RECS: 1. Vent support 2. Optimization of nutrition 3. Consider transfuse 1 unit PRBC HANS VELÁZQUEZ MD Nov 03, 2016 19:33
[2016-11-04] VITALS (23 sets, daily range): BP systolic 120–136; BP diastolic 56–70; PULSE 81–103; RESP 16–27
[2016-11-04] MEDS: IPRATROPIUM (HFA) 12.9 GM INHALER INH SCH ×6 (00:51→21:07)
[2016-11-04] MEDS: ALBUTEROL 18 GM INHALER INH SCH ×6 (00:52→21:07)
[2016-11-04] MEDS: LANSOPRAZOLE 30 MG CAP NGT SCH ×2 (06:31→18:27)
[2016-11-04] MEDS: MIDODRINE 5 MG TAB PO SCH ×2 (09:00→17:00)
[2016-11-04] MEDS: DOCUSATE SODIUM 10 MG/ML (10ML CUP) NGT SCH ×2 (09:28→21:20)
[2016-11-04] MEDS: SPIRONOLACTONE 50 MG TAB NGT SCH (09:28)
[2016-11-04] MEDS: BUMETANIDE 1 MG TAB PO SCH (09:29)
[2016-11-04] MEDS: ACETAMINOPHEN 325 MG TAB PO PRN ×2 (09:29→23:37)
[2016-11-04] MEDS: LORATADINE 10 MG TAB PO SCH (09:29)
[2016-11-04] MEDS: POLYETHYLENE GLYCOL 17 GM PACKET PO SCH (09:29)
[2016-11-04] MEDS: NYSTATIN SUSP 5 ML CUP PO SCH ×4 (09:29→21:20)
[2016-11-04] MEDS: BALSAM PERU/CASTOR OIL 60 GM TUBE TOP SCH (09:30)
[2016-11-04] MEDS: SODIUM CHLORIDE IVPB SCH ×2 (09:34)
[2016-11-04] MEDS: FLUCONAZOLE IVPB SCH ×2 (09:34)
--- NOTE | 2016-11-04 11:08 | CONS ---
Date/Time of Note Date/Time of Note DATE: 11/04/16 TIME: 11:05 Assessment/Plan Assessment/Plan Additional Assessment/Plan Data setting; AC of 12, tidal volume 450, PEEP of 5, 30% FiO2. Next Assessment and recommendations; 1. Patient admitted with severe sepsis from recent surgery with colostomy. Next 2. Chronic respiratory failure, status post tracheostomy. 3. Severe generalized deconditioning. 4. Anemia. 5. Right upper extremity DVT, patient not a candidate for anticoagulation due to anemia. 6. Status post right iatrogenic pneumothorax, status post chest tube removal. Next Continue current treatment. Consider transfer to a rehab center. Prognosis remains poor. Consultation Date/Type/Reason Admit Date/Time Sep 15, 2016 at 21:35 Initial Consult Date 09/21/16 Type of Consultation: Pulm 24 HR Interval Summary Free Text/Dictation Patient condition stable. Remains ventilator dependent. Patient however is much more awake and now able to follow simple commands like mouth opening. General exam; elderly woman, on ventilator via tracheostomy, currently in no distress. Awake and alert. Exam/Review of Systems Vital Signs Vitals Vital Signs Date Time Temp Pulse Resp B/P Pulse Ox O2 Delivery O2 Flow Rate FiO2 11/04/16 08:05 92 11/04/16 07:49 100.2 23 126/70 98 11/04/16 05:13 30 11/02/16 04:00 Mechanical Ventilator Intake and Output 11/03/16 11/03/16 11/04/16 15:00 23:00 07:00 Intake Total 920 ml Output Total 1200 ml Balance -280 ml Exam HEENT exam; supple neck, no JVD. No lymphadenopathy. Midline trachea. No thyromegaly. Patient has multiple carious teeth. Tracheostomy in place. Insertion site is clean. Chest exam; clear to auscultation. S1-S2 audible, no murmurs. Regular rhythm. Abdomen exam; soft, G-tube in place. Colostomy in place. Bowel sounds audible. Abdomen is nontender. Next Extremity exam; no peripheral edema. PRODUCTION EXPEDITER exam; patient is awake and follows very simple commands but exhibiting profound generalized muscular weakness. Results Result Diagram: 11/02/1652511/02/16525 Medications Medications Current Medications Ondansetron HCl (Zofran Inj) 4 mg Q6H PRN IV NAUSEA AND/OR VOMITING Last administered on 09/26/16 09:23; Admin Dose 4 MG; Start 09/16/16 at 00:30 Acetaminophen (Tylenol Tab) 650 mg Q6H PRN PO PAIN LEVEL 1-3 OR FEVER Last administered on 11/04/16 09:29; Admin Dose 650 MG; Start 09/16/16 at 00:30 Polyethylene Glycol (Miralax) 17 gm DAILY PO Last administered on 11/04/16 09: 29; Admin Dose 17 GM; Start 09/20/16 at 11:00 Acetaminophen/ Hydrocodone Bitart ([place] (5/325)) 1 tab Q4H PRN PO PAIN LEVEL 4 -7 Last administered on 09/28/16 21:20; Admin Dose 1 TAB; Start 09/21/16 at 15: 00 Acetaminophen/ Hydrocodone Bitart ([place] (5/325)) 2 tab Q4H PRN PO PAIN LEVEL 7 -10 Last administered on 11/02/16 10:07; Admin Dose 2 TAB; Start 09/21/16 at 15 :00 Hydromorphone HCl (Dilaudid) 0.5 mg Q2H PRN IV PAIN Last administered on 09:25; Admin Dose 0.5 MG; Start 09/21/16 at 15:00 Hydromorphone HCl (Dilaudid) 1 mg Q2H PRN IV PAIN Last administered on 01:54; Admin Dose 1 MG; Start 09/21/16 at 15:00 Docusate Sodium (Colace) 100 mg BID PRN PO CONSTIPATION; Start 09/21/16 at 15: 00 Docusate Sodium (Colace Liquid Cup) 100 mg BID NGT Last administered on 09:28; Admin Dose 100 MG; Start 09/22/16 at 21:00 IV Flush (NS 10 ml) 10 ml PRN PRN IV IV PROTOCOL; Start 09/25/16 at 12:00 Spironolactone (Aldactone) 50 mg DAILY NGT Last administered on 11/04/16 09:28 ; Admin Dose 50 MG; Start 09/28/16 at 09:00 Lorazepam (Ativan) 0.5 mg Q6H PRN IV AGITATION/ANXIETY Last administered on 08:00; Admin Dose 0.5 MG; Start 10/05/16 at 23:00 Nystatin (Nystatin Susp) 5 ml QID PO Last administered on 11/04/16 09:29; Admin Dose 5 ML; Start 10/19/16 at 13:00 Diphenhydramine HCl (Benadryl) 25 mg Q6H PRN IV PRURITUS Last administered on 10:49; Admin Dose 25 MG; Start 10/23/16 at 10:30 Loratadine (Claritin) 10 mg DAILY PO Last administered on 11/04/16 09:29; Admin Dose 10 MG; Start 10/23/16 at 15:00 Lansoprazole (Prevacid) 30 mg BID@06,18 NGT Last administered on 11/04/16 06: 31; Admin Dose 30 MG; Start 10/23/16 at 18:00 Midodrine 5 mg 5 mg BID@,17 PO Last administered on 11/03/16 09:00; Admin Dose 5 MG; Start 10/26/16 at 17:00 Fluconazole/N/A (Diflucan 400 Mg/ NS (Pmx)/Evac Container) 600 ml @ 100 mls/hr Q24H IVPB Last administered on 11/04/16 09:34; Admin Dose 100 MLS/HR; Start at 09:00 Bumetanide (Bumex) 1 mg DAILY PO Last administered on 11/04/16 09:29; Admin Dose 1 MG; Start 10/31/16 at 09:00 GERARDO JUSTICE Nov 04, 2016 11:08
--- NOTE | 2016-11-04 12:48 | PN ---
Date/Time of Note Date/Time of Note DATE: 11/04/16 TIME: 12:46 Assessment/Plan Lines/Catheters IV Catheter Type (from Nrs): PICC Line Shore in Place (from Nrs): Yes Assessment/Plan Assessment/Plan [facility] Progress Note Date of Service: 11/04/2016 Place of service: [facility] ICU Today's Assessment & Plan: Overall stable and improving. Fever noted in the last 24 hours and could potentially be from the lungs. Chest x-ray has been ordered. Otherwise she appears to be doing relatively well outside of the ICU. Will be able to transfer to LTAC once above fever has been adequately worked up and a bed becomes available. Discussed with patient and with her ex- with emphasis on our primary goal to be to do what is needed to get the patient eventually home. I emphasized to the patient that we will not settle for her being institutionalized. Answered all questions. Previous assessment that still applies today: Overall stable but with failure to thrive. Abdomen continues to remain benign. Trach and PEG being used. Drainage of perihepatic fluid collection ongoing. Of great importance is adequate nutrition and I recommended that we continue the feeds through the PEG with a goal of 60 cc/h with guidance from our dietitian colleagues. With above assessment, I recommended the following for today: 1. Continue current management 2. Transfer to LTAC when bed available and when fever workup has been completed (chest x-ray ordered) 3. Please pursue an aggressive course towards weaning patient off the vent 4. Ostomy nurse to remain involved with the patient and assist with ostomy care and wound care Thank you again for your great care of this very pleasant patient and wonderful family. If there are any questions, please feel free to call me at [phone]. Nature of presenting problem: High severity Please note that, given the extensive number of diagnoses or management options , the extensive amount and/or complexity of data needed to be reviewed, and I risk of complications and/or morbidity or mortality, this qualifies as high complexity type of decision-making. Disclaimer: Inadvertent spelling and grammatical errors are likely due to EHR/ dictation software use and do not reflect on the quality of delivered patient care. Also, please note that the electronic time recorded on this node does not necessarily reflect the actual time of the visit. Updated Clinical Summary: A very pleasant 70-year-old lady without significant known past medical history other than a OSTOMY CARE NURSE shunt placement many years ago which she did not remember or report, presenting with what appears to be a sigmoid colon abscess or pericolonic abscess, which seemed to be a complication of diverticulitis. S/p IR drainage 09/09/16 with removal of 20 cc pus and placement of a 10 Fr. pigtail catheter at [facility]. D/c home 09/12/16. Re-presented to [place] ED 09/15/16 after being diverted from [facility] (due to internal disaster diversion) where CT was done showing adequate placement of the percutaneous drain near the sigmoid colon and decompressed sigmoid colon abscess, no obvious free air or significant spillage of stool in the abdominal cavity, and incidental finding of tail of the OSTOMY CARE NURSE shunt in the pelvis (new from right upper quadrant position of the same drain on the CT scan at [facility]). Transfer to [facility] 09/15/2016 for further cares. S/p upsizing of drain to 12 Fr pigtail on 09/17/16 (communication with colon demonstrated; no obvious free communication to rest of peritoneal space). Patient decompensated in the early hours of the morning on 09/21/2016 and had to be transferred to the intensive care unit with need for endotracheal tube intubation, central line placement, and resuscitation for treatment of shock with lactic acidosis and evidence of peritonitis and free air on the new chest, abdomen, and pelvis CT scan. S/p a rather challenging sigmoid colectomy with performance of end colostomy (Reid's procedure), takedown of splenic flexure of the colon, lysis of adhesions (60 minutes), and abdominal lavage at [facility] on 09/21/16; diagnosis of colon ischemia (distal transverse colon and descending colon) during reentry through recent laparotomy incision with exploration of abdominal cavity, takedown of colostomy, completion left hemicolectomy with resection of distal transverse colon, lysis of adhesions, abdominal lavage, performance of an end colostomy [facility] 09/24/16. Extubated post op evening of 09/25/16. Decompensation with intubation and restart of pressors . Right-sided pneumothorax after drainage of right pleural effusion requiring chest tube placement 09/30/2016. Extubated 10/03/2016. Decompensation with reintubation 10/06/16. Tracheostomy and PEG placed. Perihepatic fluid collections drained 10/13/2016. Cryptococcal antigen found in the urine 2016. Antifungal therapy started. S/p new perc drain perihepatic 10/23/16. Transferred out of the ICU to telemetry on 11/01/2016. Comorbidities: 1. Perforated sigmoid colon (see below) 2. Status post ventriculoperitoneal shunt placement. 3. Status post prior hysterectomy and bilateral salpingo-oophorectomy through Pfannenstiel incision 4. S/p IR drainage 09/09/16 with removal of 20 cc pus and placement of a 10 Fr. pigtail catheter at [facility]. 5. Readmission to [facility] 09/15/16 with upsizing of drain to 12 Fr pigtail on (communication with colon demonstrated; no obvious free communication to rest of peritoneal space). Septic shock with multiorgan failure 09/21/2016 requiring ICU admission with intubation and pressors. 6. S/p a rather challenging sigmoid colectomy with performance of end colostomy (Reid's procedure), takedown of splenic flexure of the colon, lysis of adhesions (60 minutes), and abdominal lavage at [facility] on 09/21/16 7. Colon ischemia (distal transverse colon and descending colon) 8. S/p reentry through recent laparotomy incision with exploration of abdominal cavity, takedown of colostomy, completion left hemicolectomy with resection of distal transverse colon, lysis of adhesions, abdominal lavage, performance of an end colostomy [facility] 09/24/16 9. Stage I/II decubitus pressure ulcers (10/11/2016 [facility] ICU) Subjective: Remain on a ventilator with tracheostomy without major events other than above mentioned fever. Remains awake today and much more communicative than the previous few weeks. No major noted complaints regarding abdominal pain. Appears much calmer. Objective: Vitals: See below I's & O's: See below Exam: GENERAL: On exam, the patient was lying in bed and appeared to be breathing comfortably on the vent. No obvious acute distress. Appears less emaciated. ABDOMEN: Soft, nontender and nondistended. Incision dressings are clean, dry and intact without any obvious evidence of underlying erythema, edema, discharge , or hernia. There are no peritoneal signs or guarding. Ostomy appears to be viable and productive with stool and air in the bag. Skin around the ostomy is improved. Perihepatic drains showing pus and minimal ss output. No bile. SKIN: Skin appears to be pink and feels warm to touch. NEUROLOGIC: Patient is more awake today and more interactive; follows simple commands. Appeared to attempt to answer back and did answer yes/no questions. Remains on the ventilator with tracheostomy tube. Labs: See below Exam/Review of Systems Vital Signs Vitals Vital Signs Date Time Temp Pulse Resp B/P Pulse Ox O2 Delivery O2 Flow Rate FiO2 11/04/16 11:52 98.8 101 16 130/68 97 11/04/16 11:30 30 11/02/16 04:00 Mechanical Ventilator Intake and Output 11/03/16 11/03/16 11/04/16 15:00 23:00 07:00 Intake Total 920 ml Output Total 1200 ml Balance -280 ml Results Result Diagram: 11/02/16 0526 11/02/16 0526 ALEXSANDER DUARTE M.D. Nov 04, 2016 12:48
[2016-11-04 13:26] LABS: BASOPHILS % 0.3 % (0.0-2.0); EOSINOPHILS # 0.2 10^3/ul (0.0-0.5); EOSINOPHILS % 1.3 % (0.0-7.0); HEMATOCRIT 24.2 % (37.0-47.0); HEMOGLOBIN 7.6 g/dl (12.0-16.0); LYMPHOCYTES # 1.5 10^3/ul (0.8-2.9); LYMPHOCYTES % 12.8 % (15.0-51.0); MEAN CORPUSCULAR HEMOGLOBIN 27.9 pg (29.0-33.0); MEAN CORPUSCULAR HGB CONC 31.4 g/dl (32.0-37.0); MEAN PLATELET VOLUME 10.3 fl (7.4-10.4); MONOCYTE # 1.2 10^3/ul (0.3-0.9); MONOCYTES % 10.2 % (0.0-11.0); NEUTROPHILS % 74.3 % (39.0-77.0); PLATELET COUNT 311 10^3/UL (140-415); RED BLOOD COUNT 2.72 10^6/ul (4.20-5.40); RED CELL DISTRIBUTION WIDTH 17.2 % (11.5-14.5); WHITE BLOOD COUNT 11.9 10^3/ul (4.8-10.8)
--- NOTE | 2016-11-04 13:27 | PN ---
DATE: 11/04/2016 SUBJECTIVE DATA: No fevers, chills, nausea, or vomiting. OBJECTIVE DATA: VITAL SIGNS: Blood pressure is 126/70, respirations 23, pulse 93, and temperature 100.2. HEENT: Head is normocephalic. NECK: Supple. HEART: Regular rate. LUNGS: Diminished breath sounds at the base. ABDOMEN: Soft, nontender to palpation. No rebound or guarding. EXTREMITIES: Negative for clubbing or cyanosis. No edema. DERMATOLOGIC: No rashes. MUSCULOSKELETAL: No joint effusion. NEUROLOGIC: Unchanged exam. MEDICATIONS: Have been reviewed. LABORATORY AND DIAGNOSTIC DATA: Have been reviewed. ASSESSMENT AND PLAN: 1. Nonoliguric acute kidney injury. Etiology secondary to hemodynamics. Renal function stabilized. Continue current treatment plan. Supportive care. 2. Electrolyte abnormalities, improved. Continue to monitor. 3. Volume overload, anasarca, slowly improving. Continue current diuretic regimen. 4. Sepsis status post shock. The patient is completing antibiotic course. 5. Mineral bone disorder. Continue to monitor calcium levels. 6. Anemia. Monitor hemoglobin and hematocrit levels. 7. Ventilatory-dependent respiratory failure. Vent settings. Arterial blood gases (ABGs) reviewed. 8. 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. 9. Dysphagia, status post percutaneous endoscopic gastrostomy. Continue tube feeding. 10. Paroxysmal atrial fibrillation. Currently sinus rhythm. Continue to monitor. Dictated By: Augstin Sanchez DO /rhina/shari /Document#: [id number]
--- NOTE | 2016-11-04 13:41 | PN ---
Date/Time of Note Date/Time of Note DATE: 11/04/16 TIME: 13:31 Assessment/Plan VTE Prophylaxis VTE Prophylaxis Intervention: SCD's Lines/Catheters IV Catheter Type (from Nrs): PICC Line Central line still needed: Yes Urinary Cath still in place: Yes Reason Cath still needed: urinary retention Assessment/Plan Chief Complaint/Hosp Course Assessment/Plan: 70 yo F with h/o hydrocephalus with previous VPS admitted for sigmoid abscess. hospital stay cb sepsis, colon perforation with multiple abd fluid collections, also recurrent respiratory failure warranting trach, pleural effusion with thora c/b by PTX (chest tube removed). 1. Sigmoid colon abscess 2/2 diverticulitis - s/p sigmoid colectomy with end colostomy (Reid's procedure) and adhesiolysis on 09/21/16 - cont abx and gen surg care 2. Ventilator dependent respiratory failure: sp trach 4. Paroxysmal A. fib: Now in sinus rhythm status post amiodarone. Did have some bigeminy and trigeminy this morning, now in normal sinus rhythm. Cardiology on board 5. Acute renal insufficiency: Resolved. 6. Anemia: unclear etio of acute on chronic. 7. Dysphagia Status post PEG tube placement 8. RUE DVT: holding lovenox given anemia 9. hypotension: on midodrine 10. 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 Once this issue resolves, as long as patient is medically stable, plan for discharge to lung rehab facility/[place] Problems: Subjective 24 Hr Interval Summary Free Text/Dictation Seen by surgery and pulmonary teams. Had fever this morning, as well as some bigeminy and trigeminy with tachycardia this morning, now resolved. Exam/Review of Systems Vital Signs Vitals Vital Signs Date Time Temp Pulse Resp B/P Pulse Ox O2 Delivery O2 Flow Rate FiO2 11/04/16 11:52 98.8 101 16 130/68 97 11/04/16 11:30 30 11/02/16 04:00 Mechanical Ventilator Intake and Output 11/03/16 11/03/16 11/04/16 15:00 23:00 07:00 Intake Total 920 ml Output Total 1200 ml Balance -280 ml Exam Lying in bed, in mild distress trached moves UEs sponatenously abd not distended no rashes Results Result Diagram: 11/04/16 1305 11/02/16 0526 Results 24 hrs Laboratory Tests Test 11/04/16 13:05 White Blood Count 11.9 #H Red Blood Count 2.72 L Hemoglobin 7.6 L Hematocrit 24.2 L Mean Corpuscular Volume 89.0 Mean Corpuscular Hemoglobin 27.9 L Mean Corpuscular Hemoglobin Concent 31.4 L Red Cell Distribution Width 17.2 H Platelet Count 311 Mean Platelet Volume 10.3 Neutrophils % 74.3 Lymphocytes % 12.8 L Monocytes % 10.2 Eosinophils % 1.3 Basophils % 0.3 Nucleated Red Blood Cells % 0.0 Neutrophils # (Manual) 8.9 H Lymphocytes # 1.5 Monocytes # 1.2 H Eosinophils # 0.2 Basophils # 0.0 Nucleated Red Blood Cells # 0.0 Medications Medications Current Medications Ondansetron HCl (Zofran Inj) 4 mg Q6H PRN IV NAUSEA AND/OR VOMITING Last administered on 09/26/16 09:23; Admin Dose 4 MG; Start 09/16/16 at 00:30 Acetaminophen (Tylenol Tab) 650 mg Q6H PRN PO PAIN LEVEL 1-3 OR FEVER Last administered on 11/04/16 09:29; Admin Dose 650 MG; Start 09/16/16 at 00:30 Polyethylene Glycol (Miralax) 17 gm DAILY PO Last administered on 11/04/16 09: 29; Admin Dose 17 GM; Start 09/20/16 at 11:00 Acetaminophen/ Hydrocodone Bitart ([place] (5/325)) 1 tab Q4H PRN PO PAIN LEVEL 4 -7 Last administered on 09/28/16 21:20; Admin Dose 1 TAB; Start 09/21/16 at 15: 00 Acetaminophen/ Hydrocodone Bitart ([place] (5/325)) 2 tab Q4H PRN PO PAIN LEVEL 7 -10 Last administered on 11/02/16 10:07; Admin Dose 2 TAB; Start 09/21/16 at 15 :00 Hydromorphone HCl (Dilaudid) 0.5 mg Q2H PRN IV PAIN Last administered on 09:25; Admin Dose 0.5 MG; Start 09/21/16 at 15:00 Hydromorphone HCl (Dilaudid) 1 mg Q2H PRN IV PAIN Last administered on 01:54; Admin Dose 1 MG; Start 09/21/16 at 15:00 Docusate Sodium (Colace) 100 mg BID PRN PO CONSTIPATION; Start 09/21/16 at 15: 00 Docusate Sodium (Colace Liquid Cup) 100 mg BID NGT Last administered on 09:28; Admin Dose 100 MG; Start 09/22/16 at 21:00 IV Flush (NS 10 ml) 10 ml PRN PRN IV IV PROTOCOL; Start 09/25/16 at 12:00 Spironolactone (Aldactone) 50 mg DAILY NGT Last administered on 11/04/16 09:28 ; Admin Dose 50 MG; Start 09/28/16 at 09:00 Lorazepam (Ativan) 0.5 mg Q6H PRN IV AGITATION/ANXIETY Last administered on 08:00; Admin Dose 0.5 MG; Start 10/05/16 at 23:00 Nystatin (Nystatin Susp) 5 ml QID PO Last administered on 11/04/16 09:29; Admin Dose 5 ML; Start 10/19/16 at 13:00 Diphenhydramine HCl (Benadryl) 25 mg Q6H PRN IV PRURITUS Last administered on 10:49; Admin Dose 25 MG; Start 10/23/16 at 10:30 Loratadine (Claritin) 10 mg DAILY PO Last administered on 11/04/16 09:29; Admin Dose 10 MG; Start 10/23/16 at 15:00 Lansoprazole (Prevacid) 30 mg BID@06,18 NGT Last administered on 11/04/16 06: 31; Admin Dose 30 MG; Start 10/23/16 at 18:00 Midodrine 5 mg 5 mg BID@17 PO Last administered on 11/03/16 09:00; Admin Dose 5 MG; Start 10/26/16 at 17:00 Fluconazole/N/A (Diflucan 400 Mg/ NS (Pmx)/Evac Container) 600 ml @ 100 mls/hr Q24H IVPB Last administered on 11/04/16 09:34; Admin Dose 100 MLS/HR; Start at 09:00 Bumetanide (Bumex) 1 mg DAILY PO Last administered on 11/04/16t 09:29; Admin Dose 1 MG; Start 10/31/16 at 09:00 DENNY MEDEL Nov 04, 2016 13:41
[2016-11-04 13:44] LABS: CALCIUM 6.9 mg/dl (8.4-10.2); CREATININE 0.45 mg/dl (0.44-1.00)
[2016-11-04 13:55] LABS: POTASSIUM 2.9 mmol/L (3.5-5.1)
[2016-11-04] MEDS: POTASSIUM CHLORIDE 250 ML IVPB SCH ×2 (14:40→19:28)
--- NOTE | 2016-11-04 16:13 | DS ---
Date/Time of Note Date/Time of Note DATE: 11/04/16 TIME: 16:07 Discharge Summary Admission/Discharge Info Admit Date/Time Sep 15, 2016 at 21:35 Discharge Date/Time Discharge Diagnosis sigmoid abscess, sepsis, colon perforation with multiple abd fluid collections warranting drainage, respiratory failure warranting trach, pleural effusion with thora c/b by PTX (chest tube removed 8.11), paroxysmal AFib. Patient Condition: Stable Hx of Present Illness 8.16 PROCEDURE: CT-guided drainage of a perihepatic collection CLINICAL INDICATION: Posterior perihepatic fluid collection TECHNIQUE: Under direct CT guidance, a 19 Ga needle was advanced into the fluid collection and a guidewire was advanced as confirmed by CT guidance. The needle was exchanged over the wire for an 8.5 Iraqi drainage tube which was placed within the fluid collection. Approximately 40 cc's of grossly purulent fluid were aspirated with a specimen sent for culture and sensitivity. The catheter was connected to a drainage bag and sutured to the patient's skin. FINDINGS: Posterior perihepatic fluid collection. IMPRESSION: Uncomplicated placement of an 8.5-Iraqi drain within a posterior perihepatic fluid collection with aspiration of 40 cc of purulent fluid sent for culture and sensitivity. 8.11 R sided chest tube pulled VPS ligated 8.6 PROCEDURE: CT abdominal drainage CLINICAL INDICATION: Abdominal fluid collection TECHNIQUE: Consent: The procedure, risks, complications and alternatives were explained to the patient. A signed written informed consent was obtained. Technique/results: The patient was laid supine on the CT table. Preliminary CT scan through the abdomen and pelvis redemonstrates a right upper quadrant perihepatic fluid collection. Under CT guidance, a Yueh needle was advanced into the collection. Yueh sheath was exchanged over an Amplatz wire for dilators followed by an 8.5 Iraqi multipurpose drain. 10 cc of pus was removed and sent for laboratory tests. The drain was attached to an accordion drainage bag and secured in place using suture and a stat lock. FINDINGS: Successful CT-guided perihepatic abscess drainage 8.4 trach 8.2: EGD/PEG 7.25 UE duplex IMPRESSION: DVT involving the right basilic vein and right subclavian vein. 7.24 R sided thoracentesis (complicated by PTX) 7.18 OPERATION: 1. Reentry through recent laparotomy incision with exploration of abdominal cavity 2. Takedown of colostomy 3. Completion left hemicolectomy with resection of distal transverse colon 3. Lysis of adhesions 4. Abdominal lavage 5. Performance of an colostomy 7.15 sigmoid colectomy with end colostomy (Reid's procedure) and adhesiolysis VPS externalized Hospital Course 70 yo F with h/o hydrocephalus with previous VPS admitted for sigmoid abscess for which pt underwent sigmoid colectomy with end colostomy (Reid's procedure ) and adhesiolysis on 09/21/16 . Hospital stay was complicated sepsis, colon perforation with multiple abd fluid collections warranting drainage, also recurrent respiratory failure warranting trach, pleural effusion with thora c/b by PTX (chest tube removed 8.11), paroxysmal AFib. Regarding pt's h/o hydrocephalus and VPS status, drain externalized shortly after admission given abd infection. VPS subsequently ligated 8.11 by NS with no subsequent hydrocephalus appreciated. Pt with frequent hypotension for which she was started on midodrine. Pt with incidental finding of + serum cyrptococcal Ag. Given that ET tube culture with mold, concern for systemic cryptococcus from primary pulmonary source. Pt started on antifungal therapy by ID. Pt noted to have RUE swelling, found to have RUE DVT on duplex, however ATC on hold given low hgb. Patient also found with fever on November 04, 2016, and cultures along with chest x-ray were ordered. Fever workup will continue when patient is transferred to [facility] later today. See printed medical reconciliation form for full list of discharge medications. Home Meds Discontinued Reported Medications Nystatin (Nystatin) 100,000 Unit/1 Ml Oral.susp, 5 ML PO TID for 7 Days, #60 ML 09/15/16 Metronidazole* (Flagyl*) 500 Mg Tablet, 500 MG PO TID, TAB 09/15/16 Oxycodone HCl/Acetaminophen (Percocet 10-325 mg Tablet) 1 Each Tablet, 1 EACH PO Q8 Y for PAIN, TAB 09/15/16 Levofloxacin (Levofloxacin) 500 Mg/20 Ml Solution, 500 MG PO DAILY, ML 09/15/16 Primary Care Provider Pacheco Chu Time spent on discharge: > 30 minutes Pending Labs Laboratory Tests Test 11/04/16 13:05 White Blood Count 11.910^3/ul (4.8-10.8) Red Blood Count 2.7210^6/ul (4.20-5.40) Hemoglobin 7.6g/dl (12.0-16.0) Hematocrit 24.2% (37.0-47.0) Mean Corpuscular Volume 89.0fl (82.0-101.0) Mean Corpuscular Hemoglobin 27.9pg (29.0-33.0) Mean Corpuscular Hemoglobin Concent 31.4g/dl (32.0-37.0) Red Cell Distribution Width 17.2% (11.5-14.5) Platelet Count 75500^3/UL (140-415) Mean Platelet Volume 10.3fl (7.4-10.4) Neutrophils % 74.3% (39.0-77.0) Lymphocytes % 12.8% (15.0-51.0) Monocytes % 10.2% (0.0-11.0) Eosinophils % 1.3% (0.0-7.0) Basophils % 0.3% (0.0-2.0) Nucleated Red Blood Cells % 0.0/100WBC (0.0-0.0) Neutrophils # (Manual) 8.910^3/ul (1.7-7.5) Lymphocytes # 1.510^3/ul (0.8-2.9) Monocytes # 1.210^3/ul (0.3-0.9) Eosinophils # 0.210^3/ul (0.0-0.5) Basophils # 0.010^3/ul (0.0-0.1) Nucleated Red Blood Cells # 0.010^3/ul (0.0-0.0) Sodium Level 142mmol/L (135-144) Potassium Level 2.9mmol/L (3.5-5.1) Chloride Level 105mmol/L (97-110) Carbon Dioxide Level 27mmol/L (21-31) Anion Gap 13 (8-16) Blood Urea Nitrogen 18mg/dl (7-20) Creatinine 0.45mg/dl (0.44-1.00) Glucose Level 148mg/dl (70-220) Calcium Level 6.9mg/dl (8.4-10.2) DENNY MEDEL Nov 04, 2016 16:13
--- NOTE | 2016-11-04 16:23 | PDOCDIS ---
Discharge Instructions DIAGNOSIS Discharge Diagnosis sigmoid abscess, sepsis, colon perforation with multiple abd fluid collections warranting drainage, respiratory failure warranting trach, pleural effusion with thora c/b by PTX (chest tube removed 8.11), paroxysmal AFib. CONDITION Patient Condition: Stable HOME CARE INSTRUCTIONS: Special Diet: DENNY URIAS Nov 04, 2016 16:23
--- NOTE | 2016-11-04 16:40 | PN ---
Date/Time of Note Date/Time of Note DATE: 11/04/16 TIME: 16:39 Assessment/Plan Lines/Catheters IV Catheter Type (from Nrsg): PICC Line Shore in Place (from Nrsg): Yes Assessment/Plan Chief Complaint/Hosp Course This is a 70-year-old female admitted with a perforated colon and contained abscess underwent a drainage procedure on further colonic procedures patient is currently in the intensive care unit unable to come off the ventilator secondary to multiple medical problems Patient was extubated and had to be input intubated again has been treated for septic shock lactic acidosis peritonitis currently has an end colostomy Helio pouch and has undergone colon resection patient also has a right-sided chest tube for a pneumothorax She was reintubated again Status post tracheostomy We will continue pulmonary toilet Trach care Right upper extremity DVT, patient not a candidate for anticoagulation due to anemia and thrombocytopenia. Vent support Pulmonary toilet Patient DNR supp care Problems: Subjective 24 Hr Interval Summary Constitutional: improved Pain Control: mild Exam/Review of Systems Vital Signs Vitals Vital Signs Date Time Temp Pulse Resp B/P Pulse Ox O2 Delivery O2 Flow Rate FiO2 11/04/16 16:01 98.8 96 20 136/70 98 11/04/16 11:30 30 11/02/16 04:00 Mechanical Ventilator Intake and Output 11/03/16 11/03/16 11/04/16 15:00 23:00 07:00 Intake Total 920 ml Output Total 1200 ml Balance -280 ml Exam Neck: non-tender, supple Respiratory: clear to auscultation, normal air movement Cardiovascular: nl pulses, regular rate and rhythm Results Result Diagram: 11/04/16 1305 11/04/16 1305 GIL PINEDA MD Nov 04, 2016 16:40
--- NOTE | 2016-11-04 18:00 | RADRPT ---
PROCEDURE: XR Chest. CLINICAL INDICATION: Cough and fever. TECHNIQUE: Single frontal view. COMPARISON: 10/20/2016. FINDINGS: The tracheostomy tube and right arm PICC line are in satisfactory position. There is bilateral inte rstitial pulmonary disease and bilateral basilar consolidation, unchanged. The heart size is normal. There is calcification in the aorta consistent with atherosclerosis. There are small bilateral pleural effusions with left larger than right. There is no pneumothorax. IMPRESSION: 1. No change from 10/20/2016. RPTAT: QQ .Beto Cortes MD, MD Date Time Electronically viewed and signed by .Beto Cortes MD, MD on 11/04/2016 17:59 .R/
[2016-11-05 00:03] VITALS: BP 130/74; RESP 26
[2016-11-05 00:55] VITALS: PULSE 95
--- NOTE | 2016-11-05 02:47 | PN ---
DATE: 11/04/2016 INFECTIOUS DISEASE PROGRESS NOTE SUBJECTIVE DATA: No acute changes overnight. The patient is alert, looks comfortable. Denies pain. No fevers. Vital signs stable. LABORATORY AND DIAGNOSTIC DATA: WBC 11.9. H and H 7.6 and 24.2, platelets 311, no shift, no bands. BUN 18, creatinine 0.45. Diagnostics: Chest x-ray this morning revealed no change, indwelling trach, PEG, oley, PICC line. Antimicrobials: Diflucan. PHYSICAL EXAMINATION: GENERAL: Chronically ill-appearing, elderly woman, who is awake, in no distress. HEENT: Head atraumatic, normocephalic. Sclerae anicteric. Buccal mucosa dry. NECK: Supple. Tracheostomy present. CHEST: Rise symmetrical. Breath sounds diminished at the bases. HEART: S1, S2. ABDOMEN: Soft, bowel sounds present. EXTREMITIES: Without cyanosis. ASSESSMENT: 1. 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 2. Status post perforated bowel repair with end colostomy complicated by intra-abdominal abscess drainage on October 23, 2016. 3. Status post pneumonia. 4. Status post pneumothorax. 5. Chronic respiratory failure and dysphagia, status post trach, PEG. 6. PASSENGER SERVICE REPRESENTATIVE shunt. Status post externalization with ligation. 7. Anemia. 8. Allergy to penicillin and likely meropenem. PLAN: The patient remains stable. Continue present care. Keep on Diflucan for indefinite time. Repeat cocci serolo in a couple months. Dictated By: Kathy Lopez NP /rhina/candie /Document#: [id number] LIZA
[2016-11-05 18:02] LABS: ADD UMIC NO; UR ASCORBIC ACID NEGATIVE (NEGATIVE); UR BILIRUBIN (Dip) NEGATIVE (NEGATIVE); UR BLOOD (Dip) NEGATIVE (NEGATIVE); UR CLARITY CLEAR (CLEAR); UR COLOR YELLOW (YELLOW); UR GLUCOSE (Dip) NEGATIVE (NEGATIVE); UR KETONES (Dip) NEGATIVE (NEGATIVE); UR LEUKOCYTE ESTERASE (Dip) NEGATIVE Leu/ul (NEGATIVE); UR NITRITE (Dip) NEGATIVE (NEGATIVE); UR SPECIFIC GRAVITY (Dip) 1.013 (1.003-1.030); UR TOTAL PROTEIN (Dip) NEGATIVE (NEGATIVE); UR UROBILINOGEN (Dip) NEGATIVE (NEGATIVE)
== END 2016-11-05 01:27 | DRG 31 ==
LOC: MS4 21:35 → ICU 09-21 00:38 → TEL 10-31 23:17
PROVIDERS: ADMIT Family Medicine; ATTEND Family Medicine
PROC: 0DBN0ZZ Excision of Sigmoid Colon, Open Approach (ICD-10-PCS; 2016-09-21)
PROC: 0DBM0ZZ Excision of Descending Colon, Open Approach (ICD-10-PCS; 2016-09-21)
PROC: 0BH17EZ Insertion of Endotracheal Airway into Trachea, Via Natural or Artificial Opening (ICD-10-PCS; 2016-09-21)
PROC: 5A1945Z Respiratory Ventilation, 24-96 Consecutive Hours (ICD-10-PCS; 2016-09-21)
PROC: 30233K1 Transfusion of Nonautologous Frozen Plasma into Peripheral Vein, Percutaneous Approach (ICD-10-PCS; 2016-09-21)
PROC: 30233N1 Transfusion of Nonautologous Red Blood Cells into Peripheral Vein, Percutaneous Approach (ICD-10-PCS; 2016-09-21)
PROC: 0D1N0Z4 Bypass Sigmoid Colon to Cutaneous, Open Approach (ICD-10-PCS; principal; 2016-09-21 07:30)
PROC: 0DNL0ZZ Release Transverse Colon, Open Approach (ICD-10-PCS; 2016-09-23)
PROC: 30233R1 Transfusion of Nonautologous Platelets into Peripheral Vein, Percutaneous Approach (ICD-10-PCS; 2016-09-24)
PROC: 02HV33Z Insertion of Infusion Device into Superior Vena Cava, Percutaneous Approach (ICD-10-PCS; 2016-09-25)
PROC: 0W993ZX Drainage of Right Pleural Cavity, Percutaneous Approach, Diagnostic (ICD-10-PCS; 2016-09-26)
PROC: 5A1955Z Respiratory Ventilation, Greater than 96 Consecutive Hours (ICD-10-PCS; 2016-09-28)
PROC: 5A1955Z Respiratory Ventilation, Greater than 96 Consecutive Hours (ICD-10-PCS; 2016-09-28)
PROC: 0W993ZX Drainage of Right Pleural Cavity, Percutaneous Approach, Diagnostic (ICD-10-PCS; 2016-09-30)
PROC: 0W9B3ZX Drainage of Left Pleural Cavity, Percutaneous Approach, Diagnostic (ICD-10-PCS; 2016-10-01)
PROC: 0DB68ZX Excision of Stomach, Via Natural or Artificial Opening Endoscopic, Diagnostic (ICD-10-PCS; 2016-10-09)
PROC: 0DH63UZ Insertion of Feeding Device into Stomach, Percutaneous Approach (ICD-10-PCS; 2016-10-09)
PROC: 0W9G3ZX Drainage of Peritoneal Cavity, Percutaneous Approach, Diagnostic (ICD-10-PCS; 2016-10-13)
PROC: 00P60JZ Removal of Synthetic Substitute from Cerebral Ventricle, Open Approach (ICD-10-PCS; 2016-10-18)
PROC: 0DNN0ZZ Release Sigmoid Colon, Open Approach (ICD-10-PCS; 2016-10-22)
PROC: 0DNL0ZZ Release Transverse Colon, Open Approach (ICD-10-PCS; 2016-10-22)
PROC: 0W9G3ZX Drainage of Peritoneal Cavity, Percutaneous Approach, Diagnostic (ICD-10-PCS; 2016-10-23)
PROC: 0D1L0Z4 Bypass Transverse Colon to Cutaneous, Open Approach (ICD-10-PCS; 2016-10-24)
PROC: 0DTG0ZZ Resection of Left Large Intestine, Open Approach (ICD-10-PCS; 2016-10-24)
DX: T85.730A Infection and inflammatory reaction due to ventricular intracranial (communicating) shunt, initial encounter (principal); K72.00 Acute and subacute hepatic failure without coma; I21.4 Non-ST elevation (NSTEMI) myocardial infarction; N17.0 Acute kidney failure with tubular necrosis; J96.00 Acute respiratory failure, unspecified whether with hypoxia or hypercapnia; J93.0 Spontaneous tension pneumothorax; R65.21 Severe sepsis with septic shock; G92 Toxic encephalopathy; J90 Pleural effusion, not elsewhere classified; A41.9 Sepsis, unspecified organism; J18.9 Pneumonia, unspecified organism; I50.31 Acute diastolic (congestive) heart failure; K63.0 Abscess of intestine; K55.1 Chronic vascular disorders of intestine; K57.20 Diverticulitis of large intestine with perforation and abscess without bleeding; K63.2 Fistula of intestine; D61.818 Other pancytopenia; D68.9 Coagulation defect, unspecified; E87.1 Hypo-osmolality and hyponatremia; E87.2 Acidosis; I82.621 Acute embolism and thrombosis of deep veins of right upper extremity; G91.9 Hydrocephalus, unspecified; B45.9 Cryptococcosis, unspecified; T81.89XA Other complications of procedures, not elsewhere classified, initial encounter; B95.2 Enterococcus as the cause of diseases classified elsewhere; K25.9 Gastric ulcer, unspecified as acute or chronic, without hemorrhage or perforation; D50.9 Iron deficiency anemia, unspecified; D64.89 Other specified anemias; D63.8 Anemia in other chronic diseases classified elsewhere; I11.0 Hypertensive heart disease with heart failure; I48.0 Paroxysmal atrial fibrillation; I95.9 Hypotension, unspecified; E87.5 Hyperkalemia; E88.09 Other disorders of plasma-protein metabolism, not elsewhere classified; E83.9 Disorder of mineral metabolism, unspecified; F41.9 Anxiety disorder, unspecified; Y83.8 Other surgical procedures as the cause of abnormal reaction of the patient, or of later complication, without mention of misadventure at the time of the procedure; Y83.9 Surgical procedure, unspecified as the cause of abnormal reaction of the patient, or of later complication, without mention of misadventure at the time of the procedure; Y95 Nosocomial condition; Z98.2 Presence of cerebrospinal fluid drainage device; R60.1 Generalized edema; R13.10 Dysphagia, unspecified; R62.7 Adult failure to thrive; R41.0 Disorientation, unspecified; L89.92 Pressure ulcer of unspecified site, stage 2; Z66 Do not resuscitate; Z88.0 Allergy status to penicillin; Z86.79 Personal history of other diseases of the circulatory system; Z98.890 Other specified postprocedural states
CPT/HCPCS: 31500; 32555; 36430; 36569; 36600; 49423; 70450; 71010; 71250; 71260; 74176; 74177; 75989; 76937; 77012; 80048; 80053; 80202; 81001; 81003; 82040; 82042; 82150; 82270; 82550; 82553; 82784; 82803; 82945; 82962; 83520; 83540; 83605; 83615; 83690; 83735; 83880; 84100; 84132; 84157; 84166; 84443; 84484; 85014; 85018; 85025; 85610; 85730; 86403; 86592; 86606; 86635; 86641; 86644; 86698; 86781; 86850; 86900; 86901; 86920; 87040; 87070; 87075; 87081; 87086; 87102; 87103; 87116; 87385; 88104; 88300; 88305; 88309; 88312; 89051; 89220; 92526; 92610; 93005; 93306; 93971; 94002; 94003; 94640; 94660; 94664; 94770; J1120; J1940; C1769; C9113; J0131; J0282; J0289; J0461; J0610; J0690; J0744; J1170; J1200; J1265; J1450; J1610; J1644; J1650; J1720; J1815; J1885; J1956; J2060; J2185; J2250; J2270; J2354; J2370; J2405; J2710; J2916; J2997; J3010; J3243; J3370; J3475; J3480; J7030; J7040; J7050; J7060; J7070; J7999; P9016; P9035; P9045; P9047; P9059; Q9967

== ENCOUNTER 2016-11-13 13:49 | Inpatient (IN) | payer OTHER ==
[~2016-11-13] VITALS: Ht 157.5 cm; Wt 69.8 kg
[2016-11-13] MEDS ORDERED: SODIUM CHLORIDE 0.9% 1L BAG IV* STA (13:57)
[2016-11-13] MEDS ORDERED: OXYC-431 PO (14:22)
--- NOTE | 2016-11-13 14:24 | RADRPT ---
PROCEDURE: XR Chest. CLINICAL INDICATION: Respiratory distress. TECHNIQUE: AP view of the chest was performed. COMPARISON: November 12, 2016 FINDINGS: The tracheostomy tube remains in good positioning. There are persistent, diffuse, bilateral lung inf iltrates with mild vascular congestion. No pneumothorax or pleural effusion. Osteopenia is present. IMPRESSION: Tracheostomy tube in good positioning. Persistent diffuse bilateral lung infiltrates with mild vascu lar congestion. Pneumonia is of consideration. Overall, no interval change. RPTAT: QQ. .Julia Srinivasan MD, MD Date Time Electronically viewed and signed by .Julia Srinivasan MD, MD on 11/13/2016 14:24 .F/
[2016-11-13] MEDS ORDERED: LIDOCAINE 1% (MPF) 5 ML VIAL SC ONE (14:30)
[2016-11-13] MEDS ORDERED: MEROPENEM 500MG/50 ML (PMX) 50 ML IVPB STA (14:31)
[2016-11-13 14:39] LABS: ABNORMAL IP MESSAGE 1; HEMATOCRIT 28.1 % (37.0-47.0); HEMOGLOBIN 9.2 g/dl (12.0-16.0); MEAN CORPUSCULAR HEMOGLOBIN 29.4 pg (29.0-33.0); MEAN CORPUSCULAR HGB CONC 32.7 g/dl (32.0-37.0); MEAN CORPUSCULAR VOLUME 89.8 fl (82.0-101.0); MEAN PLATELET VOLUME 10.4 fl (7.4-10.4); NUCLEATED RED BLOOD CELLS% 0.3 /100WBC (0.0-0.0); PLATELET COUNT 331 10^3/UL (140-415); RED BLOOD COUNT 3.13 10^6/ul (4.20-5.40); RED CELL DISTRIBUTION WIDTH 16.7 % (11.5-14.5); WHITE BLOOD COUNT 16.9 10^3/ul (4.8-10.8)
[2016-11-13 14:57] LABS: EOSINOPHILS # 0.2 10^3/ul (0.0-0.5); EOSINOPHILS % (M) 1 % (0.0-7.0); LYMPHOCYTES # 1.4 10^3/ul (0.8-2.9); METAMYELOCYTES %M 2 % (0-0); MONOCYTE # 1.4 10^3/ul (0.3-0.9); MONOCYTES % (M) 8 % (0-11); PROMYELOCYTES #M 0 10^3/ul (0-0); PROMYELOCYTES % (M) 1 % (0-0)
[2016-11-13 15:00] LABS: INR 1.61; PROTIME 19.3 Sec (12.2-14.2); PT RATIO 1.5
[2016-11-13] MEDS ORDERED: VANCOMYCIN IV PER PHARMACY XX SCH (15:00)
[2016-11-13 15:01] LABS: PARTIAL THROMBOPLASTIN TIME 34.9 Sec (25.0-35.0)
[2016-11-13 15:02] LABS: ALANINE AMINOTRANSFERASE 35 IU/L (13-69); ALBUMIN 1.8 g/dl (3.3-4.9); ALBUMIN/GLOBULIN RATIO 0.47; ALKALINE PHOSPHATASE 672 IU/L (42-121); ANION GAP 12 (8-16); ASPARTATE AMINO TRANSFERASE 35 IU/L (15-46); BLOOD UREA NITROGEN 53 mg/dl (7-20); CALCIUM 8.8 mg/dl (8.4-10.2); CARBON DIOXIDE 22 mmol/L (21-31); CHLORIDE 103 mmol/L (97-110); CREATININE 1.05 mg/dl (0.44-1.00); GLUCOSE 125 mg/dl (70-220); POTASSIUM 3.8 mmol/L (3.5-5.1); SODIUM 133 mmol/L (135-144); TOTAL PROTEIN 5.6 g/dl (6.1-8.1)
[2016-11-13 15:18] LABS: TROPONIN-I < 0.012 ng/ml (0.00-0.12)
[2016-11-13] MEDS ORDERED: NORepinephrine 8MG/250 ML (PMX 250 ML IV STA (15:50)
[2016-11-13] MEDS ORDERED: VANCOMYCIN 1.25 GM in SOD CHLORIDE 0.9% 250 ML IVPB ONE (16:00)
--- NOTE | 2016-11-13 16:20 | ERA ---
ER Documentation Chief Complaint Date/Time DATE: 11/13/16 TIME: 16:11 Chief Complaint SENT BY [facility] FOR LOW BP AND HIGH HR. MORE ALTERED THAN NORMAL. HPI This is a 71-year-old female who is a DNR, DNI, chemical code only patient. The patient has a complicated history including chronic respiratory failure, ventilator dependence, recent surgery with multiple drains. The patient has recently been diagnosed with sepsis and started on meropenem and vancomycin yesterday. It does not appear she received 2 doses today. The patient has been hypotensive at [facility] therefore transferred to the emergency room for further care. Remainder of HPI is very limited given the patient is nonverbal. ROS All systems reviewed and are negative except as per history of present illness. Medications Home Meds Reported Medications Oxycodone HCl/Acetaminophen (Oxycodone-Acetaminophen 10-325) 1 Each Tablet, 1 TAB PO Q6, #20 11/13/16 Allergies Allergies: Coded Allergies: Penicillins (Verified Allergy, Unknown, 09/30/16) PMhx/Soc History of Surgery: Yes (brain hemorrhage (2000); s/p perforated diverticulitis , trach, gtube) Anesthesia Reaction: No Hx Neurological Disorder: Yes (muscle spasms in legs occassionally) Hx Respiratory Disorders: Yes (respiratory failure trach to vent) Hx Cardiac Disorders: No Hx Psychiatric Problems: No Hx Miscellaneous Medical Probl: No Hx Alcohol Use: No Hx Substance Use: No Hx Tobacco Use: No Smoking Status: Never smoker FmHx Family History: No diabetes Physical Exam Vitals Vital Signs Date Time Temp Pulse Resp B/P Pulse Ox O2 Delivery O2 Flow Rate FiO2 11/13/16 16:43 96.7 69 26 76/48 97 Mechanical Ventilator 11/13/16 15:36 96.5 -17.7792 27 72/43 97 11/13/16 14:07 96.5 76 27 72/43 97 11/13/16 14:00 74 12 96 30 Physical Exam General: No significant distress Head: Normocephalic, atraumatic. Eyes: Pupils equally reactive, EOM intact ENT: Moist mucous membranes Neck: Supple, no lymphadenopathy Respiratory: Rhonchi bilaterally cardiovascular: RRR, no murmurs, rubs, or gallops Abdominal: Protuberant with multiple drains : Deferred MSK: Limited movement of all 4 extremities, no bony abnormalities Neurologic: Limited exam, and encephalopathic, limited movement of all 4 extremities Skin: No rash, no significant breakdown Psych: Unable to assess Result Diagram: 11/13/16 1420 11/13/16 1420 Results 24 hrs Laboratory Tests Test 11/13/16 14:20 White Blood Count 16.910^3/ul Red Blood Count 3.1310^6/ul Hemoglobin 9.2g/dl Hematocrit 28.1% Mean Corpuscular Volume 89.8fl Mean Corpuscular Hemoglobin 29.4pg Mean Corpuscular Hemoglobin Concent 32.7g/dl Red Cell Distribution Width 16.7% Platelet Count 79527^3/UL Mean Platelet Volume 10.4fl Neutrophils % % Segmented Neutrophils % (Manual) 69% Band Neutrophils % (Manual) 11% Lymphocytes % % Lymphocytes % (Manual) 8% Monocytes % % Monocytes % (Manual) 8% Eosinophils % % Eosinophils % (Manual) 1% Basophils % % Metamyelocytes % (manual) 2% Promyelocytes % (Manual) 1% Nucleated Red Blood Cells % 0.3/100WBC Neutrophils # (Manual) 12.010^3/ul Band Neutrophils # 1.810^3/ul Absolute Lymphocytes (Manual) 1.310^3/ul Lymphocytes # 1.410^3/ul Monocytes # 1.410^3/ul Absolute Monocytes (Manual) 1.310^3/ul Eosinophils # 0.210^3/ul Basophils # 10^3/ul Metamyelocytes # 0.310^3/ul Promyelocytes # 010^3/ul Nucleated Red Blood Cells # 10^3/ul Prothrombin Time 19.3Sec Prothrombin Time Ratio 1.5 INR International Normalized Ratio 1.61 Activated Partial Thromboplast Time 34.9Sec Sodium Level 133mmol/L Potassium Level 3.8mmol/L Chloride Level 103mmol/L Carbon Dioxide Level 22mmol/L Anion Gap 12 Blood Urea Nitrogen 53mg/dl Creatinine 1.05mg/dl Glucose Level 125mg/dl Lactic Acid Level 6.1mmol/L Calcium Level 8.8mg/dl Total Bilirubin 0.0mg/dl Direct Bilirubin 0.00mg/dl Indirect Bilirubin 0.0mg/dl Aspartate Amino Transf (AST/SGOT) 35IU/L Alanine Aminotransferase (ALT/SGPT) 35IU/L Alkaline Phosphatase 672IU/L Troponin I < 0.012ng/ml Total Protein 5.6g/dl Albumin 1.8g/dl Globulin 3.80g/dl Albumin/Globulin Ratio 0.47 Current Medications Medications (Trade) Dose Ordered Sig/Popeye Route PRN Reason Start Time Stop Time Status Last Admin Dose Admin Sodium Chloride (NS) 2,170 ml BOLUS OVER 2 HOURS STAT IV* 11/13/16 13:57 11/13/16 14:02 DC 11/13/16 14:27 Lidocaine (Xylocaine 1% (Mpf)) 5 ml ONCE ONCE SC 11/13/16 14:30 11/13/16 14:31 DC Vancomycin HCl VANCOMYCIN PER PHARMACY PER PROTOCOL XX 11/13/16 15:00 Meropenem/Sodium Chloride 50 ml @ 200 mls/hr ONCE STAT IVPB 11/13/16 14:31 11/13/16 14:45 DC 11/13/16 15:22 Norepinephrine 250 ml @ 7.5 mls/hr ONCE STAT IV 11/13/16 15:50 11/13/16 17:01 DC Vancomycin HCl 1.25 gm/Sodium Chloride 250 ml @ 83.333 mls/ hr ONCE ONCE IVPB 11/13/16 16:00 11/13/16 16:03 DC 11/13/16 15:57 Vancomycin HCl (Vancocin) 250 ml @ 125 mls/hr Q36H IVPB 11/14/16 05:00 Famotidine (Pepcid) 20 mg HS PO 11/13/16 21:00 Enoxaparin Sodium 40 mg 40 mg DAILY SC 11/14/16 09:00 Norepinephrine 250 ml @ 1.875 mls/ hr PER PROTOCOL IV 11/13/16 17:00 Norepinephrine/ Dextrose (Levophed/D5W) 500 ml @ 1.875 mls/ hr TITRATE IV 11/13/16 17:30 Procedures/MDM EKG, MONITORS, & DIAGNOSTIC IMAGING: CT abdomen and pelvis with IV contrast performed yesterday IMPRESSION: 1. Large left pleural effusion is noted, increased in size from prior CT. Mild , loculated right pleural fluid collection is again noted, grossly stable. 2. Bibasilar pulmonary consolidation is seen, increased from prior CT, possibly atelectasis and/or pneumonia. 3. Posterior perihepatic drainage catheters are in place. There has been near- complete resolution of previously seen loculated posterior perihepatic collections. 4. There is mild diffuse bowel wall thickening and mesenteric edema, suggestive of mild enterocolitis. 5. Urinary bladder wall appears circumferentially thickened, concerning for cystitis. 6. Gastrostomy tube and Shore catheter are in place. 7. The patient is status post sigmoid colon resection and left lower quadrant colostomy placement. No bowel obstruction or perforation is identified. 8. Nonspecific fluid is again seen within the endometrial cavity - consider ultrasound correlation. 9. No evidence of biliary dilatation or cholecystitis is identified. 10. Indeterminate 3.2 cm cystic structure is again arising from the body of the pancreas, stable when compared to the prior exam - attention on follow-up is recommended. RPTAT: JJ EKG: I reviewed and interpreted a 12-lead EKG. Rhythm: Normal sinus rhythm Ectopy: None Intervals: No abnormalities ST segments: No elevations or depressions T waves: No contiguous inversions Chest x-ray: I reviewed and interpreted a 1 view of the chest Mediastinum: No enlargement Cardiac silhouette: No cardiomegaly Airspace: Interstitial process bilaterally bones: No evidence of fracture LAB INTERPRETATION: Leukocytosis and lactic acidosis MEDICAL DECISION MAKING: The patient presents with hypotension with multiple sources of potential infection including healthcare associated pneumonia, intra-abdominal abscess and urinary tract infection. The patient is hypotensive likely consistent with severe sepsis and septic shock. Lactic acid was noted to be elevated at 5 at [facility]. I had a conversation with the patient's managing physician Dr. Fisher. He states that the patient is currently being followed by general surgeon Dr. Maldonado, infectious disease Dr. Sevilla. Speaking to Dr. Maldonado he recommends comfort measures and no further surgical intervention. Speaking to infectious disease they recommend vancomycin, meropenem and Diflucan. They will administer Diflucan once the patient arrives to the ICU. First dose of vancomycin and meropenem provided in the emergency department. Goals of care consistent with fluids, antibiotics. The family is okay with a PICC line for pressors if needed. For this reason the PICC line has been ordered the patient will likely require pressors. A central line was not placed in the emergency department given the patient's specific goals of care and the fact that these interventions would carry more risk. The family seems agreeable over the phone. Continue other palliative measures including fluids, antipyretics as needed. ER COURSE: The patient received a 30 cc/kg bolus of saline. Broad-spectrum antibiotics as described above. I kept the patient and/or family informed of laboratory and diagnostic imaging results throughout the emergency room course. DISPOSITION PLAN: Intensive care unit placement CONSULTATION: Accepting care team and consultations: I discussed the current laboratory data, diagnostic imaging and emergency care provided. Admitting team: Dr. Lockhart Admitting team indication: Insurance directed Consulting services: General surgery and infectious disease as documented above Sepsis Documentation: Patient's infectious symptoms have not stabilized and the patient is at risk of rapid decompensation. The patient will be admitted for careful hydration, antibiotic therapy, and infectious source control. SEVERE SEPSIS CRITERIA: Infectious source: Healthcare associated pneumonia end organ damage indicated by: Lactic acidosis and hypotension SEPSIS MANAGEMENT Time of recognition of severe sepsis/septic shock: Upon arrival 3 HOUR BUNDLE Blood cultures x 2 before broad-spectrum antibiotics: Yes 30 ml/kg NS bolus Completed Initial lactate greater than 5 Repeat lactate pending SEPTIC SHOCK ASSESSMENT: Yes lactic acid > 4.0 Yes persistent hypotension (SBP < 90 or 40 mmHg drop, MAP < 65) despite 30 mL/ kg IV fluid bolus VOLUME REASSESSMENT FOR SEPTIC SHOCK: Reevaluation Time: 4:19 PM Temperature of 96.7 pulse of 69 respiratory rate 26 blood pressure 76/48 pulse ox 97% on ventilator Heart Regular rate & rhythm Lungs rhonchi Skin Warm & dry Cap Refill Less than 2 seconds Peripheral pulses Radially present PERSISTENT HYPOTENSION TREATMENT: Comfort care yes central line PICC line Vasopressor started levo to the bedside pending PICC line I considered further perfusion assessment with CVP measurement, SCVO2, bedside ultrasound volume assessment, passive leg raise, trial of further fluid bolus. And proceeded with 30 ml/kg fluid bolus of NSS, broad spectrum antbiotics, and admission. CRITICAL CARE Critical care time 35 minutes Emergent fluid management while maintaining close respiratory support. Provision of immediate and broad-spectrum antibiotic therapy. Simultaneous assessment for possible sources in order to direct targeted therapy. Consideration for invasive and chemical support to prevent cardiopulmonary collapse. Critical care time is independent of procedures performed. PICC line placed appropriately, levo initiated Departure Diagnosis: Primary Impression: Chronic respiratory failure Qualified Code: J96.10 - Chronic respiratory failure, unspecified whether with hypoxia or hypercapnia Additional Impressions: Septic shock Healthcare-associated pneumonia DNR (do not resuscitate) DNI (do not intubate) Condition: Critical MADIHA CANELAOLAS A., MD Nov 13, 2016 16:20
--- NOTE | 2016-11-13 17:16 | HP ---
Date/Time of Note Date/Time of Note DATE: 11/13/16 TIME: 16:58 Assessment/Plan VTE Prophylaxis VTE Prophylaxis Intervention: SCD's Assessment/Plan Assessment/Plan 71 yo F with present prolonged stay at [facility] mid September-->end october for sigmoid abscess for which she underwent sigmoid colectomy with end colostomy with adhesiolysis. Hospital stay was complicated sepsis, colon perforation with multiple abd fluid collections warranting drainage and drain placement, also recurrent respiratory failure warranting trach, pleural effusion with thora c/b by PTX, paroxysmal AFib, as well as diagnosis of cryptococcal pneumonia. She was transferred back to the hospital from [facility] this AM for hypotension and leukocytosis. Labs here also reveal lactic acidosis. This clinical picture is concerning for septic shock, though source unclear. Possibly pna given CT findings, no evidence of intraabdominal infection at this time. CV: pressor support, hold previous BP meds (aldactone, bumex) -cont midodrine Pulm: pulm consult for help with vent management consider thora, though will dw pulm first cont DAVI ID: ID consult for antimicrobial assistance-->per brief discussion, cont vanc, debbie, high dose diflucan for now -check CDiff given pt has been on multiple broad spectrum abx for several weeks GI/biliary: general surgeon notified of pt's admission. Imaging with just bowel edema but otherwise no acute bowel pathology Heme: monitor anemia, transfus for hgb <7 FEN: cont tube feeds Prophx:SCDs only given anemia in recent days, PPI, pain meds critical care time: 60 minutes HPI/ROS Admit Date/Time Admit Date/Time Hx of Present Illness CC Sepsis HPI: 71 yo old female with recent prolonged stay at [facility] transferred to [facility] 8.29 transferred back today for hypotension. Regarding pt's previous hospital stay, she was here mid September-->end october. 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 Hospital stay was complicated sepsis, colon perforation with multiple abd fluid collections warranting drainage and drain placement, also recurrent respiratory failure warranting trach, pleural effusion with thora c/b by PTX (chest tube removed 8.11), paroxysmal AFib. Pt also with remote h/o hydrocephalus, had VPS placed quite some time ago. During last admission drain externalized shortly after admission given abd infection. VPS subsequently ligated 8.11 by NS with no subsequent hydrocephalus appreciated. Pt had frequent hypotension for which she was started on midodrine. Pt with incidental finding of + serum cryptococcal Ag. Given that ET tube culture with mold, concern for systemic cryptococcus from primary pulmonary source. Pt started on antifungal therapy by ID. Pt noted to have RUE swelling, found to have RUE DVT on duplex, however ATC on hold given low hgb. During pt's week at [facility], appears she was doing well until either last night or this morning. Pt pancultured this AM Progress note from yesterday notes that weaning was held 2/2 hypotension and anemia, Pt on FIO2 30%., hgb was 6.8. She was transfused 1 unit of blood last night. CT AP from yesterday with large L pleural effusion larger than prior, stable loculated R sided pleural effusion, bb pulm consolidation-->pna v atelctasis, diffuse bowel edema, resolution of loculated posterior perihepatic fluid collection with drain still in place, bladder wall thickening, ednometrial fluid , and no biliary pathology. ROS unable to obtain ROS from pt as she is trached PMH/Family/Social Past Surgical History Past Surgical Hx: bowel resection Social History Smoking Status: Never smoker Exam/Review of Systems Vital Signs Vitals Vital Signs Date Time Temp Pulse Resp B/P Pulse Ox O2 Delivery O2 Flow Rate FiO2 11/13/16 16:43 96.7 69 26 76/48 97 Mechanical Ventilator 11/13/16 14:00 30 Exam Exam exam: trached, chronically ill appearing diffuse skin peeling noted +anasarca follows commands no mrg coarse breath sounds ostomy with pink stoma R sided abd drains with yellow output labs from this AM with Cr 1.05, Na 133, K 3.8, transaminases nl, AP 754, bili 0 , albumin 1.9 CBC 14.4>9.8<332. WBCs with L shift labs here: hgb 9.2, Cr ok, Lactic acid 6 Labs Result Diagram: 11/13/16 1420 11/13/16 1420 Medications Medications Current Medications Vancomycin HCl (Vancocin) 250 ml @ 125 mls/hr Q36H IVPB ; Start 11/14/16 at 05: 00 Famotidine (Pepcid) 20 mg Q12 PO ; Start 11/13/16 at 21:00; Status UNV Enoxaparin Sodium (Lovenox) 40 mg DAILY SC ; Start 11/14/16 at 09:00; Status ALEKS WARD MD Nov 13, 2016 17:16 Vancomycin HCl (Vancocin) 250 ml @ 125 mls/hr Q36H IVPB ; Start 11/14/16 at 05: 00 Famotidine (Pepcid) 20 mg Q12 PO ; Start 11/13/16 at 21:00; Status UNV Enoxaparin Sodium (Lovenox) 40 mg DAILY SC ; Start 11/14/16 at 09:00; Status ALEKS WARD MD Nov 13, 2016 17:16
--- NOTE | 2016-11-13 17:35 | RADRPT ---
PROCEDURE: XR Chest. CLINICAL INDICATION: Check Line Placement TECHNIQUE: Single frontal view of the chest was obtained COMPARISON: Chest x-ray 11/13/2016 at 05:13 p.m. FINDINGS: Tracheostomy tube remains in place. The left PICC line has been retracted and the tip now projects over the lower superior vena cava/ ca voatrial junction region. Percutaneous drains are again partially imaged projecting over the right lower quadrant. The cardiomediastinal silhouette remains within normal limits. Atherosclerotic calcifications of the aorta are noted. Diffuse patchy airspace opacities persist throughout both lungs, stable compared to prior study, con cerning for multifocal pneumonia. No pneumothorax is identified. A small partially layering left pleural effusion is redemonstrated. The osseous structures, as visualized, are unchanged. IMPRESSION: 1. Interval retraction of left-sided PICC line with tip projecting over the lower superior vena cava /cavoatrial junction region. 2. Tracheostomy in place. 3. Right lower quadrant percutaneous catheters in similar positions. 4. Diffuse patchy airspace opacities scattered throughout both lungs, most confluent in the left nabil g, concerning for multifocal pneumonia, unchanged. 5. Small partially layering right pleural effusion, stable. RPTAT: QQ Physician Chato Date Time Electronically viewed and signed by Physician Chato on 11/13/2016 17:35 RC/
[2016-11-13] MEDS: NORepinephrine 8MG/250 ML (PMX 250 ML IV SCH (17:48)
[2016-11-13] MEDS ORDERED: ALBUTEROL 18 GM INHALER INH PRN (18:00)
[2016-11-13] MEDS ORDERED: HYDROCODONE/APAP (5/325) TAB PO PRN (18:00)
--- NOTE | 2016-11-13 19:03 | PN ---
DATE: 11/13/2016 SUBJECTIVE DATA: The patient became septic, dropped her blood pressure, and being transferred to ICU. She was started on broad- spectrum antibiotics yesterday. LAB: White blood cell count this morning was 14.4, H and H 9.8 and 30.5, platelets 332, neutrophils 81, BUN 51, creatinine 1.5 1.05. Sodium 133. MICROBIOLOGY: Cultures are pending. INDWELLINGS: Patient has trach, PEG, Shore catheter, intra- abdominal drainage catheters. PHYSICAL EXAMINATION: GENERAL: This is a chronically ill-appearing, wasted, elderly woman, who is lethargic, in no distress. HEENT: Head is atraumatic, normocephalic. Sclerae are anicteric. Buccal mucosa is dry. NECK: Supple. Tracheostomy is present. LUNGS: Chest rise is symmetrical. Breath sounds are diminished. HEART: S1, S2. ABDOMEN: Distended. Bowel sounds hypoactive. EXTREMITIES: Bilateral edema. SKIN: Was anasarca. ASSESSMENT: 1. Septic shock. 2. 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 Sputum culture on admission grew mold, and cerebrospinal fluid cultures have been negative. 3. Status post perforated colon repair with recurrent intra- abdominal abscess status post drainage on October 23, 2016. 4. Chronic respiratory failure. 5. History of pneumothorax post thoracentesis. 6. 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 Status post externalization with ligation. 7. Anemia. 8. Cachexia. 9. Allergy to penicillin. PLAN: We are going to keep the patient on broad-spectrum antibiotics. Continue high dose of fluconazole. Await for final cultures. Await for CT of the abdomen and pelvis with IV contrast and follow recommendations of consultants. Above was discussed with the ER physician, Dr. Landrum. Dictated By: Kathy Lopez NP /rhina/sesar /Document#: [id number]
--- NOTE | 2016-11-13 19:04 | RADRPT ---
PROCEDURE: XR Chest, 11/13/2016, 05:09 p.m. CLINICAL INDICATION: After insertion of left PICC line. TECHNIQUE: AP chest x-ray. COMPARISON: Chest 11/13/2016, 02:11 p.m.,. FINDINGS: The tip of the left PICC line is in the right atrium. The heart is not enlarged. There is consolida tion in the left lower lobe. There are patchy filtrates in the both upper lobes. There is mild left pleural effusion. IMPRESSION: 1. The tip of the left PICC line is in the right atrium. 2. Consolidation in the left lower lobe. 3. Patchy infiltrates in the both upper lobes. 4. Mild left pleural effusion. RPTAT: GG .Calixto Collins MD, Date Time Electronically viewed and signed by .Calixto Collins MD, on 11/13/2016 18:18 .Y/
--- NOTE | 2016-11-13 19:04 | RADRPT ---
PROCEDURE: XR Chest, 11/13/2016, 05:13 p.m.. CLINICAL INDICATION: After insertion of left PICC line. TECHNIQUE: AP chest x-ray. COMPARISON: Chest, 11/13/2016, 02:11 p.m.. FINDINGS: The tip of the PICC line is in the inferior vena cava. The heart is not enlarged. There are consoli dation in the left lower lobe, unchanged. There are patchy infiltrates in the both upper lobes. The re is small left pleural effusion. IMPRESSION: 1. The tip of the PICC line is in the inferior vena cava. Recommend 10 cm pullback of the PICC brandon e. 2. Consolidation in the left lower lobe, unchanged. Patchy infiltrates in the both upper lobes. A 3 small left pleural effusion. RPTAT: GG .Calixto Collins MD, Date Time Electronically viewed and signed by .Calixto Collins MD, on 11/13/2016 18:10 .Y/
[2016-11-13 19:24] LABS: ADD UMIC YES; UR ASCORBIC ACID NEGATIVE (NEGATIVE); UR BACTERIA FEW /HPF (NONE SEEN); UR BILIRUBIN (Dip) NEGATIVE (NEGATIVE); UR BLOOD (Dip) 1+ mg/dL (NEGATIVE); UR CLARITY CLOUDY (CLEAR); UR COLOR AMBER (YELLOW); UR GLUCOSE (Dip) 2+ mg/dL (NEGATIVE); UR KETONES (Dip) NEGATIVE (NEGATIVE); UR LEUKOCYTE ESTERASE (Dip) 1+ Leu/ul (NEGATIVE); UR MUCUS FEW /HPF (NONE SEEN); UR NITRITE (Dip) NEGATIVE (NEGATIVE); UR RBC 64 /HPF (0-5); UR SPECIFIC GRAVITY (Dip) 1.042 (1.003-1.030); UR SQUAMOUS EPITHELIAL CELL FEW /HPF (FEW); UR TOTAL PROTEIN (Dip) 2+ mg/dl (NEGATIVE); UR UROBILINOGEN (Dip) NEGATIVE (NEGATIVE)
--- NOTE | 2016-11-13 19:26 | CONS ---
DATE OF ADMISSION: 11/13/2016 DATE OF CONSULTATION: 11/13/2016 HISTORY OF PRESENT ILLNESS: The patient is a 70-year-old female with a history of hydrocephalus status post BIT SHARPENER shunt, had a sigmoid abscess. Initially had a percutaneous drain for the drainage of the abscess. Subsequently, after discharge, they found that the patient had fecal material coming out of the pigtail catheter, so diagnosis of abscess rupture was made. The patient underwent sigmoid colectomy and colostomy with Helio's procedure and lysis of the adhesion on 09/21. Her operative course was complicated with a colon perforation, multiple abdominal fluid collection requiring multiple drain, she also went into respiratory failure requiring tracheostomy, had a pleural effusion, pneumothorax. Chest tube was placed. The patient also had a paroxysmal atrial fibrillation. As per the discharge summary, patient had a BIT SHARPENER shunt which was externalized due to the abdominal infection, subsequently it was ligated. The patient also during the stay in the hospital at [facility] was found to be hypotensive, started on midodrine. She also had a cryptococcal positive antigen and placed on antifungal treatment by ID. When the patient was somewhat stable, she was transferred to [facility] for rehab with a colostomy, G-tube and tracheostomy on vent. However, at [place] the patient became hypotensive, had a CAT scan of the abdomen and pelvis done, and subsequently transferred to the emergency room for further management. All the medications reviewed. REVIEW OF SYSTEMS: Unable to do because of critical state of the patient who was hypotensive on vent. PAST MEDICAL HISTORY: Diverticulitis, brain hemorrhage. PAST SURGICAL HISTORY: BIT SHARPENER shunt and pigtail catheter and surgery as described in the history of present illness. FAMILY HISTORY: Unable to obtain. SOCIAL HISTORY: Unknown. ALLERGIES: NONE. PHYSICAL EXAMINATION: VITAL SIGNS: The patient is hypotensive with systolic blood pressure of 70. She is on a vent. HEENT: Tongue appears to be dry. ABDOMEN: Benign. Has got a colostomy G-tube which is in place. SKIN: Appears to be firm and also has got a desquamation of the skin both on the thigh and on the abdominal wall, looks like an allergic reaction with somewhat dry hyperemic skin. EXTREMITIES: No edema. NEUROLOGIC: Keeps eyes open but does not communicate. LABORATORY DATA: WBC 16.9, hematocrit is 28, BUN was 53, creatinine was 1, alkaline phosphatase was elevated to 672. Albumin was 1.8. INR was 1.5. IMPRESSION: 1. Septic shock. 2. Status post colostomy for sigmoid abscess. 3. Multiple drains for fluid collection in the abdomen. 4. Status post G-tube. 5. Vent dependent respiratory failure. 6. 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 7. Large pleural effusion on the left side and loculated effusion on the right side. 8. Bibasilar pulmonary infiltrates. 9. Enterocolitis. PLAN: Appropriate antibiotic. IV hydration. All the supportive care. Continue with the G-tube feeding for nutritional support. Thoracocentesis as per the paper wrapping machine operator. Antibiotics as per ID. The patient may need a pressor support after appropriate or with hydration. Will follow. Dictated By: Sudhir Smith MD /rhina/emeka /Document#: [id number]
[2016-11-13] MEDS: MIDODRINE 5 MG TAB PO SCH (21:28)
[2016-11-13] MEDS: FAMOTIDINE 20 MG TAB PO SCH (21:28)
[2016-11-13] MEDS ORDERED: MEROPENEM 2 GM in SOD CHLORIDE 0.9% 100 ML IVPB SCH (22:00)
[2016-11-13] MEDS: MEROPENEM 500MG/50 ML (PMX) 50 ML IVPB SCH (22:29)
[2016-11-13 23:08] VITALS: TEMP 97.8
[2016-11-14] VITALS (96 sets, daily range): BP systolic 63–125; BP diastolic 15–76; PULSE 77–97; RESP 9–38; Ht 157.5 cm; Wt 69.8 kg
[2016-11-14] MEDS ORDERED: SOD CHLORIDE 0.9% 500 ML IV STA (00:19)
[2016-11-14] MEDS: SOD CHLORIDE 0.9% 1,000 ML IV SCH ×2 (01:00→04:32)
[2016-11-14] MEDS: NORepinephrine 8MG/250 ML (PMX 250 ML IV SCH (04:35)
[2016-11-14] MEDS ORDERED: VANCOMYCIN 1 GM in NS 250 ML IVPB SCH (05:00)
[2016-11-14] MEDS ORDERED: ALBUMIN HUMAN 5% 250 ML IV ONE (05:00)
[2016-11-14] MEDS ORDERED: SOD CHLORIDE 0.9% 500 ML IV ONE (05:00)
--- NOTE | 2016-11-14 06:39 | RADRPT ---
PROCEDURE: US guidance for PICC line CLINICAL INDICATION: PICC line placement TECHNIQUE: Multiple real-time images were acquired of the patient's arm utilizing a high resolutio n transducer. This was performed by the PICC line nurse for venous access. COMPARISON: None FINDINGS: Ultrasound guidance for PICC line placement. IMPRESSION: Ultrasound guidance for PICC line placement. RPTAT: AA .Ron Schwartz MD, MD Date Time Electronically viewed and signed by .Ron Schwartz MD, on 11/14/2016 06:39 .S/
[2016-11-14 07:58] LABS: ABNORMAL IP MESSAGE 1; BASOPHIL # 0.1 10^3/ul (0.0-0.1); BASOPHILS % 0.6 % (0.0-2.0); EOSINOPHILS # 0.2 10^3/ul (0.0-0.5); EOSINOPHILS % 1.1 % (0.0-7.0); HEMATOCRIT 27.4 % (37.0-47.0); LYMPHOCYTES # 1.2 10^3/ul (0.8-2.9); LYMPHOCYTES % 5.8 % (15.0-51.0); MEAN CORPUSCULAR HEMOGLOBIN 29.1 pg (29.0-33.0); MEAN CORPUSCULAR HGB CONC 32.8 g/dl (32.0-37.0); MEAN CORPUSCULAR VOLUME 88.7 fl (82.0-101.0); MEAN PLATELET VOLUME 10.6 fl (7.4-10.4); MONOCYTE # 1.3 10^3/ul (0.3-0.9); MONOCYTES % 6.7 % (0.0-11.0); NEUTROPHILS % 77.9 % (39.0-77.0); NUCLEATED RED BLOOD CELLS # 0.2 10^3/ul (0.0-0.0); NUCLEATED RED BLOOD CELLS% 0.9 /100WBC (0.0-0.0); PLATELET COUNT 337 10^3/UL (140-415); RED BLOOD COUNT 3.09 10^6/ul (4.20-5.40); RED CELL DISTRIBUTION WIDTH 16.8 % (11.5-14.5); WHITE BLOOD COUNT 19.9 10^3/ul (4.8-10.8)
[2016-11-14 08:01] LABS: POSITIVE DIFF @See below
[2016-11-14] MEDS: MEROPENEM 500MG/50 ML (PMX) 50 ML IVPB SCH (08:20)
--- NOTE | 2016-11-14 08:28 | CONS ---
DATE OF ADMISSION: 11/13/2016 DATE OF CONSULTATION: 11/14/2016 REASON FOR CONSULTATION: Acute kidney injury. REQUESTING PHYSICIAN: Dr. Fisher. HISTORY OF PRESENT ILLNESS: This is a 71-year-old female with a past medical history that dates back to September at [facility] where patient, was admitted for sigmoid abscess. She underwent a sigmoid colectomy, ended up with colostomy, Helio's procedure. The patient had a long hospital course complicated with sepsis, colon perforation, multiple abscess, fluid collection warranting drainage and drain placement, recurrent respiratory failure and trach placement. The patient was eventually transferred to [facility], but was transferred back to [facility] due to shock. The patient was also noted to be anemic with hemoglobin 6.8, was given 1 unit of blood transfusion. Upon arrival to the emergency room at [facility], the patient had a CT scan of the abdomen and pelvis, which showed a large left pleural effusion and pulmonary consolidation, diffuse bowel edema. The patient was placed on presser support IV antibiotics. Admitted to intensive care unit. While in intensive care unit, the patient has been critical. In terms of patient's renal history, the patient previously during her stay in September had acute kidney injury, which resolved. The patient now is noted to have minimal urinary output. There have been no reports of hemoptysis, hematemesis, hematochezia. PAST MEDICAL HISTORY: As stated above. History of brain hemorrhage, history of perforated diverticulitis, history of respiratory failure. PAST SURGICAL HISTORY: Status post trach, status post PEG, status post colostomy. FAMILY HISTORY: Noncontributory. SOCIAL HISTORY: Does not drink, smoke, or do drugs. MEDICATIONS: Reviewed. REVIEW OF SYSTEMS: Unable to do adequate review of systems, patient is altered. Pertinent positives obtained by reviewing medical records, speaking to hospital staff, as stated in HPI, otherwise negative. PHYSICAL EXAMINATION: VITAL SIGNS: Blood pressure 92/68, respirations 28, pulse 91, temperature 98.6. HEENT: Head is normocephalic. NECK: Supple. HEART: Regular rate. LUNGS: Showed diminished breath sounds at the base. ABDOMEN: Soft, nontender to palpation. Positive colostomy. EXTREMITIES: Negative for clubbing, cyanosis. Trace edema. DERMATOLOGIC: Clean. No rashes. MUSCULOSKELETAL: No joint effusions. NEUROLOGIC: Limited exam. LABORATORY: Shows sodium 133, potassium 3.8, BUN 53, creatinine 1.05. Lactic acid 6.1. The patient's urinalysis shows 85 WBCs, 64 RBCs, positive bacteria, positive protein. Chest x-ray was reviewed, shows bilateral lung infiltrates with mild vascular congestion. IMPRESSION AND PLAN: This is a 71-year-old female who presents with: 1. Nonoliguric acute kidney injury with previous baseline creatinine of 0.7 mg/dL. Etiology of acute kidney injury is likely secondary to sepsis, hemodynamics, possible tubular injury. The patient's urinalysis was reviewed, which showed evidence of pyuria, hematuria, proteinuria. This may be secondary to a urinary infection. At this point, would repeat urinalysis. We will check urine electrolytes. Would continue current treatment plan. Continue pressor support, intravenous fluids, intravenous antibiotics and monitor renal function closely. 2. Hyponatremia secondary to acute kidney injury, decreased free water urinary excretion. Continue to monitor. 3. Metabolic acidosis secondary to lactic acidosis. Etiology secondary to sepsis. Continue to treat underlying source. Monitor. 4. Anemia. Monitor H and H levels. 5. Mineral bone disorder. Monitor calcium and phosphorus levels. 6. Ventilatory-dependent respiratory failure. Vent settings reviewed. ABGs reviewed. 7. Septic shock with disseminated cryptococcus. Continue broad- spectrum antifungal therapy, antibiotics. Continue pressor support. Follow up with Infectious Disease. 8. Ventriculoperitoneal shunt, status post externalization with ligation. 9. Status post perforated colon repair with a colostomy, status post intra-abdominal abscess drainage. Thank you, Dr. Fisher, for this interesting consult. It will be a pleasure to follow patient with you throughout the hospital course. Dictated By: Agustin Sanchez DO /rhina/ananda /Document#: [id number]
[2016-11-14] MEDS: MIDODRINE 5 MG TAB PO SCH ×2 (08:29→20:47)
[2016-11-14] MEDS: FLUCONAZOLE 200 MG TAB PO SCH (08:29)
[2016-11-14] MEDS: LANSOPRAZOLE 30 MG CAP GTB SCH (08:30)
[2016-11-14 08:31] LABS: ALBUMIN/GLOBULIN RATIO 0.52; CALCIUM 9.1 mg/dl (8.4-10.2); CREATININE 1.05 mg/dl (0.44-1.00); POTASSIUM 3.8 mmol/L (3.5-5.1); TOTAL PROTEIN 5.8 g/dl (6.1-8.1)
--- NOTE | 2016-11-14 08:34 | PN ---
Date/Time of Note Date/Time of Note DATE: 11/14/16 TIME: 08:28 Assessment/Plan Lines/Catheters IV Catheter Type (from Nrs): PICC Line Shore in Place (from Nrs): Yes Assessment/Plan Assessment/Plan [facility] Progress Note Date of Service: 11/14/2016 Place of service: [facility] ICU Today's Assessment & Plan: Septic shock with tachypnea. Large L pleural effusion likely contributing. Abd remains benign. R perihepatic drain can likely d/c. D/w ex- and team. With above assessment, I recommended the following for today: 1. Consider L pleural tap 2. ? need for bronchoscopy 3. Cont antimicrobial therapy and check for culture updates with targeted management of antimicrobials 4. ? Red-man syndrome from Vanco 5. Please hold off on IV contrast imaging. No new information will be gained and we have a recent CT Thank you again for your great care of this very pleasant patient and wonderful family. If there are any questions, please feel free to call me at [phone]. Nature of presenting problem: High severity Please note that, given the extensive number of diagnoses or management options , the extensive amount and/or complexity of data needed to be reviewed, and I risk of complications and/or morbidity or mortality, this qualifies as high complexity type of decision-making. Disclaimer: Inadvertent spelling and grammatical errors are likely due to EHR/ dictation software use and do not reflect on the quality of delivered patient care. Also, please note that the electronic time recorded on this node does not necessarily reflect the actual time of the visit. 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 S/p IR drainage 09/09/16 with removal of 20 cc pus and placement of a 10 Fr. pigtail catheter at [facility]. D/c home 09/12/16. Re-presented to [place] ED 09/15/16 after being diverted from [facility] (due to internal disaster diversion) where CT was done showing adequate placement of the percutaneous drain near the sigmoid colon and decompressed sigmoid colon abscess, no obvious free air or significant spillage of stool in the abdominal cavity, and incidental finding of tail of the MAKING DEPARTMENT PREPARER shunt in the pelvis (new from right upper quadrant position of the same drain on the CT scan at [facility]). Transfer to [facility] 09/15/2016 for further cares. S/p upsizing of drain to 12 Fr pigtail on 09/17/16 (communication with colon demonstrated; no obvious free communication to rest of peritoneal space). Patient decompensated in the early hours of the morning on 09/21/2016 and had to be transferred to the intensive care unit with need for endotracheal tube intubation, central line placement, and resuscitation for treatment of shock with lactic acidosis and evidence of peritonitis and free air on the new chest, abdomen, and pelvis CT scan. S/p a rather challenging sigmoid colectomy with performance of end colostomy (Reid's procedure), takedown of splenic flexure of the colon, lysis of adhesions (60 minutes), and abdominal lavage at [facility] on 09/21/16; diagnosis of colon ischemia (distal transverse colon and descending colon) during reentry through recent laparotomy incision with exploration of abdominal cavity, takedown of colostomy, completion left hemicolectomy with resection of distal transverse colon, lysis of adhesions, abdominal lavage, performance of an end colostomy [facility] 09/24/16. Extubated post op evening of 09/25/16. Decompensation with intubation and restart of pressors . Right-sided pneumothorax after drainage of right pleural effusion requiring chest tube placement 09/30/2016. Extubated 10/03/2016. Decompensation with reintubation 10/06/16. Tracheostomy and PEG placed. Perihepatic fluid collections drained 10/13/2016. Cryptococcal antigen found in the urine 2016. Antifungal therapy started. S/p new perc drain perihepatic 10/23/16. Transferred out of the ICU to telemetry on 11/01/2016. Dc'd from [facility] to [place], and then readmitted to [facility] 11/13/16 with septic shock. Comorbidities: 1. Perforated sigmoid colon (see below) 2. Status post ventriculoperitoneal shunt placement. 3. Status post prior hysterectomy and bilateral salpingo-oophorectomy through Pfannenstiel incision 4. S/p IR drainage 09/09/16 with removal of 20 cc pus and placement of a 10 Fr. pigtail catheter at [facility]. 5. Readmission to [facility] 09/15/16 with upsizing of drain to 12 Fr pigtail on (communication with colon demonstrated; no obvious free communication to rest of peritoneal space). Septic shock with multiorgan failure 09/21/2016 requiring ICU admission with intubation and pressors. 6. S/p a rather challenging sigmoid colectomy with performance of end colostomy (Reid's procedure), takedown of splenic flexure of the colon, lysis of adhesions (60 minutes), and abdominal lavage at [facility] on 09/21/16 7. Colon ischemia (distal transverse colon and descending colon) 8. S/p reentry through recent laparotomy incision with exploration of abdominal cavity, takedown of colostomy, completion left hemicolectomy with resection of distal transverse colon, lysis of adhesions, abdominal lavage, performance of an end colostomy [facility] 09/24/16 9. Stage I/II decubitus pressure ulcers (10/11/2016 [facility] ICU) Subjective: Remain on a ventilator with tracheostomy. Low BP requiring pressor. Tachypneic. Not very interactive on a purposeful way, but also no evidence of obvious neurologic deficits. Objective: Vitals: See below I's & O's: See below Exam: GENERAL: On exam, the patient was lying in bed and appeared to be breathing comfortably on the vent. No obvious acute distress. Appears less emaciated. Red all over. ABDOMEN: Soft, nontender and nondistended. Incisions are clean, dry and intact without any obvious evidence of underlying erythema, edema, discharge, or hernia. There are no peritoneal signs or guarding. Ostomy appears to be viable and productive with stool and air in the bag. Skin around the ostomy is pink. Perihepatic drains showing pus and minimal ss output. No bile. SKIN: Skin appears to be pink and feels warm to touch. NEUROLOGIC: Patient is awake, alert, and does not follow simple commands. Appeared to attempt to answer back and did answer yes/no questions. Remains on the ventilator with tracheostomy tube. Labs: See below Exam/Review of Systems Vital Signs Vitals Vital Signs Date Time Temp Pulse Resp B/P Pulse Ox O2 Delivery O2 Flow Rate FiO2 11/14/16 06:30 91 28 92/62 93 11/14/16 05:01 30 11/14/16 04:00 97.2 11/13/16 23:08 Mechanical Ventilator Intake and Output 11/13/16 11/13/16 11/14/16 15:00 23:00 07:00 Intake Total 1822 ml Output Total 205 ml Balance 1617 ml Results Result Diagram: 11/14/16 0733 11/13/16 1420 ALEXSANDER DUARTE M.D. Nov 14, 2016 08:34
[2016-11-14] MEDS ORDERED: DEXTROSE 50% 50 ML SYRINGE ONE (08:45)
[2016-11-14] MEDS ORDERED: ENOXAPARIN 40 MG/0.4 ML SYG SC SCH (09:00)
[2016-11-14] MEDS ORDERED: LORATADINE 10 MG TAB PO SCH (09:00)
[2016-11-14] MEDS ORDERED: DEXTROSE 50% 50 ML SYRINGE IV PRN ×3 (09:00→23:30)
[2016-11-14] MEDS ORDERED: DEXTROSE 50% 50 ML SYRINGE IV ONE ×2 (09:00→17:00)
--- NOTE | 2016-11-14 10:17 | CONS ---
Date/Time of Note Date/Time of Note DATE: 11/14/16 TIME: 10:09 Assessment/Plan Assessment/Plan Additional Assessment/Plan Ventilator setting; AC of 12, tidal volume 450, PEEP of 5, 30% FiO2. Patient currently on Levophed at 16 mics per minute. Chest x-ray was reviewed from yesterday which is showing bilateral alveolar infiltrates. Assessment and recommendations; 1. Patient admitted for recurrent sepsis which likely is from bilateral pneumonia again. Currently on appropriate antibiotic regimen. 2. History of recent bowel surgery requiring prolonged hospital stay ultimately requiring a tracheostomy for chronic respiratory failure. 3. History of recent severe anemia and thrombocytopenia that precluded anticoagulation for right upper extremity DVT. Patient however has now has adequate platelet count and has been started on Lovenox. 4. Severe deconditioning and cachexia. 5. History of right pneumothorax which was iatrogenic after undergoing a right thoracentesis, chest tube has not been removed for quite some time now without any evidence of any pneumothorax on the right side. Next Continue current supportive care. Taper pressors as tolerated. I did have a discussion the patient's boyfriend at bedside and answered all his questions. Prognosis remains guarded on account of multiple comorbidities. 35 minutes of critical care time was spent evaluating the patient. Consultation Date/Type/Reason Admit Date/Time Date of Consultation: Nov 14, 2016 Type of Consultation: Pulmonary/critical care Reason for Consultation Patient admitted to [facility] ICU transferred over from [facility] because of hypotension. She did not is well-known to our service during due to prolonged recent stay at [facility] as well as follow-up at [facility]. Patient was doing fairly well at [facility] and was weaned off from invasive Ventilation and was on tracheal T piece however last evening the patient became hypotensive and had to be transferred to ICU. The patient also has been adequately fluid resuscitated and despite that is now requiring pressor support for blood pressure maintenance. Also now exhibiting increasing leukocytosis as well as bilateral pulmonary infiltrates suggestive of pneumonia. By the time I saw the patient in ICU the patient is on ventilator via tracheostomy is awake and fairly alert. Patient has had a history of prolonged hospital stay due to bowel surgery requiring partial bowel resection with colostomy. Her hospital course also was complicated by prolonged invasive mechanical ventilation ultimately requiring a tracheostomy. Course also was complicated by severe bilateral pneumonia, right upper extremity DVT. As well as right pneumothorax after patient underwent thoracentesis however the chest tube has now been removed for quite some time now. Next General exam; elderly woman, on ventilator via tracheostomy, awake, currently in no distress. Past Surgical History Past Surgical Hx: bowel resection Social History Smoking Status: Never smoker Exam/Review of Systems Vital Signs Vitals Vital Signs Date Time Temp Pulse Resp B/P Pulse Ox O2 Delivery O2 Flow Rate FiO2 11/14/16 09:30 91 21 112/43 94 Mechanical Ventilator Trach Collar 11/14/16 08:00 97.4 11/14/16 08:00 30 Intake and Output 11/13/16 11/13/16 11/14/16 15:00 23:00 07:00 Intake Total 1822 ml Output Total 220 ml Balance 1602 ml Exam HEENT exam; supple neck, no JVD. No lymphadenopathy. Midline trachea. No thyromegaly. Tracheostomy in place. Patient has multiple carious teeth. Pupils are small bilaterally. Chest exam; scattered crackles bilaterally. S1-S2 audible, no murmurs. Regular rhythm. Abdomen exam; soft, G-tube in place. Colostomy in place. There is a right upper quadrant drain in place. Bowel sounds are sluggish. Extremity exam; generalized anasarca. GEOSPATIAL SPECIALIST exam; patient is awake but is exhibiting profound generalized weakness. Results Result Diagram: 11/14/16 0733 11/14/1633 Results 24 hrs Laboratory Tests Test 11/13/16 14:20 11/13/16 17:40 11/13/16 20:50 11/14/16 07:33 White Blood Count 16.9 H 19.9 H Red Blood Count 3.13 L 3.09 L Hemoglobin 9.2 L 9.0 L Hematocrit 28.1 L 27.4 L Mean Corpuscular Volume 89.8 88.7 Mean Corpuscular Hemoglobin 29.4 29.1 Mean Corpuscular Hemoglobin Concent 32.7 32.8 Red Cell Distribution Width 16.7 H 16.8 H Platelet Count 331 337 Mean Platelet Volume 10.4 10.6 H Neutrophils % 77.9 H Segmented Neutrophils % (Manual) 69 Band Neutrophils % (Manual) 11 H Lymphocytes % 5.8 L Lymphocytes % (Manual) 8 L Monocytes % 6.7 Monocytes % (Manual) 8 Eosinophils % 1.1 Eosinophils % (Manual) 1 Basophils % 0.6 Metamyelocytes % (manual) 2 H Promyelocytes % (Manual) 1 H Nucleated Red Blood Cells % 0.3 H 0.9 H Neutrophils # (Manual) 12.0 H 15.5 H Band Neutrophils # 1.8 H Absolute Lymphocytes (Manual) 1.3 Lymphocytes # 1.4 1.2 Monocytes # 1.4 H 1.3 H Absolute Monocytes (Manual) 1.3 H Eosinophils # 0.2 0.2 Basophils # 0.1 Metamyelocytes # 0.3 H Promyelocytes # 0 Nucleated Red Blood Cells # 0.2 H Prothrombin Time 19.3 H Prothrombin Time Ratio 1.5 INR International Normalized Ratio 1.61 Activated Partial Thromboplast Time 34.9 Sodium Level 133 L 138 Potassium Level 3.8 3.8 Chloride Level 103 108 Carbon Dioxide Level 22 21 Anion Gap 12 13 Blood Urea Nitrogen 53 H 51 H Creatinine 1.05 H 1.05 H Glucose Level 125 33 #*L Lactic Acid Level 6.1 *H 5.2 *H 4.6 *H Calcium Level 8.8 9.1 Total Bilirubin 0.0 L 0.0 L Direct Bilirubin 0.00 0.00 Indirect Bilirubin 0.0 0.0 Aspartate Amino Transf (AST/SGOT) 35 58 H Alanine Aminotransferase (ALT/SGPT) 35 36 Alkaline Phosphatase 672 H 868 H Troponin I < 0.012 Total Protein 5.6 L 5.8 L Albumin 1.8 L 2.0 L Globulin 3.80 H 3.80 H Albumin/Globulin Ratio 0.47 0.52 Urine Color JACINTO Urine Clarity CLOUDY A Urine pH 6.0 Urine Specific [place] 1.042 H Urine Ketones NEGATIVE Urine Nitrite NEGATIVE Urine Bilirubin NEGATIVE Urine Urobilinogen NEGATIVE Urine Leukocyte Esterase 1+ H Urine Microscopic RBC 64 H Urine Microscopic WBC 85 H Urine Squamous Epithelial Cells FEW Urine Bacteria FEW A Urine Mucus FEW A Urine Hemoglobin 1+ H Urine Glucose 2+ H Urine Total Protein 2+ H Test 11/14/16 08:46 11/14/16 08:57 11/14/16 09:18 Bedside Glucose 39 *L 156 99 Medications Medications Current Medications Vancomycin HCl (Vancocin) 250 ml @ 125 mls/hr Q36H IVPB Last administered on t 06:13; Admin Dose 125 MLS/HR; Start 11/14/16 at 05:00 Famotidine 20 mg 20 mg HS PO Last administered on 11/13/16 21:28; Admin Dose 20 MG; Start 11/13/16 at 21:00 Norepinephrine/ Dextrose (Levophed/D5W) 500 ml @ 1.875 mls/ hr TITRATE IV ; Start 11/13/16 at 17:30 IV Flush (NS 10 ml) 10 ml PRN PRN IV FLUSH LINE; Start 11/13/16 at 17:30 Fluconazole (Diflucan) 1,200 mg DAILY PO Last administered on 11/14/16 08:29; Admin Dose 1,200 MG; Start 11/14/16 at 09:00 Albuterol (Ventolin Hfa) 2 puff Q4H PRN INH SHORTNESS OF BREATH; Start 11/13/16 at 18:00 Loratadine (Claritin) 10 mg DAILY PO Last administered on 11/14/16 08:29; Admin Dose 10 MG; Start 11/14/16 at 09:00 Lansoprazole (Prevacid) 30 mg DAILY GTB Last administered on 11/14/16 08:30; Admin Dose 30 MG; Start 11/14/16 at 09:00 Acetaminophen/ Hydrocodone Bitart 1 tab 1 tab Q4H PRN PO pain Last administered on 11/13/16 21:34; Admin Dose 1 TAB; Start 11/13/16 at 18:00 Meropenem/Sodium Chloride (Merrem 500mg/50 ml(Pmx)) 50 ml @ 200 mls/hr Q8 IVPB Last administered on 11/14/16 08:20; Admin Dose 200 MLS/HR; Start 11/13/16 at 22:00 Midodrine 5 mg 5 mg BID PO Last administered on 11/14/16 08:29; Admin Dose 5 MG ; Start 11/13/16 at 21:00 Sodium Chloride (NS) 1,000 ml @ 80 mls/hr [id number] IV Last administered on 04:32; Admin Dose 80 MLS/HR; Start 11/14/16 at 00:30 Dextrose (D50w Syringe) 50 ml ONCE PRN IV BG LESS THAN 60; Start 11/14/16 at 09: 00; Stop 11/14/16 at 15:00 GERARDO JUSTICE Nov 14, 2016 10:17
--- NOTE | 2016-11-14 11:41 | CONS ---
Date/Time of Note Date/Time of Note DATE: 11/14/16 TIME: 11:34 Assessment/Plan Assessment/Plan Additional Assessment/Plan IMPRESSION: 1. Septic shock. 2. Status post colostomy for sigmoid abscess. 3. Multiple drains for fluid collection in the abdomen. 4. Status post G-tube. 5. Vent dependent respiratory failure. 6. 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 7. Large pleural effusion on the left side and loculated effusion on the right side. 8. Bibasilar pulmonary infiltrates. 9. Enterocolitis. 10. Upper extremity DVT 11. High alkaline phosphatase Plan Continue antibiotic. Continue pressure support Resume G-tube feeding as per the dietitian and will start slowly Continue all supportive care. Patient clinically looks better than yesterday Aspiration precaution Consultation Date/Type/Reason Admit Date/Time Nov 13, 2016 at 16:56 Initial Consult Date 11/14/16 Type of Consultation: Pulmonary/critical care 24 HR Interval Summary Subjective hx not possible: pt non-verbal, pt critical Constitutional: improved Exam/Review of Systems Vital Signs Vitals Vital Signs Date Time Temp Pulse Resp B/P Pulse Ox O2 Delivery O2 Flow Rate FiO2 11/14/16 10:30 82 30 109/60 95 Mechanical Ventilator Trach Collar 11/14/16 08:00 97.4 11/14/16 08:00 30 Intake and Output 11/13/16 11/13/16 11/14/16 15:00 23:00 07:00 Intake Total 1930.125 ml Output Total 220 ml Balance 1710.125 ml Exam Respiratory: other (Patient is on vent) Cardiovascular: nl pulses, regular rate and rhythm Gastrointestinal: nl liver, spleen, non-tender, other (Has G-tube and a colostomy bag. Colostomy bag functional normal color stool), soft Extremities: normal pulses Skin: rash or lesions (Redness of the skin and also peeling of the skin mostly from drug reaction) Results Result Diagram: 11/14/16 0733 11/14/16 0733 Results 24 hrs Laboratory Tests Test 11/13/16 14:20 11/13/16 17:40 11/13/16 20:50 11/14/16 07:33 White Blood Count 16.9 H 19.9 H Red Blood Count 3.13 L 3.09 L Hemoglobin 9.2 L 9.0 L Hematocrit 28.1 L 27.4 L Mean Corpuscular Volume 89.8 88.7 Mean Corpuscular Hemoglobin 29.4 29.1 Mean Corpuscular Hemoglobin Concent 32.7 32.8 Red Cell Distribution Width 16.7 H 16.8 H Platelet Count 331 337 Mean Platelet Volume 10.4 10.6 H Neutrophils % 77.9 H Segmented Neutrophils % (Manual) 69 Band Neutrophils % (Manual) 11 H Lymphocytes % 5.8 L Lymphocytes % (Manual) 8 L Monocytes % 6.7 Monocytes % (Manual) 8 Eosinophils % 1.1 Eosinophils % (Manual) 1 Basophils % 0.6 Metamyelocytes % (manual) 2 H Promyelocytes % (Manual) 1 H Nucleated Red Blood Cells % 0.3 H 0.9 H Neutrophils # (Manual) 12.0 H 15.5 H Band Neutrophils # 1.8 H Absolute Lymphocytes (Manual) 1.3 Lymphocytes # 1.4 1.2 Monocytes # 1.4 H 1.3 H Absolute Monocytes (Manual) 1.3 H Eosinophils # 0.2 0.2 Basophils # 0.1 Metamyelocytes # 0.3 H Promyelocytes # 0 Nucleated Red Blood Cells # 0.2 H Prothrombin Time 19.3 H Prothrombin Time Ratio 1.5 INR International Normalized Ratio 1.61 Activated Partial Thromboplast Time 34.9 Sodium Level 133 L 138 Potassium Level 3.8 3.8 Chloride Level 103 108 Carbon Dioxide Level 22 21 Anion Gap 12 13 Blood Urea Nitrogen 53 H 51 H Creatinine 1.05 H 1.05 H Glucose Level 125 33 #*L Lactic Acid Level 6.1 *H 5.2 *H 4.6 *H Calcium Level 8.8 9.1 Total Bilirubin 0.0 L 0.0 L Direct Bilirubin 0.00 0.00 Indirect Bilirubin 0.0 0.0 Aspartate Amino Transf (AST/SGOT) 35 58 H Alanine Aminotransferase (ALT/SGPT) 35 36 Alkaline Phosphatase 672 H 868 H Troponin I < 0.012 Total Protein 5.6 L 5.8 L Albumin 1.8 L 2.0 L Globulin 3.80 H 3.80 H Albumin/Globulin Ratio 0.47 0.52 Urine Color JACINTO Urine Clarity CLOUDY A Urine pH 6.0 Urine Specific [place] 1.042 H Urine Ketones NEGATIVE Urine Nitrite NEGATIVE Urine Bilirubin NEGATIVE Urine Urobilinogen NEGATIVE Urine Leukocyte Esterase 1+ H Urine Microscopic RBC 64 H Urine Microscopic WBC 85 H Urine Squamous Epithelial Cells FEW Urine Bacteria FEW A Urine Mucus FEW A Urine Hemoglobin 1+ H Urine Glucose 2+ H Urine Total Protein 2+ H Test 11/14/16 08:46 11/14/16 08:57 11/14/16 09:18 Bedside Glucose 39 *L 156 99 Medications Medications Current Medications Vancomycin HCl (Vancocin) 250 ml @ 125 mls/hr Q36H IVPB Last administered on 06:13; Admin Dose 125 MLS/HR; Start 11/14/16 at 05:00 Famotidine 20 mg 20 mg HS PO Last administered on 11/13/16 21:28; Admin Dose 20 MG; Start 11/13/16 at 21:00 Norepinephrine/ Dextrose (Levophed/D5W) 500 ml @ 1.875 mls/ hr TITRATE IV ; Start 11/13/16 at 17:30 IV Flush (NS 10 ml) 10 ml PRN PRN IV FLUSH LINE; Start 11/13/16 at 17:30 Fluconazole (Diflucan) 1,200 mg DAILY PO Last administered on 11/14/16 08:29; Admin Dose 1,200 MG; Start 11/14/16 at 09:00 Albuterol (Ventolin Hfa) 2 puff Q4H PRN INH SHORTNESS OF BREATH; Start 11/13/16 at 18:00 Loratadine (Claritin) 10 mg DAILY PO Last administered on 11/14/16 08:29; Admin Dose 10 MG; Start 11/14/16 at 09:00 Lansoprazole (Prevacid) 30 mg DAILY GTB Last administered on 11/14/16 08:30; Admin Dose 30 MG; Start 11/14/16 at 09:00 Acetaminophen/ Hydrocodone Bitart 1 tab 1 tab Q4H PRN PO pain Last administered on 11/13/16 21:34; Admin Dose 1 TAB; Start 11/13/16 at 18:00 Meropenem/Sodium Chloride (Merrem 500mg/50 ml(Pmx)) 50 ml @ 200 mls/hr Q8 IVPB Last administered on 11/14/16 08:20; Admin Dose 200 MLS/HR; Start 11/13/16 at 22:00 Midodrine 5 mg 5 mg BID PO Last administered on 11/14/16 08:29; Admin Dose 5 MG ; Start 11/13/16 at 21:00 Sodium Chloride (NS) 1,000 ml @ 80 mls/hr [id number] IV Last administered on 04:32; Admin Dose 80 MLS/HR; Start 11/14/16 at 00:30 Dextrose (D50w Syringe) 50 ml ONCE PRN IV BG LESS THAN 60; Start 11/14/16 at 09: 00; Stop 11/14/16 at 15:00 LUIS CARLOS SOTEOL MD Nov 14, 2016 11:40
[2016-11-14] MEDS: BALSAM PERU/CASTOR OIL 60 GM TUBE TOP SCH (13:30)
[2016-11-14] MEDS: NYSTATIN 30 GM POWDER BTL TOP SCH ×2 (13:30→20:47)
[2016-11-14] MEDS: LORATADINE 10 MG TAB PO SCH (14:00)
--- NOTE | 2016-11-14 14:25 | PN ---
Date/Time of Note Date/Time of Note DATE: 11/14/16 TIME: 14:20 Assessment/Plan VTE Prophylaxis VTE Prophylaxis Intervention: SCD's Lines/Catheters IV Catheter Type (from [facility]): PICC Line Central line still needed: Yes Urinary Cath still in place: Yes Reason Cath still needed: other (indicate) (critically ill) Assessment/Plan Assessment/Plan 71 yo F with present prolonged stay at [facility] mid September-->end of October for sigmoid abscess for which she underwent sigmoid colectomy with end colostomy with adhesiolysis. Hospital stay was complicated sepsis, colon perforation with multiple abd fluid collections warranting drainage and drain placement, also recurrent respiratory failure warranting trach, pleural effusion with thora c/b by PTX, paroxysmal AFib, as well as diagnosis of cryptococcal pneumonia. She was transferred back to the hospital from [facility] for hypotension and leukocytosis. Labs here also reveal lactic acidosis. This clinical picture is concerning for septic shock, though source unclear. Possibly pna given CT findings, no evidence of intraabdominal infection at this time. CV: pressor support, hold previous BP meds (aldactone, bumex) -cont midodrine Pulm: pulm consult for help with vent management consider thora, per notes does not appear pulm believes this to be indicated at this time cont DAVI ID: ID consult for antimicrobial assistance-->cont debbie,diflucan -Vanc on hold given concern for ?red man sx? -CDiff negative GI/biliary: general surgeon following Heme: monitor anemia, transfuse for hgb <7 FEN: cont tube feeds Prophx:SCDs LMWH, PPI, pain meds critical care time: 30 minutes Subjective 24 Hr Interval Summary Free Text/Dictation Pt hyoglycemic this AM most likely bc tube feeds not resumed overnight for unknown reason Exam/Review of Systems Vital Signs Vitals Vital Signs Date Time Temp Pulse Resp B/P Pulse Ox O2 Delivery O2 Flow Rate FiO2 11/14/16 13:30 84 28 87/60 96 Mechanical Ventilator 11/14/16 11:45 97.4 11/14/16 08:00 30 Intake and Output 11/13/16 11/13/16 11/14/16 15:00 23:00 07:00 Intake Total 1930.125 ml Output Total 220 ml Balance 1710.125 ml Exam trached coarse breath sounds no mrg abd soft +anasarca Results Result Diagram: 11/14/16 0733 11/14/16 0733 Results 24 hrs Laboratory Tests Test 11/13/16 17:40 11/13/16 20:50 11/14/16 07:33 11/14/16 08:46 Urine Color JACINTO Urine Clarity CLOUDY A Urine pH 6.0 Urine Specific [place] 1.042 H Urine Ketones NEGATIVE Urine Nitrite NEGATIVE Urine Bilirubin NEGATIVE Urine Urobilinogen NEGATIVE Urine Leukocyte Esterase 1+ H Urine Microscopic RBC 64 H Urine Microscopic WBC 85 H Urine Squamous Epithelial Cells FEW Urine Bacteria FEW A Urine Mucus FEW A Urine Hemoglobin 1+ H Urine Glucose 2+ H Urine Total Protein 2+ H Lactic Acid Level 5.2 *H 4.6 *H White Blood Count 19.9 H Red Blood Count 3.09 L Hemoglobin 9.0 L Hematocrit 27.4 L Mean Corpuscular Volume 88.7 Mean Corpuscular Hemoglobin 29.1 Mean Corpuscular Hemoglobin Concent 32.8 Red Cell Distribution Width 16.8 H Platelet Count 337 Mean Platelet Volume 10.6 H Neutrophils % 77.9 H Lymphocytes % 5.8 L Monocytes % 6.7 Eosinophils % 1.1 Basophils % 0.6 Nucleated Red Blood Cells % 0.9 H Neutrophils # (Manual) 15.5 H Lymphocytes # 1.2 Monocytes # 1.3 H Eosinophils # 0.2 Basophils # 0.1 Nucleated Red Blood Cells # 0.2 H Sodium Level 138 Potassium Level 3.8 Chloride Level 108 Carbon Dioxide Level 21 Anion Gap 13 Blood Urea Nitrogen 51 H Creatinine 1.05 H Glucose Level 33 #*L Calcium Level 9.1 Total Bilirubin 0.0 L Direct Bilirubin 0.00 Indirect Bilirubin 0.0 Aspartate Amino Transf (AST/SGOT) 58 H Alanine Aminotransferase (ALT/SGPT) 36 Alkaline Phosphatase 868 H Total Protein 5.8 L Albumin 2.0 L Globulin 3.80 H Albumin/Globulin Ratio 0.52 Bedside Glucose 39 *L Test 11/14/16 08:57 11/14/16 09:18 Bedside Glucose 156 99 Medications Medications Current Medications Famotidine 20 mg 20 mg HS PO Last administered on 11/13/16t 21:28; Admin Dose 20 MG; Start 11/13/16 at 21:00 Norepinephrine/ Dextrose (Levophed/D5W) 500 ml @ 1.875 mls/ hr TITRATE IV Last administered on 11/14/16 11:49; Admin Dose 30.3 MLS/HR; Start 11/13/16 at 17 :30 IV Flush (NS 10 ml) 10 ml PRN PRN IV FLUSH LINE; Start 11/13/16 at 17:30 Fluconazole (Diflucan) 1,200 mg DAILY PO Last administered on 11/14/16 08:29; Admin Dose 1,200 MG; Start 11/14/16 at 09:00 Albuterol (Ventolin Hfa) 2 puff Q4H PRN INH SHORTNESS OF BREATH; Start 11/13/16 at 18:00 Loratadine (Claritin) 10 mg DAILY PO Last administered on 11/14/16 08:29; Admin Dose 10 MG; Start 11/14/16 at 09:00 Lansoprazole (Prevacid) 30 mg DAILY GTB Last administered on 11/14/16 08:30; Admin Dose 30 MG; Start 11/14/16 at 09:00 Acetaminophen/ Hydrocodone Bitart ([place] (5/325)) 1 tab Q4H PRN PO pain Last administered on 11/13/16 21:34; Admin Dose 1 TAB; Start 11/13/16 at 18:00 Midodrine (Proamatine) 5 mg BID PO Last administered on 11/14/16 08:29; Admin Dose 5 MG; Start 11/13/16 at 21:00 Dextrose (D50w Syringe) 50 ml ONCE PRN IV BG LESS THAN 60; Start 11/14/16 at 09: 00; Stop 11/14/16 at 15:00 Nystatin (Nystatin Powder) 1 applic BID TOP ; Start 11/14/16 at 13:30 Linezolid 600 mg 600 mg BID PO ; Start 11/14/16 at 21:00 Aztreonam (Azactam 1gm/NS (Pmx)) 50 ml @ 100 mls/hr Q12 IVPB ; Start 11/14/16 at 21:00 Metronidazole (Flagyl) 500 mg Q8 NGT ; Start 11/14/16 at 14:00 Loratadine (Claritin) 10 mg DAILY PO ; Start 11/14/16 at 14:00 ALEKS RAINEY MD Nov 14, 2016 14:24
[2016-11-14] MEDS: metroNIDAZOLE 500 MG TAB NGT SCH ×2 (14:26→21:00)
--- NOTE | 2016-11-14 15:46 | PN ---
DATE: 11/14/2016 SUBJECTIVE DATA: The patient is lethargic, on Levophed drip, afebrile. She also developed generalized rash this morning. VITAL SIGNS: Her temperature is 97.4, pulse 84, respirations 28, blood pressure 87/60, saturation 96 percent on vent. LABORATORY DATA: WBC 19.9, hemoglobin 9, hematocrit 27.4, platelets 337,000, BUN 51, creatinine 1.05. Glucose in the morning was 33. Lactic acid 4.6. MICROBIOLOGY: Urine culture preliminary negative. Stool for C difficile came back negative. DIAGNOSTIC DATA: The patient had a CT of the abdomen and pelvis on November 13 that revealed large left pleural effusion, increased in size; mild loculated right pleural collection, grossly stable; bibasilar pulmonary consolidation, increased from prior CT; possibly atelectasis and/or pneumonia. Posterior perihepatic drainage catheters are in place. There has been near- complete resolution of previously seen loculated posterior perihepatic collections. Mild diffuse bowel wall thickening and mesenteric edema suggestive of mild enterocolitis. Urinary bladder wall appears circumferentially thickened, concerning for cystitis. G-tube and Shore catheter are in place. No bowel obstruction or perforation. Nonspecific fluid seen within endometrial cavity; consider ultrasound correlation. No evidence of biliary dilatation or cholecystitis. Indeterminate 3.2 cm cystic structure arising from the body of the pancreas, stable when compared to the prior exam. The patient also had ultrasound of the abdomen the same day that revealed a 3.6 cm simple-appearing cyst in the body of pancreas. Differential diagnosis includes pancreatic pseudocyst. Cystic neoplasm is also in differential. This is felt to be less likely. Small bilateral pleural effusions. Otherwise unremarkable study. Chest x-ray yesterday revealed diffuse bilateral lung infiltrates with mild vascular congestion. INDWELLING: Patient had PICC line placed yesterday. She has trach, PEG, Shore, intra-abdominal drainage catheters. ANTIMICROBIALS: She was started on: 1. Merrem. 2. Vancomycin. PHYSICAL EXAMINATION: GENERAL: This is a fragile, chronically ill-appearing, elderly woman, who is lethargic, in no distress. HEENT: Head atraumatic, normocephalic. Sclerae anicteric. Buccal mucosa dry. NECK: Supple. CHEST: Rise symmetrical. Breath sounds with scattered crackles. Diminished at the bases. HEART: S1, S2. ABDOMEN: Soft, bowel sounds present. EXTREMITIES: Without cyanosis, bilateral edema. SKIN: Severe anasarca and macular papular rash, generalized. ASSESSMENT: 1. Severe sepsis with shock and multisystem organ failure. 2. Bilateral pleural effusions and possible healthcare associated pneumonia. 3. 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 CSF fluid cultures on previous admission were negative, and sputum culture grew mold. 4. History of perforated colon repair with recurrent intra- abdominal abscess; status post drainage on October 23, 2016; resolved per repeat CT of the abdomen. 5. History of ventriculoperitoneal ([employer]FA[employer]) shunt. 6. History of pneumothorax, post thoracentesis. 7. Anemia and cachexia. ALLERGIES: PENICILLIN. POSSIBLY VANCOMYCIN, GIVEN RECENT REACTION. PLAN: Patient remains hemodynamically unstable. She developed reaction to antibiotics. We are going to discontinue vancomycin and Merrem. Start her on Zyvox, Flagyl, and aztreonam. Continue fluconazole high-dose for disseminated cryptococcosis. Start antihistamines. Follow recommendations of consultants. Of note, blood cultures on November 13 at [facility] were negative. Dictated By: Kathy Lopez NP /[facility]ina/[facility] /Document#: [id number]
[2016-11-14] MEDS ORDERED: SOD CHLORIDE 0.9% 1,000 ML IV ONE ×2 (16:30→22:00)
[2016-11-14] MEDS ORDERED: DEXTROSE 5%-0.9% NACL 1,000 ML IV SCH (16:30)
[2016-11-14] MEDS: FENTAnyl 50 MCG/ML VIAL IV PRN (16:42)
[2016-11-14] MEDS: PHENYLephrine 80 MG in DEXTROSE 5% 242 ML IV SCH (19:02)
[2016-11-14 19:20] LABS: ADD UMIC YES; UR ASCORBIC ACID NEGATIVE (NEGATIVE); UR BACTERIA FEW /HPF (NONE SEEN); UR BILIRUBIN (Dip) NEGATIVE (NEGATIVE); UR BLOOD (Dip) 1+ mg/dL (NEGATIVE); UR CLARITY CLOUDY (CLEAR); UR COLOR YELLOW (YELLOW); UR GLUCOSE (Dip) 2+ mg/dL (NEGATIVE); UR KETONES (Dip) NEGATIVE (NEGATIVE); UR LEUKOCYTE ESTERASE (Dip) 1+ Leu/ul (NEGATIVE); UR MUCUS FEW /HPF (NONE SEEN); UR NITRITE (Dip) NEGATIVE (NEGATIVE); UR NONSQUAMOUS EPITHELIAL CELL 1 /HPF (NONE SEEN); UR RBC 68 /HPF (0-5); UR RENAL EPITHELIAL CELL FEW /HPF (NONE SEEN); UR SPECIFIC GRAVITY (Dip) 1.023 (1.003-1.030); UR TOTAL PROTEIN (Dip) 3+ mg/dl (NEGATIVE); UR UROBILINOGEN (Dip) NEGATIVE (NEGATIVE)
[2016-11-14] MEDS: AZTREONAM 1 GM/NS (PMX) 50 ML IVPB SCH (20:47)
[2016-11-14] MEDS: ZYVOX 600 MG TAB PO SCH (20:47)
[2016-11-14] MEDS: FAMOTIDINE 20 MG TAB PO SCH (20:47)
[2016-11-14 22:22] LABS: ALBUMIN 1.4 g/dl (3.3-4.9); ALBUMIN/GLOBULIN RATIO 0.48; CALCIUM 7.5 mg/dl (8.4-10.2); CREATININE 0.95 mg/dl (0.44-1.00); MAGNESIUM 1.2 mg/dl (1.7-2.5); TOTAL PROTEIN 4.3 g/dl (6.1-8.1)
[2016-11-14 22:33] LABS: POTASSIUM 2.9 mmol/L (3.5-5.1)
[2016-11-14 22:47] LABS: AADO2 Arterial 110.7 mmHg (7.0-24.0); Allen Test ACCEPTAB; Arterial Base Excess -10.2 mmol/L (-3.0-3); Arterial COHb 0.2 % (0.0-3.0); Arterial Fraction of Oxyhgb 91.6 % (93.0-99.0); Arterial HCO3 14.8 mmol/L (22.0-26.0); Arterial MetHb 0.3 % (0.0-1.5); Arterial Total Hemglobin 10.6 g/dl (12.0-18.0); MODE VENT - AC
[2016-11-14] MEDS: VASOPRESSIN 60 UNIT in DEXTROSE 5% 57 ML IV SCH (22:49)
[2016-11-14] MEDS ORDERED: NA BICARBONATE 8.4% 50 ML SYG IV ONE (23:02)
--- NOTE | 2016-11-14 23:09 | RADRPT ---
PROCEDURE: Ultrasound chest CLINICAL INDICATION: Pleural effusion. Dyspnea. TECHNIQUE: Sonographic evaluation of the chest was performed. Images were obtained to assess for pleural effusion. Hoyt scale imaging was utilized. Images were reviewed on a high-resolution PACS workstation. COMPARISON: Chest radiograph 11/13/2016. FINDINGS: Trace loculated right pleural effusion is identified. No left pleural effusion is noted. IMPRESSION: 1. Trace loculated right pleural effusion. No left pleural effusion. RPTAT: HFN .Jose Raul Stein MD, Date Time Electronically viewed and signed by .Jose Raul Stein MD, on 11/14/2016 23:08 .N/
[2016-11-14] MEDS: ACCU-CHEK XX SCH (23:30)
[2016-11-14] MEDS ORDERED: INSULIN HUMAN REGULAR 100 UNIT in SOD CHLORIDE 0.9% 99 ML IV SCH (23:30)
[2016-11-15] VITALS (85 sets, daily range): BP systolic 0–120; BP diastolic 0–81; PULSE 0–150; RESP 0–39
[2016-11-15] MEDS ORDERED: MAGNESIUM SULFATE 2 GM/50 ML 50 ML IVPB ONE
[2016-11-15] MEDS ORDERED: SOD CHLORIDE 0.45% 1,000 ML IV SCH
[2016-11-15] MEDS ORDERED: POTASSIUM CHLORIDE 250 ML IVPB ONE
[2016-11-15] MEDS: ACCU-CHEK XX SCH ×3 (00:30→16:53)
[2016-11-15 00:54] LABS: ALBUMIN 1.8 g/dl (3.3-4.9); ALBUMIN/GLOBULIN RATIO 0.51; CALCIUM 9.2 mg/dl (8.4-10.2); CREATININE 1.17 mg/dl (0.44-1.00); POTASSIUM 3.6 mmol/L (3.5-5.1); TOTAL PROTEIN 5.3 g/dl (6.1-8.1)
[2016-11-15] MEDS: PHENYLephrine 80 MG in DEXTROSE 5% 242 ML IV SCH ×4 (03:18→15:28)
[2016-11-15] MEDS ORDERED: NA BICARBONATE 8.4% 50 ML SYG IV ONE (03:30)
[2016-11-15] MEDS ORDERED: SODIUM BICARBONATE (IV ADD) 150 MEQ in DEXTROSE 5% 850 ML IV SCH (03:30)
[2016-11-15] MEDS: metroNIDAZOLE 500 MG TAB NGT SCH ×2 (05:16→14:20)
[2016-11-15 06:39] LABS: ABNORMAL IP MESSAGE 1; HEMATOCRIT 30.5 % (37.0-47.0); HEMOGLOBIN 9.9 g/dl (12.0-16.0); MEAN CORPUSCULAR HEMOGLOBIN 28.9 pg (29.0-33.0); MEAN CORPUSCULAR HGB CONC 32.5 g/dl (32.0-37.0); MEAN CORPUSCULAR VOLUME 89.2 fl (82.0-101.0); MEAN PLATELET VOLUME 10.6 fl (7.4-10.4); NUCLEATED RED BLOOD CELLS% 2.5 /100WBC (0.0-0.0); PLATELET COUNT 306 10^3/UL (140-415); RED BLOOD COUNT 3.42 10^6/ul (4.20-5.40); RED CELL DISTRIBUTION WIDTH 16.9 % (11.5-14.5); WHITE BLOOD COUNT 21.9 10^3/ul (4.8-10.8)
[2016-11-15 06:53] LABS: POSITIVE DIFF @See below
[2016-11-15 07:21] LABS: CALCIUM 9.3 mg/dl (8.4-10.2); CREATININE 1.09 mg/dl (0.44-1.00); POTASSIUM 3.4 mmol/L (3.5-5.1)
[2016-11-15 08:39] LABS: AADO2 Arterial 117.6 mmHg (7.0-24.0); Allen Test ACCEPTAB; Arterial Base Excess -4.2 mmol/L (-3.0-3); Arterial COHb 0.3 % (0.0-3.0); Arterial HCO3 19.9 mmol/L (22.0-26.0); Arterial MetHb 0.3 % (0.0-1.5); Arterial Total Hemglobin 11.6 g/dl (12.0-18.0); MODE VENT - AC
--- NOTE | 2016-11-15 09:06 | PN ---
DATE: 11/15/2016 SUBJECTIVE DATA: The patient is critically ill, on multiple pressors. The patient has minimal urinary output. No other events noted. OBJECTIVE DATA: VITAL SIGNS: Blood pressure 107/27, respirations 30, pulse 79, temperature 98.6. HEENT: Head is normocephalic. NECK: Shows a trach. CARDIAC: Tachycardic. LUNGS: Showed diminished breath sounds at the base. ABDOMEN: Soft. Positive colostomy. EXTREMITIES: Negative for clubbing, cyanosis. DERMATOLOGICAL: Noted exfoliating skin. No new rashes. NEUROLOGIC: Limited exam. LABORATORY AND DIAGNOSTIC DATA: Sodium 138, potassium 3.4, BUN 49, creatinine 1.04. White count 21.9, hemoglobin 9.9, crit 30.5, platelet count is 306. ABG shows a pH of 7.314 with a pCO2 of 29, base excess is -10. The patient's lactic acid levels noted to be 7.1. ASSESSMENT AND PLAN: 1. Nonoliguric acute kidney injury with previously normal baseline creatinine. Etiology of acute kidney injury secondary to septic acute kidney injury, acute tubular necrosis, hemodynamics. At this point, continue current treatment plan. Continue supportive care. Renally dose medications. Avoid nephrotoxins. Continue pressor support. Continue intravenous fluids. Monitor closely. 2. Hyponatremia. Secondary to acute kidney injury, improved. Continue to monitor. 3. Hypokalemia. We will continue to monitor, replete with potassium chloride. 4. Metabolic acidosis. Secondary to lactic acidosis, acute kidney injury. The patient is currently on bicarbonate drip. We will check an ABG. If acidemia is improved, would discontinue bicarb drip. 5. Anemia. Monitor H and H levels. 6. Mineral bone disorder. Monitor calcium and phosphorus levels. 7. Ventilatory-dependent respiratory failure. Vent settings reviewed. ABGs reviewed. 8. Septic shock with disseminated cryptococcus. The patient is on broad-spectrum antibiotics, antifungal therapy, intravenous fluids. Continue. 9. Status post perforated colon repair, with colostomy, status post intra-abdominal abscess drainage. 10. Ventriculoperitoneal shunt, status post externalization with ligation. Please note, I spent over 30 minutes of critical care time with this patient. Dictated By: Agustin Sanchez DO /rhina/[facility]anda /Document#: [id number]
[2016-11-15 09:19] LABS: ANISOCYTOSIS 1+ (0-0); BASOPHILS % (M) 2 % (0-2); EOSINOPHILS % (M) 2 % (0-7); ERYTHROBLAST% (NRBC) (M) 1 % (0-0); GIANT THROMBO% (M) 4 % (0-0); MONOCYTES % (M) 11 % (0-11); MYELOCYTES % (M) 3 % (0-0); PLATELET ESTIMATE NORMAL; POIKILOCYTOSIS 3+ (0-0); POLYCHROMASIA 3+ (0-0); PROMYELOCYTES #M 2 10^3/ul (0-0); PROMYELOCYTES % (M) 10 % (0-0); REACTIVE LYMPHOCYTES% (M) 4 % (0-0)
[2016-11-15] MEDS: VASOPRESSIN 60 UNIT in DEXTROSE 5% 57 ML IV SCH (09:22)
[2016-11-15] MEDS: FLUCONAZOLE 200 MG TAB PO SCH (09:28)
[2016-11-15] MEDS: ZYVOX 600 MG TAB PO SCH (09:29)
[2016-11-15] MEDS: MIDODRINE 5 MG TAB PO SCH (09:29)
[2016-11-15] MEDS: BALSAM PERU/CASTOR OIL 60 GM TUBE TOP SCH (09:29)
[2016-11-15] MEDS: LANSOPRAZOLE 30 MG CAP GTB SCH (09:29)
[2016-11-15] MEDS: LORATADINE 10 MG TAB PO SCH (09:29)
[2016-11-15] MEDS: NYSTATIN 30 GM POWDER BTL TOP SCH (09:29)
[2016-11-15] MEDS ORDERED: POTASSIUM CHLORIDE 50 ML IVPB PRN (09:30)
[2016-11-15] MEDS: AZTREONAM 1 GM/NS (PMX) 50 ML IVPB SCH (09:55)
--- NOTE | 2016-11-15 09:55 | PN ---
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 Hospital stay was complicated sepsis, colon perforation with multiple abd fluid collections warranting drainage and drain placement, also recurrent respiratory failure warranting trach, pleural effusion with thora c/b by PTX, paroxysmal AFib, as well as diagnosis of cryptococcal pneumonia. She was transferred back to the hospital from [facility] for hypotension and leukocytosis. Labs here also reveal lactic acidosis. This clinical picture is concerning for septic shock, likely from pneumonia CV: increased pressor needs overnight, hold previous BP meds (aldactone, bumex) -cont midodrine Pulm: pulm consult for help with vent management thora too small to be drained per IR cont DAVI ID: appreciate ID assistance with abx -aztreonam and flagyll for bacterial coverage, high dose azole for cryptococcal pna -CDiff negative nephro: anion gap metabolic acidosis-->most likely lactic acidosis from sepsis -renal following -check lactic acid -no compelling indication for bicarb as would be more prudent to address underlying etio Endo: pt with wide BG fluctuations overnight: suspect 2/2 high tube feed residuals and glucose containing IVFs -STOP DEXTROSE INFUSION GI/biliary: general surgeon following Heme: monitor anemia, transfuse for hgb <7 FEN: cont tube feeds Prophx:SCDs LMWH, PPI, pain meds critical care time: 30 minutes Subjective 24 Hr Interval Summary Free Text/Dictation Pt doing worse overall. Increased pressor support overnight. Exam/Review of Systems Vital Signs Vitals Vital Signs Date Time Temp Pulse Resp B/P Pulse Ox O2 Delivery O2 Flow Rate FiO2 11/15/16 08:00 79 11/15/16 06:00 30 107/27 97 11/15/16 05:10 30 11/15/16 04:00 97.5 11/14/16 19:00 Mechanical Ventilator Intake and Output 11/14/16 11/14/16 11/15/16 15:00 23:00 07:00 Intake Total 813.556 ml 2004.94 ml 1429.45 ml Output Total 72 ml 70 ml 160 ml Balance 741.556 ml 1934.94 ml 1269.45 ml Exam trached coarse breath sounds no mrg R sided abd drain with minimal output (fluid collection has largely resolved on imaging) roca draining yellow urine Results Result Diagram: 11/15/16 0605 11/15/16 0605 Results 24 hrs Laboratory Tests Test 11/14/16 16:22 11/14/16 16:40 11/14/16 17:18 11/14/16 18:30 Bedside Glucose 63 L 257 H 123 Urine Color YELLOW Urine Clarity CLOUDY A Urine pH 7.0 Urine Specific [place] 1.023 Urine Ketones NEGATIVE Urine Nitrite NEGATIVE Urine Bilirubin NEGATIVE Urine Urobilinogen NEGATIVE Urine Leukocyte Esterase 1+ H Urine Microscopic RBC 68 H Urine Microscopic WBC 83 H Urine Renal Epithelial Cells FEW A Urine Bacteria FEW A Urine Mucus FEW A Urine Hemoglobin 1+ H Urine Random Creatinine 21.47 Urine Random Sodium 110 H Urine Glucose 2+ H Urine Total Protein Test 11/14/16 19:00 11/14/16 21:44 11/14/16 22:00 11/14/16 23:13 Lactic Acid Level 7.1 *H Blood Gas Specimen Source Blood arterial Arterial Blood Date Drawn 11/14/2016 10:40:11 PM Arterial Blood pH (Temp corrected) 7.314 L Arterial Blood pCO2 (Temp correct) 29.8 L Arterial Blood pO2 (Temp corrected) 68.2 L Arterial Blood HCO3 14.8 L Arterial Blood Base Excess -10.2 L Arterial Blood Oxygen Saturation 92.1 L Cain Test ACCEPTAB Arterial Blood Gas Puncture Site Left Radial Arterial Blood Carboxyhemoglobin 0.2 Arterial Blood Methemoglobin 0.3 Blood Gas A-a O2 Differential 110.7 H Oxyhemoglobin Percent 91.6 L Total Hemoglobin 10.6 L Blood Gas Temperature 37.0 Blood Gas Respiration Rate 12.0 Blood Gas Actual Respiration Rate 33 Blood Gas Modality VENT - AC FiO2 30.0 Blood Gas Tidal Volume 450.0 Blood Gas Low PEEP Setting 5.0 Blood Gas Notified Whom MA Blood Gas Notified Time 11/14/2016 10:47:52 PM Sodium Level 123 #L Potassium Level 2.9 *L Chloride Level 101 Carbon Dioxide Level 14 L Anion Gap 11 Blood Urea Nitrogen 40 #H Creatinine 0.95 Glucose Level 766 #*H Calcium Level 7.5 L Magnesium Level 1.2 L Total Bilirubin 0.0 L Direct Bilirubin 0.00 Indirect Bilirubin 0.0 Aspartate Amino Transf (AST/SGOT) 75 H Alanine Aminotransferase (ALT/SGPT) 53 Alkaline Phosphatase 615 H Total Protein 4.3 #L Albumin 1.4 L Globulin 2.90 Albumin/Globulin Ratio 0.48 Bedside Glucose 158 Test 11/14/16 23:52 11/15/16 06:05 11/15/16 07:49 11/15/16 08:23 Sodium Level 137 138 Potassium Level 3.6 3.4 L Chloride Level 106 106 Carbon Dioxide Level 20 L 18 L Anion Gap 15 17 H Blood Urea Nitrogen 50 H 49 H Creatinine 1.17 H 1.09 H Glucose Level 147 # 174 Calcium Level 9.2 9.3 Total Bilirubin 0.0 L Direct Bilirubin 0.00 Indirect Bilirubin 0.0 Aspartate Amino Transf (AST/SGOT) 122 H Alanine Aminotransferase (ALT/SGPT) 67 Alkaline Phosphatase 796 H Total Protein 5.3 #L Albumin 1.8 L Globulin 3.50 H Albumin/Globulin Ratio 0.51 White Blood Count 21.9 H Red Blood Count 3.42 L Hemoglobin 9.9 L Hematocrit 30.5 L Mean Corpuscular Volume 89.2 Mean Corpuscular Hemoglobin 28.9 L Mean Corpuscular Hemoglobin Concent 32.5 Red Cell Distribution Width 16.9 H Platelet Count 306 Mean Platelet Volume 10.6 H Neutrophils % Segmented Neutrophils % (Manual) 26 L Band Neutrophils % (Manual) 7 H Lymphocytes % Lymphocytes % (Manual) 35 Reactive Lymphocytes % (Manual) 4 H Monocytes % Monocytes % (Manual) 11 Eosinophils % Eosinophils % (Manual) 2 Basophils % Basophils % (Manual) 2 Myelocytes % (Manual) 3 H Promyelocytes % (Manual) 10 H Nucleated Red Blood Cells % 1 H Neutrophils # (Manual) 6.0 Band Neutrophils # 1.5 H Absolute Lymphocytes (Manual) 7.6 H Lymphocytes # Reactive Lymphocytes # 0.8 H Monocytes # Absolute Monocytes (Manual) 2.4 H Eosinophils # Basophils # Basophils # (Manual) 0.4 H Myelocytes # 0.6 H Promyelocytes # 2 H Nucleated Red Blood Cells # Platelet Estimate NORMAL Giant Platelets 4 H Polychromasia 3+ Poikilocytosis 3+ Anisocytosis 1+ Macrocytosis 1+ Blood Gas Specimen Source Blood arterial Arterial Blood Date Drawn 11/15/2016 8:20:06 AM Arterial Blood pH (Temp corrected) 7.395 Arterial Blood pCO2 (Temp correct) 33.2 L Arterial Blood pO2 (Temp corrected) 57.3 L Arterial Blood HCO3 19.9 L Arterial Blood Base Excess -4.2 L Arterial Blood Oxygen Saturation 90.5 L Cain Test ACCEPTAB Arterial Blood Gas Puncture Site Right Radial Arterial Blood Carboxyhemoglobin 0.3 Arterial Blood Methemoglobin 0.3 Blood Gas A-a O2 Differential 117.6 H Oxyhemoglobin Percent 90.0 L Total Hemoglobin 11.6 L Blood Gas Temperature 37.0 Blood Gas Respiration Rate 12.0 Blood Gas Actual Respiration Rate 34 Blood Gas Modality VENT - AC FiO2 30.0 Blood Gas Tidal Volume 450.0 Blood Gas Low PEEP Setting 5.0 Blood Gas Notified Whom JLD Blood Gas Notified Time 11/15/2016 8:39:48 AM Bedside Glucose 219 Medications Medications Current Medications Famotidine 20 mg 20 mg HS PO Last administered on 11/14/16 20:47; Admin Dose 20 MG; Start 11/13/16 at 21:00 Norepinephrine/ Dextrose (Levophed/D5W) 500 ml @ 1.875 mls/ hr TITRATE IV Last administered on 11/15/16 05:24; Admin Dose 56.25 MLS/HR; Start 11/13/16 at 17:30 IV Flush (NS 10 ml) 10 ml PRN PRN IV FLUSH LINE; Start 11/13/16 at 17:30 Fluconazole (Diflucan) 1,200 mg DAILY PO Last administered on 11/15/16 09:28; Admin Dose 1,200 MG; Start 11/14/16 at 09:00 Albuterol (Ventolin Hfa) 2 puff Q4H PRN INH SHORTNESS OF BREATH; Start 11/13/16 at 18:00 Lansoprazole (Prevacid) 30 mg DAILY GTB Last administered on 11/15/16 09:29; Admin Dose 30 MG; Start 11/14/16 at 09:00 Acetaminophen/ Hydrocodone Bitart ([place] (5/325)) 1 tab Q4H PRN PO pain Last administered on 11/13/16 21:34; Admin Dose 1 TAB; Start 11/13/16 at 18:00 Midodrine (Proamatine) 5 mg BID PO Last administered on 11/15/16 09:29; Admin Dose 5 MG; Start 11/13/16 at 21:00 Nystatin (Nystatin Powder) 1 applic BID TOP Last administered on 11/15/16 09:29 ; Admin Dose 1 APPLIC; Start 11/14/16 at 13:30 Linezolid 600 mg 600 mg BID PO Last administered on 11/15/16 09:29; Admin Dose 600 MG; Start 11/14/16 at 21:00 Aztreonam (Azactam 1gm/NS (Pmx)) 50 ml @ 100 mls/hr Q12 IVPB Last administered on 11/14/16 20:47; Admin Dose 100 MLS/HR; Start 11/14/16 at 21:00 Metronidazole (Flagyl) 500 mg Q8 NGT Last administered on 11/15/16 05:16; Admin Dose 500 MG; Start 11/14/16 at 14:00 Loratadine 10 mg 10 mg DAILY PO Last administered on 11/15/16 09:29; Admin Dose 10 MG; Start 11/14/16 at 14:00 Phenylephrine HCl/ Dextrose (Marcell-Syneph/D5W) 250 ml @ 18.75 mls/ hr TITRATE IV Last administered on 11/15/16 05:23; Admin Dose 56.25 MLS/HR; Start 11/14/16 at 15:00 Fentanyl 25 mcg 25 mcg Q2H PRN IV PAIN Last administered on 11/14/16 16:42; Admin Dose 25 MCG; Start 11/14/16 at 16:30 Vasopressin/ Dextrose (Vasostrict/D5W) 60 ml @ 1.2 mls/hr Q12H IV Last administered on 11/15/16 09:22; Admin Dose 2.4 MLS/HR; Start 11/14/16 at 22:00 Diagnostic Test (Pha) (Accu-Chek) 1 ea Q4 XX ; Start 11/15/16 at 13:00 ALEKS RAINEY MD Nov 15, 2016 09:49
[2016-11-15] MEDS ORDERED: PHENYLephrine 20MG IN 250 ML 250 ML ONE (09:59)
--- NOTE | 2016-11-15 10:59 | CONS ---
Date/Time of Note Date/Time of Note DATE: 11/15/16 TIME: 10:50 Assessment/Plan Assessment/Plan Additional Assessment/Plan Patient well-known to me who has been transferred back in the intensive care unit. Patient became hemodynamically compromised probable secondary to underlying infection questionable etiology at this point except possible luminary or GI source. She has had a recent long and extensive stay with multiple consultants prolonged course of IV antibiotics and initially was thought that she would to return for the better. She is now on 3 pressors maxed out, she is not intubated mental status waxes and wanes. I have put out phone call to her cousin and explained her current medical condition and the futility of continuing this level of care. It was very distraught and told me he would need to speak to other family members first before changing to comfort measures. I have discussed with Dr. Maldonado, Dr. Lockhart and Dr. Devine,. Patient's relative has my cell phone number is to call me back hopefully soon as patient appears very uncomfortable. Consultation Date/Type/Reason Admit Date/Time Nov 13, 2016 at 16:56 Initial Consult Date 11/14/16 Type of Consultation: Palliative care Exam/Review of Systems Vital Signs Vitals Vital Signs Date Time Temp Pulse Resp B/P Pulse Ox O2 Delivery O2 Flow Rate FiO2 11/15/16 08:00 79 11/15/16 06:00 30 107/27 97 11/15/16 05:10 30 11/15/16 04:00 97.5 11/14/16 19:00 Mechanical Ventilator Intake and Output 11/14/16 11/14/16 11/15/16 14:59 22:59 06:59 Intake Total 1085.431 ml 1946.28 ml 1574.36 ml Output Total 82 ml 55 ml 180 ml Balance 1003.431 ml 1891.28 ml 1394.36 ml Exam Constitutional: distress, frail, other (Noncommunicative, moaning groaning) Respiratory: congested cough, crackles/rales, diminished breath sounds, intercostal retraction Cardiovascular: No S3, No S4, No bruits, No diastolic murmur, No edema, No gallop, No irregular rhythm, No jugular venous distention (JVD), No murmurs/ extra sounds, No nl pulses, No other, No regular rate and rhythm, No rub, No systolic murmur Results Result Diagram: 11/15/16 0605 11/15/16 0605 Results 24 hrs Laboratory Tests Test 11/14/16 16:22 11/14/16 16:40 11/14/16 17:18 11/14/16 18:30 Bedside Glucose 63 L 257 H 123 Urine Color YELLOW Urine Clarity CLOUDY A Urine pH 7.0 Urine Specific [place] 1.023 Urine Ketones NEGATIVE Urine Nitrite NEGATIVE Urine Bilirubin NEGATIVE Urine Urobilinogen NEGATIVE Urine Leukocyte Esterase 1+ H Urine Microscopic RBC 68 H Urine Microscopic WBC 83 H Urine Renal Epithelial Cells FEW A Urine Bacteria FEW A Urine Mucus FEW A Urine Hemoglobin 1+ H Urine Random Creatinine 21.47 Urine Random Sodium 110 H Urine Glucose 2+ H Urine Total Protein Test 11/14/16 19:00 11/14/16 21:44 11/14/16 22:00 11/14/16 23:13 Lactic Acid Level 7.1 *H Blood Gas Specimen Source Blood arterial Arterial Blood Date Drawn 11/14/2016 10:40:11 PM Arterial Blood pH (Temp corrected) 7.314 L Arterial Blood pCO2 (Temp correct) 29.8 L Arterial Blood pO2 (Temp corrected) 68.2 L Arterial Blood HCO3 14.8 L Arterial Blood Base Excess -10.2 L Arterial Blood Oxygen Saturation 92.1 L Cain Test ACCEPTAB Arterial Blood Gas Puncture Site Left Radial Arterial Blood Carboxyhemoglobin 0.2 Arterial Blood Methemoglobin 0.3 Blood Gas A-a O2 Differential 110.7 H Oxyhemoglobin Percent 91.6 L Total Hemoglobin 10.6 L Blood Gas Temperature 37.0 Blood Gas Respiration Rate 12.0 Blood Gas Actual Respiration Rate 33 Blood Gas Modality VENT - AC FiO2 30.0 Blood Gas Tidal Volume 450.0 Blood Gas Low PEEP Setting 5.0 Blood Gas Notified Whom MA Blood Gas Notified Time 11/14/2016 10:47:52 PM Sodium Level 123 #L Potassium Level 2.9 *L Chloride Level 101 Carbon Dioxide Level 14 L Anion Gap 11 Blood Urea Nitrogen 40 #H Creatinine 0.95 Glucose Level 766 #*H Calcium Level 7.5 L Magnesium Level 1.2 L Total Bilirubin 0.0 L Direct Bilirubin 0.00 Indirect Bilirubin 0.0 Aspartate Amino Transf (AST/SGOT) 75 H Alanine Aminotransferase (ALT/SGPT) 53 Alkaline Phosphatase 615 H Total Protein 4.3 #L Albumin 1.4 L Globulin 2.90 Albumin/Globulin Ratio 0.48 Bedside Glucose 158 Test 11/14/16 23:52 11/15/16 06:05 11/15/16 07:49 11/15/16 08:23 Sodium Level 137 138 Potassium Level 3.6 3.4 L Chloride Level 106 106 Carbon Dioxide Level 20 L 18 L Anion Gap 15 17 H Blood Urea Nitrogen 50 H 49 H Creatinine 1.17 H 1.09 H Glucose Level 147 # 174 Calcium Level 9.2 9.3 Total Bilirubin 0.0 L Direct Bilirubin 0.00 Indirect Bilirubin 0.0 Aspartate Amino Transf (AST/SGOT) 122 H Alanine Aminotransferase (ALT/SGPT) 67 Alkaline Phosphatase 796 H Total Protein 5.3 #L Albumin 1.8 L Globulin 3.50 H Albumin/Globulin Ratio 0.51 White Blood Count 21.9 H Red Blood Count 3.42 L Hemoglobin 9.9 L Hematocrit 30.5 L Mean Corpuscular Volume 89.2 Mean Corpuscular Hemoglobin 28.9 L Mean Corpuscular Hemoglobin Concent 32.5 Red Cell Distribution Width 16.9 H Platelet Count 306 Mean Platelet Volume 10.6 H Neutrophils % Segmented Neutrophils % (Manual) 26 L Band Neutrophils % (Manual) 7 H Lymphocytes % Lymphocytes % (Manual) 35 Reactive Lymphocytes % (Manual) 4 H Monocytes % Monocytes % (Manual) 11 Eosinophils % Eosinophils % (Manual) 2 Basophils % Basophils % (Manual) 2 Myelocytes % (Manual) 3 H Promyelocytes % (Manual) 10 H Nucleated Red Blood Cells % 1 H Neutrophils # (Manual) 6.0 Band Neutrophils # 1.5 H Absolute Lymphocytes (Manual) 7.6 H Lymphocytes # Reactive Lymphocytes # 0.8 H Monocytes # Absolute Monocytes (Manual) 2.4 H Eosinophils # Basophils # Basophils # (Manual) 0.4 H Myelocytes # 0.6 H Promyelocytes # 2 H Nucleated Red Blood Cells # Platelet Estimate NORMAL Giant Platelets 4 H Polychromasia 3+ Poikilocytosis 3+ Anisocytosis 1+ Macrocytosis 1+ Blood Gas Specimen Source Blood arterial Arterial Blood Date Drawn 11/15/2016 8:20:06 AM Arterial Blood pH (Temp corrected) 7.395 Arterial Blood pCO2 (Temp correct) 33.2 L Arterial Blood pO2 (Temp corrected) 57.3 L Arterial Blood HCO3 19.9 L Arterial Blood Base Excess -4.2 L Arterial Blood Oxygen Saturation 90.5 L Cain Test ACCEPTAB Arterial Blood Gas Puncture Site Right Radial Arterial Blood Carboxyhemoglobin 0.3 Arterial Blood Methemoglobin 0.3 Blood Gas A-a O2 Differential 117.6 H Oxyhemoglobin Percent 90.0 L Total Hemoglobin 11.6 L Blood Gas Temperature 37.0 Blood Gas Respiration Rate 12.0 Blood Gas Actual Respiration Rate 34 Blood Gas Modality VENT - AC FiO2 30.0 Blood Gas Tidal Volume 450.0 Blood Gas Low PEEP Setting 5.0 Blood Gas Notified Whom JLD Blood Gas Notified Time 11/15/2016 8:39:48 AM Bedside Glucose 219 Medications Medications Current Medications Famotidine 20 mg 20 mg HS PO Last administered on 11/14/16 20:47; Admin Dose 20 MG; Start 11/13/16 at 21:00 Norepinephrine/ Dextrose (Levophed/D5W) 500 ml @ 1.875 mls/ hr TITRATE IV Last administered on 11/15/16 05:24; Admin Dose 56.25 MLS/HR; Start 11/13/16 at 17:30 IV Flush (NS 10 ml) 10 ml PRN PRN IV FLUSH LINE; Start 11/13/16 at 17:30 Fluconazole (Diflucan) 1,200 mg DAILY PO Last administered on 11/15/16 09:28; Admin Dose 1,200 MG; Start 11/14/16 at 09:00 Albuterol (Ventolin Hfa) 2 puff Q4H PRN INH SHORTNESS OF BREATH; Start 11/13/16 at 18:00 Lansoprazole (Prevacid) 30 mg DAILY GTB Last administered on 11/15/16 09:29; Admin Dose 30 MG; Start 11/14/16 at 09:00 Acetaminophen/ Hydrocodone Bitart ([place] (5/325)) 1 tab Q4H PRN PO pain Last administered on 11/13/16 21:34; Admin Dose 1 TAB; Start 11/13/16 at 18:00 Midodrine (Proamatine) 5 mg BID PO Last administered on 11/15/16 09:29; Admin Dose 5 MG; Start 11/13/16 at 21:00 Nystatin (Nystatin Powder) 1 applic BID TOP Last administered on 11/15/16 09:29 ; Admin Dose 1 APPLIC; Start 11/14/16 at 13:30 Linezolid 600 mg 600 mg BID PO Last administered on 11/15/16 09:29; Admin Dose 600 MG; Start 11/14/16 at 21:00 Aztreonam (Azactam 1gm/NS (Pmx)) 50 ml @ 100 mls/hr Q12 IVPB Last administered on 11/15/16 09:55; Admin Dose 100 MLS/HR; Start 11/14/16 at 21:00 Metronidazole (Flagyl) 500 mg Q8 NGT Last administered on 11/15/16 05:16; Admin Dose 500 MG; Start 11/14/16 at 14:00 Loratadine 10 mg 10 mg DAILY PO Last administered on 11/15/16 09:29; Admin Dose 10 MG; Start 11/14/16 at 14:00 Phenylephrine HCl/ Dextrose (Marcell-Syneph/D5W) 250 ml @ 18.75 mls/ hr TITRATE IV Last administered on 11/15/16 05:23; Admin Dose 56.25 MLS/HR; Start 11/14/16 at 15:00 Fentanyl 25 mcg 25 mcg Q2H PRN IV PAIN Last administered on 11/14/16 16:42; Admin Dose 25 MCG; Start 11/14/16 at 16:30 Vasopressin/ Dextrose (Vasostrict/D5W) 60 ml @ 1.2 mls/hr Q12H IV Last administered on 11/15/16 09:22; Admin Dose 2.4 MLS/HR; Start 11/14/16 at 22:00 Diagnostic Test (Pha) (Accu-Chek) 1 ea Q4 XX ; Start 11/15/16 at 13:00 YANETH VIDAL Nov 15, 2016 10:59
--- NOTE | 2016-11-15 11:07 | PN ---
Date/Time of Note Date/Time of Note DATE: 11/15/16 TIME: 10:57 Assessment/Plan Lines/Catheters IV Catheter Type (from [facility]): PICC Line Shore in Place (from Nrs): Yes Assessment/Plan Assessment/Plan [facility] Progress Note Date of Service: 11/15/2016 Place of service: [facility] ICU Today's Assessment & Plan: Septic shock with worsening clinical situation. Maxed out on 3 pressors. No obvious fluid to drain on the L chest cavity per US. I do not believe there are meaningful interventions at this point to reverse this situation. Despite extra- ordinary effort and care, patient unfortunately did not improve enough. At this point, I recommend changing course and do comfort care only. D/w ex- and team. D/w Dr. Meléndez who is in agreement. Will also attempt to call Guille, patient's family, later this afternoon. With above assessment, I recommended the following for today: 1. Recommend comfort cares Thank you again for your great care of this very pleasant patient and wonderful family. If there are any questions, please feel free to call me at [phone]. Nature of presenting problem: High severity Please note that, given the extensive number of diagnoses or management options , the extensive amount and/or complexity of data needed to be reviewed, and I risk of complications and/or morbidity or mortality, this qualifies as high complexity type of decision-making. Disclaimer: Inadvertent spelling and grammatical errors are likely due to EHR/ dictation software use and do not reflect on the quality of delivered patient care. Also, please note that the electronic time recorded on this node does not necessarily reflect the actual time of the visit. Updated Clinical Summary: A very pleasant 70-year-old lady without significant known past medical history other than a SENIOR SCRUM MASTER shunt placement many years ago which she did not remember or report, presenting with what appears to be a sigmoid colon abscess or pericolonic abscess, which seemed to be a complication of diverticulitis. S/p IR drainage 09/09/16 with removal of 20 cc pus and placement of a 10 Fr. pigtail catheter at [facility]. D/c home 09/12/16. Re-presented to [facility] ED 09/15/16 after being diverted from [facility] (due to internal disaster diversion) where CT was done showing adequate placement of the percutaneous drain near the sigmoid colon and decompressed sigmoid colon abscess, no obvious free air or significant spillage of stool in the abdominal cavity, and incidental finding of tail of the SENIOR SCRUM MASTER shunt in the pelvis (new from right upper quadrant position of the same drain on the CT scan at [facility]). Transfer to [facility] 09/15/2016 for further cares. S/p upsizing of drain to 12 Fr pigtail on 09/17/16 (communication with colon demonstrated; no obvious free communication to rest of peritoneal space). Patient decompensated in the early hours of the morning on 09/21/2016 and had to be transferred to the intensive care unit with need for endotracheal tube intubation, central line placement, and resuscitation for treatment of shock with lactic acidosis and evidence of peritonitis and free air on the new chest, abdomen, and pelvis CT scan. S/p a rather challenging sigmoid colectomy with performance of end colostomy (Reid's procedure), takedown of splenic flexure of the colon, lysis of adhesions (60 minutes), and abdominal lavage at [facility] on 09/21/16; diagnosis of colon ischemia (distal transverse colon and descending colon) during reentry through recent laparotomy incision with exploration of abdominal cavity, takedown of colostomy, completion left hemicolectomy with resection of distal transverse colon, lysis of adhesions, abdominal lavage, performance of an end colostomy [facility] 09/24/16. Extubated post op evening of 09/25/16. Decompensation with intubation and restart of pressors . Right-sided pneumothorax after drainage of right pleural effusion requiring chest tube placement 09/30/2016. Extubated 10/03/2016. Decompensation with reintubation 10/06/16. Tracheostomy and PEG placed. Perihepatic fluid collections drained 10/13/2016. Cryptococcal antigen found in the urine 2016. Antifungal therapy started. S/p new perc drain perihepatic 10/23/16. Transferred out of the ICU to telemetry on 11/01/2016. Dc'd from [facility] to [place], and then readmitted to [facility] 11/13/16 with septic shock. Comorbidities: 1. Perforated sigmoid colon (see below) 2. Status post ventriculoperitoneal shunt placement. 3. Status post prior hysterectomy and bilateral salpingo-oophorectomy through Pfannenstiel incision 4. S/p IR drainage 09/09/16 with removal of 20 cc pus and placement of a 10 Fr. pigtail catheter at [facility]. 5. Readmission to [facility] 09/15/16 with upsizing of drain to 12 Fr pigtail on (communication with colon demonstrated; no obvious free communication to rest of peritoneal space). Septic shock with multiorgan failure 09/21/2016 requiring ICU admission with intubation and pressors. 6. S/p a rather challenging sigmoid colectomy with performance of end colostomy (Reid's procedure), takedown of splenic flexure of the colon, lysis of adhesions (60 minutes), and abdominal lavage at [facility] on 09/21/16 7. Colon ischemia (distal transverse colon and descending colon) 8. S/p reentry through recent laparotomy incision with exploration of abdominal cavity, takedown of colostomy, completion left hemicolectomy with resection of distal transverse colon, lysis of adhesions, abdominal lavage, performance of an end colostomy [facility] 09/24/16 9. Stage I/II decubitus pressure ulcers (10/11/2016 [facility] ICU) Subjective: Remain on a ventilator with tracheostomy. Maxed out on 3 pressor. Tachypneic. Not very interactive on a purposeful way. Objective: Vitals: See below I's & O's: See below Exam: GENERAL: On exam, the patient was lying in bed and appeared to be breathing rapidly on the vent. No obvious acute distress. ABDOMEN: Soft, nontender and nondistended. Incisions are clean, dry and intact without any obvious evidence of underlying erythema, edema, discharge, or hernia. There are no peritoneal signs or guarding. Ostomy appears to be viable and productive with stool and air in the bag. Skin around the ostomy is pink. Perihepatic drains showing pus and minimal ss output. No bile. SKIN: Skin appears to be pink and feels warm to touch. NEUROLOGIC: Patient is awake, alert, and does not follow simple commands. Remains on the ventilator with tracheostomy tube. Labs: See below Exam/Review of Systems Vital Signs Vitals Vital Signs Date Time Temp Pulse Resp B/P Pulse Ox O2 Delivery O2 Flow Rate FiO2 11/15/16 10:15 79 34 97/15 91 Mechanical Ventilator Trach Collar 11/15/16 08:00 96.0 11/15/16 05:10 30 Intake and Output 11/14/16 11/14/16 11/15/16 15:00 23:00 07:00 Intake Total 813.556 ml 2004.94 ml 1429.45 ml Output Total 72 ml 70 ml 210 ml Balance 741.556 ml 1934.94 ml 1219.45 ml Results Result Diagram: 11/15/16 0605 11/15/16 0605 ALEXSANDER DUARTE M.D. Nov 15, 2016 11:07
[2016-11-15] MEDS: FENTAnyl 50 MCG/ML VIAL IV PRN (11:15)
--- NOTE | 2016-11-15 11:16 | PN ---
DATE: 11/15/2016 SUBJECTIVE DATA: Patient Beau continues three-vessel presses. Opens eyes, appears agitated, not consistently following commands. OBJECTIVE DATA: VITAL SIGNS: Temperature 98, pulse 79, blood pressure 100/30, O2 sat 96 percent on FiO2 of 100 percent. HEENT: Trach site clean. HEART: Tachycardic, S1 and S2, no heaves, rubs or murmurs. LUNGS: Diminished air entry bilaterally. ABDOMEN: Soft, nontender. No guarding or rebound. EXTREMITIES: No cyanosis, clubbing, edema +2. NEUROLOGICALLY: Generalized weakness. LABORATORY AND DIAGNOSTIC DATA: White count 21.9. Hemoglobin 9.0, platelets of 306,000. BUN 49, creatinine 1.09. ABG; pH 7.39, pCO2 33, PO2 57, bicarbonate 20. Chest x-ray was reviewed, shows patchy bilateral infiltrates. Ultrasound of the chest demonstrated trace loculated right pleural effusions. IMPRESSION: 1. Polymicrobial septic shock, refractory with now multiple vasopressors. 2. Vent dependent respiratory failure. 3. Nonoliguric renal failure. 4. Significant metabolic acidosis. 5. History of ventriculoperitoneal shunt status post externalization. PLAN: 1. Continue mechanical ventilation. 2. Continue multiple vasopressors. 3. Continue wound care. 4. DVT and GI prophylaxis. I had an extensive discussion with patient's at bedside and primary care physician. Overall prognosis is very poor. TIME SPENT: Critical care time 35 minutes. Dictated By: Hamilton Viramontes MD /rhina/cheikh /Document#: [id number]
[2016-11-15] MEDS ORDERED: DOPamine 1,600 MG in DEXTROSE 5% 210 ML IV SCH (12:30)
[2016-11-15] MEDS ORDERED: AMIKACIN IV PER PHARMACY XX SCH (13:00)
[2016-11-15] MEDS ORDERED: SOD CHLORIDE 0.9% IVPB SCH (15:00)
[2016-11-15] MEDS ORDERED: AMIKACIN IVPB SCH (15:00)
--- NOTE | 2016-11-15 17:24 | CONS ---
Date/Time of Note Date/Time of Note DATE: 11/15/16 TIME: 17:23 Assessment/Plan Assessment/Plan Additional Assessment/Plan Additional Assessment/Plan IMPRESSION: 1. Septic shock. Unable to maintain blood pressure despite for pressor support medication patient's systolic blood pressure is only 55 2. Status post colostomy for sigmoid abscess. 3. Multiple drains for fluid collection in the abdomen. 4. Status post G-tube. Unable to tolerate feeding so feeding was stopped 5. Vent dependent respiratory failure. 6. 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 7. Large pleural effusion on the left side and loculated effusion on the right side. 8. Bibasilar pulmonary infiltrates. 9. Enterocolitis. 10. Upper extremity DVT 11. High alkaline phosphatase Plan Continue antibiotic. Continue pressure support Resume G-tube feeding as per the dietitian and will start slowly Continue all supportive care. Patient clinically looks better than yesterday Aspiration precaution Prognosis remains poor Consultation Date/Type/Reason Admit Date/Time Nov 13, 2016 at 16:56 Initial Consult Date 11/14/16 Type of Consultation: Palliative care 24 HR Interval Summary Subjective hx not possible: pt non-verbal, pt critical Exam/Review of Systems Vital Signs Vitals Vital Signs Date Time Temp Pulse Resp B/P Pulse Ox O2 Delivery O2 Flow Rate FiO2 11/15/16 17:15 100 23 44/12 80 11/15/16 17:00 Mechanical Ventilator 11/15/16 16:00 100 11/15/16 15:30 99.2 Intake and Output 11/14/16 11/14/16 11/15/16 15:00 23:00 07:00 Intake Total 813.556 ml 2004.94 ml 1544.36 ml Output Total 72 ml 70 ml 210 ml Balance 741.556 ml 1934.94 ml 1334.36 ml Exam Constitutional: alert, oriented, well developed Psych: nl mood/affect, no complaints Head: atraumatic, normocephalic Eyes: EOMI, PERRL, nl conjunctiva, nl lids, nl sclera ENMT: nl external ears & nose, nl lips & teeth, nl nasal mucosa & septum Neck: non-tender, supple Respiratory: clear to auscultation, normal air movement Cardiovascular: nl pulses, regular rate and rhythm Gastrointestinal: nl liver, spleen, non-tender, soft Musculoskeletal: nl extremities to inspection, nl gait and stance Extremities: normal pulses Neurological: RETAIL REPRESENTATIVE II-XII intact, nl mental status, nl speech, nl strength Skin: nl turgor, No rash or lesions Lymph: nl lymph nodes Results Result Diagram: 11/15/1660411/15/16 06 Results 24 hrs Laboratory Tests Test 11/14/16 18:30 11/14/16 19:00 11/14/16 21:44 11/14/16 22:00 Urine Color YELLOW Urine Clarity CLOUDY A Urine pH 7.0 Urine Specific [place] 1.023 Urine Ketones NEGATIVE Urine Nitrite NEGATIVE Urine Bilirubin NEGATIVE Urine Urobilinogen NEGATIVE Urine Leukocyte Esterase 1+ H Urine Microscopic RBC 68 H Urine Microscopic WBC 83 H Urine Renal Epithelial Cells FEW A Urine Bacteria FEW A Urine Mucus FEW A Urine Hemoglobin 1+ H Urine Random Creatinine 21.47 Urine Random Sodium 110 H Urine Glucose 2+ H Urine Total Protein Lactic Acid Level 7.1 *H Blood Gas Specimen Source Blood arterial Arterial Blood Date Drawn 11/14/2016 10:40:11 PM Arterial Blood pH (Temp corrected) 7.314 L Arterial Blood pCO2 (Temp correct) 29.8 L Arterial Blood pO2 (Temp corrected) 68.2 L Arterial Blood HCO3 14.8 L Arterial Blood Base Excess -10.2 L Arterial Blood Oxygen Saturation 92.1 L Cain Test ACCEPTAB Arterial Blood Gas Puncture Site Left Radial Arterial Blood Carboxyhemoglobin 0.2 Arterial Blood Methemoglobin 0.3 Blood Gas A-a O2 Differential 110.7 H Oxyhemoglobin Percent 91.6 L Total Hemoglobin 10.6 L Blood Gas Temperature 37.0 Blood Gas Respiration Rate 12.0 Blood Gas Actual Respiration Rate 33 Blood Gas Modality VENT - AC FiO2 30.0 Blood Gas Tidal Volume 450.0 Blood Gas Low PEEP Setting 5.0 Blood Gas Notified Whom MA Blood Gas Notified Time 11/14/2016 10:47:52 PM Sodium Level 123 #L Potassium Level 2.9 *L Chloride Level 101 Carbon Dioxide Level 14 L Anion Gap 11 Blood Urea Nitrogen 40 #H Creatinine 0.95 Glucose Level 766 #*H Calcium Level 7.5 L Magnesium Level 1.2 L Total Bilirubin 0.0 L Direct Bilirubin 0.00 Indirect Bilirubin 0.0 Aspartate Amino Transf (AST/SGOT) 75 H Alanine Aminotransferase (ALT/SGPT) 53 Alkaline Phosphatase 615 H Total Protein 4.3 #L Albumin 1.4 L Globulin 2.90 Albumin/Globulin Ratio 0.48 Test 11/14/16 23:13 11/14/16 23:52 11/15/16 06:05 11/15/16 07:49 Bedside Glucose 158 Sodium Level 137 138 Potassium Level 3.6 3.4 L Chloride Level 106 106 Carbon Dioxide Level 20 L 18 L Anion Gap 15 17 H Blood Urea Nitrogen 50 H 49 H Creatinine 1.17 H 1.09 H Glucose Level 147 # 174 Calcium Level 9.2 9.3 Total Bilirubin 0.0 L Direct Bilirubin 0.00 Indirect Bilirubin 0.0 Aspartate Amino Transf (AST/SGOT) 122 H Alanine Aminotransferase (ALT/SGPT) 67 Alkaline Phosphatase 796 H Total Protein 5.3 #L Albumin 1.8 L Globulin 3.50 H Albumin/Globulin Ratio 0.51 White Blood Count 21.9 H Red Blood Count 3.42 L Hemoglobin 9.9 L Hematocrit 30.5 L Mean Corpuscular Volume 89.2 Mean Corpuscular Hemoglobin 28.9 L Mean Corpuscular Hemoglobin Concent 32.5 Red Cell Distribution Width 16.9 H Platelet Count 306 Mean Platelet Volume 10.6 H Neutrophils % Segmented Neutrophils % (Manual) 26 L Band Neutrophils % (Manual) 7 H Lymphocytes % Lymphocytes % (Manual) 35 Reactive Lymphocytes % (Manual) 4 H Monocytes % Monocytes % (Manual) 11 Eosinophils % Eosinophils % (Manual) 2 Basophils % Basophils % (Manual) 2 Myelocytes % (Manual) 3 H Promyelocytes % (Manual) 10 H Nucleated Red Blood Cells % 1 H Neutrophils # (Manual) 6.0 Band Neutrophils # 1.5 H Absolute Lymphocytes (Manual) 7.6 H Lymphocytes # Reactive Lymphocytes # 0.8 H Monocytes # Absolute Monocytes (Manual) 2.4 H Eosinophils # Basophils # Basophils # (Manual) 0.4 H Myelocytes # 0.6 H Promyelocytes # 2 H Nucleated Red Blood Cells # Platelet Estimate NORMAL Giant Platelets 4 H Polychromasia 3+ Poikilocytosis 3+ Anisocytosis 1+ Macrocytosis 1+ Blood Gas Specimen Source Blood arterial Arterial Blood Date Drawn 11/15/2016 8:20:06 AM Arterial Blood pH (Temp corrected) 7.395 Arterial Blood pCO2 (Temp correct) 33.2 L Arterial Blood pO2 (Temp corrected) 57.3 L Arterial Blood HCO3 19.9 L Arterial Blood Base Excess -4.2 L Arterial Blood Oxygen Saturation 90.5 L Cain Test ACCEPTAB Arterial Blood Gas Puncture Site Right Radial Arterial Blood Carboxyhemoglobin 0.3 Arterial Blood Methemoglobin 0.3 Blood Gas A-a O2 Differential 117.6 H Oxyhemoglobin Percent 90.0 L Total Hemoglobin 11.6 L Blood Gas Temperature 37.0 Blood Gas Respiration Rate 12.0 Blood Gas Actual Respiration Rate 34 Blood Gas Modality VENT - AC FiO2 30.0 Blood Gas Tidal Volume 450.0 Blood Gas Low PEEP Setting 5.0 Blood Gas Notified Whom JLD Blood Gas Notified Time 11/15/2016 8:39:48 AM Test 11/15/16 08:23 11/15/16 11:56 11/15/16 12:58 11/15/16 16:52 Bedside Glucose 219 193 161 Lactic Acid Level 8.9 *H Medications Medications Current Medications Famotidine 20 mg 20 mg HS PO Last administered on 11/14/16 20:47; Admin Dose 20 MG; Start 11/13/16 at 21:00 Norepinephrine/ Dextrose (Levophed/D5W) 500 ml @ 1.875 mls/ hr TITRATE IV Last administered on 11/15/16 14:18; Admin Dose 56.25 MLS/HR; Start 11/13/16 at 17:30 IV Flush (NS 10 ml) 10 ml PRN PRN IV FLUSH LINE; Start 11/13/16 at 17:30 Albuterol (Ventolin Hfa) 2 puff Q4H PRN INH SHORTNESS OF BREATH; Start 11/13/16 at 18:00 Lansoprazole (Prevacid) 30 mg DAILY GTB Last administered on 11/15/16 09:29; Admin Dose 30 MG; Start 11/14/16 at 09:00 Acetaminophen/ Hydrocodone Bitart ([place] (5/325)) 1 tab Q4H PRN PO pain Last administered on 11/13/16 21:34; Admin Dose 1 TAB; Start 11/13/16 at 18:00 Midodrine (Proamatine) 5 mg BID PO Last administered on 11/15/16 09:29; Admin Dose 5 MG; Start 11/13/16 at 21:00 Nystatin (Nystatin Powder) 1 applic BID TOP Last administered on 11/15/16 09:29 ; Admin Dose 1 APPLIC; Start 11/14/16 at 13:30 Linezolid 600 mg 600 mg BID PO Last administered on 11/15/16 09:29; Admin Dose 600 MG; Start 11/14/16 at 21:00 Aztreonam (Azactam 1gm/NS (Pmx)) 50 ml @ 100 mls/hr Q12 IVPB Last administered on 11/15/16 09:55; Admin Dose 100 MLS/HR; Start 11/14/16 at 21:00 Metronidazole (Flagyl) 500 mg Q8 NGT Last administered on 11/15/16 14:20; Admin Dose 500 MG; Start 11/14/16 at 14:00 Loratadine 10 mg 10 mg DAILY PO Last administered on 11/15/16 09:29; Admin Dose 10 MG; Start 11/14/16 at 14:00 Phenylephrine HCl/ Dextrose ([place]-Syneph/D5W) 250 ml @ 18.75 mls/ hr TITRATE IV Last administered on 11/15/16 15:28; Admin Dose 56.25 MLS/HR; Start 11/14/16 at 15:00 Fentanyl 25 mcg 25 mcg Q2H PRN IV PAIN Last administered on 11/15/16 11:15; Admin Dose 25 MCG; Start 11/14/16 at 16:30 Vasopressin/ Dextrose (Vasostrict/D5W) 60 ml @ 1.2 mls/hr Q12H IV Last administered on 11/15/16 09:22; Admin Dose 2.4 MLS/HR; Start 11/14/16 at 22:00 Diagnostic Test (Pha) 1 ea 1 ea Q4 XX ; Start 11/15/16 at 13:00 Dopamine HCl 1600 mg/Dextrose 250 ml @ 1.3 mls/hr TITRATE IV Last administered on 11/15/16 13:06; Admin Dose 3.27 MLS/HR; Start 11/15/16 at 12:30 Fluconazole (Diflucan 400 Mg/ NS (Pmx)) 200 ml @ 100 mls/hr BID IVPB ; Start at 09:00 Amikacin Sulfate AMIKACIN PER PHARMACY NOTE XX ; Start 11/15/16 at 13:00 Amikacin Sulfate/ Sodium Chloride (Amikacin/NS) 153.5 ml @ 150 mls/hr Q48H IVPB Last administered on 11/15/16t 15:17; Admin Dose 150 MLS/HR; Start 11/15/16 at 15:00 Miscellaneous Information (*Rx Drug Level Order Reminder*) 1 ONCE ONCE XX ; Start 11/16/16 at 01:00; Stop 11/16/16 at 01:01 LUIS CARLOS SOTELO MD Nov 15, 2016 17:24
--- NOTE | 2016-11-15 17:59 | PN ---
DATE: 11/15/2016 SUBJECTIVE DATA: The patient is doing poorly, hypotensive on multiple pressors. She is also hyperthermic and on blanket warmer. Obtunded. Family member at bedside. OBJECTIVE DATA: Temperature 97.7, pulse 87, respirations 31, blood pressure 87/38, saturation 91 on trach. LABORATORY AND DIAGNOSTIC DATA: WBC 21.9, H and H 9.9 and 30.5, platelets 306, bands 7. Sodium 138, potassium 3.4, BUN 49, creatinine 1.09. Urinalysis from admission was positive for leukocyte esterase, WBCs and few bacteria. MICROBIOLOGY: Blood and urine culture preliminary negative. Stool for C. diff negative. INDWELLING: Trach, PEG, [place], PICC line, intra-abdominal drainage catheter. ANTIMICROBIALS: The patient is on Zyvox, aztreonam, Flagyl and fluconazole. PHYSICAL EXAMINATION: GENERAL: This is a chronically ill-appearing, elderly woman, who is obtunded, in no distress. HEENT: Head atraumatic, normocephalic. Sclerae anicteric. Buccal mucosa dry. NECK: Supple. CHEST: Rise symmetrical. Breath sounds with bilateral scattered crackles. HEART: S1, S2. ABDOMEN: Distended, bowel sounds absent. EXTREMITIES: Mottled, cyanotic, with bilateral edema. SKIN: With anasarca, mottled and cyanotic. ASSESSMENT: 1. Severe sepsis with shock. 2. Healthcare-associated pneumonia. 3. Bilateral pleural effusions. 4. 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 5. History of perforated colon repair with intra-abdominal abscess drainage on October 23, 2016. 6. History of ventriculoperitoneal shunt. 7. History of pneumothorax status post thoracentesis. 8. Rash secondary to allergic reaction to vancomycin or meropenem. 9. Anemia. 10. Cachexia. 11. Encephalopathy. 12. Allergy to penicillin. PLAN: The patient is doing poorly. Blood pressure is low despite being maxed on multiple pressors. She is chemical code only. We are going to add Amikacin to the regimen. Continue Zyvox, aztreonam, Flagyl and high-dose fluconazole. Dictated By: Kathy Lopez NP /rhina/elvia /Document#: [id number]
[2016-11-15] MEDS ORDERED: morphine 2 MG INJ IV PRN (18:00)
[2016-11-15] MEDS ORDERED: DIMETHICONE STICK TOP PRN ×3 (18:00)
[2016-11-15] MEDS ORDERED: morphine (DRIP) 100 MG/100 ML 100 ML IV SCH (18:00)
[2016-11-15] MEDS ORDERED: ARTIFICIAL TEARS 15 ML OPH BOTH EYES PRN ×3 (18:00)
[2016-11-15] MEDS ORDERED: morphine LIQ (20 MG/ML PO SYG) PO PRN (18:00)
[2016-11-15] MEDS ORDERED: LORAZEPAM 2 MG INJ IV PRN (18:30)
--- NOTE | 2016-11-15 19:51 | DES ---
Date/Time of Note Date/Time of Note DATE: 11/15/16 TIME: 19:46 Discharge/ Summary Admission/Discharge Info Admit Date/Time Nov 13, 2016 at 16:56 Discharge Date/Time Final Diagnosis respiratory distress from sepsis from healthcare associated pneumonia Preliminary Cause of respiratory distress from sepsis from healthcare associated pneumonia Hx of Present Illness CC Sepsis HPI: 71 yo old female with recent prolonged stay at [facility] transferred to [place] 8.29 transferred back today for hypotension. Regarding pt's previous hospital stay, she was here mid September-->end october. 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 Hospital stay was complicated sepsis, colon perforation with multiple abd fluid collections warranting drainage and drain placement, also recurrent respiratory failure warranting trach, pleural effusion with thora c/b by PTX (chest tube removed 8.11), paroxysmal AFib. Pt also with remote h/o hydrocephalus, had VPS placed quite some time ago. During last admission drain externalized shortly after admission given abd infection. VPS subsequently ligated 8.11 by NS with no subsequent hydrocephalus appreciated. Pt had frequent hypotension for which she was started on midodrine. Pt with incidental finding of + serum cryptococcal Ag. Given that ET tube culture with mold, concern for systemic cryptococcus from primary pulmonary source. Pt started on antifungal therapy by ID. Pt noted to have RUE swelling, found to have RUE DVT on duplex, however ATC on hold given low hgb. During pt's week at [place], appears she was doing well until either last night or this morning. Pt pancultured this AM Progress note from yesterday notes that weaning was held 2/2 hypotension and anemia, Pt on FIO2 30%., hgb was 6.8. She was transfused 1 unit of blood last night. CT AP from yesterday with large L pleural effusion larger than prior, stable loculated R sided pleural effusion, bb pulm consolidation-->pna v atelctasis, diffuse bowel edema, resolution of loculated posterior perihepatic fluid collection with drain still in place, bladder wall thickening, ednometrial fluid , and no biliary pathology. Hospital Course 71 yo F with present prolonged stay at [facility] mid September-->october for sigmoid abscess for which she underwent sigmoid colectomy with end colostomy with adhesiolysis. Hospital stay was complicated sepsis, colon perforation with multiple abd fluid collections warranting drainage and drain placement, also recurrent respiratory failure warranting trach, pleural effusion with thora c/b by PTX, paroxysmal AFib, as well as diagnosis of cryptococcal pneumonia. She was transferred back to the hospital from [facility] 9[facility] for hypotension and leukocytosis. Labs here also reveal lactic acidosis. This clinical picture is concerning for septic shock, likely from pneumonia. Imaging with evidence of pneumonia, healthcare associated given prolonged hospitalization. Despite broad spectrum abx pt required over the 48 hours pt was at [facility], required higher and higher amounts of pressor support. Per family's request she was transitioned to comfort care 9.8 at 530 PM. She went into asystole and was pronounced at 1944. Family aware of pt's demise. Pending Labs/Cultures Laboratory Tests Test 11/14/16 21:44 11/14/16 22:00 11/14/16 23:13 11/14/16 23:52 Blood Gas Specimen Source Blood arterial Arterial Blood Date Drawn 11/14/2016 10:40:11 PM Arterial Blood pH (Temp corrected) 7.314 (7.350-7.450) Arterial Blood pCO2 (Temp correct) 29.8mmhg (35-45) Arterial Blood pO2 (Temp corrected) 68.2mmHG (80-90.0) Arterial Blood HCO3 14.8mmol/L (22.0-26.0) Arterial Blood Base Excess -10.2mmol/L (-3.0-3) Arterial Blood Oxygen Saturation 92.1mmHG (95.0-100.0) Cain Test ACCEPTAB Arterial Blood Gas Puncture Site Left Radial Arterial Blood Carboxyhemoglobin 0.2% (0.0-3.0) Arterial Blood Methemoglobin 0.3% (0.0-1.5) Blood Gas A-a O2 Differential 110.7mmHg (7.0-24.0) Oxyhemoglobin Percent 91.6% (93.0-99.0) Total Hemoglobin 10.6g/dl (12.0-18.0) Blood Gas Temperature 37.0C Blood Gas Respiration Rate 12.0 Blood Gas Actual Respiration Rate 33 Blood Gas Modality VENT - AC FiO2 30.0% Blood Gas Tidal Volume 450.0mL Blood Gas Low PEEP Setting 5.0cmH2O Blood Gas Notified Whom MA Blood Gas Notified Time 11/14/2016 10:47:52 PM Sodium Level 123mmol/L (135-144) 137mmol/L (135-144) Potassium Level 2.9mmol/L (3.5-5.1) 3.6mmol/L (3.5-5.1) Chloride Level 101mmol/L (97-110) 106mmol/L (97-110) Carbon Dioxide Level 14mmol/L (21-31) 20mmol/L (21-31) Anion Gap 11 (8-16) 15 (8-16) Blood Urea Nitrogen 40mg/dl (7-20) 50mg/dl (7-20) Creatinine 0.95mg/dl (0.44-1.00) 1.17mg/dl (0.44-1.00) Glucose Level 766mg/dl (70-220) 147mg/dl (70-220) Calcium Level 7.5mg/dl (8.4-10.2) 9.2mg/dl (8.4-10.2) Magnesium Level 1.2mg/dl (1.7-2.5) Total Bilirubin 0.0mg/dl (0.2-1.3) 0.0mg/dl (0.2-1.3) Direct Bilirubin 0.00mg/dl (0.00-0.20) 0.00mg/dl (0.00-0.20) Indirect Bilirubin 0.0mg/dl (0-1.1) 0.0mg/dl (0-1.1) Aspartate Amino Transf (AST/SGOT) 75IU/L (15-46) 122IU/L (15-46) Alanine Aminotransferase (ALT/SGPT) 53IU/L (13-69) 67IU/L (13-69) Alkaline Phosphatase 615IU/L (42-121) 796IU/L (42-121) Total Protein 4.3g/dl (6.1-8.1) 5.3g/dl (6.1-8.1) Albumin 1.4g/dl (3.3-4.9) 1.8g/dl (3.3-4.9) Globulin 2.90g/dl (1.3-3.2) 3.50g/dl (1.3-3.2) Albumin/Globulin Ratio 0.48 0.51 Bedside Glucose 158mg/dL (70-220) Test 11/15/16 06:05 11/15/16 07:49 11/15/16 08:23 11/15/16 11:56 White Blood Count 21.910^3/ul (4.8-10.8) Red Blood Count 3.4210^6/ul (4.20-5.40) Hemoglobin 9.9g/dl (12.0-16.0) Hematocrit 30.5% (37.0-47.0) Mean Corpuscular Volume 89.2fl (82.0-101.0) Mean Corpuscular Hemoglobin 28.9pg (29.0-33.0) Mean Corpuscular Hemoglobin Concent 32.5g/dl (32.0-37.0) Red Cell Distribution Width 16.9% (11.5-14.5) Platelet Count 20087^3/UL (140-415) Mean Platelet Volume 10.6fl (7.4-10.4) Neutrophils % % (39.0-77.0) Segmented Neutrophils % (Manual) 26% (39-77) Band Neutrophils % (Manual) 7% (0-4) Lymphocytes % % (15.0-51.0) Lymphocytes % (Manual) 35% (15-51) Reactive Lymphocytes % (Manual) 4% (0-0) Monocytes % % (0.0-11.0) Monocytes % (Manual) 11% (0-11) Eosinophils % % (0.0-7.0) Eosinophils % (Manual) 2% (0-7) Basophils % % (0.0-2.0) Basophils % (Manual) 2% (0-2) Myelocytes % (Manual) 3% (0-0) Promyelocytes % (Manual) 10% (0-0) Nucleated Red Blood Cells % 1% (0-0) Neutrophils # (Manual) 6.010^3/ul (1.7-7.5) Band Neutrophils # 1.510^3/ul (0.0-0.6) Absolute Lymphocytes (Manual) 7.610^3/ul (0.8-2.9) Lymphocytes # 10^3/ul (0.8-2.9) Reactive Lymphocytes # 0.810^3/ul (0.0-0.0) Monocytes # 10^3/ul (0.3-0.9) Absolute Monocytes (Manual) 2.410^3/ul (0.3-0.9) Eosinophils # 10^3/ul (0.0-0.5) Basophils # 10^3/ul (0.0-0.1) Basophils # (Manual) 0.410^3/ul (0.0-0.0) Myelocytes # 0.610^3/ul (0.0-0.0) Promyelocytes # 210^3/ul (0-0) Nucleated Red Blood Cells # 10^3/ul (0.0-0.0) Platelet Estimate NORMAL Giant Platelets 4% (0-0) Polychromasia 3+ (0-0) Poikilocytosis 3+ (0-0) Anisocytosis 1+ (0-0) Macrocytosis 1+ (0-0) Sodium Level 138mmol/L (135-144) Potassium Level 3.4mmol/L (3.5-5.1) Chloride Level 106mmol/L (97-110) Carbon Dioxide Level 18mmol/L (21-31) Anion Gap 17 (8-16) Blood Urea Nitrogen 49mg/dl (7-20) Creatinine 1.09mg/dl (0.44-1.00) Glucose Level 174mg/dl (70-220) Calcium Level 9.3mg/dl (8.4-10.2) Blood Gas Specimen Source Blood arterial Arterial Blood Date Drawn 11/15/2016 8:20:06 AM Arterial Blood pH (Temp corrected) 7.395 (7.350-7.450) Arterial Blood pCO2 (Temp correct) 33.2mmhg (35-45) Arterial Blood pO2 (Temp corrected) 57.3mmHG (80-90.0) Arterial Blood HCO3 19.9mmol/L (22.0-26.0) Arterial Blood Base Excess -4.2mmol/L (-3.0-3) Arterial Blood Oxygen Saturation 90.5mmHG (95.0-100.0) Cain Test ACCEPTAB Arterial Blood Gas Puncture Site Right Radial Arterial Blood Carboxyhemoglobin 0.3% (0.0-3.0) Arterial Blood Methemoglobin 0.3% (0.0-1.5) Blood Gas A-a O2 Differential 117.6mmHg (7.0-24.0) Oxyhemoglobin Percent 90.0% (93.0-99.0) Total Hemoglobin 11.6g/dl (12.0-18.0) Blood Gas Temperature 37.0C Blood Gas Respiration Rate 12.0 Blood Gas Actual Respiration Rate 34 Blood Gas Modality VENT - AC FiO2 30.0% Blood Gas Tidal Volume 450.0mL Blood Gas Low PEEP Setting 5.0cmH2O Blood Gas Notified Whom JLD Blood Gas Notified Time 11/15/2016 8:39:48 AM Bedside Glucose 219mg/dL (70-220) Lactic Acid Level 8.9mmol/L (0.5-2.0) Test 11/15/16 12:58 11/15/16 16:52 Bedside Glucose 193mg/dL (70-220) 161mg/dL (70-220) ALEKS RAINEY MD Nov 15, 2016 19:51
[2016-11-16] MEDS ORDERED: FLUCONAZOLE 400 MG/NS (PMX) 200 ML IVPB SCH (09:00)
[2016-11-18 16:06] LABS: MICROALBUMIN 201.2 mg/dL
== END 2016-11-15 19:44 | disposition expired | DRG 871 ==
LOC: E/R 13:49 → ICU 16:56
PROVIDERS: ADMIT Internal Medicine; ATTEND Internal Medicine
PROC: 5A1945Z Respiratory Ventilation, 24-96 Consecutive Hours (ICD-10-PCS; principal; 2016-11-13)
PROC: 02H633Z Insertion of Infusion Device into Right Atrium, Percutaneous Approach (ICD-10-PCS; 2016-11-13)
PROC: 06H033Z Insertion of Infusion Device into Inferior Vena Cava, Percutaneous Approach (ICD-10-PCS; 2016-11-13)
PROC: 02HV33Z Insertion of Infusion Device into Superior Vena Cava, Percutaneous Approach (ICD-10-PCS; 2016-11-13)
DX: A41.9 Sepsis, unspecified organism (principal); R65.21 Severe sepsis with septic shock; N17.0 Acute kidney failure with tubular necrosis; J18.9 Pneumonia, unspecified organism; Z99.11 Dependence on respirator [ventilator] status; J90 Pleural effusion, not elsewhere classified; B45.7 Disseminated cryptococcosis; J96.10 Chronic respiratory failure, unspecified whether with hypoxia or hypercapnia; R64 Cachexia; E87.2 Acidosis; E87.1 Hypo-osmolality and hyponatremia; I48.0 Paroxysmal atrial fibrillation; D64.9 Anemia, unspecified; Y95 Nosocomial condition; K52.9 Noninfective gastroenteritis and colitis, unspecified; E87.6 Hypokalemia; Z66 Do not resuscitate; Z68.28 Body mass index [BMI] 28.0-28.9, adult; Z88.0 Allergy status to penicillin; Z93.1 Gastrostomy status; Z93.3 Colostomy status; Z98.2 Presence of cerebrospinal fluid drainage device
CPT/HCPCS: 36569; 36600; 71010; 76604; 76937; 80048; 80053; 81001; 81003; 82043; 82803; 82962; 83605; 83735; 84155; 84300; 84484; 85025; 85610; 85730; 87040; 87045; 87070; 87075; 87081; 87086; 89220; 93005; 94002; 94003; 96365; 96366; 96375; A4310; J0278; J1265; J1450; J1815; J2185; J2270; J2370; J3010; J3370; J3475; J3480; J7030; J7040; J7042; J7050; J7060; J7070; P9045